=== PATIENT | female | born 1965 | race Caucasian/White ===

== ENCOUNTER 2018-08-04 17:16 | Emergency (ER) | payer OTHER ==
[~2018-08-04] VITALS: Ht 160 cm; Wt 115.7 kg
[~2018-08-04 17:16] MED LIST: ADVAIR 500-501 EACH INH; ALBUTEROL S5 MG/1 ML INH; DIFLUCAN100 MG PO; ENALAPRIL MALEAT5 MG PO; GLIMEPIRIDE4 MG PO; INDOMETHACIN25 MG PO; LEVOXYL150 MCG PO; LIPITOR20 MG PO; METFORMIN HCL500 MG PO; NAPROSYN500 MG PO; PERCOCET 5-3251 EACH PO; PRILOSEC20 MG PO; SINGULAIR10 MG PO; TOPROL XL50 MG PO; TRAMADOL HCL50 MG PO; TRIAMTERENE-HC1 EAC2 PO; VENTOLIN HFA18 GM IH; VISTARIL50 MG PO
--- OUTSIDE RECORDS SUMMARY | 2018-08-04 17:20 | XMS ---
PreManage Notification: [place] MISHRA Security Supervisor Hot Dip Plating Events No recent Security Events currently on file [facility] There are no care providers on record at this time. Saleem has no Care Guidelines for this patient. Kelly VISIT COUNT (12 MO.) 1 [facility] TOTAL 1 NOTE: Visits indicate total known visits. ED/C VISIT TRACKING (12 MO.) 08/04/2018 17:17 [facility] [place] TYPE: Emergency COMPLAINT: - R ANKLE PAIN,INJURY INPATIENT VISIT TRACKING (12 MO.) No inpatient visits to display in this time frame [id number]
[2018-08-04] MEDS ORDERED: GABAPENTIN400 MG PO (17:43)
[2018-08-04] MEDS ORDERED: FERROUS SULFAT325 MG PO (17:43)
[2018-08-04] MEDS ORDERED: DOXAZOSIN MESYLA2 MG PO (17:45)
[2018-08-04] MEDS ORDERED: KETOROLAC TROME10 MG PO (18:36)
== END 2018-08-04 19:30 | disposition home or self-care (01) ==
LOC: ED 17:16
DX: S82.61XA Displaced fracture of lateral malleolus of right fibula, initial encounter for closed fracture (principal); E11.9 Type 2 diabetes mellitus without complications; J45.909 Unspecified asthma, uncomplicated; I10 Essential (primary) hypertension; E03.9 Hypothyroidism, unspecified; Z87.891 Personal history of nicotine dependence; Z88.0 Allergy status to penicillin; Z88.7 Allergy status to serum and vaccine; Z91.013 Allergy to seafood; Z79.899 Other long term (current) drug therapy; Z79.84 Long term (current) use of oral hypoglycemic drugs; X50.9XXA Other and unspecified overexertion or strenuous movements or postures, initial encounter
CPT/HCPCS: 73610; 99283-25

== ENCOUNTER 2019-02-19 18:38 | Emergency (ER) | payer OTHER ==
[~2019-02-19] VITALS: Ht 160 cm; Wt 115.7 kg
[~2019-02-19 18:38] MED LIST changes: +DOXAZOSIN MESYLA2 MG PO; +FERROUS SULFAT325 MG PO; +GABAPENTIN400 MG PO; +KETOROLAC TROME10 MG PO
--- OUTSIDE RECORDS SUMMARY | 2019-02-19 18:40 | XMS ---
PreManage Notification: [place] MISHRA Security Project Administrator Events No recent Security Events currently on file CRITERIA MET - [facility] CELINA Graham PHONE: [phone] Saleem has no Care Guidelines for this patient. Kelly VISIT COUNT (12 MO.) 2 [facility] TOTAL 2 NOTE: Visits indicate total known visits. 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 - Personal history of nicotine dependence - Other and unspecified overexertion or strenuous movements or postures, initial encounter - Allergy to seafood - Unspecified asthma, uncomplicated - Effusion, right ankle - Allergy status to serum and vaccine status - Displaced fracture of lateral malleolus of right fibula, initial encounter for closed fracture - Hypothyroidism, unspecified - Allergy status to penicillin - Other long-term (current) drug therapy INPATIENT VISIT TRACKING (12 MO.) No inpatient visits to display in this time frame [id number]
[2019-02-19] MEDS ORDERED: RANITIDINE HCL300 MG PO (18:56)
[2019-02-19] MEDS ORDERED: PERCOCET 5-3251 EACH PO (20:07)
== END 2019-02-19 20:21 | disposition home or self-care (01) ==
LOC: ED 18:38
DX: S93.401A Sprain of unspecified ligament of right ankle, initial encounter (principal); S90.821A Blister (nonthermal), right foot, initial encounter; I10 Essential (primary) hypertension; E03.9 Hypothyroidism, unspecified; J45.909 Unspecified asthma, uncomplicated; E11.9 Type 2 diabetes mellitus without complications; Z88.0 Allergy status to penicillin; Z91.030 Bee allergy status; Z88.7 Allergy status to serum and vaccine; Z79.84 Long term (current) use of oral hypoglycemic drugs; Z79.899 Other long term (current) drug therapy; X50.1XXA Overexertion from prolonged static or awkward postures, initial encounter
CPT/HCPCS: 73610; 99283

== ENCOUNTER 2019-11-11 11:20 | Inpatient (IN) | payer OTHER ==
[~2019-11-11] VITALS: Ht 160 cm; Wt 125.2 kg
--- OUTSIDE RECORDS SUMMARY | ~2019-11-11 | XMS | Encounter Summary ---
Demographics + + + | Address | [address] | | | [place] [address] | + + + | Home Phone | | + + + | Preferred Language | Unknown | + + + | Marital Status | Legally | + + + | Orthodoxy Affiliation | Unknown | + + + | Race | Unknown | + + + | Ethnic Group | Unknown | + + + Author + + + | Author | [facility] | | | and [place] | + + + | Organization | [facility] | | | and [...] Team Providers + +------+ + | Care Pipe Organ Mechanic Apprentice Name | Role | Phone | + +------+ + | Roberth Gaspar MD | PCP | | + +------+ + Reason for Visit + + + | Reason | Comments | + + + | Medication Refill | | + + + Encounter Details +--------+--------+ + + + | Date | Type | Department | Care Team | Description | +--------+--------+ + + + | 03/03/ | Refill | [facility] [place] | Oc Mooney, | Medication Refill | | 2017 | | PHYSIATRY [address] | MD [address] | | | | | [address] | [place], [place] | | | | | [place], [place] | [address] | | | | | [address] | | | | | | [phone] | | | +--------+--------+ + + + Social History + +-------+ [...] + + documented as of this encounter Plan of Treatment Not on filedocumented as of this encounter Visit Diagnoses Not on filedocumented in this encounter"
--- OUTSIDE RECORDS SUMMARY | ~2019-11-11 | XMS | Encounter Summary ---
Demographics + + + | Address | [address] | | | [place] [address] | + + + | Home Phone | | + + + | Preferred Language | Unknown | + + + | Marital Status | Legally | + + + | Pentecostalism Affiliation | Unknown | + + + | Race | Unknown | + + + | Ethnic Group | Unknown | + + + Author + + + | Author | [facility] | | | and [place] | + + + | Organization | [facility] | | | [...] Team Providers + +------+ + | Care Pot Annealer Name | Role | Phone | + +------+ + | Roberth Gaspar MD | PCP | | + +------+ + Encounter Details +--------+ + + + + | Date | Type | Department | Care Team | Description | +--------+ + + + + | 11/04/ | Orders Only | [facility] | Conversion | | | 2017 | | [facility]Y [place] | Transaction, | | | | | [address] | Provider Unknown | | | | | [address] | [phone] | | | | | [phone] | (Fax) | | | | | [phone] | | | +--------+ + + + [...] | + +--------+ + + + | EXTERNAL LAB: CBC | Routin | 10/16/2017 | | Results for this | | | e | 4:50 PM | | procedure are in the | | | | PDT | | results section. | + +--------+ + + + | LIPID PANEL | Routin | 11/04/2016 | | Results for this | | | e | 12:00 AM | | procedure are in the | | | | PDT | | results section. | + +--------+ + + + | VITAMIN B-12 | Routin | 11/04/2016 | | Results for this | | | e | 12:00 AM | | procedure are in the | | | | PDT | | results section. | + +--------+ + + + | MICROALBUMIN/CREATIN | Routin | 11/04/2016 | | Results for this | | INE RATIO, URINE | e | 12:00 AM | | procedure are in the | | TEST | | PDT | | results section. | + +--------+ + + + | T4, FREE | Routin | 11/04/2016 | | Results for this | | | e | 12:00 AM | | procedure are in the | | | | PDT | | results section. | + +--------+ + + + | HEMOGLOBIN A1C | Routin | 11/04/2016 | | Results for this | | | e | 12:00 AM | | procedure are in the | | | | PDT | | results section. | + +--------+ + + + | FOLATE | Routin | 11/04/2016 | | Results for this | | | e | 12:00 AM | | procedure are in the | | | | PDT | | results section. | + +--------+ + + + | COMPREHENSIVE | Routin | 11/04/2016 | | Results for this | | METABOLIC PANEL | e | 12:00 AM | | procedure are in the | | | | PDT | | results section. | + +--------+ + + + | IRON AND IRON | Routin | 10/30/2016 | | Results for this | | BINDING CAPACITY | e | 12:00 AM | | procedure are in the | | | | PDT | | results section. | + +--------+ + + + | FERRITIN | Routin | 10/30/2016 | | Results for this | | | e | 12:00 AM | | procedure are in the | | | | PDT | | results section. | + +--------+ + + + documented in this encounter Results External Lab: CBC (10/16/2017 4:50 PM PDT) + + + + + + | Component | Value | Ref Range | Performed | Pathologist | | | | | At | Signature | + + + + + + | WBC | 5.43 (A) | 3.8 - 5.1 10 | EXTERNAL | | | | | | LAB | | + + + + + + | Red Blood | 13.2 (A) | 4.5 - 11.0 10 | EXTERNAL | | | Cells | | | LAB | | | Counted | | | | | + + + + + + | Hemoglobin | 12.7 | 12 - 16 g/dL | EXTERNAL | | | | | | LAB | | + + + + + + | Hematocrit, | 40.7 | 35 - 45 % | EXTERNAL | | | POC | | | LAB | | + + + + + + | MCV | 74.9 (A) | 81 - 99 fL | EXTERNAL | | | | | | LAB | | + + + + + + | MCH | 23 (A) | 27 - 33 pg | EXTERNAL | | | | | | LAB | | + + + + + + | MCHC | 31 | 30 - 36 g/dL | EXTERNAL | | | | | | LAB | | + + + + + + | Platelet | 405 | 140 - 440 K/ L | EXTERNAL | | | Count | | | LAB | | | Plasma | | | | | + + + + + + | RDW-CV | 16.5 (A) | 10.5 - 15.0 % | EXTERNAL | | | | | | LAB | | + + + + + + | MPV | | fL | EXTERNAL | | | | | | LAB | | + + + + + + | Differentia | | | EXTERNAL | | | l Type | | | LAB | | + + + + + + | % Segmented | | % | EXTERNAL | | | | | | LAB | | | Neutrophils | | | | | + + + + + + | % | | % | EXTERNAL | | | Lymphocytes | | | LAB | | + + + + + + | % Monocytes | | % | EXTERNAL | | | | | | LAB | | + + + + + + | % | | % | EXTERNAL | | | Eosinophils | | | LAB | | + + + + + + | % Basophils | | % | EXTERNAL | | | | | | LAB | | + + + + + + | Absolute | | / L | EXTERNAL | | | Segmented | | | LAB | | | Neutrophils | | | | | + + + + + + | Absolute | | / L | EXTERNAL | | | Lymphocytes | | | LAB | | + + + + + + | Absolute | | / L | EXTERNAL | | | Monocytes | | | LAB | | + + + + + + | Absolute | | / L | EXTERNAL | | | Eosinophils | | | LAB | | + + + + + + | Absolute | | / L | EXTERNAL | | | Basophils | | | LAB | | + + + + + + + + | Specimen | + + | Blood specimen | | (specimen) | + + + +---------+ + + | Performing | Address | City/State/Zipcode | Phone Number | | Organization | | | | + +---------+ + + | EXTERNAL LAB | | | | + +---------+ + + Microalbumin/Creatinine Ratio, Urine (11/04/2016 12:00 AM PDT) + +-------+ + + + | Component | Value | Ref Range | Performed | Pathologist | | | | | At | Signature | + +-------+ + + + | ALBUMIN/CRE | 12.3 | 0 - 30 | EXTERNAL | | | ATININE | | | LAB | | | RATIO.URINE | | | | | | .ORD.MG/G | | | | | | (NATALIE) | | | | | | | | | | | | | | | | | + +-------+ + + + + + | Specimen | + + | Urine specimen | | (specimen) | + + + +---------+ + + | Performing | Address | City/State/Zipcode | Phone Number | | Organization | | | | + +---------+ + + | EXTERNAL LAB | | | | + +---------+ + + T4, Free (11/04/2016 12:00 AM PDT) + + + + + + | Component | Value | Ref Range | Performed | Pathologist | | | | | At | Signature | + + + + + + | FREE T4 | 1.71 (A) | 0.71 - 1.7 | EXTERNAL | | | (REF) | | | LAB | | + + + + + + + + | Specimen | + + | Blood specimen | | (specimen) | + + + +---------+ + + | Performing | Address | City/State/Zipcode | Phone Number | | Organization | | | | + +---------+ + + | EXTERNAL LAB | | | | + +---------+ + + Hemoglobin A1C (11/04/2016 12:00 AM PDT) + +-------+ + + + | Component | Value | Ref Range | Performed | Pathologist | | | | | At | Signature | + +-------+ + + + | Hemoglobin | 6.0 | % | EXTERNAL | | | A1c | | | LAB | | + +-------+ + + + + + | Specimen | + + | Blood specimen | | (specimen) | + + + +---------+ + + | Performing | Address | City/State/Zipcode | Phone Number | | Organization | | | | + +---------+ + + | EXTERNAL LAB | | | | + +---------+ + + Folate (11/04/2016 12:00 AM PDT) + +-------+ + + + | Component | Value | Ref Range | Performed | Pathologist | | | | | At | Signature | + +-------+ + + + | Folate | 18.09 | | EXTERNAL | | | | | | LAB | | + +-------+ + + + + + | Specimen | + + | Blood specimen | | (specimen) | + + + +---------+ + + | Performing | Address | City/State/Zipcode | Phone Number | | Organization | | | | + +---------+ + + | EXTERNAL LAB | | | | + +---------+ + + Vitamin B-12 (11/04/2016 12:00 AM PDT) + + + + + + | Component | Value | Ref Range | Performed | Pathologist | | | | | At | Signature | + + + + + + | VITAMIN | 209.9 (A) | 211 - 946 | EXTERNAL | | | B-12 | | | LAB | | + + + + + + + + | Specimen | + + | Blood specimen | | (specimen) | + + + +---------+ + + | Performing | Address | City/State/Zipcode | Phone Number | | Organization | | | | + +---------+ + + | EXTERNAL LAB | | | | + +---------+ + + Lipid Panel (11/04/2016 12:00 AM PDT) + +---------+ + + + | Component | Value | Ref Range | Performed | Pathologist | | | | | At | Signature | + +---------+ + + + | Cholesterol | 141 | mg/dL | EXTERNAL | | | | | | LAB | | + +---------+ + + + | Triglycerid | 208 (A) | 30 - 150 mg/dL | EXTERNAL | | | es | | | LAB | | + +---------+ + + + | HDL | 39.9 | mg/dl | EXTERNAL | | | | | | LAB | | + +---------+ + + + | LDL, | 60 | mg/dL | EXTERNAL | | | Calculated | | | LAB | | + +---------+ + + + | LDl/HDL | | | EXTERNAL | | | Ratio | | | LAB | | + +---------+ + + + | Chol/HDL | 3.5 | | EXTERNAL | | | Ratio | | | LAB | | + +---------+ + + + | VLDL | | mg/dL | EXTERNAL | | | | | | LAB | | + +---------+ + + + | Non HDL | | | EXTERNAL | | | Chol. | | | LAB | | | (LDL+VLDL) | | | | | + +---------+ + + + + + | Specimen | + + | Blood specimen | | (specimen) | + + + +---------+ + + | Performing | Address | City/State/Zipcode | Phone Number | | Organization | | | | + +---------+ + + | EXTERNAL LAB | | | | + +---------+ + + Comprehensive Metabolic Panel (11/04/2016 12:00 AM PDT) + +---------+ + + + | Component | Value | Ref Range | Performed | Pathologist | | | | | At | Signature | + +---------+ + + + | Glucose, | 151 (A) | 70 - 100 mg/dL | EXTERNAL | | | Fasting | | | LAB | | + +---------+ + + + | BUN | 16 | 6 - 23 mg/dL | EXTERNAL | | | | | | LAB | | + +---------+ + + + | Creatinine | 0.93 | 0.6 - 1.35 | EXTERNAL | | | | | mg/dL | LAB | | + +---------+ + + + | BUN/Creatin | 17.2 | 6.0 - 28.6 | EXTERNAL | | | ine Ratio | | | LAB | | + +---------+ + + + | Calcium | 8.5 | 8.4 - 10.2 | EXTERNAL | | | | | mg/dL | LAB | | + +---------+ + + + | Protein, | 5.9 (A) | 6.0 - 8.0 g/dL | EXTERNAL | | | Total | | | LAB | | + +---------+ + + + | Albumin | 3.3 (A) | 3.5 - 5.0 | EXTERNAL | | | | | | LAB | | + +---------+ + + + | Globulin | 2.6 | 1.8 - 3.5 | EXTERNAL | | | | | | LAB | | + +---------+ + + + | A/G Ratio | 1.3 | 1.1 - 2.4 | EXTERNAL | | | | | | LAB | | + +---------+ + + + | Bilirubin | 0.3 | 0.0 - 1.2 mg/dL | EXTERNAL | | | Total | | | LAB | | + +---------+ + + + | ALP, | 61 | 31 - 130 | EXTERNAL | | | External | | | LAB | | + +---------+ + + + | ALT | 11 | 7 - 52 U/L | EXTERNAL | | | | | | LAB | | + +---------+ + + + | AST | 10 (A) | 13 - 39 U/L | EXTERNAL | | | | | | LAB | | + +---------+ + + + | Na | 139 | 132 - 143 | EXTERNAL | | | | | mmol/L | LAB | | + +---------+ + + + | K | 4.5 | 3.5 - 5.1 | EXTERNAL | | | | | mmol/L | LAB | | + +---------+ + + + | Cl | 104 | 95 - 112 mmol/L | EXTERNAL | | | | | | LAB | | + +---------+ + + + | CO2 | 22 | 19 - 31 mmol/L | EXTERNAL | | | | | | LAB | | + +---------+ + + + | Anion Gap | 17.5 | 7 - 21 mmol/L | EXTERNAL | | | | | | LAB | | + +---------+ + + + | Estimated | 64 | mg/dL | EXTERNAL | | | GFR | | | LAB | | + +---------+ + + + + + | Specimen | + + | Blood specimen | | (specimen) | + + + +---------+ + + | Performing | Address | City/State/Zipcode | Phone Number | | Organization | | | | + +---------+ + + | EXTERNAL LAB | | | | + +---------+ + + Iron and Iron Binding Capacity (10/30/2016 12:00 AM PDT) + + + + + + | Component | Value | Ref Range | Performed | Pathologist | | | | | At | Signature | + + + + + + | Iron | 18.51 (A) | 37 - 160 | EXTERNAL | | | | | | LAB | | + + + + + + | Iron | 5.5 (A) | 20 - 55 | EXTERNAL | | | Saturation | | | LAB | | + + + + + + | TIBC | 339 | 245 - 400 | EXTERNAL | | | | | | LAB | | + + + + + + + + | Specimen | + + | Blood specimen | | (specimen) | + + + +---------+ + + | Performing | Address | City/State/Zipcode | Phone Number | | Organization | | | | + +---------+ + + | EXTERNAL LAB | | | | + +---------+ + + Ferritin (10/30/2016 12:00 AM PDT) + +-------+ + + + | Component | Value | Ref Range | Performed | Pathologist | | | | | At | Signature | + +-------+ + + + | Ferritin, | 18.08 | 13 - 150 ng/mL | EXTERNAL | | | External | | | LAB | | + +-------+ + + + + + | Specimen | + + | Blood specimen | | (specimen) | + + + +---------+ + + | Performing | Address | City/State/Zipcode | Phone Number | | Organization | | | | + +---------+ + + | EXTERNAL LAB | | | | + +---------+ + + documented in this encounter Visit Diagnoses Not on filedocumented in this encounter"
--- OUTSIDE RECORDS SUMMARY | ~2019-11-11 | XMS | Encounter Summary ---
Demographics + + + | Address | [address] | | | [place] [address] | + + + | Home Phone | | + + + | Preferred Language | Unknown | + + + | Marital Status | Legally | + + + | Restorationist Affiliation | Unknown | + + + | Race | Unknown | + + + | Ethnic Group | Unknown | + + + Author + + + | Author | [facility] | | | and [place] | + + + | Organization | [facility] | | | and [...] Team Providers + +------+ + | Care Systems Support Specialist Name | Role | Phone | + +------+ + | Roberth Gaspar MD | PCP | | + +------+ + Reason for Visit + + + | Reason | Comments | + + + | Medication Refill | | + + + Encounter Details +--------+ + + + + | Date | Type | Department | Care Team | Description | +--------+ + + + + | 05/18/ | Telephone | [facility] [place] | Oc Mooney, | Medication Refill | | 2017 | | PHYSIATRY [address] | MD [address] | | | | | [address] | [place], [place] | | | | | [place], [place] | [address] | | | | | [address] | | | | | | [phone] | | | +--------+ + + + [...]
--- OUTSIDE RECORDS SUMMARY | ~2019-11-11 | XMS | Encounter Summary ---
Demographics + + + | Address | [address] | | | [place] [address] | + + + | Home Phone | | + + + | Preferred Language | Unknown | + + + | Marital Status | Legally | + + + | Scientologist Affiliation | Unknown | + + + | Race | Unknown | + + + | Ethnic Group | Unknown | + + + Author + + + | Author | [facility] | | | and [place] | + + + | Organization | [facility] | | | [...] Providers + +------+ + | Care Medical Supervisor Name | Role | Phone | + +------+ + | Roberth Gaspar MD | PCP | | + +------+ + Encounter Details +--------+ + + + + | Date | Type | Department | Care Team | Description | +--------+ + + + + | 11/04/ | Orders Only | [facility] | Conversion | | | 2017 | | [facility]PH[facility]OLOGY [place] | Transaction, | | | | | [address] | Provider Unknown | | | | | [address] | [phone] | | | | | [address] | (Fax) | | | | | [phone] | | | +--------+ + + + [...]
--- OUTSIDE RECORDS SUMMARY | ~2019-11-11 | XMS | Encounter Summary ---
Demographics + + + | Address | [address] | | | [place] [address] | + + + | Home Phone | | + + + | Preferred Language | Unknown | + + + | Marital Status | Legally | + + + | Mosque Affiliation | Unknown | + + + | Race | Unknown | + + + | Ethnic Group | Unknown | + + + Author + + + | Author | [facility] | | | and [place] | + + + | Organization | [facility] | | [...] Team Providers + +------+ + | Care Comb Capper Name | Role | Phone | + +------+ + | Roberth Gaspar MD | PCP | | + +------+ + Encounter Details +--------+ + + + + | Date | Type | Department | Care Team | Description | +--------+ + + + + | 09/12/ | Documentati | [facility] | [place], | | | 2019 | on | NEPHROLOGY [place] | Jose Carlos Jha | | | | | [address] | [address] | | | | | [address] | | | | | | [place], [place] | | | | | | [address] | | | | | | [phone] | | | +--------+ + + + [...]
--- OUTSIDE RECORDS SUMMARY | ~2019-11-11 | XMS | Encounter Summary ---
Demographics + + + | Address | [address] | | | [place] [address] | + + + | Home Phone | | + + + | Preferred Language | Unknown | + + + | Marital Status | Legally | + + + | Mosque Affiliation | Unknown | + + + | Race | Unknown | + + + | Ethnic Group | Unknown | + + + Author + + + | Author | [facility] | | | and [place] | + + + | Organization | [facility] | | | [...] Team Providers + +------+ + | Care Route Rider Name | Role | Phone | + [...] | hand | [address] | | | | n | numbness | [address] | [place], | | | | | Hand | [place], | [place] [address] | | | | | weakness | [place] [address] | Phone: | | | | | History of | Phone: | [phone] | | | | | diabetes | [phone] | Fax: | | | | | mellitus | Fax: | [phone] | | | | | Procedures | [phone] | | | | | | DOS [...] 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[place], | | | | | degeneration | [address] | [place] [address] | | | | | , lumbar | [place], | Phone: | | | | | region | [place] | [phone] | | | | | Neuropathy | [address] | Fax: | | | | | | Phone: | [phone] | | | | | | [phone] | | | | | | | Fax: | | | | | | | [phone] | | +--------+--------+ + + + + Encounter Details +--------+---------+ + + + | Date | Type | Department | Care Team | Description | +--------+---------+ + + + | 05/04/ | Office | [facility] | Oc Mooney, | Bilateral hand | | 2015 | Visit | PHYSIATRY [address] | MD [address] | numbness (Primary | | | | [address] | [place] | Dx); Hand weakness; | | | | [place] | [address] | History of diabetes | | | | [address] | | mellitus; Brisk deep | | | | [phone] | | tendon reflexes | +--------+---------+ + [...] finger abduction bilaterally. 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
--- OUTSIDE RECORDS SUMMARY | ~2019-11-11 | XMS | Encounter Summary ---
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[place], | | | | | degeneration | [address] | [place] [address] | | | | | , lumbar | [place], | Phone: | | | | | region | [place] | [phone] | | | | | Neuropathy | [address] | Fax: | | | | | | Phone: | [phone] | | | | | | [phone] | | | | | | | Fax: | | | | | | | [phone] | | +--------+--------+ + + + + Encounter Details +--------+---------+ + + + | Date | Type | Department | Care Team | Description | +--------+---------+ + + + | 05/04/ | Office | [facility] | Oc Mooney, | Bilateral hand | | 2015 | Visit | PHYSIATRY [address] | MD [address] | numbness (Primary | | | | [address] | [place] | Dx); Hand weakness; | | | | [place] | [address] | History of diabetes | | | | [address] | | mellitus; Brisk deep | | | | [phone] | | tendon reflexes | +--------+---------+ + [...] finger abduction bilaterally. There is 4/5 hand associate merchandiser bilaterally Reflexes: 3+ brisk and symmetric over [...]
--- OUTSIDE RECORDS SUMMARY | ~2019-11-11 | XMS | Encounter Summary ---
Demographics + + + | Address | [address] | | | [place] [address] | + + + | Home Phone | | + + + | Preferred Language | Unknown | + + + | Marital Status | Legally | + + + | Jew Affiliation | Unknown | + + + | Race | Unknown | + + + | Ethnic Group | Unknown | + + + Author + + + | Author | [facility] | | | and [place] | + + + | Organization | [facility] | | [...] Team Providers + +------+ + | Care Customer Program Manager Name | Role | Phone | + +------+ + | Roberth Gaspar MD | PCP | | + +------+ + Encounter Details +--------+ + + + + | Date | Type | Department | Care Team | Description | +--------+ + + + + | 09/12/ | Orders Only | [facility] | Cesar Hart MD | Essential | | 2020 | | NEPHROLOGY [place] | [address] | hypertension, benign | | | | [address] | [address] [place], [place] | (Primary Dx); CKD | | | | [address] | [address] | (chronic kidney | | | | [place], [place] | | disease), stage III | | | | [address] | | (HCC) | | | | [phone] | | | +--------+ + + + [...]
--- OUTSIDE RECORDS SUMMARY | ~2019-11-11 | XMS | Encounter Summary ---
Demographics + + + | Address | [address] | | | [place] [address] | + + + | Home Phone | | + + + | Preferred Language | Unknown | + + + | Marital Status | Legally | + + + | Episcopalian Affiliation | Unknown | + + + | Race | Unknown | + + + | Ethnic Group | Unknown | + + + Author + + + | Author | [facility] | | | and [place] | + + + | Organization | [facility] | | [...] Team Providers + +------+ + | Care Bad Work Gatherer Name | Role | Phone | + [...] 2015 | | PHYSIATRY [address] | [address] | | | | | [address] | [place] | | | | | [place] | [address] | | | | | [address] | | | | | | [phone] | | | +--------+ + + + [...]
--- OUTSIDE RECORDS SUMMARY | ~2019-11-11 | XMS | Clinical Summary ---
Demographics + + + | Address | [address] | | | [place] [address] | + + + | Home Phone | | + + + | Preferred Language | Unknown | + + + | Marital Status | Legally | + + + | Latter-Day Affiliation | Unknown | + + + | Race | Unknown | + + + | Ethnic Group | Unknown | + + + Author + + + | Author | [facility] | | | and [place] | + + + | Organization | [facility] | | [...] Team Providers + +------+ + | Care Waterworks Chief Engineer Name | Role | Phone | [...] | | + + + +---------+------+------+-------+ | enalapril | Take 5 mg by mouth | | 0 | | | Activ | | (VASOTEC) 5 mg | Daily. | | | | | e | | tablet | | | | | | | + + + +---------+------+------+-------+ | raNITIdine | Take 300 mg by mouth | | 0 | | | Activ | | (ZANTAC) [...] | + + + +---------+------+------+-------+ | albuterol | Inhale 2 puffs into | | 0 | | | Activ | | (VENTOLIN HFA) 90 | the lungs every 6 | | | | | e | | mcg/puff inhaler | hours as needed for | | | | | | | | Wheezing. | | | | | | + + + +---------+------+------+-------+ | metFORMIN | Take 1,000 mg by | | 0 | | | Activ | | (GLUCOPHAGE) 500 mg | mouth 2 times daily | | | | | e | | tablet | (with breakfast & | | | | | | | | dinner). | | | | | | + + + +---------+------+------+-------+ | | Inhale 1 puff into | | 0 | | | Activ | | fluticasone-salmeter | the lungs Twice | | | | | e | | ol (ADVAIR) 500-50 | Daily. | | | | | | | mcg/puff diskus | | | | | | | | inhaler | | | | | | | + + + +---------+------+------+-------+ | | Take 1 tablet by | | 0 | | | Activ | | triamterene-hydrochl | mouth Daily. | | | | | e | | orothiazide | | | | | | | | (MAXZIDE) 75-50 mg | | | | | | | | per tablet | | | | | | | + + + +---------+------+------+-------+ | silver | Apply topically | | 0 | | | Activ | | sulfADIAZINE | Daily. | | | | | e | | (SILVADENE) 1% cream | | | | | | | + + + +---------+------+------+-------+ | levothyroxine | Take 176 mcg by | | 0 | | | Activ | | (SYNTHROID, | mouth every morning | | | | | e | | LEVOTHROID) 88 mcg | (before breakfast). | | | | | | | tablet | | | | | | | + + + +---------+------+------+-------+ | | Take 1 tablet by | | 0 | | | Activ | | oxyCODONE-acetaminop | mouth every 8 hours | | | | | e | | hen (PERCOCET) 5-325 | as needed for Pain. | | | | | | | mg per tablet | | | | | | | + + + +---------+------+------+-------+ | nystatin | as needed. | | 0 | 04/0 | | Activ | | (MYCOSTATIN) cream | | | | 4/20 | | e | | | | | | 17 | | [...] | + + + +---------+------+------+-------+ | | Apply topically 2 | | 0 | | | Activ | | clotrimazole-betamet | (two) times daily. | | | | | e | | hasone (LOTRISONE) | | | | | | | | cream | | | | | | | + + + +---------+------+------+-------+ | ferrous sulfate | Take 65 mg of iron | | 0 | | | Activ | | 324 (65 Fe) MG EC | by mouth daily with | | | | | e | | tablet | breakfast. | | | | [...] | | + + + +---------+------+------+-------+ | ALPRAZolam (XANAX) | take 1 to 2 tablets | | 0 | 01/2 | | Activ | | 0.25 mg tablet | by mouth prior to | | | 9/20 | | e | | | procedure | | | 19 | | | + + + +---------+------+------+-------+ | atorvaSTATin | take 1 tablet by | | 0 | 05/2 | | Activ | | (LIPITOR) 10 mg | mouth once daily | | | 20 | | e | | tablet | | | | 19 | | | + + + +---------+------+------+-------+ | | take 1 tablet by | | 0 | 06/3 | | Activ | | sulfamethoxazole-tri | mouth twice a day | | | 0/20 | | e | | methoprim (BACTRIM | | | | 19 | | | | DS) 800-160 mg per | | | | | | | | tablet [...] + + + +---------+------+------+-------+ | DULoxetine | Take 20 mg by mouth | | 0 | | | Activ | | (CYMBALTA) [address] | Daily. | | | | | e | | capsule | | | | | | | + + + +---------+------+------+-------+ Active Problems + + + | Problem | Noted Date | + + + | Reactive airways [...] + | 09/12/ | Orders Only | Nephrology | Cesar Hart MD | Essential | | 2019 | | | | hypertension, benign | | | | | | (Primary Dx); CKD | | | | | | (chronic kidney | | | | | | disease), stage III | | | | | | (HCC) | +--------+ + + + + | 09/12/ | Documentati | Nephrology | Jarrett, | | | 2019 | on | | Jose Carlos Jha | | | | | | Core Driller | | +--------+ + + + + from Last 3 Months Family History + + +------+ + | [...] recent travel history available. | + + Last Filed Vital Signs + + + + + | Vital Sign | Reading | Time Taken | Comments | + + + + + | Blood Pressure | 132/76 | 02/24/2018 3:02 PM | | | | | PDT | | + + + + + | Pulse | 97 | 02/24/2018 3:02 PM | | | | | PDT | | + + + + + | Temperature | 37 C (98.6 F) | 02/24/2018 3:02 PM | | | | | PDT | | + + + + + | Respiratory Rate | 18 | 01/05/2017 4:26 PM | | | | | PDT | | + + + + + | Oxygen Saturation | - | - | | + + + + + | Inhaled Oxygen | - | - | | | Concentration | | | | + + + + + | Weight | 119.7 kg (264 lb) | 02/24/2018 3:02 PM | | | | | PDT | | + + + + + | Height | 160 cm (5' 3") | 02/24/2018 3:02 PM | | | | | PDT | | + + + + + | Body Mass Index | 46.77 | 02/24/2018 3:02 PM | | | | | PDT | | + + + + + Plan of Treatment + + + + + | Health Maintenance | Due Date | Last Done | Comments | + + + + + | Vaccine: | | | | | Pneumococcal 19-64 | 3 | | | | (1 of 1 - PPSV23) | | | | + + + + + | Vaccine: | | | | | Dtap/Tdap/Td (1 - | 8 | | | | Tdap) | | [...] A1c | | 11/04/2016 | | | Screening | 7 | [...] filefrom Last 3 Months Insurance + +--------+ +--------+ [...] | [employer] | [employer] | [id number] | 06/28/19 | [phone] | | Medica | | MEDICAID HMO [...] | + +--------+ +--------+ + + | Petra Dangelo | Person | Self | [birth year] | | [address] | | | al/Christofer | | 1965 | [phone] | [place] | | | [place] | | | 2 (Home) | [address] | + +--------+ +--------+ + + Advance Directives + + + + + | Type | Date Recorded | Patient | Explanation | | | | Environmental Maintenance Worker | | + + + + + | Power of | | | | | Station Supervisor | | | | + + + + + | Advance | | | | | Directive | | | | + + + + +
--- OUTSIDE RECORDS SUMMARY | ~2019-11-11 | XMS | Clinical Summary ---
Demographics + + + | Address | [address] | | | [place] [address] | + + + | Home Phone [...] + | Author | [facility] | | | and [place] | + + + | Organization | [facility] | | | and [...] Team Providers + +------+ + | Care Wireless Team Member Name | Role | Phone | + [...] Jha | | | | | | Coldfusion | | +--------+ + + + + [...] | [employer] | [employer] | [id number] | 06/28/19 | [phone] | | Medica [...] [place] | | | 2 (Home) | [address] | + +--------+ +--------+ + + Advance Directives + + + + + | Type | Date Recorded | Patient | Explanation | | | | Core Finisher | | + + + + + | Power of | | | | | Lumpia Wrapper Maker | | | | + + + + + | Advance | | | | | Directive | | | | + + + + +
--- OUTSIDE RECORDS SUMMARY | ~2019-11-11 | XMS | Encounter Summary ---
Demographics + + + | Address | [address] | | | [place] [address] | + + + | Home Phone | | + + + | Preferred Language | Unknown | + + + | Marital Status | Legally | + + + | Adventist Affiliation | Unknown | + + + | Race | Unknown | + + + | Ethnic Group | Unknown | + + + Author + + + | Author | [facility] | | | and [place] | + + + | Organization | [facility] | | | [...] Team Providers + +------+ + | Care Grass Farmer Name | Role | Phone | + +------+ + | Roebrth Gaspar MD | PCP | | + +------+ + Encounter Details +--------+ + + + + | Date | Type | Department | Care Team | Description | +--------+ + + + + | 01/22/ | Orders Only | [facility] | Provider, | | | 2019 | | SYSTEM GENERIC OP | MD [address] | | | | | [address] | [place] | | | | | [address] [place], [place] | [place] [address] | | | | | [address] | | | | | | [phone] | | | +--------+ + + + [...]
--- OUTSIDE RECORDS SUMMARY | ~2019-11-11 | XMS | Encounter Summary ---
Demographics + + + | Address | [address] | | | [place] [address] | + + + | Home Phone | | + + + | Preferred Language | Unknown | + + + | Marital Status | Legally | + + + | Yazidism Affiliation | Unknown | + + + | Race | Unknown | + + + | Ethnic Group | Unknown | + + + Author + + + | Author | [facility] | | | and [place] | + + + | Organization | [facility] [...] Team Providers + +------+ + | Care Organ Recovery Coordinator Name | Role | Phone | + +------+ + | No, Unknownpcp | PCP | | + +------+ + Encounter Details +--------+ + + + + | Date | Type | Department | Care Team | Description | +--------+ + + + + | 01/07/ | [facility] | [facility] | Mookie Bustamante, | | | 2012 - | Encounter | MED CTR MED ONC | [address] | | | | | [address] | [place] | | | 01/11/ | | [place] [address] | [address] | | | 2012 | | [phone] | | | +--------+ + + + [...] Mookie Bustamante MD - 01/11/2013 9:47 [place] [address] Patient Name: PHOENIX DANGELO Provider: Mookie Bustamante MD Unit #: [id number] Location: [address] [place] [address] #: [id number] : 1965 ADMISSION DATE: 01/07/2013 DISCHARGE DATE: [...] was admitted to the hospital by Dr. Wes. She saw Dr. Cor lidya, chain pegger, who did beside debridement. He recommended that [...] was to have her go home with [place] home infusions. However, the patient says her father will not allow that. Thus, she will be going to the [facility] e. I did speak with Dr. Noe Gaspar on the phone on 01/10/2013. She needs to fol low up with him but she also should have the chain pegger to see her and I would say within s ix days. Ideally, you could have the chain pegger come to the alf. Check with Dr. Noe Gaspar which chain pegger he wants her to see. She has seen a chain pegger in the [facility]. DISPOSITION: The patient to be discharged to the alf in improved condition. DIET: Will be diabetic, low fat, low cholesterol. She should work with physical therapy and if you have a wound care nurse as well. She can ambulate but I would have her minimize pressure on her right forefoot where she has the [facility] er. CODE STATUS: FULL CODE. MEDICATIONS [...] Hypoglycemia protocol. We have one here but alf might have one but we include d ours. Glucoscans before meals. Again, she needs close followup with Dr. Noe Gaspar as well as contact Dr. Noe Jara [facility]'s office for which chain pegger to see and ideally the chain pegger should start seeing he r at the alf and have your wound care team see her as well in the alf. Time of discharge more than 30 minutes. DICTATED BY: Mookie Bustamante MD Internal Medicine JOB #: [id number] EXT JOB #:[id number] cc: Dr Noe Gaspar in [facility] <<Signature on File>> Mookie Bustamante MD0 01/13/13 [...] Performed At | + + + | [facility] | [place] | | Department [address] [facility] | [facility] | | [ rep [address]] [ rep [facility] | | [facility]] Signed | - IMAGING | | | | | Patient Name: PHOENIX DANGELO Physician: | | | SANDI.01 : 1965 Age: 47 Sex: F Unit #: [id number] | | | Exam Date: 01/10/13 Location: [address] [place] [place] [address] | | | Report #: [id number] Page: | | | %(RAD)RES..mtdd.print.filter("pg") of %(RAD) | | | RES..mtdd.print.filter("tpg") | | | | | | Accession Number: [id number]; [id number]; | | | [id number], [id number] PICC | | | LINE PLACEMENT CLINICAL [...] Transcribed | | | Date/Time: 01/10/2013 17:07 Psychology Professor: TRINY | | | <<Signature on File>> | | | Campbell | | | Eloise Ocasio MD01/11/13 1032 <Electronically signed by Campbell Navas | | | Amarjit KAPLAN> Campbell Ocasio MD 01/11/13829 | | | Psychology Professor: Chantel Qypqxabozkomn54/17/13829 | | | | | + + + + + + + + | Performing | Address | City/State/Zipcode | Phone Number | | Organization | | | | + + + + + | [facility] | [address] | [place] | [phone] | | [facility] | | [address] | | | - IMAGING | | | | + + + + + XR Chest PA or AP (01/11/2013 8:30 AM PDT) + + | Specimen | + + | | + + + + + | Narrative | Performed At | + + + | [facility] | [place] | | Department [address] [facility] | [facility] | | [ rep ct street1+2] [ rep [facility] | | st zip] Signed | - IMAGING | | | | | Patient Name: PHOENIX DANGELO Physician: | | | RAS. : 1965 Age: 47 Sex: F Unit #: [id number] | | | Exam Date: 01/10/13 Location: [address] [place] [address] | | | Report #: [id number] Page: | | | %(RAD)RES..mtdd.print.filter("pg") of %(RAD) | | | RES..mtdd.print.filter("tpg") | | | | | | Accession Number: [id number]; [id number]; | | | [id number], [id number], [id number], [id number] PICC | | | LINE PLACEMENT CLINICAL [...] Transcribed | | | Date/Time: 01/10/2013 17:07 Psychology Professor: | | | <<Signature on File>> | | | Paul Hightower | | | Eloise Ocasio MD01/11/13 1032 <Electronically signed by Campbell Navas | | | Amarjit KAPLAN> Campbell Ocasio MD 01/11/13 8981 | | | Psychology Professor: Chantel Rkcfejmduwicl20/17/13 0830 | | | | | + + + + + + + + | Performing | Address | City/State/Zipcode | Phone Number | | Organization | | | | + + + + + | [facility] | [address] | [place] | [phone] | | [facility] | | [address] | | | - IMAGING | | | | + + + + + XR Chest PA or AP (01/11/2013 8:30 AM PDT) + + | Specimen | + + | | + + + + + | Narrative | Performed At | + + + | [facility] | [place] | | Department [address] [facility] | [facility] | | [ rep ct street1+2] [ rep [facility] | | st zip] Signed | - IMAGING | | | | | Patient Name: PHOENIX DANGELO Physician: | | | SANDI.01 : 1965 Age: 47 Sex: F Unit #: [id number] | | | Exam Date: 01/10/13 Location: [address] [place] [address] | | | Report #: [id number] Page: | | | %(RAD)RES..mtdd.print.filter("pg") of %(RAD) | | | RES..mtdd.print.filter("tpg") | | | | | | Accession Number: [id number]; [id number]; | | | [id number], [id number], [id number], [id number] PICC | | | LINE PLACEMENT CLINICAL [...] Transcribed | | | Date/Time: 01/10/2013 17:07 Psychology Professor: | | | <<Signature on File>> | | | Campbell | | | Eloise Ocasio MD01/11/13 1032 <Electronically signed by Campbell Navas | | | Amarjit KAPLAN> Campbell Ocasio MD 01/11/13829 | | | Psychology Professor: [employer] Aqdknsfoglova08/17/13 0830 | | | | | + + + + + + + + | Performing | Address | City/State/Zipcode | Phone Number | | Organization | | | | + + + + + | [facility] | [address] | [place], [place] | [phone] | | [facility] | | [address] | | | - IMAGING | | | | + + + + + XR Chest PA or AP (01/10/2013 3:18 PM PDT) + + | Specimen | + + | | + + + + + | Narrative | Performed At | + + + | [facility] | [place] | | Department [address] [place] [address] | [facility] | | [ rep ct [address]] [ rep [facility] | | [facility]] Signed | - IMAGING | | | | | Patient Name: RAJESHSOLITARIOROMYPHOENIX Kilpatrick Physician: | | | CORDELIA. : 1965 Age: 47 Sex: F Unit #: [id number] | | | Exam Date: 01/10/13 Location: [address] [place] [address] | | | Report #: [id number] Page: | | | %(RAD)RES..mtdd.print.filter("pg") of %(RAD) | | | RES..mtdd.print.filter("tpg") | | | | | | Accession Number: [id number] | | | [id number], [id number], [id number] PICC LINE PLACEMENT | | | CLINICAL [...] Transcribed Date/Time: 01/10/2013 17:07 | | | Psychology Professor: <<Signature on File>> | | | | | | Campbell Ocasio MD01/10/13 4814 <Electronically signed by Campbell Navas | | | Amarjit KAPLAN> Campbell Ocasio MD 01/10/13 7620 | | | Psychology Professor: [employer] Capgifbsgqriv61/16/13 9383 | | | | | + + + + + + + + | Performing | Address | City/State/Zipcode | Phone Number | | Organization | | | | + + + + + | [facility] | [address] | [place] | [phone] | | [facility] | | [address] | | | - IMAGING | | [...] + | [facility] | [address] | [place] | [phone] | | [facility] | | [address] | | | - LABORATORY | | | | + + + + + | [facility] | [address] | [place] | | | [facility] | | [address] | | | - LABORATORY [...] | >60Comment: For | >60 mL/min/A | [facility] | | | GFR | -Americans, | [...] + | [facility] | [address] | [place], [place] | [phone] | | [facility] | | [address] | | | - LABORATORY | | | | + + + + + | [facility] | [address] | [place], [place] | | | [facility] | | [address] | | | - LABORATORY [...] + | [facility] | [address] | [place], [place] | [phone] | | [facility] | | [address] | | | - LABORATORY | | | | + + + + + | [facility] | [address] | [place], [place] | | | [facility] | | [address] | | | - LABORATORY [...] + | [facility] | [address] | [place], [place] | [phone] | | [facility] | | [address] | | | - LABORATORY | | | | + + + + + | [facility] | [address] | [place], [place] | | | [facility] | | [address], [facility] | | | - LABORATORY | | [...] + | [facility] | [address] | [place], [place] | [phone] | | [facility] | | [address] | | | - LABORATORY | | | | + + + + + | [facility] | [address] | [place], [place] | | | [facility] | | [address] [place] [address] | | | - LABORATORY | | [...] + | [facility] | [address] | [place] | [phone] | | [facility] | | [address] | | | - LABORATORY | | | | + + + + + | [facility] | [address] | [place], [place] | | | [facility] | | [address], [facility] | | | - LABORATORY | | [...] + | [facility] | [address] | [place], [place] | [phone] | | [facility] | | [address] | | | - LABORATORY | | | | + + + + + | [facility] | [address] | [place], [place] | | | [facility] | | Critical access hospital, [facility] | | | - LABORATORY | | [...] + | [facility] | [address] | [place] | [phone] | | [facility] | | [address] | | | - LABORATORY | | | | + + + + + | [facility] | [address] | [place] | | | [facility] | | [address] | | | - LABORATORY [...] [address] | [place] | [phone] | | [facility] | | [address] | | | - LABORATORY | | | | + + + + + | [facility] | [address] | [place] | | | [facility] | | [address], [facility] | | | - LABORATORY | | [...] + | [facility] | [address] | [place], [place] | [phone] | | [facility] | | [address] | | | - LABORATORY | | | | + + + + + | [facility] | [address] | [place], [place] | | | [facility] | | [id number] [place] [address] | | | - LABORATORY | | [...] | | | | | | [place] | | | | | | Rifampin [...] | | | | | | Standards [place] | | | | | | Rifampin [...] + | [facility] | [address] | [place] | [phone] | | [facility] | | [address] | | | - LABORATORY | | | | + + + + + | [facility] | [address] | [place] | | | [facility] | | [id number] [place] [address] | | | - LABORATORY | | | | + + + + + documented in this encounter Visit Diagnoses Not on filedocumented in this encounter
--- OUTSIDE RECORDS SUMMARY | ~2019-11-11 | XMS | Encounter Summary ---
Demographics + + + | Address | [address] | | | [place] [address] | + + + | Home Phone | | + + + | Preferred Language | Unknown | + + + | Marital Status | Legally | + + + | Episcopal Affiliation | Unknown | + + + | Race | Unknown | + + + | Ethnic Group | Unknown | + + + Author + + + | Author | [facility] | | | and [place] | + + + | Organization | [facility] | | [...] Team Providers + +------+ + | Care Scientific Glass Blower Name | Role | Phone | + +------+ + | Roberth Gaspar MD | PCP | | + +------+ + Encounter Details +--------+ + + + + | Date | Type | Department | Care Team | Description | +--------+ + + + + | 01/22/ | Orders Only | [facility] | Provider, | | | 2019 | | SYSTEM GENERIC OP | MD [address] | | | | | [address] | [place] | | | | | [address] [place], [place] | [place] [address] | | | | | [address] | | | | | | [phone] | | | +--------+ + + + [...]
--- OUTSIDE RECORDS SUMMARY | ~2019-11-11 | XMS | Encounter Summary ---
Demographics + + + | Address | [address] | | | [place] [address] | + + + | Home Phone | | + + + | Preferred Language | Unknown | + + + | Marital Status | Legally | + + + | Druze Affiliation | Unknown | + + + | Race | Unknown | + + + | Ethnic Group | Unknown | + + + Author + + + | Author | [facility] | | | and [place] | + + + | Organization | [facility] | | | and [...] Team Providers + +------+ + | Care Gas Meter Repairer Name | Role | Phone | [...] + + | 01/05/ | Office | [facility] [place] | Oc Mooney, | Peripheral | | 2017 | Visit | PHYSIATRY [address] | MD [address] | polyneuropathy | | | | [address] | [place], [place] | (Primary Dx); | | | | [place], [place] | [address] | Neuropathic pain; | | | | [address] | | Vitamin B12 | | | | [phone] | | deficiency; Angular | | | [...] encounter Patient Instructions Patient Instructions Donna Jara, Correctional Medicine Physician - 01/05/2017 4:00 PM PDTBegin the consumption [...] has no apparent deficits with short or rat exterminator memory. The cranial nerves appear grossly intact. Subjective sensory change in both hands, unchanged compared to 10/06/2016. 4/5 hand inspector missile bilaterally. Remainder of strength normal in major [...]
--- OUTSIDE RECORDS SUMMARY | ~2019-11-11 | XMS | Encounter Summary ---
Demographics + + + | Address | [address] | | | [place] [address] | + + + | Home Phone [...] Providers + +------+ + | Care Supervisor Pumping Station Name | Role | Phone | + +------+ + | Roberth Gaspar MD | PCP | | + +------+ + Encounter Details +--------+ + + + + | Date | Type | Department | Care Team | Description | +--------+ + + + + | 10/27/ | Orders Only | [facility] | Cesar Hart MD | | | 2018 | | NEPHROLOGY [place] | [address] [facility] | | | | | [address] | [address] [place], [place] | | | | | [address] [place], [place] | [address] | | | | | [address] | | | | | | [phone] | | | +--------+ + + + [...]
--- OUTSIDE RECORDS SUMMARY | ~2019-11-11 | XMS | Clinical Summary ---
Demographics + + + | Address | [address] | | | [place] [address] | + + + | Home Phone | | + + + | Preferred Language | Unknown | + + + | Marital Status | Single | + + + | Advent Affiliation | Unknown | + + + | Race | Unknown | + + + | Ethnic Group | Unknown | + + + Author + + + | Author | [facility] (Historical as of | | | 02-11-19) | + + + | Organization | [facility] (Historical as of | | | 02-11-19) | + + + | Address | Unknown | + + + | Phone | Unavailable | + + + Support +---------+ +---------+ + | Name | Relationship | Address | Phone | +---------+ +---------+ + | Kobe,Milana | ECON | Unknown | | +---------+ +---------+ + Care Team Providers + +------+ + | Care Drill Bit Sharpener Name | Role | Phone | + [...] CKD (chronic kidney disease), stage III ([facility] | 11/08/2017 | + + + | [...] +------+-------+ + | MEDICAID | [place] | [id number] | | | [address] | | | N | | | | [place] | | | [place] | | | | [address] | | | 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
--- OUTSIDE RECORDS SUMMARY | ~2019-11-11 | XMS | Encounter Summary ---
Demographics + + + | Address | [address] | | | [place] [address] | + + + | Home Phone | | + + + | Preferred Language | Unknown | + + + | Marital Status | Legally | + + + | Sikhism Affiliation | Unknown | + + + | Race | Unknown | + + + | Ethnic Group | Unknown | + + + Author + + + | Author | [facility] | | | and [place] | + + + | Organization | [facility] | | | [...] Team Providers + +------+ + | Care Custom Car Builder Name | Role | Phone | + +------+ + | Roberth Gaspar MD | PCP | | + +------+ + Encounter Details +--------+ + + + + | Date | Type | Department | Care Team | Description | +--------+ + + + + | 10/27/ | Orders Only | [facility] | Cesar Hart MD | | | 2018 | | NEPHROLOGY [place] | [address] [facility] | | | | | [address] | [address] [place], [place] | | | | | [address] [place], [place] | [address] | | | | | [address] | | | | | | [phone] | | | +--------+ + + + [...]
--- OUTSIDE RECORDS SUMMARY | ~2019-11-11 | XMS | Encounter Summary ---
Demographics + + + | Address | [address] | | | [place] [address] | + + + | Home Phone [...] Team Providers + +------+ + | Care Oracle Ebs Architect Name | Role | Phone | + +------+ + | No, Unknownpcp | PCP | | + +------+ + Encounter Details +--------+ + + + + | Date | Type | Department | Care Team | Description | +--------+ + + + + | 01/07/ | [facility] | [facility] | Mookie Bustamante, | | | 2012 - | Encounter | MED CTR MED ONC | [address] | | | | | [address] | [place] | | | 01/11/ | | [place] [address] | [address] | | | 2012 | | [phone] | | | +--------+ + + + [...] Mookie Bustamante MD - 01/11/2013 9:47 [place] [address] Patient Name: PHOENIX DANGELO Provider: Mookie Bustamante MD Unit #: [id number] Location: [address] [place] [address] #: [id number] : 1965 ADMISSION DATE: 01/07/2013 DISCHARGE DATE: [...] Dr. Wes. She saw Dr. Cor lidya, arts and humanities council director, who did beside debridement. He recommended that [...] was to have her go home with [facility]. However, the patient says her father will not allow that. Thus, she will be going to the [facility] e. I did speak with Dr. Noe Gaspar on the phone on 01/10/2013. She needs to fol low up with him but she also should have the arts and humanities council director to see her and I would say within s ix days. Ideally, you could have the arts and humanities council director come to the intermediate. Check with Dr. Noe Gaspar which arts and humanities council director he wants her to see. She has seen a arts and humanities council director in the [facility]. DISPOSITION: The patient to be discharged to the intermediate in improved condition. DIET: Will be diabetic, low fat, low cholesterol. She should work with physical therapy and if you have a wound care nurse as well. She can ambulate but I would have her minimize pressure on her right forefoot where she has the [facility] er. CODE STATUS: FULL CODE. MEDICATIONS 1. [...] as well as contact Dr. Noe Jara [facility]'s office for which arts and humanities council director to see and ideally the arts and humanities council director should start seeing he r at the intermediate and have your wound care team see her as well in the intermediate. Time of discharge more than 30 minutes. DICTATED BY: Mookie Bustamante MD Internal Medicine JOB #: [id number] EXT JOB #:[id number] cc: Dr Noe Gaspar in [facility] <<Signature on File>> Mookie Bustamante MD0 [...] Performed At | + + + | [facility] Diagnostic Imaging | [facility] | | Department [address] [facility] | [facility] | | [ rep [address]] [ rep [facility] | | [facility]] Signed | - IMAGING | | | | | Patient Name: PHOENIX DANGELO Physician: | | | SANDI.01 : 1965 Age: 47 Sex: F Unit #: [id number] | | | Exam Date: 01/10/13 Location: [address] [place] [address] | | | Report #: [id number] Page: | | | %(RAD)RES..mtdd.print.filter("pg") of %(RAD) | | | RES..mtdd.print.filter("tpg") | | | | | | Accession Number: [id number]; [id number]; | | | [id number], [id number], [id number], [id number] PICC | | | LINE PLACEMENT CLINICAL [...] Transcribed | | | Date/Time: 01/10/2013 17:07 Commercial Fisher: TRINY | | | <<Signature on File>> | | | Campbell | | | Eloise Ocasio MD01/11/13 1032 <Electronically signed by Campbell Navas | | | Amarjit KAPLAN> Campbell Ocasio MD 01/11/138[address] | | | Commercial Fisher: Chantel Ahnlrqqicxdqy55/17/13829 | | | | | + + + + + + + + | Performing | Address | City/State/Zipcode | Phone Number | | Organization | | | | + + + + + | [facility] | [address] | [place] | [phone] | | [facility] | | [address] | | | - IMAGING | | | | + + + + + XR Chest PA or AP (01/11/2013 8:30 AM PDT) + + | Specimen | + + | | + + + + + | Narrative | Performed At | + + + | [facility] Diagnostic [facility] | [facility] | | Department [address] [facility] | [facility] | | [ rep ct street1[address]] [ rep [facility] | | st zip] Signed | - IMAGING | | | | | Patient Name: PHOENIX DANGELO Physician: | | | RAS. : 1965 Age: 47 Sex: F Unit #: [id number] | | | Exam Date: 01/10/13 Location: [address] [place] [address] | | | Report #: [id number] Page: | | | %(RAD)RES..mtdd.print.filter("pg") of %(RAD) | | | RES..mtdd.print.filter("tpg") | | | | | | Accession Number: [id number]; [id number]; | | | [id number], [id number], [id number], [id number] PICC | | | LINE PLACEMENT CLINICAL [...] Transcribed | | | Date/Time: 01/10/2013 17:07 Commercial Fisher: | | | <<Signature on File>> | | | Paul Hightower | | | Eloise Ocasio MD01/11/13 1032 <Electronically signed by Campbell Navas | | | Amarjit KAPLAN> Campbell Ocasio MD 01/11/13 3704 | | | Commercial Fisher: Chantel Kblfuzkbktxta11/17/13 0830 | | | | | + + + + + + + + | Performing | Address | City/State/Zipcode | Phone Number | | Organization | | | | + + + + + | [facility] | [address] | [place] | [phone] | | [facility] | | [address] | | | - IMAGING | | | | + + + + + XR Chest PA or AP (01/11/2013 8:30 AM PDT) + + | Specimen | + + | | + + + + + | Narrative | Performed At | + + + | [facility] | [facility] | | Department [address] [facility] | [facility] | | [ rep ct street1+2] [ rep [facility] | | st zip] Signed | - IMAGING | | | | | Patient Name: PHOENIX DANGELO Physician: | | | SANDI.01 : 1965 Age: 47 Sex: F Unit #: [id number] | | | Exam Date: 01/10/13 Location: [address] [place] [address] | | | Report #: [id number] Page: | | | %(RAD)RES..mtdd.print.filter("pg") of %(RAD) | | | RES..mtdd.print.filter("tpg") | | | | | | Accession Number: [id number]; [id number]; | | | [id number], [id number], [id number], [id number] PICC | | | LINE PLACEMENT CLINICAL [...] Transcribed | | | Date/Time: 01/10/2013 17:07 Commercial Fisher: | | | <<Signature on File>> | | | Campbell | | | Eloise Ocasio MD01/11/13 1032 <Electronically signed by Campbell Navas | | | Amarjit KAPLAN> Campbell Ocasio MD 01/11/138[address] | | | Commercial Fisher: apiOmatx Xsciaaidaadea12/17/13 0830 | | | | | + + + + + + + + | Performing | Address | City/State/Zipcode | Phone Number | | Organization | | | | + + + + + | [facility] | [address] | [place], [place] | [phone] | | [facility] | | [address] | | | - IMAGING | | | | + + + + + XR Chest PA or AP (01/10/2013 3:18 PM PDT) + + | Specimen | + + | | + + + + + | Narrative | Performed At | + + + | [facility] | [facility] | | Department [address] [place] [address] | [facility] | | [ rep ct street1+[address]] [ rep [facility] | | [facility]] Signed | - IMAGING | | | | | Patient Name: RAJESHSOLITARIOROMYPHOENIX Kilpatrick Physician: | | | CORDELIA. : 1965 Age: 47 Sex: F Unit #: [id number] | | | Exam Date: 01/10/13 Location: [address] [place] [address] | | | Report #: [id number] Page: | | | %(RAD)RES..mtdd.print.filter("pg") of %(RAD) | | | RES..mtdd.print.filter("tpg") | | | | | | Accession Number: [id number] | | | [id number], [id number], [id number], [id number] PICC LINE PLACEMENT | | | CLINICAL [...] Transcribed Date/Time: 01/10/2013 17:07 | | | Commercial Fisher: <<Signature on File>> | | | | | | Campbell Ocasio MD01/10/13 3331 <Electronically signed by Campbell Navas | | | Amarjit KAPLAN> Campbell Ocasio MD 01/10/13 5651 | | | Commercial Fisher: apiOmatnahomi Msprlswnxewdh32/16/13 3275 | | | | | + + + + + + + + | Performing | Address | City/State/Zipcode | Phone Number | | Organization | | | | + + + + + | [facility] | [address] | [place] | [phone] | | [facility] | | [address] | | | - IMAGING | | [...] + | [facility] | [address] | [place] | [phone] | | [facility] | | [address] | | | - LABORATORY | | | | + + + + + | [facility] | [address] | [place] | | | [facility] | | [address] | | | - LABORATORY [...] | >60Comment: For | >60 mL/min/A | [facility] | | | GFR | -Americans, | [...] + | [facility] | [address] | [place], [place] | [phone] | | [facility] | | [address] | | | - LABORATORY | | | | + + + + + | [facility] | [address] | [place], [place] | | | [facility] | | [address] | | | - LABORATORY [...] + | [facility] | [address] | [place], [place] | [phone] | | [facility] | | [address] | | | - LABORATORY | | | | + + + + + | [facility] | [address] | [place], [place] | | | [facility] | | [email or web address] | | | - LABORATORY | | [...] + | [facility] | [address] | [place], [place] | [phone] | | [facility] | | [address] | | | - LABORATORY | | | | + + + + + | [facility] | [address] | [place], [place] | | | [facility] | | [address], [facility] | | | - LABORATORY | [...] + | [facility] | [address] | [place], [place] | [phone] | | [facility] | | [address] | | | - LABORATORY | | | | + + + + + | [facility] | [address] | [place], [place] | | | [facility] | | [address] [place] [address] | | | - LABORATORY | | [...] + | [facility] | [address] | [place] | [phone] | | [facility] | | [address] | | | - LABORATORY | | | | + + + + + | [facility] | [address] | [place], [place] | | | [facility] | | [address], [facility] | | | - LABORATORY | [...] + | [facility] | [address] | [place], [place] | [phone] | | [facility] | | [address] | | | - LABORATORY | | | | + + + + + | [facility] | [address] | [place], [place] | | | [facility] | | [facility], [facility] | | | - LABORATORY | [...] + | [facility] | [address] | [place] | [phone] | | [facility] | | [address] | | | - LABORATORY | | | | + + + + + | [facility] | [address] | [place] | | | [facility] | | [address] | | | - LABORATORY [...] [address] | [place] | [phone] | | [facility] | | [address] | | | - LABORATORY | | | | + + + + + | [facility] | [address] | [place] | | | [facility] | | [address], [facility] | | | - LABORATORY | [...] + | [facility] | [address] | [place], [place] | [phone] | | [facility] | | [address] | | | - LABORATORY | | | | + + + + + | [facility] | [address] | [place], [place] | | | [facility] | | [id number] [place] [address] | | | - LABORATORY | | [...] | | | | | | [place] | | | | | | Rifampin [...] | | | | | | [place] | | | | | | Rifampin [...] + | [facility] | [address] | [place] | [phone] | | [facility] | | [address] | | | - LABORATORY | | | | + + + + + | [facility] | [address] | [place] | | | [facility] | | [id number] [place] [address] | | | - LABORATORY | | | | + + + + + documented in this encounter Visit Diagnoses Not on filedocumented in this encounter
--- OUTSIDE RECORDS SUMMARY | ~2019-11-11 | XMS | Encounter Summary ---
Demographics + + + | Address | [address] | | | [place] [address] | + + + | Home Phone [...] Team Providers + +------+ + | Care Airworthiness Inspector Name | Role | Phone | + [...] PHYSIATRY [address] | MD [address] | | | | | [address] | [place] | | | | | [place], [place] | [address] | | | | | [address] | | | | | | [phone] | | | +--------+ + + + [...]
--- OUTSIDE RECORDS SUMMARY | ~2019-11-11 | XMS | Encounter Summary ---
Demographics + + + | Address | [address] | | | [place] [address] | + + + | Home Phone [...] Team Providers + +------+ + | Care Protozoologist Name | Role | Phone | + +------+ + | Roberth Gaspar MD | PCP | | + +------+ + Encounter Details +--------+ + + + + | Date | Type | Department | Care Team | Description | +--------+ + + + + | 11/04/ | Orders Only | [facility] | Conversion | | | 2017 | | NEPHROLOGY [place] | Transaction, | | | | | [address] | Provider Unknown | | | | | [address] [place] | [phone] | | | | | [address] | (Fax) | | | | | [phone] | | | +--------+ + + + [...]
--- OUTSIDE RECORDS SUMMARY | ~2019-11-11 | XMS | Encounter Summary ---
Demographics + + + | Address | [address] | | | [place] [address] | + + + | Home Phone [...] + + + | Author | [facility] | | | and [place] | + + + | Organization | [facility] | | | and [...] Team Providers + +------+ + | Care Supply Room Clerk Name | Role | Phone | + +------+ + | Roberth Gaspar MD | PCP | | + +------+ + Encounter Details +--------+ + + + + | Date | Type | Department | Care Team | Description | +--------+ + + + + | 09/12/ | Documentati | [facility] | [place], | | | 2019 | on | NEPHROLOGY [place] | Jose Carlos Jha | | | | | [address] | [address] | | | | | [address] | | | | | | [place], [place] | | | | | | [address] | | | | | | [phone] | | | +--------+ + + + [...]
--- OUTSIDE RECORDS SUMMARY | ~2019-11-11 | XMS | Encounter Summary ---
Demographics + + + | Address | [address] | | | [place] [address] | + + + | Home Phone | | + + + | Preferred Language | Unknown | + + + | Marital Status | Legally | + + + | Lutheran Affiliation | Unknown | + + + [...] Team Providers + +------+ + | Care Pattern And Chain Maker Name | Role | Phone | + +------+ + PCP | Unavailable | + +------+ + Encounter Details +--------+ + + + + | Date | Type | Department | Care Team | Description | +--------+ + + + + | 01/06/ | Emergency | [facility] | Greyson Hernandez, | | | 2012 - | | MEDICAL CENTER | MD [address] | | | | | EMERGENCY CENTER | [place] [address] | | | 01/07/ | | [address] | [phone] | | | 2012 | | [place], [place] | | | | | | [address] | | | | | | [phone] | | | +--------+ + + + [...]
--- OUTSIDE RECORDS SUMMARY | ~2019-11-11 | XMS | Clinical Summary ---
Demographics + + + | Address | [address] | | | [place] [address] | + + + | Home Phone [...] Team Providers + +------+ + | Care Stock Plan Administrator Name | Role | Phone | [...] Jha | | | | | | Arbitrator | | +--------+ + + + + [...] | [employer] | [employer] | [id number] | 06/28/19 | [phone] | | Medica [...] charlie | | | 2 (Home) | [address] | + +--------+ +--------+ + + Advance Directives + + + + + | Type | Date Recorded | Patient | Explanation | | | | Bank President | | + + + + + | Power of | | | | | Machine Setup Operator | | | | + + + + + | Advance | | | | | Directive | | | | + + + + +
--- OUTSIDE RECORDS SUMMARY | ~2019-11-11 | XMS | Encounter Summary ---
Demographics + + + | Address | [address] | | | [place] [address] | + + + | Home Phone [...] Team Providers + +------+ + | Care Pigment And Lacquer Mixer Name | Role | Phone | + [...] | hand | [address] | | | | n | numbness | [address] | [place], | | | | | Hand | [place], | [place] [address] | | | | | weakness | [place] [address] | Phone: | | | | | History of | Phone: | [phone] | | | | | diabetes | [phone] | Fax: | | | | | mellitus | Fax: | [phone] | | | | | Procedures | [phone] | | | | | | DOS [...] | PHYSIATRY [address] | [address] | polyneuropathy | | | | [address] | [place] | (Primary Dx); | | | | [place], [place] | [address] | Bilateral hand | | | | [address] | | numbness; Hand | | | | [phone] | | weakness; History of | | [...] might be different fro m the original. 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 She reports numbness in both feet [...] to mid-forelegs bilaterally. She has 4/5 hand deep fryer assembler strength bilaterally. The remainder of strength is [...]
--- OUTSIDE RECORDS SUMMARY | ~2019-11-11 | XMS | Encounter Summary ---
Demographics + + + | Address | [address] | | | [place] [address] | + + + | Home Phone [...] Team Providers + +------+ + | Care Program Rep Name | Role | Phone | + [...] | hand | [address] | | | | n | numbness | [address] | [place], | | | | | Hand | [place], | [place] [address] | | | | | weakness | [place] [address] | Phone: | | | | | History of | Phone: | [phone] | | | | | diabetes | [phone] | Fax: | | | | | mellitus | Fax: | [phone] | | | | | Procedures | [phone] | | | | | | DOS [...] | PHYSIATRY [address] | [address] | polyneuropathy | | | | [address] | [place] | (Primary Dx); | | | | [place], [place] | [address] | Bilateral hand | | | | [address] | | numbness; Hand | | | | [phone] | | weakness; History of | | [...] might be different fro m the original. 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 She reports numbness in both feet [...] to mid-forelegs bilaterally. She has 4/5 hand furnace process plant operator strength bilaterally. The remainder of strength is [...]
--- OUTSIDE RECORDS SUMMARY | ~2019-11-11 | XMS | Encounter Summary ---
Demographics + + + | Address | [address] | | | [place] [address] | + + + | Home Phone | | + + + | Preferred Language | Unknown | + + + | Marital Status | Legally | + + + | Alevism Affiliation | Unknown | + + + | Race | Unknown | + + + | Ethnic Group | Unknown | + + + Author + + + | Author | [facility] | | | and [place] | + + + | Organization | [facility] | | [...] Team Providers + +------+ + | Care Account Advisor Name | Role | Phone | + [...] + + | 01/05/ | Office | [facility] [place] | Oc Mooney, | Peripheral | | 2017 | Visit | [address]YSIATRY [address] | MD [address] | polyneuropathy | | | | [address] | [place], [place] | (Primary Dx); | | | | [place], [place] | [address] | Neuropathic pain; | | | | [address] | | Vitamin B12 | | | | [phone] | | deficiency; Angular | | | [...] encounter Patient Instructions Patient Instructions Donna Jara, Yacht Master - 01/05/2017 4:00 PM PDTBegin the consumption [...] bianka y much vegetables as she should. Ptera Dangelo indicates that she does not eat [...] has no apparent deficits with short or oil heaterman memory. The cranial nerves appear grossly intact. Subjective sensory change in both hands, unchanged compared to 10/06/2016. 4/5 hand culture manager bilaterally. Remainder of strength normal in major [...]
--- OUTSIDE RECORDS SUMMARY | ~2019-11-11 | XMS | Encounter Summary ---
Demographics + + + | Address | [address] | | | [place] [address] | + + + | Home Phone [...] Team Providers + +------+ + | Care Chief Knowledge Officer Name | Role | Phone | + +------+ + | Roberth Gaspar MD | PCP | | + +------+ + Encounter Details +--------+ + + + + | Date | Type | Department | Care Team | Description | +--------+ + + + + | 09/12/ | Orders Only | [facility] | Cesar Hart MD | Essential | | 2020 | | NEPHROLOGY [place] | [address] | hypertension, benign | | | | [address] | [address] [place], [place] | (Primary Dx); CKD | | | | [address] | [address] | (chronic kidney | | | | [place], [place] | | disease), stage III | | | | [address] | | (HCC) | | | | [phone] | | | +--------+ + + + [...]
--- OUTSIDE RECORDS SUMMARY | ~2019-11-11 | XMS | Encounter Summary ---
Demographics + + + | Address | [address] | | | [place] [address] | + + + | Home Phone | | + + + | Preferred Language | Unknown | + + + | Marital Status | Legally | + + + | Restoration Affiliation | Unknown | + + + [...] Team Providers + +------+ + | Care Licensed Land Surveyor Name | Role | Phone | + [...] PHYSIATRY [address] | MD [address] | | | | | [address] | [place], [place] | | | | | [place], [place] | [address] | | | | | [address] | | | | | | [phone] | | | +--------+ + + + [...]
--- OUTSIDE RECORDS SUMMARY | ~2019-11-11 | XMS | Encounter Summary ---
Demographics + + + | Address | [address] | | | [place] [address] | + + + | Home Phone [...] + + + | Author | [facility] | | | and [place] | + + + | Organization | [facility] | | | [...] Team Providers + +------+ + | Care Payroll Tax Analyst Name | Role | Phone | [...] | hand | [address] | | | | n | numbness | [address] | [place], | | | | | Hand | [place], | [place] [address] | | | | | weakness | [place] [address] | Phone: | | | | | History of | Phone: | [phone] | | | | | diabetes | [phone] | Fax: | | | | | mellitus | Fax: | [phone] | | | | | Procedures | [phone] | | | | | | DOS [...] | PHYSIATRY [address] | [address] | polyneuropathy | | | | [address] | [place] | (Primary Dx); | | | | [place], [place] | [address] | Bilateral hand | | | | [address] | | numbness; Hand | | | | [phone] | | weakness; History of | | [...] might be different fro m the original. 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 She reports numbness in both feet [...] to mid-forelegs bilaterally. She has 4/5 hand special educator strength bilaterally. The remainder of strength is [...]
--- OUTSIDE RECORDS SUMMARY | ~2019-11-11 | XMS | Encounter Summary ---
Demographics + + + | Address | [address] | | | [place] [address] | + + + | Home Phone [...] Team Providers + +------+ + | Care Used Car Lot Porter Name | Role | Phone | + +------+ + | Roberth Gaspar MD | PCP | | + +------+ + Encounter Details +--------+ + + + + | Date | Type | Department | Care Team | Description | +--------+ + + + + | 01/22/ | Orders Only | [facility] | Provider, | | | 2019 | | SYSTEM GENERIC OP | MD [address] | | | | | [address] | [place] | | | | | [address] [place], [place] | [place] [address] | | | | | [address] | | | | | | [phone] | | | +--------+ + + + [...]
--- OUTSIDE RECORDS SUMMARY | ~2019-11-11 | XMS | Clinical Summary ---
Demographics + + + | Address | [address] | | | [place] [address] | + + + | Home Phone | | + + + | Preferred Language | Unknown | + + + | Marital Status | Single | + + + | Druze Affiliation | Unknown | + + + | Race | Unknown | + + + | Ethnic Group | Unknown | + + + Author + + + | Author | [facility] (Historical as of | | | 02-11-19) | + + + | Organization | [facility] (Historical as of | | | 02-11-19) | + + + | Address | Unknown | + + + | Phone | Unavailable | + + + Support +---------+ +---------+ + | Name | Relationship | Address | Phone | +---------+ +---------+ + | Kobe,Milnaa | ECON | Unknown | | +---------+ +---------+ + Care Team Providers + +------+ + | Care Event Services Manager Name | Role | Phone | [...] | CKD (chronic kidney disease), stage III ([facility]) | 11/08/2017 | + + + | [...] +------+-------+ + | MEDICAID | [place] | [id number] | | | [address] | | | N | | | | [place] | | | [place] | | | | [address] | | | GAME AND FISH PROTECTOR | | | | | + +--------+ [...] | Self | [birth year] | Home: | [address] | | | al/Christofer | | 1964 | [phone] | [place] | | | charlie | | | [phone] | [address] | + +--------+ +--------+ + +
--- OUTSIDE RECORDS SUMMARY | ~2019-11-11 | XMS | Encounter Summary ---
Demographics + + + | Address | [address] | | | [place] [address] | + + + | Home Phone [...] + + + | Author | [facility] | | | and [place] | + + + | Organization | [facility] | | [...] Team Providers + +------+ + | Care Kid Club Attendant Name | Role | Phone | [...] + + | 01/05/ | Office | [facility] [place] | Oc Mooney, | Peripheral | | 2017 | Visit | [address]YSIATRY [address] | MD [address] | polyneuropathy | | | | [address] | [place], [place] | (Primary Dx); | | | | [place], [place] | [address] | Neuropathic pain; | | | | [address] | | Vitamin B12 | | | | [phone] | | deficiency; Angular | | | [...] encounter Patient Instructions Patient Instructions Donna Jara, Care Team Coordinator Scheduler - 01/05/2017 4:00 PM PDTBegin the consumption [...] no apparent deficits with short or terminal system operator memory. The cranial nerves appear grossly intact. Subjective sensory change in both hands, unchanged compared to 10/06/2016. 4/5 hand reinforcing rod layer bilaterally. Remainder of strength normal in major [...] she had any questions or medication s ujstine effects. 4. Alcohol consuption was also dicussed [...]
--- OUTSIDE RECORDS SUMMARY | ~2019-11-11 | XMS | Encounter Summary ---
Demographics + + + | Address | [address] | | | [place] [address] | + + + | Home Phone [...] Team Providers + +------+ + | Care Portable Machine Sander Name | Role | Phone | + +------+ + | No, Unknownpcp | PCP | | + +------+ + Encounter Details +--------+ + + + + | Date | Type | Department | Care Team | Description | +--------+ + + + + | 01/07/ | [facility] | [facility] | Mookie Bustamante, | | | 2012 - | Encounter | MED CTR MED ONC | [address] | | | | | [address] | [place] | | | 01/11/ | | [place] [address] | [address] | | | 2012 | | [phone] | | | +--------+ + + + [...] Mookie Bustamante MD - 01/11/2013 9:47 [place] [address] Patient Name: PHOENIX DANGELO Provider: Mookie Bustamante MD Unit #: [id number] Location: [address] [place] [address] #: [id number] : 1965 ADMISSION DATE: 01/07/2013 DISCHARGE DATE: [...] Dr. Wes. She saw Dr. Cor lidya, cnc machine operator, who did beside debridement. He [...] was to have her go home with [facility]. However, the patient says her father will not allow that. Thus, she will be going to the [facility] e. I did speak with Dr. Noe Gaspar on the phone on 01/10/2013. She needs to fol low up with him but she also should have the cnc machine operator to see her and I would say within s ix days. Ideally, you could have the cnc machine operator come to the long term. Check with Dr. Noe Gaspar which cnc machine operator he wants her to see. She has seen a cnc machine operator in the [facility]. DISPOSITION: The patient to be discharged to the long term in improved condition. DIET: Will be diabetic, low fat, low cholesterol. She should work with physical therapy and if you have a wound care nurse as well. She can ambulate but I would have her minimize pressure on her right forefoot where she has the [facility] er. CODE STATUS: FULL CODE. MEDICATIONS [...] Hypoglycemia protocol. We have one here but long term might have one but we include d ours. Glucoscans before meals. Again, she needs close followup with Dr. Noe Gaspar as well as contact Dr. Noe Jara [facility]'s office for which cnc machine operator to see and ideally the cnc machine operator should start seeing he r at the long term and have your wound care team see her as well in the long term. Time of discharge more than 30 minutes. DICTATED BY: Mookie Bustamante MD Internal Medicine JOB #: [id number] EXT JOB #:[id number] cc: Dr Noe Gaspar in [facility] <<Signature on File>> Mookie Bustamante [...] Performed At | + + + | [facility] | [facility] | | Department [address] [facility] | [facility] | | [ rep ct [address]] [ rep [facility] | | [facility]] Signed | - IMAGING | | | | | Patient Name: PHOENIX DANGELO Physician: | | | SANDI.01 : 1965 Age: 47 Sex: F Unit #: [id number] | | | Exam Date: 01/10/13 Location: [address] [place] [address] | | | Report #: [id number] Page: | | | %(RAD)RES..mtdd.print.filter("pg") of %(RAD) | | | RES..mtdd.print.filter("tpg") | | | | | | Accession Number: [id number]; [id number]; | | | [id number], [id number], [id number], [id number] PICC | | | LINE PLACEMENT CLINICAL [...] Transcribed | | | Date/Time: 01/10/2013 17:07 Anesthesiology Crna: TRINY | | | <<Signature on File>> | | | Campbell | | | Eloise Ocasio MD01/11/13 1032 <Electronically signed by Campbell Navas | | | Amarjit KAPLAN> Campbell Ocasio MD 01/11/13829 | | | Anesthesiology Crna: Chantel Ftvjkdajlhpvy26/17/13829 | | | | | + + + + + + + + | Performing | Address | City/State/Zipcode | Phone Number | | Organization | | | | + + + + + | [facility] | [address] | [place] | [phone] | | [facility] | | [address] | | | - IMAGING | | | | + + + + + XR Chest PA or AP (01/11/2013 8:30 AM PDT) + + | Specimen | + + | | + + + + + | Narrative | Performed At | + + + | [facility] | [facility] | | Department [address] [facility] | [facility] | | [ rep ct street1+2] [ rep [facility] | | st zip] Signed | - IMAGING | | | | | Patient Name: PHOENIX DANGELO Physician: | | | RAS. : 1965 Age: 47 Sex: F Unit #: [id number] | | | Exam Date: 01/10/13 Location: [address] [place] [address] | | | Report #: [id number] Page: | | | %(RAD)RES..mtdd.print.filter("pg") of %(RAD) | | | RES..mtdd.print.filter("tpg") | | | | | | Accession Number: [id number]; [id number]; | | | [id number], [id number], [id number], [id number] PICC | | | LINE PLACEMENT CLINICAL [...] Transcribed | | | Date/Time: 01/10/2013 17:07 Anesthesiology Crna: | | | <<Signature on File>> | | | Paul Hightower | | | Eloise Ocasio MD01/11/13 1032 <Electronically signed by Campbell Navas | | | Amarjit KAPLAN> Campbell Ocasio MD 01/11/13 1388 | | | Anesthesiology Crna: Chantel Zkmjsdhjijenp27/17/13 0830 | | | | | + + + + + + + + | Performing | Address | City/State/Zipcode | Phone Number | | Organization | | | | + + + + + | [facility] | [address] | [place] | [phone] | | [facility] | | [address] | | | - IMAGING | | | | + + + + + XR Chest PA or AP (01/11/2013 8:30 AM PDT) + + | Specimen | + + | | + + + + + | Narrative | Performed At | + + + | [facility] | [facility] | | Department [address] [facility] | [facility] | | [ rep ct street1+2] [ rep [facility] | | st zip] Signed | - IMAGING | | | | | Patient Name: PHOENIX DANGELO Physician: | | | SANDI.01 : 1965 Age: 47 Sex: F Unit #: [id number] | | | Exam Date: 01/10/13 Location: [address] [place] [address] | | | Report #: [id number] Page: | | | %(RAD)RES..mtdd.print.filter("pg") of %(RAD) | | | RES..mtdd.print.filter("tpg") | | | | | | Accession Number: [id number]; [id number]; | | | [id number], [id number], [id number], [id number] PICC | | | LINE PLACEMENT CLINICAL [...] Transcribed | | | Date/Time: 01/10/2013 17:07 Anesthesiology Crna: | | | <<Signature on File>> | | | Campbell | | | Eloise Ocasio MD01/11/13 1032 <Electronically signed by Campbell Navas | | | Amarjit KAPLAN> Campbell Ocasio MD 01/11/13829 | | | Anesthesiology Crna: Harperlabzx Zfdcnuqzprsza84/17/13 0830 | | | | | + + + + + + + + | Performing | Address | City/State/Zipcode | Phone Number | | Organization | | | | + + + + + | [facility] | [address] | [place], [place] | [phone] | | [facility] | | [address] | | | - IMAGING | | | | + + + + + XR Chest PA or AP (01/10/2013 3:18 PM PDT) + + | Specimen | + + | | + + + + + | Narrative | Performed At | + + + | [facility] | [facility] | | Department [address] [place] [address] | [facility] | | [ rep ct street1[address]] [ rep [facility] | | [facility]] Signed | - IMAGING | | | | | Patient Name: RAJESHSOLITARIOROMYPHOENIX Kilpatrick Physician: | | | CORDELIA. : 1965 Age: 47 Sex: F Unit #: [id number] | | | Exam Date: 01/10/13 Location: [address] [place] [address] | | | Report #: [id number] Page: | | | %(RAD)RES..mtdd.print.filter("pg") of %(RAD) | | | RES..mtdd.print.filter("tpg") | | | | | | Accession Number: [id number] | | | [id number], [id number], [id number], [id number] PICC LINE PLACEMENT | | | CLINICAL [...] Transcribed Date/Time: 01/10/2013 17:07 | | | Anesthesiology Crna: <<Signature on File>> | | | | | | Campbell Ocasio MD01/10/13 6361 <Electronically signed by Campbell Navas | | | Amarjit KAPLAN> Campbell Ocasio MD 01/10/13 5269 | | | Anesthesiology Crna: Harperlabznahomi Okloxznluqbtq97/16/13 8506 | | | | | + + + + + + + + | Performing | Address | City/State/Zipcode | Phone Number | | Organization | | | | + + + + + | [facility] | [address] | [place] | [phone] | | [facility] | | [address] | | | - IMAGING | | [...] + | [facility] | [address] | [place] | [phone] | | [facility] | | [address] | | | - LABORATORY | | | | + + + + + | [facility] | [address] | [place] | | | [facility] | | [address] | | | - LABORATORY | | [...] | >60Comment: For | >60 mL/min/A | [facility] | | | GFR | -Americans, | [...] + | [facility] | [address] | [place], [place] | [phone] | | [facility] | | [address] | | | - LABORATORY | | | | + + + + + | [facility] | [address] | [place], [place] | | | [facility] | | [address] | | | - LABORATORY | | [...] + | [facility] | [address] | [place], [place] | [phone] | | [facility] | | [address] | | | - LABORATORY | | | | + + + + + | [facility] | [address] | [place], [place] | | | [facility] | | [address] | | | - [...] + | [facility] | [address] | [place], [place] | [phone] | | [facility] | | [address] | | | - LABORATORY | | | | + + + + + | [facility] | [address] | [place], [place] | | | [facility] | | [address], [facility] | | | - LABORATORY | [...] + | [facility] | [address] | [place], [place] | [phone] | | [facility] | | [address] | | | - LABORATORY | | | | + + + + + | [facility] | [address] | [place], [place] | | | [facility] | | [address] [place] [address] | | | - LABORATORY | | [...] + | [facility] | [address] | [place] | [phone] | | [facility] | | [address] | | | - LABORATORY | | | | + + + + + | [facility] | [address] | [place], [place] | | | [facility] | | [address], [facility] | | | - LABORATORY | [...] + | [facility] | [address] | [place], [place] | [phone] | | [facility] | | [address] | | | - LABORATORY | | | | + + + + + | [facility] | [address] | [place], [place] | | | [facility] | | [facility], [facility] | | | - LABORATORY | [...] + | [facility] | [address] | [place] | [phone] | | [facility] | | [address] | | | - LABORATORY | | | | + + + + + | [facility] | [address] | [place] | | | [facility] | | [address] | | | - LABORATORY | | [...] | | | | | | [facility] | | | | [...] [address] | [place] | [phone] | | [facility] | | [address] | | | - LABORATORY | | | | + + + + + | [facility] | [address] | [place] | | | [facility] | | [address], [facility] | | | - LABORATORY | [...] + | [facility] | [address] | [place], [place] | [phone] | | [facility] | | [address] | | | - LABORATORY | | | | + + + + + | [facility] | [address] | [place], [place] | | | [facility] | | [id number] [place] [address] | | | - LABORATORY | | [...] | | | | | | Standards Bourbon | | | | | | Rifampin [...] | | | | | | Standards [place] | | | | | | Rifampin [...] + | [facility] | [address] | [place] | [phone] | | [facility] | | [address] | | | - LABORATORY | | | | + + + + + | [facility] | [address] | [place] | | | [facility] | | [id number] [place] [address] | | | - LABORATORY | | | | + + + + + documented in this encounter Visit Diagnoses Not on filedocumented in this encounter
--- OUTSIDE RECORDS SUMMARY | ~2019-11-11 | XMS | Encounter Summary ---
Demographics + + + | Address | [address] | | | [place] [address] | + + + | Home Phone [...] Team Providers + +------+ + | Care Woodworking Craftsman Name | Role | Phone | + +------+ + | Roberth Gaspar MD | PCP | | + +------+ + Encounter Details +--------+ + + + + | Date | Type | Department | Care Team | Description | +--------+ + + + + | 10/27/ | Orders Only | [facility] | Cesar Hart MD | | | 2018 | | NEPHROLOGY [place] | [address] [facility] | | | | | [address] | [address] [place], [place] | | | | | [address] [place], [place] | [address] | | | | | [address] | | | | | | [phone] | | | +--------+ + + + [...]
--- OUTSIDE RECORDS SUMMARY | ~2019-11-11 | XMS | Encounter Summary ---
Demographics + + + | Address | [address] | | | [place] [address] | + + + | Home Phone | | + + + | Preferred Language | Unknown | + + + | Marital Status | Legally | + + + | Anglican Affiliation | Unknown | + + + [...] Providers + +------+ + | Care Supervisor Prepress Name | Role | Phone | + [...] | PHYSIATRY [address] | [address] | | | | | [address] | [place] | | | | | [place] | [address] | | | | | [address] | | | | | | [phone] | | | +--------+ + + + [...]
--- OUTSIDE RECORDS SUMMARY | ~2019-11-11 | XMS | Encounter Summary ---
Demographics + + + | Address | [address] | | | [place] [address] | + + + | Home Phone | | + + + | Preferred Language | Unknown | + + + | Marital Status | Legally | + + + | Moravian Affiliation | Unknown | + + + | Race | Unknown | + + + | Ethnic Group | Unknown | + + + Author + + + | Author | [facility] | | | and [place] | + + + | Organization | [facility] | | | and [...] Team Providers + +------+ + | Care Manual Training Teacher Name | Role | Phone | [...] PHYSIATRY [address] | MD [address] | | | | | [address] | [place], [place] | | | | | [place], [place] | [address] | | | | | [address] | | | | | | [phone] | | | +--------+ + + + [...]
--- OUTSIDE RECORDS SUMMARY | ~2019-11-11 | XMS | Encounter Summary ---
Demographics + + + | Address | [address] | | | [place] [address] | + + + | Home Phone [...] Team Providers + +------+ + | Care Antichecking Iron Worker Name | Role | Phone | [...] PHYSIATRY [address] | MD [address] | | | | | [address] | [place] | | | | | [place], [place] | [address] | | | | | [address] | | | | | | [phone] | | | +--------+ + + + [...]
--- OUTSIDE RECORDS SUMMARY | ~2019-11-11 | XMS | Encounter Summary ---
Demographics + + + | Address | [address] | | | [place] [address] | + + + | Home Phone | | + + + | Preferred Language | Unknown | + + + | Marital Status | Legally | + + + | Caodaism Affiliation | Unknown | + + + | Race | Unknown | + + + | Ethnic Group | Unknown | + + + Author + + + | Author | [facility] | | | and [place] | + + + | Organization | [facility] | | | [...] Team Providers + +------+ + | Care Territory Representative Name | Role | Phone | + [...] | hand | [address] | | | | n | numbness | [address] | [place], | | | | | Hand | [place], | [place] [address] | | | | | weakness | [place] [address] | Phone: | | | | | History of | Phone: | [phone] | | | | | diabetes | [phone] | Fax: | | | | | mellitus | Fax: | [phone] | | | | | Procedures | [phone] | | | | | | DOS [...] 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[place], | | | | | degeneration | [address] | [place] [address] | | | | | , lumbar | [place], | Phone: | | | | | region | [place] | [phone] | | | | | Neuropathy | [address] | Fax: | | | | | | Phone: | [phone] | | | | | | [phone] | | | | | | | Fax: | | | | | | | [phone] | | +--------+--------+ + + + + Encounter Details +--------+---------+ + + + | Date | Type | Department | Care Team | Description | +--------+---------+ + + + | 05/04/ | Office | [facility] | Oc Mooney, | Bilateral hand | | 2015 | Visit | PHYSIATRY [address] | MD [address] | numbness (Primary | | | | [address] | [place] | Dx); Hand weakness; | | | | [place] | [address] | History of diabetes | | | | [address] | | mellitus; Brisk deep | | | | [phone] | | tendon reflexes | +--------+---------+ + [...] finger abduction bilaterally. There is 4/5 hand help desk supervisor bilaterally Reflexes: 3+ brisk and symmetric [...]
--- OUTSIDE RECORDS SUMMARY | ~2019-11-11 | XMS | Encounter Summary ---
Demographics + + + | Address | [address] | | | [place] [address] | + + + | Home Phone | | + + + | Preferred Language | Unknown | + + + | Marital Status | Legally | + + + | Anabaptism Affiliation | Unknown | + + + | Race | Unknown | + + + | Ethnic Group | Unknown | + + + Author + + + | Author | [facility] | | | and [place] | + + + | Organization | [facility] | | | and [...] Team Providers + +------+ + | Care Tool Marker Name | Role | Phone | + +------+ + PCP | Unavailable | + +------+ + Encounter Details +--------+ + + + + | Date | Type | Department | Care Team | Description | +--------+ + + + + | 01/06/ | Emergency | [facility] | Greyson Hernandez, | | | 2012 - | | MEDICAL CENTER | MD [address] | | | | | EMERGENCY CENTER | [place] [address] | | | 01/07/ | | [address] | [phone] | | | 2012 | | [place], [place] | | | | | | [address] | | | | | | [phone] | | | +--------+ + + + [...]
--- OUTSIDE RECORDS SUMMARY | ~2019-11-11 | XMS | Encounter Summary ---
Demographics + + + | Address | [address] | | | [place] [address] | + + + | Home Phone [...] Team Providers + +------+ + | Care Low Pressure Kettle Operator Name | Role | Phone | + +------+ + PCP | Unavailable | + +------+ + Encounter Details +--------+ + + + + | Date | Type | Department | Care Team | Description | +--------+ + + + + | 01/06/ | Emergency | [facility] | Greyson Hernandez, | | | 2012 - | | MEDICAL CENTER | MD [address] | | | | | EMERGENCY CENTER | [place] [address] | | | 01/07/ | | [address] | [phone] | | | 2012 | | [place], [place] | | | | | | [address] | | | | | | [phone] | | | +--------+ + + + [...]
--- OUTSIDE RECORDS SUMMARY | ~2019-11-11 | XMS | Encounter Summary ---
Demographics + + + | Address | [address] | | | [place] [address] | + + + | Home Phone [...] | Author | [facility] | | | and [place] | + + + | Organization | [facility] | | | and [...] Team Providers + +------+ + | Care Roll Contour Grinder Name | Role | Phone | [...] PHYSIATRY [address] | MD [address] | | | | | [address] | [place], [place] | | | | | [place], [place] | [address] | | | | | [address] | | | | | | [phone] | | | +--------+--------+ + + + [...]
--- OUTSIDE RECORDS SUMMARY | ~2019-11-11 | XMS | Encounter Summary ---
Demographics + + + | Address | [address] | | | [place] [address] | + + + | Home Phone [...] Team Providers + +------+ + | Care Fire Patrol Name | Role | Phone | + [...] PHYSIATRY [address] | MD [address] | | | | | [address] | [place] | | | | | [place], [place] | [address] | | | | | [address] | | | | | | [phone] | | | +--------+ + + + [...]
--- OUTSIDE RECORDS SUMMARY | ~2019-11-11 | XMS | Clinical Summary ---
Demographics + + + | Address | [address] | | | [place] [address] | + + + | Home Phone | | + + + | Preferred Language | Unknown | + + + | Marital Status | Single | + + + | Yazidi Affiliation | Unknown | + + + | Race | Unknown | + + + | Ethnic Group | Unknown | + + + Author + + + | Author | [email or web address] (Historical as of | | | 02-11-19) | + + + | Organization | [email or web address] (Historical as of | | | 02-11-19) | + + + | Address | Unknown | + + + | Phone | Unavailable | + + + Support +---------+ +---------+ + | Name | Relationship | Address | Phone | +---------+ +---------+ + | Kobe,Milana | ECON | Unknown | | +---------+ +---------+ + Care Team Providers + +------+ + | Care Dry Kiln Operator Helper Name | Role | Phone [...] | CKD (chronic kidney disease), stage III ([facility]) | 11/08/2017 | + + + | [...] +------+-------+ + | MEDICAID | [place] | [id number] | | | [address] | | | N | | | | [place] | | | [place] | | | | [address] | | | COMMERCIAL DIRECTOR | | | | | + +--------+ [...] | Self [birth year] | Home: | [address] | | | al/Christofer | | 1964 | [phone] | [place] | | | charlie | | | [phone] | [address] | + +--------+ +--------+ + +
--- OUTSIDE RECORDS SUMMARY | ~2019-11-11 | XMS | Encounter Summary ---
Demographics + + + | Address | [address] | | | [place] [address] | + + + | Home Phone [...] Providers + +------+ + | Care Hand Rigger Name | Role | Phone | + [...] PHYSIATRY [address] | MD [address] | | | | | [address] | [place], [place] | | | | | [place], [place] | [address] | | | | | [address] | | | | | | [phone] | | | +--------+--------+ + + + [...]
--- OUTSIDE RECORDS SUMMARY | ~2019-11-11 | XMS | Encounter Summary ---
Demographics + + + | Address | [address] | | | [place] [address] | + + + | Home Phone | | + + + | Preferred Language | Unknown | + + + | Marital Status | Legally | + + + | Mormon Affiliation | Unknown | + + + [...] Team Providers + +------+ + | Care Day Care Supervisor Name | Role | Phone | [...] | | | [address] | Hospitalist Medical Director | | | | | [address] | | | | | | [place], [place] | | | | | | [address] | | | | | | [phone] | | | +--------+ + + + [...]
--- OUTSIDE RECORDS SUMMARY | ~2019-11-11 | XMS | Encounter Summary ---
Demographics + + + | Address | [address] | | | [place] [address] | + + + | Home Phone [...] Team Providers + +------+ + | Care Laundromat Worker Name | Role | Phone | + +------+ + | Roberth Gaspar MD | PCP | | + +------+ + Encounter Details +--------+ + + + + | Date | Type | Department | Care Team | Description | +--------+ + + + + | 09/12/ | Orders Only | [facility] | Cesar Hart MD | Essential | | 2020 | | NEPHROLOGY [place] | [address] | hypertension, benign | | | | [address] | [address] [place], [place] | (Primary Dx); CKD | | | | [address] | [address] | (chronic kidney | | | | [place], [place] | | disease), stage III | | | | [address] | | (HCC) | | | | [phone] | | | +--------+ + + + [...]
--- OUTSIDE RECORDS SUMMARY | ~2019-11-11 | XMS | Encounter Summary ---
Demographics + + + | Address | [address] | | | [place] [address] | + + + | Home Phone [...] Team Providers + +------+ + | Care Kitchen Runner Name | Role | Phone | + [...] | PHYSIATRY [address] | [address] | | | | | [address] | [place] | | | | | [place] | [address] | | | | | [address] | | | | | | [phone] | | | +--------+ + + + [...]
[~2019-11-11 11:20] MED LIST changes: +RANITIDINE HCL300 MG PO
--- OUTSIDE RECORDS SUMMARY | 2019-11-11 11:24 | XMS ---
PreManage Notification: [place] MISHRA Security Senior Mechanical Technician Events No recent Security Events currently on file CRITERIA MET - Group Notification - [facility] - Has Care Guidelines - PDMP CARE PROVIDERS [facility] 08/05/2018-Scott Graham PHONE: [phone] Saleem has no Care Guidelines for this patient. Care History Medical/Surgical 02/23/2019 [facility] CAUTION PRESCRIBING NARCOTICS - PATIENT IS UNDER PAIN PLAN WITH PCP DR CELINA ROJAS IF PATIENT NEEDS PAIN MED ACUTELY - GIVE 2-3 DAYS WORTH RX, THEN PATIENT IS TO CONTACT PCP FOR FURTHER MEDS.\T\nbsp; DO NOT TELL HER TO TAKE MORE OF WHAT SHE IS CURRENTLY ON.\T\nbsp; THIS WAS DIRECT WISH OF PCP. Kelly VISIT COUNT (12 MO.) 2 [facility] TOTAL 2 NOTE: Visits indicate total known visits. ED/UCC VISIT TRACKING (12 MO.) 11/11/2019 11:21 [facility] [place] TYPE: Emergency COMPLAINT: - BACK PAIN, SOB 02/19/2019 18:39 [facility] [place] TYPE: Emergency COMPLAINT: - FOOT INJ DIAGNOSES: - Sprain of unspecified ligament of right ankle, initial encoun - Hypothyroidism, unspecified - senior living (current) use of oral hypoglycemic drugs - Allergy status to penicillin - Unspecified asthma, uncomplicated - Essential (primary) hypertension - Bee allergy status - Overexertion from prolonged static or awkward postures, initi - Pain in right ankle and joints of right foot - Other mcc (current) drug therapy - Allergy status to serum and vaccine status - Blister (nonthermal), right foot, initial encounter - Type 2 diabetes mellitus without complications INPATIENT VISIT TRACKING (12 MO.) No inpatient visits to display in this time frame [id number]
[2019-11-11] MEDS ORDERED: PREDNISONE10 MG PO (11:38)
[2019-11-11] MEDS ORDERED: OXYCODONE HCL5 MG PO (11:38)
--- NOTE | 2019-11-11 19:30 | NUR ---
PT REPORT RECIEVED FROM ED RN, CARE OF PATIENT ASSUMED AT THIS TIME. PT TRANSPORTED TO CCU VIA STRETCHER ON 3 L OM AND WHEAT CLEANER. PT UNABLE TO MOVE HERSELF FROM STRETCHER TO BED DUE TO SHORTNESS OF BREATH AND SEVERE BACK PAIN.
--- NOTE | 2019-11-11 20:15 | NUR ---
URINALRY CATHETER INSERTED. WELL TOLERATED BY PT.
--- NOTE | 2019-11-11 20:30 | NUR ---
PT ASSESSMENT COMPLETED AT THIS TIME. PT LUNGS SOUND COARSE WITH EXPIRATORY WHEEZES THROUGHOUT. PT RR =18 AND LABORED. OXYGEN SATURATIONS AT 100 PERCENT ON 3 L NC. PLACED ON 2 L NC AT THIS TIME. PT HAS A PITCHEAL RASH ON BILATERAL FEET, LEGS, AND ARMS. PT REPORTS THE RASH APPEARED IN THE LAST WEEK. PT COMPLAINS OF SEVERE UPPER BACK PAIN SHE RATES 8/10 WHICH INCREASED WITH COUGHING FITS. PAIN MEDICATION ADMINISTERED. CALL LIGHT WITHIN REACH, IV FULIDS INFUSING. WILL CONTINUE TO MONITOR BREATHING AND PAIN MANAGEMENT.
--- NOTE | 2019-11-11 21:30 | NUR ---
ASSISTED PT WITH REPOSITIONING IN BED. PT REMAINS DIAPHORETIC. GIVEN A FAN FOR COMFORT. PT HAS BEEN COUGHING UP THICK BROWNISH COLORED SPUTUM. REPORTS SHE IS STILL PAINFUL IN HER CHEST FROM COUGHING.
--- NOTE | 2019-11-11 22:30 | NUR ---
PT RESTING WITH EYES CLOSED. NO DISTRESS NOTED. SPO2 98 % ON 2 L NC. RR=18, NON LABORED BREATHING AT THIS TIME. CALL LIGHT AND BELONGINGS WITHIN REACH. NO FURTHER NEEDS AT THIS TIME.
--- NOTE | 2019-11-11 23:30 | NUR ---
RESPONDED TO PT CALL LIGHT. PT COMPLAINS OF 8/10 PAIN IN BACK AND RUQ ABD PAIN THAT WORSENS WITH COUGH. PRN MEDICATION GIVEN. PT REPOSITIONED ON TO LEFT SIDE FOR COMFORT. PT SATURATIONS REMAIN 96-100 PERCENT ON 2 L NC. RR= 18. CALL LIGHT WITHIN REACH. WILL CONTINUE TO CLOSELY MONITOR.
--- NOTE | 2019-11-12 00:18 | NUR ---
IN ROOM FOR ASSESSMENT. PT CONTINUES TO HAVE PAIN IN BACK AND UNDER LEFT BREAST. SHE STATES NOW THE PAIN IS TRAVEL ACROSS HER UPPER ABD. PRN MEDICATION GIVEN ( SEE EMAR). PT GIVEN WARM PACK TO PLACE UNDER RIGHT BREAST FOR COMFORT. PRN BREATHING TREATMENT GIVEN WELL. PT RR HAS INCREASED INTO THE MID 20'S. PT CRYING OUT IN PAIN INTERMITTENTLY. ASSISTED WITH REPOSITIONING. WILL CONTINUE TO CLOSELY MONITOR.
--- NOTE | 2019-11-12 00:45 | NUR ---
PT CRYING OUT IN PAIN. STATES HER PAIN LEVEL HAS NOT IMPROVED. PT TEARFUL. PRN MEDICATION GIVEN AT THIS TIME.
--- NOTE | 2019-11-12 01:21 | NUR ---
PT CONTINUES TO CRY OUT IN PAIN. NOTIFIED. ORDERS RECIEVED.
--- NOTE | 2019-11-12 03:03 | NUR ---
PT CRYING OUT IN PAIN. PRN PAIN MEDICATION ADMINISTERED AT THIS TIME ( SEE EMAR).
--- NOTE | 2019-11-12 04:00 | NUR ---
PT RESTING WITH EYES CLOSED BREATHING EVEN AND UNLABORED. HR 120 AT REST.
--- NOTE | 2019-11-12 05:36 | NUR ---
IN ROOM FOR ASSESSMENT AND PAIN MEDICATION ADMINISTRATION. PT NOW STATES PAIN IS IN MID RIGHT ABD. PAINFUL WITH PALPATION OR EVEN GENTLE TOUCH. PT HEART RATE INCREASED FROM 120 TO 130 WHILE IN ROOM PROVIDING CARE, PT SATURATIONS DROPPED INTO MID 80S WITH ACTIVITY. PLACED ON OXYMASK AT FOUR LITERS AND GIVEN A BREATHING TX. PT RIGHT SIDE DIMINISHED, WITH EXPIRATORY WHEEZES IN ALL AIR OLIVEIRA ON THE RIGHT.
--- NOTE | 2019-11-12 06:15 | NUR ---
PT RESTING WITH EYES CLOSED. O2 SATUATIONS 94 PERCENT ON 4 L OM. HEART RATE REMAINS 125-130. NO VISIBLE RESPIRATORY DISTRESS. CALL LIGHT WITHIN REACH.
--- NOTE | 2019-11-12 06:46 | NUR ---
MD CALLED AND UPDATED ON PTS DECLINING URINE OUPUT, INCREASED HEART RATE, NEED FOR INCREASED OXYGEN, CRITICAL WHITE BLOOD CELL COUNT, AND ONGOING PAIN CONTROL ISSUES. NO NEW ORDERS.
--- NOTE | 2019-11-12 08:11 | NUR ---
IN ROOM AT THIS TIME TO ASSESS PATIENT AND GIVE MEDS. PATIENT CURRENTLY SLEEPING AND APPEARS COMFORTABLE. SP02 IS 93% ON 4 L OXYMASK. HR IN THE 120s CONSISTENTLY, SINUS TACH. LAST BP 113/62. RR 19. ALVAREZ DRAINING CONCENTRATED URINE.
--- NOTE | 2019-11-12 10:09 | NUR ---
DR. SANABRIA IN ROOM TO SEE PATIENT AT THIS TIME. PATIENT ANSWERING QUESTIONS AND DISCUSSING PLAN OF CARE WITH MD. NEW IV TO BE STARTED WITH U/S IF POSSIBLE.
[2019-11-12] MEDS ORDERED: GABAPENTIN300 MG PO (11:24)
[2019-11-12] MEDS ORDERED: LEVOTHYROXINE88 MCG PO (11:41)
[2019-11-12] MEDS ORDERED: TRAZODONE HCL50 MG PO (11:41)
[2019-11-12] MEDS ORDERED: METFORMIN HCL1000 MG PO (11:42)
[2019-11-12] MEDS ORDERED: WIXELA 500-501 EACH INH (11:45)
[2019-11-12] MEDS ORDERED: DULOXETINE HCL60 MG PO (11:46)
[2019-11-12] MEDS ORDERED: LISINOPRIL5 MG PO (11:47)
--- NOTE | 2019-11-12 11:50 | NUR ---
UNSUCCESSFUL ATTEMPTS AT STARTING ANOTHER IV BY THIS RN. WILL WARM PACK PATIENT'S ARMS AND HAVE THREAD LASTER ATTEMPT. PATIENT FINISHING 500 ML LR BOLUS. PT STATES HER PAIN IS BETTER THAN BEFORE. PT RESTING.
--- NOTE | 2019-11-12 13:11 | NUR ---
PT ATTEMPTING TO EAT LUNCH, HAS COUGHING FITS AND STATES SHE IS UNABLE TO EAT DUE TO THE COUGHING AND FEELING SHORT OF BREATH WITH EATING. rt CALLED TO COME GIVE HER A NEB, PT TELLS RT SHE FEELS BETTER AFTER NEB TREATMENT AND IS ATTEMPTING TO EAT AGAIN.
--- NOTE | 2019-11-12 14:15 | NUR ---
INTO PATIENT'S ROOM TO GIVE HER A BATH AND GIVE MEDS. BED BATH COMPLETE. ALVAREZ CARE COMPLETE. LINEN CHANGED AFTER PATIENT ABLE TO GET UP AND INTO CHAIR. PATIENT VERY SLOW TO MOVE AND VERY PAINFUL, BUT GOING SLOW AND MOVING CAREFULLY, PATIENT ABLE TO GET UP. PT SAT IN CHAIR FROM [id number] BEFORE NEEDING TO GET BACK INTO BED. PT'S HAIR BRUSHED OUT FOR HER. PATIENT ABLE TO BRUSH HER OWN TEETH. OVERALL, PATIENT STATES SHE IS FEELING BETTER, BUT IS STILL VERY PAINFUL AT TIMES. THE PAIN IS MOSTLY IN HER RIGHT SIDE, UNDER HER RIGHT BREAST AND TAKES HER BREATH AWAY BECAUSE OF HOW SHARP IT FEELS. NYSTATIN POWDER PLACED UNDER BREASTS AND IN GROIN FOLDS. PT HAS CALL LIGHT WITHIN REACH AND IS NOW TRYING TO REST.
--- NOTE | 2019-11-12 17:15 | NUR ---
PATIENT GIVEN PAIN MEDICATION FOR 610 PAIN. SEE EMAR. PT RESTING IN BED AND TRYING TO NAP. PT CONTINUES TO HAVE PRODUCTIVE SPUTUM, GRAYISH YELLOWISH IN COLOR. PT REMAINS ON 1 L NC.
--- NOTE | 2019-11-12 18:42 | NUR ---
IN PATIENT'S ROOM. PT C/O FEELING CHEST TIGHTNESS, NOT MUCH PAIN, BUT JUST TIGHTNESS. PRN NEB TX BEING GIVEN NOW. URINE OUTPUT OVER LAST 2 HOURS 100 ML. IVF CONTINUE AT 125 ML/HR. PT REMAINS ON 1 L NC. PT ATE 100% OF HER DINNER. HR REMAINS IN THE 110-120s. CONTINUE TO MONITOR.
--- NOTE | 2019-11-12 19:23 | NUR ---
REPORT RECIEVED FROM CCU RN, CARE OF PATIENT ASSUMED AT THIS TIME.
--- NOTE | 2019-11-12 19:32 | NUR ---
REPORT RECEIVED FROM DAY SHIFT RN. PT IS RESTING IN BED WITH EYES CLOSED, RESP EVEN UNLABORED, RR 20, SPO2 93% ON 1L/NC AND HR 118.
--- NOTE | 2019-11-12 20:50 | NUR ---
PT AWAKENS AND MOANS IN PAIN, STATES HER BACK AND ABDOMEN HURT. BOLIVAR TYLENOL GIVEN WITH PRN OXYCODONE 10MG. ASSESSMENT DONE, PT CONT TO HAVE FREQUENT SPUTUM PRODUCTION WITH PRODUCTIVE COUGH. LUNGS WITH SLIGHT EXP WHEEZE AND COARSE SOUNDING THROUGHOUT. ALVAREZ PATENT DRAINING LIGHT YELLOW URINE, IVF INFUSING AT 75ML/HR. ASSISTED WITH HS CARE, NUPUR CRACKERS GIVEN FOR SNACK PER REQUEST.
--- NOTE | 2019-11-12 22:00 | NUR ---
PT HAS BEEN RESTING WITH EYES CLOSED, LOOKS COMFORTABLE. REMAINS ON 1L/NC WITH SPO2 94%
--- NOTE | 2019-11-13 00:30 | NUR ---
PT CALLS TO ASK FOR HOT PACK FOR BACK. HOT PACK APPLIED, ASSESSMENT DONE. PT OVERALL LOOKS LESS PAINFUL THAN SHE DID LAST NIGHT. MUCH LESS MOANING TONIGHT. CONT TO HAVE PRODUCTIVE SPUTUM WITH PAINFUL COUGHING.
--- NOTE | 2019-11-13 02:20 | NUR ---
PT CALLS OUT FOR HELP, REQUESTS MORE WATER AND PAIN MEDICINE. PRN OXYCODONE GIVEN.
--- NOTE | 2019-11-13 05:15 | NUR ---
LAB IN TO DRAW BLOOD. PT AWAKE AND C/O RIGHT SIDED UPPER ABD PAIN.
--- NOTE | 2019-11-13 06:25 | NUR ---
IN TO GIVE OXYCODONE 10MG PRN. PT UP IN BED, READY TO ORDER BREAKFAST.
--- NOTE | 2019-11-13 07:00 | NUR ---
Report received, orders acknowledged.
--- NOTE | 2019-11-13 08:00 | NUR ---
Patient sitting up in bed watching tv. Audible expiratory wheezes heard, patient reports SOB. Neb tx given, lung sounds improved with less audible wheezing. Vital signs taken, assessment complete. 1+ pitting edema noted in bilateral lower extremities, along with petechiae. HR in the 130's, increases with movement or pain. AM medications given. IV vanco hung at 270 mls/hr, lidocaine patch applied to right upper back. BG of 261, insulin given per SS (see MAR). Patient educated on importance of using the incentive spirometer and acapella, patient returned demonstration. Breakfast delivered, patient denies further needs at this time. Call light within reach. denies further needs at this time.
--- NOTE | 2019-11-13 09:30 | NUR ---
Dr. Richards in room to assess patient and discuss POC
--- NOTE | 2019-11-13 09:45 | NUR ---
HR continues in 130-140 range. 12.5mg of PO metoprolol given. Patient reports pain is improved since PRN medication, rates 12/05. Will continue to monitor HR.
--- NOTE | 2019-11-13 10:47 | NUR ---
Patient sitting up in bed watching tv. HR of 106. IV vanco and IV cefepime finished infusing. Patient denies further needs, call light within reach.
--- NOTE | 2019-11-13 11:53 | NUR ---
Spoke with Rn's, pt having difficulty speaking due to illness. Will follow up and complete assessment tomorrow when Covid lab is completed.
--- NOTE | 2019-11-13 12:18 | NUR ---
Patient sitting up in bed watching tv. BG of 282, insulin given (see MAR). Lunch delivered. Lung sounds coarse with expiratory wheezes heard audibly. Patient denies needs, call light within reach.
--- NOTE | 2019-11-13 12:30 | EKG ---
[facility] [address] [place], [place] [address] Signed Sinus tachycardia Otherwise normal ECG No previous ECGs available Confirmed by ANDREW SANABRIA DO ([id number]) on 11/13/2019 12:30:51 PM Electronically Signed By: ANDREW SANABRIA DO 11/13/19 1230 PATIENT NAME: PHOENIX MISHRA Electrocardiogram DATE OF : 69 PHYSICIAN: ANDREW SANABRIA DO REPORT #: [id number] REPORT IS CONFIDENTIAL AND NOT TO BE RELEASED WITHOUT AUTHORIZATION
--- NOTE | 2019-11-13 13:15 | NUR ---
Patient sitting up in bed watching tv. Reports pain in sore throat from coughing nonproductively. PRN throat lozange given. Patient reports pain of 8/10, prn pain medication given (see MAR). IV cefepime hung at 25 mls/hr. Patient adjusted in bed for comfort, ice chips provided. Vital signs taken. Denies needs at this time, call light within reach.
--- NOTE | 2019-11-13 13:38 | NUR ---
INDIRA RICKS ADVISED THAT PT IS UNDER PRECAUTIONS AND IS RECEIVING AEROSOLIZING TREATMENT AT THE MOMENT. WILL CHECK BACK
--- NOTE | 2019-11-13 14:41 | NUR ---
PATIENT USES CALL LIGHT AND ASKS FOR SOMETHING SHE DROPPED ON THE GROUND. PT ALSO HELPED TO CLEAN HER GLASSES. HR REMAINS IN THE 110-120s. PT REMAINS ON 1 L NC WITH SP02 94%.
[2019-11-13] MEDS ORDERED: METOPROLOL SUCC50 MG PO (14:59)
[2019-11-13] MEDS ORDERED: METOPROLOL SUCC25 MG PO (14:59)
--- NOTE | 2019-11-13 15:20 | NUR ---
Patient sleeping in bed, respirations even and unlabored. Rouses to voice. Medications given, 12.5mg additional dose of metoprolol given (see MAR). Patient up to edge of bed, sitting with feet on floor. Lung sounds auscultated, coarse throughout with expiratory wheezes. Warm cloth provided for face, bed bath given and new gown on patient. Patient up to chair with 1 PA pivot, 3LNC while ambulating. HR up to 130's with exertion, RR increased to upper 20's. HR returned to 120's and RR decreased to 16 after resting in the chair for several minutes. Water refreshed, vital signs taken. Linens changed. Patient denies further needs at this time, call light within reach.
--- NOTE | 2019-11-13 17:45 | NUR ---
Patient back to bed with 1PA pivot. 1LNC in place, SpO2 of 93%, RR of 20. HR in the 115-120 range. Patient adjusted in bed for comfort. Vital signs taken, assessment complete. BG of 291, insulin given (see MAR). Patient SOB, requests PRN breathing tx, which is provided. IV abx finished infusing, patient saline locked. PM medications given. Denies further needs at this time, call light within reach.
--- NOTE | 2019-11-13 20:10 | NUR ---
IN TO DO ASSESSMENT AND GIVE HS MEDS. PT AWAKE NOW IN BED, WATCHING TV AND EATING A NUPUR CRACKER. C/O CRAMPING IN LEFT HAND, PLACED ARM UP ON PILLOW AND WARM RAG PLACED ON LEFT ANKLE FOR PAIN THERE THAT PT REPORTS CHRONIC "FROM SWELLING" ALTHOUGH DOES NOT APPEAR SWOLLEN AT THIS TIME. OVERALL PT APPEARS COMFORTABLE IS ABLE TO WATCH TV AND CARRY ON CONVERSATION WITHOUT COUGHING OR MOANING IN PAIN SHE HAD BEEN LAST NIGHT. LUNGS HAVE SLIGHT EXP WHEEZE AND FEW COARSE SOUNDS SCATTERED.
--- NOTE | 2019-11-13 21:50 | NUR ---
IN TO START ABX. FRESH ICE GIVEN. PT AWAKE IN BED WATCHING TV. RESTING HR 98-103.REMAINS ON 1L/NC WITH SPO2 94%.
--- NOTE | 2019-11-13 22:45 | NUR ---
IN FOR IV PUMP BEEPING- IV SITES IN RIGHT ARM BOTH NO LONGER INTACT. ONE INFILTRATED AND LEAKY AT SITE. OTHER SITE HAS NO BLOOD RETURN AND IS PAINFUL TO FLUSH AND HAS A LARGE HEMATOMA AT THE SITE. SITES D/CD WITH TIPS INTACT AND NEW SITE STARTED IN RIGHT BREAST WITH EXCELLENT BLOOD RETURN. IV ABX RESTARTED. PT LEILA WELL.
--- NOTE | 2019-11-13 23:43 | NUR ---
PT REQUESTS PAIN MED FOR 5/10 PLEURAL TYPE PAIN ON RIGHT SIDE. 15MG OXYCODONE GIVEN. ALSO REQUESTS PRN NEB TX-ALBUTERAL NEB GIVEN. ASSESSMENT DONE. LUNGS SOUND CLEAR BUT DIM WITH OCC EXP WHEEZE.
--- NOTE | 2019-11-14 02:30 | NUR ---
IN TO CHECK ON PT, WAKES EASILY, DENIES NEEDS AT THIS TIME AND QUICKLY BACK TO SLEEP.
--- NOTE | 2019-11-14 04:30 | NUR ---
IN TO DO ASSESSMENT, PT HAS BEEN SLEEPING AND RESTFUL THE LAST COUPLE OF HOURS. DENIES NEEDS AT THIS TIME.
--- NOTE | 2019-11-14 06:27 | NUR ---
IN TO CHECK ON PT, PT REQUESTS NEB TX. ALBUTEROL NEB GIVEN.
--- NOTE | 2019-11-14 07:00 | NUR ---
Report received, orders acknowledged. Patient laying in bed, awake and alert. Denies needs at this time, call light within reach.
--- NOTE | 2019-11-14 08:00 | NUR ---
Patient laying in bed, awake and alert. POC discussed for day, patient up to chair independently with slight assistance for balance. Vital signs taken, assessment complete. Lung sounds improved from yesterday, expiratory wheezes auscultated but diminished in volume in bases. BG of 253, insulin given (see MAR). AM medications given. Patient reports pain of 4/10, scheduled pain medication given. HR in the 110's. Linens changed, water refreshed. Denies further needs at this time, call light within reach.
--- NOTE | 2019-11-14 09:14 | NUR ---
Dr. Richards in room to assess patient and discuss POC
--- NOTE | 2019-11-14 10:15 | NUR ---
Patient sitting up in chair watching tv. Reports feeling lightheaded and diaphoretic. BG of 291. Cold cloth applied to face. After several minutes, patient states feeling better. Patient transferred to bed with 1PA. Blood drawn from IV site for iron deficiency lab, sample sent off. [facility] D/C'd. Loraine care provided, warm clothes applied to body. Patient switched to telemetry. Patient left sitting up in bed watching tv, denies further needs. Call light within reach.
--- NOTE | 2019-11-14 12:15 | NUR ---
C/O INCREASED CHEST TIGHTNESS. REQUESTING NEB TREATMENT. PROVENTIL NEB TXGIVEN. ACCUCHECK 241. TOTAL OF 22 UNITS HUMALOG SQ GIVEN. AFTER NEB TREATMENT, PATIENT STATES CHEST LESS TIGHT. UP TO COMMODE TO VOID. MUCH LESS SHORT OF BREATH WITH THIS TRANSFER. VOIDED 100 ML OF CLEAR YELLOW URINE, TO CHAIR FOR LUNCH. MOVING WELL WITH MINIMAL ASSISTANCE. COVID 19 RESULTS NEGATIVE.
--- NOTE | 2019-11-14 12:54 | NUR ---
Patient sitting up in chair watching tv and eating lunch. Patient reports pain of 7/10, prn pain medication given (see MAR). 1LNC in place, respirations even and unlabored. IV ceftriaxone finished infusing. Patient denies further needs, call light within reach.
--- NOTE | 2019-11-14 14:10 | NUR ---
PT HAS CLEARED PRECAUTIONS, BUT INDIRA RICKS WAS BUSY WITH PT AND REQUESTED I COME BACK. WILL RETURN
--- NOTE | 2019-11-14 14:10 | NUR ---
PATIENT HELPED OFF OF COMMODE AND BACK INTO BED. PT TOLERATED WELL. PT VOIDED 175 ML URINE. PT NOW WANTING TO REST. CONTINUE TO MONITOR.
--- NOTE | 2019-11-14 14:48 | NUR ---
RT IN ROOM TO GIVE NEB TX. PT NOW RESTING IN BED. CALL LIGHT WITHIN REACH.
--- NOTE | 2019-11-14 15:41 | NUR ---
Spoke with Petra by phone as Covid test is pending. Pt states she lives in [place] with her dad since her mother . Brother moved in recently. They all cook and clean for themselves. She does not drive or work out side the home. Does not use DME, but has used a nebulizer in the past for asthma. They live in a 1 story home, with 2 steps. Her PCP is Dr. Talley in [place]. She uses [facility] transport when needed for medical appts. Pt. states she felt better yesterday and today is not feeling well. Pt is wheezing loudly during our phone conversation. She does plan on dc to home when she is cleared medically.
--- NOTE | 2019-11-14 16:00 | NUR ---
Patient sleeping in bed, rouses to voice easily. 300 mg of gabapentin given. Patient reports a sharp pain and cries out while sitting up in bed to take pill. Reports it feels like a back spasm, reports pain of 10/10. States "this pain feels different than before" while crying. 1mg of IV dilaudid given. Patient reports pain is slightly improved from pain medication . HR in the 130's, temp of 100.4. Oxygen titrated up to 2LNC with SpO2 of 91%. Patient is tender to the touch on the right side of the back, guarding with all touch. Crackles auscultated on the lower right lobe. Patient up to [facility] with 1PA, voided 125 mls. Returned to bed with 1PA. Warm pack applied to lower back.
[2019-11-14] MEDS ORDERED: OMEPRAZOLE20 MG PO (16:19)
--- NOTE | 2019-11-14 17:13 | NUR ---
Updated Dr. Richards on patient condition. Orders acknowledged.
--- NOTE | 2019-11-14 19:34 | NUR ---
HANDOFF REPORT RECEIVED FROM INDIRA SANCHEZ. ASSUMED CARE OF pt.
--- NOTE | 2019-11-14 20:13 | NUR ---
pt ASSESSMENT COMPLETE. LUNG SOUNDS COARSE RLL, EXP WHEEZES AUSCULTATED BILATERALLY UPPER LOBES. pt ASSISTED INTO BED FROM SIDE OF BED. STATES "MY BREATHING FEELS TIGHT". RT JANE IN ROOM FOR PRN BREATHING TREATMENT. AFEBRILE. HR 127. SCHEDULED MEDICATIONS ADMINISTERED. IV SL WNL. CALL LIGHT IN REACH. ICE WATER PROVIDED.
--- NOTE | 2019-11-14 22:00 | NUR ---
CALL LIGHT ANSWERED. 1PA TO BSC FOR VOID AND BACK TO BED. pt TOLERATED WELL, GAIT STEADY, MINIMAL ASSIST. pt C/O 10 PAIN IN NECK. PRN MEDICATION ADMINISTERED. PRN COUGH MEDICATION, DRY COUGH PRESENT. WARM PACKS PROVIDED. CALL LIGHT IN REACH. IV ANTIBIOTIC INFUSING WNL ORDERED.
--- NOTE | 2019-11-14 23:38 | NUR ---
CALL LIGHT ANSWERED. 1PA TO BSC FOR VOID AND BACK TO BED. pt C/O TIGHTNESS WITH BREATHING. PRN NEB TREATMENT ADMINISTERED AT THIS TIME. IS USE DEMONSTRATED WITH 1000 ML BEST EFFORT. LUNG SOUNDS COARSE/CRACKLES RLL. pt RESTING IN BED. AFEBRILE. HR 104 ON TELE. CALL LIGHT IN REACH.
--- NOTE | 2019-11-15 01:34 | NUR ---
CHECKED ON pt. RESTING IN BED AWAKE, HR 97 ON TELE. CALL LIGHT IN REACH.
--- NOTE | 2019-11-15 02:14 | NUR ---
CALL LIGHT ANSWERED. 1PA TO BSC AND BACK TO BED. PRN PAIN MEDICATION ADMINISTERED FOR 7/10 RIGHT HIP, NECK PAIN. ICE WATER PROVIDED. PRN NEB TREATMENT ADMINISTERED REQUESTED. CALL LIGHT IN REACH.
--- NOTE | 2019-11-15 05:36 | NUR ---
pt UP TO BSC FOR VOID WITH MELBA OTTO ASSIST AND BACK TO BED. RATES PAIN 6.5/10 IN NECK, RIGHT HIP AREA. PRN MEDICATION ADMINISTERED. IV ANTIBIOTIC INFUSING WNL ORDERED. NEB TREATMENT ADMINISTERED REQUESTED FOR SOB W AMBULATION. pt SITTING AT SIDE OF BED. CALL LIGHT IN REACH.
--- NOTE | 2019-11-15 06:47 | NUR ---
pt AWAKE FOR MOST OF SHIFT. 1PA TO BSC FOR QS VOIDS. SOB W ACTIVITY, REQUESTING PRN NEB TREATMENTS AFTER OUT OF BED. 1L OXYGEN BY NC IN PLACE, SPO2 WNL. PRN PAIN MEDICATION FOR NECK, RIGHT HIP PAIN. HR SINUS TACHYCARDIA [phone]-[phone] THIS SHIFT ON TELE 7. USING CALL LIGHT APPROPRIATELY.
--- NOTE | 2019-11-15 07:30 | NUR ---
REPORT RECIEVED. PATIENT IS ASLEEP IN BED. NO DISTRESS NOTED. IV ABX INFUSING.
--- NOTE | 2019-11-15 08:00 | NUR ---
WOKE PATIENT FOR ASSESSMENT. PATIENT OOB TO COMMODE TO VOID, THEN TO CHAIR FOR BREAKFAST. MOVING SLOW BUT STEADY WITH SLIGHT INCREASED SHORTNESS OF BREATH WITH EXERTION. TO CHAIR FOR BREAKFAST. PATIENT WILL BE TRANSFERED TO MED-SURG SOMETIME AFTER BREAKFAST.
--- NOTE | 2019-11-15 09:30 | NUR ---
TOOK BREAKFAST WELL. REMAINS IN CHAIR. HAS OCC LOOSE PRODUCTIVE COUGH.
--- NOTE | 2019-11-15 10:20 | NUR ---
TO MED-SURG VIA CHAIR. REPORT GIVEN EARLIER.
--- NOTE | 2019-11-15 11:10 | NUR ---
PT PUSHED CALL LIGHT TO NOTIFY THIS RN THAT THE IV INFUSION WAS COMPLETE. PT ALSO STATED THAT SHE NEEDED TO PEE. ASSISSTED PT TO TOILET. WHEN PT GOT BACK TO BED SHE WAS SEVERELY OUT OF BREATH AND TOOK HER MULTIPLE MINUTES TO CATCH HER BREATH. PT STEADY ON HER FEET BUT MOVES SLOWLY.
--- NOTE | 2019-11-15 12:14 | NUR ---
PT GIVEN SUPPOSITORY TO HELP WITH CONSTIPATION. PT THEN PLACED CALL LIGHT ON 4 TIMES AFTER BEING TOLD EACH TIME THAT A NURSE WAS ON THE WAY. PT WAS IN A HURRY TO GET TO TOILET. PT ASSISTED TO TOILET BY HARRISON JACOBSON AND THEN THIS RN ENTERED ROOM.
--- NOTE | 2019-11-15 12:30 | NUR ---
Spoke with Petra by phone. She states she still feels very ill, but is somewhat better today. I do not hear wheezing as I did yesterday. States she looking for something to do. Rn took word searches to her room.
--- NOTE | 2019-11-15 13:15 | NUR ---
STEFAN JACOBSON INTO ROOM TO PERFORM PTS MIDLINE PLACEMENT AT THIS TIME
--- NOTE | 2019-11-15 13:56 | NUR ---
PT WAS CLEARED OF COVID PRECAUTIONS. PT SITTING ON SIDE OF BED, FINISHING LUNCH. PT FELLS SHE IS IMPROVING AND FEELING MUCH BETTER. 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
--- NOTE | 2019-11-15 14:00 | NUR ---
IN PTS ROOM TO CHECK ON PT. PT LAYING IN BED STATES THAT SHE IS DOING OKAY. MIDLINE PLACEMENT BY STEFAN JACOBSON IN ALMOST COMPLETE AT THIS TIME
--- NOTE | 2019-11-15 16:00 | NUR ---
IN PTS ROOM TO PROVIDE PT WITH SPUTUM SAMPLE CUP. EDUCATED PT ON HOW TO PROVIDE SAMPLE
--- NOTE | 2019-11-15 17:25 | NUR ---
IN PTS ROOM GIVING PT HER INSULIN. PT ASKING FOR EXTRA ICE AT THIS TIME AND HELP PLACING HER NC FOR OXYGEN BACK ON HER FACE
--- NOTE | 2019-11-15 17:33 | NUR ---
ASSISTED PATIENT TO BATHROOM. BLOODSUGAR, VITALS AND I&OS DONE AND CHARTED. CALL LIGHT IN REACH. NO OTHER NEEDS. PATIENT ON SIDE OF BED, WAITING FOR DINNER
--- NOTE | 2019-11-15 18:34 | NUR ---
in pts room after pt pushed button for assisstance to get her legs back into bed. pt then stated that she needed assistance to the restroom. discussed with pt to pull the blue card when she is done
--- NOTE | 2019-11-15 19:16 | NUR ---
RECEIVED REPORT, PT REQUESTED PAIN MEDS. DAYSHIFT RN WILL MEDICATE PT BEFORE SHE LEAVES.
--- NOTE | 2019-11-15 20:36 | NUR ---
HELPED PT BACK FROM THE BATHROOM WITH HER FWW TO HER BED. PER RN VANESSA OK I GOT HER A WARM PACK FOR HER ANKLE. PT SAYS ITS HURTING. FRESH ICE GIVEN PER PT REQUEST. BEDSIDE TABLE AND CALL LIGHT IN REACH.
--- NOTE | 2019-11-15 22:15 | NUR ---
PATIENT CALLS FOR ASSISTANCE, STATES SHE NEEDS TO USE THE BATHROOM. PATIENT COMPLAINS OF RIGHT SHOULDER PAIN AND PAIN AT THE INSERTION SITE OF HER IV. RN NOTIFIED. PATIENT AMBULATES TO BATHROOM TO VOID AND BACK TO BED. PATIENT PERFORMS HER OWN PERICARE AND PERSONAL HYGIENE NEEDED. RN AT BEDSIDE.
--- NOTE | 2019-11-15 23:19 | NUR ---
IN ROOM TO ASSESS PT AND ADMINISTER MEDICATIONS. APPLIED NYSTOP UNDER BREASTS. THERE IS A SMALL RED AREA UNDER LEFT BREAST. PT HAS HEAT PACKS TO LOWER BACK AND LEFT ANKLE. ADMINISTERED IV DILAUDID IT WAS TOO EARLY FOR PO PAIN MEDS. PT IS IN BED AND DENIES FURTHER NEEDS AT THIS TIME. CALL LIGHT IS CLOSE.
--- NOTE | 2019-11-16 00:24 | NUR ---
PT IS RESTING WITH EYES CLOSED, RR IS EVEN AND NONLABORED. CALL LIGHT IS CLOSE.
--- NOTE | 2019-11-16 00:37 | NUR ---
HELPED PT TO THE BATHROOM AND BACK TO BED WITH HER FWW. PT REQUESTED A BREATHING TREATMENT. I INFORMED HER RN VANESSA. BEDSIDE TABLE AND CALL LIGHT IN REACH.
--- NOTE | 2019-11-16 03:55 | NUR ---
ASSISTED PT BACK FROM BATHROOM TO BED. ADMINISTERED OXYCODONE FOR PAIN AND ROBITUSSIN. FRESH ICE PROVIDED AND PT IS POSITIONED IN BED. SHE DENIES FURTHER NEEDS AT THIS TIME. CALL LIGHT IS CLOSE.
--- NOTE | 2019-11-16 04:55 | NUR ---
HELPED PT TO THE BATHROOM AND BACK INTO BED WITH HER FWW. VITALS AND I&OS DONE AND CHARTED. GARBAGES EMPTIED. BEDSIDE TABLE AND CALL LIGHT IN REACH.
--- NOTE | 2019-11-16 05:49 | NUR ---
PT IS RESTING WITH EYES CLOSED, RR IS EVEN AND NONLABORED. CALL LIGHT IS CLOSE.
--- NOTE | 2019-11-16 06:42 | NUR ---
IN ROOM TO ADMINISTER THYROID MEDICINE. PT REQUESTED NEB TRT. RT CAME BUT PT WAS IN RESTROOM. WILL CALL AGAIN. PT DENIES FURTHER NEEDS CALL LIGHT IS CLOSE.
--- NOTE | 2019-11-16 07:22 | NUR ---
REPORT RECEIVED FROM INDIRA MENDEZ. PT RESTING ON BACK IN BED. PT CONTINUES TO REQUEST BREATHING TREATMENT. RT CALLED, AWAITING ARRIVAL. PT REPORT 7/10 PAIN IN CHEST AND BACK. PT DENIES NEED FOR ADDITIONAL COUGH MEDICATION. PT REMAINS ON 1L O2 BY MO FOR COMFORT. NO ADDITIONAL REQUESTS OR COMPLAINTS. CALL LIGHT WITHIN REACH. BED RAILS UP.
--- NOTE | 2019-11-16 08:15 | NUR ---
MORNING ASSESSMENT AND MEDICATION DUE. PT REPORTS 7/10 PAIN IN BACK AND SHOLDERS. SEE MAR FOR MEDICATION GIVEN. 1PA, FWW UP TO RESTROOM. PT SOB WITH ACTIVITY AND HAS DIFFICULTY MAINTAINING "STRENGTH TO WALK." WHEEZES NOTED THROUGH LUNGS. RT CALLED FOR BREATHING TREATMENT. PT DEMONSTRATES USE OF I.S. REACHIGN 750ML. 1PA FWW BACK TO BED. PT WEANED TO ROOM AIR WITH O2 SATURATION ABOVE 92%, SOB CONTINUES WITH TACHYPENIA. NEW ALLEVYN APPLIED TO RIGHT LOWER BACK. MEDICATIONS GIVEN. LINENS CHANGED. NO ADDITIONAL REQUESTS OR COMPLAINTS. RT TO BEDSIDE FOR BREATHING TX. CALL LIGHT WITHIN REACH.
--- NOTE | 2019-11-16 10:27 | NUR ---
THIS RN TO ROOM TO CHECK ON PT. PT SITTING ON EDGE OF BED. PT CONTINUES TO REPORT SOB. PT TOLERATING ROOM AIR WITH O2 SATURATIONS ABOVE 92% 1PA FWW UP TO RESTROOM. PT VOIDS WITHOUT ISSUE. JUANA PAD PLACED FOR DRIBBLING. FRESH HEAT PACKS AND ICE PROVIDED. PT BACK TO BED. DECLINES TIME UP TO CHAIR. BED RAILS UP. CALL LIGHT WITHIN REACH.
--- NOTE | 2019-11-16 12:00 | NUR ---
Spoke with pt. States she is feeling somewhat better. Cont. very weak and tired. On RA today.
--- NOTE | 2019-11-16 12:38 | NUR ---
NOON ASSESSMENT AND MEDICATIONS DUE. 1PA ASSIST UP TO RESTROOM. PT PASSING GAS AND VOIDS WITHOUT ISSUE. JUANA CARE DONE. JUANA PAD IN PLACE PER PT PREFERENCE FOR DRIBBLING. LUNG SOUNDS CLEAR AT THIS TIME WITH OCCATIONAL WHEEZES. PT CONTINUES TO BE SOB WITH AMBULATION. O2 94% ON ROOM AIR. BOWEL TONES HYPOACTIVE. PT REPORTS 6/10 PAIN SEE, MAR FOR MEDICATION GIVEN. PT UP TO CHAIR LUNCH ORDER PLACED. SNACK PROVIDED. NO ADDITIONAL REQUESTS OR COMPLAINTS. CALL LIGHT WITHIN REACH.
--- NOTE | 2019-11-16 14:05 | NUR ---
MEDICATIONS DUE. 1PA UP TO RESTROOM. PT VOIDS WITHOUT ISSUE. PT BACK TO CHAIR, FINISHING LUNCH. MEDICAITONS GIVEN (SEE MAR). MID LINE ASSESSED, BRISK BLOOD RETURN NOTED. PT DENIES PAIN WITH FLUSH, FLUSHES EASILY. VANCO INFUSION STARTED (SEE MAR). PT WORKING ON CROSS WORD PUZZLE. NO ADDIITONAL REQUESTS OR COMPLAINTS AT THIS TIME. CALL LIGHT WITHIN REACH.
--- NOTE | 2019-11-16 16:34 | NUR ---
AFTERNOON ASSESSMENT AND MEDICATIONS DUE. PT UP TO SHOWER WITH 1PA, PT NEEDS MODERATE AMOUNT OF ASSISTANCE WITH SHOWER. MIDLINE SALINE LOCKED. HAIR WASHED, SKIN CARE DONE. FRESH GOWN AND SOCKS PROVIDED. PT ASSISTED WITH COMBING HAIR. PT UP TO CHAIR FOR DINNER. ASSESSMENT DONE. NYSTATIN REAPPLIED AFTER SHOWER. HAIR COMBED AND BRADED. PT REPORTS NUMBNESS TO FEET HAS GOTTEN WORSE DURING HOSIPTAL STAY. PT STATES SHE BELIVES THIS IS RELATED TO STOPPING HER "WATER PILL." PT STATES AT HOME WHEN SHE STARTED "WATER PILL" NUMBNESS IMPROVED. LUNG SOUNDS CLEAR TO DEMINISHED. PT 98% ON ROOM AIR AFTER SHOWER. PT SHORT OF BREATH WITH ACTIVITY AND AMBULATION. BLOOD SUGAR TAKEN. PT EATING SNACKS AND DINNER. INSULIN GIVEN. NO ADDITIOANL REQUSTS OR COMPLAINTS AT THIS TIME. CALL LIGHT WITHIN REACH.
--- NOTE | 2019-11-16 18:08 | NUR ---
PT HERE FOR PNEUMONIA. 1PA WITH FRONT WHEEL WALKER UP IN ROOM THIS SHIFT. PT TOELRATING ROOM AIR THIS SHIFT. SCHEDULED NEBULIZER TREATMENTS GIVEN. LUNG SOUNDS CLEAR, EXIRATORY WHEEZES RESOLVING WITH NEUBULIZER TREATMENTS. PT SHORT OF BREATH AND TACHYCARDIC WITH ACTIVITY. PT TOELRATING 60 GRAM CARBOHYDRATE DIET WELL. SCHEUDLED BLOOD SUGAR CHECKS AND INSULIN ADMINISTRATION. IV ABX GIVENT HROUGH MIDLINE WHICH SHOWS BRISK BLOOD RETURN. ALLEVYN CHANGED TO RAW SKIN AREA ON BACK. NYSTATIN APPLIED TO SKIN FOLDS IN AM AND AFTER SHOWER THIS SHIFT. PT VOIDING QUANTITY SUFFICIENT. PT USES CALL LIGHT APPROPRIATLY.
--- NOTE | 2019-11-16 18:23 | NUR ---
THIS RN TO ROOM TO CHECK ON PT. PT UP TO CHAIR FINISHED WITH DINNER. PT DENIES NAUSEA AND REPORTS 5/10 PAIN THAT IS TOLERABLE AT THIS TIME. NO ADDITIONAL REQUESTS OR COMPLAINTS AT THIS TIME. CALL LIGHT WITHIN REACH.
--- NOTE | 2019-11-16 18:53 | NUR ---
while patient was in the shower. she needed a little bit of assistance. I had to wash her back and the bottom half of her legs. also washed her hair. the nurse lucas put niastatin powder on her skin.
--- NOTE | 2019-11-16 21:38 | NUR ---
UP TO BR, VOIDED, BACK TO BED, SOB WITH EXERTION, ON ROOM AIR, WILL BE PLACED ON CPOX AND O2 2L NC AT HS. COOP WITH ASSESSMENT, C/O GENERALIZED PAIN, MEDICATEDC WITH SCHEDULED TYLENOL AND OXYCODONE 10MG PO, CONTINOUS TO HAVE MOIST NON PRODUCTIVE AT TIMES AND SOMETIMES CLEAR PHLEGM. OBESE, GERNERALIZED ANKLES EDEMA, BRUISING BOTH ARMS, R MIDLINE PATENT. RECEIVED NEB TX EARLIER
--- NOTE | 2019-11-16 22:30 | NUR ---
HELPED PT TO THE BATHROOM WITH HER FWW. ALSO HELPED HER GET HER GLASSES UNSTUCK FROM HER HAIR. PT WILL CALL WHEN SHE IS READY TO GO BACK TO BED.
--- NOTE | 2019-11-16 22:35 | NUR ---
ASSISTED PT BACK FROM BATHROOM TO BED, SHE DENIES FURTHER NEEDS AT THIS TIME. CALL LIGHT IS CLOSE.
--- NOTE | 2019-11-16 22:43 | NUR ---
PER PT REQUEST I BROUGHT HER TWO WARM PACKS. PT NEEDS NOTHING MORE AT THIS TIME.
--- NOTE | 2019-11-17 01:02 | NUR ---
HELPED PT TO THE BATHROOM AND BACK WITH HER FWW. PT ASKED FOR PAIN MEDS AND A BREATHING TX. I INFORMED HER RN MALICK. PT WANTED TO SIT ON THE SIDE OF THE BED FOR AWHILE.
--- NOTE | 2019-11-17 01:44 | NUR ---
PT C/O 9-10 GENERALIZED PAIN, NECK, SHOULDERS . MEDICATED WITH OXYCODONE 10MG PO. RECEIVED A NEB TX EARLIER ON RETURN FROM BR, VOIDED, C/O AOB, SPOT O2 CHECKS 93% RA, R20. LUNGS DIM AT BASES OTHERWISE CLEAR, ON 2L NC ON REQUESTS. USING CALL LIGHT, AND TOLERATING LIQUIDS WELL. CEPACOL DANGELO GIVEN PER DRY SORE THROAT
--- NOTE | 2019-11-17 05:18 | NUR ---
up to br, voided, back to bed, on O2 2L NC, sats 98%, R16, slight sob noted, 1pa/fww, back to bed, c/o 8/10 generalized pain, medicated with oxycodone 10mg po
--- NOTE | 2019-11-17 05:42 | NUR ---
UP TO BR FREQUENTLY FOR SMALL AMOUNTS OF URINE. BACK TO BED WITH 1PA AND FWW. SLIGHT SOB WITH EXERTION, O2 2L NC AT HS FOR SLEEP, SATS 93-98%. TOLERATING LIQUIDS WELL, NO N/V., MIDLINE R ARM INTACT, PATENT. NYASTATINS POWDER TO BREAST AND PANNUS FOLD. BARRIER CREAM TO RED JUANA AREA, NO BM. WAS MEDICATED X3 WITH OXYCODONE PER NECK/BACK AND GENERALIZED PAIN. EFFECTIVE. WARM PADS AND ICE PADS TO NECK SEMI EFFECTIVE. ANXIOUS, EASILY REDIRECTED. CONTINOUS ON DROPLET AND CONTACT ISOLATION,
--- NOTE | 2019-11-17 08:30 | NUR ---
TALKED WITH PT ABOUT PPE AND WHY WE ARE WANTING TO LIMIT THE AMOUNT OF TIMES WE ARE ENTERING THE ROOM. EXPLAINED TO HER THAT IN THE COMMUNITY WHE WILL HAVE TO WEAR A MASK TO GO TO THE DIFFERENT SOTES IN TOWN DUE TO IT IS THE NEW NORMAL. EXPLAINED THAT SHE NEEDS TO COVER HER MOUTH WHEN COUGHING TO HELP PROTECT STAFF. PT UNDERSTOOD. SUGGESTED THAT WITH HER ABILITY TO VOID ONLY SMALL AMOUNTS AT A TIME THAT AT NIGHT SHE SHOULD HAVE THE BS COMMODE AT THE BEDSIDE AND USE IT. PT THOUGHT THAT WAS A GOOD IDEA.
--- NOTE | 2019-11-17 10:23 | NUR ---
ASSISITED PATIENT TO BATHROOM, LINENS CHANGED, VITALS AND I&OS DONE AND CHARTED. CALL LIGHT IN REACH NO OTHER NEEDS AT THIS TIME.
--- NOTE | 2019-11-17 10:54 | NUR ---
TALKED WITH LEEANN AGAIN ABOUT THE TYPE OF PERCAUTIONS PT IS ON AND SHE BROUGHT OUT PRINTED MATERIAL WITH THE INFORMATION ON IT.
--- NOTE | 2019-11-17 11:13 | NUR ---
PT BACK IN BED AWAKEN AND TALKED TO ABOUT O2 USE. TURNED OFF O2 AT THIS TIME AND SPO2 96% ON ROOM AIR. EXPLAINED THAT SHE MOST LIKELY WILL HAVE TO PAY OUT OF POCKET FOR O2 IF SHE WANTS IT DUE TO MEDICALLY SHE DOES NOT MEET THE REQUIRTMENTS. DR CROWELL INTO SEE PT AT THIS TIME.
[2019-11-17] MEDS ORDERED: METOPROLOL TART50 MG PO (11:22)
[2019-11-17] MEDS ORDERED: DOXYCYCLINE HY100 MG PO (11:25)
--- NOTE | 2019-11-17 11:43 | NUR ---
DR CROWELL INTO SEE PT AND PT WILL BE DISCHARGE TO HOME THIS AFTERNOON.
--- NOTE | 2019-11-17 12:10 | NUR ---
MID LINE IN RIGHT BASCIL VEIN DC'D AT THIS TIME, TIP INTACK. PRESSURE DRESSING APPLIED.
--- NOTE | 2019-11-17 14:15 | NUR ---
PT DISCHARGED TO HOME ALL QUESTIONS ANSWERED AND ANGIE INSTRUCTIONS GIVEN,. SHE WAS GIVEN A CARE RIDE TO HOME.
== END 2019-11-17 14:00 | disposition home or self-care (01) | DRG 871 ==
LOC: ED 11:20 → MS 18:41 → CCU 18:41 → MS 11-15 10:10
PROVIDERS: ADMIT Student in an Organized Health Care Education/Training Program
PROC: 05HB33Z Insertion of Infusion Device into Right Basilic Vein, Percutaneous Approach (ICD-10-PCS; principal; 2019-11-15)
DX: A41.51 Sepsis due to Escherichia coli [E. coli] (principal); J15.212 Pneumonia due to Methicillin resistant Staphylococcus aureus; N17.9 Acute kidney failure, unspecified; N39.0 Urinary tract infection, site not specified; Z68.42 Body mass index [BMI] 45.0-49.9, adult; A41.89 Other specified sepsis; A41.02 Sepsis due to Methicillin resistant Staphylococcus aureus; R65.20 Severe sepsis without septic shock; R10.9 Unspecified abdominal pain; E11.9 Type 2 diabetes mellitus without complications; G89.4 Chronic pain syndrome; J45.909 Unspecified asthma, uncomplicated; E03.9 Hypothyroidism, unspecified; E78.5 Hyperlipidemia, unspecified; K21.9 Gastro-esophageal reflux disease without esophagitis; E66.9 Obesity, unspecified; Z20.828 Contact with and (suspected) exposure to other viral communicable diseases; R00.0 Tachycardia, unspecified; E83.42 Hypomagnesemia; D64.9 Anemia, unspecified; Z88.0 Allergy status to penicillin; Z88.7 Allergy status to serum and vaccine; Z79.84 Long term (current) use of oral hypoglycemic drugs; Z79.891 Long term (current) use of opiate analgesic; Z79.52 Long term (current) use of systemic steroids; Z79.899 Other long term (current) drug therapy
CPT/HCPCS: 36415; 36569; 51702; 71045; 71260; 74176; 80048; 80053; 80202; 81001; 82728; 83036; 83540; 83605; 83690; 83735; 84100; 84466; 84484; 85025; 85379; 87040; 87070; 87077; 87088; 87181; 87186; 87205; 87899; 93005; 93010; 94640; 94667; 94668; 94760; 99285-25; J0692; J0696; J1170; J1650; J1815; J2270; J2405; J3370; J3475; J7060; J7121; Q9967; U0002

== ENCOUNTER 2019-11-17 20:02 | Observation (INO) | payer OTHER ==
[~2019-11-17] VITALS: Ht 160 cm; Wt 126.1 kg
--- OUTSIDE RECORDS SUMMARY | ~2019-11-17 | XMS | Encounter Summary ---
Demographics + + + | Address | [address] | | | [place] [address] | + + + | Home Phone | | + + + | Preferred Language | Unknown | + + + | Marital Status | Legally | + + + | Congregational Affiliation | Unknown | + + + | Race | Unknown | + + + | Ethnic Group | Unknown | + + + Author + + + | Author | [facility] | | | and [place] | + + + | Organization | [facility] | | | and [place] | + + + | Address | Unknown | + + + | Phone | Unavailable | + + + Support +---------+ +---------+ + | Name | Relationship | Address | Phone | +---------+ +---------+ + | Milana Kobe | ECON | Unknown | | +---------+ +---------+ + Care Team Providers + +------+ + | Care Manager Rn Case Name | Role | Phone | + +------+ + | Roberth Gaspar MD | PCP | | + +------+ + Reason for Visit + + + | Reason | Comments | + + + | Procedure | | + + + Evaluate & Treat (Routine) +--------+ + + + + + | Status | Reason | Specialty | Diagnoses / | Referred By | Referred To | | | | | Procedures | Contact | Contact | +--------+ + + + + + | Closed | Specialty | Physical | Diagnoses | Mooney, | Oc Mooney | | | Services | Medicine and | Bilateral | Oc Santos MD | Idris Santos MD [address] | | | Required | Rehabilitatio | hand | [address] | | | | n | numbness | [address] | [place], | | | | | Hand | [place], | [place] [address] | | | | | weakness | [place] [address] | Phone: | | | | | History of | Phone: | [phone] | | | | | diabetes | [phone] | Fax: | | | | | mellitus | Fax: | [phone] | | | | | Procedures | [phone] | | | | | | DOS 06/03/16 | | | +--------+ + + + + + Encounter Details +--------+ + + + + | Date | Type | Department | Care Team | Description | +--------+ + + + + | 10/06/ | Procedure | [facility] | Oc Mooney, | Peripheral | | 2017 | visit | PHYSIATRY [address] | polyneuropathy | | | | [address] | [place] | (Primary Dx); | | | | [place], [place] | [address] | Bilateral hand | | | | [address] | | numbness; Hand | | | | [phone] | | weakness; History of | | | | | | diabetes mellitus | +--------+ + + + + Social History + +-------+ +--------+ + | Tobacco Use | Types | Packs/Day | Years | Date | | | | | Used | | + +-------+ +--------+ + | Former Smoker | | 0.25 | | 03/27/1990 - | | | | | | 03/27/1998 | + +-------+ +--------+ + + +---+---+---+ | Smokeless Tobacco: | | | | | Never Used | | | | + +---+---+---+ + + +---------+ + | Alcohol Use | Drinks/Week | oz/Week | Comments | + + +---------+ + | No | 0 Standard drinks | 0.0 | | | | or equivalent | | | + + +---------+ + + + + | Sex Assigned at | Date Recorded | | | | + + + | Not on file | | + + + + + + + | Job Start Date | Occupation | Industry | + + + + | Not on file | Not on file | Not on file | + + + + + + + + | Travel History | Travel Start | Travel End | + + + + + + | No recent travel history available. | + + documented as of this encounter Last Filed Vital Signs + + + + + | Vital Sign | Reading | Time Taken | Comments | + + + + + | Blood Pressure | 130/76 | 10/06/2016 3:44 PM | | | | | PDT | | + + + + + | Pulse | 110 | 10/06/2016 3:44 PM | | | | | PDT | | + + + + + | Temperature | - | - | | + + + + + | Respiratory Rate | - | - | | + + + + + | Oxygen Saturation | - | - | | + + + + + | Inhaled Oxygen | - | - | | | Concentration | | | | + + + + + | Weight | 111.6 kg (246 lb) | 10/06/2016 3:44 PM | | | | | PDT | | + + + + + | Height | 160 cm (5' 3") | 10/06/2016 3:44 PM | | | | | PDT | | + + + + + | Body Mass Index | 43.58 | 10/06/2016 3:44 PM | | | | | PDT | | + + + + + documented in this encounter Patient Instructions Patient Instructions Oc Mooney MD - 10/06/2016 5:19 PM PDTLaboratory tests have bee n requested. Please go to the lab to complete your laboratory testing. The results of your laboratory testing will be reviewed at your next appointment. If your labratory results de monstrate any emergent results the clinic will contact you. Return to the clinic to review lab results and review nerve conduction study final report.E lectronically signed by Oc Mooney MD at 10/06/2016 5:20 PM PDT documented in this encounter Progress Notes Oc Mooney MD - 10/06/2016 6:12 PM PDTFormatting of this note might be different fro m the original. [facility] Physical Medicine & Rehabilitation [address] [place] [address], [facility] [address] [place] [address] Test Date: 10/06/2016 Patient Name: Petra Dangelo : 1965 Physician: Oc Mooney MD (Jr.) MR #: [id number] Sex: Female Referring Physician: Roberth Gaspar MD HISTORY: Ms. Dangelo denies any change in her symptoms since she was last seen. She has bilateral h and numbness for the last 3 years. She reports bilateral foot numbness starting 2 years ago . She reports that she was diagnosed with diabetes approximately 9 years ago. She reports history of thyroid disease. She reports that on the left the numbness is strongest in the f ourth and fifth fingers. She reports that the symptoms are worse on the left hand. She rep orts on the right the symptoms are strongest in the second, third, and fourth fingers. She reports that the numbness affects all digits in both hands. 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 She reports numbness in both feet above t he ankles to the mid forelegs. PHYSICAL EXAM: She has intact to light touch and pin prick in all four extremities using monofilament. Ho wever, she has subjective decrease sensation in the first, second, and third fingers bilater ally. She has subjective decreased sensation in both feet up to mid-forelegs bilaterally. She has 4/5 hand cartographic designer strength bilaterally. The remainder of strength is normal with 5/5 fi nger abduction, wrist dorsiflexion, biceps, and triceps in both upper extremities. She has normal reflexes today 2+ over the biceps, triceps, and brachioradialis of both upper extremi ties. Patellar reflexes were 2+ bilaterally. Achilles reflexes could not be elicited bilat erally. Tinel's test was positive over the median nerves at both wrists. Phalen's test was positive at both wrists. Spurling's test was negative bilaterally. Tinel s test was neg ative over the ulnar nerves at bilateral wrists and bilateral elbows. Nerve Conduction Studies Anti Sensory Summary Table Site NR Peak (ms) Norm Peak (ms) O-P Amp (V) Norm O-P Amp Site1 Site2 Delta-0 (ms) Dist (cm) Timbo (m/s) Norm Timbo (m/s) Left Median Anti Sensory (2nd Digit) Wrist NR <3.6 >10 Wrist 2nd Digit 14.0 >39 Right Median Anti Sensory (2nd Digit) Wrist NR <3.6 >10 Wrist 2nd Digit 14.0 >39 Left Radial Anti Sensory (Base 1st Digit) Each trace is multiple stimuli averaged Wrist 2.8 <2.7 10.1 Wrist Base 1st Digit 2.0 10.0 50 Site 2 2.7 7.7 Site 3 2.8 6.1 Right Radial Anti Sensory (Base 1st Digit) Wrist NR <2.7 Wrist Base 1st Digit 10.0 Left Ulnar Anti Sensory (5th Digit) Wrist NR <3.7 >15.0 Wrist 5th Digit 14.0 >38 Right Ulnar Anti Sensory (5th Digit) Wrist NR <3.7 >15.0 Wrist 5th Digit 14.0 >38 Motor Summary Table Site NR Onset (ms) Norm Onset (ms) O-P Amp (mV) Norm O-P Amp Site1 Site2 Delta-0 (ms) Dist (cm) Timbo (m/s) Norm Timbo (m/s) Left Median Motor (Abd Poll Brev) Wrist 4.1 <4.2 4.5 >5 Elbow Wrist 5.7 22.0 39 >50 Elbow 9.8 4.6 Axilla Elbow 2.2 11.0 50 Axilla 12.0 4.2 Right Median Motor (Abd Poll Brev) Wrist 4.1 <4.2 7.2 >5 Elbow Wrist 5.4 22.0 41 >50 Elbow 9.5 6.1 Axilla Elbow 1.4 8.8 63 Axilla 10.9 6.5 Left Ulnar Motor (Abd Dig Minimi) Wrist 3.4 <4.2 4.3 >3 B Elbow Wrist 5.4 18.5 34 >53 B Elbow 8.8 2.9 A Elbow B Elbow 1.7 10.0 59 >53 A Elbow 10.5 3.0 Right Ulnar Motor (Abd Dig Minimi) Wrist 4.4 <4.2 5.1 >3 B Elbow Wrist 4.5 17.0 38 >53 B Elbow 8.9 3.3 A Elbow B Elbow 1.3 10.0 77 >53 A Elbow 10.2 3.2 Comparison Summary Table Site NR Peak (ms) Norm Peak (ms) P-T Amp (V) Site1 Site2 Delta-P (ms) Norm Delta (ms) Left Median/Radial Dig I Comparison (Digit 1 - 10cm) Median 2.8 <2.9 3.5 Median Radial 0.0 <0.4 Radial 2.8 <2.8 2.5 Right Median/Radial Dig I Comparison (Digit 1 - 10cm) Median 2.1 <2.9 3.3 Median Radial 0.6 <0.4 Radial 2.7 <2.8 2.5 Left Median/Ulnar Dig IV Comparison (Digit 4 - 14cm) Median Wr NR <3.3 Median Wr Ulnar Wr <0.4 Ulnar Wr 7.3 <3.3 5.8 Right Median/Ulnar Dig IV Comparison (Digit 4 - 14cm) Each trace is multiple stimuli ave raged Median Wr 2.8 <3.3 1.5 Median Wr Ulnar Wr <0.4 Ulnar Wr NR <3.3 Left Median/Ulnar Palm Comparison (Wrist - 8cm) Median Palm 2.4 <2.5 3.4 Median Palm Ulnar Palm <0.3 Ulnar Palm NR <2.5 Right Median/Ulnar Palm Comparison (Wrist - 8cm) Median Palm 2.4 <2.5 1.6 Median Palm Ulnar Palm <0.3 Ulnar Palm NR <2.5 F Wave Studies NR F-Lat (ms) Lat Norm (ms) L-R F-Lat (ms) L-R Lat Norm Left Median (Mrkrs) (Abd Poll Brev) 34.47 <33 3.24 <2.2 Right Median (Mrkrs) (Abd Poll Brev) 31.23 <33 3.24 <2.2 Left Ulnar (Mrkrs) (Abd Dig Min) 32.73 <36 1.73 <2.5 Right Ulnar (Mrkrs) (Abd Dig Min) 31.00 <36 1.73 <2.5 EMG Side Muscle Nerve Root Ins Act Fibs Psw Amp Dur Poly Recrt Int Pat Comment Left Deltoid Axillary C5-6 Nml Nml Nml Nml Nml Nml Nml Nml Left Biceps Musculocut C5-6 Nml Nml Nml Nml Nml Nml Nml Nml Left Triceps Radial C6-7-8 Nml Nml Nml Nml Nml Nml Nml Nml Left Anconeus Radial C7-8 Nml Nml Nml Nml Nml Nml Nml Nml Left PronatorTeres Median C6-7 Nml Nml Nml Nml Nml Nml Nml Nml Left 1stDorInt Ulnar C8-T1 Nml Nml Nml Nml Nml Nml Nml Nml Left Abd Poll Brev Median C8-T1 Nml Nml Nml Nml Nml Nml Nml Nml Right Deltoid Axillary C5-6 Nml Nml Nml Nml Nml Nml Nml Nml Right Biceps Musculocut C5-6 Nml Nml Nml Nml Nml Nml Nml Nml Right Triceps Radial C6-7-8 Nml Nml Nml Nml Nml Nml Nml Nml Right Anconeus Radial C7-8 Nml Nml Nml Nml Nml Nml Nml Nml Right PronatorTeres Median C6-7 Nml Nml Nml Nml Nml Nml Nml Nml Right 1stDorInt Ulnar C8-T1 Nml Nml Nml Nml Nml Nml Nml Nml Right Abd Poll Brev Median C8-T1 Nml Nml Nml Nml Nml Nml Nml Nml Nerve Conduction Studies Motor Left/Right Comparison Site L Lat (ms) R Lat (ms) L-R Lat (ms) L Amp (mV) R Amp (mV) L-R Amp (%) Site1 Site2 L Ve l (m/s) R Timbo (m/s) L-R Timbo (m/s) Median Motor (Abd Poll Brev) Wrist 4.1 4.1 0.0 4.5 7.2 37.5 Elbow Wrist 39 41 2 Elbow 9.8 9.5 0.3 4.6 6.1 24.6 Axilla Elbow 50 63 13 Axilla 12.0 10.9 1.1 4.2 6.5 35.4 Ulnar Motor (Abd Dig Minimi) Wrist 3.4 4.4 1.0 4.3 5.1 15.7 B Elbow Wrist 34 38 4 B Elbow 8.8 8.9 0.1 2.9 3.3 12.1 A Elbow B Elbow 59 77 18 A Elbow 10.5 10.2 0.3 3.0 3.2 6.3 Anti Sensory Left/Right Comparison Site L Lat (ms) R Lat (ms) L-R Lat (ms) L Amp (V) R Amp (V) L-R Amp (%) Site1 Site2 L Timbo (m/s) R Timbo (m/s) L-R Timbo (m/s) Median Anti Sensory (2nd Digit) Wrist Wrist 2nd Digit Radial Anti Sensory (Base 1st Digit) Each trace is multiple stimuli averaged Wrist 2.8 10.1 Wrist Base 1st Digit 50 Site 2 2.7 7.7 Site 3 2.8 6.1 Ulnar Anti Sensory (5th Digit) Wrist Wrist 5th Digit Comparison Left/Right Comparison Site L Lat (ms) R Lat (ms) L-R Lat (ms) L Amp (V) R Amp (V) L-R Amp (%) Median/Radial Dig I Comparison (Digit 1 - 10cm) Median 2.8 2.1 0.7 3.5 3.3 5.7 Radial 2.8 2.7 0.1 2.5 2.5 0.0 Median/Ulnar Dig IV Comparison (Digit 4 - 14cm) Median Wr 2.8 1.5 Ulnar Wr 7.3 5.8 Median/Ulnar Palm Comparison (Wrist - 8cm) Median Palm 2.4 2.4 0.0 3.4 1.6 52.9 Ulnar Palm NCV FINDINGS: Evaluation of the Left median motor nerve showed reduced amplitude and decrea sed conduction velocity (Elbow-Wrist). The Right median motor nerve showed decreased conduc tion velocity (Elbow-Wrist). The Left ulnar motor nerve showed decreased conduction velocit y (B Elbow-Wrist). The Right ulnar motor nerve showed prolonged distal onset latency and de creased conduction velocity (B Elbow-Wrist). The Left median sensory, the Right median sens ory, the Right radial sensory, the Left ulnar sensory, and the Right ulnar sensory nerves sh owed no response (Wrist). The Left radial sensory nerve showed prolonged distal peak latenc y. The Right median/radial (dig I) comparison nerve showed abnormal peak latency difference (Median-Radial). The Left median/ulnar (dig IV) comparison nerve showed no response (Media n Wr) and prolonged distal peak latency (Ulnar Wr). The Right median/ulnar (dig IV) compari son nerve showed no response (Ulnar Wr). The Left median/ulnar (palm) comparison and the Ri ght median/ulnar (palm) comparison nerves showed no response (Ulnar Palm). All remaining ne rves (as indicated in the following tables) were within normal limits. F Wave studies indicate that the Left median F wave has prolonged latency. All remaining F Wave latencies were within normal limits. EMG FINDINGS: All examined muscles (as indicated in the following table) showed no evidence of electrical instability. IMPRESSION: This is an abnormal study. Nerve conduction study of the both upper extremities was abnormal. Nerve conduction study of both upper extremities demonstrates changes most consistent with probable peripheral poly neuropathy. This study does not meet the absolute diagnostic criteria for peripheral neurop athy since a lower extremity was not studied. Sensory study of the left upper extremity demonstrates focal slowing of the ulnar nerve at the left wrist. This finding may represent possible left ulnar neuropathy at Guyon s jennifer l versus multi-focal mono neuropathy. This finding could not be duplicated or confirmed wit h alternate ulnar nerve testing due to lack of responses. EMG of both upper extremities was unremarkable. There was no evidence of cervical radiculo soniya in either upper extremity. DISCUSSION: Ms. Dangelo demonstrated fair tolerance to nerve conduction study of both upper extremities . She demonstrated excellent tolerance to EMG of both upper extremities. As noted above, this study demonstrates findings consistent with probable peripheral polyne uropathy. Lower extremity studies would be helpful for confirmation. If reduced tibial mot or amplitude is seen in a lower extremity this would help confirm the presence of suspected diabetic peripheral neuropathy. Ms. Wright history combined with the findings seen on this study is most consistent with diabetic peripheral polyneuropathy. She does have possible focal slowing of the left ulnar nerve at the wrist at Gu[place] s canal. She has distal slowing of most nerve testing. Other causes of peripheral neuropathy exist. She will have laboratory testing to evaluate for co mmon and treatable forms of peripheral neuropathy. Testing will include SPEP to evaluate fo r mono-clonal gammopathy. She will return to the clinic to review laboratory testing and to review the final report of this nerve study. We will also discuss consideration of lower e xtremity nerve study at her next appointment. If laboratory results demonstrated emergent f indings she will be contacted and informed by phone. When testing lower extremity we may co nsider repeat testing of left ulnar nerve in attempt to confirm if there is ulnar neuropathy at the left Guyon s canal. Today we reviewed the preliminary results of today s testing. We discussed the need for laboratory testing. Approximately 15 minutes was spent face to face today with Ms. Dangelo, beyond the completion of the nerve conduction study and EMG, over half of which was spent f ormulating and discussing her medical treatment plan. Thank you for allowing me to be involved in the care of your patient. If you have any quest ions or comments, please do not hesitate to call. Oc Mooney MD (Jr.) Physical Medicine and Rehabilitation Cc: Roberth Gaspar MD documented in this en counter Plan of Treatment + +------+--------+ + + | Name | Type | Priori | Associated Diagnoses | Order Schedule | | | | ty | | | + +------+--------+ + + | CBC with | Lab | Routin | Peripheral | Expected: | | Differential | | e | polyneuropathy | 10/06/2016, Expires: | | | | | | 10/06/2017 | + +------+--------+ + + | Comprehensive | Lab | Routin | Peripheral | Expected: | | Metabolic Panel | | e | polyneuropathy | 10/06/2016, Expires: | | | | | | 10/06/2017 | + +------+--------+ + + | Thyroid Stimulating | Lab | Routin | Peripheral | 1 Occurrences | | Immune Globulins | | e | polyneuropathy | starting 10/06/2016 | | | | | | until 10/06/2017 | + +------+--------+ + + | T4, Free | Lab | Routin | Peripheral | Expected: | | | | e | polyneuropathy | 10/06/2016, Expires: | | | | | | 10/06/2017 | + +------+--------+ + + | Vitamin B-12 | Lab | Routin | Peripheral | Expected: | | | | e | polyneuropathy | 10/06/2016, Expires: | | | | | | 10/06/2017 | + +------+--------+ + + | Methylmalonic Acid, | Lab | Routin | Peripheral | 1 Occurrences | | Quant | | e | polyneuropathy | starting 10/06/2016 | | | | | | until 10/06/2017 | + +------+--------+ + + | Folate | Lab | Routin | Peripheral | 1 Occurrences | | | | e | polyneuropathy | starting 10/06/2016 | | | | | | until 10/06/2017 | + +------+--------+ + + | Sedimentation Rate | Lab | Routin | Peripheral | Expected: | | | | e | polyneuropathy | 10/06/2016, Expires: | | | | | | 10/06/2017 | + +------+--------+ + + | Heavy Metals Screen, | Lab | Routin | Peripheral | 1 Occurrences | | Urine, 24Hr | | e | polyneuropathy | starting 10/06/2016 | | | | | | until 10/06/2017 | + +------+--------+ + + | Protein | Lab | Routin | Peripheral | 1 Occurrences | | Electrophoresis, | | e | polyneuropathy | starting 10/06/2016 | | Serum | | | | until 10/06/2017 | + +------+--------+ + + | Hemoglobin A1C | Lab | Routin | Peripheral | 1 Occurrences | | | | e | polyneuropathy | starting 10/06/2016 | | | | | History of diabetes | until 10/06/2017 | | | | | mellitus | | + +------+--------+ + + documented as of this encounter Procedures + +--------+ + + + | Procedure Name | Priori | Date/Time | Associated Diagnosis | Comments | | | ty | | | | + +--------+ + + + | LABS - EXTERNAL SCAN | | 11/04/2016 | | Results for this | | | | 12:00 AM | | procedure are in the | | | | PDT | | results section. | + +--------+ + + + documented in this encounter Results LABS - EXTERNAL SCAN (11/04/2016 12:00 AM PDT) + + + | Narrative | Performed At | + + + | Ordered by an | | | unspecified provider. | | + + + documented in this encounter Visit Diagnoses + + | Diagnosis | + + | Peripheral polyneuropathy - Primary Unspecified hereditary and idiopathic peripheral | | neuropathy | + + | Bilateral hand numbness Disturbance of skin sensation | + + | Hand weakness Muscle weakness (generalized) | + + | History of diabetes mellitus Personal history of other endocrine, metabolic, and | | immunity disorders | + + documented in this encounter
--- OUTSIDE RECORDS SUMMARY | ~2019-11-17 | XMS | Clinical Summary ---
Demographics + + + | Address | [address] | | | [place] [address] | + + + | Home Phone | | + + + | Preferred Language | Unknown | + + + | Marital Status | Single | + + + | Confucianism Affiliation | Unknown | + + + | Race | Unknown | + + + | Ethnic Group | Unknown | + + + Author + + + | Author | [facility] (Historical as of | | | 02-11-19) | + + + | Organization | [facility] (Historical as of | | | 02-11-19) | + + + | Address | Unknown | + + + | Phone | Unavailable | + + + Support +---------+ +---------+ + | Name | Relationship | Address | Phone | +---------+ +---------+ + | Kobe,Milana | ECON | Unknown | | +---------+ +---------+ + Care Team Providers + +------+ + | Care French Comber Name | Role | Phone | + +------+ + | Roberth Gaspar MD | PP | | + +------+ + Allergies + + + + + + | Active Allergy | Reactions | Severity | Noted | Comments | | | | | Date | | + + + + + + | Penicillins | Shortness of Breath | High | 11/06/19 | | | | | | 18 | | + + + + + + | Shellfish-Derived | Shortness of Breath | High | 11/06/19 | | | Products | | | 18 | | + + + + + + Current Medications + + +-------+---------+------+------+-------+ | Prescription | Sig. | Disp. | Refills | Star | End | Statu | | | | | | t | Date | s | | | | | | Date | | | + + +-------+---------+------+------+-------+ | enalapril | Take 5 mg by mouth | | | | | Activ | | (VASOTEC) 5 MG | daily. | | | | | e | | tablet | | | | | | | + + +-------+---------+------+------+-------+ | ranitidine | Take 300 mg by mouth | | | | | Activ | | (ZANTAC) 300 MG | nightly. | | | | | e | | tablet | | | | | | | + + +-------+---------+------+------+-------+ | omeprazole | Take 20 mg by mouth | | | | | Activ | | (PRILOSEC) 20 MG | every morning before | | | | | e | | capsule | breakfast. | | | | | | + + +-------+---------+------+------+-------+ | levothyroxine | Take 88 mcg by mouth | | | | | Activ | | (SYNTHROID) 88 MCG | every morning | | | | | e | | tablet | before breakfast. | | | | | | + + +-------+---------+------+------+-------+ | glimepiride | Take 4 mg by mouth | | | | | Activ | | (AMARYL) 4 MG tablet | every morning before | | | | | e | | | breakfast. | | | | | | + + +-------+---------+------+------+-------+ | doxazosin | Take 1 mg by mouth | | | | | Activ | | (CARDURA) 2 MG | nightly. | | | | | e | | tablet | | | | | | | + + +-------+---------+------+------+-------+ | metoprolol | Take 50 mg by mouth | | | | | Activ | | (TOPROL-XL) 50 MG 24 | daily. | | | | | e | | hr tablet | | | | | | | + + +-------+---------+------+------+-------+ | hydrOXYzine | Take 10 mg by mouth | | | | | Activ | | (ATARAX) 10 MG | 3 (three) times | | | | | e | | tablet | daily as needed for | | | | | | | | Itching. | | | | | | + + +-------+---------+------+------+-------+ | albuterol | Inhale 2 puffs into | | | | | Activ | | (PROVENTIL | the lungs every 4 | | | | | e | | HFA;VENTOLIN HFA) | (four) hours as | | | | | | | 108 (90 Base) | needed for Wheezing. | | | | | | | MCG/ACT inhaler | | | | | | | + + +-------+---------+------+------+-------+ | metFORMIN | Take 1,000 mg by | | | | | Activ | | (GLUCOPHAGE) 500 MG | mouth 2 (two) times | | | | | e | | tablet | daily with meals. | | | | | | + + +-------+---------+------+------+-------+ | naproxen | Take 250 mg by mouth | | | | | Activ | | (NAPROSYN) 250 MG | 2 (two) times daily | | | | | e | | tablet | as needed. | | | | | | + + +-------+---------+------+------+-------+ | traMADol (ULTRAM) | Take 100 mg by mouth | | | | | Activ | | 50 MG tablet | every 6 (six) hours | | | | | e | | | as needed for Pain. | | | | | | + + +-------+---------+------+------+-------+ | | Inhale 1 puff into | | | | | Activ | | fluticasone-salmeter | the lungs 2 (two) | | | | | e | | ol (ADVAIR) 500-50 | times daily. | | | | | | | MCG/DOSE diskus | | | | | | | | inhaler | | | | | | | + + +-------+---------+------+------+-------+ | | Take 1 tablet by | | | | | Activ | | triamterene-hydrochl | mouth daily. | | | | | e | | orothiazide | | | | | | | | (MAXZIDE) 75-50 MG | | | | | | | | per tablet | | | | | | | + + +-------+---------+------+------+-------+ | silver | Apply topically 2 | | | | | Activ | | sulfADIAZINE | (two) times daily. | | | | | e | | (SILVADENE) 1 % | | | | | | | | cream | | | | | | | + + +-------+---------+------+------+-------+ | montelukast | Take 10 mg by mouth | | | | | Activ | | (SINGULAIR) 10 MG | nightly. | | | | | e | | tablet | | | | | | | + + +-------+---------+------+------+-------+ | | Take 1 tablet by | | | | | Activ | | oxyCODONE-acetaminop | mouth every 4 (four) | | | | | e | | hen (PERCOCET) 5-325 | hours as needed for | | | | | | | MG per tablet | Pain. | | | | | | + + +-------+---------+------+------+-------+ | ferrous sulfate, | Take 65 mg of iron | | | | | Activ | | 65 FE, 324 (65 Fe) | by mouth daily with | | | | | e | | MG EC tablet | breakfast. | | | | | | + + +-------+---------+------+------+-------+ | ascorbic acid | Take 500 mg by mouth | | | | | Activ | | (VITAMIN C) 500 MG | daily. | | | | | e | | tablet | | | | | | | + + +-------+---------+------+------+-------+ | | Apply topically 2 | | | | | Activ | | clotrimazole-betamet | (two) times daily. | | | | | e | | hasone (LOTRISONE) | | | | | | | | cream | | | | | | | + + +-------+---------+------+------+-------+ | | Apply topically 2 | | | | | Activ | | nystatin-triamcinolo | (two) times daily. | | | | | e | | ne (MYCOLOG) | | | | | | | | ointment | | | | | | | + + +-------+---------+------+------+-------+ | gabapentin | Take 300 mg by mouth | | | | | Activ | | (NEURONTIN) 300 MG | 3 (three) times | | | | | e | | capsule | daily. | | | | | | + + +-------+---------+------+------+-------+ | mometasone | Apply topically | | | | | Activ | | (ELOCON) 0.1 % cream | daily. | | | | | e | + + +-------+---------+------+------+-------+ | cyanocobalamin | Inject into the | | | | | Activ | | 1000 MCG/ML | muscle. | | | | | e | | injection | | | | | | | + + +-------+---------+------+------+-------+ Active Problems + + + | Problem | Noted Date | + + + | CKD (chronic kidney disease), stage III ([facility]) | 11/08/2017 | + + + | Type 2 diabetes mellitus with diabetic nephropathy, without | 11/08/2017 | | long-term current use of insulin (HCC) | | + + + | Essential [...] 45.0 to 49.9 in adult | | | (HCC) | | + + + | Anemia of chronic disease | 11/08/2017 | + + + Family History + + +------+ + | Medical History | Relation | Name | Comments | + + +------+ + | Cancer | Father | | | + + +------+ + | Diabetes type II | Mother | | | + + +------+ + + +------+ + + | Relation | Name | Status | Comments | + +------+ + + | Father | | Alive | | + +------+ + + | Mother | | | | + +------+ + + Social History + +-------+ +--------+------+ | Tobacco Use | Types | Packs/Day | Years | Date | | | | | Used | | + +-------+ +--------+------+ | Never Smoker | | | | | + +-------+ +--------+------+ + +---+---+---+ | Smokeless Tobacco: | | | | | Never Used | | | | + +---+---+---+ + + +---------+ + | Alcohol Use | Drinks/We | oz/Week | Comments | | | ek | | | + + +---------+ + | No | | | | + + +---------+ + + + + | Sex Assigned at | Date Recorded | | | | + + + | Not on file | | + + + Last Filed Vital Signs + + + + | Vital Sign | Reading | Time Taken | + + + + | Blood Pressure | 132/76 | 02/24/2018 2:54 PM PDT | + + + + | Pulse | 97 | 02/24/2018 2:54 PM PDT | + + + + | Temperature | 37 C (98.6 F) | 02/24/2018 2:54 PM PDT | + + + + | Respiratory Rate | - | - | + + + + | Oxygen Saturation | 98% | 02/24/2018 2:54 PM PDT | + + + + | Inhaled Oxygen | - | - | | Concentration | | | + + + + | Weight | 119.7 kg (264 lb) | 02/24/2018 2:54 PM PDT | + + + + | Height | 160 cm (5' 3") | 02/24/2018 2:54 PM PDT | + + + + | Body Mass Index | 46.77 | 02/24/2018 2:54 PM PDT | + + + + Plan of Treatment + + + + + | Health Maintenance | Due Date | Last Done | Comments | + + + + + | Diabetic Eye Exam | | | | | | 7 | | | + + + + + | Diabetic Foot Exam | | | | | | 7 | | | + + + + + | Vaccine: | | | | | Dtap/Tdap/Td (1 - | 6 | | | | Tdap) | | | | + + + + + | Vaccine: | | | | | Pneumococcal 19-64 | 6 | | | | (PPSV23 only) Medium | | | | | Risk (1 of 1 - | | | | | PPSV23) | | | | + + + + + | Cervical Cancer | | | | | Screening (Pap) | 7 | | | + + + + + | Hemoglobin A1c | | 11/04/2016 | | | | 7 | | | + + + + + | Statin Therapy | | | | | (optimal intensity) | 7 | | | + + + + + | Breast Cancer | | | | | Screening | 7 | | | | (Mammogram) | | | | + + + + + | Colon Cancer | | | | | Screening | 7 | | | | (Colonoscopy) | | | | + + + + + | Vaccine: Zoster (1 | | | | | of 2) | 7 | | | + + + + + | Vaccine: Influenza | | | | | (Season Ended) | 0 | | | + + + + + Results Not on filefrom Last 3 Months Insurance + +--------+ +------+-------+ + | Payer | Benefi | Subscriber | Type | Phone | Address | | | t Plan | ID | | | | | | / | | | | | | | Group | | | | | + +--------+ +------+-------+ + | MEDICAID | [employer] | [id number] | | | [address] | | | [place] | | | | [place] | | | [place] | | | | [phone] | | | [employer] | | | | | + +--------+ +------+-------+ + + +--------+ +--------+ + + | Guarantor Name | [employer]oun | Relation to | Date | Phone | Billing Address | | | t Type | Patient | of | | | | | | | | | | + +--------+ +--------+ + + | PHOENIX DANGELO | Person | Self [birth year] Home: | [facility] [address] | | | al/[place]of[place] | | [phone] | [phone] [place] | | | [place] | | [phone] | [phone] | + +--------+ +--------+ + +
--- OUTSIDE RECORDS SUMMARY | ~2019-11-17 | XMS | Encounter Summary ---
Demographics + + + | Address | [address] | | | [place] [address] | + + + | Home Phone | | + + + | Preferred Language | Unknown | + + + | Marital Status | Legally | + + + | Bahai Affiliation | Unknown | + + + | Race | Unknown | + + + | Ethnic Group | Unknown | + + + Author + + + | Author | [facility] | | | and [place] | + + + | Organization | [facility] | | | [...] Team Providers + +------+ + | Care Sheeter Operator Name | Role | Phone | + +------+ + | Roberth Gaspar MD | PCP | | + +------+ + Encounter Details +--------+ + + + + | Date | Type | Department | Care Team | Description | +--------+ + + + + | 09/12/ | Documentati | [facility] | [place], | | | 2019 | on | [facility]PH[facility] [place] | Jose Carlos Jha | | | | | [address] | Support Director | | | | | [address] | | | | | | [place], [place] | | | | | | [address] | | | | | | [phone] | | | +--------+ + + + [...] + + + + | RBC | 4.30 | 4.20 - 5.40 | | | | | | M/uL | | | + [...]
--- OUTSIDE RECORDS SUMMARY | ~2019-11-17 | XMS | Encounter Summary ---
Demographics + + + | Address | [address] | | | [place] [address] | + + + | Home Phone | | + + + | Preferred Language | Unknown | + + + | Marital Status | Legally | + + + | Faith Affiliation | Unknown | + + + | Race | Unknown | + + + | Ethnic Group | Unknown | + + + Author + + + | Author | [facility] | | | and [place] | + + + | Organization | [facility] | | | [...] Team Providers + +------+ + | Care Track Template Maker Name | Role | Phone | + +------+ + | Roberth Gaspar MD | PCP | | + +------+ + Reason for Referral Evaluate & Treat (Routine) +--------+ + + + + + | Status | Reason | Specialty | Diagnoses / | Referred By | Referred To | | | | | Procedures | Contact | Contact | +--------+ + + + + + | Closed | Specialty | Physical | Diagnoses | Vinicio, | Mooney, Oc | | | Services | Medicine and | Bilateral | Oc E A, MD | [address], [address] | | | Required | Rehabilitatio | hand | [address] | | | | n | numbness | [address] | [place], | | | | | Hand | [place], | [place] [address] | | | | | weakness | [place] [address] | Phone: | | | | | History of | Phone: | [phone] | | | | | diabetes | [phone] | Fax: | | | | | mellitus | Fax: | [phone] | | | | | Procedures | [phone] | | | | | | DOS 06/03/16 | | | +--------+ + + + + + Reason for Visit + + + | Reason | Comments | + + + | Back Pain | low back pain | + + + | Hand Pain | Bilateral hands | + + + | Neuropathy | bilateral hands | + + + Evaluate & Treat (Routine) +--------+--------+ + + + + | Status | Reason | Specialty | Diagnoses / | Referred By | Referred To | | | | | Procedures | Contact | Contact | +--------+--------+ + + + + | Closed | | Physical | Diagnoses | Hubert, | Oc Mooney | | | | Medicine and | Other | Roberth | Idris Santos MD [address] | | | | Rehabilitatio | 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 Santos [address] | | | | n | al disc | [address] | [place], | | | | | degeneration | [address] | [place] [address] | | | | | , lumbar | [place], | Phone: | | | | | region | [place] | [phone] | | | | | Neuropathy | [address] | Fax: | | | | | | Phone: | [phone] | | | | | | [phone] | | | | | | | Fax: | | | | | | | [phone] | | +--------+--------+ + + + + Encounter Details +--------+---------+ + + + | Date | Type | Department | Care Team | Description | +--------+---------+ + + + | 05/04/ | Office | [facility] | Oc Mooney, | Bilateral hand | | 2015 | Visit | PHYSIATRY [address] | MD [address] | numbness (Primary | | | | [address] | [place] | Dx); Hand weakness; | | | | [place] | [address] | History of diabetes | | | | [address] | | mellitus; Brisk deep | | | | [phone] | | tendon reflexes | +--------+---------+ + + + Social History [...] + + + | Blood Pressure | 104/68 | 05/04/2016 3:58 PM | | | | | PST | | + + + + + | Pulse | 101 | 05/04/2016 3:58 PM | | | | | PST | | + + + + + | Temperature | - | - | | + + + + + | Respiratory Rate | 16 | 05/04/2016 3:58 PM | | | | | PST | | + + + + + | Oxygen Saturation | - | - | | + + + + + | Inhaled Oxygen | - | - | | | Concentration | | | | + + + + + | Weight | 111.7 kg (246 lb 3.2 | 05/04/2016 3:58 PM | | | | oz) | PST | | + + + + + | Height | 160 cm (5' 3") | 05/04/2016 3:58 PM | | | | | PST | | + + + + + | Body Mass Index | 43.61 | 05/04/2016 3:58 PM | | | | | PST | | + + + + + documented in this encounter Patient Instructions Patient Instructions Oc Mooney MD - 05/04/2016 4:47 PM PSTPlease attend your schedu led nerve conduction study and EMG appointment. Nerve conduction studies and EMG require a great deal of time to complete. If you will be unable to make your appointment please contact the clinic at least one full business day lorena or to your appointment . Missed appoints without cancellation will only be re scheduled once. Children under the age of 13 are not permitted in the room during the nerve study. If acco mpanied by children under the age of 13, they will need an adult to supervise them, while th ey wait in the lobby. Prior to your appointment wash the skin with soap and water. This is to remove any of the natural oils on the skin which may interfere with the completion of the study. Please do not wear any lotion prior to the study as lotion may also interfere with the comp letion of the study. When attending your study please bring appropriate attire. If you are having a study of th e upper extremities please bring a short sleeve shirt to wear during the study. If you are having a study of the lower extremities please bring shorts to wear during the study. At the time of your study, please remind the physician if you are taking any blood thinning medications such as Coumadin, or heparin. At the time of your study, please remind the physician if you have an implanted electronic device such as a pacemaker. documented in this encounter Progress Notes Oc Mooney MD - 05/04/2016 4:48 PM PSTFormatting of this note might be different fro m the original. Physical Medicine & Rehabilitation Concussion Consult Referring Provider: Roberth Gaspar MD Date of Service: 05/04/2016 Patient ID: Petra Dangelo is a 51 year old female with chief complain of bilateral hand numbness. HPI Petra Dangelo reports that she started having bilateral hand numbness around 3 years ago . She was diagnosed with diabetes around 8 years ago. She reports that she has had intermi ttent foot numbness for the last 1-2 years. She reports that foot numbness has been constan t for the last 6 months. She reports that her doctor told her that she has diabetic neuropa thy. She reports that her hand numbness started before her foot numbness. She reports that her hand numbness has been constant in timing for years. She denies neck pain. She reports that the symptoms are equal in both hands. She denies o ne hand being worse than the other. She reports that the numbness affects all digits of bot h hands. She reports that the numbness is strongest in the fourth and fifth fingers bilater ally. She reports that there is nothing that makes hand numbness better or worse. She repo rts that it is present all day every day. She denies elbow pain. She reports that she has some pain from her hand numbness that travels into her wrist bilaterally. She denies numbne ss waking her from sleep at night. She reports that shaking her hands does not wake them up . She reports that she has weakness in both hands. She describes her weakness as loss of g rip strength. She reports that she frequently drops objects with hands. She reports that w eakness may be related to not being able to feel how hard she is holding something. She reports that numbness involves all aspects of both feet. She denies numbness isolated to the toes. She denies back pain. She denies weakness in either lower extremity. She rep orts that the numbness is worse in her hands compared to her feet. Petra Kilpatrick Lorenathiago denies taking blood thinning medications such as Coumadin or heparin. She denies having implanted electronic device such as a pacemaker. She reports a history o f diabetes. They reports a history of thyroid disease. They denies a history of rheumatoid arthritis. They denies a history of chemical exposure. They denies a history of frequent alcohol consumption. Petra Dangelo reports that she has never had prior nerve conduction study. Past Medical History Past Medical History Diagnosis Date Degeneration of lumbar intervertebral disc Sprain of deltoid ligament of right ankle, sequela Hypothyroidism Type 2 diabetes mellitus (HCC) Asthma Idiopathic neuropathy HTN (hypertension) GERD without esophagitis Past Surgical History Past Surgical History Procedure Laterality Date Gallbladder surgery 1997 [facility] Sinus surgery 1998 [facility] Foot surgery Left 1999 Dr. Anguiano Family History: Family History Problem Relation Age of Onset Cancer Father Diabetes Mother Kidney disease Mother Diabetes Brother Arthritis Sister Hypertension Sister No Known Problems Paternal Grandfather Diabetes Paternal Grandmother No Known Problems Maternal Grandfather Diabetes Maternal Grandmother Diabetes Maternal Aunt Social History: Social History Social History Marital Status: Legally Spouse Name: N/A Number of Children: 0 Years of Education: N/A Occupational History DISABLED Social History Main Topics Smoking status: Former Smoker -- 0.25 packs/day Start date: 03/27/1990 Quit date: 03/27/1998 Smokeless tobacco: Never Used Alcohol Use: No Drug Use: No Sexual Activity: No 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 She reports that she hasn't worked since 2004. Allergies: Allergies Allergen Reactions Penicillins Medications: Outpatient Encounter Prescriptions as of 05/04/2016 Medication Sig Dispense Refill albuterol (VENTOLIN HFA) 90 mcg/puff inhaler Inhale 2 puffs into the lungs every 6 hour s as needed for Wheezing. doxazosin (CARDURA) 2 mg tablet Take 1-2 mg by mouth nightly. enalapril (VASOTEC) 5 mg tablet Take 5 mg by mouth Daily. fluconazole (DIFLUCAN) 100 mg tablet Take 100 mg by mouth every 7 days. fluticasone-salmeterol (ADVAIR) 500-50 mcg/puff diskus inhaler Inhale 1 puff into the l ungs Twice Daily. glimepiride (AMARYL) 4 mg tablet Take 4 mg by mouth every morning (before breakfast). hydrOXYzine hydrochloride (ATARAX) 10 mg tablet Take 10 mg by mouth Daily. levothyroxine (SYNTHROID, LEVOTHROID) 88 mcg tablet Take 176 mcg by mouth every morning (before breakfast). metFORMIN (GLUCOPHAGE) 500 mg tablet Take 500 mg by mouth 2 times daily (with breakfast & dinner). metoprolol succinate (TOPROL-XL) 50 mg 24 hr tablet Take 50 mg by mouth Daily. montelukast (SINGULAIR) 10 mg tablet Take 10 mg by mouth nightly. naproxen (NAPROSYN) 250 mg tablet Take 500 mg by mouth 2 times daily (with breakfast & dinner). nystatin-triamcinolone (MYCOLOG II) cream Apply topically 2 times daily. omeprazole (PRILOSEC) 20 mg capsule Take 20 mg by mouth every morning (before breakfast ). oxyCODONE-acetaminophen (PERCOCET) 5-325 mg per tablet Take 1 tablet by mouth every 8 h ours as needed for Pain. raNITIdine (ZANTAC) 300 MG tablet Take 300 mg by mouth nightly. silver sulfADIAZINE (SILVADENE) 1% cream Apply topically Daily. traMADol (ULTRAM) 50 mg tablet Take 50 mg by mouth every 6 hours as needed for Pain. triamterene-hydrochlorothiazide (MAXZIDE) 75-50 mg per tablet Take 1 tablet by mouth Da charlie. No facility-administered encounter medications on file as of 05/04/2016. Review of Systems: ROS Objective Physical Exam: General Appearance: Alert and Oriented to person, place, time and situation, no distress. HEENT: PERRL, conjunctiva clear, no scleral icterus, EOM's intact Neck: No tenderness to cervical paraspinal muscles, limited ROM, Spurling's test negative b ilaterally Heart: Regular Rate and Rhythm, no murmurs, no gallops Lungs: Clear to auscultation bilaterally, no wheezing, crackles Abdomen: Obese, distended, positive for bowel sounds. Back: Symmetric, seated straight leg raise negative bilaterally Extremities: No clubbing, cyanosis or edema in all four extremities Neurological: Cranial Nerves: Intact Speech: Normal Sensory: Intact to light touch and pin prick in all four extremities. Subjectively sensati on is more reduced over the first, second, and third fingers of both hands compared to the f ourth and fifth fingers (where she reports sensation is better). Motor: Normal 5/5 strength in both upper extremities including biceps, triceps, wrist dorsiflexion , and finger abduction bilaterally. There is 4/5 hand manufacturing test technician bilaterally Reflexes: 3+ brisk and symmetric over the biceps, triceps, and brachioradialis of both upper extremit ies. Coordination: Intact with finger to nose testing in both upper extremities. Intact with he al to srinivasan slide in both lower extremities Tinel's test positive over the median nerve at both wrists. Phalen's test was positive on the bilaterally Spurling's test was equivocal bilaterally. Database: Lab Results Component Value Date WBC 8.0 01/10/2013 HGB 9.8* 01/10/2013 HCT 30.7* 01/10/2013 PLT 267 01/10/2013 NA 140 01/10/2013 K 4.3 01/10/2013 CL 110* 01/10/2013 BUN 12 01/10/2013 CO2 23* 01/10/2013 Assessment 1. Bilateral hand numbness 2. Hand weakness 3. History of diabetes mellitus 4. Brisk deep tendon reflexes Plan The differential diagnosis for Petra Dangelo's symptoms includes but is not limited to: Cervical spinal stenosis, bilateral C8 radiculopathy, lower brachial plexopathy, thoracic o utlet syndrome, ulnar neuropathy, and median neuropathy. She reports that the numbness is greatest over the fourth and fifth fingers. Physical exam demonstrates that the numbness is greatest over the first, second, and third fingers bilate rally. Her history presents as C8 radiculopathy or ulnar neuropathy. Her physical exam pre sentation as carpal tunnel syndrome. She is at increased risk for carpal tunnel syndrome be cause of her history of diabetes. She denies neck pain but she has hyperreflexia. Hyperreflexia can be seen in cervical spin al stenosis. If her nerve study returns as normal, cervical MRI will be requested to evalua te for cervical spinal stenosis. Nerve conduction study EMG cannot diagnose upper motor may michelle (Brain and spinal cord) issues. She will return to the clinic for nerve conduction study of both upper extremities to evalu ate for the differential diagnosis outlined above. The strongest suspicion is for bilateral carpal tunnel syndrome. Today we reviewed that the nerve study will hopefully help us localize the origin of sympto ms. We discussed that if carpal tunnel syndrome is discovered, that the nerve study can hel p determine if the carpal tunnel syndrome is mild, moderate or severe. We discussed that if carpal tunnel is mild the treatments tend to be conservative such as antiinflammatories, prasad nd therapy, wrist splints and sometimes steroid injection. We discussed that moderate and s evere carpal tunnel syndrome generally require surgical release. We discussed that with sev ere carpal tunnel syndrome there may be permanent damage to the nerve that does not resolve despite adequate surgical release. We discussed natural progress of carpal tunnel syndrome. We reviewed that carpal tunnel if left untreated, tends to get progressively worse over ti me. We discussed that if severe carpal tunnel syndrome is left untreated that the amount of permanent nerve damage can get worse leading to worse disability. Today we discussed how to prepare for nerve conduction study and EMG. We discussed not wea ring lotion and bringing a short sleeve shirt to wear. We discussed the process of the test , which involves small shocks to the nerves and that the study may include pin sticks, witho ut shock into the muscles. Thank you for allowing me to be involved in the care of your patient. If you have any ques tions regarding the care of your patient please don't hesitate to call. Approximately 45 minutes was spent face to face with Petra Dangelo, over half of which w as spent formulating and discussing their medical treatment plan. Oc Mooney MD () Cc: Roberth Gaspar MD documented in this en counter Plan of Treatment + + +--------+ + + | Name | Type | Priori | Associated Diagnoses | Order Schedule | | | | ty | | | + + +--------+ + + | Ambulatory referral | Outpatient | Routin | Bilateral hand | Ordered: 05/04/2016 | | to Physical Medicine | Referral | e | numbness Hand | | | Rehab | | | weakness History of | | | | | | diabetes mellitus | | + + +--------+ + + documented as of this encounter [...] unspecified provider. | | + + + LABS - EXTERNAL SCAN (11/04/2016 12:00 AM PDT) + + + | Narrative | Performed At | + + + | Ordered by an | | | unspecified provider. | | + + + documented in this encounter Visit Diagnoses + + | Diagnosis | + + | Bilateral hand numbness - Primary Disturbance of skin sensation | + + | Hand weakness Muscle weakness (generalized) | + + | History of diabetes mellitus Personal history of other endocrine, metabolic, and | | immunity disorders | + + | Brisk deep tendon reflexes Abnormal reflex | + + documented in this encounter
--- OUTSIDE RECORDS SUMMARY | ~2019-11-17 | XMS | Encounter Summary ---
Demographics + + + | Address | [address] | | | [place] [address] | + + + | Home Phone | | + + + | Preferred Language | Unknown | + + + | Marital Status | Legally | + + + | Buddhist Affiliation | Unknown | + + + | Race | Unknown | + + + | Ethnic Group | Unknown | + + + Author + + + | Author | [facility] | | | and [place] | + + + | Organization | [facility] | | | [...] Team Providers + +------+ + | Care Flooring Sales Manager Name | Role | Phone | + +------+ + | Roberth Gaspar MD | PCP | | + +------+ + Encounter Details +--------+ + + + + | Date | Type | Department | Care Team | Description | +--------+ + + + + | 09/12/ | Orders Only | [facility] | Cesar Hart MD | Essential | | 2020 | | NEPHROLOGY [place] | [address] [place] | hypertension, benign | | | | [address] | [address] [place], [place] | (Primary Dx); CKD | | | | [address] | [address] | (chronic kidney | | | | [place], [place] | | disease), stage III | | | | [address] | | (HCC) | | | | [phone] | | | +--------+ + + + [...] as of this encounter Plan of Treatment + +------+--------+ + + | Name | Type | Priori | Associated Diagnoses | Order Schedule | | | | ty | | | + +------+--------+ + + | Basic Metabolic | Lab | Routin | Essential | Expected: | | Panel | | e | hypertension, benign | 10/02/2019, Expires: | | | | | CKD (chronic | 09/12/2020 | | | | | kidney disease), | | | | | | stage III (HCC) | | + +------+--------+ + + | Protein/Creatinine | Lab | Routin | Essential | Expected: | | Ratio, Urine | | e | hypertension, benign | 10/02/2019, Expires: | | | | | CKD (chronic | 09/12/2020 | | | | | kidney disease), | | | | | | stage III (HCC) | | + +------+--------+ + + | Uric Acid | Lab | Routin | Essential | Expected: | | | | e | hypertension, benign | 10/02/2019, Expires: | | | | | CKD (chronic | 09/12/2020 | | | | | kidney disease), | | | | | | stage III (HCC) | | + +------+--------+ + + | Urinalysis With | Lab | Routin | Essential | Expected: | | Microscopic | | e | hypertension, benign | 10/02/2019, Expires: | | | | | CKD (chronic | 09/12/2020 | | | | | kidney disease), | | | | | | stage III (HCC) | | + +------+--------+ + + | CBC with | Lab | Routin | Essential | Expected: | | Differential | | e | hypertension, benign | 10/02/2019, Expires: | | | | | CKD (chronic | 09/12/2020 | | | | | kidney disease), | | | | | | stage III (HCC) | | + +------+--------+ + + documented as of this encounter Visit Diagnoses + + | Diagnosis | + + | Essential hypertension, benign - Primary | + + | CKD (chronic kidney disease), stage III (HCC) Chronic kidney disease, Stage III | | (moderate) | + + documented in this encounter"
--- OUTSIDE RECORDS SUMMARY | ~2019-11-17 | XMS | Encounter Summary ---
Demographics + + + | Address | [address] | | | [place] [address] | + + + | Home Phone | | + + + | Preferred Language | Unknown | + + + | Marital Status | Legally | + + + | Alevism Affiliation | Unknown | + + + | Race | Unknown | + + + | Ethnic Group | Unknown | + + + Author + + + | Author | [facility] | | | and [place] | + + + | Organization | [facility] | | [...] Team Providers + +------+ + | Care Building Carpenter Helper Name | Role | Phone | + +------+ + | Roberth Gaspar MD | PCP | | + +------+ + Encounter Details +--------+ + + + + | Date | Type | Department | Care Team | Description | +--------+ + + + + | 01/22/ | Orders Only | [facility] | Provider, | | | 2019 | | [facility] | MD [address] | | | | | [address] | [place] [address] | | | | | [address] [place], [place] | [place] [address] | | | | | [address] | | | | | | [phone] | | | +--------+ + + + [...]
--- OUTSIDE RECORDS SUMMARY | ~2019-11-17 | XMS | Encounter Summary ---
Demographics + + + | Address | [address] | | | [place] [address] | + + + | Home Phone | | + + + | Preferred Language | Unknown | + + + | Marital Status | Legally | + + + | Spiritism Affiliation | Unknown | + + + | Race | Unknown | + + + | Ethnic Group | Unknown | + + + Author + + + | Author | [facility] | | | and [place] | + + + | Organization | [facility] | | | and [...] Team Providers + +------+ + | Care Mobile Home Technician Name | Role | Phone | + +------+ + | No, Unknownpcp | PCP | | + +------+ + Encounter Details +--------+ + + + + | Date | Type | Department | Care Team | Description | +--------+ + + + + | 01/07/ | [facility] | [facility] | Mookie Bustamante, | | | 2012 - | Encounter | MED CTR MED ONC | [address] | | | | | [address] | [place] | | | 01/11/ | | [place] [address] | [address] | | | 2012 | | [phone] | | | +--------+ + + + [...] Mookie Bustamante MD - 01/11/2013 9:47 [place] [address] Patient Name: PHOENIX DANGELO Provider: Mookie Bustamante MD Unit #: [id number] Location: [address] [place] [address] #: [id number] : 1965 ADMISSION DATE: 01/07/2013 DISCHARGE DATE: [...] was admitted to the hospital by Dr. Wse. She saw Dr. Cor lidya, memorial mason, who did beside debridement. He recommended that [...] was to have her go home with [place] [facility]. However, the patient says her father will not allow that. Thus, she will be going to the [facility]. I did speak with Dr. Noe Gaspar on the phone on 01/10/2013. She needs to fol low up with him but she also should have the memorial mason to see her and I would say within s ix days. Ideally, you could have the memorial mason come to the longterm. Check with Dr. Noe Gaspar which memorial mason he wants her to see. She has seen a memorial mason in the [facility]. DISPOSITION: The patient to be discharged to the longterm in improved condition. DIET: Will be diabetic, low fat, low cholesterol. She should work with physical therapy and if you have a wound care nurse as well. She can ambulate but I would have her minimize pressure on her right forefoot where she has the [facility] er. CODE STATUS: FULL CODE. [...] Hypoglycemia protocol. We have one here but longterm might have one but we include d ours. Glucoscans before meals. Again, she needs close followup with Dr. Noe Gaspar as well as contact Dr. Noe Jara [facility]'s office for which memorial mason to see and ideally the memorial mason should start seeing he r at the longterm and have your wound care team see her as well in the longterm. Time of discharge more than 30 minutes. DICTATED BY: Mookie Bustamante MD Internal Medicine JOB #: [id number] EXT JOB #:[id number] cc: Dr Noe Gaspar in [facility] <<Signature on File>> Mookie Bustamante MD0 01/13/13 0536 <Electronically signed by Mookie Bustamante MD> documented in this encounter Plan of Treatment [...] | + +--------+ + + + | LEONOR TROUGH | Routin | 01/09/2013 | | [...] Performed At | + + + | Located Within [facility] | [place] | | Department [address] [facility] | [facility] | | [ rep ct [address]] [ rep [facility] | | [facility]] Signed | - IMAGING | | | | | Patient Name: PHOENIX DANGELO Physician: | | | SANDI.01 : 1965 Age: 47 Sex: F Unit #: [id number] | | | Exam Date: 01/10/13 Location: [address] [place] [address] | | | Report #: [id number] Page: | | | %(RAD)RES..mtdd.print.filter("pg") of %(RAD) | | | RES..mtdd.print.filter("tpg") | | | | | | Accession Number: [id number]; [id number]; | | | [id number], [id number], [id number], [id number] PICC | | | LINE PLACEMENT CLINICAL [...] Transcribed | | | Date/Time: 01/10/2013 17:07 Ocean Export Coordinator: TRINY | | | <<Signature on File>> | | | Campbell | | | Eloise Ocasio MD01/11/13 1032 <Electronically signed by Campbell Navas | | | Amarjit KAPLAN> Campbell Ocasio MD 01/11/13829 | | | Ocean Export Coordinator: Chantel Ouanbmzlxpkhg05/17/13829 | | | | | + + + + + + + + | Performing | Address | City/State/Zipcode | Phone Number | | Organization | | | | + + + + + | [facility] | [address] | [place] | [phone] | | [facility] | | [address] | | | - IMAGING | | | | + + + + + XR Chest PA or AP (01/11/2013 8:30 AM PDT) + + | Specimen | + + | | + + + + + | Narrative | Performed At | + + + | Located Within [facility] | [place] | | Department [address] [facility] | [facility] | | [ rep ct street1[address]] [ rep [facility] | | st zip] Signed | - IMAGING | | | | | Patient Name: PHOENIX DANGELO Physician: | | | RAS. : 1965 Age: 47 Sex: F Unit #: [id number] | | | Exam Date: 01/10/13 Location: [address] [place] [address] | | | Report #: [id number] Page: | | | %(RAD)RES..mtdd.print.filter("pg") of %(RAD) | | | RES..mtdd.print.filter("tpg") | | | | | | Accession Number: [id number]; [id number]; | | | [id number], [id number], [id number] PICC | | | LINE PLACEMENT CLINICAL [...] Transcribed | | | Date/Time: 01/10/2013 17:07 Ocean Export Coordinator: | | | <<Signature on File>> | | | Paul Hightower | | | Eloise Ocasio MD01/11/13 1032 <Electronically signed by Campbell Navas | | | Amarjit KAPLAN> Campbell Ocasio MD 01/11/13 7008 | | | Ocean Export Coordinator: Chantel Qqknqxewrhmxz66/17/13 0830 | | | | | + + + + + + + + | Performing | Address | City/State/Zipcode | Phone Number | | Organization | | | | + + + + + | [facility] | [address] | [place] | [phone] | | [facility] | | [address] | | | - IMAGING | | | | + + + + + XR Chest PA or AP (01/11/2013 8:30 AM PDT) + + | Specimen | + + | | + + + + + | Narrative | Performed At | + + + | Located Within [facility] | [place] | | Department [address] [facility] | [facility] | | [ rep ct street1+2] [ rep [facility] | | st zip] Signed | - IMAGING | | | | | Patient Name: PHOENIX DANGELO Physician: | | | SANDI.01 : 1965 Age: 47 Sex: F Unit #: [id number] | | | Exam Date: 01/10/13 Location: [address] [place] [address] | | | Report #: [id number] Page: | | | %(RAD)RES..mtdd.print.filter("pg") of %(RAD) | | | RES..mtdd.print.filter("tpg") | | | | | | Accession Number: [id number]; [id number]; | | | [id number], [id number], [id number], [id number] PICC | | | LINE PLACEMENT CLINICAL [...] Transcribed | | | Date/Time: 01/10/2013 17:07 Ocean Export Coordinator: | | | <<Signature on File>> | | | Campbell | | | Eloise Ocasio MD01/11/13 1032 <Electronically signed by Campbell Navas | | | Amarjit KAPLAN> Campbell Ocasio MD 01/11/13829 | | | Ocean Export Coordinator: [facility] Qhonmeubymvln32/17/13 0830 | | | | | + + + + + + + + | Performing | Address | City/State/Zipcode | Phone Number | | Organization | | | | + + + + + | [facility] | [address] | [place], [place] | [phone] | | [facility] | | [address] | | | - IMAGING | | | | + + + + + XR Chest PA or AP (01/10/2013 3:18 PM PDT) + + | Specimen | + + | | + + + + + | Narrative | Performed At | + + + | Located Within [facility] | [place] | | Department [address] [place] [address] | [facility] | | [ rep ct [address]] [ rep [facility] | | [facility]] Signed | - IMAGING | | | | | Patient Name: RAJESHSOLITARIOROMYPHOENIX Kilpatrick Physician: | | | CORDELIA. : 1965 Age: 47 Sex: F Unit #: [id number] | | | Exam Date: 01/10/13 Location: [address] [place] [address] | | | Report #: [id number] Page: | | | %(RAD)RES..mtdd.print.filter("pg") of %(RAD) | | | RES..mtdd.print.filter("tpg") | | | | | | Accession Number: [id number] | | | [id number], [id number], [id number], [id number] PICC LINE PLACEMENT | | | CLINICAL [...] Transcribed Date/Time: 01/10/2013 17:07 | | | Ocean Export Coordinator: <<Signature on File>> | | | | | | Campbell Ocasio MD01/10/13 3970 <Electronically signed by Campbell Navas | | | Amarjit KAPLAN> Campbell Ocasio MD 01/10/13 3853 | | | Ocean Export Coordinator: [facility] Mwdluwtxegkuf00/16/13 3336 | | | | | + + + + + + + + | Performing | Address | City/State/Zipcode | Phone Number | | Organization | | | | + + + + + | [facility] | [address] | [place] | [phone] | | [facility] | | [address] | | | - IMAGING | | [...] + + + + | WBC | 8.0 | 4.0 - 11.0 K/uL | [facility] | | | | | | [facility] | | | | | | MEDICAL | | | | | | CENTER - | | | | | | LABORATORY | | + + + + + + | RBC | 3.50 (L) | 3.70 - 5.20 | [facility] | | | | | M/uL | [facility] | [...] | | Eosinophils | | | [facility] | | [...] | | Neutrophils | | | [facility] | | [...] + | [facility] | [address] | [place] | [phone] | | [facility] | | [address] | | | - LABORATORY | | | | + + + + + | [facility] | [address] | [place] | | | [facility] | | [address] | | | - LABORATORY [...] 12 | 7 - 18 mg/dL | [facility] | | | | | | [facility] | | | | | | MEDICAL | | | | | | CENTER - | | | | | | LABORATORY | | + + + + + + | Creatinine | 0.86 | 0.60 - 1.30 | [facility] | | | | | mg/dL | [facility] | | | | | | MEDICAL | | | | | | CENTER - | | | | | | LABORATORY | | + + + + + + | Estimated | >60Comment: For | >60 mL/min/A | [facility] | | | GFR | -Americans, | [...] + | [facility] | [address] | [place], [place] | [phone] | | [facility] | | [address] | | | - LABORATORY | | | | + + + + + | [facility] | [address] | [place], [place] | | | [facility] | | [address] | | | - LABORATORY [...] + + + + | WBC | 8.7 (A) | 4.0 - 11.0 K/uL | [facility] | | | | | | [facility] | | | | | | MEDICAL | | | | | | CENTER - | | | | | | LABORATORY | | + + + + + + | RBC | 3.65 (L) | 3.70 - 5.20 | [facility] | | | | | M/uL | [facility] | [...] + | [facility] | [address] | [place], [place] | [phone] | | [facility] | | [address] | | | - LABORATORY | | | | + + + + + | [facility] | [address] | [place], [place] | | | [facility] | | [address] | | | - LABORATORY [...] 14 | 7 - 18 mg/dL | [facility] | | | | | | [facility] | | | | | | MEDICAL | | | | | | CENTER - | | | | | | LABORATORY | | + + + + + + | Creatinine | 1.06 | 0.60 - 1.30 | [facility] | | | | | mg/dL | [...] + | [facility] | [address] | [place], [place] | [phone] | | [facility] | | [address] | | | - LABORATORY | | | | + + + + + | [facility] | [address] | [place], [place] | | | [facility] | | [address], [facility] | | | - LABORATORY | | | | + + + + + Vancomycin, Trough (01/09/2013 8:48 AM PDT) + + + [...] + | [facility] | [address] | [place], [place] | [phone] | | [facility] | | [address] | | | - LABORATORY | | | | + + + + + | [facility] | [address] | [place], [place] | | | [facility] | | [address] [place] [address] | | | - LABORATORY | | [...] + + + | WBC | 13.9 (H) | 4.0 - 11.0 K/uL | [facility] | | | | | | [facility] | | | | | | MEDICAL | | | | | | CENTER - | | | | | | LABORATORY | | + + + + + + | RBC | 3.46 (L) | 3.70 - 5.20 | [facility] | | | | | M/uL | [facility] | [...] (H) | 0.0 - 1.0 K/uL | [facility] [...] + | [facility] | [address] | [place] | [phone] | | [facility] | | [address] | | | - LABORATORY | | | | + + + + + | [facility] | [address] | [place], [place] | | | [facility] | | [address], [facility] | | | - LABORATORY | [...] | 13.2 | 12 - 20 | [facility] | | | ine Ratio | | [...] 4.2 | 3.5 - 5.1 mEq/l | [facility] [...] + | [facility] | [address] | [place], [place] | [phone] | | [facility] | | [address] | | | - LABORATORY | | | | + + + + + | [facility] | [address] | [place], [place] | | | [facility] | | [facility], [facility] | | | - LABORATORY | [...] + | [facility] | [address] | [place] | [phone] | | [facility] | | [address] | | | - LABORATORY | | | | + + + + + | [facility] | [address] | [place] | | | [facility] | | [address] | | | - LABORATORY [...] (H) | 70 - 109 mg/dL | [facility] | | | | | | ST[facility] [...] (H) | 7 - 18 mg/dL | [facility] | | | | | | [facility] | | | | | | MEDICAL | | | | | | CENTER - | | | | | | LABORATORY | | + + + + + + | Creatinine | 1.49 (H) | 0.60 - 1.30 | [facility] | | | | | mg/dL | [facility] | | | | | | MEDICAL | | | | | | CENTER - | | | | | | LABORATORY | | + + + + + + | Estimated | 38 (L)Comment: For | >60 mL/min/A | [facility] | | | GFR | -Americans, | [...] | 16.8 | 12 - 20 | [facility] | [...] | 11.8 | 6.0 - 17.0 | [facility] | | | | | [...] [address] | [place] | [phone] | | [facility] | | [address] | | | - LABORATORY | | | | + + + + + | [facility] | [address] | [place] | | | [facility] | | [address], [facility] | | | - LABORATORY | | | | + + + + + CBC no Differential (01/07/2013 1:33 PM PDT) + + + + + + | Component | Value | Ref Range | Performed | Pathologist | | | | | At | Signature | + + + + + + | WBC | 10.1 | 4.0 - 11.0 K/uL | [facility] | | | | | [facility] | | | | | | MEDICAL | | | | | | CENTER - | | | | | | LABORATORY | | + + + + + + | RBC | 3.70 | 3.70 - 5.20 | [facility] | | | | | M/uL | [facility] | [...] + | [facility] | [address] | [place], [place] | [phone] | | [facility] | | [address] | | | - LABORATORY | | | | + + + + + | [facility] | [address] | [place], [place] | | | [facility] | | [id number] [place] [address] | | | - LABORATORY | | [...] | | | | | | Standards [place] | | | | | | Rifampin [...] | | | | | | Standards [place] | | | | | | Rifampin [...] + | [facility] | [address] | [place] | [phone] | | [facility] | | [address] | | | - LABORATORY | | | | + + + + + | [facility] | [address] | [place] | | | [facility] | | [id number] [place] [address] | | | - LABORATORY | | | | + + + + + documented in this encounter Visit Diagnoses Not on filedocumented in this encounter
--- OUTSIDE RECORDS SUMMARY | ~2019-11-17 | XMS | Encounter Summary ---
Demographics + + + | Address | [address] | | | [place] [address] | + + + | Home Phone | | + + + | Preferred Language | Unknown | + + + | Marital Status | Legally | + + + | Yazdanism Affiliation | Unknown | + + + | Race | Unknown | + + + | Ethnic Group | Unknown | + + + Author + + + | Author | [facility] | | | and [place] | + + + | Organization | [facility] | | | and [...] Team Providers + +------+ + | Care Research And Evaluation Analyst Name | Role | Phone | + [...] PHYSIATRY [address] | MD [address] | | | | | [address] | [place], [place] | | | | | [place], [place] | [address] | | | | | [address] | | | | | | [phone] | | | +--------+ + + + [...]
--- OUTSIDE RECORDS SUMMARY | ~2019-11-17 | XMS | Encounter Summary ---
Demographics + + + | Address | [address] | | | [place] [address] | + + + | Home Phone | | + + + | Preferred Language | Unknown | + + + | Marital Status | Legally | + + + | Adventist Affiliation | Unknown | + + + | Race | Unknown | + + + | Ethnic Group | Unknown | + + + Author + + + | Author | [facility] | | | and [place] | + + + | Organization | [facility] | | [...] Team Providers + +------+ + | Care Comber Fixer Name | Role | Phone | + +------+ + | Roberth Gaspar MD | PCP | | + +------+ + Encounter Details +--------+ + + + + | Date | Type | Department | Care Team | Description | +--------+ + + + + | 11/04/ | Orders Only | [facility] | Conversion | | | 2017 | | NEPHROLOGY [place] | Transaction, | | | | | [address] | Provider Unknown | | | | | [address] [place] | [phone] | | | | | [address] | (Fax) | | | | | [phone] | | | +--------+ + + + [...]
--- OUTSIDE RECORDS SUMMARY | ~2019-11-17 | XMS | Encounter Summary ---
Demographics + + + | Address | [address] | | | [place] [address] | + + + | Home Phone | | + + + | Preferred Language | Unknown | + + + | Marital Status | Legally | + + + | Latter Day Affiliation | Unknown | + + + [...] Team Providers + +------+ + | Care Top Cleaner Name | Role | Phone | + +------+ + | Roberth Gaspar MD | PCP | | + +------+ + Encounter Details +--------+ + + + + | Date | Type | Department | Care Team | Description | +--------+ + + + + | 01/22/ | Orders Only | [facility] | Provider, | | | 2019 | | SYSTEM GENERIC OP | [address] | | | | | [address] | [place] | | | | | [address] [place], [place] | [place] [address] | | | | | [address] | | | | | | [phone] | | | +--------+ + + + [...]
--- OUTSIDE RECORDS SUMMARY | ~2019-11-17 | XMS | Encounter Summary ---
Demographics + + + | Address | [address] | | | [place] [address] | + + + | Home Phone | | + + + | Preferred Language | Unknown | + + + | Marital Status | Legally | + + + | Voodoo Affiliation | Unknown | + + + | Race | Unknown | + + + | Ethnic Group | Unknown | + + + Author + + + | Author | [facility] | | | and [place] | + + + | Organization | [facility] | | | [...] Team Providers + +------+ + | Care Boiler Maker Name | Role | Phone | + +------+ + | Roberth Gaspar MD | PCP | | + +------+ + Reason for Visit + + + | Reason | Comments | + + + | Lab Results | | + + + Encounter Details +--------+ + + + + | Date | Type | Department | Care Team | Description | +--------+ + + + + | 11/11/ | Telephone | [facility] [place] | Oc Mooney, | Lab Results | | 2017 | | PHYSIATRY [address] | MD [address] | | | | | [address] | [place] | | | | | [place], [place] | [address] | | | | | [address] | | | | | | [phone] | | | +--------+ + + + [...]
--- OUTSIDE RECORDS SUMMARY | ~2019-11-17 | XMS | Encounter Summary ---
Demographics + + + | Address | [address] | | | [place] [address] | + + + | Home Phone | | + + + | Preferred Language | Unknown | + + + | Marital Status | Legally | + + + | Roman Catholic Affiliation | Unknown | + + + | Race | Unknown | + + + | Ethnic Group | Unknown | + + + Author + + + | Author | [facility] | | | and [place] | + + + | Organization | [facility] | | [...] Team Providers + +------+ + | Care Nozzle And Sleeve Worker Name | Role | Phone | + [...] | hand | [address] | | | | n | numbness | [address] | [place], | | | | | Hand | [place], | [place] [address] | | | | | weakness | [place] [address] | Phone: | | | | | History of | Phone: | [phone] | | | | | diabetes | [phone] | Fax: | | | | | mellitus | Fax: | [phone] | | | | | Procedures | [phone] | | | | | | DOS [...] | PHYSIATRY [address] | [address] | polyneuropathy | | | | [address] | [place] | (Primary Dx); | | | | [place], [place] | [address] | Bilateral hand | | | | [address] | | numbness; Hand | | | | [phone] | | weakness; History of | | [...] might be different fro m the original. [facility] Physical Medicine & Rehabilitation [address] [place] [address], [facility] [address] [place] [address] Test Date: 10/06/2016 Patient Name: Petra Dangelo : 1965 Physician: Oc Mooney MD (Jr.) MR #: [id number] Sex: Female Referring Physician: Roberth Gaspar MD [...] nds which she describes as loss of biofuels technology manager strength. She reports numbness in both feet [...] to mid-forelegs bilaterally. She has 4/5 hand biofuels technology manager strength bilaterally. The remainder of strength is [...]
--- OUTSIDE RECORDS SUMMARY | ~2019-11-17 | XMS | Encounter Summary ---
Demographics + + + | Address | [address] | | | [place] [address] | + + + | Home Phone | | + + + | Preferred Language | Unknown | + + + | Marital Status | Legally | + + + | Muslim Affiliation | Unknown | + + + | Race | Unknown | + + + | Ethnic Group | Unknown | + + + Author + + + | Author | [facility] | | | and [place] | + + + | Organization | [facility] | | | [...] Team Providers + +------+ + | Care Quarter Supervisor Name | Role | Phone | + +------+ + | Roberth Gaspar MD | PCP | | + +------+ + Encounter Details +--------+ + + + + | Date | Type | Department | Care Team | Description | +--------+ + + + + | 10/27/ | Orders Only | [facility] | Cesar Hart MD | | | 2018 | | NEPHROLOGY [place] | [address] [facility] | | | | | [address] | [address] [place], [place] | | | | | [address] [place], [place] | [address] | | | | | [address] | | | | | | [phone] | | | +--------+ + + + [...] | EXTERNAL LAB: CBC | Routin | 10/27/2017 | | Results for this | | | e | 1:24 PM | | procedure are in the | | | | PDT | | results section. | + +--------+ + + + | URINALYSIS WITH | Routin | 10/27/2017 | | Results for this | | MICROSCOPIC IF | e | 1:24 PM | | procedure are in the | | INDICATED | | PDT | | results section. | + +--------+ + + + | PROTEIN/CREATININE | Routin | 10/27/2017 | | Results for this | | RATIO, URINE | e | 1:24 PM | | procedure are in the | | | | PDT | | results section. | + +--------+ + + + | URIC ACID | Routin | 10/27/2017 | | Results for this | | | e | 1:24 PM | | procedure are in the | | | | PDT | | results section. | + +--------+ + + + | BASIC METABOLIC | Routin | 10/27/2017 | | Results for this | | PANEL | e | 1:24 PM | | procedure are in the | | | | PDT | | results section. | + +--------+ + + + documented in this encounter Results Protein/Creatinine Ratio, Urine (10/27/2017 1:24 PM PDT) + +-------+ + + + | Component | Value | Ref Range | Performed | Pathologist | | | | | At | Signature | + +-------+ + + + | Protein/Cre | 102.4 | 0 - 150 | EXTERNAL | | | at Ratio | | | LAB | | + +-------+ + + + + + | Specimen | + + | Urine specimen | | (specimen) | + + + +---------+ + + | Performing | Address | City/State/Zipcode | Phone Number | | Organization | | | | + +---------+ + + | EXTERNAL LAB | | | | + +---------+ + + Urinalysis with Microscopic if Indicated (10/27/2017 1:24 PM PDT) + + + + + + | Component | Value | Ref Range | Performed | Pathologist | | | | | At | Signature | + + + + + + | Color | Yellow | | EXTERNAL | | | | | | LAB | | + + + + + + | Clarity | Cloudy | | EXTERNAL | | | | | | LAB | | + + + + + + | Spec Grav, | 1.019 | 1.005 - 1.030 | EXTERNAL | | | Fluid | | | LAB | | + + + + + + | Leukocyte | Trace | | EXTERNAL | | | Esterase, | | | LAB | | | Urine | | | | | + + + + + + | Nitrite, | Negative | | EXTERNAL | | | Urine | | | LAB | | + + + + + + | Urobilinoge | Normal | | EXTERNAL | | | n, Urine | | | LAB | | + + + + + + | Total | Negative | | EXTERNAL | | | Protein | | | LAB | | + + + + + + | pH, Urine | 5 | 5 - 9 | EXTERNAL | | | | | | LAB | | + + + + + + | Blood, | Negative | | EXTERNAL | | | Urine | | | LAB | | + + + + + + | Ketones | Negative | | EXTERNAL | | | | | | LAB | | + + + + + + | Bilirubin, | Negative | | EXTERNAL | | | Urine | | | LAB | | + + + + + + | Glucose, | Negative | | EXTERNAL | | | Urine | | | LAB | | + + + + + + + + | Specimen | + + | Urine specimen | | (specimen) | + + + + + | Narrative | Performed At | + + + | WBC's: 10 Epithelial Cell: Squamous 2+ Bacteria: 1+ | EXTERNAL LAB | + + + + +---------+ + + | Performing | Address | City/State/Zipcode | Phone Number | | Organization | | | | + +---------+ + + | EXTERNAL LAB | | | | + +---------+ + + External Lab: CBC (10/27/2017 1:24 PM PDT) + + + + + + | Component | Value | Ref Range | Performed | Pathologist | | | | | At | Signature | + + + + + + | WBC | 11.4 (A) | 4.5 - 11.0 10 | EXTERNAL | | | | | | LAB | | + + + + + + | Red Blood | 4.83 | 3.8 - 5.1 10 | EXTERNAL | | | Cells | | | LAB | | | Counted | | | | | + + + + + + | Hemoglobin | 11.0 (A) | 12 - 16 g/dL | EXTERNAL | | | | | | LAB | | + + + + + + | Hematocrit, | 36 | 35 - 45 % | EXTERNAL | | | POC | | | LAB | | + + + + + + | MCV | 74.6 (A) | 81 - 99 fL | [...] + + + + | Platelet | 420 | 140 - 440 K/ L | EXTERNAL | | | Count | | | LAB | | | Plasma | | | | | + + + + + + | RDW-CV | 18.2 (A) | 10.5 - 15.0 % | [...] | | | + +---------+ + + Uric Acid (10/27/2017 1:24 PM PDT) + +---------+ + + + | Component | Value | Ref Range | Performed | Pathologist | | | | | At | Signature | + +---------+ + + + | Uric Acid | 7.7 (A) | 2.3 - 6.6 | EXTERNAL | | | | | [...] + +---------+ + + Basic Metabolic Panel (10/27/2017 1:24 PM PDT) + +---------+ + + + | Component | Value | Ref Range | Performed | Pathologist | | | | | At | Signature | + +---------+ + + + | Glucose, | 224 (A) | 70 - 100 mg/dL | EXTERNAL | | | Fasting | | | LAB | | + +---------+ + + + | BUN | 17 | 6 - 23 mg/dL | EXTERNAL | | | | | | LAB | | + +---------+ + + + | Creatinine | 1.15 | 0.7 - 1.33 | EXTERNAL | | | | | mg/dL | LAB | | + +---------+ + + + | BUN/Creatin | 14.8 | 6.0 - 28.6 | EXTERNAL | | | ine Ratio | | | LAB | | + +---------+ + + + | Calcium | 9.1 | 8.4 - 10.2 | EXTERNAL | | | | | mg/dL | LAB | | + +---------+ + + + | Na | 140 | 132 - 143 | EXTERNAL | | | | | mmol/L | LAB | | + +---------+ + + + | K | 4.8 | 3.6 - 5.1 | EXTERNAL | | | [...] + + + | Anion Gap | 18.8 | 7 - 21 mmol/L | EXTERNAL | | | | | | LAB | | + +---------+ + + + | Estimated | 50 (A) | 60 mg/dL | EXTERNAL | | | GFR [...]
--- OUTSIDE RECORDS SUMMARY | ~2019-11-17 | XMS | Encounter Summary ---
Demographics + + + | Address | [address] | | | [place] [address] | + + + | Home Phone | | + + + | Preferred Language | Unknown | + + + | Marital Status | Legally | + + + | Congregation Affiliation | Unknown | + + + [...] Team Providers + +------+ + | Care Advanced Manufacturing Engineer Name | Role | Phone | [...] | PHYSIATRY [address] | [address] | | | | | [address] | [place] | | | | | [place] | [address] | | | | | [address] | | | | | | [phone] | | | +--------+ + + + [...]
--- OUTSIDE RECORDS SUMMARY | ~2019-11-17 | XMS | Encounter Summary ---
Demographics + + + | Address | [address] | | | [place] [address] | + + + | Home Phone [...] + + + | Author | [facility] | | | and [place] | + + + | Organization | [facility] | | [...] Team Providers + +------+ + | Care Social Secretary Name | Role | Phone | + [...] PHYSIATRY [address] | MD [address] | | | | | [address] | [place], [place] | | | | | [place], [place] | [address] | | | | | [address] | | | | | | [phone] | | | +--------+--------+ + + + [...]
--- OUTSIDE RECORDS SUMMARY | ~2019-11-17 | XMS | Encounter Summary ---
Demographics + + + | Address | [address] | | | [place] [address] | + + + | Home Phone | | + + + | Preferred Language | Unknown | + + + | Marital Status | Legally | + + + | Mormonism Affiliation | Unknown | + + + [...] Team Providers + +------+ + | Care Assembler Hydraulic Backhoe Name | Role | Phone | + +------+ + | Roberth Gaspar MD | PCP | | + +------+ + Reason for Visit + + + | Reason | Comments | + + + | Numbness | bilateral hands | + + + Encounter Details +--------+---------+ + + + | Date | Type | Department | Care Team | Description | +--------+---------+ + + + | 01/05/ | Office | [facility] [place] | Oc Mooney, | Peripheral | | 2017 | Visit | [address]SIATRY [address] | MD [address] | polyneuropathy | | | | [address] | [place], [place] | (Primary Dx); | | | | [place], [place] | [address] | Neuropathic pain; | | | | [address] | | Vitamin B12 | | | | [phone] | | deficiency; Angular | | | | | | cheilitis; History | | | | | | of diabetes mellitus | +--------+---------+ + + + Social History [...] + + + | Blood Pressure | 104/61 | 01/05/2017 4:26 PM | | | | | PDT | | + + + + + | Pulse | 103 | 01/05/2017 4:26 PM | | | [...] Weight | 111.6 kg (246 lb) | 01/05/2017 4:26 PM | | | | | PDT | | + + + + + | Height | 160 cm (5' 3") | 01/05/2017 4:26 PM | | | | | PDT | | + + + + + | Body Mass Index | 43.58 | 01/05/2017 4:26 PM | | | | | PDT | | + + + + + documented in this encounter Patient Instructions Patient Instructions Donna Jara, Bulbs Farmworker - 01/05/2017 4:00 PM PDTBegin the consumption of vitamins. Continue care with Roberth Gaspar MD for vitamin deficiency's and diabetes. Try to associate vegetables into everyday meals. documented in this encounter Progress Notes Oc Mooney MD - 01/05/2017 4:00 PM PDTFormatting of this note might be different fro m the original. CHIEF COMPLAINT: Chief Complaint Patient presents with Numbness bilateral hands HISTORY OF PRESENT ILLNESS: Petra Dangelo is a 51 y.o. female being seen today in follow-up for complaints of bilate ral hand numbness, primarily left hand. Petra Dangelo was last seen on 10/06/16. It w as recommend that Petra Dangelo follow up with Roberth Gaspar MD for anemia jarek atment. Petra Dangelo reports that she has not yet started iron supplements. She indicate s that her Roberth Gaspar MD wanted to run more test before she started the iron. Overall Petra Dangelo reports that their symptoms are worsening. Petra Dangelo indica naeem that she has increased numbness in the fifth- third finger on the left. She rates the pain as moderate. She describes the pain as aching, sharp or stabbing. Petra Dangelo re ports that she is now having feelings of pin pricks in her finger tips. Her symptoms worsen with cold temperatures. Her symptoms improve with pain medication. Petra Dangelo does describe numbness of the bilateral hands. She does report weakness of the bilateral hands . Petra Dangelo indicates that she doesn't eat very much. Petra Dangelo indicates that she will eat soups, sandwiches and sometimes cereals. She indicates that she doesn't eat bianka y much vegetables as she should. Petra Dangelo indicates that she does not eat tomatoes because it upsets her stomach. Petra Dangelo also indicates that's she mostly eats chicke n. Petra Dangelo indicates that she has a stomach ulcer and is currently under treatment. Petra Dangelo denies trying medication gabapentin, nortriptyline, Cymbalta and Lyrica in the past. CURRENT MEDICATIONS: Current Outpatient Prescriptions Medication Sig Dispense Refill albuterol (VENTOLIN HFA) [...] 2 times daily (with breakfast & dinner). nystatin (MYCOSTATIN) cream as needed. 0 nystatin-triamcinolone (MYCOLOG II) cream Apply topically 2 [...] 1 tablet by mouth Da charlie. No current facility-administered medications for this visit. ALLERGIES: Allergies Allergen Reactions Penicillins REVIEW OF SYSTEMS: ROS GENERALLY: No fever, no night sweats, no anemia, no fatigue, no recent profound weight ch anges. EYES: No eye problems, + use of corrective lenses, no eye injury, no double vision, no bli ndness. EARS, NOSE, AND THROAT: No changes in taste or smell, no hearing difficulty, no ringing in the ears, no ear drainage, no dizziness, no voice changes, no difficulty swallowing, no sig nificant snoring, no sleep apnea, no sinus problems, no major dental work. NEUROLOGICALLY:The patient has + numbness/pain of arms, no numbness/pain of legs, + awake w ith numbness/pain, no weakness, no muscle aching, no coordination difficulty, no change in w alk, no head injury, no neck injury, no back injury, no pain in neck, no pain in back, no st roke, no fainting spells, no loss of consciousness, no tremor/shaking, no seizures, no heada ches, no migraine, no memory loss, no speech difficulty, no confusion and no numbness of fac e. PSYCHIATRIC: No depression, no sleep disorders, + anxiety, no bipolar disorder, no psychot ic episodes. CARDIOVASCULAR: No heart attacks, no heart murmur, no heart fluttering, no chest pain, no ankle swelling. LUNG DISEASE: No shortness of breath, no cough, no tuberculosis, no bloody cough, no asth ma, no emphysema/COPD. GASTROINTESTINAL: No bowel disease, no nausea or vomiting, no rectal bleeding, no constipa tion, no stool incontinence, no liver disease, no gallbladder disease, no abdominal pain, no ulcers. KIDNEY DISEASE: No urinary frequency, no painful or difficult urination, no incontinence. ENDOCRINE: + diabetes, + thyroid disease, no osteopenia or osteoporosis, no breast drainag e. SKIN: No breast lumps, no skin changes, no rashes, no itches. HEMATOLOGIC/LYMPHATIC: No enlarged lymph nodes, no easy or unusual bleeding, no personal h istory of cancer. RHEUMATOLOGIC: + joint arthritis, no rheumatoid arthritis. PHYSICAL EXAMINATION: Blood pressure 104/61, pulse 103, resp. rate 18, height 1.6 m (5' 3"), weight 111.6 kg (246 lb). Body mass index is 43.58 kg/m. GENERAL: The patient is well developed and well nourished. HEENT: Normocephalic and atraumatic. Normal sclerae without icterus. Red lesions at the co rners of the month bilaterally. NECK (ANTERIOR): There is no apparent cervical lymphadenopathy or thyromegaly. PULMONARY: The patient is in no acute respiratory distress with unlabored respirations. CARDIOVASCULAR: Regular rate and rhythm ABDOMEN: Distended. Obese SKIN: Limited skin exam shows lesions at corners of mouth, bilaterally. Possible angular ch eilitis around mouth. NEUROLOGIC: The patient is awake, alert, and oriented. She follows simple and complex commands. Her speech is fluent. She comprehends speech well. She has no apparent deficits with short or assistant terminal manager memory. The cranial nerves appear grossly intact. Subjective sensory change in both hands, unchanged compared to 10/06/2016. 4/5 hand qualification engineer bilaterally. Remainder of strength normal in major muscle groups of both upper extremities. MUSCULOSKELETAL : Phalen's test positive bilaterally. Tinel's test positive over the media n nerves at both wrists. DATABASE: No new imaging was available to review. Labs completed on 11/13/16 were unremarkable. Labs demonstrated elevated glucose levels, ane john and B12 deficiency. ASSESSMENT: 1. Peripheral polyneuropathy (HCC) 2. Neuropathic pain 3. Vitamin B12 deficiency 4. Angular cheilitis 5. History of diabetes mellitus PLAN: 1. Petra Dangelo was advised to follow up care with Roberth Gaspar MD for the care of vitamin deficiencies and diabetes. Today we discussed that use of Prilosec may contr ibute to impaired vitamin absorption. Petra Dangelo was advised to contribute vegetables into her everyday diet. She does not routinely eat vegetables. 2. Medication Gabapentin was discussed today that may help relieve neuropathic pain. Petra Dangelo was advised to take medication . She will start at low dose and taper up. We re viewed common sided effects to watch for. We discussed that if she has side effects that sh e should reduce the dose back down to the last dose she was able to tolerate without side ef fects. We discussed that if she has side effects at the lowest dose, she will need to stop the medication. She was advised to call the clinic if she had any questions or medication s justine effects. 4. Alcohol consuption was also dicussed that may be associated with B12 defieicncies. Faustino Dangelo was advised to avoid alcohol consumption. She does not routinely drink alcohol, now or in the past. 5. Petra Dangelo should return to clinic to review medication gabapentin. 6. She has lesions at the corners of her mouth bilaterally. It appears to be most consist ent with angular cheilitis. She was advised to follow up with Roberth Gaspar MD t o treat this finding. Today we reviewed that vitamin B2, iron deficiency, fungal infection and diabetes have been associated with increased risk of developing angular cheilitis. Petra Dangelo has peripheral neuropathy. Her history of diabetes as well as her vitamin B12 deficiency are likely contributing factors. She has already started treatment for B12 deficiency and is already treating her diabetes with Roberth Gaspar MD. Her MCV i s low. This does raise the question of iron deficiency as well. She believes that this was already tested and that she is now also taking iron supplements. She will continue working with Roberth Gaspar MD to treat her vitamin deficiencies. I will see her back wi th a goal of managing and reducing neuropathic pain, using medication such as gabapentin. I spent 30 minutes in visit with Petra Dangelo today with the majority of time spent cou nselling the patient on her diagnosis, options for her care, and coordinating her care. I, Oc Mooney MD personally performed the services described in this documentation, as scribed by in my presence, YON Ibarra and are both accurate and complete. Oc Mooney MD - 01/05/2017. documented in this en counter Plan of Treatment Not on filedocumented as [...] | | neuropathy | + + | Neuropathic pain Neuralgia, neuritis, and radiculitis, unspecified | + + | Vitamin B12 deficiency Other B-complex deficiencies | + + | Angular cheilitis Diseases of lips | + + | History of diabetes mellitus Personal history of other endocrine, metabolic, and | | immunity disorders | + + documented in this encounter
--- OUTSIDE RECORDS SUMMARY | ~2019-11-17 | XMS | Encounter Summary ---
Demographics + + + | Address | [address] | | | [place] [address] | + + + | Home Phone [...] + + + | Author | [facility] | | | and [place] | + + + | Organization | [facility] | | [...] Team Providers + +------+ + | Care Director Translational Name | Role | Phone | + [...] | PHYSIATRY [address] | [address] | | | | | [address] | [place] | | | | | [place] | [address] | | | | | [address] | | | | | | [phone] | | | +--------+ + + + [...]
--- OUTSIDE RECORDS SUMMARY | ~2019-11-17 | XMS | Encounter Summary ---
Demographics + + + | Address | [address] | | | [place] [address] | + + + | Home Phone [...] Providers + +------+ + | Care Manager Athletics Name | Role | Phone | + [...] + + | 01/05/ | Office | [facility] [place] | Oc Mooney, | Peripheral | | 2017 | Visit | [address]SIATRY [address] | MD [address] | polyneuropathy | | | | [address] | [place], [place] | (Primary Dx); | | | | [place], [place] | [address] | Neuropathic pain; | | | | [address] | | Vitamin B12 | | | | [phone] | | deficiency; Angular | | | [...] encounter Patient Instructions Patient Instructions Donna Jara, Switch Adjuster - 01/05/2017 4:00 PM PDTBegin the consumption [...] has no apparent deficits with short or terminal operations manager memory. The cranial nerves appear grossly intact. Subjective sensory change in both hands, unchanged compared to 10/06/2016. 4/5 hand peace officer bilaterally. Remainder of strength normal in major [...]
--- OUTSIDE RECORDS SUMMARY | ~2019-11-17 | XMS | Encounter Summary ---
Demographics + + + | Address | [address] | | | [place] [address] | + + + | Home Phone [...] + + + | Author | [facility] | | | and [place] | + + + | Organization | [facility] | | | [...] Team Providers + +------+ + | Care Jacquard Card Cutter Name | Role | Phone | + +------+ + | Roberth Gaspar MD | PCP | | + +------+ + Encounter Details +--------+ + + + + | Date | Type | Department | Care Team | Description | +--------+ + + + + | 11/04/ | Orders Only | [facility] | Conversion | | | 2017 | | NEPHROLOGY [place] | Transaction, | | | | | [address] | Provider Unknown | | | | | [address] [place] | [phone] | | | | | [phone] | (Fax) | | | | | [phone] | | | +--------+ + + + [...]
--- OUTSIDE RECORDS SUMMARY | ~2019-11-17 | XMS | Encounter Summary ---
Demographics + + + | Address | [address] | | | [place] [address] | + + + | Home Phone [...] | Author | [facility] | | | and [place] | + + + | Organization | [facility] | | | and [...] Team Providers + +------+ + | Care Single Needle Tufting Machine Operator Name | Role | Phone | + +------+ + | Roberth Gaspar MD | PCP | | + +------+ + Encounter Details +--------+ + + + + | Date | Type | Department | Care Team | Description | +--------+ + + + + | 11/04/ | Orders Only | [facility] | Conversion | | | 2017 | | NEPHROLOGY [place] | Transaction, | | | | | [address] | Provider Unknown | | | | | [address] [place] [place] | [phone] | | | | | [phone] | (Fax) | | | | | [phone] | | | +--------+ + + + [...]
--- OUTSIDE RECORDS SUMMARY | ~2019-11-17 | XMS | Encounter Summary ---
Demographics + + + | Address | [address] | | | [place] [address] | + + + | Home Phone | | + + + | Preferred Language | Unknown | + + + | Marital Status | Legally | + + + | Presybeterian Affiliation | Unknown | + + + | Race | Unknown | + + + | Ethnic Group | Unknown | + + + Author + + + | Author | [facility] | | | and [place] | + + + | Organization | [facility] | | | [...] Team Providers + +------+ + | Care Feather Edger Name | Role | Phone | + [...] PHYSIATRY [address] | MD [address] | | | | | [address] | [place], [place] | | | | | [place], [place] | [address] | | | | | [address] | | | | | | [phone] | | | +--------+ + + + [...]
--- OUTSIDE RECORDS SUMMARY | ~2019-11-17 | XMS | Clinical Summary ---
Demographics + + + | Address | [address] | | | [place] [address] | + + + | Home Phone | | + + + | Preferred Language | Unknown | + + + | Marital Status | Single | + + + | Restorationism Affiliation | Unknown | + + + | Race | Unknown | + + + | Ethnic Group | Unknown | + + + Author + + + | Author | [facility] (Historical as of | | | 02-11-19) | + + + | Organization | [facility] (Historical as of | | | 02-11-19) | + + + | Address | Unknown | + + + | Phone | Unavailable | + + + Support +---------+ +---------+ + | Name | Relationship | Address | Phone | +---------+ +---------+ + | Kobe,Milana | ECON | Unknown | | +---------+ +---------+ + Care Team Providers + +------+ + | Care Ship Ceiler Name | Role | Phone | + [...] | CKD (chronic kidney disease), stage III ([facility]) | 11/08/2017 | + + + | [...] +------+-------+ + | MEDICAID | [place] | [id number] | | | [address] | | | [place] | | | | [place] | | | [place] | | | | [phone] | | | THERAPY ADMINISTRATIVE ASSISTANT | | | | | + +--------+ [...] | Self [birth year] | Home: | [address] | | | al/Christofer | | [phone] | [phone] | [place] | | | [place] | | | [phone] | [address] | + +--------+ +--------+ + +
--- OUTSIDE RECORDS SUMMARY | ~2019-11-17 | XMS | Encounter Summary ---
Demographics + + + | Address | [address] | | | [place] [address] | + + + | Home Phone | | + + + | Preferred Language | Unknown | + + + | Marital Status | Legally | + + + | Buddhism Affiliation | Unknown | + + + [...] Team Providers + +------+ + | Care Skin Toggler Name | Role | Phone | + [...] PHYSIATRY [address] | MD [address] | | | | | [address] | [place], [place] | | | | | [place], [place] | [address] | | | | | [address] | | | | | | [phone] | | | +--------+--------+ + + + [...]
--- OUTSIDE RECORDS SUMMARY | ~2019-11-17 | XMS | Encounter Summary ---
Demographics + + + | Address | [address] | | | [place] [address] | + + + | Home Phone | | + + + | Preferred Language | Unknown | + + + | Marital Status | Legally | + + + | Islam Affiliation | Unknown | + + + [...] Team Providers + +------+ + | Care Street Superintendent Name | Role | Phone | + +------+ + | Roberth Gaspar MD | PCP | | + +------+ + Encounter Details +--------+ + + + + | Date | Type | Department | Care Team | Description | +--------+ + + + + | 09/12/ | Orders Only | [facility] | Cesar Hart MD | Essential | | 2020 | | NEPHROLOGY [place] | [address] | hypertension, benign | | | | [address] | [address] [place], [place] | (Primary Dx); CKD | | | | [address] | [address] | (chronic kidney | | | | [place], [place] | | disease), stage III | | | | [address] | | (HCC) | | | | [phone] | | | +--------+ + + + [...]
--- OUTSIDE RECORDS SUMMARY | ~2019-11-17 | XMS | Encounter Summary ---
Demographics + + + | Address | [address] | | | [place] [address] | + + + | Home Phone [...] Team Providers + +------+ + | Care Lathe Machine Operator Name | Role | Phone [...] | hand | [address] | | | | n | numbness | [address] | [place], | | | | | Hand | [place], | [place] [address] | | | | | weakness | [place] [address] | Phone: | | | | | History of | Phone: | [phone] | | | | | diabetes | [phone] | Fax: | | | | | mellitus | Fax: | [phone] | | | | | Procedures | [phone] | | | | | | DOS [...] 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 Santos [address] | | | | n | al disc | [address] | [place], | | | | | degeneration | [address] | [place] [address] | | | | | , lumbar | [place], | Phone: | | | | | region | [place] | [phone] | | | | | Neuropathy | [address] | Fax: | | | | | | Phone: | [phone] | | | | | | [phone] | | | | | | | Fax: | | | | | | | [phone] | | +--------+--------+ + + + + Encounter Details +--------+---------+ + + + | Date | Type | Department | Care Team | Description | +--------+---------+ + + + | 05/04/ | Office | [facility] | Oc Mooney, | Bilateral hand | | 2015 | Visit | PHYSIATRY [address] | MD [address] | numbness (Primary | | | | [address] | [place] | Dx); Hand weakness; | | | | [place] | [address] | History of diabetes | | | | [address] | | mellitus; Brisk deep | | | | [phone] | | tendon reflexes | +--------+---------+ + [...] finger abduction bilaterally. There is 4/5 hand laborer filter plant bilaterally Reflexes: 3+ brisk and symmetric over [...]
--- OUTSIDE RECORDS SUMMARY | ~2019-11-17 | XMS | Encounter Summary ---
Demographics + + + | Address | [address] | | | [place] [address] | + + + | Home Phone | | + + + | Preferred Language | Unknown | + + + | Marital Status | Legally | + + + | Catholic Affiliation | Unknown | + + + | Race | Unknown | + + + | Ethnic Group | Unknown | + + + Author + + + | Author | [facility] | | | and [place] | + + + | Organization | [facility] | | | [...] Team Providers + +------+ + | Care Microphone Boom Operator Name | Role | Phone | + +------+ + PCP | Unavailable | + +------+ + Encounter Details +--------+ + + + + | Date | Type | Department | Care Team | Description | +--------+ + + + + | 01/06/ | Emergency | [facility] | Greyson Hernandez, | | | 2012 - | | MEDICAL CENTER | MD [address] | | | | | EMERGENCY CENTER | [place] [address] | | | 01/07/ | | [address] | [phone] | | | 2012 | | [place], [place] | | | | | | [address] | | | | | | [phone] | | | +--------+ + + + [...]
--- OUTSIDE RECORDS SUMMARY | ~2019-11-17 | XMS | Encounter Summary ---
Demographics + + + | Address | [address] | | | [place] [address] | + + + | Home Phone [...] Team Providers + +------+ + | Care Auditing Specialist Name | Role | Phone | [...] PHYSIATRY [address] | MD [address] | | | | | [address] | [place] | | | | | [place], [place] | [address] | | | | | [address] | | | | | | [phone] | | | +--------+ + + + [...]
--- OUTSIDE RECORDS SUMMARY | ~2019-11-17 | XMS | Clinical Summary ---
Demographics + + + | Address | [address] | | | [place] [address] | + + + | Home Phone [...] Team Providers + +------+ + | Care Welt Wheeler Name | Role | Phone | + [...] | Orders Only | Nephrology | Cesar Hatr MD | Essential | | 2019 | [...] Jha | | | | | | Crowning Inspector | | +--------+ + + + + [...] | [facility] | [facility] | [id number] | 06/28/19 | [phone] | | Medica [...] charlie | | | 2 (Home) | [address] | + +--------+ +--------+ + + Advance Directives + + + + + | Type | Date Recorded | Patient | Explanation | | | | Director Of Fundraising | | + + + + + | Power of | | | | | Boring Mill Set Up Operator Vertical | | | | + + + + + | Advance | | | | | Directive | | | | + + + + +
--- OUTSIDE RECORDS SUMMARY | ~2019-11-17 | XMS | Encounter Summary ---
Demographics + + + | Address | [address] | | | [place] [address] | + + + | Home Phone | | + + + | Preferred Language | Unknown | + + + | Marital Status | Legally | + + + | Jehovah'S Witness Affiliation | Unknown | + + + [...] Team Providers + +------+ + | Care Senior Javascript Developer Name | Role | Phone | [...] PHYSIATRY [address] | MD [address] | | | | | [address] | [place] | | | | | [place], [place] | [address] | | | | | [address] | | | | | | [phone] | | | +--------+ + + + [...]
--- OUTSIDE RECORDS SUMMARY | ~2019-11-17 | XMS | Encounter Summary ---
Demographics + + + | Address | [address] | | | [place] [address] | + + + | Home Phone [...] Team Providers + +------+ + | Care Blanking Machine Operator Name | Role | Phone [...] | PHYSIATRY [address] | [address] | | | | | [address] | [place] | | | | | [place] | [address] | | | | | [address] | | | | | | [phone] | | | +--------+ + + + [...]
--- OUTSIDE RECORDS SUMMARY | ~2019-11-17 | XMS | Encounter Summary ---
Demographics + + + | Address | [address] | | | [place] [address] | + + + | Home Phone | | + + + | Preferred Language | Unknown | + + + | Marital Status | Legally | + + + | Religion Affiliation | Unknown | + + + [...] Team Providers + +------+ + | Care Fluid Power Mechanic Name | Role | Phone | + +------+ + | Roberth Gaspar MD | PCP | | + +------+ + Encounter Details +--------+ + + + + | Date | Type | Department | Care Team | Description | +--------+ + + + + | 09/12/ | Documentati | [facility] | Kolby, | | | 2019 | on | NEPHROLOGY [place] | Jose Carlos Jha | | | | | [address] | [employer]f Developer | | | | | [address] | | | | | | [place], [place] | | | | | | [address] | | | | | | [phone] | | | +--------+ + + + [...]
--- OUTSIDE RECORDS SUMMARY | ~2019-11-17 | XMS | Encounter Summary ---
Demographics + + + | Address | [address] | | | [place] [address] | + + + | Home Phone [...] Team Providers + +------+ + | Care Television Picture Tube Rebuilder Name | Role | Phone | + +------+ + | Roberth Gaspar MD | PCP | | + +------+ + Encounter Details +--------+ + + + + | Date | Type | Department | Care Team | Description | +--------+ + + + + | 10/27/ | Orders Only | [facility] | Cesar Hart MD | | | 2018 | | NEPHROLOGY [place] | [address] [facility] | | | | | [address] | [address] [place], [place] | | | | | [address] [place], [place] | [address] | | | | | [address] | | | | | | [phone] | | | +--------+ + + + [...]
--- OUTSIDE RECORDS SUMMARY | ~2019-11-17 | XMS | Encounter Summary ---
Demographics + + + | Address | [address] | | | [place] [address] | + + + | Home Phone | | + + + | Preferred Language | Unknown | + + + | Marital Status | Legally | + + + | Sikh Affiliation | Unknown | + + + [...] Team Providers + +------+ + | Care Crusher Name | Role | Phone | + +------+ + | No, Unknownpcp | PCP | | + +------+ + Encounter Details +--------+ + + + + | Date | Type | Department | Care Team | Description | +--------+ + + + + | 01/07/ | [facility] | [facility] | Mookie Bustamante, | | | 2012 - | Encounter | MED CTR MED ONC | [address] | | | | | [address] | [place] | | | 01/11/ | | [place] [address] | [address] | | | 2012 | | [phone] | | | +--------+ + + + [...] Mookie Bustamante MD - 01/11/2013 9:47 [place] [address] Patient Name: PHOENIX DANGELO Provider: Mookie Bustamante MD Unit #: [id number] Location: [address] [place] [address] #: [id number] : 1965 ADMISSION DATE: 01/07/2013 DISCHARGE DATE: [...] Dr. Wes. She saw Dr. Cor lidya, solutions architect consultant, who did beside debridement. He recommended that [...] was to have her go home with [facility]. However, the patient says her father will not allow that. Thus, she will be going to the [facility] e. I did speak with Dr. Noe Gaspar on the phone on 01/10/2013. She needs to fol low up with him but she also should have the solutions architect consultant to see her and I would say within s ix days. Ideally, you could have the solutions architect consultant come to the group home. Check with Dr. Noe Gaspar which solutions architect consultant he wants her to see. She has seen a solutions architect consultant in the [facility]. DISPOSITION: The patient to be discharged to the group home in improved condition. DIET: Will be diabetic, low fat, low cholesterol. She should work with physical therapy and if you have a wound care nurse as well. She can ambulate but I would have her minimize pressure on her right forefoot where she has the [place] er. CODE STATUS: FULL CODE. MEDICATIONS 1. [...] Hypoglycemia protocol. We have one here but group home might have one but we include d ours. Glucoscans before meals. Again, she needs close followup with Dr. Noe Gaspar as well as contact Dr. Noe [facility]'s office for which solutions architect consultant to see and ideally the solutions architect consultant should start seeing he r at the group home and have your wound care team see her as well in the group home. Time of discharge more than 30 minutes. DICTATED BY: Mookie Bustamante MD Internal Medicine JOB #: [id number] EXT JOB #:[id number] cc: Dr Noe Gaspar in [facility] <<Signature on File>> Mookie Bustamante MD0 01/13/13 [...] Performed At | + + + | [facility] | [place] | | Department [address] [facility] | [facility] | | [ rep ct [address]] [ rep [facility] | | [facility]] Signed | - IMAGING | | | | | Patient Name: PHOENIX DANGELO Physician: | | | SANDI.01 : 1965 Age: 47 Sex: F Unit #: [id number] | | | Exam Date: 01/10/13 Location: [address] [place] [address] | | | Report #: [id number] Page: | | | %(RAD)RES..mtdd.print.filter("pg") of %(RAD) | | | RES..mtdd.print.filter("tpg") | | | | | | Accession Number: [id number]; [id number]; | | | [id number], [id number], [id number], [id number] PICC | | | LINE PLACEMENT CLINICAL [...] Transcribed | | | Date/Time: 01/10/2013 17:07 Structural Steel Ironworker: TRINY | | | <<Signature on File>> | | | Campbell | | | Eloise Ocasio MD01/11/13 1032 <Electronically signed by Campbell Navas | | | Amarjit KAPLAN> Campbell Ocasio MD 01/11/13829 | | | Structural Steel Ironworker: Chantel Uyqfduqnyzktu15/17/13829 | | | | | + + + + + + + + | Performing | Address | City/State/Zipcode | Phone Number | | Organization | | | | + + + + + | [facility] | [address] | [place] | [phone] | | [facility] | | [address] | | | - IMAGING | | | | + + + + + XR Chest PA or AP (01/11/2013 8:30 AM PDT) + + | Specimen | + + | | + + + + + | Narrative | Performed At | + + + | [facility] | [place] | | Department [address] [facility] | [facility] | | [ rep ct street1+2] [ rep [facility] | | st zip] Signed | - IMAGING | | | | | Patient Name: PHOENIX DANGELO Physician: | | | RAS. : 1965 Age: 47 Sex: F Unit #: [id number] | | | Exam Date: 01/10/13 Location: [address] [place] [address] | | | Report #: [id number] Page: | | | %(RAD)RES..mtdd.print.filter("pg") of %(RAD) | | | RES..mtdd.print.filter("tpg") | | | | | | Accession Number: [id number]; [id number]; | | | [id number], [id number], [id number], [id number] PICC | | | LINE PLACEMENT CLINICAL [...] Transcribed | | | Date/Time: 01/10/2013 17:07 Structural Steel Ironworker: | | | <<Signature on File>> | | | Paul Hightower | | | Eloise Ocasio MD01/11/13 1032 <Electronically signed by Campbell Navas | | | Amarjit KAPLAN> Campbell Ocasio MD 01/11/13 2992 | | | Structural Steel Ironworker: Chantel Imtojzzjztdff83/17/13 0830 | | | | | + + + + + + + + | Performing | Address | City/State/Zipcode | Phone Number | | Organization | | | | + + + + + | [facility] | [address] | [place] | [phone] | | [facility] | | [address] | | | - IMAGING | | | | + + + + + XR Chest PA or AP (01/11/2013 8:30 AM PDT) + + | Specimen | + + | | + + + + + | Narrative | Performed At | + + + | [facility] | [place] | | Department [address] [facility] | [facility] | | [ rep ct street1+2] [ rep [facility] | | st zip] Signed | - IMAGING | | | | | Patient Name: PHOENIX DANGELO Physician: | | | SANDI.01 : 1965 Age: 47 Sex: F Unit #: [id number] | | | Exam Date: 01/10/13 Location: [address] [place] [address] | | | Report #: [id number] Page: | | | %(RAD)RES..mtdd.print.filter("pg") of %(RAD) | | | RES..mtdd.print.filter("tpg") | | | | | | Accession Number: [id number]; [id number]; | | | [id number], [id number], [id number], [id number] PICC | | | LINE PLACEMENT CLINICAL [...] Transcribed | | | Date/Time: 01/10/2013 17:07 Structural Steel Ironworker: | | | <<Signature on File>> | | | Campbell | | | Eloise Ocasio MD01/11/13 1032 <Electronically signed by Campbell Navas | | | Amarjit KAPLAN> Campbell Ocasio MD 01/11/13829 | | | Structural Steel Ironworker: Photometicsx Zwfmlouqamwyp68/17/13 0830 | | | | | + + + + + + + + | Performing | Address | City/State/Zipcode | Phone Number | | Organization | | | | + + + + + | [facility] | [address] | [place], [place] | [phone] | | [facility] | | [address] | | | - IMAGING | | | | + + + + + XR Chest PA or AP (01/10/2013 3:18 PM PDT) + + | Specimen | + + | | + + + + + | Narrative | Performed At | + + + | [facility] | [place] | | Department [address] [place] [address] | [facility] | | [ rep ct street1+2] [ rep [facility] | | [facility]] Signed | - IMAGING | | | | | Patient Name: RAJESHSOLITARIOROMYPHOENIX Kilpatrick Physician: | | | CORDELIA. : 1965 Age: 47 Sex: F Unit #: [id number] | | | Exam Date: 01/10/13 Location: [address] [place] [address] | | | Report #: [id number] Page: | | | %(RAD)RES..mtdd.print.filter("pg") of %(RAD) | | | RES..mtdd.print.filter("tpg") | | | | | | Accession Number: [id number] | | | [id number], [id number], [id number], [id number] PICC LINE PLACEMENT | | | CLINICAL [...] Transcribed Date/Time: 01/10/2013 17:07 | | | Structural Steel Ironworker: <<Signature on File>> | | | | | | Campbell Ocasio MD01/10/13 6241 <Electronically signed by Campbell Navas | | | Amarjit KAPLAN> Campbell Ocasio MD 01/10/13 5104 | | | Structural Steel Ironworker: Photometicsnahomi Rnnxzjaxdzhtr50/16/13 7660 | | | | | + + + + + + + + | Performing | Address | City/State/Zipcode | Phone Number | | Organization | | | | + + + + + | [facility] | [address] | [place] | [phone] | | [facility] | | [address] | | | - IMAGING | | [...] | | | | gm/dL | [facility] | | | | | | MEDICAL [...] + | [facility] | [address] | [place] | [phone] | | [facility] | | [address] | | | - LABORATORY | | | | + + + + + | [facility] | [address] | [place] | | | [facility] | | [id number] | | | - LABORATORY | | [...] | >60Comment: For | >60 mL/min/A | [facility] | | | GFR | -Americans, | [...] + | [facility] | [address] | [place], [place] | [phone] | | [facility] | | [address] | | | - LABORATORY | | | | + + + + + | [facility] | [address] | [place], [place] | | | [facility] | | [id number] | | | - LABORATORY | | [...] | | | | | | [facility] | | | | | | MEDICAL [...] + | [facility] | [address] | [place], [place] | [phone] | | [facility] | | [address] | | | - LABORATORY | | | | + + + + + | [facility] | [address] | [place], [place] | | | [facility] | | [id number] | | | - LABORATORY | [...] + | [facility] | [address] | [place], [place] | [phone] | | [facility] | | [address] | | | - LABORATORY | | | | + + + + + | [facility] | [address] | [place], [place] | | | [facility] | | [address], [facility] | | | - [...] + | [facility] | [address] | [place], [place] | [phone] | | [facility] | | [address] | | | - LABORATORY | | | | + + + + + | [facility] | [address] | [place], [place] | | | [facility] | | [address] [place] [address] | | | - LABORATORY | | [...] + | [facility] | [address] | [place] | [phone] | | [facility] | | [address] | | | - LABORATORY | | | | + + + + + | [facility] | [address] | [place], [place] | | | [facility] | | [address], [facility] | | | - [...] + | [facility] | [address] | [place], [place] | [phone] | | [facility] | | [address] | | | - LABORATORY | | | | + + + + + | [facility] | [address] | [place], [place] | | | [facility] | | [facility], [facility] | | | - [...] + | [facility] | [address] | [place] | [phone] | | [facility] | | [address] | | | - LABORATORY | | | | + + + + + | [facility] | [address] | [place] | | | [facility] | | [address] | | | - LABORATORY | | [...] [address] | [place] | [phone] | | [facility] | | [address] | | | - LABORATORY | | | | + + + + + | [facility] | [address] | [place] | | | [facility] | | [address], [facility] | | | - [...] + | [facility] | [address] | [place], [place] | [phone] | | [facility] | | [address] | | | - LABORATORY | | | | + + + + + | [facility] | [address] | [place], [place] | | | [facility] | | [id number] [place] [address] | | | - LABORATORY | | [...] | | | | | | Standards [employer]wright | | | | | | Rifampin [...] | | | | | | Standards [place] | | | | | | Rifampin [...] + | [facility] | [address] | [place] | [phone] | | [facility] | | [address] | | | - LABORATORY | | | | + + + + + | [facility] | [address] | [place] | | | [facility] | | [id number] [place] [address] | | | - LABORATORY | | | | + + + + + documented in this encounter Visit Diagnoses Not on filedocumented in this encounter
--- OUTSIDE RECORDS SUMMARY | ~2019-11-17 | XMS | Encounter Summary ---
Demographics + + + | Address | [address] | | | [place] [address] | + + + | Home Phone [...] Team Providers + +------+ + | Care Compliance Manager Name | Role | Phone | [...] | hand | [address] | | | | n | numbness | [address] | [place], | | | | | Hand | [place], | [place] [address] | | | | | weakness | [place] [address] | Phone: | | | | | History of | Phone: | [phone] | | | | | diabetes | [phone] | Fax: | | | | | mellitus | Fax: | [phone] | | | | | Procedures | [phone] | | | | | | DOS [...] | PHYSIATRY [address] | [address] | polyneuropathy | | | | [address] | [place] | (Primary Dx); | | | | [place], [place] | [address] | Bilateral hand | | | | [address] | | numbness; Hand | | | | [phone] | | weakness; History of | | [...] might be different fro m the original. [facility] Physical Medicine & Rehabilitation [address] [place] [address], [facility] [address] [place] [address] Test Date: 10/06/2016 Patient Name: Petra Dangelo : 1965 Physician: Oc Mooney MD (Jr.) MR #: [id number] Sex: Female Referring Physician: Roberth Gaspar MD [...] nds which she describes as loss of superintendent board mill strength. She reports numbness in both feet [...] to mid-forelegs bilaterally. She has 4/5 hand superintendent board mill strength bilaterally. The remainder of strength is [...]
--- OUTSIDE RECORDS SUMMARY | ~2019-11-17 | XMS | Encounter Summary ---
Demographics + + + | Address | [address] | | | [place] [address] | + + + | Home Phone | | + + + | Preferred Language | Unknown | + + + | Marital Status | Legally | + + + | Church Affiliation | Unknown | + + + | Race | Unknown | + + + | Ethnic Group | Unknown | + + + Author + + + | Author | [facility] | | | and [place] | + + + | Organization | [facility] | | | [...] Team Providers + +------+ + | Care Hoe Worker Name | Role | Phone | + +------+ + | Roberth Gaspar MD | PCP | | + +------+ + Encounter Details +--------+ + + + + | Date | Type | Department | Care Team | Description | +--------+ + + + + | 09/12/ | Orders Only | [facility] | Cesar Hart MD | Essential | | 2020 | | NEPHROLOGY [place] | [address] | hypertension, benign | | | | [address] | [address] [place], [place] | (Primary Dx); CKD | | | | [address] | [address] | (chronic kidney | | | | [place], [place] | | disease), stage III | | | | [address] | | (HCC) | | | | [phone] | | | +--------+ + + + [...]
--- OUTSIDE RECORDS SUMMARY | ~2019-11-17 | XMS | Encounter Summary ---
Demographics + + + | Address | [address] | | | [place] [address] | + + + | Home Phone [...] Team Providers + +------+ + | Care Him Analyst Name | Role | Phone | + +------+ + | Roberth Gaspar MD | PCP | | + +------+ + Encounter Details +--------+ + + + + | Date | Type | Department | Care Team | Description | +--------+ + + + + | 01/22/ | Orders Only | [facility] | Provider, | | | 2019 | | SYSTEM GENERIC OP | [address] | | | | | [address] | [place] | | | | | [address] [place], [place] | [place] [address] | | | | | [address] | | | | | | [phone] | | | +--------+ + + + [...]
--- OUTSIDE RECORDS SUMMARY | ~2019-11-17 | XMS | Clinical Summary ---
Demographics + + + | Address | [address] | | | [place] [address] | + + + | Home Phone | | + + + | Preferred Language | Unknown | + + + | Marital Status | Legally | + + + | Denominational Affiliation | Unknown | + + + | Race | Unknown | + + + | Ethnic Group | Unknown | + + + Author + + + | Author | [facility] | | | and [place] | + + + | Organization | [facility] | [...] Team Providers + +------+ + | Care Heating Technician Name | Role | Phone | [...] Jha | | | | | | Radar Repairer | | +--------+ + + + + [...] | [employer] | [facility] | [id number] | 06/28/19 | [phone] | | Medica [...] charlie | | | 2 (Home) | [address] | + +--------+ +--------+ + + Advance Directives + + + + + | Type | Date Recorded | Patient | Explanation | | | | Scrum Product Owner | | + + + + + | Power of | | | | | Icu Staff Nurse | | | | + + + + + | Advance | | | | | Directive | | | | + + + + +
--- OUTSIDE RECORDS SUMMARY | ~2019-11-17 | XMS | Encounter Summary ---
Demographics + + + | Address | [address] | | | [place] [address] | + + + | Home Phone [...] + + + | Author | [facility] | | | and [place] | + + + | Organization | [facility] | | | [...] Team Providers + +------+ + | Care Petroleum Products District Supervisor Name | Role | Phone | + +------+ + PCP | Unavailable | + +------+ + Encounter Details +--------+ + + + + | Date | Type | Department | Care Team | Description | +--------+ + + + + | 01/06/ | Emergency | [facility] | Greyson Hernandez, | | | 2012 - | | MEDICAL CENTER | MD [address] | | | | | EMERGENCY CENTER | [place] [address] | | | 01/07/ | | [address] | [phone] | | | 2012 | | [place], [place] | | | | | | [address] | | | | | | [phone] | | | +--------+ + + + [...]
--- OUTSIDE RECORDS SUMMARY | ~2019-11-17 | XMS | Encounter Summary ---
Demographics + + + | Address | [address] | | | [place] [address] | + + + | Home Phone | | + + + | Preferred Language | Unknown | + + + | Marital Status | Legally | + + + | Holiness Affiliation | Unknown | + + + [...] Team Providers + +------+ + | Care Vat House Supervisor Name | Role | Phone | + +------+ + | Roberth Gaspar MD | PCP | | + +------+ + Encounter Details +--------+ + + + + | Date | Type | Department | Care Team | Description | +--------+ + + + + | 10/27/ | Orders Only | [facility] | Cesar Hart MD | | | 2018 | | NEPHROLOGY [place] | [address] [facility] | | | | | [address] | [address] [place], [place] | | | | | [address] [place], [place] | [address] | | | | | [address] | | | | | | [phone] | | | +--------+ + + + [...]
--- OUTSIDE RECORDS SUMMARY | ~2019-11-17 | XMS | Encounter Summary ---
Demographics + + + | Address | [address] | | | [place] [address] | + + + | Home Phone [...] Team Providers + +------+ + | Care Tie Knitter Helper Name | Role | Phone | + +------+ + PCP | Unavailable | + +------+ + Encounter Details +--------+ + + + + | Date | Type | Department | Care Team | Description | +--------+ + + + + | 01/06/ | Emergency | [facility] | Greyson Hernandez, | | | 2012 - | | MEDICAL CENTER | MD [address] | | | | | EMERGENCY CENTER | [place] [address] | | | 01/07/ | | [address] | [phone] | | | 2012 | | [place], [place] | | | | | | [address] | | | | | | [phone] | | | +--------+ + + + [...]
--- OUTSIDE RECORDS SUMMARY | ~2019-11-17 | XMS | Encounter Summary ---
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[place], | | | | | degeneration | [address] | [place] [address] | | | | | , lumbar | [place], | Phone: | | | | | region | [place] | [phone] | | | | | Neuropathy | [address] | Fax: | | | | | | Phone: | [phone] | | | | | | [phone] | | | | | | | Fax: | | | | | | | [phone] | | +--------+--------+ + + + + Encounter Details +--------+---------+ + + + | Date | Type | Department | Care Team | Description | +--------+---------+ + + + | 05/04/ | Office | [facility] | Oc Mooney, | Bilateral hand | | 2015 | Visit | PHYSIATRY [address] | MD [address] | numbness (Primary | | | | [address] | [place] | Dx); Hand weakness; | | | | [place] | [address] | History of diabetes | | | | [address] | | mellitus; Brisk deep | | | | [phone] | | tendon reflexes | +--------+---------+ + [...] & Rehabilitation Concussion Consult Referring Provider: Roberth Gsapar MD Date of Service: 05/04/2016 Patient ID: [...] finger abduction bilaterally. There is 4/5 hand recreation leader bilaterally Reflexes: 3+ brisk and symmetric over [...]
--- OUTSIDE RECORDS SUMMARY | ~2019-11-17 | XMS | Encounter Summary ---
Demographics + + + | Address | [address] | | | [place] [address] | + + + | Home Phone [...] | Phone | +---------+ +---------+ + | Milnaa Kobe | ECON | Unknown | | +---------+ +---------+ + Care Team Providers + +------+ + | Care Student Career Development Specialist Name | Role | Phone | + +------+ + | Roberth Gaspar MD | PCP | | + +------+ + Encounter Details +--------+ + + + + | Date | Type | Department | Care Team | Description | +--------+ + + + + | 09/12/ | Documentati | [facility] | [place], | | | 2019 | on | NEPHROLOGY [place] | Jose Carlos hJa | | | | | [address] | [address] | | | | | [address] | | | | | | [place], [place] | | | | | | [address] | | | | | | [phone] | | | +--------+ + + + [...]
--- OUTSIDE RECORDS SUMMARY | ~2019-11-17 | XMS | Encounter Summary ---
Demographics + + + | Address | [address] | | | [place] [address] | + + + | Home Phone | | + + + | Preferred Language | Unknown | + + + | Marital Status | Legally | + + + | Jain Affiliation | Unknown | + + + [...] Team Providers + +------+ + | Care Crime Data Specialist Name | Role | Phone | [...] + + | 01/05/ | Office | [facility] [place] | Oc Mooney, | Peripheral | | 2017 | Visit | PHYSIATRY [address] | MD [address] | polyneuropathy | | | | [address] | [place], [place] | (Primary Dx); | | | | [place], [place] | [address] | Neuropathic pain; | | | | [address] | | Vitamin B12 | | | | [phone] | | deficiency; Angular | | | [...] encounter Patient Instructions Patient Instructions Donna Jara, Mopper - 01/05/2017 4:00 PM PDTBegin the consumption [...] has no apparent deficits with short or tank terminal gauger memory. The cranial nerves appear grossly intact. Subjective sensory change in both hands, unchanged compared to 10/06/2016. 4/5 hand dyslexia teacher bilaterally. Remainder of strength normal in major [...]
--- OUTSIDE RECORDS SUMMARY | ~2019-11-17 | XMS | Encounter Summary ---
Demographics + + + | Address | [address] | | | [place] [address] | + + + | Home Phone | | + + + | Preferred Language | Unknown | + + + | Marital Status | Legally | + + + | Gnosticism Affiliation | Unknown | + + + [...] Team Providers + +------+ + | Care Welder Fabricator Name | Role | Phone | + [...] PHYSIATRY [address] | MD [address] | | | | | [address] | [place], [place] | | | | | [place], [place] | [address] | | | | | [address] | | | | | | [phone] | | | +--------+--------+ + + + [...]
--- OUTSIDE RECORDS SUMMARY | ~2019-11-17 | XMS | Encounter Summary ---
Demographics + + + | Address | [address] | | | [place] [address] | + + + | Home Phone [...] Team Providers + +------+ + | Care Cost Control Analyst Name | Role | Phone | [...] PHYSIATRY [address] | MD [address] | | | | | [address] | [place], [place] | | | | | [place], [place] | [address] | | | | | [address] | | | | | | [phone] | | | +--------+ + + + [...]
--- OUTSIDE RECORDS SUMMARY | ~2019-11-17 | XMS | Clinical Summary ---
Demographics + + + | Address | [address] | | | [place] [address] | + + + | Home Phone | | + + + | Preferred Language | Unknown | + + + | Marital Status | Legally | + + + | Scientology Affiliation | Unknown | + + + | Race | Unknown | + + + | Ethnic Group | Unknown | + + + Author + + + | Author | [facility] | | | and [place] | + + + | Organization | [facility] | | | [...] Providers + +------+ + | Care Customer Service Correspondence Clerk Name | Role | Phone | [...] Jha | | | | | | Hand Stapler | | +--------+ + + + + [...] | [employer] | [employer] | [id number] | 06/28/19 | [phone] | | Medica [...] charlie | | | 2 (Home) | [address] | + +--------+ +--------+ + + Advance Directives + + + + + | Type | Date Recorded | Patient | Explanation | | | | Chief Deputy | | + + + + + | Power of | | | | | Fire Alarm Installer | | | | + + + + + | Advance | | | | | Directive | | | | + + + + +
--- OUTSIDE RECORDS SUMMARY | ~2019-11-17 | XMS | Encounter Summary ---
Demographics + + + | Address | [address] | | | [place] [address] | + + + | Home Phone [...] Team Providers + +------+ + | Care Internal Controls Specialist Name | Role | Phone | + +------+ + | No, Unknownpcp | PCP | | + +------+ + Encounter Details +--------+ + + + + | Date | Type | Department | Care Team | Description | +--------+ + + + + | 01/07/ | [facility] | [facility] | Mookie Bustamante, | | | 2012 - | Encounter | MED CTR MED [facility] | [address] | | | | | [address] | [place] | | | 01/11/ | | [place] [address] | [address] | | | 2012 | | [phone] | | | +--------+ + + + [...] Mookie Bustamante MD - 01/11/2013 9:47 [place] [address] Patient Name: PHOENIX DANGELO Provider: Mookie Bustamante MD Unit #: [id number] Location: [address] [place] [address] #: [id number] : 1965 ADMISSION DATE: 01/07/2013 DISCHARGE DATE: [...] Dr. Wes. She saw Dr. Cor lidya, investigative writer, who did beside debridement. He recommended that [...] was to have her go home with [facility]. However, the patient says her father will not allow that. Thus, she will be going to the [facility] e. I did speak with Dr. Noe Gaspar on the phone on 01/10/2013. She needs to fol low up with him but she also should have the investigative writer to see her and I would say within s ix days. Ideally, you could have the investigative writer come to the half-way. Check with Dr. Noe Gaspar which investigative writer he wants her to see. She has seen a investigative writer in the [facility] DISPOSITION: The patient to be discharged to the half-way in improved condition. DIET: Will be diabetic, low fat, low cholesterol. She should work with physical therapy and if you have a wound care nurse as well. She can ambulate but I would have her minimize pressure on her right forefoot where she has the [facility]. CODE STATUS: FULL CODE. MEDICATIONS 1. [...] Hypoglycemia protocol. We have one here but half-way might have one but we include d ours. Glucoscans before meals. Again, she needs close followup with Dr. Noe Gaspar as well as contact Dr. Noe Jara [facility]'s office for which investigative writer to see and ideally the investigative writer should start seeing he r at the half-way and have your wound care team see her as well in the half-way. Time of discharge more than 30 minutes. DICTATED BY: Mookie Bustamante MD Internal Medicine JOB #: [id number] EXT JOB #:[id number] cc: Dr Noe Gaspar in [facility] <<Signature on File>> Mookie Bustamante MD0 01/13/13 [...] Performed At | + + + | [facility] | GAY | | Department [address] | [facility] | | [ rep [address]] [ rep [facility] | | [facility]] Signed | - IMAGING | | | | | Patient Name: PHOENIX DANGELO Physician: | | | SANDI.01 : 1965 Age: 47 Sex: F Unit #: [id number] | | | Exam Date: 01/10/13 Location: [address] [place] [address] | | | Report #: [id number] Page: | | | %(RAD)RES..mtdd.print.filter("pg") of %(RAD) | | | RES..mtdd.print.filter("tpg") | | | | | | Accession Number: [id number]; [id number]; | | | [id number], [id number], [id number], [id number] PICC | | | LINE PLACEMENT CLINICAL [...] Transcribed | | | Date/Time: 01/10/2013 17:07 Demand Inspector: TRINY | | | <<Signature on File>> | | | Campbell | | | Eloise Ocasio MD01/11/13 1032 <Electronically signed by Campbell Navas | | | Amarjit KAPLAN> Campbell Ocasio MD 01/11/13829 | | | Demand Inspector: Chantel Ptyzubmcyydsl96/17/13829 | | | | | + + + + + + + + | Performing | Address | City/State/Zipcode | Phone Number | | Organization | | | | + + + + + | [facility] | [address] | [place] | [phone] | | [facility] | | [address] | | | - IMAGING | | | | + + + + + XR Chest PA or AP (01/11/2013 8:30 AM PDT) + + | Specimen | + + | | + + + + + | Narrative | Performed At | + + + | [facility] | GAY | | Department [address] | [facility] | | [ rep ct [address]] [ rep [facility] | | st zip] Signed | - IMAGING | | | | | Patient Name: PHOENIX DANGELO Physician: | | | RAS. : 1965 Age: 47 Sex: F Unit #: [id number] | | | Exam Date: 01/10/13 Location: [address] [place] [address] | | | Report #: [id number] Page: | | | %(RAD)RES..mtdd.print.filter("pg") of %(RAD) | | | RES..mtdd.print.filter("tpg") | | | | | | Accession Number: [id number]; [id number]; | | | [id number], [id number], [id number], [id number] PICC | | | LINE PLACEMENT CLINICAL [...] Transcribed | | | Date/Time: 01/10/2013 17:07 Demand Inspector: | | | <<Signature on File>> | | | Paul Hightower | | | Eloise Ocasio MD01/11/13 1032 <Electronically signed by Campbell Navas | | | Amarjit KAPLAN> Campbell Ocasio MD 01/11/13 7898 | | | Demand Inspector: Chantel Nkxyqkhdymqci62/17/13 0830 | | | | | + + + + + + + + | Performing | Address | City/State/Zipcode | Phone Number | | Organization | | | | + + + + + | [facility] | [address] | [place] | [phone] | | [facility] | | [address] | | | - IMAGING | | | | + + + + + XR Chest PA or AP (01/11/2013 8:30 AM PDT) + + | Specimen | + + | | + + + + + | Narrative | Performed At | + + + | [facility] | GAY | | Department [address] | [facility] | | [ rep ct street1+2] [ rep [facility] | | st zip] Signed | - IMAGING | | | | | Patient Name: PHOENIX DANGELO Physician: | | | SANDI.01 : 1965 Age: 47 Sex: F Unit #: [id number] | | | Exam Date: 01/10/13 Location: [address] [place] [address] | | | Report #: [id number] Page: | | | %(RAD)RES..mtdd.print.filter("pg") of %(RAD) | | | RES..mtdd.print.filter("tpg") | | | | | | Accession Number: [id number]; [id number]; | | | [id number], [id number], [id number], [id number] PICC | | | LINE PLACEMENT CLINICAL [...] Transcribed | | | Date/Time: 01/10/2013 17:07 Demand Inspector: | | | <<Signature on File>> | | | Campbell | | | Eloise Ocasio MD01/11/13 1032 <Electronically signed by Campbell Navas | | | Amarjit KAPLAN> Campbell Ocasio MD 01/11/13829 | | | Demand Inspector: eHarmonyx Mdwpdfbjkazxw18/17/13 0830 | | | | | + + + + + + + + | Performing | Address | City/State/Zipcode | Phone Number | | Organization | | | | + + + + + | [facility] | [address] | [place], [place] | [phone] | | [facility] | | [address] | | | - IMAGING | | | | + + + + + XR Chest PA or AP (01/10/2013 3:18 PM PDT) + + | Specimen | + + | | + + + + + | Narrative | Performed At | + + + | [facility] | GAY | | Department [address] [place] [address] | [facility] | | [ rep ct [address]] [ rep [facility] | | [facility]] Signed | - IMAGING | | | | | Patient Name: RAJESHSOLITARIOROMYPHOENIX Kilpatrick Physician: | | | CORDELIA. : 1965 Age: 47 Sex: F Unit #: [id number] | | | Exam Date: 01/10/13 Location: [address] [place] [address] | | | Report #: [id number] Page: | | | %(RAD)RES..mtdd.print.filter("pg") of %(RAD) | | | RES..mtdd.print.filter("tpg") | | | | | | Accession Number: [id number] | | | [id number], [id number], [id number], [id number] PICC LINE PLACEMENT | | | CLINICAL [...] Transcribed Date/Time: 01/10/2013 17:07 | | | Demand Inspector: <<Signature on File>> | | | | | | Campbell Ocasio MD01/10/13 7776 <Electronically signed by Campbell Navas | | | Amarjit KAPLAN> Campbell Ocasio MD 01/10/13 9633 | | | Demand Inspector: eHarmonynahomi Jyxxsmxmsgdnt49/16/13 5114 | | | | | + + + + + + + + | Performing | Address | City/State/Zipcode | Phone Number | | Organization | | | | + + + + + | [facility] | [address] | [place] | [phone] | | [facility] | | [address] | | | - IMAGING | | [...] + | [facility] | [address] | [place] | [phone] | | [facility] | | [address] | | | - LABORATORY | | | | + + + + + | [facility] | [address] | [place] | | | [facility] | | [address] | | | - LABORATORY [...] | >60Comment: For | >60 mL/min/A | [facility] | | | GFR | -Americans, | [...] + | [facility] | [address] | [place], [place] | [phone] | | [facility] | | [address] | | | - LABORATORY | | | | + + + + + | [facility] | [address] | [place], [place] | | | [facility] | | [address] | | | - LABORATORY [...] + | [facility] | [address] | [place], [place] | [phone] | | [facility] | | [address] | | | - LABORATORY | | | | + + + + + | [facility] | [address] | [place], [place] | | | [facility] | | [address] | | [...] + | [facility] | [address] | [place], [place] | [phone] | | [facility] | | [address] | | | - LABORATORY | | | | + + + + + | [facility] | [address] | [place], [place] | | | [facility] | | [address], [facility] | | | - LABORATORY | | [...] + | [facility] | [address] | [place], [place] | [phone] | | [facility] | | [address] | | | - LABORATORY | | | | + + + + + | [facility] | [address] | [place], [place] | | | [facility] | | [address] [place] [address] | | | - LABORATORY | | [...] + | [facility] | [address] | [place] | [phone] | | [facility] | | [address] | | | - LABORATORY | | | | + + + + + | [facility] | [address] | [place], [place] | | | [facility] | | [address], [facility] | | | - LABORATORY | | [...] + | [facility] | [address] | [place], [place] | [phone] | | [facility] | | [address] | | | - LABORATORY | | | | + + + + + | [facility] | [address] | [place], [place] | | | [facility] | | [facility], [facility] | | | - LABORATORY | | [...] + | [facility] | [address] | [place] | [phone] | | [facility] | | [address] | | | - LABORATORY | | | | + + + + + | [facility] | [address] | [place] | | | [facility] | | [address] | | | - LABORATORY [...] [address] | [place] | [phone] | | [facility] | | [address] | | | - LABORATORY | | | | + + + + + | [facility] | [address] | [place] | | | [facility] | | [address], [facility] | | | - LABORATORY | | [...] + | [facility] | [address] | [place], [place] | [phone] | | [facility] | | [address] | | | - LABORATORY | | | | + + + + + | [facility] | [address] | [place], [place] | | | [facility] | | [id number] [place] [address] | | | - LABORATORY | | [...] | | | | | | Standards Leoti | | | | | | Rifampin [...] | | | | | | Standards Leoti | | | | | | Rifampin [...] + | [facility] | [address] | [place] | [phone] | | [facility] | | [address] | | | - LABORATORY | | | | + + + + + | [facility] | [address] | [place] | | | [facility] | | [address] [place] [address] | | | - LABORATORY | | | | + + + + + documented in this encounter Visit Diagnoses Not on filedocumented in this encounter
[~2019-11-17 20:02] MED LIST changes: +DOXYCYCLINE HY100 MG PO; +DULOXETINE HCL60 MG PO; +GABAPENTIN300 MG PO; +LEVOTHYROXINE88 MCG PO; +LISINOPRIL5 MG PO; +METFORMIN HCL1000 MG PO; +METOPROLOL SUCC25 MG PO; +METOPROLOL SUCC50 MG PO; +METOPROLOL TART50 MG PO; +OMEPRAZOLE20 MG PO; +OXYCODONE HCL5 MG PO; +PREDNISONE10 MG PO; +TRAZODONE HCL50 MG PO; +WIXELA 500-501 EACH INH
--- OUTSIDE RECORDS SUMMARY | 2019-11-17 20:06 | XMS ---
PreManage Notification: [facility] [employer] Events No recent Security Events currently on file CRITERIA MET - Group Notification - [facility] - Has Care Guidelines - PDMP - [facility] - 2 Visits in 30 Days CARE PROVIDERS CRYSTAL, [facility] 08/05/2018-Current CELINA Graham PHONE: [phone] Saleem has no Care Guidelines for this patient. Care History Medical/Surgical 02/23/2019 [facility] CAUTION PRESCRIBING NARCOTICS - PATIENT IS UNDER PAIN PLAN WITH PCP DR CELINA ROJAS IF PATIENT NEEDS PAIN MED ACUTELY - GIVE 2-3 DAYS WORTH RX, THEN PATIENT IS TO CONTACT PCP FOR FURTHER MEDS.\T\nbsp; DO NOT TELL HER TO TAKE MORE OF WHAT SHE IS CURRENTLY ON.\T\nbsp; THIS WAS DIRECT WISH OF PCP. Kelly VISIT COUNT ([address] [facility] TOTAL 3 NOTE: Visits indicate total known visits. ED/UCC VISIT TRACKING (12 MO.) 11/17/2019 20:03 [facility] TYPE: Emergency COMPLAINT: - MULTIPLE COMPLAINTS 11/11/2019 11:21 [facility] TYPE: Emergency COMPLAINT: - BACK PAIN, SOB 02/19/2019 18:39 [facility] TYPE: Emergency COMPLAINT: - FOOT INJ DIAGNOSES: - Sprain of unspecified ligament of right ankle, initial encoun - Hypothyroidism, unspecified - supervisor intermediates (current) use of oral hypoglycemic drugs - Allergy status to penicillin - Unspecified asthma, uncomplicated - Essential (primary) hypertension - Bee allergy status - Overexertion from prolonged static or awkward postures, initi - Pain in right ankle and joints of right foot - Other fdc (current) drug therapy - Allergy status to serum and vaccine status - Blister (nonthermal), right foot, initial encounter - Type 2 diabetes mellitus without complications INPATIENT VISIT TRACKING (12 MO.) 11/11/2019 18:41 [facility] TYPE: Medical Surgical COMPLAINT: - PNEUMONIA [email or web address]
--- NOTE | 2019-11-17 23:55 | NUR ---
PATIENT ARRIVED AT 2335 FROM ER, STOOD WITH 2 PERSON STANDBY ASSIST AND USED THE BEDSIDE COMMODE AND VOIDED, AND THEN 2 PERSON ASSIST TO GET INTO BED AND START HER ASSESSMENT. OSVALDO CHARGE NURSE WORKING WITH HER NOW.
--- NOTE | 2019-11-18 02:03 | NUR ---
PATIENT STATES SHE HAD "SEVERAL ACCIDENTS BUT I SLEPT THROUGH IT AND DIDNT WANT TO CALL". PATIENT STATES SHE CANNOT STAND TO BE CHANGED. THIS TIMBER TRIMMER ASSISTED PATIENT TO CHANGE BRIEF AND CHUX. PATIENT ABLE TO ROLL HERSELF IN BED WITH NO ISSUES. PERICARE AND SKINCARE PERFORMED, RN NOTIFIED. NO FURTHER NEEDS AT THIS TIME.
--- NOTE | 2019-11-18 04:30 | NUR ---
PATIENT RESTING QUIETLY, RESPIRATIONS REGULAR AND EVEN, CALL LIGHT IN REACH EYES CLOSED.
--- NOTE | 2019-11-18 06:46 | EKG ---
[facility] [address] [facility] [place] [address] Signed Sinus tachycardia Low voltage QRS Borderline ECG When compared with ECG of 11-NOV-2019 11:35, Nonspecific T wave abnormality now evident in Anterior leads Confirmed by FINN CROWELL MD ([id number]) on 11/18/2019 6:46:11 AM Electronically Signed By: FINN CROWELL MD 11/18/19 0646 PATIENT NAME: AMAURY MISHRAJUAQUIN ANDERSONE Electrocardiogram DATE OF : [birth year] PHYSICIAN: FINN CROWELL MD REPORT #: [id number] REPORT IS CONFIDENTIAL AND NOT TO BE RELEASED WITHOUT AUTHORIZATION
--- NOTE | 2019-11-18 07:00 | NUR ---
PATIENT HAD ANOTHER LARGE INCONTINENCE WHICH REQUIRED AN ENTIRE BED CHANGE. PATIENT HAS HAD 2 NOW THIS SHIFT. GOT OUT OF BED WITH 2 PERSON SBA AND DID A STANDING SCALE WEIGHT, THEN WALKED TO THE BATHROOM AND VOIDED AGAIN AND BACK TO BED. PATIENT'S SWELLING IS DOWN IN HER LE AND HER PAIN HAS GREATLY DECREASED. REPORT TO DAYSDRE RN.
--- NOTE | 2019-11-18 07:23 | NUR ---
THIS SOLVENT RECOVERER ASSISTED INDIRA SHARMA TO STAND PATIENT FOR WEIGHT AND CHANGE LINENS AND ATTENDS. PATIENT AMBULATED TO BATHROOM WITH ASSISTANCE AND BACK TO BED. PATIENT REPOSITIONED IN BED, RN AT BEDSIDE. CALL LIGHT IN REACH. NO FURTHER NEEDS AT THIS TIME.
--- NOTE | 2019-11-18 07:42 | NUR ---
RECIEVED BEDSIDE REPORT FROM INDIRA SHARMA. PT IS SLEEPING SOUNDLY. PT HAS VOIDED IN THE BED SEVERAL TIMES, VERY LARGE VOIDS. PT NEEDS A LOT OF ENCOURAGEMENT TO GET UP AND MOVE. PT DOES NOT WANT TO MOVE.
--- NOTE | 2019-11-18 08:23 | NUR ---
DR CROWELL AWARE OF BLOOD SUGAR. CONFIRM TO GIVE THE SLIDING SCALE.
--- NOTE | 2019-11-18 08:53 | NUR ---
PT SLEEPING IN BED, REPORTED BEING COLD, ROOM WAS CHILLY AT 68*. PT COUGHED ONCE, REPORTED PEEING AT THAT TIME. PT IS ALERT AND WAKES TO VOICE.
--- NOTE | 2019-11-18 09:38 | NUR ---
PT IS OFF THE FLOOR TO XRAY.
--- NOTE | 2019-11-18 10:00 | NUR ---
PT IS BACK IN ROOM.
--- NOTE | 2019-11-18 10:36 | NUR ---
PT REQUESTED A BREATHING TREATMENT URGENTLY. KB RESPONDED TO GIVE TREATMENT AND PT NEEDED TO USE THE BATHROOM. PT ABLE TO WALK INTO THE BATHROOM. PT NOW GETTING A BREATHING TREATMENT. FAMILY MEMBER CALLED WHILE SHE WAS IN THE BATHROOM. FAMILY MEMBER WANTED HER WOKEN UP, STAFF EXPLAINED THAT SHE WAS GETTING A TREATMENT AND SHE WOULD CALL BACK LATER.
--- NOTE | 2019-11-18 14:42 | NUR ---
PATIENT IN BED RESTING WITH EYES CLOSED. CALL LIGHT IN REACH. NO FURTHER NEEDS AT THIS TIME.
--- NOTE | 2019-11-18 17:47 | NUR ---
PATIENT SITTING ON EDGE OF BED. FRESH WATER GIVEN. CALL LIGHT IN REACH. NO FURTHER NEEDS AT THIS TIME.
--- NOTE | 2019-11-18 19:10 | NUR ---
REPORT RECEIVED FROM DAY SHIFT RN. PT SITTING UP IN BED, ALERT AND ORIENTED. DENIES NEEDS AT THIS TIME. WHITE BOARD UPDATED. CALL LIGHT IN REACH.
--- NOTE | 2019-11-18 20:19 | NUR ---
SOFT CRAB SHEDDER ROUNDING NOTE. PT RESTING IN BED. STATES THAT SHE IS HAVING PAIN IN HER HANDS, SHE SPOKE TO HER PRIMARY RN PADMA, WHO WILL BRING HER PRN. PT INQUIRES ABOUT HER OXYCODONE, STATES THAT SHE TAKES THIS ROUTINELY TID AT HOME FOR PAIN. PT INFORMED THAT I WILL DISCUSS THIS WITH PRIMARY RN. PT STATES UNDERSTANDING. DENIES FURTHER NEEDS AT THIS TIME. CALL LIGHT IN REACH. WHITE BOARD UPDATED.
--- NOTE | 2019-11-18 20:26 | NUR ---
PT C/O BILAT HAND NUMBNESS AND TINGLING. BUE ELEVATED WITH PILLOWS. PT REPORTS NERVE PAIN IN HANDS IS CHRONIC. REQUESTING HOME PAIN MED. NOTIFIED, NEW ORDERS RECEIVED VERIFIED WITH READ BACK METHOD.
--- NOTE | 2019-11-18 21:00 | NUR ---
EVENING ASSESSMENT COMPLETE. SCHEDULED MEDS ADMINISTERED. PRN GIVEN FOR PAIN. PT REQUESTING BREATHING TX, RT NOTIFIED. PT UP TO BR WITH 1PA AND FWW, GAIT STEADY. BACK TO BED, LEILA FAIR. BLE ELEVATED IN BED. PT DENIES FURTHER NEEDS AT THIS TIME. CALL LIGHT IN REACH.
--- NOTE | 2019-11-18 21:15 | NUR ---
Pt was using the restroom, she claimed that a bug crawled out of the floor drain and up the curtain. I found the bug and put it in a wipe. I brought the bug out to inform charge nurse, placed it in a plastic bag, we identified the bug as a bed bug. We infromed track supervisor and pt continues on contact precautions.
--- NOTE | 2019-11-18 23:20 | NUR ---
PT RESTING IN BED WITH EYES CLOSED, NAD.
--- NOTE | 2019-11-19 00:53 | NUR ---
PER RECOMMENDATION OF MACHINE SWEEPER BRUSH MAKER, PT'S BELONGINGS PLACED INTO RED BIHAZARD BAGS. THIS PLANT TAXONOMIST AND PT'S PRIMARY RN FOUND SEVERAL MORE BUGS OF VARYING SIZE, SOME ALIVE AND SOME ARE ALREADY . X1 IN THE BATHROOM, X 2 IN THE CLOSEST. PLANT TAXONOMIST OPENS PLASTIC SACK CONTAINING PT'S CLOTHES, ONE BUG IS VISIBLE CRAWLING IN PT'S WADDED UP CLOTHES. PLANT TAXONOMIST ASKS PT IF SHE RECOGNIZED THE BUG SHE SAW EARLIER, SHE STATES SHE DID NOT. PT DENIES QUESTIONS, CONCERNS, OR NEEDS. CALL LIGHT IN REACH.
--- NOTE | 2019-11-19 03:36 | NUR ---
ASSESSMENT COMPLETE. PRN GIVEN FOR PAIN. PT DENIES FURTHER NEEDS. CALL LIGHT IN REACH.
--- NOTE | 2019-11-19 05:10 | NUR ---
PT RESTING IN BED WITH EYES CLOSED, NAD.
--- NOTE | 2019-11-19 06:09 | NUR ---
pt requests prn pain medicatino for 8.5 pain to l ankle. prna dministered. pt denies further needs. call light in reach.
--- NOTE | 2019-11-19 07:46 | NUR ---
PATIENT REFUSED SHOWER STATING THAT HER LEFT LEG AND ANKLE ARE HURTING HER TOO BAD WILL RE APPROACH
--- NOTE | 2019-11-19 08:55 | NUR ---
PLAN FOR DECONTAMINATION: PT WILL BE SHOWERED AND IMMEDIATELY PLACED INTO A CLEAN ROOM, PERSONAL BELONGINGS WILL BE SEALED IN THIRD BAG.
--- NOTE | 2019-11-19 09:16 | NUR ---
PT'S BELONGINGS ARE CONTAINED IN CLEANED BAGS. PT IS IN THE SHOWER AND IS GETTING THROUGHLY DECONTAMINATED, INCLUDING HAIR AND BODY. ALL PERSONAL BELONGING ARE BAGGED OR REMOVED. PT IS MOVED TO CLEAN ROOM SO ROOM CAN BE DECONTAMINATED. CLEAN AND UNINFECTED CLOTHING GIVEN TO PT AFTER SHOWER AND PT WILL BE MOVED TO A CLEAN ROOM.
--- NOTE | 2019-11-19 09:41 | NUR ---
PT IS MOVED TO NEW ROOM. NO PERSONAL BELONGINGS TAKEN TO ROOM, EXCEPT THOSE THAT CAN BE WIPED DOWN AND DECONTAMINATED. ALL OTHER PERSONAL BELONGINGS TRIPLED BAGGED AND LEFT IN PREVIOUS ROOM. EVS WILL PLACE IN A SECURE LOCATION.
--- NOTE | 2019-11-19 10:23 | NUR ---
ALL PERSONAL BELONGINGS ARE SECURED AND WILL NOW BE STORED IN BOIHAZARD ROOM CLEARLY LABELED WITH PATIENT STICKERS AND DO NOT REMOVE FROM ROOM. RECOMMENDATIONS PER LEEANN-INFECTION CONTROL NURSE.
--- NOTE | 2019-11-19 10:25 | NUR ---
RN COMBED AND BRAIDED PT'S HAIR. PT EXPRESSED APPRECIATION.
--- NOTE | 2019-11-19 12:20 | NUR ---
PT HAS BEEN UP TO CHAIR. IRON INFUSION COMPLETE. IV IS VERY POSITIONAL.
--- NOTE | 2019-11-19 14:11 | NUR ---
PATIENT IN BED, RESTING, PATIENTS VITAL SIGNS AND INTAKE AND OUTPUT ARE DONE PATIENT NEEDED NOTHING ELSE AT THAT TIME
--- NOTE | 2019-11-19 18:03 | NUR ---
PT IS MOVING MUCH EASIER. SHE IS WALKING TO THE BATHROOM WITH FWW. SHE IS NOT NEEDING ANY STAFF ASSISTANCE TO GET UP AT THIS TIME, THOUGH SHE WILL TRY TO HAVE STAFF GET HER UP RATHER THAN GET HERSELF UP. PT BLOOD SUGARS HAVE BEEN UNDER VERY GOOD CONTROL THIS SHIFT. NO SS NEEDED.
--- NOTE | 2019-11-19 19:38 | NUR ---
REPORT RECEIVED FROM DAY SHIFT RN. PT LYING IN BED, ALERT AND ORIENTED. DENIES NEEDS AT THIS TIME. WHITE BOARD UPDATED. CALL LIGHT IN REACH.
--- NOTE | 2019-11-19 20:55 | NUR ---
PATIENT AMBULATED TO BATHROOM AND BACK TO BED WITH SUPERVISION. CALL LIGHT IN REACH. RESPIRATORY THERAPIST IN ROOM. NO FURTHER NEEDS AT THIS TIME.
--- NOTE | 2019-11-19 21:55 | NUR ---
EVENING ASSESSMENT COMPLETE. SCHEDULED MEDS ADMINISTERED. PRN GIVEN FOR BLE PAIN PT REPORTS IS DUE TO "SWELLING". BLE EDEMA NOTED, PT WITH FEET ELEVATED. ICE WATER PROVIDED, PT WITHIN FLUID RESTRICTION. NO FURTHER NEEDS AT THIS TIME. CALL LIGHT WITHIN REACH.
--- NOTE | 2019-11-19 23:15 | NUR ---
PT C/O NAUSEA. UNABLE TO FLUSH RIGHT UPPER ARM IV. DR. CROWELL NOTIFIED. ORDERS RECEIVED FOR PO ANTIEMTIC. PRN AND COOL WASH CLOTH PROVIDED.
--- NOTE | 2019-11-19 23:29 | NUR ---
PT UP TO BR WITH SBA AND FWW. GAIT STEADY. BACK TO BED, LEILA WELL. PT REPORTS NAUSEA HAS IMPROVED. NO FURTHER NEEDS AT THIS TIME. CALL LIGHT IN REACH.
--- NOTE | 2019-11-20 02:09 | NUR ---
20 G IV STARTED IN RIGHT HAND PER PROTOCOL. RIGHT UPPER ARM IV NOT PATENT. DC'D, TIP IN TACT. PT LEILA WELL. PT REQUESTING PRN BREATHING TX. RT NOTIFIED. PRN ADMINISTERED FOR PAIN. PT UP TO BR WITH SBA AND FWW. BACK TO BED, LEILA WELL. PT REPORTS NAUSEA HAS PASSED.
--- NOTE | 2019-11-20 03:07 | NUR ---
PT UP TO BR WITH SBA AND FWW. GAIT STEADY. BACK TO BED, LEILA WELL. CRACKERS PROVIDED PER PT REQUEST.
--- NOTE | 2019-11-20 06:00 | NUR ---
VS AND I&O COMPLETE. DAILY WEIGHT OBTAINED. PT UP TO BR WITH SBA AND FWW, GAIT STEADY. BACK TO BED, LEILA WELL. PRN ADMINISTERED FOR PAIN. PT DENIES FURTHER NEEDS. CALL LIGHT IN REACH.
--- NOTE | 2019-11-20 07:40 | NUR ---
RECIEVED BEDSIDE REPORT FROM INDIRA ROUSE. PT HAD A GOOD NIGHT. REQUESTED A BREATHING TREATMENT.
--- NOTE | 2019-11-20 07:57 | NUR ---
PATIENT HAS BEEN UP AND USED THE RESTROOM, PATIENT REQUESTED A BREATHING TREATMENT RT IS CURRENTLY IN THE ROOM, PATIENT NEEDED NO OTHER ASSISTANCE AT THIS TIME
--- NOTE | 2019-11-20 13:20 | NUR ---
PT IS STARTING HER FIRST UNIT OF BLOOD. EDUCATION COMPLETE ON S/SX OF TRANSFUSION REACTION. PT DENIED ANY S/SX. PT IS AWAKE AND ALERT, SITTING IN THE CHAIR. REQUESTED PAIN MEDS. 650MG TYLENOL GIVEN FOR LEG PAIN.
--- NOTE | 2019-11-20 14:42 | NUR ---
NO S/SX OF TRANSFUSION REACTION. IV IS CONTINUING TO INFUSE.
--- NOTE | 2019-11-20 17:06 | NUR ---
PATIENT HAS BEEN IN BED AND HAS BEEN UP IN THE CHAIR TODAY
--- NOTE | 2019-11-20 19:38 | NUR ---
REPORT RECEIVED FROM DAY SHIFT RN. PT LYING IN BED RESTING WITH EYES CLOSED. RESPIRATIONS EVEN AND UNLABORED. WHITE BOARD UPDATED. CALL LIGHT WITHIN REACH.
--- NOTE | 2019-11-20 21:44 | NUR ---
PT UP TO BR WITH SBA AND FWW. GAIT STEADY. BACK TO BED, LEILA WELL. REQUESTING PRN BREATHING TX, RT NOTIFIED. EVENING ASSESSMENT COMPLETE. SCHEDULED MEDS ADMINISTERED. PRN GIVE FOR RIGHT ANKLE PAIN. HEAT PACK APPLIED TO RIGHT ANKLE WELL. VS AND I&O COMPLETE. NO FURTHER NEEDS. CALL LIGHT IN REACH.
--- NOTE | 2019-11-20 23:00 | NUR ---
PT UP TO BR WITH SBA AND FWW. GAIT STEADY. BACK TO BED, LEILA WELL. PRN PROVIDED FOR "ACID COMING UP". NO FURTHER NEEDS. CALL LIGHT IN REACH.
--- NOTE | 2019-11-21 01:51 | NUR ---
PT RESTING IN BED WITH EYES CLOSED, NAD.
--- NOTE | 2019-11-21 02:50 | NUR ---
PT RETURNING FROM BR. REQUESTING PRN BREATHING TX. RT NOTIFIED. PRN ADMINISTERED FOR C/O PAIN.
--- NOTE | 2019-11-21 05:15 | NUR ---
PT RESTING IN BED WITH EYES CLOSED LYING ON LEFT SIDE. RR EVEN AND UNLABORED. CALL LIGHT IN REACH.
--- NOTE | 2019-11-21 06:23 | NUR ---
PT CALLED, SBA TO BATHROOM TO VOID, BACK TO BED SBA. PRIOR TO THIS, SHE COMPLAINED OF HEADACHE, FEET AND LEG PAIN. MED WITH PRN MED, MAALOX FOR HEARTBURN WELL. PERSONAL ITEMS WITHIN REACH. DID NOT VISUALIZE ANY "BEDBUGS" WHILE IN PT ROOM.
--- NOTE | 2019-11-21 09:35 | NUR ---
PATIENT UP TO CHAIR, RN IN ROOM. CALL LIGHT IN REACH. NO FURTHER NEEDS AT THIS TIME.
--- NOTE | 2019-11-21 11:00 | NUR ---
Spoke with Petra, she states she returned the same day as dc by ambulance as she fell twice. She states she slid off her bed attempting to scoot back. Feels she cannot take care of her self and needs a SNF. She lives with her 80 yo father and her brother. They all care for themselves and share food cost, cleaning, and cooking. Petra was noted to have bed bugs on her return. Bugs were found in her belongings. [facility] was notified to eval and see if they can help her father. Phone number for [facility] given to Petra. She states she would prefer they not visit until her brother can be there. Informed this is why I am giving her [facility] phone number so they can set up appts. Updated I have spoken with Pina with [facility] and they are awaiting auth from Maximilian.
--- NOTE | 2019-11-21 12:27 | NUR ---
TOOK PT TO RESTROOM WHERE SHE GOT NAUSEOUS WHILE ON TOILET. ADMINISTERED ZOFRAN. PT DID WELL WITH CONTRAST IN CT SCAN.
--- NOTE | 2019-11-21 13:48 | NUR ---
PATIENT RESTING IN BED. VITAL SIGNS DONE BY RN. I&O DONE. PATIENT INCONTINENT OF STOOL, PERICARE PERFORMED. LINENS CHANGED. TWO PERSON ASSITING. CALL LIGHT WITHIN REACH. NO OTHER NEEDS AT THIS TIME
--- NOTE | 2019-11-21 13:53 | NUR ---
WENT TO VISIT PT-SHE WAS TAKEN TO IMAGING. WILL FOLLOW
--- NOTE | 2019-11-21 15:50 | NUR ---
PT DISCHARGED WITH EMS TO [facility]. PT ASSISTED TO BATHROOM WITH 1 FWW. SENT WITH HER PHONE, ROCHELLET AND A DONATED PHONE BEREAVEMENT PROGRAM COORDINATOR HER BELONGINGS ARE IN BIOHARZARD BAGS AT MATHEMATICAL ENGINEER FOR FRIEND TO AERIAL PHOTOGRAPHER.
== END 2019-11-21 15:45 | disposition short-term general hospital (02) ==
LOC: ED 20:02 → MS 20:04
PROVIDERS: ADMIT Internal Medicine
DX: J44.0 Chronic obstructive pulmonary disease with (acute) lower respiratory infection (principal); J15.212 Pneumonia due to Methicillin resistant Staphylococcus aureus; N39.0 Urinary tract infection, site not specified; B96.20 Unspecified Escherichia coli [E. coli] as the cause of diseases classified elsewhere; B96.4 Proteus (mirabilis) (morganii) as the cause of diseases classified elsewhere; B96.1 Klebsiella pneumoniae [K. pneumoniae] as the cause of diseases classified elsewhere; E11.649 Type 2 diabetes mellitus with hypoglycemia without coma; D47.3 Essential (hemorrhagic) thrombocythemia; D64.9 Anemia, unspecified; J45.909 Unspecified asthma, uncomplicated; E03.9 Hypothyroidism, unspecified; E78.5 Hyperlipidemia, unspecified; K21.9 Gastro-esophageal reflux disease without esophagitis; F51.04 Psychophysiologic insomnia; G89.4 Chronic pain syndrome; E66.01 Morbid (severe) obesity due to excess calories; Z68.42 Body mass index [BMI] 45.0-49.9, adult; Z88.0 Allergy status to penicillin; Z91.09 Other allergy status, other than to drugs and biological substances; Z91.013 Allergy to seafood; Z88.7 Allergy status to serum and vaccine; W19.XXXA Unspecified fall, initial encounter
CPT/HCPCS: 36415; 36430; 36600; 71045; 71046; 71260; 80048; 80053; 80069; 80202; 81001; 82803; 83880; 85025; 85027; 85651; 86850; 86900; 86901; 86920; 93005; 93010; 94640; 96365; 96372; 96375; 96376; 97110; 97162; 97165; 97530; 99285-25; G0378; J1200; J1650; J1815; J1940; J2405; J3370; J7060; J7121; P9016; Q0138; Q9967

== ENCOUNTER 2019-12-16 18:46 | Emergency (ER) | payer OTHER ==
[~2019-12-16] VITALS: Ht 160 cm; Wt 126.1 kg
--- OUTSIDE RECORDS SUMMARY | 2019-12-16 18:48 | XMS ---
PreManage Notification: PHOENIX MISHRA Security Nurse Navigator Events No recent Security Events currently on file CRITERIA MET - Group Notification - [facility] - Has Care Guidelines - PDMP - [facility] - 2 Visits in 30 Days CARE PROVIDERS CRYSTAL, [facility] 08/05/2018-Current CELINA Graham PHONE: [phone] Saleem has no Care Guidelines for this patient. Care History Medical/Surgical 02/23/2019 [facility] CAUTION PRESCRIBING NARCOTICS - PATIENT IS UNDER PAIN PLAN WITH PCP DR CELINA ROJAS IF PATIENT NEEDS PAIN MED ACUTELY - GIVE 2-3 DAYS WORTH RX, THEN PATIENT IS TO CONTACT PCP FOR FURTHER MEDS.\T\nbsp; DO NOT TELL HER TO TAKE MORE OF WHAT SHE IS CURRENTLY ON.\T\nbsp; THIS WAS DIRECT WISH OF PCP. Kelly VISIT COUNT (12 MO.) [address] [facility] TOTAL 4 NOTE: Visits indicate total known visits. ED/UCC VISIT TRACKING (12 MO.) 12/16/2019 18:47 [facility] [place] TYPE: Emergency COMPLAINT: - SOB 11/17/2019 20:03 [facility] [place] TYPE: Emergency COMPLAINT: - MULTIPLE COMPLAINTS 11/11/2019 11:21 [facility] [place] TYPE: Emergency COMPLAINT: - BACK PAIN, SOB 02/19/2019 18:[address] [facility] [place] TYPE: Emergency COMPLAINT: - FOOT INJ DIAGNOSES: - Sprain of unspecified ligament of right ankle, initial encoun - Hypothyroidism, unspecified - [facility]CI (current) use of oral hypoglycemic drugs - Allergy status to penicillin - Unspecified asthma, uncomplicated - Essential (primary) hypertension - Bee allergy status - Overexertion from prolonged static or awkward postures, initi - Pain in right ankle and joints of right foot - Other longterm (current) drug therapy - Allergy status to serum and vaccine status - Blister (nonthermal), right foot, initial encounter - Type 2 diabetes mellitus without complications INPATIENT VISIT TRACKING (12 MO.) [facility] DIAGNOSES: - Essential (primary) hypertension - Pleural effusion, not elsewhere classified - Chronic obstructive pulmonary disease, unspecified - PNA, empyema - Chronic pain syndrome - Pneumonia due to Methicillin resistant Staphylococcus aureus - Other nonspecific abnormal finding of lung field - Essential (hemorrhagic) thrombocythemia - Anemia in other chronic diseases classified elsewhere - Sepsis, unspecified organism - Chronic kidney disease, stage 3 (moderate) - Pyothorax without fistula - Weakness - Type 2 diabetes mellitus with diabetic nephropathy - Acute kidney failure, unspecified 11/17/2019 20:04 [facility] TYPE: Observation COMPLAINT: - DECONDITIONING EDEMA DIAGNOSES: - Unspecified fall, initial encounter - Chronic pain syndrome - Hyperlipidemia, unspecified - Allergy status to serum and vaccine status - Klebsiella pneumoniae [K. pneumoniae] as the cause of disease - Pneumonia due to Methicillin resistant Staphylococcus aureus - Anemia, unspecified - Essential (hemorrhagic) thrombocythemia - Gastro-esophageal reflux disease without esophagitis - Urinary tract infection, site not specified - Allergy status to penicillin - Localized edema - Body mass index (BMI) 45.0-49.9, adult - Other allergy status, other than to drugs and biological subs - Morbid (severe) obesity due to excess calories - Unspecified asthma, uncomplicated - Proteus (mirabilis) (morganii) as the cause of diseases class - Allergy to seafood - Chronic obstructive pulmonary disease with acute lower respir - Type 2 diabetes mellitus with hypoglycemia without coma - Unspecified Escherichia coli [E. coli] as the cause of diseas - Psychophysiologic insomnia - Hypothyroidism, unspecified 11/11/2019 18:41 [facility] TYPE: Medical Surgical COMPLAINT: - PNEUMONIA DIAGNOSES: - Obesity, unspecified - Chronic pain syndrome - Other longterm (current) drug therapy - Severe sepsis without septic shock - Tachycardia, unspecified - Other specified sepsis - Anemia, unspecified - Body mass index (BMI) 45.0-49.9, adult - Allergy status to penicillin - Urinary tract infection, site not specified - Hypothyroidism, unspecified - Hyperlipidemia, unspecified - Hypomagnesemia - Unspecified asthma, uncomplicated - FCI (current) use of systemic steroids - Sepsis due to Escherichia coli [E. 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
--- NOTE | 2019-12-16 20:45 | EKG ---
[facility] [address] [place], [place] [address] Signed Normal sinus rhythm Normal ECG Confirmed by FINN CROWELL MD ([id number]) on 12/16/2019 8:45:06 PM Electronically Signed By: FINN CROWELL MD 12/16/195 PATIENT NAME: PHOENIX MISHRA Electrocardiogram DATE OF : 69 PHYSICIAN: FINN CROWELL MD REPORT #: [id number] REPORT IS CONFIDENTIAL AND NOT TO BE RELEASED WITHOUT AUTHORIZATION
== END 2019-12-16 23:09 | disposition home or self-care (01) ==
LOC: ED 18:46
DX: J44.1 Chronic obstructive pulmonary disease with (acute) exacerbation (principal); E11.9 Type 2 diabetes mellitus without complications; I10 Essential (primary) hypertension; E03.9 Hypothyroidism, unspecified; Z87.891 Personal history of nicotine dependence; Z88.0 Allergy status to penicillin; Z91.09 Other allergy status, other than to drugs and biological substances; Z91.013 Allergy to seafood; Z88.7 Allergy status to serum and vaccine; Z79.899 Other long term (current) drug therapy; Z79.84 Long term (current) use of oral hypoglycemic drugs
CPT/HCPCS: 71046; 71260; 80053; 83880; 84484; 85025; 85379; 93005; 93010; 94640; 99285-25; J2405; J2930; Q9967

== ENCOUNTER 2020-01-21 07:57 | Emergency (ER) | payer OTHER ==
[~2020-01-21] VITALS: Ht 160 cm; Wt 115.7 kg
--- OUTSIDE RECORDS SUMMARY | ~2020-01-21 | XMS | Clinical Summary ---
Demographics + + + | Address | [address] | | | [place] [address] | + + + | Home Phone | | + + + | Preferred Language | Unknown | + + + | Marital Status | Legally | + + + | Episcopal Affiliation | Unknown | + + + | Race | Unknown | + + + | Ethnic Group | Unknown | + + + Author + + + | Author | [facility] | | | and [place] | + + + | Organization | [facility] | | | and [...] Team Providers + +------+ + | Care Automobile Assembly Supervisor Name | Role | Phone | [...] ) | | 2020 | | | Community Placement Worker | | +--------+ + + + + [...] 2019 | Visit | | | space ([facility]) (Primary | | | | | | [...] | | | | Romario Dawson, | ([facility]); Empyema of | | | | | MD | pleural space ([facility]); | | | | | | Essential | | | | | | hypertension, | | | | | | benign; Pneumonia of | | | | | | right lower lobe | | | | | | due to methicillin | | | | | | resistant | | | | | | Staphylococcus | | | | | | aureus (MRSA) ([facility]); | | | | | | 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, without | | | | | | long-term current | | | | | | use of insulin | | | | | | ([facility]); Pulmonary | | | | | | nodules; | | | | | | Thrombocytosis | | | | | | ([facility]); Loculated | | | | | | pleural effusion; | | | | | | EVA (acute kidney | | | | | | injury) ([facility]); | | | | | | Sepsis, due to | | | | | | unspecified | | | | | | organism, | | | | | | unspecified whether | | | | | | acute organ | | | | | | dysfunction present | | | | | | ([facility]); Chronic | | | | | | obstructive | | | | | | pulmonary disease, | | | | | | unspecified COPD | | | | | | type ([facility]); Weakness | | | | | | [...] | | | POC | performed at [facility] | | LABORATORY | | | | [address];[place], [place] | | | | | | [address] | | | | + + + + + + + + | Specimen | + + | | + + + + + + + | Performing | Address | City/State/Zipcode | Phone Number | | Organization | | | | + + + + + | [facility] | [address] | [place] [address] | [phone] | + + + + + XR [...] LABORATORY | | | | performed at [facility];[address] | | | | | | [address];[place] | | | | | | [address] | | | | | | | | | | + + + + + + + + | Specimen | + + | Blood | + + + + + + + | Performing | Address | City/State/Zipcode | Phone Number | | Organization | | | | + + + + + | [facility] | [address] | [place] [address] | [phone] | + + + + + XR [...] | | | Serum | performed at [facility];[address] | mmol/L | LABORATORY | | | | [address];[place], [place] | | | | | | [address] | | | | + + + + + + + + | Specimen | + + | Blood | + + + + + + + | Performing | Address | City/State/Zipcode | Phone Number | | Organization | | | | + + + + + | [facility] | [address] | [place] [address] | [phone] | + + + + + Basic [...] | | | | | performed at [facility], [address] | | | | | | [facility], | | | | | | [place] [address] | | | | + + + + + + + + | Specimen | + + | Blood | + + + + + + + | Performing | Address | City/State/Zipcode | Phone Number | | Organization | | | | + + + + + | [facility] | [address] | [place] [address] | [phone] | + + + + + DIAGNOSTIC [...] | | | | | performed at [facility];[address] | | | | [address];[place], [place] | | | | | | [address] | | | | + + + + + + + + | Specimen | + + | Blood | + + + + + + + | Performing | Address | City/State/Zipcode | Phone Number | | Organization | | | | + + + + + | [facility] | [address] | [place] [address] | [phone] | + + + + + Culture, [...] [place] | | | | | | [address]Fr[address]: Testing | | | | | | performed at [facility], [address] | | | | | | [address], | | | | | | [place] [address] | | | | + + + + + + + + | Specimen | + + | Body Fluid - Pus | | specimen (specimen) | + + + + + + + | Performing | Address | City/State/Zipcode | Phone Number | | Organization | | | | + + + + + | [facility] | [address] | [place] [address] | [phone] | + + + + + Medical Cytology (11/23/2019 10:55 AM PDT) + + | Specimen | + + | Body Fluid - Pus | | specimen (specimen) | + + + + + | Narrative | Performed At | + + + | ORDERING | [facility] | | PHYSICIAN:Calderon Leggett MD PATIENT [...] | | LABORATORY:Technical preparation was performed by [facility], | | | [address] [place] [address] (Manager Clinical Research: | | | Sebas Tolliver D.O.; CLIA#: [id number]).Professional interpretation | | | was performed by [facility], [facility], [address] | | | [place] [address] (Manager Clinical Research: Leif | | | Hugh Layne; CLIA#: [id number]).6 Diagnostician: Hector Bryant | | | [facility])CytotechnologistDiagnostician: Leif Layne | | | MDPathologistElectronically Signed 11/24/2019 | | | | | |DESCRIPTION: | | |The preparations contain mesothelial cells, rare inflammatory cells, and acellular proteina ceous material. Atypical cytologic findings are not encountered. | | | | | |SPECIMEN ADEQUACY: | | |Satisfactory for Evaluation | | | | | |PERFORMING LABORATORY: | | |Technical preparation was performed by [facility], [address] [place] [address] (Manager Clinical Research: Sebas Tolliver D.O.; CLIA#: [id number]). | | |Professional interpretation was performed by [facility], [facility], [address] [place] [address] (Manager Clinical Research: Leif Layne M.D.; CLIA#: [id number]).6 | | | | | |Diagnostician: Hector Bryant CT ([facility]) | | |Mat Repairer | | |Diagnostician: Leif Layne MD | [...] | | | clinician's orders. A 12 Faroese locking pigtail catheter is placed. | | [...] the | | clinician's orders. A 12 Faroese locking pigtail catheter is placed. | | [...] | INR | 1.2Comment: REFERENCE | | [facility] | | | | RANGE:0.9 - 1.2 [...] | | | | | performed at [facility];[address] | | | | | | [address];[place] | | | | | | [address] | | | | + + + + + + + + | Specimen | + + | Blood | + + + + + + + | Performing | Address | City/State/Zipcode | Phone Number | | Organization | | | | + + + + + | [facility] | [address] | [place] [address] | [phone] | + + + + + Magnesium (11/22/2019 5:18 AM PDT) + + + + + + | Component | Value | Ref Range | Performed | Pathologist | | | | | At | Signature | + + + + + + | Magnesium | 1.3 (L)Comment: Testing | 1.7 - 2.4 mg/dL | [facility] | | | | performed at [facility];[address] | | LABORATORY | | | | [address];[place] | | | | | | [address] | | | | + + + + + + + + | Specimen | + + | Blood | + + + + + + + | Performing | Address | City/State/Zipcode | Phone Number | | Organization | | | | + + + + + | [facility] | [address] | [place] [address] | [phone] | + + + + + from [...] | [employer] | [employer] | [id number] | 06/28/19 | [phone] | | Medica | | MEDICAID HMO | HEALTH | | 13-Pre | 1 | | id | | | MDCD | | sent | | | | | | [place]MO [place] | | | | | | + +--------+ +--------+ +---------+--------+ | [employer] | [employer] | [id number] | | [phone] | | Medica | | MEDICAID HMO [...] [place]lie | | | 2 (Home) | [address] | + +--------+ +--------+ + + | Phoenix Dangelo M | Person | Self | [birth year] | [address] | | | al/Fam | | 1964 | [address] | [place], [place] | | | charlie | | | 2 (Home) | [address] | + +--------+ +--------+ + + Advance Directives + + + + + | Type | Date Recorded | Patient | Explanation | | | | Nuclear Medical Technologist | | + + + + + | Power of | | | | | Polisher Dial | | | | + + + [...]
--- OUTSIDE RECORDS SUMMARY | ~2020-01-21 | XMS | Encounter Summary ---
Demographics + + + | Address | [address] | | | [place] [address] | + + + | Home Phone [...] + + + | Author | [facility] | | | and [place] | + + + | Organization | [facility] | | | [...] Team Providers + +------+ + | Care Clinical Academic Allergist Name | Role | Phone | + +------+ + | Roberth Gaspar MD | PCP | | + +------+ + Reason for Visit + +--------+ + | Reason | Onset | Comments | | | Date | | + +--------+ + | Lab Results | 11/11/ | | | | 2016 | | + +--------+ + Encounter Details +--------+ + + + + | Date | Type | Department | Care Team | Description | +--------+ + + + + | 11/11/ | Telephone | [facility] [place] | Oc Mooney, | Lab Results | | 2017 | | [address]ATRY [address] | MD [address] | | | | | [address] | [place] | | | | | [place] | [address] | | | | | [address] | | | | | | [phone] | | | +--------+ + + + [...] this encounter Miscellaneous Notes Telephone Encounter - Donna Jara, Dramatic Agent - 11/11/2016 2:[address] to inform Petra Dangelo about lab results. Petra Dangelo has low B12 and is anemic. She was advised to follow up with her primary care provider regarding low B12 and anemia. Lee Dangelo verbalized understanding. Labs faxed to primary care providers office. 7. documented in this encounter Plan of Treatment Not on filedocumented as of this encounter Visit Diagnoses Not on filedocumented in this encounter"
--- OUTSIDE RECORDS SUMMARY | ~2020-01-21 | XMS | Encounter Summary ---
Demographics + + + | Address | [address] | | | [place] [address] | + + + | Home Phone | | + + + | Preferred Language | Unknown | + + + | Marital Status | Legally | + + + | Samaritan Affiliation | Unknown | + + + | Race | Unknown | + + + | Ethnic Group | Unknown | + + + Author + + + | Author | [facility] | | | and [place] | + + + | Organization | [facility] | | | [...] Team Providers + +------+ + | Care Rail Technician Name | Role | Phone | [...] + + | 12/07/ | Telephone | [facility] | Leif Kenyon DO | Coordination Of Care | | 2020 | | INFECTIOUS DISEASE | [address] | | | | | [address] | [place] [address] | | | | | [place], [place] | [phone] | | | | | [address] | | | | | | [phone] | | | +--------+ + + + [...] Miscellaneous Notes Telephone Encounter - Kelsey Martínez Mental Retardation Nurse - 12/08/2019 10:40 AM PDTPatient inf ormed. [...]
--- OUTSIDE RECORDS SUMMARY | ~2020-01-21 | XMS | Encounter Summary ---
Demographics + + + | Address | [address] | | | [place] [address] | + + + | Home Phone | | + + + | Preferred Language | Unknown | + + + | Marital Status | Legally | + + + | Restorationism Affiliation | Unknown | + + + | Race | Unknown | + + + | Ethnic Group | Unknown | + + + Author + + + | Author | [facility] | | | and [place] | + + + | Organization | [facility] | | | [...] Team Providers + +------+ + | Care Chemical Applicator Name | Role | Phone | + [...] | hand | [address] | | | | n | numbness | [address] | [place], | | | | | Hand | [place], | [place] [address] | | | | | weakness | [place] [address] | Phone: | | | | | History of | Phone: | [phone] | | | | | diabetes | [phone] | Fax: | | | | | mellitus | Fax: | [phone] | | | | | Procedures | [phone] | | | | | | DOS [...] 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 [address] | [address] | | | | n | al disc | [address] | [place], | | | | | degeneration | [address] | [place] [address] | | | | | , lumbar | [place], | Phone: | | | | | region | [place] | [phone] | | | | | Neuropathy | [address] | Fax: | | | | | | Phone: | [phone] | | | | | | [phone] | | | | | | | Fax: | | | | | | | [phone] | | +--------+--------+ + + + + Encounter Details +--------+---------+ + + + | Date | Type | Department | Care Team | Description | +--------+---------+ + + + | 05/04/ | Office | [facility] | Oc Mooney, | Bilateral hand | | 2015 | Visit | [address]SI[address]RY [address] | MD [address] | numbness (Primary | | | | [address] | [place] | Dx); Hand weakness; | | | | [place] | [address] | History of diabetes | | | | [address] | | mellitus; Brisk deep | | | | [phone] | | tendon reflexes | +--------+---------+ + [...] her hands compared to her feet. Petra Dangelo denies taking blood thinning medications such as [...] Sinus surgery 1998 [facility] Foot surgery Left 2000 Dr. Anguiano Family History: Family History Problem [...] finger abduction bilaterally. 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
--- OUTSIDE RECORDS SUMMARY | ~2020-01-21 | XMS | Encounter Summary ---
Demographics + + + | Address | [address] | | | [place] [address] | + + + | Home Phone [...] Providers + +------+ + | Care Advanced Practice Nurse Psychotherapist Name | Role | Phone | + [...] + + | 11/20/ | Hospital | [facility] | EmyStephany jaramillomoises, | Anemia of chronic | | 2020 - | Encounter | [facility] | [address] | disease; Chronic | | | | [address] | [place] [address] | pain syndrome; CKD | | 11/28/ | | [place], [place] | [phone] | (chronic kidney | | 2020 | | [address] | | disease), stage III | | | | [phone] | Charlene Rao DO | ([facility]); Empyema of | | | | | [address] | pleural space ([facility]); | | | | | [place] [address] | Essential | | | | | [phone] | hypertension, | | | | | | benign; Pneumonia of | | | | | Fredrick Rubin | right lower lobe | | | | | MD Eloise [address] | due to methicillin | | | | | BLVD [place], [place] | resistant | | | | | [address] | Staphylococcus | | | | | | aureus (MRSA) ([facility]); | | | | | Sanaz Vásquez, | Type 2 diabetes | | | | | [address] | mellitus 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 The patient was initially admitted to [facility] on 11/11/2019 due to fever, dyspne [...] of empyema. The patient was transferred to [facility] for further workup. Interventional radio logy was [...] who recommended SNF. Patient was accepted to [facility] swing bed with plan to complete IV ceftaroline until December 08, 2019 . Case was discussed with the accepting physician at [facility]. Discharge Exam and Data: Vital [...] Value Units Date/Time Culture, Body Fluid Sterile [[id number]] Collected: 11/23/19 1055 Order Status: Completed Lab Status: Final result Updated: 11/27/19 0657 Specimen: Body Fluid from Abscess Gram Stain Result NO CELLS OR ORGANISMS SEEN RESULT NO GROWTH 4 DAYS RESULT Testing performed at [facility], [address] [place] [address] Comment: Testing performed at [facility], [facility] [place] [address] Clostridium difficile A and B EIA [[id number]] Order Status: Canceled Lab Status: No result [...] analysis per the clinician's orders. A 12 Cymraes locking pigtail catheter is placed. Signed by: [...] December 08, 2019 Discharge Information: Follow up: [facility] INFECTIOUS DISEASE [address] [facility] [id number] On 12/07/2019 follow up infection/pneumonia Remi Talley MD [address] [address] Schedule an appointment as soon as possible [...] documented in this encounter Discharge Instructions Instructions Charlene Rao DO - 11/22/2019Incidental finding of spiculated nodules: 10 [...] might be di fferent from the original. [facility] Service: Hospitalist Progress Note Pt: Phoenix Dangelo AGE/SEX: 54 y.o. female ROOM: 9101/9101-01 : 1965 PCP: Remi Talley MD ADMIT DATE: 11/21/2019 TODAY'S DATE: 11/28/2019 Hospital Day/Hospital Course: LOS: [address] Rubin "Patient is a 54 year old female with past medical history of HTN, HLD, DM Type 2, COPD and Chronic Pain who was first admitted at [facility] on11/11/19due to dyspnea and fevers.Her labs [...] suggestive of empyema.She was then transferred to [facility] for CT Surgery evaluation. She was seen [...] hours. No results for input(s): PHART, PO2ART, IRB1XWF, P8JISEFW, BEART in the last 168 hours. Recent [...] analysis per the clinician's orders. A 12 Cymraes locking pigtail catheter is placed. Signed by: [...] and managing patient and counseling/coordination. Dictation software, 1spire, used which may contain error for similar sounding words even af ter review. Personal communication requested for any clarification. Portions of this chart may have been copied from previous notes for continuity of care purp ose roctor, Mercedes Navas RPH - 11/28/2019 11:36 AM PDTRenal Dosing [...] this note might be different from the [facility] Service: Infectious Disease Progress Note Hospital Day: [...] planning ongoing with plan for discharge to [facility] swing bed. Scheduled Medications ascorbic acid [...] Psychiatric: Appropriate mood and affect PICC at [facility] DATA Recent Results (from the past [...] analysis per the clinician's orders. A 12 Cymraes locking pigtail catheter is placed. Signed by: [...] e. 4. No pneumothorax. Signed by: Hugh Myers, Marcel Sign Date/Time: 11/27/2019 6:21 AM Physical Examination: [...] Bev Cartwright PA-C Vascular and Interventional Radiology [address] - 11/28/2019 9:37 AM PDT NUTRITION [...] analysis per the clinician's orders. A 12 Cymraes locking pigtail catheter is placed. Signed by: Huhg Leggett Richard Sign Date/Time: 11/23/2019 11:36 AM [...] minimal output, will consider chest tube removal. DALIA KochC Vascular and Interventional Radiology Alana Corona M D - 11/27/2019 10:18 AM PDT [facility] Service: Infectious Disease Progress Note Hospital Day: [...] Psychiatric: Appropriate mood and affect PICC at [facility] DATA Recent Results (from the past [...] Full Code Alana Arshad MD 11/27/2019 Constantin, Sy ed Romario Navas MD - 11/27/2019 8:22 AM PDT Service: Hospitalist Daily Progress Note Phoenix Dangelo 54 y.o. : 1965 SEX: female PCP: Remi Talley MD Hospital Day: LOS: 6 SUBJECTIVE Patient Summary: Patient is a 54 year old female with past medical history of HTN, HLD, DM Type 2, COPD and Chronic Pain who was first admitted at [facility] on 11/11/19 due to dyspnea an [...] empyema . She was then transferred to [facility] for CT Surgery evaluation. She was seen [...] diagnosed with Pneumonia and admit brandyn at [facility] requiring IV antibiotics. She improved but [...] then she will need rehab preferably at [facility] Swing Bed Program for IV antibiotics. [...] in another 1 to 2 days to [facility] Bed in [facility] or when st able and cleared by ID and IR services. Fredrick Rubin MD 11/27/2019 roctor, Nelli Navas RP - 11/26/2019 1:18 PM PDTRenal Dosing Monitoring: [...] accordingly. 11/26/2019 1:14 PM Pharmacist: Mercedes Roberts [facility] Fredrick Killian MD - 11/26/2019 8:29 AM [...] Chronic Pain who was first admitted at [facility] on 11/11/19 due to dyspnea an [...] empyema . She was then transferred to [facility] for CT Surgery evaluation. She was seen [...] diagnosed with Pneumonia and admit brandyn at [facility] requiring IV antibiotics. She improved but [...] PICC line will be placed soon for fdc antibiotics. Anemia of Chronic Disease with Vitamin [...] in another 2 to 3 days to [facility] Bed in [facility] or when st able and improved and cleared by ID and IR services. Fredrick Rubin MD 11/26/2019 aranada, Abi hannah MD - 11/25/2019 2:11 PM PDTFormatting of this note might be different from the [facility] Service: Infectious Disease Progress Note Hospital Day: [...] and vitals reviewed. DATA Recent Labs Lab 11/24/1961911/22/1951711/21/19 193 WBC 11.89* 17.08* -- HGB 8.8* [...] flui d is unchanged. Signed by: Hugh Mancini, Calderon Sign Date/Time: 11/24/2019 7:54 AM PROBLEM LIST [...] plan to Swing bed at [facility] in [place]. ? Wednesday or Wednesday. Sanaz Vásquez MD [...] Labs Lab 11/24/19 0620 11/22/19 0518 11/21/19 1935 WBC 11.89* 17.08* -- HGB 8.8* 9.4* [...] analysis per the clinician's orders. A 12 Cymraes locking pigtail catheter is placed. Signed by: Hugh Leggett Richard Sign Date/Time: 11/23/2019 11:36 AM Physical Examination: [...] might be different from the or iginal. [facility] Service: Infectious Disease Progress Note Hospital Day: [...] SEEN Gram Stain Result Testing performed at [facility], [address] [place] [address] RESULT PENDING POC Glucose Collection Time: 11/23/19 [...] THIS TIME P RESULT Testing performed at [facility], [address] [place] [id number] P Comment: Testing performed at [facility], [address] [place] [address] Resulting Agency [facility] Specimen Collected: 11/23/19 10:55 Last Resulted: [...] might be different from th e original. Service: Hospitalist Daily Progress Note Phoenix Dangelo 54 y.o. : 1965 SEX: female PCP: Remi Talley MD Hospital Day: LOS: 3 SUBJECTIVE Patient Summary: Patient is a 54 year old female with past medical history of HTN, HLD, DM Type 2, COPD and Chronic Pain who was first admitted at [facility] on 11/11/19 due to dyspnea an [...] empyema . She was then transferred to [facility] for CT Surgery evaluation. She was seen [...] SEEN Gram Stain Result Testing performed at [facility], [address] [place] [address] RESULT PENDING POC Glucose Result Value Ref [...] diagnosed with Pneumonia and a dmitted at [facility] requiring IV antibiotics. She improved but [...] another 2 to 3 4 days [facility] or when stable and improved and cleared by ID and IR services. Fredrick Rubin MD 11/24/2019 Shital Carmichael [facility] - 11/23/2019 11:30 PM PDTFormatting of this [...] the following patient-specific PK parameters. Ke = 0.40628 1/hr T1/2 = 21 hours Estimated time [...] therapy as indicated. Thank You, Allyssa Johnson, [facility], 11/23/2019, 11:21 PM Patricia Alcocer RN - 11/23/2019 12:34 PM PDTProvidence Infusion received referral for home EDY. Will invest igate benefits and follow up with CM. Thank you for your referral. Patricia Macedo RN 1300: We are not contracted with this [facility] OR plan, CM notified.Electronically sosa d by Patricia Macedo RN at 11/23/2019 2:37 PM Nancy Hutson, PharmD - 11/23/2019 12:10 PM PDT Vancomycin [...] Chronic Pain who was first admitted at [facility] on 11/11/19 due to dyspnea an [...] empyema . She was then transferred to [facility] for CT Surgery evaluation. Events Overnight: Patient [...] mg 0.5-1 mg Intravenous Q4H PRN Fredrick Romario T Scottie, MD 0.5 mg at 11/23/19 1417 melatonin [...] diagnosed with Pneumonia and a dmitted at [facility] requiring IV antibiotics. She improved but [...] this note might be different from the [facility] Service: Infectious Disease Progress Note Hospital Day: [...] Status: Full Code Alana Arshad MD 11/23/2019 harlene Rao DO - 11/22/2019 7:44 AM PDTFormatting of this note might be different from the haritha robbins [facility] Adult Hospitalist Progress Note Hospital Day: 1 HPI SUMMARY: Mrs. Dangelo is a 54 yo F with PMHx of DM2, chronic pain, COPD who presented to [facility] on 11/11/19 with SOB and fevers. She [...] suggestive of empyema. Patient transferr ed to [facility] for CT Surgery consultation. CT Surgery was [...] socks. Charlene Rao DO 11/22/2019 Michael Valerio [facility] - 11/21/2019 10:55 PM PDT Vancomycin Dosing [...] therapy as indicated. Thank You, MICHAEL SALVADOR RP, 11/21/2019, 10:53 PM Electronically signed by Michael Salvador [facility] at 11/21/2019 10:55 PM PDTAkhil Walden MD - 11/21/2019 6:59 PM PDTFull [...] chest tube placement Assessment and Plan: Phoenix M Pribble is a 54 y.o. female with a loculated R pleural effusion seen on imaging. R equest placed for CT guided chest tube, which will be performed today. Calderon Leggett MD Vascular and Interventional Radiology akelly, Toño workman MD - 11/21/2019 6:36 PM PDTFormatting of this note might be different from the origi nal. [facility] Service: Hospitalist Admission History & Physical Date [...] Patient came as a direct admit from [facility] for right-sided empyema. This patient was admitted to [facility] on November 11, 2019 with chief [...] 22,000. Metabolic parameters were within normal li mits. She was continued on oral doxycycline. She [...] of empyema. So patient was transferred [facility] o[facility] surgery consultation here. Today she received [...] GALLBLADDER SURGERY 1997 [facility] SINUS SURGERY 1998 [facility] Medications Prior to Admission Medication Sig Dispense [...] file Gets together: Not on file Attends yazidi service: Not on file Active member of [...] on file Social History Narrative Lives in [place] with her brother and father, independent with [...] PDTAssociated Order(s): PROVIDER TO PROVIDER C ONSULT [facility] Service: Infectious Diseases Initial Consult Note Date of Admission: 11/21/2019 Reason for Consultation: Advice on antibiotics for right lower lobe MRSA pneumonia, suspect ed empyema Requesting Physician: Dr. Rhonda Blas, Hospitalist History Obtained From: Patient, Chart review and Referring MD CHIEF COMPLAINT: Transferred from [facility] for further care of parapneumonic effusio [...] the past. The patient was admitted at [facility] on 11/11/2019 for shortness of breath [...] 11/16 on p.o. doxycycline [facility]. The patient returned to the emergency room within a few hours of discharge for worsening sy mptoms. Chest x-ray showed right-sided pleural effusion. On readmission, the patient's WBC was 22,000. She was continued on p.o. doxycycline. She was described as having nonproduct fernando cough, episodic dyspnea and having no fevers. WBC ranged from 18-20,000. On 11/20, [facility] t CT scan showed loculated right [...] given 2 g of IV vancomycin at [facility] and then transferred to [facility] for CT surgery evaluation. On presentation at [facility] on 11/20, she was described as having [...] Left 2000 Dr. Anguiano GALLBLADDER SURGERY 1997 [facility] SINUS SURGERY 1998 [facility] Allergies Allergen Reactions Penicillins Shortness Of Breath [...] activity: Never Social History Narrative Lives in [place] with her brother and father, independent with [...] follow with you. Alana Arshad MD 11/22/2019 Francesco Justice PA - 11/22/2019 7:11 AM PDTAssociated Order(s): PROVIDER TO PROVIDER CONSULTFormatting of t his note might be different from the original. [facility] Cardiothoracic Surgery CONSULTATION NOTE Pt. Name/Age/: Phoenix [...] chronic pain syndrome. Patient was admitted to [facility] on November 11, 2019 wit h [...] History: Procedure Laterality Date FOOT SURGERY Left 1999 Dr. Anguiano GALLBLADDER SURGERY 1997 [facility] SINUS SURGERY 1998 [facility] Allergies: Allergies Allergen Reactions Penicillins Shortness Of [...] María Elena Blas MD 650 mg at 11/22/19 0527 albuterol [...] 15 mg/kg (Adjusted) Intravenous Q12H Nita Salvador, [facility] vancomycin per pharmacy Other Pharmacy Consult María [...] file Gets together: Not on file Attends yazidi service: Not on file Active member of [...] on file Social History Narrative Lives in [place] with her brother and father, independent with [...] signed by: PETER Britt 11/22/2019 7:12 AM [facility] Associated attestation - Akhil Walden MD [...] to discharge to [facility] bed. To leave PICC line in for continued antibiotic treatment. Report called to nurse Limon. All questions answered. D/C per taxi at 1400. E lectronically signed by Bev Rico RN at 11/29/2019 2:01 PM PDTPlan of Jef Celestin MSW - 11/29/2019 1:02 PM PDTCare Management SNF/LTACH Final Discharge Plan Readmission Risk: Medium Discharge Plan Planned Disposition: Swing bed Planned Destination: [facility] Swing [facility] [place] of Choice: YES Facility Information: Address: [address] [place] [address] Community Care Provider: Dr. Romero Patient/Family Notified: yes Transportation will be provided by: taxi, other (comment)([employer] - [phone]) Transportation Date/Time: taxi, other (comment)([employer] - [phone]) 1400 Ride Contact: Name: [facility] [employer] [phone] Phone: [employer] [phone] Confirmed 3 Qualifying Midnights: yes SNF Authorization Received: yes Benefits and Co-Pays: none at this time - already obtained [employer] Authorization PASRR Completed: yes Electronically signed: KOREY CASTRO 11/29/2019 1:02 PM lan of Jef Green MSW - 11/29/2019 8:34 AM PDTDISCHARGE PLANNING ACCOUNT DEVELOPMENT SPECIALIST p/c msg with Anthony Davison, Admissions at [facility] ([phone] ph, fax) regarding status of insurance authorization from [facility] Medic aid, with hopes of obtaining it this morning to discharge today. ACCOUNT DEVELOPMENT SPECIALIST p/c msg with Debra Combs, Admissions at [facility] ([phone] ph). ACCOUNT DEVELOPMENT SPECIALIST p/c with Debra Combs, Admissions at [facility] ([phone] ph) states their census went high last night and unable to accept this Pt today. ACCOUNT DEVELOPMENT SPECIALIST met with Pt regarding this update about [place] and Pt states her preference is now (a) [facility] Swing Bed. and (b) [facility] [place]. ACCOUNT DEVELOPMENT SPECIALIST p/c left msg with Rhondi, admissions at [facility] [place] regarding ref ashwini, ACCOUNT DEVELOPMENT SPECIALIST p/c with Taisha Michael, [facility] Swing Bed Program, states will consider Pt , reviewing referral. States they have open beds, and we already have insurance auth from [facility] [employer] [facility] [phone] ph. ACCOUNT DEVELOPMENT SPECIALIST p/c with Rhondi with [facility], states they already have insurance auth f rom [facility] [phone] ph, DCP: Pending placement at [facility] Swing Bed Program. If Pt goes to [facility] Swing Bed, Pt will need transportation from [employer] [phone], they often ask for 24 hrs Avoidable days documented for delay with insurance authorization for [facility]. KOREY CASTRO [phone] cell lan of Care - Jonathon Lu, PT - 11/29/2019 7:32 AM PDT Physical Therapy Treatment Note Recommended discharge disposition: group home facility Post discharge physical therapy recommendation: will [...] Device: none Supine to Sit, Level of [place]: modified independent Safety Issues: decreased use of legs for bridging/pushing Transfers Additional Documentation: sit to/from stand Sit-Stand, Level of [place]: contact guard assist Stand-Sit, Level of [place]: contact guard assist [id number], Assistive Device: 4 wheeled walker (4WW) Impairments: impaired balance Gait Level of [place]: contact guard assist Assistive Device: 4 wheeled walker (4WW) Distance (feet): 50 x 2 Impairments: impaired balance Goals Reflects last filed data and may be from multiple contributors. Gait Goal Most Recent Value LTG Status not met, continued at 11/29/2019 0732 LTG [place] Level modified independent at 11/29/2019 0732 LTG Assistive Device cane (straight, single point) at 11/29/2019 0732 LTG Distance (feet) 150 at 11/29/2019 0732 Stair Goal Most Recent Value LTG Status not met, continued at 11/29/2019 0732 LTG [place] Level stand by assist at 11/29/2019 0732 [...] Physical Therapy Treatment Note Recommended discharge disposition: group home facility Post discharge physical therapy recommendation: home [...] fatigues quickly. Encouraged pt. to ambulate with waitstaff multiple times throughout the day. Precautions Precautions/Limitations: falls Transfers Additional Documentation: sit to/from stand Sit-Stand, Level of [place]: contact guard assist Stand-Sit, Level of [place]: contact guard assist [id number], Assistive Device: 4 wheeled walker (4WW) Impairments: impaired balance Gait Level of [place]: contact guard assist Assistive Device: 4 wheeled walker (4WW) Distance (feet): 40 x 2 Additional Documentation: safety, impairments Impairments: impaired balance Goals Reflects last filed data and may be from multiple contributors. Gait Goal Most Recent Value LTG [place] Level modified independent at 11/22/2019 1045 LTG Assistive Device cane (straight, single point) at 11/22/2019 1045 LTG Distance (feet) 150 at 11/22/2019 1045 Stair Goal Most Recent Value LTG [place] Level stand by assist at 11/22/2019 1045 [...] Rodrigez MD Transferring Medical Center: Receiving Facility: [facility] Provider after Transfer: PCP NURSE ASSESSMENT [...] Follow-Up Appointments House provider in 3-5 days [facility] INFECTIOUS DISEASE [address] [facility] [id number] On 12/07/2019 follow up infection/pneumonia Remi Talley MD [address] [phone] Schedule an appointment as soon as possible for a visit in 1 week hospital follow up Certification I certify that the following level of post-hospital care is medically necessary on a contin uing basis for any of the conditions for which she received care during this hospitalization : Skilled (Shelter Facility with 24-hour skilled RN service) Physician [...] MSW - 11/28/2019 11:29 AM PDTDISCHARGE PLANNING ACCOUNT DEVELOPMENT SPECIALIST p/c with Anthony Saman, Admissions at [facility] ([phone] ph, [phone] fax) states they want to accept this patient back to their hospital, states they a re awaiting for insurance authorization from [facility] Medicaid, states this usuall y takes about 24 hours, states this has been already started. DCP: Pending at [facility] [place] - Awaiting for insurance authoriza tion Avoidable days documented for delay with insurance authorization for [facility] Med icaid. Anticipated discharge on 11/28 KOREY CASTRO [phone] cell lan of Regla - Renetta Giang [...] MSW - 11/27/2019 3:26 PM PDTDISCHARGE PLANNING ACCOUNT DEVELOPMENT SPECIALIST p/c with Debra Combs, jose at [facility], states their physician Leif Richards DO is currently reviewing the incomplete notes from Gasper Erickson. [facility] at [phone] will provide transportation. DCP: Pending at [facility] KOREY CASTRO [phone] cell lan of Renetta Junior RN - [...] getting up into chair as often as jean le, pt reported that pain was too severe to get into chair. Chart check complete. Adriana Mcnulty RN lan of [facility] - Sakshi Quiñonez cia, RN - 11/26/2019 [...] call light appropriately. A M PDTPlan of [facility] - Adriana Mcnulty RN - 11/25/2019 5:39 [...] audid per orders. Chart check complete. Adriana Mcnulty RN lan of Care - Her keyonGume RN - 11/24/2019 8:15 PM PDT Problem: [...] ing Next Steps: CM sent referral to [facility] Community Support Services Current Outpt/Agency/Support Groups: none [...] home. PT evaluation recommend s Home health, [facility] referral sent and following for discharge If needed. Pt currently on I VAB. Per , Pt IVAB to change to Ceftaroline, for a duration of 2-3 weeks. Pt's in surance not covered by [facility] or [facility]. CM sent referral to [facility] for placement, will need to follow up with updated ID notes from today 0. Likely no other CM needs from Case Management at this time. CM will continue to follow fo r discharge planning, pending clinical course. Electronically signed: Tala Shetty RN 11/24/2019 11:55 AM lan of Care - Carl Yina A, TAX SPECIALIST - 11/24/2019 10:05 AM PDT Physical Therapy [...] bed rails Supine to Sit, Level of [place]: modified independent Sit to Supine, Level of [place]: modified independent Transfers Additional Documentation: sit to/from stand Sit-Stand, Level of [place]: stand by assist Stand-Sit, Level of [place]: stand by assist [id number]-Tybfh-Pqe, Assistive Device: 2 wheeled walker (FWW) Impairments: impaired balance Gait Level of [place]: contact guard assist Assistive Device: 2 wheeled walker (FWW) Distance (feet): 2x40 Additional Documentation: safety, impairments Impairments: impaired balance Balance Sitting Balance: Static: good balance Sitting Balance: Dynamic: good balance Standing Balance: Static: good balance Standing Balance: Dynamic: fair balance Goals Reflects last filed data and may be from multiple contributors. Gait Goal Most Recent Value LTG [place] Level modified independent at 11/22/2019 1045 LTG Assistive Device cane (straight, single point) at 11/22/2019 1045 LTG Distance (feet) 150 at 11/22/2019 1045 Stair Goal Most Recent Value LTG [place] Level stand by assist at 11/22/2019 1045 LTG Assistive Device 1 rail at 11/22/2019 1045 LTG Number of Stairs 2 at 11/22/2019 1045 PT Time Calculation Individual Start Time: 1005 Individual Stop Time: 1044 Individual Total Time: 39 PT Total Treatment Time: 39 lan of Regla - Koko Mejia RN - 11/23/2019 3:08 PM PDTFormatting of this note might be different from noe zavala. Problem: Adult Inpatient Plan of Care Goal: [...] 91 % Max: 97 % lan of Fr lela Briggs PT - 11/23/2019 12:13 PM PDTMISSED THERAPY VISIT Physical Therapy attempted to see the following patient today: Phoenix Dangelo Missed Visit (patient declined) Pt underwent procedure this AM and now with chest tube on her R side. Pt declined PT today as her pain was beginning to increase at the time. Pt requested to have PT return the follow ing day. lan of [facility] Demetris, Tala Jacobs RN - 11/23/2019 12:02 [...] Pt currently on IVAB-Va ncomycin and Levofloxacin. [facility] following for potential for home IVABl. [facility] to check insurance coverage for services and to contact this CM. PT recommends home with assist , and Home Health. CM sent referral to [facility] and updated on potential discharge date. [...] loculated pleural effusion Post OP Diagnosis: Same Power Plant Supervisor: Calderon Leggett MD MD Anesthesia Type: Mod [...] call light within reach, cane at bedside, superintendent laundry socks on, n ight light on. lan [...] safe to return home with assist and [facility]. Living Environment Lives With: father, sibling(s) [...] Device: none Supine to Sit, Level of [place]: independent Sit to Supine, Level of [place]: independent Transfers Additional Documentation: sit to/from stand Sit-Stand, Level of [place]: stand by assist Stand-Sit, Level of [place]: stand by assist Ofd-Lbkgh-Nza, Assistive Device: none, cane (straight, single point) Impairments: impaired balance Gait Gait Comments: With no AD, pt with increased lateral sway and near loss of balance with zackary f-recovery. SPC trialed with giat training on proper use. Level of [place]: stand by assist Assistive Device: cane (straight, [...] contributors. Gait Goal Most Recent Value LTG [place] Level modified independent at 11/22/2019 1045 LTG Assistive Device cane (straight, single point) at 11/22/2019 1045 LTG Distance (feet) 150 at 11/22/2019 1045 Stair Goal Most Recent Value LTG [place] Level stand by assist at 11/22/2019 1045 [...] Treatment creams applied. lan of Care - [facility] priscilla, KOREY Pang - 11/22/2019 9:19 AM PDTCare Management Initial [...] Pharmacy/Medication Needs: other (see comments)([facility] - [facility]) Transportation Needs: other (see comments)(Will need assistance [...] Testing | 65 - 99 mg/dL | [facility] | | | POC | performed at [facility];[address] | | LABORATORY | | | | [facility], [place] | | | | | | [address] | | | | + + + + + + + + | Specimen | + + | | + + + + + + + | Performing | Address | City/State/Zipcode | Phone Number | | Organization | | | | + + + + + | [facility] | [address] | [place] [address] | [phone] | + + + + + POC Glucose (11/29/2019 8:01 AM PDT) + + + + + + | Component | Value | Ref Range | Performed | Pathologist | | | | | At | Signature | + + + + + + | Glucose, | 126 (H)Comment: Testing | 65 - 99 mg/dL | [facility] | | | POC | performed at [facility];[address] | | LABORATORY | | | | [address];[place], [place] | | | | | | [address] | | | | + + + + + + + + | Specimen | + + | | + + + + + + + | Performing | Address | City/State/Zipcode | Phone Number | | Organization | | | | + + + + + | [facility] | [address] | [place] [address] | [phone] | + + + + + Comprehensive [...] | | | | | performed at [facility] | | | | | | [address] [facility];[place], [place] | | | | | | [address] | | | | + + + + + + + + | Specimen | + + | Blood | + + + + + + + | Performing | Address | City/State/Zipcode | Phone Number | | Organization | | | | + + + + + | [facility] | [address] | [place] [address] | [phone] | + + + + + POC Glucose (11/28/2019 9:17 PM PDT) + + + + + + | Component | Value | Ref Range | Performed | Pathologist | | | | | At | Signature | + + + + + + | Glucose, | 144 (H)Comment: Testing | 65 - 99 mg/dL | [facility] | | | POC | performed at [facility];[address] | | LABORATORY | | | | [address];[place] | | | | | | [address] | | | | + + + + + + + + | Specimen | + + | | + + + + + + + | Performing | Address | City/State/Zipcode | Phone Number | | Organization | | | | + + + + + | [facility] | [address] | [place] [address] | [phone] | + + + + + POC Glucose (11/28/2019 5:04 PM PDT) + + + + + + | Component | Value | Ref Range | Performed | Pathologist | | | | | At | Signature | + + + + + + | Glucose, | 92Comment: Testing | 65 - 99 mg/dL | [facility] | | | POC | performed at [facility];[address] | | LABORATORY | | | | [address];[place] | | | | | | [address] | | | | + + + + + + + + | Specimen | + + | | + + + + + + + | Performing | Address | City/State/Zipcode | Phone Number | | Organization | | | | + + + + + | [facility] | [address] | [place] [address] | [phone] | + + + + + POC Glucose (11/28/2019 11:55 AM PDT) + + + + + + | Component | Value | Ref Range | Performed | Pathologist | | | | | At | Signature | + + + + + + | Glucose, | 190 (H)Comment: Testing | 65 - 99 mg/dL | [facility] | | | POC | performed at [facility];[address] | | LABORATORY | | | | [address];[place] | | | | | | [address] | | | | + + + + + + + + | Specimen | + + | | + + + + + + + | Performing | Address | City/State/Zipcode | Phone Number | | Organization | | | | + + + + + | [facility] | [address] | [place] [address] | [phone] | + + + + + XR [...] Testing | 65 - 99 mg/dL | [facility] | | | POC | performed at [facility];[address] | | LABORATORY | | | | [address];[place] | | | | | | [address] | | | | + + + + + + + + | Specimen | + + | | + + + + + + + | Performing | Address | City/State/Zipcode | Phone Number | | Organization | | | | + + + + + | [facility] | [address] | [place] [address] | [phone] | + + + + + XR [...] catheter. | | | Signed by: Hugh Traore, Mati Choe Date/Time: 11/28/2019 7:59 | | | AM [...] | | | | | | MDRD IDIA traceable | | | | | | equation.Testing | | | | | | performed at [facility];[address] | | | | | | [facility];[place], [place] | | | | | | [address] | | | | + + + + + + + + | Specimen | + + | Blood | + + + + + + + | Performing | Address | City/State/Zipcode | Phone Number | | Organization | | | | + + + + + | [facility] | [address] | [place] [address] | [phone] | + + + + + CBC [...] LABORATORY | | | | performed at [facility];[address] | | | | | | [address];[place], [place] | | | | | | [address] | | | | | | | | | | + + + + + + + + | Specimen | + + | Blood | + + + + + + + | Performing | Address | City/State/Zipcode | Phone Number | | Organization | | | | + + + + + | [facility] | [address] | [place] [address] | [phone] | + + + + + POC [...] | | | POC | performed at [facility];[address] | | LABORATORY | | | | [address];[place], [place] | | | | | | [address] | | | | + + + + + + + + | Specimen | + + | | + + + + + + + | Performing | Address | City/State/Zipcode | Phone Number | | Organization | | | | + + + + + | [facility] | [address] [facility] | [place] [address] | [phone] | + + + + + POC [...] | | | POC | performed at [facility];[address] | | LABORATORY | | | | [address];[place], [place] | | | | | | [address] | | | | + + + + + + + + | Specimen | + + | | + + + + + + + | Performing | Address | City/State/Zipcode | Phone Number | | Organization | | | | + + + + + | [facility] | [address] | [place] [address] | [phone] | + + + + + POC Glucose (11/27/2019 12:22 PM PDT) + + + + + + | Component | Value | Ref Range | Performed | Pathologist | | | | | At | Signature | + + + + + + | Glucose, | 150 (H)Comment: Testing | 65 - 99 mg/dL | [facility] | | | POC | performed at [facility];[address] | | LABORATORY | | | | [address];[place] | | | | | | [address] | | | | + + + + + + + + | Specimen | + + | | + + + + + + + | Performing | Address | City/State/Zipcode | Phone Number | | Organization | | | | + + + + + | [facility] | [address] | [place] [address] | [phone] | + + + + + Comprehensive [...] 32 (L)Comment: GFR <60: | >60 | [facility] | | | GFR | CHRONIC [...] | | | | | | MDRD IDIA traceable | | | | | | equation.Testing | | | | | | performed at [facility], [address] | | | | | | [facility], | | | | | | [place] [address] | | | | + + + + + + + + | Specimen | + + | Blood | + + + + + + + | Performing | Address | City/State/Zipcode | Phone Number | | Organization | | | | + + + + + | [facility] | [address] | [place] [address] | [phone] | + + + + + POC [...] | | | POC | performed at [facility];[address] | | LABORATORY | | | | [address];[place] | | | | | | [address] | | | | + + + + + + + + | Specimen | + + | | + + + + + + + | Performing | Address | City/State/Zipcode | Phone Number | | Organization | | | | + + + + + | [facility] | [address] | [place] [address] | [phone] | + + + + + XR Chest 1 Xuan (11/27/2019 5:50 AM PDT) + + | [...] LABORATORY | | | | performed at [facility], [address] | | | | | | [address], | | | | | | [place] [address] | | | | | | | | | | + + + + + + + + | Specimen | + + | Blood | + + + + + + + | Performing | Address | City/State/Zipcode | Phone Number | | Organization | | | | + + + + + | [facility] | [address] | [place] [address] | [phone] | + + + + + POC [...] | | | POC | performed at [facility];[address] | | LABORATORY | | | | [address];[place], [place] | | | | | | [address] | | | | + + + + + + + + | Specimen | + + | | + + + + + + + | Performing | Address | City/State/Zipcode | Phone Number | | Organization | | | | + + + + + | [facility] | [address] | [place] [address] | [phone] | + + + + + Lactic Acid (11/26/2019 8:22 PM PDT) + + + + + + | Component | Value | Ref Range | Performed | Pathologist | | | | | At | Signature | + + + + + + | Lactate, | 1.3Comment: Testing | 0.4 - 2.0 | [facility] | | | Serum | performed at [facility];[address] | mmol/L | LABORATORY | | | | [address];[place], [place] | | | | | | [address] | | | | + + + + + + + + | Specimen | + + | Blood | + + + + + + + | Performing | Address | City/State/Zipcode | Phone Number | | Organization | | | | + + + + + | [facility] | [address] | [place] [address] | [phone] | + + + + + POC [...] | | | POC | performed at [facility];[address] | | LABORATORY | | | | [address];[place] | | | | | | [address] | | | | + + + + + + + + | Specimen | + + | | + + + + + + + | Performing | Address | City/State/Zipcode | Phone Number | | Organization | | | | + + + + + | [facility] | [address] | [place] [address] | [phone] | + + + + + POC Glucose (11/26/2019 5:14 PM PDT) + + + + + + | Component | Value | Ref Range | Performed | Pathologist | | | | | At | Signature | + + + + + + | Glucose, | 173 (H)Comment: Testing | 65 - 99 mg/dL | [facility] | | | POC | performed at [facility];[address] | | LABORATORY | | | | [address];[place] | | | | | | [address] | | | | + + + + + + + + | Specimen | + + | | + + + + + + + | Performing | Address | City/State/Zipcode | Phone Number | | Organization | | | | + + + + + | [facility] | [address] | [place] [address] | [phone] | + + + + + POC Glucose (11/26/2019 12:49 PM PDT) + + + + + + | Component | Value | Ref Range | Performed | Pathologist | | | | | At | Signature | + + + + + + | Glucose, | 162 (H)Comment: Testing | 65 - 99 mg/dL | [facility] | | | POC | performed at [facility];[address] | | LABORATORY | | | | [address];[place], [place] | | | | | | [address] | | | | + + + + + + + + | Specimen | + + | | + + + + + + + | Performing | Address | City/State/Zipcode | Phone Number | | Organization | | | | + + + + + | [facility] | [address] | [place] [address] | [phone] | + + + + + CBC [...] | | | | | | at [facility], [address] | | | | | | [facility], | | | | | | [place] [address] | | | | | |Testing performed at [facility], [address] [place] [address] | | | | | | | | | | + + +---- + + + + + | Specimen | + + | Blood | + + + + + + + | Performing | Address | City/State/Zipcode | Phone Number | | Organization | | | | + + + + + | [facility] | [address] | [place] [address] | [phone] | + + + + + POC Glucose (11/26/2019 7:36 AM PDT) + + + + + + | Component | Value | Ref Range | Performed | Pathologist | | | | | At | Signature | + + + + + + | Glucose, | 191 (H)Comment: Testing | 65 - 99 mg/dL | [facility] | | | POC | performed at [facility];[address] | | LABORATORY | | | | [address];[place] | | | | | | [address] | | | | + + + + + + + + | Specimen | + + | | + + + + + + + | Performing | Address | City/State/Zipcode | Phone Number | | Organization | | | | + + + + + | [facility] | [address] | [place] [address] | [phone] | + + + + + Basic [...] | | | | | performed at [facility], [address] | | | | | | [facility], | | | | | | [place] [address] | | | | + + + + + + + + | Specimen | + + | Blood | + + + + + + + | Performing | Address | City/State/Zipcode | Phone Number | | Organization | | | | + + + + + | [facility] | [address] | [place] [address] | [phone] | + + + + + DIAGNOSTIC [...] | | | POC | performed at [facility];[address] | | LABORATORY | | | | [address];[place] | | | | | | [address] | | | | + + + + + + + + | Specimen | + + | | + + + + + + + | Performing | Address | City/State/Zipcode | Phone Number | | Organization | | | | + + + + + | [facility] | [address] | [place] [address] | [phone] | + + + + + POC Glucose (11/25/2019 8:35 PM PDT) + + + + + + | Component | Value | Ref Range | Performed | Pathologist | | | | | At | Signature | + + + + + + | Glucose, | 199 (H)Comment: Testing | 65 - 99 mg/dL | [facility] | | | POC | performed at [facility];[address] | | LABORATORY | | | | [address];[place] | | | | | | [address] | | | | + + + + + + + + | Specimen | + + | | + + + + + + + | Performing | Address | City/State/Zipcode | Phone Number | | Organization | | | | + + + + + | [facility] | [address] [facility] | [place] [address] | [phone] | + + + + + POC Glucose (11/25/2019 5:08 PM PDT) + + + + + + | Component | Value | Ref Range | Performed | Pathologist | | | | | At | Signature | + + + + + + | Glucose, | 177 (H)Comment: Testing | 65 - 99 mg/dL | [facility] | | | POC | performed at [facility];[address] | | LABORATORY | | | | [address];[place] | | | | | | [address] | | | | + + + + + + + + | Specimen | + + | | + + + + + + + | Performing | Address | City/State/Zipcode | Phone Number | | Organization | | | | + + + + + | [facility] | [address] | [place] [address] | [phone] | + + + + + POC Glucose (11/25/2019 12:18 PM PDT) + + + + + + | Component | Value | Ref Range | Performed | Pathologist | | | | | At | Signature | + + + + + + | Glucose, | 190 (H)Comment: Testing | 65 - 99 mg/dL | [facility] | | | POC | performed at [facility];[address] | | LABORATORY | | | | [address];[place], [place] | | | | | | [address] | | | | + + + + + + + + | Specimen | + + | | + + + + + + + | Performing | Address | City/State/Zipcode | Phone Number | | Organization | | | | + + + + + | [facility] | [address] | [place] [address] | [phone] | + + + + + POC [...] | | | POC | performed at [facility];[address] | | LABORATORY | | | | [address];[place] | | | | | | [address] | | | | + + + + + + + + | Specimen | + + | | + + + + + + + | Performing | Address | City/State/Zipcode | Phone Number | | Organization | | | | + + + + + | [facility] | [address] | [place] [address] | [phone] | + + + + + POC Glucose (11/25/2019 7:50 AM PDT) + + + + + + | Component | Value | Ref Range | Performed | Pathologist | | | | | At | Signature | + + + + + + | Glucose, | 128 (H)Comment: Testing | 65 - 99 mg/dL | [facility] | | | POC | performed at [facility];[address] | | LABORATORY | | | | [address];[place] | | | | | | [address] | | | | + + + + + + + + | Specimen | + + | | + + + + + + + | Performing | Address | City/State/Zipcode | Phone Number | | Organization | | | | + + + + + | [facility] | [address] | [place] [address] | [phone] | + + + + + Basic [...] | 8.6 | 8.5 - 10.5 | [facility] | | | | | mg/dL | LABORATORY | | + + + + + + | Estimated | 39 (L)Comment: GFR <60: | >60 | [facility] | | | GFR | CHRONIC [...] | | | | | | MDRD IDIA traceable | | | | | | equation.Testing | | | | | | performed at [facility], [address] | | | | | | [facility], | | | | | | [place] [address] | | | | + + + + + + + + | Specimen | + + | Blood | + + + + + + + | Performing | Address | City/State/Zipcode | Phone Number | | Organization | | | | + + + + + | [facility] | [address] | [place] [address] | [phone] | + + + + + CBC [...] LABORATORY | | | | performed at [facility], [address] | | | | | | [facility], | | | | | | [place] [address] | | | | | |Testing performed at [facility], [address] [facility], [place] [address] | | | | | | | | | | + + +---- + + + + + | Specimen | + + | Blood | + + + + + + + | Performing | Address | City/State/Zipcode | Phone Number | | Organization | | | | + + + + + | [facility] | [address] | [place] [address] | [phone] | + + + + + POC [...] | | | POC | performed at [facility];[address] | | LABORATORY | | | | [address];[place] | | | | | | [address] | | | | + + + + + + + + | Specimen | + + | | + + + + + + + | Performing | Address | City/State/Zipcode | Phone Number | | Organization | | | | + + + + + | [facility] | [address] | [place] [address] | [phone] | + + + + + POC Glucose (11/24/2019 5:09 PM PDT) + + + + + + | Component | Value | Ref Range | Performed | Pathologist | | | | | At | Signature | + + + + + + | Glucose, | 121 (H)Comment: Testing | 65 - 99 mg/dL | [facility] | | | POC | performed at [facility];[address] | | LABORATORY | | | | [address];[place], [place] | | | | | | [address] | | | | + + + + + + + + | Specimen | + + | | + + + + + + + | Performing | Address | City/State/Zipcode | Phone Number | | Organization | | | | + + + + + | [facility] | [address] | [place] [address] | [phone] | + + + + + POC [...] | | | POC | performed at [facility];[address] | | LABORATORY | | | | [address] [facility];[place], [place] | | | | | | [address] | | | | + + + + + + + + | Specimen | + + | | + + + + + + + | Performing | Address | City/State/Zipcode | Phone Number | | Organization | | | | + + + + + | [facility] | [address] | [place] [address] | [phone] | + + + + + POC Glucose (11/24/2019 8:09 AM PDT) + + + + + + | Component | Value | Ref Range | Performed | Pathologist | | | | | At | Signature | + + + + + + | Glucose, | 162 (H)Comment: Testing | 65 - 99 mg/dL | [facility] | | | POC | performed at [facility];[address] | | LABORATORY | | | | [address];[place] | | | | | | [address] | | | | + + + + + + + + | Specimen | + + | | + + + + + + + | Performing | Address | City/State/Zipcode | Phone Number | | Organization | | | | + + + + + | [facility] | [address] | [place] [address] | [phone] | + + + + + XR Chest AP Portable (11/24/2019 7:47 AM PDT) + + | Specimen | + + | | + + + + + | Impressions | Performed At | + + + | Stable positioning of right-sided pigtail catheter. The amount of | [facility] | | right-sided pleural fluid is unchanged. Signed by: Addis, | | | Calderon Reese Date/Time: 11/24/2019 [...] | | | | | performed at [facility], [address] | | | | | [facility], | | | | | | [place] [address] | | | | + + + + + + + + | Specimen | + + | | + + + + + + + | Performing | Address | City/State/Zipcode | Phone Number | | Organization | | | | + + + + + | [facility] | [address] | [place] [address] | [phone] | + + + + + CBC [...] | | | | | | at [facility], [address] | | | | | | [place], | | | | | | [place] [address] | | | | | |Testing performed at [facility], [address] [facility], [place] [address] | | | | | | | | | | + + +---- + + + + + | Specimen | + + | Blood | + + + + + + + | Performing | Address | City/State/Zipcode | Phone Number | | Organization | | | | + + + + + | [facility] | [address] [facility] | [place] [address] | [phone] | + + + + + Vancomycin, [...] | | | | | performed at [facility] | | | | | | [facility];[place], [place] | | | | | | [address] | | | | + + + + + + + + | Specimen | + + | Blood | + + + + + + + | Performing | Address | City/State/Zipcode | Phone Number | | Organization | | | | + + + + + | [facility] | [address] | [place] [address] | [phone] | + + + + + POC Glucose (11/23/2019 8:39 PM PDT) + + + + + + | Component | Value | Ref Range | Performed | Pathologist | | | | | At | Signature | + + + + + + | Glucose, | 195 (H)Comment: Testing | 65 - 99 mg/dL | [facility] | | | POC | performed at [facility];[address] | | LABORATORY | | | | [address];[place] | | | | | | [address] | | | | + + + + + + + + | Specimen | + + | | + + + + + + + | Performing | Address | City/State/Zipcode | Phone Number | | Organization | | | | + + + + + | [facility] | [address] | [place] [address] | [phone] | + + + + + POC [...] | | | POC | performed at [facility];[address] | | LABORATORY | | | | [address];[place], [place] | | | | | | [address] | | | | + + + + + + + + | Specimen | + + | | + + + + + + + | Performing | Address | City/State/Zipcode | Phone Number | | Organization | | | | + + + + + | [facility] | [address] | [place] [address] | [phone] | + + + + + XR [...] | | | POC | performed at [facility];[address] | | LABORATORY | | | | [address];[place] | | | | | | [address] | | | | + + + + + + + + | Specimen | + + | | + + + + + + + | Performing | Address | City/State/Zipcode | Phone Number | | Organization | | | | + + + + + | [facility] | [address] | [place] [address] | [phone] | + + + + + Culture, [...] RESULT | Testing performed at | | [facility] | | | | [facility], [address] [facility] | | LABORATORY | | | | [place] | | | | | | [address]Wzsahca: Testing | | | | | | performed at [facility], [address] | | | | | | [facility] [place], | | | | | | [place] [address] | | | | + + + + + + + + | Specimen | + + | Body Fluid - Pus | | specimen (specimen) | + + + + + + + | Performing | Address | City/State/Zipcode | Phone Number | | Organization | | | | + + + + + | [facility] | [address] | [place] [address] | [phone] | + + + + + Medical [...] | | LABORATORY:Technical preparation was performed by [facility], | | | [address] [place] [address] (Sugar Chipper Machine Operator: | | | Sebas Tolliver D.O.; CLIA#: [id number]).Professional interpretation | | | [facility] | | | [place] [address] (Sugar Chipper Machine Operator: Leif | | | Hugh Layne; CLIA#: [id number]).6 Diagnostician: Hector Bryant | | | CT [...] | | |Technical preparation was performed by [facility], [address] [place] [address] (Sugar Chipper Machine Operator: Sebas Tolliver D.O.; CLIA#: [id number]). | | |Professional interpretation [facility], [address] (Sugar Chipper Machine Operator: Leif Layne M.D.; CLIA#: [id number]).6 | | | | | |Diagnostician: Hector Bryant CT (ASCP) | | |Retail Client Manager | | |Diagnostician: Leif Layne MD [...] | | | clinician's orders. A 12 Cymraes locking pigtail catheter is placed. | | [...] the | | clinician's orders. A 12 Cymraes locking pigtail catheter is placed. | | | | | | | | Signed by: Hugh Leggett, Calderon | | Sign Date/Time: 11/23/2019 11:36 AM [...] | | | | | performed at [facility] | | | | | | [address];[place], [place] | | | | | | [address] | | | | + + + + + + + + | Specimen | + + | Blood | + + + + + + + | Performing | Address | City/State/Zipcode | Phone Number | | Organization | | | | + + + + + | [facility] | [address] | [place] [address] | [phone] | + + + + + POC [...] | | | POC | performed at [facility];[address] | | LABORATORY | | | | [address];[place], [place] | | | | | | [address] | | | | + + + + + + + + | Specimen | + + | | + + + + + + + | Performing | Address | City/State/Zipcode | Phone Number | | Organization | | | | + + + + + | [facility] | [address] | [place] [address] | [phone] | + + + + + POC Glucose (11/22/2019 8:58 PM PDT) + + + + + + | Component | Value | Ref Range | Performed | Pathologist | | | | | At | Signature | + + + + + + | Glucose, | 174 (H)Comment: Testing | 65 - 99 mg/dL | [facility] | | | POC | performed at [facility];[address] | | LABORATORY | | | | [address];[place] | | | | | | [address] | | | | + + + + + + + + | Specimen | + + | | + + + + + + + | Performing | Address | City/State/Zipcode | Phone Number | | Organization | | | | + + + + + | [facility] | [address] | [place] [address] | [phone] | + + + + + POC Glucose (11/22/2019 4:13 PM PDT) + + + + + + | Component | Value | Ref Range | Performed | Pathologist | | | | | At | Signature | + + + + + + | Glucose, | 94Comment: Testing | 65 - 99 mg/dL | [facility] | | | POC | performed at [facility];[address] | | LABORATORY | | | | [address];[place], [place] | | | | | | [address] | | | | + + + + + + + + | Specimen | + + | | + + + + + + + | Performing | Address | City/State/Zipcode | Phone Number | | Organization | | | | + + + + + | [facility] | [address] | [place] [address] | [phone] | + + + + + POC [...] | | | POC | performed at [facility];[address] | | LABORATORY | | | | [address];[place] | | | | | | [address] | | | | + + + + + + + + | Specimen | + + | | + + + + + + + | Performing | Address | City/State/Zipcode | Phone Number | | Organization | | | | + + + + + | [facility] | [address] [facility] [facility] | [place] [address] | [phone] | + + + + + POC Glucose (11/22/2019 9:28 AM PDT) + + + + + + | Component | Value | Ref Range | Performed | Pathologist | | | | | At | Signature | + + + + + + | Glucose, | 92Comment: Testing | 65 - 99 mg/dL | [facility] | | | POC | performed at [facility];[address] | | LABORATORY | | | | [address];[place] | | | | | | [address] | | | | + + + + + + + + | Specimen | + + | | + + + + + + + | Performing | Address | City/State/Zipcode | Phone Number | | Organization | | | | + + + + + | [facility] | [address] | [place] [address] | [phone] | + + + + + Magnesium (11/22/2019 5:18 AM PDT) + + + + + + | Component | Value | Ref Range | Performed | Pathologist | | | | | At | Signature | + + + + + + | Magnesium | 1.3 (L)Comment: Testing | 1.7 - 2.4 mg/dL | [facility] | | | | performed at [facility];[address] | | LABORATORY | | | | [address];[place] | | | | | | [address] | | | | + + + + + + + + | Specimen | + + | Blood | + + + + + + + | Performing | Address | City/State/Zipcode | Phone Number | | Organization | | | | + + + + + | [facility] | [address] | [place] [address] | [phone] | + + + + + Protime [...] | | | | | performed at [facility];[address] | | | | | | [address];[place], [place] | | | | | | [address] | | | | + + + + + + + + | Specimen | + + | Blood | + + + + + + + | Performing | Address | City/State/Zipcode | Phone Number | | Organization | | | | + + + + + | [facility] | [address] | [place] [address] | [phone] | + + + + + CBC [...] LABORATORY | | | | performed at [facility] | | | | | | [address];[place], [place] | | | | | | [address] | | | | | | | | | | + + + + + + + + | Specimen | + + | Blood | + + + + + + + | Performing | Address | City/State/Zipcode | Phone Number | | Organization | | | | + + + + + | [facility] | [address] | [place] [address] | [phone] | + + + + + Comprehensive [...] 52 (L)Comment: GFR <60: | >60 | [facility] | | | GFR | CHRONIC [...] | | | | | | MDRD IDIA traceable | | | | | | equation.Testing | | | | | | performed at [facility] | | | | | | [facility];[place], [place] | | | | | | [address] | | | | + + + + + + + + | Specimen | + + | Blood | + + + + + + + | Performing | Address | City/State/Zipcode | Phone Number | | Organization | | | | + + + + + | [facility] | [address] | [place] [address] | [phone] | + + + + + Basic [...] | | | | | performed at [facility];[address] | | | | | | [facility];[place], [place] | | | | | | [address] | | | | + + + + + + + + | Specimen | + + | Blood | + + + + + + + | Performing | Address | City/State/Zipcode | Phone Number | | Organization | | | | + + + + + | [facility] | [address] [facility] | [place] [address] | [phone] | + + + + + documented [...] | | | | AC, NPO, Daytime 6413-3144 Use | | | | | | | NIGHT DOSE for doses scheduled: | | | | | | | HS, Nighttime 6521-3128 If | | | | | | [...] 10:31 | | | | | Starting [facility] 11/23/19 at 1027 | | AM [...] PM PDT | | | | | [facility] 11/23/19 at 1115, Please | | [...]
--- OUTSIDE RECORDS SUMMARY | ~2020-01-21 | XMS | Encounter Summary ---
Demographics + + + | Address | [address] | | | [place] [address] | + + + | Home Phone | | + + + | Preferred Language | Unknown | + + + | Marital Status | Legally | + + + | Protestant Affiliation | Unknown | + + + | Race | Unknown | + + + | Ethnic Group | Unknown | + + + Author + + + | Author | [facility] | | | and [place] | + + + | Organization | [facility] | [...] Team Providers + +------+ + | Care Line Person Name | Role | Phone | [...] + + | 05/18/ | Telephone | [facility] | Oc Mooney, | Medication Refill | | 2017 | | [address] | MD [address] | | | | | [address] | [place] | | | | | [place], [place] | [address] | | | | | [address] | | | | | | [phone] | | | +--------+ + + + [...] this medication. elephone Encounter - Donna Jara, [employer] Special Agent - 05/18/2017 10:26 AM PSTCalled to speak [...]
--- OUTSIDE RECORDS SUMMARY | ~2020-01-21 | XMS | Encounter Summary ---
Demographics + + + | Address | [address] | | | [place] [address] | + + + | Home Phone [...] Team Providers + +------+ + | Care Skate Shop Attendant Name | Role | Phone | + +------+ + | Roberth Gaspar MD | PCP | | + +------+ + Encounter Details +--------+ + + + + | Date | Type | Department | Care Team | Description | +--------+ + + + + | 11/04/ | Orders Only | [facility] | Conversion | | | 2017 | | NEPHROLOGY [place] | Transaction, | | | | | [address] | Provider Unknown | | | | | [address] [place], [place] | | | | | | [address] | (Fax) | | | | | [phone] | | | +--------+ + + + [...]
--- OUTSIDE RECORDS SUMMARY | ~2020-01-21 | XMS | Encounter Summary ---
Demographics + + + | Address | [address] | | | [place] [address] | + + + | Home Phone [...] + + + | Author | [facility] | | | and [place] | + + + | Organization | [facility] | | | [...] Team Providers + +------+ + | Care Billet Assembler Name | Role | Phone | + [...] | | | | EMERGENCY CENTER | [place] [address] | | | 01/07/ | | [address] | [phone] | | | 2012 | | [place], [place] | | | | | | [address] | | | | | | [phone] | | | +--------+ + + + [...]
--- OUTSIDE RECORDS SUMMARY | ~2020-01-21 | XMS | Encounter Summary ---
Demographics + + + | Address | [address] | | | [place] [address] | + + + | Home Phone [...] Team Providers + +------+ + | Care Rack Maker Name | Role | Phone | + +------+ + | Roberth Gaspar MD | PCP | | + +------+ + Encounter Details +--------+ + + + + | Date | Type | Department | Care Team | Description | +--------+ + + + + | 09/12/ | Documentati | [facility] | [place], | | | 2019 | on | NEPHROLOGY [place] | [facility] | | | | | [address] | [place] | | | | | [address] | | | | | | [place], [place] | | | | | | [address] | | | | | | [phone] | | | +--------+ + + + [...]
--- OUTSIDE RECORDS SUMMARY | ~2020-01-21 | XMS | Encounter Summary ---
Demographics + + + | Address | [address] | | | [place] [address] | + + + | Home Phone | | + + + | Preferred Language | Unknown | + + + | Marital Status | Legally | + + + | Pentecostal Affiliation | Unknown | + + + | Race | Unknown | + + + | Ethnic Group | Unknown | + + + Author + + + | Author | [facility] | | | and [place] | + + + | Organization | [facility] | | [...] Team Providers + +------+ + | Care Lifestyle Consultant Name | Role | Phone | [...] | hand | [address] | | | | n | numbness | [address] | [place], | | | | | Hand | [place], | [place] [address] | | | | | weakness | [place] [address] | Phone: | | | | | History of | Phone: | [phone] | | | | | diabetes | [phone] | Fax: | | | | | mellitus | Fax: | [phone] | | | | | Procedures | [phone] | | | | | | DOS [...] PHYSIATRY [address] | MD [address] | polyneuropathy | | | | [address] | [place] | (Primary Dx); | | | | [facility] [place] | [address] | Bilateral hand | | | | [address] | | numbness; Hand | | | | [phone] | | weakness; History of | | [...] might be different fro m the original. [facility] Physical Medicine & Rehabilitation [address] [place] [address], [address] [place] [address] Test Date: 10/06/2016 Patient Name: Petra Dangelo : 1965 Physician: Moise Ceballos MD (Jr.) MR #: [id number] Sex: Female Referring Physician: Roberth Gaspar MD [...] nds which she describes as loss of pin puller strength. She reports numbness in both feet [...] to mid-forelegs bilaterally. She has 4/5 hand pin puller strength bilaterally. The remainder of strength is [...] may represent possible left ulnar neuropathy at [facility] jennifer l versus multi-focal mono neuropathy. [...]
--- OUTSIDE RECORDS SUMMARY | ~2020-01-21 | XMS | Encounter Summary ---
Demographics + + + | Address | [address] | | | [place] [address] | + + + | Home Phone [...] Team Providers + +------+ + | Care Linen Manager Name | Role | Phone | [...] PHYSIATRY [address] | MD [address] | | | | | [address] | [place], [place] | | | | | [place], [place] | [address] | | | | | [address] | | | | | | [phone] | | | +--------+ + + + [...]
--- OUTSIDE RECORDS SUMMARY | ~2020-01-21 | XMS | Encounter Summary ---
Demographics + + + | Address | [address] | | | [place] [address] | + + + | Home Phone [...] Team Providers + +------+ + | Care Field Underwriter Name | Role | Phone | + +------+ + | Roberth Gaspar MD | PCP | | + +------+ + Encounter Details +--------+ + + + + | Date | Type | Department | Care Team | Description | +--------+ + + + + | 09/12/ | Orders Only | [facility] | Cesar Hart MD | Essential | | 2020 | | NEPHROLOGY [place] | [address] | hypertension, benign | | | | [address] | [address] [place], [place] | (Primary Dx); CKD | | | | [address] | [address] | (chronic kidney | | | | [place], [place] | | disease), stage III | | | | [address] | | (HCC) | | | | [phone] | | | +--------+ + + + [...]
--- OUTSIDE RECORDS SUMMARY | ~2020-01-21 | XMS | Encounter Summary ---
Demographics + + + | Address | [address] | | | [place] [address] | + + + | Home Phone [...] Team Providers + +------+ + | Care Final Inspector And Tester Name | Role | Phone | + [...] + + | 12/06/ | Documentati | [facility] | Leif Kenyon DO | Results (LABS | | 2019 | on | INFECTIOUS DISEASE | [address] | 12/06/2019) | | | | [address] | [place] [address] | | | | | [place], [place] | [phone] | | | | | [address] | | | | | | [phone] | | | +--------+ + + + [...] as of this encounter Progress Nelson Hernandez, Long Term Acute Care Registered Nurse - 12/07/2019 4:29 PM PDTLab: MARK, CMP DOS:12/06/2019 Received from:NATHANAEL العراقي Abstracted into [employer] and sent to scan: YES Abstracted by: [...]
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
--- OUTSIDE RECORDS SUMMARY | ~2020-01-21 | XMS | Encounter Summary ---
Demographics + + + | Address | [address] | | | [place] [address] | + + + | Home Phone [...] Team Providers + +------+ + | Care Power Plant Manager Name | Role | Phone | + +------+ + | Roberth Gaspar MD | PCP | | + +------+ + Encounter Details +--------+ + + + + | Date | Type | Department | Care Team | Description | +--------+ + + + + | 10/27/ | Orders Only | [facility] | Cesar Hart MD | | | 2018 | | NEPHROLOGY [place] | [address] | | | | | [address] | [address] [place], [place] | | | | | [address] [place], [place] | [address] | | | | | [address] | | | | | | [phone] | | | +--------+ + + + [...]
--- OUTSIDE RECORDS SUMMARY | ~2020-01-21 | XMS | Encounter Summary ---
Demographics + + + | Address | [address] | | | [place] [address] | + + + | Home Phone | | + + + | Preferred Language | Unknown | + + + | Marital Status | Legally | + + + | Orthodox Affiliation | Unknown | + + + | Race | Unknown | + + + | Ethnic Group | Unknown | + + + Author + + + | Author | [facility] | | | and [place] | + + + | Organization | [facility] | | | [place] | + [...] Team Providers + +------+ + | Care Home Visitor Name | Role | Phone | + +------+ + | No, Unknownpcp | PCP | | + +------+ + Encounter Details +--------+ + + + + | Date | Type | Department | Care Team | Description | +--------+ + + + + | 01/07/ | Hospital | [facility] | Mookie Bustamante, | | | 2013 - | Encounter | MED CTR MED [facility] | [address] | | | | | [address] | [place] | | | 01/11/ | | [place] [address] | [address] | | | 2012 | | [phone] | | | +--------+ + + + [...] Bustamante MD - 01/11/2013 9:47 [place] [address] Patient Name: PHOENIX DANGELO Provider: Mookie Bustamante MD Unit #: [id number] Location: [address] [place], [place] [address]t #: [id number] : 1965 ADMISSION DATE: 01/07/2013 DISCHARGE DATE: [...] Dr. Harvey. She saw Dr. Castro bose, centrex radio operator, who did beside debridement. He recommended [...] was to have her go home with [facility]. However, the patient says her father will not allow that. Thus, she will be going to the [facility]. I did speak with Dr. Noe Gaspar on the phone on 01/10/2013. She needs to fol low up with him but she also should have the centrex radio operator to see her and I would say within s ix days. Ideally, you could have the centrex radio operator come to the long-term. Check with Dr. Noe Gaspar which centrex radio operator he wants her to see. She has seen a centrex radio operator in the [facility] t. DISPOSITION: The patient to be discharged to the long-term in improved condition. DIET: Will be diabetic, low fat, low cholesterol. She should work with physical therapy and if you have a wound care nurse as well. She can ambulate but I would have her minimize pressure on her right forefoot where she has the [facility] er. CODE STATUS: FULL CODE. MEDICATIONS 1. [...] Hypoglycemia protocol. We have one here but long-term might have one but we include d ours. Glucoscans before meals. Again, she needs close followup with Dr. Noe Gaspar as well as contact Dr. Noe Jara [facility]'s office for which centrex radio operator to see and ideally the centrex radio operator should start seeing he r at the long-term and have your wound care team see her as well in the long-term. Time of discharge more than 30 minutes. DICTATED BY: Mookie Bustamante MD Internal Medicine JOB #: [id number] EXT JOB #:[id number] cc: Dr Noe Gaspar in [facility] <<Signature on File>> Mookie Bustamante MD0 01/13/13 0536 <Electronically signed by Mookie Bustamante MD> documented in this encounter H&P Notes Provider Not, In System - 01/07/2013 4:10 [place] [address] Patient Name: CHINOPHOENIX STANTON Provider: Lam Harvey MD Unit #: [id number] Location: [address] [place] [address] #: [id number] : 1965 DATE: 01/07/2013 CHIEF COMPLAINT: Swollen foot. HISTORY OF PRESENT ILLNESS: Ms. Dangelo is a 47-year-old white female followed by Dr. Rick darnell in [place] who has diabetes mellitus type 2 and [...] she went to the emergency department in [facility] e she was found to have a significant cellulitis, was given vancomycin and was transferred to [place] primarily because of some hyperkalemia and some [...] off. LABORATORY STUDIES: Laboratory studies done in [place] show a blood sugar 152. BUN 34, [...] on culture. Blood cultures were obtained in [place] and I will cu lture the open lesion. I suspect her potassium will normalize with the Kayexalate and the w ithdrawal of triamterene and nonsteroidals. I expect the patient will do well. DICTATED BY: Lam Harvey MD JOB #: [id number] EXT JOB #:[id number] cc: Noe Gaspar MD <<Signature on File>> [...] [facility] | [place] | | Department [address] [place] [address] | [facility] | | [ rep [address]] [ rep [facility] | | [facility]] Signed | - IMAGING | | | | | Patient Name: PHOENIX DANGELO Physician: | | | RASC.01 : 1965 Age: 47 Sex: F Unit #: [id number] | | | Exam Date: 01/10/13 Location: [address] [place] [address] | | | Report #: [id number] Page: | | | %(RAD)RES..mtdd.print.filter("pg") of %(RAD) | | | RES..mtdd.print.filter("tpg") | | | | | | Accession Number: [id number]; [id number]; | | | [id number], [id number], [id number], [id number] PICC | | | LINE PLACEMENT CLINICAL [...] Transcribed | | | Date/Time: 01/10/2013 17:07 Mud Analysis Supervisor: | | | <<Signature on File>> | | | Campbell | | | Eloise Ocasio MD01/11/13 1032 <Electronically signed by Campbell Navas | | | Amarjit KAPLAN> Campbell Ocasio MD 01/11/13 08 | | | Mud Analysis Supervisor: Chantel Bidgahikqvmgw47/17/13829 | | | | | + + + + + + + + | Performing | Address | City/State/Zipcode | Phone Number | | Organization | | | | + + + + + | [facility] | [address] | [place] | [phone] | | [facility] | | [address] | | | - IMAGING | | | | + + + + + XR Chest PA or AP (01/11/2013 8:30 AM PDT) + + | Specimen | + + | | + + + + + | Narrative | Performed At | + + + | [facility] | [place] | | Department [address] [facility] | [facility] | | [ rep ct [address]] [ rep [facility] | | st zip] Signed | - IMAGING | | | | | Patient Name: PHOENIX DANGELO Physician: | | | SANDI.01 : 1965 Age: 47 Sex: F Unit #: [id number] | | | Exam Date: 01/10/13 Location: [address] [place] [address] | | | Report #: [id number] Page: | | | %(RAD)RES..mtdd.print.filter("pg") of %(RAD) | | | RES..mtdd.print.filter("tpg") | | | | | | Accession Number: [id number]; [id number]; | | | [id number], [id number], [id number], [id number] PICC | | | LINE PLACEMENT CLINICAL [...] Transcribed | | | Date/Time: 01/10/2013 17:07 Mud Analysis Supervisor: | | | <<Signature on File>> | | | Campbell | | | Eloise Ocasio MD01/11/13 1032 <Electronically signed by Campbell Navas | | | Amarjit KAPLAN> Campbell Ocasio MD 01/11/13 08 | | | Mud Analysis Supervisor: Track Emanzadvibsyq41/17/13 0830 | | | | | + + + + + + + + | Performing | Address | City/State/Zipcode | Phone Number | | Organization | | | | + + + + + | [facility] | [address] | [place] | [phone] | | [facility] | | [address] | | | - IMAGING | | | | + + + + + XR Chest PA or AP (01/11/2013 8:30 AM PDT) + + | Specimen | + + | | + + + + + | Narrative | Performed At | + + + | [facility] | [place] | | Department [address] [place] [address] | [facility] | | [ rep ct street1[address]] [ rep [facility] | | st zip] Signed | - IMAGING | | | | | Patient Name: PHOENIX DANGELO Physician: | | | RASC.01 : 1965 Age: 47 Sex: F Unit #: [id number] | | | Exam Date: 01/10/13 Location: [address] [place] [address] | | | Report #: [id number] Page: | | | %(RAD)RES..mtdd.print.filter("pg") of %(RAD) | | | RES..mtdd.print.filter("tpg") | | | | | | Accession Number: [id number]; [id number]; | | | [id number], [id number], [id number], [id number] PICC | | | LINE PLACEMENT CLINICAL [...] Transcribed | | | Date/Time: 01/10/2013 17:07 Mud Analysis Supervisor: | | | <<Signature on File>> | | | Campbell | | | Eloise Ocasio MD01/11/13 1032 <Electronically signed by Campbell Navas | | | Amarjit KAPLAN> Campbell Ocasio MD 01/11/13829 | | | Mud Analysis Supervisor: Chantel Whwprutnvjdvq19/17/13829 | | | | | + + + + + + + + | Performing | Address | City/State/Zipcode | Phone Number | | Organization | | | | + + + + + | [facility] | [address] | [place] | [phone] | | [facility] | | [address] | | | - IMAGING | | | | + + + + + XR Chest PA or AP (01/10/2013 3:18 PM PDT) + + | Specimen | + + | | + + + + + | Narrative | Performed At | + + + | [facility] | [place] | | Department [address] [facility] | [facility] | | [ rep ct street1[address]] [ rep [facility] | | st zip] Signed | - IMAGING | | | | | Patient Name: PHOENIX DANGELO Physician: | | | YE. : 1965 Age: 47 Sex: F Unit #: [id number] | | | Exam Date: 01/10/13 Location: [address] [place] [address] | | | Report #: [id number] Page: | | | %(RAD)RES..mtdd.print.filter("pg") of %(RAD) | | | RES..mtdd.print.filter("tpg") | | | | | | Accession Number: [id number] | | | [id number], [id number], [id number], [id number] PICC LINE PLACEMENT | | | CLINICAL [...] Transcribed Date/Time: 01/10/2013 17:07 | | | Mud Analysis Supervisor: <<Signature on File>> | | | | | | Capmbell Ocasio MD01/10/13 7426 <Electronically signed by Campbell Navas | | | Amarjit KAPLAN> Campbell Ocasio MD 01/10/13 5189 | | | Mud Analysis Supervisor: Chantel Njkqgdzlfstyc19/16/13 6989 | | | | | + + + + + + + + | Performing | Address | City/State/Zipcode | Phone Number | | Organization | | | | + + + + + | [facility] | [address] | [place], [place] | [phone] | | [facility] | | [address] | | | - IMAGING | | [...] + | [facility] | [address] | [place], [place] | [phone] | | [facility] | | [address] | | | - LABORATORY | | | | + + + + + | [facility] | [address] | [place], [place] | | | [facility] | | [address], [facility] | | | - [...] | 0.86 | 0.60 - 1.30 | [facility] | | | | | mg/dL | [...] + | [facility] | [address] | [place], [place] | [phone] | | [facility] | | [address] | | | - LABORATORY | | | | + + + + + | [facility] | [address] | [place], [place] | | | [facility] | | [address], [facility] | | | - [...] | | Neutrophils | | | [facility] | | [...] + | [facility] | [address] | [place], [place] | [phone] | | [facility] | | [address] | | | - LABORATORY | | | | + + + + + | [facility] | [address] | [place] | | | [facility] | | [address] [place] [address] | | | - LABORATORY | | [...] 14 | 7 - 18 mg/dL | [facility] | | | | | | [facility] | | | | | | [facility] | | | | | | C[facility] - | | | | | | LABORATORY | | + + + + + + | Creatinine | 1.06 | 0.60 - 1.30 | [facility] | | | | | mg/dL | [facility] | | | | | | [facility]ICAL | | | | | | CENTER - | | | | | | LABORATORY | | + + + + + + | Estimated | 56 (L)Comment: For | >60 mL/min/A | [facility] | | | GFR | -Americans, [...] | ine Ratio | | | [facility] | | | | [...] + | [facility] | [address] | [place] | [phone] | | [facility] | | [address] | | | - LABORATORY | | | | + + + + + | [facility] | [address] | [place], [place] | | | [facility] | | [address] | | | - LABORATORY [...] + | [facility] | [address] | [place], [place] | [phone] | | [facility] | | [address] | | | - LABORATORY | | | | + + + + + | [facility] | [address] | [place] | | | [facility] | | [address] [place] [address] | | | - LABORATORY | | [...] [address] | [place] | [phone] | | [facility] | | [address] | | | - LABORATORY | | | | + + + + + | [facility] | [address] | [place] | | | [facility] | | [address], [facility] | | | - [...] + | [facility] | [address] | [place], [place] | [phone] | | [facility] | | [address] | | | - LABORATORY | | | | + + + + + | [facility] | [address] | [place], [place] | | | [facility] | | [address] [place] [address] | | | - LABORATORY | | [...] + | [facility] | [address] | [place], [place] | [phone] | | [facility] | | [address] | | | - LABORATORY | | | | + + + + + | [facility] | [address] | [place], [place] | | | [facility] | | [address] | | | - LABORATORY [...] [address] | [place] | [phone] | | [facility] | | [address] | | | - LABORATORY | | | | + + + + + | [facility] | [address] | [place] | | | [facility] | | [address] | | | - LABORATORY [...] + | [facility] | [address] | [place], [place] | [phone] | | [facility] | | [address] | | | - LABORATORY | | | | + + + + + | [facility] | [address] | [place], [place] | | | [facility] | | [id number] [place] [address] | | | - LABORATORY | | [...] | | | | | | Standards Anita | | | | | | Rifampin [...] | | | | | | Standards Anita | | | | | | Rifampin [...] + | [facility] | [address] | [place], [place] | [phone] | | [facility] | | [address] | | | - LABORATORY | | | | + + + + + | [facility] | [address] | [place], [place] | | | [facility] | | [address] [place] [address] | | | - LABORATORY | | | | + + + + + documented in this encounter Visit Diagnoses Not on filedocumented in this encounter
--- OUTSIDE RECORDS SUMMARY | ~2020-01-21 | XMS | Encounter Summary ---
Demographics + + + | Address | [address] | | | [place] [address] | + + + | Home Phone | | + + + | Preferred Language | Unknown | + + + | Marital Status | Legally | + + + | Hoahaoism Affiliation | Unknown | + + + | Race | Unknown | + + + | Ethnic Group | Unknown | + + + Author + + + | Author | [facility] | | | and [place] | + + + | Organization | [facility] | | [...] Team Providers + +------+ + | Care Electroslag Welding Machine Operator Name | Role | Phone | + +------+ + | Roberth Gaspar MD | PCP | | + +------+ + Encounter Details +--------+ + + + + | Date | Type | Department | Care Team | Description | +--------+ + + + + | 01/22/ | Orders Only | [facility] | Provider, | | | 2019 | | SYSTEM GENERIC OP | MD [address] | | | | | [address] | [address] | | | | | [address] [place], [place] | [place] [address] | | | | | [address] | | | | | | [phone] | | | +--------+ + + + [...]
--- OUTSIDE RECORDS SUMMARY | ~2020-01-21 | XMS | Encounter Summary ---
Demographics + + + | Address | [address] | | | [place] [address] | + + + | Home Phone [...] Team Providers + +------+ + | Care Elevator Installer Apprentice Name | Role | Phone | [...] + + | 01/05/ | Office | [facility] | Oc Mooney, | Peripheral | | 2017 | Visit | PHYSIATRY [address] | [address] | polyneuropathy | | | | [address] | [place] | (Primary Dx); | | | | [place] | [address] | Neuropathic pain; | | | | [address] | | Vitamin B12 | | | | [phone] | | deficiency; Angular | | | [...] encounter Patient Instructions Patient Instructions Donna Jara, Public Service Director - 01/05/2017 4:00 PM PDTBegin the consumption [...] has no apparent deficits with short or chcf memory. The cranial nerves appear grossly intact. Subjective sensory change in both hands, unchanged compared to 10/06/2016. 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 Remainder of strength normal in major [...]
--- OUTSIDE RECORDS SUMMARY | ~2020-01-21 | XMS | Encounter Summary ---
Demographics + + + | Address | [address] | | | [place] [address] | + + + | Home Phone [...] Team Providers + +------+ + | Care Maker Up Folding Name | Role | Phone | + [...] PHYSIATRY [address] | MD [address] | | | | | [address] | [place] | | | | | [place] | [address] | | | | | [address] | | | | | | [phone] | | | +--------+--------+ + + + [...] encounter Miscellaneous Notes Telephone Encounter - Whitney Gasapr - 03/04/2017 9:02 AM PDTPatient returned call. She is currently taking 1 capsule 3 times daily and does need this refill. elephone Encounter - Donna Jara, Air Antisubmarine Officer - 03/03/2017 5:05 PM PDTCalled to speak to Petra Dangelo regarding medication refill request for medication gabapentin. Is Petra Dangelo currently taking 1 capsule by mouth three times daily? Left a voicemail message to call our office back. Electronically si gned by Donna Jara Air Antisubmarine Officer at 03/03/2017 5:07 PM PDTdocumented in this e ncounter Plan of Treatment Not on filedocumented as of this encounter Visit Diagnoses Not on filedocumented in this encounter"
--- OUTSIDE RECORDS SUMMARY | ~2020-01-21 | XMS | Encounter Summary ---
Demographics + + + | Address | [address] | | | [place] [address] | + + + | Home Phone [...] Team Providers + +------+ + | Care Digital Community Manager Name | Role | Phone | [...] + | 12/04/ | Office | [facility] | Andrew Cross DO | Empyema of pleural | | 2020 | Visit | INFECTIOUS DISEASE | [address] | space ([facility]) (Primary | | | | [address] | [place] [address] | Dx); MRSA infection | | | | [place], [place] | [phone] | | | | | [address] | | (methicillin-resista | | | | [phone] | | nt Staphylococcus | | | [...]
--- OUTSIDE RECORDS SUMMARY | 2020-01-21 08:00 | XMS ---
PreManage Notification: PHOENIX MISHRA Security Automobile Insurance Claim Examiner Events No recent Security Events currently on file CRITERIA MET - Group Notification - [facility] - Has Care Guidelines - PDMP CARE PROVIDERS JOANN RODRIGUEZ Internal Medicine: Geriatric Medicine 12/20/2019-Current PHONE: [phone] CRYSTAL, [facility] 08/05/2018-Current CELINA Graham PHONE: [phone] Saleem has no Care Guidelines for this patient. Care History Medical/Surgical 02/23/2019 [facility] CAUTION PRESCRIBING NARCOTICS - PATIENT IS UNDER PAIN PLAN WITH PCP DR CELINA ROJAS IF PATIENT NEEDS PAIN MED ACUTELY - GIVE 2-3 DAYS WORTH RX, THEN PATIENT IS TO CONTACT PCP FOR FURTHER MEDS.\T\nbsp; DO NOT TELL HER TO TAKE MORE OF WHAT SHE IS CURRENTLY ON.\T\nbsp; THIS WAS REQUESTED BY PCP DR ROJAS. E.D. VISIT COUNT (12 MO.) 5 [facility] TOTAL 5 NOTE: Visits indicate total known visits. 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 - Essential (primary) hypertension - Allergy status to penicillin - Shortness of breath - Other rodent exterminator (current) drug therapy - Chronic obstructive pulmonary disease with (acute) exacerbati 11/17/2019 20:03 [facility] TYPE: Emergency COMPLAINT: - MULTIPLE COMPLAINTS 11/11/2019 11:21 [facility] TYPE: Emergency COMPLAINT: - BACK PAIN, SOB 02/19/2019 18:39 [facility] TYPE: Emergency COMPLAINT: - FOOT INJ DIAGNOSES: - Sprain of unspecified ligament of right ankle, initial encoun - Hypothyroidism, unspecified - middle or intermediate school principal (current) 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 of 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 hypoglycemic drugs - Allergy status to penicillin - Unspecified asthma, uncomplicated - Essential (primary) hypertension - Bee allergy status - Overexertion from prolonged static or awkward postures, initi - Pain in right ankle and joints of right foot - Other rodent exterminator (current) drug therapy - Allergy status to serum and vaccine status - Blister (nonthermal), right foot, initial encounter - Type 2 diabetes mellitus without complications INPATIENT VISIT TRACKING (12 MO.) [facility]2019 [facility] TYPE: Internal Medicine DIAGNOSES: - Essential (primary) [...] Acute kidney failure, unspecified 11/17/2019 20:04 [facility] TYPE: Observation COMPLAINT: - DECONDITIONING EDEMA DIAGNOSES: [...] Psychophysiologic insomnia - Hypothyroidism, unspecified 11/11/2019 18:[address] [facility] [place] TYPE: Medical Surgical COMPLAINT: - PNEUMONIA DIAGNOSES: - Obesity, unspecified - Chronic pain syndrome - Other rodent exterminator (current) drug therapy - Severe sepsis without septic shock - Tachycardia, unspecified - Other specified sepsis - Anemia, unspecified - Body mass index (BMI) 45.0-49.9, adult - Allergy status to penicillin - Urinary tract infection, site not specified - Hypothyroidism, unspecified - Hyperlipidemia, unspecified - Hypomagnesemia - Unspecified asthma, uncomplicated - middle or intermediate school principal (current) use of systemic steroids - Sepsis due to Escherichia coli [E. 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
[2020-01-21] MEDS ORDERED: MORPHINE SULFAT15 MG PO (10:19)
[2020-01-21] MEDS ORDERED: CRUTCH1 EACH (10:20)
== END 2020-01-21 11:43 | disposition home or self-care (01) ==
LOC: ED 07:57
PROC: 0QSH34Z Reposition Left Tibia with Internal Fixation Device, Percutaneous Approach (ICD-10-PCS; principal; 2020-01-21)
PROC: 0QSKXZZ Reposition Left Fibula, External Approach (ICD-10-PCS; 2020-01-21)
DX: S82.842A Displaced bimalleolar fracture of left lower leg, initial encounter for closed fracture (principal); J45.909 Unspecified asthma, uncomplicated; I10 Essential (primary) hypertension; E03.9 Hypothyroidism, unspecified; E11.40 Type 2 diabetes mellitus with diabetic neuropathy, unspecified; Z87.891 Personal history of nicotine dependence; Z88.0 Allergy status to penicillin; Z91.09 Other allergy status, other than to drugs and biological substances; Z88.7 Allergy status to serum and vaccine; Z91.013 Allergy to seafood; Z79.899 Other long term (current) drug therapy; Z79.84 Long term (current) use of oral hypoglycemic drugs; X58.XXXA Exposure to other specified factors, initial encounter
CPT/HCPCS: 27810; 73610; 99283-25; J2250; J3010

== ENCOUNTER 2020-02-01 11:32 | Inpatient (IN) | payer OTHER ==
[~2020-02-01] VITALS: Ht 160 cm; Wt 120.8 kg
--- OUTSIDE RECORDS SUMMARY | ~2020-02-01 | XMS | Clinical Summary ---
Demographics + + + | Address | [address] | | | [place] [address] | + + + | Home Phone | | + + + | Preferred Language | Unknown | + + + | Marital Status | Legally | + + + | Temple Affiliation | Unknown | + + + | Race | Unknown | + + + | Ethnic Group | Unknown | + + + Author + + + | Author | [facility] | | | and [place] | + + + | Organization | [facility] | | | and [place] | + + + | Address | Unknown | + + + | Phone | Unavailable | + + + Support + + +---------+ + | Name | Relationship | Address | Phone | + + +---------+ + | Milana Kobe | ECON | Unknown | | + + +---------+ + | Simone Holland | ECON | Unknown | | + + +---------+ + Care Team Providers + +------+ + | Care Polls Or Surveys Interviewer Name | Role | Phone | + +------+ + | Remi Talley MD | PCP | | + +------+ + Allergies + + + + + + | Active Allergy | Reactions | Severity | Noted | Comments | | | | | Date | | + + + + + + | Iodinated Diagnostic | Other (See Comments) | Low | 07/26/19 | | | Agents | | | 19 | | + + + + + + | Penicillins | Shortness Of Breath | High | 04/29/20 | | | | | | 16 | | + + + + + + | Shellfish-Derived | Shortness Of Breath | High | 11/06/19 | | | Products | | | 18 | | + + + + + + Medications + + + +---------+------+------+-------+ | Medication | Sig | Dispensed | Refills | Star | End | Statu | | | | | | t | Date | s | | | | | | Date | | | + + + +---------+------+------+-------+ | omeprazole | Take 20 mg by mouth | | 0 | | | Activ | | (PRILOSEC) 20 mg | every morning | | | | | e | | capsule | (before breakfast). | | | | | | + + + +---------+------+------+-------+ | glimepiride | Take 4 mg by mouth | | 0 | | | Activ | | (AMARYL) 4 mg tablet | every morning | | | | | e | | | (before breakfast). | | | | | | + + + +---------+------+------+-------+ | gabapentin | Take 1 capsule by | 90 | 1 | 09/0 | | Activ | | (NEURONTIN) 300 mg | mouth 3 times daily. | capsule | | 8/20 | | e | | capsule | | | | 17 | | | + + + +---------+------+------+-------+ | ascorbic acid | Take 500 mg by mouth | | 0 | | | Activ | | (VITAMIN C) 500 MG | daily. | | | | | e | | tablet | | | | | | | + + + +---------+------+------+-------+ | albuterol 90 | Inhale 2 puffs into | | 0 | | | Activ | | mcg/puff inhaler | the lungs every 4 | | | | | e | | | (four) hours as | | | | | | | | needed for Wheezing. | | | | | | + + + +---------+------+------+-------+ | montelukast | Take 10 mg by mouth | | 0 | | | Activ | | (SINGULAIR) 10 mg | nightly. | | | | | e | | tablet | | | | | | | + + + +---------+------+------+-------+ | atorvaSTATin | take 1 tablet by | | 0 | 05/2 | | Activ | | (LIPITOR) 10 mg | mouth once daily | | | 03/17 | | e | | tablet | | | | 19 | | | + + + +---------+------+------+-------+ | traZODone | take 1 tablet by | | 0 | 07/2 | | Activ | | (DESYREL) 50 mg | mouth at bedtime | | | 3/20 | | e | | tablet | | | | 19 | | | + + + +---------+------+------+-------+ | acetaminophen | Take 500 mg by mouth | | 0 | | | Activ | | (TYLENOL) 500 mg | every 6 hours as | | | | | e | | tablet | needed for Pain. | | | | | | + + + +---------+------+------+-------+ | capsaicin | apply topically to | | 0 | 04/0 | | Activ | | (ZOSTRIX) 0.025% | affected area four | | | 9/20 | | e | | cream | times a day | | | 20 | | | + + + +---------+------+------+-------+ | diclofenac | apply 4 grams | | 0 | 03/3 | | Activ | | (VOLTAREN) 1% GEL | topically four times | | | 0/20 | | e | | | a day | | | 20 | | | + + + +---------+------+------+-------+ | lisinopril | take 1 tablet by | | 0 | 04/2 | | Activ | | (PRINIVIL, ZESTRIL) | mouth once daily | | | 9 | | e | | 5 mg tablet | | | | 20 | | | + + + +---------+------+------+-------+ | metoprolol | take 1 tablet by | | 0 | 05/2 | | Activ | | tartrate (LOPRESSOR) | mouth twice a day | | | 2/20 | | e | | 50 mg tablet | | | | 20 | | | + + + +---------+------+------+-------+ | SPIRIVA HANDIHALER | inhale the contents | | 0 | 05/1 | | Activ | | 18 MCG inhalation | of one capsule in | | | 320 | | e | | capsule | the handihaler once | | | 20 | | | | | daily | | | | | | + + + +---------+------+------+-------+ | DULoxetine | take 1 capsule by | | 0 | 04/0 | | Activ | | (CYMBALTA) [address] | mouth once daily | | | 8/20 | | e | | capsule | | | | 20 | | | + + + +---------+------+------+-------+ | | Inhale 1 Blister | | 0 | 04/2 | | Activ | | fluticasone-salmeter | into the lungs 2 | | | 9/20 | | e | | ol (ADVMIRNA MARROQUIN | times daily. | | | 20 | | | | INHUB) 500-50 | | | | | | | | mcg/puff diskus | | | | | | | | inhaler | | | | | | | + + + +---------+------+------+-------+ | levothyroxine | take 1 tablet by | | 0 | 03/0 | | Activ | | (SYNTHROID) 200 mcg | mouth every morning | | | 6/20 | | e | | tablet | before breakfast | | | 20 | | | + + + +---------+------+------+-------+ | aspirin 81 MG EC | Take 1 tablet by | 30 | 0 | 06/0 | | Activ | | tablet | mouth Daily. | tablet | | 3/20 | | e | | | | | | 20 | | | + + + +---------+------+------+-------+ | | Take 1 tablet by | 15 | 0 | 06/0 | | Activ | | oxyCODONE-acetaminop | mouth every 6 hours | tablet | | 2/20 | | e | | hen (PERCOCET) 5-325 | as needed for Pain. | | | 20 | | | | mg per tablet | | | | | | | + + + +---------+------+------+-------+ Active Problems + + + | Problem | Noted Date | + + + | Sepsis | 11/23/2019 | + + + | Weakness generalized | 11/23/2019 | + + + | Pulmonary nodules | 11/22/2019 | + + + | Empyema of pleural space | 11/21/2019 | + + + | Right lower lobe pneumonia | 11/21/2019 | + + + | MRSA infection (methicillin-resistant Staphylococcus aureus) | 11/21/2019 | + + + | Thrombocytosis | 11/21/2019 | + + + | Hypoalbuminemia | 11/21/2019 | + + + | COPD (chronic obstructive pulmonary disease) | 11/21/2019 | + + + | GERD without esophagitis | 11/21/2019 | + + + | Reactive airways dysfunction syndrome | 09/13/2019 | + + + | Cyanocobalamin deficiency | 09/13/2019 | + + + | Degeneration of lumbar or lumbosacral intervertebral disc | 09/13/2019 | + + + | Hypothyroidism | 09/13/2019 | + + + | Osteoarthrosis, hip | 09/13/2019 | + + + | Chronic pain syndrome | 09/13/2019 | + + + | Anemia of chronic disease | 11/08/2017 | + + + | CKD (chronic kidney disease), stage III | 11/08/2017 | + + + | Class 3 severe obesity due to excess calories without serious | 11/08/2017 | | comorbidity with body mass index (BMI) of 45.0 to 49.9 in adult | | + + + | Essential hypertension, benign | 11/08/2017 | + + + | Hypothyroidism due to acquired atrophy of thyroid | 11/08/2017 | + + + | Primary osteoarthritis involving multiple joints | 11/08/2017 | + + + | Type 2 diabetes mellitus with diabetic nephropathy, without | 11/08/2017 | | long-term current use of insulin | | + + + Encounters +--------+ + + + + | Date | Type | Specialty | Care Team | Description | +--------+ + + + + | 12/25/ | Telephone | Infectious Diseases | Carey Martínez, | Lisa (F/U Appt ) | | 2020 | | | [employer]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 | | +--------+ + + + + | 12/07/ | Telephone | Infectious Diseases | Leif Kenyon DO | Coordination Of Care | | 2019 | | | | | +--------+ + + + + | 12/06/ | Documentati | Infectious Diseases | Leif Kenyon DO | Results (LABS | | 2019 | on | | | 12/06/2019) | +--------+ + + + + | 12/04/ | Office | Infectious Diseases | Leif Kenyon DO | Empyema of pleural | | 2019 | Visit | | | space ([facility]) (Primary | | | | | | Dx); MRSA infection | | | | | | | | | | | | (methicillin-resista | | | | | | nt Staphylococcus | | | | | | aureus) | +--------+ + + + + | 11/20/ | Hospital | Internal Medicine | María Elena Blas, | Anemia of chronic | | 2019 - | Encounter | | MD Rao, | disease; Chronic | | | | | DO Scottie Chang, | pain syndrome; CKD | | 11/28/ | | | Fredrick Navas MD | (chronic kidney | | 2020 | | | Sanaz Vásquez, | disease), stage III | | | | | Romario Dawson, | ([facility]); Empyema of | | | | | MD | pleural space ([facility]); | | | | | | Essential | | | | | | hypertension, | | | | | | benign; Pneumonia of | | | | | | right lower lobe | | | | | | due to methicillin | | | | | | resistant | | | | | | Staphylococcus | | | | | | aureus (MRSA) ([facility]); | | | | | | 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, without | | | | | | long-term current | | | | | | use of insulin | | | | | | ([facility]); Pulmonary | | | | | | nodules; | | | | | | Thrombocytosis | | | | | | ([facility]); Loculated | | | | | | pleural effusion; | | | | | | EVA (acute kidney | | | | | | injury) ([facility]); | | | | | | Sepsis, due to | | | | | | unspecified | | | | | | organism, | | | | | | unspecified whether | | | | | | acute organ | | | | | | dysfunction present | | | | | | ([facility]); Chronic | | | | | | obstructive | | | | | | pulmonary disease, | | | | | | unspecified COPD | | | | | | type ([facility]); Weakness | | | | | | generalized | +--------+ + + + + from Last 3 Months Immunizations + + + + | Name | Administration Dates | Next Due | + + + + | PNEUMOCOCCAL | 08/04/2019, 11/30/2011 | | | POLYSACCHARIDE | | | | 23-VALENT (PPSV23) | | | + + + + | TDAP, (ADOL/ADULT) | 08/04/2019 | | + + + + Family History + + +------+ + | Medical History | Relation | Name | Comments | + + +------+ + | Diabetes | Brother | | | + + +------+ + | Cancer | Father | | | + + +------+ + | Cancer | Father | | | + + +------+ + | Diabetes | Maternal | | | | | Aunt | | | + + +------+ + | No known problems | Maternal | | | | | Grandfath | | | | | er | | | + + +------+ + | Diabetes | Maternal | | | | | Grandmoth | | | | | er | | | + + +------+ + | Diabetes | Mother | | | + + +------+ + | Kidney disease | Mother | | | + + +------+ + | Diabetes, NIDDM | Mother | | | + + +------+ + | No known problems | Paternal | | | | | Grandfath | | | | | er | | | + + +------+ + | Diabetes | Paternal | | | | | Grandmoth | | | | | er | | | + + +------+ + | Arthritis | Sister | | | + + +------+ + | Hypertension | Sister | | | + + +------+ + + +------+ + + | Relation | Name | Status | Comments | + +------+ + + | Brother | | Alive | | + +------+ + + | Brother | | | | + +------+ + + | Father | | | | + +------+ + + | Father | | Alive | | + +------+ + + | Father | | | | + +------+ + + | Maternal Aunt | | Alive | | + +------+ + + | Maternal Aunt | | | | + +------+ + + | Maternal Grandfather | | Other | STATUS NOT LISTED | + +------+ + + | Maternal Grandmother | | | | | | | (Age | | | | | 68) | | + +------+ + + | Mother | | | | + +------+ + + | Mother | | | | + +------+ + + | Mother | | | | + +------+ + + | Paternal Grandfather | | Other | STATUS NOT LISTED | + +------+ + + | Paternal Grandmother | | | | | | | (Age | | | | | 76) | | + +------+ + + | Sister | | Alive | | + +------+ + + | Sister | | | | + +------+ + + | Sister | | | | + +------+ + + Social History + +-------+ +--------+ [...] on file | | + + + Last Filed Vital Signs + + + [...] Height | 160 cm (5' 3") | 11/21/2019 5:56 PM | | | | | PDT | | + + + + + | Body Mass Index | 49.39 | 11/21/2019 5:56 PM | | | | | PDT | | + + + + + Plan of Treatment + + + + + | Health Maintenance | Due Date | Last | Comments | | | | Done | | + + + + + | Hepatitis C | | | | | Screening | 7 | | | + + + + + | Medication | | | | | Management | 7 | | | + + + + + | Diabetic Eye Exam | | | | | | 5 | | | + + + + + | Diabetic Foot Exam | | | | | | 5 | | | + + + + + | Cervical Cancer | | | | | Screening (Pap) | 7 | | | + + + + + | Breast Cancer | | | | | Screening | 2 | | | + + + + + | Hemoglobin A1c | | 11/05/19 | | | Screening | 7 | 17 | | + + + + + | Colorectal Cancer | | | | | Screening | 7 | | | | (Colonoscopy) | | | | + + + + + | Vaccine: Zoster (1 | | | | | of 2) | 7 | | | + + + + + | Med Mgmt: HBA1C | | 11/05/19 | | | | 7 | 17 | | + + + + + | Vaccine: Influenza | | | | | (#1) | 0 | | | + + + + + | Med Mgmt: TSH | | 08/04/19 | | | | 1 | 20 | | + + + + + | Med Mgmt: BUN | | 12/06/19 | | | | 1 | 20, | | | | | 11/29/19 | | | | | 20, | | | | | 11/28/19 | | | | | 20, | | | | | Addition | | | | | al | | | | | history | | | | | exists | | + + + + + | Med Mgmt: Cr | | 12/06/19 | | | | 1 | 20, | | | | | 11/29/19 | | | | | 20, | | | | | 11/28/19 | | | | | 20, | | | | | Addition | | | | | al | | | | | history | | | | | exists | | + + + + + | Med Mgmt: K | | 12/06/19 | | | | 1 | 20, | | | | | 11/29/19 | | | | | 20, | | | | | 11/28/19 | | | | | 20, | | | | | Addition | | | | | al | | | | | history | | | | | exists | | + + + + + | Med Mgmt: eGFR | | 12/06/19 | | | | 1 | 20, | | | | | 11/29/19 | | | | | 20, | | | | | 11/28/19 | | | | | 20, | | | | | Addition | | | | | al | | | | | history | | | | | exists | | + + + + + | Vaccine: | | 08/04/19 | | | Dtap/Tdap/Td (2 - | 0 | 20 | | | Td) | | | | + + + + + | Vaccine: | Completed | 08/04/19 | | | Pneumococcal 19-64 | | 20, | | | | | 11/30/19 | | | | | 12 | | + + + + + Procedures + +--------+ + + + | Procedure Name | Priori | Date/Time | Associated Diagnosis | Comments | | | ty | | | | + +--------+ + + + | LABS - EXTERNAL SCAN | | 12/06/2019 | | Results for this | | | | 12:00 AM | | procedure are in the | | | | PDT | | results section. | + +--------+ + + + | CBC NO DIFFERENTIAL | Routin | 12/06/2019 | | Results for this | | | e | | | procedure are in the | | | | | | results section. | + +--------+ + + + | COMPREHENSIVE | Routin | 12/06/2019 | | Results for this | | METABOLIC PANEL | e | | | procedure are in the | | | | | | results section. | + +--------+ + + + | POC GLUCOSE (NON | Routin | 11/29/2019 | | Results for this | | ORD) | e | 11:57 AM | | procedure are in the | | | | PDT | | results section. | + +--------+ + + + | POC GLUCOSE (NON | Routin | 11/29/2019 | | Results for this | | ORD) | e | 8:01 AM | | procedure are in the | | | | PDT | | results section. | + +--------+ + + + | COMPREHENSIVE | Routin | 11/29/2019 | | Results for this | | METABOLIC PANEL | e | 3:11 AM | | procedure are in the | | | | PDT | | results section. | + +--------+ + + + | POC GLUCOSE (NON | Routin | 11/28/2019 | | Results for this | | ORD) | e | 9:17 PM | | procedure are in the | | | | PDT | | results section. | + +--------+ + + + | POC GLUCOSE (NON | Routin | 11/28/2019 | | Results for this | | ORD) | e | 5:04 PM | | procedure are in the | | | | PDT | | results section. | + +--------+ + + + | POC GLUCOSE (NON | Routin | 11/28/2019 | | Results for this | | ORD) | e | 11:55 AM | | procedure are in the | | | | PDT | | results section. | + +--------+ + + + | XR CHEST INSPIRATION | STAT | 11/28/2019 | | Results for this | | AND EXPIRATION | | 10:45 AM | | procedure are in the | | | | PDT | | results section. | + +--------+ + + + | POC GLUCOSE (NON | Routin | 11/28/2019 | | Results for this | | ORD) | e | 8:17 AM | | procedure are in the | | | | PDT | | results section. | + +--------+ + + + | XR CHEST INSPIRATION | Routin | 11/28/2019 | | Results for this | | AND EXPIRATION | e | 7:38 AM | | procedure are in the | | | | PDT | | results section. | + +--------+ + + + | COMPREHENSIVE | Routin | 11/28/2019 | | Results for this | | METABOLIC PANEL | e | 4:04 AM | | procedure are in the | | | | PDT | | results section. | + +--------+ + + + | CBC WITH | Routin | 11/28/2019 | | Results for this | | DIFFERENTIAL | e | 4:04 AM | | procedure are in the | | | | PDT | | results section. | + +--------+ + + + | POC GLUCOSE (NON | Routin | 11/27/2019 | | Results for this | | ORD) | e | 9:10 PM | | procedure are in the | | | | PDT | | results section. | + +--------+ + + + | POC GLUCOSE (NON | Routin | 11/27/2019 | | Results for this | | ORD) | e | 5:39 PM | | procedure are in the | | | | PDT | | results section. | + +--------+ + + + | POC GLUCOSE (NON | Routin | 11/27/2019 | | Results for this | | ORD) | e | 12:22 PM | | procedure are in the | | | | PDT | | results section. | + +--------+ + + + | COMPREHENSIVE | Add-On | 11/27/2019 | | Results for this | | METABOLIC PANEL | | 10:53 AM | | procedure are in the | | | | PDT | | results section. | + +--------+ + + + | POC GLUCOSE (NON | Routin | 11/27/2019 | | Results for this | | ORD) | e | 8:25 AM | | procedure are in the | | | | PDT | | results section. | + +--------+ + + + | XR CHEST 1 VIEW | Routin | 11/27/2019 | | Results for this | | | e | 5:50 AM | | procedure are in the | | | | PDT | | results section. | + +--------+ + + + | CBC WITH | Routin | 11/27/2019 | | Results for this | | DIFFERENTIAL | e | 4:11 AM | | procedure are in the | | | | PDT | | results section. | + +--------+ + + + | POC GLUCOSE (NON | Routin | 11/26/2019 | | Results for this | | ORD) | e | 9:32 PM | | procedure are in the | | | | PDT | | results section. | + +--------+ + + + | LACTIC ACID | STAT | 11/26/2019 | | Results for this | | | | 8:22 PM | | procedure are in the | | | | PDT | | results section. | + +--------+ + + + | POC GLUCOSE (NON | Routin | 11/26/2019 | | Results for this | | ORD) | e | 7:18 PM | | procedure are in the | | | | PDT | | results section. | + +--------+ + + + | POC GLUCOSE (NON | Routin | 11/26/2019 | | Results for this | | ORD) | e | 5:14 PM | | procedure are in the | | | | PDT | | results section. | + +--------+ + + + | POC GLUCOSE (NON | Routin | 11/26/2019 | | Results for this | | ORD) | e | 12:49 PM | | procedure are in the | | | | PDT | | results section. | + +--------+ + + + | CBC WITH | Routin | 11/26/2019 | | Results for this | | DIFFERENTIAL | e | 8:11 AM | | procedure are in the | | | | PDT | | results section. | + +--------+ + + + | POC GLUCOSE (NON | Routin | 11/26/2019 | | Results for this | | ORD) | e | 7:36 AM | | procedure are in the | | | | PDT | | results section. | + +--------+ + + + | BASIC METABOLIC | Routin | 11/26/2019 | | Results for this | | PANEL | e | 7:06 AM | | procedure are in the | | | | PDT | | results section. | + +--------+ + + + | DIAGNOSTIC REPORT - | | 11/26/2019 | | Results for this | | EXTERNAL SCAN | | 12:00 AM | | procedure are in the | | | | PDT | | results section. | + +--------+ + + + | POC GLUCOSE (NON | Routin | 11/25/2019 | | Results for this | | ORD) | e | 9:38 PM | | procedure are in the | | | | PDT | | results section. | + +--------+ + + + | POC GLUCOSE (NON | Routin | 11/25/2019 | | Results for this | | ORD) | e | 8:35 PM | | procedure are in the | | | | PDT | | results section. | + +--------+ + + + | POC GLUCOSE (NON | Routin | 11/25/2019 | | Results for this | | ORD) | e | 5:08 PM | | procedure are in the | | | | PDT | | results section. | + +--------+ + + + | POC GLUCOSE (NON | Routin | 11/25/2019 | | Results for this | | ORD) | e | 12:18 PM | | procedure are in the | | | | PDT | | results section. | + +--------+ + + + | POC GLUCOSE (NON | Routin | 11/25/2019 | | Results for this | | ORD) | e | 8:53 AM | | procedure are in the | | | | PDT | | results section. | + +--------+ + + + | POC GLUCOSE (NON | Routin | 11/25/2019 | | Results for this | | ORD) | e | 7:50 AM | | procedure are in the | | | | PDT | | results section. | + +--------+ + + + | BASIC METABOLIC | Routin | 11/25/2019 | | Results for this | | PANEL | e | 5:13 AM | | procedure are in the | | | | PDT | | results section. | + +--------+ + + + | CBC WITH | Routin | 11/25/2019 | | Results for this | | DIFFERENTIAL | e | 5:13 AM | | procedure are in the | | | | PDT | | results section. | + +--------+ + + + | POC GLUCOSE (NON | Routin | 11/24/2019 | | Results for this | | ORD) | e | 9:30 PM | | procedure are in the | | | | PDT | | results section. | + +--------+ + + + | POC GLUCOSE (NON | Routin | 11/24/2019 | | Results for this | | ORD) | e | 5:09 PM | | procedure are in the | | | | PDT | | results section. | + +--------+ + + + | POC GLUCOSE (NON | Routin | 11/24/2019 | | Results for this | | ORD) | e | 12:26 PM | | procedure are in the | | | | PDT | | results section. | + +--------+ + + + | POC GLUCOSE (NON | Routin | 11/24/2019 | | Results for this | | ORD) | e | 8:09 AM | | procedure are in the | | | | PDT | | results section. | + +--------+ + + + | XR CHEST AP PORTABLE | Routin | 11/24/2019 | | Results for this | | | e | 7:47 AM | | procedure are in the | | | | PDT | | results section. | + +--------+ + + + | BASIC METABOLIC | Routin | 11/24/2019 | | Results for this | | PANEL | e | 6:20 AM | | procedure are in the | | | | PDT | | results section. | + +--------+ + + + | CBC WITH | Routin | 11/24/2019 | | Results for this | | DIFFERENTIAL | e | 6:20 AM | | procedure are in the | | | | PDT | | results section. | + +--------+ + + + | VANCOMYCIN, TROUGH | [place] | 11/23/2019 | | Results for this | | | | 9:40 PM | | procedure are in the | | | | PDT | | results section. | + +--------+ + + + | POC GLUCOSE (NON | Routin | 11/23/2019 | | Results for this | | ORD) | e | 8:39 PM | | procedure are in the | | | | PDT | | results section. | + +--------+ + + + | POC GLUCOSE (NON | Routin | 11/23/2019 | | Results for this | | ORD) | e | 5:01 PM | | procedure are in the | | | | PDT | | results section. | + +--------+ + + + | XR CHEST AP PORTABLE | Routin | 11/23/2019 | | Results for this | | | e | 12:57 PM | | procedure are in the | | | | PDT | | results section. | + +--------+ + + + | POC GLUCOSE (NON | Routin | 11/23/2019 | | Results for this | | ORD) | e | 11:29 AM | | procedure are in the | | | | PDT | | results section. | + +--------+ + + + | MEDICAL CYTOLOGY | Routin | 11/23/2019 | | Results for this | | | e | 10:55 AM | | procedure are in the | | | | PDT | | results section. | + +--------+ + + + | CULTURE, BODY FLUID | Routin | 11/23/2019 | | Results for this | | STERILE | e | 10:55 AM | | procedure are in the | | | | PDT | | results section. | + +--------+ + + + | CT GUIDED CHEST TUBE | Routin | 11/23/2019 | | Results for this | | PLACEMENT | e | 10:54 AM | | procedure are in the | | | | PDT | | results section. | + +--------+ + + + | VANCOMYCIN, TROUGH | [place] | 11/23/2019 | | Results for this | | | | 9:06 AM | | procedure are in the | | | | PDT | | results section. | + +--------+ + + + | POC GLUCOSE (NON | Routin | 11/23/2019 | | Results for this | | ORD) | e | 7:38 AM | | procedure are in the | | | | PDT | | results section. | + +--------+ + + + | POC GLUCOSE (NON | Routin | 11/22/2019 | | Results for this | | ORD) | e | 8:58 PM | | procedure are in the | | | | PDT | | results section. | + +--------+ + + + | POC GLUCOSE (NON | Routin | 11/22/2019 | | Results for this | | ORD) | e | 4:13 PM | | procedure are in the | | | | PDT | | results section. | + +--------+ + + + | POC GLUCOSE (NON | Routin | 11/22/2019 | | Results for this | | ORD) | e | 11:29 AM | | procedure are in the | | | | PDT | | results section. | + +--------+ + + + | POC GLUCOSE (NON | Routin | 11/22/2019 | | Results for this | | ORD) | e | 9:28 AM | | procedure are in the | | | | PDT | | results section. | + +--------+ + + + | MAGNESIUM | Routin | 11/22/2019 | | Results for this | | | e | 5:18 AM | | procedure are in the | | | | PDT | | results section. | + +--------+ + + + | PROTIME INR | Routin | 11/22/2019 | | Results for this | | | e | 5:18 AM | | procedure are in the | | | | PDT | | results section. | + +--------+ + + + | CBC WITH | Routin | 11/22/2019 | | Results for this | | DIFFERENTIAL | e | 5:18 AM | | procedure are in the | | | | PDT | | results section. | + +--------+ + + + | COMPREHENSIVE | Routin | 11/22/2019 | | Results for this | | METABOLIC PANEL | e | 5:18 AM | | procedure are in the | | | | PDT | | results section. | + +--------+ + + + | BASIC METABOLIC | STAT | 11/21/2019 | | Results for this | | PANEL | | 7:35 PM | | procedure are in the | | | | PDT | | results section. | + +--------+ + + + from Last 3 Months Results LABS - EXTERNAL SCAN (12/06/2019 12:00 AM PDT) + + + | Narrative | Performed At | + + + | Ordered by an | | | unspecified provider. | | + + + CBC with Manual Differential (12/06/2019) + + + + + + | Component | Value | Ref Range | Performed | Pathologist | | | | | At | Signature | + + + + + + | WBC | 6.8 | 4.5 - 11.0 K/uL | EXTERNAL | | | | | | LAB | | + + + + + + | RBC COUNT. | 3.4 (A) | 4.2 - 5.4 M/uL | EXTERNAL | | | | | | LAB | | + + + + + + | Hemoglobin | 9.2 (A) | 11.5 - 15.5 | EXTERNAL | | | | | g/dL | LAB | | + + + + + + | Hematocrit | 29.5 (A) | 36.0 - 46.0 % | EXTERNAL | | | | | | LAB | | + + + + + + | MCV | 86.2 | 80 - 100 fl | EXTERNAL | | | | | | LAB | | + + + + + + | MCH | 26.7 | 25.0 - 34.0 pg | EXTERNAL | | | | | | LAB | | + + + + + + | MCHC | 31.0 (A) | 32.0 - 36.0 | EXTERNAL | | | | | g/dL | LAB | | + + + + + + | RDW | 24.8 (A) | 11.5 - 15.5 % | EXTERNAL | | | | | | LAB | | + + + + + + | Platelet | 349 | 150 - 450 K/uL | EXTERNAL | | | Count | | | LAB | | | Plasma | | | | | + + + + + + | % | 64 | 40 - 70 % | EXTERNAL | | | Neutrophils | | | LAB | | | , Body | | | | | | Fluid | | | | | + + + + + + | % | 16.0 (A) | 25 - 45 % | EXTERNAL | | | Lymphocytes | | | LAB | | + + + + + + | Monocyte % | 10.0 (A) | 0 - 8 % | EXTERNAL | | | | | | LAB | | + + + + + + | Eosinophils | 6.0 (A) | 0 - 3 % | EXTERNAL | | | % | | | LAB | | + + + + + + | Basophils % | 4.0 (A) | 0 - 2 % | EXTERNAL | | | | | | LAB | | + + + + + + | Neutrophils | 4.4 | 1.8 - 7.7 K/uL | EXTERNAL | | | , Absolute | | | LAB | | + + + + + + | Absolute | 1.1 | 1.0 - 4.8 K/uL | EXTERNAL | | | Lymphocytes | | | LAB | | + + + + + + | Absolute | 0.7 | 0.0 - 0.8 K/uL | EXTERNAL | | | Monocytes | | | LAB | | + + + + + + | Eosinophils | 0.4 | 0.0 - 0.45 K/uL | EXTERNAL | | | , Absolute | | | LAB | | + + + + + + | Basophils, | 0.3 (A) | 0.0 - 0.20 K/uL | EXTERNAL | | | Absolute | | | LAB | | + + + + + + | Platelet | NORMAL | NORMAL | EXTERNAL | | | Estimate | | | LAB | | + + + + + + + + | Specimen | + + | Blood | + + + +---------+ + + | Performing | Address | City/State/Zipcode | Phone Number | | Organization | | | | + +---------+ + + | EXTERNAL LAB | | | | + +---------+ + + Comprehensive Metabolic Panel (12/06/2019)Only the most recent of 5 results within the time period is included. + + + + + + | Component | Value | Ref Range | Performed | Pathologist | | | | | At | Signature | + + + + + + | Na | 141 | 136 - 145 | EXTERNAL | | | | | mmol/L | LAB | | + + + + + + | K | 4.0 | 3.5 - 4.5 | EXTERNAL | | | | | mmol/L | LAB | | + + + + + + | Cl | 104 | 98 - 107 mmol/L | EXTERNAL | | | | | | LAB | | + + + + + + | Carbon | 29 | 22 - 32 mmol/L | EXTERNAL | | | dioxide | | | LAB | | + + + + + + | Anion Gap | 8 | 5 - 12 mmol/L | EXTERNAL | | | | | | LAB | | + + + + + + | Glucose | 198 (A) | 84 - 110 mg/dL | EXTERNAL | | | | | | LAB | | + + + + + + | BUN | 22 (A) | 10 - 20 mg/dL | EXTERNAL | | | | | | LAB | | + + + + + + | CREATININE | 1.66 (A) | 0.44 - 1.03 | EXTERNAL | | | (PAML) | | mg/dL | LAB | | + + + + + + | GFR | 32 (A) | 60 - 140 mL/min | EXTERNAL | | | ESTIMATE | | | LAB | | | (REF) | | | | | + + + + + + | Calcium | 8.8 | 8.2 - 10.6 | EXTERNAL | | | | | mg/dL | LAB | | + + + + + + | CORRECTED | 9.7 | 8.2 - 10.6 | EXTERNAL | | | CALCIUM | | mg/dL | LAB | | + + + + + + | Protein, | 6.9 | 6.0 - 8.0 gm/dL | EXTERNAL | | | Total | | | LAB | | + + + + + + | Albumin | 2.9 (A) | 3.5 - 5.0 gm/dL | EXTERNAL | | | | | | LAB | | + + + + + + | Globulin | 4.0 (A) | 2.3 - 3.5 gm/dL | EXTERNAL | | | | | | LAB | | + + + + + + | A/G Ratio | 0.7 (A) | 1.10 - 1.80 | EXTERNAL | | | | | RATIO | LAB | | + + + + + + | Bilirubin | 0.2 (A) | 0.3 - 1.2 mg/dL | EXTERNAL | | | Total | | | LAB | | + + + + + + | AST | 13 | 5 - 34 U/L | EXTERNAL | | | | | | LAB | | + + + + + + | ALT | 11 | 0 - 55 U/L | EXTERNAL | | | | | | LAB | | + + + + + + | Alkaline | 57 | 40 - 150 U/L | EXTERNAL | | | Phosphatase | | | LAB | | + + + + + + + + | Specimen | + + | Blood | + + + +---------+ + + | Performing | Address | City/State/Zipcode | Phone Number | | Organization | | | | + +---------+ + + | EXTERNAL LAB | | | | + +---------+ + + POC Glucose (11/29/2019 11:57 AM PDT)Only the most recent of 33 results within the time per iod is included. + + + + + + | Component | Value | Ref Range | Performed | Pathologist | | | | | At | Signature | + + + + + + | Glucose, | 178 (H)Comment: Testing | 65 - 99 mg/dL | [facility] | | | POC | performed at [facility];[address] | | LABORATORY | | | | [address];[place], [place] | | | | | | [address] | | | | + + + + + + + + | Specimen | + + | | + + + + + + + | Performing | Address | City/State/Zipcode | Phone Number | | Organization | | | | + + + + + | [facility] | [address] | [place] [address] | [phone] | + + + + + XR Chest Inspiration and Expiration (11/28/2019 10:45 AM PDT)Only the most recent of 2 resu lts within the time period is included. + + | Specimen | + + | | + + + + + | Impressions | Performed At | + + + | 1. Status post right chest tube removal without pneumothorax. 2. | [facility] | | Small right pleural effusion Signed by: Hugh Zhou, | | | Catalino Sign Date/Time: 11/28/2019 10:54 AM | | + + + + + + | Narrative | Performed At | + + + | XR CHEST INSPIRATION AND EXPIRATION CLINICAL INFORMATION: | [facility] | | Post chest tube removal. COMPARISON: XR CHEST INSPIRATION AND | | | EXPIRATION (11/28/2019); XR CHEST 1 VIEW (11/27/2019); XR CHEST AP | | | PORTABLE (11/24/2019); FINDINGS: There has been interval removal | | | of a right-sided chest tube. A right upper extremity peripherally | | | inserted central catheter terminating at the superior cavoatrial | | | junction is unchanged. A small posterior layering right pleural | | | effusion is present. Heart, lungs and vessels normal. No | | | pneumothorax, pleural effusion or adenopathy. No significant bone | | | abnormality. | | + + + + + | Procedure Note | + + | PorfirioJorge Luis alexander Results In - 11/28/2019 10:57 AM PDT | | XR CHEST INSPIRATION AND EXPIRATION | | | | CLINICAL INFORMATION: | | Post chest tube removal. | | | | COMPARISON: | | XR CHEST INSPIRATION AND EXPIRATION (11/28/2019); XR CHEST 1 VIEW | | (11/27/2019); XR CHEST AP PORTABLE (11/24/2019); | | | | FINDINGS: | | There has been interval removal of a right-sided chest tube. A right | | upper extremity peripherally inserted central catheter terminating at | | the superior cavoatrial junction is unchanged. A small posterior | | layering right pleural effusion is present. Heart, lungs and vessels | | normal. No pneumothorax, pleural effusion or adenopathy. No significant | | bone abnormality. | | | | IMPRESSION: | | 1. Status post right chest tube removal without pneumothorax. | | 2. Small right pleural effusion | | | | | | | | Signed by: Hugh Zhou David | | Sign Date/Time: 11/28/2019 10:54 AM | + + + +---------+ + + | Performing | Address | City/State/Zipcode | Phone Number | | Organization | | | | + +---------+ + + | [facility] | | | | + +---------+ + + CBC with Differential (11/28/2019 4:04 AM PDT)Only the most recent of 6 results within the time period is included. + + + + + + | Component | Value | Ref Range | Performed | Pathologist | | | | | At | Signature | + + + + + + | WBC | 8.54 | 3.80 - 11.00 | [facility] | | | | | K/uL | LABORATORY | | + + + + + + | Red Blood | 3.24 (L) | 3.70 - 5.10 | [facility] | | | Cells | | M/uL | LABORATORY | | + + + + + + | Hemoglobin | 8.4 (L) | 11.3 - 15.5 | [facility] | | | | | g/dL | LABORATORY | | + + + + + + | Hematocrit | 28.5 (L) | 34.0 - 46.0 % | [facility] | | | | | | LABORATORY | | + + + + + + | MCV | 88.0 | 80.0 - 100.0 fl | [facility] | | | | | | LABORATORY | | + + + + + + | MCH | 25.9 (L) | 27.0 - 34.0 pg | [facility] | | | | | | LABORATORY | | + + + + + + | MCHC | 29.5 (L) | 32.0 - 35.5 | [facility] | | | | | g/dL | LABORATORY | | + + + + + + | RDW-SD | 74.8 (H) | 37 - 53 fl | [facility] | | | | | | LABORATORY | | + + + + + + | Platelet | 501 (H) | 150 - 400 K/uL | [facility] | | | Count | | | LABORATORY | | + + + + + + | MPV | 10.0Comment: NO NORMAL | fl | [facility] | | | | RANGE ESTABLISHED | | LABORATORY | | + + + + + + | Diff Type | AUTOMATED | | [facility] | | | | | | LABORATORY | | + + + + + + | % nRBC | 0.0 | 0 /100WBC | [facility] | | | | | | LABORATORY | | + + + + + + | % | 65.60 | % | [facility] | | | Neutrophils | | | LABORATORY | | + + + + + + | % | 18.40 | % | [facility] | | | Lymphocytes | | | LABORATORY | | + + + + + + | Monocyte % | 9.50 | % | [facility] | | | | | | LABORATORY | | + + + + + + | Eosinophils | 3.90 | % | [facility] | | | % | | | LABORATORY | | + + + + + + | Basophils % | 0.60 | % | [facility] | | | | | | LABORATORY | | + + + + + + | IMMATURE | 2.00 | % | [facility] | | | GRANULOCYTE | | | LABORATORY | | + + + + + + | Neutrophils | 5.61 | 1.90 - 7.40 | [facility] | | | , Absolute | | K/uL | LABORATORY | | + + + + + + | Absolute | 1.57 | 1.00 - 3.90 | [facility] | | | Lymphocytes | | K/uL | LABORATORY | | + + + + + + | Absolute | 0.81 (H) | 0.00 - 0.80 | [facility] | | | Monocytes | | K/uL | LABORATORY | | + + + + + + | Eosinophils | 0.33 | 0.00 - 0.50 | [facility] | | | , Absolute | | K/uL | LABORATORY | | + + + + + + | Basophils, | 0.05 | 0.00 - 0.10 | [facility] | | | Absolute | | K/uL | LABORATORY | | + + + + + + | IMMATURE | 0.17 (H) | 0.00 - 0.07 | [facility] | | | GRANS AB | | K/uL | LABORATORY | | + + + + + + | Platelet | INCREASED | | [facility] | | | Estimate | | | LABORATORY | | + + + + + + | RBC | 3+Comment: ANISONORMAL | | [facility] | | | Morphology | PLT MORPHTesting | | LABORATORY | | | | performed at [facility];[address] | | | [address];[place] | | | | | | [address] | | | | | | | | | | + + + + + + + + | Specimen | + + | Blood | + + + + + + + | Performing | Address | City/State/Zipcode | Phone Number | | Organization | | | | + + + + + | [facility] | [address] | [place] [address] | [phone] | + + + + + XR Chest 1 Vw (11/27/2019 5:50 AM PDT) + + | Specimen | + + | | + + + + + | Narrative | Performed At | + + + | CHEST ONE VIEW CLINICAL INFORMATION: Follow up pleural | [facility] | | effusion. COMPARISON: XR CHEST AP PORTABLE (11/24/2019); XR CHEST | | | AP PORTABLE (11/23/2019); CT GUIDED CHEST TUBE PLACEMENT (11/23/2019); | | | FINDINGS/IMPRESSION: 1. Right lateral pigtail chest drain noted. | | | 2. Stable mild pleural density along the inferolateral right | | | hemithorax. Slightly improved inflation of the right lung. | | | Persistent mild streaky parenchymal density right lung base. No | | | pneumothorax. Mild interstitial prominence bilaterally, right greater | | | left. Minimal linear platelike atelectasis left base. Probable | | | minimal left pleural fluid. 3. Cardiomediastinal contours are | | | stable. 4. No pneumothorax. Signed by: Hugh Myers, | | | Marcel Sign Date/Time: 11/27/2019 6:21 AM | | + + + + + | Procedure Note | + + | Porfirio, Rad Results In - 11/27/2019 6:25 AM PDT | | CHEST ONE VIEW | | | | CLINICAL INFORMATION: | | Follow up pleural effusion. | | | | COMPARISON: | | XR CHEST AP PORTABLE (11/24/2019); XR CHEST AP PORTABLE (11/23/2019); CT | | GUIDED CHEST TUBE PLACEMENT (11/23/2019); | | | | FINDINGS/IMPRESSION: | | 1. Right lateral pigtail chest drain noted. | | 2. Stable mild pleural density along the inferolateral right | | hemithorax. Slightly improved inflation of the right lung. Persistent | | mild streaky parenchymal density right lung base. No pneumothorax. | | Mild interstitial prominence bilaterally, right greater left. Minimal | | linear platelike atelectasis left base. Probable minimal left pleural | | fluid. | | 3. Cardiomediastinal contours are stable. | | 4. No pneumothorax. | | | | | | | | | | | | Signed by: Hugh Myers, Marcel | | Sign Date/Time: 11/27/2019 6:21 AM | + + + +---------+ + + | Performing | Address | City/State/Zipcode | Phone Number | | Organization | | | | + +---------+ + + | [facility] | | | | + +---------+ + + Lactic Acid (11/26/2019 8:22 PM PDT) + + + + + + | Component | Value | Ref Range | Performed | Pathologist | | | | | At | Signature | + + + + + + | Lactate, | 1.3Comment: Testing | 0.4 - 2.0 | [facility] | | | Serum | performed at [facility];[address] | mmol/L | LABORATORY | | | | [address];[place], [place] | | | | | | [address] | | | | + + + + + + + + | Specimen | + + | Blood | + + + + + + + | Performing | Address | City/State/Zipcode | Phone Number | | Organization | | | | + + + + + | [facility] | [address] | [place] [address] | [phone] | + + + + + Basic Metabolic Panel (11/26/2019 7:06 AM PDT)Only the most recent of 4 results within the time period is included. + + + + + + | Component | Value | Ref Range | Performed | Pathologist | | | | | At | Signature | + + + + + + | Na | 139 | 135 - 145 | [facility] | | | | | mmol/L | LABORATORY | | + + + + + + | K | 4.5 | 3.5 - 4.9 | [facility] | | | | | mmol/L | LABORATORY | | + + + + + + | Cl | 109 | 99 - 109 mmol/L | [facility] | | | | | | LABORATORY | | + + + + + + | CO2 | 23 | 23 - 32 mmol/L | [facility] | | | | | | LABORATORY | | + + + + + + | Anion Gap | 12 | 5 - 20 mmol/L | [facility] | | | | | | LABORATORY | | + + + + + + | Glucose | 203 (H) | 65 - 99 mg/dL | [facility] | | | | | | LABORATORY | | + + + + + + | BUN | 16 | 8 - 25 mg/dL | [facility] | | | | | | LABORATORY | | + + + + + + | Creatinine | 1.40 (H) | 0.50 - 1.00 | [facility] | | | | | mg/dL | LABORATORY | | + + + + + + | BUN/Creatin | 11 | | [facility] | | | ine Ratio | | | LABORATORY | | + + + + + + | Calcium | 8.9 | 8.5 - 10.5 | [facility] | | | | | mg/dL | LABORATORY | | + + + + + + | Estimated | 39 (L)Comment: GFR <60: | >60 | [facility] | | | GFR | CHRONIC KIDNEY DISEASE, | mL/min/1.73m2 | LABORATORY | | | | IF FOUND OVER A 3 MONTH | | | | | | PERIOD.GFR <15: KIDNEY | | | | | | FAILURE.FOR | | | | | | AMERICANS, MULTIPLY THE | | | | | | CALCULATED GFR BY | | | | | | 1.210.This eGFR is | | | | | | calculated using the | | | | | | MDRD IDMS traceable | | | | | | equation.Testing | | | | | | performed at [facility], [address] | | | | | [facility], | | | | | | [place] [address] | | | | + + + + + + + + | Specimen | + + | Blood | + + + + + + + | Performing | Address | City/State/Zipcode | Phone Number | | Organization | | | | + + + + + | [facility] | [address] | [place] [address] | [phone] | + + + + + DIAGNOSTIC REPORT - EXTERNAL SCAN (11/26/2019 12:00 AM PDT) + + + | Narrative | Performed At | + + + | Ordered by an | | | unspecified provider. | | + + + XR Chest AP Portable (11/24/2019 7:47 AM PDT)Only the most recent of 2 results within the time period is included. + + | Specimen | + + | | + + + + + | Impressions | Performed At | + + + | Stable positioning of right-sided pigtail catheter. The amount of | [facility] | | right-sided pleural fluid is unchanged. Signed by: Addis | | | Calderon Reese Date/Time: 11/24/2019 7:54 AM | | + + + + + + | Narrative | Performed At | + + + | CHEST PORTABLE ONE VIEW CLINICAL INFORMATION: Pleural | [facility] | | effusion. COMPARISON: XR CHEST AP PORTABLE (11/23/2019); CT GUIDED | | | CHEST TUBE PLACEMENT (11/23/2019); CT CHEST WITHOUT CONTRAST | | | (11/21/2019); FINDINGS: Cardiac silhouette is stable in size. No | | | mediastinal widening or shift. There continues to be some blunting | | | of the right lateral costophrenic angle from some pleural fluid. | | | Positioning of the right pigtail catheter is stable. There is no | | | pneumothorax. The pulmonary markings are normal in caliber. | | | Perihilar opacities are greater on the right side than left, | | | unchanged. | | + + + + + | Procedure Note | + + | Porfirio, Rad Results In - 11/24/2019 7:57 AM PDT | | CHEST PORTABLE ONE VIEW | | | | CLINICAL INFORMATION: | | Pleural effusion. | | | | COMPARISON: | | XR CHEST AP PORTABLE (11/23/2019); CT GUIDED CHEST TUBE PLACEMENT | | (11/23/2019); CT CHEST WITHOUT CONTRAST (11/21/2019); | | | | FINDINGS: | | Cardiac silhouette is stable in size. No mediastinal widening or | | shift. There continues to be some blunting of the right lateral | | costophrenic angle from some pleural fluid. Positioning of the right | | pigtail catheter is stable. There is no pneumothorax. The pulmonary | | markings are normal in caliber. Perihilar opacities are greater on the | | right side than left, unchanged. | | | | IMPRESSION: | | Stable positioning of right-sided pigtail catheter. The amount of | | right-sided pleural fluid is unchanged. | | | | | | | | Signed by: Hugh Mancini, Calderon | | Sign Date/Time: 11/24/2019 7:54 AM | + + + +---------+ + + | Performing | Address | City/State/Zipcode | Phone Number | | Organization | | | | + +---------+ + + | [facility] | | | | + +---------+ + + Vancomycin, Trough (11/23/2019 9:40 PM PDT)Only the most recent of 2 results within the period is included. + + + + + + | Component | Value | Ref Range | Performed | Pathologist | | | | | At | Signature | + + + + + + | Vancomycin, | 25.9 ()Comment: 15 to | 10 - 20 ug/mL | [facility] | | | Trough | 20 ug/mL for meningitis, | | LABORATORY | | | | osteomyelitis, | | | | | | endocarditis, sepsis, | | | | | | orhealthcare associated | | | | | | pneumonia, or an ALIA | | | | | | equal to or greater than | | | | | | 1.0 ug/mLCALLED NURSING | | | | | | UNITREAD BACK RESULTS | | | | | | VERIFIEDCINDY RN IN 7RP | | | | | | AT 2307 BY TDTesting | | | | | | performed at [facility];[address];[place], [place] | | | | | | [address] | | | | + + + + + + + + | Specimen | + + | Blood | + + + + + + + | Performing | Address | City/State/Zipcode | Phone Number | | Organization | | | | + + + + + | [facility] | [address] | [place] [address] | [phone] | + + + + + Culture, Body Fluid Sterile (11/23/2019 10:55 AM PDT) + + + + + + | Component | Value | Ref Range | Performed | Pathologist | | | | | At | Signature | + + + + + + | Gram Stain | NO CELLS OR ORGANISMS | | [facility] | | | Result | SEEN | | LABORATORY | | + + + + + + | RESULT | NO GROWTH 4 DAYS | | [facility] | | | | | | LABORATORY | | + + + + + + | RESULT | Testing performed at | | [facility] | | | | [facility]CL, [address] | | LABORATORY | | | | [place] | | | | | | [id number]: Testing | | | | | | performed at [facility], [address] | | [address], | | | | | | [place] [address] | | | | + + + + + + + + | Specimen | + + | Body Fluid - Pus | | specimen (specimen) | + + + + + + + | Performing | Address | City/State/Zipcode | Phone Number | | Organization | | | | + + + + + | [facility] | [address] | [place] [address] | [phone] | + + + + + Medical Cytology (11/23/2019 10:55 AM PDT) + + | Specimen | + + | Body Fluid - Pus | | specimen (specimen) | + + + + + | Narrative | Performed At | + + + | ORDERING | [facility] | | PHYSICIAN:Calderon Leggett MD PATIENT NAME:PHOENIX DANGELO MGENDER: | [facility] | | F : 1965 SPECIMEN(S): A PLEURAL FLUID, RIGHT GROSS | | | DESCRIPTION: 2 ML OF CLOUDY, RED FLUID IN CYTOLOGY FIXATIVE CLINICAL | | | HISTORY: NO CLINICAL DATA PROVIDED LABORATORY PREPARATIONS: 1 | | | MONOLAYER, 1 CELL BLOCK CYTOLOGIC INTERPRETATION:Pleural | | | effusion:Negative for malignant cells. DESCRIPTION:The preparations | | | contain mesothelial cells, rare inflammatory cells, and acellular | | | proteinaceous material. Atypical cytologic findings are not | | | encountered. SPECIMEN ADEQUACY:Satisfactory for Evaluation PERFORMING | | | LABORATORY:Technical preparation was performed by [facility], | | | [address] [address] (Stakes Player: | | | Sebas Tolliver D.O.; CLIA#: [id number]).Professional interpretation | | | was performed by [facility], [facility], [address] | | | [place] [address] (Stakes Player: Leif | | | Hugh Layne; CLIA#: [id number]).6 Diagnostician: Hector Bryant | | | [facility])CytotechnologistDiagnostician: Leif Layne | | | MDPathologistElectronically Signed 11/24/2019 | | | | | |DESCRIPTION: | | |The preparations contain mesothelial cells, rare inflammatory cells, and acellular proteina ceous material. Atypical cytologic findings are not encountered. | | | | | |SPECIMEN ADEQUACY: | | |Satisfactory for Evaluation | | | | | |PERFORMING LABORATORY: | | |Technical preparation was performed by [facility], [address] [place] [address] (Stakes Player: Sebas Tolliver D.O.; CLIA#: [id number]). | | |Professional interpretation was performed by [facility], [facility], [address] [place] [address] (Stakes Player: Leif Layne M.D.; CLIA#: [id number]).6 | | | | | |Diagnostician: Hector Bryant CT ([facility]) | | |Hris Developer | | |Diagnostician: Leif Layne MD | | |Pathologist | | |Electronically Signed 11/24/2019 | | | | | | | | + + + + +---------+ + + | Performing | Address | City/State/Zipcode | Phone Number | | Organization | | | | + +---------+ + + | [facility] | | | | | [facility] | | | | + +---------+ + + CT Guided Chest Tube Placement (11/23/2019 10:54 AM PDT) + + | Specimen | + + | | + + + + + | Impressions | Performed At | + + + | Uncomplicated drainage of right pleural fluid collection. Sample | [facility] | | of pleural fluid is obtained and sent for laboratory analysis per the | | | clinician's orders. A 12 Swedish locking pigtail catheter is placed. | | | Signed by: Hugh Leggett Richard Sign Date/Time: | | | 11/23/2019 11:36 AM | | + + + + + + | Narrative | Performed At | + + + | CT GUIDED RIGHT CHEST TUBE CLINICAL INFORMATION: Empyema. | [facility] | | PROCEDURE: Prior to the procedure, risks and benefits were | | | explained to the patient and informed written and verbal consent | | | obtained. Patient was placed on the CT gantry and initial localizing | | | scans were performed. Using lidocaine for local anesthesia and | | | intravenous sedation, the region is punctured under CT guidance. An | | | 0.35 guide wire is placed into the right pleural space and the tract | | | dilated. A catheter is then placed over the wire. Patient tolerated | | | the procedure well. No immediate complications. Conscious | | | sedation was administered. The nurse administered 1 mg Versed and | | | 50 mcg fentanyl ns during the examination and monitored blood | | | pressure, heart rate, and pulse oximeter. Physician intraservice time | | | of 20 minutes. Estimated Blood Loss: Less than 50 cc's. At | | | least one of the following CT dose optimization techniques were used: | | | Automated exposure control; Adjustment of mA and/or kV according to | | | patient size; Use of iterative reconstruction technique. | | + + + + + | Procedure Note | + + | Porfirio, Rad Results In 11/23/2019 11:40 AM PDT | | CT GUIDED RIGHT CHEST TUBE | | | | CLINICAL INFORMATION: | | [facility]. | | | | PROCEDURE: | | Prior to the procedure, risks and benefits were explained to the | | patient and informed written and verbal consent obtained. Patient was | | placed on the CT gantry and initial localizing scans were performed. | | Using lidocaine for local anesthesia and intravenous sedation, the | | region is punctured under CT guidance. An 0.35 guide wire is placed | | into the right pleural space and the tract dilated. A catheter is then | | placed over the wire. Patient tolerated the procedure well. No | | immediate complications. | | | | Conscious sedation was administered. The nurse administered 1 mg | | Versed and 50 mcg fentanyl ns during the examination and monitored | | blood pressure, heart rate, and pulse oximeter. Physician intraservice | | time of 20 minutes. | | | | Estimated Blood Loss: Less than 50 cc's. | | | | At least one of the following CT dose optimization techniques were | | used: Automated exposure control; Adjustment of mA and/or kV according | | to patient size; Use of iterative reconstruction technique. | | | | IMPRESSION: | | Uncomplicated drainage of right pleural fluid collection. Sample of | | pleural fluid is obtained and sent for laboratory analysis per the | | clinician's orders. A 12 Swedish locking pigtail catheter is placed. | | | | | | | | Signed by: Hugh Leggett Richard | | Sign Date/Time: 11/23/2019 11:36 AM | + + + +---------+ + + | Performing | Address | City/State/Zipcode | Phone Number | | Organization | | | | + +---------+ + + | [facility] IMAGING | | | | + +---------+ + + Protime INR (11/22/2019 5:18 AM PDT) + + + + + + | Component | Value | Ref Range | Performed | Pathologist | | | | | At | Signature | + + + + + + | INR | 1.2Comment: REFERENCE | | [facility] | | | | RANGE:0.9 - 1.2 | | LABORATORY | | | | NON-ANTICOAGULATED2.0 | | | | | | - 3.0 ALL OTHER | | | | | | THERAPEUTIC | | | | | | INDICATIONS2.5 - 3.5 | | | | | | MECHANICAL HEART VALVES, | | | | | | RECURRENT OR SYSTEMIC | | | | | | EMBOLISMTesting | | | | | | performed at [facility];[address] | | | | | | [address];[place] | | | | | | [address] | | | | + + + + + + + + | Specimen | + + | Blood | + + + + + + + | Performing | Address | City/State/Zipcode | Phone Number | | Organization | | | | + + + + + | [facility] | [address] | [place] [address] | [phone] | + + + + + Magnesium (11/22/2019 5:18 AM PDT) + + + + + + | Component | Value | Ref Range | Performed | Pathologist | | | | | At | Signature | + + + + + + | Magnesium | 1.3 (L)Comment: Testing | 1.7 - 2.4 mg/dL | [facility] | | | | performed at [facility];[address] | | LABORATORY | | | | [address];[place] | | | | | | [address] | | | | + + + + + + + + | Specimen | + + | Blood | + + + + + + + | Performing | Address | City/State/Zipcode | Phone Number | | Organization | | | | + + + + + | [facility] | [address] | [place] [address] | [phone] | + + + + + from Last 3 Months Insurance + +--------+ +--------+ +---------+--------+ | Payer | Benefi | Subscriber | Effect | Phone | Address | Type | | | t Plan | ID | fernando | | | | | | / | | Dates | | | | | | Group | | | | | | + +--------+ +--------+ +---------+--------+ | [employer] | MOD[employer] | [id number] | 06/28/19 | [phone] | | Medica | | MEDICAID HMO | HEALTH | | 13-Pre | 1 | | id | | | MDCD | | sent | | | | | | [place] | | | | | | + +--------+ +--------+ +---------+--------+ | [employer] | MODA | [id number] | | [phone] | | Medica | | MEDICAID HMO | HEALTH | | 020-Pr | 1 | | id | | | MDCD | | esent | | | | | | [place] | | | | | | + +--------+ +--------+ +---------+--------+ + +--------+ +--------+ + + | Guarantor Name | Accoun | Relation to | Date | Phone | Billing Address | | | t Type | Patient | of | | | | | | | | | | + +--------+ +--------+ + + | Phoenix Dangelo | Person | Self [birth year] | [address] | | | al/Fam | | 1964 | [phone] | [place], [place] | | | charlie | | | 2 (Home) | [address] | + +--------+ +--------+ + + | Phoenix Dangelo M | Person | Self | [birth year] | [address] | | | al/Fam | | 1964 | [phone] | [place], [place] | | | charlie | | | 2 (Home) | [address] | + +--------+ +--------+ + + Advance Directives + + + + + | Type | Date Recorded | Patient | Explanation | | | | Federal Agent | | + + + + + | Power of | | | | | Retrimmer | | | | + + + + + | Advance | 11/22/2019 3:47 | | | | Directive | PM | | | + + + + + + + + + + | Code Status | Date | Date | Comments | | | Activated | Inactivated | | + + + + + | Full Code | 11/21/2019 | 11/29/2019 | | | | 6:45 PM | 4:30 PM | | + + + + +
--- OUTSIDE RECORDS SUMMARY | ~2020-02-01 | XMS | Encounter Summary ---
Demographics + + + | Address | [address] | | | [place] [address] | + + + | Home Phone | | + + + | Preferred Language | Unknown | + + + | Marital Status | Legally | + + + | Jewish Affiliation | Unknown | + + + | Race | Unknown | + + + | Ethnic Group | Unknown | + + + Author + + + | Author | [facility] | | | and [place] | + + + | Organization | [facility] | | [...] Team Providers + +------+ + | Care Match Up Person Name | Role | Phone | + +------+ + PCP | Unavailable | + +------+ + Encounter Details +--------+ + + + + | Date | Type | Department | Care Team | Description | +--------+ + + + + | 01/06/ | Emergency | [facility] | Greyson Hernandez, | | | 2012 - | | [facility] CENTER | MD [address] | | | | | EMERGENCY CENTER | [place] [address] | | | 01/07/ | | [address] | [phone] | | | 2012 | | [place], [place] | | | | | | [address] | | | | | | [phone] | | | +--------+ + + + [...]
--- OUTSIDE RECORDS SUMMARY | ~2020-02-01 | XMS | Encounter Summary ---
Demographics + + + | Address | [address] | | | [place] [address] | + + + | Home Phone | | + + + | Preferred Language | Unknown | + + + | Marital Status | Legally | + + + | Sabianism Affiliation | Unknown | + + + | Race | Unknown | + + + | Ethnic Group | Unknown | + + + Author + + + | Author | [facility] | | | and [place] | + + + | Organization | [facility] | | | and [...] Team Providers + +------+ + | Care Bracelet Maker Novelty Name | Role | Phone | + [...] + + | 12/04/ | Office | [facility] | Andrew Cross DO | Empyema of pleural | | 2020 | Visit | INFECTIOUS DISEASE | [address] | space ([facility]) (Primary | | | | [address] | [place] [address] | Dx); MRSA infection | | | | [place], [place] | [phone] | | | | | [address] | | (methicillin-resista | | | | [phone] | | nt Staphylococcus | | | [...]
--- OUTSIDE RECORDS SUMMARY | ~2020-02-01 | XMS | Encounter Summary ---
Demographics + + + | Address | [address] | | | [place] [address] | + + + | Home Phone | | + + + | Preferred Language | Unknown | + + + | Marital Status | Legally | + + + | Mu-Ism Affiliation | Unknown | + + + | Race | Unknown | + + + | Ethnic Group | Unknown | + + + Author + + + | Author | [facility] | | | and [place] | + + + | Organization | [facility] | | | [...] Team Providers + +------+ + | Care Medical Record Consultant Name | Role | Phone | + +------+ + | Roberth Gaspar MD | PCP | | + +------+ + Encounter Details +--------+ + + + + | Date | Type | Department | Care Team | Description | +--------+ + + + + | 09/12/ | Documentati | [facility] | [place], | | | 2019 | on | NEPHROLOGY [place] | [facility] | | | | | [address] | Numerologist | | | | | [address] | | | | | | [place], [place] | | | | | | [address] | | | | | | [phone] | | | +--------+ + + + [...] | CBC NO DIFFERENTIAL | Routin | 08/04/2019 | | Results for this | | | e | | | procedure are in the | | | | | | results section. | + +--------+ + + + | IRON AND IRON | Routin | 08/04/2019 | | Results for this | | BINDING CAPACITY | e | | | procedure are in the | | | | | | results section. | + +--------+ + + + | T4, FREE | Routin | 08/04/2019 | | Results for this | | | e | | | procedure are in the | | | | | | results section. | + +--------+ + + + | COMPREHENSIVE | Routin | 08/04/2019 | | Results for this | | METABOLIC PANEL | e | | | procedure are in the | | | | | | results section. | + +--------+ + + + documented in this encounter Results T4, Free (08/04/2019) + + + + + + | Component | Value | Ref Range | Performed | Pathologist | | | | | At | Signature | + + + + + + | TSH, | 5.17 (A) | 0.35 - 4.94 | | | | External | | | | | + + + + + + + + | Specimen | + + | Blood | + + Comprehensive Metabolic Panel (08/04/2019) + + + + + + | Component | Value | Ref Range | Performed | Pathologist | | | | | At | Signature | + + + + + + | Na | 137 | 136 - 145 | | | | | | mmol/L | | | + + + + + + | K | 4.0 | 3.5 - 4.5 | | | | | | mmol/L | | | + + + + + + | Cl | 99 | 98 - 107 mmol/L | | | + + + + + + | CO2 | 24 | 22 - 32 mmol/L | | | + + + + + + | Anion Gap | 14 (A) | 5 - 12 mmol/L | | | + + + + + + | Glucose | 167 (A) | 84 - 110 mg/dL | | | + + + + + + | BUN | 16 | 10 - 20 mg/dL | | | + + + + + + | Creatinine | 1.39 (A) | 0.44 - 1.03 | | | | | | mg/dL | | | + + + + + + | Estimated | 40.0 (A) | 60.0 - 140.0 | | | | GFR | | mL/min/1.73m2 | | | + + + + + + | Calcium | 10.0 | 8.2 - 10.6 | | | + + + + + + | Protein, | 8.1 (A) | 6.0 - 8.0 | | | | Total | | | | | + + + + + + | Albumin | 4.2 | 3.5 - 5.0 g/dL | | | + + + + + + | Globulin | 3.9 (A) | 2.3 - 3.5 | | | + + + + + + | Albumin/Rebecca | 1.1 | 1.10 - 1.80 | | | | bulin Ratio | | | | | + + + + + + | BILIRUBIN, | 0.4 | 0.3 - 1.2 | | | | TOTAL | | | | | + + + + + + | AST | 11 | 5 - 34 U/L | | | + + + + + + | ALT | 12 | 0 - 55 U/L | | | + + + + + + | ALP, | 102 | 40 - 150 | | | | External | | | | | + + + + + + + + | Specimen | + + | Blood | + + Iron and Iron Binding Capacity (08/04/2019) + + + + + + | Component | Value | Ref Range | Performed | Pathologist | | | | | At | Signature | + + + + + + | Ferritin, | 1.00 (A) | 4.63 - 204 | | | | External | | | | | + + + + + + | Iron | 89 | 25 - 156 ug/dL | | | + + + + + + | Iron | 19 | 15 - 50 % | | | | Saturation | | | | | + + + + + + | TIBC | 459 (A) | 228 - 428 ug/dL | | | + + + + + + + + | Specimen | + + | Blood | + + CBC with Manual Differential (08/04/2019) + + + + + + | Component | Value | Ref Range | Performed | Pathologist | | | | | At | Signature | + + + + + + | WBC | 13.9 (A) | 4.5 - 11.0 | | | + + + + + + | Red Blood | 4.30 | 4.20 - 5.40 | | | | Cells | | M/uL | | | + + + + + + | Hemoglobin | 7.7 (A) | 11.5 - 15.5 | | | + + + + + + | Hematocrit, | 27.1 (A) | 36.0 - 46.0 % | | | | POC | | | | | + + + + + + | MCV | 63.1 (A) | 80.0 - 100.0 fL | | | + + + + + + | MCH | 17.9 (A) | 25.0 - 34.0 pg | | | + + + + + + | MCHC | 28.3 (A) | 32.0 - 36.0 | | | | | | g/dL | | | + + + + + + | RDW | 18.5 (A) | 11.5 - 15.5 | | | + + + + + + | Platelet | 509 (A) | 150 - 450 | | | | Count | | | | | | Plasma | | | | | + + + + + + + + | Specimen | + + | Blood | + + documented in this encounter Visit Diagnoses + + | Diagnosis | + + | Reactive airways dysfunction syndrome (HCC) Unspecified asthma | + + | Cyanocobalamin deficiency Other B-complex deficiencies | + + | Degeneration of lumbar or lumbosacral intervertebral disc | + + | Hypothyroidism, unspecified type | + + | Osteoarthrosis, hip Localized osteoarthrosis not specified whether primary or | | secondary, pelvic region and thigh | + + | Chronic pain syndrome | + + documented in this encounter"
--- OUTSIDE RECORDS SUMMARY | ~2020-02-01 | XMS | Encounter Summary ---
Demographics + + + | Address | [address] | | | [place] [address] | + + + | Home Phone | | + + + | Preferred Language | Unknown | + + + | Marital Status | Legally | + + + | Zoroastrian Affiliation | Unknown | + + + | Race | Unknown | + + + | Ethnic Group | Unknown | + + + Author + + + | Author | [facility] | | | and [place] | + + + | Organization | [facility] | | | [...] Team Providers + +------+ + | Care Planer Operator Name | Role | Phone | + +------+ + | Roberth Gaspar MD | PCP | | + +------+ + Encounter Details +--------+ + + + + | Date | Type | Department | Care Team | Description | +--------+ + + + + | 11/04/ | Orders Only | [facility] | Conversion | | | 2017 | | NEPHROLOGY [place] | Transaction, | | | | | [address] | Provider Unknown | | | | | [address] [place], [place] | | | | | | [address] | (Fax) | | | | | [phone] | | | +--------+ + + + [...] documented in this encounter Results External Lab: MARK (10/16/2017 4:50 PM PDT) + + + [...] + + + + + + | Non- | 13.2 (A) | 4.5 - 11.0 10 | EXTERNAL | | | Red Blood | | | LAB | | | Cells | | | | | | Counted | | | [...]
--- OUTSIDE RECORDS SUMMARY | ~2020-02-01 | XMS | Encounter Summary ---
Demographics + + + | Address | [address] | | | [place] [address] | + + + | Home Phone | | + + + | Preferred Language | Unknown | + + + | Marital Status | Legally | + + + | Moravian Affiliation | Unknown | + + + | Race | Unknown | + + + | Ethnic Group | Unknown | + + + Author + + + | Author | [facility] | | | and [place] | + + + | Organization | [facility] | | | [...] Team Providers + +------+ + | Care Band Bias Machine Operator Name | Role | Phone | + +------+ + | Remi Talley MD | PCP | | + +------+ + Reason for Visit +---------+ + | Reason | Comments | +---------+ + | Results | LABS 12/06/2019 | +---------+ + Encounter Details +--------+ + + + + | Date | Type | Department | Care Team | Description | +--------+ + + + + | 12/06/ | Documentati | [facility] | Leif Kenyon DO | Results (LABS | | 2019 | on | INFECTIOUS DISEASE | [address] | 12/06/2019) | | | | [address] | [place] [address] | | | | | [place], [place] | [phone] | | | | | [address] | | | | | | [phone] | | | +--------+ + + + [...] + + documented as of this encounter Functional Status + + + [...] + documented as of this encounter Progress Nelson Hernandez, Transit Bus Driver - 12/07/2019 4:29 PM PDTLab: MARK, CMP DOS:12/06/2019 Received from:NATHANAEL العراقي Abstracted into [employer] and sent to scan: YES Abstracted by: NELSON MARQUES CMA P DTdocumented in this encounter Plan of Treatment Not [...] + + documented in this encounter Results CBC with Manual Differential (12/06/2019) + + [...] + +---------+ + + Comprehensive Metabolic Panel (12/06/2019) + + + + + + [...]
--- OUTSIDE RECORDS SUMMARY | ~2020-02-01 | XMS | Encounter Summary ---
Demographics + + + | Address | [address] | | | [place] [address] | + + + | Home Phone | | + + + | Preferred Language | Unknown | + + + | Marital Status | Legally | + + + | Adventist Affiliation | Unknown | + + + | Race | Unknown | + + + | Ethnic Group | Unknown | + + + Author + + + | Author | [facility] | | | and [place] | + + + | Organization | [facility] | | [...] Team Providers + +------+ + | Care Baker Bread Name | Role | Phone | + +------+ + | Roberth Gaspar MD | PCP | | + +------+ + Encounter Details +--------+ + + + + | Date | Type | Department | Care Team | Description | +--------+ + + + + | 01/22/ | Orders Only | [facility] | Provider, | | | 2019 | | SYSTEM GENERIC OP | MD [address] | | | | | CONVERSION [address] | [address] | | | | | [address] [place], [place] | [place] [address] | | | | | [address] | | | | | | [phone] | | | +--------+ + + + [...]
--- OUTSIDE RECORDS SUMMARY | ~2020-02-01 | XMS | Encounter Summary ---
Demographics + + + | Address | [address] | | | [place] [address] | + + + | Home Phone | | + + + | Preferred Language | Unknown | + + + | Marital Status | Legally | + + + | Latter-Day Affiliation | Unknown | + + + | Race | Unknown | + + + | Ethnic Group | Unknown | + + + Author + + + | Author | [facility] | | | and [place] | + + + | Organization | [facility] | | | and [...] Team Providers + +------+ + | Care Camera Prototyping Engineer Name | Role | Phone | + [...] | Physical | Diagnoses | Vinicio, | Moise Ceballos | | | Services | Medicine and | Bilateral | Moise Santos MD | Idris Santos MD [address] | | | Required | Rehabilitatio | hand | [address] | | | | n | numbness | [address] | [place], | | | | | Hand | [place], | [place] [address] | | | | | weakness | [place] [address] | Phone: | | | | | History of | Phone: | [phone] | | | | | diabetes | [phone] | Fax: | | | | | mellitus | Fax: | [phone] | | | | | Procedures | [phone] | | | | | | DOS 06/03/16 | | | +--------+ + + + + + Encounter Details +--------+ + + + + | Date | Type | Department | Care Team | Description | +--------+ + + + + | 10/06/ | Procedure | [facility] | Moise Ceballos, | Peripheral | | 2016 | visit | PHYSIATRY [address] | MD [address] | polyneuropathy | | | | [address] | [place] | (Primary Dx); | | | | [facility] [place] | [address] | Bilateral hand | | | | [address] | | numbness; Hand | | | | [phone] | | weakness; History of | | [...] in this encounter Patient Instructions Patient Instructions Moise Ceballos MD - 10/06/2016 5:19 PM PDTLaboratory tests [...] conduction study final report.E lectronically signed by Moise Ceballos MD at 10/06/2016 5:20 PM PDT documented in this encounter Progress Notes Moise Ceballos MD - 10/06/2016 6:12 PM PDTFormatting of this note might be different fro m the original. 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 She reports numbness in both feet [...] to mid-forelegs bilaterally. She has 4/5 hand marketing forecaster strength bilaterally. The remainder of strength is [...] may represent possible left ulnar neuropathy at [facility] jennifer l versus multi-focal mono neuropathy. This [...] comments, please do not hesitate to call. Moise Ceballos MD () Physical Medicine and Rehabilitation Cc: Roberth Gaspar MD documented in this en counter Miscellaneous Notes Addendum Note - Moise Ceballos MD - 10/06/2016 6:13 PM PDT Addended by: MOISE CEBALLOS on : 10/06/2016 18:13 Modules accepted: Level of Service documented in this encounter Plan of Treatment + +------+--------+ [...]
--- OUTSIDE RECORDS SUMMARY | ~2020-02-01 | XMS | Encounter Summary ---
Demographics + + + | Address | [address] | | | [place] [address] | + + + | Home Phone | | + + + | Preferred Language | Unknown | + + + | Marital Status | Legally | + + + | Uatsdin Affiliation | Unknown | + + + | Race | Unknown | + + + | Ethnic Group | Unknown | + + + Author + + + | Author | [facility] | | | and [place] | + + + | Organization | [facility] | | | [...] Team Providers + +------+ + | Care Genetic Counsellor Name | Role | Phone | + +------+ + | Roberth Gaspar MD | PCP | | + +------+ + Encounter Details +--------+ + + + + | Date | Type | Department | Care Team | Description | +--------+ + + + + | 09/12/ | Documentati | [facility] | [place], | | | 2019 | on | NEPHROLOGY [place] | [facility] | | | | | [address] | [place] | | | | | [address] | | | | | | [place], [place] | | | | | | [address] | | | | | | [phone] | | | +--------+ + + + [...]
--- OUTSIDE RECORDS SUMMARY | ~2020-02-01 | XMS | Encounter Summary ---
Demographics + + + | Address | [address] | | | [place] [address] | + + + | Home Phone | | + + + | Preferred Language | Unknown | + + + | Marital Status | Legally | + + + | Quaker Affiliation | Unknown | + + + | Race | Unknown | + + + | Ethnic Group | Unknown | + + + Author + + + | Author | [facility] | | | and [place] | + + + | Organization | [facility] | | | [...] Team Providers + +------+ + | Care Supervisor Smoke Control Name | Role | Phone | + +------+ + | Remi Talley MD | PCP | | + +------+ + Reason for Visit + +--------+ + | Reason | Onset | Comments | | | Date | | + +--------+ + | Coordination Of Care | 12/07/ | | | | 2020 | | + +--------+ + Encounter Details +--------+ + + + + | Date | Type | Department | Care Team | Description | +--------+ + + + + | 12/07/ | Telephone | [facility] | Leif Kenyon DO | Coordination Of Care | | 2020 | | INFECTIOUS DISEASE | [address] | | | | | [address] | [place] [address] | | | | | [place], [place] | [phone] | | | | | [address] | | | | | | [phone] | | | +--------+ + + + [...] this encounter Miscellaneous Notes Telephone Encounter - Kelsey Martínez Sash Sticker - 12/08/2019 10:40 AM PDTPatient inf ormed. Kelsey Martínez. CMAElectronically signed by Jose Carlos Merrill at 0 10:41 AM PDTTelephone Encounter - Kelsey Martínez Medical Assistant - 12/08/2019 10:40 AM P DT----- Message from Leif Kenyon DO sent at 12/08/2019 10:22 AM PDT ----- Please let the patient know that her white blood cell count was normal. Antibiotics can be completed as planned. documented in this encounter Plan of Treatment Not on filedocumented as of this encounter Visit Diagnoses Not on filedocumented in this encounter"
--- OUTSIDE RECORDS SUMMARY | ~2020-02-01 | XMS | Encounter Summary ---
Demographics + + + | Address | [address] | | | [place] [address] | + + + | Home Phone [...] Team Providers + +------+ + | Care Set Up Mechanic Heading Machines Name | Role | Phone | + [...] + + | 12/06/ | Documentati | [facility] | Leif Kenyon DO | Results (LABS | | 2019 | on | INFECTIOUS DISEASE | [address] | 12/06/2019) | | | | [address] | [place] [address] | | | | | [place], [place] | [phone] | | | | | [address] | | | | | | [phone] | | | +--------+ + + + [...] as of this encounter Progress Nelson Hernandez, Service Restorer Emergency - 12/07/2019 4:29 PM PDTLab: MARK, CMP DOS:12/06/2019 Received from:NATHANAEL العراقي Abstracted into [employer] and sent to scan: YES Abstracted by: [...]
--- OUTSIDE RECORDS SUMMARY | ~2020-02-01 | XMS | Encounter Summary ---
Demographics + + + | Address | [address] | | | [place] [address] | + + + | Home Phone [...] Team Providers + +------+ + | Care Wedding Consultant Name | Role | Phone | [...] | hand | [address] | | | | n | numbness | [address] | [place], | | | | | Hand | [place], | [place] [address] | | | | | weakness | [place] [address] | Phone: | | | | | History of | Phone: | [phone] | | | | | diabetes | [phone] | Fax: | | | | | mellitus | Fax: | [phone] | | | | | Procedures | [phone] | | | | | | DOS [...] PHYSIATRY [address] | MD [address] | polyneuropathy | | | | [address] | [place] | (Primary Dx); | | | | [facility] [place] | [address] | Bilateral hand | | | | [address] | | numbness; Hand | | | | [phone] | | weakness; History of | | [...] might be different fro m the original. 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 She reports numbness in both feet [...] to mid-forelegs bilaterally. She has 4/5 hand outside parts sales strength bilaterally. The remainder of strength is [...] may represent possible left ulnar neuropathy at [facility] jennifer l versus multi-focal mono neuropathy. This [...] () Physical Medicine and Rehabilitation Cc: Roberth Gapsar MD documented in this en counter Miscellaneous [...]
--- OUTSIDE RECORDS SUMMARY | ~2020-02-01 | XMS | Encounter Summary ---
Demographics + + + | Address | [address] | | | [place] [address] | + + + | Home Phone [...] | + + +---------+ + | Simone Dye | ECON | Unknown | | + + +---------+ + Care Team Providers + +------+ + | Care Production Planner Scheduler Name | Role | Phone | + +------+ + | No, Unknownpcp | PCP | | + +------+ + Encounter Details +--------+ + + + + | Date | Type | Department | Care Team | Description | +--------+ + + + + | 01/07/ | Hospital | [facility] | Mookie Bustamante, | | | 2013 - | Encounter | MED CTR MED ONC | [address] | | | | | [address] | [place] | | | 01/11/ | | [place] [address] | [address] | | | 2012 | | [phone] | | | +--------+ + + + [...] Bustamante MD - 01/11/2013 9:47 [place] [address] Patient Name: PHOENIX DANGELO Provider: Mookie Bustamante MD Unit #: [id number] Location: [address] [place], [place] [address] #: [id number] : 1965 ADMISSION DATE: 01/07/2013 DISCHARGE DATE: [...] Dr. Harvey. She saw Dr. Castro bose, deployment technician, who did beside debridement. He recommended that [...] was to have her go home with [facility]. However, the patient says her father will not allow that. Thus, she will be going to the [facility]. I did speak with Dr. Noe Gaspar on the phone on 01/10/2013. She needs to fol low up with him but she also should have the deployment technician to see her and I would say within s ix days. Ideally, you could have the deployment technician come to the intermediate. Check with Dr. Noe Gaspar which deployment technician he wants her to see. She has seen a deployment technician in the [facility] t. DISPOSITION: The patient to be discharged to the intermediate in improved condition. DIET: Will be diabetic, low fat, low cholesterol. She should work with physical therapy and if you have a wound care nurse as well. She can ambulate but I would have her minimize pressure on her right forefoot where she has the [facility] er. CODE STATUS: FULL CODE. MEDICATIONS [...] Hypoglycemia protocol. We have one here but intermediate might have one but we include d ours. Glucoscans before meals. Again, she needs close followup with Dr. Noe Gaspar as well as contact Dr. Noe Jara [facility]'s office for which deployment technician to see and ideally the deployment technician should start seeing he r at the intermediate and have your wound care team see her as well in the intermediate. Time of discharge more than 30 minutes. DICTATED BY: Mookie Bustamante MD Internal Medicine JOB #: [id number] EXT JOB #:[id number] cc: Dr Noe Gaspar in [facility] <<Signature on File>> Mookie Bustamante MD0 01/13/13 0536 <Electronically signed by Mookie Bustamante MD> documented in this encounter H&P Notes Provider Not, In System - 01/07/2013 4:10 [place] [address] Patient Name: CHINOPHOENIX STANTON Provider: Lam Harvey MD Unit #: [id number] Location: [address] [place] [address] #: [id number] : 1965 DATE: 01/07/2013 CHIEF COMPLAINT: Swollen foot. HISTORY OF PRESENT ILLNESS: Ms. Dangelo is a 47-year-old white female followed by Dr. Rick darnell in [place] who has diabetes mellitus type 2 and [...] she went to the emergency department in [facility] e she was found to have a significant cellulitis, was given vancomycin and was transferred to [place] primarily because of some hyperkalemia and some [...] off. LABORATORY STUDIES: Laboratory studies done in [place] show a blood sugar 152. BUN 34, [...] on culture. Blood cultures were obtained in [place] and I will cu lture the open lesion. I suspect her potassium will normalize with the Kayexalate and the w ithdrawal of triamterene and nonsteroidals. I expect the patient will do well. DICTATED BY: Lam Harvey MD JOB #: [id number] EXT JOB #:[id number] cc: Noe Gaspar MD <<Signature on File>> [...] | + +--------+ + + + | LEONOR, TROUGH | Routin | 01/09/2013 | | [...] Performed At | + + + | [facility] | [place] | | Department [address] [place] [address] | [facility] | | [ rep ct street[address]] [ rep [facility] | | st [facility]] Signed | - IMAGING | | | | | Patient Name: PHOENIX DANGELO Physician: | | | RASC.01 : 1965 Age: 47 Sex: F Unit #: [id number] | | | Exam Date: 01/10/13 Location: [address] [place] [address] | | | Report #: [id number] Page: | | | %(RAD)RES..mtdd.print.filter("pg") of %(RAD) | | | RES..mtdd.print.filter("tpg") | | | | | | Accession Number: [id number]; [id number]; | | | [id number], [id number], [id number], [id number] PICC | | | LINE PLACEMENT CLINICAL [...] Transcribed | | | Date/Time: 01/10/2013 17:07 Bending Machine Operator: | | | <<Signature on File>> | | | Campbell | | | Eloise Ocasio MD01/11/13 1032 <Electronically signed by Campbell Navas | | | Amarjit KAPLAN> Campbell Ocasio MD 01/11/13 08 | | | Bending Machine Operator: Chantel Mrzqnwqnnkikz20/17/13829 | | | | | + + + + + + + + | Performing | Address | City/State/Zipcode | Phone Number | | Organization | | | | + + + + + | [facility] | [address] | [place] | [phone] | | [facility] | | [address] | | | - IMAGING | | | | + + + + + XR Chest PA or AP (01/11/2013 8:30 AM PDT) + + | Specimen | + + | | + + + + + | Narrative | Performed At | + + + | [facility] | [place] | | Department [address] [facility] | [facility] | | [ rep ct street1+2] [ rep [facility] | | st zip] Signed | - IMAGING | | | | | Patient Name: PHOENIX DANGELO Physician: | | | SANDI.01 : 1965 Age: 47 Sex: F Unit #: [id number] | | | Exam Date: 01/10/13 Location: [address] [place] [address] | | | Report #: [id number] Page: | | | %(RAD)RES..mtdd.print.filter("pg") of %(RAD) | | | RES..mtdd.print.filter("tpg") | | | | | | Accession Number: [id number]; [id number]; | | | [id number], [id number], [id number], [id number] PICC | | | LINE PLACEMENT CLINICAL [...] Transcribed | | | Date/Time: 01/10/2013 17:07 Bending Machine Operator: | | | <<Signature on File>> | | | Campbell | | | Eloise Ocasio MD01/11/13 1032 <Electronically signed by Campbell Navas | | | Amarjit KAPLAN> Campbell Ocasio MD 01/11/13 08 | | | Bending Machine Operator: [email or web address] Yclfyxsvcqabq29/17/13 0830 | | | | | + + + + + + + + | Performing | Address | City/State/Zipcode | Phone Number | | Organization | | | | + + + + + | [facility] | [address] | [place] | [phone] | | [facility] | | [address] | | | - IMAGING | | | | + + + + + XR Chest PA or AP (01/11/2013 8:30 AM PDT) + + | Specimen | + + | | + + + + + | Narrative | Performed At | + + + | [facility] | [place] | | Department [address] [place] [address] | [facility] | | [ rep ct street1+2] [ rep [facility] | | st zip] Signed | - IMAGING | | | | | Patient Name: PHOENIX DANGELO Physician: | | | RASC.01 : 1965 Age: 47 Sex: F Unit #: [id number] | | | Exam Date: 01/10/13 Location: [address] [place] [address] | | | Report #: [id number] Page: | | | %(RAD)RES..mtdd.print.filter("pg") of %(RAD) | | | RES..mtdd.print.filter("tpg") | | | | | | Accession Number: [id number]; [id number]; | | | [id number], [id number], [id number], [id number] PICC | | | LINE PLACEMENT CLINICAL [...] Transcribed | | | Date/Time: 01/10/2013 17:07 Bending Machine Operator: | | | <<Signature on File>> | | | Campbell | | | Eloise Ocasio MD01/11/13 1032 <Electronically signed by Campbell Navas | | | Amarjit KAPLAN> Campbell Ocasio MD 01/11/13829 | | | Bending Machine Operator: Chantel Olbzknxfuhwtw03/17/13829 | | | | | + + + + + + + + | Performing | Address | City/State/Zipcode | Phone Number | | Organization | | | | + + + + + | [facility] | [address] | [place] | [phone] | | [facility] | | [address] | | | - IMAGING | | | | + + + + + XR Chest PA or AP (01/10/2013 3:18 PM PDT) + + | Specimen | + + | | + + + + + | Narrative | Performed At | + + + | [facility] | [place] | | Department [address] [facility] | [facility] | | [ rep ct street1+[address]] [ rep [facility] | | st zip] Signed | - IMAGING | | | | | Patient Name: PHOENIX DANGELO Physician: | | | YE. : 1965 Age: 47 Sex: F Unit #: [id number] | | | Exam Date: 01/10/13 Location: [address] [place] [address] | | | Report #: [id number] Page: | | | %(RAD)RES..mtdd.print.filter("pg") of %(RAD) | | | RES..mtdd.print.filter("tpg") | | | | | | Accession Number: [id number] | | | [id number], [id number], [id number], [id number] PICC LINE PLACEMENT | | | CLINICAL [...] Transcribed Date/Time: 01/10/2013 17:07 | | | Bending Machine Operator: <<Signature on File>> | | | | | | Campbell Ocasio MD01/10/13 4226 <Electronically signed by Campbell Navas | | | Amarjit KAPLAN> Campbell Ocasio MD 01/10/13 1502 | | | Bending Machine Operator: Chantel Eucnlqthpennp72/16/13 5619 | | | | | + + + + + + + + | Performing | Address | City/State/Zipcode | Phone Number | | Organization | | | | + + + + + | [facility] | [address] | [place], [place] | [phone] | | [facility] | | [address] | | | - IMAGING | | [...] + | [facility] | [address] | [place], [place] | [phone] | | [facility] | | [address] | | | - LABORATORY | | | | + + + + + | [facility] | [address] | [place], [place] | | | [facility] | | [address], [facility] | | | [...] | | | | mg/dL | [facility] | | | | [...] | 0.86 | 0.60 - 1.30 | [facility] | | | | | mg/dL | [facility] | | | | | | [facility]ICAL | | | | | | CENTER - | | | | | | LABORATORY | | + + + + + + | Estimated | >60Comment: For | >60 mL/min/A | [facility] | [...] + | [facility] | [address] | [place], [place] | [phone] | | [facility] | | [address] | | | - LABORATORY | | | | + + + + + | [facility] | [address] | [place], [place] | | | [facility] | | [address], [facility] | | | [...] + | [facility] | [address] | [place], [place] | [phone] | | [facility] | | [address] | | | - LABORATORY | | | | + + + + + | [facility] | [address] | [place] | | | [facility] | | [address] [place] [address] | | | - LABORATORY | | [...] 14 | 7 - 18 mg/dL | [facility] | | | | | | [facility] | | | | | | [facility]ICAL | | | | | | CENTER - | | | | | | LABORATORY | | + + + + + + | Creatinine | 1.06 | 0.60 - 1.30 | [facility] | | | | | mg/dL | [facility] | | | | | | MEDICAL | | | | | | CENTER - | | | | | | LABORATORY | | + + + + + + | Estimated | 56 (L)Comment: For | >60 mL/min/A | [facility] | | | GFR | -Americans, | [...] + | [facility] | [address] | [place] | [phone] | | [facility] | | [address] | | | - LABORATORY | | | | + + + + + | [facility] | [address] | [place], [place] | | | [facility] | | [id number] | | | - LABORATORY [...] | | | | | @[phone] by WRKEITHPA | | | | | | Clinical [...] + | [facility] | [address] | [place], [place] | [phone] | | [facility] | | [address] | | | - LABORATORY | | | | + + + + + | [facility] | [address] | [place] | | | [facility] | | [address] [place] [address] | | | - LABORATORY | | [...] | | | Monocytes | | | [facility] | | | [...] ST. | [address] | [place] | [phone] | | [facility] | | [address] | | | - LABORATORY | | | | + + + + + | [facility] | [address] | [place] | | | [facility] | | [address], [facility] | | | [...] 52 (L)Comment: For | >60 mL/min/A | [facility] [...] | 13.2 | 12 - 20 | [facility] | | | ine Ratio | | [...] + | [facility] | [address] | [place], [place] | [phone] | | [facility] | | [address] | | | - LABORATORY | | | | + + + + + | [facility] | [address] | [place], [place] | | | [facility] | | [address] [place] [address] | | | - LABORATORY | | [...] + | [facility] | [address] | [place], [place] | [phone] | | [facility] | | [address] | | | - LABORATORY | | | | + + + + + | [facility] | [address] | [place], [place] | | | [facility] | | [address] | | | - LABORATORY [...] 1.49 (H) | 0.60 - 1.30 | [facility] | | | | | mg/dL | [facility] | | | | | | MEDICAL | | | | | | CENTER - | | | | | | LABORATORY | | + + + + + + | Estimated | 38 (L)Comment: For | >60 mL/min/A | [facility] [...] | 16.8 | 12 - 20 | [facility] | | | ine Ratio | | [...] | 11.8 | 6.0 - 17.0 | [facility] | | | | | [...] [address] | [place] | [phone] | | [facility] | | [address] | | | - LABORATORY | | | | + + + + + | [facility] | [address] | [place] | | | [facility] | | [id number] | | | - LABORATORY [...] + | [facility] | [address] | [place], [place] | [phone] | | [facility] | | [address] | | | - LABORATORY | | | | + + + + + | [facility] | [address] | [place], [place] | | | [facility] | | [id number] [place] [address] | | | - LABORATORY | | [...] | | | | | | Standards [place] | | | | | | Rifampin [...] | | | | | | Standards [place] | | | | | | Rifampin [...] + | [facility] | [address] | [place], [place] | [phone] | | [facility] | | [address] | | | - LABORATORY | | | | + + + + + | [facility] | [address] | [place], [place] | | | [facility] | | [address] [place] [address] | | | - LABORATORY | | | | + + + + + documented in this encounter Visit Diagnoses Not on filedocumented in this encounter
--- OUTSIDE RECORDS SUMMARY | ~2020-02-01 | XMS | Encounter Summary ---
Demographics + + + | Address | [address] | | | [place] [address] | + + + | Home Phone | | + + + | Preferred Language | Unknown | + + + | Marital Status | Legally | + + + | Judaism Affiliation | Unknown | + + + [...] Team Providers + +------+ + | Care Hide Spreader Name | Role | Phone | + +------+ + | Roberth Gaspar MD | PCP | | + +------+ + Encounter Details +--------+ + + + + | Date | Type | Department | Care Team | Description | +--------+ + + + + | 10/27/ | Orders Only | [facility] | Cesar Hart MD | | | 2018 | | NEPHROLOGY [place] | [address] [place] | | | | | [address] [place] | [address] [place], [place] | | | | | [address] [place], [place] | [address] | | | | | [address] | | | | | | [phone] | | | +--------+ + + + [...] + + + + + + | Clarity, | Cloudy | | EXTERNAL | | | Urine [...] + + + + | Non- | 4.83 | 3.8 - 5.1 10 | EXTERNAL | | | Red [...]
--- OUTSIDE RECORDS SUMMARY | ~2020-02-01 | XMS | Encounter Summary ---
Demographics + + + | Address | [address] | | | [place] [address] | + + + | Home Phone [...] + + + | Author | [facility] | | | and [place] | + + + | Organization | [facility] [...] Team Providers + +------+ + | Care Hedge Fund Trader Name | Role | Phone | + +------+ + | Roberth Gaspar MD | PCP | | + +------+ + Encounter Details +--------+ + + + + | Date | Type | Department | Care Team | Description | +--------+ + + + + | 11/04/ | Orders Only | [facility] | Conversion | | | 2017 | | NEPHROLOGY [place] | Transaction, | | | | | [address] [place] | Provider Unknown | | | | | [address] [place], [place] | | | | | | [address] | (Fax) | | | | | [phone] | | | +--------+ + + + [...]
--- OUTSIDE RECORDS SUMMARY | ~2020-02-01 | XMS | Encounter Summary ---
Demographics + + + | Address | [address] | | | [place] [address] | + + + | Home Phone | | + + + | Preferred Language | Unknown | + + + | Marital Status | Legally | + + + | Mu-Ism Affiliation | Unknown | + + + | Race | Unknown | + + + | Ethnic Group | Unknown | + + + Author + + + | Author | [facility] | | | and [place] | + + + | Organization | [facility] | | [...] Team Providers + +------+ + | Care Unit Aid Name | Role | Phone | + [...] | | | | EMERGENCY CENTER | [place] [address] | | | 01/07/ | | [address] | [phone] | | | 2012 | | [place], [place] | | | | | | [address] | | | | | | [phone] | | | +--------+ + + + [...]
--- OUTSIDE RECORDS SUMMARY | ~2020-02-01 | XMS | Encounter Summary ---
Demographics + + + | Address | [address] | | | [place] [address] | + + + | Home Phone | | + + + | Preferred Language | Unknown | + + + | Marital Status | Legally | + + + | Jainism Affiliation | Unknown | + + + [...] Team Providers + +------+ + | Care Stair Builder Name | Role | Phone | + [...] + + | 12/06/ | Documentati | [facility] | Leif Kenyon DO | Results (LABS | | 2019 | on | INFECTIOUS DISEASE | [address] | 12/06/2019) | | | | [address] | [place] [address] | | | | | [place], [place] | [phone] | | | | | [address] | | | | | | [phone] | | | +--------+ + + + [...] as of this encounter Progress Nelson Hernandez, Electrician Chief - 12/07/2019 4:29 PM PDTLab: MARK, CMP DOS:12/06/2019 Received from:NATHANAEL العراقي Abstracted into [employer] and sent to scan: YES Abstracted by: [...]
--- OUTSIDE RECORDS SUMMARY | ~2020-02-01 | XMS | Encounter Summary ---
Demographics + + + | Address | [address] | | | [place] [address] | + + + | Home Phone [...] Team Providers + +------+ + | Care Residential Manager Name | Role | Phone | [...] + + | 11/20/ | Hospital | [facility] | EmyStephany jaramillomoises, | Anemia of chronic | | 2020 - | Encounter | [facility] | [address] | disease; Chronic | | | | [address] | [place] [address] | pain syndrome; CKD | | 11/28/ | | [place], [place] | [phone] | (chronic kidney | | 2020 | | [address] | | disease), stage III | | | | [phone] | Charlene Rao DO | ([facility]); Empyema of | | | | | [address] | pleural space ([facility]); | | | | | [place] [address] | Essential | | | | | [phone] | hypertension, | | | | | | benign; Pneumonia of | | | | | Fredrick Rubin | right lower lobe | | | | | MD Eloise [address] | due to methicillin | | | | | [address]VD [place], [place] | resistant | | | | | [address] | Staphylococcus | | | | | | aureus (MRSA) ([facility]); | | | | | Sanaz Vásquez, | Type 2 diabetes | | | | | [address] | mellitus 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, without | | | | | | long-term current | | | | | Romario Rodrigez MD | use of insulin | | | | | [address] | ([facility]); Pulmonary | | | | | [place] [address] | nodules; | | | | | [phone] | Thrombocytosis | | | | | | ([facility]); Loculated | | | | | | pleural effusion; | | | | | | EVA (acute kidney | | | | | | injury) ([facility]); | | | | | | Sepsis, due to | | | | | | unspecified | | | | | | organism, | | | | | | unspecified whether | | | | | | acute organ | | | | | | dysfunction present | | | | | | ([facility]); Chronic | | | | | | obstructive | | | | | | pulmonary disease, | | | | | | unspecified COPD | | | | | | type ([facility]); Weakness | | | | | [...] effusion. The patient was initially admitted to [facility] on 11/11/2019 due to fever, dyspne [...] who recommended SNF. Patient was accepted to [facility] swing bed with plan to complete IV ceftaroline until December 08, 2019 . Case was discussed with the accepting physician at [facility]. Discharge Exam and Data: Vital Signs: BP [...] Value Units Date/Time Culture, Body Fluid Sterile [[id number]] Collected: 11/23/19 1055 Order Status: Completed Lab Status: Final result Updated: 11/27/19 0657 Specimen: Body Fluid from Abscess Gram Stain Result NO CELLS OR ORGANISMS SEEN RESULT NO GROWTH 4 DAYS RESULT Testing performed at [facility], [address] [place] [address] Comment: Testing performed at [facility], [place] [address] Clostridium difficile A and B EIA [[id number]] Order Status: Canceled Lab Status: No result [...] analysis per the clinician's orders. A 12 Somali locking pigtail catheter is placed. Signed by: [...] December 08, 2019 Discharge Information: Follow up: [facility] [address] [facility] [address] On 12/07/2019 follow up infection/pneumonia Remi Talley MD [address] [address] Schedule an appointment as soon as possible [...] might be di fferent from the original. [facility] Service: Hospitalist Progress Note Pt: Phoenix Dangelo AGE/SEX: 54 y.o. female ROOM: 9101/9101-01 : 1965 PCP: Remi Talley MD ADMIT DATE: 11/21/2019 TODAY'S DATE: 11/28/2019 Hospital Day/Hospital Course: LOS: [address] Rubin "Patient is a 54 year old female with past medical history of HTN, HLD, DM Type 2, COPD and Chronic Pain who was first admitted at [facility] on11/11/19due to dyspnea and fevers.Her labs showed [...] suggestive of empyema.She was then transferred to [facility] for CT Surgery evaluation. She was seen [...] hours. No results for input(s): PHART, PO2ART, IVR0AQI, D0QWGVIH, BEART in the last 168 hours. Recent [...] analysis per the clinician's orders. A 12 Somali locking pigtail catheter is placed. Signed by: [...] and managing patient and counseling/coordination. Dictation software, [employer], used which may contain error for similar [...] this note might be different from the [facility] Service: Infectious Disease Progress Note Hospital [...] Psychiatric: Appropriate mood and affect PICC at [facility] DATA Recent Results (from the [...] analysis per the clinician's orders. A 12 Somali locking pigtail catheter is placed. Signed by: [...] analysis per the clinician's orders. A 12 Somali locking pigtail catheter is placed. Signed by: [...] M D - 11/27/2019 10:18 AM PDT [facility] Service: Infectious Disease Progress Note Hospital Day: [...] Psychiatric: Appropriate mood and affect PICC at [facility] DATA Recent Results (from the [...] Chronic Pain who was first admitted at [facility] on 11/11/19 due to dyspnea an d [...] empyema . She was then transferred to [facility] for CT Surgery evaluation. She was seen [...] diagnosed with Pneumonia and admit brandyn at [facility] requiring IV antibiotics. She improved but then [...] then she will need rehab preferably at [facility] Swing Bed Program for IV antibiotics. Pain [...] in another 1 to 2 days to [facility] in [facility] or when st able and cleared by [...] accordingly. 11/26/2019 1:14 PM Pharmacist: Mercedes Roberts [facility] Fredrick Killian MD - 11/26/2019 8:29 AM [...] Chronic Pain who was first admitted at [facility] on 11/11/19 due to dyspnea an d [...] empyema . She was then transferred to [facility] for CT Surgery evaluation. She was seen [...] in another 2 to 3 days to [facility] in [facility] or when st able and improved and cleared by ID and IR services. Fredrick Rubin MD 11/26/2019 aranada, Abi hannah MD - 11/25/2019 2:11 PM PDTFormatting of this note might be different from the [facility] Service: Infectious Disease Progress Note Hospital [...] Lovenox. Eventual plan to Swing bed at [facility] in [place]. ? Wednesday or Wednesday. Sanaz Vásquez MD [...] analysis per the clinician's orders. A 12 Somali locking pigtail catheter is placed. Signed by: [...] might be different from the or iginal. [facility] Service: Infectious Disease Progress Note Hospital Day: [...] SEEN Gram Stain Result Testing performed at [facility], [address] [place] [address] RESULT PENDING POC Glucose Collection Time: 11/23/19 [...] THIS TIME P RESULT Testing performed at [facility], [address] [place] [address] P Comment: Testing performed at [facility], [address] [place] [address] Resulting Agency [facility] Specimen Collected: 11/23/19 10:55 Last Resulted: 11/24/19 [...] Chronic Pain who was first admitted at [facility] on 11/11/19 due to dyspnea an d [...] empyema . She was then transferred to [facility] for CT Surgery evaluation. She was seen [...] SEEN Gram Stain Result Testing performed at [facility], [address] [place] [address] RESULT PENDING POC Glucose Result Value Ref [...] diagnosed with Pneumonia and a dmitted at [facility] requiring IV antibiotics. She improved but then [...] another 2 to 3 4 days [facility] or when stable and improved and cleared by ID and IR services. Fredrick Rubin MD 11/24/2019 Shital Carmichael [facility] - 11/23/2019 11:30 PM PDTFormatting of this [...] the following patient-specific PK parameters. Ke = 0.62213 1/hr T1/2 = 21 hours Estimated time [...] therapy as indicated. Thank You, Allyssa Johnson, [facility], 11/23/2019, 11:21 PM Patricia Alcocer RN - 11/23/2019 12:34 PM [facility] received [facility] for home [facility]. Will invest igate benefits and follow up with CM. Thank you for your referral. Patricia Macedo RN [phone]: We are not contracted with this [facility] OR plan, CM notified.Electronically sosa d by [...] Chronic Pain who was first admitted at [facility] on 11/11/19 due to dyspnea an d [...] empyema . She was then transferred to [facility] for CT Surgery evaluation. Events Overnight: Patient [...] diagnosed with Pneumonia and a dmitted at [facility] requiring IV antibiotics. She improved but then [...] this note might be different from the [facility] Service: Infectious Disease Progress Note Hospital [...] might be different from the haritha robbins [facility] Adult Hospitalist Progress Note Hospital Day: 1 HPI SUMMARY: Mrs. Dangelo is a 54 yo F with PMHx of DM2, chronic pain, COPD who presented to [facility] on 11/11/19 with SOB and [...] suggestive of empyema. Patient transferr ed to [facility] for CT Surgery consultation. CT Surgery was [...] socks. Charlene Rao DO 11/22/2019 Michael Valerio [facility] - 11/21/2019 10:55 PM PDT Vancomycin Dosing [...] You, MICHAEL SALVADOR RP, 11/21/2019, 10:53 PM khil Walden MD - [...] might be different from the origi nal. [facility] Service: Hospitalist Admission History & Physical Date [...] Patient came as a direct admit from [facility] for right-sided empyema. This patient was admitted to [facility] on November 11, 2019 with chief complaint [...] of empyema. So patient was transferred for [facility] othoracic surgery consultation here. Today [...] GALLBLADDER SURGERY 1997 [facility] SINUS SURGERY 1998 [facility] Medications Prior to Admission Medication Sig Dispense [...] file Gets together: Not on file Attends rastafarian service: Not on file Active member of [...] on file Social History Narrative Lives in [place] with her brother and father, independent with [...] PDTAssociated Order(s): PROVIDER TO PROVIDER C ONSULT [facility] Service: Infectious Diseases Initial Consult Note Date of Admission: 11/21/2019 Reason for Consultation: Advice on antibiotics for right lower lobe MRSA pneumonia, suspect ed empyema Requesting Physician: Dr. Rhonda Blas, Hospitalist History Obtained From: Patient, Chart review and Referring MD CHIEF COMPLAINT: Transferred from [facility] for further care of parapneumonic effusio [...] the past. The patient was admitted at [facility] on 11/11/2019 for shortness of breath o [...] fevers. WBC ranged from 18-20,000. On 11/20, [facility] t CT scan showed loculated right [...] given 2 g of IV vancomycin at [facility] and then transferred to [facility] for CT surgery evaluation. On presentation at [facility] on 11/20, she was described as having [...] Left 2000 Dr. Anguiano GALLBLADDER SURGERY 1997 [facility] SINUS SURGERY 1998 [facility] Allergies Allergen Reactions Penicillins Shortness Of Breath [...] activity: Never Social History Narrative Lives in [place] with her brother and father, independent with [...] note might be different from the original. [facility] Cardiothoracic Surgery CONSULTATION NOTE Pt. Name/Age/: Phoenix [...] chronic pain syndrome. Patient was admitted to [facility] on November 11, 2019 wit h chief [...] Left 1999 Dr. Anguiano GALLBLADDER SURGERY 1997 [facility] SINUS SURGERY 1998 [facility] Allergies: Allergies Allergen Reactions Penicillins Shortness Of [...] nystatin (MYCOSTATIN) cream Topical BID María Elena Blsa MD ondansetron (ZOFRAN) injection 4 mg 4 [...] 15 mg/kg (Adjusted) Intravenous Q12H Nita Salvador, [facility] vancomycin per pharmacy Other Pharmacy Consult María [...] file Gets together: Not on file Attends rastafarian service: Not on file Active member of [...] on file Social History Narrative Lives in [place] with her brother and father, independent with [...] signed by: PETER Britt 11/22/2019 7:12 AM [facility] Associated attestation - Akhil Walden MD [...] Integrity Outcome: Met Pt to discharge to [facility] bed. To leave PICC line in for continued antibiotic treatment. Report called to nurse Limon. All questions answered. D/C per taxi at 1400. E lectronically signed by Bev Rico RN at 11/29/2019 2:01 PM PDTPlan of Jef Celestin MSW - 11/29/2019 1:02 PM PDTCare Management SNF/LTACH Final Discharge Plan Readmission Risk: Medium Discharge Plan Planned Disposition: Swing bed Planned Destination: [facility]ing [facility] Tibbie of Choice: YES Facility Information: Address: [address] [place] [address] Community Care Provider: Dr. Romero Patient/Family Notified: yes Transportation will be provided by: taxi, other (comment)([employer] - ) Transportation Date/Time: taxi, other (comment)([employer] - [phone]) 1400 Ride Contact: Name: [facility] [employer] [phone] Phone: [employer] [phone] Confirmed 3 Qualifying Midnights: yes SNF Authorization Received: yes Benefits and Co-Pays: none at this time - already obtained [employer] Authorization PASRR Completed: yes Electronically signed: KOREY CASTRO 11/29/2019 1:02 PM lan of Jef Green MSW - 11/29/2019 8:34 AM PDTDISCHARGE PLANNING ACQUISITION MARKETING COORDINATOR p/c msg with Anthony Davison, Admissions at [facility] ([phone] ph, fax) regarding status of insurance authorization from [facility] aid, with hopes of obtaining it this morning to discharge today. ACQUISITION MARKETING COORDINATOR p/c msg with Debra Combs, Admissions at [facility] ([phone] ph). ACQUISITION MARKETING COORDINATOR p/c with Debra Combs, Admissions at [facility] ([phone] ph) states their census went high last night and unable to accept this Pt today. ACQUISITION MARKETING COORDINATOR met with Pt regarding this update about [place] and Pt states her preference is now (a) [facility] Swing Bed. and (b) [facility] [place]. ACQUISITION MARKETING COORDINATOR p/c left msg with Rhondi, admissions at [facility] [place] regarding ref ashwini, ACQUISITION MARKETING COORDINATOR p/c with Taisha Michael, [facility] Swing Bed Program, states will consider Pt , reviewing referral. States they have open beds, and we already have insurance auth from [facility] [employer] [facility] [phone] ph. ACQUISITION MARKETING COORDINATOR p/c with Rhondi with [facility], states they already have insurance auth f rom [facility] [phone] ph, DCP: Pending placement at [facility] Swing Bed Program. If Pt goes to [facility] Swing Bed, Pt will need transportation from [employer] [phone], they often ask for 24 hrs Avoidable days documented for delay with insurance authorization for [facility]. KOREY CASTRO [phone] cell lan of Care - Jonathon Lu, PT - 11/29/2019 7:32 AM PDT Physical Therapy Treatment Note Recommended discharge disposition: half-way facility Post discharge physical therapy recommendation: will [...] Device: none Supine to Sit, Level of Attala: modified independent Safety Issues: decreased use of legs for bridging/pushing Transfers Additional Documentation: sit to/from stand Sit-Stand, Level of Attala: contact guard assist Stand-Sit, Level of Attala: contact guard assist [id number], Assistive Device: 4 wheeled walker (4WW) Impairments: impaired balance Gait Level of Attala: contact guard assist Assistive Device: 4 wheeled walker (4WW) Distance (feet): 50 x 2 Impairments: impaired balance Goals Reflects last filed data and may be from multiple contributors. Gait Goal Most Recent Value LTG Status not met, continued at 11/29/2019 0732 LTG Attala Level modified independent at 11/29/2019 0732 LTG Assistive Device cane (straight, single point) at 11/29/2019 0732 LTG Distance (feet) 150 at 11/29/2019 0732 Stair Goal Most Recent Value LTG Status not met, continued at 11/29/2019 0732 LTG Attala Level stand by assist at 11/29/2019 0732 [...] Physical Therapy Treatment Note Recommended discharge disposition: half-way facility Post discharge physical therapy recommendation: home [...] fatigues quickly. Encouraged pt. to ambulate with direct support staff multiple times throughout the day. Precautions Precautions/Limitations: falls Transfers Additional Documentation: sit to/from stand Sit-Stand, Level of Attala: contact guard assist Stand-Sit, Level of Attala: contact guard assist [id number], Assistive Device: 4 wheeled walker (4WW) Impairments: impaired balance Gait Level of Attala: contact guard assist Assistive Device: 4 wheeled walker (4WW) Distance (feet): 40 x 2 Additional Documentation: safety, impairments Impairments: impaired balance Goals Reflects last filed data and may be from multiple contributors. Gait Goal Most Recent Value LTG Att[place] Level modified independent at 11/22/2019 1045 LTG Assistive Device cane (straight, single point) at 11/22/2019 1045 LTG Distance (feet) 150 at 11/22/2019 1045 Stair Goal Most Recent Value LTG Att[place] Level stand by assist at 11/22/2019 1045 [...] Rodrigez MD Transferring Medical Center: Receiving Facility: [facility] Provider after Transfer: PCP NURSE ASSESSMENT Recent [...] Follow-Up Appointments House provider in 3-5 days [facility] [address] [facility] [address] On 12/07/2019 follow up infection/pneumonia Remi Talley MD [address] [phone] Schedule an appointment as soon as possible for a visit in 1 week hospital follow up Certification I certify that the following level of post-hospital care is medically necessary on a contin uing basis for any of the conditions for which she received care during this hospitalization : Skilled ([facility] Facility with 24-hour skilled RN service) Physician [...] MSW - 11/28/2019 11:29 AM PDTDISCHARGE PLANNING ACQUISITION MARKETING COORDINATOR p/c with Anthony Saman, Admissions at [facility] ([phone] ph, fax) states they want to accept this patient back to their hospital, states they a re awaiting for insurance authorization from [facility], states this usuall y takes about 24 hours, states this has been already started. DCP: Pending at [facility] [place] - Awaiting for insurance authoriza tion Avoidable days documented for delay with insurance authorization for [facility] icaid. Anticipated discharge on 11/28 KOREY CASTRO [phone] cell lan of Regla - Renetta Giang [...] MSW - 11/27/2019 3:26 PM PDTDISCHARGE PLANNING ACQUISITION MARKETING COORDINATOR p/c with Debra Combs, jose at [facility], states their physician Leif Richards DO is currently reviewing the incomplete notes from Gasper Erickson. [facility] at [phone] will provide transportation. DCP: Pending at [facility] KOREY CASTRO [phone] cell lan of Renetta Junior RN - [...] check complete. Adriana Mcnulty RN lan of [facility] - Sakshi Quiñonez cia, RN - 11/26/2019 [...] call light appropriately. A M PDTPlan of [facility] - Adriana Mcnulty RN - 11/25/2019 5:39 [...] ing Next Steps: CM sent referral to [facility] Community Support Services Current Outpt/Agency/Support Groups: [...] home. PT evaluation recommend s Home health, [facility] referral sent and following for discharge If needed. Pt currently on I VAB. Per , Pt IVAB to change to Ceftaroline, for a duration of 2-3 weeks. Pt's in surance not covered by [facility] or [facility]. CM sent referral to [facility] for placement, will need to follow up with updated ID notes from today 0. Likely no other CM needs from Case Management at this time. CM will continue to follow fo r discharge planning, pending clinical course. Electronically signed: Tala Shetty RN 11/24/2019 11:55 AM lan of Care - Carl Yina A, UNEMPLOYMENT EXAMINER - 11/24/2019 10:05 AM PDT Physical Therapy [...] bed rails Supine to Sit, Level of Attala: modified independent Sit to Supine, Level of Attala: modified independent Transfers Additional Documentation: sit to/from stand Sit-Stand, Level of Attala: stand by assist Stand-Sit, Level of Attala: stand by assist [id number], Assistive Device: 2 wheeled walker (FWW) Impairments: impaired balance Gait Level of Attala: contact guard assist Assistive Device: 2 wheeled walker (FWW) Distance (feet): 2x40 Additional Documentation: safety, impairments Impairments: impaired balance Balance Sitting Balance: Static: good balance Sitting Balance: Dynamic: good balance Standing Balance: Static: good balance Standing Balance: Dynamic: fair balance Goals Reflects last filed data and may be from multiple contributors. Gait Goal Most Recent Value LTG Att[place] Level modified independent at 11/22/2019 1045 LTG Assistive Device cane (straight, single point) at 11/22/2019 1045 LTG Distance (feet) 150 at 11/22/2019 1045 Stair Goal Most Recent Value LTG Attala Level stand by assist at 11/22/2019 1045 [...] return the follow ing day. lan of [facility] Demetris, Tala Jacobs RN - 11/23/2019 12:02 [...] Pt currently on IVAB-Va ncomycin and Levofloxacin. [place] following for potential for home IVABl. [place] to check insurance coverage for services and to contact this CM. PT recommends home with assist , and Home Health. CM sent referral to [facility] and updated on potential discharge date. Likely [...] loculated pleural effusion Post OP Diagnosis: Same Aircraft Loadmaster Superintendent: Calderon Leggett MD MD Anesthesia Type: Mod [...] call light within reach, cane at bedside, certified nurse socks on, n ight light on. lan [...] safe to return home with assist and [facility] PT. Living Environment Lives With: father, [...] Device: none Supine to Sit, Level of Attala: independent Sit to Supine, Level of Attala: independent Transfers Additional Documentation: sit to/from stand Sit-Stand, Level of Attala: stand by assist Stand-Sit, Level of Attala: stand by assist [id number], Assistive Device: none, cane (straight, single point) Impairments: impaired balance Gait Gait Comments: With no AD, pt with increased lateral sway and near loss of balance with zackary f-recovery. SPC trialed with giat training on proper use. Level of Attala: stand by assist Assistive Device: cane (straight, [...] contributors. Gait Goal Most Recent Value LTG Attala Level modified independent at 11/22/2019 1045 LTG Assistive Device cane (straight, single point) at 11/22/2019 1045 LTG Distance (feet) 150 at 11/22/2019 1045 Stair Goal Most Recent Value LTG Attala Level stand by assist at 11/22/2019 1045 [...] Treatment creams applied. lan of Care - [facility] priscilla, KOREY Pang - 11/22/2019 9:19 AM [...] Testing | 65 - 99 mg/dL | [facility] | | | POC | performed at [facility];888 | | LABORATORY | | | | [facility];[place], [place] | | | | | | [address] | | | | + + + + + + + + | Specimen | + + | | + + + + + + + | Performing | Address | City/State/Zipcode | Phone Number | | Organization | | | | + + + + + | [facility] | [address] | [place] [address] | [phone] | + + + + + POC Glucose (11/29/2019 8:01 AM PDT) + + + + + + | Component | Value | Ref Range | Performed | Pathologist | | | | | At | Signature | + + + + + + | Glucose, | 126 (H)Comment: Testing | 65 - 99 mg/dL | [facility] | | | POC | performed at [facility];[address] | | LABORATORY | | | | [address];[place], [place] | | | | | | [address] | | | | + + + + + + + + | Specimen | + + | | + + + + + + + | Performing | Address | City/State/Zipcode | Phone Number | | Organization | | | | + + + + + | [facility] | [address] | [place] [address] | [phone] | + + + + + Comprehensive [...] | | | | | performed at [facility] | | | | | | [address] [facility];[place], [place] | | | | | | [address] | | | | + + + + + + + + | Specimen | + + | Blood | + + + + + + + | Performing | Address | City/State/Zipcode | Phone Number | | Organization | | | | + + + + + | [facility] | [address] | [place] [address] | [phone] | + + + + + POC [...] | | | POC | performed at [facility];[address] | | LABORATORY | | | | [address];[place] | | | | | | [address] | | | | + + + + + + + + | Specimen | + + | | + + + + + + + | Performing | Address | City/State/Zipcode | Phone Number | | Organization | | | | + + + + + | [facility] | [address] | [place] [address] | [phone] | + + + + + POC Glucose (11/28/2019 5:04 PM PDT) + + + + + + | Component | Value | Ref Range | Performed | Pathologist | | | | | At | Signature | + + + + + + | Glucose, | 92Comment: Testing | 65 - 99 mg/dL | [facility] | | | POC | performed at [facility];[address] | | LABORATORY | | | | [address];[place] | | | | | | [address] | | | | + + + + + + + + | Specimen | + + | | + + + + + + + | Performing | Address | City/State/Zipcode | Phone Number | | Organization | | | | + + + + + | [facility] | [address] | [place] [address] | [phone] | + + + + + POC Glucose (11/28/2019 11:55 AM PDT) + + + + + + | Component | Value | Ref Range | Performed | Pathologist | | | | | At | Signature | + + + + + + | Glucose, | 190 (H)Comment: Testing | 65 - 99 mg/dL | [facility] | | | POC | performed at [facility];[address] | | LABORATORY | | | | [address];[place] | | | | | | [address] | | | | + + + + + + + + | Specimen | + + | | + + + + + + + | Performing | Address | City/State/Zipcode | Phone Number | | Organization | | | | + + + + + | [facility] | [address] | [place] [address] | [phone] | + + + + + XR [...] Testing | 65 - 99 mg/dL | [facility] | | | POC | performed at [facility];[address] | | LABORATORY | | | | [address];[place] | | | | | | [address] | | | | + + + + + + + + | Specimen | + + | | + + + + + + + | Performing | Address | City/State/Zipcode | Phone Number | | Organization | | | | + + + + + | [facility] | [address] | [place] [address] | [phone] | + + + + + XR [...] | | | | | | MDRD IDMA traceable | | | | | | equation.Testing | | | | | | performed at [facility];[address] | | | | | | [facility];[place], [place] | | | | | | [address] | | | | + + + + + + + + | Specimen | + + | Blood | + + + + + + + | Performing | Address | City/State/Zipcode | Phone Number | | Organization | | | | + + + + + | [facility] | [address] | [place] [address] | [phone] | + + + + + CBC [...] LABORATORY | | | | performed at [facility];[address] | | | | | | [address];[place], [place] | | | | | | [address] | | | | | | | | | | + + + + + + + + | Specimen | + + | Blood | + + + + + + + | Performing | Address | City/State/Zipcode | Phone Number | | Organization | | | | + + + + + | [facility] | [address] | [place] [address] | [phone] | + + + + + POC [...] | | | POC | performed at [facility];[address] | | LABORATORY | | | | [address];[place], [place] | | | | | | [address] | | | | + + + + + + + + | Specimen | + + | | + + + + + + + | Performing | Address | City/State/Zipcode | Phone Number | | Organization | | | | + + + + + | [facility] | [address] [facility] | [place] [address] | [phone] | + + + + + POC [...] | | | POC | performed at [facility];[address] | | LABORATORY | | | | [address];[place], [place] | | | | | | [address] | | | | + + + + + + + + | Specimen | + + | | + + + + + + + | Performing | Address | City/State/Zipcode | Phone Number | | Organization | | | | + + + + + | [facility] | [address] | [place] [address] | [phone] | + + + + + POC Glucose (11/27/2019 12:22 PM PDT) + + + + + + | Component | Value | Ref Range | Performed | Pathologist | | | | | At | Signature | + + + + + + | Glucose, | 150 (H)Comment: Testing | 65 - 99 mg/dL | [facility] | | | POC | performed at [facility];[address] | | LABORATORY | | | | [address];[place] | | | | | | [address] | | | | + + + + + + + + | Specimen | + + | | + + + + + + + | Performing | Address | City/State/Zipcode | Phone Number | | Organization | | | | + + + + + | [facility] | [address] | [place] [address] | [phone] | + + + + + Comprehensive [...] 32 (L)Comment: GFR <60: | >60 | [facility] | | | GFR | CHRONIC [...] | | | | | | MDRD IDMA traceable | | | | | | equation.Testing | | | | | | performed at [facility], [address] | | | | | | [facility], | | | | | | [place] [address] | | | | + + + + + + + + | Specimen | + + | Blood | + + + + + + + | Performing | Address | City/State/Zipcode | Phone Number | | Organization | | | | + + + + + | [facility] | [address] | [place] [address] | [phone] | + + + + + POC [...] | | | POC | performed at [facility];[address] | | LABORATORY | | | | [address];[place] | | | | | | [address] | | | | + + + + + + + + | Specimen | + + | | + + + + + + + | Performing | Address | City/State/Zipcode | Phone Number | | Organization | | | | + + + + + | [facility] | [address] | [place] [address] | [phone] | + + + + + XR [...] Signed by: Hugh Myers, | | | Marecl Sign Date/Time: 11/27/2019 6:21 AM | | [...] LABORATORY | | | | performed at [facility], [address] | | | | | | [address], | | | | | | [place] [address] | | | | | | | | | | + + + + + + + + | Specimen | + + | Blood | + + + + + + + | Performing | Address | City/State/Zipcode | Phone Number | | Organization | | | | + + + + + | [facility] | [address] | [place] [address] | [phone] | + + + + + POC [...] | | | POC | performed at [facility];[address] | | LABORATORY | | | | [address];[place], [place] | | | | | | [address] | | | | + + + + + + + + | Specimen | + + | | + + + + + + + | Performing | Address | City/State/Zipcode | Phone Number | | Organization | | | | + + + + + | [facility] | [address] | [place] [address] | [phone] | + + + + + Lactic Acid (11/26/2019 8:22 PM PDT) + + + + + + | Component | Value | Ref Range | Performed | Pathologist | | | | | At | Signature | + + + + + + | Lactate, | 1.3Comment: Testing | 0.4 - 2.0 | [facility] | | | Serum | performed at [facility];888 | mmol/L | LABORATORY | | | | [address];[place], [place] | | | | | | [address] | | | | + + + + + + + + | Specimen | + + | Blood | + + + + + + + | Performing | Address | City/State/Zipcode | Phone Number | | Organization | | | | + + + + + | [facility] | [address] | [place] [address] | [phone] | + + + + + POC [...] | | | POC | performed at [facility];[address] | | LABORATORY | | | | [address];[place] | | | | | | [address] | | | | + + + + + + + + | Specimen | + + | | + + + + + + + | Performing | Address | City/State/Zipcode | Phone Number | | Organization | | | | + + + + + | [facility] | [address] | [place] [address] | [phone] | + + + + + POC Glucose (11/26/2019 5:14 PM PDT) + + + + + + | Component | Value | Ref Range | Performed | Pathologist | | | | | At | Signature | + + + + + + | Glucose, | 173 (H)Comment: Testing | 65 - 99 mg/dL | [facility] | | | POC | performed at [facility];[address] | | LABORATORY | | | | [address];[place] | | | | | | [address] | | | | + + + + + + + + | Specimen | + + | | + + + + + + + | Performing | Address | City/State/Zipcode | Phone Number | | Organization | | | | + + + + + | [facility] | [address] | [place] [address] | [phone] | + + + + + POC Glucose (11/26/2019 12:49 PM PDT) + + + + + + | Component | Value | Ref Range | Performed | Pathologist | | | | | At | Signature | + + + + + + | Glucose, | 162 (H)Comment: Testing | 65 - 99 mg/dL | [facility] | | | POC | performed at [facility];[address] | | LABORATORY | | | | [address];[place], [place] | | | | | | [address] | | | | + + + + + + + + | Specimen | + + | | + + + + + + + | Performing | Address | City/State/Zipcode | Phone Number | | Organization | | | | + + + + + | [facility] | [address] | [place] [address] | [phone] | + + + + + CBC [...] | | | | | | at [facility], [address] | | | | | | [facility], | | | | | | [place] [address] | | | | | |Testing performed at [facility], [address] [place] [address] | | | | | | | | | | + + +---- + + + + + | Specimen | + + | Blood | + + + + + + + | Performing | Address | City/State/Zipcode | Phone Number | | Organization | | | | + + + + + | [facility] | [address] | [place] [address] | [phone] | + + + + + POC [...] | | | POC | performed at [facility];[address] | | LABORATORY | | | | [address];[place] | | | | | | [address] | | | | + + + + + + + + | Specimen | + + | | + + + + + + + | Performing | Address | City/State/Zipcode | Phone Number | | Organization | | | | + + + + + | [facility] | [address] | [place] [address] | [phone] | + + + + + Basic [...] | | | | | performed at [facility], [address] | | | | | | [facility], | | | | | | [place] [address] | | | | + + + + + + + + | Specimen | + + | Blood | + + + + + + + | Performing | Address | City/State/Zipcode | Phone Number | | Organization | | | | + + + + + | [facility] | [address] | [place] [address] | [phone] | + + + + + DIAGNOSTIC [...] | | | POC | performed at [facility];[address] | | LABORATORY | | | | [address];[place] | | | | | | [address] | | | | + + + + + + + + | Specimen | + + | | + + + + + + + | Performing | Address | City/State/Zipcode | Phone Number | | Organization | | | | + + + + + | [facility] | [address] | [place] [address] | [phone] | + + + + + POC Glucose (11/25/2019 8:35 PM PDT) + + + + + + | Component | Value | Ref Range | Performed | Pathologist | | | | | At | Signature | + + + + + + | Glucose, | 199 (H)Comment: Testing | 65 - 99 mg/dL | [facility] | | | POC | performed at [facility];[address] | | LABORATORY | | | | [address];[place] | | | | | | [address] | | | | + + + + + + + + | Specimen | + + | | + + + + + + + | Performing | Address | City/State/Zipcode | Phone Number | | Organization | | | | + + + + + | [facility] | [address] [facility] [facility] | [place] [address] | [phone] | + + + + + POC Glucose (11/25/2019 5:08 PM PDT) + + + + + + | Component | Value | Ref Range | Performed | Pathologist | | | | | At | Signature | + + + + + + | Glucose, | 177 (H)Comment: Testing | 65 - 99 mg/dL | [facility] | | | POC | performed at [facility];[address] | | LABORATORY | | | | [address];[place] | | | | | | [address] | | | | + + + + + + + + | Specimen | + + | | + + + + + + + | Performing | Address | City/State/Zipcode | Phone Number | | Organization | | | | + + + + + | [facility] | [address] | [place] [address] | [phone] | + + + + + POC Glucose (11/25/2019 12:18 PM PDT) + + + + + + | Component | Value | Ref Range | Performed | Pathologist | | | | | At | Signature | + + + + + + | Glucose, | 190 (H)Comment: Testing | 65 - 99 mg/dL | [facility] | | | POC | performed at [facility];[address] | | LABORATORY | | | | [address];[place], [place] | | | | | | [address] | | | | + + + + + + + + | Specimen | + + | | + + + + + + + | Performing | Address | City/State/Zipcode | Phone Number | | Organization | | | | + + + + + | [facility] | [address] | [place] [address] | [phone] | + + + + + POC [...] | | | POC | performed at [facility];[address] | | LABORATORY | | | | [address];[place] | | | | | | [address] | | | | + + + + + + + + | Specimen | + + | | + + + + + + + | Performing | Address | City/State/Zipcode | Phone Number | | Organization | | | | + + + + + | [facility] | [address] | [place] [address] | [phone] | + + + + + POC [...] | | | POC | performed at [facility];[address] | | LABORATORY | | | | [address];[place] | | | | | | [address] | | | | + + + + + + + + | Specimen | + + | | + + + + + + + | Performing | Address | City/State/Zipcode | Phone Number | | Organization | | | | + + + + + | [facility] | [address] | [place] [address] | [phone] | + + + + + Basic [...] | 8.6 | 8.5 - 10.5 | [facility] | | | | | mg/dL | LABORATORY | | + + + + + + | Estimated | 39 (L)Comment: GFR <60: | >60 | [facility] | | | GFR | CHRONIC [...] | | | | | | MDRD IDMA traceable | | | | | | equation.Testing | | | | | | performed at [facility], [address] | | | | | | [facility], | | | | | | [place] [address] | | | | + + + + + + + + | Specimen | + + | Blood | + + + + + + + | Performing | Address | City/State/Zipcode | Phone Number | | Organization | | | | + + + + + | [facility] | [address] | [place] [address] | [phone] | + + + + + CBC [...] LABORATORY | | | | performed at [facility], [address] | | | | | | [facility], | | | | | | [place] [address] | | | | | |Testing performed at [facility], [address] [facility], [place] [address] | | | | | | | | | | + + +---- + + + + + | Specimen | + + | Blood | + + + + + + + | Performing | Address | City/State/Zipcode | Phone Number | | Organization | | | | + + + + + | [facility] | [address] | [place] [address] | [phone] | + + + + + POC [...] | | | POC | performed at [facility];[address] | | LABORATORY | | | | [address];[place] | | | | | | [address] | | | | + + + + + + + + | Specimen | + + | | + + + + + + + | Performing | Address | City/State/Zipcode | Phone Number | | Organization | | | | + + + + + | [facility] | [address] | [place] [address] | [phone] | + + + + + POC Glucose (11/24/2019 5:09 PM PDT) + + + + + + | Component | Value | Ref Range | Performed | Pathologist | | | | | At | Signature | + + + + + + | Glucose, | 121 (H)Comment: Testing | 65 - 99 mg/dL | [facility] | | | POC | performed at [facility];[address] | | LABORATORY | | | | [address];[place], [place] | | | | | | [address] | | | | + + + + + + + + | Specimen | + + | | + + + + + + + | Performing | Address | City/State/Zipcode | Phone Number | | Organization | | | | + + + + + | [facility] | [address] | [place] [address] | [phone] | + + + + + POC [...] | | | POC | performed at [facility];[address] | | LABORATORY | | | | [address] [facility];[place], [place] | | | | | | [address] | | | | + + + + + + + + | Specimen | + + | | + + + + + + + | Performing | Address | City/State/Zipcode | Phone Number | | Organization | | | | + + + + + | [facility] | [address] | [place] [address] | [phone] | + + + + + POC Glucose (11/24/2019 8:09 AM PDT) + + + + + + | Component | Value | Ref Range | Performed | Pathologist | | | | | At | Signature | + + + + + + | Glucose, | 162 (H)Comment: Testing | 65 - 99 mg/dL | [facility] | | | POC | performed at [facility];[address] | | LABORATORY | | | | [address];[place] | | | | | | [address] | | | | + + + + + + + + | Specimen | + + | | + + + + + + + | Performing | Address | City/State/Zipcode | Phone Number | | Organization | | | | + + + + + | [facility] | [address] | [place] [address] | [phone] | + + + + + XR [...] | | | | | performed at [facility], [address] | | | | | | [facility], | | | | | | [place] [address] | | | | + + + + + + + + | Specimen | + + | | + + + + + + + | Performing | Address | City/State/Zipcode | Phone Number | | Organization | | | | + + + + + | [facility] | [address] | [place] [address] | [phone] | + + + + + CBC [...] | | | | | | at [facility], [address] | | | | | | [address], | | | | | | [place] [address] | | | | | |Testing performed at [facility], [address] [facility], [place] [address] | | | | | | | | | | + + +---- + + + + + | Specimen | + + | Blood | + + + + + + + | Performing | Address | City/State/Zipcode | Phone Number | | Organization | | | | + + + + + | [facility] | [address] [facility] | [place] [address] | [phone] | + + + + + Vancomycin, [...] | | | | | performed at [facility] | | | | | | [facility];[place], [place] | | | | | | [address] | | | | + + + + + + + + | Specimen | + + | Blood | + + + + + + + | Performing | Address | City/State/Zipcode | Phone Number | | Organization | | | | + + + + + | [facility] | [address] | [place] [address] | [phone] | + + + + + POC Glucose (11/23/2019 8:39 PM PDT) + + + + + + | Component | Value | Ref Range | Performed | Pathologist | | | | | At | Signature | + + + + + + | Glucose, | 195 (H)Comment: Testing | 65 - 99 mg/dL | [facility] | | | POC | performed at [facility];[address] | | LABORATORY | | | | [address];[place] | | | | | | [address] | | | | + + + + + + + + | Specimen | + + | | + + + + + + + | Performing | Address | City/State/Zipcode | Phone Number | | Organization | | | | + + + + + | [facility] | [address] | [place] [address] | [phone] | + + + + + POC [...] | | | POC | performed at [facility];[address] | | LABORATORY | | | | [address];[place], [place] | | | | | | [address] | | | | + + + + + + + + | Specimen | + + | | + + + + + + + | Performing | Address | City/State/Zipcode | Phone Number | | Organization | | | | + + + + + | [facility] | [address] | [place] [address] | [phone] | + + + + + XR [...] | | | POC | performed at [facility];[address] | | LABORATORY | | | | [address];[place] | | | | | | [address] | | | | + + + + + + + + | Specimen | + + | | + + + + + + + | Performing | Address | City/State/Zipcode | Phone Number | | Organization | | | | + + + + + | [facility] | [address] | [place] [address] | [phone] | + + + + + Culture, [...] RESULT | Testing performed at | | [facility] | | | | [facility], [address] [facility] | | LABORATORY | | | | [place] | | | | | | [address]Abtsbef: Testing | | | | | | performed at [facility], [address] | | | | | | [facility] [address], | | | | | | [place] [address] | | | | + + + + + + + + | Specimen | + + | Body Fluid - Pus | | specimen (specimen) | + + + + + + + | Performing | Address | City/State/Zipcode | Phone Number | | Organization | | | | + + + + + | [facility] | [address] | [place] [address] | [phone] | + + + + + Medical [...] | | LABORATORY:Technical preparation was performed by [employer], | | | [address] [place] [address] (Container Repairer: | | | Sebas Tolliver D.O.; CLIA#: [id number]).Professional interpretation | | | [facility] | | | [place] [address] (Container Repairer: Leif | | | Hugh Layne; CLIA#: [id number]).6 Diagnostician: Hector Bryant | | | CT [...] | | |Technical preparation was performed by [facility], [address] [place] [address] (Container Repairer: Sebas Tolliver D.O.; CLIA#: [id number]). | | |Professional interpretation [facility] by [facility], [address] (Container Repairer: Leif Layne M.D.; CLIA#: [id number]).6 | | | | | |Diagnostician: Hector Bryant CT (ASCP) | | |Framing Consultant | | |Diagnostician: Leif Layne MD | [...] | | | clinician's orders. A 12 Somali locking pigtail catheter is placed. | | [...] the | | clinician's orders. A 12 Somali locking pigtail catheter is placed. | | [...] | | | | | performed at [facility] | | | | | | [address];[place], [place] | | | | | | [address] | | | | + + + + + + + + | Specimen | + + | Blood | + + + + + + + | Performing | Address | City/State/Zipcode | Phone Number | | Organization | | | | + + + + + | [facility] | [address] | [place] [address] | [phone] | + + + + + POC [...] | | | POC | performed at [facility];[address] | | LABORATORY | | | | [address];[place], [place] | | | | | | [address] | | | | + + + + + + + + | Specimen | + + | | + + + + + + + | Performing | Address | City/State/Zipcode | Phone Number | | Organization | | | | + + + + + | [facility] | [address] | [place] [address] | [phone] | + + + + + POC Glucose (11/22/2019 8:58 PM PDT) + + + + + + | Component | Value | Ref Range | Performed | Pathologist | | | | | At | Signature | + + + + + + | Glucose, | 174 (H)Comment: Testing | 65 - 99 mg/dL | [facility] | | | POC | performed at [facility];[address] | | LABORATORY | | | | [address];[place] | | | | | | [address] | | | | + + + + + + + + | Specimen | + + | | + + + + + + + | Performing | Address | City/State/Zipcode | Phone Number | | Organization | | | | + + + + + | [facility] | [address] | [place] [address] | [phone] | + + + + + POC Glucose (11/22/2019 4:13 PM PDT) + + + + + + | Component | Value | Ref Range | Performed | Pathologist | | | | | At | Signature | + + + + + + | Glucose, | 94Comment: Testing | 65 - 99 mg/dL | [facility] | | | POC | performed at [facility];[address] | | LABORATORY | | | | [address];[place], [place] | | | | | | [address] | | | | + + + + + + + + | Specimen | + + | | + + + + + + + | Performing | Address | City/State/Zipcode | Phone Number | | Organization | | | | + + + + + | [facility] | [address] | [place] [address] | [phone] | + + + + + POC [...] | | | POC | performed at [facility];[address] | | LABORATORY | | | | [address];[place] | | | | | | [address] | | | | + + + + + + + + | Specimen | + + | | + + + + + + + | Performing | Address | City/State/Zipcode | Phone Number | | Organization | | | | + + + + + | [facility] | [address] [facility] | [place] [address] | [phone] | + + + + + POC Glucose (11/22/2019 9:28 AM PDT) + + + + + + | Component | Value | Ref Range | Performed | Pathologist | | | | | At | Signature | + + + + + + | Glucose, | 92Comment: Testing | 65 - 99 mg/dL | DON | | | POC | performed at [facility];[address] | | LABORATORY | | | | [address];[place] | | | | | | [address] | | | | + + + + + + + + | Specimen | + + | | + + + + + + + | Performing | Address | City/State/Zipcode | Phone Number | | Organization | | | | + + + + + | [facility] | [address] | [place] [address] | [phone] | + + + + + Magnesium (11/22/2019 5:18 AM PDT) + + + + + + | Component | Value | Ref Range | Performed | Pathologist | | | | | At | Signature | + + + + + + | Magnesium | 1.3 (L)Comment: Testing | 1.7 - 2.4 mg/dL | DON | | | | performed at [facility];[address] | | LABORATORY | | | | [address];[place] | | | | | | [address] | | | | + + + + + + + + | Specimen | + + | Blood | + + + + + + + | Performing | Address | City/State/Zipcode | Phone Number | | Organization | | | | + + + + + | [facility] | [address] | [place] [address] | [phone] | + + + + + Protime [...] | | | | | performed at [facility];[address] | | | | | | [address];[place], [place] | | | | | | [address] | | | | + + + + + + + + | Specimen | + + | Blood | + + + + + + + | Performing | Address | City/State/Zipcode | Phone Number | | Organization | | | | + + + + + | [facility] | [address] | [place] [address] | [phone] | + + + + + CBC [...] LABORATORY | | | | performed at [facility] | | | | | | [address];[place], [place] | | | | | | [address] | | | | | | | | | | + + + + + + + + | Specimen | + + | Blood | + + + + + + + | Performing | Address | City/State/Zipcode | Phone Number | | Organization | | | | + + + + + | [facility] | [address] | [place] [address] | [phone] | + + + + + Comprehensive [...] 52 (L)Comment: GFR <60: | >60 | [facility] | | | GFR | CHRONIC [...] | | | | | | MDRD IDMA traceable | | | | | | equation.Testing | | | | | | performed at [facility] | | | | | | [facility];[place], [place] | | | | | | [address] | | | | + + + + + + + + | Specimen | + + | Blood | + + + + + + + | Performing | Address | City/State/Zipcode | Phone Number | | Organization | | | | + + + + + | [facility] | [address] | [place] [address] | [phone] | + + + + + Basic [...] | | | | | performed at [facility];[address] | | | | | | [facility];[place], [place] | | | | | | [address] | | | | + + + + + + + + | Specimen | + + | Blood | + + + + + + + | Performing | Address | City/State/Zipcode | Phone Number | | Organization | | | | + + + + + | [facility] | [address] [facility] | [place] [address] | [phone] | + + + + + documented [...] | | | | AC, NPO, Daytime 1073-4526 Use | | | | | | | NIGHT DOSE for doses scheduled: | | | | | | | HS, Nighttime 2176-8565 If | | | | | | [...] 10:31 | | | | | Starting [facility] 11/23/19 at 1027 | | AM [...] PM PDT | | | | | [facility] 11/23/19 at 1115, Please | | [...]
--- OUTSIDE RECORDS SUMMARY | ~2020-02-01 | XMS | Encounter Summary ---
Demographics + + + | Address | [address] | | | [place] [address] | + + + | Home Phone [...] Team Providers + +------+ + | Care Tile Mechanic Name | Role | Phone | + [...] | hand | [address] | | | | n | numbness | [address] | [place], | | | | | Hand | [place], | [place] [address] | | | | | weakness | [place] [address] | Phone: | | | | | History of | Phone: | [phone] | | | | | diabetes | [phone] | Fax: | | | | | mellitus | Fax: | [phone] | | | | | Procedures | [phone] | | | | | | DOS [...] PHYSIATRY [address] | MD [address] | polyneuropathy | | | | [address] | [place] | (Primary Dx); | | | | [facility] [place] | [address] | Bilateral hand | | | | [address] | | numbness; Hand | | | | [phone] | | weakness; History of | | [...] might be different fro m the original. [facility] Physical Medicine & Rehabilitation [address] [place] [address], [address] [place] [address] Test Date: 10/06/2016 Patient Name: Petra Dangelo : 1965 Physician: Moise Ceballos MD (Jr.) MR #: [id number] Sex: Female Referring Physician: Roberth Gaspar MD [...] nds which she describes as loss of mold unloader strength. She reports numbness in both feet [...] to mid-forelegs bilaterally. She has 4/5 hand mold unloader strength bilaterally. The remainder of strength is [...] may represent possible left ulnar neuropathy at [facility] jennifer l versus multi-focal mono neuropathy. This [...]
--- OUTSIDE RECORDS SUMMARY | ~2020-02-01 | XMS | Encounter Summary ---
Demographics + + + | Address | [address] | | | [place] [address] | + + + | Home Phone [...] Team Providers + +------+ + | Care Commissioner Of Internal Revenue Name | Role | Phone | + [...] + + | 01/05/ | Office | [facility] | Oc Mooney, | Peripheral | | 2017 | Visit | [address]SIATRY [address] | [address] | polyneuropathy | | | | [address] | [place] | (Primary Dx); | | | | [place] | [address] | Neuropathic pain; | | | | [address] | | Vitamin B12 | | | | [phone] | | deficiency; Angular | | | [...] encounter Patient Instructions Patient Instructions Donna Jara, Veneer Jointer Offbearer - 01/05/2017 4:00 PM PDTBegin the consumption [...] has no apparent deficits with short or senior care memory. The cranial nerves appear grossly intact. Subjective sensory change in both hands, unchanged compared to 10/06/2016. 4/5 hand beauty sales advisor bilaterally. Remainder of strength normal in major [...] She was advised to follow up with Rboerth Gaspar MD t o treat this finding. [...]
--- OUTSIDE RECORDS SUMMARY | ~2020-02-01 | XMS | Encounter Summary ---
Demographics + + + | Address | [address] | | | [place] [address] | + + + | Home Phone [...] Author + + + | Author | [facility] | | | and [place] | + + + | Organization | [facility] | | | [...] Team Providers + +------+ + | Care Gunstock Spray Unit Feeder Name | Role | Phone | + [...] + + | 11/11/ | [facility] [place] | Oc Mooney, | Lab Results | | 2017 | | [address]SIATRY [address] | MD [address] | | | | | [address] | [place] | | | | | [place] | [address] | | | | | [address] | | | | | | [phone] | | | +--------+ + + + [...] Miscellaneous Notes Telephone Encounter - Donna Jara, Pet Care Attendant - 11/11/2016 2:[address] [...]
--- OUTSIDE RECORDS SUMMARY | ~2020-02-01 | XMS | Encounter Summary ---
Demographics + + + | Address | [address] | | | [place] [address] | + + + | Home Phone [...] Team Providers + +------+ + | Care Mandarin Teacher Name | Role | Phone | + [...] | | | | EM[facility] | [place] [address] | | | 01/07/ | | [address] | [phone] | | | 2012 | | [place], [place] | | | | | | [address] | | | | | | [phone] | | | +--------+ + + + [...]
--- OUTSIDE RECORDS SUMMARY | ~2020-02-01 | XMS | Encounter Summary ---
Demographics + + + | Address | [address] | | | [place] [address] | + + + | Home Phone | | + + + | Preferred Language | Unknown | + + + | Marital Status | Legally | + + + | Cheondoism Affiliation | Unknown | + + + | Race | Unknown | + + + | Ethnic Group | Unknown | + + + Author + + + | Author | [facility] | | | and [place] | + + + | Organization | [facility] | | | [...] Team Providers + +------+ + | Care Emergency Dispatch Operator Name | Role | Phone | [...] + + | 12/04/ | Office | [facility] | Andrew Cross DO | Empyema of pleural | | 2020 | Visit | INFECTIOUS DISEASE | [address] | space ([facility]) (Primary | | | | [address] | [place] [address] | Dx); MRSA infection | | | | [place], [place] | [phone] | | | | | [address] | | (methicillin-resista | | | | [phone] | | nt Staphylococcus | | | [...]
--- OUTSIDE RECORDS SUMMARY | ~2020-02-01 | XMS | Encounter Summary ---
Demographics + + + | Address | [address] | | | [place] [address] | + + + | Home Phone | | + + + | Preferred Language | Unknown | + + + | Marital Status | Legally | + + + | Yarsanism Affiliation | Unknown | + + + | Race | Unknown | + + + | Ethnic Group | Unknown | + + + Author + + + | Author | [facility] | | | and [place] | + + + | Organization | [facility] | | | [...] Team Providers + +------+ + | Care Malt Specifications Control Assistant Name | Role | Phone | [...] + + | 12/04/ | Office | [facility] | Andrew Cross DO | Empyema of pleural | | 2020 | Visit | INFECTIOUS DISEASE | [address] | space ([facility]) (Primary | | | | [address] | [place] [address] | Dx); MRSA infection | | | | [place], [place] | [phone] | | | | | [address] | | (methicillin-resista | | | | [phone] | | nt Staphylococcus | | | [...]
--- OUTSIDE RECORDS SUMMARY | ~2020-02-01 | XMS | Encounter Summary ---
Demographics + + + | Address | [address] | | | [place] [address] | + + + | Home Phone | | + + + | Preferred Language | Unknown | + + + | Marital Status | Legally | + + + | Anabaptist Affiliation | Unknown | + + + | Race | Unknown | + + + | Ethnic Group | Unknown | + + + Author + + + | Author | [facility] | | | and [place] | + + + | Organization | [facility] | | | [...] Team Providers + +------+ + | Care Microeconomics Professor Name | Role | Phone | [...] + | 11/20/ | Hospital | [facility] | EmyStephany jaramillomoises, | Anemia of chronic | | 2020 - | Encounter | [facility] | [address] | disease; Chronic | | | | [address] | [place] [address] | pain syndrome; CKD | | 11/28/ | | [place], [place] | [phone] | (chronic kidney | | 2020 | | [address] | | disease), stage III | | | | [phone] | Charlene Rao DO | ([facility]); Empyema of | | | | | [address] | pleural space ([facility]); | | | | | [place] [address] | Essential | | | | | [phone] | hypertension, | | | | | | benign; Pneumonia of | | | | | Fredrick Rubin | right lower lobe | | | | | MD Eloise [address] | due to methicillin | | | | | BLVD [place], [place] | resistant | | | | | [address] | Staphylococcus | | | | | | aureus (MRSA) ([facility]); | | | | | Sanaz Vásquez, | Type 2 diabetes | | | | | [address] | mellitus 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, without | | | | | | long-term current | | | | | Romario Rodrigez MD | use of insulin | | | | | [address] | ([facility]); Pulmonary | | | | | [place] [address] | nodules; | | | | | [phone] | Thrombocytosis | | | | | | ([facility]); Loculated | | | | | | pleural effusion; | | | | | | EVA (acute kidney | | | | | | injury) ([facility]); | | | | | | Sepsis, due to | | | | | | unspecified | | | | | | organism, | | | | | | unspecified whether | | | | | | acute organ | | | | | | dysfunction present | | | | | | ([facility]); Chronic | | | | | | obstructive | | | | | | pulmonary disease, | | | | | | unspecified COPD | | | | | | type ([facility]); Weakness | | | | | | [...] effusion. The patient was [facility]2019 due to fever, dyspne [...] of empyema. The patient was transferred to [facility] for further workup. Interventional radio [...] Value Units Date/Time Culture, Body Fluid Sterile [[id number]] Collected: 11/23/19 1055 Order Status: Completed Lab Status: Final result Updated: 11/27/19 0657 Specimen: Body Fluid from Abscess Gram Stain Result NO CELLS OR ORGANISMS SEEN RESULT NO GROWTH 4 DAYS RESULT Testing performed at [facility], [address] [place] [address] Comment: Testing performed at [facility], [facility] [place] [address] Clostridium difficile A and B EIA [[id number]] Order Status: Canceled Lab Status: No result [...] analysis per the clinician's orders. A 12 Wallisian locking pigtail catheter is placed. Signed by: [...] December 08, 2019 Discharge Information: Follow up: [facility] INFECTIOUS DISEASE [address] [facility] [id number] On 12/07/2019 follow up infection/pneumonia Remi Talley MD [address] [address] Schedule an appointment as soon as possible [...] might be di fferent from the original. [facility] Service: Hospitalist Progress Note Pt: Phoenix Dangelo AGE/SEX: 54 y.o. female ROOM: 9101/9101-01 : 1965 PCP: Remi Talley MD ADMIT DATE: 11/21/2019 TODAY'S DATE: 11/28/2019 Hospital Day/Hospital Course: LOS: [address] Rubin "Patient is a 54 year old female with past medical history of HTN, HLD, DM Type 2, COPD and Chronic Pain who was first admitted at [facility] on11/11/19due to dyspnea and fevers.Her labs [...] suggestive of empyema.She was then transferred to [facility] for CT Surgery evaluation. She [...] hours. No results for input(s): PHART, PO2ART, OQS8GMU, [id number], BEART in the last 168 hours. Recent [...] analysis per the clinician's orders. A 12 Wallisian locking pigtail catheter is placed. Signed by: [...] and managing patient and counseling/coordination. Dictation software, [employer], used which may contain error for similar [...] this note might be different from the [facility] Service: Infectious Disease Progress Note [...] Psychiatric: Appropriate mood and affect PICC at [facility] DATA Recent Results (from the past 24 [...] 4. Unchanged pigtail catheter. Signed by: Hugh Traoer Shawn Sign Date/Derrick e: 11/28/2019 7:59 AM [...] analysis per the clinician's orders. A 12 Wallisian locking pigtail catheter is placed. Signed by: [...] analysis per the clinician's orders. A 12 Wallisian locking pigtail catheter is placed. Signed by: Hugh Lgegett Richard Sign Date/Time: 11/23/2019 11:36 AM Xr [...] M D - 11/27/2019 10:18 AM PDT [facility] Service: Infectious Disease Progress Note Hospital [...] Psychiatric: Appropriate mood and affect PICC at [facility] DATA Recent Results (from the past 24 [...] Chronic Pain who was first admitted at [facility] on 11/11/19 due to dyspnea an [...] empyema . She was then transferred to [facility] for CT Surgery evaluation. She [...] diagnosed with Pneumonia and admit brandyn at [facility] requiring IV antibiotics. She improved but then [...] then she will need rehab preferably at [facility] for IV antibiotics. [...] in another 1 to 2 days to [facility] in [facility] or when st able and cleared [...] 11/26/2019 1:14 PM Pharmacist: Mercedes Roberts [facility] Fredrick Killian MD - 11/26/2019 8:29 AM [...] Chronic Pain who was first admitted at [facility] on 11/11/19 due to dyspnea an [...] empyema . She was then transferred to [facility] for CT Surgery evaluation. She [...] PICC line will be placed soon for assisted antibiotics. Anemia of Chronic Disease with Vitamin [...] in another 2 to 3 days to [facility] in [facility] or when st able and improved and cleared by ID and IR services. Fredrick Rubin MD 11/26/2019 aranada, Abi hannah MD - 11/25/2019 2:11 PM PDTFormatting of this note might be different from the [facility] Service: Infectious Disease Progress Note [...] Lovenox. Eventual plan to Swing bed at [facility] in [place]. ? Wednesday or Wednesday. Sanaz Vásquez MD [...] analysis per the clinician's orders. A 12 Wallisian locking pigtail catheter is placed. Signed by: [...] might be different from the or iginal. [facility] Service: Infectious Disease Progress Note Hospital [...] SEEN Gram Stain Result Testing performed at [facility], [address] [place] [address] RESULT PENDING POC Glucose Collection Time: 11/23/19 [...] THIS TIME P RESULT Testing performed at [facility], [address] [place] [address] P Comment: Testing performed at [facility], [address] [place] [address] Resulting Agency [facility] Specimen Collected: 11/23/19 10:55 Last Resulted: [...] Chronic Pain who was first admitted at [facility] on 11/11/19 due to dyspnea an [...] empyema . She was then transferred to [facility] for CT Surgery evaluation. She [...] SEEN Gram Stain Result Testing performed at [facility], [address] [place] [address] RESULT PENDING POC Glucose Result Value Ref [...] diagnosed with Pneumonia and a dmitted at [facility] requiring IV antibiotics. She improved but then [...] another 2 to 3 [facility] or when stable and improved and cleared by ID and IR services. Fredrick Rubin MD 11/24/2019 Shital Carmichael [facility] - 11/23/2019 11:30 PM PDTFormatting of this [...] the following patient-specific PK parameters. Ke = 0.89437 1/hr T1/2 = 21 hours Estimated time [...] as indicated. Thank You, Allyssa Johnson, [facility], 11/23/2019, 11:21 PM Patricia Alcocer RN - 11/23/2019 12:34 PM [facility] received [facility] for home [facility]. Will invest igate benefits and follow up with CM. Thank you for your referral. Patricia Macedo RN [phone]: We are not contracted with this [facility] OR plan, CM notified.Electronically sosa d [...] Chronic Pain who was first admitted at [facility] on 11/11/19 due to dyspnea an [...] empyema . She was then transferred to [facility] for CT Surgery evaluation. Events [...] (D10W) infusion Intravenous Continuous PRN María Elena Bals MD docusate sodium (COLACE) capsule 100 mg [...] diagnosed with Pneumonia and a dmitted at [facility] requiring IV antibiotics. She improved but then [...] this note might be different from the [facility] Service: Infectious Disease Progress Note [...] might be different from the haritha robbins [facility] Adult Hospitalist Progress Note Hospital Day: 1 HPI SUMMARY: Mrs. Dangelo is a 54 yo F with PMHx of DM2, chronic pain, COPD who presented to [facility] on 11/11/19 with SOB and fevers. She [...] suggestive of empyema. Patient transferr ed to [facility] for CT Surgery consultation. CT [...] socks. Charlene Rao DO 11/22/2019 Michael Valerio [facility] - 11/21/2019 10:55 PM PDT Vancomycin Dosing [...] might be different from the origi nal. [facility] Service: Hospitalist Admission History & [...] Patient came as a direct admit from [facility] for right-sided empyema. This patient was admitted to [facility] on November 11, 2019 with chief [...] of empyema. So patient was transferred for [facility] othoracic surgery consultation here. Today she [...] GALLBLADDER SURGERY 1997 [facility] SINUS SURGERY 1998 [facility] Medications Prior to Admission Medication Sig [...] file Gets together: Not on file Attends latter-day service: Not on file Active member of [...] on file Social History Narrative Lives in [place] with her brother and father, independent with [...] PDTAssociated Order(s): PROVIDER TO PROVIDER C ONSULT [facility] Service: Infectious Diseases Initial Consult Note Date of Admission: 11/21/2019 Reason for Consultation: Advice on antibiotics for right lower lobe MRSA pneumonia, suspect ed empyema Requesting Physician: Dr. Rhonda Blas, Hospitalist History Obtained From: Patient, Chart review and Referring MD CHIEF COMPLAINT: Transferred from [facility] for further care of parapneumonic effusio n, [...] the past. The patient was admitted at [facility] on 11/11/2019 for shortness of breath [...] 11/16 on p.o. doxycycline [facility]. The patient returned to the emergency room within a few hours of discharge for worsening sy mptoms. Chest x-ray showed right-sided pleural effusion. On readmission, the patient's WBC was 22,000. She was continued on p.o. doxycycline. She was described as having nonproduct fernando cough, episodic dyspnea and having no fevers. WBC ranged from 18-20,000. On 11/20, [facility] t CT scan showed loculated right [...] given 2 g of IV vancomycin at [facility] and then transferred to [facility] for CT surgery evaluation. On presentation at [facility] on 11/20, she was described [...] Left 2000 Dr. Anguiano GALLBLADDER SURGERY 1997 [facility] SINUS SURGERY 1998 [facility] Allergies Allergen Reactions Penicillins Shortness Of [...] activity: Never Social History Narrative Lives in [place] with her brother and father, independent with [...] note might be different from the original. [facility] Cardiothoracic Surgery CONSULTATION NOTE Pt. [...] chronic pain syndrome. Patient was admitted to [facility] on November 11, 2019 wit h [...] Left 1999 Dr. Anguiano GALLBLADDER SURGERY 1997 [facility] SINUS SURGERY 1998 [facility] Allergies: Allergies Allergen Reactions Penicillins Shortness [...] 2 g Topical 4x Daily María Elena Blsa MD 2 g at 10/27 12/15 215 [...] mg/kg (Adjusted) Intravenous Q12H Nita Salvador, [facility] vancomycin per pharmacy Other Pharmacy Consult María [...] file Gets together: Not on file Attends latter-day service: Not on file Active member of [...] on file Social History Narrative Lives in [place] with her brother and father, independent with [...] signed by: PETER Britt 11/22/2019 7:12 AM [facility] Associated attestation - Akhil Walden MD - [...] Integrity Outcome: Met Pt to discharge to [facility] bed. To leave PICC line in for continued antibiotic treatment. Report called to nurse Limon. All questions answered. D/C per taxi at 1400. E lectronically signed by Bev Rico RN at 11/29/2019 2:01 PM PDTPlan of Jef Celestin MSW - 11/29/2019 1:02 PM PDTCare Management SNF/LTACH Final Discharge Plan Readmission Risk: Medium Discharge Plan Planned Disposition: Swing bed Planned Destination: [facility] Swing [facility] [place] of Choice: YES Facility Information: Address: [address] [place] [address] Community Care Provider: Dr. Romero Patient/Family Notified: yes Transportation will be provided by: taxi, other (comment)([employer] - ) Transportation Date/Time: taxi, other (comment)([employer] - [phone]) 1400 Ride Contact: Name: [facility] MARYVALE [employer] [phone] Phone: [employer] [phone] Confirmed 3 Qualifying Midnights: yes SNF Authorization Received: yes Benefits and Co-Pays: none at this time - already obtained [employer] Authorization PASRR Completed: yes Electronically signed: KOREY CASTRO 11/29/2019 1:02 PM lan of Jef Green MSW - 11/29/2019 8:34 AM PDTDISCHARGE PLANNING METER READER INSPECTOR p/c msg with Anthony Davison, Admissions at [facility] ([phone] ph, fax) regarding status of insurance authorization from [facility] Medic aid, with hopes of obtaining it this morning to discharge today. METER READER INSPECTOR p/c msg with Debra Combs, Admissions at [facility] ([phone] ph). METER READER INSPECTOR p/c with Debra Combs, Admissions at [facility] ([phone] ph) states their census went high last night and unable to accept this Pt today. METER READER INSPECTOR met with Pt regarding this update about [place] and Pt states her preference is now (a) [facility] Swing Bed. and (b) [facility] [place]. METER READER INSPECTOR p/c left msg with Rhondi, admissions at [facility] [place] regarding ref ashwini, METER READER INSPECTOR p/c with Taisha Michael, [facility] Swing Bed [facility], states will consider Pt , reviewing referral. States they have open beds, and we already have insurance auth from [facility] [employer] [facility] [phone] ph. METER READER INSPECTOR p/c with Rhondi with [facility], states they already have insurance auth f rom [facility] [phone] ph, DCP: Pending placement at [facility] Swing Bed Program. If Pt goes to [facility] Swing Bed, Pt will need transportation from [employer] [phone], they often ask for 24 hrs Avoidable days documented for delay with insurance authorization for [facility]. KOREY CASTRO [phone] cell lan of Care - Jonathon Lu, PT - 11/29/2019 7:32 AM PDT Physical Therapy Treatment Note Recommended discharge disposition: prison facility Post discharge physical therapy recommendation: will [...] Device: none Supine to Sit, Level of [place]: modified independent Safety Issues: decreased use of legs for bridging/pushing Transfers Additional Documentation: sit to/from stand Sit-Stand, Level of [place]: contact guard assist Stand-Sit, Level of [place]: contact guard assist [id number]-Mhn, Assistive Device: 4 wheeled walker (4WW) Impairments: impaired balance Gait Level of [place]: contact guard assist Assistive Device: 4 wheeled walker (4WW) Distance (feet): 50 x 2 Impairments: impaired balance Goals Reflects last filed data and may be from multiple contributors. Gait Goal Most Recent Value LTG Status not met, continued at 11/29/2019 0732 LTG [place] Level modified independent at 11/29/2019 0732 LTG Assistive Device cane (straight, single point) at 11/29/2019 0732 LTG Distance (feet) 150 at 11/29/2019 0732 Stair Goal Most Recent Value LTG Status not met, continued at 11/29/2019 0732 LTG [place] Level stand by assist at 11/29/2019 0732 [...] Physical Therapy Treatment Note Recommended discharge disposition: prison facility Post discharge physical therapy recommendation: home [...] fatigues quickly. Encouraged pt. to ambulate with staff developer multiple times throughout the day. Precautions Precautions/Limitations: falls Transfers Additional Documentation: sit to/from stand Sit-Stand, Level of [place]: contact guard assist Stand-Sit, Level of [place]: contact guard assist [id number]-[id number]-Nup, Assistive Device: 4 wheeled walker (4WW) Impairments: impaired balance Gait Level of [place]: contact guard assist Assistive Device: 4 wheeled walker (4WW) Distance (feet): 40 x 2 Additional Documentation: safety, impairments Impairments: impaired balance Goals Reflects last filed data and may be from multiple contributors. Gait Goal Most Recent Value LTG [place] Level modified independent at 11/22/2019 1045 LTG Assistive Device cane (straight, single point) at 11/22/2019 1045 LTG Distance (feet) 150 at 11/22/2019 1045 Stair Goal Most Recent Value LTG [place] Level stand by assist at 11/22/2019 1045 [...] Rodrigez MD Transferring Medical Center: Receiving Facility: [facility] Provider after Transfer: PCP NURSE ASSESSMENT Recent [...] Follow-Up Appointments House provider in 3-5 days [facility] INFECTIOUS DISEASE [address] [facility] [phone] On 12/07/2019 follow up infection/pneumonia Remi Talley MD [address] [phone] Schedule an appointment as soon as possible [...] MSW - 11/28/2019 11:29 AM PDTDISCHARGE PLANNING METER READER INSPECTOR p/c with Anthony Saman, Admissions at [facility] ([phone] ph, fax) states they want to accept this patient back to their hospital, states they a re awaiting for insurance authorization from [facility] Medicaid, states this usuall y takes about 24 hours, states this has been already started. DCP: Pending at [facility] [place] - Awaiting for insurance authoriza tion Avoidable days documented for delay with insurance authorization for [facility] Med icaid. Anticipated discharge on 11/28 KOREY CASTRO [phone] cell lan of [place] - Renetta Giang [...] MSW - 11/27/2019 3:26 PM PDTDISCHARGE PLANNING METER READER INSPECTOR p/c with Debra Combs, jose at [facility], states their physician Leif Richards DO is currently reviewing the incomplete notes from Gasper Erickson. [facility] at [phone] will provide transportation. DCP: Pending at [facility] KOREY CASTRO [phone] cell lan of Renetta Junior RN - [...] check complete. Adriana Mcnulty RN lan of [facility] - Sakshi Quiñonez cia, RN - 11/26/2019 [...] call light appropriately. A M PDTPlan of [facility] - Adriana Mcnulty RN - 11/25/2019 5:39 [...] ing Next Steps: CM sent referral to [facility] Community Support Services Current Outpt/Agency/Support Groups: [...] home. PT evaluation recommend s Home health, [facility] referral sent and following for discharge If needed. Pt currently on I VAB. Per , Pt IVAB to change to Ceftaroline, for a duration of 2-3 weeks. Pt's in surance not covered by [facility] or [facility]. CM sent referral to [facility] for placement, will need to follow up with updated ID notes from today 0. Likely no other CM needs from Case Management at this time. CM will continue to follow fo r discharge planning, pending clinical course. Electronically signed: Tala Shetty RN 11/24/2019 11:55 AM lan of Care - Carl Yina A, BATTERY PARTS ASSEMBLER - 11/24/2019 10:05 AM PDT Physical Therapy [...] bed rails Supine to Sit, Level of [place]: modified independent Sit to Supine, Level of [place]: modified independent Transfers Additional Documentation: sit to/from stand Sit-Stand, Level of [place]: stand by assist Stand-Sit, Level of [place]: stand by assist [id number], Assistive Device: 2 wheeled walker (FWW) Impairments: impaired balance Gait Level of [place]: contact guard assist Assistive Device: 2 wheeled walker (FWW) Distance (feet): 2x40 Additional Documentation: safety, impairments Impairments: impaired balance Balance Sitting Balance: Static: good balance Sitting Balance: Dynamic: good balance Standing Balance: Static: good balance Standing Balance: Dynamic: fair balance Goals Reflects last filed data and may be from multiple contributors. Gait Goal Most Recent Value LTG [place] Level modified independent at 11/22/2019 1045 LTG Assistive Device cane (straight, single point) at 11/22/2019 1045 LTG Distance (feet) 150 at 11/22/2019 1045 Stair Goal Most Recent Value LTG [place] Level stand by assist at 11/22/2019 1045 [...] return the follow ing day. lan of [facility] Demetris, Tala Jacobs RN - 11/23/2019 [...] Pt currently on IVAB-Va ncomycin and Levofloxacin. [facility] following for potential for home IVABl. [facility] to check insurance coverage for services and to contact this CM. PT recommends home with assist , and Home Health. CM sent referral to [facility] and updated on potential discharge date. [...] loculated pleural effusion Post OP Diagnosis: Same Maintenance Shop Manager: Calderon Leggett MD MD Anesthesia Type: Mod [...] light within reach, cane at bedside, superintendent mechanical socks on, n ight light on. lan [...] safe to return home with assist and [facility] PT. Living Environment Lives With: [...] Device: none Supine to Sit, Level of [place]: independent Sit to Supine, Level of [place]: independent Transfers Additional Documentation: sit to/from stand Sit-Stand, Level of [place]: stand by assist Stand-Sit, Level of [place]: stand by assist [id number], Assistive Device: none, cane (straight, single point) Impairments: impaired balance Gait Gait Comments: With no AD, pt with increased lateral sway and near loss of balance with zackary f-recovery. SPC trialed with giat training on proper use. Level of [place]: stand by assist Assistive Device: cane (straight, [...] contributors. Gait Goal Most Recent Value LTG [place] Level modified independent at 11/22/2019 1045 LTG Assistive Device cane (straight, single point) at 11/22/2019 1045 LTG Distance (feet) 150 at 11/22/2019 1045 Stair Goal Most Recent Value LTG [place] Level stand by assist at 11/22/2019 1045 [...] Treatment creams applied. lan of Care - [facility] priscilla, KOREY Pang - 11/22/2019 9:19 [...] Testing | 65 - 99 mg/dL | [facility] [facility] | | POC | performed at [facility];[address] | | LABORATORY | | | | [address];[place], [place] | | | | | | [address] | | | | + + + + + + + + | Specimen | + + | | + + + + + + + | Performing | Address | City/State/Zipcode | Phone Number | | Organization | | | | + + + + + | [facility] | [address] | [place] [address] | [phone] | + + + + + POC Glucose (11/29/2019 8:01 AM PDT) + + + + + + | Component | Value | Ref Range | Performed | Pathologist | | | | | At | Signature | + + + + + + | Glucose, | 126 (H)Comment: Testing | 65 - 99 mg/dL | [facility] | | | POC | performed at [facility];[address] | | LABORATORY | | | | [address];[place], [place] | | | | | | [address] | | | | + + + + + + + + | Specimen | + + | | + + + + + + + | Performing | Address | City/State/Zipcode | Phone Number | | Organization | | | | + + + + + | [facility] | [address] | [place] [address] | [phone] | + + + + + Comprehensive [...] | | | | | performed at [facility] | | | | | | [address] [facility];[place], [place] | | | | | | [address] | | | | + + + + + + + + | Specimen | + + | Blood | + + + + + + + | Performing | Address | City/State/Zipcode | Phone Number | | Organization | | | | + + + + + | [facility] | [address] | [place] [address] | [phone] | + + + + + POC [...] | | | POC | performed at [facility];[address] | | LABORATORY | | | | [address];[place] | | | | | | [address] | | | | + + + + + + + + | Specimen | + + | | + + + + + + + | Performing | Address | City/State/Zipcode | Phone Number | | Organization | | | | + + + + + | [facility] | [address] | [place] [address] | [phone] | + + + + + POC Glucose (11/28/2019 5:04 PM PDT) + + + + + + | Component | Value | Ref Range | Performed | Pathologist | | | | | At | Signature | + + + + + + | Glucose, | 92Comment: Testing | 65 - 99 mg/dL | [facility] | | | POC | performed at [facility];[address] | | LABORATORY | | | | [address];[place] | | | | | | [address] | | | | + + + + + + + + | Specimen | + + | | + + + + + + + | Performing | Address | City/State/Zipcode | Phone Number | | Organization | | | | + + + + + | [facility] | [address] | [place] [address] | [phone] | + + + + + POC Glucose (11/28/2019 11:55 AM PDT) + + + + + + | Component | Value | Ref Range | Performed | Pathologist | | | | | At | Signature | + + + + + + | Glucose, | 190 (H)Comment: Testing | 65 - 99 mg/dL | [facility] | | | POC | performed at [facility];[address] | | LABORATORY | | | | [address];[place] | | | | | | [address] | | | | + + + + + + + + | Specimen | + + | | + + + + + + + | Performing | Address | City/State/Zipcode | Phone Number | | Organization | | | | + + + + + | [facility] | [address] | [place] [address] | [phone] | + + + + + XR [...] Testing | 65 - 99 mg/dL | [facility] | | | POC | performed at [facility];[address] | | LABORATORY | | | | [address];[place] | | | | | | [address] | | | | + + + + + + + + | Specimen | + + | | + + + + + + + | Performing | Address | City/State/Zipcode | Phone Number | | Organization | | | | + + + + + | [facility] | [address] | [place] [address] | [phone] | + + + + + XR [...] | | | | | | MDRD IDIL traceable | | | | | | equation.Testing | | | | | | performed at [facility];[address] | | | | | | [facility];[place], [place] | | | | | | [address] | | | | + + + + + + + + | Specimen | + + | Blood | + + + + + + + | Performing | Address | City/State/Zipcode | Phone Number | | Organization | | | | + + + + + | [facility] | [address] | [place] [address] | [phone] | + + + + + CBC [...] LABORATORY | | | | performed at [facility];[address] | | | | | | [address];[place], [place] | | | | | | [address] | | | | | | | | | | + + + + + + + + | Specimen | + + | Blood | + + + + + + + | Performing | Address | City/State/Zipcode | Phone Number | | Organization | | | | + + + + + | [facility] | [address] | [place] [address] | [phone] | + + + + + POC [...] | | | POC | performed at [facility];[address] | | LABORATORY | | | | [address];[place], [place] | | | | | | [address] | | | | + + + + + + + + | Specimen | + + | | + + + + + + + | Performing | Address | City/State/Zipcode | Phone Number | | Organization | | | | + + + + + | [facility] | [address] | [place] [address] | [phone] | + + + + + POC [...] | | | POC | performed at [facility];[address] | | LABORATORY | | | | [address];[place], [place] | | | | | | [address] | | | | + + + + + + + + | Specimen | + + | | + + + + + + + | Performing | Address | City/State/Zipcode | Phone Number | | Organization | | | | + + + + + | [facility] | [address] | [place] [address] | [phone] | + + + + + POC Glucose (11/27/2019 12:22 PM PDT) + + + + + + | Component | Value | Ref Range | Performed | Pathologist | | | | | At | Signature | + + + + + + | Glucose, | 150 (H)Comment: Testing | 65 - 99 mg/dL | [facility] | | | POC | performed at [facility];[address] | | LABORATORY | | | | [address];[place] | | | | | | [address] | | | | + + + + + + + + | Specimen | + + | | + + + + + + + | Performing | Address | City/State/Zipcode | Phone Number | | Organization | | | | + + + + + | [facility] | [address] | [place] [address] | [phone] | + + + + + Comprehensive [...] 32 (L)Comment: GFR <60: | >60 | [facility] | | | GFR | CHRONIC [...] | | | | | | MDRD IDIL traceable | | | | | | equation.Testing | | | | | | performed at [facility], [address] | | | | | | [facility], | | | | | | [place] [address] | | | | + + + + + + + + | Specimen | + + | Blood | + + + + + + + | Performing | Address | City/State/Zipcode | Phone Number | | Organization | | | | + + + + + | [facility] | [address] | [place] [address] | [phone] | + + + + + POC [...] | | | POC | performed at [facility];[address] | | LABORATORY | | | | [address];[place] | | | | | | [address] | | | | + + + + + + + + | Specimen | + + | | + + + + + + + | Performing | Address | City/State/Zipcode | Phone Number | | Organization | | | | + + + + + | [facility] | [address] | [place] [address] | [phone] | + + + + + XR [...] LABORATORY | | | | performed at [facility], [address] | | | | | | [address], | | | | | | [place] [address] | | | | | | | | | | + + + + + + + + | Specimen | + + | Blood | + + + + + + + | Performing | Address | City/State/Zipcode | Phone Number | | Organization | | | | + + + + + | [facility] | [address] | [place] [address] | [phone] | + + + + + POC [...] | | | POC | performed at [facility];[address] | | LABORATORY | | | | [address];[place], [place] | | | | | | [address] | | | | + + + + + + + + | Specimen | + + | | + + + + + + + | Performing | Address | City/State/Zipcode | Phone Number | | Organization | | | | + + + + + | [facility] | [address] | [place] [address] | [phone] | + + + + + Lactic Acid (11/26/2019 8:22 PM PDT) + + + + + + | Component | Value | Ref Range | Performed | Pathologist | | | | | At | Signature | + + + + + + | Lactate, | 1.3Comment: Testing | 0.4 - 2.0 | [facility] | | | Serum | performed at [facility];888 | mmol/L | LABORATORY | | | | [address];[place], [place] | | | | | | [address] | | | | + + + + + + + + | Specimen | + + | Blood | + + + + + + + | Performing | Address | City/State/Zipcode | Phone Number | | Organization | | | | + + + + + | [facility] | [address] | [place] [address] | [phone] | + + + + + POC [...] | | | POC | performed at [facility];[address] | | LABORATORY | | | | [address];[place] | | | | | | [address] | | | | + + + + + + + + | Specimen | + + | | + + + + + + + | Performing | Address | City/State/Zipcode | Phone Number | | Organization | | | | + + + + + | [facility] | [address] | [place] [address] | [phone] | + + + + + POC Glucose (11/26/2019 5:14 PM PDT) + + + + + + | Component | Value | Ref Range | Performed | Pathologist | | | | | At | Signature | + + + + + + | Glucose, | 173 (H)Comment: Testing | 65 - 99 mg/dL | [facility] | | | POC | performed at [facility];[address] | | LABORATORY | | | | [address];[place] | | | | | | [address] | | | | + + + + + + + + | Specimen | + + | | + + + + + + + | Performing | Address | City/State/Zipcode | Phone Number | | Organization | | | | + + + + + | [facility] | [address] | [place] [address] | [phone] | + + + + + POC Glucose (11/26/2019 12:49 PM PDT) + + + + + + | Component | Value | Ref Range | Performed | Pathologist | | | | | At | Signature | + + + + + + | Glucose, | 162 (H)Comment: Testing | 65 - 99 mg/dL | [facility] | | | POC | performed at [facility];[address] | | LABORATORY | | | | [address];[place], [place] | | | | | | [address] | | | | + + + + + + + + | Specimen | + + | | + + + + + + + | Performing | Address | City/State/Zipcode | Phone Number | | Organization | | | | + + + + + | [facility] | [address] | [place] [address] | [phone] | + + + + + CBC [...] | | | | | | at [facility], [address] | | | | | | [facility], | | | | | | [place] [address] | | | | | |Testing performed at [facility], [address] [place] [address] | | | | | | | | | | + + +---- + + + + + | Specimen | + + | Blood | + + + + + + + | Performing | Address | City/State/Zipcode | Phone Number | | Organization | | | | + + + + + | [facility] | [address] | [place] [address] | [phone] | + + + + + POC [...] | | | POC | performed at [facility];[address] | | LABORATORY | | | | [address];[place] | | | | | | [address] | | | | + + + + + + + + | Specimen | + + | | + + + + + + + | Performing | Address | City/State/Zipcode | Phone Number | | Organization | | | | + + + + + | [facility] | [address] | [place] [address] | [phone] | + + + + + Basic [...] | | | | | performed at [facility], [address] | | | | | | [facility], | | | | | | [place] [address] | | | | + + + + + + + + | Specimen | + + | Blood | + + + + + + + | Performing | Address | City/State/Zipcode | Phone Number | | Organization | | | | + + + + + | [facility] | [address] | [place] [address] | [phone] | + + + + + DIAGNOSTIC [...] | | | POC | performed at [facility];[address] | | LABORATORY | | | | [address];[place] | | | | | | [address] | | | | + + + + + + + + | Specimen | + + | | + + + + + + + | Performing | Address | City/State/Zipcode | Phone Number | | Organization | | | | + + + + + | [facility] | [address] | [place] [address] | [phone] | + + + + + POC Glucose (11/25/2019 8:35 PM PDT) + + + + + + | Component | Value | Ref Range | Performed | Pathologist | | | | | At | Signature | + + + + + + | Glucose, | 199 (H)Comment: Testing | 65 - 99 mg/dL | [facility] | | | POC | performed at [facility];[address] | | LABORATORY | | | | [address];[place] | | | | | | [address] | | | | + + + + + + + + | Specimen | + + | | + + + + + + + | Performing | Address | City/State/Zipcode | Phone Number | | Organization | | | | + + + + + | [facility] | [address] | [place] [address] | [phone] | + + + + + POC Glucose (11/25/2019 5:08 PM PDT) + + + + + + | Component | Value | Ref Range | Performed | Pathologist | | | | | At | Signature | + + + + + + | Glucose, | 177 (H)Comment: Testing | 65 - 99 mg/dL | [facility] | | | POC | performed at [facility];[address] | | LABORATORY | | | | [address];[place] | | | | | | [address] | | | | + + + + + + + + | Specimen | + + | | + + + + + + + | Performing | Address | City/State/Zipcode | Phone Number | | Organization | | | | + + + + + | [facility] | [address] | [place] [address] | [phone] | + + + + + POC Glucose (11/25/2019 12:18 PM PDT) + + + + + + | Component | Value | Ref Range | Performed | Pathologist | | | | | At | Signature | + + + + + + | Glucose, | 190 (H)Comment: Testing | 65 - 99 mg/dL | [facility] | | | POC | performed at [facility];[address] | | LABORATORY | | | | [address];[place], [place] | | | | | | [address] | | | | + + + + + + + + | Specimen | + + | | + + + + + + + | Performing | Address | City/State/Zipcode | Phone Number | | Organization | | | | + + + + + | [facility] | [address] | [place] [address] | [phone] | + + + + + POC [...] | | | POC | performed at [facility];[address] | | LABORATORY | | | | [address];[place] | | | | | | [address] | | | | + + + + + + + + | Specimen | + + | | + + + + + + + | Performing | Address | City/State/Zipcode | Phone Number | | Organization | | | | + + + + + | [facility] | [address] | [place] [address] | [phone] | + + + + + POC [...] | | | POC | performed at [facility];[address] | | LABORATORY | | | | [address];[place] | | | | | | [address] | | | | + + + + + + + + | Specimen | + + | | + + + + + + + | Performing | Address | City/State/Zipcode | Phone Number | | Organization | | | | + + + + + | [facility] | [address] | [place] [address] | [phone] | + + + + + Basic [...] | 8.6 | 8.5 - 10.5 | [facility] | | | | | mg/dL | LABORATORY | | + + + + + + | Estimated | 39 (L)Comment: GFR <60: | >60 | [facility] | | | GFR | CHRONIC [...] | | | | | | MDRD IDIL traceable | | | | | | equation.Testing | | | | | | performed at [facility], [address] | | | | | | [facility], | | | | | | [place] [address] | | | | + + + + + + + + | Specimen | + + | Blood | + + + + + + + | Performing | Address | City/State/Zipcode | Phone Number | | Organization | | | | + + + + + | [facility] | [address] | [place] [address] | [phone] | + + + + + CBC [...] LABORATORY | | | | performed at [facility], [address] | | | | | | [facility], | | | | | | [place] [address] | | | | | |Testing performed at [facility], [address] [facility], [place] [address] | | | | | | | | | | + + +---- + + + + + | Specimen | + + | Blood | + + + + + + + | Performing | Address | City/State/Zipcode | Phone Number | | Organization | | | | + + + + + | [facility] | [address] | [place] [address] | [phone] | + + + + + POC [...] | | | POC | performed at [facility];[address] | | LABORATORY | | | | [address];[place] | | | | | | [address] | | | | + + + + + + + + | Specimen | + + | | + + + + + + + | Performing | Address | City/State/Zipcode | Phone Number | | Organization | | | | + + + + + | [facility] | [address] | [place] [address] | [phone] | + + + + + POC Glucose (11/24/2019 5:09 PM PDT) + + + + + + | Component | Value | Ref Range | Performed | Pathologist | | | | | At | Signature | + + + + + + | Glucose, | 121 (H)Comment: Testing | 65 - 99 mg/dL | [facility] | | | POC | performed at [facility];[address] | | LABORATORY | | | | [address];[place], [place] | | | | | | [address] | | | | + + + + + + + + | Specimen | + + | | + + + + + + + | Performing | Address | City/State/Zipcode | Phone Number | | Organization | | | | + + + + + | [facility] | [address] | [place] [address] | [phone] | + + + + + POC [...] | | | POC | performed at [facility];[address] | | LABORATORY | | | | [address] [facility];[place], [place] | | | | | | [address] | | | | + + + + + + + + | Specimen | + + | | + + + + + + + | Performing | Address | City/State/Zipcode | Phone Number | | Organization | | | | + + + + + | [facility] | [address] | [place] [address] | [phone] | + + + + + POC Glucose (11/24/2019 8:09 AM PDT) + + + + + + | Component | Value | Ref Range | Performed | Pathologist | | | | | At | Signature | + + + + + + | Glucose, | 162 (H)Comment: Testing | 65 - 99 mg/dL | [facility] | | | POC | performed at [facility];[address] | | LABORATORY | | | | [address];[place] | | | | | | [address] | | | | + + + + + + + + | Specimen | + + | | + + + + + + + | Performing | Address | City/State/Zipcode | Phone Number | | Organization | | | | + + + + + | [facility] | [address] | [place] [address] | [phone] | + + + + + XR [...] | | | | | performed at [facility], [address] | | | | | | [facility], | | | | | | [place] [address] | | | | + + + + + + + + | Specimen | + + | | + + + + + + + | Performing | Address | City/State/Zipcode | Phone Number | | Organization | | | | + + + + + | [facility] | [address] | [place] [address] | [phone] | + + + + + CBC [...] | | | | | | at [facility], [address] | | | | | | [address], | | | | | | [place] [address] | | | | | |Testing performed at [facility], [address] [facility], [place] [address] | | | | | | | | | | + + +---- + + + + + | Specimen | + + | Blood | + + + + + + + | Performing | Address | City/State/Zipcode | Phone Number | | Organization | | | | + + + + + | [facility] | [address] [facility] | [place] [address] | [phone] | + + + + + Vancomycin, [...] | | | | | performed at [facility] | | | | | | [facility];[place], [place] | | | | | | [address] | | | | + + + + + + + + | Specimen | + + | Blood | + + + + + + + | Performing | Address | City/State/Zipcode | Phone Number | | Organization | | | | + + + + + | [facility] | [address] | [place] [address] | [phone] | + + + + + POC Glucose (11/23/2019 8:39 PM PDT) + + + + + + | Component | Value | Ref Range | Performed | Pathologist | | | | | At | Signature | + + + + + + | Glucose, | 195 (H)Comment: Testing | 65 - 99 mg/dL | [facility] | | | POC | performed at [facility];[address] | | LABORATORY | | | | [address];[place] | | | | | | [address] | | | | + + + + + + + + | Specimen | + + | | + + + + + + + | Performing | Address | City/State/Zipcode | Phone Number | | Organization | | | | + + + + + | [facility] | [address] | [place] [address] | [phone] | + + + + + POC [...] | | | POC | performed at [facility];[address] | | LABORATORY | | | | [address];[place], [place] | | | | | | [address] | | | | + + + + + + + + | Specimen | + + | | + + + + + + + | Performing | Address | City/State/Zipcode | Phone Number | | Organization | | | | + + + + + | [facility] | [address] | [place] [address] | [phone] | + + + + + XR [...] | | | POC | performed at [facility];[address] | | LABORATORY | | | | [address];[place] | | | | | | [address] | | | | + + + + + + + + | Specimen | + + | | + + + + + + + | Performing | Address | City/State/Zipcode | Phone Number | | Organization | | | | + + + + + | [facility] | [address] | [place] [address] | [phone] | + + + + + Culture, [...] RESULT | Testing performed at | | [facility] | | | | [facility], [address] [facility] | | LABORATORY | | | | [place] | | | | | | [id number]: Testing | | | | | | performed at [facility], [address] | | | | | | [facility] [address], | | | | | | [place] [address] | | | | + + + + + + + + | Specimen | + + | Body Fluid - Pus | | specimen (specimen) | + + + + + + + | Performing | Address | City/State/Zipcode | Phone Number | | Organization | | | | + + + + + | [facility] | [address] | [place] [address] | [phone] | + + + + + Medical [...] | | LABORATORY:Technical preparation was performed by [facility], | | | [address] [place] [address] (Livestock Trucker: | | | Sebas Tolliver D.O.; CLIA#: [id number]).Professional interpretation | | | [facility] | | | [place] [address] (Livestock Trucker: Leif | | | Hugh Layne; CLIA#: [id number]).6 Diagnostician: Hector Bryant | | | CT [...] | | |Technical preparation was performed by [facility], [address] [place] [address] (Livestock Trucker: Sebas Tolliver D.O.; CLIA#: [id number]). | | |[facility], [address] (Livestock Trucker: Leif Layne M.D.; CLIA#: [id number]).6 | | | | | |Diagnostician: Hector Bryant CT (ASCP) | | |Cut Off Saw T[employer] | | |Diagnostician: Leif Layne MD | [...] | | | clinician's orders. A 12 Wallisian locking pigtail catheter is placed. | | [...] the | | clinician's orders. A 12 Wallisian locking pigtail catheter is placed. | | [...] | | | | | performed at [facility] | | | | | | [address];[place], [place] | | | | | | [address] | | | | + + + + + + + + | Specimen | + + | Blood | + + + + + + + | Performing | Address | City/State/Zipcode | Phone Number | | Organization | | | | + + + + + | [facility] | [address] | [place] [address] | [phone] | + + + + + POC [...] | | | POC | performed at [facility];[address] | | LABORATORY | | | | [address];[place], [place] | | | | | | [address] | | | | + + + + + + + + | Specimen | + + | | + + + + + + + | Performing | Address | City/State/Zipcode | Phone Number | | Organization | | | | + + + + + | [facility] | [address] | [place] [address] | [phone] | + + + + + POC Glucose (11/22/2019 8:58 PM PDT) + + + + + + | Component | Value | Ref Range | Performed | Pathologist | | | | | At | Signature | + + + + + + | Glucose, | 174 (H)Comment: Testing | 65 - 99 mg/dL | [facility] | | | POC | performed at [facility];[address] | | LABORATORY | | | | [address];[place] | | | | | | [address] | | | | + + + + + + + + | Specimen | + + | | + + + + + + + | Performing | Address | City/State/Zipcode | Phone Number | | Organization | | | | + + + + + | [facility] | [address] | [place] [address] | [phone] | + + + + + POC Glucose (11/22/2019 4:13 PM PDT) + + + + + + | Component | Value | Ref Range | Performed | Pathologist | | | | | At | Signature | + + + + + + | Glucose, | 94Comment: Testing | 65 - 99 mg/dL | [facility] | | | POC | performed at [facility];[address] | | LABORATORY | | | | [address];[place], [place] | | | | | | [address] | | | | + + + + + + + + | Specimen | + + | | + + + + + + + | Performing | Address | City/State/Zipcode | Phone Number | | Organization | | | | + + + + + | [facility] | [address] | [place] [place] [address] | [phone] | + + + + + POC [...] | | | POC | performed at [facility];888 | | LABORATORY | | | | [address];[place] | | | | | | [address] | | | | + + + + + + + + | Specimen | + + | | + + + + + + + | Performing | Address | City/State/Zipcode | Phone Number | | Organization | | | | + + + + + | [facility] | [address] | [place] [address] | [phone] | + + + + + POC Glucose (11/22/2019 9:28 AM PDT) + + + + + + | Component | Value | Ref Range | Performed | Pathologist | | | | | At | Signature | + + + + + + | Glucose, | 92Comment: Testing | 65 - 99 mg/dL | DON | | | POC | performed at [facility];[address] | | LABORATORY | | | | [address];[place] | | | | | | [address] | | | | + + + + + + + + | Specimen | + + | | + + + + + + + | Performing | Address | City/State/Zipcode | Phone Number | | Organization | | | | + + + + + | [facility] | [address] | [place] [address] | [phone] | + + + + + Magnesium (11/22/2019 5:18 AM PDT) + + + + + + | Component | Value | Ref Range | Performed | Pathologist | | | | | At | Signature | + + + + + + | Magnesium | 1.3 (L)Comment: Testing | 1.7 - 2.4 mg/dL | DON | | | | performed at [facility];888 | | LABORATORY | | | | [address];[place] | | | | | | [address] | | | | + + + + + + + + | Specimen | + + | Blood | + + + + + + + | Performing | Address | City/State/Zipcode | Phone Number | | Organization | | | | + + + + + | [facility] | [address] | [place] [address] | [phone] | + + + + + Protime [...] | | | | | performed at [facility];88 | | | | | | Caroline [address];[place], [place] | | | | | | [address] | | | | + + + + + + + + | Specimen | + + | Blood | + + + + + + + | Performing | Address | City/State/Zipcode | Phone Number | | Organization | | | | + + + + + | [facility] | [address] | [place] [address] | [phone] | + + + + + CBC [...] LABORATORY | | | | performed at [facility] | | | | | | Caroline [address];[place], [place] | | | | | | [address] | | | | | | | | | | + + + + + + + + | Specimen | + + | Blood | + + + + + + + | Performing | Address | City/State/Zipcode | Phone Number | | Organization | | | | + + + + + | [facility] | [address] | [place] [address] | [phone] | + + + + + Comprehensive [...] 52 (L)Comment: GFR <60: | >60 | [facility] | | | GFR | CHRONIC [...] | | | | | | MDRD IDIL traceable | | | | | | equation.Testing | | | | | | performed at [facility] | | | | | | [facility];[place], [place] | | | | | | [address] | | | | + + + + + + + + | Specimen | + + | Blood | + + + + + + + | Performing | Address | City/State/Zipcode | Phone Number | | Organization | | | | + + + + + | [facility] | [address] | [place] [address] | [phone] | + + + + + Basic [...] | | | | | performed at [facility];888 | | | | | | [facility];[place], [place] | | | | | | [address] | | | | + + + + + + + + | Specimen | + + | Blood | + + + + + + + | Performing | Address | City/State/Zipcode | Phone Number | | Organization | | | | + + + + + | [facility] | [address] [facility] | [place] [address] | [phone] | + + + + + documented [...] | | | | AC, NPO, Daytime 7928-8795 Use | | | | | | | NIGHT DOSE for doses scheduled: | | | | | | | HS, Nighttime 0785-6816 If | | | | | | [...] | | | | Starting [facility] 11/23/19 at 1027 | | AM [...] | | | | | [facility] 11/23/19 at 1115, Please | | [...]
--- OUTSIDE RECORDS SUMMARY | ~2020-02-01 | XMS | Encounter Summary ---
Demographics + + + | Address | [address] | | | [place] [address] | + + + | Home Phone [...] Team Providers + +------+ + | Care Dental Tech Name | Role | Phone | + +------+ + | Roberth Gaspar MD | PCP | | + +------+ + Encounter Details +--------+ + + + + | Date | Type | Department | Care Team | Description | +--------+ + + + + | 09/12/ | Orders Only | [facility] | Cesar Hart MD | Essential | | 2020 | | NEPHROLOGY [place] | [address] | hypertension, benign | | | | [address] | [address] [place], [place] | (Primary Dx); CKD | | | | [address] | [address] | (chronic kidney | | | | [place], [place] | | disease), stage III | | | | [address] | | (HCC) | | | | [phone] | | | +--------+ + + + [...]
--- OUTSIDE RECORDS SUMMARY | ~2020-02-01 | XMS | Encounter Summary ---
Demographics + + + | Address | [address] | | | [place] [address] | + + + | Home Phone | | + + + | Preferred Language | Unknown | + + + | Marital Status | Legally | + + + | Mandaen Affiliation | Unknown | + + + | Race | Unknown | + + + | Ethnic Group | Unknown | + + + Author + + + | Author | [facility] | | | and [place] | + + + | Organization | [facility] | | | [...] Providers + +------+ + | Care Manager Provider Relations Name | Role | Phone | + +------+ + | Roberth Gaspar MD | PCP | | + +------+ + Reason for Visit + +--------+ + | Reason | Onset | Comments | | | Date | | + +--------+ + | Medication Refill | 03/03/ | | | | 2016 | | + +--------+ + Encounter Details +--------+--------+ + + + | Date | Type | Department | Care Team | Description | +--------+--------+ + + + | 03/03/ | Refill | [facility] | Oc Mooney, | Medication Refill | | 2016 | | [address]SIATRY [address] | MD [address] | | | | | [address] | [place] | | | | | [place] | [address] | | | | | [address] | | | | | | [phone] | | | +--------+--------+ + + + [...] this refill. elephone Encounter - Donna Jara, Land Management Supervisor - 03/03/2017 5:05 PM PDTCalled to speak to Petra Dangelo regarding medication refill request for medication gabapentin. Is Petra Dangelo currently taking 1 capsule by mouth three times daily? Left a voicemail message to call our office back. Electronically si gned by Donna Jara Land Management Supervisor at 03/03/2017 5:07 PM PDTdocumented in this e ncounter Plan of Treatment Not on filedocumented as of this encounter Visit Diagnoses Not on filedocumented in this encounter"
--- OUTSIDE RECORDS SUMMARY | ~2020-02-01 | XMS | Encounter Summary ---
Demographics + + + | Address | [address] | | | [place] [address] | + + + | Home Phone | | + + + | Preferred Language | Unknown | + + + | Marital Status | Legally | + + + | Gnosticist Affiliation | Unknown | + + + [...] Team Providers + +------+ + | Care Hand Kiss Setter Name | Role | Phone | + +------+ + | No, Unknownpcp | PCP | | + +------+ + Encounter Details +--------+ + + + + | Date | Type | Department | Care Team | Description | +--------+ + + + + | 01/07/ | Hospital | [facility] | Mookie Bustamante, | | | 2013 - | Encounter | [facility] | [address] | | | | | [address] | [place] | | | 01/11/ | | [place] [address] | [address] | | | 2012 | | [phone] | | | +--------+ + + + [...] Bustamante MD - 01/11/2013 9:47 [place] [address] Patient Name: PHOENIX DANGELO Provider: Mookie Bustamante MD Unit #: [id number] Location: [address] [place], [place] [address]t #: [id number] : 1965 ADMISSION DATE: 01/07/2013 DISCHARGE DATE: [...] Dr. Harvey. She saw Dr. Castro bose, memorial designer, who did beside debridement. He recommended that [...] was to have her go home with [facility]. However, the patient says her father will not allow that. Thus, she will be going to the [facility]. I did speak with Dr. Noe Gaspar on the phone on 01/10/2013. She needs to fol low up with him but she also should have the memorial designer to see her and I would say within s ix days. Ideally, you could have the memorial designer come to the jail. Check with Dr. Noe Gaspar which memorial designer he wants her to see. She has seen a memorial designer in the [facility] t. DISPOSITION: The patient to be discharged to the jail in improved condition. DIET: Will be diabetic, low fat, low cholesterol. She should work with physical therapy and if you have a wound care nurse as well. She can ambulate but I would have her minimize pressure on her right forefoot where she has the [facility] er. CODE STATUS: FULL CODE. MEDICATIONS 1. [...] Hypoglycemia protocol. We have one here but jail might have one but we include d ours. Glucoscans before meals. Again, she needs close followup with Dr. Noe Gaspar as well as contact Dr. Noe Jara [facility]'s office for which memorial designer to see and ideally the memorial designer should start seeing he r at the jail and have your wound care team see her as well in the jail. Time of discharge more than 30 minutes. DICTATED BY: Mookie Bustamante MD Internal Medicine JOB #: [id number] EXT JOB #:[id number] cc: Dr Noe Gaspar in [facility] <<Signature on File>> Mookie Bustamante MD0 01/13/13 0536 <Electronically signed by Mookie Bustamante MD> documented in this encounter H&P Notes Provider Not, In System - 01/07/2013 4:10 [place] [address] Patient Name: CHINOPHOENIX STANTON Provider: Lam Harvey MD Unit #: [id number] Location: [address] [place] [address] #: [id number] : 1965 DATE: 01/07/2013 CHIEF COMPLAINT: Swollen foot. HISTORY OF PRESENT ILLNESS: Ms. Dangelo is a 47-year-old white female followed by Dr. Rick darnell in [place] who has diabetes mellitus type 2 and [...] she went to the emergency department in [facility] e she was found to have a significant cellulitis, was given vancomycin and was transferred to [place] primarily because of some hyperkalemia and some [...] off. LABORATORY STUDIES: Laboratory studies done in [place] show a blood sugar 152. BUN 34, [...] on culture. Blood cultures were obtained in [place] and I will cu lture the open lesion. I suspect her potassium will normalize with the Kayexalate and the w ithdrawal of triamterene and nonsteroidals. I expect the patient will do well. DICTATED BY: Lam Harvey MD JOB #: [id number] EXT JOB #:[id number] cc: Noe Gaspar MD <<Signature on File>> [...] Performed At | + + + | [facility] | TUALATIN | | Department [address] [place] [address] | [facility] | | [ rep ct street1[address]] [ rep [facility] | | [facility]] Signed | - IMAGING | | | | | Patient Name: PHOENIX DANGELO Physician: | | | RASC.01 : 1965 Age: 47 Sex: F Unit #: [id number] | | | Exam Date: 01/10/13 Location: [address] [place] [address] | | | Report #: [id number] Page: | | | %(RAD)RES..mtdd.print.filter("pg") of %(RAD) | | | RES..mtdd.print.filter("tpg") | | | | | | Accession Number: [id number]; [id number]; | | | [id number], [id number], [id number], [id number] PICC | | | LINE PLACEMENT CLINICAL [...] Transcribed | | | Date/Time: 01/10/2013 17:07 Child And Family Services Worker: | | | <<Signature on File>> | | | Campbell | | | Eloise Ocasio MD01/11/13 1032 <Electronically signed by Campbell Navas | | | Amarjit KAPLAN> Campbell Ocasio MD 01/11/13 08 | | | Child And Family Services Worker: Chantel Lwwqgxpfyxxqh68/17/13829 | | | | | + + + + + + + + | Performing | Address | City/State/Zipcode | Phone Number | | Organization | | | | + + + + + | [facility] | [address] | [place] | [phone] | | [facility] | | [address] | | | - IMAGING | | | | + + + + + XR Chest PA or AP (01/11/2013 8:30 AM PDT) + + | Specimen | + + | | + + + + + | Narrative | Performed At | + + + | [facility] | TUALATIN | | Department [address] [facility] | [facility] | | [ rep ct [address]] [ rep [facility] | | st zip] Signed | - IMAGING | | | | | Patient Name: PHOENIX DANGELO Physician: | | | SANDI.01 : 1965 Age: 47 Sex: F Unit #: [id number] | | | Exam Date: 01/10/13 Location: [address] [place] [address] | | | Report #: [id number] Page: | | | %(RAD)RES..mtdd.print.filter("pg") of %(RAD) | | | RES..mtdd.print.filter("tpg") | | | | | | Accession Number: [id number]; [id number]; | | | [id number], [id number], [id number], [id number] PICC | | | LINE PLACEMENT CLINICAL [...] Transcribed | | | Date/Time: 01/10/2013 17:07 Child And Family Services Worker: | | | <<Signature on File>> | | | Campbell | | | Eloise Ocasio MD01/11/13 1032 <Electronically signed by Campbell Navas | | | Amarjit KAPLAN> Campbell Ocasio MD 01/11/13 08 | | | Child And Family Services Worker: [employer] Jxwvcuhrrokcm10/17/13 0830 | | | | | + + + + + + + + | Performing | Address | City/State/Zipcode | Phone Number | | Organization | | | | + + + + + | [facility] | [address] | [place] | [phone] | | [facility] | | [address] | | | - IMAGING | | | | + + + + + XR Chest PA or AP (01/11/2013 8:30 AM PDT) + + | Specimen | + + | | + + + + + | Narrative | Performed At | + + + | [facility] | TUALATIN | | Department [address] [place] [address] | [facility] | | [ rep ct street1+2] [ rep [facility] | | st zip] Signed | - IMAGING | | | | | Patient Name: PHOENIX DANGELO Physician: | | | RASC.01 : 1965 Age: 47 Sex: F Unit #: [id number] | | | Exam Date: 01/10/13 Location: [address] [place] [address] | | | Report #: [id number] Page: | | | %(RAD)RES..mtdd.print.filter("pg") of %(RAD) | | | RES..mtdd.print.filter("tpg") | | | | | | Accession Number: [id number]; [id number]; | | | [id number], [id number], [id number], [id number] PICC | | | LINE PLACEMENT CLINICAL [...] Transcribed | | | Date/Time: 01/10/2013 17:07 Child And Family Services Worker: | | | <<Signature on File>> | | | Campbell | | | Eloise Ocasio MD01/11/13 1032 <Electronically signed by Campbell Navas | | | Amarjit KAPLAN> Campbell Ocasio MD 01/11/[address] | | | Child And Family Services Worker: Chantel Rqskohbrhhekm08/17/13829 | | | | | + + + + + + + + | Performing | Address | City/State/Zipcode | Phone Number | | Organization | | | | + + + + + | [facility] | [address] | [place] | [phone] | | [facility] | | [address] | | | - IMAGING | | | | + + + + + XR Chest PA or AP (01/10/2013 3:18 PM PDT) + + | Specimen | + + | | + + + + + | Narrative | Performed At | + + + | [facility] | TUALATIN | | Department [address] [facility] | [facility] | | [ rep ct street1+2] [ rep [facility] | | st zip] Signed | - IMAGING | | | | | Patient Name: PHOENIX DANGELO Physician: | | | YE. : 1965 Age: 47 Sex: F Unit #: [id number] | | | Exam Date: 01/10/13 Location: [address] [place] [address] | | | Report #: [id number] Page: | | | %(RAD)RES..mtdd.print.filter("pg") of %(RAD) | | | RES..mtdd.print.filter("tpg") | | | | | | Accession Number: [id number] | | | [id number], [id number], [id number], [id number] PICC LINE PLACEMENT | | | CLINICAL [...] Transcribed Date/Time: 01/10/2013 17:07 | | | Child And Family Services Worker: <<Signature on File>> | | | | | | Campbell Ocasio MD01/10/13 2976 <Electronically signed by Campbell Navas | | | Amarjit KAPLAN> Campbell Ocasio MD 01/10/13 0509 | | | Child And Family Services Worker: Chantel Qngdaxcejnlzv96/16/13 4840 | | | | | + + + + + + + + | Performing | Address | City/State/Zipcode | Phone Number | | Organization | | | | + + + + + | [facility] | [address] | [place], [place] | [phone] | | [facility] | | [address] | | | - IMAGING | | [...] | Cells | | M/uL | [facility] | | | | | | MEDICAL [...] + | [facility] | [address] | [place], [place] | [phone] | | [facility] | | [address] | | | - LABORATORY | | | | + + + + + | [facility] | [address] | [place], [place] | | | [facility] | | [address], [facility] | | | - LABORATORY | [...] | 0.86 | 0.60 - 1.30 | [facility] | | | | | mg/dL | [...] + | [facility] | [address] | [place], [place] | [phone] | | [facility] | | [address] | | | - LABORATORY | | | | + + + + + | [facility] | [address] | [place], [place] | | | [facility] | | [address], [facility] | | | - LABORATORY | [...] + | [facility] | [address] | [place], [place] | [phone] | | [facility] | | [address] | | | - LABORATORY | | | | + + + + + | [facility] | [address] | [place] | | | [facility] | | [address] [place] [address] | | | - LABORATORY | | [...] 14 | 7 - 18 mg/dL | [facility] | | | | | | [facility] | | | | | | MEDICAL | | | | | | CENTER - | | | | | | LABORATORY | | + + + + + + | Creatinine | 1.06 | 0.60 - 1.30 | [facility] | | | | | mg/dL | [facility] | | | | | | MEDICAL | | | | | | CENTER - | | | | | | LABORATORY | | + + + + + + | Estimated | 56 (L)Comment: For | >60 mL/min/A | [facility] | | | GFR | -Americans, | [...] + | [facility] | [address] | [place] | [phone] | | [facility] | | [address] | | | - LABORATORY | | | | + + + + + | [facility] | [address] | [place], [place] | | | [facility] | | [id number] | | | - LABORATORY | | [...] + | [facility] | [address] | [place], [place] | [phone] | | [facility] | | [address] | | | - LABORATORY | | | | + + + + + | [facility] | [address] | [place] | | | [facility] | | [address] [place] [address] | | | - LABORATORY | | [...] [address] | [place] | [phone] | | [facility] | | [address] | | | - LABORATORY | | | | + + + + + | [facility] | [address] | [place] | | | [facility] | | [address], [facility] | | | - LABORATORY | [...] + | [facility] | [address] | [place], [place] | [phone] | | [facility] | | [address] | | | - LABORATORY | | | | + + + + + | [facility] | [address] | [place], [place] | | | [facility] | | [address] [place] [address] | | | - LABORATORY | | [...] + | [facility] | [address] | [place], [place] | [phone] | | [facility] | | [address] | | | - LABORATORY | | | | + + + + + | [facility] | [address] | [place], [place] | | | [facility] | | [id number] | | | - LABORATORY | | [...] [address] | [place] | [phone] | | [facility] | | [address] | | | - LABORATORY | | | | + + + + + | [facility] | [address] | [place] | | | [facility] | | [id number] | | | - LABORATORY | | [...] + | [facility] | [address] | [place], [place] | [phone] | | [facility] | | [address] | | | - LABORATORY | | | | + + + + + | [facility] | [address] | [place], [place] | | | [facility] | | [id number] [place] [address] | | | - LABORATORY | | [...] | | | | | | Standards [place] | | | | | | Rifampin [...] | | | | | | [employer] [place] | | | | | | Rifampin [...] + | [facility] | [address] | [place], [place] | [phone] | | [facility] | | [address] | | | - LABORATORY | | | | + + + + + | [facility] | [address] | [place], [place] | | | [facility] | | [address] [place] [address] | | | - LABORATORY | | | | + + + + + documented in this encounter Visit Diagnoses Not on filedocumented in this encounter
--- OUTSIDE RECORDS SUMMARY | ~2020-02-01 | XMS | Encounter Summary ---
Demographics + + + | Address | [address] | | | [place] [address] | + + + | Home Phone [...] Team Providers + +------+ + | Care Sap Pp Consultant Name | Role | Phone | [...] + + | 01/05/ | Office | [facility] | Oc Mooney, | Peripheral | | 2017 | Visit | [address]SI[address]RY [address] | [address] | polyneuropathy | | | | [address] | [place] | (Primary Dx); | | | | [place] | [address] | Neuropathic pain; | | | | [address] | | Vitamin B12 | | | | [phone] | | deficiency; Angular | | | [...] encounter Patient Instructions Patient Instructions Donna Jara, Knitting Machine Operator - 01/05/2017 4:00 PM PDTBegin the consumption [...] hands, unchanged compared to 10/06/2016. 4/5 hand operations superintendent bilaterally. Remainder of strength normal in major [...]
--- OUTSIDE RECORDS SUMMARY | ~2020-02-01 | XMS | Encounter Summary ---
Demographics + + + | Address | [address] | | | [place] [address] | + + + | Home Phone | | + + + | Preferred Language | Unknown | + + + | Marital Status | Legally | + + + | Yazidi Affiliation | Unknown | + + + | Race | Unknown | + + + | Ethnic Group | Unknown | + + + Author + + + | Author | [facility] | | | and [place] | + + + | Organization | [facility] | | | [...] Team Providers + +------+ + | Care Hazardous Substances Scientist Name | Role | Phone | [...] + + | 05/18/ | Telephone | [facility] | Oc Mooney, | Medication Refill | | 2017 | | [address] | MD [address] | | | | | [address] | [place] | | | | | [place] | [address] | | | | | [address] | | | | | | [phone] | | | +--------+ + + + [...] this medication. elephone Encounter - Donna Jara, Medical Office Scheduler - 05/18/2017 10:26 AM PSTCalled to speak [...]
--- OUTSIDE RECORDS SUMMARY | ~2020-02-01 | XMS | Encounter Summary ---
Demographics + + + | Address | [address] | | | [place] [address] | + + + | Home Phone | | + + + | Preferred Language | Unknown | + + + | Marital Status | Legally | + + + | Yarsani Affiliation | Unknown | + + + [...] Team Providers + +------+ + | Care Winding Lathe Operator Name | Role | Phone | [...] + | 12/25/ | Telephone | [facility] | Carey Martínez, | Other (F/U Appt ) | | 2020 | | INFECTIOUS DISEASE | Gas Desulfurizer | | | | | [address] [facility] | | | | | | [place], [place] | | | | | | [address] | | | | | | [phone] | | | +--------+ + + + [...] - 01/04/2020 9:39 AM PDT01/04/2020: Shalini from [facility] stated she will look into the [...] at office. Callback number was provided in message,[phone] option 5. I will wait for callback. Vijay ne Encounter - Carey Martínez Gas Desulfurizer - 12/26/2019 10:04 AM PDT12/26/2019: I attempted to get a hold of patient. I left message requesting for patient to return my ca ll at office. Callback number was provided in message,[phone] option 5. I will wait for callback. Isabelle ahumada in this encounter Plan of Treatment Not on filedocumented as of this encounter Visit Diagnoses Not on filedocumented in this encounter"
--- OUTSIDE RECORDS SUMMARY | ~2020-02-01 | XMS | Encounter Summary ---
Demographics + + + | Address | [address] | | | [place] [address] | + + + | Home Phone [...] Team Providers + +------+ + | Care Coagulation Operator Name | Role | Phone | [...] + + | 12/25/ | Telephone | [facility] | Carey Martínez, | Other (F/U Appt ) | | 2020 | | INFECTIOUS DISEASE | Day Care Home Mother | | | | | [address] | | | | | | [place], [place] | | | | | | [address] | | | | | | [phone] | | | +--------+ + + + [...] - 01/04/2020 9:39 AM PDT01/04/2020: Shalini from [facility] stated she will look into the [...] at office. Callback number was provided in message,[phone] option 5. I will wait for callback. Vijay ne Encounter - Carey Martínez Day Care Home Mother - 12/26/2019 10:04 AM PDT12/26/2019: I attempted to get a hold of patient. I left message requesting for patient to return my ca ll at office. Callback number was provided in message,[phone] option 5. I will wait for callback. Isabelle ahumada in this encounter Plan of Treatment Not on filedocumented as of this encounter Visit Diagnoses Not on filedocumented in this encounter"
--- OUTSIDE RECORDS SUMMARY | ~2020-02-01 | XMS | Encounter Summary ---
Demographics + + + | Address | [address] | | | [place] [address] | + + + | Home Phone [...] Team Providers + +------+ + | Care Corporate Logistics Manager Name | Role | Phone | [...] + + | 11/11/ | Telephone | [facility] [place] | Oc Mooney, | Lab Results | | 2017 | | [address]SIATRY [address] | MD [address] | | | | | [address] | [place] | | | | | [place] | [address] | | | | | [address] | | | | | | [phone] | | | +--------+ + + + [...] Miscellaneous Notes Telephone Encounter - Donna Jara, Roller Print Tender - 11/11/2016 2:01 [address] [...]
--- OUTSIDE RECORDS SUMMARY | ~2020-02-01 | XMS | Clinical Summary ---
Demographics + + + | Address | [address] | | | [place] [address] | + + + | Home Phone | | + + + | Preferred Language | Unknown | + + + | Marital Status | Legally | + + + | Hinduism Affiliation | Unknown | + + + [...] Team Providers + +------+ + | Care Genetics Physician Name | Role | Phone | [...] ) | | 2020 | | | Brewer Helper | | +--------+ + + + + [...] 2019 | Visit | | | space ([facility]) (Primary | | | | [...] | | | | Romario Dawson, | ([facility]); Empyema of | | | | | MD | pleural space ([facility]); | | | | | [...] | | | | | aureus (MRSA) ([facility]); | | | | | | 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, without | | | | | | long-term current | | | | | | use of insulin | | | | | | ([facility]); Pulmonary | | | | | | nodules; | | | | | | Thrombocytosis | | | | | | ([facility]); Loculated | | | | | | pleural effusion; | | | | | | EVA (acute kidney | | | | | | injury) ([facility]); | | | | | | Sepsis, due to | | | | | | unspecified | | | | | | organism, | | | | | | unspecified whether | | | | | | acute organ | | | | | | dysfunction present | | | | | | ([facility]); Chronic | | | | | | obstructive | | | | | | pulmonary disease, | | | | | | unspecified COPD | | | | | | type ([facility]); Weakness | | | | [...] | | POC | performed at [facility];[address] | | LABORATORY | | | | [address];[place], [place] | | | | | | [address] | | | | + + + + + + + + | Specimen | + + | | + + + + + + + | Performing | Address | City/State/Zipcode | Phone Number | | Organization | | | | + + + + + | [facility] | [address] | [place] [address] | [phone] | + + + + + XR [...] | | | | performed at [facility];[address] | | | | | | [address];[place] | | | | | | [address] | | | | | | | | | | + + + + + + + + | Specimen | + + | Blood | + + + + + + + | Performing | Address | City/State/Zipcode | Phone Number | | Organization | | | | + + + + + | [facility] | [address] | [place] [address] | [phone] | + + + + + XR [...] | | Serum | performed at [facility];[address] | mmol/L | LABORATORY | | | | [address];[place], [place] | | | | | | [address] | | | | + + + + + + + + | Specimen | + + | Blood | + + + + + + + | Performing | Address | City/State/Zipcode | Phone Number | | Organization | | | | + + + + + | [facility] | [address] | [place] [address] | [phone] | + + + + + Basic [...] | | | | | performed at [facility], [address] | | | | | | [facility], | | | | | | [place] [address] | | | | + + + + + + + + | Specimen | + + | Blood | + + + + + + + | Performing | Address | City/State/Zipcode | Phone Number | | Organization | | | | + + + + + | [facility] | [address] | [place] [address] | [phone] | + + + + + DIAGNOSTIC [...] | | | | performed at [facility];[address] | | | | | [address];[place], [place] | | | | | | [address] | | | | + + + + + + + + | Specimen | + + | Blood | + + + + + + + | Performing | Address | City/State/Zipcode | Phone Number | | Organization | | | | + + + + + | [facility] | [address] | [place] [address] | [phone] | + + + + + Culture, [...] [place] | | | | | | [address]: Testing | | | | | | performed at [facility], [address] | | | | | | [address], | | | | | | [place] [address] | | | | + + + + + + + + | Specimen | + + | Body Fluid - Pus | | specimen (specimen) | + + + + + + + | Performing | Address | City/State/Zipcode | Phone Number | | Organization | | | | + + + + + | [facility] | [address] | [place] [address] | [phone] | + + + + + Medical Cytology (11/23/2019 10:55 AM PDT) + + | Specimen | + + | Body Fluid - Pus | | specimen (specimen) | + + + + + | Narrative | Performed At | + + + | ORDERING | [facility] | | PHYSICIAN:Calderon Leggett MD PATIENT [...] | | LABORATORY:Technical preparation was performed by [facility], | | | [address] [place] [address] (Bone Process Operator: | | | Sebas Tolliver D.O.; CLIA#: [id number]).Professional interpretation | | | was performed by [facility], [facility], [address] | | | [place] [address] (Bone Process Operator: Leif | | | Hugh Layne; CLIA#: [id number]).6 Diagnostician: Hector Bryant | | | CT [facility])CytotechnologistDiagnostician: Leif Layne | | | MDPathologistElectronically Signed 11/24/2019 | | | | | |DESCRIPTION: | | |The preparations contain mesothelial cells, rare inflammatory cells, and acellular proteina ceous material. Atypical cytologic findings are not encountered. | | | | | |SPECIMEN ADEQUACY: | | |Satisfactory for Evaluation | | | | | |PERFORMING LABORATORY: | | |Technical preparation was performed by [facility], [address] [place] [address] (Bone Process Operator: Sebas Tolliver D.O.; CLIA#: [id number]). | | |Professional interpretation was performed by [facility], [facility], [address] [place] [address] (Bone Process Operator: Leif Layne M.D.; CLIA#: [id number]).6 | | | | | |Diagnostician: Hector Bryant CT ([facility]) | | |Bill Of Lading Clerk | | |Diagnostician: Leif Layne MD | [...] | | | clinician's orders. A 12 Urdu locking pigtail catheter is placed. | | [...] the | | clinician's orders. A 12 Urdu locking pigtail catheter is placed. | | [...] | INR | 1.2Comment: REFERENCE | | [facility] | | | | RANGE:0.9 - 1.2 [...] | | | | performed at [facility];[address] | | | | | | [address];[place] | | | | | | [address] | | | | + + + + + + + + | Specimen | + + | Blood | + + + + + + + | Performing | Address | City/State/Zipcode | Phone Number | | Organization | | | | + + + + + | [facility] | [address] | [place] [address] | [phone] | + + + + + Magnesium (11/22/2019 5:18 AM PDT) + + + + + + | Component | Value | Ref Range | Performed | Pathologist | | | | | At | Signature | + + + + + + | Magnesium | 1.3 (L)Comment: Testing | 1.7 - 2.4 mg/dL | [facility] | | | | performed at [facility];[address] | | LABORATORY | | | | [address];[place] | | | | | | [address] | | | | + + + + + + + + | Specimen | + + | Blood | + + + + + + + | Performing | Address | City/State/Zipcode | Phone Number | | Organization | | | | + + + + + | [facility] | [address] | [place] [address] | [phone] | + + + + + from [...] | [employer] | [employer] | [id number] | 06/28/19 | [phone] | | Medica | | MEDICAID HMO | HEALTH | | 13-Pre | 1 | | id | | | MDCD | | sent | | | | | | [place] | | | | | | + +--------+ +--------+ +---------+--------+ | [employer] | [employer] | [id number] | | [phone] | | Medica | | MEDICAID HMO [...] [place] | | | 2 (Home) | [address] | + +--------+ +--------+ + + | Phoenix Dangelo M | Person | Self | [birth year] | [address] | | | al/Fam | | 1964 | [address] | [place], [place] | | | charlie | | | 2 (Home) | [address] | + +--------+ +--------+ + + Advance Directives + + + + + | Type | Date Recorded | Patient | Explanation | | | | Director Corporate | | + + + + + | Power of | | | | | Finish Saw Operator | | | | + + [...]
--- OUTSIDE RECORDS SUMMARY | ~2020-02-01 | XMS | Encounter Summary ---
Demographics + + + | Address | [address] | | | [place] [address] | + + + | Home Phone | | + + + | Preferred Language | Unknown | + + + | Marital Status | Legally | + + + | Islam Affiliation | Unknown | + + + | Race | Unknown | + + + | Ethnic Group | Unknown | + + + Author + + + | Author | [facility] | | | and [place] | + + + | Organization | [facility] | | | [...] Team Providers + +------+ + | Care Snowboard Instructor Name | Role | Phone | [...] | hand | [address] | | | | n | numbness | [address] | [place], | | | | | Hand | [place], | [place] [address] | | | | | weakness | [place] [address] | Phone: | | | | | History of | Phone: | [phone] | | | | | diabetes | [phone] | Fax: | | | | | mellitus | Fax: | [phone] | | | | | Procedures | [phone] | | | | | | DOS [...] | Physical | Diagnoses | Hubert, | cO Mooney | | | | Medicine and | Other | Roberth | Idris Santos MD [address] | | | | Rehabilitatio | 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 Santos [address] | [address] | | | | 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 | [address] | [place], | | | | | degeneration | [address] | [place] [address] | | | | | , lumbar | [place], | Phone: | | | | | region | [place] | [phone] | | | | | Neuropathy | [address] | Fax: | | | | | | Phone: | [phone] | | | | | | [phone] | | | | | | | Fax: | | | | | | | [phone] | | +--------+--------+ + + + + Encounter Details +--------+---------+ + + + | Date | Type | Department | Care Team | Description | +--------+---------+ + + + | 05/04/ | Office | [facility] | Oc Mooney, | Bilateral hand | | 2015 | Visit | [address]SIATRY [address] | MD [address] | numbness (Primary | | | | [address] | [place] | Dx); Hand weakness; | | | | [place] | [address] | History of diabetes | | | | [address] | | mellitus; Brisk deep | | | | [phone] | | tendon reflexes | +--------+---------+ + [...] finger abduction bilaterally. There is 4/5 hand nailer hand bilaterally Reflexes: 3+ brisk and symmetric over [...]
--- OUTSIDE RECORDS SUMMARY | ~2020-02-01 | XMS | Encounter Summary ---
Demographics + + + | Address | [address] | | | [place] [address] | + + + | Home Phone [...] Providers + +------+ + | Care Machine Helper Name | Role | Phone | + +------+ + | Roberth Gaspar MD | PCP | | + +------+ + Encounter Details +--------+ + + + + | Date | Type | Department | Care Team | Description | +--------+ + + + + | 11/04/ | Orders Only | [facility] | Conversion | | | 2017 | | NEPHROLOGY [place] | Transaction, | | | | | [address] | Provider Unknown | | | | | [address] [place], [place] | | | | | | [address] | (Fax) | | | | | [phone] | | | +--------+ + + + [...]
--- OUTSIDE RECORDS SUMMARY | ~2020-02-01 | XMS | Encounter Summary ---
Demographics + + + | Address | [address] | | | [place] [address] | + + + | Home Phone [...] Team Providers + +------+ + | Care Gridcap Machine Operator Name | Role | Phone [...] | hand | [address] | | | | n | numbness | [address] | [place], | | | | | Hand | [place], | [place] [address] | | | | | weakness | [place] [address] | Phone: | | | | | History of | Phone: | [phone] | | | | | diabetes | [phone] | Fax: | | | | | mellitus | Fax: | [phone] | | | | | Procedures | [phone] | | | | | | DOS [...] 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 Santos [address] | [address] | | | | n | al disc | [address] | [place], | | | | | degeneration | [address] | [place] [address] | | | | | , lumbar | [place], | Phone: | | | | | region | [place] | [phone] | | | | | Neuropathy | [address] | Fax: | | | | | | Phone: | [phone] | | | | | | [phone] | | | | | | | Fax: | | | | | | | [phone] | | +--------+--------+ + + + + Encounter Details +--------+---------+ + + + | Date | Type | Department | Care Team | Description | +--------+---------+ + + + | 05/04/ | Office | [facility] | Oc Mooney, | Bilateral hand | | 2015 | Visit | [address]YSIATRY [address] | MD [address] | numbness (Primary | | | | [address] | [place] | Dx); Hand weakness; | | | | [place] | [address] | History of diabetes | | | | [address] | | mellitus; Brisk deep | | | | [phone] | | tendon reflexes | +--------+---------+ + [...] chief complain of bilateral hand numbness. HPI ePtra Dangelo reports that she started having bilateral [...] finger abduction bilaterally. There is 4/5 hand automation analyst bilaterally Reflexes: 3+ brisk and symmetric over [...]
--- OUTSIDE RECORDS SUMMARY | ~2020-02-01 | XMS | Encounter Summary ---
Demographics + + + | Address | [address] | | | [place] [address] | + + + | Home Phone [...] + + + | Author | [facility] | | | and [place] | + + + | Organization | [facility] | | | and [place] | + + + | Address | Unknown | + + + | Phone | Unavailable | + + + Support + + +---------+ + | Name | Relationship | Address | Phone | + + +---------+ + | Milana Kobe | ECON | Unknown | | + + +---------+ + | Siomne Dye | ECON | Unknown | | + + +---------+ + Care Team Providers + +------+ + | Care Beverage Distiller Name | Role | Phone | + +------+ + | No, Unknownpcp | PCP | | + +------+ + Encounter Details +--------+ + + + + | Date | Type | Department | Care Team | Description | +--------+ + + + + | 01/07/ | Hospital | [facility] | Mookie Bustamante, | | | 2013 - | Encounter | [facility] | [address] | | | | | [address] | [place] | | | 01/11/ | | [place] [address] | [address] | | | 2012 | | [phone] | | | +--------+ + + + [...] Bustamante MD - 01/11/2013 9:47 [place] [address] Patient Name: PHOENIX DANGELO Provider: Mookie Bustamante MD Unit #: [id number] Location: [address] [place], [place] [address]t #: [id number] : 1965 ADMISSION DATE: 01/07/2013 DISCHARGE DATE: [...] Dr. Harvey. She saw Dr. Castro bose, hospital insurance representative, who did beside debridement. He recommended that [...] was to have her go home with [facility]. However, the patient says her father will not allow that. Thus, she will be going to the [facility]. I did speak with Dr. Noe Gaspar on the phone on 01/10/2013. She needs to fol low up with him but she also should have the hospital insurance representative to see her and I would say within s ix days. Ideally, you could have the hospital insurance representative come to the halfway. Check with Dr. Noe Gaspar which hospital insurance representative he wants her to see. She has seen a hospital insurance representative in the [facility] t. DISPOSITION: The patient to be discharged to the halfway in improved condition. DIET: Will be diabetic, low fat, low cholesterol. She should work with physical therapy and if you have a wound care nurse as well. She can ambulate but I would have her minimize pressure on her right forefoot where she has the [facility] er. CODE STATUS: FULL CODE. MEDICATIONS 1. [...] Hypoglycemia protocol. We have one here but halfway might have one but we include d ours. Glucoscans before meals. Again, she needs close followup with Dr. Noe Gaspar as well as contact Dr. Noe [facility]'s office for which hospital insurance representative to see and ideally the hospital insurance representative should start seeing he r at the halfway and have your wound care team see her as well in the halfway. Time of discharge more than 30 minutes. DICTATED BY: Mookie Bustamante MD Internal Medicine JOB #: [id number] EXT JOB #:[id number] cc: Dr Noe Gaspar in [facility] <<Signature on File>> Mookie Bustamante MD0 01/13/13 0536 <Electronically signed by Mookie Bustamante MD> documented in this encounter H&P Notes Provider Not, In System - 01/07/2013 4:10 [place] [address] Patient Name: CHINOPHOENIX STANTON Provider: Lam Harvey MD Unit #: [id number] Location: [address] [place] [address] #: [id number] : 1965 DATE: 01/07/2013 CHIEF COMPLAINT: Swollen foot. HISTORY OF PRESENT ILLNESS: Ms. Dangelo is a 47-year-old white female followed by Dr. Rick darnell in [place] who has diabetes mellitus type 2 and [...] she went to the emergency department in [facility] e she was found to have a significant cellulitis, was given vancomycin and was transferred to [place] primarily because of some hyperkalemia and some [...] off. LABORATORY STUDIES: Laboratory studies done in [place] show a blood sugar 152. BUN 34, [...] on culture. Blood cultures were obtained in [place] and I will cu lture the open lesion. I suspect her potassium will normalize with the Kayexalate and the w ithdrawal of triamterene and nonsteroidals. I expect the patient will do well. DICTATED BY: Lam Harvey MD JOB #: [id number] EXT JOB #:[id number] cc: Noe Gaspar MD <<Signature on File>> [...] Performed At | + + + | [facility] | [place] | | Department [address] [place] [address] | [facility] | | [ rep ct [address]] [ rep [facility] | | [facility]] Signed | - IMAGING | | | | | Patient Name: PHOENIX DANGELO Physician: | | | RASC.01 : 1965 Age: 47 Sex: F Unit #: [id number] | | | Exam Date: 01/10/13 Location: [address] [place] [address] | | | Report #: [id number] Page: | | | %(RAD)RES..mtdd.print.filter("pg") of %(RAD) | | | RES..mtdd.print.filter("tpg") | | | | | | Accession Number: [id number]; [id number]; | | | [id number], [id number], [id number], [id number] PICC | | | LINE PLACEMENT CLINICAL [...] Transcribed | | | Date/Time: 01/10/2013 17:07 Audiology Doctor: | | | <<Signature on File>> | | | Campbell | | | Eloise Ocasio MD01/11/13 1032 <Electronically signed by Campbell Navas | | | Amarjit KAPLAN> Campbell Ocasio MD 01/11/13 08 | | | Audiology Doctor: Chantel Vmkxbbadlckzd61/17/13829 | | | | | + + + + + + + + | Performing | Address | City/State/Zipcode | Phone Number | | Organization | | | | + + + + + | [facility] | [address] | [place] | [phone] | | [facility] | | [address] | | | - IMAGING | | | | + + + + + XR Chest PA or AP (01/11/2013 8:30 AM PDT) + + | Specimen | + + | | + + + + + | Narrative | Performed At | + + + | [facility] | [place] | | Department [address] [facility] | [facility] | | [ rep ct street1+[address]] [ rep [facility] | | st zip] Signed | - IMAGING | | | | | Patient Name: PHOENIX DANGELO Physician: | | | SANDI.01 : 1965 Age: 47 Sex: F Unit #: [id number] | | | Exam Date: 01/10/13 Location: [address] [place] [address] | | | Report #: [id number] Page: | | | %(RAD)RES..mtdd.print.filter("pg") of %(RAD) | | | RES..mtdd.print.filter("tpg") | | | | | | Accession Number: [id number]; [id number]; | | | [id number], [id number], [id number], [id number] PICC | | | LINE PLACEMENT CLINICAL [...] Transcribed | | | Date/Time: 01/10/2013 17:07 Audiology Doctor: | | | <<Signature on File>> | | | Campbell | | | Eloise Ocasio MD01/11/13 1032 <Electronically signed by Campbell Navas | | | Amarjit KAPLAN> Campbell Ocasio MD 01/11/13 08 | | | Audiology Doctor: TalentBin Getakscaeyvuz57/17/13 0830 | | | | | + + + + + + + + | Performing | Address | City/State/Zipcode | Phone Number | | Organization | | | | + + + + + | [facility] | [address] | [place] | [phone] | | [facility] | | [address] | | | - IMAGING | | | | + + + + + XR Chest PA or AP (01/11/2013 8:30 AM PDT) + + | Specimen | + + | | + + + + + | Narrative | Performed At | + + + | [facility] | [place] | | Department [address] [place] [address] | [facility] | | [ rep ct street1+2] [ rep [facility] | | st zip] Signed | - IMAGING | | | | | Patient Name: PHOENIX DANGELO Physician: | | | RASC.01 : 1965 Age: 47 Sex: F Unit #: [id number] | | | Exam Date: 01/10/13 Location: [address] [place] [address] | | | Report #: [id number] Page: | | | %(RAD)RES..mtdd.print.filter("pg") of %(RAD) | | | RES..mtdd.print.filter("tpg") | | | | | | Accession Number: [id number]; [id number]; | | | [id number], [id number], [id number], [id number] PICC | | | LINE PLACEMENT CLINICAL [...] Transcribed | | | Date/Time: 01/10/2013 17:07 Audiology Doctor: | | | <<Signature on File>> | | | Campbell | | | Eloise Ocasio MD01/11/13 1032 <Electronically signed by Campbell Navas | | | Amarjit KAPLAN> Campbell Ocasio MD 01/11/13829 | | | Audiology Doctor: Chantel Bnmtehlzbxdaw49/17/13829 | | | | | + + + + + + + + | Performing | Address | City/State/Zipcode | Phone Number | | Organization | | | | + + + + + | [facility] | [address] | [place] | [phone] | | [facility] | | [address] | | | - IMAGING | | | | + + + + + XR Chest PA or AP (01/10/2013 3:18 PM PDT) + + | Specimen | + + | | + + + + + | Narrative | Performed At | + + + | [facility] | [place] | | Department [address] [facility] | [facility] | | [ rep ct street1+2] [ rep [facility] | | st zip] Signed | - IMAGING | | | | | Patient Name: PHOENIX DANGELO Physician: | | | YE. : 1965 Age: 47 Sex: F Unit #: [id number] | | | Exam Date: 01/10/13 Location: [address] [place] [address] | | | Report #: [id number] Page: | | | %(RAD)RES..mtdd.print.filter("pg") of %(RAD) | | | RES..mtdd.print.filter("tpg") | | | | | | Accession Number: [id number] | | | [id number], [id number], [id number], [id number] PICC LINE PLACEMENT | | | CLINICAL [...] Transcribed Date/Time: 01/10/2013 17:07 | | | Audiology Doctor: <<Signature on File>> | | | | | | Campbell Ocasio MD01/10/13 5616 <Electronically signed by Campbell Navas | | | Amarjit KAPLAN> Campbell Ocasio MD 01/10/13 1106 | | | Audiology Doctor: Chantel Dfbxerfkginhb37/16/13 6404 | | | | | + + + + + + + + | Performing | Address | City/State/Zipcode | Phone Number | | Organization | | | | + + + + + | [facility] | [address] | [place], [place] | [phone] | | [facility] | | [address] | | | - IMAGING | | [...] + | [facility] | [address] | [place], [place] | [phone] | | [facility] | | [address] | | | - LABORATORY | | | | + + + + + | [facility] | [address] | [place], [place] | | | [facility] | | [address], [facility] | | | - [...] | 0.86 | 0.60 - 1.30 | [facility] | | | | | mg/dL | [...] + | [facility] | [address] | [place], [place] | [phone] | | [facility] | | [address] | | | - LABORATORY | | | | + + + + + | [facility] | [address] | [place], [place] | | | [facility] | | [address], [facility] | | | - [...] + | [facility] | [address] | [place], [place] | [phone] | | [facility] | | [address] | | | - LABORATORY | | | | + + + + + | [facility] | [address] | [place] | | | [facility] | | [address] [place] [address] | | | - LABORATORY | | [...] 14 | 7 - 18 mg/dL | [facility] | | | | | | [facility] | | | | | | MEDICAL | | | | | | CENTER - | | | | | | LABORATORY | | + + + + + + | Creatinine | 1.06 | 0.60 - 1.30 | [facility] | | | | | mg/dL | [facility] | | | | | | MEDICAL | | | | | | CENTER - | | | | | | LABORATORY | | + + + + + + | Estimated | 56 (L)Comment: For | >60 mL/min/A | [facility] | | | GFR | -Americans, [...] + | [facility] | [address] | [place] | [phone] | | [facility] | | [address] | | | - LABORATORY | | | | + + + + + | [facility] | [address] | [place], [place] | | | [facility] | | [address] | | | - LABORATORY | | [...] + | [facility] | [address] | [place], [place] | [phone] | | [facility] | | [address] | | | - LABORATORY | | | | + + + + + | [facility] | [address] | [place] | | | [facility] | | [address] [place] [address] | | | - LABORATORY | | [...] [address] | [place] | [phone] | | [facility] | | [address] | | | - LABORATORY | | | | + + + + + | [facility] | [address] | [place] | | | [facility] | | [address], [facility] | | | - [...] + | [facility] | [address] | [place], [place] | [phone] | | [facility] | | [address] | | | - LABORATORY | | | | + + + + + | [facility] | [address] | [place], [place] | | | [facility] | | [address] [place] [address] | | | - LABORATORY | | [...] + | [facility] | [address] | [place], [place] | [phone] | | [facility] | | [address] | | | - LABORATORY | | | | + + + + + | [facility] | [address] | [place], [place] | | | [facility] | | [address] | | | - LABORATORY | | [...] [address] | [place] | [phone] | | [facility] | | [address] | | | - LABORATORY | | | | + + + + + | [facility] | [address] | [place] | | | [facility] | | [address] | | | - LABORATORY | | [...] + | [facility] | [address] | [place], [place] | [phone] | | [facility] | | [address] | | | - LABORATORY | | | | + + + + + | [facility] | [address] | [place], [place] | | | [facility] | | [id number] [place] [address] | | | - LABORATORY | | [...] | | | | | | [facility] [place] | | | | | | Rifampin [...] | | | | | | [facility] [place] | | | | | | Rifampin [...] + | [facility] | [address] | [place], [place] | [phone] | | [facility] | | [address] | | | - LABORATORY | | | | + + + + + | [facility] | [address] | [place], [place] | | | [facility] | | [address] [place] [address] | | | - LABORATORY | | | | + + + + + documented in this encounter Visit Diagnoses Not on filedocumented in this encounter
--- OUTSIDE RECORDS SUMMARY | ~2020-02-01 | XMS | Encounter Summary ---
Demographics + + + | Address | [address] | | | [place] [address] | + + + | Home Phone [...] Team Providers + +------+ + | Care Automotive Service Director Name | Role | Phone | + [...] PHYSIATRY [address] | MD [address] | | | | | [address] | [place], [place] | | | | | [place], [place] | [address] | | | | | [address] | | | | | | [phone] | | | +--------+ + + + [...]
--- OUTSIDE RECORDS SUMMARY | ~2020-02-01 | XMS | Encounter Summary ---
Demographics + + + | Address | [address] | | | [place] [address] | + + + | Home Phone [...] Team Providers + +------+ + | Care Banking Specialist Name | Role | Phone | + +------+ + | Roberth Gaspar MD | PCP | | + +------+ + Encounter Details +--------+ + + + + | Date | Type | Department | Care Team | Description | +--------+ + + + + | 01/22/ | Orders Only | [facility] | Provider, | | | 2019 | | SYSTEM GENERIC OP | [address] | | | | | [address] | [address] | | | | | [address] [place], [place] | [place] [address] | | | | | [address] | | | | | | [phone] | | | +--------+ + + + [...]
--- OUTSIDE RECORDS SUMMARY | ~2020-02-01 | XMS | Encounter Summary ---
Demographics + + + | Address | [address] | | | [place] [address] | + + + | Home Phone | | + + + | Preferred Language | Unknown | + + + | Marital Status | Legally | + + + | Mormonism Affiliation | Unknown | + + + | Race | Unknown | + + + | Ethnic Group | Unknown | + + + Author + + + | Author | [facility] | | | and [place] | + + + | Organization | [facility] | | | [...] Team Providers + +------+ + | Care Cremator Name | Role | Phone | + [...] 11/20/ | Hospital | [facility] | EmyStephany jaramillomoises, | Anemia of chronic | | 2020 - | Encounter | [facility] | [address] | disease; Chronic | | | | [address] | [place] [address] | pain syndrome; CKD | | 11/28/ | | [place], [place] | [phone] | (chronic kidney | | 2020 | | [address] | | disease), stage III | | | | [phone] | Charlene Rao DO | ([facility]); Empyema of | | | | | [address] | pleural space ([facility]); | | | | | [place] [address] | Essential | | | | | [phone] | hypertension, | | | | | | benign; Pneumonia of | | | | | Fredrick Rubin | right lower lobe | | | | | MD Eloise [address] | due to methicillin | | | | | BLVD [place], [place] | resistant | | | | | [address] | Staphylococcus | | | | | | aureus (MRSA) ([facility]); | | | | | Sanaz Vásquez, | Type 2 diabetes | | | | | [address] | mellitus 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, without | | | | | | long-term current | | | | | Romario Rodrigez MD | use of insulin | | | | | [address] | ([facility]); Pulmonary | | | | | [place] [address] | nodules; | | | | | [phone] | Thrombocytosis | | | | | | ([facility]); Loculated | | | | | | pleural effusion; | | | | | | EVA (acute kidney | | | | | | injury) ([facility]); | | | | | | Sepsis, due to | | | | | | unspecified | | | | | | organism, | | | | | | unspecified whether | | | | | | acute organ | | | | | | dysfunction present | | | | | | ([facility]); Chronic | | | | | | obstructive | | | | | | pulmonary disease, | | | | | | unspecified COPD | | | | | | type ([facility]); Weakness | | | | [...] of empyema. The patient was transferred to [facility] for further workup. Interventional radio logy was [...] who recommended SNF. Patient was accepted to [facility] swing bed with plan to complete IV ceftaroline until December 08, 2019 . Case was discussed with the accepting physician at [facility]. Discharge Exam and Data: Vital Signs: BP [...] Value Units Date/Time Culture, Body Fluid Sterile [[id number]] Collected: 11/23/19 1055 Order Status: Completed Lab Status: Final result Updated: 11/27/19 0657 Specimen: Body Fluid from Abscess Gram Stain Result NO CELLS OR ORGANISMS SEEN RESULT NO GROWTH 4 DAYS RESULT Testing performed at [facility], [address] [place] [address] Comment: Testing performed at [facility], [facility] [place] [address] Clostridium difficile A and B EIA [[id number]] Order Status: Canceled Lab Status: No result [...] analysis per the clinician's orders. A 12 Lebanese locking pigtail catheter is placed. Signed by: [...] December 08, 2019 Discharge Information: Follow up: [facility] INF[facility] [address] [facility] [address] On 12/07/2019 follow up infection/pneumonia Remi aTlley MD [address] [address] Schedule an appointment as soon as possible [...] might be di fferent from the original. [facility]: Hospitalist Progress Note Pt: [place] Dangelo [...] [facility] on11/11/19due to dyspnea and fevers.Her labs showed [...] suggestive of empyema.She was then transferred to [facility] for CT Surgery evaluation. She was [...] hours. No results for input(s): PHART, PO2ART, IBV5RXX, [id number], BEART in the last 168 hours. Recent [...] analysis per the clinician's orders. A 12 Lebanese locking pigtail catheter is placed. Signed by: [...] and managing patient and counseling/coordination. Dictation software, Ameibo, used which may contain error for similar [...] this note might be different from the [facility]: Infectious Disease Progress Note Hospital Day: [...] Psychiatric: Appropriate mood and affect PICC at [facility] DATA Recent Results (from the past [...] Small right pleural effusion Signed by: Hugh Zohu David Sign Date/Time: 11/28/2019 10:54 AM Chest [...] are stable. 4. No pneumothorax. Signed by: [facility] Mark Sign Date/Time: 11/27/2019 6:21 AM [...] analysis per the clinician's orders. A 12 Lebanese locking pigtail catheter is placed. Signed by: [...] collection. Sample of pleural fluid is obtai iarida and sent for laboratory analysis per the clinician's orders. A 12 Lebanese locking pigtail catheter is placed. Signed by: [...] M D - 11/27/2019 10:18 AM PDT [facility] Service: Infectious Disease Progress Note Hospital Day: [...] Psychiatric: Appropriate mood and affect PICC at [facility] DATA Recent Results (from the past [...] [facility] on 11/11/19 due to dyspnea an d [...] empyema . She was then transferred to [facility] for CT Surgery evaluation. She was [...] diagnosed with Pneumonia and admit brandyn at [facility] requiring IV antibiotics. She [...] then she will need rehab preferably at [facility] Sw[facility] Bed Program for IV [...] in another 1 to 2 days to [facility] in [facility] or when st able and cleared by [...] 1:14 PM Pharmacist: Mercedes Roberts [facility] Fredrick Killian MD - 11/26/2019 [...] [facility] on 11/11/19 due to dyspnea an d [...] empyema . She was then transferred to [facility] for CT Surgery evaluation. She was [...] PICC line will be placed soon for care home antibiotics. Anemia of Chronic Disease with Vitamin [...] in another 2 to 3 days to [facility] in [facility] or when st able and improved and cleared by ID and IR services. Fredrick Rubin MD 11/26/2019 aranada, Abi hannah MD - 11/25/2019 2:11 PM PDTFormatting of this note might be different from the [facility]: Infectious Disease Progress Note Hospital Day: [...] Lovenox. Eventual plan to Swing bed at [facility] in [place]. ? Wednesday or Wednesday. Sanaz Vásquez MD [...] analysis per the clinician's orders. A 12 Lebanese locking pigtail catheter is placed. Signed by: [...] might be different from the or iginal. [facility] Service: Infectious Disease Progress Note Hospital Day: [...] SEEN Gram Stain Result Testing performed at [facility], [address] [place] [address] RESULT PENDING POC Glucose Collection Time: 11/23/19 [...] THIS TIME P RESULT Testing performed at [facility], [address] [place] [id number] P Comment: Testing performed at [facility], [address] [place] [address] Resulting Agency [facility] Specimen [...] [facility] on 11/11/19 due to dyspnea an d [...] empyema . She was then transferred to [facility] for CT Surgery evaluation. She was [...] SEEN Gram Stain Result Testing performed at [facility], [address] [place] [address] RESULT PENDING POC Glucose Result Value Ref [...] diagnosed with Pneumonia and a dmitted at [facility] requiring IV antibiotics. She [...] another 2 to 3 4 [facility] or when stable and improved and cleared by ID and IR services. Fredrick Rubin MD 11/24/2019 Shital Carmichael [facility] - 11/23/2019 11:30 PM PDTFormatting [...] the following patient-specific PK parameters. Ke = 0.29527 1/hr T1/2 = 21 hours Estimated time [...] indicated. Thank You, Allyssa Johnson, [facility], 11/23/2019, 11:21 PM Patricia Alcocer RN - 11/23/2019 12:34 PM [facility] for [facility]. Will invest igate benefits and follow up with CM. Thank you for your referral. Patricia Macedo RN [phone] 1300: We are not contracted with this [facility] OR plan, CM notified.Electronically sosa d [...] [facility] on 11/11/19 due to dyspnea an d [...] empyema . She was then transferred to [facility] for CT Surgery evaluation. Events Overnight: [...] diagnosed with Pneumonia and a dmitted at [facility] requiring IV antibiotics. She [...] this note might be different from the [facility]: Infectious Disease Progress Note Hospital Day: [...] might be different from the haritha robbins [facility] Hospitalist Progress Note Hospital Day: 1 HPI SUMMARY: Mrs. Dangelo is a 54 yo F with PMHx of DM2, chronic pain, COPD who presented to [facility] on 11/11/19 with SOB and [...] suggestive of empyema. Patient transferr ed to [facility] for CT Surgery consultation. CT Surgery [...] socks. Charlene Rao DO 11/22/2019 Michael Valerio [facility] - 11/21/2019 10:55 PM PDT [...] might be different from the origi nal. [facility]: Hospitalist Admission History & Physical Date [...] [facility] for right-sided empyema. This patient was admitted to [facility] on November 11, 2019 with chief complaint [...] of empyema. So patient was transferred for [facility] othoracic surgery consultation here. Today [...] GALLBLADDER SURGERY 1997 [facility] SINUS SURGERY 1998 [facility] Medications Prior to Admission Medication Sig Dispense [...] file Gets together: Not on file Attends rastafari service: Not on file Active member of [...] on file Social History Narrative Lives in [place] with her brother and father, independent with [...] PDTAssociated Order(s): PROVIDER TO PROVIDER C ONSULT [facility]: Infectious Diseases Initial Consult Note Date of Admission: 11/21/2019 Reason for Consultation: Advice on antibiotics for right lower lobe MRSA pneumonia, suspect ed empyema Requesting Physician: Dr. Rhonda Blas, Hospitalist History Obtained From: Patient, Chart review and Referring MD CHIEF COMPLAINT: Transferred from [facility] for further care of parapneumonic effusio [...] [facility] on 11/11/2019 for shortness of breath o [...] 11/16 on p.o. doxycycline [facility]. The patient returned to the emergency room within a few hours of discharge for worsening sy mptoms. Chest x-ray showed right-sided pleural effusion. On readmission, the patient's WBC was 22,000. She was continued on p.o. doxycycline. She was described as having nonproduct fernando cough, episodic dyspnea and having no fevers. WBC ranged from 18-20,000. On 11/20, [facility] t CT scan showed loculated right [...] given 2 g of IV vancomycin at [facility] and then transferred to [facility] for CT surgery evaluation. On presentation at [facility] on 11/20, she was described as [...] Left 2000 Dr. Anguiano GALLBLADDER SURGERY 1997 [facility] SINUS SURGERY 1998 [facility] Allergies Allergen Reactions Penicillins Shortness Of Breath [...] activity: Never Social History Narrative Lives in [place] with her brother and father, independent with [...] note might be different from the original. [facility] Cardiothoracic Surgery CONSULTATION NOTE Pt. Name/Age/: [...] [facility] on November 11, 2019 wit h chief [...] Left 1999 Dr. Anguiano GALLBLADDER SURGERY 1997 [facility] SINUS SURGERY 1998 [facility] Allergies: Allergies Allergen Reactions Penicillins Shortness Of [...] (Adjusted) Intravenous Q12H Nita Salvador, [facility] vancomycin per pharmacy Other Pharmacy [...] file Gets together: Not on file Attends rastafari service: Not on file Active member of [...] on file Social History Narrative Lives in [place] with her brother and father, independent with [...] signed by: PETER Britt 11/22/2019 7:[address] [facility] Associated attestation - Akhil Walden [...] Integrity Outcome: Met Pt to discharge to [facility] bed. To leave PICC line in for continued antibiotic treatment. Report called to nurse Limon. All questions answered. D/C per taxi at 1400. E lectronically signed by Bev Rico RN at 11/29/2019 2:01 PM PDTPlan of Jef Celestin MSW - 11/29/2019 1:02 PM PDTCare Management SNF/LTACH Final Discharge Plan Readmission Risk: Medium Discharge Plan Planned Disposition: Swing bed Planned Destination: [facility] Swing [facility] of Choice: YES Facility Information: Address: [address] [place] [address] Community Care Provider: Dr. Romero Patient/Family Notified: yes Transportation will be provided by: taxi, other (comment)([employer] - ) Transportation Date/Time: taxi, other (comment)([employer] - [phone]) 1400 Ride Contact: Name: [facility] [employer] [phone] Phone: [employer] [phone] Confirmed 3 Qualifying Midnights: yes SNF Authorization Received: yes Benefits and Co-Pays: none at this time - already obtained [employer] Authorization PASRR Completed: yes Electronically signed: KOREY CASTRO 11/29/2019 1:02 PM lan of Jef Green MSW - 11/29/2019 8:34 AM PDTDISCHARGE PLANNING SUPERVISOR WALL MIRROR DEPARTMENT p/c msg with Anthony Davison, Admissions at [facility] ([phone] ph, fax) regarding status of insurance authorization from [facility] Medic aid, with hopes of obtaining it this morning to discharge today. SUPERVISOR WALL MIRROR DEPARTMENT p/c msg with Debra Combs, Admissions at [facility] Bed ph). SUPERVISOR WALL MIRROR DEPARTMENT p/c with Debra Combs, Admissions at [facility] Bed ([phone] ph) states their census went high last night and unable to accept this Pt today. SUPERVISOR WALL MIRROR DEPARTMENT met with Pt regarding this update about [place] and Pt states her preference is now (a) [facility] Swing Bed. and (b) [facility] [place]. SUPERVISOR WALL MIRROR DEPARTMENT p/c left msg with Rhondi, admissions at [facility] [place] regarding ref ashwini, SUPERVISOR WALL MIRROR DEPARTMENT p/c with Taisha Michael, [facility] Swing Bed Program, states will consider Pt , reviewing referral. States they have open beds, and we already have insurance auth from [facility] [phone] ph. SUPERVISOR WALL MIRROR DEPARTMENT p/c with Rhondi with [facility], states they already have insurance auth f rom [facility] [phone] ph, DCP: Pending placement at [facility] Swing Bed Program. If Pt goes to [facility] Swing Bed, Pt will need transportation from [employer] [phone], they often ask for 24 hrs Avoidable days documented for delay with insurance authorization for [facility]. KOREY CASTRO [phone] cell lan of Care - Jonathon Lu, PT - 11/29/2019 7:32 AM PDT Physical Therapy Treatment Note Recommended discharge disposition: [facility] facility Post discharge physical therapy recommendation: will [...] Device: none Supine to Sit, Level of [place]: modified independent Safety Issues: decreased use of legs for bridging/pushing Transfers Additional Documentation: sit to/from stand Sit-Stand, Level of [place]: contact guard assist Stand-Sit, Level of [place]: contact guard assist [id number], Assistive Device: 4 wheeled walker (4WW) Impairments: impaired balance Gait Level of [place]: contact guard assist Assistive Device: 4 wheeled walker (4WW) Distance (feet): 50 x 2 Impairments: impaired balance Goals Reflects last filed data and may be from multiple contributors. Gait Goal Most Recent Value LTG Status not met, continued at 11/29/2019 0732 LTG [place] Level modified independent at 11/29/2019 0732 LTG Assistive Device cane (straight, single point) at 11/29/2019 0732 LTG Distance (feet) 150 at 11/29/2019 0732 Stair Goal Most Recent Value LTG Status not met, continued at 11/29/2019 0732 LTG [place] Level stand by assist at 11/29/2019 0732 [...] Physical Therapy Treatment Note Recommended discharge disposition: [facility] facility Post discharge physical therapy recommendation: home [...] quickly. Encouraged pt. to ambulate with staff development manager multiple times throughout the day. Precautions Precautions/Limitations: falls Transfers Additional Documentation: sit to/from stand Sit-Stand, Level of [place]: contact guard assist Stand-Sit, Level of [place]: contact guard assist [id number], Assistive Device: 4 wheeled walker (4WW) Impairments: impaired balance Gait Level of [place]: contact guard assist Assistive Device: 4 wheeled walker (4WW) Distance (feet): 40 x 2 Additional Documentation: safety, impairments Impairments: impaired balance Goals Reflects last filed data and may be from multiple contributors. Gait Goal Most Recent Value LTG [place] Level modified independent at 11/22/2019 1045 LTG Assistive Device cane (straight, single point) at 11/22/2019 1045 LTG Distance (feet) 150 at 11/22/2019 1045 Stair Goal Most Recent Value LTG [place] Level stand by assist at 11/22/2019 1045 [...] Rodrigez MD Transferring Medical Center: Receiving Facility: [facility] Provider after Transfer: PCP NURSE ASSESSMENT Recent [...] Follow-Up Appointments House provider in 3-5 days [facility] INFECT[facility] DIS[facility] [address] [facility] [address] On 12/07/2019 follow up infection/pneumonia Remi Talley MD [address] [id number] Schedule an appointment as soon as possible for a visit in 1 week hospital follow up Certification I certify that the following level of post-hospital care is medically necessary on a contin uing basis for any of the conditions for which she received care during this hospitalization : Skilled ([facility] Facility with 24-hour skilled RN service) Physician [...] MSW - 11/28/2019 11:29 AM PDTDISCHARGE PLANNING SUPERVISOR WALL MIRROR DEPARTMENT p/c with Anthony Saman, Admissions at [facility] ([phone] ph, fax) states they want to accept this patient back to their hospital, states they a re awaiting for insurance authorization from [facility] Medicaid, states this usuall y takes about 24 hours, states this has been already started. DCP: Pending at [facility] [place] - Awaiting for insurance authoriza tion Avoidable days documented for delay with insurance authorization for [facility] Med icaid. Anticipated discharge on 11/28 KOREY CASTRO [phone] cell lan of Regla - Renetta Giang [...] MSW - 11/27/2019 3:26 PM PDTDISCHARGE PLANNING SUPERVISOR WALL MIRROR DEPARTMENT p/c with Debra Combs, jose at [facility], states their physician Leif Richards DO is currently reviewing the incomplete notes from [facility] Erickson. [facility] at [phone] will provide transportation. DCP: Pending at [facility] KOREY CASTRO [phone] cell lan of Renetta Junior RN - [...] check complete. Adriana Mcnulty RN lan of [facility] - Sakshi Quiñonez cia, RN - 11/26/2019 [...] call light appropriately. A M PDTPlan of [facility] - Adriana Mcnulty RN - 11/25/2019 5:39 [...] ing Next Steps: CM sent referral to [facility] Community Support Services Current Outpt/Agency/Support [...] home. PT evaluation recommend s Home health, [facility] referral sent and following for discharge If needed. Pt currently on I VAB. Per , Pt IVAB to change to Ceftaroline, for a duration of 2-3 weeks. Pt's in surance not covered by [facility] or [facility]. CM sent referral to [facility] for placement, will need to follow up with updated ID notes from today 0. Likely no other CM needs from Case Management at this time. CM will continue to follow fo r discharge planning, pending clinical course. Electronically signed: Tala Shetty RN 11/24/2019 11:55 AM lan of Care - Carl Yina A, SCHOOL BUS AIDE - 11/24/2019 10:05 AM PDT Physical Therapy [...] bed rails Supine to Sit, Level of [place]: modified independent Sit to Supine, Level of [place]: modified independent Transfers Additional Documentation: sit to/from stand Sit-Stand, Level of [place]: stand by assist Stand-Sit, Level of [place]: stand by assist [id number], Assistive Device: 2 wheeled walker (FWW) Impairments: impaired balance Gait Level of [place]: contact guard assist Assistive Device: 2 wheeled walker (FWW) Distance (feet): 2x40 Additional Documentation: safety, impairments Impairments: impaired balance Balance Sitting Balance: Static: good balance Sitting Balance: Dynamic: good balance Standing Balance: Static: good balance Standing Balance: Dynamic: fair balance Goals Reflects last filed data and may be from multiple contributors. Gait Goal Most Recent Value LTG [place] Level modified independent at 11/22/2019 1045 LTG Assistive Device cane (straight, single point) at 11/22/2019 1045 LTG Distance (feet) 150 at 11/22/2019 1045 Stair Goal Most Recent Value LTG [place] Level stand by assist at 11/22/2019 1045 [...] return the follow ing day. lan of [facility] Demetris, Tala Jacobs RN - 11/23/2019 [...] Pt currently on IVAB-Va ncomycin and Levofloxacin. [place] following for potential for home IVABl. [place] to check insurance coverage for services and to contact this CM. PT recommends home with assist , and Home Health. CM sent referral to [facility] and updated on potential discharge date. [...] loculated pleural effusion Post OP Diagnosis: Same Resaw Operator: Calderon Leggett MD MD Anesthesia Type: Mod [...] call light within reach, cane at bedside, turbinated bone grinder socks on, n ight light on. lan [...] safe to return home with assist and [facility] PT. Living Environment Lives With: father, [...] Device: none Supine to Sit, Level of [place]: independent Sit to Supine, Level of [place]: independent Transfers Additional Documentation: sit to/from stand Sit-Stand, Level of [place]: stand by assist Stand-Sit, Level of [place]: stand by assist [id number]-[id number]-Eas, Assistive Device: none, cane (straight, single point) Impairments: impaired balance Gait Gait Comments: With no AD, pt with increased lateral sway and near loss of balance with zackary f-recovery. SPC trialed with giat training on proper use. Level of [place]: stand by assist Assistive Device: cane (straight, [...] contributors. Gait Goal Most Recent Value LTG [place] Level modified independent at 11/22/2019 1045 LTG Assistive Device cane (straight, single point) at 11/22/2019 1045 LTG Distance (feet) 150 at 11/22/2019 1045 Stair Goal Most Recent Value LTG [place] Level stand by assist at 11/22/2019 1045 [...] Treatment creams applied. lan of Care - [facility] priscilla, KOREY Pang - 11/22/2019 9:19 AM [...] Testing | 65 - 99 mg/dL | [facility] HOSPITAL | | | POC | performed at [facility];[address] | | LABORATORY | | | | [facility];[place], [place] | | | | | | [address] | | | | + + + + + + + + | Specimen | + + | | + + + + + + + | Performing | Address | City/State/Zipcode | Phone Number | | Organization | | | | + + + + + | [facility] | [address] | [place] [address] | [phone] | + + + + + POC Glucose (11/29/2019 8:01 AM PDT) + + + + + + | Component | Value | Ref Range | Performed | Pathologist | | | | | At | Signature | + + + + + + | Glucose, | 126 (H)Comment: Testing | 65 - 99 mg/dL | [facility] | | | POC | performed at [facility];[address] | | LABORATORY | | | | [address];[place], [place] | | | | | | [address] | | | | + + + + + + + + | Specimen | + + | | + + + + + + + | Performing | Address | City/State/Zipcode | Phone Number | | Organization | | | | + + + + + | [facility] | [address] | [place] [address] | [phone] | + + + + + Comprehensive [...] | | | | | performed at [facility] | | | | | | [facility];[place], [place] | | | | | | [address] | | | | + + + + + + + + | Specimen | + + | Blood | + + + + + + + | Performing | Address | City/State/Zipcode | Phone Number | | Organization | | | | + + + + + | [facility] | [address] | [place] [address] | [phone] | + + + + + POC [...] | | | POC | performed at [facility];888 | | LABORATORY | | | | [address];[place] | | | | | | [address] | | | | + + + + + + + + | Specimen | + + | | + + + + + + + | Performing | Address | City/State/Zipcode | Phone Number | | Organization | | | | + + + + + | [facility] | [address] | [place] [address] | [phone] | + + + + + POC Glucose (11/28/2019 5:04 PM PDT) + + + + + + | Component | Value | Ref Range | Performed | Pathologist | | | | | At | Signature | + + + + + + | Glucose, | 92Comment: Testing | 65 - 99 mg/dL | [facility] | | | POC | performed at [facility];888 | | LABORATORY | | | | [address];[place] | | | | | | [address] | | | | + + + + + + + + | Specimen | + + | | + + + + + + + | Performing | Address | City/State/Zipcode | Phone Number | | Organization | | | | + + + + + | [facility] | [address] | [place] [address] | [phone] | + + + + + POC Glucose (11/28/2019 11:55 AM PDT) + + + + + + | Component | Value | Ref Range | Performed | Pathologist | | | | | At | Signature | + + + + + + | Glucose, | 190 (H)Comment: Testing | 65 - 99 mg/dL | [facility] | | | POC | performed at [facility];[address] | | LABORATORY | | | | [address];[place] | | | | | | [address] | | | | + + + + + + + + | Specimen | + + | | + + + + + + + | Performing | Address | City/State/Zipcode | Phone Number | | Organization | | | | + + + + + | [facility] | [address] | [place] [address] | [phone] | + + + + + XR [...] Testing | 65 - 99 mg/dL | [facility] | | | POC | performed at [facility];[address] | | LABORATORY | | | | [address];[place] | | | | | | [address] | | | | + + + + + + + + | Specimen | + + | | + + + + + + + | Performing | Address | City/State/Zipcode | Phone Number | | Organization | | | | + + + + + | [facility] | [address] | [place] [address] | [phone] | + + + + + XR [...] | | | | | | MDRD IDMD traceable | | | | | | equation.Testing | | | | | | performed at [facility];[address] | | | | | | [facility];[place], [place] | | | | | | [address] | | | | + + + + + + + + | Specimen | + + | Blood | + + + + + + + | Performing | Address | City/State/Zipcode | Phone Number | | Organization | | | | + + + + + | [facility] | [address] | [place] [address] | [phone] | + + + + + CBC [...] LABORATORY | | | | performed at [facility];[address] | | | | | | [address];[place], [place] | | | | | | [address] | | | | | | | | | | + + + + + + + + | Specimen | + + | Blood | + + + + + + + | Performing | Address | City/State/Zipcode | Phone Number | | Organization | | | | + + + + + | [facility] | [address] | [place] [address] | [phone] | + + + + + POC [...] | | | POC | performed at [facility];[address] | | LABORATORY | | | | [address];[place], [place] | | | | | | [address] | | | | + + + + + + + + | Specimen | + + | | + + + + + + + | Performing | Address | City/State/Zipcode | Phone Number | | Organization | | | | + + + + + | [facility] | [address] [facility] | [place] [address] | [phone] | + + + + + POC [...] | | | POC | performed at [facility];[address] | | LABORATORY | | | | [address];[place], [place] | | | | | | [address] | | | | + + + + + + + + | Specimen | + + | | + + + + + + + | Performing | Address | City/State/Zipcode | Phone Number | | Organization | | | | + + + + + | [facility] | [address] | [place] [address] | [phone] | + + + + + POC Glucose (11/27/2019 12:22 PM PDT) + + + + + + | Component | Value | Ref Range | Performed | Pathologist | | | | | At | Signature | + + + + + + | Glucose, | 150 (H)Comment: Testing | 65 - 99 mg/dL | [facility] | | | POC | performed at [facility];[address] | | LABORATORY | | | | [address];[place] | | | | | | [address] | | | | + + + + + + + + | Specimen | + + | | + + + + + + + | Performing | Address | City/State/Zipcode | Phone Number | | Organization | | | | + + + + + | [facility] | [address] | [place] [address] | [phone] | + + + + + Comprehensive [...] 32 (L)Comment: GFR <60: | >60 | [facility] | | | GFR | CHRONIC [...] | | | | | | MDRD IDMD traceable | | | | | | equation.Testing | | | | | | performed at [facility], [address] | | | | | | [facility], | | | | | | [place] [address] | | | | + + + + + + + + | Specimen | + + | Blood | + + + + + + + | Performing | Address | City/State/Zipcode | Phone Number | | Organization | | | | + + + + + | [facility] | [address] | [place] [address] | [phone] | + + + + + POC [...] | | | POC | performed at [facility];[address] | | LABORATORY | | | | [address];[place] | | | | | | [address] | | | | + + + + + + + + | Specimen | + + | | + + + + + + + | Performing | Address | City/State/Zipcode | Phone Number | | Organization | | | | + + + + + | [facility] | [address] | [place] [address] | [phone] | + + + + + XR [...] LABORATORY | | | | performed at [facility], [address] | | | | | | [address], | | | | | | [place] [address] | | | | | | | | | | + + + + + + + + | Specimen | + + | Blood | + + + + + + + | Performing | Address | City/State/Zipcode | Phone Number | | Organization | | | | + + + + + | [facility] | [address] | [place] [address] | [phone] | + + + + + POC [...] | | | POC | performed at [facility];[address] | | LABORATORY | | | | [address];[place], [place] | | | | | | [address] | | | | + + + + + + + + | Specimen | + + | | + + + + + + + | Performing | Address | City/State/Zipcode | Phone Number | | Organization | | | | + + + + + | [facility] | [address] | [place] [address] | [phone] | + + + + + Lactic Acid (11/26/2019 8:22 PM PDT) + + + + + + | Component | Value | Ref Range | Performed | Pathologist | | | | | At | Signature | + + + + + + | Lactate, | 1.3Comment: Testing | 0.4 - 2.0 | [facility] | | | Serum | performed at [facility];888 | mmol/L | LABORATORY | | | | [address];[place], [place] | | | | | | [address] | | | | + + + + + + + + | Specimen | + + | Blood | + + + + + + + | Performing | Address | City/State/Zipcode | Phone Number | | Organization | | | | + + + + + | [facility] | [address] | [place] [address] | [phone] | + + + + + POC [...] | | | POC | performed at [facility];[address] | | LABORATORY | | | | [address];[place] | | | | | | [address] | | | | + + + + + + + + | Specimen | + + | | + + + + + + + | Performing | Address | City/State/Zipcode | Phone Number | | Organization | | | | + + + + + | [facility] | [address] | [place] [address] | [phone] | + + + + + POC Glucose (11/26/2019 5:14 PM PDT) + + + + + + | Component | Value | Ref Range | Performed | Pathologist | | | | | At | Signature | + + + + + + | Glucose, | 173 (H)Comment: Testing | 65 - 99 mg/dL | [facility] | | | POC | performed at [facility];[address] | | LABORATORY | | | | [address];[place] | | | | | | [address] | | | | + + + + + + + + | Specimen | + + | | + + + + + + + | Performing | Address | City/State/Zipcode | Phone Number | | Organization | | | | + + + + + | [facility] | [address] | [place] [address] | [phone] | + + + + + POC Glucose (11/26/2019 12:49 PM PDT) + + + + + + | Component | Value | Ref Range | Performed | Pathologist | | | | | At | Signature | + + + + + + | Glucose, | 162 (H)Comment: Testing | 65 - 99 mg/dL | [facility] | | | POC | performed at [facility];[address] | | LABORATORY | | | | [address];[place], [place] | | | | | | [address] | | | | + + + + + + + + | Specimen | + + | | + + + + + + + | Performing | Address | City/State/Zipcode | Phone Number | | Organization | | | | + + + + + | [facility] | [address] | [place] [address] | [phone] | + + + + + CBC [...] | | | | | | at [facility], [address] | | | | | | [facility], | | | | | | [place] [address] | | | | | |Testing performed at [facility], [address] [place] [address] | | | | | | | | | | + + +---- + + + + + | Specimen | + + | Blood | + + + + + + + | Performing | Address | City/State/Zipcode | Phone Number | | Organization | | | | + + + + + | [facility] | [address] | [place] [address] | [phone] | + + + + + POC [...] | | | POC | performed at [facility];[address] | | LABORATORY | | | | [address];[place] | | | | | | [address] | | | | + + + + + + + + | Specimen | + + | | + + + + + + + | Performing | Address | City/State/Zipcode | Phone Number | | Organization | | | | + + + + + | [facility] | [address] | [place] [address] | [phone] | + + + + + Basic [...] | | | | | performed at [facility], [address] | | | | | | [facility], | | | | | | [place] [address] | | | | + + + + + + + + | Specimen | + + | Blood | + + + + + + + | Performing | Address | City/State/Zipcode | Phone Number | | Organization | | | | + + + + + | [facility] | [address] | [place] [address] | [phone] | + + + + + DIAGNOSTIC [...] | | | POC | performed at [facility];[address] | | LABORATORY | | | | [address];[place] | | | | | | [address] | | | | + + + + + + + + | Specimen | + + | | + + + + + + + | Performing | Address | City/State/Zipcode | Phone Number | | Organization | | | | + + + + + | [facility] | [address] | [place] [address] | [phone] | + + + + + POC Glucose (11/25/2019 8:35 PM PDT) + + + + + + | Component | Value | Ref Range | Performed | Pathologist | | | | | At | Signature | + + + + + + | Glucose, | 199 (H)Comment: Testing | 65 - 99 mg/dL | [facility] | | | POC | performed at [facility];[address] | | LABORATORY | | | | [address];[place] | | | | | | [address] | | | | + + + + + + + + | Specimen | + + | | + + + + + + + | Performing | Address | City/State/Zipcode | Phone Number | | Organization | | | | + + + + + | [facility] | [address] | [place] [address] | [phone] | + + + + + POC Glucose (11/25/2019 5:08 PM PDT) + + + + + + | Component | Value | Ref Range | Performed | Pathologist | | | | | At | Signature | + + + + + + | Glucose, | 177 (H)Comment: Testing | 65 - 99 mg/dL | [facility] | | | POC | performed at [facility];[address] | | LABORATORY | | | | [address];[place] | | | | | | [address] | | | | + + + + + + + + | Specimen | + + | | + + + + + + + | Performing | Address | City/State/Zipcode | Phone Number | | Organization | | | | + + + + + | [facility] | [address] | [place] [address] | [phone] | + + + + + POC Glucose (11/25/2019 12:18 PM PDT) + + + + + + | Component | Value | Ref Range | Performed | Pathologist | | | | | At | Signature | + + + + + + | Glucose, | 190 (H)Comment: Testing | 65 - 99 mg/dL | [facility] | | | POC | performed at [facility];[address] | | LABORATORY | | | | [address];[place], [place] | | | | | | [address] | | | | + + + + + + + + | Specimen | + + | | + + + + + + + | Performing | Address | City/State/Zipcode | Phone Number | | Organization | | | | + + + + + | [facility] | [address] | [place] [address] | [phone] | + + + + + POC [...] | | | POC | performed at [facility];[address] | | LABORATORY | | | | [address];[place] | | | | | | [address] | | | | + + + + + + + + | Specimen | + + | | + + + + + + + | Performing | Address | City/State/Zipcode | Phone Number | | Organization | | | | + + + + + | [facility] | [address] | [place] [address] | [phone] | + + + + + POC [...] | | | POC | performed at [facility];[address] | | LABORATORY | | | | [address];[place] | | | | | | [address] | | | | + + + + + + + + | Specimen | + + | | + + + + + + + | Performing | Address | City/State/Zipcode | Phone Number | | Organization | | | | + + + + + | [facility] | [address] | [place] [address] | [phone] | + + + + + Basic [...] | 8.6 | 8.5 - 10.5 | [facility] | | | | | mg/dL | LABORATORY | | + + + + + + | Estimated | 39 (L)Comment: GFR <60: | >60 | [facility] | | | GFR | CHRONIC [...] | | | | | | MDRD IDMD traceable | | | | | | equation.Testing | | | | | | performed at [facility], [address] | | | | | | [facility], | | | | | | [place] [address] | | | | + + + + + + + + | Specimen | + + | Blood | + + + + + + + | Performing | Address | City/State/Zipcode | Phone Number | | Organization | | | | + + + + + | [facility] | [address] | [place] [address] | [phone] | + + + + + CBC [...] LABORATORY | | | | performed at [facility], [address] | | | | | | [facility], | | | | | | [place] [address] | | | | | |Testing performed at [facility], [address] [facility], [place] [address] | | | | | | | | | | + + +---- + + + + + | Specimen | + + | Blood | + + + + + + + | Performing | Address | City/State/Zipcode | Phone Number | | Organization | | | | + + + + + | [facility] | [address] | [place] [address] | [phone] | + + + + + POC [...] | | | POC | performed at [facility];[address] | | LABORATORY | | | | [address];[place] | | | | | | [address] | | | | + + + + + + + + | Specimen | + + | | + + + + + + + | Performing | Address | City/State/Zipcode | Phone Number | | Organization | | | | + + + + + | [facility] | [address] | [place] [address] | [phone] | + + + + + POC Glucose (11/24/2019 5:09 PM PDT) + + + + + + | Component | Value | Ref Range | Performed | Pathologist | | | | | At | Signature | + + + + + + | Glucose, | 121 (H)Comment: Testing | 65 - 99 mg/dL | [facility] | | | POC | performed at [facility];[address] | | LABORATORY | | | | [address];[place], [place] | | | | | | [address] | | | | + + + + + + + + | Specimen | + + | | + + + + + + + | Performing | Address | City/State/Zipcode | Phone Number | | Organization | | | | + + + + + | [facility] | [address] | [place] [address] | [phone] | + + + + + POC [...] | | | POC | performed at [facility];[address] | | LABORATORY | | | | [address] [facility];[place], [place] | | | | | | [address] | | | | + + + + + + + + | Specimen | + + | | + + + + + + + | Performing | Address | City/State/Zipcode | Phone Number | | Organization | | | | + + + + + | [facility] | [address] | [place] [address] | [phone] | + + + + + POC Glucose (11/24/2019 8:09 AM PDT) + + + + + + | Component | Value | Ref Range | Performed | Pathologist | | | | | At | Signature | + + + + + + | Glucose, | 162 (H)Comment: Testing | 65 - 99 mg/dL | [facility] | | | POC | performed at [facility];[address] | | LABORATORY | | | | [address];[place] | | | | | | [address] | | | | + + + + + + + + | Specimen | + + | | + + + + + + + | Performing | Address | City/State/Zipcode | Phone Number | | Organization | | | | + + + + + | [facility] | [address] | [place] [address] | [phone] | + + + + + XR [...] | | | | | performed at [facility], [address] | | | | | | [facility], | | | | | | [place] [address] | | | | + + + + + + + + | Specimen | + + | | + + + + + + + | Performing | Address | City/State/Zipcode | Phone Number | | Organization | | | | + + + + + | [facility] | [address] | [place] [address] | [phone] | + + + + + CBC [...] | | | | | | at [facility], [address] | | | | | | [address], | | | | | | [place] [address] | | | | | |Testing performed at [facility], [address] [facility], [place] [address] | | | | | | | | | | + + +---- + + + + + | Specimen | + + | Blood | + + + + + + + | Performing | Address | City/State/Zipcode | Phone Number | | Organization | | | | + + + + + | [facility] | [address] | [place] [address] | [phone] | + + + + + Vancomycin, [...] | | | | | performed at [facility] | | | | | | [facility];[place], [place] | | | | | | [address] | | | | + + + + + + + + | Specimen | + + | Blood | + + + + + + + | Performing | Address | City/State/Zipcode | Phone Number | | Organization | | | | + + + + + | [facility] | [address] | [place] [address] | [phone] | + + + + + POC Glucose (11/23/2019 8:39 PM PDT) + + + + + + | Component | Value | Ref Range | Performed | Pathologist | | | | | At | Signature | + + + + + + | Glucose, | 195 (H)Comment: Testing | 65 - 99 mg/dL | [facility] | | | POC | performed at [facility];[address] | | LABORATORY | | | | [address];[place] | | | | | | [address] | | | | + + + + + + + + | Specimen | + + | | + + + + + + + | Performing | Address | City/State/Zipcode | Phone Number | | Organization | | | | + + + + + | [facility] | [address] | [place] [address] | [phone] | + + + + + POC [...] | | | POC | performed at [facility];[address] | | LABORATORY | | | | [address];[place], [place] | | | | | | [address] | | | | + + + + + + + + | Specimen | + + | | + + + + + + + | Performing | Address | City/State/Zipcode | Phone Number | | Organization | | | | + + + + + | [facility] | [address] | [place] [address] | [phone] | + + + + + XR Chest AP Portable (11/23/2019 12:57 PM PDT) + + | Specimen | + + | | + + + + + | Impressions | Performed At | + + + | 1. Mild interstitial edema with small right-sided pleural effusion. | [facility] | | 2. Mild bibasilar subsegmental atelectasis. Signed | | | by: Elsa Mnoterroso, Rangel Sign Date/Time: 11/23/2019 1:19 PM | [...] | | | POC | performed at [facility];[address] | | LABORATORY | | | | [address];[place] | | | | | | [address] | | | | + + + + + + + + | Specimen | + + | | + + + + + + + | Performing | Address | City/State/Zipcode | Phone Number | | Organization | | | | + + + + + | [facility] | [address] | [place] [address] | [phone] | + + + + + Culture, [...] RESULT | Testing performed at | | [facility] | | | | [facility], [address] [facility] | | LABORATORY | | | | [place] | | | | | | [address]: Testing | | | | | | performed at [facility], [address] | | | | | | [facility] [address], | | | | | | [place] [address] | | | | + + + + + + + + | Specimen | + + | Body Fluid - Pus | | specimen (specimen) | + + + + + + + | Performing | Address | City/State/Zipcode | Phone Number | | Organization | | | | + + + + + | [facility] | [address] | [place] [address] | [phone] | + + + + + Medical [...] | | LABORATORY:Technical preparation was performed by [facility], | | | [address] [place] [address] (Cert Occupational Therapy Asst: | | | Sebas Tolliver D.O.; CLIA#: [id number]).Professional interpretation | | | was performed by [facility] | | | [place] [address] (Cert Occupational Therapy Asst: Leif | | | Hugh Layne; CLIA#: [id number]).6 Diagnostician: Hector Bryant | | | CT [...] | | |Technical preparation was performed by [facility], [address] [place] [address] (Cert Occupational Therapy Asst: Sebas Tolliver D.O.; CLIA#: [id number]). | | |[facility], [address] (Cert Occupational Therapy Asst: Leif Layne M.D.; CLIA#: [id number]).6 | | | | | |Diagnostician: Hector Bryant CT (ASCP) | | |Level Vial Inspector And Tester | | |Diagnostician: Leif Layne MD | [...] | | | clinician's orders. A 12 Lebanese locking pigtail catheter is placed. | | [...] the | | clinician's orders. A 12 Lebanese locking pigtail catheter is placed. | | [...] | | | | | performed at [facility] | | | | | | [address];[place], [place] | | | | | | [address] | | | | + + + + + + + + | Specimen | + + | Blood | + + + + + + + | Performing | Address | City/State/Zipcode | Phone Number | | Organization | | | | + + + + + | [facility] | [address] | [place] [address] | [phone] | + + + + + POC [...] | | | POC | performed at [facility];[address] | | LABORATORY | | | | [address];[place], [place] | | | | | | [address] | | | | + + + + + + + + | Specimen | + + | | + + + + + + + | Performing | Address | City/State/Zipcode | Phone Number | | Organization | | | | + + + + + | [facility] | [address] | [place] [address] | [phone] | + + + + + POC Glucose (11/22/2019 8:58 PM PDT) + + + + + + | Component | Value | Ref Range | Performed | Pathologist | | | | | At | Signature | + + + + + + | Glucose, | 174 (H)Comment: Testing | 65 - 99 mg/dL | [facility] | | | POC | performed at [facility];[address] | LAB[address] | | | [address];[place] | | | | | | [address] | | | | + + + + + + + + | Specimen | + + | | + + + + + + + | Performing | Address | City/State/Zipcode | Phone Number | | Organization | | | | + + + + + | [facility] | [address] | [place] [address] | [phone] | + + + + + POC Glucose (11/22/2019 4:13 PM PDT) + + + + + + | Component | Value | Ref Range | Performed | Pathologist | | | | | At | Signature | + + + + + + | Glucose, | 94Comment: Testing | 65 - 99 mg/dL | [facility] | | | POC | performed at [facility];[address] | | LABORATORY | | | | [address];[place], [place] | | | | | | [address] | | | | + + + + + + + + | Specimen | + + | | + + + + + + + | Performing | Address | City/State/Zipcode | Phone Number | | Organization | | | | + + + + + | [facility] | [address] | [place] [address] | [phone] | + + + + + POC [...] | | | POC | performed at [facility];[address] | | LABORATORY | | | | [address];[place] | | | | | | [address] | | | | + + + + + + + + | Specimen | + + | | + + + + + + + | Performing | Address | City/State/Zipcode | Phone Number | | Organization | | | | + + + + + | [facility] | [address] | [place] [address] | [phone] | + + + + + POC Glucose (11/22/2019 9:28 AM PDT) + + + + + + | Component | Value | Ref Range | Performed | Pathologist | | | | | At | Signature | + + + + + + | Glucose, | 92Comment: Testing | 65 - 99 mg/dL | [facility] | | | POC | performed at [facility];[address] | | LABORATORY | | | | [address];[place] | | | | | | [address] | | | | + + + + + + + + | Specimen | + + | | + + + + + + + | Performing | Address | City/State/Zipcode | Phone Number | | Organization | | | | + + + + + | [facility] | [address] | [place] [address] | [phone] | + + + + + Magnesium (11/22/2019 5:18 AM PDT) + + + + + + | Component | Value | Ref Range | Performed | Pathologist | | | | | At | Signature | + + + + + + | Magnesium | 1.3 (L)Comment: Testing | 1.7 - 2.4 mg/dL | [facility] | | | | performed at [facility];[address] | | LABORATORY | | | | [address];[place] | | | | | | [address] | | | | + + + + + + + + | Specimen | + + | Blood | + + + + + + + | Performing | Address | City/State/Zipcode | Phone Number | | Organization | | | | + + + + + | [facility] | [address] | [place] [address] | [phone] | + + + + + Protime [...] | | | | | performed at [facility];[address] | | | | | | Caroline Gomez;[place], [place] | | | | | | [address] | | | | + + + + + + + + | Specimen | + + | Blood | + + + + + + + | Performing | Address | City/State/Zipcode | Phone Number | | Organization | | | | + + + + + | [facility] | [address] | [place] [address] | [phone] | + + + + + CBC [...] LABORATORY | | | | performed at [facility] | | | | | | Caroline Gomez;[place], [place] | | | | | | [address] | | | | | | | | | | + + + + + + + + | Specimen | + + | Blood | + + + + + + + | Performing | Address | City/State/Zipcode | Phone Number | | Organization | | | | + + + + + | [facility] | [address] | [place] [address] | [phone] | + + + + + Comprehensive [...] 52 (L)Comment: GFR <60: | >60 | [facility] | | | GFR | CHRONIC [...] | | | | | | MDRD IDMD traceable | | | | | | equation.Testing | | | | | | performed at [facility] | | | | | | [facility];[place], [place] | | | | | | [address] | | | | + + + + + + + + | Specimen | + + | Blood | + + + + + + + | Performing | Address | City/State/Zipcode | Phone Number | | Organization | | | | + + + + + | [facility] | [address] | [place] [address] | [phone] | + + + + + Basic [...] | | | | | performed at [facility];[address] | | | | | | [facility];[place], [place] | | | | | | [address] | | | | + + + + + + + + | Specimen | + + | Blood | + + + + + + + | Performing | Address | City/State/Zipcode | Phone Number | | Organization | | | | + + + + + | [facility] | [address] [facility] | [place] [address] | [phone] | + + + + + documented [...] | | | | AC, NPO, Daytime 8943-4771 Use | | | | | | | NIGHT DOSE for doses scheduled: | | | | | | | HS, Nighttime 7593-8194 If | | | | | | [...] 10:31 | | | | | Starting [facility] 11/23/19 at 1027 | | AM [...] PM PDT | | | | | [facility] 11/23/19 at 1115, Please | | [...]
--- OUTSIDE RECORDS SUMMARY | ~2020-02-01 | XMS | Encounter Summary ---
Demographics + + + | Address | [address] | | | [place] [address] | + + + | Home Phone [...] Team Providers + +------+ + | Care Mixed Livestock Farmer Name | Role | Phone | [...] + + | 05/18/ | Telephone | [facility] | Oc Mooney, | Medication Refill | | 2017 | | [address] | MD [address] | | | | | [address] | [place] | | | | | [place], [place] | [address] | | | | | [address] | | | | | | [phone] | | | +--------+ + + + [...] this medication. elephone Encounter - Donna Jara, Commutator Presser - 05/18/2017 10:26 AM PSTCalled to speak [...]
--- OUTSIDE RECORDS SUMMARY | ~2020-02-01 | XMS | Encounter Summary ---
Demographics + + + | Address | [address] | | | [place] [address] | + + + | Home Phone [...] Team Providers + +------+ + | Care Special Education Para Professional Name | Role | Phone | + +------+ + | Roberth Gaspar MD | PCP | | + +------+ + Encounter Details +--------+ + + + + | Date | Type | Department | Care Team | Description | +--------+ + + + + | 09/12/ | Orders Only | [facility] | Cesar Hart MD | Essential | | 2020 | | NEPHROLOGY [place] | [address] | hypertension, benign | | | | [address] | [address] [place], [place] | (Primary Dx); CKD | | | | [address] | [address] | (chronic kidney | | | | [place], [place] | | disease), stage III | | | | [address] | | (HCC) | | | | [phone] | | | +--------+ + + + [...]
--- OUTSIDE RECORDS SUMMARY | ~2020-02-01 | XMS | Encounter Summary ---
Demographics + + + | Address | [address] | | | [place] [address] | + + + | Home Phone [...] Providers + +------+ + | Care Banking Services Officer Name | Role | Phone | + +------+ + | Roberth Gaspar MD | PCP | | + +------+ + Encounter Details +--------+ + + + + | Date | Type | Department | Care Team | Description | +--------+ + + + + | 09/12/ | Documentati | [facility] | Kolby, | | | 2019 | on | NEPHROLOGY [place] | [facility] | | | | | [address] | Jack Tamp Operator | | | | | [address] | | | | | | [place], [place] | | | | | | [address] | | | | | | [phone] | | | +--------+ + + + [...]
--- OUTSIDE RECORDS SUMMARY | ~2020-02-01 | XMS | Encounter Summary ---
Demographics + + + | Address | [address] | | | [place] [address] | + + + | Home Phone | | + + + | Preferred Language | Unknown | + + + | Marital Status | Legally | + + + | Amish Affiliation | Unknown | + + + [...] Team Providers + +------+ + | Care Grounds Maintenance Worker Name | Role | Phone | [...] PHYSIATRY [address] | MD [address] | | | | | [address] | [place], [place] | | | | | [place], [place] | [address] | | | | | [address] | | | | | | [phone] | | | +--------+ + + + [...]
--- OUTSIDE RECORDS SUMMARY | ~2020-02-01 | XMS | Encounter Summary ---
Demographics + + + | Address | [address] | | | [place] [address] | + + + | Home Phone [...] Team Providers + +------+ + | Care Entry Rep Name | Role | Phone | [...] + | 01/05/ | Office | [facility] | Oc Mooney, | Peripheral | | 2017 | Visit | [address] | [address] | polyneuropathy | | | | [address] | [place] | (Primary Dx); | | | | [place] | [address] | Neuropathic pain; | | | | [address] | | Vitamin B12 | | | | [phone] | | deficiency; Angular | | | [...] encounter Patient Instructions Patient Instructions Donna Jara, Identification And Records Commander - 01/05/2017 4:00 PM PDTBegin the consumption [...] their symptoms are worsening. Petra Dangelo indica naeme that she has increased numbness in the [...] has no apparent deficits with short or residential memory. The cranial nerves appear grossly intact. Subjective sensory change in both hands, unchanged compared to 10/06/2016. 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 Remainder of strength normal in major [...]
--- OUTSIDE RECORDS SUMMARY | ~2020-02-01 | XMS | Encounter Summary ---
Demographics + + + | Address | [address] | | | [place] [address] | + + + | Home Phone [...] Team Providers + +------+ + | Care Insole Cementer Name | Role | Phone | + +------+ + | Roberth Gaspar MD | PCP | | + +------+ + Encounter Details +--------+ + + + + | Date | Type | Department | Care Team | Description | +--------+ + + + + | 01/22/ | Orders Only | [facility] | Provider, | | | 2019 | | SYSTEM GENERIC OP | MD [address] | | | | | [address] | [address] | | | | | [address] [place], [place] | [place] [address] | | | | | [address] | | | | | | [phone] | | | +--------+ + + + [...]
--- OUTSIDE RECORDS SUMMARY | ~2020-02-01 | XMS | Encounter Summary ---
Demographics + + + | Address | [address] | | | [place] [address] | + + + | Home Phone [...] Team Providers + +------+ + | Care Grader Green Meat Name | Role | Phone | + [...] + + | 12/07/ | Telephone | [facility] | Leif Kenyon DO | Coordination Of Care | | 2020 | | INFECTIOUS DISEASE | [address] | | | | | [address] | [place] [address] | | | | | [place], [place] | [phone] | | | | | [address] | | | | | | [phone] | | | +--------+ + + + [...] Miscellaneous Notes Telephone Encounter - Kelsey Martínez Voice Engineer - 12/08/2019 10:40 AM PDTPatient inf [...]
--- OUTSIDE RECORDS SUMMARY | ~2020-02-01 | XMS | Encounter Summary ---
Demographics + + + | Address | [address] | | | [place] [address] | + + + | Home Phone | | + + + | Preferred Language | Unknown | + + + | Marital Status | Legally | + + + | Voodoo Affiliation | Unknown | + + + | Race | Unknown | + + + | Ethnic Group | Unknown | + + + Author + + + | Author | [facility] | | | and [place] | + + + | Organization | [facility] | | | [...] Providers + +------+ + | Care Patient Access Specialist Name | Role | Phone | + +------+ + | Roberth Gaspar MD | PCP | | + +------+ + Encounter Details +--------+ + + + + | Date | Type | Department | Care Team | Description | +--------+ + + + + | 09/12/ | Orders Only | [facility] | Cesar Hart MD | Essential | | 2020 | | NEPHROLOGY [place] | [address] | hypertension, benign | | | | [address] | [address] [place], [place] | (Primary Dx); CKD | | | | [address] | [address] | (chronic kidney | | | | [place], [place] | | disease), stage III | | | | [address] | | (HCC) | | | | [phone] | | | +--------+ + + + [...]
--- OUTSIDE RECORDS SUMMARY | ~2020-02-01 | XMS | Encounter Summary ---
Demographics + + + | Address | [address] | | | [place] [address] | + + + | Home Phone [...] Team Providers + +------+ + | Care Income Tax Return Preparer Name | Role | Phone | + [...] + + | 05/18/ | Telephone | [facility] | Oc Mooney, | Medication Refill | | 2017 | | [address] | MD [address] | | | | | [address] | [place] | | | | | [place], [place] | [address] | | | | | [address] | | | | | | [phone] | | | +--------+ + + + [...] this medication. elephone Encounter - Donna Jara, Metal Rolling Mill Operator - 05/18/2017 10:26 AM PSTCalled to speak [...]
--- OUTSIDE RECORDS SUMMARY | ~2020-02-01 | XMS | Encounter Summary ---
Demographics + + + | Address | [address] | | | [place] [address] | + + + | Home Phone [...] Team Providers + +------+ + | Care Environmental Studies Department Chair Name | Role | Phone | + [...] + + | 11/11/ | Telephone | [facility] | Oc Mooney, | Lab Results | | 2017 | | [address]YSI[address] | MD [address] | | | | | [address] | [place] | | | | | [place] | [address] | | | | | [address] | | | | | | [phone] | | | +--------+ + + + [...] Miscellaneous Notes Telephone Encounter - Donna Jara, Radiation Oncology Manager - 11/11/2016 2:01 [address] to [...]
--- OUTSIDE RECORDS SUMMARY | ~2020-02-01 | XMS | Encounter Summary ---
Demographics + + + | Address | [address] | | | [place] [address] | + + + | Home Phone [...] Team Providers + +------+ + | Care Corn Husk Baler Name | Role | Phone | + [...] PHYSIATRY [address] | MD [address] | | | | | [address] | [place] | | | | | [place] | [id number] | | | | | [address] | | | | | | [phone] | | | +--------+--------+ + + + [...] this refill. elephone Encounter - Donna Jara, Video Poker Floorman - 03/03/2017 5:05 PM PDTCalled to speak to Petra Dangelo regarding medication refill request for medication gabapentin. Is Petra Dangelo currently taking 1 capsule by mouth three times daily? Left a voicemail message to call our office back. Electronically si gned by Donna Jara Video Poker Floorman at 03/03/2017 5:07 PM PDTdocumented in this e ncounter Plan of Treatment Not on filedocumented as of this encounter Visit Diagnoses Not on filedocumented in this encounter"
--- OUTSIDE RECORDS SUMMARY | ~2020-02-01 | XMS | Encounter Summary ---
Demographics + + + | Address | [address] | | | [place] [address] | + + + | Home Phone [...] Team Providers + +------+ + | Care High School Assistant Football Coach Name | Role | Phone | + [...] PHYSIATRY [address] | MD [address] | | | | | [address] | [place], [place] | | | | | [place], [place] | [address] | | | | | [address] | | | | | | [phone] | | | +--------+ + + + [...]
--- OUTSIDE RECORDS SUMMARY | ~2020-02-01 | XMS | Encounter Summary ---
Demographics + + + | Address | [address] | | | [place] [address] | + + + | Home Phone [...] | + + +---------+ + | Milana Kboe | ECON | Unknown | | + + +---------+ + | Simone Holland | ECON | Unknown | | + + +---------+ + Care Team Providers + +------+ + | Care Head Wood Grinder Name | Role | Phone | + [...] | hand | [address] | | | | n | numbness | [address] | [place], | | | | | Hand | [place], | [place] [address] | | | | | weakness | [place] [address] | Phone: | | | | | History of | Phone: | [phone] | | | | | diabetes | [phone] | Fax: | | | | | mellitus | Fax: | [phone] | | | | | Procedures | [phone] | | | | | | DOS [...] 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[address] | [place], | | | | | degeneration | [address] | [place] [address] | | | | | , lumbar | [place], | Phone: | | | | | region | [place] | [phone] | | | | | Neuropathy | [address] | Fax: | | | | | | Phone: | [phone] | | | | | | [phone] | | | | | | | Fax: | | | | | | | [phone] | | +--------+--------+ + + + + Encounter Details +--------+---------+ + + + | Date | Type | Department | Care Team | Description | +--------+---------+ + + + | 05/04/ | Office | [facility] | Oc Mooney, | Bilateral hand | | 2015 | Visit | [address] | MD [address] | numbness (Primary | | | | [address] | [place] | Dx); Hand weakness; | | | | [place] | [address] | History of diabetes | | | | [address] | | mellitus; Brisk deep | | | | [phone] | | tendon reflexes | +--------+---------+ + [...] denies a history of frequent alcohol consumption. ePtra Dangelo reports that she has never had [...] finger abduction bilaterally. There is 4/5 hand scalemaker bilaterally Reflexes: 3+ brisk and symmetric over [...]
--- OUTSIDE RECORDS SUMMARY | ~2020-02-01 | XMS | Encounter Summary ---
Demographics + + + | Address | [address] | | | [place] [address] | + + + | Home Phone [...] Team Providers + +------+ + | Care I O Psychologist Name | Role | Phone | + [...] PHYSIATRY [address] | MD [address] | | | | | [address] | [place] | | | | | [place] | [address] | | | | | [address] | | | | | | [phone] | | | +--------+--------+ + + + [...] this refill. elephone Encounter - Donna Jara, Underwriting Analyst - 03/03/2017 5:05 PM PDTCalled to speak to Petra Dangelo regarding medication refill request for medication gabapentin. Is Petra Dangelo currently taking 1 capsule by mouth three times daily? Left a voicemail message to call our office back. Electronically si gned by Donna Jara Underwriting Analyst at 03/03/2017 5:07 PM PDTdocumented in this e ncounter Plan of Treatment Not on filedocumented as of this encounter Visit Diagnoses Not on filedocumented in this encounter"
--- OUTSIDE RECORDS SUMMARY | ~2020-02-01 | XMS | Encounter Summary ---
Demographics + + + | Address | [address] | | | [place] [address] | + + + | Home Phone | | + + + | Preferred Language | Unknown | + + + | Marital Status | Legally | + + + | Gnosticism Affiliation | Unknown | + + + | Race | Unknown | + + + | Ethnic Group | Unknown | + + + Author + + + | Author | [facility] | | | and [place] | + + + | Organization | [facility] | | [...] Team Providers + +------+ + | Care Associate Programmer Analyst Name | Role | Phone | [...] + + | 12/25/ | Telephone | [facility] | Carey Martínez, | Other (F/U Appt ) | | 2020 | | INFECTIOUS DISEASE | Central Sterile Supply Technician | | | | | [address] [facility] | | | | | | [place], [place] | | | | | | [address] | | | | | | [phone] | | | +--------+ + + + [...] - 01/04/2020 9:39 AM PDT01/04/2020: Shalini from [facility] stated she will look into [...] at office. Callback number was provided in message,[phone] option 5. I will wait for callback. Vijay ne Encounter - Carey Martínez Central Sterile Supply Technician - 12/26/2019 10:04 AM PDT12/26/2019: I attempted to get a hold of patient. I left message requesting for patient to return my ca ll at office. Callback number was provided in message,[phone] option 5. I will wait for callback. Isabelle ahumada in this encounter Plan of Treatment Not on filedocumented as of this encounter Visit Diagnoses Not on filedocumented in this encounter"
--- OUTSIDE RECORDS SUMMARY | ~2020-02-01 | XMS | Encounter Summary ---
Demographics + + + | Address | [address] | | | [place] [address] | + + + | Home Phone [...] Team Providers + +------+ + | Care Chimney Mechanic Name | Role | Phone | + +------+ + | Roberth Gaspar MD | PCP | | + +------+ + Encounter Details +--------+ + + + + | Date | Type | Department | Care Team | Description | +--------+ + + + + | 10/27/ | Orders Only | [facility] | Cesar Hart MD | | | 2018 | | NEPHROLOGY [place] | [address] | | | | | [address] | [address] [place], [place] | | | | | [address] [place], [place] | [address] | | | | | [address] | | | | | | [phone] | | | +--------+ + + + [...]
--- OUTSIDE RECORDS SUMMARY | ~2020-02-01 | XMS | Encounter Summary ---
Demographics + + + | Address | [address] | | | [place] [address] | + + + | Home Phone | | + + + | Preferred Language | Unknown | + + + | Marital Status | Legally | + + + | Episcopalian Affiliation | Unknown | + + + | Race | Unknown | + + + | Ethnic Group | Unknown | + + + Author + + + | Author | [facility] | | | and [place] | + + + | Organization | [facility] | | [...] Team Providers + +------+ + | Care Gettering Operator Name | Role | Phone | [...] + + | 12/07/ | Telephone | [facility] | Leif Kenyon DO | Coordination Of Care | | 2020 | | INFECTIOUS DISEASE | [address] | | | | | [address] | [place] [address] | | | | | [place], [place] | [phone] | | | | | [address] | | | | | | [phone] | | | +--------+ + + + [...] Miscellaneous Notes Telephone Encounter - Kelsey Martínez Decision Analyst - 12/08/2019 10:40 AM PDTPatient inf ormed. [...]
--- OUTSIDE RECORDS SUMMARY | ~2020-02-01 | XMS | Encounter Summary ---
Demographics + + + | Address | [address] | | | [place] [address] | + + + | Home Phone [...] Author | [facility] | | | and [...] Team Providers + +------+ + | Care District Sales Manager Name | Role | Phone | + +------+ + | Roberth Gaspar MD | PCP | | + +------+ + Encounter Details +--------+ + + + + | Date | Type | Department | Care Team | Description | +--------+ + + + + | 10/27/ | Orders Only | [facility] | Cesar Hart MD | | | 2018 | | NEPHROLOGY [place] | [address] | | | | | [address] | [address] [place], [place] | | | | | [address] [place], [place] | [address] | | | | | [address] | | | | | | [phone] | | | +--------+ + + + [...]
--- OUTSIDE RECORDS SUMMARY | ~2020-02-01 | XMS | Clinical Summary ---
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, without | | | | | | long-term current | | | | | | use of insulin | | | | | | ([facility]); Pulmonary | | | | | | nodules; | | | | | | Thrombocytosis | | | | | | ([facility]); Loculated | | | | | | pleural effusion; | | | | | | EVA (acute kidney | | | | | | injury) ([facility]); | | | | | | Sepsis, due to | | | | | | unspecified | | | | | | organism, | | | | | | unspecified whether | | | | | | acute organ | | | | | | dysfunction present | | | | | | ([facility]); Chronic | | | | | | obstructive | | | | | | pulmonary disease, | | | | | | unspecified COPD | | | | | | type ([facility]); Weakness | | | [...] + + + | VANCOMYCIN, TROUGH | ASLVATORE | 11/23/2019 | | Results for this [...] | | | POC | performed at [facility];[address] | | LABORATORY | | | | [address];[place], [place] | | | | | | [address] | | | | + + + + + + + + | Specimen | + + | | + + + + + + + | Performing | Address | City/State/Zipcode | Phone Number | | Organization | | | | + + + + + | [facility] | [address] | [place] [address] | [phone] | + + + + + XR [...] LABORATORY | | | | performed at [facility];[address] | | | | | [address];[place] | | | | | | [address] | | | | | | | [...] | [address] | [place] [address] | [phone] | + + + + + XR [...] | | | Serum | performed at [facility];[address] | mmol/L | LABORATORY | | | | [address];[place], [place] | | | | | | [address] | | | | + + + + + + + + | Specimen | + + | Blood | + + + + + + + | Performing | Address | City/State/Zipcode | Phone Number | | Organization | | | | + + + + + | [facility] | [address] | [place] [address] | [phone] | + + + + + Basic [...] | | | | | performed at [facility], [address] | | | | | | [facility], | | | | | | [place] [address] | | | | + + + + + + + + | Specimen | + + | Blood | + + + + + + + | Performing | Address | City/State/Zipcode | Phone Number | | Organization | | | | + + + + + | [facility] | [address] | [place] [address] | [phone] | + + + + + DIAGNOSTIC [...] | | | | | performed at [facility];[address] | | | [address];[place], [place] | | | | | | [address] | | | | + + + + + + + + | Specimen | + + | Blood | + + + + + + + | Performing | Address | City/State/Zipcode | Phone Number | | Organization | | | | + + + + + | [facility] | [address] | [place] [address] | [phone] | + + + + + Culture, [...] [place] | | | | | | [id number]: Testing | | | | | | performed at [facility], [address] | | | | | | [address], | | | | | | [place] [address] | | | | + + + + + + + + | Specimen | + + | Body Fluid - Pus | | specimen (specimen) | + + + + + + + | Performing | Address | City/State/Zipcode | Phone Number | | Organization | | | | + + + + + | [facility] | [address] | [place] [address] | [phone] | + + + + + Medical [...] | | LABORATORY:Technical preparation was performed by [facility], | | | [address] [place] [address] (Waterproofing Machine Operator: | | | Sebas Tolliver D.O.; CLIA#: [id number]).Professional interpretation | | | was performed by [facility], [facility], [address] | | | [place] [address] (Waterproofing Machine Operator: Leif | | | Hugh Layne; CLIA#: [id number]).6 Diagnostician: Hector Bryant | | | CT ([facility])CytotechnologistDiagnostician: Leif Layne | | | MDPathologistElectronically Signed 11/24/2019 | | | | | |DESCRIPTION: | | |The preparations contain mesothelial cells, rare inflammatory cells, and acellular proteina ceous material. Atypical cytologic findings are not encountered. | | | | | |SPECIMEN ADEQUACY: | | |Satisfactory for Evaluation | | | | | |PERFORMING LABORATORY: | | |Technical preparation was performed by [facility], [address] [place] [address] (Waterproofing Machine Operator: Sebas Tolliver D.O.; CLIA#: [id number]). | | |Professional interpretation was performed by [facility], [facility], [address] [place] [address] (Waterproofing Machine Operator: Leif Layne M.D.; CLIA#: [id number]).6 | | | | | |Diagnostician: Hector Bryant CT ([facility]) | | |Sponsorship Manager | | |Diagnostician: Leif Layne MD [...] | | | clinician's orders. A 12 Thai locking pigtail catheter is placed. | | [...] the | | clinician's orders. A 12 Thai locking pigtail catheter is placed. | | [...] | INR | 1.2Comment: REFERENCE | | [facility] | | | | RANGE:0.9 - 1.2 [...] | | | | | performed at [facility];[address] | | | | | | [address];[place] | | | | | | [address] | | | | + + + + + + + + | Specimen | + + | Blood | + + + + + + + | Performing | Address | City/State/Zipcode | Phone Number | | Organization | | | | + + + + + | [facility] | [address] | [place] [address] | [phone] | + + + + + Magnesium (11/22/2019 5:18 AM PDT) + + + + + + | Component | Value | Ref Range | Performed | Pathologist | | | | | At | Signature | + + + + + + | Magnesium | 1.3 (L)Comment: Testing | 1.7 - 2.4 mg/dL | [facility] | | | | performed at [facility];[address] | | LABORATORY | | | | [address];[place] | | | | | | [address] | | | | + + + + + + + + | Specimen | + + | Blood | + + + + + + + | Performing | Address | City/State/Zipcode | Phone Number | | Organization | | | | + + + + + | [facility] | [address] | [place] [address] | [phone] | + + + + + from [...] | [employer] | [employer] | [id number] | 06/28/19 | [phone] | | Medica | | MEDICAID HMO | HEALTH | | 13-Pre | 1 | | id | | | MDCD | | sent | | | | | | HMO [place] | | | | | | + +--------+ +--------+ +---------+--------+ | [employer] | [employer] | [id number] | | [phone] | | Medica | | MEDICAID HMO [...] charlie | | | 2 (Home) | [address] | + +--------+ +--------+ + + | Phoenix Dangelo M | Person | Self | [birth year] | [address] | | | al/Fam | | 1964 | [address] | [place], [place] | | | charlie | | | 2 (Home) | [address] | + +--------+ +--------+ + + Advance Directives + + + + + | Type | Date Recorded | Patient | Explanation | | | | Deckhand Clam Dredge | | + + + + + | Power of | | | | | Outboard Motorboat Operator | | | | + + [...]
[~2020-02-01 11:32] MED LIST changes: +CRUTCH1 EACH; +MORPHINE SULFAT15 MG PO; -WIXELA 500-501 EACH INH
--- OUTSIDE RECORDS SUMMARY | 2020-02-01 11:36 | XMS ---
PreManage Notification: PHOENIX MISHRA Security Client Application Support Engineer Events No recent Security Events currently on file CRITERIA MET - Group Notification - [facility] - Has Care Guidelines - PDMP - [facility] - 2 Visits in 30 Days CARE PROVIDERS JOANN RODRIGUEZ Internal Medicine: Geriatric Medicine 12/20/2019-Current PHONE: [phone] [facility] 08/05/2018-Current CELINA Graham PHONE: [phone] Saleem has no Care Guidelines for this patient. Care History Medical/Surgical 02/23/2019 [facility] CAUTION PRESCRIBING NARCOTICS - PATIENT IS UNDER PAIN PLAN WITH PCP DR CELINA ROJAS IF PATIENT NEEDS PAIN MED ACUTELY - GIVE 2-3 DAYS WORTH RX, THEN PATIENT IS TO CONTACT PCP FOR FURTHER MEDS.\T\nbsp; DO NOT TELL HER TO TAKE MORE OF WHAT SHE IS CURRENTLY ON.\T\nbsp; THIS WAS REQUESTED BY PCP DR ROJAS. E.D. VISIT COUNT (12 MO.) 6 [facility] TOTAL 6 NOTE: Visits indicate total known visits. ED/UCC VISIT TRACKING (12 MO.) 02/01/2020 11:32 [facility] [place] TYPE: Emergency COMPLAINT: - FOOT INJURY 01/21/2020 07:58 [facility] [place] TYPE: Emergency COMPLAINT: - ANKLE PAIN DIAGNOSES: - long-term (current) use of oral hypoglycemic drugs - Allergy status to penicillin - Type 2 diabetes mellitus with diabetic neuropathy, unspecifie - Displaced bimalleolar fracture of left lower leg, initial enc - Allergy to seafood - Personal history of nicotine dependence - Pain in right ankle and joints of right foot - Other allergy status, other than to drugs and biological subs - Unspecified asthma, uncomplicated - Exposure to other specified factors, initial encounter - Essential (primary) hypertension - Other fpc (current) drug therapy - Allergy status to serum and vaccine status - Hypothyroidism, unspecified 12/16/2019 18:47 [facility] [place] TYPE: Emergency COMPLAINT: - SOB DIAGNOSES: - Hypothyroidism, unspecified - Other allergy status, other than to drugs and biological subs - Allergy to seafood - Type 2 diabetes mellitus without complications - Allergy status to serum and vaccine status - Personal history of nicotine dependence - grass farmer (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) 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 of 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 hypoglycemic drugs - Essential (primary) hypertension - Allergy status to penicillin - Shortness of breath - Other fpc (current) drug therapy - Chronic obstructive pulmonary disease with (acute) exacerbati 11/17/2019 20:03 [facility] TYPE: Emergency COMPLAINT: - MULTIPLE COMPLAINTS 11/11/2019 11:21 [facility] TYPE: Emergency COMPLAINT: - BACK PAIN, SOB 02/19/2019 18:39 [facility] TYPE: Emergency COMPLAINT: - FOOT INJ DIAGNOSES: - Sprain of unspecified ligament of right ankle, initial encoun - Hypothyroidism, unspecified - grass farmer (current) use of oral hypoglycemic drugs - Allergy status to penicillin - Unspecified asthma, uncomplicated - Essential (primary) hypertension - Bee allergy status - Overexertion from prolonged static or awkward postures, initi - Pain in right ankle and joints of right foot - Other copping machine operator (current) drug therapy - Allergy status to serum and vaccine status - Blister (nonthermal), right foot, initial encounter - Type 2 diabetes mellitus without complications INPATIENT VISIT TRACKING (12 MO.) [facility] DIAGNOSES: - Essential (primary) [...] unspecified - Chronic pain syndrome - Other fpc (current) drug therapy - Severe sepsis without septic shock - Tachycardia, unspecified - Other specified sepsis - Anemia, unspecified - Body mass index (BMI) 45.0-49.9, adult - Allergy status to penicillin - Urinary tract infection, site not specified - Hypothyroidism, unspecified - Hyperlipidemia, unspecified - Hypomagnesemia - Unspecified asthma, uncomplicated - long-term (current) use of systemic steroids - Sepsis due to Escherichia coli [E. coli] - Sepsis due to Methicillin resistant Staphylococcus aureus - Unspecified abdominal pain - Type 2 diabetes mellitus without complications - Contact with and (suspected) exposure to other viral communic - Pneumonia, unspecified organism - Acute kidney failure, unspecified - Allergy status to serum and vaccine status - grass farmer (current) use of opiate analgesic - Pneumonia due to Methicillin resistant Staphylococcus aureus - grass farmer (current) use of oral hypoglycemic drugs - Gastro-esophageal reflux disease without esophagitis [email or web address]
[2020-02-01] MEDS ORDERED: LEVOXYL200 MCG PO (11:51)
[2020-02-01] MEDS ORDERED: WIXELA 100-501 EACH INH (11:53)
--- NOTE | 2020-02-01 20:07 | NUR ---
pt ARRIVED TO FLOOR 1930 RESTING IN BED. REPORTED 9/10 PAIN, PRN PAIN MEDICATION GIVEN WITH SCHEDULED MED (SEE MAR). ALVAREZ PLACED 125 OF CONCENTRATED URINE OUT. LEFT LEG ASSESSED. BROWN SKIN WITH SOME BREAKDOWN AROUND THE ANKLE. pt ABLE TO LIFT BY SELF. CMS INTACT. BOOT PLACED. ELEVATED ON PILLOW. INDIRA MENDEZ IN ROOM FINISHING ADMIT. CALL LIGHT WITHIN REACH.
--- NOTE | 2020-02-01 20:20 | NUR ---
ASSISTED PRIMARY RN PANCHO WHILE SHE PLACED ALVAREZ CATH AND PUT BOOT ON PT. ADMISSION HX IS NOW COMPLETE, PT HAS CALL LIGHT CLOSE AND IS WATCHING TV. PT REQUESTED FOOD AND DENIES FURTHER NEEDS.
--- NOTE | 2020-02-01 21:19 | NUR ---
ROUNDED ON pt. pt REPORTED 8/10 PAIN, REQUESTED PRN PAIN MEDS, GIVEN (SEE MAR). PROVIDED FRESH WATER. NO FURTHER REQUESTS AT THIS TIME. CALL LIGHT WITHIN REACH.
--- NOTE | 2020-02-01 22:12 | NUR ---
ROUNDED ON pt. PROVIDED WITH MORE WATER. NO FURTHER REQUESTS AT THIS TIME. REPORTED HER PAIN IS "OKAY" CALL LIGHT WITHIN REACH.
--- NOTE | 2020-02-01 22:50 | NUR ---
CALL LIGHT ON. pt REQUESTED PRN PAIN MEDS FO 03/07 PAIN, SEE MAR. NO FURTHER REQUESTS AT THIS TIME. CALL LIGHT WITHIN REACH.
--- NOTE | 2020-02-01 23:50 | NUR ---
pt REPORTED PAIN IS "OKAY" RIGHT NOW WILL CALL IF SHE WOULD LIKE PAIN MEDICATION.
--- NOTE | 2020-02-02 00:42 | NUR ---
CALL LIGHT ON. pt REQUESTED PRN PAIN MEDS FOR 10/10 PAIN. REPORTED THAT SHE HAD JUST "BUMPED" HER LEG. BOOSTED IN BED 2PA. PILLOW UNDER LEFT LEG FOR COMFORT. NPO AT THIS TIME. PAIN MED GIVEN (SEE MAR). NO FURTHER REQUESTS AT THIS TIME. CALL LIGHT WITHIN REACH.
--- NOTE | 2020-02-02 02:12 | NUR ---
pt REPORTED 8/10 PAIN, PRN PAIN MEDICATION GIVEN (SEE MAR). ASSESSMENT DONE. NO CHANGES. VITALS AND I&O RECORDED. CALL LIGHT WITHIN REACH.
--- NOTE | 2020-02-02 03:08 | NUR ---
ROUNDED ON pt. PAIN "OKAY" AT THIS TIME. CALL LIGHT WITHIN REACH.
--- NOTE | 2020-02-02 04:14 | NUR ---
CALL LIGHT ON. pt REQUESTED PRN PAIN MEDS FOR 8/10 PAIN, GIVEN (SEE MAR). CALL LIGHT WITHIN REACH.
--- NOTE | 2020-02-02 05:58 | NUR ---
CALLED FOR UPDATE. NO NEW ORDERS AT THIS TIME.
--- NOTE | 2020-02-02 06:00 | NUR ---
ROUNDED ON pt. RESTING WITH EYES CLOSED, RESPIRATIONS REGULAR AND UNLABORED. CALL LIGHT WITHIN REACH.
--- NOTE | 2020-02-02 06:24 | NUR ---
ED BRIDGE ORDERS . DR DOLAN CALLED. NEW ORDERS ENTERED.
--- NOTE | 2020-02-02 06:55 | NUR ---
pt REPORTED 8/10 PAIN, PRN GIVEN (SEE MAR). SURGICAL WIPE DOWN DONE, NEW LINENS. LR ON STRAIGHT TUBING. pt UPDATED WITH PLAN OF CARE. NO FURTHER REQUESTS AT THIS TIME. CALL LIGHT WITHIN REACH.
--- NOTE | 2020-02-02 08:08 | NUR ---
PT IS RESTING WITH L LEG ELEVATED, GOOD CMS TO TOES, BOOT ON. JEWLEY REMOVED, PREPROCEDURE CHECK LIST COMPLETE, EKG DONE, WAITING FOR OR TEAM. PT DENIES FURTHER NEEDS. NPO SINCE MIDNIGHT.
--- NOTE | 2020-02-02 08:28 | NUR ---
PATIENT AWAKE IN BED, DENIES ANY NEEDS. CALL LIGHT IN REACH
[2020-02-02] MEDS ORDERED: BASAGLAR K100 UNIT/1 SUB-Q (09:05)
[2020-02-02] MEDS ORDERED: LO-DOSE ASPIRIN81 MG PO (09:06)
[2020-02-02] MEDS ORDERED: METOPROLOL TART25 MG PO (09:07)
[2020-02-02] MEDS ORDERED: ATORVASTATIN CA10 MG PO (09:15)
[2020-02-02] MEDS ORDERED: WIXELA 500-501 EACH INH (09:20)
--- NOTE | 2020-02-02 11:56 | NUR ---
Attempted to speak with pt, she remains in surgery. Notified by staff, Dr. Neves plans for 3 night IP stay and admit to SNF next week. Left message with [facility] and [facility] requesting bed space availability.
--- NOTE | 2020-02-02 13:09 | NUR ---
02/02/20 1309 TrentonYina M 1218- PT TO PACU IN SUPINE POSITION. DROWSY OPENS EYES TO VOICE. STATES SHE IS SHORT OF BREATH AND IS ANXIOUS TO SIT UP. SPO2 88-90%. DRIVEWAY SEALER AT BEDSIDE. 1220- IV FLUIDS RUNNING. BP STABLE. HOB ELEVATED. PT REPORTS FEELING LESS SHORT OF BREATH. SPO2 >90% ON 10 L O2 VIA NC. DRIVEWAY SEALER TO GIVE NEB TX AND IV LASIX. BREATHING EASY AND UNLABORED. SPO2 >95% ON 10 L O2. LUNG SOUNDS COURSE. 1225- NEB TREATMENT COMPLETE. SP02 100%. PT NO LONGER REPORTS SHORTNESS OF BREATH. O2 TITRATED DOWN TO ROOM AIR. WILL CONTINUE TO MONITOR. 1230- PT DENIES PAIN OR DIZZINESS. BREATHING EASY AND UNLABORED. SPO2 88-92%. O2 VIA NC APPLIED. 1240- VSS. PT BREATHING EASILY AND UNLABORED. SPO2 >95% ON 2 L O2 VIA NC. DENIES PAIN NAUSEA OR DIZZINESS. 1247- PT REPORTING NAUSEA. PRN MEDS UTILIZED. BREATHING EASY AND UNLABORED. SPO2 >95% ON 2 L O2 VIA NC. 1300- BP 95/56 MAP 67. PT EDUCATED ON THE EFFECTS OF SPINAL ANESTHESIA AND ENCOURAGED TO LOWER HOB TO 30 DEGREES. PT APPREHENSIVE AT LOWERING HOB WITH FEAR OF SOB. PT ENCOURAGED TO REST, CLOSE EYES AND TAKE DEEP BREATHS. 1308- PT RESTING COMFORTABLY WITH EYES CLOSED. SPO2 >95% ON 2 L O2 VIA NC. VSS. 2024-
--- NOTE | 2020-02-02 13:43 | NUR ---
PT RETURNED TO ROOM AT THIS TIME, AWAKE , ORIENTED, DENIES ANY PAIN, TOES WARM WITH GOOD SENSATION, EXTERNAL FIXATION DEVICE IN PLACE WITH GAUZE WRAP, SMALL AMOUNT OF RED DRAINAGE ON DRSG.PLACED ON CONT. PULSE OXIMETER, O2 AT 2L/NC AT THIS TIME. PT FEELS SLEEPY, DENIES NAUSEA AT THIS TIME. ALVAREZ CATH IS PATENT AND SECURE. CALL LIGHT IN EASY REACH.
--- NOTE | 2020-02-02 14:00 | NUR ---
Spoke with Petra. She is awake, c/o cold and starting to have pain in LE. Rn notified. Phone ringing continuously. She states its her brother and she doesn't want to visit at this time. Phone unplugged. Discussed SNF and she is aware she will need to be placed. She agrees to [facility] and updated I sent her chart after speaking with Dr. Neves. Discussed as she has [employer] they will only cover the first 20 days. She states she doesn't own a home and lives with her dad. She is unemployed. Discussed [employer] and informed I will call for assistance through the worker of the day. Also discussed with Petra, visitors are not allowed from her home due to the Bed bug issues. No personal belongings should be delivered. She states she is aware of this. They have been working on getting rid of the bed bugs for sometime. She states it is not a fast process.
--- NOTE | 2020-02-02 14:04 | NUR ---
After speaking with Dr. Neves, will fax chart to [facility] for pt to have rehab. Pt is a OHP and does not qualify for [facility] which is in [facility].
--- NOTE | 2020-02-02 14:33 | NUR ---
Received call from Pina at [facility] and she states as pt has OHP, she will qualify for 20 days of payment. She will them be responsible for full amount of SNF coverage. Called and spoke with Shivani POWELL, worker of the day. She feels pt may be eligible for LTC through [employer]. She will need to speak with Petra. In and spoke with Petra and updated to my calls. She states she is aware she made need 8 weeks in a SNF as Dr. Neves spoke with her about this. She agrees to speak with Shivani. Was able to contact Shivani at 3:15p and phone was given to Petra to complete assessment.
--- NOTE | 2020-02-02 15:00 | NUR ---
SPOKE WITH SERENA- NURSING CABLE MAINTAINER ABOUT ORDERS NEEDED FROM ANESTHESIA FOR ONGOING PAIN CONTROL. PT STATES SHE IS BEGINNING TO HAVE SOME PAIN IN L LEG. SERENA CALLED MYRIAM PEREZ AND HE WILL HAVE BARRERA COME IN AND REBLOCK LEG.
--- NOTE | 2020-02-02 15:01 | NUR ---
CALL PLACED TO DR DOLAN FOR DIET, UPDATE GIVEN.
--- NOTE | 2020-02-02 15:12 | EKG ---
[facility] [address] [facility] [place], [place] [address] Signed Normal sinus rhythm Normal ECG When compared with ECG of 16-DEC-2019 18:53, No significant change was found Confirmed by FINN CROWELL MD ([id number]) on 02/02/2020 3:11:56 PM Electronically Signed By: FINN CROWELL MD 02/02/20 1512 PATIENT NAME: PHOENIX MISHRA Electrocardiogram DATE OF : 69 PHYSICIAN: FINN CROWELL MD REPORT #: [id number] REPORT IS CONFIDENTIAL AND NOT TO BE RELEASED WITHOUT AUTHORIZATION
--- NOTE | 2020-02-02 15:37 | NUR ---
Recieved call from Shivani at [facility]. She completed form by phone with Petra. She will fax to me and pt needs to review and sign. I will fax back to Shivani when completed. Christina [facility]astel[facility] will interview patient on Wednesday or Wednesday of next week here at the hospital. They state she needs to be seen at the hospital as they are unable to complete assessment in the [facility] due to covid. Informed I will update Dr. Neves.
--- NOTE | 2020-02-02 16:01 | NUR ---
Pt reviewed form from [employer] and signed. Faxed to [phone] [facility].
--- NOTE | 2020-02-02 17:00 | NUR ---
[facility]PE[facility] TO R LEG. PT CONT. TO C/O SHARP PAIN IN LEG AND SPASMS. BARRERA RETURNED TO FLOOR AFTER 15 MIN TO CHECK ON PT AND SUGGESTS I CALL DR DOLAN FOR CONTINUED DISCOMFORT. CALL PLACED TO DR DOLAN AND I RECIEVED ORDERS TO START OXYCODONE, TRAZADONE, TORADOL X1 NOW, AND GABAPENTIN NOW. ORDERS ENTERED AND VERIFIED BY HARRISON JACOBSON.
--- NOTE | 2020-02-02 17:33 | NUR ---
JACQUES CALLED FOR ASSISTANCE EATING DINNER. VITALS AND I&OS CHARTED. CALL LIGHT IN REACH
--- NOTE | 2020-02-02 17:51 | NUR ---
PT IS EATING DINNER, MEDICATIONS TAKEN ORDERED, LAUGHING AND JOKING WITH STAFF AT THIS TIME, CONT. TO RATE PAIN 9/10. CMS INTACT TO FOOT AND TOES, NO CHANGE IN RED SHADOWING AROUN PINN SITES. GOOD POSITION AND ALIGNMENT OF LEG. BLOOD SUGAR IS 200. TAKING PO FLUIDS WELL, INCENTIVE SPIROMETER ENCOURAGED, REMOVED MULTIPLE WARM BLANKETS FROM PT, FOOT CRADLE ON BED TO SUPPORT BLANKETS OFF LEG. CALL LIGHT IN EASY REACH.
--- NOTE | 2020-02-02 18:49 | NUR ---
3 PERSON ASSIST TO REPOSITION IN BED, POSITIONED LEG AGAIN TO KEEP ALL PRESSURE OFF PIN SITES, PT KEEPS PULLING HERSELF TOWARDS R SIDE AND TIPS LEG OVER. ASKED PT TO CALL FOR ASSISTANCE TO REPOSITION. CONT. TO RATE PAIN 9/10, ASKING FOR TESSA. GAVE DIET SPRITE INSTEAD. WATCHING TV PROGRAM.NO LONGER CRYING OR APPEARS AGITATED. CALL LIGHT IN EASY REACH.
[2020-02-02] MEDS ORDERED: LISINOPRIL5 MG PO (18:59)
[2020-02-02] MEDS ORDERED: DICLOFENAC SOD100 G1 TOP (19:00)
[2020-02-02] MEDS ORDERED: CALCIUM500 MG PO (19:01)
[2020-02-02] MEDS ORDERED: TYLENOL EXTRA500 MG PO (19:01)
[2020-02-02] MEDS ORDERED: MULTI VITAMIN1 EACH PO (19:01)
[2020-02-02] MEDS ORDERED: VITAMIN D325 MC2 PO (19:02)
--- NOTE | 2020-02-02 19:02 | NUR ---
MED REC COMPLETE
--- NOTE | 2020-02-02 19:33 | NUR ---
PT RESTING IN BED, LEFT LEG WRAPPED AND ELEVATED ON A SINGLE PILLOW. KIM WNL. CPOX 93% ON 1L NC. ICE PACK ON LLE. NO NEEDS AT THIS TIME. CALL LIGHT IN REACH.
--- NOTE | 2020-02-02 20:11 | PATH ---
[facility] [address] [facility] [place], [place] [address] Signed ORDERING PHYSICIAN: Cisco Mooney MD PATIENT NAME: PHOENIX MISHRA GENDER: Elias : 1965 SPECIMEN(S): No Source Given MOLECULAR PATHOLOGY RESULTS: SARS-CoV-2 Not Detected ADDITIONAL NOTES.: The Eleele Fusion SARS-CoV-2 Assay is a multiplex real-time PCR (RT-PCR) in vitro diagnostic test intended for the qualitative detection of RNA from SARS-CoV-2 from individuals who meet COVID-19 clinical and/or epidemiological criteria. In general, SARS-CoV-2 RNA can be detected during the acute phase of infection. Positive results indicate the presence of SARS-CoV-2 RNA. Clinical correlation with patient history and other diagnostic information is necessary to determine patient infection status. Positive results do not rule out bacterial infection or co-infection with other viruses. Negative results do not preclude SARS-CoV-2 infection and should not be used as the sole basis for patient management decisions. Negative results must be combined with other clinical observations, patient history, and epidemiological information. The Eleele Fusion SARS-CoV-2 Assay is not yet approved or cleared by the [place] FDA. When there are no FDA-approved or cleared tests available, and other criteria are met, FDA can make tests available under an emergency access mechanism called an Emergency Use Authorization (EUA). The EUA for this test is supported by the Lug Loader of Health and Human Service's (HHS's) declaration that circumstances exist to justify the emergency use of in vitro diagnostics for the detection and/or diagnosis of the virus that causes COVID-19. This EUA will remain in effect for the duration of the COVID-19 declaration justifying emergency of IVDs, unless it is terminated or revoked by FDA, after which the test may no longer be used. The Eleele Fusion SARS-CoV-2 Assay is for use only under EUA in US laboratories certified under the Clinical Laboratory Improvement Amendments of 1988 (CLIA) to perform high complexity tests. [facility] is certified under CLIA to perform high complexity PATIENT NAME: PHOENIX MISHRA PATHOLOGY DATE OF : [birth year] REPORT #: [id number] PHYSICIAN: RAF GARCIA PCP: JOANN RODRIGUEZ MD REPORT IS CONFIDENTIAL AND NOT TO BE RELEASED WITHOUT AUTHORIZATION [address] [address] Signed clinical laboratory testing. PERFORMING LABORATORY.: Molecular testing was performed by [facility] [address] [place], [place] [address], [place] [address] (Project Architect: Sebas Tolliver D.O.; CLIA#: [id number]) Diagnostician: System Interface Pathologist Electronically Signed 02/02/2020 Copies: ~ PATIENT NAME: PHOENIX MISHRA PATHOLOGY DATE OF : 69 REPORT #: [id number] PHYSICIAN: RAF GARCIA PCP: JOANN RODRIGUEZ MD REPORT IS CONFIDENTIAL AND NOT TO BE RELEASED WITHOUT AUTHORIZATION
--- NOTE | 2020-02-02 21:21 | NUR ---
ASSESSMENT COMPLETED, VS AND I&O COMPLETED. ALVAREZ WNL. LLE TOES APPROPRIATE COLOR, SLIGHT MOVEMENT, CAN FEEL PRESSURE. SCANT BLOOD NOTED ON DRESSING AT MID ANTERIOR LEG AND LEFT OUTER ANKLE. LEG ON PILLOW WITH ICE. PT DENIES PAIN AT THIS TIME. SCHEDULED MEDS PROVIDED. LUNGS CLEAR IN ALL LOBES, DIMINISHED IN LOWER LOBES. BOWEL TONES ACTIVE. CMS INTACT IN 3 OTHER EXTREMITIES. CPOX 95% ON 1L NC, O2 REMOVED, WILL MONITOR. NO OTHER NEEDS AT THIS TIME. CALL LIGHT IN REACH.
--- NOTE | 2020-02-03 00:02 | NUR ---
IV PUMP ALARMING, RESOLVED. SPO2 96% RA. NO OTHER NEEDS AT THIS TIME. CALL LIGHT IN REACH.
--- NOTE | 2020-02-03 02:20 | NUR ---
vitals and i&os done and charted. bedside table and call light in reach. fresh ice water given. pt needs nothing more at this time.
--- NOTE | 2020-02-03 02:28 | NUR ---
ASSESSMENT, VS AND I&O COMPLETED. PT STATES SHE HAS MUSCLE SPASMS IN HER BACK AND RIGHT LEG, PT REPOSITIONED. PT COMPLAINS THAT SHE CAN'T SLEEP, PRN SLEEP MED PROVIDED. SPO2 91% ON RA, 1L NC PROVIDED. NO CHANGES TO BANDAGING, TOES IN LLE APPROPRIATE COLOR, UNABLE TO ASSESS PULSE DUE TO BANDAGING. CMS INTACT IN ALL OTHER EXTREMITIES. I.S. ENCOURAGED. LUNGS CLEAR BUT DIMINISHED IN LOWER LOBES. IV WNL. ICE WATER PROVIDED BY ANA MARIA REILLY. NO OTHER NEEDS, CALL LIGHT IN REACH.
--- NOTE | 2020-02-03 03:55 | NUR ---
PT RESTING IN BED, EYES CLOSED. SPO2 93% ON 1L NC. RR EVEN, UNLABORED. CALL LIGHT IN REACH.
--- NOTE | 2020-02-03 04:46 | NUR ---
PT CALLS STATING HER PAIN IS 9/10 IN LLE, PRN PAIN MED AND ICE PACK PROVIDED. ICE WATER PROVIDED. PT IS CRYING, THERAPUTIC COMMUNICATION AND EDUCATION PROVIDED. CPOX 96% ON 1L NC. NO OTHER NEEDS AT THIS TIME. CALL LIGHT IN REACH.
--- NOTE | 2020-02-03 06:25 | NUR ---
PT SLEPT OFF AND ON LAST NIGHT. PAIN MANAGED WELL WITH THE SPINAL BLOCK. PAIN BECAME 9/10 IN THE POLICY SERVICE COORDINATOR, PRN PAIN MED PROVIDED, APPEARS TO BE COVERING THE PAIN AT THIS TIME. PT ON 1L O2 NC SHE TENDS TO DROP INTO THE LOW 90s WHILE SLEEPING. LLE TOES CAN FEEL PRESSURE, HAVE MOVEMENT AND ARE APPROPRIATE COLOR. UNABLE TO ASSESS PULSE IN LLE DUE TO BANDAGING. SMALL AMOUNT OF RED BLOOD ON ANTERIOR LEFT LEG AND OUTER LEFT ANKLE. PT TOLERATED MEDS WELL. SHE EXPRESSES FEAR OF MOVING THE LLE DUE TO PAIN IT MAY CAUSE, THUS SHE DID NOT REPOSITION MUCH THROUGH THE NIGHT. PT TOLERATED FOOD AND ORAL INTAKE WELL. PT TOLERATED ALVAREZ WELL. IV WNL, TOLERATED WELL.
--- NOTE | 2020-02-03 06:37 | NUR ---
VITALS AND I&OS DONE AND CHARTED. BEDSIDE TABLE AND CALL LIGHT IN REACH. GARBAGES EMPTIED. PT NEEDS NOTHING MORE AT THIS TIME.
--- NOTE | 2020-02-03 08:21 | NUR ---
SAT UP IN BED FOR BREAKFAST, ATE 100% OF BREAKFAST, BLOOD SUGAR 87 THIS AM, IN MUCH BETTER SPIRITS THIS AM, REPORTS PAIN IS 8/10 BUT COMFORTABLE, GOOD SENSATION IN TOES, ABLE TO MOVE TOES, PINK AND WARM, NO CHANGE IN SHADOWING AROUND PIN SITES. KEEPING LEG ON PILLOW WITH GOOD ALIGNMENT. ENCOURAGED PT TO CONT. TO USE INCENTIVE SPIROMETER WITH ALL COMMERCIALS WHILE WATCHING TV PROGRAM. O2 DECREASED TO .5L/NC. LUNGS ARE CLEAR BUT DIM IN BASES. DENIES ANY NEEDS AT THIS TIME. CALL LIGHT IN EASY REACH.
--- NOTE | 2020-02-03 08:56 | OR ---
[facility] [address], [place] [address] Signed DATE OF OPERATION: 02/02/2020 SURGEON: Catalina Neves MD PREOPERATIVE DIAGNOSIS: Pilon fracture distal tibia with lateral malleolus fracture dislocation of the ankle. POSTOPERATIVE DIAGNOSIS: Pilon fracture distal tibia with lateral malleolus fracture dislocation of the ankle. PROCEDURES PERFORMED: 1. Open reduction and internal fixation, Pilon fracture. 2. Open reduction and internal fixation, left lateral malleolus. 3. Application of external fixator. ANESTHESIA: Spinal with sciatic block. CENTRIFUGE SEPARATOR OPERATOR: Lisset AVITIA. BLOOD LOSS: Minimal. TOURNIQUET TIME: 96 minutes. BRIEF HISTORY: Phoenix is a 54-year-old female, who suffered a nondisplaced ankle fracture treated by the reconstructive dentist. She apparently sustained a 2nd fall about 2 weeks ago where she ended up with a compressed pilon fracture with a dislocation. Attempted reduction was done by the ER doctor and he discharged her home with followup with Podiatry. She, however, showed up in my office 2 weeks later. It did take us multiple attempts to get her into the office. When she came into the office, ankle was dislocated again anterior laterally. The lateral malleolus was 45 degrees angulated and the distal tibia was fractured in multiple planes. Initially, we attempted to send her to a Foot and Ankle specialist at [facility], however, he refused to accept the patient, so we elected to keep her here as [facility] and [facility] were both full. She did have significant soft tissue injury. The blisters were healing. However, medially she had blisters and pressure over the medial malleolus since she had been dislocated for quite some time. The skin Electronically Signed By: CATALINA NEVES MD 02/03/20 0856 PATIENT NAME: PHOENIX MISHRA OPERATIVE REPORT DATE OF : 69 REPORT #: [id number] PHYSICIAN: CATALINA NEVES MD PCP: JOANN RODRIGUEZ MD REPORT IS CONFIDENTIAL AND NOT TO BE RELEASED WITHOUT AUTHORIZATION [facility] [address], [place] [address] Signed was quite compromised over the medial malleolus. The election to go with the external fixator and possible internal fixation was discussed with her at length and she understands, wishes to proceed. DESCRIPTION OF PROCEDURE: Once consent was obtained, she was taken to the operating room. After adequate anesthesia, the boot was removed and she was placed in a proximal leg tourniquet. The leg was then prepped and draped in a standard sterile fashion. The leg was exsanguinated after prepping and draping and the tourniquet was inflated to 275 mmHg. The lateral malleolus was approached first. Holding the ankle in a semi-reduced position, the lateral approach was made through skin and subcutaneous tissue, carried down to the lateral malleolus. The periosteum and early callus were taken off the bone. The bone was then reduced and held. We placed the plate laterally and held with a proximal screw. Then, using the push-pull device, we were able to reduce the distal fragment to the plate and secured with 3 locking 3.5 screws. The remaining proximal screws were placed and checked with the image intensifier. All screws were found to be in good length and the plate appropriately placed. We then attempted to reduced the ankle, which was still subluxed about 4 mm anteriorly. I was unable to reduce it and hold it with any significant stability. We then placed the external fixator using a Synthes articulated large ex fix through two 5-0 Schanz pins in the proximal tibia and 2 in the foot, one in the calcaneus, one in the talar neck. This was located using the image intensifier and centered in both bones. We then applied the external fixator, tightened it and applied traction, which allowed us to reduce the ankle. We then made an anterior lateral approach to the tibia. Skin incision was made in line with the 4th metatarsal, carried through the skin and subcutaneous tissue. The superficial peroneal nerve was located, retracted, and protected. The extensor retinaculum was then incised longitudinally and the extensor tendons were carefully retracted and protected. Periosteum and early callus were then incised and elevated off the anterior tibia. We did leave the soft tissue intact to the distal fragments of the comminuted tibial fracture. Once we had adequate exposure, the small Synthes anterior lateral plate was positioned on the distal tibia and the position was adjusted using the image intensifier until it was well-seated. This was then held with one screw in the longitudinal portion of the plate. The plate placement and alignment were again checked using the image intensifier. We were able then to place 3 screws from anterior to posterior, compressing the anterior fragments, which were multiply comminuted and thus containing the talus in its normal position. Three more screws were then placed in the longitudinal limb of the plate. Final radiographs showed 2 screws to being too long. These were replaced and all other screws were adequately positioned and of appropriate length. Both wounds were copiously irrigated with antibiotic solution, closed with 2-0 Monocryl deep and 2-0 nylon for the skin. The medial malleolus fracture was not fixed, although it was anatomically reduced secondary to the significant skin compromise medially. We will come back and fix this later if it should need to be. We did leave Electronically Signed By: CATALINA NEVES MD 02/03/20 0856 PATIENT NAME: PHOENIX MISHRA OPERATIVE REPORT DATE OF : 69 REPORT #: [id number] PHYSICIAN: CATALINA NEVES MD PCP: JOANN RODRIGUEZ MD REPORT IS CONFIDENTIAL AND NOT TO BE RELEASED WITHOUT AUTHORIZATION [facility] [address], [place] [address] Signed the external fixator on to keep the ankle reduced and reduce the pressure on both medial malleolus and the anterior comminuted fracture line. The wounds were dressed with Xeroform, sterile gauze, and sterile Kerlix. She was placed in a cast shoe to keep her at a neutral position, taken to recovery room in satisfactory condition. All sponge, needle, and instrument counts were correct. Catalina Neves MD BA/MODL /[id number] Copies: ~ Electronically Signed By: CATALINA NEVES MD 02/03/20 0856 PATIENT NAME: PHOENIX MISHRA OPERATIVE REPORT DATE OF : 69 REPORT #: [id number] PHYSICIAN: CATALINA NEVES MD PCP: JOANN RODRIGUEZ MD REPORT IS CONFIDENTIAL AND NOT TO BE RELEASED WITHOUT AUTHORIZATION
--- NOTE | 2020-02-03 09:30 | NUR ---
DR DOLAN IN TO SEE PT.
--- NOTE | 2020-02-03 11:00 | NUR ---
PATIENT WORKING WITH PT TREASURE AND THIS SCHOOL BUS DRIVER/MECHANIC. STAND AT SIDE OF BED ON RT FOOT ONLY. WAS ABLE TO SIT AND STAND SEVERAL TIMES, TOLERATED WELL. LINENS CHANGED. ICE TO F FOOT. FRESH ICE WATER. CALL LIGHT IN REACH
--- NOTE | 2020-02-03 11:00 | NUR ---
PT WAS MOTIVATED AND COOPERATIVE, WORKED WELL WITH PT, ABLE TO FOLLOW INSTRUCTION AND EXERCISES, SIT TO STAND USING WALKER, NWB TO L LEG. GOOD PAIN CONTROL.
--- NOTE | 2020-02-03 13:37 | NUR ---
PT REQUESTED PAIN MEDICATION, L LEG REPOSITINED WITH FRESH ICE PACK, OXYCODONE GIVEN, ATE 100% OF LUNCH, WATCHING TV PROGRAM AND DRINKING DIET SPRITE.
--- NOTE | 2020-02-03 13:58 | NUR ---
VITALS AND I&OS CHARTED. ALVAREZ EMPTIED. CALL LIGHT IN REACH, NO OTHER NEEDS AT THIS TIME
--- NOTE | 2020-02-03 17:53 | NUR ---
PT HAD A LONG NAP, WOKE HUNGRY ORDERED SALMON DINNER, MEDICATED FOR 5/10 PAIN IN LLLEG, REPOSITIONED FOR COMFORT. DENIES FURTHER NEEDS.
--- NOTE | 2020-02-03 19:25 | NUR ---
SHIFT REPORT RECEIVED FROM RENE JACOBSON. PT RESTING IN BED WATCHING TV. PAIN 4/, DENIES NEED FOR FURTHER PAIN INTERVENTION. NO OTHER NEEDS. CALL LIGHT IN REACH.
--- NOTE | 2020-02-03 22:37 | NUR ---
I&OS DONE AND CHARTED. FRESH ICE WATER GIVEN. BEDSIDE TABLE AND CALL LIGHT IN REACH. PT NEEDS NOTHING ELSE AT THIS TIME.
--- NOTE | 2020-02-03 22:37 | NUR ---
ASSESSMENT, VS AND I&O COMPLETED. SCHEDULED MEDS PROVIDED. LLE PAIN 6/10, PRN PAIN MED PROVIDED. LUNGS CLEAR, BOWEL TONES ACTIVE. IV CDI, WNL, FLUSHED WELL. LLE SENSATION AND MOTOR INTACT, UNABLE TO ASSESS PULSE DUE TO BANDAGING, TOES ARE APPROPRIATE COLOR. CMS INTACT IN THE OTHER 3 EXTREMITIES. SCD, HEEL ON. NC @ 1L, CPOX 96%. SORBET PROVIDED. NO OTHER NEEDS. CALL LIGHT IN REACH.
--- NOTE | 2020-02-03 22:53 | NUR ---
MAGDI HOSE PUT ON RIGHT LEG AND WARM BLANKET GIVEN.BEDSIDE TABLE AND CALL LIGHT IN REACH.
--- NOTE | 2020-02-04 01:17 | NUR ---
SCHEDULED MEDICATION PROVIDED. NO OTHER NEEDS AT THIS TIME. CALL LIGHT IN REACH.
--- NOTE | 2020-02-04 02:30 | NUR ---
PT STATES LLE PAIN IS 6/10, PRN PAIN MED PROVIDED. NO OTHER NEEDS AT THIS TIME. CALL LIGHT IN REACH.
--- NOTE | 2020-02-04 04:09 | NUR ---
PT RESTING IN BED, EYES CLOSED. RR EVEN, UNLABORED. NC @ 1L. ALVAREZ WNL. CALL LIGHT IN REACH.
--- NOTE | 2020-02-04 05:08 | NUR ---
PT AWAKE IN ROOM. ASSESSMENT COMPLETED. LLE COLOR APPROPRIATE, SENSATION AND BANDAGING INTACT, DRY. UNABLE TO ASSESS PULSE DUE TO BANDAGES. CMS INTACT IN OTHER 3 EXTREMITIES. PAIN 4/10, DENIES NEED FOR ADDITIONAL PAIN MANAGEMENT AT THIS TIME. ALVAREZ WNL. IV WNL. BOWEL TONES ACTIVE. LUNGS CLEAR. CLEAR DIET SODA AND ICE PROVIDED. NO OTHER NEEDS AT THIS TIME. CALL LIGHT IN REACH.
--- NOTE | 2020-02-04 06:07 | NUR ---
VITALS AND I&OS DONE AND CHARTED. BEDSIDE TABLE AND CALL LIGHT IN REACH. GARBAGES EMPTIED.
--- NOTE | 2020-02-04 06:24 | NUR ---
SCHEDULED MEDS PROVIDED. LLE PAIN 12/05, PRN PAIN MED PROVIDED. NO OTHER NEEDS AT THIS TIME. CALL LIGHT IN REACH.
--- NOTE | 2020-02-04 07:45 | NUR ---
PATIENT IN BED WATCHING TV. WHITE BOARD UPDATED. CALL LIGHT WITHIN REACH. NO OTHER NEEDS AT THIS TIME
--- NOTE | 2020-02-04 07:46 | NUR ---
RECEIVED REPORT FROM JAKE JACOBSON. PT APPEARS TO BE RESTING AT THIS TIME WITH RESPIRATIONS NOTED
--- NOTE | 2020-02-04 10:12 | NUR ---
PATIENT RESTING IN BED. VITAL SIGNS ANDO I&O DONE. ICE WATER GIVEN. CALL LIGHT WITHIN REACH. NO OTHER NEEDS AT THIS TIME
--- NOTE | 2020-02-04 14:00 | NUR ---
PATIENT RESTING IN BED. VITAL SIGNS AND I&O DONE. CALL LIGHT WITHIN REACH. NO OTHER NEEDS AT THIS TIME
--- NOTE | 2020-02-04 14:05 | NUR ---
PATIENT RESTING IN BED. PATIENT DID NOT VOID DURING THIS PERIOD. RN NOTIFIED. CALL LIGHT WITHIN REACH. NO OTHER NEEDS AT THIS TIME
--- NOTE | 2020-02-04 16:00 | NUR ---
PER PT REQUEST THIS RN CALLED TO NOTIFY HIM THAT PT WANTED SOMETHING FOR HER ACID REFLEX. THIS RN RECEIVED A VERBAL ORDER FOR PROTONIX 40MG DAILY. THIS RN TO GIVE ONE NOW TO HELP ALLEVIATED PTS SYMPTOMS
--- NOTE | 2020-02-04 18:14 | NUR ---
PATIENT SITTTING UP IN CHAIR. VITAL SIGNS AND I&O DONE. CALL LIGHT WITHIN REACH. NO OTHER NEEDS AT THIS TIME
--- NOTE | 2020-02-04 19:44 | NUR ---
SHIFT REPORT RECEIVED FROM NURSE MEDINA. PT IN BED, ALERT AND ORIENTED. TALKTAVIE THROUGH REPORT. NO REQUESTS AT THIS TIME. CALL LIGHT WITHIN REACH.
--- NOTE | 2020-02-04 21:50 | NUR ---
ASSESSMENT COMPLETE. PT WAS UP TO BSC WITH FWW AND SBA. PT WAS ABLE TO COMPLETE TRANSFER WITH JUST SBA. PT HAD BOWEL MOVEMENT THAT WAS SOFT AND DARK IN COLOR. PT STATES THAT SHE ALSO HAS HAD DARK STOOLS AT HOME. PT RATES PAIN 4/10 AND STATES THAT PAIN IS IN SURGICAL AREA AND DISTAL TOWARDS ANKLE. PT PROVIDED WITH SCHEDULED NEURONTIN AND TYLENOL. DRESSING AROUND INTERNAL FIXATOR IS INTACT WITH MINIMAL SANGUINOUS DRAINAGE THAT HAS NOT CHANGED SINCE SHIFT CHANGE. PT RETURNED TO BED, LEG ELEVATED AND ICE PACK APPLIED TO LATERAL LOWER LEFT LEG. OPERATIVE LEG IS ALSO SECURED TO BED FRAME WITH LOOSE COBAN TO KEEP LEG FROM DRASTIC SHIFTING DURING SLEEP. SCD APPLIED TO RIGHT LEG. ICE WATER REFILLED, SUGAR FREE JELLO PROVIDED. NO FURTHER REQUESTS AT THIS TIME. CALL LIGHT WITHIN REACH.
--- NOTE | 2020-02-05 01:29 | NUR ---
CALL LIGHT ANSWERED. PT UP TO BSC. PT MADE TRANSFER ESSENTIALLY BY HERSELF WITH THIS NURSE GIVING HER MINIMAL ASSISTANCE. PT REQUESTS PRN PAIN MEDS FOR PAIN 8/10 IN OPERATIVE SITE. 10MG OXYCODONE ADMINISTERED. FRESH ICE PACK APPLIED TO LEFT LEG, FRESH DRINKING WATER PROVIDED. NO FURTHER REQUESTS AT THIS TIME. CALL LIGHT WITHIN REACH.
--- NOTE | 2020-02-05 01:30 | NUR ---
FRESH ICE WATER AND ICE PACK GIVEN. BEDSIDE TABLE AND CALL LIGHT WITHIN REACH. PT NEEDS NOTHING MORE AT THIS TIME.
--- NOTE | 2020-02-05 03:44 | NUR ---
ASSESSMENT COMPLETE. PT WAS UP TO C TO VOID. CLEAR YELLOW URINE OUTPUT WITH ADEQUATE QUANTITY. PT REPORTS AN "ACHE" IN HER OPERATIVE SITE. PT RATES THIS PAIN 6/10 BUT STATES THAT THIS IS TOLERABLE. NEXT PRN OXYCODONE ISNT DUE YET. PT AGREES TO WAIT UNTIL NEXT DOSE. SECOND ICE PACK APPLIED TO LOWER LEFT LEG. SCD ON RIGHT LEG. CALL LIGHT WITHIN REACH
--- NOTE | 2020-02-05 06:49 | NUR ---
CALL LIGHT ANSWERED. 1PA TO PIVOT WITH FWW TO BSC FOR VOID AND BACK TO BED. SCD ON. CALL LIGHT AND PERSONAL SUPPLIES IN REACH.
--- NOTE | 2020-02-05 07:39 | NUR ---
RECEIVED REPORT FROM DINORAH JACOBSON. PT A BIT GROGY THIS AM. PT STATES THE ONLY THING SHE NEEDS AT THIS TIME IS SOME ICE FOR HER WATER, THIS RN PROVIDED THIS FOR PT AT THIS TIME
--- NOTE | 2020-02-05 08:26 | NUR ---
CALL LIGHT ANSWERED. PATIENT RESTING IN BED. PATIENT USES THE BASE COMMODE. ONE PERSON ASSISTING WITH WALKER. PATIENT BACKS TO BED. ICE PACKS PROVIDED. SETS UP TABLE FOR BREAKFAST. CALL LIGHT WITHIN REACH. NO OTHER NEEDS AT THIS TIME
--- NOTE | 2020-02-05 09:15 | NUR ---
PATIENT RESTING IN BED. VITAL SIGNS AND I&O DONE. ICE WATER GIVEN. CALL LIGHT WITHIN REACH. NO OTHER NEEDS AT THIS TIME
--- NOTE | 2020-02-05 10:09 | NUR ---
THIS RN CALLED TO ALERT HIM OF PTS BP OF 98/68 TAKEN WITH A MANUAL BP. PT IS NOT SYMPTOMATIC, ALERT AND ORIENTED. PT SITTING UP IN BED DRINKING WATER WITH THE LIGHTS ON AT THIS TIME. PER AND PARAMETERS THIS RN IS NOT TO GIVE 50MG OF METOPTOLOL AND TO HOLD OFF ON THIS DOSAGE OF 10MG OXY UNITL PTS BP COMES UP A BIT
--- NOTE | 2020-02-05 11:04 | NUR ---
TERRENCE FROM PHYSCIAL THERAPY DISCUSSED WITH THIS RN THAT PTS BP TAKEN BY MANUAL WAS 91/60. PT REPORTED TO TERRENCE THAT HER PAIN 02/04. THIS RN DISCUSSED WITH IF PT COULD HAVE HER PAIN MEDS. OKAY WITH GIVING PAIN MEDS AT THIS TIME.
--- NOTE | 2020-02-05 14:00 | NUR ---
Spoke with pt when she was walking in the wood. She plans on discharge to [facility] when able. She is unsure if [facility] visited her today. Called and left a message for [facility] but have not recieved a return call. Awaiting to hear if Christina Gastelum compeleted assessment for medicaid on this pt.\ Called and spoke with Pina at [facility], they will take pt when [facility] completed their assessment and state pt is eligible for SNF payment.
--- NOTE | 2020-02-05 14:04 | NUR ---
PT SITTTNG IN BED, FINISHING LUNCH WITH TV ON. PT FRIENDLY, SHARED HER STORY OF HER INJURY. THANKED ME FOR VISITING-GAVE BLESSING. WILL FOLLOW
--- NOTE | 2020-02-05 15:23 | NUR ---
PATIENT USES THE BASE COMMODE. PATIENT BACKS TO BED. ONE PERSON ASSISTING WITH WALKER. BEDBATH AND LINENS CHANGED BY MELBA WILLIAMSON. CALL LIGHT WITHIN REACH. NO OTHER NEEDS AT THIS TIME
--- NOTE | 2020-02-05 17:59 | NUR ---
PATIENT SITTING UP IN BED. VITAL SIGNS AND I&O DONE. RAMON FOOD CAKE ORDERED FOR NIGHT SNACK. CALL LIGHT WITHIN REACH. PATIENT COMPLAINS BECAUSE SHE DOES NOT FEEL WELL. RN NOTIFIED. CALL LIGHT WITHIN REACH. NO OTHER NEEDS AT THIS TIME
--- NOTE | 2020-02-05 18:15 | NUR ---
PT REQUESTED MORE PAIN MEDS DUE TO HER PAIN HAVING INCREASED THIS AFTERNOON. THIS RN PROVIDED PT WITH 5MG MORE OF OXY SO THAT AT 1930 SHE WILL BE ABLE TO TAKE HER 10MG OF OXY. PT AGREEABLE TO THIS PLAN.
--- NOTE | 2020-02-05 19:26 | NUR ---
RECEIVED REPORT FROM INDIRA HANEY. pt RESTING IN BED. NO IV PER MEDINA OKAY TO LEAVE OUT. pt REPORTED THAT HER PAIN IS "OKAY" AT THIS WILL BRING PAIN MEDS WITH NIGHTLY MEDS. pt WILL CALL IF SHE NEEDS PAIN MEDS BEFORE. NO FURTHER REQUESTS AT THIS TIME. CALL LIGHT WITHIN REACH.
--- NOTE | 2020-02-05 21:45 | NUR ---
ASSESSMENT DONE. pt REPORTED 9/10 PAIN, PRN PAIN MEDICATION GIVEN. NYSTATIN TO AREA UNDER BREASTS. DRESSING INTACT, OLD SHADOWING NOTED. SHOE ON. ELEVATED. ICE. SCD TO RIGHT LEG. MEDICATIONS GIVEN (SEE MAR). FRESH WATER PROVIDED. CALL LIGHT WITHIN REACH.
--- NOTE | 2020-02-05 23:15 | NUR ---
PATIENT IS UP TO USE THE BEDSIDE COMMODE. PATIENT IS BACK IN BED. 2 ICE PACK MADE. SCD IS BACK ON.
--- NOTE | 2020-02-06 00:05 | NUR ---
ROUNDED ON pt. RESTING WITH EYES CLOSED, RESPIRATIONS REGULAR AND UNLABORED. CALL LIGHT WITHIN REACH.
--- NOTE | 2020-02-06 01:50 | NUR ---
CALL LIGHT ON. pt UP TO BSC AND BACK TO BED. REPORTED 7/10 PAIN, PRN PAIN MEDICATION GIVEN (SEE MAR). ASSESSMENT DONE. NO CHANGES IN LEFT LEG. CALL LIGHT WITHIN REACH. FRESH WATER PROVIDED.
--- NOTE | 2020-02-06 04:05 | NUR ---
PATIENT IS UP TO VOID. PATIENT IS BACK TO BED. SCD ON. MADE NEW ICE PACK X2.
--- NOTE | 2020-02-06 05:37 | NUR ---
MORNING MEDICATIONS GIVEN (SEE MAR). pt REPORTED SHE SLEPT "WELL WHEN I WAS SLEEPING." VITALS AND I&O RECORDED. FRESH WATER PROVIDED. NO FURTHER REQUESTS AT THIS TIME. CALL LIGHT WITHIN REACH.
--- NOTE | 2020-02-06 06:42 | NUR ---
pt RESTED ON AND OFF DURING SHIFT. PAIN CONTROLLED WITH PRN X2 AND SCHEDULED MEDS. LEFT LEG DRESSING INTACT NO NEW SHADOWING, SHOE IN PLACE. SCD AND AES ON RIGHT LEG. UP TO BSC 1PA. NO IV. USES CALL LIGHT APPROPRIATELY.
--- NOTE | 2020-02-06 07:58 | NUR ---
RECEIVED REPORT FROM PANCHO JACOBSON. PT STATES THAT SHE IS HAVING PAIN 02/04. THIS RN INTO ROOM TO PROVIDE PT WITH 10MG OF OXY AT THIS TIME.
--- NOTE | 2020-02-06 08:08 | NUR ---
PATIENT SITTING UP IN BED. WHITE BOARD UPDATED. SETS UP TABLE FOR BREAKFAST. CALL LIGHT WITHIN REACH. NO OTHER NEEDS AT THIS TIME
--- NOTE | 2020-02-06 09:51 | NUR ---
PATIENT SITTING UP IN BED. VITAL SIGNS AND I&O DONE. ICE WATER GIVEN. PATIENT COMPLAINS ABOUT PAIN. RN NOTIFIED. CALL LIGHT WITHIN REACH. NO OTHER NEEDS AT THIS TIME
--- NOTE | 2020-02-06 10:00 | NUR ---
IN PTS ROOM AFTER GIUSEPPE REILLY NOTIFED THIS RN THAT PT WAS STILL IN PAIN. THIS RN PROVIDED PT WITH 5MG OF OXY TO BRIDGE HER TO HER TO THE NEXT DOSE. PT IS HAVING "SHOCK" PAIN THAT SHOOTS DOWN HER LEFT TOMLIN. THIS RN ALSO HAD ICE PACKS APPLIED TO HER TOMLIN. THIS RN WILL REASSES PAIN AFTER MEDS HAVE HAD TIME TO TAKE AFFECT.
--- NOTE | 2020-02-06 11:45 | NUR ---
Spoke with pt. She is doing well today. Called and spoke with Christina from [facility]. She will evaluate pt tomorrow at 2 pm. Updated notes, meds, and PT assessments faxed to [facility] per request.
--- NOTE | 2020-02-06 13:30 | NUR ---
this rn walking by pts room to check on pt. pt appears to be resting comfortably at this time with respirations noted.
--- NOTE | 2020-02-06 13:47 | NUR ---
PT WAS RESTING, REQUESTED I RETURN LATER. WILL FOLLOW NEEDED
--- NOTE | 2020-02-06 18:08 | NUR ---
in pts room to do dressing change. pt tolerated well but did have increased pain when removing the dressing. this rn applied hydrogen pyroxide to each pin insertion site. wound is now open to air per verbal order from . this rn did provide pt with 10mg of oxy and 4mg of zofran at this time per pt request.
--- NOTE | 2020-02-06 18:41 | NUR ---
pt had an okay day. pt this am had "shock" pain that resided in her left srinivasan. pt was able to sleep at certain points today. pt was on room air today and tolerated working with physical therapy for a bit of time. this rn also removed pts dressing and cleaned the pin insertion sites.
--- NOTE | 2020-02-06 19:25 | NUR ---
IN ROOM FOR REPORT, PT IS RESTING WITH EYES CLOSED RR IS EVEN AND NONLABORED. CALL LIGHT IS CLOSE.
--- NOTE | 2020-02-06 20:24 | NUR ---
IN ROOM TO ADMINISTER 5 MG OXYCODONE SINCE HER LAST DOSE WAS NOT THE FULL 15 MG. SHE RATES PAIN 8/10 IN LEG AT THIS TIME. SHE DENIES FURTHER NEEDS CALL LIGHT IS CLOSE.
--- NOTE | 2020-02-06 22:23 | NUR ---
IN ROOM TO ASSESS PT AND ADMINISTER MEDICATIONS. SHE RATES PAIN AT 8/10. ADMINISTERED 2 OXYCODONE. SHE HAS NOT BEEN ABLE TO GET BY WITH JUST THE 2 OXYCODONE WITHOUT REQUIRING THE 3RD ONE AN HOUR OR 2 LATER. WE TALKED ABOUT WAITING 4 HOURS FROM THIS DOSE AND TRYING 3 OXYCODONE AT ONCE (15MG TOTAL) BECAUSE HER PAIN IS STAYING AROUND AN 8/10 CONSISTENTLY. NO DRESSING OVER STICHES OR PIN SITES WHICH WERE CLEANED TODAY PER ORDERS. PT HAS AES AND SCD ON RT LEG. SURGICAL SHOE AND BAND/COBAN ARE IN PLACE TO KEEP L FOOT ALIGNED. PT DENIES FURTHER NEEDS AT THIS TIME. CALL LIGHT IS CLOSE.
--- NOTE | 2020-02-06 23:57 | NUR ---
PT CALLED ASKING FOR CRAN JUICE, GAVE HER 50 LUZ ELENA CRAN. SHE DENIES FURTHER NEEDS. CALL LIGHT IS CLOSE.
--- NOTE | 2020-02-07 01:05 | NUR ---
ANSWERED CALL LIGHT. SBA TO BEDSIDE COMMODE. PATIENT IS BACK IN BED. SCD ON. ICE REFILLED.
--- NOTE | 2020-02-07 02:40 | NUR ---
PATIENT WAS UP TO THE BEDSIDE COMMODE. PATIENT IS BACK IN BED. SCD ON. ICE PACK X2 ON LEFT LOWER LEG. PRIMARY NURSE WAS WITH PATIENT.
--- NOTE | 2020-02-07 02:46 | NUR ---
PT WAS IN A LOT OF PAIN AFTER GETTING UP TO USE BSC. ADMINISTERED 15MG PO OXYDOCONE FOR 9/10 PAIN. PT ASKED FOR HER POPCYCLE FROM THR FREEZER AND DENIES FURTHER NEEDS AT THIS TIME. PINS AND STITCHES LOOK FINE NO DRAINAGE NOTED. CALL LIGHT IS CLOSE.
--- NOTE | 2020-02-07 04:47 | NUR ---
PT IS RESTING WITH EYES CLOSED, RR IS EVEN AND NONLABORED. CALL LIGHT IS CLOSE.
--- NOTE | 2020-02-07 08:13 | NUR ---
received report from hannah melgar. pt appears to be resting at this time with respirations noted
--- NOTE | 2020-02-07 08:33 | NUR ---
COVID-19 SWAB BY PCR COLLECTED BY RT PT TOLERATED WELL. PLACED IN [employer] [facility] AT 0820.
--- NOTE | 2020-02-07 10:44 | NUR ---
Received call from Christina at [facility]. She request to see pt now and encouraged to do so. Notified Petra, [facility] will be here in the next 1/2 hour.
--- NOTE | 2020-02-07 10:45 | NUR ---
PATIENT CALLED FOR ASSISTANCE TO BSC. FWW. LINENS CHANGED. OT IN ALSO. CALL LIGHT IN REACH
--- NOTE | 2020-02-07 11:46 | NUR ---
Spoke with Christina who is completing [place] medicaid form. She states pt will qualify. Let her know I will notify the SNF and hopefully pt can admit tomorrow. Snf orders printed for Dr. Neves.
--- NOTE | 2020-02-07 14:15 | NUR ---
in pts room to give afternoon meds. pt states that pain is 5/10 and that she is feeling less of the "shock" pain this afternoon.
--- NOTE | 2020-02-07 14:29 | NUR ---
this rn in pts room to also do pts wound cleaning. this rn applied the hydrogen pyroxide to the pin insertion sites with a q-tip. there was some fizzing at each site and old crusty drainage that was removed gently with the q-tip. pt tolerated well pt in a good mood at this time and seems to be having a much better day today
--- NOTE | 2020-02-07 15:20 | NUR ---
VITALS AND IS&OS CHARTED , PATIENT RESTING, EYES CLOSED
--- NOTE | 2020-02-07 16:20 | NUR ---
Received call from Pina at [facility]. She received auth for admission. Will fax orders and RX tomorrow when completed by Dr. Flores. Pt will transport wc van. Requested staff find clothing to wear, as her clothing was infested with bedbugs. Staff will provide an extra large gown. Also requested when transport called, to ask them to picking tech a wc from [facility] to transport pt. Will follow up tomorrow.
--- NOTE | 2020-02-07 17:00 | NUR ---
IN PTS ROOM TO GIVE MEDS. PT HAS NO COMPLAINTS AT THIS TIME. PT DOES STATE SHE NEEDS TO USE THE COMMODE. PT ABLE TO TRANSFER SET UP SBA.
--- NOTE | 2020-02-07 19:20 | NUR ---
IN ROOM FOR REPORT, PT IS RESTING WITH EYES CLOSED. RR IS EVEN AND NONLABORED AND CALL LIGHT IS CLOSE.
--- NOTE | 2020-02-07 20:23 | PATH ---
[facility] [address] [facility] [place], [place] [address] Signed ORDERING PHYSICIAN: Tin Neves MD PATIENT NAME: PHOENIX MISHRA GENDER: Elias : 1965 SPECIMEN(S): No Source Given MOLECULAR PATHOLOGY RESULTS: SARS-CoV-2 Not Detected ADDITIONAL NOTES.: The [place] Fusion SARS-CoV-2 Assay is a multiplex real-time PCR (RT-PCR) in vitro diagnostic test intended for the qualitative detection of RNA from SARS-CoV-2 from individuals who meet COVID-19 clinical and/or epidemiological criteria. In general, SARS-CoV-2 RNA can be detected during the acute phase of infection. Positive results indicate the presence of SARS-CoV-2 RNA. Clinical correlation with patient history and other diagnostic information is necessary to determine patient infection status. Positive results do not rule out bacterial infection or co-infection with other viruses. Negative results do not preclude SARS-CoV-2 infection and should not be used as the sole basis for patient management decisions. Negative results must be combined with other clinical observations, patient history, and epidemiological information. The [place] Fusion SARS-CoV-2 Assay is not yet approved or cleared by the [place] FDA. When there are no FDA-approved or cleared tests available, and other criteria are met, FDA can make tests available under an emergency access mechanism called an Emergency Use Authorization (EUA). The EUA for this test is supported by the [place] of Health and Human Service's (HHS's) declaration that circumstances exist to justify the emergency use of in vitro diagnostics for the detection and/or diagnosis of the virus that causes COVID-19. This EUA will remain in effect for the duration of the COVID-19 declaration justifying emergency of IVDs, unless it is terminated or revoked by FDA, after which the test may no longer be used. The [place] Fusion SARS-CoV-2 Assay is for use only under EUA in US laboratories certified under the Clinical Laboratory Improvement Amendments of 1988 (CLIA) to perform high complexity tests. [facility] is certified under CLIA to perform high complexity PATIENT NAME: PHOENIX MISHRA PATHOLOGY DATE OF : 69 REPORT #: [id number] PHYSICIAN: RAF GARCIA PCP: JOANN RODRIGUEZ MD REPORT IS CONFIDENTIAL AND NOT TO BE RELEASED WITHOUT AUTHORIZATION [address] [address] Signed clinical laboratory testing. PERFORMING LABORATORY.: Molecular testing was performed by [facility] [address] [place] [id number] (Spray Ii Painter: Sebas Tolliver D.O.; CLIA#: [id number]) Diagnostician: System Interface Pathologist Electronically Signed 02/07/2020 Copies: ~ PATIENT NAME: PHOENIX MISHRA PATHOLOGY DATE OF : [birth year] REPORT #: [id number] PHYSICIAN: RAF GARCIA PCP: JOANN RODRIGUEZ MD REPORT IS CONFIDENTIAL AND NOT TO BE RELEASED WITHOUT AUTHORIZATION
--- NOTE | 2020-02-07 22:15 | NUR ---
VITALS AND I&OS DONE AND CHARTED. FRESH ICE WATER GIVEN. HELPED PT TO THE BSC AND BACK TO BED WITH HER FWW. BEDSIDE TABLE AND CALL LIGHT IN REACH. BLOOD SUGAR DONE AND CHARTED WELL. PT NEEDS NOTHING MORE AT THIS TIME.
--- NOTE | 2020-02-07 22:30 | NUR ---
ADMINSITERED MEDICATIONS AND ASSESSED PT. ADMINISTERED 2 NORCO FOR 5/10 PAIN. STITCHES AND PINS IN L ANKLE ARE IN PLACE AND THERE IS SCANT DRAINAGE NOTED FROM PIN ON MEDIAL SIDE OF FOOT. SHE HAD LIQUID BM TODAY AND WE HELD THE MILK OF MAG. SCD AND AES ON R LEG. ICE IS ONE LEFT FOOT/LOWER LEG. RT PLACED PT ON 2 LNC D/T O2 SAT DROPPING. PT IS 100% ON RA. TURNED O2 DOWN TO 1LNC AND WILL CHECK ON IT AGAIN WHEN SHE IS SLEEPING. PT DENIES FURTHER NEEDS. CALL LIGHT IS CLOSE.
--- NOTE | 2020-02-07 23:35 | NUR ---
PT IS RESTING WITH EYES CLOSED, RR IS EVEN AND NONLABORED. O2 SAT IS 93% ON 1LNC. CALL LIGHT IS CLOSE.
--- NOTE | 2020-02-08 01:05 | NUR ---
HELPED PT TO THE BSC AND BACK TO BED WITH HER FWW. FRESH ICE WATER GIVEN. BEDSIDE TABLE AND CALL LIGHT IN REACH. SHE NEEDS NOTHING MORE AT THIS TIME.
--- NOTE | 2020-02-08 01:41 | NUR ---
PT CALLED ASKING FOR SOMETHING FOR HEARTBURN/INDIGESTION. UPON ENTERING THE ROOM SHE STATES SHE FEELS NAUSEAOUS WELL. ADMINISTERED ZOFRAN. PT DENIES FURTHER NEEDS AT THIS TIME. CALL LIGHT IS CLOSE.
--- NOTE | 2020-02-08 02:05 | NUR ---
PT'S O2 WENT BACK DOWN TO 88% ON RA, PLACED PT BACK ON 1 LNC WHILE SLEEPING.
--- NOTE | 2020-02-08 04:22 | NUR ---
HELPED PT TO THE BSC AND BACK TO BED WITH HER FWW. GARBAGES EMPTIED. BEDSIDE TABLE AND CALL LIGHT IN REACH.
--- NOTE | 2020-02-08 05:08 | NUR ---
ADMINISTERED 15MG OXYCODONE FOR 8/10 PAIN ALONG WITH THYROID MED AND TYLENOL. FRESH ICEPACKS ON LEG/FOOT AND FRESH ICEWATER AT BEDSIDE. PT DENIES FURTHER NEEDS AT THIS TIME. CALL LIGHT IS CLOSE.
--- NOTE | 2020-02-08 06:40 | NUR ---
VITALS AND I &OS DONE AND CHARTED. HELPED PT BACK TO THE BED FROM THE BSC. SC'D PLUGGED BACK IN. ICE PACKS PUT BACK ON. BEDSIDE TABLE AND CALL LIGHT IN REACH. GARBAGES EMPTIED. PT NEEDS NOTHING MORE AT THIS TIME.
--- NOTE | 2020-02-08 07:38 | NUR ---
Report recieved from Angel Redd RN. Patient lying in bed. Denies needs at this time. Call light in reach, bed rails up X2
[2020-02-08] MEDS ORDERED: CELECOXIB200 MG PO (07:54)
[2020-02-08] MEDS ORDERED: OXYCODONE HCL5 MG PO (07:55)
--- NOTE | 2020-02-08 09:48 | NUR ---
Sitting in recliner. States she would like to return to bed. States her ankle is painful. Assist back to bed, feet elevated on pillows. Ice packs applied to left ankle. SCD to Right leg. Denies other needs at this time. PRN analgesic provided as well. Denies other needs at this time. Call light in reach.
--- NOTE | 2020-02-08 10:03 | NUR ---
Orders, RX, Progress notes, PT/OT notes, med sheet, covid Test, and PASSR faxed to [facility]. Requested they place wc out for transport to [facility].
--- NOTE | 2020-02-08 11:26 | NUR ---
Pin sites cleansed with hydrogen peroxide per orders. Patient tolerated with some complaints of discomfort. Assist into wheelchair for transport to [facility].
--- NOTE | 2020-02-08 11:38 | NUR ---
Report called to Aazr Rueda RN.
== END 2020-02-08 11:47 | DRG 494 ==
LOC: ED 11:32 → MS 11:33 → ED 15:41 → MS 17:31
PROVIDERS: ADMIT Specialist
PROC: 0QSH04Z Reposition Left Tibia with Internal Fixation Device, Open Approach (ICD-10-PCS; principal; 2020-02-02 10:15)
PROC: 0QSK04Z Reposition Left Fibula with Internal Fixation Device, Open Approach (ICD-10-PCS; 2020-02-02 10:15)
DX: S82.872A Displaced pilon fracture of left tibia, initial encounter for closed fracture (principal); W19.XXXA Unspecified fall, initial encounter; E11.9 Type 2 diabetes mellitus without complications; Z79.4 Long term (current) use of insulin; J44.9 Chronic obstructive pulmonary disease, unspecified; I10 Essential (primary) hypertension; E78.5 Hyperlipidemia, unspecified; E03.9 Hypothyroidism, unspecified; K21.9 Gastro-esophageal reflux disease without esophagitis; G89.4 Chronic pain syndrome; Z79.82 Long term (current) use of aspirin; E66.01 Morbid (severe) obesity due to excess calories
CPT/HCPCS: 01480; 64445; 64447; 73610; 73700; 76942; 80053; 85025; 93005; 93010; 94640; 94664; 94760; 96374; 96375; 97110; 97116; 97162; 97165; 97535; 99284-25; C1713; C9803; J0690; J1100; J1170; J1815; J1885; J1940; J2250; J2270; J2405; J2704; J2765; J2795; J3010; J7121

== ENCOUNTER 2020-02-13 09:39 | Inpatient (IN) | payer OTHER ==
[~2020-02-13] VITALS: Ht 160 cm; Wt 132.9 kg
--- OUTSIDE RECORDS SUMMARY | ~2020-02-13 | XMS | Encounter Summary ---
Demographics + + + | Address | [address] | | | [place] [address] | + + + | Home Phone | | + + + | Preferred Language | Unknown | + + + | Marital Status | Legally | + + + | Scientologist Affiliation | Unknown | + + + | Race | White | + + + | Ethnic Group | Not or | + + + Author + + + | Author | [facility] | | | and [place] | + + + | Organization | [facility] | | | and [place] | + + + | Address | Unknown | + + + | Phone | Unavailable | + + + Support + + +---------+ + | Name | Relationship | Address | Phone | + + +---------+ + | Mliana Bullock | ECON | Unknown | | + + +---------+ + | Simone Holland | ECON | Unknown | | + + +---------+ + Care Team Providers + +------+ + | Care Under Presser Name | Role | Phone | + +------+ + | No, Unknownpcp | PCP | | + +------+ + Encounter Details +--------+ + + + + | Date | Type | Department | Care Team | Description | +--------+ + + + + | 01/07/ | Hospital | [place] | Mookie Bustamante, | | | 2013 - | Encounter | [facility] | [address] | | | | | [address] | [place] | | | 01/11/ | | [place] [id number] | [id number] | | | 2012 | | [phone] | | | +--------+ + + + + Social History + +-------+ +--------+------+ | Tobacco Use | Types | Packs/Day | Years | Date | | | | | Used | | + +-------+ +--------+------+ | Never Assessed | | | | | + +-------+ +--------+------+ + + + | Sex Assigned at | Date Recorded | | | | + + + | Not on file | | + + + documented as of this encounter Discharge Summaries Mookie Bustamante MD - 01/11/2013 9:47 [place] [address] Patient Name: PHOENIX DANGELO Provider: Mookie Bustamante MD Unit #: [id number] Location: [address] [place], [place] [address]t #: [id number] : 1965 ADMISSION DATE: 01/07/2013 DISCHARGE DATE: 01/11/2013 REASON FOR ADMISSION: Diabetic foot infection with cellulitis. FINAL DIAGNOSES DIABETIC FOOT INFECTION WITH CELLULITIS. CONSULTATIONS: Jef Gardner DPM, who did bedside debridement when he saw her. PROCEDURE 1. PICC line placement. 2. Bedside debridement. PAST MEDICAL HISTORY: Includes diabetes mellitus type 2, asthma, hypertension, hypothyroid ism, chronic low back pain, chronic right hip pain. HOSPITAL COURSE: The patient was admitted to the hospital by Dr. Harvey. She saw Dr. Castro bose, food scientist, who did beside debridement. He recommended that she be on antibiotics for a minimum of two weeks and then if she is doing well switch her to an oral antibiotic. We do have a decent wound culture, which beta strep Group G but also grew Staphylococcus chiquita us that is sensitive to clindamycin , erythromycin, gentamicin, minocycline, oxacillin, rif ampin, tetracycline as well as Septra. The patient had been on vancomycin but when I asked her about her penicillin allergy, it tu rns out that about 30 years ago she was taking her father's penicillin by mistake and think ing it would benefit her asthma and she was actually slowing getting more short of breath, and she ended up taking the penicillin for about two weeks. She did not have airway obstru ction. Thus, we were able to switch her to Rocephin to simplify her regimen and it is safe r than vancomycin regarding chronic toxicity. The original plan was to have her go home with [place] home infusions. However, the patient says her father will not allow that. Thus, she will be going to the [facility]. I did speak with Dr. Noe Gaspar on the phone on 01/10/2013. She needs to fol low up with him but she also should have the food scientist to see her and I would say within s ix days. Ideally, you could have the food scientist come to the [facility]. Check with Dr. Noe Gaspar which food scientist he wants her to see. She has seen a food scientist in the [facility] t. DISPOSITION: The patient to be discharged to the [facility] in improved condition. DIET: Will be diabetic, low fat, low cholesterol. She should work with physical therapy and if you have a wound care nurse as well. She can ambulate but I would have her minimize pressure on her right forefoot where she has the [facility] er. CODE STATUS: FULL CODE. MEDICATIONS 1. Ventolin inhaler 2 puffs q.i.d. p.r.n. 2. Lipitor 20 mg daily. 3. Rocephin 2 g IV daily through January 21. 4. Vasotec 5 mg daily. 5. Advair 500/50 one puff twice a day. 6. Amaryl 2 mg daily. 7. Hydroxyzine 50 mg 1-2 at bedtime p.r.n. insomnia. I believe she has taken higher doses in the past. 8. DuoNeb one ampule q.4 hours p.r.n. When she was home, she was actually using the Atrov ent added to the albuterol solution rather than the combination product. 9. Levothyroxine 150 mcg daily. 10. Metformin 500 mg 3 times a day with meals. 11. Metoprolol XL 50 mg once daily. 12. Singulair 10 mg daily. 13. Naproxen 500 mg twice a day p.r.n. female cramps. 14. Nystatin powder or similar 4 times a day p.r.n. to the rash below her intertriginous ar ea. Ideally you should clean it, let it dry and then apply the powder and she says she act ually uses paper towels between her breasts and her skin but cotton cloth would probably be more appropriate. 15. Prilosec 20 mg daily. 16. Percocet 5/325 one tablet 3 times a day p.r.n. pain. 17. MiraLax 17 g p.o. daily p.r.n. constipation. 18. Dyazide 75/50 one daily. 19. Lac-Hydrin 12% lotion to the scaly areas on her feet daily. 20. Insulin sliding scale we discontinued, as I resumed her oral medications. 21. Neosporin she has been using to an irritated spot from her glasses on her nose but idea lly she needs a new nose pad on her glasses and she says ultimately new glasses. 22. Rocephin 2 g IV daily through January 21. After she finishes her Rocephin, the physician to evaluate her to see if she should continue on Rocephin or switch over to an oral antibio tic such as Keflex, complete another one week or there about's course. 23. Tylenol 650 mg q.6 hours p.r.n. 24. Hypoglycemia protocol. We have one here but [facility] might have one but we include d ours. Glucoscans before meals. Again, she needs close followup with Dr. Noe Gaspar as well as contact Dr. Noe [facility]'s office for which food scientist to see and ideally the food scientist should start seeing he r at the [facility] and have your wound care team see her as well in the [facility]. Time of discharge more than 30 minutes. DICTATED BY: Mookie Bustamante MD Internal Medicine JOB #: [id number] EXT JOB #:[id number] cc: Dr Noe Gaspar in [facility] <<Signature on File>> Mookie Bustamante MD0 01/13/13 0536 <Electronically signed by Mookie Bustamante MD> documented in this encounter H&P Notes Provider Not, In System - 01/07/2013 4:10 [place] [address] Patient Name: DANICAPHOENIX Provider: Lam Harvey MD Unit #: [id number] Location: [facility] : 1965 DATE: 01/07/2013 CHIEF COMPLAINT: Swollen foot. HISTORY OF PRESENT ILLNESS: Ms. Dangelo is a 47-year-old white female followed by Dr. Rick darnell in [place] who has diabetes mellitus type 2 and asthma. She said that her feet are very dry and she does try to keep them moisturized. She did not notice any problem with the m and had guests over to her home yesterday and when they left in the evening she looked do wn and noted that her foot was swollen; this was about 6:30 p.m. She says that it did not r eally hurt, but she is known to have peripheral neuropathy. She had no fevers or chills, bu t because of the degree of swelling, she went to the emergency department in [facility] she was found to have a significant cellulitis, was given vancomycin and was transferred to [place] primarily because of some hyperkalemia and some renal insufficiency. Before being transferred, she was given vancomycin 1.7 grams IV at about 8 p.m. and was also given 30 grams of Kayexalate orally. She has never had cellulitis before. She said she noticed a sore on the ball of her foot on the left side also when she noticed that it was swollen. PAST MEDICAL HISTORY ALLERGIES: SHE IS ALLERGIC TO: 1. PENICILLIN. 2. SHELLFISH. 3. FLU VACCINE. MEDICATIONS 1. Advair 500/50 b.i.d. 2. Albuterol unit dose per updraft nebulizer q.i.d. and also metered dose inhaler 2 puffs p.r.n. 3. Singulair 10 mg p.o. daily. 4. Levoxyl 150 mcg p.o. daily. 5. Toprol-XL 50 mg p.o. daily. 6. Triamterene/hydrochlorothiazide 75-50 day. 7. Percocet 5/325 b.i.d. 8. Vistaril 100-200 mg p.o. at bedtime p.r.n. 9. Prilosec 20 mg p.o. daily. 10. Glimepiride 4 mg p.o. daily. 11. Metformin 500 mg q.i.d. 12. Vasotec 5 mg p.o. daily. 13. Diflucan 100 mg p.o. weekly. She took her last dose on Wednesday, today is Wednesday. 14. Lipitor 20 mg p.o. daily. 15. She also has both Naprosyn and Indomethacin; the Naprosyn is 500 b.i.d., Indomethacin 25 t.i.d. She says she does not take both of them on the same day, but she takes one or the other most days. OPERATIONS: Sinus and a cholecystectomy. MAJOR ILLNESSES 1. Diabetes mellitus type 2. 2. Asthma. 3. Hypertension. 4. Hypothyroidism. 5. Chronic low back pain and chronic right hip pain. 6. 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 FAMILY HISTORY: She says her mother at age 56 of multiple medical problems. She had e nd-stage renal disease and was on dialysis related to diabetes. Father is alive at 75. He d id have prostate cancer. SOCIAL HISTORY: She is a nonsmoker, nondrinker. She is . No children. She does no t work outside of the home. REVIEW OF SYSTEMS Positive for her chronic back pain for neuropathy, dry skin, insomnia, and she says that s he has had diabetes diagnosed for really only 1 year, but she has been told for the last 3 years that she was "borderline." PHYSICAL EXAMINATION VITAL SIGNS: She is 5 feet 4 inches tall, 255 pounds, temperature is 98.6, pulse 105, resp iratory rate 18, blood pressure 128/83, O2 saturation on room air is 98%. GENERAL: She is a very pleasant 47-year-old obese white female who does not seem to be in significant distress at rest. HEENT: Pupils are equal, round, react to light. Ears, nose and throat are unremarkable. On the left side of her nose she has an excoriation from broken eye glasses with some surroun ding erythema, some of the erythema goes down into the right cheek as well. LUNGS: Clear to auscultation and percussion. HEART: Regular borderline tachy rhythm without murmurs, gallops, or rubs. She has intertri ginous candidiasis with weeping lesions under the right breast, primarily, but some under t he left as well. ABDOMEN: Obese, soft, nontender. The bowel sounds are normoactive. No organomegaly. EXTREMITIES: Show no edema. Her left foot has a cellulitis, swelling and heat, erythema in the distal half of the foot. The skin is very dry. There are cracks with bleeding in the h eel. Also there is a roughly 1.5 cm to 2 cm open lesion that had been bleeding over the bal l of the foot on the left. NEUROLOGIC: The patient is awake, alert, oriented x3. Her cranial nerves, strength and sen sation seem to be functionally intact. She is said to have peripheral neuropathy with decre ased sensation in the left foot, but I removed the Band-Aid and it did cause considerable d iscomfort for her as I was pulling the Band-Aid off. LABORATORY STUDIES: Laboratory studies done in [place] show a blood sugar 152. BUN 34, c reatinine 1.85, sodium 134, potassium 5.8, chloride 102, bicarbonate 23. White count 16.5, hemoglobin 12.3, hematocrit 39.0, platelets 375,000. IMPRESSION 1. Cellulitis of the left foot. Entry is related to dry skin and an open lesion. 2. Diabetes mellitus type 2. 3. Hyperkalemia, which I believe to be related to a combination of triamterene, Vasotec, a nd probably early type 4 renal tubular acidosis related to her diabetes mellitus. 4. Asthma. 5. Hypertension. 6. Hypothyroidism. 7. Chronic low back pain. 8. Obesity. 9. Candidiasis. 10. Early cellulitis of the right side of the nose and face. 11. Dry skin dermatitis. 12. Renal insufficiency which I suspect is related to medications, most notably the indome thacin. PLAN: I am going to hold her nonsteroidal anti-inflammatory drugs as well as the triamtere ne. I will hold the metformin and glimepiride for now and use sliding scale instead. I thin k vancomycin is a good choice, even though she does have some renal insufficiency and hopef ully will get something on culture. Blood cultures were obtained in [place] and I will cu lture the open lesion. I suspect her potassium will normalize with the Kayexalate and the w ithdrawal of triamterene and nonsteroidals. I expect the patient will do well. DICTATED BY: Lam Harvey MD JOB #: [id number] EXT JOB #:[id number] cc: Noe Gaspar MD <<Signature on File>> Finesse De Leon D001/07/13 1854 < documented in this encounter Plan of Treatment Not on filedocumented as of this encounter Procedures + +--------+ + + + | Procedure Name | Priori | Date/Time | Associated Diagnosis | Comments | | | ty | | | | + +--------+ + + + | XR CHEST PA OR AP | Routin | 01/11/2013 | | Results for this | | | e | 8:30 AM | | procedure are in the | | | | PDT | | results section. | + +--------+ + + + | XR CHEST PA OR AP | Routin | 01/11/2013 | | Results for this | | | e | 8:30 AM | | procedure are in the | | | | PDT | | results section. | + +--------+ + + + | XR CHEST PA OR AP | Routin | 01/11/2013 | | Results for this | | | e | 8:30 AM | | procedure are in the | | | | PDT | | results section. | + +--------+ + + + | XR CHEST PA OR AP | Routin | 01/10/2013 | | Results for this | | | e | 3:18 PM | | procedure are in the | | | | PDT | | results section. | + +--------+ + + + | CBC WITH | Routin | 01/10/2013 | | Results for this | | DIFFERENTIAL | e | 6:58 AM | | procedure are in the | | | | PDT | | results section. | + +--------+ + + + | BASIC METABOLIC | Routin | 01/10/2013 | | Results for this | | PANEL | e | 6:58 AM | | procedure are in the | | | | PDT | | results section. | + +--------+ + + + | CBC WITH | Routin | 01/09/2013 | | Results for this | | DIFFERENTIAL | e | 8:48 AM | | procedure are in the | | | | PDT | | results section. | + +--------+ + + + | VANCOMYCIN, TROUGH | Routin | 01/09/2013 | | Results for this | | | e | 8:48 AM | | procedure are in the | | | | PDT | | results section. | + +--------+ + + + | BASIC METABOLIC | Routin | 01/09/2013 | | Results for this | | PANEL | e | 8:48 AM | | procedure are in the | | | | PDT | | results section. | + +--------+ + + + | CBC WITH | Routin | 01/08/2013 | | Results for this | | DIFFERENTIAL | e | 7:18 AM | | procedure are in the | | | | PDT | | results section. | + +--------+ + + + | C-REACTIVE PROTEIN | Routin | 01/08/2013 | | Results for this | | | e | 7:18 AM | | procedure are in the | | | | PDT | | results section. | + +--------+ + + + | BASIC METABOLIC | Routin | 01/08/2013 | | Results for this | | PANEL | e | 7:18 AM | | procedure are in the | | | | PDT | | results section. | + +--------+ + + + | CBC NO DIFFERENTIAL | Routin | 01/07/2013 | | Results for this | | | e | 1:33 PM | | procedure are in the | | | | PDT | | results section. | + +--------+ + + + | BASIC METABOLIC | Routin | 01/07/2013 | | Results for this | | PANEL | e | 1:33 PM | | procedure are in the | | | | PDT | | results section. | + +--------+ + + + | CULTURE, WOUND, | Routin | 01/07/2013 | | Results for this | | SMEAR | e | 5:10 AM | | procedure are in the | | | | PDT | | results section. | + +--------+ + + + documented in this encounter Results XR Chest PA or AP (01/11/2013 8:30 AM PDT) + + | Specimen | + + | | + + + + + | Narrative | Performed At | + + + | [facility] | [place] | | Department [address] [place] [address] | [facility] | | [ rep [address]] [ rep [facility] | | [facility]] Signed | - IMAGING | | | | | Patient Name: PHOENIX DANGELO Physician: | | | RASC. : 1965 Age: 47 Sex: F Unit #: [id number] | | | Exam Date: 01/10/13 Location: [address] [place] [address] | | | Report #: [id number] Page: | | | %(RAD)RES..mtdd.print.filter("pg") of %(RAD) | | | RES..mtdd.print.filter("tpg") | | | | | | Accession Number: [id number]; [id number]; | | | [id number], [id number], [id number] PICC | | | LINE PLACEMENT CLINICAL HISTORY: COMPARISON: | | | None. FINDINGS: A series of radiographs are acquired | | | during PICC line placement. These show a right approach PICC line. | | | This initially is in the azygos vein. Subsequent images are acquired. | | | They are unable to accurately demonstrate the tip of the PICC line. | | | The patient was subsequently brought to the fluoroscopy | | | suite. Fluoroscopy was utilized to identify the tip of the PICC | | | line. This is deep within the right atrium. The PICC line was | | | retracted by the PICC line nurse, Sakshi. It was then secured. It is | | | just near the cavoatrial junction and ready for use. The | | | lungs on the radiographs are without focal consolidation or large | | | pleural effusion. The cardiac silhouette is mildly prominent, but | | | this is technique related. IMPRESSION: 1. RIGHT | | | APPROACH PICC LINE PLACEMENT NEAR THE CAVOATRIAL JUNCTION READY FOR | | | USE. Dictated Date/Time: 01/10/2013 15:18 Transcribed | | | Date/Time: 01/10/2013 17:07 Imaging Administrator: | | | <<Signature on File>> | | | Campbell | | | Eloise Ocasio MD01/11/13 1032 <Electronically signed by Campbell Navas | | | Amarjit KAPLAN> Campbell Ocasio MD 01/11/13 08 | | | Imaging Administrator: Chantel [id number] | | | | | + + + + + + + + | Performing | Address | City/State/Zipcode | Phone Number | | Organization | | | | + + + + + | [facility] | [address] | [place] | [phone] | | [facility] | | [address] | | | - IMAGING | | | | + + + + + XR Chest PA or AP (01/11/2013 8:30 AM PDT) + + | Specimen | + + | | + + + + + | Narrative | Performed At | + + + | [facility] | [place] | | Department [address] [place] [address] | [facility] | | [ rep [address]] [ rep [facility] | | [facility]] Signed | - IMAGING | | | | | Patient Name: PHOENIX DANGELO Physician: | | | SANDI.01 : 1965 Age: 47 Sex: F Unit #: [id number] | | | Exam Date: 01/10/13 Location: [address] [place] [address] | | | Report #: [id number] Page: | | | %(RAD)RES..mtdd.print.filter("pg") of %(RAD) | | | RES..mtdd.print.filter("tpg") | | | | | | Accession Number: [id number]; [id number]; | | | [id number], [id number], [id number] PICC | | | LINE PLACEMENT CLINICAL HISTORY: COMPARISON: | | | None. FINDINGS: A series of radiographs are acquired | | | during PICC line placement. These show a right approach PICC line. | | | This initially is in the azygos vein. Subsequent images are acquired. | | | They are unable to accurately demonstrate the tip of the PICC line. | | | The patient was subsequently brought to the fluoroscopy | | | suite. Fluoroscopy was utilized to identify the tip of the PICC | | | line. This is deep within the right atrium. The PICC line was | | | retracted by the PICC line nurse, Sakshi. It was then secured. It is | | | just near the cavoatrial junction and ready for use. The | | | lungs on the radiographs are without focal consolidation or large | | | pleural effusion. The cardiac silhouette is mildly prominent, but | | | this is technique related. IMPRESSION: 1. RIGHT | | | APPROACH PICC LINE PLACEMENT NEAR THE CAVOATRIAL JUNCTION READY FOR | | | USE. Dictated Date/Time: 01/10/2013 15:18 Transcribed | | | Date/Time: 01/10/2013 17:07 Imaging Administrator: | | | <<Signature on File>> | | | Campbell | | | Eloise Ocasio MD01/11/13 1032 <Electronically signed by Campbell Navas | | | Amarjit KAPLAN> Campbell Ocasio MD 01/11/13 08 | | | Imaging Administrator: Enjoyornahomi [id number]/17/1330 | | | | | + + + + + + + + | Performing | Address | City/State/Zipcode | Phone Number | | Organization | | | | + + + + + | [facility] | [address] | [place] | [phone] | | [facility] | | [address] | | | - IMAGING | | | | + + + + + XR Chest PA or AP (01/11/2013 8:30 AM PDT) + + | Specimen | + + | | + + + + + | Narrative | Performed At | + + + | [facility] | [place] | | Department [address] [facility] | [facility] | | [ rep ct [address]] [ rep [facility] | | st zip] Signed | - IMAGING | | | | | Patient Name: PHOENIX DANGELO Physician: | | | RASC.01 : 1965 Age: 47 Sex: F Unit #: [id number] | | | Exam Date: 01/10/13 Location: [address] [place] [address] | | | Report #: [id number] Page: | | | %(RAD)RES..mtdd.print.filter("pg") of %(RAD) | | | RES..mtdd.print.filter("tpg") | | | | | | Accession Number: [id number]; [id number]; | | | [id number], [id number] PICC | | | LINE PLACEMENT CLINICAL HISTORY: COMPARISON: | | | None. FINDINGS: A series of radiographs are acquired | | | during PICC line placement. These show a right approach PICC line. | | | This initially is in the azygos vein. Subsequent images are acquired. | | | They are unable to accurately demonstrate the tip of the PICC line. | | | The patient was subsequently brought to the fluoroscopy | | | suite. Fluoroscopy was utilized to identify the tip of the PICC | | | line. This is deep within the right atrium. The PICC line was | | | retracted by the PICC line nurse, Sakshi. It was then secured. It is | | | just near the cavoatrial junction and ready for use. The | | | lungs on the radiographs are without focal consolidation or large | | | pleural effusion. The cardiac silhouette is mildly prominent, but | | | this is technique related. IMPRESSION: 1. RIGHT | | | APPROACH PICC LINE PLACEMENT NEAR THE CAVOATRIAL JUNCTION READY FOR | | | USE. Dictated Date/Time: 01/10/2013 15:18 Transcribed | | | Date/Time: 01/10/2013 17:07 Imaging Administrator: | | | <<Signature on File>> | | | Campbell | | | Eloise Ocasio MD01/11/13 1032 <Electronically signed by Campbell Navas | | | Amarjit KAPLAN> Campbell Ocasio MD 01/11/13 0830 | | | Imaging Administrator: Enjoyornahomi Sjcplqkjapjao21/17/13 0830 | | | | | + + + + + + + + | Performing | Address | City/State/Zipcode | Phone Number | | Organization | | | | + + + + + | [facility] | [address] | [place] | [phone] | | [facility] | | [address] | | | - IMAGING | | | | + + + + + XR Chest PA or AP (01/10/2013 3:18 PM PDT) + + | Specimen | + + | | + + + + + | Narrative | Performed At | + + + | [facility] | [place] | | Department [address] [facility] | [facility] | | [ rep ct [address]] [ rep [facility] | | st zip] Signed | - IMAGING | | | | | Patient Name: PHOENIX DANGELO Physician: | | | YE.01 : 1965 Age: 47 Sex: F Unit #: [id number] | | | Exam Date: 01/10/13 Location: [address] [place] [address] | | | Report #: [id number] Page: | | | %(RAD)RES..mtdd.print.filter("pg") of %(RAD) | | | RES..mtdd.print.filter("tpg") | | | | | | Accession Number: [id number] | | | [id number], [id number] PICC LINE PLACEMENT | | | CLINICAL HISTORY: COMPARISON: None. FINDINGS: | | | A series of radiographs are acquired during PICC line placement. | | | These show a right approach PICC line. This initially is in the | | | azygos vein. Subsequent images are acquired. They are unable to | | | accurately demonstrate the tip of the PICC line. The | | | patient was subsequently brought to the fluoroscopy suite. Fluoroscopy | | | was utilized to identify the tip of the PICC line. This is deep | | | within the right atrium. The PICC line was retracted by the PICC | | | line nurse, Sakshi. It was then secured. It is just near the cavoatrial | | | junction and ready for use. The lungs on the radiographs | | | are without focal consolidation or large pleural effusion. The cardiac | | | silhouette is mildly prominent, but this is technique related. | | | IMPRESSION: 1. RIGHT APPROACH PICC LINE PLACEMENT NEAR THE | | | CAVOATRIAL JUNCTION READY FOR USE. Dictated Date/Time: | | | 01/10/2013 15:18 Transcribed Date/Time: 01/10/2013 17:07 | | | Imaging Administrator: <<Signature on File>> | | | | | | Campbell Ocasio MD01/10/13 0924 <Electronically signed by Campbell Navas | | | Amarjit KAPLAN> Campbell Ocasio MD 01/10/13 1957 | | | Imaging Administrator: Chantel Cutpfpmedwkin50/16/13 [id number] | | | | | + + + + + + + + | Performing | Address | City/State/Zipcode | Phone Number | | Organization | | | | + + + + + | [facility] | [address] | [place], [place] | [phone] | | [facility] | | [address] | | | - IMAGING | | | | + + + + + CBC with Differential (01/10/2013 6:58 AM PDT) + + + + + + | Component | Value | Ref Range | Performed | Pathologist | | | | | At | Signature | + + + + + + | MANUAL | NO | | [facility] | | | [facility] | | | [facility] | | | L ? | | | MEDICAL | | | | | | CENTER - | | | | | | LABORATORY | | + + + + + + | White Blood | 8.0 | 4.0 - 11.0 K/uL | [facility] | | | Cells | | | [facility] | | | | | | MEDICAL | | | | | | CENTER - | | | | | | LABORATORY | | + + + + + + | Red Blood | 3.50 (L) | 3.70 - 5.20 | [facility] | | | Cells | | M/uL | [facility] | | | | | | MEDICAL | | | | | | CENTER - | | | | | | LABORATORY | | + + + + + + | Hemoglobin | 9.8 (L) | 11.5 - 16.0 | [facility] | | | | | gm/dL | [facility] | | | | | | MEDICAL | | | | | | CENTER - | | | | | | LABORATORY | | + + + + + + | Hematocrit | 30.7 (L) | 34.0 - 47.0 % | [facility] | | | | | | [facility] | | | | | | MEDICAL | | | | | | CENTER - | | | | | | LABORATORY | | + + + + + + | MCV | 87.5 | 83.0 - 101.0 fL | [facility] | | | | | | [facility] | | | | | | MEDICAL | | | | | | CENTER - | | | | | | LABORATORY | | + + + + + + | MCH | 28.0 | 28.0 - 35.0 pg | [facility] | | | | | | [facility] | | | | | | MEDICAL | | | | | | CENTER - | | | | | | LABORATORY | | + + + + + + | MCHC | 32.0 | 32.0 - 36.0 | [facility] | | | | | g/dL | [facility] | | | | | | MEDICAL | | | | | | CENTER - | | | | | | LABORATORY | | + + + + + + | RDW-CV | 13.4 | <15.0 % | [facility] | | | | | | [facility] | | | | | | MEDICAL | | | | | | CENTER - | | | | | | LABORATORY | | + + + + + + | Platelet | 267 | 140 - 440 K/uL | [facility] | | | Count | | | [facility] | | | | | | MEDICAL | | | | | | CENTER - | | | | | | LABORATORY | | + + + + + + | % | 50.8 | 45 - 75 % | [facility] | | | Neutrophils | | | [facility] | | | | | | MEDICAL | | | | | | CENTER - | | | | | | LABORATORY | | + + + + + + | % | 34.2 | 20 - 45 % | [facility] | | | Lymphocytes | | | [facility] | | | | | | MEDICAL | | | | | | CENTER - | | | | | | LABORATORY | | + + + + + + | % Monocytes | 8.9 | 4 - 12 % | [facility] | | | | | | [facility] | | | | | | MEDICAL | | | | | | CENTER - | | | | | | LABORATORY | | + + + + + + | % | 4.0 | 0 - 5 % | [facility] | | | Eosinophils | | | [facility] | | | | | | MEDICAL | | | | | | CENTER - | | | | | | LABORATORY | | + + + + + + | % Basophils | 2.1 (H) | 0 - 1 % | [facility] | | | | | | [facility] | | | | | | MEDICAL | | | | | | CENTER - | | | | | | LABORATORY | | + + + + + + | Absolute | 4.1 | 1.5 - 6.6 K/uL | [facility] | | | Neutrophils | | | [facility] | | | | | | MEDICAL | | | | | | CENTER - | | | | | | LABORATORY | | + + + + + + | Absolute | 2.7 | 0.6 - 3.2 K/uL | [facility] | | | Lymphocytes | | | [facility] | | | | | | MEDICAL | | | | | | CENTER - | | | | | | LABORATORY | | + + + + + + | Absolute | 0.7 | 0.0 - 1.0 K/uL | [facility] | | | Monocytes | | | [facility] | | | | | | MEDICAL | | | | | | CENTER - | | | | | | LABORATORY | | + + + + + + | Absolute | 0.3 | 0.0 - 0.4 K/uL | [facility] | | | Eosinophils | | | [facility] | | | | | | MEDICAL | | | | | | CENTER - | | | | | | LABORATORY | | + + + + + + | Absolute | 0.2 (H) | 0.0 - 0.1 K/uL | [facility] | | | Basophils | | | [facility] | | | | | | MEDICAL | | | | | | CENTER - | | | | | | LABORATORY | | + + + + + + + + | Specimen | + + | | + + + + + + + | Performing | Address | City/State/Zipcode | Phone Number | | Organization | | | | + + + + + | [facility] | [address] | [place], [place] | [phone] | | [facility] | | [address] | | | - LABORATORY | | | | + + + + + | [facility] | [address] | [place], [place] | | | [facility] | | [id number] [place] [address] | | | - LABORATORY | | | | + + + + + Basic Metabolic Panel (01/10/2013 6:58 AM PDT) + + + + + + | Component | Value | Ref Range | Performed | Pathologist | | | | | At | Signature | + + + + + + | Glucose | 118 (H) | 70 - 109 mg/dL | [facility] | | | | | | [facility] | | | | | | MEDICAL | | | | | | CENTER - | | | | | | LABORATORY | | + + + + + + | Calcium | 8.4 | 8.3 - 10.5 | [facility] | | | | | mg/dL | [facility] | | | | | | MEDICAL | | | | | | CENTER - | | | | | | LABORATORY | | + + + + + + | BUN | 12 | 7 - 18 mg/dL | [facility] | | | | | [facility] | [facility] | [facility] | | | | | | CENTER - | | | | | | LABORATORY | | + + + + + + | Creatinine | 0.86 | 0.60 - 1.30 | [facility] | | | | | mg/dL | [facility] | | | | | | MEDICAL | | | | | | CENTER - | | | | | | LABORATORY | | + + + + + + | Estimated | >60Comment: For | >60 mL/min/A | [facility] | | | GFR | -Americans, | | [facility] | | | | please multiply the | | MEDICAL | | | | result by 1.210 | | CENTER - | | | | This is an estimated | | LABORATORY | | | | GFR and is based on a | | | | | | standard adult | | | | | | body mass (A=1.73m2) and | | | | | | serum creatinine | | | | + + + + + + | BUN/Creatin | 14.0 | 12 - 20 | [facility] | | | ine Ratio | | | [facility] | | | | | | MEDICAL | | | | | | CENTER - | | | | | | LABORATORY | | + + + + + + | Na | 140 | 136 - 149 mEq/L | [facility] | | | | | | [facility] | | | | | | MEDICAL | | | | | | CENTER - | | | | | | LABORATORY | | + + + + + + | K | 4.3 | 3.5 - 5.1 mEq/l | [facility] | | | | | | [facility] | | | | | | MEDICAL | | | | | | CENTER - | | | | | | LABORATORY | | + + + + + + | Cl | 110 (H) | 98 - 109 mEq/l | [facility] | | | | | | [facility] | | | | | | MEDICAL | | | | | | CENTER - | | | | | | LABORATORY | | + + + + + + | CO2 | 23 (L) | 24 - 31 mEq/L | [facility] | | | | | | [facility] | | | | | | MEDICAL | | | | | | CENTER - | | | | | | LABORATORY | | + + + + + + | Anion Gap | 11.3 | 6.0 - 17.0 | [facility] | | | | | | [facility] | | | | | | MEDICAL | | | | | | CENTER - | | | | | | LABORATORY | | + + + + + + + + | Specimen | + + | | + + + + + + + | Performing | Address | City/State/Zipcode | Phone Number | | Organization | | | | + + + + + | [facility] | [address] | [place], [place] | [phone] | | [facility] | | [address] | | | - LABORATORY | | | | + + + + + | [facility] | [address] | [place], [place] | | | [facility] | | [id number] | | | - LABORATORY | | | | + + + + + CBC with Differential (01/09/2013 8:48 AM PDT) + + + + + + | Component | Value | Ref Range | Performed | Pathologist | | | | | At | Signature | + + + + + + | MANUAL | NO | | [facility] | | | DIFFERENTIA | | | [facility] | | | L ? | | | MEDICAL | | | | | | CENTER - | | | | | | LABORATORY | | + + + + + + | White Blood | 8.7 (A) | 4.0 - 11.0 K/uL | [facility] | | | Cells | | | [facility] | | | | | | MEDICAL | | | | | | CENTER - | | | | | | LABORATORY | | + + + + + + | Red Blood | 3.65 (L) | 3.70 - 5.20 | [facility] | | | Cells | | M/uL | [facility] | | | | | | MEDICAL | | | | | | CENTER - | | | | | | LABORATORY | | + + + + + + | Hemoglobin | 10.2 (L) | 11.5 - 16.0 | [facility] | | | | | gm/dL | [facility] | | | | | | MEDICAL | | | | | | CENTER - | | | | | | LABORATORY | | + + + + + + | Hematocrit | 31.8 (L) | 34.0 - 47.0 % | [facility] | | | | | | [facility] | | | | | | MEDICAL | | | | | | CENTER - | | | | | | LABORATORY | | + + + + + + | MCV | 87.0 | 83.0 - 101.0 fL | [facility] | | | | | | [facility] | | | | | | MEDICAL | | | | | | CENTER - | | | | | | LABORATORY | | + + + + + + | MCH | 27.8 (L) | 28.0 - 35.0 pg | [facility] | | | | | | [facility] | | | | | | MEDICAL | | | | | | CENTER - | | | | | | LABORATORY | | + + + + + + | MCHC | 32.0 | 32.0 - 36.0 | [facility] | | | | | g/dL | [facility] | | | | | | MEDICAL | | | | | | CENTER - | | | | | | LABORATORY | | + + + + + + | RDW-CV | 13.3 | <15.0 % | [facility] | | | | | | [facility] | | | | | | MEDICAL | | | | | | CENTER - | | | | | | LABORATORY | | + + + + + + | Platelet | 254 | 140 - 440 K/uL | [facility] | | | Count | | | [facility] | | | | | | MEDICAL | | | | | | CENTER - | | | | | | LABORATORY | | + + + + + + | % | 58.1 | 45 - 75 % | [facility] | | | Neutrophils | | | [facility] | | | | | | MEDICAL | | | | | | CENTER - | | | | | | LABORATORY | | + + + + + + | % | 26.7 | 20 - 45 % | [facility] | | | Lymphocytes | | | [facility] | | | | | | MEDICAL | | | | | | CENTER - | | | | | | LABORATORY | | + + + + + + | % Monocytes | 9.9 | 4 - 12 % | [facility] | | | | | | [facility] | | | | | | MEDICAL | | | | | | CENTER - | | | | | | LABORATORY | | + + + + + + | % | 4.3 | 0 - 5 % | [facility] | | | Eosinophils | | | [facility] | | | | | | MEDICAL | | | | | | CENTER - | | | | | | LABORATORY | | + + + + + + | % Basophils | 1.0 | 0 - 1 % | [facility] | | | | | | [facility] | | | | | | MEDICAL | | | | | | CENTER - | | | | | | LABORATORY | | + + + + + + | Absolute | 5.1 | 1.5 - 6.6 K/uL | [facility] | | | Neutrophils | | | [facility] | | | | | | MEDICAL | | | | | | CENTER - | | | | | | LABORATORY | | + + + + + + | Absolute | 2.3 | 0.6 - 3.2 K/uL | [facility] | | | Lymphocytes | | | [facility] | | | | | | MEDICAL | | | | | | CENTER - | | | | | | LABORATORY | | + + + + + + | Absolute | 0.9 | 0.0 - 1.0 K/uL | [facility] | | | Monocytes | | | [facility] | | | | | | MEDICAL | | | | | | CENTER - | | | | | | LABORATORY | | + + + + + + | Absolute | 0.4 | 0.0 - 0.4 K/uL | [facility] | | | Eosinophils | | | [facility] | | | | | | MEDICAL | | | | | | CENTER - | | | | | | LABORATORY | | + + + + + + | Absolute | 0.1 | 0.0 - 0.1 K/uL | [facility] | | | Basophils | | | [facility] | | | | | | MEDICAL | | | | | | CENTER - | | | | | | LABORATORY | | + + + + + + + + | Specimen | + + | | + + + + + + + | Performing | Address | City/State/Zipcode | Phone Number | | Organization | | | | + + + + + | [facility] | [address] | [place], [place] | [phone] | | [facility] | | [address] | | | - LABORATORY | | | | + + + + + | [facility] | [address] | [place], [place] | | | [facility] | | [address] [place] [address] | | | - LABORATORY | | | | + + + + + Basic Metabolic Panel (01/09/2013 8:48 AM PDT) + + + + + + | Component | Value | Ref Range | Performed | Pathologist | | | | | At | Signature | + + + + + + | Glucose | 125 (H) | 70 - 109 mg/dL | [facility] | | | | | | [facility] | | | | | | MEDICAL | | | | | | CENTER - | | | | | | LABORATORY | | + + + + + + | Calcium | 8.4 | 8.3 - 10.5 | [facility] | | | | | mg/dL | [facility] | | | | | | MEDICAL | | | | | | CENTER - | | | | | | LABORATORY | | + + + + + + | BUN | 14 | 7 - 18 mg/dL | [facility] | | | | | | [facility] | | | | | | MEDICAL | | | | | | CENTER - | | | | | | LABORATORY | | + + + + + + | Creatinine | 1.06 | 0.60 - 1.30 | [facility] | | | | | mg/dL | [facility] | | | | | | MEDICAL | | | | | | CENTER - | | | | | | LABORATORY | | + + + + + + | Estimated | 56 (L)Comment: For | >60 mL/min/A | [facility] | | | GFR | -Americans, | | [facility] | | | | please multiply the | | MEDICAL | | | | result by 1.210 | | CENTER - | | | | This is an estimated | | LABORATORY | | | | GFR and is based on a | | | | | | standard adult | | | | | | body mass (A=1.73m2) and | | | | | | serum creatinine | | | | + + + + + + | BUN/Creatin | 13.2 | 12 - 20 | [facility] | | | ine Ratio | | | [facility] | | | | | | MEDICAL | | | | | | CENTER - | | | | | | LABORATORY | | + + + + + + | Na | 139 | 136 - 149 mEq/L | [facility] | | | | | | [facility] | | | | | | MEDICAL | | | | | | CENTER - | | | | | | LABORATORY | | + + + + + + | K | 4.1 | 3.5 - 5.1 mEq/l | [facility] | | | | | | [facility] | | | | | | MEDICAL | | | | | | CENTER - | | | | | | LABORATORY | | + + + + + + | Cl | 110 (H) | 98 - 109 mEq/l | [facility] | | | | | | [facility] | | | | | | MEDICAL | | | | | | CENTER - | | | | | | LABORATORY | | + + + + + + | CO2 | 20 (L) | 24 - 31 mEq/L | [facility] | | | | | | [facility] | | | | | | MEDICAL | | | | | | CENTER - | | | | | | LABORATORY | | + + + + + + | Anion Gap | 13.1 | 6.0 - 17.0 | [facility] | | | | | | [facility] | | | | | | MEDICAL | | | | | | CENTER - | | | | | | LABORATORY | | + + + + + + + + | Specimen | + + | | + + + + + + + | Performing | Address | City/State/Zipcode | Phone Number | | Organization | | | | + + + + + | [facility] | [address] | [place], [place] | [phone] | | [facility] | | [address] | | | - LABORATORY | | | | + + + + + | [facility] | [address] | [place], [place] | | | [facility] | | [address], [facility] | | | - LABORATORY | | | | + + + + + Abdiaziz Terrell (01/09/2013 8:48 AM PDT) + + + + + + | Component | Value | Ref Range | Performed | Pathologist | | | | | At | Signature | + + + + + + | Vancomycin | 31.8 ()Comment: | ug/mL | [facility] | | | Trough | | | [facility] | | | | ALERT VALUE | | MEDICAL | | | | DO NOT DISCARD WRITTEN | | CENTER - | | | | DOCUMENTATION. PLACE IN | | LABORATORY | | | | NURSING NOTES Nursing | | | | | | documentation will NOT | | | | | | be included on Summary | | | | | | Report @TELEPHONE | | | | | | NOTIFICATION? Y 01/09/13 | | | | | | @0944 by WRIGPA | | | | | | Clinical Provider | | | | | | notification at Nurses | | | | | | discretion Report | | | | | | by Nursing Staff to | | | | | | Clinical Provider who | | | | | | will act/intervene on | | | | | | this value: Nurse | | | | | | Calling Result: | | | | | | | | | | | | Date/Time: | | | | | | Provider or licensee | | | | | | called: | | | | | | | | | | | | Time Provider | | | | | | called/paged: | | | | | | Time spoke to | | | | | | Provider: | | | | | | OPTIMAL TROUGH | | | | | | VALUE: 10-20 ug/dL | | | | | | ALERT VALUE: | | | | | | greater than 20 ug/dL | | | | | | | | | | + + + + + + + + | Specimen | + + | | + + + + + + + | Performing | Address | City/State/Zipcode | Phone Number | | Organization | | | | + + + + + | [facility] | [address] | [place] | [phone] | | [facility] | | [address] | | | - LABORATORY | | | | + + + + + | [facility] | [address] | [place], [place] | | | [facility] | | [id number] [place] [address] | | | - LABORATORY | | | | + + + + + CBC with Differential (01/08/2013 7:18 AM PDT) + + + + + + | Component | Value | Ref Range | Performed | Pathologist | | | | | At | Signature | + + + + + + | MANUAL | NO | | [facility] | | | DIFFERENTIA | | | [facility] | | | L ? | | | MEDICAL | | | | | | CENTER - | | | | | | LABORATORY | | + + + + + + | White Blood | 13.9 (H) | 4.0 - 11.0 K/uL | [facility] | | | Cells | | | [facility] | | | | | | MEDICAL | | | | | | CENTER - | | | | | | LABORATORY | | + + + + + + | Red Blood | 3.46 (L) | 3.70 - 5.20 | [facility] | | | Cells | | M/uL | [facility] | | | | | | MEDICAL | | | | | | CENTER - | | | | | | LABORATORY | | + + + + + + | Hemoglobin | 9.7 (L) | 11.5 - 16.0 | [facility] | | | | | gm/dL | [facility] | | | | | | MEDICAL | | | | | | CENTER - | | | | | | LABORATORY | | + + + + + + | Hematocrit | 29.7 (L) | 34.0 - 47.0 % | [facility] | | | | | | [facility] | | | | | | MEDICAL | | | | | | CENTER - | | | | | | LABORATORY | | + + + + + + | MCV | 85.9 | 83.0 - 101.0 fL | [facility] | | | | | | [facility] | | | | | | MEDICAL | | | | | | CENTER - | | | | | | LABORATORY | | + + + + + + | MCH | 28.0 | 28.0 - 35.0 pg | [facility] | | | | | | [facility] | | | | | | MEDICAL | | | | | | CENTER - | | | | | | LABORATORY | | + + + + + + | MCHC | 32.6 | 32.0 - 36.0 | [facility] | | | | | g/dL | [facility] | | | | | | MEDICAL | | | | | | CENTER - | | | | | | LABORATORY | | + + + + + + | RDW-CV | 12.9 | <15.0 % | [facility] | | | | | | [facility] | | | | | | MEDICAL | | | | | | CENTER - | | | | | | LABORATORY | | + + + + + + | Platelet | 235 | 140 - 440 K/uL | [facility] | | | Count | | | [facility] | | | | | | MEDICAL | | | | | | CENTER - | | | | | | LABORATORY | | + + + + + + | % | 41.9 (L) | 45 - 82 % | [facility] | | | Neutrophils | | | [facility] | | | | | | MEDICAL | | | | | | CENTER - | | | | | | LABORATORY | | + + + + + + | % | 46.8 (H) | 20 - 45 % | [facility] | | | Lymphocytes | | | [facility] | | | | | | MEDICAL | | | | | | CENTER - | | | | | | LABORATORY | | + + + + + + | % Monocytes | 11.3 | 4 - 12 % | [facility] | | | | | | [facility] | | | | | | MEDICAL | | | | | | CENTER - | | | | | | LABORATORY | | + + + + + + | Absolute | 5.8 | 1.8 - 8.5 K/uL | [facility] | | | Neutrophils | | | [facility] | | | | | | MEDICAL | | | | | | CENTER - | | | | | | LABORATORY | | + + + + + + | Absolute | 6.5 (H) | 0.6 - 3.2 K/uL | [facility] | | | Lymphocytes | | | [facility] | | | | | | MEDICAL | | | | | | CENTER - | | | | | | LABORATORY | | + + + + + + | Absolute | 1.6 (H) | 0.0 - 1.0 K/uL | [facility] | | | Monocytes | | | [facility] | | | | | | MEDICAL | | | | | | CENTER - | | | | | | LABORATORY | | + + + + + + + + | Specimen | + + | | + + + + + + + | Performing | Address | City/State/Zipcode | Phone Number | | Organization | | | | + + + + + | [facility] | [address] | [place] | [phone] | | [facility] | | [address] | | | - LABORATORY | | | | + + + + + | [facility] | [address] | [place] | | | [facility] | | [address], [facility] | | | - LABORATORY | | | | + + + + + Basic Metabolic Panel (01/08/2013 7:18 AM PDT) + + + + + + | Component | Value | Ref Range | Performed | Pathologist | | | | | At | Signature | + + + + + + | Glucose | 118 (H) | 70 - 109 mg/dL | [facility] | | | | | | [facility] | | | | | | MEDICAL | | | | | | CENTER - | | | | | | LABORATORY | | + + + + + + | Calcium | 8.5 | 8.3 - 10.5 | [facility] | | | | | mg/dL | [facility] | | | | | | MEDICAL | | | | | | CENTER - | | | | | | LABORATORY | | + + + + + + | BUN | 15 | 7 - 18 mg/dL | [facility] | | | | | | [facility] | | | | | | MEDICAL | | | | | | CENTER - | | | | | | LABORATORY | | + + + + + + | Creatinine | 1.14 | 0.60 - 1.30 | [facility] | | | | | mg/dL | [facility] | | | | | | MEDICAL | | | | | | CENTER - | | | | | | LABORATORY | | + + + + + + | Estimated | 52 (L)Comment: For | >60 mL/min/A | [facility] | | | GFR | -Americans, | | [facility] | | | | please multiply the | | MEDICAL | | | | result by 1.210 | | CENTER - | | | | This is an estimated | | LABORATORY | | | | GFR and is based on a | | | | | | standard adult | | | | | | body mass (A=1.73m2) and | | | | | | serum creatinine | | | | + + + + + + | BUN/Creatin | 13.2 | 12 - 20 | [facility] | | | ine Ratio | | | [facility] | | | | | | MEDICAL | | | | | | CENTER - | | | | | | LABORATORY | | + + + + + + | Na | 138 | 136 - 149 mEq/L | [facility] | | | | | | [facility] | | | | | | MEDICAL | | | | | | CENTER - | | | | | | LABORATORY | | + + + + + + | K | 4.2 | 3.5 - 5.1 mEq/l | [facility] | | | | | | [facility] | | | | | | MEDICAL | | | | | | CENTER - | | | | | | LABORATORY | | + + + + + + | Cl | 109 | 98 - 109 mEq/l | [facility] | | | | | | [facility] | | | | | | MEDICAL | | | | | | CENTER - | | | | | | LABORATORY | | + + + + + + | CO2 | 20 (L) | 24 - 31 mEq/L | [facility] | | | | | | [facility] | | | | | | MEDICAL | | | | | | CENTER - | | | | | | LABORATORY | | + + + + + + | Anion Gap | 13.2 | 6.0 - 17.0 | [facility] | [facility] | | | | | | MEDICAL | | | | | | CENTER - | | | | | | LABORATORY | | + + + + + + + + | Specimen | + + | | + + + + + + + | Performing | Address | City/State/Zipcode | Phone Number | | Organization | | | | + + + + + | [facility] | [address] | [place], [place] | [phone] | | [facility] | | [id number] | | | - LABORATORY | | | | + + + + + | [facility] | [address] | [place] | | | [facility] | | [address] [place] [address] | | | - LABORATORY | | | | + + + + + C-Reactive Protein (01/08/2013 7:18 AM PDT) + + + + + + | Component | Value | Ref Range | Performed | Pathologist | | | | | At | Signature | + + + + + + | CRP | 58.5 (H)Comment: Levels | <8.0 mg/L | [facility] | | | | >8.0 mg/L indicate | | [facility] | | | | possible infection, | | MEDICAL | | | | trauma, cardiac | | CENTER - | | | | infarct or neoplastic | | LABORATORY | | | | proliferation. | | | | + + + + + + + + | Specimen | + + | | + + + + + + + | Performing | Address | City/State/Zipcode | Phone Number | | Organization | | | | + + + + + | [facility] | [address] | [place], [place] | [phone] | | [facility] | | [id number] | | | - LABORATORY | | | | + + + + + | [facility] | [address] | [place], [place] | | | [facility] | | [id number] | | | - LABORATORY | | | | + + + + + Basic Metabolic Panel (01/07/2013 1:33 PM PDT) + + + + + + | Component | Value | Ref Range | Performed | Pathologist | | | | | At | Signature | + + + + + + | Glucose | 140 (H) | 70 - 109 mg/dL | [facility] | | | | | | [facility] | | | | | | MEDICAL | | | | | | CENTER - | | | | | | LABORATORY | | + + + + + + | Calcium | 8.1 (L) | 8.3 - 10.5 | [facility] | | | | | mg/dL | [facility] | | | | | | MEDICAL | | | | | | CENTER - | | | | | | LABORATORY | | + + + + + + | BUN | 25 (H) | 7 - 18 mg/dL | [facility] | | | | | [facility] | | | | | | MEDICAL | | | | | | CENTER - | | | | | | LABORATORY | | + + + + + + | Creatinine | 1.49 (H) | 0.60 - 1.30 | [facility] | | | | | mg/dL | [facility] | | | | | | MEDICAL | | | | | | CENTER - | | | | | | LABORATORY | | + + + + + + | Estimated | 38 (L)Comment: For | >60 mL/min/A | [facility] | | | GFR | -Americans, | | [facility] | | | | please multiply the | | MEDICAL | | | | result by 1.210 | | CENTER - | | | | This is an estimated | | LABORATORY | | | | GFR and is based on a | | | | | | standard adult | | | | | | body mass (A=1.73m2) and | | | | | | serum creatinine | | | | + + + + + + | BUN/Creatin | 16.8 | 12 - 20 | [facility] | | | ine Ratio | | | [facility] | | | | | | MEDICAL | | | | | | CENTER - | | | | | | LABORATORY | | + + + + + + | Na | 132 (L) | 136 - 149 mEq/L | [facility] | | | | | [facility] | | | | | | MEDICAL | | | | | | CENTER - | | | | | | LABORATORY | | + + + + + + | K | 4.8 | 3.5 - 5.1 mEq/l | [facility] | | | | | | [facility] | | | | | | MEDICAL | | | | | | CENTER - | | | | | | LABORATORY | | + + + + + + | Cl | 105 | 98 - 109 mEq/l | [facility] | | | | | | [facility] | | | | | | MEDICAL | | | | | | CENTER - | | | | | | LABORATORY | | + + + + + + | CO2 | 20 (L) | 24 - 31 mEq/L | [facility] | | | | | | [facility] | | | | | | MEDICAL | | | | | | CENTER - | | | | | | LABORATORY | | + + + + + + | Anion Gap | 11.8 | 6.0 - 17.0 | [facility] | | | | | | [facility] | | | | | | MEDICAL | | | | | | CENTER - | | | | | | LABORATORY | | + + + + + + + + | Specimen | + + | | + + + + + + + | Performing | Address | City/State/Zipcode | Phone Number | | Organization | | | | + + + + + | [facility] | [address] | [place] | [phone] | | [facility] | | [address] | | | - LABORATORY | | | | + + + + + | [facility] | [address] | [place], [place] | | | [facility] | | [address] | | | - LABORATORY | | | | + + + + + CBC no Differential (01/07/2013 1:33 PM PDT) + + + + + + | Component | Value | Ref Range | Performed | Pathologist | | | | | At | Signature | + + + + + + | White Blood | 10.1 | 4.0 - 11.0 K/uL | [facility] | | | Cells | | | [facility] | | | | | | MEDICAL | | | | | | CENTER - | | | | | | LABORATORY | | + + + + + + | Red Blood | 3.70 | 3.70 - 5.20 | [facility] | | | Cells | | M/uL | [facility] | | | | | | MEDICAL | | | | | | CENTER - | | | | | | LABORATORY | | + + + + + + | Hemoglobin | 10.3 (L) | 11.5 - 16.0 | [facility] | | | | | gm/dL | [facility] | | | | | | MEDICAL | | | | | | CENTER - | | | | | | LABORATORY | | + + + + + + | Hematocrit | 32.6 (L) | 34.0 - 47.0 % | [facility] | | | | | | [facility] | | | | | | MEDICAL | | | | | | CENTER - | | | | | | LABORATORY | | + + + + + + | MCV | 88.0 | 83.0 - 101.0 fL | [facility] | | | | | | [facility] | | | | | | MEDICAL | | | | | | CENTER - | | | | | | LABORATORY | | + + + + + + | MCH | 27.7 (L) | 28.0 - 35.0 pg | [facility] | | | | | | [facility] | | | | | | MEDICAL | | | | | | CENTER - | | | | | | LABORATORY | | + + + + + + | MCHC | 31.5 (L) | 32.0 - 36.0 | [facility] | | | | | g/dL | [facility] | | | | | | MEDICAL | | | | | | CENTER - | | | | | | LABORATORY | | + + + + + + | RDW-CV | 13.3 | <15.0 % | [facility] | | | | | | [facility] | | | | | | MEDICAL | | | | | | CENTER - | | | | | | LABORATORY | | + + + + + + | Platelet | 244 | 140 - 440 K/uL | [facility] | | | Count | | | [facility] | | | | | | MEDICAL | | | | | | CENTER - | | | | | | LABORATORY | | + + + + + + + + | Specimen | + + | | + + + + + + + | Performing | Address | City/State/Zipcode | Phone Number | | Organization | | | | + + + + + | [facility] | [address] | [place], [place] | [phone] | | [facility] | | [address] | | | - LABORATORY | | | | + + + + + | [facility] | [address] | [place], [place] | | | [facility] | | [id number] [place] [address] | | | - LABORATORY | | | | + + + + + Culture, Wound, Smear (01/07/2013 5:10 AM PDT) + + + + + + | Component | Value | Ref Range | Performed | Pathologist | | | | | At | Signature | + + + + + + | Culture | RARE WBC/HPFRARE | | [facility] | | | Result | EPITHELIAL | | [facility] | | | | CELLS/HPFMODERATE GRAM | | MEDICAL | | | | POS COCCIComment: | | CENTER - | | | | Penicillin-resistant, | | LABORATORY | | | | oxacillin-susceptible | | | | | | strains are resistant | | | | | | to penicillinase-labile | | | | | | penicillins but | | | | | | susceptible to other | | | | | | penicillinase-stable | | | | | | penicillins, | | | | | | beta-lactam/ | | | | | | beta-lactamase inhibitor | | | | | | combinations, | | | | | | relevant cephems, and | | | | | | carbapenems. | | | | | | Oxacillin-resistant | | | | | | staphylococci are | | | | | | resistant to all | | | | | | currently available | | | | | | Beta-lactam | | | | | | antibiotics. per | | | | | | Clinical and Laboratory | | | | | | Standards [place]ph[place] | | | | | | Rifampin should not be | | | | | | used alone for | | | | | | chemotherapy. | | | | | | Penicillin-resistant, | | | | | | oxacillin-susceptible | | | | | | strains are resistant | | | | | | to penicillinase-labile | | | | | | penicillins but | | | | | | susceptible to other | | | | | | penicillinase-stable | | | | | | penicillins, | | | | | | beta-lactam/ | | | | | | beta-lactamase inhibitor | | | | | | combinations, | | | | | | relevant cephems, and | | | | | | carbapenems. | | | | | | Oxacillin-resistant | | | | | | staphylococci are | | | | | | resistant to all | | | | | | currently available | | | | | | Beta-lactam | | | | | | antibiotics. per | | | | | | Clinical and Laboratory | | | | | | Standards [place] | | | | | | Rifampin should not be | | | | | | used alone for | | | | | | chemotherapy. | | | | + + + + + + + + | Specimen | + + | | + + + + + + + | Performing | Address | City/State/Zipcode | Phone Number | | Organization | | | | + + + + + | [facility] | [address] | [place] | [phone] | | [facility] | | [address] | | | - LABORATORY | | | | + + + + + | [facility] | [address] | [place] | | | [facility] | | [address] [place] [address] | | | - LABORATORY | | | | + + + + + documented in this encounter Visit Diagnoses Not on filedocumented in this encounter
--- OUTSIDE RECORDS SUMMARY | ~2020-02-13 | XMS | Encounter Summary ---
Demographics + + + | Address | [address] | | | [place] [address] | + + + | Home Phone | | + + + | Preferred Language | Unknown | + + + | Marital Status | Legally | + + + | Zoroastrianism Affiliation | Unknown | + + + | Race | White | + + + | Ethnic Group | Not or | + + + Author + + + | Author | [facility] | | | and [place] | + + + | Organization | [facility] | | | [...] Team Providers + +------+ + | Care Doctor Of Nurse Anesthesia Practice Name | Role | Phone | + +------+ + | Roberth Gaspar MD | PCP | | + +------+ + Encounter Details +--------+ + + + + | Date | Type | Department | Care Team | Description | +--------+ + + + + | 09/12/ | Documentati | [facility] | Jarrett, | | | 2019 | on | NEPHROLOGY [place] | [facility] | | | | | [address] | Guitar Player | | | | | [address] | | | | | | [place], [place] | | | | | | [address] | | | | | | [phone] | | | +--------+ + + + [...]
--- OUTSIDE RECORDS SUMMARY | ~2020-02-13 | XMS | Encounter Summary ---
Demographics + + + | Address | [address] | | | [place] [address] | + + + | Home Phone | | + + + | Preferred Language | Unknown | + + + | Marital Status | Legally | + + + | Pentecostal Affiliation | Unknown | + + + | Race | White | + + + | Ethnic Group | Not or | + + + Author + + + | Author | [facility] | | | and [place] | + + + | Organization | [facility] | | [...] Team Providers + +------+ + | Care Still Operator Helper Name | Role | Phone | + +------+ + PCP | Unavailable | + +------+ + Encounter Details +--------+ + + + + | Date | Type | Department | Care Team | Description | +--------+ + + + + | 01/06/ | Emergency | [facility] | Greyson Hernandez, | | | 2012 - | | MEDICAL CENTER | MD [address] | | | | | EMERGENCY CENTER | [place] [address] | | | 01/07/ | | [address] | [phone] | | | 2012 | | [place], [place] | | | | | | [address] | | | | | | [phone] | | | +--------+ + + + [...]
--- OUTSIDE RECORDS SUMMARY | ~2020-02-13 | XMS | Encounter Summary ---
Demographics + + + | Address | [address] | | | [place] [address] | + + + | Home Phone | | + + + | Preferred Language | Unknown | + + + | Marital Status | Legally | + + + | Tenriism Affiliation | Unknown | + + + | Race | White | + + + | Ethnic Group | Not or | + + + Author + + + | Author | [facility] | | | and [place] | + + + | Organization | [facility] | | [...] Team Providers + +------+ + | Care Kettle Girl Name | Role | Phone | + +------+ + | Roberth Gaspar MD | PCP | | + +------+ + Reason for Visit + +--------+ + | Reason | Onset | Comments | | | Date | | + +--------+ + | Medication Refill | 05/18/ | | | | 2016 | | + +--------+ + Encounter Details +--------+ + + + + | Date | Type | Department | Care Team | Description | +--------+ + + + + | 05/18/ | Telephone | [facility] | Oc Mooney, | Medication Refill | | 2017 | | PH[address]SIATRY [address] | MD [address] | | | | | [address] | [place] | | | | | [place] | [address] | | | | | [address] | | | | | | [phone] | | | +--------+ + + + [...] + + documented as of this encounter Miscellaneous Notes Telephone Encounter - Whitney Gaspar - 05/18/2017 3:06 PM PSTPatient states that at this t darien she will contact her PCP about taking over management of this medication. elephone Encounter - Donna Jara, Plant Guide - 05/18/2017 10:26 AM PSTCalled to speak to Petra Dangelo in regards t o refill request. If Petra Dangelo still currently taking medication gabapentin 300 mg a capsules by mouth three times daily ? If Petra Dangelo needs refill she will have to make follow up appointment. If she is not interested in having follow up she may request refill from pcp. Left a voicemail message to call our office back. do cumented in this encounter Plan of Treatment Not on filedocumented as of this encounter Visit Diagnoses Not on filedocumented in this encounter"
--- OUTSIDE RECORDS SUMMARY | ~2020-02-13 | XMS | Encounter Summary ---
Demographics + + + | Address | [address] | | | [place] [address] | + + + | Home Phone | | + + + | Preferred Language | Unknown | + + + | Marital Status | Legally | + + + | Baptist Affiliation | Unknown | + + + | Race | White | + + + | Ethnic Group | Not or | + + + Author + + + | Author | [facility] | | | and [place] | + + + | Organization | [facility] | | [...] Team Providers + +------+ + | Care Transfer Clerk Name | Role | Phone | + [...] + + | 12/06/ | Documentati | [facility] | Leif Kenyon DO | Results (LABS | | 2020 | on | INFECTIOUS DISEASE | [address] | 12/06/2019) | | | | [address] | [place] [address] | | | | | [place], [place] | [phone] | | | | | [address] | | | | | | [phone] | | | +--------+ + + + [...] documented as of this encounter Progress Notes Nelson Rivera, Director Airport Operations - 12/07/2019 4:29 PM PDTLab: MARK, CMP DOS:12/06/2019 Received from:NATHANAEL العراقي Abstracted into [email or web address] and sent to scan: YES Abstracted by: [...]
--- OUTSIDE RECORDS SUMMARY | ~2020-02-13 | XMS | Encounter Summary ---
Demographics + + + | Address | [address] | | | [place] [address] | + + + | Home Phone [...] Author + + + | Author | [facility] | | | and [place] | + + + | Organization | [facility] | | | [...] Team Providers + +------+ + | Care Machine Feeder Raw Stock Name | Role | Phone | + [...] + + | 11/11/ | Telephone | [facility] | Oc Mooney, | Lab Results | | 2017 | | [address]SIATRY [address] | MD [address] | | | | | [address] | [place] | | | | | [place] | [address] | | | | | [address] | | | | | | [phone] | | | +--------+ + + + [...] Miscellaneous Notes Telephone Encounter - Donna Jara, Assistant Professor Of Marine Biology - 11/11/2016 2:[address] [...]
--- OUTSIDE RECORDS SUMMARY | ~2020-02-13 | XMS | Encounter Summary ---
Demographics + + + | Address | [address] | | | [place] [address] | + + + | Home Phone | | + + + | Preferred Language | Unknown | + + + | Marital Status | Legally | + + + | Christian Affiliation | Unknown | + + + | Race | White | + + + | Ethnic Group | Not or | + + + Author + + + | Author | [facility] | | | and [place] | + + + | Organization | [facility] | | [...] Team Providers + +------+ + | Care Hadoop Java Developer Name | Role | Phone | + +------+ + | No, Unknownpcp | PCP | | + +------+ + Encounter Details +--------+ + + + + | Date | Type | Department | Care Team | Description | +--------+ + + + + | 01/07/ | Hospital | [facility] | Mookie Bustamante, | | | 2013 - | Encounter | MED CTR MED ONC | [address] | | | | | [address] [place] | [place] | | | 01/11/ | | [place] [address] | [address] | | | 2012 | | [phone] | | | +--------+ + + + [...] Bustamante MD - 01/11/2013 9:47 [place] [address] Patient Name: PHOENIX DANGELO Provider: Mookie Bustamante MD Unit #: [id number] Location: [address] [place], [place] [address]t #: [id number] : 1965 ADMISSION DATE: 01/07/2013 DISCHARGE DATE: [...] Dr. Harvey. She saw Dr. Castro bose, rubber and pounder, who did beside debridement. He recommended that [...] was to have her go home with [facility]. However, the patient says her father will not allow that. Thus, she will be going to the [facility]. I did speak with Dr. Noe Gaspar on the phone on 01/10/2013. She needs to fol low up with him but she also should have the rubber and pounder to see her and I would say within s ix days. Ideally, you could have the rubber and pounder come to the correction. Check with Dr. Noe Gaspar which rubber and pounder he wants her to see. She has seen a rubber and pounder in the [facility] t. DISPOSITION: The patient to be discharged to the correction in improved condition. DIET: Will be diabetic, low fat, low cholesterol. She should work with physical therapy and if you have a wound care nurse as well. She can ambulate but I would have her minimize pressure on her right forefoot where she has the the [facility] er. CODE STATUS: FULL CODE. MEDICATIONS 1. [...] Hypoglycemia protocol. We have one here but correction might have one but we include d ours. Glucoscans before meals. Again, she needs close followup with Dr. Noe Gaspar as well as contact Dr. Noe Jara [facility] office for which rubber and pounder to see and ideally the rubber and pounder should start seeing he r at the correction and have your wound care team see her as well in the correction. Time of discharge more than 30 minutes. DICTATED BY: Mookie Bustamante MD Internal Medicine JOB #: [id number] EXT JOB #:[id number] cc: Dr Noe Gaspar in [facility] <<Signature on File>> Mookie Bustamante MD0 01/13/13 0536 <Electronically signed by Mookie Bustamante MD> documented in this encounter H&P Notes Provider Not, In System - 01/07/2013 4:10 [place] [address] Patient Name: DANICAPHOENIX Provider: Lam Harvey MD Unit #: [id number] Location: [facility] : 1965 DATE: 01/07/2013 CHIEF COMPLAINT: Swollen foot. HISTORY OF PRESENT ILLNESS: Ms. Dangelo is a 47-year-old white female followed by Dr. Rick darnell in [place] who has diabetes mellitus type 2 and [...] she went to the emergency department in [facility] she was found to have a significant cellulitis, was given vancomycin and was transferred to [place] primarily because of some hyperkalemia and some [...] off. LABORATORY STUDIES: Laboratory studies done in [place] show a blood sugar 152. BUN 34, [...] on culture. Blood cultures were obtained in [place] and I will cu lture the open lesion. I suspect her potassium will normalize with the Kayexalate and the w ithdrawal of triamterene and nonsteroidals. I expect the patient will do well. DICTATED BY: Lam Harvey MD JOB #: [id number] EXT JOB #:[id number] cc: Noe Gaspar MD <<Signature on File>> [...] Performed At | + + + | [facility] | [facility] | | Department [address] [place] [address] | [facility] | | [ rep [address]] [ rep [facility] | | [facility]] Signed | - IMAGING | | | | | Patient Name: PHOENIX DANGELO Physician: | | | RASC. : 1965 Age: 47 Sex: F Unit #: [id number] | | | Exam Date: 01/10/13 Location: [address] [place] [address] | | | Report #: [id number] Page: | | | %(RAD)RES..mtdd.print.filter("pg") of %(RAD) | | | RES..mtdd.print.filter("tpg") | | | | | | Accession Number: [id number]; [id number]; | | | [id number], [id number], [id number] PICC | | | LINE PLACEMENT CLINICAL [...] Transcribed | | | Date/Time: 01/10/2013 17:07 Foundry Hand: | | | <<Signature on File>> | | | Campbell | | | Eloise Ocasio MD01/11/13 1032 <Electronically signed by Campbell Navas | | | Amarjit KAPLAN> Campbell Ocasio MD 01/11/13 08 | | | Foundry Hand: Chantel Vsuazmlroqymq83/17/13829 | | | | | + + + + + + + + | Performing | Address | City/State/Zipcode | Phone Number | | Organization | | | | + + + + + | [facility] | [address] | [place] | [phone] | | [facility] | | [address] | | | - IMAGING | | | | + + + + + XR Chest PA or AP (01/11/2013 8:30 AM PDT) + + | Specimen | + + | | + + + + + | Narrative | Performed At | + + + | [facility] | [facility] | | Department [address] [place] [address] | [facility] | | [ rep [address]] [ rep [facility] | | [facility]] Signed | - IMAGING | | | | | Patient Name: PHOENIX DANGELO Physician: | | | SANDI.01 : 1965 Age: 47 Sex: F Unit #: [id number] | | | Exam Date: 01/10/13 Location: [address] [place] [address] | | | Report #: [id number] Page: | | | %(RAD)RES..mtdd.print.filter("pg") of %(RAD) | | | RES..mtdd.print.filter("tpg") | | | | | | Accession Number: [id number]; [id number]; | | | [id number], [id number], [id number], [id number] PICC | | | LINE PLACEMENT CLINICAL [...] Transcribed | | | Date/Time: 01/10/2013 17:07 Foundry Hand: | | | <<Signature on File>> | | | Campbell | | | Eloise Ocasio MD01/11/13 1032 <Electronically signed by Campbell Navas | | | Amarjit KAPLAN> Campbell Ocasio MD 01/11/13 08 | | | [facility]: [facility] Ecqrgxywhwfem18/17/1330 | | | | | + + + + + + + + | Performing | Address | City/State/Zipcode | Phone Number | | Organization | | | | + + + + + | [facility] | [address] | [place] | [phone] | | [facility] | | [address] | | | - IMAGING | | | | + + + + + XR Chest PA or AP (01/11/2013 8:30 AM PDT) + + | Specimen | + + | | + + + + + | Narrative | Performed At | + + + | [facility] | [facility] | | Department [address] [facility] | [facility] | | [ rep ct [address]] [ rep [facility] | | st zip] Signed | - IMAGING | | | | | Patient Name: PHOENIX DANGELO Physician: | | | RASC.01 : 1965 Age: 47 Sex: F Unit #: [id number] | | | Exam Date: 01/10/13 Location: [address] [place] [address] | | | Report #: [id number] Page: | | | %(RAD)RES..mtdd.print.filter("pg") of %(RAD) | | | RES..mtdd.print.filter("tpg") | | | | | | Accession Number: [id number]; [id number]; | | | [id number], [id number], [id number], [id number] PICC | | | LINE PLACEMENT CLINICAL [...] Transcribed | | | Date/Time: 01/10/2013 17:07 Foundry Hand: | | | <<Signature on File>> | | | Campbell | | | Eloise Ocasio MD01/11/13 1032 <Electronically signed by Campbell Navas | | | Amarjit KAPLAN> Campbell Ocasio MD 01/11/13 0830 | | | [facility]: [facility] Mkfveyxuqphut25/17/13 0830 | | | | | + + + + + + + + | Performing | Address | City/State/Zipcode | Phone Number | | Organization | | | | + + + + + | [facility] | [address] | [place] | [phone] | | [facility] | | [address] | | | - IMAGING | | | | + + + + + XR Chest PA or AP (01/10/2013 3:18 PM PDT) + + | Specimen | + + | | + + + + + | Narrative | Performed At | + + + | [facility] | [facility] | | Department [address] [facility] | [facility] | | [ rep ct [address]] [ rep [facility] | | st zip] Signed | - IMAGING | | | | | Patient Name: PHOENIX DANGELO Physician: | | | YE.01 : 1965 Age: 47 Sex: F Unit #: [id number] | | | Exam Date: 01/10/13 Location: [address] [place] [address] | | | Report #: [id number] Page: | | | %(RAD)RES..mtdd.print.filter("pg") of %(RAD) | | | RES..mtdd.print.filter("tpg") | | | | | | Accession Number: [id number] | | | [id number], [id number], [id number], [id number] PICC LINE PLACEMENT | | | CLINICAL [...] Transcribed Date/Time: 01/10/2013 17:07 | | | Foundry Hand: <<Signature on File>> | | | | | | Campbell Ocasio MD01/10/13 4845 <Electronically signed by Campbell Navas | | | Amarjit KAPLAN> Campbell Ocasio MD 01/10/13 7591 | | | Foundry Hand: Chantel Pvvwjvxklbudx69/16/13 0486 | | | | | + + + + + + + + | Performing | Address | City/State/Zipcode | Phone Number | | Organization | | | | + + + + + | [facility] | [address] | [place], [place] | [phone] | | [facility] | | [address] | | | - IMAGING | | [...] + | [facility] | [address] | [place], [place] | [phone] | | [facility] | | [address] | | | - LABORATORY | | | | + + + + + | [facility] | [address] | [place], [place] | | | [facility] | | [id number] [place] [address] | | | - LABORATORY | | [...] | 0.86 | 0.60 - 1.30 | [facility] | | | | | mg/dL | [facility] | | | | | | MEDICAL | | | | | | CENTER - | | | | | | LABORATORY | | + + + + + + | Estimated | >60Comment: For | >60 mL/min/A | [facility] | | | GFR | -Americans, | [...] + | [facility] | [address] | [place], [place] | [phone] | | [facility] | | [address] | | | - LABORATORY | | | | + + + + + | [facility] | [address] | [place], [place] | | | [facility] | | [id number] | | | - LABORATORY | [...] + | [facility] | [address] | [place], [place] | [phone] | | [facility] | | [address] | | | - LABORATORY | | | | + + + + + | [facility] | [address] | [place], [place] | | | [facility] | | [address] [place] [address] | | | - LABORATORY | | [...] + | [facility] | [address] | [place], [place] | [phone] | | [facility] | | [address] | | | - LABORATORY | | | | + + + + + | [facility] | [address] | [place], [place] | | | [facility] | | [address], [facility] | | | - LABORATORY | [...] + | [facility] | [address] | [place] | [phone] | | [facility] | | [address] | | | - LABORATORY | | | | + + + + + | [facility] | [address] | [place], [place] | | | [facility] | | [id number] [place] [address] | | | - LABORATORY | | [...] | | | | | | [facility] | | | | | | MEDICAL [...] [address] | [place] | [phone] | | [facility] | | [address] | | | - LABORATORY | | | | + + + + + | [facility] | [address] | [place] | | | [facility] | | [address], [facility] | | | - LABORATORY | [...] + | [facility] | [address] | [place], [place] | [phone] | | [facility] | | [address] | | | - LABORATORY | | | | + + + + + | [facility] | [address] | [place] | | | [facility] | | [address] [place] [address] | | | - LABORATORY | | [...] + | [facility] | [address] | [place], [place] | [phone] | | [facility] | | [address] | | | - LABORATORY | | | | + + + + + | [facility] | [address] | [place], [place] | | | [facility] | | [address] | | | - LABORATORY | [...] [address] | [place] | [phone] | | [facility] | | [address] | | | - LABORATORY | | | | + + + + + | [facility] | [address] | [place], [place] | | | [facility] | | [address] | | | - LABORATORY | [...] + | [facility] | [address] | [place], [place] | [phone] | | [facility] | | [address] | | | - LABORATORY | | | | + + + + + | [facility] | [address] | [place], [place] | | | [facility] | | [id number] [place] [address] | | | - LABORATORY | | [...] | | | | | | Standards Sulligent | | | | | | Rifampin [...] | | | | | | Standards Sulligent | | | | | | Rifampin [...] + | [facility] | [address] | [place] | [phone] | | [facility] | | [address] | | | - LABORATORY | | | | + + + + + | [facility] | [address] | [place] | | | [facility] | | [address] [place] [address] | | | - LABORATORY | | | | + + + + + documented in this encounter Visit Diagnoses Not on filedocumented in this encounter
--- OUTSIDE RECORDS SUMMARY | ~2020-02-13 | XMS | Encounter Summary ---
Demographics + + + | Address | [address] | | | [place] [address] | + + + | Home Phone | | + + + | Preferred Language | Unknown | + + + | Marital Status | Legally | + + + | Shinto Affiliation | Unknown | + + + [...] Team Providers + +------+ + | Care Resident Buyer Name | Role | Phone | + [...] + + | 11/20/ | Hospital | [facility] | María Elena Blas, | Anemia of chronic | | 2020 - | Encounter | [facility] | [address] | disease; Chronic | | | | [address] | [place] [address] | pain syndrome; CKD | | 11/28/ | | [place], [place] | [phone] | (chronic kidney | | 2019 | | [address] | | disease), stage III | | | | [phone] | Charlene Rao DO | ([facility]); Empyema of | | | | | [address] | pleural space ([facility]); | | | | | [place] [address] | Essential | | | | | [phone] | hypertension, | | | | | | benign; Pneumonia of | | | | | Fredrick Rubin | right lower lobe | | | | | MD Eliose [address] | due to methicillin | | | | | BL[address] [place], [place] | resistant | | | | | [address] | Staphylococcus | | | | | | aureus (MRSA) ([facility]); | | | | | Sanaz Vásquez, | Type 2 diabetes | | | | | [address] | mellitus 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, without | | | | | | long-term current | | | | | Romario Rodrigez MD | use of insulin | | | | | [address] | ([facility]); Pulmonary | | | | | [place] [address] | nodules; | | | | | [phone] | Thrombocytosis | | | | | | ([facility]); Loculated | | | | | | pleural effusion; | | | | | | EVA (acute kidney | | | | | | injury) ([facility]); | | | | | | Sepsis, due to | | | | | | unspecified | | | | | | organism, | | | | | | unspecified whether | | | | | | acute organ | | | | | | dysfunction present | | | | | | ([facility]); Chronic | | | | | | obstructive | | | | | | pulmonary disease, | | | | | | unspecified COPD | | | | | | type ([facility]); Weakness | | | | | | [...] effusion. The patient was initially admitted to [facility] on 11/11/2019 due to fever, dyspne a, [...] of empyema. The patient was transferred to [facility] for further workup. Interventional radio logy [...] who recommended SNF. Patient was accepted to [facility] swing bed with plan to complete IV ceftaroline until December 08, 2019 . Case was discussed with the accepting physician at [facility]. Discharge Exam and Data: Vital Signs: BP [...] Value Units Date/Time Culture, Body Fluid Sterile [[id number]] Collected: 11/23/19 1055 Order Status: Completed Lab Status: Final result Updated: 11/27/19 0657 Specimen: Body Fluid from Abscess Gram Stain Result NO CELLS OR ORGANISMS SEEN RESULT NO GROWTH 4 DAYS RESULT Testing performed at [facility], [address] [place] [address] Comment: Testing performed at [facility], [address] [place] [address] Clostridium difficile A and B EIA [[id number]] Order Status: Canceled Lab Status: No result [...] analysis per the clinician's orders. A 12 Solomon Islander locking pigtail catheter is placed. Signed by: [...] December 08, 2019 Discharge Information: Follow up: [facility] INFECTIOUS DISEASE [address] [facility] [address] On 12/07/2019 follow up infection/pneumonia Remi Talley MD [address] [address] Schedule an appointment as soon as possible [...] might be di fferent from the original. [facility] Service: Hospitalist Progress Note Pt: Phoenix Dangelo AGE/SEX: 54 y.o. female ROOM: 9101/9101-01 : 1965 PCP: Remi Talley MD ADMIT DATE: 11/21/2019 TODAY'S DATE: 11/28/2019 Hospital Day/Hospital Course: LOS: [address] Rubin "Patient is a 54 year old female with past medical history of HTN, HLD, DM Type 2, COPD and Chronic Pain who was first admitted at [facility] on11/11/19due to dyspnea and fevers.Her labs showed [...] suggestive of empyema.She was then transferred to [facility] for CT Surgery evaluation. She was seen [...] hours. No results for input(s): PHART, PO2ART, [id number], [id number], BEART in the last 168 hours. Recent [...] analysis per the clinician's orders. A 12 Solomon Islander locking pigtail catheter is placed. Signed by: [...] and managing patient and counseling/coordination. Dictation software, [employer], used which may contain error for similar [...] this note might be different from the [facility] Service: Infectious Disease Progress Note Hospital Day: [...] planning ongoing with plan for discharge to [facility] swing bed. Scheduled Medications ascorbic acid 500 [...] Psychiatric: Appropriate mood and affect PICC at [facility] DATA Recent Results (from the past 24 [...] analysis per the clinician's orders. A 12 Solomon Islander locking pigtail catheter is placed. Signed by: [...] analysis per the clinician's orders. A 12 Solomon Islander locking pigtail catheter is placed. Signed by: [...] M D - 11/27/2019 10:18 AM PDT [facility] Service: Infectious Disease Progress Note Hospital [...] Psychiatric: Appropriate mood and affect PICC at [facility] DATA Recent Results (from the past 24 [...] Chronic Pain who was first admitted at [facility] on 11/11/19 due to dyspnea an d [...] empyema . She was then transferred to [facility] for CT Surgery evaluation. She was seen [...] diagnosed with Pneumonia and admit brandyn at [facility] requiring IV antibiotics. She improved but then [...] then she will need rehab preferably at [facility] Swing Bed Program for IV antibiotics. [...] in another 1 to 2 days to [facility] in [facility] or when st able and cleared by [...] Chronic Pain who was first admitted at [facility] on 11/11/19 due to dyspnea an d [...] empyema . She was then transferred to [facility] for CT Surgery evaluation. She was seen [...] diagnosed with Pneumonia and admit brandyn at [facility] requiring IV antibiotics. She improved but then [...] PICC line will be placed soon for backup administrative coordinator antibiotics. Anemia of Chronic Disease with Vitamin [...] in another 2 to [address] [facility] in [place] [facility] or when st able and improved and cleared by ID and IR services. Fredrick Rubin MD 11/26/2019 avithra, Abi hannah MD - 11/25/2019 2:11 PM PDTFormatting of this note might be different from the [facility] Service: Infectious Disease Progress Note Hospital Day: [...] Lovenox. Eventual plan to Swing bed at [facility] in [place]. ? Wednesday or Wednesday. Sanaz Vásquez MD [...] analysis per the clinician's orders. A 12 Solomon Islander locking pigtail catheter is placed. Signed by: [...] might be different from the or iginal. [facility] Service: Infectious Disease Progress Note Hospital [...] SEEN Gram Stain Result Testing performed at [facility], [address] [place] [address] RESULT PENDING POC Glucose Collection Time: 11/23/19 [...] THIS TIME P RESULT Testing performed at [facility], [address] [place] [address] P Comment: Testing performed at [facility], [address] [place] [address] Resulting Agency [facility] Specimen Collected: 11/23/19 10:55 Last Resulted: 11/24/19 [...] Status: Full Code Alana Arshad MD 11/24/2019 Anita Killian MD - 11/24/2019 7:33 AM PDTFormatting [...] Chronic Pain who was first admitted at [facility] on 11/11/19 due to dyspnea an d [...] empyema . She was then transferred to [facility] for CT Surgery evaluation. She was seen [...] Medications Current Facilty-Administered PRN Medications Ordered in [facility] Medication Dose Route Frequency Provider Last Rate [...] mg 100 mg Oral BID PRN María Eelna Blas MD HYDROmorphone (DILAUDID) injection 0.5-1 mg [...] SEEN Gram Stain Result Testing performed at [facility], [address] [place] [address] RESULT PENDING POC Glucose Result Value Ref [...] nephropathy, without long-term current use of insu roys Cyanocobalamin deficiency Hypothyroidism Thrombocytosis COPD (chronic obstructive [...] diagnosed with Pneumonia and a dmitted at [facility] requiring IV antibiotics. She improved but then [...] another 2 to [address] [facility] in [place] or when stable [...] the following patient-specific PK parameters. Ke = 0.31275 1/hr T1/2 = 21 hours Estimated time [...] you for your referral. Patricia Macedo RN 1300: We are not contracted with this [facility] OR plan, CM notified.Electronically sosa d by [...] Chronic Pain who was first admitted at [facility] on 11/11/19 due to dyspnea an d [...] empyema . She was then transferred to [facility] for CT Surgery evaluation. Events Overnight: Patient [...] diagnosed with Pneumonia and a dmitted at [facility] requiring IV antibiotics. She improved but then [...] this note might be different from the [facility] Service: Infectious Disease Progress Note Hospital Day: [...] might be different from the haritha robbins [facility] Adult Hospitalist Progress Note Hospital Day: 1 HPI SUMMARY: Mrs. Dangelo is a 54 yo F with PMHx of DM2, chronic pain, COPD who presented to [facility] on 11/11/19 with SOB and fevers. [...] suggestive of empyema. Patient transferr ed to [facility] for CT Surgery consultation. CT Surgery was [...] might be different from the origi nal. [facility] Service: Hospitalist Admission History & Physical Date [...] Patient came as a direct admit from [facility] for right-sided empyema. This patient was admitted to [facility] on November 11, 2019 with chief complaint [...] 22,000. Metabolic parameters were within normal [facility]. She was continued on oral doxycycline. She [...] of empyema. So patient was transferred for [facility] othoracic surgery consultation here. Today she [...] GALLBLADDER SURGERY 1997 [facility] SINUS SURGERY 1998 [facility] Medications Prior to Admission Medication Sig Dispense [...] file Gets together: Not on file Attends taoism service: Not on file Active member of [...] on file Social History Narrative Lives in [place] with her brother and father, independent with [...] PDTAssociated Order(s): PROVIDER TO PROVIDER C ONSULT [facility] Service: Infectious Diseases Initial Consult Note Date of Admission: 11/21/2019 Reason for Consultation: Advice on antibiotics for right lower lobe MRSA pneumonia, suspect ed empyema Requesting Physician: Dr. Rhonda Blas, Hospitalist History Obtained From: Patient, Chart review and Referring MD CHIEF COMPLAINT: Transferred from [facility] for further care of parapneumonic effusio n, [...] the past. The patient was admitted at [facility] on 11/11/2019 for shortness of breath o [...] 11/16 on p.o. doxycycline [facility]. The patient returned to the emergency room within a few hours of discharge for worsening sy mptoms. Chest x-ray showed right-sided pleural effusion. On readmission, the patient's WBC was 22,000. She was continued on p.o. doxycycline. She was described as having nonproduct fernando cough, episodic dyspnea and having no fevers. WBC ranged from 18-20,000. On 11/[facility] t [facility] scan showed loculated right [...] given 2 g of IV vancomycin at [facility] and then transferred to [facility] for CT surgery evaluation. On presentation at [facility] on 11/20, she was described as having [...] Left 2000 Dr. Anguiano GALLBLADDER SURGERY 1997 [facility] SINUS SURGERY 1998 [facility] Allergies Allergen Reactions Penicillins Shortness Of Breath [...] activity: Never Social History Narrative Lives in [place] with her brother and father, independent with [...] note might be different from the original. [facility] Cardiothoracic Surgery CONSULTATION NOTE Pt. Name/Age/: Phoenix [...] chronic pain syndrome. Patient was admitted to [facility] on November 11, 2019 wit h chief [...] Left 2000 Dr. Anguiano GALLBLADDER SURGERY 1997 [facility] SINUS SURGERY 1998 [facility] Allergies: Allergies Allergen Reactions Penicillins Shortness Of [...] file Gets together: Not on file Attends taoism service: Not on file Active member of [...] on file Social History Narrative Lives in [place] with her brother and father, independent with [...] signed by: PETER Britt 11/22/2019 7:12 AM [facility] Associated attestation - Akhil Walden MD - [...] Integrity Outcome: Met Pt to discharge to [facility] bed. To leave PICC line in for continued antibiotic treatment. Report called to nurse Limon. All questions answered. D/C per taxi at 1400. E lectronically signed by Bev Rico RN at 11/29/2019 2:01 PM PDTPlan of Jef Celestin MSW - 11/29/2019 1:02 PM PDTCare Management SNF/LTACH Final Discharge Plan Readmission Risk: Medium Discharge Plan Planned Disposition: Swing bed Planned Destination: [facility] Swing [facility] of Choice: YES Facility Information: Address: [address] [place] [address] Community Care Provider: Dr. Romero Patient/Family Notified: yes Transportation will be provided by: taxi, other (comment)([employer] - [phone]) Transportation Date/Time: taxi, other (comment)([employer] - [phone]) 1400 Ride Contact: Name: [employer] [phone] Phone: [facility] [phone] Confirmed 3 Qualifying Midnights: yes SNF Authorization Received: yes Benefits and Co-Pays: none at this time - already obtained Primitive Makeup Authorization PASRR Completed: yes Electronically signed: KOREY CASTRO 11/29/2019 1:02 PM lan of Jef Green MSW - 11/29/2019 8:34 AM PDTDISCHARGE PLANNING HOSPITALITY ASSOCIATE p/c msg with Anthony Davison, Admissions at [facility] Bed ([phone] ph, fax) regarding status of insurance authorization from [facility], with hopes of obtaining it this morning to discharge today. HOSPITALITY ASSOCIATE p/c msg with Debra Combs, Admissions at [facility] Bed ph). HOSPITALITY ASSOCIATE p/c with Debra Combs, Admissions at Swing Bed ([phone] ph) states their census went high last night and unable to accept this Pt today. HOSPITALITY ASSOCIATE met with Pt regarding this update about [place] and Pt states her preference is now (a) [facility] Swing Bed. and (b) [facility] [place]. HOSPITALITY ASSOCIATE p/c left msg with Rhondi, admissions at [facility] [place] regarding ref erral, HOSPITALITY ASSOCIATE p/c with Taisha Michael, [facility] Swing Bed Program, states will consider Pt , reviewing referral. States they have open beds, and we already have insurance auth from [facility] [employer] [facility] [phone] ph. HOSPITALITY ASSOCIATE p/c with Rhondi with [facility], states they already have insurance auth f rom [facility] [phone] ph, DCP: Pending placement at [facility] Swing Bed Program. If Pt goes to [facility] Swing Bed, Pt will need transportation from [employer] [phone], they often ask for 24 hrs Avoidable days documented for delay with insurance authorization for [facility]. KOREY CASTRO [phone] cell lan of Care - Jonathon Lu, PT - 11/29/2019 7:32 AM PDT Physical Therapy Treatment Note Recommended discharge [facility] Post discharge physical therapy recommendation: will [...] Device: none Supine to Sit, Level of Converse: modified independent Safety Issues: decreased use of legs for bridging/pushing Transfers Additional Documentation: sit to/from stand Sit-Stand, Level of Converse: contact guard assist Stand-Sit, Level of Converse: contact guard assist [id number], Assistive Device: 4 wheeled walker (4WW) Impairments: impaired balance Gait Level of Converse: contact guard assist Assistive Device: 4 wheeled walker (4WW) Distance (feet): 50 x 2 Impairments: impaired balance Goals Reflects last filed data and may be from multiple contributors. Gait Goal Most Recent Value LTG Status not met, continued at 11/29/2019 0732 LTG Converse Level modified independent at 11/29/2019 0732 LTG Assistive Device cane (straight, single point) at 11/29/2019 0732 LTG Distance (feet) 150 at 11/29/2019 0732 Stair Goal Most Recent Value LTG Status not met, continued at 11/29/2019 0732 LTG [place] Level stand by assist at 11/29/2019 0732 [...] Physical Therapy Treatment Note Recommended discharge disposition: [place] [facility] Post discharge physical therapy recommendation: home [...] fatigues quickly. Encouraged pt. to ambulate with nursing staffing coordinator multiple times throughout the day. Precautions Precautions/Limitations: falls Transfers Additional Documentation: sit to/from stand Sit-Stand, Level of Converse: contact guard assist Stand-Sit, Level of Converse: contact guard assist [id number], Assistive Device: 4 wheeled walker (4WW) Impairments: impaired balance Gait Level of Converse: contact guard assist Assistive Device: 4 wheeled walker (4WW) Distance (feet): 40 x 2 Additional Documentation: safety, impairments Impairments: impaired balance Goals Reflects last filed data and may be from multiple contributors. Gait Goal Most Recent Value LTG [place] Level modified independent at 11/22/2019 1045 LTG Assistive Device cane (straight, single point) at 11/22/2019 1045 LTG Distance (feet) 150 at 11/22/2019 1045 Stair Goal Most Recent Value LTG Con[place] Level stand by assist at 11/22/2019 1045 [...] Rodrigez MD Transferring Medical Center: Receiving Facility: [facility] Provider after Transfer: PCP NURSE ASSESSMENT Recent [...] Follow-Up Appointments House provider in 3-5 days [facility] INFECTIOUS DISEASE [address] [facility] [address] On 12/07/2019 follow up infection/pneumonia Remi Talley MD [address] [phone] Schedule an appointment as soon as possible for a visit in 1 week hospital follow up Certification I certify that the following level of post-hospital care is medically necessary on a contin uing basis for any of the conditions for which she received care during this hospitalization : Skilled ([facility] with 24-hour skilled RN service) Physician [...] MSW - 11/28/2019 11:29 AM PDTDISCHARGE PLANNING HOSPITALITY ASSOCIATE p/c with Anthony Saman, Admissions at [facility] ([phone] ph, fax) states they want to accept this patient back to their hospital, states they a re awaiting for insurance authorization from [facility] Medicaid, states this usuall y takes about 24 hours, states this has been already started. DCP: Pending at [facility] [place] - Awaiting for insurance authoriza tion Avoidable days documented for delay with insurance authorization for [facility] Med icaid. Anticipated discharge on 11/28 KOREY CASTRO [phone] cell lan of Regla - Renetta Giang [...] MSW - 11/27/2019 3:26 PM PDTDISCHARGE PLANNING HOSPITALITY ASSOCIATE p/c with Debra Combs, admissions at [facility], states their physician Leif Richards DO is currently reviewing the incomplete notes from Gas[facility] Erickson. [facility] at [phone] will provide transportation. DCP: Pending at [facility] KOREY CASTRO [phone] cell lan of Renetta Junior RN - [...] check complete. Adriana Mcnulty RN lan of [facility] - Sakshi Quiñonez cia, RN - 11/26/2019 [...] call light appropriately. A M PDTPlan of [facility] - Adriana Mcnulty RN - 11/25/2019 5:39 [...] ing Next Steps: CM sent referral to [facility] Community Support Services Current Outpt/Agency/Support Groups: none [...] home. PT evaluation recommend s Home health, [facility] referral sent and following for discharge If needed. Pt currently on I VAB. Per , Pt IVAB to change to Ceftaroline, for a duration of 2-3 weeks. Pt's in surance not covered by [facility] or [facility]. CM sent referral to [facility] for placement, will need to follow up with updated ID notes from today 0. Likely no other CM needs from Case Management at this time. CM will continue to follow fo r discharge planning, pending clinical course. Electronically signed: Tala Shetty RN 11/24/2019 11:55 AM lan of [facility] - Carl Yina A, EMT PARAMEDIC - 11/24/2019 10:05 AM PDT Physical Therapy [...] bed rails Supine to Sit, Level of Converse: modified independent Sit to Supine, Level of Converse: modified independent Transfers Additional Documentation: sit to/from stand Sit-Stand, Level of Converse: stand by assist Stand-Sit, Level of Converse: stand by assist [id number], Assistive Device: 2 wheeled walker (FWW) Impairments: impaired balance Gait Level of Converse: contact guard assist Assistive Device: 2 wheeled walker (FWW) Distance (feet): 2x40 Additional Documentation: safety, impairments Impairments: impaired balance Balance Sitting Balance: Static: good balance Sitting Balance: Dynamic: good balance Standing Balance: Static: good balance Standing Balance: Dynamic: fair balance Goals Reflects last filed data and may be from multiple contributors. Gait Goal Most Recent Value LTG [place] Level modified independent at 11/22/2019 1045 LTG Assistive Device cane (straight, single point) at 11/22/2019 1045 LTG Distance (feet) 150 at 11/22/2019 1045 Stair Goal Most Recent Value LTG [place] Level stand by assist at 11/22/2019 1045 [...] to see the following patient today: Phoenix Dagnelo Missed Visit (patient declined) Pt underwent procedure this AM and now with chest tube on her R side. Pt declined PT today as her pain was beginning to increase at the time. Pt requested to have PT return the follow ing day. lan of [facility] Demetris, Tala Jacobs RN - 11/23/2019 12:02 [...] Pt currently on IVAB-[place] ncomycin and Levofloxacin. [facility] following for potential for home IVABl. [facility] to check insurance coverage for services and to contact this CM. PT recommends home with assist , and Home Health. CM sent referral to [facility] and updated on potential discharge date. Likely [...] loculated pleural effusion Post OP Diagnosis: Same Dance Coach: Calderon Leggett MD MD Anesthesia Type: Mod [...] call light within reach, cane at bedside, in store marketing representative socks on, n ight light on. lan [...] safe to return home with assist and [facility] PT. Living Environment Lives With: father, sibling(s) [...] Device: none Supine to Sit, Level of Converse: independent Sit to Supine, Level of Converse: independent Transfers Additional Documentation: sit to/from stand Sit-Stand, Level of Converse: stand by assist Stand-Sit, Level of Converse: stand by assist Nuf-Ziuto-Ifn, Assistive Device: none, cane (straight, single point) Impairments: impaired balance Gait Gait Comments: With no AD, pt with increased lateral sway and near loss of balance with zackary f-recovery. SPC trialed with giat training on proper use. Level of Converse: stand by assist Assistive Device: cane (straight, [...] contributors. Gait Goal Most Recent Value LTG Converse Level modified independent at 11/22/2019 1045 LTG Assistive Device cane (straight, single point) at 11/22/2019 1045 LTG Distance (feet) 150 at 11/22/2019 1045 Stair Goal Most Recent Value LTG Converse Level stand by assist at 11/22/2019 1045 [...] Pharmacy/Medication Needs: other (see comments)([facility]) Transportation Needs: other (see comments)(Will need assistance [...] Testing | 65 - 99 mg/dL | [facility] | | | POC | performed at [facility];[address] | | LABORATORY | | | | [facility];[place], [place] | | | | | | [address] | | | | + + + + + + + + | Specimen | + + | | + + + + + + + | Performing | Address | City/State/Zipcode | Phone Number | | Organization | | | | + + + + + | [facility] | [address] | [place] [address] | [phone] | + + + + + POC Glucose (11/29/2019 8:01 AM PDT) + + + + + + | Component | Value | Ref Range | Performed | Pathologist | | | | | At | Signature | + + + + + + | Glucose, | 126 (H)Comment: Testing | 65 - 99 mg/dL | [facility] | | | POC | performed at [place];[address] | | LABORATORY | | | | [address];[place] | | | | | | [address] | | | | + + + + + + + + | Specimen | + + | | + + + + + + + | Performing | Address | City/State/Zipcode | Phone Number | | Organization | | | | + + + + + | [facility] | [address] | [place] [address] | [phone] | + + + + + Comprehensive [...] | | | | | performed at [facility] | | | | | | [facility];[place], [place] | | | | | | [address] | | | | + + + + + + + + | Specimen | + + | Blood | + + + + + + + | Performing | Address | City/State/Zipcode | Phone Number | | Organization | | | | + + + + + | [facility] | [address] | [place] [address] | [phone] | + + + + + POC Glucose (11/28/2019 9:17 PM PDT) + + + + + + | Component | Value | Ref Range | Performed | Pathologist | | | | | At | Signature | + + + + + + | Glucose, | 144 (H)Comment: Testing | 65 - 99 mg/dL | [facility] | | | POC | performed at [place];[address] | | LABORATORY | | | | [address];[place], [place] | | | | | | [address] | | | | + + + + + + + + | Specimen | + + | | + + + + + + + | Performing | Address | City/State/Zipcode | Phone Number | | Organization | | | | + + + + + | [facility] | [address] | [place] [address] | [phone] | + + + + + POC Glucose (11/28/2019 5:04 PM PDT) + + + + + + | Component | Value | Ref Range | Performed | Pathologist | | | | | At | Signature | + + + + + + | Glucose, | 92Comment: Testing | 65 - 99 mg/dL | [facility] | | | POC | performed at [place];[address] | | LABORATORY | | | | [address];[place] | | | | | | [address] | | | | + + + + + + + + | Specimen | + + | | + + + + + + + | Performing | Address | City/State/Zipcode | Phone Number | | Organization | | | | + + + + + | [facility] | [address] | [place] [address] | [phone] | + + + + + POC Glucose (11/28/2019 11:55 AM PDT) + + + + + + | Component | Value | Ref Range | Performed | Pathologist | | | | | At | Signature | + + + + + + | Glucose, | 190 (H)Comment: Testing | 65 - 99 mg/dL | [facility] | | | POC | performed at [place];[address] | | LABORATORY | | | | [address];[place] | | | | | | [address] | | | | + + + + + + + + | Specimen | + + | | + + + + + + + | Performing | Address | City/State/Zipcode | Phone Number | | Organization | | | | + + + + + | [facility] | [address] | [place] [address] | [phone] | + + + + + XR [...] Testing | 65 - 99 mg/dL | [facility] | | | POC | performed at [place];[address] | | LABORATORY | | | | [address];[place] | | | | | | [address] | | | | + + + + + + + + | Specimen | + + | | + + + + + + + | Performing | Address | City/State/Zipcode | Phone Number | | Organization | | | | + + + + + | [facility] | [address] | [place] [address] | [phone] | + + + + + XR [...] | | | | | | MDRD [facility] traceable | | | | | | equation.Testing | | | | | | performed at [place];[address] | | | | | | [facility];[place], [place] | | | | | | [address] | | | | + + + + + + + + | Specimen | + + | Blood | + + + + + + + | Performing | Address | City/State/Zipcode | Phone Number | | Organization | | | | + + + + + | [facility] | [address] | [place] [address] | [phone] | + + + + + CBC [...] LABORATORY | | | | performed at [facility];[address] | | | | | | [address];[place], [place] | | | | | | [address] | | | | | | | | | | + + + + + + + + | Specimen | + + | Blood | + + + + + + + | Performing | Address | City/State/Zipcode | Phone Number | | Organization | | | | + + + + + | [facility] | [address] | [place] [address] | [phone] | + + + + + POC [...] | | | POC | performed at [facility];[address] | | LABORATORY | | | | [address];[place] | | | | | | [address] | | | | + + + + + + + + | Specimen | + + | | + + + + + + + | Performing | Address | City/State/Zipcode | Phone Number | | Organization | | | | + + + + + | [facility] | [address] [facility] | [place] [address] | [phone] | + + + + + POC [...] | | | POC | performed at [facility];[address] | | LABORATORY | | | | [address];[place] | | | | | | [address] | | | | + + + + + + + + | Specimen | + + | | + + + + + + + | Performing | Address | City/State/Zipcode | Phone Number | | Organization | | | | + + + + + | [facility] | [address] | [place] [address] | [phone] | + + + + + POC Glucose (11/27/2019 12:22 PM PDT) + + + + + + | Component | Value | Ref Range | Performed | Pathologist | | | | | At | Signature | + + + + + + | Glucose, | 150 (H)Comment: Testing | 65 - 99 mg/dL | [facility] | | | POC | performed at [facility];[address] | | LABORATORY | | | | [address];[place] | | | | | | [address] | | | | + + + + + + + + | Specimen | + + | | + + + + + + + | Performing | Address | City/State/Zipcode | Phone Number | | Organization | | | | + + + + + | [facility] | [address] | [place] [address] | [phone] | + + + + + Comprehensive [...] 32 (L)Comment: GFR <60: | >60 | [facility] | | | GFR | CHRONIC [...] | | | | | | MDRD IDKS traceable | | | | | | equation.Testing | | | | | | performed at [facility], [address] | | | | | | [facility], | | | | | | [place] [address] | | | | + + + + + + + + | Specimen | + + | Blood | + + + + + + + | Performing | Address | City/State/Zipcode | Phone Number | | Organization | | | | + + + + + | [facility] | [address] | [place] [address] | [phone] | + + + + + POC [...] | | | POC | performed at [facility];[address] | | LABORATORY | | | | [address];[place] | | | | | | [address] | | | | + + + + + + + + | Specimen | + + | | + + + + + + + | Performing | Address | City/State/Zipcode | Phone Number | | Organization | | | | + + + + + | [facility] | [address] | [place] [address] | [phone] | + + + + + XR [...] LABORATORY | | | | performed at [facility], [address] | | | | | | [address], | | | | | | [place] [address] | | | | | | | | | | + + + + + + + + | Specimen | + + | Blood | + + + + + + + | Performing | Address | City/State/Zipcode | Phone Number | | Organization | | | | + + + + + | [facility] | [address] | [place] [address] | [phone] | + + + + + POC [...] | | | POC | performed at [facility];[address] | | LABORATORY | | | | [address];[place], [place] | | | | | | [address] | | | | + + + + + + + + | Specimen | + + | | + + + + + + + | Performing | Address | City/State/Zipcode | Phone Number | | Organization | | | | + + + + + | [facility] | [address] | [place] [address] | [phone] | + + + + + Lactic Acid (11/26/2019 8:22 PM PDT) + + + + + + | Component | Value | Ref Range | Performed | Pathologist | | | | | At | Signature | + + + + + + | Lactate, | 1.3Comment: Testing | 0.4 - 2.0 | [facility] | | | Serum | performed at [facility];[address] | mmol/L | LABORATORY | | | | [address];[place], [place] | | | | | | [address] | | | | + + + + + + + + | Specimen | + + | Blood | + + + + + + + | Performing | Address | City/State/Zipcode | Phone Number | | Organization | | | | + + + + + | [facility] | [address] [facility] | [place] [address] | [phone] | + + + + + POC [...] | | | POC | performed at [facility];[address] | | LABORATORY | | | | [address];[place] | | | | | | [address] | | | | + + + + + + + + | Specimen | + + | | + + + + + + + | Performing | Address | City/State/Zipcode | Phone Number | | Organization | | | | + + + + + | [facility] | [address] | [place] [address] | [phone] | + + + + + POC Glucose (11/26/2019 5:14 PM PDT) + + + + + + | Component | Value | Ref Range | Performed | Pathologist | | | | | At | Signature | + + + + + + | Glucose, | 173 (H)Comment: Testing | 65 - 99 mg/dL | [facility] | | | POC | performed at [facility];[address] | | LABORATORY | | | | [address];[place] | | | | | | [address] | | | | + + + + + + + + | Specimen | + + | | + + + + + + + | Performing | Address | City/State/Zipcode | Phone Number | | Organization | | | | + + + + + | [facility] | [address] | [place] [address] | [phone] | + + + + + POC Glucose (11/26/2019 12:49 PM PDT) + + + + + + | Component | Value | Ref Range | Performed | Pathologist | | | | | At | Signature | + + + + + + | Glucose, | 162 (H)Comment: Testing | 65 - 99 mg/dL | [facility] | | | POC | performed at [facility];[address] | | LABORATORY | | | | [address];[place], [place] | | | | | | [address] | | | | + + + + + + + + | Specimen | + + | | + + + + + + + | Performing | Address | City/State/Zipcode | Phone Number | | Organization | | | | + + + + + | [facility] | [address] | [place] [address] | [phone] | + + + + + CBC [...] | | | | | | at [facility], [address] | | | | | | [facility], | | | | | | [place] [address] | | | | | |Testing performed at [facility], [address] [place] [address] | | | | | | | | | | + + +---- + + + + + | Specimen | + + | Blood | + + + + + + + | Performing | Address | City/State/Zipcode | Phone Number | | Organization | | | | + + + + + | [facility] | [address] | [place] [address] | [phone] | + + + + + POC Glucose (11/26/2019 7:36 AM PDT) + + + + + + | Component | Value | Ref Range | Performed | Pathologist | | | | | At | Signature | + + + + + + | Glucose, | 191 (H)Comment: Testing | 65 - 99 mg/dL | [facility] | | | POC | performed at [facility];[address] | | LABORATORY | | | | [address];[place], [place] | | | | | | [address] | | | | + + + + + + + + | Specimen | + + | | + + + + + + + | Performing | Address | City/State/Zipcode | Phone Number | | Organization | | | | + + + + + | [facility] | [address] | [place] [address] | [phone] | + + + + + Basic [...] | | | | | performed at [facility], [address] | | | | | | [facility], | | | | | | [place] [address] | | | | + + + + + + + + | Specimen | + + | Blood | + + + + + + + | Performing | Address | City/State/Zipcode | Phone Number | | Organization | | | | + + + + + | [facility] | [address] | [place] [address] | [phone] | + + + + + DIAGNOSTIC [...] | | | POC | performed at [facility];[address] | | LABORATORY | | | | [address];[place], [place] | | | | | | [address] | | | | + + + + + + + + | Specimen | + + | | + + + + + + + | Performing | Address | City/State/Zipcode | Phone Number | | Organization | | | | + + + + + | [facility] | [address] [facility] [facility] | [place] [address] | [phone] | + + + + + POC Glucose (11/25/2019 8:35 PM PDT) + + + + + + | Component | Value | Ref Range | Performed | Pathologist | | | | | At | Signature | + + + + + + | Glucose, | 199 (H)Comment: Testing | 65 - 99 mg/dL | [facility] | | | POC | performed at [facility];[address] | | LABORATORY | | | | [address];[place] | | | | | | [address] | | | | + + + + + + + + | Specimen | + + | | + + + + + + + | Performing | Address | City/State/Zipcode | Phone Number | | Organization | | | | + + + + + | [facility] | [address] | [place] [address] | [phone] | + + + + + POC Glucose (11/25/2019 5:08 PM PDT) + + + + + + | Component | Value | Ref Range | Performed | Pathologist | | | | | At | Signature | + + + + + + | Glucose, | 177 (H)Comment: Testing | 65 - 99 mg/dL | [facility] | | | POC | performed at [facility];[address] | | LABORATORY | | | | [address];[place], [place] | | | | | | [address] | | | | + + + + + + + + | Specimen | + + | | + + + + + + + | Performing | Address | City/State/Zipcode | Phone Number | | Organization | | | | + + + + + | [facility] | [address] | [place] [address] | [phone] | + + + + + POC Glucose (11/25/2019 12:18 PM PDT) + + + + + + | Component | Value | Ref Range | Performed | Pathologist | | | | | At | Signature | + + + + + + | Glucose, | 190 (H)Comment: Testing | 65 - 99 mg/dL | [facility] | | | POC | performed at [facility];[address] | | LABORATORY | | | | [address];[place], [place] | | | | | | [address] | | | | + + + + + + + + | Specimen | + + | | + + + + + + + | Performing | Address | City/State/Zipcode | Phone Number | | Organization | | | | + + + + + | [facility] | [address] | [place] [address] | [phone] | + + + + + POC [...] | | | POC | performed at [facility];[address] | | LABORATORY | | | | [address];[place] | | | | | | [address] | | | | + + + + + + + + | Specimen | + + | | + + + + + + + | Performing | Address | City/State/Zipcode | Phone Number | | Organization | | | | + + + + + | [facility] | [address] | [place] [address] | [phone] | + + + + + POC Glucose (11/25/2019 7:50 AM PDT) + + + + + + | Component | Value | Ref Range | Performed | Pathologist | | | | | At | Signature | + + + + + + | Glucose, | 128 (H)Comment: Testing | 65 - 99 mg/dL | [facility] | | | POC | performed at [facility];[address] | | LABORATORY | | | | [address];[place] | | | | | | [address] | | | | + + + + + + + + | Specimen | + + | | + + + + + + + | Performing | Address | City/State/Zipcode | Phone Number | | Organization | | | | + + + + + | [facility] | [address] | [place] [address] | [phone] | + + + + + Basic [...] | 8.6 | 8.5 - 10.5 | [facility] | | | | | mg/dL | LABORATORY | | + + + + + + | Estimated | 39 (L)Comment: GFR <60: | >60 | [facility] | | | GFR | CHRONIC [...] | | | | | performed at [facility], [address] | | | | | | [facility], | | | | | | [place] [address] | | | | + + + + + + + + | Specimen | + + | Blood | + + + + + + + | Performing | Address | City/State/Zipcode | Phone Number | | Organization | | | | + + + + + | [facility] | [address] | [place] [address] | [phone] | + + + + + CBC [...] LABORATORY | | | | performed at [facility], [address] | | | | | | [facility], | | | | | | [place] [address] | | | | | |Testing performed at [facility], [address] [facility], [place] [address] | | | | | | | | | | + + +---- + + + + + | Specimen | + + | Blood | + + + + + + + | Performing | Address | City/State/Zipcode | Phone Number | | Organization | | | | + + + + + | [facility] | [address] | [place] [address] | [phone] | + + + + + POC Glucose (11/24/2019 9:30 PM PDT) + + + + + + | Component | Value | Ref Range | Performed | Pathologist | | | | | At | Signature | + + + + + + | Glucose, | 155 (H)Comment: Testing | 65 - 99 mg/dL | [facility] | | | POC | performed at [facility];[address] | | LABORATORY | | | | [address];[place] | | | | | | [address] | | | | + + + + + + + + | Specimen | + + | | + + + + + + + | Performing | Address | City/State/Zipcode | Phone Number | | Organization | | | | + + + + + | [facility] | [address] | [place] [address] | [phone] | + + + + + POC Glucose (11/24/2019 5:09 PM PDT) + + + + + + | Component | Value | Ref Range | Performed | Pathologist | | | | | At | Signature | + + + + + + | Glucose, | 121 (H)Comment: Testing | 65 - 99 mg/dL | [facility] | | | POC | performed at [facility];[address] | | LABORATORY | | | | [address];[place], [place] | | | | | | [address] | | | | + + + + + + + + | Specimen | + + | | + + + + + + + | Performing | Address | City/State/Zipcode | Phone Number | | Organization | | | | + + + + + | [facility] | [address] | [place] [address] | [phone] | + + + + + POC [...] | | | POC | performed at [facility];[address] | | LABORATORY | | | | [address];[place], [place] | | | | | | [address] | | | | + + + + + + + + | Specimen | + + | | + + + + + + + | Performing | Address | City/State/Zipcode | Phone Number | | Organization | | | | + + + + + | [facility] | [address] | [place] [address] | [phone] | + + + + + POC Glucose (11/24/2019 8:09 AM PDT) + + + + + + | Component | Value | Ref Range | Performed | Pathologist | | | | | At | Signature | + + + + + + | Glucose, | 162 (H)Comment: Testing | 65 - 99 mg/dL | [facility] | | | POC | performed at [facility];[address] | | LABORATORY | | | | [address];[place] | | | | | | [address] | | | | + + + + + + + + | Specimen | + + | | + + + + + + + | Performing | Address | City/State/Zipcode | Phone Number | | Organization | | | | + + + + + | [facility] | [address] | [place] [address] | [phone] | + + + + + XR [...] | | | | | performed at [facility], [address] | | | | | | [facility], | | | | | | [place] [address] | | | | + + + + + + + + | Specimen | + + | | + + + + + + + | Performing | Address | City/State/Zipcode | Phone Number | | Organization | | | | + + + + + | [facility] | [address] | [place] [address] | [phone] | + + + + + CBC [...] | | | | | | at [facility], [address] | | | | | | [address], | | | | | | [place] [address] | | | | | |Testing performed at [facility], [address] [facility], [place] [address] | | | | | | | | | | + + +---- + + + + + | Specimen | + + | Blood | + + + + + + + | Performing | Address | City/State/Zipcode | Phone Number | | Organization | | | | + + + + + | [facility] | [address] [facility] | [place] [address] | [phone] | + + + + + Vancomycin, [...] | | | | | performed at [facility] | | | | | | [facility];[place], [place] | | | | | | [address] | | | | + + + + + + + + | Specimen | + + | Blood | + + + + + + + | Performing | Address | City/State/Zipcode | Phone Number | | Organization | | | | + + + + + | [facility] | [address] | [place] [address] | [phone] | + + + + + POC [...] | | | POC | performed at [facility];[address] | | LABORATORY | | | | [address];[place] | | | | | | [address] | | | | + + + + + + + + | Specimen | + + | | + + + + + + + | Performing | Address | City/State/Zipcode | Phone Number | | Organization | | | | + + + + + | [facility] | [address] | [place] [address] | [phone] | + + + + + POC [...] | | | POC | performed at [facility];[address] | | LABORATORY | | | | [address];[place], [place] | | | | | | [address] | | | | + + + + + + + + | Specimen | + + | | + + + + + + + | Performing | Address | City/State/Zipcode | Phone Number | | Organization | | | | + + + + + | [facility] | [address] | [place] [address] | [phone] | + + + + + XR [...] | | | POC | performed at [facility];[address] | | LABORATORY | | | | [address];[place] | | | | | | [address] | | | | + + + + + + + + | Specimen | + + | | + + + + + + + | Performing | Address | City/State/Zipcode | Phone Number | | Organization | | | | + + + + + | [facility] | [address] | [place] [address] | [phone] | + + + + + Culture, [...] RESULT | Testing performed at | | [facility] | | | | [facility], [address] [facility] | | LABORATORY | | | | [place] | | | | | | [id number]: Testing | | | | | | performed at [facility], [address] | | | | | | [facility] [address], | | | | | | [place] [address] | | | | + + + + + + + + | Specimen | + + | Body Fluid - Pus | | specimen (specimen) | + + + + + + + | Performing | Address | City/State/Zipcode | Phone Number | | Organization | | | | + + + + + | [facility] | [address] | [place] [address] | [phone] | + + + + + Medical [...] | | LABORATORY:Technical preparation was performed by [facility], | | | [address] [place] [address] (Respite Care Provider: | | | Sebas Tolliver D.O.; CLIA#: [id number]).Professional interpretation | | | was performed by [facility] [address] | | | [place] [address] (Respite Care Provider: Leif | | | Hugh Layne; CLIA#: [id number]).6 Diagnostician: Hector Bryant | | | CT [...] | | |Technical preparation was performed by [facility], [address] [place] [place] [address] (Respite Care Provider: Sebas Tolliver D.O.; CLIA#: [id number]). | | |[facility] [address] [place] [address] (Respite Care Provider: Leif Layne M.D.; CLIA#: [id number]).6 | | | | | |Diagnostician: Hector Bryant CT (ASCP) | | |[employer] | | |Diagnostician: Leif Layne MD | [...] | | | clinician's orders. A 12 [place] Islander locking pigtail catheter is placed. | | [...] the | | clinician's orders. A 12 [place] locking pigtail catheter is placed. | | [...] | | | | | performed at [facility] | | | | | | [facility];[place] | | | | | | [address] | | | | + + + + + + + + | Specimen | + + | Blood | + + + + + + + | Performing | Address | City/State/Zipcode | Phone Number | | Organization | | | | + + + + + | [facility] | [address] | [place] [address] | [phone] | + + + + + POC [...] | | | POC | performed at [facility];[address] | | LABORATORY | | | | [address];[place], [place] | | | | | | [address] | | | | + + + + + + + + | Specimen | + + | | + + + + + + + | Performing | Address | City/State/Zipcode | Phone Number | | Organization | | | | + + + + + | [facility] | [address] | [place] [address] | [phone] | + + + + + POC [...] | | | POC | performed at [facility];[address] | | LABORATORY | | | | [address];[place], [place] | | | | | | [address] | | | | + + + + + + + + | Specimen | + + | | + + + + + + + | Performing | Address | City/State/Zipcode | Phone Number | | Organization | | | | + + + + + | [facility] | [address] | [place] [address] | [phone] | + + + + + POC Glucose (11/22/2019 4:13 PM PDT) + + + + + + | Component | Value | Ref Range | Performed | Pathologist | | | | | At | Signature | + + + + + + | Glucose, | 94Comment: Testing | 65 - 99 mg/dL | [facility] | | | POC | performed at [facility];[address] | | LABORATORY | | | | [address];[place], [place] | | | | | | [address] | | | | + + + + + + + + | Specimen | + + | | + + + + + + + | Performing | Address | City/State/Zipcode | Phone Number | | Organization | | | | + + + + + | [facility] | [address] | [place] [address] | [phone] | + + + + + POC [...] | | | POC | performed at [place];[address] | | LABORATORY | | | | [address];[place] | | | | | | [address] | | | | + + + + + + + + | Specimen | + + | | + + + + + + + | Performing | Address | City/State/Zipcode | Phone Number | | Organization | | | | + + + + + | [facility] | [address] | [place] [address] | [phone] | + + + + + POC Glucose (11/22/2019 9:28 AM PDT) + + + + + + | Component | Value | Ref Range | Performed | Pathologist | | | | | At | Signature | + + + + + + | Glucose, | 92Comment: Testing | 65 - 99 mg/dL | [facility] | | | POC | performed at [place];[address] | | LABORATORY | | | | [address];[place] | | | | | | [address] | | | | + + + + + + + + | Specimen | + + | | + + + + + + + | Performing | Address | City/State/Zipcode | Phone Number | | Organization | | | | + + + + + | [facility] | [address] | [place] [address] | [phone] | + + + + + Magnesium (11/22/2019 5:18 AM PDT) + + + + + + | Component | Value | Ref Range | Performed | Pathologist | | | | | At | Signature | + + + + + + | Magnesium | 1.3 (L)Comment: Testing | 1.7 - 2.4 mg/dL | [facility] | | | | performed at [place];[address] | | LABORATORY | | | | [address];[place] | | | | | | [address] | | | | + + + + + + + + | Specimen | + + | Blood | + + + + + + + | Performing | Address | City/State/Zipcode | Phone Number | | Organization | | | | + + + + + | [facility] | [address] | [place] [address] | [phone] | + + + + + Protime [...] | | | | | performed at [place];[facility] | | | | | | [facility];[place], [place] | | | | | | [address] | | | | + + + + + + + + | Specimen | + + | Blood | + + + + + + + | Performing | Address | City/State/Zipcode | Phone Number | | Organization | | | | + + + + + | [facility] | [address] | [place] [address] | [phone] | + + + + + CBC [...] LABORATORY | | | | performed at [place];[facility] | | | | | | Caroline [address];[place], [place] | | | | | | [address] | | | | | | | | | | + + + + + + + + | Specimen | + + | Blood | + + + + + + + | Performing | Address | City/State/Zipcode | Phone Number | | Organization | | | | + + + + + | [facility] | [address] | [place] [address] | [phone] | + + + + + Comprehensive [...] 52 (L)Comment: GFR <60: | >60 | [facility] | | | GFR | CHRONIC [...] | | | | | | MDRD IDKS traceable | | | | | | equation.Testing | | | | | | performed at [place];[facility] | | | | | | [facility];[place], [place] | | | | | | [address] | | | | + + + + + + + + | Specimen | + + | Blood | + + + + + + + | Performing | Address | City/State/Zipcode | Phone Number | | Organization | | | | + + + + + | [facility] | [address] | [place] [address] | [phone] | + + + + + Basic [...] | | | | | performed at [place];[address] | | | | | | [facility];[place], [place] | | | | | | [address] | | | | + + + + + + + + | Specimen | + + | Blood | + + + + + + + | Performing | Address | City/State/Zipcode | Phone Number | | Organization | | | | + + + + + | [facility] | [address] | [place] [address] | [phone] | + + + + + documented in this encounter Visit Diagnoses + + | Diagnosis | + + | Anemia of chronic disease Anemia of other chronic disease | + + | Chronic pain syndrome | + + | CKD (chronic kidney disease), stage III (HCC) Chronic kidney disease, Stage III | | (moderate) | + + | Empyema of [...] Unspecified pleural effusion | + + | EVA (acute kidney injury) (HCC) Acute kidney failure, [...] | | dose (after last reorder) on Fri | | | | | [...] | | Oral, DAILY, First dose on Wed | | 20 8:01 | | | [...] | | | | AC, NPO, Daytime 6925-3227 Use | | | | | | | NIGHT DOSE for doses scheduled: | | | | | | | HS, Nighttime 8477-8795 If | | | | | | [...] | | | | | | | Wed11/24/19 at 0730, Give before | | | [...] 10:31 | | | | | Starting [facility] 11/23/19 at 1027 | | AM [...] PM PDT | | | | | [facility] 11/23/19 at 1115, Please | | [...] | | | | 1000, vanco trough 5/28 @ 0900. | | | | | [...]
--- OUTSIDE RECORDS SUMMARY | ~2020-02-13 | XMS | Encounter Summary ---
Demographics + + + | Address | [address] | | | [place] [address] | + + + | Home Phone [...] Author + + + | Author | [facility] | | | and [place] | + + + | Organization | [facility] | | [...] Team Providers + +------+ + | Care Transcriptionist Name | Role | Phone | + [...] + + | 11/11/ | Telephone | [facility] | Oc Mooney, | Lab Results | | 2017 | | [address] | MD [address] | | | | | [address] | [place] | | | | | [place] | [address] | | | | | [address] | | | | | | [phone] | | | +--------+ + + + [...] Miscellaneous Notes Telephone Encounter - Donna Jara, Group Leader - 11/11/2016 2:01 PM PDTCalle d to [...]
--- OUTSIDE RECORDS SUMMARY | ~2020-02-13 | XMS | Encounter Summary ---
Demographics + + + | Address | [address] | | | [place] [address] | + + + | Home Phone | | + + + | Preferred Language | Unknown | + + + | Marital Status | Legally | + + + | Scientology Affiliation | Unknown | + + + [...] Team Providers + +------+ + | Care Process Maintenance Technician Name | Role | Phone | + +------+ + | Roberth Gaspar MD | PCP | | + +------+ + Reason for Visit + +--------+ + | Reason | Onset | Comments | | | Date | | + +--------+ + | Medication Refill | 03/03/ | | | | 2017 | | + +--------+ + Encounter Details +--------+--------+ + + + | Date | Type | Department | Care Team | Description | +--------+--------+ + + + | 03/03/ | Refill | [facility] | Oc Mooney, | Medication Refill | | 2017 | | [address] | MD [address] | | | | | [address] | [place] | | | | | [place] | [address] | | | | | [address] | | | | | | [phone] | | | +--------+--------+ + + + [...] Notes Telephone Encounter - Whitney Gaspar - 03/04/2017 9:02 AM PDTPatient returned call. She is currently taking 1 capsule 3 times daily and does need this refill. elephone Encounter - Donna Jara, Dry Goods Inspector - 03/03/2017 5:05 PM PDTCalled to speak to Petra Dangelo regarding medication refill request for medication gabapentin. Is Petra Dangelo currently taking 1 capsule by mouth three times daily? Left a voicemail message to call our office back. Electronically si gned by Donna Jara Dry Goods Inspector at 03/03/2017 5:07 PM PDTdocumented in this e ncounter Plan of Treatment Not on filedocumented as of this encounter Visit Diagnoses Not on filedocumented in this encounter"
--- OUTSIDE RECORDS SUMMARY | ~2020-02-13 | XMS | Encounter Summary ---
Demographics + + + | Address | [address] | | | [place] [address] | + + + | Home Phone | | + + + | Preferred Language | Unknown | + + + | Marital Status | Legally | + + + | Caodaism Affiliation | Unknown | + + + [...] Team Providers + +------+ + | Care Revenue Cycle Administrator Name | Role | Phone | + +------+ + | Roberth Gaspar MD | PCP | | + +------+ + Encounter Details +--------+ + + + + | Date | Type | Department | Care Team | Description | +--------+ + + + + | 09/12/ | Documentati | [facility] | Jarrett, | | | 2019 | on | NEPHROLOGY [place] | [facility] | | | | | [address] | Networking Technician | | | | | [address] | | | | | | [place], [place] | | | | | | [address] | | | | | | [phone] | | | +--------+ + + + [...]
--- OUTSIDE RECORDS SUMMARY | ~2020-02-13 | XMS | Encounter Summary ---
Demographics + + + | Address | [address] | | | [place] [address] | + + + | Home Phone [...] Author + + + | Author | [facility] | | | and [place] | + + + | Organization | [facility] | | | [...] Team Providers + +------+ + | Care Car Wiper Name | Role | Phone | + +------+ + | Remi Talley MD | PCP | | + +------+ + Reason for Visit +--------+--------+ + | Reason | Onset | Comments | | | Date | | +--------+--------+ + | Other | 12/25/ | F/U Appt | | | 2020 | | +--------+--------+ + Encounter Details +--------+ + + + + | Date | Type | Department | Care Team | Description | +--------+ + + + + | 12/25/ | Telephone | [facility] | Carey Martínez, | Other (F/U Appt ) | | 2020 | | INFECTIOUS DISEASE | [place] | | | | | [address] | | | | | | [place] | | | | | | [address] | | | | | | [phone] | | | +--------+ + + + [...] this encounter Miscellaneous Notes Telephone Encounter - Carey Martínez Medical Assistant - 01/04/2020 10:57 AM PDT01/04/2020 : Simone called office back and stated he spoke to patient and she told him that she already had picc line pulled. I asked if he can have her call office that way I can call where she g ot it pulled so I can document date . He stated he will call her and give me a call. Vijay whitehead Encounter - Carey Martínez Medical Assistant - 01/04/2020 10:53 AM PDT01/04/2020: I called patients brother Simone to see if I could speak to patient. Simone stated he will get a hold of patient and let me me know once he has information. -Shalini called office and stated that on their records it shows picc was d/cd on October 09. I let her know that is odd as patient was seen by dr ardon in November and order was placed afte r. Shalini stated that is the information she has. Vijay whitehead Encounter - Carey Martínez Medical Assistant - 01/04/2020 9:39 AM PDT01/04/2020: Shalini from [facility] stated she will look into the picc pull to see when it was done an d she will call me back. Callback # was provided. Vijay whitehead Encounter - Carey Martínez Medical Assistant - 01/04/2020 9:39 AM PDT01/04/2020: I attempted to get a hold of patient. I left message requesting for patient to return my ca ll at office. Callback number was provided in message,[phone] option 5. I will wait for callback. elepho ne Encounter - Carey Martínez [employer] - 12/26/2019 10:04 AM PDT12/26/2019: I attempted to get a hold of patient. I left message requesting for patient to return my ca ll at office. Callback number was provided in message,[phone] option 5. I will wait for callback. Isabelle ahumada in this encounter Plan of Treatment Not on filedocumented as of this encounter Visit Diagnoses Not on filedocumented in this encounter"
--- OUTSIDE RECORDS SUMMARY | ~2020-02-13 | XMS | Encounter Summary ---
Demographics + + + | Address | [address] | | | [place] [address] | + + + | Home Phone | | + + + | Preferred Language | Unknown | + + + | Marital Status | Legally | + + + | Anabaptist Affiliation | Unknown | + + + | Race | White | + + + | Ethnic Group | Not or | + + + Author + + + | Author | [facility] | | | and [place] | + + + | Organization | [facility] | | [...] Team Providers + +------+ + | Care Biological Science Technician Fish Name | Role | Phone | + +------+ + | Roberth Gaspar MD | PCP | | + +------+ + Encounter Details +--------+ + + + + | Date | Type | Department | Care Team | Description | +--------+ + + + + | 09/12/ | Orders Only | [facility] | JamCesar braden MD | Essential | | 2020 | | NEPHROLOGY [place] | [address] | hypertension, benign | | | | [address] | [address] [facility] [place] | (Primary Dx); CKD | | | | [address] | [address] | (chronic kidney | | | | [place], [place] | | disease), stage III | | | | [address] | | (HCC) | | | | [phone] | | | +--------+ + + + [...]
--- OUTSIDE RECORDS SUMMARY | ~2020-02-13 | XMS | Encounter Summary ---
Demographics + + + | Address | [address] | | | [place] [address] | + + + | Home Phone [...] + + + | Author | [facility] | | | and [place] | + + + | Organization | [facility] | | | [...] Team Providers + +------+ + | Care Media Center Assistant Name | Role | Phone | + [...] | | | | EMERGENCY CENTER | [place] [address] | | | 01/07/ | | [address] | [phone] | | | 2012 | | [place], [place] | | | | | | [address] | | | | | | [phone] | | | +--------+ + + + [...]
--- OUTSIDE RECORDS SUMMARY | ~2020-02-13 | XMS | Encounter Summary ---
Demographics + + + | Address | [address] | | | [place] [address] | + + + | Home Phone [...] + + + | Author | [facility] | | | and [place] | + + + | Organization | [facility] | | [...] Team Providers + +------+ + | Care Terminologist Name | Role | Phone | + [...] | hand | [address] | | | | n | numbness | [address] | [place], | | | | | Hand | [place], | [place] [address] | | | | | weakness | [place] [address] | Phone: | | | | | History of | Phone: | [phone] | | | | | diabetes | [phone] | Fax: | | | | | mellitus | Fax: | [phone] | | | | | Procedures | [phone] | | | | | | DOS [...] 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[place], | | | | | degeneration | [address] | [place] [address] | | | | | , lumbar | [place], | Phone: | | | | | region | [place] | [phone] | | | | | Neuropathy | [address] | Fax: | | | | | | Phone: | [phone] | | | | | | [phone] | | | | | | | Fax: | | | | | | | [phone] | | +--------+--------+ + + + + Encounter Details +--------+---------+ + + + | Date | Type | Department | Care Team | Description | +--------+---------+ + + + | 05/04/ | Office | [facility] | Oc Mooney, | Bilateral hand | | 2015 | Visit | [address]RY [address] | MD [address] | numbness (Primary | | | | [address] | [place] | Dx); Hand weakness; | | | | [place] | [address] | History of diabetes | | | | [address] | | mellitus; Brisk deep | | | | [phone] | | tendon reflexes | +--------+---------+ + [...] 1998 [facility] Foot surgery Left 1999 Dr. Angiuano Family History: Family History Problem Relation Age [...] finger abduction bilaterally. 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
--- OUTSIDE RECORDS SUMMARY | ~2020-02-13 | XMS | Encounter Summary ---
Demographics + + + | Address | [address] | | | [place] [address] | + + + | Home Phone [...] Team Providers + +------+ + | Care Rope Walker Name | Role | Phone | + [...] + + | 01/05/ | Office | [facility] | Oc Mooney, | Peripheral | | 2017 | Visit | [address] | [address] | polyneuropathy | | | | [address] | [place] | (Primary Dx); | | | | [place] | [address] | Neuropathic pain; | | | | [address] | | Vitamin B12 | | | | [phone] | | deficiency; Angular | | | [...] encounter Patient Instructions Patient Instructions Donna Jara, [employer] Millwright - 01/05/2017 4:00 PM PDTBegin the consumption [...] has no apparent deficits with short or snf memory. The cranial nerves appear grossly intact. Subjective sensory change in both hands, unchanged compared to 10/06/2016. 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 Remainder of strength normal in major [...]
--- OUTSIDE RECORDS SUMMARY | ~2020-02-13 | XMS | Encounter Summary ---
Demographics + + + | Address | [address] | | | [place] [address] | + + + | Home Phone | | + + + | Preferred Language | Unknown | + + + | Marital Status | Legally | + + + | Anabaptism Affiliation | Unknown | + + + | Race | White | + + + | Ethnic Group | Not or | + + + Author + + + | Author | [facility] | | | and [place] | + + + | Organization | [facility] | | [...] Team Providers + +------+ + | Care Physical Medicine Teacher Name | Role | Phone | + +------+ + | Roberth Gaspar MD | PCP | | + +------+ + Encounter Details +--------+ + + + + | Date | Type | Department | Care Team | Description | +--------+ + + + + | 01/22/ | Orders Only | [facility] | Provider, | | | 2018 | | SYSTEM GENERIC OP | [address] | | | | | CONVERSION [address] | [place]. | | | | | [address] [place], [place] | [place] [address] | | | | | [address] | | | | | | [phone] | | | +--------+ + + + [...]
--- OUTSIDE RECORDS SUMMARY | ~2020-02-13 | XMS | Encounter Summary ---
Demographics + + + | Address | [address] | | | [place] [address] | + + + | Home Phone | | + + + | Preferred Language | Unknown | + + + | Marital Status | Legally | + + + | Synagogue Affiliation | Unknown | + + + | Race | White | + + + | Ethnic Group | Not or | + + + Author + + + | Author | [facility] | | | and [place] | + + + | Organization | [facility] | | | [...] Team Providers + +------+ + | Care Hemodialysis Technician Name | Role | Phone | [...] + + | 12/06/ | Documentati | [facility] | Leif Kenyon DO | Results (LABS | | 2020 | on | INFECTIOUS DISEASE | [address] | 12/06/2019) | | | | [address] | [place] [address] | | | | | [place], [place] | [phone] | | | | | [address] | | | | | | [phone] | | | +--------+ + + + [...] of this encounter Progress Notes Nelson Rivera, Sheriff Detective - 12/07/2019 4:29 PM PDTLab: MARK, CMP DOS:12/06/2019 Received from:NATHANAEL العراقي Abstracted into [employer] and sent to scan: YES Abstracted by: [...]
--- OUTSIDE RECORDS SUMMARY | ~2020-02-13 | XMS | Encounter Summary ---
Demographics + + + | Address | [address] | | | [place] [address] | + + + | Home Phone | | + + + | Preferred Language | Unknown | + + + | Marital Status | Legally | + + + | Baptism Affiliation | Unknown | + + + [...] Providers + +------+ + | Care Medical Records Analyst Name | Role | Phone | [...] + + | 12/25/ | Telephone | [facility] | Carey Martníez, | Other (F/U Appt ) | | 2020 | | INFECTIOUS DISEASE | [address] [address] [employer] | | | | | [address] | | | | | | [place] | | | | | | [address] | | | | | | [phone] | | | +--------+ + + + [...] - 01/04/2020 9:39 AM PDT01/04/2020: Shalini from [facility] stated she will look into the [...] at office. Callback number was provided in message,[phone] option 5. I will wait for callback. elepho ne Encounter - Carey Martínez Brick Off Bearer - 12/26/2019 10:04 AM PDT12/26/2019: I attempted to get a hold of patient. I left message requesting for patient to return my ca ll at office. Callback number was provided in message,[phone] option 5. I will wait for callback. Isabelle ahumada in this encounter Plan of Treatment Not on filedocumented as of this encounter Visit Diagnoses Not on filedocumented in this encounter"
--- OUTSIDE RECORDS SUMMARY | ~2020-02-13 | XMS | Encounter Summary ---
Demographics + + + | Address | [address] | | | [place] [address] | + + + | Home Phone [...] Author + + + | Author | [facility] | | | and [place] | + + + | Organization | [facility] | | | [...] Team Providers + +------+ + | Care Cylinder Worker Name | Role | Phone | [...] PHYSIATRY [address] | MD [address] | | | | | [address] | [place], [place] | | | | | [place], [place] | [address] | | | | | [address] | | | | | | [phone] | | | +--------+ + + + [...]
--- OUTSIDE RECORDS SUMMARY | ~2020-02-13 | XMS | Encounter Summary ---
Demographics + + + | Address | [address] | | | [place] [address] | + + + | Home Phone [...] + + + | Author | [facility] | | | and [place] | + + + | Organization | [facility] | | [...] Team Providers + +------+ + | Care Neurosurgery Physician Name | Role | Phone | + +------+ + | Roberth Gaspar MD | PCP | | + +------+ + Encounter Details +--------+ + + + + | Date | Type | Department | Care Team | Description | +--------+ + + + + | 11/04/ | Orders Only | [facility] | Conversion | | | 2017 | | NEPHROLOGY [place] | Transaction, | | | | | [address] | Provider Unknown | | | | | [address] [place], [place] | | | | | | [address] | (Fax) | | | | | [phone] | | | +--------+ + + + [...]
--- OUTSIDE RECORDS SUMMARY | ~2020-02-13 | XMS | Encounter Summary ---
Demographics + + + | Address | [address] | | | [place] [address] | + + + | Home Phone [...] Author | [facility] | | | and [place] | + [...] Providers + +------+ + | Care Research Test Engine Evaluator Name | Role | Phone | + [...] | hand | [address] | | | | n | numbness | [address] | [place], | | | | | Hand | [place], | [place] [address] | | | | | weakness | [place] [address] | Phone: | | | | | History of | Phone: | [phone] | | | | | diabetes | [phone] | Fax: | | | | | mellitus | Fax: | [phone] | | | | | Procedures | [phone] | | | | | | DOS [...] 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[place], | | | | | degeneration | [address] | [place] [address] | | | | | , lumbar | [place], | Phone: | | | | | region | [place] | [phone] | | | | | Neuropathy | [address] | Fax: | | | | | | Phone: | [phone] | | | | | | [phone] | | | | | | | Fax: | | | | | | | [phone] | | +--------+--------+ + + + + Encounter Details +--------+---------+ + + + | Date | Type | Department | Care Team | Description | +--------+---------+ + + + | 05/04/ | Office | [facility] | Oc Mooney, | Bilateral hand | | 2015 | Visit | [address]YSIATRY [address] | MD [address] | numbness (Primary | | | | [address] | [place] | Dx); Hand weakness; | | | | [place] | [address] | History of diabetes | | | | [address] | | mellitus; Brisk deep | | | | [phone] | | tendon reflexes | +--------+---------+ + [...] finger abduction bilaterally. 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
--- OUTSIDE RECORDS SUMMARY | ~2020-02-13 | XMS | Encounter Summary ---
Demographics + + + | Address | [address] | | | [place] [address] | + + + | Home Phone [...] Team Providers + +------+ + | Care Textile Machinery Instructor Name | Role | Phone | + [...] + + | 12/04/ | Office | [facility] | Andrew Cross DO | Empyema of pleural | | 2020 | Visit | INFECTIOUS DISEASE | [address] | space ([facility]) (Primary | | | | [address] | [place] [address] | Dx); MRSA infection | | | | [place], [place] | [phone] | | | | | [address] | | (methicillin-resista | | | | [phone] | | nt Staphylococcus | | | [...]
--- OUTSIDE RECORDS SUMMARY | ~2020-02-13 | XMS | Encounter Summary ---
Demographics + + + | Address | [address] | | | [place] [address] | + + + | Home Phone [...] Team Providers + +------+ + | Care Mechanical Assembly Technician Name | Role | Phone | [...] + + | 11/20/ | Hospital | [facility] | María Elena Blas, | Anemia of chronic | | 2020 - | Encounter | [facility] | [address] | disease; Chronic | | | | [address] | [place] [address] | pain syndrome; CKD | | 11/28/ | | [place], [place] | [phone] | (chronic kidney | | 2019 | | [address] | | disease), stage III | | | | [phone] | Charlene Rao DO | ([facility]); Empyema of | | | | | [address] | pleural space ([facility]); | | | | | [place] [address] | Essential | | | | | [phone] | hypertension, | | | | | | benign; Pneumonia of | | | | | Fredrick Rubin | right lower lobe | | | | | MD Eloise [address] | due to methicillin | | | | | BLVD [place], [place] | resistant | | | | | [address] | Staphylococcus | | | | | | aureus (MRSA) ([facility]); | | | | | Sanaz Vásquez, | Type 2 diabetes | | | | | [address] | mellitus 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, without | | | | | | long-term current | | | | | Romario Rodrigez MD | use of insulin | | | | | [address] | ([facility]); Pulmonary | | | | | [place] [address] | nodules; | | | | | [phone] | Thrombocytosis | | | | | | ([facility]); Loculated | | | | | | pleural effusion; | | | | | | EVA (acute kidney | | | | | | injury) ([facility]); | | | | | | Sepsis, due to | | | | | | unspecified | | | | | | organism, | | | | | | unspecified whether | | | | | | acute organ | | | | | | dysfunction present | | | | | | ([facility]); Chronic | | | | | | obstructive | | | | | | pulmonary disease, | | | | | | unspecified COPD | | | | | | type ([facility]); Weakness | | | | | [...] effusion. The patient was initially admitted to [facility] on 11/11/2019 due to fever, dyspne a, [...] of empyema. The patient was transferred to [facility] for further workup. Interventional radio logy was consulted and patient underwent chest tube placement. Infectious disease was consul brnadyn and managed antibiotics. Initially she was on levaquin and vancomycin and then transitio iraida to IV cefatoroline. Cultures from the thoracentesis remained negative. Chest tube was re moved on 11/28/19. The patient continued to do well. She was evaluated by PT who recommended SNF. Patient was accepted to [facility] swing bed with plan to complete IV ceftaroline until December 08, 2019 . Case was discussed with the accepting physician at [facility]. Discharge Exam and Data: Vital Signs: [...] Value Units Date/Time Culture, Body Fluid Sterile [[id number]] Collected: 11/23/19 1055 Order Status: Completed Lab Status: Final result Updated: 11/27/19 0657 Specimen: Body Fluid from Abscess Gram Stain Result NO CELLS OR ORGANISMS SEEN RESULT NO GROWTH 4 DAYS RESULT Testing performed at [facility], [address] [place] [address] Comment: Testing performed at [facility], [address] [place] [address] Clostridium difficile A and B EIA [[id number]] Order Status: Canceled Lab Status: No result [...] analysis per the clinician's orders. A 12 Cambodian locking pigtail catheter is placed. Signed by: [...] December 08, 2019 Discharge Information: Follow up: [facility] INFECTIOUS DISEASE [address] [facility] [id number] On 12/07/2019 follow up infection/pneumonia Remi Talley MD [address] [address] Schedule an appointment as soon as possible [...] might be di fferent from the original. [facility] Service: Hospitalist Progress Note Pt: Phoenix Dangelo AGE/SEX: 54 y.o. female ROOM: 9101/9101-01 : 1965 PCP: Remi Talley MD ADMIT DATE: 11/21/2019 TODAY'S DATE: 11/28/2019 Hospital Day/Hospital Course: LOS: [address] Rubin "Patient is a 54 year old female with past medical history of HTN, HLD, DM Type 2, COPD and Chronic Pain who was first admitted at [facility] on11/11/19due to dyspnea and fevers.Her labs showed [...] suggestive of empyema.She was then transferred to [facility] for CT Surgery evaluation. She was [...] hours. No results for input(s): PHART, PO2ART, [id number], W2YECVKL, BEART in the last 168 hours. Recent [...] analysis per the clinician's orders. A 12 Cambodian locking pigtail catheter is placed. Signed by: [...] and managing patient and counseling/coordination. Dictation software, [employer], used which may contain error for similar sounding words even af ter review. Personal communication requested for any clarification. Portions of this chart may have been copied from previous notes for continuity of care purp ose EProctorMercdees RPH - 11/28/2019 11:36 AM PDTRenal Dosing [...] this note might be different from the [facility] Service: Infectious Disease Progress Note [...] planning ongoing with plan for discharge to [facility] swing bed. Scheduled Medications ascorbic acid 500 [...] Psychiatric: Appropriate mood and affect PICC at [facility] DATA Recent Results (from the past [...] analysis per the clinician's orders. A 12 Cambodian locking pigtail catheter is placed. Signed by: [...] analysis per the clinician's orders. A 12 Cambodian locking pigtail catheter is placed. Signed by: [...] M D - 11/27/2019 10:18 AM PDT [facility] Service: Infectious Disease Progress Note Hospital Day: [...] Psychiatric: Appropriate mood and affect PICC at [facility] DATA Recent Results (from the past [...] Chronic Pain who was first admitted at [facility] on 11/11/19 due to dyspnea an d [...] empyema . She was then transferred to [facility] for CT Surgery evaluation. She was [...] diagnosed with Pneumonia and admit brandyn at [facility] requiring IV antibiotics. She improved [...] she will need rehab preferably at [facility] Swing Bed Program for IV antibiotics. [...] in another 1 to 2 days to [facility] in [facility] or when st able and cleared by ID and IR services. Fredrick Rubin MD 11/27/2019 roctor, Nelli Navas [facility] - 11/26/2019 1:18 PM PDTRenal Dosing Monitoring: [...] accordingly. 11/26/2019 1:14 PM Pharmacist: Mercedes Roberts [facility] Fredrick Killian MD - 11/26/2019 8:29 [...] Chronic Pain who was first admitted at [facility] on 11/11/19 due to dyspnea an d [...] empyema . She was then transferred to [facility] for CT Surgery evaluation. She was [...] diagnosed with Pneumonia and admit brandyn at [facility] requiring IV antibiotics. She improved [...] PICC line will be placed soon for terminal clerk antibiotics. Anemia of Chronic Disease with Vitamin [...] in another 2 to 3 days to [facility] in [facility] or when st able and improved and cleared by ID and IR services. Fredrick Ruibn MD 11/26/2019 avithra, Abi hannah MD - 11/25/2019 2:11 PM PDTFormatting of this note might be different from the [facility] Service: Infectious Disease Progress Note [...] Lovenox. Eventual plan to Swing bed at [facility] in [place]. ? Wednesday or Wednesday. Sanaz Vásquez MD [...] analysis per the clinician's orders. A 12 Cambodian locking pigtail catheter is placed. Signed by: [...] might be different from the or iginal. [facility] Service: Infectious Disease Progress Note Hospital Day: [...] SEEN Gram Stain Result Testing performed at [facility], [address] [place] [address] RESULT PENDING POC Glucose Collection Time: 11/23/19 [...] THIS TIME P RESULT Testing performed at [facility], [address] [place] [address] P Comment: Testing performed at [facility], [address] [place] [address] Resulting Agency [facility] Specimen Collected: 11/23/19 10:55 Last Resulted: 11/24/19 13:52 CYTOLOGIC INTERPRETATION: Pleural effusion: Negative for malignant cells. Radiology data: Chest x-ray Stable positioning of right-sided pigtail catheter. The amount of right-sided pleural fluid is unchanged. Signed by: Hugh Macnini Richard Sign Date/Time: 11/24/2019 7:54 AM Chest [...] Chronic Pain who was first admitted at [facility] on 11/11/19 due to dyspnea an d [...] empyema . She was then transferred to [facility] for CT Surgery evaluation. She was [...] Medications Current Facilty-Administered PRN Medications Ordered in [facility] Medication Dose Route Frequency Provider Last [...] SEEN Gram Stain Result Testing performed at [facility], [address] [place] [address] RESULT PENDING POC Glucose Result Value Ref [...] diagnosed with Pneumonia and a dmitted at [facility] requiring IV antibiotics. She improved [...] another 2 to 3 4 days to [facility] in [place] or when stable and improved and cleared by ID and IR services. Fredrick Rubin MD 11/24/2019 Shital Carmichael [facility] - 11/23/2019 11:30 PM PDTFormatting of [...] the following patient-specific PK parameters. Ke = 0.10480 1/hr T1/2 = 21 hours Estimated time [...] therapy as indicated. Thank You, Allyssa Johnson, [facility], 11/23/2019, 11:21 PM Patricia Alcocer RN - 11/23/2019 12:34 PM PDTProv[facility] received referral for home EDY. Will invest igate benefits and follow up with CM. Thank you for your referral. Patricia Macedo RN 1300: We are not contracted with this [facility] OR plan, CM notified.Electronically sosa d [...] Chronic Pain who was first admitted at [facility] on 11/11/19 due to dyspnea an d [...] empyema . She was then transferred to [facility] for CT Surgery evaluation. Events Overnight: [...] diagnosed with Pneumonia and a dmitted at [facility] requiring IV antibiotics. She improved [...] this note might be different from the [facility] Service: Infectious Disease Progress Note [...] might be different from the haritha robbins [facility] Adult Hospitalist Progress Note Hospital Day: 1 HPI SUMMARY: Mrs. Dangelo is a 54 yo F with PMHx of DM2, chronic pain, COPD who presented to [facility] on 11/11/19 with SOB and fevers. [...] suggestive of empyema. Patient transferr ed to [facility] for CT Surgery consultation. CT Surgery [...] might be different from the origi nal. [facility] Service: Hospitalist Admission History & Physical [...] Patient came as a direct admit from [facility] for right-sided empyema. This patient was admitted to [facility] on November 11, 2019 with chief complaint [...] 22,000. Metabolic parameters were within normal [facility]. She was continued on oral doxycycline. [...] of empyema. So patient was transferred for [facility] othoracic surgery consultation here. Today she [...] SURGERY 1997 [facility] SINUS SURGERY 1998 [facility] Medications Prior to Admission Medication [...] file Gets together: Not on file Attends anglican service: Not on file Active member of [...] on file Social History Narrative Lives in [place] with her brother and father, independent with [...] PDTAssociated Order(s): PROVIDER TO PROVIDER C ONSULT [facility] Service: Infectious Diseases Initial Consult Note Date of Admission: 11/21/2019 Reason for Consultation: Advice on antibiotics for right lower lobe MRSA pneumonia, suspect ed empyema Requesting Physician: Dr. Rhonda Blas, Hospitalist History Obtained From: Patient, Chart review and Referring MD CHIEF COMPLAINT: Transferred from [facility] for further care of parapneumonic effusio n, [...] the past. The patient was admitted at [facility] on 11/11/2019 for shortness of breath o [...] 11/16 on p.o. doxycycline [facility]. The patient returned to the emergency room within a few hours of discharge for worsening sy mptoms. Chest x-ray showed right-sided pleural effusion. On readmission, the patient's WBC was 22,000. She was continued on p.o. doxycycline. She was described as having nonproduct fernando cough, episodic dyspnea and having no fevers. WBC ranged from 18-20,000. On 11/20, [facility] t CT scan showed loculated right [...] given 2 g of IV vancomycin at [facility] and then transferred to [facility] for CT surgery evaluation. On presentation at [facility] on 11/20, she was described as [...] 2000 Dr. Anguiano GALLBLADDER SURGERY 1997 [facility] SINUS SURGERY 1998 [facility] Allergies Allergen Reactions Penicillins Shortness [...] activity: Never Social History Narrative Lives in [place] with her brother and father, independent with [...] note might be different from the original. [facility] Cardiothoracic Surgery CONSULTATION NOTE Pt. Name/Age/: [...] chronic pain syndrome. Patient was admitted to [facility] on November 11, 2019 wit h chief [...] [address] Dr. Anguiano GALLBLADDER SURGERY 1997 [facility] SINUS SURGERY 1998 [facility] Allergies: Allergies Allergen Reactions Penicillins [...] 15 mg/kg (Adjusted) Intravenous Q12H Nita Salvador, [facility] vancomycin per pharmacy Other Pharmacy Consult [...] file Gets together: Not on file Attends anglican service: Not on file Active member of [...] on file Social History Narrative Lives in [place] with her brother and father, independent with [...] signed by: PETER Britt 11/22/2019 7:12 AM [facility] Associated attestation - Akhil Walden MD [...] Integrity Outcome: Met Pt to discharge to [facility] bed. To leave PICC line in for continued antibiotic treatment. Report called to nurse Limon. All questions answered. D/C per taxi at 1400. E lectronically signed by Bev Rico RN at 11/29/2019 2:01 PM PDTPlan of Jef Celestin MSW - 11/29/2019 1:02 PM PDTCare Management SNF/LTACH Final Discharge Plan Readmission Risk: Medium Discharge Plan Planned Disposition: Swing bed Planned Destination: [facility] Swing [facility] Ada of Choice: YES Facility Information: Address: [address] [place] [address] Community Care Provider: Dr. Romero Patient/Family Notified: yes Transportation will be provided by: taxi, other (comment)([employer] - [phone]) Transportation Date/Time: taxi, other (comment)([employer] - [phone]) 1400 Ride Contact: Name: [employer] [phone] Phone: [employer] [phone] Confirmed 3 Qualifying Midnights: yes SNF Authorization Received: yes Benefits and Co-Pays: none at this time - already obtained [employer] Authorization PASRR Completed: yes Electronically signed: KOREY CASTRO 11/29/2019 1:02 PM lan of Jef Green MSW - 11/29/2019 8:34 AM PDTDISCHARGE PLANNING FRONT EDGER p/c msg with Anthony Davison, Admissions at [facility] ([phone] ph, fax) regarding status of insurance authorization from [employer], with hopes of obtaining it this morning to discharge today. FRONT EDGER p/c msg with Debra Combs, Admissions at [facility] ([phone] ph). FRONT EDGER p/c with Debra Combs, Admissions at [facility] Swing Bed ([phone] ph) states their census went high last night and unable to accept this Pt today. FRONT EDGER met with Pt regarding this update about [place] and Pt states her preference is now (a) [facility] Swing Bed. and (b) [facility] [place]. FRONT EDGER p/c left msg with Rhondi, admissions at [facility] [place] regarding ref erral, FRONT EDGER p/c with Taisha Michael, [facility] Swing Bed Program, states will consider Pt , reviewing referral. States they have open beds, and we already have insurance auth from [facility] [employer] [facility] [phone] ph. FRONT EDGER p/c with Rhondi with [facility], states they already have insurance auth f rom [facility] [phone] ph, DCP: Pending placement at [facility] Swing Bed Program. If Pt goes to [facility] Swing Bed, Pt will need transportation from [employer] [phone], they often ask for 24 hrs Avoidable days documented for delay with insurance authorization for [facility]. KOREY CASTRO [phone] cell lan of Care - Jonathon Lu, PT - 11/29/2019 7:32 AM PDT Physical Therapy Treatment Note Recommended discharge disposition: care home facility Post discharge physical therapy recommendation: [...] Device: none Supine to Sit, Level of Mathews: modified independent Safety Issues: decreased use of legs for bridging/pushing Transfers Additional Documentation: sit to/from stand Sit-Stand, Level of Mathews: contact guard assist Stand-Sit, Level of Mathews: contact guard assist [id number], Assistive Device: 4 wheeled walker (4WW) Impairments: impaired balance Gait Level of Mathews: contact guard assist Assistive Device: 4 wheeled walker (4WW) Distance (feet): 50 x 2 Impairments: impaired balance Goals Reflects last filed data and may be from multiple contributors. Gait Goal Most Recent Value LTG Status not met, continued at 11/29/2019 0732 LTG Mathews Level modified independent at 11/29/2019 0732 LTG Assistive Device cane (straight, single point) at 11/29/2019 0732 LTG Distance (feet) 150 at 11/29/2019 0732 Stair Goal Most Recent Value LTG Status not met, continued at 11/29/2019 0732 LTG Mathews Level stand by assist at 11/29/2019 0732 [...] Physical Therapy Treatment Note Recommended discharge disposition: care home facility Post discharge physical therapy recommendation: [...] fatigues quickly. Encouraged pt. to ambulate with rn staff multiple times throughout the day. Precautions Precautions/Limitations: falls Transfers Additional Documentation: sit to/from stand Sit-Stand, Level of Mathews: contact guard assist Stand-Sit, Level of Mathews: contact guard assist [id number], Assistive Device: 4 wheeled walker (4WW) Impairments: impaired balance Gait Level of Mathews: contact guard assist Assistive Device: 4 wheeled walker (4WW) Distance (feet): 40 x 2 Additional Documentation: safety, impairments Impairments: impaired balance Goals Reflects last filed data and may be from multiple contributors. Gait Goal Most Recent Value LTG Mathews Level modified independent at 11/22/2019 1045 LTG Assistive Device cane (straight, single point) at 11/22/2019 1045 LTG Distance (feet) 150 at 11/22/2019 1045 Stair Goal Most Recent Value LTG Mathews Level stand by assist at 11/22/2019 1045 [...] Rodrigez MD Transferring Medical Center: Receiving Facility: [facility] Provider after Transfer: PCP NURSE [...] Follow-Up Appointments House provider in 3-[address] [facility] INFECTIOUS DISEASE [address] [facility] [id number] On 12/07/2019 follow up infection/pneumonia Remi Talley MD [address] [id number] Schedule an appointment as soon as possible for a visit in 1 week hospital follow up Certification I certify that the following level of post-hospital care is medically necessary on a contin uing basis for any of the conditions for which she received care during this hospitalization : Skilled (Assisted Facility with 24-hour skilled RN service) Physician [...] MSW - 11/28/2019 11:29 AM PDTDISCHARGE PLANNING FRONT EDGER p/c with Anthony Saman, Admissions at [facility] ([phone] ph, fax) states they want to accept this patient back to their hospital, states they a re awaiting for insurance authorization from [facility] Medicaid, states this usuall y takes about 24 hours, states this has been already started. DCP: Pending at [facility] [place] - Awaiting for insurance authoriza tion Avoidable days documented for delay with insurance authorization for [facility] Med icaid. Anticipated discharge on 11/28 KOREY CASTRO [phone] cell lan of Regla - Renetta Giang [...] MSW - 11/27/2019 3:26 PM PDTDISCHARGE PLANNING FRONT EDGER p/c with Debra Combs, admissions at [facility], states their physician Leif Richards DO is currently reviewing the incomplete notes from Gasper Erickson. [facility] at [phone] will provide transportation. DCP: Pending at [facility] KOREY CASTRO [phone] cell lan of Renetta Junior RN - [...] check complete. Adriana Mcnulty RN lan of [facility] - Sakshi Quiñonez cia, RN - 11/26/2019 [...] call light appropriately. A M PDTPlan of [facility] - Adriana Mcnulty RN - 11/25/2019 5:39 [...] ing Next Steps: CM sent referral to [facility] Support Services Current Outpt/Agency/Support Groups: none [...] home. PT evaluation recommend s Home health, [facility] referral sent and following for discharge If needed. Pt currently on I VAB. Per , Pt IVAB to change to Ceftaroline, for a duration of 2-3 weeks. Pt's in surance not covered by [facility] or [facility]. CM sent referral to [facility] for placement, will need to follow up with updated ID notes from today 0. Likely no other CM needs from Case Management at this time. CM will continue to follow fo r discharge planning, pending clinical course. Electronically signed: Tala Shetty RN 11/24/2019 11:55 AM lan of [facility] - Carl Yina A, OCCUPATIONAL HEALTH AND SAFETY ADVISER - 11/24/2019 10:05 AM PDT Physical Therapy [...] bed rails Supine to Sit, Level of Mathews: modified independent Sit to Supine, Level of Mathews: modified independent Transfers Additional Documentation: sit to/from stand Sit-Stand, Level of Mathews: stand by assist Stand-Sit, Level of Mathews: stand by assist [id number], Assistive Device: 2 wheeled walker (FWW) Impairments: impaired balance Gait Level of Mathews: contact guard assist Assistive Device: 2 wheeled walker (FWW) Distance (feet): 2x40 Additional Documentation: safety, impairments Impairments: impaired balance Balance Sitting Balance: Static: good balance Sitting Balance: Dynamic: good balance Standing Balance: Static: good balance Standing Balance: Dynamic: fair balance Goals Reflects last filed data and may be from multiple contributors. Gait Goal Most Recent Value LTG Mathews Level modified independent at 11/22/2019 1045 LTG Assistive Device cane (straight, single point) at 11/22/2019 1045 LTG Distance (feet) 150 at 11/22/2019 1045 Stair Goal Most Recent Value LTG Mathews Level stand by assist at 11/22/2019 1045 [...] return the follow ing day. lan of [facility] Demetris, Tala Jacobs RN - 11/23/2019 [...] Pt currently on IVAB-Va ncomycin and Levofloxacin. [facility] following for potential for home IVABl. [facility] to check insurance coverage for services and to contact this CM. PT recommends home with assist , and Home Health. CM sent referral to [facility] and updated on potential discharge date. [...] loculated pleural effusion Post OP Diagnosis: Same Sql Database Developer: Calderon Leggett MD MD Anesthesia Type: Mod [...] call light within reach, cane at bedside, turbine room attendant socks on, n ight light on. lan [...] safe to return home with assist and select specialty hospital PT. Living Environment Lives With: father, [...] Device: none Supine to Sit, Level of Mathews: independent Sit to Supine, Level of Mathews: independent Transfers Additional Documentation: sit to/from stand Sit-Stand, Level of Mathews: stand by assist Stand-Sit, Level of Mathews: stand by assist [id number], Assistive Device: none, cane (straight, single point) Impairments: impaired balance Gait Gait Comments: With no AD, pt with increased lateral sway and near loss of balance with zackary f-recovery. SPC trialed with giat training on proper use. Level of Mathews: stand by assist Assistive Device: cane (straight, [...] contributors. Gait Goal Most Recent Value LTG Mathews Level modified independent at 11/22/2019 1045 LTG Assistive Device cane (straight, single point) at 11/22/2019 1045 LTG Distance (feet) 150 at 11/22/2019 1045 Stair Goal Most Recent Value LTG Mathews Level stand by assist at 11/22/2019 1045 [...] Pharmacy/Medication Needs: other (see comments)([facility]) Transportation Needs: other (see comments)(Will need assistance [...] Testing | 65 - 99 mg/dL | [facility] | | | POC | performed at [facility];8 | | LABORATORY | | | | [facility];[place], [place] | | | | | | [address] | | | | + + + + + + + + | Specimen | + + | | + + + + + + + | Performing | Address | City/State/Zipcode | Phone Number | | Organization | | | | + + + + + | [facility] | [address] | [place] [address] | [phone] | + + + + + POC Glucose (11/29/2019 8:01 AM PDT) + + + + + + | Component | Value | Ref Range | Performed | Pathologist | | | | | At | Signature | + + + + + + | Glucose, | 126 (H)Comment: Testing | 65 - 99 mg/dL | [facility] | | | POC | performed at [facility];[address] | | LABORATORY | | | | [address];[place] | | | | | | [address] | | | | + + + + + + + + | Specimen | + + | | + + + + + + + | Performing | Address | City/State/Zipcode | Phone Number | | Organization | | | | + + + + + | [facility] | [address] | [place] [address] | [phone] | + + + + + Comprehensive [...] | | | | | performed at [facility] | | | | | | [facility];[place], [place] | | | | | | [address] | | | | + + + + + + + + | Specimen | + + | Blood | + + + + + + + | Performing | Address | City/State/Zipcode | Phone Number | | Organization | | | | + + + + + | [facility] | [address] | [place] [address] | [phone] | + + + + + POC Glucose (11/28/2019 9:17 PM PDT) + + + + + + | Component | Value | Ref Range | Performed | Pathologist | | | | | At | Signature | + + + + + + | Glucose, | 144 (H)Comment: Testing | 65 - 99 mg/dL | [facility] | | | POC | performed at [facility];[address] | | LABORATORY | | | | [address];[place], [place] | | | | | | [address] | | | | + + + + + + + + | Specimen | + + | | + + + + + + + | Performing | Address | City/State/Zipcode | Phone Number | | Organization | | | | + + + + + | [facility] | [address] | [place] [address] | [phone] | + + + + + POC Glucose (11/28/2019 5:04 PM PDT) + + + + + + | Component | Value | Ref Range | Performed | Pathologist | | | | | At | Signature | + + + + + + | Glucose, | 92Comment: Testing | 65 - 99 mg/dL | [facility] | | | POC | performed at [facility];[address] | | LABORATORY | | | | [address];[place] | | | | | | [address] | | | | + + + + + + + + | Specimen | + + | | + + + + + + + | Performing | Address | City/State/Zipcode | Phone Number | | Organization | | | | + + + + + | [facility] | [address] | [place] [address] | [phone] | + + + + + POC Glucose (11/28/2019 11:55 AM PDT) + + + + + + | Component | Value | Ref Range | Performed | Pathologist | | | | | At | Signature | + + + + + + | Glucose, | 190 (H)Comment: Testing | 65 - 99 mg/dL | [facility] | | | POC | performed at [facility];[address] | | LABORATORY | | | | [address];[place] | | | | | | [address] | | | | + + + + + + + + | Specimen | + + | | + + + + + + + | Performing | Address | City/State/Zipcode | Phone Number | | Organization | | | | + + + + + | [facility] | [address] | [place] [address] | [phone] | + + + + + XR [...] Testing | 65 - 99 mg/dL | [facility] | | | POC | performed at [facility];[address] | | LABORATORY | | | | [address];[place] | | | | | | [address] | | | | + + + + + + + + | Specimen | + + | | + + + + + + + | Performing | Address | City/State/Zipcode | Phone Number | | Organization | | | | + + + + + | [facility] | [address] | [place] [address] | [phone] | + + + + + XR [...] | | | | | | [facility] traceable | | | | | | equation.Testing | | | | | | performed at [facility];[address] | | | | | | [facility];[place], [place] | | | | | | [address] | | | | + + + + + + + + | Specimen | + + | Blood | + + + + + + + | Performing | Address | City/State/Zipcode | Phone Number | | Organization | | | | + + + + + | [facility] | [address] | [place] [address] | [phone] | + + + + + CBC [...] LABORATORY | | | | performed at [facility];[address] | | | | | | [address];[place], [place] | | | | | | [address] | | | | | | | | | | + + + + + + + + | Specimen | + + | Blood | + + + + + + + | Performing | Address | City/State/Zipcode | Phone Number | | Organization | | | | + + + + + | [facility] | [address] | [place] [address] | [phone] | + + + + + POC [...] | | | POC | performed at [facility];[address] | | LABORATORY | | | | [address];[place] | | | | | | [address] | | | | + + + + + + + + | Specimen | + + | | + + + + + + + | Performing | Address | City/State/Zipcode | Phone Number | | Organization | | | | + + + + + | [facility] | [address] [facility] | [place] [address] | [phone] | + + + + + POC [...] | | | POC | performed at [facility];[address] | | LABORATORY | | | | [address];[place] | | | | | | [address] | | | | + + + + + + + + | Specimen | + + | | + + + + + + + | Performing | Address | City/State/Zipcode | Phone Number | | Organization | | | | + + + + + | [facility] | [address] | [place] [address] | [phone] | + + + + + POC Glucose (11/27/2019 12:22 PM PDT) + + + + + + | Component | Value | Ref Range | Performed | Pathologist | | | | | At | Signature | + + + + + + | Glucose, | 150 (H)Comment: Testing | 65 - 99 mg/dL | [facility] | | | POC | performed at [facility];[address] | | LABORATORY | | | | [address];[place] | | | | | | [address] | | | | + + + + + + + + | Specimen | + + | | + + + + + + + | Performing | Address | City/State/Zipcode | Phone Number | | Organization | | | | + + + + + | [facility] | [address] | [place] [address] | [phone] | + + + + + Comprehensive [...] 32 (L)Comment: GFR <60: | >60 | [facility] | | | GFR | CHRONIC [...] | | | | | | MDRD [facility] traceable | | | | | | equation.Testing | | | | | | performed at [facility], [address] | | | | | | [facility], | | | | | | [place] [address] | | | | + + + + + + + + | Specimen | + + | Blood | + + + + + + + | Performing | Address | City/State/Zipcode | Phone Number | | Organization | | | | + + + + + | [facility] | [address] | [place] [address] | [phone] | + + + + + POC [...] | | | POC | performed at [facility];[address] | | LABORATORY | | | | [address];[place] | | | | | | [address] | | | | + + + + + + + + | Specimen | + + | | + + + + + + + | Performing | Address | City/State/Zipcode | Phone Number | | Organization | | | | + + + + + | [facility] | [address] | [place] [address] | [phone] | + + + + + XR [...] LABORATORY | | | | performed at [facility], [address] | | | | | | [address], | | | | | | [place] [address] | | | | | | | | | | + + + + + + + + | Specimen | + + | Blood | + + + + + + + | Performing | Address | City/State/Zipcode | Phone Number | | Organization | | | | + + + + + | [facility] | [address] | [place] [address] | [phone] | + + + + + POC [...] | | | POC | performed at [facility];[address] | | LABORATORY | | | | [address];[place], [place] | | | | | | [address] | | | | + + + + + + + + | Specimen | + + | | + + + + + + + | Performing | Address | City/State/Zipcode | Phone Number | | Organization | | | | + + + + + | [facility] | [address] | [place] [address] | [phone] | + + + + + Lactic Acid (11/26/2019 8:22 PM PDT) + + + + + + | Component | Value | Ref Range | Performed | Pathologist | | | | | At | Signature | + + + + + + | Lactate, | 1.3Comment: Testing | 0.4 - 2.0 | [facility] | | | Serum | performed at [facility];888 | mmol/L | LABORATORY | | | | [address];[place], [place] | | | | | | [address] | | | | + + + + + + + + | Specimen | + + | Blood | + + + + + + + | Performing | Address | City/State/Zipcode | Phone Number | | Organization | | | | + + + + + | [facility] | [address] [facility] | [place] [address] | [phone] | + + + + + POC [...] | | | POC | performed at [facility];[address] | | LABORATORY | | | | [address];[place] | | | | | | [address] | | | | + + + + + + + + | Specimen | + + | | + + + + + + + | Performing | Address | City/State/Zipcode | Phone Number | | Organization | | | | + + + + + | [facility] | [address] | [place] [address] | [phone] | + + + + + POC Glucose (11/26/2019 5:14 PM PDT) + + + + + + | Component | Value | Ref Range | Performed | Pathologist | | | | | At | Signature | + + + + + + | Glucose, | 173 (H)Comment: Testing | 65 - 99 mg/dL | [facility] | | | POC | performed at [facility];[address] | | LABORATORY | | | | [address];[place] | | | | | | [address] | | | | + + + + + + + + | Specimen | + + | | + + + + + + + | Performing | Address | City/State/Zipcode | Phone Number | | Organization | | | | + + + + + | [facility] | [address] | [place] [address] | [phone] | + + + + + POC Glucose (11/26/2019 12:49 PM PDT) + + + + + + | Component | Value | Ref Range | Performed | Pathologist | | | | | At | Signature | + + + + + + | Glucose, | 162 (H)Comment: Testing | 65 - 99 mg/dL | [facility] | | | POC | performed at [facility];[address] | | LABORATORY | | | | [address];[place], [place] | | | | | | [address] | | | | + + + + + + + + | Specimen | + + | | + + + + + + + | Performing | Address | City/State/Zipcode | Phone Number | | Organization | | | | + + + + + | [facility] | [address] | [place] [address] | [phone] | + + + + + CBC [...] | | | | | | at [facility], [address] | | | | | | [facility], | | | | | | [place] [address] | | | | | |Testing performed at [facility], [address] [place] [address] | | | | | | | | | | + + +---- + + + + + | Specimen | + + | Blood | + + + + + + + | Performing | Address | City/State/Zipcode | Phone Number | | Organization | | | | + + + + + | [facility] | [address] | [place] [address] | [phone] | + + + + + POC Glucose (11/26/2019 7:36 AM PDT) + + + + + + | Component | Value | Ref Range | Performed | Pathologist | | | | | At | Signature | + + + + + + | Glucose, | 191 (H)Comment: Testing | 65 - 99 mg/dL | [facility] | | | POC | performed at [facility];[address] | | LABORATORY | | | | [address];[place], [place] | | | | | | [address] | | | | + + + + + + + + | Specimen | + + | | + + + + + + + | Performing | Address | City/State/Zipcode | Phone Number | | Organization | | | | + + + + + | [facility] | [address] | [place] [address] | [phone] | + + + + + Basic [...] | | | | | performed at [facility], [address] | | | | | | [facility], | | | | | | [place] [address] | | | | + + + + + + + + | Specimen | + + | Blood | + + + + + + + | Performing | Address | City/State/Zipcode | Phone Number | | Organization | | | | + + + + + | [facility] | [address] | [place] [address] | [phone] | + + + + + DIAGNOSTIC [...] | | | POC | performed at [facility];[address] | | LABORATORY | | | | [address];[place], [place] | | | | | | [address] | | | | + + + + + + + + | Specimen | + + | | + + + + + + + | Performing | Address | City/State/Zipcode | Phone Number | | Organization | | | | + + + + + | [facility] | [address] [facility] | [place] [address] | [phone] | + + + + + POC Glucose (11/25/2019 8:35 PM PDT) + + + + + + | Component | Value | Ref Range | Performed | Pathologist | | | | | At | Signature | + + + + + + | Glucose, | 199 (H)Comment: Testing | 65 - 99 mg/dL | [facility] | | | POC | performed at [facility];[address] | | LABORATORY | | | | [address];[place] | | | | | | [address] | | | | + + + + + + + + | Specimen | + + | | + + + + + + + | Performing | Address | City/State/Zipcode | Phone Number | | Organization | | | | + + + + + | [facility] | [address] | [place] [address] | [phone] | + + + + + POC Glucose (11/25/2019 5:08 PM PDT) + + + + + + | Component | Value | Ref Range | Performed | Pathologist | | | | | At | Signature | + + + + + + | Glucose, | 177 (H)Comment: Testing | 65 - 99 mg/dL | [facility] | | | POC | performed at [facility];[address] | | LABORATORY | | | | [address];[place], [place] | | | | | | [address] | | | | + + + + + + + + | Specimen | + + | | + + + + + + + | Performing | Address | City/State/Zipcode | Phone Number | | Organization | | | | + + + + + | [facility] | [address] | [place] [address] | [phone] | + + + + + POC Glucose (11/25/2019 12:18 PM PDT) + + + + + + | Component | Value | Ref Range | Performed | Pathologist | | | | | At | Signature | + + + + + + | Glucose, | 190 (H)Comment: Testing | 65 - 99 mg/dL | [facility] | | | POC | performed at [facility];[address] | | LABORATORY | | | | [address];[place], [place] | | | | | | [address] | | | | + + + + + + + + | Specimen | + + | | + + + + + + + | Performing | Address | City/State/Zipcode | Phone Number | | Organization | | | | + + + + + | [facility] | [address] | [place] [address] | [phone] | + + + + + POC [...] | | | POC | performed at [facility];[address] | | LABORATORY | | | | [address];[place] | | | | | | [address] | | | | + + + + + + + + | Specimen | + + | | + + + + + + + | Performing | Address | City/State/Zipcode | Phone Number | | Organization | | | | + + + + + | [facility] | [address] [facility] [facility] | [place] [address] | [phone] | + + + + + POC Glucose (11/25/2019 7:50 AM PDT) + + + + + + | Component | Value | Ref Range | Performed | Pathologist | | | | | At | Signature | + + + + + + | Glucose, | 128 (H)Comment: Testing | 65 - 99 mg/dL | [facility] | | | POC | performed at [facility];[address] | | LABORATORY | | | | [address];[place] | | | | | | [address] | | | | + + + + + + + + | Specimen | + + | | + + + + + + + | Performing | Address | City/State/Zipcode | Phone Number | | Organization | | | | + + + + + | [facility] | [address] | [place] [address] | [phone] | + + + + + Basic [...] | 8.6 | 8.5 - 10.5 | [facility] | | | | | mg/dL | LABORATORY | | + + + + + + | Estimated | 39 (L)Comment: GFR <60: | >60 | [facility] | | | GFR | CHRONIC [...] | | | | | performed at [facility], [address] | | | | | | [facility], | | | | | | [place] [address] | | | | + + + + + + + + | Specimen | + + | Blood | + + + + + + + | Performing | Address | City/State/Zipcode | Phone Number | | Organization | | | | + + + + + | [facility] | [address] | [place] [address] | [phone] | + + + + + CBC [...] LABORATORY | | | | performed at [facility], [address] | | | | | | [facility], | | | | | | [place] [address] | | | | | |Testing performed at [facility], [address] [facility], [place] [address] | | | | | | | | | | + + +---- + + + + + | Specimen | + + | Blood | + + + + + + + | Performing | Address | City/State/Zipcode | Phone Number | | Organization | | | | + + + + + | [facility] | [address] | [place] [address] | [phone] | + + + + + POC Glucose (11/24/2019 9:30 PM PDT) + + + + + + | Component | Value | Ref Range | Performed | Pathologist | | | | | At | Signature | + + + + + + | Glucose, | 155 (H)Comment: Testing | 65 - 99 mg/dL | [facility] | | | POC | performed at [facility];[address] | | LABORATORY | | | | [address];[place] | | | | | | [address] | | | | + + + + + + + + | Specimen | + + | | + + + + + + + | Performing | Address | City/State/Zipcode | Phone Number | | Organization | | | | + + + + + | [facility] | [address] | [place] [address] | [phone] | + + + + + POC Glucose (11/24/2019 5:09 PM PDT) + + + + + + | Component | Value | Ref Range | Performed | Pathologist | | | | | At | Signature | + + + + + + | Glucose, | 121 (H)Comment: Testing | 65 - 99 mg/dL | [facility] | | | POC | performed at [facility];[address] | | LABORATORY | | | | [address];[place], [place] | | | | | | [address] | | | | + + + + + + + + | Specimen | + + | | + + + + + + + | Performing | Address | City/State/Zipcode | Phone Number | | Organization | | | | + + + + + | [facility] | [address] | [place] [address] | [phone] | + + + + + POC [...] | | | POC | performed at [facility];[address] | | LABORATORY | | | | [address];[place], [place] | | | | | | [address] | | | | + + + + + + + + | Specimen | + + | | + + + + + + + | Performing | Address | City/State/Zipcode | Phone Number | | Organization | | | | + + + + + | [facility] | [address] | [place] [address] | [phone] | + + + + + POC Glucose (11/24/2019 8:09 AM PDT) + + + + + + | Component | Value | Ref Range | Performed | Pathologist | | | | | At | Signature | + + + + + + | Glucose, | 162 (H)Comment: Testing | 65 - 99 mg/dL | [facility] | | | POC | performed at [facility];[address] | | LABORATORY | | | | [address];[place] | | | | | | [address] | | | | + + + + + + + + | Specimen | + + | | + + + + + + + | Performing | Address | City/State/Zipcode | Phone Number | | Organization | | | | + + + + + | [facility] | [address] | [place] [address] | [phone] | + + + + + XR [...] | | | | | performed at [facility], [address] | | | | | | [facility], | | | | | | [place] [address] | | | | + + + + + + + + | Specimen | + + | | + + + + + + + | Performing | Address | City/State/Zipcode | Phone Number | | Organization | | | | + + + + + | [facility] | [address] | [place] [address] | [phone] | + + + + + CBC [...] | | | | | | at [facility], [address] | | | | | | [address], | | | | | | [place] [address] | | | | | |Testing performed at [facility], [address] [facility], [place] [address] | | | | | | | | | | + + +---- + + + + + | Specimen | + + | Blood | + + + + + + + | Performing | Address | City/State/Zipcode | Phone Number | | Organization | | | | + + + + + | [facility] | [address] [facility] | [place] [address] | [phone] | + + + + + Vancomycin, [...] | | | | | performed at [facility] | | | | | | [facility];[place], [place] | | | | | | [address] | | | | + + + + + + + + | Specimen | + + | Blood | + + + + + + + | Performing | Address | City/State/Zipcode | Phone Number | | Organization | | | | + + + + + | [facility] | [address] | [place] [address] | [phone] | + + + + + POC [...] | | | POC | performed at [facility];[address] | | LABORATORY | | | | [address];[place] | | | | | | [address] | | | | + + + + + + + + | Specimen | + + | | + + + + + + + | Performing | Address | City/State/Zipcode | Phone Number | | Organization | | | | + + + + + | [facility] | [address] | [place] [address] | [phone] | + + + + + POC [...] | | | POC | performed at [facility];[address] | | LABORATORY | | | | [address];[place], [place] | | | | | | [address] | | | | + + + + + + + + | Specimen | + + | | + + + + + + + | Performing | Address | City/State/Zipcode | Phone Number | | Organization | | | | + + + + + | [facility] | [address] | [place] [address] | [phone] | + + + + + XR [...] | | | POC | performed at [facility];[address] | | LABORATORY | | | | [address];[place] | | | | | | [address] | | | | + + + + + + + + | Specimen | + + | | + + + + + + + | Performing | Address | City/State/Zipcode | Phone Number | | Organization | | | | + + + + + | [facility] | [address] | [place] [address] | [phone] | + + + + + Culture, [...] RESULT | Testing performed at | | [facility] | | | | [facility], [address] [facility] | | LABORATORY | | | | [place] | | | | | | [id number]: Testing | | | | | | performed at [facility], [address] | | | | | | [facility] [address], | | | | | | [place] [address] | | | | + + + + + + + + | Specimen | + + | Body Fluid - Pus | | specimen (specimen) | + + + + + + + | Performing | Address | City/State/Zipcode | Phone Number | | Organization | | | | + + + + + | [facility] | [address] | [place] [address] | [phone] | + + + + + Medical [...] | | LABORATORY:Technical preparation was performed by [facility], | | | [address] [place] [address] (Business Office Manager: | | | Sebas Tolliver D.O.; CLIA#: [id number]).Professional interpretation | | | was performed by [facility] [address] | | | [place] [address] (Business Office Manager: Leif | | | Hugh Layne; CLIA#: [id number]).6 Diagnostician: Hector Bryant | | | CT [...] | | |Technical preparation was performed by [facility], [address] [facility] [place] [address] (Business Office Manager: Sebas Tolliver D.O.; CLIA#: [id number]). | | |[facility] [address] [place] [address] (Business Office Manager: Leif Layne M.D.; CLIA#: [id number]).6 | | | | | |Diagnostician: Hector Bryant CT (ASCP) | | |Vocal Artist | | |Diagnostician: Leif Layne MD | [...] | | | clinician's orders. A 12 [place] locking pigtail catheter is placed. | | [...] the | | clinician's orders. A 12 [place] locking pigtail catheter is placed. | | [...] | | | | | performed at [facility] | | | | | | [place] [facility] | | | | | | [address] | | | | + + + + + + + + | Specimen | + + | Blood | + + + + + + + | Performing | Address | City/State/Zipcode | Phone Number | | Organization | | | | + + + + + | [facility] | [address] | [place] [address] | [phone] | + + + + + POC [...] | | | POC | performed at [facility];[address] | | LABORATORY | | | | [address];[place], [place] | | | | | | [address] | | | | + + + + + + + + | Specimen | + + | | + + + + + + + | Performing | Address | City/State/Zipcode | Phone Number | | Organization | | | | + + + + + | [facility] | [address] | [place] [address] | [phone] | + + + + + POC [...] | | | POC | performed at [facility];[address] | | LABORATORY | | | | [address];[place], [place] | | | | | | [address] | | | | + + + + + + + + | Specimen | + + | | + + + + + + + | Performing | Address | City/State/Zipcode | Phone Number | | Organization | | | | + + + + + | [facility] | [address] | [place] [address] | [phone] | + + + + + POC Glucose (11/22/2019 4:13 PM PDT) + + + + + + | Component | Value | Ref Range | Performed | Pathologist | | | | | At | Signature | + + + + + + | Glucose, | 94Comment: Testing | 65 - 99 mg/dL | [facility] | | | POC | performed at [facility];[address] | | LABORATORY | | | | [address];[place], [place] | | | | | | [address] | | | | + + + + + + + + | Specimen | + + | | + + + + + + + | Performing | Address | City/State/Zipcode | Phone Number | | Organization | | | | + + + + + | [facility] | [address] | [place] [address] | [phone] | + + + + + POC [...] | | | POC | performed at [facility];[address] | | LABORATORY | | | | [address];[place] | | | | | | [address] | | | | + + + + + + + + | Specimen | + + | | + + + + + + + | Performing | Address | City/State/Zipcode | Phone Number | | Organization | | | | + + + + + | [facility] | [address] | [place] [address] | [phone] | + + + + + POC Glucose (11/22/2019 9:28 AM PDT) + + + + + + | Component | Value | Ref Range | Performed | Pathologist | | | | | At | Signature | + + + + + + | Glucose, | 92Comment: Testing | 65 - 99 mg/dL | [facility] | | | POC | performed at [facility];[address] | | LABORATORY | | | | [address];[place] | | | | | | [address] | | | | + + + + + + + + | Specimen | + + | | + + + + + + + | Performing | Address | City/State/Zipcode | Phone Number | | Organization | | | | + + + + + | [facility] | [address] | [place] [address] | [phone] | + + + + + Magnesium (11/22/2019 5:18 AM PDT) + + + + + + | Component | Value | Ref Range | Performed | Pathologist | | | | | At | Signature | + + + + + + | Magnesium | 1.3 (L)Comment: Testing | 1.7 - 2.4 mg/dL | [facility] | | | | performed at [facility];[address] | | LABORATORY | | | | [address];[place] | | | | | | [address] | | | | + + + + + + + + | Specimen | + + | Blood | + + + + + + + | Performing | Address | City/State/Zipcode | Phone Number | | Organization | | | | + + + + + | [facility] | [address] | [place] [address] | [phone] | + + + + + Protime [...] | | | | | performed at [facility] | | | | | | [facility];[place], [place] | | | | | | [address] | | | | + + + + + + + + | Specimen | + + | Blood | + + + + + + + | Performing | Address | City/State/Zipcode | Phone Number | | Organization | | | | + + + + + | [facility] | [address] | [place] [address] | [phone] | + + + + + CBC [...] LABORATORY | | | | performed at [facility] | | | | | | [address];[place], [place] | | | | | | [address] | | | | | | | | | | + + + + + + + + | Specimen | + + | Blood | + + + + + + + | Performing | Address | City/State/Zipcode | Phone Number | | Organization | | | | + + + + + | [facility] | [address] | [place] [address] | [phone] | + + + + + Comprehensive [...] 52 (L)Comment: GFR <60: | >60 | [facility] | | | GFR | CHRONIC [...] | | | | | | MDRD IDNM traceable | | | | | | equation.Testing | | | | | | performed at [facility] | | | | | | [facility];[place], [place] | | | | | | [address] | | | | + + + + + + + + | Specimen | + + | Blood | + + + + + + + | Performing | Address | City/State/Zipcode | Phone Number | | Organization | | | | + + + + + | [facility] | [address] | [place] [address] | [phone] | + + + + + Basic [...] | | | | | performed at [facility];[address] | | | | | | [facility];[place], [place] | | | | | | [address] | | | | + + + + + + + + | Specimen | + + | Blood | + + + + + + + | Performing | Address | City/State/Zipcode | Phone Number | | Organization | | | | + + + + + | [facility] | [address] | [place] [address] | [phone] | + + + + + documented [...] | | | | AC, NPO, Daytime 5954-3010 Use | | | | | | | NIGHT DOSE for doses scheduled: | | | | | | | HS, Nighttime 1178-9926 If | | | | | | [...] 10:31 | | | | | Starting [facility] 11/23/19 at 1027 | | AM [...] PM PDT | | | | | [facility] 11/23/19 at 1115, Please | | [...]
--- OUTSIDE RECORDS SUMMARY | ~2020-02-13 | XMS | Clinical Summary ---
Demographics + + + | Address | [address] | | | [place] [address] | + + + | Home Phone | | + + + | Preferred Language | Unknown | + + + | Marital Status | Legally | + + + | Mandaeism Affiliation | Unknown | + + + [...] Team Providers + +------+ + | Care Orthopedic Surgeon Name | Role | Phone | + [...] ) | | 2020 | | | Sterilizer Machine Operator | | +--------+ + + [...] pleural | | 2020 | Visit | | | space ([facility]) (Primary | | | | | | [...] disease; Chronic | | | | | Charlene, DO Scottie, | pain syndrome; CKD | | 11/28/ | | | Fredrick Navas MD | (chronic kidney | | 2020 | | | Sanaz Vásquez, | disease), stage III | | | | | Romario Dawson, | ([facility]); Empyema of | | | | | MD | pleural space ([facility]); | | | | | | Essential | | | | | | hypertension, | | | | | | benign; Pneumonia of | | | | | | right lower lobe | | | | | | due to methicillin | | | | | | resistant | | | | | | Staphylococcus | | | | | | aureus (MRSA) ([facility]); | | | | | | 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, without | | | | | | long-term current | | | | | | use of insulin | | | | | | ([facility]); Pulmonary | | | | | | nodules; | | | | | | Thrombocytosis | | | | | | ([facility]); Loculated | | | | | | pleural effusion; | | | | | | EVA (acute kidney | | | | | | injury) ([facility]); | | | | | | Sepsis, due to | | | | | | unspecified | | | | | | organism, | | | | | | unspecified whether | | | | | | acute organ | | | | | | dysfunction present | | | | | | ([facility]); Chronic | | | | | | obstructive | | | | | | pulmonary disease, | | | | | | unspecified COPD | | | | | | type ([facility]); Weakness | | | | | | [...] | | | POC | performed at [facility];[address] | | LABORATORY | | | | [address];[place], [place] | | | | | | [address] | | | | + + + + + + + + | Specimen | + + | | + + + + + + + | Performing | Address | City/State/Zipcode | Phone Number | | Organization | | | | + + + + + | [facility] | [address] [facility] | [place] [address] | [phone] | + + + + + XR [...] LABORATORY | | | | performed at [facility];[address] | | | | | | [address];[place] | | | | | | [address] | | | | | | | | | | + + + + + + + + | Specimen | + + | Blood | + + + + + + + | Performing | Address | City/State/Zipcode | Phone Number | | Organization | | | | + + + + + | [facility] | [address] | [place] [address] | [phone] | + + + + + XR [...] | | | Serum | performed at [facility];888 | mmol/L | LABORATORY | | | | [address];[place], [place] | | | | | | [address] | | | | + + + + + + + + | Specimen | + + | Blood | + + + + + + + | Performing | Address | City/State/Zipcode | Phone Number | | Organization | | | | + + + + + | [facility] | [address] [facility] [address] | [place] [address] | [phone] | + + + + + Basic [...] | | | | | performed at [facility], [address] | | | | | | [facility], | | | | | | [place] [address] | | | | + + + + + + + + | Specimen | + + | Blood | + + + + + + + | Performing | Address | City/State/Zipcode | Phone Number | | Organization | | | | + + + + + | [facility] | [address] | [place] [address] | [phone] | + + + + + DIAGNOSTIC [...] by: Addis, | | | Calderon Reese Sign Date/Time: 11/24/2019 7:54 AM | | + [...] | | | | | performed at [facility];[address] | | | | | | [address];[place], [place] | | | | | | [address] | | | | + + + + + + + + | Specimen | + + | Blood | + + + + + + + | Performing | Address | City/State/Zipcode | Phone Number | | Organization | | | | + + + + + | [facility] | [address] | [place] [address] | [phone] | + + + + + Culture, [...] | | LABORATORY | | | | Blvd, [place] | | | | | | [id number]: Testing | | | | | | performed at [facility], [address] | | | | | | [address], | | | | | | [place] [address] | | | | + + + + + + + + | Specimen | + + | Body Fluid - Pus | | specimen (specimen) | + + + + + + + | Performing | Address | City/State/Zipcode | Phone Number | | Organization | | | | + + + + + | [facility] | [address] | [place] [address] | [phone] | + + + + + Medical Cytology (11/23/2019 10:55 AM PDT) + + | Specimen | + + | Body Fluid - Pus | | specimen (specimen) | + + + + + | Narrative | Performed At | + + + | ORDERING | [facility] | | PHYSICIAN:Calderon Leggett MD PATIENT [...] | | LABORATORY:Technical preparation was performed by [facility], | | | [address] [place] [address] (Watch Repairer: | | | Sebas Tolliver D.O.; CLIA#: [id number]).Professional interpretation | | | was performed by [facility], [facility], [facility] | | | [place] [address] (Watch Repairer: Leif | | | Hugh Layne; CLIA#: [id number]).6 Diagnostician: Hector Bryant | | | CT [...] | | |Technical preparation was performed by [facility], [address] [place] [address] (Watch Repairer: Sebas Tolliver D.O.; CLIA#: [id number]). | | |Professional interpretation was performed by [facility], [facility], [address] [place] [address] (Watch Repairer: Leif Layne M.D.; CLIA#: [id number]).6 | | | | | |Diagnostician: Hector Bryant CT ([facility]) | | |Top Cutter | | |Diagnostician: Leif Layne MD | [...] | | | clinician's orders. A 12 Syrian locking pigtail catheter is placed. | | [...] the | | clinician's orders. A 12 Syrian locking pigtail catheter is placed. | | [...] | INR | 1.2Comment: REFERENCE | | [facility] | | | | RANGE:0.9 - [...] | | | | | performed at [facility];[address] | | | | | | [address];[place] | | | | | | [address] | | | | + + + + + + + + | Specimen | + + | Blood | + + + + + + + | Performing | Address | City/State/Zipcode | Phone Number | | Organization | | | | + + + + + | [facility] | [address] | [place] [address] | [phone] | + + + + + Magnesium (11/22/2019 5:18 AM PDT) + + + + + + | Component | Value | Ref Range | Performed | Pathologist | | | | | At | Signature | + + + + + + | Magnesium | 1.3 (L)Comment: Testing | 1.7 - 2.4 mg/dL | [place] | | | | performed at [facility];[address] | | LABORATORY | | | | [address];[place] | | | | | | [address] | | | | + + + + + + + + | Specimen | + + | Blood | + + + + + + + | Performing | Address | City/State/Zipcode | Phone Number | | Organization | | | | + + + + + | [facility] | [address] | [place] [address] | [phone] | + + + + + from [...] | [employer] | [employer] | [id number] | 06/28/19 | [phone] | | Medica | | MEDICAID HMO | HEALTH | | 13-Pre | 1 | | id | | | MDCD | | sent | | | | | | [place] | | | | | | + +--------+ +--------+ +---------+--------+ | [employer] | MODA | [id number] | | [phone] | | Medica | | MEDICAID HMO [...] Self | [birth year] | [address] | | | al/Fam | | 1964 | [phone] | [place], [place] | | | charlie | | | 2 (Home) | [address] | + +--------+ +--------+ + + | Phoenix Dangelo | Person | Self | [birth year] | [address] | | | al/Fam | | 1964 | [address] | [place], [place] | | | charlie | | | 2 (Home) | [address] | + +--------+ +--------+ + + Advance Directives + + + + + | Type | Date Recorded | Patient | Explanation | | | | Rn Examiner | | + + + + + | Power of | | | | | Printed Circuit Boards Plasma Etcher | | | | + + + [...]
--- OUTSIDE RECORDS SUMMARY | ~2020-02-13 | XMS | Encounter Summary ---
Demographics + + + | Address | [address] | | | [place] [address] | + + + | Home Phone [...] Author + + + | Author | [facility] | | | and [place] | + + + | Organization | [facility] | | | [...] Team Providers + +------+ + | Care Ecommerce Marketing Specialist Name | Role | Phone | [...] + + | 12/07/ | Telephone | [facility] | Leif Kenyon DO | Coordination Of Care | | 2020 | | INFECTIOUS DISEASE | [address] | | | | | [address] | [place] [address] | | | | | [place], [place] | [phone] | | | | | [address] | | | | | | [phone] | | | +--------+ + + + [...] Miscellaneous Notes Telephone Encounter - Kelsey Martínez Exhauster Engineer - 12/08/2019 10:40 AM PDTPatient inf ormed. [...]
--- OUTSIDE RECORDS SUMMARY | ~2020-02-13 | XMS | Encounter Summary ---
Demographics + + + | Address | [address] | | | [place] [address] | + + + | Home Phone [...] Team Providers + +------+ + | Care Cigarette Machine Operator Name | Role | Phone | + +------+ + | Roberth Gaspar MD | PCP | | + +------+ + Encounter Details +--------+ + + + + | Date | Type | Department | Care Team | Description | +--------+ + + + + | 11/04/ | Orders Only | [facility] | Conversion | | | 2017 | | NEPHROLOGY [place] | Transaction, | | | | | [address] | Provider Unknown | | | | | [address] [place], [place] | | | | | | [address] | (Fax) | | | | | [phone] | | | +--------+ + + + [...]
--- OUTSIDE RECORDS SUMMARY | ~2020-02-13 | XMS | Encounter Summary ---
Demographics + + + | Address | [address] | | | [place] [address] | + + + | Home Phone | | + + + | Preferred Language | Unknown | + + + | Marital Status | Legally | + + + | Confucianism Affiliation | Unknown | + + + | Race | White | + + + | Ethnic Group | Not or | + + + Author + + + | Author | [facility] | | | and [place] | + + + | Organization | [facility] | | | [...] Team Providers + +------+ + | Care Assault Boat Coxswain Name | Role | Phone | + +------+ + | Roberth Gaspar MD | PCP | | + +------+ + Encounter Details +--------+ + + + + | Date | Type | Department | Care Team | Description | +--------+ + + + + | 10/27/ | Orders Only | [facility] | Cesar Hart MD | | | 2017 | | NEPHROLOGY [place] | [address] | | | | | [address] | [address] [place], [place] | | | | | [address] [place], [place] | [address] | | | | | [address] | | | | | | [phone] | | | +--------+ + + + [...]
--- OUTSIDE RECORDS SUMMARY | ~2020-02-13 | XMS | Encounter Summary ---
Demographics + + + | Address | [address] | | | [place] [address] | + + + | Home Phone [...] Author + + + | Author | [facility] | | | and [place] | + + + | Organization | [facility] | | [...] Team Providers + +------+ + | Care Retail Aide Name | Role | Phone | + [...] | hand | [address] | | | | n | numbness | [address] | [place], | | | | | Hand | [place], | [place] [address] | | | | | weakness | [place] [address] | Phone: | | | | | History of | Phone: | [phone] | | | | | diabetes | [phone] | Fax: | | | | | mellitus | Fax: | [phone] | | | | | Procedures | [phone] | | | | | | DOS [...] PHYSIATRY [address] | MD [address] | polyneuropathy | | | | [address] | [place] | (Primary Dx); | | | | [place] | [address] | Bilateral hand | | | | [address] | | numbness; Hand | | | | [phone] | | weakness; History of | | [...] might be different fro m the original. [facility] Physical Medicine & Rehabilitation [address] [place] [address], [facility] [address] [place] [address] Test Date: 10/06/2016 Patient Name: Petra Dangelo : 1965 Physician: Moise Ceballos MD (Jr.) MR #: [id number] Sex: Female Referring Physician: Roberth Gaspar MD [...] nds which she describes as loss of investment underwriter strength. She reports numbness in both feet [...] to mid-forelegs bilaterally. She has 4/5 hand investment underwriter strength bilaterally. The remainder of strength is [...] may represent possible left ulnar neuropathy at [facility] s jennifer l versus multi-focal mono neuropathy. [...]
--- OUTSIDE RECORDS SUMMARY | ~2020-02-13 | XMS | Encounter Summary ---
Demographics + + + | Address | [address] | | | [place] [address] | + + + | Home Phone | | + + + | Preferred Language | Unknown | + + + | Marital Status | Legally | + + + | Taoist Affiliation | Unknown | + + + | Race | White | + + + | Ethnic Group | Not or | + + + Author + + + | Author | [facility] | | | and [place] | + + + | Organization | [facility] | | [...] Team Providers + +------+ + | Care Molder Inflated Ball Name | Role | Phone | + [...] | hand | [address] | | | | n | numbness | [address] | [place], | | | | | Hand | [place], | [place] [address] | | | | | weakness | [place] [address] | Phone: | | | | | History of | Phone: | [phone] | | | | | diabetes | [phone] | Fax: | | | | | mellitus | Fax: | [phone] | | | | | Procedures | [phone] | | | | | | DOS [...] PHYSIATRY [address] | MD [address] | polyneuropathy | | | | [address] | [place] | (Primary Dx); | | | | [place] | [address] | Bilateral hand | | | | [address] | | numbness; Hand | | | | [phone] | | weakness; History of | | [...] this encounter Patient Instructions Patient Instructions Moise Cebalols MD - 10/06/2016 5:19 PM PDTLaboratory tests [...] might be different fro m the original. [facility] Physical Medicine & Rehabilitation [address] [place] [address], [facility] [address] [place] [address] Test Date: 10/06/2016 Patient Name: Petra Dangelo : 1965 Physician: Moise Ceballos MD (Jr.) MR #: [id number] Sex: Female Referring Physician: Roberth Gaspar MD [...] nds which she describes as loss of anesthetist strength. She reports numbness in both feet [...] to mid-forelegs bilaterally. She has 4/5 hand anesthetist strength bilaterally. The remainder of strength is [...] may represent possible left ulnar neuropathy at [facility] s jennifer l versus multi-focal mono neuropathy. [...]
--- OUTSIDE RECORDS SUMMARY | ~2020-02-13 | XMS | Encounter Summary ---
Demographics + + + | Address | [address] | | | [place] [address] | + + + | Home Phone [...] Team Providers + +------+ + | Care Icing Maker Name | Role | Phone | [...] + + | 12/04/ | Office | [facility] | Andrew Cross DO | Empyema of pleural | | 2020 | Visit | INFECTIOUS DISEASE | [address] | space ([facility]) (Primary | | | | [address] | [place] [address] | Dx); MRSA infection | | | | [place], [place] | [phone] | | | | | [address] | | (methicillin-resista | | | | [phone] | | nt Staphylococcus | | | [...]
--- OUTSIDE RECORDS SUMMARY | ~2020-02-13 | XMS | Encounter Summary ---
Demographics + + + | Address | [address] | | | [place] [address] | + + + | Home Phone [...] Providers + +------+ + | Care Machine Binder Stripper Name | Role | Phone | + +------+ + | Roberth Gaspar MD | PCP | | + +------+ + Encounter Details +--------+ + + + + | Date | Type | Department | Care Team | Description | +--------+ + + + + | 01/22/ | Orders Only | [facility] | Provider, | | | 2018 | | SYSTEM GENERIC OP | [address] | | | | | CONVERSION [address] | [place] | | | | | [address] [place], [place] | [place] [address] | | | | | [address] | | | | | | [phone] | | | +--------+ + + + [...]
--- OUTSIDE RECORDS SUMMARY | ~2020-02-13 | XMS | Clinical Summary ---
Demographics + + + | Address | [address] | | | [place] [address] | + + + | Home Phone [...] Team Providers + +------+ + | Care Provider Relations Consultant Name | Role | Phone | [...] ) | | 2020 | | | Manager Hair | | +--------+ + + + + [...] 2020 | Visit | | | space ([facility]) (Primary | | | | | [...] | | | | Romario Dawson, | ([facility]); Empyema of | | | | | MD | pleural space ([facility]); | | | | | | [...] | | | | | aureus (MRSA) (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); Pulmonary | | | | | | nodules; | | | | | | Thrombocytosis | | | | | | ([facility]); Loculated | | | | | | pleural effusion; | | | | | | EVA (acute kidney | | | | | | injury) ([facility]); | | | | | | Sepsis, due to | | | | | | unspecified | | | | | | organism, | | | | | | unspecified whether | | | | | | acute organ | | | | | | dysfunction present | | | | | | ([facility]); Chronic | | | | | | obstructive | | | | | | pulmonary disease, | | | | | | unspecified COPD | | | | | | type ([facility]); Weakness | | | | | [...] | | POC | performed at [facility];[address] | | LABORATORY | | | | [address];[place], [place] | | | | | | [address] | | | | + + + + + + + + | Specimen | + + | | + + + + + + + | Performing | Address | City/State/Zipcode | Phone Number | | Organization | | | | + + + + + | [facility] | [address] | [place] [address] | [phone] | + + + + + XR [...] | | | | performed at [facility];[address] | | | | | | [address];[place] | | | | | | [address] | | | | | | | | | | + + + + + + + + | Specimen | + + | Blood | + + + + + + + | Performing | Address | City/State/Zipcode | Phone Number | | Organization | | | | + + + + + | [facility] | [address] | [place] [address] | [phone] | + + + + + XR [...] | | Serum | performed at [facility];[address] | mmol/L | LABORATORY | | | | [address];[place], [place] | | | | | | [address] | | | | + + + + + + + + | Specimen | + + | Blood | + + + + + + + | Performing | Address | City/State/Zipcode | Phone Number | | Organization | | | | + + + + + | [facility] | [address] | [place] [address] | [phone] | + + + + + Basic [...] | | | | | | [facility], | | | | | | [place] [address] | | | | + + + + + + + + | Specimen | + + | Blood | + + + + + + + | Performing | Address | City/State/Zipcode | Phone Number | | Organization | | | | + + + + + | [facility] | [address] | [place] [address] | [phone] | + + + + + DIAGNOSTIC [...] | | | | performed at [facility];[address] | | | | | | [address];[place], [place] | | | | | | [address] | | | | + + + + + + + + | Specimen | + + | Blood | + + + + + + + | Performing | Address | City/State/Zipcode | Phone Number | | Organization | | | | + + + + + | [facility] | [address] | [place] [address] | [phone] | + + + + + Culture, [...] | LABORATORY | | | | [address], [place] | | | | | | [id number]: Testing | | | | | | performed at [facility], [address] | | | | | | [address], | | | | | | [place] [address] | | | | + + + + + + + + | Specimen | + + | Body Fluid - Pus | | specimen (specimen) | + + + + + + + | Performing | Address | City/State/Zipcode | Phone Number | | Organization | | | | + + + + + | [facility] | [address] | [place] [address] | [phone] | + + + + + Medical Cytology (11/23/2019 10:55 AM PDT) + + | Specimen | + + | Body Fluid - Pus | | specimen (specimen) | + + + + + | Narrative | Performed At | + + + | ORDERING | [facility] | | PHYSICIAN:Calderon Leggett MD PATIENT [...] | | LABORATORY:Technical preparation was performed by [facility], | | | [address] [place] [address] (Hydro Excavation Operator: | | | Sebas Tolliver D.O.; CLIA#: [id number]).Professional interpretation | | | was performed by [facility], [facility], [facility] | | | [place] [address] (Hydro Excavation Operator: Leif | | | Hugh Layne; CLIA#: [id number]).6 Diagnostician: Hector Bryant | | | CT [...] | | |Technical preparation was performed by [facility], [address] [place] [address] (Hydro Excavation Operator: Sebas Tolliver D.O.; CLIA#: [id number]). | | |Professional interpretation was performed by [facility], [facility], [address] [place] [address] (Hydro Excavation Operator: Leif Layne M.D.; CLIA#: [id number]).6 | | | | | |Diagnostician: Hector Bryant CT ([facility]) | | |Information Systems Analyst | | |Diagnostician: Leif Layne MD | [...] | | | clinician's orders. A 12 [place]ese locking pigtail catheter is placed. | | [...] the | | clinician's orders. A 12 [place] locking pigtail catheter is placed. | | [...] | INR | 1.2Comment: REFERENCE | | [facility] | | | | RANGE:0.9 - [...] | | | | performed at [facility];[address] | | | | | | [address];[place] | | | | | | [address] | | | | + + + + + + + + | Specimen | + + | Blood | + + + + + + + | Performing | Address | City/State/Zipcode | Phone Number | | Organization | | | | + + + + + | [facility] | [address] | [place] [address] | [phone] | + + + + + Magnesium (11/22/2019 5:18 AM PDT) + + + + + + | Component | Value | Ref Range | Performed | Pathologist | | | | | At | Signature | + + + + + + | Magnesium | 1.3 (L)Comment: Testing | 1.7 - 2.4 mg/dL | KR | | | | performed at [facility];[address] | | LABORATORY | | | | [address];[place] | | | | | | [address] | | | | + + + + + + + + | Specimen | + + | Blood | + + + + + + + | Performing | Address | City/State/Zipcode | Phone Number | | Organization | | | | + + + + + | [facility] | [address] | [place] [address] | [phone] | + + + + + from [...] | [employer] | [employer] | [id number] | 06/28/19 | [phone] | | Medica | | MEDICAID HMO | HEALTH | | 13-Pre | 1 | | id | | | MDCD | | sent | | | | | | [place]MO [place] | | | | | | + +--------+ +--------+ +---------+--------+ | [employer] | [employer] | [id number] | | [phone] | | Medica | | MEDICAID HMO [...] charlie | | | 2 (Home) | [address] | + +--------+ +--------+ + + | Phoenix Dangelo | Person | Self | [birth year] | [address] | | | al/Fam | | 1964 | [address] | [place], [place] | | | charlie | | | 2 (Home) | [address] | + +--------+ +--------+ + + Advance Directives + + + + + | Type | Date Recorded | Patient | Explanation | | | | Microbiology Lab Manager | | + + + + + | Power of | | | | | Attendant Campground | | | | + + + [...]
--- OUTSIDE RECORDS SUMMARY | ~2020-02-13 | XMS | Encounter Summary ---
Demographics + + + | Address | [address] | | | [place] [address] | + + + | Home Phone [...] + + + | Author | [facility] | | | and [place] | + + + | Organization | [facility] | | | [...] Providers + +------+ + | Care Chemical Dependency Professional Name | Role | Phone | [...] + + | 12/07/ | Telephone | [facility] | Leif Kenyon DO | Coordination Of Care | | 2020 | | INFECTIOUS DISEASE | [address] | | | | | [address] | [place] [address] | | | | | [place], [place] | [phone] | | | | | [address] | | | | | | [phone] | | | +--------+ + + + [...] Miscellaneous Notes Telephone Encounter - Kelsey Martínez Golf Caddy - 12/08/2019 10:40 AM PDTPatient inf ormed. [...]
--- OUTSIDE RECORDS SUMMARY | ~2020-02-13 | XMS | Encounter Summary ---
Demographics + + + | Address | [address] | | | [place] [address] | + + + | Home Phone [...] Team Providers + +------+ + | Care Harvest Contractor Name | Role | Phone | + [...] + + | 01/05/ | Office | [facility] | Oc Mooney, | Peripheral | | 2017 | Visit | PHYSIATRY [address] | [address] | polyneuropathy | | | | [address] | [place] | (Primary Dx); | | | | [place] | [address] | Neuropathic pain; | | | | [address] | | Vitamin B12 | | | | [phone] | | deficiency; Angular | | | [...] encounter Patient Instructions Patient Instructions Donna Jara, Coffee Farmer - 01/05/2017 4:00 PM PDTBegin the consumption [...] has no apparent deficits with short or fdc memory. The cranial nerves appear grossly intact. Subjective sensory change in both hands, unchanged compared to 10/06/2016. 4/5 hand acute care surgeon bilaterally. Remainder of strength normal in major [...]
--- OUTSIDE RECORDS SUMMARY | ~2020-02-13 | XMS | Encounter Summary ---
Demographics + + + | Address | [address] | | | [place] [address] | + + + | Home Phone [...] Phone | + + +---------+ + | Mialna Bullock | ECON | Unknown | | + + +---------+ + | Simone [place] | ECON | Unknown | | + + +---------+ + Care Team Providers + +------+ + | Care Cutter Operator Helper Name | Role | Phone [...] + + | 05/18/ | Telephone | [facility] | Oc Mooney, | Medication Refill | | 2017 | | [address]YSIATRY [address] | MD [address] | | | | | [address] | [place] | | | | | [place] | [address] | | | | | [address] | | | | | | [phone] | | | +--------+ + + + [...] this medication. elephone Encounter - Donna Jara, Impregnator Electrolytic Capacitors - 05/18/2017 10:26 AM PSTCalled to speak [...]
--- OUTSIDE RECORDS SUMMARY | ~2020-02-13 | XMS | Encounter Summary ---
Demographics + + + | Address | [address] | | | [place] [address] | + + + | Home Phone [...] Team Providers + +------+ + | Care Turkey Farmer Name | Role | Phone | [...] PHYSIATRY [address] | MD [address] | | | | | [address] | [place] | | | | | [place] | [address] | | | | | [address] | | | | | | [phone] | | | +--------+--------+ + + + [...] this refill. elephone Encounter - Donna Jara, Founder Ceo & President - 03/03/2017 5:05 PM PDTCalled to speak to Petra Dangelo regarding medication refill request for medication gabapentin. Is Petra Dangelo currently taking 1 capsule by mouth three times daily? Left a voicemail message to call our office back. Electronically si gned by Donna Jara Founder Ceo & President at 03/03/2017 5:07 PM PDTdocumented in this e ncounter Plan of Treatment Not on filedocumented as of this encounter Visit Diagnoses Not on filedocumented in this encounter"
--- OUTSIDE RECORDS SUMMARY | ~2020-02-13 | XMS | Encounter Summary ---
Demographics + + + | Address | [address] | | | [place] [address] | + + + | Home Phone [...] Team Providers + +------+ + | Care Outreach Coordinator Name | Role | Phone | [...] PHYSIATRY [address] | MD [address] | | | | | [address] | [place], [place] | | | | | [place], [place] | [address] | | | | | [address] | | | | | | [phone] | | | +--------+ + + + [...]
--- OUTSIDE RECORDS SUMMARY | ~2020-02-13 | XMS | Encounter Summary ---
Demographics + + + | Address | [address] | | | [place] [address] | + + + | Home Phone [...] Providers + +------+ + | Care Systems Accountant Name | Role | Phone | + +------+ + | Roberth Gaspar MD | PCP | | + +------+ + Encounter Details +--------+ + + + + | Date | Type | Department | Care Team | Description | +--------+ + + + + | 10/27/ | Orders Only | [facility] | Cesar Hart MD | | | 2017 | | NEPHROLOGY [place] | [address] | | | | | [address] | [address] [place], [place] | | | | | [address] [place], [place] | [address] | | | | | [address] | | | | | | [phone] | | | +--------+ + + + [...]
--- OUTSIDE RECORDS SUMMARY | ~2020-02-13 | XMS | Encounter Summary ---
Demographics + + + | Address | [address] | | | [place] [address] | + + + | Home Phone | | + + + | Preferred Language | Unknown | + + + | Marital Status | Legally | + + + | Oriental Orthodox Affiliation | Unknown | + + [...] Team Providers + +------+ + | Care Shipping And Receiving Associate Name | Role | Phone | + +------+ + | Roberth Gaspar MD | PCP | | + +------+ + Encounter Details +--------+ + + + + | Date | Type | Department | Care Team | Description | +--------+ + + + + | 09/12/ | Orders Only | [facility] | JamCesar braden MD | Essential | | 2020 | | NEPHROLOGY [place] | [address] | hypertension, benign | | | | [address] | [address] [facility] [place] | (Primary Dx); CKD | | | | [address] | [address] | (chronic kidney | | | | [place], [place] | | disease), stage III | | | | [address] | | (HCC) | | | | [phone] | | | +--------+ + + + [...]
[~2020-02-13 09:39] MED LIST changes: +ATORVASTATIN CA10 MG PO; +BASAGLAR K100 UNIT/1 SUB-Q; +CALCIUM500 MG PO; +CELECOXIB200 MG PO; +DICLOFENAC SOD100 G1 TOP; +LEVOXYL200 MCG PO; +LO-DOSE ASPIRIN81 MG PO; +METOPROLOL TART25 MG PO; +MULTI VITAMIN1 EACH PO; +TYLENOL EXTRA500 MG PO; +VITAMIN D325 MC2 PO; +WIXELA 100-501 EACH INH; +WIXELA 500-501 EACH INH
--- OUTSIDE RECORDS SUMMARY | 2020-02-13 09:42 | XMS ---
PreManage Notification: PHOENIX MISHRA Security Brim Flexer Events No recent Security Events currently on file CRITERIA MET - Group Notification - 6 ED Visits in 6 Months - [facility] - Has Care Guidelines - PDMP - [facility] - 2 Visits in 30 Days CARE PROVIDERS Name Unknown Long Term Facility Current PHONE: [phone] JOANN RODRIGUEZ Internal Medicine: Geriatric Medicine 12/20/2019-Current PHONE: [phone] [facility] 08/05/2018-Current CELINA Graham PHONE: [phone] Saleem has no Care Guidelines for this patient. Care History Medical/Surgical 02/23/2019 [facility] [place] [facility] CAUTION PRESCRIBING NARCOTICS - PATIENT IS UNDER PAIN PLAN WITH PCP DR CELINA ROJAS IF PATIENT NEEDS PAIN MED ACUTELY - GIVE 2-3 DAYS WORTH RX, THEN PATIENT IS TO CONTACT PCP FOR FURTHER MEDS.\T\nbsp; DO NOT TELL HER TO TAKE MORE OF WHAT SHE IS CURRENTLY ON.\T\nbsp; THIS WAS REQUESTED BY PCP DR ROJAS. [facility]12 MO.) [facility] NOTE: Visits indicate total known visits. 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 - Essential (primary) hypertension - Allergy status to penicillin - Shortness of breath - Other snf (current) drug therapy - Chronic obstructive pulmonary [...] and joints of right foot - Other terminal worker (current) drug therapy - Allergy status to serum and vaccine status - Blister (nonthermal), right foot, initial encounter - Type 2 diabetes mellitus without complications INPATIENT VISIT TRACKING (12 MO.) 02/01/2020 17:31 [facility] TYPE: Medical Surgical COMPLAINT: - BIMALCOLAR FRACTURE W/ DISCLOCATION DIAGNOSES: - Chronic obstructive pulmonary disease, unspecified - Morbid (severe) obesity due to excess calories - senior living (current) use of aspirin - Displaced pilon fracture of left tibia, initial encounter for - Type 2 diabetes mellitus without complications - Hypothyroidism, unspecified - Chronic pain syndrome - Morbid (severe) obesity due to excess calories - Chronic pain syndrome - 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 - Hypothyroidism, unspecified - Gastro-esophageal reflux disease without esophagitis - Hyperlipidemia, unspecified - Unspecified fall, initial encounter - marine 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 - 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 - Gastro-esophageal reflux disease without esophagitis - Chronic obstructive pulmonary disease, unspecified - Essential (primary) hypertension - Essential (primary) hypertension - Unspecified fall, initial encounter - Hyperlipidemia, unspecified - Type 2 diabetes mellitus without complications [facility] DIAGNOSES: - Essential [...] insomnia - Hypothyroidism, unspecified 11/11/2019 18:41 [facility] TYPE: Medical Surgical COMPLAINT: - PNEUMONIA DIAGNOSES: - Obesity, unspecified - Chronic pain syndrome - Other snf (current) drug therapy - Severe sepsis without septic shock - Tachycardia, unspecified - Other specified sepsis - Anemia, unspecified - Body mass index (BMI) 45.0-49.9, adult - Allergy status to penicillin - Urinary tract infection, site not specified - Hypothyroidism, unspecified - Hyperlipidemia, unspecified - Hypomagnesemia - Unspecified asthma, uncomplicated - marine oil terminal superintendent (current) use of systemic steroids - Sepsis due to Escherichia coli [E. 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
[2020-02-13] MEDS ORDERED: BAYER CHEWABLE81 MG PO (10:01)
[2020-02-13] MEDS ORDERED: MILK OF MA400 MG/5 M PO (10:02)
[2020-02-13] MEDS ORDERED: BUDESONIDE0.5 MG/2 M INH (10:04)
[2020-02-13] MEDS ORDERED: MORPHINE SULFAT15 M1 PO (10:06)
[2020-02-13] MEDS ORDERED: GABAPENTIN600 MG PO (10:06)
--- NOTE | 2020-02-13 13:34 | EKG ---
[facility] [address] [facility] [place] [address] Signed Sinus tachycardia Low voltage QRS Borderline ECG When compared with ECG of 02-FEB-2020 07:44, Vent. rate has increased BY 39 BPM Confirmed by ANDREW SANABRIA DO ([id number]) on 02/13/2020 1:34:08 PM Electronically Signed By: ANDREW SANABRIA DO 02/13/20 1334 PATIENT NAME: CHINOROMYPHOENIX Electrocardiogram DATE OF : 69 PHYSICIAN: ANDREW SANABRIA DO REPORT #: [id number] REPORT IS CONFIDENTIAL AND NOT TO BE RELEASED WITHOUT AUTHORIZATION
--- NOTE | 2020-02-13 14:15 | NUR ---
REPORT RECEIVED FROM INDIRA JOSEPH.
[2020-02-13] MEDS ORDERED: DULCOLAX10 MG PR (14:54)
[2020-02-13] MEDS ORDERED: FLEET ENEMA133 ML PR (14:56)
[2020-02-13] MEDS ORDERED: IPRAT-ALBUT 0.5-3 ML INH (14:59)
[2020-02-13] MEDS ORDERED: DAILY MULTIPLE1 EACH PO (15:01)
[2020-02-13] MEDS ORDERED: NYSTATIN1 EAC2 TOP (15:10)
--- NOTE | 2020-02-13 17:15 | NUR ---
PT ADMITTED TO CCU AT APPROX 1445. EXTERNAL FIXATION DEVICE IN LLE. PT C/O 7/10 PAIN IN LLE. 10/10 PAIN WITH TOUCH OR MOVEMENT. 1 MG DILAUDID GIVEN AT 1511. XEROFORM GAUZE COVERING PIN SITES. REMOVED AND SITES LEFT OPEN TO AIR PER DROsmin'S ORDERS. LLE PROPPED WITH ROLLED TOWEL. IJ RT SIDE, 1 L LR AND 1 L NS BOLUSED THROUGH SITE. ADDITIONAL IV SITE NEEDED FOR ABX INFUSION, 22 G STARTED IN LEFT CHEST BY MILLICENT JACOBSON. SITE PATENT. LR INFUSING AT 125 ML/HR. PT BEGAN C/O OF STINGING/BURNING IN IJ SITE, SITE ASSESSED, BLOOD RETURNED NOTED AND FLUSHES WITH EASE, SALINE LOCKED UNTIL FURTHER NOTICE. LUNG SOUNDS CLEAR. SLIGHTLY TACHYCARDIC. FEVER WAS 102.4 UPON ADMISSION, RECHECKED AFTER 1000 MG TYLENOL, MOST RECENT TEMP 99.0. BG OF 243. 5 UNITS OF HUMALOG GIVEN. PT WAS C/O NAUSEA BUT DENIES AT THIS TIME. ATE APPROX 50 % DINNER. STILL C/O PAIN. OXYCODONE 5 MG GIVEN AT 1700. RESTING IN BED. WILL CONTINUE TO MONITOR. REPORT GIVEN TO ARABIC LINGUIST RN'S.
--- NOTE | 2020-02-13 18:46 | NUR ---
PIN SITE CARE COMPLETED, SITES CLEANSED WITH HALF STRENGTH HYDROGEN PEROXIDE PER ORDER, PURULENT DRAINAGE NOTED TO MEDIAL ANKLE PINS AND ANTERIOR ANKLE INCISION. PIN SITES LEFT OPN TO AIR PER DR. DOLAN ORDER. PT TOLERATED CARE POORLY, LEG IS VERY SENSITIVE TO TOUCH.
--- NOTE | 2020-02-13 19:10 | NUR ---
DOCUMENTATION OF INDIRA DE OLIVEIRA REVIEWED, THIS RN AGREES WITH DOCUMENTATION.
--- NOTE | 2020-02-13 20:00 | NUR ---
SHIFT REPORT RECEIVED FROM INDIRA HORNER. ASSESSMENT COMPLETED AT THIS TIME. PT IS DROWSY, BUT WAKES EASILY WHEN SPOKEN TO, ORIENTED X4. REPORTS 7/10 PAIN TO LLE, SCHEDULED TYLENOL AND GABAPENTIN GIVEN, LLE REMAINS ELEVATED ON PILLOWS WITH ICE PACKS IN PLACE. LUNGS CLEAR, RA. HR REGULAR. BOWEL TONES ACTIVE, DENIES NAUSEA AND ABDOMINAL PAIN. ALVAREZ PATENT, DRAINING YELLOW URINE. LEFT LOWER LEG HAS EXTERNAL FIXATOR IN PLACE, PIN SITES CLEANSED BY DAY SHIFT PER ORDERS, SUTURES ALSO IN PLACE. 2+EDEMA TO LLE, PULSE HEARD BY DOPPLER. IV SITES INTACT AND PATENT, FLUIDS INFUSING WNL. CB, 3 UNITS SLIDING SCALE ADMINSITERED. VITAL SIGNS STABLE. NO REQUESTS AT THIS TIME, CALL LIGHT WITHIN REACH.
--- NOTE | 2020-02-13 22:02 | NUR ---
PT RESTING COMFORTABLY, NO APPARENT DISTRESS. RESPIRATIONS EVEN AND UNLABORED, RR:17. ALVAREZ EMPTIED, UO QS. R.T. IN TO GIVE BREATHING TREATMENT AT THIS TIME.
--- NOTE | 2020-02-14 00:15 | NUR ---
ASSESSMENT COMPLETED, PT SLEEPING, WOKE EASILY WHEN SPOKEN TO. PT SLEEPING BETWEEN CARE, NO COMPLAINTS OF PAIN AT THIS TIME. REMAINDER OF ASSESSMENT REMAINS UNCHANGED. CALL LIGHT WITHIN REACH, WILL CONTINUE TO MONITOR.
--- NOTE | 2020-02-14 01:32 | NUR ---
DR. CROWELL IN UNIT, DISCUSSED IV FLUID RATE WITH PT, VITAL SIGNS AND URINE OUTPUT REVIEWED, FLUID RATE CHANGED TO 85ML/HR.
--- NOTE | 2020-02-14 02:11 | NUR ---
PT SLEEPING SOUNDLY, LIGHTLY SNORING. NO APPARENT DISTRESS. RESPIRATIONS EVEN AND UNLABORED. RR:17. ALVAREZ EMPTIED. WILL ALLOW FOR REST AND CONTINUE TO MONITOR.
--- NOTE | 2020-02-14 04:25 | NUR ---
ASSESSMENT COMPLETED. PT IS MORE ALERT AND DENIES PAIN AT THIS TIME. PT REPORTS MILD HEARTBURN, N.I.O. ENTERED FOR MAALOX, ADMINISTERED AT THIS TIME. NO OTHER CHANGES FROM PREVIOUS ASSESSMENT. PT DENIES FURTHER REQUESTS AT THIS TIME, CALL LIGHT WITHIN REACH.
--- NOTE | 2020-02-14 05:36 | PATH ---
[facility] [address] [place], [place] [address] Signed ORDERING PHYSICIAN: Greyson Myers MD PATIENT NAME: PHOENIX MISHRA GENDER: Elias : 1965 SPECIMEN(S): MOLECULAR PATHOLOGY RESULTS: SARS-CoV-2 Not Detected ADDITIONAL NOTES.: The [place] Fusion SARS-CoV-2 Assay is a multiplex real-time PCR (RT-PCR) in vitro diagnostic test intended for the qualitative detection of RNA from SARS-CoV-2 from individuals who meet COVID-19 clinical and/or epidemiological criteria. In general, SARS-CoV-2 RNA can be detected during the acute phase of infection. Positive results indicate the presence of SARS-CoV-2 RNA. Clinical correlation with patient history and other diagnostic information is necessary to determine patient infection status. Positive results do not rule out bacterial infection or co-infection with other viruses. Negative results do not preclude SARS-CoV-2 infection and should not be used as the sole basis for patient management decisions. Negative results must be combined with other clinical observations, patient history, and epidemiological information. The [place] Fusion SARS-CoV-2 Assay is not yet approved or cleared by the [place] FDA. When there are no FDA-approved or cleared tests available, and other criteria are met, FDA can make tests available under an emergency access mechanism called an Emergency Use Authorization (EUA). The EUA for this test is supported by the Rn Documentation Specialist of Health and Human Service's (HHS's) declaration that circumstances exist to justify the emergency use of in vitro diagnostics for the detection and/or diagnosis of the virus that causes COVID-19. This EUA will remain in effect for the duration of the COVID-19 declaration justifying emergency of IVDs, unless it is terminated or revoked by FDA, after which the test may no longer be used. The [place] Fusion SARS-CoV-2 Assay is for use only under EUA in US laboratories certified under the Clinical Laboratory Improvement Amendments of 1988 (CLIA) to perform high complexity tests. [facility] is certified under CLIA to perform high complexity PATIENT NAME: PHOENIX MISHRA PATHOLOGY DATE OF : [birth year] REPORT #: [id number] PHYSICIAN: RAF GARCIA PCP: JOANN RODRIGUEZ MD REPORT IS CONFIDENTIAL AND NOT TO BE RELEASED WITHOUT AUTHORIZATION [address] [address] Signed clinical laboratory testing. PERFORMING LABORATORY.: Molecular testing was performed by [facility] [address] [place], [place] [address] [address] (Bus Starter: Sebas Tolliver D.O.; CLIA#: [id number]) Diagnostician: System Interface Pathologist Electronically Signed 02/14/2020 Copies: ~ PATIENT NAME: PHOENIX MISRHA PATHOLOGY DATE OF : [birth year] REPORT #: [id number] PHYSICIAN: RAF GARCIA PCP: JOANN RODRIGUEZ MD REPORT IS CONFIDENTIAL AND NOT TO BE RELEASED WITHOUT AUTHORIZATION
--- NOTE | 2020-02-14 06:19 | NUR ---
DR. CROWELL NOTIFIED OF PT'S CRITCAL LAB VALUE, HGB: 6.9. NO ORDERS RECEIVED AT THIS TIME.
--- NOTE | 2020-02-14 06:30 | NUR ---
PT REPORTS 7/10 PAIN TO LEFT LOWER LEG, 5MG PO OXYCODONE GIVEN AT THIS TIME.
--- NOTE | 2020-02-14 07:34 | NUR ---
THIS RN IN PTS ROOM TO CLEAN UP PTS INCONTIENCE OF STOOL. PT TOLERATED OKAY GETTING TURNED WHEN A STAFF MEMEBER SUPPORTED HER LEFT FOOT. PT BACK CENTER OF BED AND IS CLEANED UP ENSURING THAT ALL ANA WAS REMOVED FROM SKIN AND AROUND ALVAREZ.
--- NOTE | 2020-02-14 07:55 | NUR ---
IN ROOM TO CHECK ON PT. NOTIFIED THIS RN THAT WE ARE GOING TO TRANSFUSE HER TODAY WITH BLOOD. CROSS AND TYPE LAB DRAWN AT THIS TIME.
--- NOTE | 2020-02-14 08:15 | NUR ---
THIS RN PROVIDED PT WITH 0.5MG OF DILUADID AFTER MOVING PT AROUND IN BED TO GET HER CLEANED UP FROM INCONTINENCE OF STOOL.
--- NOTE | 2020-02-14 08:20 | NUR ---
IN PTS ROOM TO CHECK ON PT. DR. DOLAN STATED TO KEEP FOOT ELEVATED WITH PILLOWS AND TO PUT AN ALLEVEN ON PTS LEFT HEEL, STATED TO NOT USE HEAL PROTECTORS AT THIS TIME. THIS RN TO DO WOUND CARE THIS AM PER ORDERS ON PTS LEFT FOOT AROUND PINS
--- NOTE | 2020-02-14 10:00 | NUR ---
THIS RN IN PTS ROOM TO PROVIDED PT WITH 10MG OF OXY AND 0.5MG OF DILAUDID FOR BREAK THROUGH PAIN MEDS TO GET PT MORE COMFORTABLE AFTER WORKING WITH PHYSICAL THERAPY.
--- NOTE | 2020-02-14 10:05 | NUR ---
STEFAN JACOBSON IN TO PTS TO PLACE A PICC LINE
--- NOTE | 2020-02-14 11:04 | NUR ---
PICC INSERTION NOTE ORDERS RECIEVED TO EVALUATE PHOENIX FOR POSSIBLE PICC INCERTION. AFTER REVIEWING THE CHART AND INTERVIEWING THE PT, NO ABSOLUTE CONTRAINDICCATIONS FOUND. IT IS NOTABLE THAT WE HAD A VERY HARD TIME GAINING IV ACCESS YESTERDAY IN THE ER SO ALL DUE CUTION WAS USED TODAY. THE RIGHT ARM WAS EVALUATED AND THE RIGHT BASILIC VEIN WAS IDENTIFIED AT 2CM DEPTH AND LARGE ENOUGH TO ACCEPT A 5 CM PICC. A 4 CM LINE WAS CHOSEN FOR HER THERAPY TODAY. THE ARM WAS STERILLY PREPPED AND DRAPED AND THERE WERE NO ISSUES WITH IV ACCESS, GUIDEWIRE INSERTION, INTRODUCER ADVANCEMENT OR PICC INSERTION. HER ARM WAS MANIPULATED DURING INSERTION IN ORDER TO GET THE PICC TO DROP TO A CENTRAL LOCATION. THE LINE DRAWS BLOOD AND FLUSHES EASILY. A SINGLE CXR WAS TAKEN AND DR DIAS CLEARED THE LINE FOR USE. FULL CDC RECOMMENDATIONS REGARDING INFECTION PREVENTION WERE FOLLOWED FOR THE DURATION OF THE PROCEDURE AND DRESSING APPLICATION. PRIOR TO THE START OF THE PROCEDURE, INFORMED CONSENT WAS SIGNED AND THE RISK OF INFECTION WELL BLEEDING AND BRUISING WAS EMPHASIZED FOR THE PT. PHOENIX HAS LIVED WITH A PICC LINE BEFORE BUT ALL EDUCATIONAL MATERIALS REGARDING CARE OF PICC LINES WAS LEFT WITH THE CCU FOR THE PT TO READ. SHE UNDERSTANDS TO SEEK MEDICAL ATTENTION FOR ANY QUESTIONS REGARDING HER PICC LINE.
--- NOTE | 2020-02-14 11:43 | NUR ---
IN PTS ROOM TO START FIRST UNIT OF BLOOD
--- NOTE | 2020-02-14 13:45 | NUR ---
FIRST UNIT OF BLOOD FINISHED AT THIS TIME. PT STATES THAT SHE HAS NO SYMPTOMS OF AN ADVERSE REACTION TO THE TRANSFUSION
--- NOTE | 2020-02-14 14:15 | NUR ---
NOTIFIED OF POSITIVE BLOOD CULTURE ON PT.
--- NOTE | 2020-02-14 14:31 | NUR ---
PT PUT ORDAINED MINISTER TO NOTIFY THIS RN THAT SHE NEEDED TO USE THE RESTROOM. THIS RN IN ROOM TO PUT PT ON BEDPAN DUE TO PTS UNCONTROLLED PAIN FROM THIS AM WHEN SHE WORKED WITH PHYSICAL THERAPY. PT ABLE TO TURN TO THE SIDE WELL. PT ALL CLEANED UP AND SITTING IN BED COMFORTABLY AT THIS TIME.
--- NOTE | 2020-02-14 15:58 | NUR ---
SECOND BLOOD TRANSFUSION STARTED AT THIS TIME. INFUSING INTO PICC LINE
--- NOTE | 2020-02-14 16:13 | NUR ---
PT STATES NO SYMPTOMS AT THIS TIME STEMMING FROM THE TRANSFUSION. TRANSFUSION RATE TURNED UP TO 200ML/HR, INFUSING INTO PICC LINE.
--- NOTE | 2020-02-14 17:00 | NUR ---
PT PUT RUNNER MAN LIGHT TO NOTIFY THIS RN THAT SHE WAS HAVING INCREASED PAIN AFTER WORKING WITH LENNIE FROM OCCUPATIONAL THERAPY. THIS RN AND FRANCISCA RN IN PTS ROOM TO GIVE PT 10MG OF OXY AND 0.5MG OF DILUADID PT AGREEABLE TO THIS PLAN
--- NOTE | 2020-02-14 18:45 | NUR ---
DANIEL JACOBSON AND HOMA ESPINOSA IN ROOM TO STOP TRANSFUSION. PT TOLERATING WELL.
--- NOTE | 2020-02-14 20:20 | NUR ---
SHIFT REPORT RECEIVED FROM INDIRA HANEY. ASSESSMENT COMPLETED AT THIS TIME. PT IS ALERT/ORIENTED. REPORTS DIZZINESS WHILE SITTING UP IN BED. BP STABLE AND CB, MD AWARE. PT REPORTS 7/10 PAIN TO LLE, 10MG OXYCODONE GIVEN ALONG WITH SCHEDULED TYLENOL AND GABAPENTIN. NEW ICE PACK IN PLACE. HR REGULAR, DENIES CHEST PAIN. LUNGS CLEAR, RA, DENIES SOB. BOWEL TONES ACTIVE, DENIES ABDOMINAL PAIN AND NAUSEA. SKIN HAS SCATTERED BRUISES, LLE HAS 2+EDEMA, LEG IS RED, PULSE HEARD BY DOPPLER. SUTURES ARE IN PLACE, APPEAR TIGHT; EXTERNAL FIXATOR DEVICE HAS PIN SITES X4, PURULENT DRAINAGE PRESENT. LLE ELEVATED ON 2 PILLOWS. IV SITES INTACT AND SALINE LOCKED. PICC DRESSING C/D/I, BLOOD RETURN PRESENT, FLUSHES WITHOUT RESISTANCE, FLUIDS INFUSING WNL. ALVAREZ PATENT OF DILUTE YELLOW URINE, CATH CARE PROVIDED. PT DENIES REQUETS AT THIS TIME, CALL LIGHT WITHIN REACH.
--- NOTE | 2020-02-14 21:00 | NUR ---
WOUND CARE COMPLETED PER ORDERS, PAIN INCREASED TO 10/10, PRN DILAUDID GIVEN.
--- NOTE | 2020-02-14 22:30 | NUR ---
PT SLEEPING SOUNDLY AT THIS TIME, NO APPARENT DISTRESS. RESPIRATIONS EVEN AND UNLABORED. RR:15, HR:97, SPO2:95% ON RA. WILL ALLOW FOR REST AND CONTINUE TO MONITOR.
--- NOTE | 2020-02-15 00:42 | NUR ---
ASSESSMENT COMPLETED. PT REPORTS THAT PAIN IS TOLERABLE AT THIS TIME AND DECLINES NEED FOR PAIN MEDICATION, NEW ICE PACK PLACED TO LLE. PT REPORTS SOME TROUBLE STAYING ASLEEP, PRN TRAZODONE GIVEN PER REQUEST. NO OTHER CHANGES FROM PREVIOUS ASSESSMENT. FRESH ICE WATER PROVIDED. ALVAREZ EMPTIED. CALL LIGHT WITHIN REACH.
--- NOTE | 2020-02-15 02:28 | NUR ---
PT APPEARS TO BE SLEEPING SOUNDLY AT THIS TIME. NO APPARENT DISTRESS. RESPIRATIONS EVEN AND UNLABORED. RR:11, HR:97, SPO2:94% ON RA. WILL ALLOW FOR REST AND CONTINUE TO MONITOR.
--- NOTE | 2020-02-15 04:14 | NUR ---
PT CONTINUES TO SLEEP SOUNDLY, NO APPARENT DISTRESS. RESPIRATIONS EVEN AND UNLABORED, RR:11, SPO2:95% ON RA. SINUS RHYTHM, HR:91. LLE REMAINS ELEVATE ON 2 PILLOWS, ICE PACK IN PLACE. ALVAREZ PATENT, DRAINING DILUTE URINE. IVF INFUSING WNL. WILL ALLOW FOR REST AND CONTINUE TO MONITOR.
--- NOTE | 2020-02-15 06:06 | NUR ---
IN TO DRAW MORNING LABS OFF PT'S PICC; CONTINUES TO HAVE GOOD BLOOD RETURN AND FLUSH WITHOUT RESISTANCE, CLAVE CHANGED AFTER BLOOD DRAW. PT REQUESTS PAIN MEDICATION FOR 8/10 PAIN TO LLE, 10MG PO OXYCODONE GIVEN AT THIS TIME AND NEW ICE PACK PLACED ON LLE. FRESH ICE WATER PROVIDED. NO FURTHER REQUESTS AT THIS TIME, CALL LIGHT WITHIN REACH.
--- NOTE | 2020-02-15 07:30 | NUR ---
CM assessment completed with Petra. She plans on return to [facility] on discharge. She states concern as she received a letter from insurance showing she will need to start a copay after 21 days. Reminded she was evaluated by Erendira Gastelum from [facility] and [facility] is in place. Informed I will verify with [facility] when I call to give update.
--- NOTE | 2020-02-15 07:51 | NUR ---
media planner in the room talking with pt.
--- NOTE | 2020-02-15 08:05 | NUR ---
pt is awake and alert x4, denies nausea, sob, and chest pain. pt reports pain in left foot/ankle is "getting to be about an 8/10". 1000 mg scheduled po tylenol given 1 hour early, will continue to monitor, pt is aware there are additional options for pain management if no relief from tylenol. left ankle is elevated on pillows, with special attention to keeping pressure off heal. moderate amount of serous drainage noted on andres pad, clean andres placed. ice pack to top of left ankle, pt reports pain relief from ice. pt ordered breakfast.
--- NOTE | 2020-02-15 09:07 | NUR ---
PT REPORTS NO CHANGE IN PAIN OF 8/10 IN LEFT LOWER LIMB, 15 MG PO OXYCODONE GIVEN. PT ABLE TO EAT 100% OF BREAKFAST, DENIES NAUSEA.
--- NOTE | 2020-02-15 10:30 | NUR ---
PT SLIGHTLY TEARFUL WHEN ENTERING THE ROOM. PT REPORTS THAT SHE "BUMPED MY BIG TOE ON MY LEFT FOOT WHEN I GOT UP WITH PHYSICAL THERAPY". PT REPORTS PAIN IS 9/10, 0.5MG IV DILAUDID GIVEN.
--- NOTE | 2020-02-15 10:44 | NUR ---
PIN SITES CLEANED WITH 1:1 STERILE WATER/PEROXIDE MIXTURE. PT LEILA WELL. FOAM DRESSING ON PT LEFT HEAL CHANGED, WOUND SITE IS NOT RED. LEFT LEG ELEVATED WITH THREE PILLOWS TO KEEP PRESSURE FROM HEAL, ICE PACK ON ANTERIOR SIDE OF LEFT LOW LIMB.
--- NOTE | 2020-02-15 11:16 | NUR ---
IN ROOM TO ROUND ON PT. PT REPORTS PAIN IS TOLLERABLE AT 5/10 IN LEFT LOW LEG.
--- NOTE | 2020-02-15 12:30 | NUR ---
IV SITE IN LEFT UPPER CHEST DC'D DUE TO NOT FLUSHING. SITE IS WNL, TIP OF CATH IS INTACT.
--- NOTE | 2020-02-15 12:37 | NUR ---
LUNCH DELIVERED TO PT BEDSIDE. PT SITTING UP IN BED WATCHING TV AT THIS TIME. VITALS ARE WNL AT THIS TIME. PT DENIES NEED FOR PAIN MEDICATION AT THIS TIME. ICE PACK TO LEFT LOW LEG REPLACED. PT IS ALERT AND ORIENTED X4, COOPERATIVE AND POLITE.
--- NOTE | 2020-02-15 13:05 | NUR ---
called to reports some noted bubbling out of one pin site with pt movement. reports that can be normal, no noted gas on imaging, no new orders at this time.
--- NOTE | 2020-02-15 13:49 | NUR ---
PT SITTING UP IN BED EATING LUNCH WITH TV ON. PT SEEMS ALITTLE DOWN, MENTIONED THAT SHE DOES FEEL BETTER NOW THAN UPIN ADMISSION. PT WANTS TO WALK AGAIN, REQUESTED PRAYER. WILL FOLLOW NEEDED
--- NOTE | 2020-02-15 13:59 | NUR ---
Spoke with Jonathon, Email Producer, from [facility]. Intake person is on vacation. He states Petra can return when dcd. Updated to her concerns about payment and he states he will speak with the billing office to confirm payment.
--- NOTE | 2020-02-15 19:37 | NUR ---
SHIFT REPORT RECEIVED FROM CHANA JACOBSON. PT STATES SHE HAS 8/10 PAIN IN LLE, PRN PAIN MED PROVIDED. EJ AND PICC LINE WNL, IV FLUIDS INFUSING PER ORDER. ALVAREZ WNL. NO OTHER NEEDS AT THIS TIME. CALL LIGHT IN REACH.
--- NOTE | 2020-02-15 19:39 | NUR ---
PT HAD AN UNEVENTFUL SHIFT. PT ABLE TO LEILA WORKING WITH PHYSICAL THERAPY WELL. ALL LINENS CHANGED ON BED. PT HAD A FULL BEDBATH, HAIR SHAMPOOED, ALVAREZ CATH CARES DONE. WOUND CARES DONE PER MD ORDER THIS AM. PT REQUIRES FREQUENT PAIN MEDICATION FOR PAIN MANAGEMENT IN LEFT LOW LEG. COMBINATION OF PO AND IV PAIN MEDICATIONS REQUIRED. PT HAS BEEN ALERT AND ORIENTED X4 ALL DAY. ICE PACK TO LEFT LOW LEG MOST OF THE DAY, PT REPORTS PAIN IMPROVEMENT. PICC LINE REMAINS INTACT, BRISK BLOOD RETURN OBTAINED, LABS DRAWN EASILY, FLUIDS AND FLUSHES INFUSE EASILY. PT ABLE TO EAT 100% OF ALL THREE MEALS TODAY, DENIES NAUSEA.
--- NOTE | 2020-02-15 20:49 | NUR ---
ASSESSMENT COMPLETED. PAIN 8/10 IN LLE, PRN PAIN MED PROVIDED. SCHEDULED MEDS PROVIDED. CBG 170, 1 UNIT HUMALOG PROVIDED. CMS INTACT IN ALL EXTREMITIES. 2+ LLE EDEMA, 1+ RLE EDEMA. LUNGS CLEAR, BOWEL TONES ACTIVE. PINS AND WOUNDS CARE PROVIDED PER ORDER. BLISTER INTACT ON OUTER LEFT ANKLE. PRESSURE SORE TO LEFT HEEL COVERED WITH ALLEVYN. PICC LINE FLUSHED VIGORIOUSLY WITH 20ML NS, GOOD BLOOD RETURN, IV FLUIDS INFUSING PER ORDER. EJ FLUSHED VIGOROUSLY WITH 20ML NS, NO BLOOD RETURN. PICC LINE FLUSHED WITH HEPARIN. PIN WOUNDS APPEAR TO HAVE THICK YELLOW DISCHARGE. ANKLE PINS SHOW REDNESS AND SWELLING. LLE ELEVATED WITH ICE PACK, OPEN TO AIR. STITCHES WNL. NO OTHER NEEDS AT THIS TIME. CALL LIGHT IN REACH.
--- NOTE | 2020-02-15 21:05 | NUR ---
TOOK PT VITALS, I&Os DONE, FRESH ICE WATER GIVEN, PT REQUESTED TWO GRAM CRACKERS NOTHING FURTHER REQUSTED, CALL LIGHT IN REACH
--- NOTE | 2020-02-15 21:09 | NUR ---
VITALS AND I&OS DONE AND CHARTED. FRESH ICE WATER GIVEN. BEDSIDE TABLE AND CALL LIGHT IN REACH. PT NEEDS MORE AT THIS TIME.
--- NOTE | 2020-02-15 21:50 | NUR ---
PT REQUESTED HEAT IN ROOM TO TURNED UP, NOTHING FUTHER REQUESTED
--- NOTE | 2020-02-15 22:43 | NUR ---
SCHEDULED MED PROVIDED. PT PAIN IN LLE 02/04, REPOSITIONED AND ICE PACK PROVIDED. NO OTHER NEEDS AT THIS TIME. CALL LIGHT IN REACH.
--- NOTE | 2020-02-15 23:50 | NUR ---
PT RESTING IN BED, EYES CLOSED. RR EVEN, UNLABORED. IV FLUIDS INFUSING PER ORDER. CALL LIGHT IN REACH.
--- NOTE | 2020-02-16 01:51 | NUR ---
PT STATES SHE HAS 9/10 LLE PAIN, PRN PAIN MED PROVIDED. NO OTHER NEEDS AT THIS TIME. CALL LIGHT IN REACH.
--- NOTE | 2020-02-16 02:37 | NUR ---
PT CALLS STATING SHE STILL HAS 9/10 LLE PAIN ASKING "DO I HAVE ANYTHING ELSE FOR PAIN?" PRN PAIN MED PROVIDED. IV FLUIDS INFUSING PER ORDER. ASSESSMENT COMPLETED. PICC LINE WNL, EJ WNL. LUNGS CLEAR, BOWEL TONES ACTIVE. CMS INTACT X 4 EXTREMITIES. 2+ EDEMA IN LLE, 1+ EDEMA IN RLE. REDNESS NOTED TO LLE. NO CURRENT DRAINAGE AT PIN SITES. NO OTHER NEEDS AT THIS TIME. CALL LIGHT IN REACH.
--- NOTE | 2020-02-16 04:36 | NUR ---
SCHEDULED MED PROVIDED. IV WNL. PT RESTING WITH EYES CLOSED. RR EVEN, UNLABORED. CALL LIGHT IN REACH.
--- NOTE | 2020-02-16 05:45 | NUR ---
took pt vitals, emptied dumont, i&os done, got fresh ice water and new ice pack, no further requests, call light in reach, left pt to rest
--- NOTE | 2020-02-16 06:05 | NUR ---
BLOOD DRAW COMPLETED FROM PICC LINE. LINE FLUSHED VIGORIOUSLY AND CLAVE REPLACED. 3ML WASTED FOR DRAW.
--- NOTE | 2020-02-16 06:37 | NUR ---
PT SLEPT OFF AND ON LAST NIGHT. PAIN MANAGED WITH PRN MEDS. PICC LINE FLUSHED VIGORIOUSLY WITH GOOD BLOOD RETURN. EJ FLUSHED WELL, NO BLOOD RETURN. 2+ EDEMA IN LLE WITH REDNESS AND SCANT PURULENT DRAINAGE FROM PIN SITES. WOUND CARE PROVIDED PER ORDER. LUNGS CLEAR, BOWEL TONES ACTIVE. CMS INTACT X4 EXTREMITIES. PT TOLERATED ORIF, IV FLUIDS AND POSITIONING WELL. LLE ELEVATED ON PILLOWS. HEEL ULCER COVERED, BLISTER TO OUTER LEFT ANKLE INTACT. 1+ EDEMA IN RLE. SCATTERED BRUISING NOTED. ALVAREZ WNL
--- NOTE | 2020-02-16 10:15 | NUR ---
PT MEDICATED WITH 0.5MG DILAUDID IVP AT THIS TIME SO THAT DRILLER OPERATOR CAN CLEAN THE PINS ORDERED. PT HAS BEEN UP WORKING WITH PT THIS AM AND DID WELL.
--- NOTE | 2020-02-16 11:10 | NUR ---
CLEANED LEFT EXTERNAL DIVICE ORDERED. WAS ABLE TO GET THE PINS CLEANED AND DOWN INTO THE TISSUE. FOOT IS VERY TENDER WITH CLEANING EVEN WITH PRE MEDICATING HER.
--- NOTE | 2020-02-16 12:03 | NUR ---
PT SITTING UP IN BED, LUNCH JUST DELIVERED. PT SAID PAIN IS 8-10, RN HAD JUST CLEANED WOUND AND PT EXPECTED PAIN LEVEL WOULD RISE. PT TRYING TO HAVE A GOOD ATTITUDE. WILLING TO TAKE LITTLE VICTORIES AND NOT LOOK TOO FAR DOWN THE ROAD SO TO SPEAK. GAVE BLESSING, PT THANKFUL. WILL FOLLOW
--- NOTE | 2020-02-16 12:06 | NUR ---
MEDICATED WITH 15MH OXY PO AT THIS TIME FOR PAIN IN LEFT LEG. PT VENUS BRINK
--- NOTE | 2020-02-16 13:00 | NUR ---
Spoke with Petra. She is walking with PT. Plans on return to [facility]. Asks if I can request she change rooms on return as she is uncomfortable in rm and wood she is on. Informed I was going to call Kelsey and speak with her and I request they change her room. Reminded I can only make a request. She states understanding.
--- NOTE | 2020-02-16 13:20 | NUR ---
Spoke with Raffi from [facility] for return of pt. Updated to conversation with Dr. Neves and Tyrone. Plan for pt to return Wednesday on PO antibiotics. She denies need I send the chart today. Requests I send chart with orders and rx on Wednesday. Asked if pt could possibly change rooms on return and Raffi agrees to check. She states the only issue would be if they don't have any single rooms on wood 2. Petra will need to start 14 isolation on return. Raffi asks I remind the pt she will move in 14 days if they cannot move her room on return.
--- NOTE | 2020-02-16 14:50 | NUR ---
PT C/O NAUSEA ZOFRAN 4MG AT THIS TIME.
--- NOTE | 2020-02-16 15:18 | NUR ---
PT TALKING ON HER PHONE AND DENIES NAUSEA AT THIS TIME.
--- NOTE | 2020-02-16 16:21 | NUR ---
OFFERED PT SHOWER. PT REFUSED AND SAID SHE WILL TAKE ONE TOMORROW.
--- NOTE | 2020-02-16 16:29 | NUR ---
MEDICATED FOR PAIN 02/04 AT THIS TIME FOR LEFT ANKEL. PT IS AWAKE AND BRUSHING HER TEETH.
--- NOTE | 2020-02-16 18:36 | NUR ---
PT ATE DINNER, LEFT FOOT REMAINS UP ON PILLOWS AND KEEPING PRESSURE OF THE HEEL ALSO. SHE HAS HAD GOOD PAIN CONTROL WITH PO MEDICATIONS.
--- NOTE | 2020-02-16 19:05 | NUR ---
SHIFT REPORT RECEIVED FROM HARRISON JACOBSON. PT RESTING IN BED. PAIN 12/05. LLE ELEVATED. IV FLUIDS INFUSING PER ORDER. NO NEEDS AT THIS TIME. CALL LIGHT IN REACH.
--- NOTE | 2020-02-16 20:25 | NUR ---
VITALS, I&OS AND BLOOD SUGAR DONE AND CHARTED. BEDSIDE TABLE AND CALL LIGHT IN REACH. PT NEEDS NOTHING MORE AT THIS TIME.
--- NOTE | 2020-02-16 20:59 | NUR ---
PT ASSESSMENT COMPLETED. WOUND CARE PROVIDED, NEW ALLEVYN APPLIED TO HEEL. LUNGS CLEAR, BOWEL TONES ACTIVE. 2+ EDEMA LLE, 1+ EDEMA RLE. NUMBNESS AND TINGLING AT BASELINE IN FINGERS AND TOES. PULSES AND MOTOR INTACT. GCS 15, A&O X4. ALVAREZ WNL. PICC LINE FLUSHED VIGORIOUSLY WITH 20ML NS WITH GOOD BLOOD RETURN. SCHEDULED MEDS PROVIDED. PRN PAIN MEDS PROVIDED FOR 7/10 LLE PAIN AND PRE-WOUND CARE. SCATTERED BRUISING NOTED. ICE WATER AND ICE PACK PROVIDED. NO OTHER NEEDS AT THIS TIME. CALL LIGHT IN REACH.
--- NOTE | 2020-02-16 22:35 | NUR ---
IN ROOM TO ADMINISTER FLAGYL FOR PRIMARY RN JAKE. PT WOKE MOMENTARILY AND IS NOW RESTING WITH EYES CLOSED, RR IS EVEN AND NONLABORED. CALL LIGHT IS CLOSE.
--- NOTE | 2020-02-17 01:27 | NUR ---
PT STATES SHE HAS 8/10 PAIN IN LLE, PRN PAIN MED PROVIDED. NO OTHER NEEDS AT THIS TIME. CALL LIGHT IN REACH. IV FLUIDS INFUSING PER ORDER. LLE ELEVATED.
--- NOTE | 2020-02-17 05:03 | NUR ---
PT RESTING IN BED, WAKES TO VOICE. SCHEDULED MED PROVIDED. ASSESSMENT COMPLETED. 2+ EDEMA IN LLE, 1+ EDEMA RLE. LUNGS CLEAR, BOWEL TONES ACTIVE. NUMBNESS AND TINGLING IN FEET AND FINGERS, CHRONIC. SCATTERED BRUISING NOTED. LLE REDNESS, EDEMA AND SCANT PURULENT DISCHARGE AT PIN SITES NOTED. LLE ELEVATED. PICC LINE WNL. IV FLUIDS INFUSING PER ORDER. NO OTHER NEEDS AT THIS TIME. CALL LIGHT IN REACH.
--- NOTE | 2020-02-17 06:27 | NUR ---
scheduled meds provided. pt pain in lle 01/04, prn pain med provided. no other needs at this time. call light in reach.
--- NOTE | 2020-02-17 09:00 | NUR ---
PT ALERT SITTING UP IN BED, ATE 100% OF BREAKFAST, SCHEDULED MEDS TAKEN, KEEPING LLE ELEVATED. REDNESS AND SWELLING HAS IMPROVED, PHYSICAL THERAPY IN TO SEE PT AT THIS TIME. PAIN MUCH IMPROVED SINCE TAKING OXYCODONE EARLIER.
--- NOTE | 2020-02-17 10:56 | NUR ---
VITALS AND I&OS CHARTED. CALL LIGHTINREACH, NO OTHER NEEDS AT THIS TIME
--- NOTE | 2020-02-17 11:00 | NUR ---
PINN CARE TO LLE, TOLERATED WELL, REDNESS AND BLISTERING IS MUCH IMPROVED, PREMEDICATED WITH DILAUDID PRIOR TO PINN CARE. KEEPING LEG ELEVATED, REMAINS AFEBRILE. IN GOOD SPIRITS, LAUGHING AND JOKING WITH STAFF. CALL LIGHT IN EASY REACH.
--- NOTE | 2020-02-17 14:17 | NUR ---
VITALS AND I&OS CHARTED. PATIENT REPORTS LOWER LEFT LEG IS BURNING, WILL NOTIFY RN. CALL LIGHT IN REACH
--- NOTE | 2020-02-17 16:03 | NUR ---
PT CRYING IN ROOM RATING PAIN 8-9/10. REPOSITIONED ON PILLOWS WITH LITTLE RELIEF, DILAUDID 0.5MG IV GIVEN DUE TO SEVERITY OF PAIN, PT THINKS SHE LEFT ICE BAG ON TO LONG.
--- NOTE | 2020-02-17 16:05 | NUR ---
DILAUDID WITH GOOD PAIN RELIEF AND OXYCODONE GIVEN AFTER TO MAINTAIN PAIN CONTROL. PT WATCHING TV PROGRAM. KEEPING LEG ELEVATED. SCHEDULED ABX INFUSING, BLOOD TO LAB FOR VANCO TROUGH.
--- NOTE | 2020-02-17 17:42 | NUR ---
PT IS SITTING UP EATING DINNER, CONT. TO REPORT GOOD PAIN RELIEF, KEEPING LLE ELEVATED, GOOD APPETITE. DENIES ANY NEEDS.
--- NOTE | 2020-02-17 18:34 | NUR ---
VITALS AND I&OS CHARTED. CALL LIGHT IN REACH, FRESH ICE WATER GIVEN, GARBAGE EMPTIED. NO OTHER NEEDS
--- NOTE | 2020-02-17 19:15 | NUR ---
SHIFT REPORT RECEIVED FROM RENE JACOBSON. PT RESTING IN BED, EYES CLOSED. IV FLUIDS INFUSING PER ORDER. RR EVEN, UNLABORED. CALL LIGHT IN REACH.
--- NOTE | 2020-02-17 21:04 | NUR ---
FRESH ICE WATER GIVEN. I&OS DONE AND CHARTED. BEDSIDE TABLE AND CALL LIGHT IN REACH.
--- NOTE | 2020-02-17 21:21 | NUR ---
ASSESSMENT COMPLETED. PT PAIN 8/10 IN LLE, PRN PAIN MEDS PROVIDED. WOUND CARE PROVIDED. LLE 2+ EDEMA, REDNESS AND SCANT PURULENT DRAINAGE AT PIN SITES. RLE 1+ EDEMA. LUNGS CLEAR. BOWEL TONES ACTIVE. NUMBNESS AND TINGLING IN FEET AND HANDS, CHRONIC. MOTOR AND PULSE INTACT IN ALL EXTREMITIES. ABD SOFT, NONTENDER. A&O X4, GCS 15. LLE ELEVATED. PICC LINE FLUSHED VIGORIOUSLY WITH 20 ML NS, GOOD BLOOD RETURN. SCATTERED BRUISING NOTED. ICE WATER PROVIDED. NO OTHER NEEDS AT THIS TIME. CALL LIGHT IN REACH.
--- NOTE | 2020-02-18 00:05 | NUR ---
PT RESTING IN BED, EYES CLOSED. RR EVEN, UNLABORED. IV FLUIDS INFUSING PER ORDER. KIM WNL. CALL LIGHT IN REACH.
--- NOTE | 2020-02-18 02:05 | NUR ---
PT RESTING IN BED, EYES CLOSED. RR EVEN, UNLABORED. LLE ELEVATED. IV FLUIDS INFUSING PER ORDER. CALL LIGHT IN REACH.
--- NOTE | 2020-02-18 04:05 | NUR ---
PT RESTING IN BED, EYES CLOSED. RR EVEN, UNLABORED. IV FLUIDS INFUSING PER ORDER. CALL LIGHT IN REACH.
--- NOTE | 2020-02-18 06:34 | NUR ---
SCHEDULED MEDS PROVIDED. PAIN IN LLE 01/04, PRN PAIN MED PROVIDED. BLOOD DRAW COMPLETED FROM PICC LINE. PICC LINE FLUSHED VIGORIOUSLY WITH 20 ML NS, GOOD BLOOD RETURN, CLAVE CHANGED. ASSESSMENT COMPLETED. LLE 2+ EDEMA, REDNESS, SCANT PURULENT DRAINAGE AT PIN SITES. 1+ EDEMA IN RLE. ABD SOFT, NONTENDER, BOWEL TONES ACTIVE. LUNGS CLEAR. NUMBNESS AND TINGLING IN FINGERS AND FEET, CHRONIC. PULSES INTACT. NO OTHER NEEDS AT THIS TIME. CALL LIGHT IN REACH.
--- NOTE | 2020-02-18 06:51 | NUR ---
PT SLEPT WELL THIS SHIFT. PAIN MANAGED WITH PRN PAIN MEDS. PT TOLERATED LEG ELEVATION WELL. WOUND CARE PROVIDED, SCANT PURULENT DRAINAGE AT PIN SITES. PT TOLERATED COLD THERAPY TO LLE WELL. PICC CDI, WNL, FLUSHED WELL WITH GOOD BLOOD RETURN. 2+ LLE EDEMA UNCHANGED, 1+ RLE EDEMA UNCHANGED, ALVAREZ WNL, TOLERATED WELL. LUNGS CLEAR, BOWEL TONES ACTIVE. PT TOLERATED MEDICATIONS AND BLOOD DRAW WELL. PT REPORTS NUMBNESS AND TINGLING IN FINGERS AND FEET BUT STATES THAT IS CHRONIC. PULSES AND MOTOR INTACT X 4 EXTREMITIES. A&O X 4, GCS 15.
--- NOTE | 2020-02-18 07:42 | NUR ---
PATIENT RESTING IN BED. WHITE BOARD UPDATED. PATIENT COMPLAINS ABOUT PAIN. RN NOTIFIED. CALL LIGHT WITHIN REACH. NO OTHER NEEDS AT THIS TIME
--- NOTE | 2020-02-18 07:48 | NUR ---
PT ASLEEP AT BEDSIDE REPORT, AWAKENS SHORTLY AFTER C/O 9/10 PAIN IN HER LEFT LEG. DILAUDID ADMINISTERED, WILL FOLLOW UP WITH P/O MEDS AT 0900. FRESH H20 AT BEDSIDE, CALL LIGHT IN REACH. DENIES OTHER NEEDS OF.
--- NOTE | 2020-02-18 08:00 | NUR ---
IN ROOM FOR BLOODSUGAR CHECK, PATIENT VERY TEARFUL THIS MORN. RN KRIS IN ROOM ALSO.
--- NOTE | 2020-02-18 10:17 | NUR ---
VITALS AND I&OS CHARTED. TALKED TO PATIENT ABOUT SHOWERING TODAY(HARRISON RN SPOKE TO DR DOLAN FOR OK) WILL APPROACH PATIENT WITH SHOWER IDEA LATER. LET ELEVATED. CALL LIGHT IN REACH
--- NOTE | 2020-02-18 10:43 | NUR ---
DR DOLAN IN TO SEE PT. WOUND CARE COMPLETED WELL TOLERATED BY PT.
--- NOTE | 2020-02-18 12:01 | NUR ---
IN ROOM FOR BLOODSUGAR CHECK, PATIENT UP IN CHAIR, VISIBLY IN PAIN. PATIENT REPORTS SHE WAS TRANSFERING FROM BED TO CHAIR(WITH P/T) PART OF WOUND ON LEFT FOOT OPENED "TORE." INDIRA PONCE AWARE, IN WITH PAIN MEDS
--- NOTE | 2020-02-18 12:35 | NUR ---
PT WORKS WITH P/T THEN UP TO THE CHAIR. JUST BEFORE NOON MEAL PT IS CRYING STATES "IT JUST HURTS SO BAD" OXY 15 MG ADMINISTERED. ENCOURAGED PT TO CALL TO REPORT PAIN SO IT CAN BE MANAGED BEFORE IT GETS OUT OF CONTROL. REVIEWED PAIN MED SCHEDULE WITH THIS PT AND SHE VERBALIZES UNDERSTANDING. AT THE SAME TIME PT C/O NAUSEA, ZOFRAN ADMINISTERED WITH PAIN MEDS. PT IS ENTHUSIASTICALLY EATING NOON MEAL JUST MINUTES LATER
--- NOTE | 2020-02-18 14:38 | NUR ---
PATIENT UP IN CHAIR. VITALS AND I&OS CHARTED. ALVAREZ EMPTIED
--- NOTE | 2020-02-18 15:15 | NUR ---
PT CONTINUES UP IN THE CHAIR RATES PAIN 12/05 5 BEING THE GOAL. CALL LIGHT IN REACH, FRESH H20 AT CHAIR SIDE
--- NOTE | 2020-02-18 17:50 | NUR ---
PATIENT SITTING UP IN CHAIR. VITAL SIGNS AND I&O DONE. CALL LIGHT WITHIN REACH. NO OTHER NEEDS AT THIS TIME
--- NOTE | 2020-02-18 18:13 | NUR ---
PT UP IN CHAIR WITH EVENING MEAL, TALKING ON THE PHONE. IV HL'D
--- NOTE | 2020-02-18 19:00 | NUR ---
RECEIVED REPORT FROM INDIRA PONCE. pt RESTING IN BED. DISCUSSED PAIN MANAGEMENT. NO FURTHER REQUESTS AT THIS TIME. CALL LIGHT WITHIN REACH. ICE PROVIDED. WHITEBOARD UPDATED.
--- NOTE | 2020-02-18 20:19 | NUR ---
VITALS I&OS AND BLOOD SUAGR DONE AND CHARTED. GARBAGES EMPTIED. BEDSIDE TABLE AND CALL LIGHT IN REACH.
--- NOTE | 2020-02-18 20:31 | NUR ---
CALL LIGHT ON. pt REQUESTED PAIN MEDICATION. DISCUSSED PAIN MANAGEMENT AND GAVE SCHEDULED MEDICATIONS (SEE MAR). ASSESSMENT DONE. WOUND CARE DONE ON PIN SITES X4. PROVIDED WITH A WARM BLANKET AND ICE WATER. NO FURTHER REQUESTS AT THIS TIME. CALL LIGHT WITHIN REACH.
--- NOTE | 2020-02-18 21:39 | NUR ---
IV PUMP ALARMING, ANTIBIOTIC INFUSION COMPLETE. PICC LINE HEPARIN LOCKED WNL. pt RATES PAIN 8/10 IN LEFT LEG. PRIMARY RN NOTIFIED. PRN SLEEP MEDICATION ADMINISTERED REQUESTED. CALL LIGHT IN REACH.
--- NOTE | 2020-02-18 22:12 | NUR ---
PRN PAIN MED GIVE FOR 8 PAIN. NO FURTHER REQUESTS AT THIS TIME. DISCUSSED PAIN MANAGEMENT. CALL LIGHT WITHIN REACH.
--- NOTE | 2020-02-19 00:20 | NUR ---
ROUNDED ON pt. RESTING IN BED WITH EYES CLOSED, RESPIRATIONS REGULAR AND UNLABORED. CALL LIGHT WITHIN REACH.
--- NOTE | 2020-02-19 02:19 | NUR ---
ROUNDED ON pt. RESTING WITH EYES CLOSED, RESPIRATIONS REGULAR AND UNLABORED. CALL LIGHT WITHIN REACH.
--- NOTE | 2020-02-19 03:13 | NUR ---
ROUNDED ON pt. RESTING WITH EYES CLOSED, RESPIRATIONS REGULAR. WOKE TO VOICE. REPORTED 6/10 PAIN. PRN PAIN MEDICATION GIVEN. ALVAREZ EMPTIED. ASSESSMENT DONE. NO CHANGES NOTED. NO FURTHER REQUESTS AT THIS TIME. FRESH WATER PROVIDED. CALL LIGHT WITHIN REACH.
--- NOTE | 2020-02-19 06:42 | NUR ---
PER REQUEST OF PRIMARY RN PANCHO, AM THYROID MED AND PRN PAIN MEDICATION GIVEN FOR 7/10 PAIN IN LLE (SEE EMAR). NO FURTHER NEEDS, CALL LIGHT IN REACH.
--- NOTE | 2020-02-19 06:44 | NUR ---
VITALS AND I&OS DONE AND CHARTED. FRESH ICE WATER GIVEN. GARBAGES EMPTIED. BEDSIDE TABLE AND CALL LIGHT IN REACH. PT NEEDS NOTHING MORE AT THIS TIME.
--- NOTE | 2020-02-19 06:46 | NUR ---
pt RESTED MOST OF SHIFT. PAIN MANAGED WITH PRN (X3, MAX DOSE) AND SCHEDULED MEDICATIONS. ALVAREZ PRESENT. NON-WEIGHT BEARING ON LEFT LEG. WOUND CARE Q SHIFT, SCANT PURULENT DRAINAGE NOTED. ALLEVYN TO LEFT HEEL INTACT. ACCU CHECKS ACHS, SS INSULIN. TOLERATING 60GM CARB DIET. PICC HEP LOCKED, IV ABX. USES CALL LIGHT APPROPRIATELY.
--- NOTE | 2020-02-19 07:05 | NUR ---
PT RESTING IN BED SLEEPING, ALERT TO STAFF IN ROOM. VERBALIZE INTEREST IN GETTING UP TO CHAIR THIS AM. PT HAS NO QUESTIONS OR CONCERNS PLAN TO DISCHARGE TO SNF TODAY. PIN CARE LAST DONE LAST NIGHT. NOTED DRIED CRUSTED DRAINAGE ON LOWER PIN SET. BEDSIDE REPORT FROM PATRIZIA JACOBSON.
--- NOTE | 2020-02-19 08:33 | NUR ---
PT RESTING IN BED ALERT AND ORIENTED FINISHING BREAKFAST. PT MEDICATIONS WERE ADMINISTERED AND PT TOLERATED THEM WELL. PT LAYING IN BED AT THIS TIME WATCHING TV. WILL CONTINUE TO MONITOR PT. PLAN FOR PIN CARE AND PAIN MANAGEMENT WAS DISCUSSED.
--- NOTE | 2020-02-19 09:28 | NUR ---
PATIENT SITTING UP IN BED. VITAL SIGNS AND I&O DONE. SETS UP BATHROOM FOR SHOWER. CALL LIGHT WITHIN REACH. NO OTHER NEEDS AT THIS TIME
--- NOTE | 2020-02-19 09:30 | NUR ---
Called and attempted to speak with Kelsey from [facility]. Message left requesting when pt may return today.
--- NOTE | 2020-02-19 10:12 | NUR ---
Patient's vancomycin trough level drawn at 0830 this am was supratherapeutic at 21.5. Vanco will be held until 1400 today, then restarted at 1750mg q 24 hrs, which is predicted to result in a trough level of 15.4. Pharmacy will continue to follow. Serum creatinine showed slight upward trend to 1.01. This will be monitored as well
--- NOTE | 2020-02-19 10:30 | NUR ---
Was able to reach Jonathon admin. He states pt may return. Informed I will fax orders when Dr. Andre completes.
--- NOTE | 2020-02-19 11:04 | NUR ---
PT SOUND ASLEEP, DID NOT DISTURB. WILL CHECK BACK
--- NOTE | 2020-02-19 11:17 | NUR ---
PATIENT SITTING UP ON THE SHOWER CHAIR. IV AND LEG WRAPPED. PATIENT TAKES A SHOWER. ONE PERSON ASSISTING. PATIENT USING A CLEAN GOWN. PATIENT CANNOT STAND UP. THIS DRAFTER AUTOMOTIVE DESIGN ASKS FOR HELP, PHYSICAL THERAPIST ASSISTING. PATIENT TRANSFERRED TO WHEELCHAIR AND THEN TO BED. PATIENT COMPLAINS ABOUT PAIN. RN NOTIFIED. ICE WATER GIVEN. CALL LIGHT WITHIN REACH. NO OTHER NEEDS AT THIS TIME
--- NOTE | 2020-02-19 11:19 | NUR ---
PT RESTING IN BED TEARFUL AFTER WORKING WITH PHYSICAL THERAPY AND SHOWERING, REPROTS PAIN 03/07. 20MG PO OXYCODONE GIVEN AT THIS TIME
[2020-02-19] MEDS ORDERED: VANCOMYCIN1.75 GM/50 IV (11:57)
[2020-02-19] MEDS ORDERED: HEPARIN 5010 UNIT/1 IV (11:58)
[2020-02-19] MEDS ORDERED: OXYCODONE HCL5 MG PO (11:59)
--- NOTE | 2020-02-19 12:31 | NUR ---
PT GIVEN 0.5MG IV DILAUDID ONE TIME SHE IS NOW LAUGHING AND SMILING, PIN CARE AND SKIN CARE PROVIDED AT THIS TIME. PT TOLERATED WELL.
--- NOTE | 2020-02-19 12:51 | NUR ---
Orders faxed to Kelsey at [facility]. Receivd return call asking for RX, notified it is at the back of the fax. They will have surgical clinical reviewer and notify when pt can return.
--- NOTE | 2020-02-19 13:10 | NUR ---
Called and spoke with Kelsey. Pt ok to return. Pt will go by chery Ibarra RN working on dc.
--- NOTE | 2020-02-19 14:25 | NUR ---
PT LAYING ON BED AWAKE AND ALERT WATCHING TV. PICC LINE DRESSING WAS CHANGED WELL FLOW CAPS. STERILE PROCEDURE WAS FOLLOWED ACCORDING TO PROTOCOL. CAP/CLAVE WAS ALSO CHANGED. PT TOLEREATED DRESSING CHANGE WELL. PT LEFT IN BED AND CALL LIGHT IS WITHIN REACH. WILL CONTINUE TO MONITOR.
--- NOTE | 2020-02-19 14:30 | NUR ---
VANCO DOSE TO BE SENT WITH PT TO [facility] PER , HE SAID, "SEND VANCO WITH PT TO BE INFUSED AT [facility] IF NEEDED, DO NOT HOLD THE PT FOR THE INFUSION." [facility] CALLED FOR TRANSFER, PERSONAL SAID 20 MINUTES.
--- NOTE | 2020-02-19 16:00 | NUR ---
PT DISCHARGED TO [facility] VIA [facility]. REPORT CALLED AT THIS TIME. PT GIVEN PAIN MEDICATIONS AT 1500.
== END 2020-02-19 16:00 | DRG 872 ==
LOC: ED 09:39 → CCU 14:06 → MS 02-15 19:36
PROVIDERS: ADMIT Student in an Organized Health Care Education/Training Program
PROC: 02HV33Z Insertion of Infusion Device into Superior Vena Cava, Percutaneous Approach (ICD-10-PCS; principal; 2020-02-14 10:00)
DX: A41.02 Sepsis due to Methicillin resistant Staphylococcus aureus (principal); L03.116 Cellulitis of left lower limb; N39.0 Urinary tract infection, site not specified; Z68.43 Body mass index [BMI] 50.0-59.9, adult; Z20.828 Contact with and (suspected) exposure to other viral communicable diseases; E11.40 Type 2 diabetes mellitus with diabetic neuropathy, unspecified; J45.909 Unspecified asthma, uncomplicated; I10 Essential (primary) hypertension; E03.9 Hypothyroidism, unspecified; M54.9 Dorsalgia, unspecified; K21.9 Gastro-esophageal reflux disease without esophagitis; I25.10 Atherosclerotic heart disease of native coronary artery without angina pectoris; G47.00 Insomnia, unspecified; G89.4 Chronic pain syndrome; R19.7 Diarrhea, unspecified; B96.20 Unspecified Escherichia coli [E. coli] as the cause of diseases classified elsewhere; E66.01 Morbid (severe) obesity due to excess calories; S82.872D Displaced pilon fracture of left tibia, subsequent encounter for closed fracture with routine healing; Z88.0 Allergy status to penicillin; Z87.891 Personal history of nicotine dependence; Z88.8 Allergy status to other drugs, medicaments and biological substances; Z88.7 Allergy status to serum and vaccine; Z79.1 Long term (current) use of non-steroidal anti-inflammatories (NSAID); Z79.82 Long term (current) use of aspirin; Z79.4 Long term (current) use of insulin; Z79.891 Long term (current) use of opiate analgesic; Z79.51 Long term (current) use of inhaled steroids; Z79.899 Other long term (current) drug therapy
CPT/HCPCS: 36430; 36569; 36573; 51702; 71045; 73610; 80048; 80053; 80202; 81001; 83605; 83735; 85025; 85651; 86850; 86900; 86901; 86920; 87040; 87045; 87046; 87077; 87088; 87186; 87493; 93005; 93010; 94640; 96374; 96375; 96376; 97110; 97116; 97163; 97165; 97530; 99285-25; C1751; C9803; J0696; J1170; J1650; J1815; J1940; J2405; J3370; J3475; J7030; J7060; J7121; P9016; U0003

== ENCOUNTER 2020-03-31 21:22 | Emergency (ER) | payer OTHER ==
[~2020-03-31] VITALS: Ht 160 cm; Wt 117.9 kg
--- OUTSIDE RECORDS SUMMARY | ~2020-03-31 | XMS | Encounter Summary ---
Demographics + + + | Address | [address] | | | [place] [address] | + + + | Home Phone | | + + + | Preferred Language | Unknown | + + + | Marital Status | Legally | + + + | Adventism Affiliation | Unknown | + + + | Race | White | + + + | Ethnic Group | Not or | + + + Author + + + | Author | [facility] | | | and [place] | + + + | Organization | [facility] | | | and [place] | + + + | Address | Unknown | + + + | Phone | Unavailable | + + + Support + + +---------+ + | Name | Relationship | Address | Phone | + + +---------+ + | Milana Bullock | ECON | Unknown | | + + +---------+ + | Simone Holland | ECON | Unknown | | + + +---------+ + Care Team Providers + +------+ + | Care Convention Manager Name | Role | Phone | + +------+ + | Remi Talley MD | PCP | | + +------+ + Reason for Visit + + + | Reason | Comments | + + + | Hospital Follow-up | R pleural effusion | + + + Encounter Details +--------+---------+ + + + | Date | Type | Department | Care Team | Description | +--------+---------+ + + + | 12/04/ | Office | [facility] | Andrew Cross DO | Empyema of pleural | | 2020 | Visit | INFECTIOUS DISEASE | [address] | space ([facility]) (Primary | | | | [address] | [place] [address] | Dx); MRSA infection | | | | [place], [place] | [phone] | | | | | [address] | | (methicillin-resista | | | | [phone] | | nt Staphylococcus | | | | | | aureus) | +--------+---------+ + + + Social History + +-------+ +--------+ + | Tobacco Use | Types | Packs/Day | Years | Date | | | | | Used | | + +-------+ +--------+ + | Never Smoker | | 0.25 | | 03/27/1990 [...] on file | | + + + documented as of this encounter Last Filed Vital Signs + + + + + | Vital Sign | Reading | Time Taken | Comments | + + + + + | Blood Pressure | 131/82 | 12/05/2019 3:58 PM | | | | | PDT | | + + + + + | Pulse | 84 | 12/05/2019 3:58 PM | | | | | PDT | | + + + + + | Temperature | 37.2 C (99 F) | 12/05/2019 3:58 PM | | | | | PDT | | + + + + + | Respiratory Rate | 16 | 12/05/2019 3:58 PM | | | | | PDT | | + + + + + | Oxygen Saturation | 95% | 12/05/2019 3:58 PM | | | | | PDT | | + + + + + | Inhaled Oxygen | - | - | | | Concentration | | | | + + + + + | Weight | 126.5 kg (278 lb | 12/05/2019 3:58 PM | | | | 12.8 oz) | PDT | | + + + + + | Height | - | - | | + + + + + | Body Mass Index | 49.39 | 11/21/2019 5:56 PM | | | | | PDT | | + + + + + documented in this encounter Functional Status + + + + | Functional Status | Response | Date of Assessment | + + + + | Are you deaf or do you have serious | No | 11/29/2019 | | difficulty hearing? | | | + + + + | Are you blind or do you have serious | No | 11/29/2019 | | difficulty seeing, even when wearing | | | | glasses? | | | + + + + | Do you have serious difficulty walking or | No | 11/29/2019 | | climbing stairs? (5 years old or older) | | | + + + + | Do you have difficulty dressing or bathing? | No | 11/29/2019 | | (5 years old or older) | | | + + + + | Because of a physical, mental, or emotional | No | 11/29/2019 | | condition, do you have difficulty doing | | | | errands alone such as visiting a doctor's | | | | office or shopping? [15 years old or | | | | older)] | | | + + + + + + + + | Cognitive Status | Response | Date of Assessment | + + + + | Because of a physical, mental, or emotional | No | 11/29/2019 | | condition, do you have serious difficulty | | | | concentrating, remembering, or making | | | | decisions? (5 years old or older) | | | + + + + documented as of this encounter Patient Instructions Patient Instructions Andrew Cross DO - 12/05/2019 4:20 PM PDTWe will call with results of tomorrow's labs. documented in this encounter Progress Notes Andrew Cross DO - 12/05/2019 4:20 PM PDT Subjective Patient ID: Petra Dangelo is a 54 y.o. female. Chief complaint: Follow-up MRSA pneumonia with loculated right pleural effusion This is a pleasant 54-year-old female who recently presented with pneumonia, most likely se condary to MRSA, and had a loculated pleural effusion which was ultimately drained with a pi gtail catheter on November 22. This was also treated with instillation of TPA with good results. The patient had acute renal failure, and was also at high risk for serotonin drug reaction with linezolid, so she was ultimately placed on ceftaroline with plan to treat for a total of 14 days following drainage, through December 06. The patient presents for follow-up today and reports that she still feels a tightness on th e right side of her chest when she tries to take a deep breath, but does not have any pain t here. She denies any cough. No fevers or chills. Ceftaroline has been well-tolerated so f ar, no nausea, vomiting or diarrhea. She had labs collected yesterday which showed estimate d GFR of 35, so her ceftaroline dose was decreased to 400 mg twice daily. The following elements of the patient's history were reviewed and updated as appropriate. T hey are available elsewhere in the patient record. allergies, current medications, past med ical history, past social history and problem list Review of Systems Constitutional: Negative for chills, diaphoresis and fever. Respiratory: Negative for cough, shortness of breath and wheezing. Gastrointestinal: Negative for diarrhea, nausea and vomiting. Musculoskeletal: Negative for myalgias. Skin: Negative for rash. Neurological: Negative for weakness. Objective BP 131/82 | Pulse 84 | Temp 37.2 C (99 F) (Tympanic) | Resp 16 | Wt 126.5 kg (278 l b 12.8 oz) | LMP (LMP Unknown) | SpO2 95% | BMI 49.39 kg/m Physical Exam Vitals signs reviewed. Constitutional: Appearance: She is well-developed. Cardiovascular: Rate and Rhythm: Normal rate and regular rhythm. Pulmonary: Effort: Pulmonary effort is normal. Breath sounds: Normal breath sounds. Abdominal: General: Bowel sounds are normal. Palpations: Abdomen is soft. Tenderness: There is no abdominal tenderness. Skin: General: Skin is warm and dry. Findings: No rash. Comments: PICC line insertion site unremarkable, no tenderness or distal edema Neurological: Mental Status: She is alert and oriented to person, place, and time. Psychiatric: Thought Content: Thought content normal. Assessment /Plan 1. Empyema of pleural space / MRSA infection (methicillin-resistant Staphylococcus aureus) 14 days following drainage should be adequate. The patient still has some symptoms that ar e likely attributable to the residual scarring, but no systemic symptoms and exam is reassur ing. Dose has been adjusted based on renal function. Treatment is expected to complete on , December 06. I have requested a repeat CBC to be collected tomorrow, December 05. As michele g as this is reassuring, we will be able to complete her antibiotics as planned, and will se nd orders for PICC line to be removed following her final dose. - CBC with Differential; Future A total of 15 minutes was spent face to face with the patient, of which greater than 10 min utes was spent in education and councilling regarding the above issues. Addendum: White blood cell count within normal limits. Order will be sent for PICC line re moval, antibiotics completed. documented in this encoun ter Miscellaneous Notes Addendum Note - Andrew Cross DO - 12/05/2019 4:20 PM PDT Addended by: ANDREW CROSS on: 12/07 10:23 AM Modules accepted: Orders documented in this enco unter Plan of Treatment + +------+--------+ + + | Name | Type | Priori | Associated Diagnoses | Order Schedule | | | | ty | | | + +------+--------+ + + | CBC with | Lab | Routin | Empyema of pleural | Expected: | | Differential | | e | space (HCC) MRSA | 12/06/2019, Expires: | | | | | infection | 12/04/2020 | | | | | (methicillin-resista | | | | | | nt Staphylococcus | | | | | | aureus) | | + +------+--------+ + + documented as of this encounter Visit Diagnoses + + | Diagnosis | + + | Empyema of pleural space (HCC) - Primary | + + | MRSA infection (methicillin-resistant Staphylococcus aureus) Methicillin resistant | | Staphylococcus aureus in conditions classified elsewhere and of unspecified site | + + documented in this encounter"
--- OUTSIDE RECORDS SUMMARY | ~2020-03-31 | XMS | Encounter Summary ---
Demographics + + + | Address | [address] | | | [place] [address] | + + + | Home Phone | | + + + | Preferred Language | Unknown | + + + | Marital Status | Legally | + + + | Presybeterian Affiliation | Unknown | + + + | Race | White | + + + | Ethnic Group | Not or | + + + Author + + + | Author | Located Within [facility] | | | and [place] | + + + | Organization | Located Within [facility] | | [...] Team Providers + +------+ + | Care Patient Care Provider Name | Role | Phone | + +------+ + | Remi Talley MD | PCP | | + +------+ + Reason for Visit Auth/Cert +--------+--------+ + + + + | Status | Reason | Specialty | Diagnoses / | Referred By | Referred To | | | | | Procedures | Contact | Contact | +--------+--------+ + + + + | | | | Diagnoses | | | | | | | PNA, | | | | | | | empyema | | | +--------+--------+ + + + + Encounter Details +--------+ + + + + | Date | Type | Department | Care Team | Description | +--------+ + + + + | 11/20/ | Hospital | [facility] | María Elena Blas, | Anemia of chronic | | 2020 - | Encounter | [facility] | [address] | disease; Chronic | | | | [address] | [place] [address] | pain syndrome; CKD | | 11/28/ | | [place], [place] | [phone] | (chronic kidney | | 2019 | | [id number] | | disease), stage III | | | | [phone] | Charlene Rao DO | ([facility]); Empyema of | | | | | [address] | pleural space ([facility]); | | | | | [place] [address] | Essential | | | | | [phone] | hypertension, | | | | | | benign; Pneumonia of | | | | | Fredrick Rubin | right lower lobe | | | | | MD Eloise [address] | due to methicillin | | | | | [address] [place], [place] | resistant | | | | | [address] | Staphylococcus | | | | | | aureus (MRSA) ([facility]); | | | | | Sanaz Vásquez, | Type 2 diabetes | | | | | [address] | mellitus with | | | | | [place] [address] | diabetic | | | | | [phone] | nephropathy, without | | | | | | long-term current | | | | | Romario Rodrigez MD | use of insulin | | | | | [address] | ([facility]); Pulmonary | | | | | [place] [address] | nodules; | | | | | [phone] | Thrombocytosis | | | | | | ([facility]); Loculated | | | | | | pleural effusion; | | | | | | EVA (acute kidney | | | | | | injury) ([facility]); | | | | | | Sepsis, due to | | | | | | unspecified | | | | | | organism, | | | | | | unspecified whether | | | | | | acute organ | | | | | | dysfunction present | | | | | | ([facility]); Chronic | | | | | | obstructive | | | | | | pulmonary disease, | | | | | | unspecified COPD | | | | | | type ([facility]); Weakness | | | | | | generalized | +--------+ + + + + Social [...] + + + | Blood Pressure | 105/55 | 11/29/2019 11:50 AM | | | | | PDT | | + + + + + | Pulse | 80 | 11/29/2019 11:50 AM | | | | | PDT | | + + + + + | Temperature | 36.8 C (98.3 F) | 11/29/2019 11:50 AM | | | | | PDT | | + + + + + | Respiratory Rate | 16 | 11/29/2019 11:50 AM | | | | | PDT | | + + + + + | Oxygen Saturation | 94% | 11/29/2019 11:50 AM | | | | | PDT | | + + + + + | Inhaled Oxygen | - | - | | | Concentration | | | | + + + + + | Weight | 162.3 kg (357 lb | 11/21/2019 5:56 PM | | | | 12.9 oz) | PDT | | + + + + + | Height | 160 cm (5' 3") | 11/21/2019 5:56 PM | | | | | PDT | | + + + + + | Body Mass Index | 63.38 | 11/21/2019 5:56 PM | | | [...] documented as of this encounter Discharge Summaries Romario Rodrigez MD - 11/29/2019 1:15 PM PDTFormatting of this note might be different fro m the original. Patient: Phoenix Dangelo : 1965 Date of Admission: 11/21/2019 Date of Discharge: 11/29/2019 Treatment Team: Alana Arshad MD Discharging Provider: Romario Rodrigez MD Discharge Diagnoses: Principal Problem: Sepsis Active Problems: Anemia of chronic disease Essential hypertension, benign Type 2 diabetes mellitus with diabetic nephropathy, without long-term current use of insu rosy Cyanocobalamin deficiency Hypothyroidism Empyema of pleural space Right lower lobe pneumonia Thrombocytosis COPD (chronic obstructive pulmonary disease) Weakness generalized Procedures Performed: Chief Complaint: Fever, cough, shortness of breath Hospital Course: Phoenix Dangelo is a 54 y.o. female HTN, HLD, DM Type 2, COPD and Chronic Pain who was adm itted on 11/21/2019 as a transfer due to pleural effusion. The patient was initially admitted to [facility] on 11/11/2019 due to fever, dyspne a, leukocytosis and treated for community acquired right lower lobe pneumonia with ceftriaxo ne and azithromyin. With worsening leukocytosis vancomycin was added and patient improved. S putum was positive for MRSA. She was discharged on 11/17/19 on oral doxycycline, however retu rned to the ER a few hours later. Chest xray demonstrated right side pleural effusion. CT ch est was done on 11/21/19 which demonstrated right side large pleural effusion with possibilit y of empyema. The patient was transferred to [facility] for further workup. Interventional radio logy was consulted and patient underwent chest tube placement. Infectious disease was consul brandyn and managed antibiotics. Initially she was on levaquin and vancomycin and then transitio iraida to IV cefatoroline. Cultures from the thoracentesis remained negative. Chest tube was re moved on 11/28/19. The patient continued to do well. She was evaluated by PT who recommended SNF. Patient was accepted to [facility] swing bed with plan to complete IV ceftaroline until December 08, 2019 . Case was discussed with the accepting physician at [facility]. Discharge Exam and Data: Vital Signs: BP 105/55 | Pulse 80 | Temp 36.8 C (98.3 F) (Oral) | Resp 16 | Ht 1.6 m (5' 3") | Wt (!) 162.3 kg (357 lb 12.9 oz) | LMP (LMP Unknown) | SpO2 94% | No | BM I 63.38 kg/m I&O Last 3 Shifts: 11/26 1901 - 11/28 0700 In: 1789 [P.O.:750; I.V.:948] Out: 2420 [Urine:2400] Physical Examination: Constitutional: Alert and oriented to person, place, and time. Appears well-developed and w ell-nourished. HEENT: Neck supple, no JVD, non icteric sclera. Cardiovascular: Normal rate, regular rhythm. No murmur heard. Pulmonary/Chest: Effort normal and breath sounds normal. No stridor. No respiratory distres s. no wheezes. no rales. exhibits no tenderness. Abdominal: Soft. Bowel sounds are normal. exhibits no distension and no mass. There is no t enderness. There is no rebound and no guarding. Extremeties/Musculoskeletal: Normal range of motion.exhibits no tenderness. exhibits no ed steffi. Neurological: Alert and oriented to person, place, and time. No cranial nerve deficit. E xhibits normal muscle tone. Skin: Skin is warm and dry. No rash noted. No erythema. No pallor. Psychiatric: Has a normal mood and affect given situation. Recent Labs Recent Labs Lab 11/28/19 0404 11/27/19 0411 11/26/19 0811 WBC 8.54 12.64* 13.09* HGB 8.4* 9.0* 9.4* HCT 28.5* 29.4* 31.3* PLT 501* 477* 379 Recent Labs Lab 11/29/19 0311 11/28/19 0404 11/27/19 1053 NA 142 143 138 K 4.5 4.4 4.9 CL 109 110* 109 CO2 27 25 24 BUN 23 23 22 CALCIUM 8.9 8.7 8.6 No results for input(s): INR in the last 168 hours. Microbiology Results (Last 14 Days by Collected Date with Culture/Sensitivity) Procedure Component Value Units Date/Time Culture, Body Fluid Sterile [[id number]] Collected: 11/23/19 1055 Order Status: Completed Lab Status: Final result Updated: 11/27/19 0657 Specimen: Body Fluid from Abscess Gram Stain Result NO CELLS OR ORGANISMS SEEN RESULT NO GROWTH 4 DAYS RESULT Testing performed at [facility], [address] [place] [address] Comment: Testing performed at [facility], [address] [place] [id number] Clostridium difficile A and B EIA [[id number]] Order Status: Canceled Lab Status: No result Specimen: Stool Recent Radiology Results Recent Results (from the past 360 hour(s)) CT Guided Chest Tube Placement Narrative CT GUIDED RIGHT CHEST TUBE CLINICAL INFORMATION: Empyema. PROCEDURE: Prior to the procedure, risks and benefits were explained to the patient and informed written and verbal consent obtained. Patient was placed on the CT gantry and initial localizing scans were performed. Using lidocaine for local anesthesia and intravenous sedation, the region is punctured under CT guidance. An 0.35 guide wire is placed into the right pleural space and the tract dilated. A catheter is then placed over the wire. Patient tolerated the procedure well. No immediate complications. Conscious sedation was administered. The nurse administered 1 mg Versed and 50 mcg fentanyl ns during the examination and monitored blood pressure, heart rate, and pulse oximeter. Physician intraservice time of 20 minutes. Estimated Blood Loss: Less than 50 cc's. At least one of the following CT dose optimization techniques were used: Automated exposure control; Adjustment of mA and/or kV according to patient size; Use of iterative reconstruction technique. Impression Uncomplicated drainage of right pleural fluid collection. Sample of pleural fluid is obtained and sent for laboratory analysis per the clinician's orders. A 12 Jamaican locking pigtail catheter is placed. Signed by: Hugh Leggett Richard Sign Date/Time: 11/23/2019 11:36 AM XR Chest AP Portable Narrative CHEST PORTABLE ONE VIEW CLINICAL INFORMATION: Confirm chest tube placement COMPARISON: CT GUIDED CHEST TUBE PLACEMENT (11/23/2019); CT CHEST WITHOUT CONTRAST (11/21/2019); CT CHEST LOW DOSE WITHOUT CONTRAST (11/11/2019); FINDINGS: The heart is enlarged but stable in size. Right-sided pigtail pleural drainage catheter that appears in appropriate position. Pulmonary vascular congestion with interstitial edema. No pneumothorax. Hazy right basilar opacity to likely resent small pleural effusion. Linear bibasilar opacities to likely resent subsegmental atelectasis. Impression 1. Mild interstitial edema with small right-sided pleural effusion. 2. Mild bibasilar subsegmental atelectasis. Signed by: Elsa Monterroso Chet Sign Date/Time: 11/23/2019 1:19 PM XR Chest AP Portable Narrative CHEST PORTABLE ONE VIEW CLINICAL INFORMATION: Pleural effusion. COMPARISON: XR CHEST AP PORTABLE (11/23/2019); CT GUIDED CHEST TUBE PLACEMENT (11/23/2019); CT CHEST WITHOUT CONTRAST (11/21/2019); FINDINGS: Cardiac silhouette is stable in size. No mediastinal widening or shift. There continues to be some blunting of the right lateral costophrenic angle from some pleural fluid. Positioning of the right pigtail catheter is stable. There is no pneumothorax. The pulmonary markings are normal in caliber. Perihilar opacities are greater on the right side than left, unchanged. Impression Stable positioning of right-sided pigtail catheter. The amount of right-sided pleural fluid is unchanged. Signed by: Hugh Mancini Richard Sign Date/Time: 11/24/2019 7:54 AM XR Chest 1 Vw Narrative CHEST ONE VIEW CLINICAL INFORMATION: Follow up pleural effusion. COMPARISON: XR CHEST AP PORTABLE (11/24/2019); XR CHEST AP PORTABLE (11/23/2019); CT GUIDED CHEST TUBE PLACEMENT (11/23/2019); FINDINGS/IMPRESSION: 1. Right lateral pigtail chest drain noted. 2. Stable mild pleural density along the inferolateral right hemithorax. Slightly improved inflation of the right lung. Persistent mild streaky parenchymal density right lung base. No pneumothorax. Mild interstitial prominence bilaterally, right greater left. Minimal linear platelike atelectasis left base. Probable minimal left pleural fluid. 3. Cardiomediastinal contours are stable. 4. No pneumothorax. Signed by: Hugh Myers, Marcel Sign Date/Time: 11/27/2019 6:21 AM XR Chest Inspiration and Expiration Narrative XR CHEST INSPIRATION AND EXPIRATION CLINICAL INFORMATION: Follow up effusion. Chest tube clamped 2 hrs prior COMPARISON: XR CHEST 1 VIEW (11/27/2019); XR CHEST AP PORTABLE (11/24/2019); XR CHEST AP PORTABLE (11/23/2019); CT CHEST WITHOUT CONTRAST (11/21/2019); CT GUIDED CHEST TUBE PLACEMENT (11/23/2019); CT ABDOMEN PELVIS WITH CONTRAST (11/11/2019); FINDINGS: No pneumothorax. Pigtail catheter again noted in the right lateral lung base, with pleural thickening in the lateral right costophrenic sulcus. Minimal strandy change in the right lung base probably due to atelectasis. There is persistent slight prominence of the right perihilar region. This may be due to residual infiltrate. No defined masses seen on CT of 11/21/2019. the heart size is normal. Impression 1. No evidence of pneumothorax post clamping of the right chest pigtail catheter. 2. Persistent pleural thickening lateral right lung base, probably with right basilar atelectasis. 3. Residual density in the right infrahilar region, which may reflect residual infiltrate or dense atelectasis. 4. Unchanged pigtail catheter. Signed by: Hugh Traore Shawn Sign Date/Time: 11/28/2019 7:59 AM XR Chest Inspiration and Expiration Narrative XR CHEST INSPIRATION AND EXPIRATION CLINICAL INFORMATION: Post chest tube removal. COMPARISON: XR CHEST INSPIRATION AND EXPIRATION (11/28/2019); XR CHEST 1 VIEW (11/27/2019); XR CHEST AP PORTABLE (11/24/2019); FINDINGS: There has been interval removal of a right-sided chest tube. A right upper extremity peripherally inserted central catheter terminating at the superior cavoatrial junction is unchanged. A small posterior layering right pleural effusion is present. Heart, lungs and vessels normal. No pneumothorax, pleural effusion or adenopathy. No significant bone abnormality. Impression 1. Status post right chest tube removal without pneumothorax. 2. Small right pleural effusion Signed by: Hugh Zhou, Catalino Sign Date/Time: 11/28/2019 10:54 AM Outstanding Issues: To complete IV ceftaroline on December 08, 2019 Discharge Information: Follow up: [facility] [address] [facility] [id number] On 12/07/2019 follow up infection/pneumonia Remi Talley MD [address] [address] Schedule an appointment as soon as possible for a visit in 1 week hospital follow up Discharge Medications New Medications Details aspirin 81 MG EC tablet Take 1 tablet by mouth Daily. ceftaroline (TEFLARO) 600 mg in sodium chloride 0.9% 50 mL Inject 600 mg into the vein every 12 hours for 10 days. Indications: Community Acquired Pn eumonia, MRSA pneumonia, empyema oxyCODONE-acetaminophen 5-325 mg per tablet Take 1 tablet by mouth every 6 hours as needed for Pain. aka: PERCOCET Changed Medications Details DULoxetine [address] capsule take 1 capsule by mouth once daily What changed: Another medication with the same name was removed. Continue taking this medi cation, and follow the directions you see here. aka: CYMBALTA Unchanged Medications Details acetaminophen 500 mg tablet Take 500 mg by mouth every 6 hours as needed for Pain. aka: TYLENOL albuterol 90 mcg/puff inhaler Inhale 2 puffs into the lungs every 4 (four) hours as needed for Wheezing. ascorbic acid 500 mg tablet Take 500 mg by mouth daily. aka: VITAMIN C atorvaSTATin 10 mg tablet take 1 tablet by mouth once daily aka: LIPITOR capsaicin 0.025% cream apply topically to affected area four times a day aka: ZOSTRIX diclofenac 1% Gel apply 4 grams topically four times a day aka: VOLTAREN fluticasone-salmeterol 500-50 mcg/puff diskus inhaler Inhale 1 Blister into the lungs 2 times daily. aka: ADVAIR, WIXELA INHUB gabapentin 300 mg capsule Take 1 capsule by mouth 3 times daily. aka: NEURONTIN glimepiride 4 mg tablet Take 4 mg by mouth every morning (before breakfast). aka: AMARYL levothyroxine 200 mcg tablet take 1 tablet by mouth every morning before breakfast aka: SYNTHROID lisinopril 5 mg tablet take 1 tablet by mouth once daily aka: PRINIVIL, ZESTRIL metoprolol tartrate 50 mg tablet take 1 tablet by mouth twice a day aka: LOPRESSOR montelukast 10 mg tablet Take 10 mg by mouth nightly. aka: SINGULAIR omeprazole 20 mg capsule Take 20 mg by mouth every morning (before breakfast). aka: priLOSEC SPIRIVA HANDIHALER 18 mcg inhalation capsule Generic drug: tiotropium inhale the contents of one capsule in the handihaler once daily traZODone 50 mg tablet take 1 tablet by mouth at bedtime aka: DESYREL Discontinued Medications clotrimazole-betamethasone cream aka: LOTRISONE doxycycline 100 mg capsule aka: MONODOX metFORMIN 1000 MG tablet aka: GLUCOPHAGE oxyCODONE 5 mg tablet aka: ROXICODONE Disposition: SN[facility] Condition: Stable Code Status: Full Code Discharge took 67 minutes, to include final examination, discussion of admission, and prepa ration of prescriptions, instructions for on-going care, follow-up and documentation of disc harge summary. Romario Rodrigez MD 4:11 PM documented in this encounter Discharge Instructions Instructions JalenCharleneDO - 11/22/2019Incidental finding of spiculated nodules: 10 cm in the upper right anterior lung, 5 mm in the right anterior lung apex. Requires repeat CT scan in 6 months. documented in this encounter Medications at Time of Discharge + + + +---------+ + + | Medication | Sig | Dispensed | Refills | Start | End Date | | | | | | Date | | + + + +---------+ + + | acetaminophen | Take 500 mg by mouth | | 0 | | | | (TYLENOL) 500 mg | every 6 hours as | | | | | | tablet | needed for Pain. | | | | | + + + +---------+ + + | albuterol 90 | Inhale 2 puffs into | | 0 | | | | mcg/puff inhaler | the lungs every 4 | | | | | | | (four) hours as | | | | | | | needed for Wheezing. | | | | | + + + +---------+ + + | ascorbic acid | Take 500 mg by mouth | | 0 | | | | (VITAMIN C) 500 MG | daily. | | | | | | tablet | | | | | | + + + +---------+ + + | aspirin 81 MG EC | Take 1 tablet by | 30 | 0 | 11/29/19 | | | tablet | mouth Daily. | tablet | | 20 | | + + + +---------+ + + | atorvaSTATin | take 1 tablet by | | 0 | 11/24/19 | | | (LIPITOR) 10 mg | mouth once daily | | | 19 | | | tablet | | | | | | + + + +---------+ + + | capsaicin | apply topically to | | 0 | 10/05/19 | | | (ZOSTRIX) 0.025% | affected area four | | | 20 | | | cream | times a day | | | | | + + + +---------+ + + | diclofenac | apply 4 grams | | 0 | 09/25/19 | | | (VOLTAREN) 1% GEL | topically four times | | | 20 | | | | a day | | | | | + + + +---------+ + + | DULoxetine | take 1 capsule by | | 0 | 10/04/19 | | | (CYMBALTA) [address] | mouth once daily | | | 20 | | | capsule | | | | | | + + + +---------+ + + | | Inhale 1 Blister | | 0 | 10/25/19 | | | fluticasone-salmeter | into the lungs 2 | | | 20 | | | ol (MIRNA DICKINSON | times daily. | | | | | | INHUB) 500-50 | | | | | | | mcg/puff diskus | | | | | | | inhaler | | | | | | + + + +---------+ + + | gabapentin | Take 1 capsule by | 90 | 1 | 03/05/20 | | | (NEURONTIN) 300 mg | mouth 3 times daily. | capsule | | 17 | | | capsule | | | | | | + + + +---------+ + + | glimepiride | Take 4 mg by mouth | | 0 | | | | (AMARYL) 4 mg tablet | every morning | | | | | | | (before breakfast). | | | | | + + + +---------+ + + | levothyroxine | take 1 tablet by | | 0 | 09/01/19 | | | (SYNTHROID) 200 mcg | mouth every morning | | | 20 | | | tablet | before breakfast | | | | | + + + +---------+ + + | lisinopril | take 1 tablet by | | 0 | 10/25/19 | | | (PRINIVIL, ZESTRIL) | mouth once daily | | | 20 | | | 5 mg tablet | | | | | | + + + +---------+ + + | metoprolol | take 1 tablet by | | 0 | 11/17/19 | | | tartrate (LOPRESSOR) | mouth twice a day | | | 20 | | | 50 mg tablet | | | | | | + + + +---------+ + + | montelukast | Take 10 mg by mouth | | 0 | | | | (SINGULAIR) 10 mg | nightly. | | | | | | tablet | | | | | | + + + +---------+ + + | omeprazole | Take 20 mg by mouth | | 0 | | | | (PRILOSEC) 20 mg | every morning | | | | | | capsule | (before breakfast). | | | | | + + + +---------+ + + | | Take 1 tablet by | 15 | 0 | 11/28/19 | | | oxyCODONE-acetaminop | mouth every 6 hours | tablet | | 20 | | | hen (PERCOCET) 5-325 | as needed for Pain. | | | | | | mg per tablet | | | | | | + + + +---------+ + + | SPIRIVA HANDIHALER | inhale the contents | | 0 | 11/08/19 | | | 18 MCG inhalation | of one capsule in | | | 20 | | | capsule | the handihaler once | | | | | | | daily | | | | | + + + +---------+ + + | traZODone | take 1 tablet by | | 0 | 01/18/20 | | | (DESYREL) 50 mg | mouth at bedtime | | | 19 | | | tablet | | | | | | + + + +---------+ + + | ceftaroline | Inject 600 mg into | 1 each | 0 | 11/28/19 | | | (TEFLARO) 600 mg in | the vein every 12 | | | 20 | 0 | | sodium chloride 0.9% | hours for 10 days. | | | | | | 50 mLIndications: | Indications: | | | | | | Community Acquired | Community Acquired | | | | | | Pneumonia, MRSA | Pneumonia, MRSA | | | | | | pneumonia, empyema | pneumonia, empyema | | | | | + + + +---------+ + + documented as of this encounter Progress Notes Renetta Giang RN - 11/29/2019 6:54 AM PDTSBP 90's to 110's. Remains on RA. Oxycodone x 2 given PRN pain. Pt up with standby assist and use of walker to restroom. Otherwise raymond rly rounding uneventful End of shift chart check complete Romario Sewell MD - 11/28/2019 11:59 AM PDTFormatting of this note might be di fferent from the original. [facility] Service: Hospitalist Progress Note Pt: Phoenix Dangelo AGE/SEX: 54 y.o. female ROOM: 9101/9101-01 : 1965 PCP: Remi Talley MD ADMIT DATE: 11/21/2019 TODAY'S DATE: 11/28/2019 Hospital Day/Hospital Course: LOS: [address] Rubin "Patient is a 54 year old female with past medical history of HTN, HLD, DM Type 2, COPD and Chronic Pain who was first admitted at [facility] on11/11/19due to dyspnea and fevers.Her labs showed leukocytosis of [address] showed RLL pneumonia without effusio n.COVID testing was negative, she was treated with IV Rocephin and Zithromax for sepsis pr ecipitated by community-acquired pneumonia. She made progress but had persistent leukocytosi s and IV Vancomycin was added. Sputum cultures came positive for MRSA and she showed good si ngs of progress and improvement on antibiotics. She was eventually discharged on11/17/19o n oral Doxycycline, however she returned several hours later the same day with chest pain. CXR there showed right-sided pleural effusion and labs again showed leukocytosis of 22.S he was kept on Doxycycline but due to recurrent shortness of breath and dry cough CT Chest w as done on 11/21/2019 which showed right sided large pleural effusion extending along the me dial side of the lung measuring 3 cm in thickness and few air bubbles features suggestive of empyema.She was then transferred to [facility] for CT Surgery evaluation. She was seen Dr. Vince lei who did not think patient was a good surgical candidate due to multiple comorbidities and morbid obesity. Her recommended IR consultation and a CT-guided right sided pigtail ches t tube was placed without any complications. ID services was on board, she was initially kep t on IV Levaquin and Vancomycin combination by Dr. Arshad. Her subsequent labs showed wors ening creatinine possibly due to vancomycin use and she was transition to IV Ceftaroline 600 mg BID and cultures remain negative for any growth. She had limited output from the chest tube pigtail catheter and TPA/Dornase treatment was started which she completed." SUBJECTIVE: Patient seen and examined. She is sitting up in bed. Her chest tube was removed today and s he is feeling better. No chest pain or shortness of breath at this time. No Abdominal pain, N/V or fever. No dizziness or lightheadedness. Scheduled Medications: ascorbic acid 500 mg Oral Daily aspirin 81 mg Oral Daily atorvaSTATin 10 mg Oral Nightly budesonide-formoterol 2 puff Inhalation RT BID capsaicin Topical 4x Daily cefTARoline 600 mg Intravenous Q12H diclofenac 2 g Topical 4x Daily DULoxetine 60 mg Oral Daily gabapentin 300 mg Oral TID glimepiride 2 mg Oral Daily with breakfast heparin 5,000 Units Subcutaneous 3 times per day insulin lispro 0-6 Units Subcutaneous 4x Daily WC and HS levothyroxine 175 mcg Oral QAM AC lisinopril 5 mg Oral Daily metoprolol tartrate 50 mg Oral BID montelukast 10 mg Oral Nightly nystatin Topical BID pantoprazole 40 mg Oral QAM AC tiotropium 2 puff Inhalation RT Daily traZODone 100 mg Oral Nightly Continuous Infusions dextrose 10% sodium chloride 0.9% 100 mL/hr at 11/24/19 2204 PRN Medications acetaminophen, albuterol, albuterol, Hypoglycemia Management AND POCT Glucose AND d extrose AND dextrose 10%, docusate sodium, HYDROmorphone, melatonin, ondansetron, oxyCOD ONE-acetaminophen, polyethylene glycol, senna Allergy: Allergies Allergen Reactions Penicillins Shortness Of Breath Shellfish-Derived Products Shortness Of Breath Iodinated Diagnostic Agents Other (See Comments) OBJECTIVE: Vitals: Patient Vitals for the past 24 hrs: BP Temp Temp src Pulse Resp SpO2 11/28/19 0818 101/58 36.7 C (98.1 F) Oral 78 18 92 % 11/28/19 0327 103/56 36.5 C (97.7 F) Oral 80 18 92 % 11/27/19 2304 101/55 36.8 C (98.2 F) Oral 85 18 95 % 11/27/19 2115 96/54 85 11/27/19 1943 97/51 36.9 C (98.4 F) Oral 84 18 97 % 11/27/19 1525 106/51 36.8 C (98.2 F) Oral 81 18 95 % 11/27/19 1220 99/55 37.2 C (99 F) Oral 18 94 % I&O Detailed Table: Intake/Output Summary (Last 24 hours) at 11/28/2019 1159 Last data filed at 11/28/2019 0600 Gross per 24 hour Intake 1700 ml Output 1680 ml Net 20 ml No data found. Physical Examination: Constitutional: Awake, interactive. Resting in bed. HEENT: Neck supple, no JVD, non icteric sclera. Cardiovascular: Normal rate, regular rhythm. Exam reveals no appreciated gallop or friction rub. No murmur heard. Pulmonary/Chest: Effort normal and breath sounds normal. no wheezes. no rales. exhibits n o chest wall tenderness. Abdominal: Soft. Bowel sounds are normal. exhibits no distension and no mass. There is no t enderness. There is no rebound and no guarding. Extremeties/Musculoskeletal: Normal range of motion for patient. exhibits no tenderness. e xhibits no edema. Neurological: Alert and oriented to person, place, and time. No cranial nerve deficit appr eciated. Exhibits normal muscle tone. Skin: Skin is warm and dry. No rash noted. No erythema. No pallor. Psychiatric: Has a normal mood and affect given situation. Judgment normal. LABS: Recent Labs Lab 11/28/19 0404 11/27/19 0411 11/26/19 0811 WBC 8.54 12.64* 13.09* HGB 8.4* 9.0* 9.4* HCT 28.5* 29.4* 31.3* PLT 501* 477* 379 MONOPCT 9.50 11.10 9.30 Recent Labs Lab 11/28/19 0404 11/27/19 1053 11/26/19 0706 11/22/19 0518 NA 143 138 139 < > 139 K 4.4 4.9 4.5 < > 4.1 CL 110* 109 109 < > 103 CO2 25 24 23 < > 30 BUN 23 22 16 < > 16 CALCIUM 8.7 8.6 8.9 < > 9.0 ALKPHOS 67 69 -- -- 104 ALT 7* 12 -- -- 26 AST <8* 10 -- -- 25 < > = values in this interval not displayed. Phosphorus: No results found for: PHOS No results for input(s): LABALBU in the last 168 hours. Recent Labs Lab 11/22/19 0518 MG 1.3* No results for input(s): AMYLASE in the last 168 hours. No results for input(s): PHART, PO2ART, XQB0IJN, U4UVNTLL, BEART in the last 168 hours. Recent Labs Lab 11/22/19 0518 INR 1.2 No results for input(s): TSH in the last 168 hours. Invalid input(s): T3FREE, FREET4 No results for input(s): TROPONINT in the last 168 hours. Invalid input(s): CKTOTAL, TROPONINI, CKMBINDEX Microbiology Results (72 hrs) No results found for the last 72 hours. RADIOLOGY: Recent Results (from the past 360 hour(s)) CT Guided Chest Tube Placement Narrative CT GUIDED RIGHT CHEST TUBE CLINICAL INFORMATION: Empyema. PROCEDURE: Prior to the procedure, risks and benefits were explained to the patient and informed written and verbal consent obtained. Patient was placed on the CT gantry and initial localizing scans were performed. Using lidocaine for local anesthesia and intravenous sedation, the region is punctured under CT guidance. An 0.35 guide wire is placed into the right pleural space and the tract dilated. A catheter is then placed over the wire. Patient tolerated the procedure well. No immediate complications. Conscious sedation was administered. The nurse administered 1 mg Versed and 50 mcg fentanyl ns during the examination and monitored blood pressure, heart rate, and pulse oximeter. Physician intraservice time of 20 minutes. Estimated Blood Loss: Less than 50 cc's. At least one of the following CT dose optimization techniques were used: Automated exposure control; Adjustment of mA and/or kV according to patient size; Use of iterative reconstruction technique. Impression Uncomplicated drainage of right pleural fluid collection. Sample of pleural fluid is obtained and sent for laboratory analysis per the clinician's orders. A 12 Jamaican locking pigtail catheter is placed. Signed by: Hugh Leggett Richard Sign Date/Time: 11/23/2019 11:36 AM XR Chest AP Portable Narrative CHEST PORTABLE ONE VIEW CLINICAL INFORMATION: Confirm chest tube placement COMPARISON: CT GUIDED CHEST TUBE PLACEMENT (11/23/2019); CT CHEST WITHOUT CONTRAST (11/21/2019); CT CHEST LOW DOSE WITHOUT CONTRAST (11/11/2019); FINDINGS: The heart is enlarged but stable in size. Right-sided pigtail pleural drainage catheter that appears in appropriate position. Pulmonary vascular congestion with interstitial edema. No pneumothorax. Hazy right basilar opacity to likely resent small pleural effusion. Linear bibasilar opacities to likely resent subsegmental atelectasis. Impression 1. Mild interstitial edema with small right-sided pleural effusion. 2. Mild bibasilar subsegmental atelectasis. Signed by: Elsa Monterroso Chet Sign Date/Time: 11/23/2019 1:19 PM XR Chest AP Portable Narrative CHEST PORTABLE ONE VIEW CLINICAL INFORMATION: Pleural effusion. COMPARISON: XR CHEST AP PORTABLE (11/23/2019); CT GUIDED CHEST TUBE PLACEMENT (11/23/2019); CT CHEST WITHOUT CONTRAST (11/21/2019); FINDINGS: Cardiac silhouette is stable in size. No mediastinal widening or shift. There continues to be some blunting of the right lateral costophrenic angle from some pleural fluid. Positioning of the right pigtail catheter is stable. There is no pneumothorax. The pulmonary markings are normal in caliber. Perihilar opacities are greater on the right side than left, unchanged. Impression Stable positioning of right-sided pigtail catheter. The amount of right-sided pleural fluid is unchanged. Signed by: Hugh Mancini, Calderon Sign Date/Time: 11/24/2019 7:54 AM XR Chest 1 Vw Narrative CHEST ONE VIEW CLINICAL INFORMATION: Follow up pleural effusion. COMPARISON: XR CHEST AP PORTABLE (11/24/2019); XR CHEST AP PORTABLE (11/23/2019); CT GUIDED CHEST TUBE PLACEMENT (11/23/2019); FINDINGS/IMPRESSION: 1. Right lateral pigtail chest drain noted. 2. Stable mild pleural density along the inferolateral right hemithorax. Slightly improved inflation of the right lung. Persistent mild streaky parenchymal density right lung base. No pneumothorax. Mild interstitial prominence bilaterally, right greater left. Minimal linear platelike atelectasis left base. Probable minimal left pleural fluid. 3. Cardiomediastinal contours are stable. 4. No pneumothorax. Signed by: Hugh Myers, Marcel Sign Date/Time: 11/27/2019 6:21 AM XR Chest Inspiration and Expiration Narrative XR CHEST INSPIRATION AND EXPIRATION CLINICAL INFORMATION: Follow up effusion. Chest tube clamped 2 hrs prior COMPARISON: XR CHEST 1 VIEW (11/27/2019); XR CHEST AP PORTABLE (11/24/2019); XR CHEST AP PORTABLE (11/23/2019); CT CHEST WITHOUT CONTRAST (11/21/2019); CT GUIDED CHEST TUBE PLACEMENT (11/23/2019); CT ABDOMEN PELVIS WITH CONTRAST (11/11/2019); FINDINGS: No pneumothorax. Pigtail catheter again noted in the right lateral lung base, with pleural thickening in the lateral right costophrenic sulcus. Minimal strandy change in the right lung base probably due to atelectasis. There is persistent slight prominence of the right perihilar region. This may be due to residual infiltrate. No defined masses seen on CT of 11/21/2019. the heart size is normal. Impression 1. No evidence of pneumothorax post clamping of the right chest pigtail catheter. 2. Persistent pleural thickening lateral right lung base, probably with right basilar atelectasis. 3. Residual density in the right infrahilar region, which may reflect residual infiltrate or dense atelectasis. 4. Unchanged pigtail catheter. Signed by: Hugh Traore Shawn Sign Date/Time: 11/28/2019 7:59 AM XR Chest Inspiration and Expiration Narrative XR CHEST INSPIRATION AND EXPIRATION CLINICAL INFORMATION: Post chest tube removal. COMPARISON: XR CHEST INSPIRATION AND EXPIRATION (11/28/2019); XR CHEST 1 VIEW (11/27/2019); XR CHEST AP PORTABLE (11/24/2019); FINDINGS: There has been interval removal of a right-sided chest tube. A right upper extremity peripherally inserted central catheter terminating at the superior cavoatrial junction is unchanged. A small posterior layering right pleural effusion is present. Heart, lungs and vessels normal. No pneumothorax, pleural effusion or adenopathy. No significant bone abnormality. Impression 1. Status post right chest tube removal without pneumothorax. 2. Small right pleural effusion Signed by: Hugh Zhou, Catalino Sign Date/Time: 11/28/2019 10:54 AM PROBLEM LIST Principal Problem: Sepsis Active Problems: Anemia of chronic disease Essential hypertension, benign Type 2 diabetes mellitus with diabetic nephropathy, without long-term current use of insu rosy Cyanocobalamin deficiency Hypothyroidism Empyema of pleural space Right lower lobe pneumonia Thrombocytosis COPD (chronic obstructive pulmonary disease) Weakness generalized ASSESSMENT & PLAN Sepsis - secondary to empyema/pneumonia - now improved Right lower lobe pneumonia with Empyema right lung - CT surgery was initially consulted and recommended IR guided chest tube placement. - IR managing chest tube, now improved and chest tube removed today - per ID, PICC line placed. Patient to complete IV ceftaroline until December 08 2019 Thrombocytosis - continue aspirin and monitor Hypothyroidism - continue levothyroxine COPD - stable. Not in acute exacerbation HTN - continue lisinopril and metoprolol Anemia of chronic disease - hgb is stable. Continue b12, folic acid and iron supplements GI/DVT prophylaxis Romario Rodrigez MD 11/28/2019 11:59 AM Greater than 35 minutes spent today overall in coordination of care, seeing and managing peter kapoor, review of data, coordination with staff, coordination with involved consultants, and including any scheduled multidisciplinary rounding focused on the patient with 50 percent or more spent seeing and managing patient and counseling/coordination. Dictation software, Hipui, used which may contain error for similar sounding words even af ter review. Personal communication requested for any clarification. Portions of this chart may have been copied from previous notes for continuity of care purp ose EProctorMercedes RPH - 11/28/2019 11:36 AM PDTRenal Dosing Monitoring: Serum creatinine: 1.54 mg/dL (H) 11/28/19 0404 Estimated creatinine clearance: 65 mL/min (A) (using adjusted body weight) - note BMI of 63 kg/m2 Ceftaroline does not need to be adjusted unless CrCl<50 mL/min Patient w/ EVA baseline Scr 1.0 mg/dL. UOP 0.4mL/kg/hr Plan per protocol: Will recommend holding MARTÍN-I in the setting of EVA. Pended order. No medications need adjustment at this time. Pharmacy will continue to monitor changes in medication orders and renal function and will adjust accordingly. 11/28/2019 11:31 AM Pharmacist: Mercedes Roberts RPH Abi Corona MD - 11/28/2019 11:00 AM PDTFormatting of this note might be different from the State [facility] Service: Infectious Disease Progress Note Hospital Day: LOS: 7 days Post-Op Day: * No surgery found * SUBJECTIVE Patient Summary: Re: MRSA pneumonia, loculated pleural effusion History of UTI vs bacteriuria History PCN allergy For details of patient's history, please refer to ID consult note on 11/21 On 11/22, s/p R chest tube placement under IR On 11/23, TPA. EVA - IV vanco/levofloxacin transitioned to ceftaroline Events Overnight: Patient is afebrile and hemodynamically stable. Maintaining oxygen saturation over 90% in room air. States that cough has resolved. Chest pain has improved. Chest tube had been removed by IR this morning. Discharge planning ongoing with plan for discharge to [facility] swing bed. Scheduled Medications ascorbic acid 500 mg Oral Daily aspirin 81 mg Oral Daily atorvaSTATin 10 mg Oral Nightly budesonide-formoterol 2 puff Inhalation RT BID capsaicin Topical 4x Daily cefTARoline 600 mg Intravenous Q12H diclofenac 2 g Topical 4x Daily DULoxetine 60 mg Oral Daily gabapentin 300 mg Oral TID glimepiride 2 mg Oral Daily with breakfast heparin 5,000 Units Subcutaneous 3 times per day insulin lispro 0-6 Units Subcutaneous 4x Daily WC and HS levothyroxine 175 mcg Oral QAM AC lisinopril 5 mg Oral Daily metoprolol tartrate 50 mg Oral BID montelukast 10 mg Oral Nightly nystatin Topical BID pantoprazole 40 mg Oral QAM AC tiotropium 2 puff Inhalation RT Daily traZODone 100 mg Oral Nightly Continuous Infusions dextrose 10% sodium chloride 0.9% 100 mL/hr at 11/24/19 2204 PRN Medications acetaminophen, albuterol, albuterol, Hypoglycemia Management AND POCT Glucose AND d extrose AND dextrose 10%, docusate sodium, HYDROmorphone, melatonin, ondansetron, oxyCOD ONE-acetaminophen, polyethylene glycol, senna OBJECTIVE Vital Signs: Vitals: 11/28/19 1934 BP: 99/51 Pulse: 85 Resp: 18 Temp: 36.7 C (98 F) Physical Exam Vital signs have been reviewed General: Pleasant female, not in acute physical distress. Speaks in complete sentences. HEENT: Normocephalic. Anicteric sclera. Conjunctival pallor is noted. EOM intact. No na juhi mucosal lesions. No sinus tenderness. No tragal tenderness. Moist oral mucosa with no oral thrush or ulcers. Supple neck with no cervical lymphadenopathy Lungs: No chest wall erythema, swelling; some tenderness around prior chest tube site. Decr eased breath sounds at the right lower lung field. No rales, wheezes or rhonchi Cardiovascular: Normal rate. Regular rhythm. No murmur or rubs Abdomen: No distention. Soft. No tenderness, rebound or guarding Skin: No rash. Ecchymotic lesions at upper extremities -improving Musculoskeletal: No inflamed-looking joints Neurologic: Oriented x3. Motor strength intact upper and lower extremities Psychiatric: Appropriate mood and affect PICC at [facility] DATA Recent Results (from the past 24 hour(s)) POC Glucose Collection Time: 11/27/19 9:10 PM Result Value Ref Range Glucose, POC 177 (H) 65 - 99 mg/dL CBC with Differential Collection Time: 11/28/19 4:04 AM Result Value Ref Range WBC 8.54 3.80 - 11.00 K/uL RBC 3.24 (L) 3.70 - 5.10 M/uL Hemoglobin 8.4 (L) 11.3 - 15.5 g/dL Hematocrit 28.5 (L) 34.0 - 46.0 % MCV 88.0 80.0 - 100.0 fl MCH 25.9 (L) 27.0 - 34.0 pg MCHC 29.5 (L) 32.0 - 35.5 g/dL RDW-SD 74.8 (H) 37 - 53 fl Platelet Count 501 (H) 150 - 400 K/uL MPV 10.0 fl Diff Type AUTOMATED % nRBC 0.0 0 /100WBC % Neutrophils 65.60 % % Lymphocytes 18.40 % Monocyte % 9.50 % Eosinophils % 3.90 % Basophils % 0.60 % IMMATURE GRANULOCYTE 2.00 % Neutrophils, Absolute 5.61 1.90 - 7.40 K/uL Absolute Lymphocytes 1.57 1.00 - 3.90 K/uL Absolute Monocytes 0.81 (H) 0.00 - 0.80 K/uL Eosinophils, Absolute 0.33 0.00 - 0.50 K/uL Basophils, Absolute 0.05 0.00 - 0.10 K/uL IMMATURE GRANS AB 0.17 (H) 0.00 - 0.07 K/uL Platelet Estimate INCREASED RBC Morphology 3+ Comprehensive Metabolic Panel Collection Time: 11/28/19 4:04 AM Result Value Ref Range Na 143 135 - 145 mmol/L K 4.4 3.5 - 4.9 mmol/L Cl 110 (H) 99 - 109 mmol/L CO2 25 23 - 32 mmol/L Anion Gap 12 5 - 20 mmol/L Glucose 149 (H) 65 - 99 mg/dL BUN 23 8 - 25 mg/dL Creatinine 1.54 (H) 0.50 - 1.00 mg/dL BUN/Creatinine Ratio 15 Calcium 8.7 8.5 - 10.5 mg/dL Protein, Total 5.7 (L) 6.3 - 8.2 g/dL Albumin 2.6 (L) 3.6 - 5.0 g/dL Globulin 3.1 1.3 - 4.9 g/dL A/G Ratio 0.8 (L) 1.0 - 2.4 BILIRUBIN, TOTAL <0.2 0.1 - 1.5 mg/dL ALK PHOS 67 35 - 115 U/L AST <8 (L) 10 - 45 U/L ALT 7 (L) 10 - 65 U/L Estimated GFR 35 (L) >60 mL/min/1.73m2 POC Glucose Collection Time: 11/28/19 8:17 AM Result Value Ref Range Glucose, POC 113 (H) 65 - 99 mg/dL POC Glucose Collection Time: 11/28/19 11:55 AM Result Value Ref Range Glucose, POC 190 (H) 65 - 99 mg/dL POC Glucose Collection Time: 11/28/19 5:04 PM Result Value Ref Range Glucose, POC 92 65 - 99 mg/dL Microbiology data: 11/22 pleural fluid Gram stain with no cells or organisms; culture with no growth Pleural fluid cytology with no malignant cells Radiology data: CXR IMPRESSION: 1. Status post right chest tube removal without pneumothorax. 2. Small right pleural effusion Signed by: Hugh Zhou David Sign Date/Time: 11/28/2019 10:54 AM Chest x-ray FINDINGS/IMPRESSION: 1. Right lateral pigtail chest drain noted. 2. Stable mild pleural density along the inferolateral right hemithorax. Slightly improved inflation of the right lung. Persistent mild streaky parenchymal density right lung base. No pneumothorax. Mild interstitial prominence bilaterally, right greater left. Minimal linear platelike atelectasis left base. Probable minimal left pleural fluid. 3. Cardiomediastinal contours are stable. 4. No pneumothorax. Signed by: Hugh Myers Mark Sign Date/Time: 11/27/2019 6:21 AM PROBLEM LIST Principal Problem: Sepsis Active Problems: Anemia of chronic disease Essential hypertension, benign Type 2 diabetes mellitus with diabetic nephropathy, without long-term current use of insu rosy Cyanocobalamin deficiency Hypothyroidism Empyema of pleural space Right lower lobe pneumonia Thrombocytosis COPD (chronic obstructive pulmonary disease) Weakness generalized ASSESSMENT & PLAN Loculated right pleural effusion/empyema in a patient with known MRSA pneumonia -Patient has not been septic -Prior sputum culture grew MRSA with blood culture showing no growth -COVID-19 testing on 11/10 had been negative -Patient is currently hemodynamically stable; oxygen saturation stable in room air. Leuko cytosis resolved. -EVA: Patient's creatinine improving, creatinine now 1.54 with GFR 65. She had suprathera peutic vancomycin levels -Antibiotic therapy: Patient had been on IV vancomycin and levofloxacin from 11/20- Linezolid considered but not prescribed because of risk for serotonin release syndrome/d rug interaction. Rx: Ceftaroline. See OPAT plan -CT surgery consulted. Chest tube placed on 11/22 by Interventional Radiology. Improved d rainage with TPA; chest tube d/c'd today -Chest CT scan also showed spiculated nodules; follow-up chest CT scan has been recommende d in 6 months History of bacteriuria, ? UTI -Patient currently has no symptoms of urinary tract infection Thrombocytosis -Most likely reactive; monitor Type 2 diabetes mellitus -Specifics of management per hospitalist service Nausea -Improved; anti-emetics prn Anemia -Attributed to chronic disease, vitamin B12 deficiency -Specifics of therapy per hospitalist service Case Management consulted IV acess: RUE PICC Antibiotic on discharge: Ceftaroline 600 mg IV every 12 Antibiotic duration: 2 weeks from drainage of pleural fluid Antibiotic stop date: 12/08/2019 Laboratory monitoring: CBC, CMP weekly while on IV antibiotics; chest x-ray around 12/05 Orders are in Epic/paper chart Patient/significant caregivers have been advised regarding potential antibiotic side effect s including antibiotic associated diarrhea, yeast infections, skin rash, line-related compli cations. Patient has been advised to contact the ID clinic if any symptoms of antibiotic si de effects ensue or if any concerns/questions regarding infection arise. ID clinic follow up: 12/06 Case discussed with Case Management Code Status: Full Code Alana Arshad MD 11/28/2019 Anastasiia Baptiste PA - 11/28/2019 10:29 AM PDTFormatting of this note might be different from the origi nal. Interventional Radiology Progress Note Patient Name: Phoenix Dangelo Date of : 1965 Interval History/Subjective: Phoenix Dangelo is a 54 y.o. female with loculated right pleural effusion s/p tpa/dornase fibrinolytic protocol. Output recorded over the past 24 hours was 60 ml. CXR this AM is stab le. O2 sats > 92% on RA today. Labs: 3 Day Labs: Recent Labs Lab 11/28/19 0404 11/27/19 1053 11/27/19 0411 11/26/19 0811 11/26/19 0706 11/22/19 0518 WBC 8.54 -- 12.64* 13.09* -- < > 17.08* HGB 8.4* -- 9.0* 9.4* -- < > 9.4* HCT 28.5* -- 29.4* 31.3* -- < > 30.6* PLT 501* -- 477* 379 -- < > 570* NA 143 138 -- -- 139 < > 139 K 4.4 4.9 -- -- 4.5 < > 4.1 CL 110* 109 -- -- 109 < > 103 CO2 25 24 -- -- 23 < > 30 BUN 23 22 -- -- 16 < > 16 CALCIUM 8.7 8.6 -- -- 8.9 < > 9.0 MG -- -- -- -- -- -- 1.3* ALKPHOS 67 69 -- -- -- -- 104 ALBUMIN 2.6* 1.5* -- -- -- -- 3.0* INR -- -- -- -- -- -- 1.2 < > = values in this interval not displayed. Pertinent Imaging/Procedures: Xr Chest Inspiration And Expiration Result Date: 11/28/2019 XR CHEST INSPIRATION AND EXPIRATION CLINICAL INFORMATION: Follow up effusion. Chest tube cl amped 2 hrs prior COMPARISON: XR CHEST 1 VIEW (11/27/2019); XR CHEST AP PORTABLE (11/24/2019); XR CHEST AP PORTABLE (11/23/2019); CT CHEST WITHOUT CONTRAST (11/21/2019); CT GUIDED CHEST TUB E PLACEMENT (11/23/2019); CT ABDOMEN PELVIS WITH CONTRAST (11/11/2019); FINDINGS: No pneumotho rax. Pigtail catheter again noted in the right lateral lung base, with pleural thickening i n the lateral right costophrenic sulcus. Minimal strandy change in the right lung base prob ably due to atelectasis. There is persistent slight prominence of the right perihilar regio n. This may be due to residual infiltrate. No defined masses seen on CT of 11/21/2019. the heart size is normal. 1. No evidence of pneumothorax post clamping of the right chest pigtail catheter. 2. Persis tent pleural thickening lateral right lung base, probably with right basilar atelectasis. 3. Residual density in the right infrahilar region, which may reflect residual infiltrate or d ense atelectasis. 4. Unchanged pigtail catheter. Signed by: Hugh Traore Shawn Sign Date/Derrick e: 11/28/2019 7:59 AM Xr Chest Ap Portable Result Date: 11/24/2019 CHEST PORTABLE ONE VIEW CLINICAL INFORMATION: Pleural effusion. COMPARISON: XR CHEST AP POR TABLE (11/23/2019); CT GUIDED CHEST TUBE PLACEMENT (11/23/2019); CT CHEST WITHOUT CONTRAST (); FINDINGS: Cardiac silhouette is stable in size. No mediastinal widening or shift. There continues to be some blunting of the right lateral costophrenic angle from some pleu ral fluid. Positioning of the right pigtail catheter is stable. There is no pneumothorax. The pulmonary markings are normal in caliber. Perihilar opacities are greater on the right side than left, unchanged. Stable positioning of right-sided pigtail catheter. The amount of right-sided pleural flui d is unchanged. Signed by: Hugh Mancini Richard Sign Date/Time: 11/24/2019 7:54 AM Xr Chest Ap Portable Result Date: 11/23/2019 CHEST PORTABLE ONE VIEW CLINICAL INFORMATION: Confirm chest tube placement COMPARISON: CT G UIDED CHEST TUBE PLACEMENT (11/23/2019); CT CHEST WITHOUT CONTRAST (11/21/2019); CT CHEST LOW DOSE WITHOUT CONTRAST (11/11/2019); FINDINGS: The heart is enlarged but stable in size. Righ t-sided pigtail pleural drainage catheter that appears in appropriate position. Pulmonary v ascular congestion with interstitial edema. No pneumothorax. Hazy right basilar opacity to likely resent small pleural effusion. Linear bibasilar opacities to likely resent subsegme ntal atelectasis. 1. Mild interstitial edema with small right-sided pleural effusion. 2. Mild bibasilar subse gmental atelectasis. Signed by: Elsa Monterroso Chet Sign Date/Time: 11/23/2019 1:[address] Guided Chest Tube Placement Result Date: 11/23/2019 CT GUIDED RIGHT CHEST TUBE CLINICAL INFORMATION: Empyema. PROCEDURE: Prior to the procedure , risks and benefits were explained to the patient and informed written and verbal consent o btained. Patient was placed on the CT gantry and initial localizing scans were performed. Us ing lidocaine for local anesthesia and intravenous sedation, the region is punctured under C T guidance. An 0.35 guide wire is placed into the right pleural space and the tract dilated. A catheter is then placed over the wire. Patient tolerated the procedure well. No immediate complications. Conscious sedation was administered. The nurse administered 1 mg Versed and 50 mcg fentanyl ns during the examination and monitored blood pressure, heart rate, and pul se oximeter. Physician intraservice time of 20 minutes. Estimated Blood Loss: Less than 50 c c's. At least one of the following CT dose optimization techniques were used: Automated expo sure control; Adjustment of mA and/or kV according to patient size; Use of iterative reconst ruction technique. Uncomplicated drainage of right pleural fluid collection. Sample of pleural fluid is obtai iraida and sent for laboratory analysis per the clinician's orders. A 12 Jamaican locking pigtail catheter is placed. Signed by: Hugh Leggett Richard Sign Date/Time: 11/23/2019 11:36 AM Xr Chest 1 Vw Result Date: 11/27/2019 CHEST ONE VIEW CLINICAL INFORMATION: Follow up pleural effusion. COMPARISON: XR CHEST AP PO RTABLE (11/24/2019); XR CHEST AP PORTABLE (11/23/2019); CT GUIDED CHEST TUBE PLACEMENT ( 020); FINDINGS/IMPRESSION: 1. Right lateral pigtail chest drain noted. 2. Stable mild pleura l density along the inferolateral right hemithorax. Slightly improved inflation of the righ t lung. Persistent mild streaky parenchymal density right lung base. No pneumothorax. Mild interstitial prominence bilaterally, right greater left. Minimal linear platelike atelecta sis left base. Probable minimal left pleural fluid. 3. Cardiomediastinal contours are stabl e. 4. No pneumothorax. Signed by: Hugh Myers Mark Sign Date/Time: 11/27/2019 6:21 AM Physical Examination: Vitals: 11/28/19 0818 BP: 101/58 Pulse: 78 Resp: 18 Temp: 36.7 C (98.1 F) Physical Exam Constitutional: She is oriented to person, place, and time. No distress. HENT: Head: Normocephalic and atraumatic. Neck: Neck supple. Pulmonary/Chest: Effort normal. No respiratory distress. Musculoskeletal: General: Tenderness (near drain site) present. Neurological: She is alert and oriented to person, place, and time. Skin: Skin is warm and dry. She is not diaphoretic. Psychiatric: Mood and affect normal. Assessment and Plan: Loculated pleural effusion s/p fibrinolysis. Improvement of effusion, with > 1 liter remove d. Chest tube was removed at bedside. Post procedure CXR without pneumothorax. IR will sign off at this time. Please call if there are any further questions. Bev Cartwright PA-C Vascular and Interventional Radiology EBerryNeo RD - 11/28/2019 9:37 AM PDT NUTRITION NOTE Summary Reason For Assessment: per organizational policy(Triggers for LoS. ) Pt admitted for Sepsis, Empyema R pleural effusion, has hx of DM2. Fluid/Beverage Intake Oral Fluids Amount: Ad le Food Intake Type of Food/Meals: Current active diet order is: Diet Diet consistent carb; 60 gm CARB/Meal; Effective Now Amount of Food: Per charting pt eating 100% of meals. Spoke with RN this morning who report s pt has a good appetite, is eating 100% x 3 meals a day. Nourishments: not indicated at this time. Nutritionally Relevant Medications vit C, humalog. Anthropometrics No new wt to assess since admit wt. Recommend weekly wts to help assess the trend. Admit Weight: (!) 162.3 kg (357 lb 12.9 oz) BMI 63.38 - class III obesity. Biochemical Data, Medical Test, and Procedures Recent Labs 11/28/19 0404 NA 143 K 4.4 GLU 149* BUN 23 CREA 1.54* Recommendations Continue diet as ordered. Monitor intake. Nutritional Risk Required Follow Up: 7 days(L 12/04) Neo Thornton RD, CD 11/28/2019 9:37 AM Renetta Erickson RN - 11/28/2019 6:25 AM PDTChest tube clamped at 0500 this AM. Chest xray ordered for 0700 AM . SBP 90's to 100's. Percocet x [address] output [address] Ot herwise hourly rounding uneventful End of shift chart check complete Bev Baptiste PA - 11/27/2019 2:17 PM PDTFormatting of this note might be di fferent from the original. Interventional Radiology Progress Note Patient Name: Phoenix Dangelo Date of : 1965 Interval History/Subjective: Phoenix Dangelo is a 54 y.o. female with loculated right pleural effusion s/p tpa/dornase fibrinolytic protocol. Output recorded over the past 24 hours was 580 ml. CXR this am shows improvement of the effusion. O2 sats > 94% on RA today. There does not appear to be much out put thus far today. Labs: 3 Day Labs: Recent Labs Lab 11/27/19 1053 11/27/19 0411 11/26/19 0811 11/26/19 0706 11/25/19 0513 11/22/19 0518 WBC -- 12.64* 13.09* -- 10.88 < > 17.08* HGB -- 9.0* 9.4* -- 9.1* < > 9.4* HCT -- 29.4* 31.3* -- 30.7* < > 30.6* PLT -- 477* 379 -- 554* < > 570* NA 138 -- -- 139 142 < > 139 K 4.9 -- -- 4.5 4.8 < > 4.1 CL 109 -- -- 109 110* < > 103 CO2 24 -- -- 23 26 < > 30 BUN 22 -- -- 16 15 < > 16 CALCIUM 8.6 -- -- 8.9 8.6 < > 9.0 MG -- -- -- -- -- -- 1.3* ALKPHOS 69 -- -- -- -- -- 104 ALBUMIN 1.5* -- -- -- -- -- 3.0* INR -- -- -- -- -- -- 1.2 < > = values in this interval not displayed. Pertinent Imaging/Procedures: Xr Chest Ap Portable Result Date: 11/24/2019 CHEST PORTABLE ONE VIEW CLINICAL INFORMATION: Pleural effusion. COMPARISON: XR CHEST AP POR TABLE (11/23/2019); CT GUIDED CHEST TUBE PLACEMENT (11/23/2019); CT CHEST WITHOUT CONTRAST (); FINDINGS: Cardiac silhouette is stable in size. No mediastinal widening or shift. There continues to be some blunting of the right lateral costophrenic angle from some pleu ral fluid. Positioning of the right pigtail catheter is stable. There is no pneumothorax. The pulmonary markings are normal in caliber. Perihilar opacities are greater on the right side than left, unchanged. Stable positioning of right-sided pigtail catheter. The amount of right-sided pleural flui d is unchanged. Signed by: Hugh Mancini Richard Sign Date/Time: 11/24/2019 7:54 AM Xr Chest Ap Portable Result Date: 11/23/2019 CHEST PORTABLE ONE VIEW CLINICAL INFORMATION: Confirm chest tube placement COMPARISON: CT G UIDED CHEST TUBE PLACEMENT (11/23/2019); CT CHEST WITHOUT CONTRAST (11/21/2019); CT CHEST LOW DOSE WITHOUT CONTRAST (11/11/2019); FINDINGS: The heart is enlarged but stable in size. Righ t-sided pigtail pleural drainage catheter that appears in appropriate position. Pulmonary v ascular congestion with interstitial edema. No pneumothorax. Hazy right basilar opacity to likely resent small pleural effusion. Linear bibasilar opacities to likely resent subsegme ntal atelectasis. 1. Mild interstitial edema with small right-sided pleural effusion. 2. Mild bibasilar subse gmental atelectasis. Signed by: Elsa Monterroso Chet Sign Date/Time: 11/23/2019 1:[address] Guided Chest Tube Placement Result Date: 11/23/2019 CT GUIDED RIGHT CHEST TUBE CLINICAL INFORMATION: Empyema. PROCEDURE: Prior to the procedure , risks and benefits were explained to the patient and informed written and verbal consent o btained. Patient was placed on the CT gantry and initial localizing scans were performed. Us ing lidocaine for local anesthesia and intravenous sedation, the region is punctured under C T guidance. An 0.35 guide wire is placed into the right pleural space and the tract dilated. A catheter is then placed over the wire. Patient tolerated the procedure well. No immediate complications. Conscious sedation was administered. The nurse administered 1 mg Versed and 50 mcg fentanyl ns during the examination and monitored blood pressure, heart rate, and pul se oximeter. Physician intraservice time of 20 minutes. Estimated Blood Loss: Less than 50 c c's. At least one of the following CT dose optimization techniques were used: Automated expo sure control; Adjustment of mA and/or kV according to patient size; Use of iterative reconst ruction technique. Uncomplicated drainage of right pleural fluid collection. Sample of pleural fluid is obtai iraida and sent for laboratory analysis per the clinician's orders. A 12 Jamaican locking pigtail catheter is placed. Signed by: Hugh Leggett Richard Sign Date/Time: 11/23/2019 11:36 AM Xr Chest 1 Vw Result Date: 11/27/2019 CHEST ONE VIEW CLINICAL INFORMATION: Follow up pleural effusion. COMPARISON: XR CHEST AP PO RTABLE (11/24/2019); XR CHEST AP PORTABLE (11/23/2019); CT GUIDED CHEST TUBE PLACEMENT ( 020); FINDINGS/IMPRESSION: 1. Right lateral pigtail chest drain noted. 2. Stable mild pleura l density along the inferolateral right hemithorax. Slightly improved inflation of the righ t lung. Persistent mild streaky parenchymal density right lung base. No pneumothorax. Mild interstitial prominence bilaterally, right greater left. Minimal linear platelike atelecta sis left base. Probable minimal left pleural fluid. 3. Cardiomediastinal contours are stabl e. 4. No pneumothorax. Signed by: Hugh Myers Mark Sign Date/Time: 11/27/2019 6:21 AM Physical Examination: Vitals: 11/27/19 1220 BP: 99/55 Pulse: Resp: 18 Temp: 37.2 C (99 F) Physical Exam Constitutional: She is oriented to person, place, and time. No distress. HENT: Head: Normocephalic and atraumatic. Pulmonary/Chest: Effort normal. No respiratory distress. Neurological: She is alert and oriented to person, place, and time. Skin: Skin is warm and dry. She is not diaphoretic. Right chest tube C/D/I with surrounding area TTP. No erythema or induration visualized surr ounding chest tube Psychiatric: Mood and affect normal. Assessment and Plan: Right loculated pleural effusion s/p chest tube placement. Continue to monitor output. Repe at CXR in the AM. If minimal output, but residual effusion seen, will restart tpa/dornase. I f improvement of effusion with minimal output, will consider chest tube removal. PETER Koch-C Vascular and Interventional Radiology Alana Corona M D - 11/27/2019 10:18 AM PDT [facility] Service: Infectious Disease Progress Note Hospital Day: LOS: 6 days Post-Op Day: * No surgery found * SUBJECTIVE Patient Summary: Re: MRSA pneumonia, loculated pleural effusion History of UTI vs bacteriuria History PCN allergy For details of patient's history, please refer to ID consult note on 11/21 On 11/22, s/p R chest tube placement under IR On 11/23, TPA. EVA - IV vanco/levofloxacin transitioned to ceftaroline Events Overnight: Afebrile, had blood pressure readings yesterday of 80-90s; hemodynamically stable today. H ad been on 2 L of oxygen - in room air when I saw her Chest tube in place - IR following after tPA Scheduled Medications ascorbic acid 500 mg Oral Daily aspirin 81 mg Oral Daily atorvaSTATin 10 mg Oral Nightly budesonide-formoterol 2 puff Inhalation RT BID capsaicin Topical 4x Daily cefTARoline 600 mg Intravenous Q12H diclofenac 2 g Topical 4x Daily dornase bridger (PULMOZYME) syringe (intrapleural use) 5 mg Intrapleural Q12H DULoxetine 60 mg Oral Daily gabapentin 300 mg Oral TID glimepiride 2 mg Oral Daily with breakfast heparin 5,000 Units Subcutaneous 3 times per day insulin lispro 0-6 Units Subcutaneous 4x Daily WC and HS levothyroxine 175 mcg Oral QAM AC lisinopril 5 mg Oral Daily metoprolol tartrate 50 mg Oral BID montelukast 10 mg Oral Nightly nystatin Topical BID pantoprazole 40 mg Oral QAM AC tiotropium 2 puff Inhalation RT Daily traZODone 100 mg Oral Nightly Continuous Infusions dextrose 10% sodium chloride 0.9% 100 mL/hr at 11/24/19 2204 PRN Medications acetaminophen, albuterol, albuterol, Hypoglycemia Management AND POCT Glucose AND d extrose AND dextrose 10%, docusate sodium, HYDROmorphone, melatonin, ondansetron, oxyCOD ONE-acetaminophen, polyethylene glycol, senna OBJECTIVE Vital Signs: Vitals: 11/27/19 0913 BP: 108/63 Pulse: 96 Resp: Temp: Physical Exam Vital signs have been reviewed General: Pleasant female, not in acute physical distress. Speaks in complete sentences. HEENT: Normocephalic. Anicteric sclera. Conjunctival pallor is noted. EOM intact. No na juhi mucosal lesions. No sinus tenderness. No tragal tenderness. Moist oral mucosa with no oral thrush or ulcers. Supple neck with no cervical lymphadenopathy Lungs: Right chest tube in place. Decreased breath sounds at the right lower lung field. N o wheezes or rhonchi Cardiovascular: Normal rate. Regular rhythm. No murmur or rubs Abdomen: No distention. Soft. No tenderness, rebound or guarding Skin: No rash. Ecchymotic lesions at upper extremities -improving Musculoskeletal: No inflamed-looking joints Neurologic: Oriented x3. Motor strength intact upper and lower extremities Psychiatric: Appropriate mood and affect PICC at [facility] DATA Recent Results (from the past 24 hour(s)) POC Glucose Collection Time: 11/26/19 12:49 PM Result Value Ref Range Glucose, POC 162 (H) 65 - 99 mg/dL POC Glucose Collection Time: 11/26/19 5:14 PM Result Value Ref Range Glucose, POC 173 (H) 65 - 99 mg/dL POC Glucose Collection Time: 11/26/19 7:18 PM Result Value Ref Range Glucose, POC 196 (H) 65 - 99 mg/dL Lactic Acid Collection Time: 11/26/19 8:22 PM Result Value Ref Range Lactate, Serum 1.3 0.4 - 2.0 mmol/L POC Glucose Collection Time: 11/26/19 9:32 PM Result Value Ref Range Glucose, POC 191 (H) 65 - 99 mg/dL CBC with Differential Collection Time: 11/27/19 4:11 AM Result Value Ref Range WBC 12.64 (H) 3.80 - 11.00 K/uL RBC 3.40 (L) 3.70 - 5.10 M/uL Hemoglobin 9.0 (L) 11.3 - 15.5 g/dL Hematocrit 29.4 (L) 34.0 - 46.0 % MCV 86.5 80.0 - 100.0 fl MCH 26.5 (L) 27.0 - 34.0 pg MCHC 30.6 (L) 32.0 - 35.5 g/dL RDW-SD 73.0 (H) 37 - 53 fl Platelet Count 477 (H) 150 - 400 K/uL MPV 10.9 fl Diff Type AUTOMATED % nRBC 0.0 0 /100WBC % Neutrophils 74.30 % IMMATURE GRANULOCYTE 1.90 % % Lymphocytes 11.90 % Monocyte % 11.10 % Eosinophils % 2.20 % Basophils % 0.50 % Neutrophils, Absolute 9.15 (H) 1.90 - 7.40 K/uL IMMATURE GRANS AB 0.24 (H) 0.00 - 0.07 K/uL Absolute Lymphocytes 1.51 1.00 - 3.90 K/uL Absolute Monocytes 1.40 (H) 0.00 - 0.80 K/uL Eosinophils, Absolute 0.28 0.00 - 0.50 K/uL Basophils, Absolute 0.06 0.00 - 0.10 K/uL RBC Morphology 2+ POC Glucose Collection Time: 11/27/19 8:25 AM Result Value Ref Range Glucose, POC 202 (H) 65 - 99 mg/dL Microbiology data: 11/22 pleural fluid Gram stain with mucinous organism; culture with no growth Pleural fluid cytology with no malignant cells Radiology data: Chest x-ray FINDINGS/IMPRESSION: 1. Right lateral pigtail chest drain noted. 2. Stable mild pleural density along the inferolateral right hemithorax. Slightly improved inflation of the right lung. Persistent mild streaky parenchymal density right lung base. No pneumothorax. Mild interstitial prominence bilaterally, right greater left. Minimal linear platelike atelectasis left base. Probable minimal left pleural fluid. 3. Cardiomediastinal contours are stable. 4. No pneumothorax. Signed by: Hugh Myers, Marcel Sign Date/Time: 11/27/2019 6:21 AM PROBLEM LIST Principal Problem: Sepsis Active Problems: Anemia of chronic disease Essential hypertension, benign Type 2 diabetes mellitus with diabetic nephropathy, without long-term current use of insu rosy Cyanocobalamin deficiency Hypothyroidism Empyema of pleural space Right lower lobe pneumonia Thrombocytosis COPD (chronic obstructive pulmonary disease) Weakness generalized ASSESSMENT & PLAN Loculated right pleural effusion/empyema in a patient with known MRSA pneumonia -Patient has not been septic -Prior sputum culture grew MRSA with blood culture showing no growth -COVID-19 testing on 11/10 had been negative -Patient is currently hemodynamically stable; oxygen saturation stable in room air. WBC a t 12.6k (peak of 17k on admission) -EVA: Patient's creatinine at 1.7; GFR 59. She had supratherapeutic vancomycin levels -Antibiotic therapy: Patient had been on IV vancomycin and levofloxacin from 11/20- Linezolid considered but not prescribed because of risk for serotonin release syndrome/d rug interaction. Rx: Ceftaroline. PICC placed; current plan of ceftaroline until December 07, with ultimate duration of antibiotics depending on clinical and radiologic progress. She agrees with this plan. -CT surgery consulted. Chest tube placed on 11/22 by Interventional Radiology. Improved d rainage with TPA; CXR shows mild improvement of R lung inflation. Await IR recommendation. -Chest CT scan also showed spiculated nodules; follow-up chest CT scan has been recommende d in 6 months History of bacteriuria, ? UTI -Patient currently has no symptoms of urinary tract infection Thrombocytosis -Most likely reactive; monitor Type 2 diabetes mellitus -Specifics of management per hospitalist service Nausea -Improved; anti-emetics prn Anemia -Attributed to chronic disease, vitamin B12 deficiency -Specifics of therapy per hospitalist service Code Status: Full Code Alana Arshad MD 11/27/2019 Constantin, nathanael Navas MD - 11/27/2019 8:22 AM PDT Service: Hospitalist Daily Progress Note Phoenix Dangelo 54 y.o. : 1965 SEX: female PCP: Remi Talley MD Hospital Day: LOS: 6 SUBJECTIVE Patient Summary: Patient is a 54 year old female with past medical history of HTN, HLD, DM Type 2, COPD and Chronic Pain who was first admitted at [facility] on 11/11/19 due to dyspnea an d fevers. Her labs showed leukocytosis of [address] showed RLL pneumonia without effusion. C OVID testing was negative, she was treated with IV Rocephin and Zithromax for sepsis precipi tated by community-acquired pneumonia. She made progress but had persistent leukocytosis and IV Vancomycin was added. Sputum cultures came positive for MRSA and she showed good sings o f progress and improvement on antibiotics. She was eventually discharged on 11/17/19 on oral Doxycycline, however she returned several hours later the same day with chest pain. CXR th showed right-sided pleural effusion and labs again showed leukocytosis of 22.She was k ept on Doxycycline but due to recurrent shortness of breath and dry cough CT Chest was done on 11/21/2019 which showed right sided large pleural effusion extending along the medial pauline e of the lung measuring 3 cm in thickness and few air bubbles features suggestive of empyema . She was then transferred to [facility] for CT Surgery evaluation. She was seen Dr. Walden who did not think patient was a good surgical candidate due to multiple comorbidities and morbi d obesity. Her recommended IR consultation and a CT-guided right sided pigtail chest tube wa s placed without any complications. ID services was on board, she was initially kept on IV L evaquin and Vancomycin combination by Dr. Arshad. Her subsequent labs showed worsening cre atinine possibly due to vancomycin use and she was transition to IV Ceftaroline 600 mg BID a nd cultures remain negative for any growth. She had limited output from the chest tube pigt ail catheter and TPA/Dornase treatment was started which she completed. Events Overnight: Patient seen and examined. Overnight events noted. Patient was seen awake and alert. She re ported feeling fair this AM, was more tired and fatigued per staff report. Patient slept brad r, denied chest pains, fever, chills, headaches, nausea, vomiting or worsening shortness of breath. Also denied abdominal pain, diarrhea or constipation. Appetite is fair and remained afebrile. Scheduled Medications acetaminophen, 650 mg, Oral, Q6H PRN albuterol, 2 puff, Inhalation, Q4H PRN albuterol, 2 puff, Inhalation, RT Q4H PRN alteplase (ACTIVASE) syringe (NOT for IV use), 10 mg, Intrapleural, Q12H ascorbic acid, 500 mg, Oral, Daily aspirin, 81 mg, Oral, Daily atorvaSTATin, 10 mg, Oral, Nightly budesonide-formoterol, 2 puff, Inhalation, RT BID capsaicin, , Topical, 4x Daily cefTARoline, 600 mg, Intravenous, Q12H dextrose, 12.5-25 g, Intravenous, PRN And dextrose 10%, , Intravenous, Continuous PRN diclofenac, 2 g, Topical, 4x Daily docusate sodium, 100 mg, Oral, BID PRN dornase bridger (PULMOZYME) syringe (intrapleural use), 5 mg, Intrapleural, Q12H DULoxetine, 60 mg, Oral, Daily gabapentin, 300 mg, Oral, TID glimepiride, 2 mg, Oral, Daily with breakfast heparin, 5,000 Units, Subcutaneous, 3 times per day HYDROmorphone, 0.5-1 mg, Intravenous, Q3H PRN insulin lispro, 0-6 Units, Subcutaneous, 4x Daily WC and HS levothyroxine, 175 mcg, Oral, QAM AC lisinopril, 5 mg, Oral, Daily melatonin, 3 mg, Oral, Nightly PRN metoprolol tartrate, 50 mg, Oral, BID montelukast, 10 mg, Oral, Nightly nystatin, , Topical, BID ondansetron, 4 mg, Intravenous, Q6H PRN oxyCODONE, 5-15 mg, Oral, Q4H PRN pantoprazole, 40 mg, Oral, QAM AC polyethylene glycol, 17 g, Oral, Daily PRN senna, 8.6 mg, Oral, BID PRN sodium chloride 0.9%, , Intravenous, Continuous tiotropium, 2 puff, Inhalation, RT Daily traZODone, 100 mg, Oral, Nightly Continuous Infusions . PRN Medications Current Facilty-Administered PRN Medications Ordered in Epic Medication Dose Route Frequency Provider Last Rate Last Dose acetaminophen (TYLENOL) tablet 650 mg 650 mg Oral Q6H PRN María Elena Blas MD 650 mg at 11/26/19 2134 albuterol 90 mcg/puff inhaler 2 puff 2 puff Inhalation Q4H PRN Charlene Rao DO albuterol 90 mcg/puff inhaler 2 puff 2 puff Inhalation RT Q4H PRN María Elena Blas MD dextrose 50% injection 12.5-25 g 12.5-25 g Intravenous PRN María Elena Blas MD And dextrose 10% (D10W) infusion Intravenous Continuous PRN María Elena Blas MD docusate sodium (COLACE) capsule 100 mg 100 mg Oral BID PRN María Elena Blas MD HYDROmorphone (DILAUDID) injection 0.5-1 mg 0.5-1 mg Intravenous Q3H PRN Tish Rodney DO 1 mg at 11/26/19 1419 melatonin tablet 3 mg 3 mg Oral Nightly PRN María Elena Blas MD 3 mg at 11/23/19 1957 ondansetron (ZOFRAN) injection 4 mg 4 mg Intravenous Q6H PRN María Elena Blas MD 4 mg at 11/26/19 2208 oxyCODONE (ROXICODONE) tablet 5-15 mg 5-15 mg Oral Q4H PRN Fredrick Rubin MD 15 mg at 11/26/19 1713 polyethylene glycol (MIRALAX) powder 17 g 17 g Oral Daily PRN María Elena Blas MD senna (SENOKOT) tablet 8.6 mg 8.6 mg Oral BID PRN María Elena Blas MD Allergy: Allergies Allergen Reactions Penicillins Shortness Of Breath Shellfish-Derived Products Shortness Of Breath Iodinated Diagnostic Agents Other (See Comments) OBJECTIVE Vital Signs: Vitals: 11/27/19 0816 BP: 95/54 Pulse: 83 Resp: 20 Temp: 36.8 C (98.2 F) Intake/Output Summary (Last 24 hours) at 11/27/2019 0822 Last data filed at 11/27/2019 0600 Gross per 24 hour Intake 142 ml Output 1581 ml Net -1439 ml Examination: Constitutional: Patient is alert and oriented x 3. Appears weak but not in acute distress. HEENT: Head: Normocephalic and Atraumatic. Nose: Nose normal. Mouth/Throat: Oropharynx is clear and moist. Eyes: No conjunctiva injection. EOM Intact. PERRLA. No scleral icterus. Neck: Neck supple. No JVD present. No tracheal deviation present. No thyromegaly Cardiovascular: Regular rate and rhythm, + Murmur, no friction rub. Pulmonary/Chest: + Rales and crackles at right mid and lower zones, mostly clear on the le ft and no wheezes or rhonchi's. Abdominal: Soft, BS present, no distension, no ascites. No rebound tenderness and no guardi ng. Musculoskeletal: Moves all limbs, No difficulty in walking and no joint tenderness. + Mild Bipedal edema. Neurological: No Focal neurologic deficits, No CN deficits. Skin: Skin is warm and dry. No ecchymoses, or abrasions. Psychiatric: No Confusion, No agitation, Reactive affect and Judgement is stable. LABS: Recent Results (from the past 24 hour(s)) POC Glucose Result Value Ref Range Glucose, POC 162 (H) 65 - 99 mg/dL POC Glucose Result Value Ref Range Glucose, POC 173 (H) 65 - 99 mg/dL POC Glucose Result Value Ref Range Glucose, POC 196 (H) 65 - 99 mg/dL Lactic Acid Result Value Ref Range Lactate, Serum 1.3 0.4 - 2.0 mmol/L POC Glucose Result Value Ref Range Glucose, POC 191 (H) 65 - 99 mg/dL CBC with Differential Result Value Ref Range WBC 12.64 (H) 3.80 - 11.00 K/uL RBC 3.40 (L) 3.70 - 5.10 M/uL Hemoglobin 9.0 (L) 11.3 - 15.5 g/dL Hematocrit 29.4 (L) 34.0 - 46.0 % MCV 86.5 80.0 - 100.0 fl MCH 26.5 (L) 27.0 - 34.0 pg MCHC 30.6 (L) 32.0 - 35.5 g/dL RDW-SD 73.0 (H) 37 - 53 fl Platelet Count 477 (H) 150 - 400 K/uL MPV 10.9 fl Diff Type AUTOMATED % nRBC 0.0 0 /100WBC % Neutrophils 74.30 % IMMATURE GRANULOCYTE 1.90 % % Lymphocytes 11.90 % Monocyte % 11.10 % Eosinophils % 2.20 % Basophils % 0.50 % Neutrophils, Absolute 9.15 (H) 1.90 - 7.40 K/uL IMMATURE GRANS AB 0.24 (H) 0.00 - 0.07 K/uL Absolute Lymphocytes 1.51 1.00 - 3.90 K/uL Absolute Monocytes 1.40 (H) 0.00 - 0.80 K/uL Eosinophils, Absolute 0.28 0.00 - 0.50 K/uL Basophils, Absolute 0.06 0.00 - 0.10 K/uL RBC Morphology 2+ PROBLEM LIST Principal Problem: Sepsis Active Problems: Empyema of pleural space Right lower lobe pneumonia Anemia of chronic disease Essential hypertension, benign Type 2 diabetes mellitus with diabetic nephropathy, without long-term current use of insu rosy Cyanocobalamin deficiency Hypothyroidism Thrombocytosis COPD (chronic obstructive pulmonary disease) Weakness generalized ASSESSMENT & PLAN Sepsis: This was precipitated by pneumonia and right lung empyema, S/P Chest tube placement by IR services and cultures have remained negative for any growth so far. ID services on navjot ni and Dr. Arshad is managing IV Ceftaroline 600 mg BID. Will follow CBC and cultures. Empyema Right Lung with RLL Pneumonia: She was recently diagnosed with Pneumonia and admit brandyn at [facility] requiring IV antibiotics. She improved but then deve loped worsening shortness of breath and subsequent CXR revealed effusion with possible empye ma. CT surgery services consulted and they did not think patient was a good surgical forest te due to multiple comorbidities and morbid obesity. IR team then placed a CT-guided right s ided pigtail chest tube without complications. She had minimal out put and required tPA and Dornase instillation for mucus which she completed. Repeat CXR shows slight improvement in i nflation of the right lung but there is persistent mild streaky parenchymal density right paolo ng base without pneumothorax. IR team is managing chest tube and Dr. Arshad recommended IV Ceftaroline BID till December 08, 2019 for now. A PICC line is placed and once cleared from IR services then she will need rehab preferably at [facility] for IV antibiotics. Pain medications adjusted today to reduce likelihood of hypoxia. Anemia of Chronic Disease with Vitamin B 12 Deficiency: H&H was stable at 9.4 without sing s of active bleeding, will continue Vitamin B 12, Folic Acid and oral Iron supplements and m onitor CBC. Diabetes Mellitus Type 2 with Neuropathy: Blood sugars are stable with mild variations, araceli l continue Glimepiride 2 mg daily & monitor blood sugars AC/HS. If blood sugars are elevated then consider increasing dose to 4 mg daily. Thrombocytosis: Likely reactive and precipitated by infection, will monitor CBC, continue l ow dose ASA 81 mg daily and monitor. Hypothyroidism: Chronic but stable, continue Levothyroxine 175 mcg daily and no changes rec ommended at this time. Chronic Obstructive Pulmonary Disease: Stable and without any signs of acute exacerbation. Will continue Symbicort and Spiriva inhalers as scheduled and no changes recommended at this time. Hypertension: BP is stable at present, continue Lisinopril and Metoprolol as scheduled and monitor hemodynamics. No changes recommended at this time Generalized Weakness / Debility: Multifactorial, secondary to pneumonia, empyema and decon ditioning. PT services involved to improve strengths and mobility. DVT prophylaxis with SCD's and Lovenox. Discharge plans in another 1 to 2 days to [facility] in [facility] or when st able and cleared by ID and IR services. Fredrick Rubin MD 11/27/2019 roctor, Nelli Navas [facility] - 11/26/2019 1:18 PM PDTRenal Dosing Monitoring: Serum creatinine: 1.4 mg/dL (H) 11/26/19 0706 Estimated creatinine clearance: 72 mL/min (A) (using adjusted body weight) - note BMI of 63 kg/m2 Ceftaroline does not need to be adjusted unless CrCl<50 mL/min Patient w/ EVA baseline Scr 1.0 mg/dL. UOP further decreased to 0.2 mL/kg/hr *If renal function does not improve consider holding MARTÍN-I in the setting of EVA Plan per protocol: No medications need adjustment at this time. Pharmacy will continue to monitor changes in medication orders and renal function and will adjust accordingly. 11/26/2019 1:14 PM Pharmacist: Mercedes Roberts [facility] Fredrick Killian MD - 11/26/2019 8:29 AM PDTFormatting of this note might be different from the orig inal. Service: Hospitalist Daily Progress Note Phoenix Dangelo 54 y.o. : 1965 SEX: female PCP: Remi Talley MD Hospital Day: LOS: 5 SUBJECTIVE Patient Summary: Patient is a 54 year old female with past medical history of HTN, HLD, DM Type 2, COPD and Chronic Pain who was first admitted at [facility] on 11/11/19 due to dyspnea an d fevers. Her labs showed leukocytosis of [address] showed RLL pneumonia without effusion. C OVID testing was negative, she was treated with IV Rocephin and Zithromax for sepsis precipi tated by community-acquired pneumonia. She made progress but had persistent leukocytosis and IV Vancomycin was added. Sputum cultures came positive for MRSA and she showed good sings o f progress and improvement on antibiotics. She was eventually discharged on 11/17/19 on oral Doxycycline, however she returned several hours later the same day with chest pain. CXR th ere showed right-sided pleural effusion and labs again showed leukocytosis of 22.She was k ept on Doxycycline but due to recurrent shortness of breath and dry cough CT Chest was done on 11/21/2019 which showed right sided large pleural effusion extending along the medial pauline e of the lung measuring 3 cm in thickness and few air bubbles features suggestive of empyema . She was then transferred to [facility] for CT Surgery evaluation. She was seen Dr. Walden who did not think patient was a good surgical candidate due to multiple comorbidities and morbi d obesity. Her recommended IR consultation and a CT-guided right sided chest tube placement which was placed without any complications. She was initially kept on IV Levaquin and Vancom ycin by Dr. Arshad but subsequent labs showed worsening creatinine possibly due to vancomy scott use. She was then transition to IV Ceftaroline 600 mg BID and cultures remain negative for any growth. She had limited output from the chest tube pigtail catheter and TPA/dornase treatment was started. Events Overnight: Patient seen and examined. Overnight events noted. Patient was seen awake and alert. She re ported right-sided chest pain symptoms which worsens with movement. As per staff, she has b een asking for IV pain medications are frequently, patient denied any worsening OF breath bu t still has mild cough without phlegm. Denied episodes of fever, chills, headaches, nausea, vomiting, abdominal pain, diarrhea or constipation and appetite is fair. She feels tired a nd fatigued with difficulty in walking. Remained afebrile. Scheduled Medications acetaminophen, 650 mg, Oral, Q6H PRN albuterol, 2 puff, Inhalation, Q4H PRN albuterol, 2 puff, Inhalation, RT Q4H PRN alteplase (ACTIVASE) syringe (NOT for IV use), 10 mg, Intrapleural, Q12H ascorbic acid, 500 mg, Oral, Daily aspirin, 81 mg, Oral, Daily atorvaSTATin, 10 mg, Oral, Nightly budesonide-formoterol, 2 puff, Inhalation, RT BID capsaicin, , Topical, 4x Daily cefTARoline, 600 mg, Intravenous, Q12H dextrose, 12.5-25 g, Intravenous, PRN And dextrose 10%, , Intravenous, Continuous PRN diclofenac, 2 g, Topical, 4x Daily docusate sodium, 100 mg, Oral, BID PRN dornase bridger (PULMOZYME) syringe (intrapleural use), 5 mg, Intrapleural, Q12H DULoxetine, 60 mg, Oral, Daily gabapentin, 300 mg, Oral, TID glimepiride, 2 mg, Oral, Daily with breakfast heparin, 5,000 Units, Subcutaneous, 3 times per day HYDROmorphone, 0.5-1 mg, Intravenous, Q3H PRN insulin lispro, 0-6 Units, Subcutaneous, 4x Daily WC and HS levothyroxine, 175 mcg, Oral, QAM AC lisinopril, 5 mg, Oral, Daily melatonin, 3 mg, Oral, Nightly PRN metoprolol tartrate, 50 mg, Oral, BID montelukast, 10 mg, Oral, Nightly nystatin, , Topical, BID ondansetron, 4 mg, Intravenous, Q6H PRN oxyCODONE, 5-10 mg, Oral, Q4H PRN pantoprazole, 40 mg, Oral, QAM AC polyethylene glycol, 17 g, Oral, Daily PRN senna, 8.6 mg, Oral, BID PRN sodium chloride 0.9%, , Intravenous, Continuous tiotropium, 2 puff, Inhalation, RT Daily traZODone, 100 mg, Oral, Nightly Continuous Infusions . PRN Medications Current Facilty-Administered PRN Medications Ordered in Epic Medication Dose Route Frequency Provider Last Rate Last Dose acetaminophen (TYLENOL) tablet 650 mg 650 mg Oral Q6H PRN María Elena Blas MD 650 mg at 11/22/192038 albuterol 90 mcg/puff inhaler 2 puff 2 puff Inhalation Q4H PRN Charlene Rao DO albuterol 90 mcg/puff inhaler 2 puff 2 puff Inhalation RT Q4H PRN María Elena Blas MD dextrose 50% injection 12.5-25 g 12.5-25 g Intravenous PRN María Elena Blas MD And dextrose 10% (D10W) infusion Intravenous Continuous PRN María Elena Blas MD docusate sodium (COLACE) capsule 100 mg 100 mg Oral BID PRN María Elena Blas MD HYDROmorphone (DILAUDID) injection 0.5-1 mg 0.5-1 mg Intravenous Q3H PRN Tish Rodney DO 1 mg at 11/26/19 0446 melatonin tablet 3 mg 3 mg Oral Nightly PRN María Elena Blas MD 3 mg at 11/23/19 1957 ondansetron (ZOFRAN) injection 4 mg 4 mg Intravenous Q6H PRN María Elena Blas MD 4 mg at 11/23/19 0822 oxyCODONE (ROXICODONE) tablet 5-10 mg 5-10 mg Oral Q4H PRN Fredrick Rubin MD 10 mg at 11/26/19 0350 polyethylene glycol (MIRALAX) powder 17 g 17 g Oral Daily PRN María Elena Blas MD senna (SENOKOT) tablet 8.6 mg 8.6 mg Oral BID PRN María Elena Blas MD Allergy: Allergies Allergen Reactions Penicillins Shortness Of Breath Shellfish-Derived Products Shortness Of Breath Iodinated Diagnostic Agents Other (See Comments) OBJECTIVE Vital Signs: Vitals: 11/26/19 0730 BP: 103/52 Pulse: 79 Resp: 24 Temp: 36.9 C (98.5 F) Intake/Output Summary (Last 24 hours) at 11/26/2019 0829 Last data filed at 11/26/2019 0600 Gross per 24 hour Intake 1790 ml Output 1340 ml Net 450 ml Examination: Constitutional: Patient is alert and oriented x 3. Appears weak but not in acute distress. HEENT: Head: Normocephalic and Atraumatic. Nose: Nose normal. Mouth/Throat: Oropharynx is clear and moist. Eyes: No conjunctiva injection. EOM Intact. PERRLA. No scleral icterus. Neck: Neck supple. No JVD present. No tracheal deviation present. No thyromegaly Cardiovascular: Regular rate and rhythm, + Murmur, no friction rub. Pulmonary/Chest: + Rales and crackles at right mid and lower zones, mostly clear on the le ft and no wheezes or rhonchi's. Abdominal: Soft, BS present, no distension, no ascites. No rebound tenderness and no guardi ng. Musculoskeletal: Moves all limbs, No difficulty in walking and no joint tenderness. + Mild Bipedal edema. Neurological: No Focal neurologic deficits, No CN deficits. Skin: Skin is warm and dry. No ecchymoses, or abrasions. Psychiatric: No Confusion, No agitation, Reactive affect and Judgement is stable. LABS: Recent Results (from the past 24 hour(s)) POC Glucose Result Value Ref Range Glucose, POC 180 (H) 65 - 99 mg/dL POC Glucose Result Value Ref Range Glucose, POC 190 (H) 65 - 99 mg/dL POC Glucose Result Value Ref Range Glucose, POC 177 (H) 65 - 99 mg/dL POC Glucose Result Value Ref Range Glucose, POC 199 (H) 65 - 99 mg/dL POC Glucose Result Value Ref Range Glucose, POC 202 (H) 65 - 99 mg/dL Basic Metabolic Panel Result Value Ref Range Na 139 135 - 145 mmol/L K 4.5 3.5 - 4.9 mmol/L Cl 109 99 - 109 mmol/L CO2 23 23 - 32 mmol/L Anion Gap 12 5 - 20 mmol/L Glucose 203 (H) 65 - 99 mg/dL BUN 16 8 - 25 mg/dL Creatinine 1.40 (H) 0.50 - 1.00 mg/dL BUN/Creatinine Ratio 11 Calcium 8.9 8.5 - 10.5 mg/dL Estimated GFR 39 (L) >60 mL/min/1.73m2 CBC with Differential Result Value Ref Range WBC 13.09 (H) 3.80 - 11.00 K/uL RBC 3.61 (L) 3.70 - 5.10 M/uL Hemoglobin 9.4 (L) 11.3 - 15.5 g/dL Hematocrit 31.3 (L) 34.0 - 46.0 % MCV 86.7 80.0 - 100.0 fl MCH 26.0 (L) 27.0 - 34.0 pg MCHC 30.0 (L) 32.0 - 35.5 g/dL RDW-SD 75.6 (H) 37 - 53 fl Platelet Count 379 150 - 400 K/uL MPV 10.9 fl Diff Type AUTOMATED % nRBC 0.0 0 /100WBC % Neutrophils 75.20 % IMMATURE GRANULOCYTE 2.40 % % Lymphocytes 10.70 % Monocyte % 9.30 % Eosinophils % 1.90 % Basophils % 0.50 % Neutrophils, Absolute 9.84 (H) 1.90 - 7.40 K/uL IMMATURE GRANS AB 0.31 (H) 0.00 - 0.07 K/uL Absolute Lymphocytes 1.40 1.00 - 3.90 K/uL Absolute Monocytes 1.22 (H) 0.00 - 0.80 K/uL Eosinophils, Absolute 0.25 0.00 - 0.50 K/uL Basophils, Absolute 0.07 0.00 - 0.10 K/uL RBC Morphology 3+ PROBLEM LIST Principal Problem: Sepsis Active Problems: Empyema of pleural space Right lower lobe pneumonia Anemia of chronic disease Essential hypertension, benign Type 2 diabetes mellitus with diabetic nephropathy, without long-term current use of insu rosy Cyanocobalamin deficiency Hypothyroidism Thrombocytosis COPD (chronic obstructive pulmonary disease) Weakness generalized ASSESSMENT & PLAN Sepsis: This was precipitated by pneumonia and right lung empyema, S/P Chest tube placement by IR services and cultures have remained negative for any growth so far. Dr. Arshad is f dorothy and changed antibiotics to IV Ceftaroline 600 mg BID due to renal insufficiency wit h use of Vancomycin and follow CBC and culture results. Empyema Right Lung with RLL Pneumonia: She was recently diagnosed with Pneumonia and admit brandyn at [facility] requiring IV antibiotics. She improved but then deve loped worsening shortness of breath and subsequent CXR revealed effusion with possible empye ma. CT surgery services consulted and they did not think patient was a good surgical forest te due to multiple comorbidities and morbid obesity. IR team then placed a CT-guided right s ided chest tube without complications but due to minimal out put she required tPA and Dornas e for mucus. Repeat CXR showed stable positioning of right-sided pigtail catheter but amount of right-sided pleural fluid was unchanged. 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 Anemia of Chronic Disease with Vitamin B 12 Deficiency: H&H was stable at 9.4 without sing s of active bleeding, will continue Vitamin B 12, Folic Acid and oral Iron supplements and m onitor CBC. Diabetes Mellitus Type 2 with Neuropathy: Blood sugars are stable with mild variations, araceli l continue Glimepiride 2 mg daily & monitor blood sugars AC/HS. If blood sugars are elevated then consider increasing dose to 4 mg daily. Thrombocytosis: Likely reactive and precipitated by infection, will monitor CBC, continue l ow dose ASA 81 mg daily and monitor. Hypothyroidism: Chronic but stable, continue Levothyroxine 175 mcg daily and no changes rec ommended at this time. Chronic Obstructive Pulmonary Disease: Stable and without any signs of acute exacerbation. Will continue Symbicort and Spiriva inhalers as scheduled and no changes recommended at thi s time. Hypertension: BP is stable at present, continue Lisinopril and Metoprolol as scheduled and monitor hemodynamics. No changes recommended at this time Generalized Weakness / Debility: Multifactorial, secondary to pneumonia, empyema and decon ditioning. PT services involved to improve strengths and mobility. DVT prophylaxis with SCD's and Lovenox. Discharge plans in another 2 to 3 days to [facility] in [facility] or when st able and improved and cleared by ID and IR services. Fredrick Rubin MD 11/26/2019 avithra, Abi hannah MD - 11/25/2019 2:11 PM PDTFormatting of this note might be different from the State mental [facility] facility Service: Infectious Disease Progress Note Hospital Day: LOS: 4 days Post-Op Day: * No surgery found * SUBJECTIVE Patient Summary: Re: MRSA pneumonia, loculated pleural effusion History of UTI vs bacteriuria History PCN allergy For details of patient's history, please refer to ID consult note on 11/21 On 11/22, s/p R chest tube placement under IR On 11/23, TPA. EVA - IV vanco/levofloxacin transitioned to ceftaroline Events Overnight: Patient is afebrile. There is now drainage from the chest tube. Sh rodney complains of pain described as tightness at the area of the chest tube; she gets relief fr om current pain medications. Cough is better. She denies dyspnea. There is no sputum production. She denies upper res piratory symptoms. No pruritus, new skin rash No abdominal pain, nausea, vomiting, diarrhea, sensation of vaginal candidiasis Scheduled Medications alteplase (ACTIVASE) syringe (NOT for IV use) 10 mg Intrapleural Q12H ascorbic acid 500 mg Oral Daily aspirin 81 mg Oral Daily atorvaSTATin 10 mg Oral Nightly budesonide-formoterol 2 puff Inhalation RT BID capsaicin Topical 4x Daily cefTARoline 600 mg Intravenous Q12H diclofenac 2 g Topical 4x Daily dornase bridger (PULMOZYME) syringe (intrapleural use) 5 mg Intrapleural Q12H DULoxetine 60 mg Oral Daily gabapentin 300 mg Oral TID glimepiride 2 mg Oral Daily with breakfast heparin 5,000 Units Subcutaneous 3 times per day insulin lispro 0-6 Units Subcutaneous 4x Daily WC and HS levothyroxine 175 mcg Oral QAM AC lisinopril 5 mg Oral Daily metoprolol tartrate 50 mg Oral BID montelukast 10 mg Oral Nightly nystatin Topical BID pantoprazole 40 mg Oral QAM AC tiotropium 2 puff Inhalation RT Daily traZODone 100 mg Oral Nightly Continuous Infusions dextrose 10% sodium chloride 0.9% 100 mL/hr at 11/24/19 2204 PRN Medications acetaminophen, albuterol, albuterol, Hypoglycemia Management AND POCT Glucose AND d extrose AND dextrose 10%, docusate sodium, HYDROmorphone, melatonin, ondansetron, oxyCOD ONE, polyethylene glycol, senna OBJECTIVE Vital Signs: Vitals: 11/25/19 1131 BP: 100/51 Pulse: 76 Resp: 18 Temp: 36.9 C (98.5 F) Physical Exam Vital signs have been reviewed General: Pleasant female, not in acute physical distress. Speaks in complete sentences. HEENT: Normocephalic. Anicteric sclera. Conjunctival pallor is noted. EOM intact. No na juhi mucosal lesions. No sinus tenderness. No tragal tenderness. Moist oral mucosa with no oral thrush or ulcers. Supple neck with no cervical lymphadenopathy Lungs: Right chest tube in place. Decreased breath sounds at the right lower lung field. N o wheezes or rhonchi Cardiovascular: Normal rate. Regular rhythm. No murmur or rubs Abdomen: No distention. Soft. No tenderness, rebound or guarding Skin: No rash. Peripheral IV site with no signs of inflammation Ecchymotic lesions at upper extremities -improving Musculoskeletal: No inflamed-looking joints Neurologic: Oriented x3. Motor strength intact upper and lower extremities Psychiatric: Appropriate mood and affect DATA Recent Results (from the past 24 hour(s)) POC Glucose Collection Time: 11/24/19 5:09 PM Result Value Ref Range Glucose, POC 121 (H) 65 - 99 mg/dL POC Glucose Collection Time: 11/24/19 9:30 PM Result Value Ref Range Glucose, POC 155 (H) 65 - 99 mg/dL CBC with Differential Collection Time: 11/25/19 5:13 AM Result Value Ref Range WBC 10.88 3.80 - 11.00 K/uL RBC 3.51 (L) 3.70 - 5.10 M/uL Hemoglobin 9.1 (L) 11.3 - 15.5 g/dL Hematocrit 30.7 (L) 34.0 - 46.0 % MCV 87.5 80.0 - 100.0 fl MCH 25.9 (L) 27.0 - 34.0 pg MCHC 29.6 (L) 32.0 - 35.5 g/dL RDW-SD 77.6 (H) 37 - 53 fl Platelet Count 554 (H) 150 - 400 K/uL MPV 10.7 fl Diff Type AUTOMATED % nRBC 0.0 0 /100WBC % Neutrophils 70.70 % IMMATURE GRANULOCYTE 3.80 % % Lymphocytes 18.40 % Monocyte % 7.80 % Eosinophils % 2.50 % Basophils % 0.60 % Neutrophils, Absolute 7.29 1.90 - 7.40 K/uL IMMATURE GRANS AB 0.41 (H) 0.00 - 0.07 K/uL Absolute Lymphocytes 2.00 1.00 - 3.90 K/uL Absolute Monocytes 0.85 (H) 0.00 - 0.80 K/uL Eosinophils, Absolute 0.27 0.00 - 0.50 K/uL Basophils, Absolute 0.06 0.00 - 0.10 K/uL Platelet Estimate INCREASED RBC Morphology 1+ Basic Metabolic Panel Collection Time: 11/25/19 5:13 AM Result Value Ref Range Na 142 135 - 145 mmol/L K 4.8 3.5 - 4.9 mmol/L Cl 110 (H) 99 - 109 mmol/L CO2 26 23 - 32 mmol/L Anion Gap 11 5 - 20 mmol/L Glucose 140 (H) 65 - 99 mg/dL BUN 15 8 - 25 mg/dL Creatinine 1.40 (H) 0.50 - 1.00 mg/dL BUN/Creatinine Ratio 11 Calcium 8.6 8.5 - 10.5 mg/dL Estimated GFR 39 (L) >60 mL/min/1.73m2 POC Glucose Collection Time: 11/25/19 7:50 AM Result Value Ref Range Glucose, POC 128 (H) 65 - 99 mg/dL POC Glucose Collection Time: 11/25/19 8:53 AM Result Value Ref Range Glucose, POC 180 (H) 65 - 99 mg/dL POC Glucose Collection Time: 11/25/19 12:18 PM Result Value Ref Range Glucose, POC 190 (H) 65 - 99 mg/dL Microbiology data: 11/22 right pleural fluid Gram stain with no cells or organisms; culture with no growth toda y CYTOLOGIC INTERPRETATION: Pleural effusion: Negative for malignant cells. Radiology data: Chest x-ray Stable positioning of right-sided pigtail catheter. The amount of right-sided pleural fluid is unchanged. Signed by: Hugh Mancini Richard Sign Date/Time: 11/24/2019 7:54 AM Chest x-ray Impression: 1. Mild interstitial edema with small right-sided pleural effusion. 2. Mild bibasilar subsegmental atelectasis. Signed by: Elsa Monterroso Chet Sign Date/Time: 11/23/2019 1:19 PM PROBLEM LIST Principal Problem: Sepsis Active Problems: Anemia of chronic disease Essential hypertension, benign Type 2 diabetes mellitus with diabetic nephropathy, without long-term current use of insu rosy Cyanocobalamin deficiency Hypothyroidism Empyema of pleural space Right lower lobe pneumonia Thrombocytosis COPD (chronic obstructive pulmonary disease) Weakness generalized ASSESSMENT & PLAN Loculated right pleural effusion/empyema in a patient with known MRSA pneumonia -Patient has not been septic -Prior sputum culture grew MRSA with blood culture showing no growth -COVID-19 testing on 11/10 had been negative -Patient is currently hemodynamically stable; oxygen saturation stable in room air. Leuko cytosis has now resolved (peak of 17k on admission) -EVA: Patient's creatinine improving with current GFR 72. She had supratherapeutic vancom ycin levels -Antibiotic therapy: Patient had been on IV vancomycin and levofloxacin from 11/20- Linezolid considered but not prescribed because of risk for serotonin release syndrome/d rug interaction. Rx: Ceftaroline. Discussed with patient about PICC placement and IV antibiotics on dis charge (until December 07, with ultimate duration of antibiotics depending on clinical and radio logic progress). She agrees with this plan. -CT surgery consulted. Chest tube placed on, 11/22 by Interventional Radiology. Improved drainage with TPA; CXR on Wednesday -Chest CT scan also showed spiculated nodules; follow-up chest CT scan has been recommende d in 6 months History of bacteriuria, ? UTI -Patient currently has no symptoms of urinary tract infection Thrombocytosis -Most likely reactive; monitor Type 2 diabetes mellitus -Specifics of management per hospitalist service Nausea -Improved; anti-emetics prn Anemia -Attributed to chronic disease, vitamin B12 deficiency -Specifics of therapy per hospitalist service Code Status: Full Code Alana Arshad MD 11/25/2019 Sanaz Gresham MD - 11/25/2019 6:41 AM PDTFormatting of this note might be different from the o riginal. Patient: Phoenix Dangelo Hospital Day: 4 EVENTS OVERNIGHT: NONE SUBJECTIVE: Feels fine this morning. Having some pain around the chest tube site. No n/v. Breathing ok, still some discomfort over her R side. OBJECTIVE Vital Signs: Temp: [36.5 C (97.7 F)-36.9 C (98.5 F)] 36.9 C (98.5 F) Pulse: [73-83] 73 Resp: [17-20] 18 BP: (99-145)/(57-78) 121/78 Physical Exam Constitutional: Sleeping, but awoken easily to voice. No distress. HENT: Nose: Nose normal. Eyes: No scleral icterus. Cardiovascular: Normal rate. Pulmonary/Chest: Effort normal. No stridor. Abdominal: Soft. Musculoskeletal: Normal range of motion. Neurological: She is alert. Skin: Skin is warm. Psychiatric: She has a normal mood and affect. Nursing note and vitals reviewed. DATA Recent Labs Lab 11/24/[id number] WBC 11.89* 17.08* -- HGB 8.8* 9.4* -- HCT 29.0* 30.6* -- PLT 556* 570* -- NA 142 139 138 K 4.5 4.1 4.0 CL 108 103 101 CO2 27 30 30 ANIONGAP 12 10 11 BUN 16 16 17 CREA 1.50* 1.10* 1.07* GLU 151* 55* 98 CALCIUM 8.7 9.0 8.8 TP -- 5.6* -- ALBUMIN -- 3.0* -- MG -- 1.3* -- BILI -- 0.3 -- AST -- 25 -- ALT -- 26 -- ALKPHOS -- 104 -- INR -- 1.2 -- Xr Chest Ap Portable Result Date: 11/24/2019 Stable positioning of right-sided pigtail catheter. The amount of right-sided pleural flui d is unchanged. Signed by: Hugh Mancini Richard Sign Date/Time: 11/24/2019 7:54 AM PROBLEM LIST Principal Problem: Sepsis Active Problems: Anemia of chronic disease Essential hypertension, benign Type 2 diabetes mellitus with diabetic nephropathy, without long-term current use of insu rosy Cyanocobalamin deficiency Hypothyroidism Empyema of pleural space Right lower lobe pneumonia Thrombocytosis COPD (chronic obstructive pulmonary disease) Weakness generalized IMPRESSION/PLAN: 1. Sepsis due to R pneumonia with empyema. Underwent CT placement by IR services. Cultu res negative to date. Currently on IV ceftaroline. Due to minimal output of CT, IR initiat ed tPA protocol last night. 2. Anemia of chronic disease with Vit B12 deficiency- on B12 and folic acid and iron suppl ements. 3. DM2 with neuropathy- blood glucose with fairly good control. 121 to 162 yesterday. Co ntinue on current meds. 4. Thrombocytosis- on baby ASA. 5. Hypothyroidism- chronic. On Levothyroxine. 6. COPD- stable with exacerbation. Continue usual home inhalers. 7. HTN- stable vitals. DVT ppx with SCDs and Lovenox. Eventual plan to Swing bed at [facility] in [place]. ? Wednesday or Wednesday. Sanaz Vásquez MD 11/25/2019 Bev Baptiste PA - 11/24/2019 3:00 PM PDTFormatting of this note might be different from the orig inal. Interventional Radiology Progress Note Patient Name: Phoenix Dangelo Date of : 1965 Interval History/Subjective: Phoenix Dangelo is a 54 y.o. female with a right sided loculated pleural effusion s/p ches t tube placement yesterday. Patient reports feeling okay today, she was able to walk around her room with PT. WBC down to 11.89. Very minimal output from chest tube thus far. Sats > 90 % on RA. Labs: 3 Day Labs: Recent Labs Lab 11/24/19 0620 11/22/19 0518 11/21/19 193 WBC 11.89* 17.08* -- HGB 8.8* 9.4* -- HCT 29.0* 30.6* -- PLT 556* 570* -- NA 142 139 138 K 4.5 4.1 4.0 CL 108 103 101 CO2 27 30 30 BUN 16 16 17 CALCIUM 8.7 9.0 8.8 MG -- 1.3* -- ALKPHOS -- 104 -- ALBUMIN -- 3.0* -- INR -- 1.2 -- Pertinent Imaging/Procedures: Xr Chest Ap Portable Result Date: 11/24/2019 CHEST PORTABLE ONE VIEW CLINICAL INFORMATION: Pleural effusion. COMPARISON: XR CHEST AP POR TABLE (11/23/2019); CT GUIDED CHEST TUBE PLACEMENT (11/23/2019); CT CHEST WITHOUT CONTRAST (); FINDINGS: Cardiac silhouette is stable in size. No mediastinal widening or shift. There continues to be some blunting of the right lateral costophrenic angle from some pleu ral fluid. Positioning of the right pigtail catheter is stable. There is no pneumothorax. The pulmonary markings are normal in caliber. Perihilar opacities are greater on the right side than left, unchanged. Stable positioning of right-sided pigtail catheter. The amount of right-sided pleural flui d is unchanged. Signed by: Hugh Mancini Richard Sign Date/Time: 11/24/2019 7:54 AM Xr Chest Ap Portable Result Date: 11/23/2019 CHEST PORTABLE ONE VIEW CLINICAL INFORMATION: Confirm chest tube placement COMPARISON: CT G UIDED CHEST TUBE PLACEMENT (11/23/2019); CT CHEST WITHOUT CONTRAST (11/21/2019); CT CHEST LOW DOSE WITHOUT CONTRAST (11/11/2019); FINDINGS: The heart is enlarged but stable in size. Righ t-sided pigtail pleural drainage catheter that appears in appropriate position. Pulmonary v ascular congestion with interstitial edema. No pneumothorax. Hazy right basilar opacity to likely resent small pleural effusion. Linear bibasilar opacities to likely resent subsegme ntal atelectasis. 1. Mild interstitial edema with small right-sided pleural effusion. 2. Mild bibasilar subse gmental atelectasis. Signed by: Elsa Monterroso Chet Sign Date/Time: 11/23/2019 1:[address] Guided Chest Tube Placement Result Date: 11/23/2019 CT GUIDED RIGHT CHEST TUBE CLINICAL INFORMATION: Empyema. PROCEDURE: Prior to the procedure , risks and benefits were explained to the patient and informed written and verbal consent o btained. Patient was placed on the CT gantry and initial localizing scans were performed. Us ing lidocaine for local anesthesia and intravenous sedation, the region is punctured under C T guidance. An 0.35 guide wire is placed into the right pleural space and the tract dilated. A catheter is then placed over the wire. Patient tolerated the procedure well. No immediate complications. Conscious sedation was administered. The nurse administered 1 mg Versed and 50 mcg fentanyl ns during the examination and monitored blood pressure, heart rate, and pul se oximeter. Physician intraservice time of 20 minutes. Estimated Blood Loss: Less than 50 c c's. At least one of the following CT dose optimization techniques were used: Automated expo sure control; Adjustment of mA and/or kV according to patient size; Use of iterative reconst ruction technique. Uncomplicated drainage of right pleural fluid collection. Sample of pleural fluid is obtai iraida and sent for laboratory analysis per the clinician's orders. A 12 Jamaican locking pigtail catheter is placed. Signed by: Hugh Leggett, Calderon Sign Date/Time: 11/23/2019 11:36 AM Physical Examination: Vitals: 11/24/19 1227 BP: 145/63 Pulse: 76 Resp: 19 Temp: 36.8 C (98.2 F) Physical Exam Constitutional: She is oriented to person, place, and time. No distress. HENT: Head: Normocephalic and atraumatic. Neck: Neck supple. Cardiovascular: Normal rate. Pulmonary/Chest: Effort normal. No respiratory distress. Chest tube C/D/I with minimal yellow output in atrium. Musculoskeletal: General: Tenderness (around chest tube) present. Neurological: She is alert and oriented to person, place, and time. Skin: Skin is warm and dry. She is not diaphoretic. Psychiatric: Mood and affect normal. Assessment and Plan: Loculated right pleural effusion s/p chest tube placement with minimal output. Orders place d to start tpa/dornase protocol. Patient will be transferred to the 9th floor for this, pend ing bed availability. Tpa/dornase protocol over the weekend, and repeat CXR Wednesday morning. IR will continue to follow. Bev Cartwright PA-C Vascular and Interventional Radiology Alana Corona MD - 11/24/2019 10:15 AM PDTFormatting of this note might be different from the or iginal. [facility] Service: Infectious Disease Progress Note Hospital Day: LOS: 3 days Post-Op Day: * No surgery found * SUBJECTIVE Patient Summary: Re: MRSA pneumonia, loculated pleural effusion History of UTI vs bacteriuria History PCN allergy For details of patient's history, please refer to ID consult note on 11/21 On 11/22, s/p R chest tube placement under IR Events Overnight: Patient has right-sided chest pain, related to the chest tube site, alleviated by current p ain medications. There is minimal output from the right chest tube. She states that her cough is improving; she has no phlegm production. She denies shortness of breath at rest. She has no upper respiratory symptoms. She has been afebrile with no chills or sweats. Nausea has improved. She has no vomiting, abdominal pain, diarrhea or constipation. She has no pruritus or new skin rash. Vancomycin trough is supratherapeutic. Creatinine went up to 1.5 from 1.1 yesterday Scheduled Medications ascorbic acid 500 mg Oral Daily aspirin 81 mg Oral Daily atorvaSTATin 10 mg Oral Nightly budesonide-formoterol 2 puff Inhalation RT BID capsaicin Topical 4x Daily cefTARoline 600 mg Intravenous Q12H diclofenac 2 g Topical 4x Daily DULoxetine 60 mg Oral Daily gabapentin 300 mg Oral TID glimepiride 2 mg Oral Daily with breakfast heparin 5,000 Units Subcutaneous 3 times per day insulin lispro 0-6 Units Subcutaneous 4x Daily WC and HS levothyroxine 175 mcg Oral QAM AC lisinopril 5 mg Oral Daily metoprolol tartrate 50 mg Oral BID montelukast 10 mg Oral Nightly nystatin Topical BID pantoprazole 40 mg Oral QAM AC tiotropium 2 puff Inhalation RT Daily traZODone 100 mg Oral Nightly Continuous Infusions dextrose 10% sodium chloride 0.9% 100 mL/hr at 11/24/19 0018 PRN Medications acetaminophen, albuterol, albuterol, Hypoglycemia Management AND POCT Glucose AND d extrose AND dextrose 10%, docusate sodium, HYDROmorphone, melatonin, ondansetron, oxyCOD ONE, polyethylene glycol, senna OBJECTIVE Vital Signs: Vitals: 11/24/19 0806 BP: 99/57 Pulse: 78 Resp: 17 Temp: 36.5 C (97.7 F) Physical Exam Vital signs have been reviewed General: Pleasant female, not in acute physical distress. He is in complete sentences. HEENT: Normocephalic. Anicteric sclera. Conjunctival pallor is noted. EOM intact. No na juhi mucosal lesions. No sinus tenderness. No tragal tenderness. Moist oral mucosa with no oral thrush or ulcers. Supple neck with no cervical lymphadenopathy No chest wall tenderness to palpation Lungs: Right chest tube in place. Decreased breath sounds at the right lower lung field. N o wheezes or rhonchi Cardiovascular: Normal rate. Regular rhythm. No murmur or rubs Abdomen: No distention. Soft. No tenderness, rebound or guarding Skin: No rash. Peripheral IV site with no signs of inflammation Ecchymotic lesions at upper extremities -improving Musculoskeletal: No inflamed-looking joints Neurologic: Oriented x3. Motor strength intact upper and lower extremities Psychiatric: Appropriate mood and affect DATA Recent Results (from the past 24 hour(s)) Culture, Body Fluid Sterile Collection Time: 11/23/19 10:55 AM Result Value Ref Range Gram Stain Result NO CELLS OR ORGANISMS SEEN Gram Stain Result Testing performed at [facility], [address] [place] [address] RESULT PENDING POC Glucose Collection Time: 11/23/19 11:29 AM Result Value Ref Range Glucose, POC 172 (H) 65 - 99 mg/dL POC Glucose Collection Time: 11/23/19 5:01 PM Result Value Ref Range Glucose, POC 195 (H) 65 - 99 mg/dL POC Glucose Collection Time: 11/23/19 8:39 PM Result Value Ref Range Glucose, POC 195 (H) 65 - 99 mg/dL Vancomycin, Trough Collection Time: 11/23/19 9:40 PM Result Value Ref Range Vancomycin, Trough 25.9 (HH) 10 - 20 ug/mL CBC with Differential Collection Time: 11/24/19 6:20 AM Result Value Ref Range WBC 11.89 (H) 3.80 - 11.00 K/uL RBC 3.36 (L) 3.70 - 5.10 M/uL Hemoglobin 8.8 (L) 11.3 - 15.5 g/dL Hematocrit 29.0 (L) 34.0 - 46.0 % MCV 86.3 80.0 - 100.0 fl MCH 26.2 (L) 27.0 - 34.0 pg MCHC 30.3 (L) 32.0 - 35.5 g/dL RDW-SD 76.8 (H) 37 - 53 fl Platelet Count 556 (H) 150 - 400 K/uL MPV 10.3 fl Diff Type MANUAL % Segmented Neutrophils 69 % % Metamyelocytes 2 % % Myelocytes 1 % % Lymphocytes 19 % % Monocytes 6 % Eosinophils % 3 % Neutrophils, Absolute 8.20 (H) 1.90 - 7.40 K/uL Absolute Metamyelocytes 0.24 (H) 0.00 K/uL Absolute Myelocytes 0.12 (H) 0.00 K/uL Absolute Lymphocytes 2.26 1.00 - 3.90 K/uL Absolute Monocytes 0.71 0.00 - 0.80 K/uL Eosinophils, Absolute 0.36 0.00 - 0.50 K/uL RBC Morphology 2+ Basic Metabolic Panel Collection Time: 11/24/19 6:20 AM Result Value Ref Range Na 142 135 - 145 mmol/L K 4.5 3.5 - 4.9 mmol/L Cl 108 99 - 109 mmol/L CO2 27 23 - 32 mmol/L Anion Gap 12 5 - 20 mmol/L Glucose 151 (H) 65 - 99 mg/dL BUN 16 8 - 25 mg/dL Creatinine 1.50 (H) 0.50 - 1.00 mg/dL BUN/Creatinine Ratio 11 Calcium 8.7 8.5 - 10.5 mg/dL Estimated GFR 36 (L) >60 mL/min/1.73m2 POC Glucose Collection Time: 11/24/19 8:09 AM Result Value Ref Range Glucose, POC 162 (H) 65 - 99 mg/dL Microbiology data: Right pleural fluid Gram Stain Result NO CELLS OR ORGANISMS SEEN P RESULT NO GROWTH AT THIS TIME P RESULT Testing performed at [facility], [address] [place] [id number] P Comment: Testing performed at [facility], [address] [place] [id number] Resulting Agency [facility] Specimen Collected: 11/23/19 10:55 Last Resulted: 11/24/19 13:52 CYTOLOGIC INTERPRETATION: Pleural effusion: Negative for malignant cells. Radiology data: Chest x-ray Stable positioning of right-sided pigtail catheter. The amount of right-sided pleural fluid is unchanged. Signed by: Hugh Mancini Richard Sign Date/Time: 11/24/2019 7:54 AM Chest x-ray Impression: 1. Mild interstitial edema with small right-sided pleural effusion. 2. Mild bibasilar subsegmental atelectasis. Signed by: Elsa Monterroso Chet Sign Date/Time: 11/23/2019 1:19 PM PROBLEM LIST Principal Problem: Sepsis Active Problems: Anemia of chronic disease Essential hypertension, benign Type 2 diabetes mellitus with diabetic nephropathy, without long-term current use of insu rosy Cyanocobalamin deficiency Hypothyroidism Empyema of pleural space Right lower lobe pneumonia Thrombocytosis COPD (chronic obstructive pulmonary disease) Weakness generalized ASSESSMENT & PLAN Loculated right pleural effusion/empyema in a patient with known MRSA pneumonia -Patient is currently not septic -Prior sputum culture grew MRSA with blood culture showing no growth -COVID-19 testing on 11/10 had been negative -Patient is currently hemodynamically stable; oxygen saturation stable in room air. Leuko cytosis is improving -EVA: Patient's creatinine had increased with calculated GFR today at 67. She had suprath erapeutic vancomycin levels yesterday. Will discontinue IV vancomycin and levofloxacin toda y. Linezolid considered but not prescribed because of risk for serotonin release syndrome/dr ramachandran interaction. Rx: Ceftaroline. Discussed with patient about PICC placement and IV antibiotics on disc harge -CT surgery has been consulted. Chest tube placed on, 11/22 by Interventional Radiology. There is minimal output from the right chest tube; IR recommends proceeding with TPA -Chest CT scan also showed spiculated nodules; follow-up chest CT scan has been recommende d in 6 months History of bacteriuria, ? UTI -Patient currently has no symptoms of urinary tract infection Thrombocytosis -Most likely reactive; monitor Type 2 diabetes mellitus -Specifics of management per hospitalist service Nausea -Improved; anti-emetics prn Anemia -Attributed to chronic disease, vitamin B12 deficiency -Specifics of therapy per hospitalist service Case had been discussed with Dr. Rubin and nursing staff Code Status: Full Code Alana Arshad MD 11/24/2019 Aniat Killian MD - 11/24/2019 7:33 AM PDTFormatting of this note might be different from e original. Service: Hospitalist Daily Progress Note Phoenix Kilpatrick Antolin 54 y.o. : 1965 SEX: female PCP: Remi Talley MD Hospital Day: LOS: 3 SUBJECTIVE Patient Summary: Patient is a 54 year old female with past medical history of HTN, HLD, DM Type 2, COPD and Chronic Pain who was first admitted at [facility] on 11/11/19 due to dyspnea an d fevers. Her labs showed leukocytosis of [address] showed RLL pneumonia without effusion. C OVID testing was negative, she was treated with IV Rocephin and Zithromax for sepsis precipi tated by community-acquired pneumonia. She made progress but had persistent leukocytosis and IV Vancomycin was added. Sputum cultures came positive for MRSA and she showed good sings o f progress and improvement on antibiotics. She was eventually discharged on 11/17/19 on oral Doxycycline, however she returned several hours later the same day with chest pain. CXR th showed right-sided pleural effusion and labs again showed leukocytosis of 22.She was k ept on Doxycycline but due to recurrent shortness of breath and dry cough CT Chest was done on 11/21/2019 which showed right sided large pleural effusion extending along the medial pauline e of the lung measuring 3 cm in thickness and few air bubbles features suggestive of empyema . She was then transferred to [facility] for CT Surgery evaluation. She was seen Dr. Walden who did not think patient was a good surgical candidate due to multiple comorbidities and morbi d obesity. Her recommended IR consultation and a CT-guided right sided chest tube placement which was eventually placed without any complications. She was kept on IV Levaquin and Vanco mycin by Dr. Arshad from ID services. Events Overnight: Patient seen and examined. Overnight events noted. Patient was seen awake and alert. She re ported pain at the right chest tube site area off and on which improves with pain medication s. No out put noted from the drain site, patient denied any fever, chills, headaches, nausea , vomiting, shortness of breath but has mild cough without phlegm. Feeling less energetic an d fatigued, remained confined to bed most of the time. No abdominal pain, diarrhea or consti pation at this time and appetite is fair. Remained afebrile. Scheduled Medications acetaminophen, 650 mg, Oral, Q6H PRN albuterol, 2 puff, Inhalation, Q4H PRN albuterol, 2 puff, Inhalation, RT Q4H PRN ascorbic acid, 500 mg, Oral, Daily aspirin, 81 mg, Oral, Daily atorvaSTATin, 10 mg, Oral, Nightly budesonide-formoterol, 2 puff, Inhalation, RT BID capsaicin, , Topical, 4x Daily dextrose, 12.5-25 g, Intravenous, PRN And dextrose 10%, , Intravenous, Continuous PRN diclofenac, 2 g, Topical, 4x Daily docusate sodium, 100 mg, Oral, BID PRN DULoxetine, 60 mg, Oral, Daily gabapentin, 300 mg, Oral, TID glimepiride, 2 mg, Oral, Daily with breakfast heparin, 5,000 Units, Subcutaneous, 3 times per day HYDROmorphone, 0.5-1 mg, Intravenous, Q4H PRN insulin lispro, 0-6 Units, Subcutaneous, 4x Daily WC and HS levoFLOXacin, 750 mg, Intravenous, Daily levothyroxine, 175 mcg, Oral, QAM AC lisinopril, 5 mg, Oral, Daily melatonin, 3 mg, Oral, Nightly PRN metoprolol tartrate, 50 mg, Oral, BID montelukast, 10 mg, Oral, Nightly nystatin, , Topical, BID ondansetron, 4 mg, Intravenous, Q6H PRN oxyCODONE, 5-10 mg, Oral, Q4H PRN pantoprazole, 40 mg, Oral, QAM AC polyethylene glycol, 17 g, Oral, Daily PRN senna, 8.6 mg, Oral, BID PRN sodium chloride 0.9%, , Intravenous, Continuous tiotropium, 2 puff, Inhalation, RT Daily traZODone, 100 mg, Oral, Nightly vancomycin per pharmacy, , Other, Pharmacy Consult Continuous Infusions . PRN Medications Current Facilty-Administered PRN Medications Ordered in [facility] Medication Dose Route Frequency Provider Last Rate Last Dose acetaminophen (TYLENOL) tablet 650 mg 650 mg Oral Q6H PRN María Elena Blas MD 650 mg at 11/22/192038 albuterol 90 mcg/puff inhaler 2 puff 2 puff Inhalation Q4H PRN Charlene Rao DO albuterol 90 mcg/puff inhaler 2 puff 2 puff Inhalation RT Q4H PRN María Elena Blas MD dextrose 50% injection 12.5-25 g 12.5-25 g Intravenous PRN María Elena Blas MD And dextrose 10% (D10W) infusion Intravenous Continuous PRN María Elena Blas MD docusate sodium (COLACE) capsule 100 mg 100 mg Oral BID PRN María Elena Blas MD HYDROmorphone (DILAUDID) injection 0.5-1 mg 0.5-1 mg Intravenous Q4H PRN Fredrick Rubin MD 1 mg at 11/24/19 0428 melatonin tablet 3 mg 3 mg Oral Nightly PRN María Elena Blas MD 3 mg at 11/23/19 195 ondansetron (ZOFRAN) injection 4 mg 4 mg Intravenous Q6H PRN María Elena Blas MD 4 mg at 11/23/19 0822 oxyCODONE (ROXICODONE) tablet 5-10 mg 5-10 mg Oral Q4H PRN Fredrick Rubin MD 10 mg at 11/24/19 0217 polyethylene glycol (MIRALAX) powder 17 g 17 g Oral Daily PRN María Elena Blas MD senna (SENOKOT) tablet 8.6 mg 8.6 mg Oral BID PRN María Elena Blas MD Allergy: Allergies Allergen Reactions Penicillins Shortness Of Breath Shellfish-Derived Products Shortness Of Breath Iodinated Diagnostic Agents Other (See Comments) OBJECTIVE Vital Signs: Vitals: 11/24/19 0414 BP: 123/64 Pulse: 80 Resp: 16 Temp: 36.8 C (98.2 F) Intake/Output Summary (Last 24 hours) at 11/24/2019 0733 Last data filed at 11/24/2019 0644 Gross per 24 hour Intake 2810 ml Output 650 ml Net 2160 ml Examination: Constitutional: Patient is alert and oriented x 3. Appears weak but not in acute distress. HEENT: Head: Normocephalic and Atraumatic. Nose: Nose normal. Mouth/Throat: Oropharynx is clear and moist. Eyes: No conjunctiva injection. EOM Intact. PERRLA. No scleral icterus. Neck: Neck supple. No JVD present. No tracheal deviation present. No thyromegaly Cardiovascular: Regular rate and rhythm, + Murmur, no friction rub. Pulmonary/Chest: + Rales and crackles at right mid and lower zones, mostly clear on the le ft and no wheezes or rhonchi's. Abdominal: Soft, BS present, no distension, no ascites. No rebound tenderness and no guardi ng. Musculoskeletal: Moves all limbs, No difficulty in walking and no joint tenderness. + Mild Bipedal edema. Neurological: No Focal neurologic deficits, No CN deficits. Skin: Skin is warm and dry. No ecchymoses, or abrasions. Psychiatric: No Confusion, No agitation, Reactive affect and Judgement is stable. LABS: Recent Results (from the past 24 hour(s)) POC Glucose Result Value Ref Range Glucose, POC 127 (H) 65 - 99 mg/dL Vancomycin, Trough Result Value Ref Range Vancomycin, Trough 39.4 (HH) 10 - 20 ug/mL Culture, Body Fluid Sterile Result Value Ref Range Gram Stain Result NO CELLS OR ORGANISMS SEEN Gram Stain Result Testing performed at [facility], [address] [place] [address] RESULT PENDING POC Glucose Result Value Ref Range Glucose, POC 172 (H) 65 - 99 mg/dL POC Glucose Result Value Ref Range Glucose, POC 195 (H) 65 - 99 mg/dL POC Glucose Result Value Ref Range Glucose, POC 195 (H) 65 - 99 mg/dL Vancomycin, Trough Result Value Ref Range Vancomycin, Trough 25.9 (HH) 10 - 20 ug/mL Basic Metabolic Panel Result Value Ref Range Na 142 135 - 145 mmol/L K 4.5 3.5 - 4.9 mmol/L Cl 108 99 - 109 mmol/L CO2 27 23 - 32 mmol/L Anion Gap 12 5 - 20 mmol/L Glucose 151 (H) 65 - 99 mg/dL BUN 16 8 - 25 mg/dL Creatinine 1.50 (H) 0.50 - 1.00 mg/dL BUN/Creatinine Ratio 11 Calcium 8.7 8.5 - 10.5 mg/dL Estimated GFR 36 (L) >60 mL/min/1.73m2 PROBLEM LIST Principal Problem: Sepsis Active Problems: Empyema of pleural space Right lower lobe pneumonia Anemia of chronic disease Essential hypertension, benign Type 2 diabetes mellitus with diabetic nephropathy, without long-term current use of insu rosy Cyanocobalamin deficiency Hypothyroidism Thrombocytosis COPD (chronic obstructive pulmonary disease) Weakness generalized ASSESSMENT & PLAN Sepsis: Likely precipitated by pneumonia and right lung empyema, S/P Chest tube placement b y IR services and cultures have been negative so far. ID services following and Dr. Arshad plans to change antibiotics to IV Ceftaroline 600 mg BID due to renal insufficiency and fol low CBC and culture results. Empyema Right Lung with RLL Pneumonia: Patient was recently diagnosed with Pneumonia and a dmitted at [facility] requiring IV antibiotics. She improved but then developed worsening shortness of breath and subsequent CXR revealed effusion with possible e mpyema. Initially CT surgery services consulted and they did not think patient was a good flowers rgical candidate due to multiple comorbidities and morbid obesity. IR team then placed a CT- guided right sided chest tube without complications but due to minimal out put they plan to proceed with tPA today. ID services also following and Dr. Arshad changed antibiotics to I V Ceftaroline BID as mentioned above. A PICC line will be placed in another 24 to 48 hours a nd monitor progress. Anemia of Chronic Disease with Vitamin B 12 Deficiency: H&H was stable at 9.4 without sing s of active bleeding, will continue Vitamin B 12, Folic Acid and oral Iron supplements and m onitor CBC. Diabetes Mellitus Type 2 with Neuropathy: Blood sugars are stable at present, she had few e pisodes of hypoglycemia in the past days which is now stable and improved. Will continue Gli mepiride 2 mg daily & monitor blood sugars AC/HS. Thrombocytosis: Likely reactive and precipitated by infection, will monitor CBC, started lo w dose ASA 81 mg daily and monitor. Hypothyroidism: Chronic but stable, continue Levothyroxine 175 mcg daily and no changes rec ommended at this time. Chronic Obstructive Pulmonary Disease: Stable and without any signs of acute exacerbation. Will continue Symbicort and Spiriva inhaler at home dosages and no changes recommended at t his time. Hypertension: BP is stable at present, continue Lisinopril and Metoprolol as scheduled and monitor hemodynamics. Generalized Weakness / Debility: Multifactorial, secondary to pneumonia, empyema and decon ditioning. Will involve PT/OT services and follow their recommendations. DVT prophylaxis with SCD's and Lovenox. Discharge plans in another 2 to 3 4 days to [facility] in [place] or when stable and improved and cleared by ID and IR services. Fredrick Rubin MD 11/24/2019 Shital Carmichael [facility] - 11/23/2019 11:30 PM PDTFormatting of this note might be different from the origin al. Vancomycin Dosing Per Pharmacy Subjective/Objective Phoenix Dangelo is a 54 y.o. female started on vancomycin 11/20 for HAP with history of MRS A infection. Assessment/Plan Vancomycin Trough resulted: 11/22 @ 2140: 25.9 mcg/mL. above goal 15-20 mcg/mL Based on this level and the level drawn earlier, I was able to use two-point kinetics to ob tain the following patient-specific PK parameters. Ke = 0.66205 1/hr T1/2 = 21 hours Estimated time that vanco will drop to 17 mcg/mL = 11/23 @1000 Supra-therapeutic levels could be due to drug accumulation with obesity, however, note that no serum creatinine was drawn this morning, so I am unable to rule out EVA as a cause for s upra-therapeutic level. Will continue to hold vancomycin and re-check a level tomorrow morning @1000. A BMP with se rum creatinine has already been placed for tomorrow morning. Plan for level: 11/23 at 1000. Pharmacy will continue to follow and make adjustments to vancomycin therapy as indicated. Thank You, Allyssa Johnson, [facility], 11/23/2019, 11:21 PM Patricia Alcocer RN - 11/23/2019 12:34 PM PDTProv[facility] received [facility]. Will invest igate benefits and follow up with CM. Thank you for your referral. Patricia Macedo RN [phone]: We are not contracted with this [facility] OR plan, CM notified.Electronically sosa d by Patricia Macedo RN at 11/23/2019 2:37 PM Nancy Hutson PharmD - 11/23/2019 12:10 PM PDT Vancomycin Dosing Per Pharmacy Subjective/Objective Phoenix Dangelo is a 54 y.o. female started on vancomycin 11/20 for HAP with history of MRS A infection. Current Vital Signs: BP 118/61 | Pulse 83 | Temp 36.8 C (98.2 F) (Oral) | Resp 11 | Ht 1.6 m (5' 3") | Wt (!) 162.3 kg (357 lb 12.9 oz) | LMP (LMP Unknown) | SpO2 93% | B reastfeeding No | BMI 63.38 kg/m Recent Labs Lab 11/23/19 0906 11/22/19 0518 11/21/19 1935 WBC -- 17.08* -- VANCOTROUGH 39.4* -- -- CREA -- 1.10* 1.07* Estimated Creatinine Clearance: 91 mL/min (A) (based on SCr of 1.1 mg/dL (H)). Vancomycin Dosing History Date Dosing Regimen Admin Times Trough SCr Comments Day 1 11/20 2500 mg IV X 1 2215 1.07 Day 2 11/21 1500 mg IV Q12H 0932 2246 1.10 Day 3 11/22 39.4 @ 0906 Day 4 Day 5 *SCr = mg/dL [vanco] = mcg/mL Assessment/Plan Vancomycin Trough resulted: 11/22 @ 0906: 39.4 mcg/mL. above goal 15-20 mcg/mL. Trough was o btained appropriately prior to the administration of the 4th dose. Accumulation might have c ontributed to this elevated trough. Also, although CrCl is calculated to be 91 mL/min, but e GFR is 52 mL/min/1.73m2, CrCl is overestimated due to patient's weight. Will hold the morning dose given the supra-therapeutic trough level. Anticipating that q24h regimen would achieve appropriate trough levels. Plan for level: Random level on 11/23/2019 at 2200 to assess clearance of vancomycin. Pharmacy will continue to follow and make adjustments to vancomycin therapy as indicated. Thank You, Nancy Fleming PharmD, BCPS, 11/23/2019, 11:30 AM Fredrick Killian MD - 11/23/2019 10:35 AM PDTFormatting o f this note might be different from the original. Service: Hospitalist Daily Progress Note Phoenix Dangelo 54 y.o. : 1965 SEX: female PCP: Remi Talley MD Hospital Day: LOS: 2 SUBJECTIVE Patient Summary: Patient is a 54 year old female with past medical history of HTN, HLD, DM Type 2, COPD and Chronic Pain who was first admitted at [facility] on 11/11/19 due to dyspnea an d fevers. Her labs showed leukocytosis of [address] showed RLL pneumonia without effusion. C OVID testing was negative, she was treated with IV Rocephin and Zithromax for sepsis precipi tated by community-acquired pneumonia. She made progress but had persistent leukocytosis and IV Vancomycin was added. Sputum cultures came positive for MRSA and she showed good sings o f progress and improvement on antibiotics. She was eventually discharged on 11/17/19 on oral Doxycycline, however she returned several hours later the same day with chest pain. CXR th showed right-sided pleural effusion and labs again showed leukocytosis of 22.She was k ept on Doxycycline but due to recurrent shortness of breath and dry cough CT Chest was done on 11/21/2019 which showed right sided large pleural effusion extending along the medial pauline e of the lung measuring 3 cm in thickness and few air bubbles features suggestive of empyema . She was then transferred to [facility] for CT Surgery evaluation. Events Overnight: Patient seen and examined. Overnight events noted. Patient was seen awake and alert. She re ported feeling fair but had pain at the right chest area at the chest tube insertion site. D enied any fever, chills, no headaches, nausea, vomiting, shortness of breath but has mild co ugh without phlegm. Feeling less energetic and fatigued. No abdominal pain, diarrhea or cons tipation and appetite is fair. Remained afebrile. Scheduled Medications acetaminophen, 650 mg, Oral, Q6H PRN albuterol, 2 puff, Inhalation, Q4H PRN albuterol, 2 puff, Inhalation, RT Q4H PRN ascorbic acid, 500 mg, Oral, Daily atorvaSTATin, 10 mg, Oral, Nightly budesonide-formoterol, 2 puff, Inhalation, RT BID capsaicin, , Topical, 4x Daily dextrose, 12.5-25 g, Intravenous, PRN And dextrose 10%, , Intravenous, Continuous PRN diclofenac, 2 g, Topical, 4x Daily docusate sodium, 100 mg, Oral, BID PRN DULoxetine, 60 mg, Oral, Daily gabapentin, 300 mg, Oral, TID heparin, 5,000 Units, Subcutaneous, 3 times per day HYDROmorphone, 0.5-1 mg, Intravenous, Q4H PRN insulin lispro, 0-6 Units, Subcutaneous, 4x Daily WC and HS levoFLOXacin, 750 mg, Intravenous, Daily levothyroxine, 176 mcg, Oral, QAM AC lidocaine, 20 mL, Infiltration, Once lisinopril, 5 mg, Oral, Daily melatonin, 3 mg, Oral, Nightly PRN metoprolol tartrate, 50 mg, Oral, BID montelukast, 10 mg, Oral, Nightly nystatin, , Topical, BID ondansetron, 4 mg, Intravenous, Q6H PRN oxyCODONE, 5-10 mg, Oral, Q4H PRN pantoprazole, 40 mg, Oral, QAM AC polyethylene glycol, 17 g, Oral, Daily PRN senna, 8.6 mg, Oral, BID PRN sodium chloride 0.9%, , Intravenous, Continuous tiotropium, 2 puff, Inhalation, RT Daily traZODone, 100 mg, Oral, Nightly vancomycin per pharmacy, , Other, Pharmacy Consult Continuous Infusions . PRN Medications Current Facilty-Administered PRN Medications Ordered in Epic Medication Dose Route Frequency Provider Last Rate Last Dose acetaminophen (TYLENOL) tablet 650 mg 650 mg Oral Q6H PRN María Elena Blas MD 650 mg at 11/22/192038 albuterol 90 mcg/puff inhaler 2 puff 2 puff Inhalation Q4H PRN Charlene Rao DO albuterol 90 mcg/puff inhaler 2 puff 2 puff Inhalation RT Q4H PRN María Elena Blas MD dextrose 50% injection 12.5-25 g 12.5-25 g Intravenous PRN María Elena Blas MD And dextrose 10% (D10W) infusion Intravenous Continuous PRN María Elena Blas MD docusate sodium (COLACE) capsule 100 mg 100 mg Oral BID PRN María Elena Blas MD HYDROmorphone (DILAUDID) injection 0.5-1 mg 0.5-1 mg Intravenous Q4H PRN Fredrick Rubin MD 0.5 mg at 11/23/19 1417 melatonin tablet 3 mg 3 mg Oral Nightly PRN María Elena Blas MD 3 mg at 11/22/192038 ondansetron (ZOFRAN) injection 4 mg 4 mg Intravenous Q6H PRN María Elena Blas MD 4 mg at 11/23/19 0822 oxyCODONE (ROXICODONE) tablet 5-10 mg 5-10 mg Oral Q4H PRN Fredrick Rubin MD polyethylene glycol (MIRALAX) powder 17 g 17 g Oral Daily PRN María Elena Blas MD senna (SENOKOT) tablet 8.6 mg 8.6 mg Oral BID PRN María Elena Bals MD Allergy: Allergies Allergen Reactions Penicillins Shortness Of Breath Shellfish-Derived Products Shortness Of Breath Iodinated Diagnostic Agents Other (See Comments) OBJECTIVE Vital Signs: Vitals: 11/23/19 1101 BP: 118/61 Pulse: 83 Resp: 11 Temp: 36.8 C (98.2 F) Intake/Output Summary (Last 24 hours) at 11/23/2019 1632 Last data filed at 11/22/2019 2049 Gross per 24 hour Intake 706 ml Output Net 706 ml Examination: Constitutional: Patient is alert and oriented x 3. Appears weak but not in acute distress. HEENT: Head: Normocephalic and Atraumatic. Nose: Nose normal. Mouth/Throat: Oropharynx is clear and moist. Eyes: No conjunctiva injection. EOM Intact. PERRLA. No scleral icterus. Neck: Neck supple. No JVD present. No tracheal deviation present. No thyromegaly Cardiovascular: Regular rate and rhythm, + Murmur, no friction rub. Pulmonary/Chest: + Rales and crackles at right mid and lower zones and no wheezes or rhonc hi's. Abdominal: Soft, BS present, no distension, no ascites. No rebound tenderness and no guardi ng. Musculoskeletal: Moves all limbs, No difficulty in walking and no joint tenderness. + Mild Bipedal edema. Neurological: No Focal neurologic deficits, No CN deficits. Skin: Skin is warm and dry. No ecchymoses, or abrasions. Psychiatric: No Confusion, No agitation, Reactive affect and Judgement is stable. LABS: Recent Results (from the past 24 hour(s)) POC Glucose Result Value Ref Range Glucose, POC 174 (H) 65 - 99 mg/dL POC Glucose Result Value Ref Range Glucose, POC 127 (H) 65 - 99 mg/dL Vancomycin, Trough Result Value Ref Range Vancomycin, Trough 39.4 (HH) 10 - 20 ug/mL POC Glucose Result Value Ref Range Glucose, POC 172 (H) 65 - 99 mg/dL PROBLEM LIST Principal Problem: Sepsis Active Problems: Empyema of pleural space Right lower lobe pneumonia Anemia of chronic disease Essential hypertension, benign Type 2 diabetes mellitus with diabetic nephropathy, without long-term current use of insu rosy Cyanocobalamin deficiency Hypothyroidism Thrombocytosis COPD (chronic obstructive pulmonary disease) Weakness generalized ASSESSMENT & PLAN Sepsis: Likely precipitated by pneumonia and right lung empyema, will continue IV Levaquin and vancomycin as scheduled per ID services and follow CBC and culture results. Empyema Right Lung with RLL Pneumonia: Patient was recently diagnosed with Pneumonia and a dmitted at [facility] requiring IV antibiotics. She improved but then developed worsening shortness of breath and subsequent CXR revealed effusion with possible e mpyema. CT surgery services consulted and they did not think patient was a good surgical ca ndidate candidate due to multiple comorbidities and morbid obesity. They instead recommende d IR consultation and a CT-guided right sided chest tube was placed. Will continue IV Levaqu in and Vancomycin as per Dr. Arshad and monitor progress. Anemia of Chronic Disease with Vitamin B 12 Deficiency: H&H is stable at 9.4 range without sings of active bleeding, will continue Vitamin B 12, Folic Acid and oral Iron supplements and monitor CBC. Diabetes Mellitus Type 2 with Neuropathy: Blood sugars are stable at present, she had few e pisodes of hypoglycemia but without symptoms. Will resume oral Glimepiride 2 mg every AM an d continue to monitor blood sugars AC/HS. Will check A1C in AM. Thrombocytosis: Likely reactive and precipitated by infection, will continue to monitor CBC and start low dose ASA 81 mg daily and monitor. Hypothyroidism: Chronic but stable, will continue Levothyroxine 175 mcg daily and no change s recommended at this time. Chronic Obstructive Pulmonary Disease: Stable and without any signs of acute exacerbation. Will continue Symbicort and Spiriva inhaler at home dosages and no changes recommended at t his time. Hypertension: BP to be stable at present, continue lisinopril and metoprolol as scheduled a nd monitor hemodynamics. Generalized Weakness / Debility: Multifactorial, secondary to pneumonia, empyema and decon ditioning. Will involve PT/OT services when medically stable and improved. DVT prophylaxis with SCD's and Lovenox. Discharge plans in another 3 to 4 days when stable and improved and cleared by ID and IR se rvices. Fredrick Rubin MD 11/23/2019 aranada, Abi hannah MD - 11/23/2019 9:26 AM PDTFormatting of this note might be different from the [facility] Service: Infectious Disease Progress Note Hospital Day: LOS: 2 days Post-Op Day: * No surgery found * SUBJECTIVE Patient Summary: Re: MRSA pneumonia, loculated pleural effusion History of UTI vs bacteriuria History PCN allergy For details of patient's history, please refer to ID consult note on 11/21 Events Overnight: Status post right chest tube placement under IR earlier Patient is afebrile, hemodynamically stable with oxygen saturation of 93 to 95% in room air Scheduled Medications ascorbic acid 500 mg Oral Daily atorvaSTATin 10 mg Oral Nightly budesonide-formoterol 2 puff Inhalation RT BID capsaicin Topical 4x Daily diclofenac 2 g Topical 4x Daily DULoxetine 60 mg Oral Daily gabapentin 300 mg Oral TID heparin 5,000 Units Subcutaneous 3 times per day insulin lispro 0-6 Units Subcutaneous 4x Daily WC and HS levoFLOXacin 750 mg Intravenous Daily levothyroxine 176 mcg Oral QAM AC lisinopril 5 mg Oral Daily metoprolol tartrate 50 mg Oral BID montelukast 10 mg Oral Nightly nystatin Topical BID pantoprazole 40 mg Oral QAM AC tiotropium 2 puff Inhalation RT Daily traZODone 100 mg Oral Nightly vancomycin 15 mg/kg (Adjusted) Intravenous Q12H vancomycin per pharmacy Other Pharmacy Consult Continuous Infusions dextrose 10% PRN Medications acetaminophen, albuterol, albuterol, Hypoglycemia Management AND POCT Glucose AND d extrose AND dextrose 10%, docusate sodium, melatonin, ondansetron, oxyCODONE, polyethyle ne glycol, senna OBJECTIVE Vital Signs: Vitals: 11/23/19 0736 BP: 113/56 Pulse: 82 Resp: 20 Temp: 37 C (98.6 F) Physical Exam Vital signs have been reviewed General: Pleasant female, not in acute physical distress. HEENT: Normocephalic. Anicteric sclera. Conjunctival pallor is noted. EOM intact. No na juhi mucosal lesions. No sinus tenderness. No tragal tenderness. Moist oral mucosa with no oral thrush or ulcers. Supple neck with no cervical lymphadenopathy No chest wall tenderness to palpation Lungs: Right chest tube in place. Decreased breath sounds at the right mid and lower lung f ield compared to the left side. No wheezes or rhonchi Cardiovascular: Normal rate. Regular rhythm. No murmur or rubs Abdomen: No distention. Soft. No tenderness, rebound or guarding Skin: No rash. Peripheral IV site with no signs of inflammation Ecchymotic lesions in varying stages noted at both upper extremities Musculoskeletal: No inflamed-looking joints Grade 1 bipedal edema Neurologic: Oriented x3. Motor strength intact upper and lower extremities Psychiatric: Appropriate mood and affect DATA Recent Results (from the past 24 hour(s)) POC Glucose Collection Time: 11/22/19 9:28 AM Result Value Ref Range Glucose, POC 92 65 - 99 mg/dL POC Glucose Collection Time: 11/22/19 11:29 AM Result Value Ref Range Glucose, POC 108 (H) 65 - 99 mg/dL POC Glucose Collection Time: 11/22/19 4:13 PM Result Value Ref Range Glucose, POC 94 65 - 99 mg/dL POC Glucose Collection Time: 11/22/19 8:58 PM Result Value Ref Range Glucose, POC 174 (H) 65 - 99 mg/dL POC Glucose Collection Time: 11/23/19 7:38 AM Result Value Ref Range Glucose, POC 127 (H) 65 - 99 mg/dL Right pleural fluid culture pending Chest x-ray Impression: 1. Mild interstitial edema with small right-sided pleural effusion. 2. Mild bibasilar subsegmental atelectasis. Signed by: Elsa Monterroso Chet Sign Date/Time: 11/23/2019 1:19 PM PROBLEM LIST Principal Problem: Empyema of pleural space Active Problems: Anemia of chronic disease Essential hypertension, benign Type 2 diabetes mellitus with diabetic nephropathy, without long-term current use of insu rosy Cyanocobalamin deficiency Hypothyroidism Chronic pain syndrome Right lower lobe pneumonia MRSA infection (methicillin-resistant Staphylococcus aureus) Thrombocytosis Hypoalbuminemia COPD (chronic obstructive pulmonary disease) GERD without esophagitis Pulmonary nodules ASSESSMENT & PLAN Loculated right pleural effusion/empyema in a patient with known MRSA pneumonia -Patient is currently not septic -Prior sputum culture grew MRSA with blood culture showing no growth -COVID-19 testing on 11/10 had been negative -Patient is currently hemodynamically stable; oxygen saturation stable in room air -She is on IV vancomycin with target trough of 15-20 per Pharmacy dosing and levofloxacin; linezolid considered but not prescribed because of risk for serotonin release syndrome/drug interaction. Discussed with patient that there is a possibility that she may need IV antib iotics on discharge -CT surgery has been consulted. Chest tube placed today, 11/22 by Interventional Radiology -Chest CT scan also showed spiculated nodules; follow-up chest CT scan has been recommende d in 6 months History of bacteriuria, ? UTI -Patient currently has no symptoms of urinary tract infection Thrombocytosis -Most likely reactive; monitor Type 2 diabetes mellitus -Specifics of management per hospitalist service Nausea -anti-emetics prn Code Status: Full Code Alana Arshad MD 11/23/2019 Charlene Parker DO - 11/22/2019 7:44 AM PDTFormatting of this note might be different from the haritha robbins [facility] Adult Hospitalist Progress Note Hospital Day: 1 HPI SUMMARY: Mrs. Dangelo is a 54 yo F with PMHx of DM2, chronic pain, COPD who presented to [facility] on 11/11/19 with SOB and fevers. She was admitted with diagnosis of severe seps is with WBC [address] evidence of RLL pna without effusion. COVID testing was negative. She was started on IV Rocephin and Zithromax for community-acquired pneumonia. She had persisten t leukocytosis therefore vancomycin IV was added. Sputum cultures positive for MRSA. Patien t improved on vancomycin and she was discharged on 11/17/19 on oral doxycycline. She re-prese nted several hours later with chest pain. Chest x-ray at that time showed right-sided pleur al effusion and WBC 22. She was continued on oral doxycycline. She had recurrent episodes o f shortness of breath every couple of hours associated with dry cough. She remained afebril e. White blood cell count ranged between 18,000-20,000. On 11/[address] scan of the [address] which demonstrated loculated right large pleural effusion extending along the medial side of the lung spanning 20 cm from apex to the base measuring 3 cm in thickness also had enhan cing rind associated with few air bubbles features suggestive of empyema. Patient transferr ed to [facility] for CT Surgery consultation. CT Surgery was consulted and recommended IR guided drain placement. SUBJECTIVE Events Overnight: Stable overnight, BS low. Asymptomatic. Seen by CTS this AM. Recommended IR consult. Update d patient. All questions answered. Afebrile. Denies F/C/N/V/SOB/CP. Has occasional dry cough , has not had sputum production. Main complaint is right upper lung pleuritic pain and neck soreness. OBJECTIVE Vital Signs: Blood pressure 116/59, pulse 74, temperature 36.5 C (97.7 F), temperature source Oral, resp. rate 20, height 1.6 m (5' 3"), weight (!) 162.3 kg (357 lb 12.9 oz), SpO2 94 %, not cu rrently . General: Alert, no distress, lying in bed Eyes: PERRL, no scleral icterus, no dischage ENT: External ears normal, Nose normal, oropharynx moist no exudates Neck: Supple, no thyromegaly Cardiovascular: Regular rate and rhythm, no murmurs, no rub Respiratory: No respiratory distress, Decreased breath sounds on the right mid and lower paolo ng, left lung is clear Abdomen: Soft, non-tender, non-distended, active bowel sounds Back: No tenderness or deformity Skin: Warm and dry, no rashes Extremities: 2+ pitting edema of her legs and feet noted Neuro: No gross motor/sensory deficit. CN grossly intact. Alert and oriented to person, pl martín, time. DATA Recent Labs Lab 11/22/19517 INR 1.2 Recent Labs Lab 11/22/1951711/21/19 193 WBC 17.08* -- HGB 9.4* -- HCT 30.6* -- PLT 570* -- NA 139 138 K 4.1 4.0 CL 103 101 CO2 30 30 BUN 16 17 EGFR 52* 54* CALCIUM 9.0 8.8 ANIONGAP 10 11 MG 1.3* -- AST 25 -- ALT 26 -- No results for input(s): TROPONINT, CKMB in the last 168 hours. Invalid input(s): CKTOTAL, TROPONINI, CKMBINDEX, PCOTNI No results for input(s): CLARITYU, LEUKOCYTESUR, UROBILINOGEN, PHUR, BLOODU, KETONES, BILIR UBINUR, GLUCOSEU, RBCU, BACTERIA, COMU in the last 168 hours. Invalid input(s): UCOL, SPECGRAV, NITRITE, UPRO PROBLEM LIST Principal Problem: Empyema of pleural space Active Problems: Anemia of chronic disease Essential hypertension, benign Type 2 diabetes mellitus with diabetic nephropathy, without long-term current use of insu rosy Cyanocobalamin deficiency Hypothyroidism Chronic pain syndrome Right lower lobe pneumonia MRSA infection (methicillin-resistant Staphylococcus aureus) Thrombocytosis Hypoalbuminemia COPD (chronic obstructive pulmonary disease) GERD without esophagitis Pulmonary nodules IMPRESSION/PLAN: Mrs. Dangelo is a 54 yo female presenting with right lower lobe pneumonia complicated with empyema. Sputum cultures grew MRSA. - Dr. Walden cardiothoracic surgeon consulted and recommended IR consultation for tube samuel cement - Discussed with Dr. Bradshaw - Continue IV vancomycin and IV Levaquin per IDs recs - She was tested negative for COVID on 11/11/2019. - History Polymicrobial urinary tract infection completed treatment with IV Rocephin. B12 deficiency anemia: Complicated with acute infection. No overt symptoms of bleeding. S he is s/p 2 units of PRBC transfusion 11/19 at the outside facility. Thrombocytosis multifactorial reactive secondary to infection and anemia. - DVT prophylaxis with subcu heparin ordered. Diabetes mellitus type 2 complicated with diabetic nephropathy - SSI ordered, BS running low this AM - hypoglycemic protocol Gastroesophageal reflux disease - Protonix Former smoker COPD - stable without acute exacerbation - continue home inhalers Hypothyroidism - levothyroxine Chronic pain syndrome - resume home meds. Chronic insomnia - continue trazodone and melatonin. Incidental finding of spiculated nodules: Requires repeat CT scan in 6 months. 10 cm in th e upper right anterior lung, 5 mm in the right anterior lung apex. Discussed with patient. Essential hypertension: Resume home meds.Stable DVT prophylaxis with subcu heparin ordered. Compression socks. Charlene Rao DO 11/22/2019 Michael Valerio RPH - 11/21/2019 10:55 PM PDT Vancomycin Dosing Per Pharmacy Subjective/Objective Phoenix Dangelo is a 54 y.o. female started on vancomycin 11/20 for HAP. History of MRSA in fection. Additional antimicrobials: levofloxacin IV Quadriplegic/Paraplegic: no Diabetes: yes Baseline Serum Creatinine: 0.86 Current Vital Signs: BP 147/70 | Pulse 84 | Temp 36.3 C (97.4 F) (Oral) | Resp 20 | Ht 1.6 m (5' 3") | Wt (!) 162.3 kg (357 lb 12.9 oz) | LMP (LMP Unknown) | SpO2 98% | B reastfeeding No | BMI 63.38 kg/m Recent Labs Lab 11/21/19 1935 CREA 1.07* Estimated Creatinine Clearance: 94 mL/min (A) (based on SCr of 1.07 mg/dL (H)). Microbiology Results (72 hrs) No results found for the last 72 hours. Vancomycin Dosing History Date Dosing Regimen Admin Times Trough SCr Comments Day 1 11/20 2500 mg IV once 2215 1.07 Day 2 Day 3 (check cx on day 3) (Discontinue if cultures negative) Day 4 Day 5 *SCr = mg/dL [vanco] = mcg/mL Assessment/Plan Vancomycin Load: 2500 mg (25 mg/kg) IV x 1. Was sufficient Maintenance Dose: 1500 mg IV q12h (15 mg/kg/dose) Rationale: Based on Kadlec dosing nomogram, current renal function, and desired trough. Target trough: 15-20 mcg/ml Concurrent potentially nephrotoxic medications: levofloxacin Culture monitoring: Will monitor culture(s) for growth, identification, and sensitivities. Plan for level: 11/22 at 0900. Pharmacy will continue to follow and make adjustments to vancomycin therapy as indicated. Thank You, MICHAEL SALVADOR RPH, 11/21/2019, 10:53 PM khil Walden MD - 11/21/2019 6:59 PM PDTFull consult to follow after review of CT scanElectronically sig iraida by Akhil Walden MD at 11/21/2019 7:03 PM PDTdocumented in this encounter H&P Notes Calderon Leggett MD - 11/23/2019 10:06 AM PDTFormatting of this note might be di fferent from the original. Vascular & Interventional Radiology Note Patient Name: Phoenix Dangelo Date of : 1965 Requesting Provider: Weston Andre MD Consulting Provider: Calderon Leggett MD Reason for Referral: Chest tube request for right loculated pleural effusion History of Present Illness: Phoenix Dangelo is a 54 y.o. female. I was asked to see Phoenix for chest tube placement Review of Systems: ROS All other systems negative. 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 Moderate Sedation Presedation Assessment completed. The patient was reassessed immediately prior to sedation with no significant clinical mercado es in the exam, including heart and lungs, since the completion of H&P ASA Classification: 2 Mallampati Classification: 2 Consent: Risks, alternatives, and benefits of the procedure were discussed with the patient. Questio ns were answered. Signed and verbal consent were given as witnessed by staff. Pre-Procedure Diagnosis: Right pleural effusion Procedure to be performed: CT guided chest tube placement Assessment and Plan: Phoenix Dangelo is a 54 y.o. female with a loculated R pleural effusion seen on imaging. R equest placed for CT guided chest tube, which will be performed today. Calderon Leggett MD Vascular and Interventional Radiology aila, Toño workman MD - 11/21/2019 6:36 PM PDTFormatting of this note might be different from the origi nal. [facility] Service: Hospitalist Admission History & Physical Date of Admission: 11/21/2019 Primary Care Physician: Roberth Gaspar MD Reason for Admission: Right lower lobe MRSA pneumonia with empyema. History Obtained From: History obtained from chart review and the patient. CHIEF COMPLAINT: No chief complaint on file. Pneumonia HISTORY OF PRESENT ILLNESS The patient is a 54 y.o. female with significant past medical history of diabetes mellitus type 2 not on insulin former smoker COPD not on home oxygen or chronic steroids morbid obesi ty BMI of 63 no prior diagnosis of obstructive sleep apnea hypothyroidism essential hyperten dana chronic pain syndrome on Cymbalta oxycodone and gabapentin. GERD without acute esophag itis. Patient came as a direct admit from [facility] for right-sided empyema. This patient was admitted to [facility] on November 11, 2019 with chief complaint of shortness of breath which had been going on for 2 weeks prior to the hospitalization asso ciated with high-grade fevers. She was admitted with diagnosis of severe sepsis characteriz ed by leukocytosis of 35,000 and elevated lactic acid of 2.[address] evidence of right lower lobe pneumonia without effusion. She was ruled out for SARS-CoV-2 virus infection. She was started on IV Rocephin and Zithromax for community-acquired pneumonia. She had persistent leukocytosis therefore vancomycin IV was added. Sputum cultures positive for MRSA she appar ently had intermittent abdominal pain and therefore CT scan of abdomen and pelvis was comple brandyn which per report was unremarkable. On IV vancomycin patient's white count came down to 23,000 and improved symptomatically. She was discharged on November 17, 2019 on oral doxycycline based on her sputum culture and susceptibilities. She returned back to the emergency room within few hours of worsening symptoms. Chest x-ray at that time showed right-sided pleural effusion white count on readmission was 22,000. Metabolic parameters were within normal [facility]. She was continued on oral doxycycline. She had recurrent episodes of shortness of br eath every couple of hours associated with dry cough. She remained afebrile. White blood c ell count ranged between 18,000-20,000. Today she had CT scan of the chest which demonstrat ed loculated right large pleural effusion extending along the medial side of the lung spanni ng 20 cm from apex to the base measuring 3 cm in thickness also had enhancing rind associate d with few air bubbles features suggestive of empyema. So patient was transferred for [facility] othoracic surgery consultation here. Today she received 2 g of vancomycin at their facility . She also had anemia which was felt to be secondary to infection. She did not have any symp toms or signs of GI bleeding. Yesterday she was transfused 2 units of PRBC. Hemoglobin imp roved from 7-10. For diabetes she was continued on oral medications glimepiride and metformin. This morning she had hypoglycemia event therefore oral meds were discontinued. She had polymicrobial ur inary tract infection versus colonization secondary to E. coli Proteus Mirabella's. She is s/p 7 days of IV Rocephin therapy. At this time her only symptom is pain in her hands and feet and diffuse myalgias. She has mild dry cough associated with mild chest tightness. On and off wheezing. Mild pleuritic c hest pain. No fevers or chills. Denies hemoptysis. For the past couple of days she has prasad d 2 soft stools no abdominal pain bloating nausea vomiting denies GI bleeding. No prior his tory of coronary artery disease DVT PE or congestive heart failure. Laboratory work-up at the outside hospital today as follows: Sodium 140 potassium 5.0 chlor justine 100 bicarbonate 28 BUN 19 creatinine 1.0 GFR of 53. This morning glucose was 59 hold bl ood glucose at 5:12 PM 177 calcium 8.5 phosphorus 3.4 albumin 2.7 WBC was 20 H&H was 10 and 32 MCV 80 platelet count was 718. CT scan of the chest with IV contrast 11/21/2019 findings consistent with right pneumonia a nd right empyema. Slightly spiculated right lung nodules for which follow-up CT is recommen ded in 6 months Sputum cultures 11/15/2019 reported MRSA staph susceptible to clindamycin daptomycin doxycy keenan vancomycin. Urine cultures from 11/11/2019 reported E. coli Proteus Mirabella's susceptible to Rocephin completed treatment. Blood cultures from 2019 no growth. Allergies Allergen Reactions Penicillins Shortness Of Breath Shellfish-Derived Products Shortness Of Breath Iodinated Diagnostic Agents Other (See Comments) Review of Systems Constitutional: Positive for appetite change. Negative for activity change, chills, diaphor esis, fatigue, fever and unexpected weight change. HENT: Negative for postnasal drip, rhinorrhea, sinus pressure, sore throat and trouble swal lowing. Eyes: Negative for visual disturbance. Respiratory: Positive for cough, chest tightness and shortness of breath. Negative for apne a and wheezing. Cardiovascular: Positive for chest pain and leg swelling. Negative for palpitations. Gastrointestinal: Positive for diarrhea. Negative for abdominal distention, abdominal pain, blood in stool, constipation, nausea and vomiting. Endocrine: Negative for polydipsia, polyphagia and polyuria. Genitourinary: Negative for difficulty urinating, dysuria, flank pain, hematuria and urgenc y. Musculoskeletal: Positive for myalgias. Negative for gait problem, neck pain and neck stiff ness. Skin: Negative for rash and wound. Allergic/Immunologic: Negative for immunocompromised state. Neurological: Negative for dizziness, seizures, syncope, facial asymmetry, speech difficult y, weakness, numbness and headaches. Hematological: Negative for adenopathy. Does not bruise/bleed easily. Psychiatric/Behavioral: Negative for agitation, confusion, hallucinations, sleep disturbanc e and suicidal ideas. The patient is not nervous/anxious. Active comorbid conditions include: - hypertension; essential - COPD - endocrine problem - diabetes; type 2 - hypothyroidism - GERD - obesity; morbid BMI 40+ - anemia; chronic Past Medical History: Diagnosis Date Anemia Asthma Asthma Chronic pain syndrome 09/13/2019 Cyanocobalamin deficiency 09/13/2019 Degeneration of lumbar intervertebral disc Degeneration of lumbar or lumbosacral intervertebral disc 09/13/2019 GERD without esophagitis GERD without esophagitis HTN (hypertension) Hyperlipidemia Hypertension Hypothyroidism Hypothyroidism Hypothyroidism 09/13/2019 Idiopathic neuropathy Idiopathic neuropathy Reactive airways dysfunction syndrome (HCC) 09/13/2019 Sprain of deltoid ligament of right ankle, sequela Type 2 diabetes mellitus (HCC) Type 2 diabetes mellitus (HCC) Vitamin B 12 deficiency Past Surgical History: Procedure Laterality Date FOOT SURGERY Left [address] Dr. Anguiano GALLBLADDER SURGERY 1997 [facility] SINUS SURGERY 1998 [facility] Medications Prior to Admission Medication Sig Dispense Refill acetaminophen (TYLENOL) 500 mg tablet Take 500 mg by mouth every 6 hours as needed for Pain. albuterol 90 mcg/puff inhaler Inhale 2 puffs into the lungs every 4 (four) hours as nee ded for Wheezing. ascorbic acid (VITAMIN C) 500 MG tablet Take 500 mg by mouth daily. atorvaSTATin (LIPITOR) 10 mg tablet take 1 tablet by mouth once daily 0 capsaicin (ZOSTRIX) 0.025% cream apply topically to affected area four times a day clotrimazole-betamethasone (LOTRISONE) cream Apply topically 2 (two) times daily. diclofenac (VOLTAREN) 1% GEL apply 4 grams topically four times a day doxycycline (MONODOX) 100 mg capsule take 1 capsule by mouth twice a day DULoxetine (CYMBALTA) [address] capsule Take 20 mg by mouth Daily. DULoxetine (CYMBALTA) [address] capsule take 1 capsule by mouth once daily fluticasone-salmeterol (ADVAIR, WIXELA INHUB) 500-50 mcg/puff diskus inhaler Inhale 1 B alona into the lungs 2 times daily. gabapentin (NEURONTIN) 300 mg capsule Take 1 capsule by mouth 3 times daily. 90 capsule 1 glimepiride (AMARYL) 4 mg tablet Take 4 mg by mouth every morning (before breakfast). levothyroxine (SYNTHROID) 200 mcg tablet take 1 tablet by mouth every morning before br eakfast lisinopril (PRINIVIL, ZESTRIL) 5 mg tablet take 1 tablet by mouth once daily metFORMIN (GLUCOPHAGE) 1000 MG tablet take 1 tablet by mouth twice a day with meals metoprolol tartrate (LOPRESSOR) 50 mg tablet take 1 tablet by mouth twice a day montelukast (SINGULAIR) 10 mg tablet Take 10 mg by mouth nightly. omeprazole (PRILOSEC) 20 mg capsule Take 20 mg by mouth every morning (before breakfast ). oxyCODONE (ROXICODONE) 5 mg tablet take 1 tablet by mouth three times a day if needed f or pain SPIRIVA HANDIHALER 18 MCG inhalation capsule inhale the contents of one capsule in the handihaler once daily traZODone (DESYREL) 50 mg tablet take 1 tablet by mouth at bedtime 0 Social History Socioeconomic History Marital status: Legally Spouse name: Not on file Number of children: 0 Years of education: Not on file Highest education level: Not on file Occupational History Comment: DISABLED Social Needs Financial resource strain: Not on file Food insecurity: Worry: Not on file Inability: Not on file Transportation needs: Medical: Not on file Non-medical: Not on file Tobacco Use Smoking status: Never Smoker Smokeless tobacco: Never Used Substance and Sexual Activity Alcohol use: No Alcohol/week: 0.0 standard drinks Drug use: No Comment: Drug use: No Sexual activity: Never Lifestyle Physical activity: Days per week: Not on file Minutes per session: Not on file Stress: Not on file Relationships Social connections: Talks on phone: Not on file Gets together: Not on file Attends evangelical service: Not on file Active member of club or organization: Not on file Attends meetings of clubs or organizations: Not on file Relationship status: Not on file Intimate partner violence: Fear of current or ex partner: Not on file Emotionally abused: Not on file Physically abused: Not on file Forced sexual activity: Not on file Other Topics Concern Not on file Social History Narrative Lives in [place] with her brother and father, independent with activities of daily livin g, high fall risk. Has no children quit smoking more than 20 years ago denies alcohol drugs . family history includes Arthritis in her sister; Cancer in her father and father; Diabetes in her brother, maternal aunt, maternal grandmother, mother, and paternal grandmother; Diabe naeem, NIDDM in her mother; Hypertension in her sister; Kidney disease in her mother; No known problems in her maternal grandfather and paternal grandfather. PHYSICAL EXAM VITAL SIGNS BP 121/60 | Pulse 87 | Temp 36.9 C (98.4 F) (Oral) | Resp 18 | Ht 1.6 m (5' 3") | Wt (!) 162.3 kg (357 lb 12.9 oz) | LMP (LMP Unknown) | SpO2 97% | No | BM I 63.38 kg/m Physical Exam Vitals signs and nursing note reviewed. Constitutional: General: She is not in acute distress. Appearance: She is well-developed. She is obese. She is not ill-appearing, toxic-appeari ng or diaphoretic. Comments: Pallor present HENT: Head: Normocephalic and atraumatic. Nose: Nose normal. No congestion or rhinorrhea. Mouth/Throat: Mouth: Mucous membranes are moist. Pharynx: Oropharynx is clear. No oropharyngeal exudate or posterior oropharyngeal erythe ma. Eyes: General: No scleral icterus. Extraocular Movements: Extraocular movements intact. Conjunctiva/sclera: Conjunctivae normal. Pupils: Pupils are equal, round, and reactive to light. Neck: Musculoskeletal: Normal range of motion and neck supple. No neck rigidity or muscular te nderness. Thyroid: No thyromegaly. Vascular: No JVD. Cardiovascular: Rate and Rhythm: Normal rate and regular rhythm. Pulses: Normal pulses. Heart sounds: Normal heart sounds. No murmur. No friction rub. No gallop. Pulmonary: Effort: Pulmonary effort is normal. No respiratory distress. Breath sounds: No wheezing or rales. Comments: Decreased breath sounds on the right mid and lower lung Chest: Chest wall: No tenderness. Abdominal: General: Bowel sounds are normal. There is no distension. Palpations: Abdomen is soft. Tenderness: There is no abdominal tenderness. There is no right CVA tenderness, left CVA tenderness or guarding. Musculoskeletal: General: No tenderness or deformity. Right lower leg: Edema present. Left lower leg: Edema present. Comments: 2+ pitting edema of her legs and feet noted Lymphadenopathy: Cervical: No cervical adenopathy. Skin: General: Skin is warm and dry. Findings: No rash. Neurological: General: No focal deficit present. Mental Status: She is alert and oriented to person, place, and time. Cranial Nerves: No cranial nerve deficit. Sensory: No sensory deficit. Motor: No weakness or abnormal muscle tone. Coordination: Coordination normal. Deep Tendon Reflexes: Reflexes normal. Comments: Gait not tested Psychiatric: Mood and Affect: Mood normal. Behavior: Behavior normal. Thought Content: Thought content normal. Judgment: Judgment normal. DATA No results found for this or any previous visit (from the past 24 hour(s)). Microbiology Results (Last 7) Date with Culture/Sensitivity) No results found for the last 168 hours. IMAGING No results found for this or any previous visit (from the past 360 hour(s)). ASSESSMENT & PLAN Principal Problem: Empyema of pleural space Active Problems: Anemia of chronic disease Essential hypertension, benign Type 2 diabetes mellitus with diabetic nephropathy, without long-term current use of insu rosy Cyanocobalamin deficiency Hypothyroidism Chronic pain syndrome Right lower lobe pneumonia MRSA infection (methicillin-resistant Staphylococcus aureus) Thrombocytosis Hypoalbuminemia COPD (chronic obstructive pulmonary disease) GERD without esophagitis 54 years old female presenting with right lower lobe pneumonia complicated with empyema. S putum cultures grew MRSA. Has leukocytosis. Remains afebrile. Not hypoxic. Has mild pleu ritic chest pain. Admit to acute care. Dr. Walden cardiothoracic surgeon and Dr. Balbina stephenson infectious disease consulted. Ordered IV vancomycin and Levaquin per IDs recommendations. She was tested negative for COVID on 11/11/2019. Was admitted on 0 516 with severe sepsis resolved. Polymicrobial urinary tract infection completed treatment with IV Rocephin. B12 deficiency anemia: Complicated with acute infection. No overt symptoms of bleeding. S he is s/p 2 units of PRBC transfusion yesterday at the outside facility. Thrombocytosis multifactorial reactive secondary to infection and anemia. DVT prophylaxis with subcu heparin ordered. Diabetes mellitus type 2 complicated with diabetic nephropathy hypoalbuminemia bilateral lo wer extremity pitting edema.. Had a hypoglycemic event in a.m. Ordered Accu-Cheks and low- dose insulin sliding scale. Gastroesophageal reflux disease stable without acute esophagitis continue Protonix Former smoker COPD stable without acute exacerbation does not need steroids. Hypothyroidism resume levothyroxine Diabetic neuropathy and chronic pain syndrome resume home meds. Chronic insomnia continue trazodone and melatonin. Incidental finding of spiculated nodules:. Requires repeat CT scan in 6 months. 10 cm in t he upper right anterior lung, 5 mm in the right anterior lung apex. Essential hypertension: Resume home meds.Stable DVT prophylaxis with subcu heparin ordered. Full Code María Elena Blas MD 11/21/2019 6:36 PM docu mented in this encounter Consult Notes Alana Arshad MD - 11/22/2019 9:06 AM PDTAssociated Order(s): PROVIDER TO PROVIDER C ONSULT [facility] Service: Infectious Diseases Initial Consult Note Date of Admission: 11/21/2019 Reason for Consultation: Advice on antibiotics for right lower lobe MRSA pneumonia, suspect ed empyema Requesting Physician: Dr. Rhonda Blas, Hospitalist History Obtained From: Patient, Chart review and Referring MD CHIEF COMPLAINT: Transferred from [facility] for further care of parapneumonic effusio n, suspected empyema HISTORY OF PRESENT ILLNESS The patient is a 54 y.o. female with significant past medical history of type 2 diabetes me llitus, not on insulin, history of smoking in the past, COPD not on home oxygen treatment or chronic steroids, morbid obesity with BMI of 63, hypothyroidism, essential hypertension, ch ronic pain syndrome on Cymbalta, oxycodone and gabapentin and GERD with no acute esophagitis . Penicillin caused shortness of breath in the past. The patient was admitted at [facility] on 11/11/2019 for shortness of breath o f 2 weeks duration and high-grade fevers. On admission, the patient was found to have sever e sepsis with WBC of 35,000, lactic acid of 2.3. She had chest CT scan showing right lower lobe pneumonia with no effusion. COVID-19 testing was reported to be negative. She was samuel quincy on IV ceftriaxone and azithromycin for community-acquired pneumonia. With persistent le ukocytosis, IV vancomycin was added. Sputum culture grew MRSA. During the patient's hospit al admission, she complained of abdominal pain. CT of the abdomen and pelvis was reported t o be unremarkable. On IV vancomycin, WBC trended down to 23,000. She had some symptomatic improvement. The patient was discharged home on 11/16 on p.o. doxycycline [facility] The patient returned to the emergency room within a few hours of discharge for worsening sy mptoms. Chest x-ray showed right-sided pleural effusion. On readmission, the patient's WBC was 22,000. She was continued on p.o. doxycycline. She was described as having nonproduct fernando cough, episodic dyspnea and having no fevers. WBC ranged from 18-20,000. On 11/20, [facility] t CT scan showed loculated right large pleural effusion extending along the medial side of t he lung spanning 20 cm from the apex to the base measuring 3 cm in thickness with enhancing rind, few air bubbles suggestive of empyema. During the hospital admission, patient was als o found to have anemia attributed to infection; she had no overt signs of bleeding. She was transfused 2 units of packed RBCs. Her admission note also indicated that patient had poly microbial urine growth (11/10 urine culture growth of E. coli, Proteus), UTI versus just colo nization; this was reportedly addressed with 7 days of IV ceftriaxone. She was given 2 g of IV vancomycin at [facility] and then transferred to [facility] for CT surgery evaluation. On presentation at [facility] on 11/20, she was described as having mild, nonproductive cough wi th mild chest tightness, intermittent wheezing, mild pleuritic chest pain mild, no fever or hemoptysis. Patient reported having a couple of loose stools but no abdominal pain, nausea or vomiting. Case had been discussed with Dr. Blas at time of admission and the patient was placed on I V vancomycin, target trough of 15-20 with pharmacy dosing per institutional protocol and lev ofloxacin. Linezolid was considered but due to the patient's home medication of duloxetine a nd trazodone and possible serotonin release syndrome with drug interaction, she was not plac ed on the stroke. CT surgery has evaluated the patient's chest CT scan, results outlined below and has recomm ended interventional radiology consultation for pigtail catheter placement and TPA/dornase t reatment. Patient is currently afebrile, hemodynamically stable with oxygen saturation of 96% in room air. She has some discomfort at the right chest, particularly with deep breath and coughin g. She describes her cough is nonproductive. She has no upper respiratory symptoms. She c urrently has nausea but denies vomiting, abdominal pain, diarrhea or constipation. REVIEW OF SYSTEMS Complete review of the constitutional, ENT, cardiovascular, respiratory, gastrointestinal, genitourinary, integumentary, musculoskeletal, psychiatric, neurologic, heme/lymphatic syste ms is entirely negative except as described above in the history of the present illness. Past Medical History: Diagnosis Date Anemia Asthma Asthma Chronic pain syndrome 09/13/2019 Cyanocobalamin deficiency 09/13/2019 Degeneration of lumbar intervertebral disc Degeneration of lumbar or lumbosacral intervertebral disc 09/13/2019 GERD without esophagitis GERD without esophagitis HTN (hypertension) Hyperlipidemia Hypertension Hypothyroidism Hypothyroidism Hypothyroidism 09/13/2019 Idiopathic neuropathy Idiopathic neuropathy Reactive airways dysfunction syndrome (HCC) 09/13/2019 Sprain of deltoid ligament of right ankle, sequela Type 2 diabetes mellitus (HCC) Type 2 diabetes mellitus (HCC) Vitamin B 12 deficiency Past Surgical History: Procedure Laterality Date FOOT SURGERY Left [address] Dr. Anguiano GALLBLADDER SURGERY 1997 [facility] SINUS SURGERY 1998 [facility] Allergies Allergen Reactions Penicillins Shortness Of Breath Shellfish-Derived Products Shortness Of Breath Iodinated Diagnostic Agents Other (See Comments) Medications Prior to Admission Medication Sig Dispense Refill acetaminophen (TYLENOL) 500 mg tablet Take 500 mg by mouth every 6 hours as needed for Pain. albuterol 90 mcg/puff inhaler Inhale 2 puffs into the lungs every 4 (four) hours as nee ded for Wheezing. ascorbic acid (VITAMIN C) 500 MG tablet Take 500 mg by mouth daily. atorvaSTATin (LIPITOR) 10 mg tablet take 1 tablet by mouth once daily 0 capsaicin (ZOSTRIX) 0.025% cream apply topically to affected area four times a day clotrimazole-betamethasone (LOTRISONE) cream Apply topically 2 (two) times daily. diclofenac (VOLTAREN) 1% GEL apply 4 grams topically four times a day doxycycline (MONODOX) 100 mg capsule take 1 capsule by mouth twice a day DULoxetine (CYMBALTA) [address] capsule Take 20 mg by mouth Daily. DULoxetine (CYMBALTA) [address] capsule take 1 capsule by mouth once daily fluticasone-salmeterol (ADVAIR, WIXELA INHUB) 500-50 mcg/puff diskus inhaler Inhale 1 B alona into the lungs 2 times daily. gabapentin (NEURONTIN) 300 mg capsule Take 1 capsule by mouth 3 times daily. 90 capsule 1 glimepiride (AMARYL) 4 mg tablet Take 4 mg by mouth every morning (before breakfast). levothyroxine (SYNTHROID) 200 mcg tablet take 1 tablet by mouth every morning before br eakfast lisinopril (PRINIVIL, ZESTRIL) 5 mg tablet take 1 tablet by mouth once daily metFORMIN (GLUCOPHAGE) 1000 MG tablet take 1 tablet by mouth twice a day with meals metoprolol tartrate (LOPRESSOR) 50 mg tablet take 1 tablet by mouth twice a day montelukast (SINGULAIR) 10 mg tablet Take 10 mg by mouth nightly. omeprazole (PRILOSEC) 20 mg capsule Take 20 mg by mouth every morning (before breakfast ). oxyCODONE (ROXICODONE) 5 mg tablet take 1 tablet by mouth three times a day if needed f or pain SPIRIVA HANDIHALER 18 MCG inhalation capsule inhale the contents of one capsule in the handihaler once daily traZODone (DESYREL) 50 mg tablet take 1 tablet by mouth at bedtime 0 Scheduled Medications ascorbic acid 500 mg Oral Daily atorvaSTATin 10 mg Oral Nightly budesonide-formoterol 2 puff Inhalation RT BID capsaicin Topical 4x Daily diclofenac 2 g Topical 4x Daily DULoxetine 60 mg Oral Daily gabapentin 300 mg Oral TID heparin 5,000 Units Subcutaneous 3 times per day insulin lispro 0-6 Units Subcutaneous 4x Daily WC and HS levoFLOXacin 750 mg Intravenous Daily levothyroxine 176 mcg Oral QAM AC lisinopril 5 mg Oral Daily metoprolol tartrate 50 mg Oral BID montelukast 10 mg Oral Nightly nystatin Topical BID pantoprazole 40 mg Oral QAM AC tiotropium 2 puff Inhalation RT Daily traZODone 100 mg Oral Nightly vancomycin 15 mg/kg (Adjusted) Intravenous Q12H vancomycin per pharmacy Other Pharmacy Consult Continuous Infusions dextrose 10% PRN Medications acetaminophen, albuterol, albuterol, Hypoglycemia Management AND POCT Glucose AND d extrose AND dextrose 10%, docusate sodium, melatonin, ondansetron, oxyCODONE, polyethyle ne glycol, senna Family History Problem Relation Age of Onset Cancer Father Diabetes Mother Kidney disease Mother No known problems Paternal Grandfather Diabetes Paternal Grandmother No known problems Maternal Grandfather Diabetes Maternal Grandmother Diabetes Brother Arthritis Sister Hypertension Sister Diabetes Maternal Aunt Diabetes, NIDDM Mother Cancer Father Social History Socioeconomic History Marital status: Legally Spouse name: Not on file Number of children: 0 Years of education: Not on file Highest education level: Not on file Occupational History Comment: DISABLED Tobacco Use Smoking status: Never Smoker Smokeless tobacco: Never Used Substance and Sexual Activity Alcohol use: No Alcohol/week: 0.0 standard drinks Drug use: No Comment: Drug use: No Sexual activity: Never Social History Narrative Lives in [place] with her brother and father, independent with activities of daily livin g, high fall risk. Has no children quit smoking more than 20 years ago denies alcohol drugs . PHYSICAL EXAM Vital Signs: BP 157/81 | Pulse 85 | Temp 36.6 C (97.9 F) (Oral) | Resp 20 | Ht 1.6 m (5' 3") | Wt (!) 162.3 kg (357 lb 12.9 oz) | LMP (LMP Unknown) | SpO2 96% | No | BM I 63.38 kg/m Temp: [36.3 C (97.4 F)-36.9 C (98.4 F)] 36.6 C (97.9 F) Pulse: [74-87] 85 Resp: [18-20] 20 BP: (116-157)/(59-81) 157/81 Vital signs have been reviewed General: Pleasant female, not in acute physical distress. Sitting at the side of her bed HEENT: Normocephalic. Anicteric sclera. Conjunctival pallor is noted. EOM intact. No na juhi mucosal lesions. No sinus tenderness. No tragal tenderness. Moist oral mucosa with no oral thrush or ulcers. Supple neck with no cervical lymphadenopathy No chest wall tenderness to palpation Lungs: Dull percussion noted at the right lung field. Few rales at the right lung base. De creased breath sounds at the right mid and lower lung field compared to the left side. No w heezes rhonchi Cardiovascular: Normal rate. Regular rhythm. No murmur or rubs Abdomen: No distention. Soft. No tenderness, rebound or guarding Skin: No rash. Peripheral IV site with no signs of inflammation Ecchymotic lesions in varying stages noted at both upper extremities Musculoskeletal: No inflamed-looking joints Grade 1 bipedal edema Neurologic: Oriented x3. Motor strength intact upper and lower extremities Psychiatric: Appropriate mood and affect DATA CBC: Lab Results Component Value Date WBC 17.08 (H) 11/22/2019 RBC 3.60 (L) 11/22/2019 RBC 4.83 10/27/2017 HGB 9.4 (L) 11/22/2019 HCT 30.6 (L) 11/22/2019 MCV 85.0 11/22/2019 MCH 26.1 (L) 11/22/2019 MCHC 30.7 (L) 11/22/2019 RDW 18.5 (A) 08/04/2019 PLT 570 (H) 11/22/2019 MPV 10.5 11/22/2019 DIFFTYPE MANUAL 11/22/2019 CMP: Lab Results Component Value Date NA 139 11/22/2019 K 4.1 11/22/2019 CL 103 11/22/2019 CO2 30 11/22/2019 ANIONGAP 10 11/22/2019 GLUF 224 (A) 10/27/2017 BUN 16 11/22/2019 GLOB 3.9 (A) 08/04/2019 AGRATIO 1.2 11/22/2019 BILITOT 0.3 11/04/2016 AST 25 11/22/2019 ALT 26 11/22/2019 EGFR 52 (L) 11/22/201911/20 Creatinine 1; current creatinine 1.10 Microbiology: None in this admission Imaging: Chest CT scan with IV contrast on 11/20 CT scan of the chest with IV contrast 11/21/2019 findings consistent with right pneumonia a nd right empyema. Slightly spiculated right lung nodules for which follow-up CT is recommen ded in 6 months Medical record review: I have reviewed the patient's admission history and physical as well as progress notes from the current hospital stay. Emergency department notes have also been reviewed. Much of this information is summarized above in history of present illness. PROBLEM LIST Principal Problem: Empyema of pleural space Active Problems: Anemia of chronic disease Essential hypertension, benign Type 2 diabetes mellitus with diabetic nephropathy, without long-term current use of insu rosy Cyanocobalamin deficiency Hypothyroidism Chronic pain syndrome Right lower lobe pneumonia MRSA infection (methicillin-resistant Staphylococcus aureus) Thrombocytosis Hypoalbuminemia COPD (chronic obstructive pulmonary disease) GERD without esophagitis Pulmonary nodules Resolved Problems: * No resolved hospital problems. * ASSESSMENT & PLAN Principal Problem: Empyema of pleural space Active Problems: Anemia of chronic disease Essential hypertension, benign Type 2 diabetes mellitus with diabetic nephropathy, without long-term current use of insu rosy Cyanocobalamin deficiency Hypothyroidism Chronic pain syndrome Right lower lobe pneumonia MRSA infection (methicillin-resistant Staphylococcus aureus) Thrombocytosis Hypoalbuminemia COPD (chronic obstructive pulmonary disease) GERD without esophagitis Pulmonary nodules Resolved Problems: * No resolved hospital problems. * Loculated right pleural effusion/empyema in a patient with known MRSA pneumonia -Patient is currently not septic -Prior sputum culture grew MRSA with blood culture showing no growth -COVID-19 testing on 11/10 had been negative -Patient is currently hemodynamically stable; oxygen saturation stable in room air -She is on IV vancomycin with target trough of 15-20 and levofloxacin; linezolid considere d but not prescribed because of risk for serotonin release syndrome/drug interaction. Discu ssed with patient that there is a possibility that she may need IV antibiotics on discharge -CT surgery has been consulted with recommendation for chest tube placement under Interven tional Radiology -Chest CT scan also showed spiculated nodules; follow-up chest CT scan has been recommende d in 6 months History of bacteriuria, ? UTI -Patient currently has no symptoms of urinary tract infection Thrombocytosis -Most likely reactive; monitor Type 2 diabetes mellitus -Specifics of management per hospitalist service Nausea -anti-emetics prn Case discussed with hospitalist at time of admission and with nursing staff at time of clin ical encounter Code Status: Full Code Primary Care Physician: Roberth Gaspar MD Thank you for allowing me to participate in the care of this patient. I will continue to follow with you. Alana Arshad MD 11/22/2019 rancesco Stanley PA - 11/22/2019 7:11 AM PDTAssociated Order(s): PROVIDER TO PROVIDER CONSULTFormatting of t his note might be different from the original. [facility] Cardiothoracic Surgery CONSULTATION NOTE Pt. Name/Age/: Phoenix Dangelo 54 y.o. 1965 Date of Admission: 11/21/2019 Date of Consultation: 11/22/2019 Requesting/Referring Physician: Dr Blas Reason for Consultation: Opinion and advice regarding R-sided Empyema Assessment and Recommendations: Patient seen with Dr. Walden. She is on room air currently and not complaining of shortne ss of breath this morning, complaining of right-sided pain. She is not a good surgical cand idate at this time due to her morbid obesity. She is also afebrile and with WBCs trending d own. Recommend: -IR place pigtail catheter into fluid collection -TPA/Dornase therapy We will continue to follow. 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, without long-term current use of in sulin Reactive airways dysfunction syndrome Cyanocobalamin deficiency Degeneration of lumbar or lumbosacral intervertebral disc Hypothyroidism Osteoarthrosis, hip Chronic pain syndrome Empyema of pleural space Right lower lobe pneumonia MRSA infection (methicillin-resistant Staphylococcus aureus) Thrombocytosis Hypoalbuminemia COPD (chronic obstructive pulmonary disease) GERD without esophagitis Pulmonary nodules History of Present Illness: Information is gathered from patient and past medical records Pt is a morbidly obese 54yo F with significant past medical history of diabetes type 2 not on insulin, former smokers COPD not on home oxygen, hypothyroidism, essential hypertension, chronic pain syndrome. Patient was admitted to [facility] on November 11, 2019 wit h chief complaint of sore shortness of breath which is been going on for 2 weeks prior to ho spitalization. She had also had high-grade fevers. She was found to have right lower lobe MRSA pneumonia with empyema, and was transferred to our hospital for higher level of care. Please see hospitalist note for further details. CT scan shows findings consistent with rig ht lower lobe pneumonia and empyema. Past Medical History: Past Medical History: Diagnosis Date Anemia Asthma Asthma Chronic pain syndrome 09/13/2019 Cyanocobalamin deficiency 09/13/2019 Degeneration of lumbar intervertebral disc Degeneration of lumbar or lumbosacral intervertebral disc 09/13/2019 GERD without esophagitis GERD without esophagitis HTN (hypertension) Hyperlipidemia Hypertension Hypothyroidism Hypothyroidism Hypothyroidism 09/13/2019 Idiopathic neuropathy Idiopathic neuropathy Reactive airways dysfunction syndrome (HCC) 09/13/2019 Sprain of deltoid ligament of right ankle, sequela Type 2 diabetes mellitus (HCC) Type 2 diabetes mellitus (HCC) Vitamin B 12 deficiency Past Surgical History: Procedure Laterality Date FOOT SURGERY Left 2000 Dr. Anguiano GALLBLADDER SURGERY 1997 [facility] SINUS SURGERY 1998 [facility] Allergies: Allergies Allergen Reactions Penicillins Shortness Of Breath Shellfish-Derived Products Shortness Of Breath Iodinated Diagnostic Agents Other (See Comments) Home Medications: Medications Prior to Admission Medication Sig Dispense Refill acetaminophen (TYLENOL) 500 mg tablet Take 500 mg by mouth every 6 hours as needed for Pain. albuterol 90 mcg/puff inhaler Inhale 2 puffs into the lungs every 4 (four) hours as nee ded for Wheezing. ascorbic acid (VITAMIN C) 500 MG tablet Take 500 mg by mouth daily. atorvaSTATin (LIPITOR) 10 mg tablet take 1 tablet by mouth once daily 0 capsaicin (ZOSTRIX) 0.025% cream apply topically to affected area four times a day clotrimazole-betamethasone (LOTRISONE) cream Apply topically 2 (two) times daily. diclofenac (VOLTAREN) 1% GEL apply 4 grams topically four times a day doxycycline (MONODOX) 100 mg capsule take 1 capsule by mouth twice a day DULoxetine (CYMBALTA) [address] capsule Take 20 mg by mouth Daily. DULoxetine (CYMBALTA) [address] capsule take 1 capsule by mouth once daily fluticasone-salmeterol (ADVAIR, WIXELA INHUB) 500-50 mcg/puff diskus inhaler Inhale 1 B alona into the lungs 2 times daily. gabapentin (NEURONTIN) 300 mg capsule Take 1 capsule by mouth 3 times daily. 90 capsule 1 glimepiride (AMARYL) 4 mg tablet Take 4 mg by mouth every morning (before breakfast). levothyroxine (SYNTHROID) 200 mcg tablet take 1 tablet by mouth every morning before br eakfast lisinopril (PRINIVIL, ZESTRIL) 5 mg tablet take 1 tablet by mouth once daily metFORMIN (GLUCOPHAGE) 1000 MG tablet take 1 tablet by mouth twice a day with meals metoprolol tartrate (LOPRESSOR) 50 mg tablet take 1 tablet by mouth twice a day montelukast (SINGULAIR) 10 mg tablet Take 10 mg by mouth nightly. omeprazole (PRILOSEC) 20 mg capsule Take 20 mg by mouth every morning (before breakfast ). oxyCODONE (ROXICODONE) 5 mg tablet take 1 tablet by mouth three times a day if needed f or pain SPIRIVA HANDIHALER 18 MCG inhalation capsule inhale the contents of one capsule in the handihaler once daily traZODone (DESYREL) 50 mg tablet take 1 tablet by mouth at bedtime 0 Current Medications: Current Facility-Administered Medications Medication Dose Route Frequency Provider Last Rate Last Dose acetaminophen (TYLENOL) tablet 650 mg 650 mg Oral Q6H PRN Kalavati Paila, MD 650 mg at 11/22/19 0527 albuterol 90 mcg/puff inhaler 2 puff 2 puff Inhalation RT Q4H PRN María Elena Blas MD ascorbic acid (VITAMIN C) tablet 500 mg 500 mg Oral Daily María Elena Blas MD atorvaSTATin (LIPITOR) tablet 10 mg 10 mg Oral Nightly María Elena Blas MD 10 mg at 0 11/21/19 214 budesonide-formoterol (SYMBICORT) 160-4.5 mcg/puff inhaler 2 puff 2 puff Inhalation RT BID María Elena Blas MD 2 puff at 11/21/19 214 capsaicin (ZOSTRIX) 0.025% cream Topical 4x Daily María Elena Blas MD dextrose 50% injection 12.5-25 g 12.5-25 g Intravenous PRN María Elena Blas MD And dextrose 10% (D10W) infusion Intravenous Continuous PRN María Elena Blas MD diclofenac (VOLTAREN) 1% gel 2 g 2 g Topical 4x Daily María Elena Blas MD 2 g at 10/27 12/15 215 docusate sodium (COLACE) capsule 100 mg 100 mg Oral BID PRN María Elena Blas MD DULoxetine (CYMBALTA) DR capsule 60 mg 60 mg Oral Daily María Elena Blas MD gabapentin (NEURONTIN) capsule 300 mg 300 mg Oral TID María Elena Blas MD 300 mg at 0 11/21/19 214 heparin 5,000 units/mL injection 5,000 Units 5,000 Units Subcutaneous 3 times per day María Elena Blas MD Stopped at 11/22/19 0616 insulin lispro (humaLOG) injection (vial) 0-6 Units 0-6 Units Subcutaneous 4x Daily WC and HS María Elena Blas MD levoFLOXacin in dextrose (LEVAQUIN) IVPB 750 mg 750 mg Intravenous Daily María Elena santos MD 100 mL/hr at 11/21/192202 750 mg at 11/21/19 220 levothyroxine (SYNTHROID) tablet 176 mcg 176 mcg Oral QAM AC María Elena Blas MD Stop ped at 11/22/19 0730 lisinopril (PRINIVIL, ZESTRIL) tablet 5 mg 5 mg Oral Daily María Elena Blas MD melatonin tablet 3 mg 3 mg Oral Nightly PRN María Elena Blas MD metoprolol tartrate (LOPRESSOR) tablet 50 mg 50 mg Oral BID María Elena Blas MD 50 mg at 11/21/192147 montelukast (SINGULAIR) tablet 10 mg 10 mg Oral Nightly María Elena Blas MD 10 mg at 11/21/192147 nystatin (MYCOSTATIN) cream Topical BID María Elena Blas MD ondansetron (ZOFRAN) injection 4 mg 4 mg Intravenous Q6H PRN María Elena Blas MD 4 mg at 11/21/191940 oxyCODONE (ROXICODONE) tablet 5 mg 5 mg Oral Q6H PRN María Elena Blas MD 5 mg at 10/27 pantoprazole (PROTONIX) DR tablet 40 mg 40 mg Oral QAM AC María Elena Blas MD Stopped at 11/22/19 07 polyethylene glycol (MIRALAX) powder 17 g 17 g Oral Daily PRN María Elena Blas MD senna (SENOKOT) tablet 8.6 mg 8.6 mg Oral BID PRN María Elena Blas MD tiotropium (SPIRIVA RESPIMAT) 2.5 mcg/puff inhaler 2 puff 2 puff Inhalation RT Daily K alexander Blas MD traZODone (DESYREL) tablet 100 mg 100 mg Oral Nightly María Elena Blas MD 100 mg at 0 11/21/192147 vancomycin in NS (VANCOCIN) IVPB 1,500 mg 15 mg/kg (Adjusted) Intravenous Q12H Nita Salvador, [facility] vancomycin per pharmacy Other Pharmacy Consult María Elena Blas MD Family History: Family History Problem Relation Age of Onset Cancer Father Diabetes Mother Kidney disease Mother No known problems Paternal Grandfather Diabetes Paternal Grandmother No known problems Maternal Grandfather Diabetes Maternal Grandmother Diabetes Brother Arthritis Sister Hypertension Sister Diabetes Maternal Aunt Diabetes, NIDDM Mother Cancer Father Social History: Social History Socioeconomic History Marital status: Legally Spouse name: Not on file Number of children: 0 Years of education: Not on file Highest education level: Not on file Occupational History Comment: DISABLED Social Needs Financial resource strain: Not on file Food insecurity: Worry: Not on file Inability: Not on file Transportation needs: Medical: Not on file Non-medical: Not on file Tobacco Use Smoking status: Never Smoker Smokeless tobacco: Never Used Substance and Sexual Activity Alcohol use: No Alcohol/week: 0.0 standard drinks Drug use: No Comment: Drug use: No Sexual activity: Never Lifestyle Physical activity: Days per week: Not on file Minutes per session: Not on file Stress: Not on file Relationships Social connections: Talks on phone: Not on file Gets together: Not on file Attends evangelical service: Not on file Active member of club or organization: Not on file Attends meetings of clubs or organizations: Not on file Relationship status: Not on file Intimate partner violence: Fear of current or ex partner: Not on file Emotionally abused: Not on file Physically abused: Not on file Forced sexual activity: Not on file Other Topics Concern Not on file Social History Narrative Lives in [place] with her brother and father, independent with activities of daily livin g, high fall risk. Has no children quit smoking more than 20 years ago denies alcohol drugs . Review of Systems: Constitutional: Positive for appetite change. Negative for activity change, chills, diaphor esis, fatigue, fever and unexpected weight change. HENT: Negative for postnasal drip, rhinorrhea, sinus pressure, sore throat and trouble swal lowing. Eyes: Negative for visual disturbance. Respiratory: Positive for cough, chest tightness and shortness of breath. Negative for apne a and wheezing. Cardiovascular: Positive for chest pain and leg swelling. Negative for palpitations. Gastrointestinal: Positive for diarrhea. Negative for abdominal distention, abdominal pain, blood in stool, constipation, nausea and vomiting. Endocrine: Negative for polydipsia, polyphagia and polyuria. Genitourinary: Negative for difficulty urinating, dysuria, flank pain, hematuria and urgenc y. Musculoskeletal: Positive for myalgias. Negative for gait problem, neck pain and neck stiff ness. Skin: Negative for rash and wound. Allergic/Immunologic: Negative for immunocompromised state. Neurological: Negative for dizziness, seizures, syncope, facial asymmetry, speech difficult y, weakness, numbness and headaches. Hematological: Negative for adenopathy. Does not bruise/bleed easily. Psychiatric/Behavioral: Negative for agitation, confusion, hallucinations, sleep disturbanc e and suicidal ideas. The patient is not nervous/anxious. Exam: Most Recent Vital Signs: Temp: 36.5 C (97.7 F) BP: 116/59 Pulse: 74 Resp: 20 SpO2: 94 % on Min/Max Temp past 24 hours:Temp Av.6 C (97.8 F) Min: 36.3 C (97.4 F) Max: 3 6.9 C (98.4 F) Weight most recent: Weight: (!) 162.3 kg (357 lb 12.9 oz) BMI: Body mass index is 63 .38 kg/m. Physical Examination: General: WF, NAD HEENT: Normocephalic and atraumatic. Cardiovascular: RRR, no murmur Respiratory: Normal effort, Decreased breath sounds R mid/lower lung Abdomen: NBS Neurological: No focal motor or sensory deficits Psychiatric: Mood and affect normal Diagnostic Studies: Available Labs and Images were reviewed personally. Significant resul ts and findings are addressed below or in the Assessment and Plan. Electronically signed by: PETER Britt 11/22/2019 7:12 AM [facility] Associated attestation - Akhil Walden MD - 11/22/2019 7:53 AM PDTPatient was seen, exami iraida, labs, x-rays, treatment plan reviewed. CT scan shows loculated pocket of fluid Recommend IR consult for Pigtail catheter.documented in this encounter Miscellaneous Notes Plan of Care - Bev Rico RN - 11/29/2019 1:09 PM PDT Problem: Adult Inpatient Plan of Care Goal: Plan of Care Review Outcome: Met Goal: Patient-Specific Goal Outcome: Met Goal: Absence of Hospital-Acquired Illness or Injury Outcome: Met Goal: Optimal Comfort and Wellbeing Outcome: Met Goal: Readiness for Transition of Care Outcome: Met Goal: Rounds/Family Conference Outcome: Met Problem: Fall Injury Risk Goal: Absence of Fall and Fall-Related Injury Outcome: Met Problem: Infection Goal: Infection Symptom Resolution Outcome: Met Problem: Skin Injury Risk Increased Goal: Skin Health and Integrity Outcome: Met Pt to discharge to [facility] bed. To leave PICC line in for continued antibiotic treatment. Report called to nurse Limon. All questions answered. D/C per taxi at 1400. E lectronically signed by Bev Rico RN at 11/29/2019 2:01 PM PDTPlan of Jef Celestin MSW - 11/29/2019 1:02 PM PDTCare Management SNF/LTACH Final Discharge Plan Readmission Risk: Medium Discharge Plan Planned Disposition: Swing bed Planned Destination: [facility] Swing [facility] [place] of Choice: YES Facility Information: Address: [address] [place] [address] Community Care Provider: Dr. Romero Patient/Family Notified: yes Transportation will be provided by: taxi, other (comment)([employer] - [phone]) Transportation Date/Time: taxi, other (comment)([employer] - [phone]) 1400 Ride Contact: Name: [employer] [phone] Phone: [employer] [phone] Confirmed 3 Qualifying Midnights: yes SNF Authorization Received: yes Benefits and Co-Pays: none at this time - already obtained [employer] Authorization PASRR Completed: yes Electronically signed: KOREY CASTRO 11/29/2019 1:02 PM lan of Jef Green MSW - 11/29/2019 8:34 AM PDTDISCHARGE PLANNING FURNACE PROCESS SUPERVISOR p/c msg with Anthony Davison, Admissions at [facility] Bed ([phone] ph, fax) regarding status of insurance authorization from [employer] [place] [employer], with hopes of obtaining it this morning to discharge today. FURNACE PROCESS SUPERVISOR p/c msg with Debra Combs, Admissions at [facility] Bed ([phone] ph). FURNACE PROCESS SUPERVISOR p/c with Debra Combs, Admissions at [facility] Swing Bed ([phone] ph) states their census went high last night and unable to accept this Pt today. FURNACE PROCESS SUPERVISOR met with Pt regarding this update about [place] and Pt states her preference is now (a) [facility] Swing Bed. and (b) [facility] [place]. FURNACE PROCESS SUPERVISOR p/c left msg with Rhondi, admissions at [facility] [place] regarding ref erral, FURNACE PROCESS SUPERVISOR p/c with Taisha Michael, [facility] Swing Bed Program, states will consider Pt , reviewing referral. States they have open beds, and we already have insurance auth from [facility] [phone] ph. FURNACE PROCESS SUPERVISOR p/c with Rhondi with [facility], states they already have insurance auth f rom [facility] [phone] ph, DCP: Pending placement at [facility] Swing Bed Program. If Pt goes to [facility] Swing Bed, Pt will need transportation from [email or web address] [phone], they often ask for 24 hrs Avoidable days documented for delay with insurance authorization for [facility]. KOREY CASTRO [phone] cell lan of Care - Jonathon Lu, PT - 11/29/2019 7:32 AM PDT Physical Therapy Treatment Note Recommended discharge disposition: intermediate facility Post discharge physical therapy recommendation: will benefit from structured setting Equipment Recommendations: (TBD by SNF) Barriers to community-based discharge Physical Impairment and Fall risk Recommended Frequency: 3 times/wk for 7 days with reassessment due by 12/06/19 Summary: pt. supine in bed when therapist arrived and agreeable to PT. pt. reports that h er feet have been hurting more so she didn't ambulate anymore after therapy worked with her yesterday. Educated pt. on the importance of mobility even short bits of ambulation being b sergo then nothing. pt. reports SOB with ambulation today but was in the 90's which checked . RN alerted of pt's report. pt. should benefit from continued skilled PT after d/c. Precautions Precautions/Limitations: falls Bed Mobility Bed Mobility Comments: Extra time needed for bed mobility Additional Documentation: supine to/from sit Assistive Device: none Supine to Sit, Level of Lyford: modified independent Safety Issues: decreased use of legs for bridging/pushing Transfers Additional Documentation: sit to/from stand Sit-Stand, Level of Lyford: contact guard assist Stand-Sit, Level of Lyford: contact guard assist [id number], Assistive Device: 4 wheeled walker (4WW) Impairments: impaired balance Gait Level of Lyford: contact guard assist Assistive Device: 4 wheeled walker (4WW) Distance (feet): 50 x 2 Impairments: impaired balance Goals Reflects last filed data and may be from multiple contributors. Gait Goal Most Recent Value LTG Status not met, continued at 11/29/2019 0732 LTG Lyford Level modified independent at 11/29/2019 0732 LTG Assistive Device cane (straight, single point) at 11/29/2019 0732 LTG Distance (feet) 150 at 11/29/2019 0732 Stair Goal Most Recent Value LTG Status not met, continued at 11/29/2019 0732 LTG [place] Level stand by assist at 11/29/2019 0732 LTG Assistive Device 1 rail at 11/29/2019 0732 LTG Number of Stairs 2 at 11/29/2019 0732 PT Time Calculation Individual Start Time: 0732 Individual Stop Time: 0802 Individual Total Time: 30 PT Total Treatment Time: 30 lan of Care - Renetta Badillo RN - 11/28/2019 10:35 PM PDT Problem: Adult Inpatient Plan of Care Goal: Plan of Care Review Outcome: Ongoing, progressing Goal: Absence of Hospital-Acquired Illness or Injury Outcome: Ongoing, progressing Goal: Optimal Comfort and Wellbeing Outcome: Ongoing, progressing Problem: Fall Injury Risk Goal: Absence of Fall and Fall-Related Injury Outcome: Ongoing, progressing Problem: Skin Injury Risk Increased Goal: Skin Health and Integrity Outcome: Ongoing, progressing lan of Care - Adriana Keenan RN - 11/28/2019 5:19 PM PDT Problem: Fall Injury Risk Goal: Absence of Fall and Fall-Related Injury Outcome: Ongoing, progressing Pt remains fall free this shift. VS stable. BP's remain 100-110's. Pt worked with PT and walked in hallways with 4WW. CT rem madina, pt reports pain is now tolerable. She received PRN's for her chronic pain. D/c orders in however awaiting insurance auth for swing bed. Chart check complete. Adriana Mcnulty, RN lan of Care - Jonathon Haji PT - 11/28/2019 12:40 PM PDT Physical Therapy Treatment Note Recommended discharge disposition: intermediate facility Post discharge physical therapy recommendation: home health Equipment Recommendations: (TBD by SNF) Barriers to community-based discharge Physical Impairment, Level of assistance for ADLs/mobility, and Fall risk Recommended Frequency: 3 times/wk for 7 days with reassessment due by 11/29/19 Summary: pt. sitting in recliner when therapist arrived and agreeable to PT. Chest tube p ulled this morning and pt reports feeling much better. 4WW obtained as pt. reports she has felt unsteady recently and thinks its due to swelling in her feet and not being up very much lately. pt. ambulates well but fatigues quickly. Encouraged pt. to ambulate with staffing operations manager multiple times throughout the day. Precautions Precautions/Limitations: falls Transfers Additional Documentation: sit to/from stand Sit-Stand, Level of Lyford: contact guard assist Stand-Sit, Level of Lyford: contact guard assist [id number]-Bof, Assistive Device: 4 wheeled walker (4WW) Impairments: impaired balance Gait Level of Lyford: contact guard assist Assistive Device: 4 wheeled walker (4WW) Distance (feet): 40 x 2 Additional Documentation: safety, impairments Impairments: impaired balance Goals Reflects last filed data and may be from multiple contributors. Gait Goal Most Recent Value LTG Lyford Level modified independent at 11/22/2019 1045 LTG Assistive Device cane (straight, single point) at 11/22/2019 1045 LTG Distance (feet) 150 at 11/22/2019 1045 Stair Goal Most Recent Value LTG Lyford Level stand by assist at 11/22/2019 1045 LTG Assistive Device 1 rail at 11/22/2019 1045 LTG Number of Stairs 2 at 11/22/2019 1045 PT Time Calculation Individual Start Time: 1240 Individual Stop Time: 1305 Individual Total Time: 25 PT Total Treatment Time: 25 NF Transfer - Romario Longoria MD - 11/28/2019 11:56 AM PDTFormatting of this note might be different from th e original. SKILLED/INTERMEDIATE NURSING FACILITY TRANSFER ORDERS Patient: Phoenix Dangelo : 1965 Date of Admission: 11/21/2019 Date of Discharge: 11/29/2019 Primary Care Provider: Remi Talley MD Admitting Provider: María Elena Blas MD Discharging Provider: Romario Rodrigez MD Transferring Medical Center: Receiving Facility: [facility] Provider after Transfer: PCP NURSE ASSESSMENT Recent Height & Weight Height: 160 cm (5' 3") Weight: (!) 162.3 kg (357 lb 12.9 oz) Body mass index is 63.38 kg/m. Allergies Allergies Allergen Reactions Penicillins Shortness Of Breath Shellfish-Derived Products Shortness Of Breath Iodinated Diagnostic Agents Other (See Comments) Active Infections No active infections Active Isolation Precautions None PHYSICIAN REPORT Discharge Diagnoses Principal Problem: Sepsis Active Problems: Anemia of chronic disease Essential hypertension, benign Type 2 diabetes mellitus with diabetic nephropathy, without long-term current use of insu rosy Cyanocobalamin deficiency Hypothyroidism Empyema of pleural space Right lower lobe pneumonia Thrombocytosis COPD (chronic obstructive pulmonary disease) Weakness generalized Consultants infectious disease Operations/Major Procedures thoracentesis with chest tube placement Advance Care Planning Code status: Attempt CPR PHYSICIAN TRANSFER ORDERS Activity Weight bearing as tolerated Therapies PT evaluation and management Diet Diet and Supplements Diet Diet consistent carb; 60 gm CARB/Meal; Effective Now Number of Occurrences: Until Specified Order Questions: Type Diet consistent carb Carbohydrate restrictions 60 gm CARB/Meal Aspiration Precautions Avoid rushed or forced feeding Respiratory Care Oxygen Therapy Not applicable Noninvasive Positive Pressure Ventilation Not applicable Other Respiratory Orders Not applicable Bladder Care Urinary Catheter Management Not applicable Urinary Retention Assessment and Management Not applicable Lines, Ostomies, and Drains (to be managed by nursing protocol) IV Access Not applicable Dialysis Access Not applicable Ostomies Not applicable Drains Not applicable Wound Care General Not applicable Wound Vac Management Not applicable Labs/Imaging Finger Stick Glucose Checks Not applicable PT/INR Monitoring Not applicable Other Studies Not applicable Recommended Facility Nursing Protocols and Procedures Skin care Medication Orders New Medications Details Order Next Dose Due aspirin 81 MG EC tablet Take 1 tablet by mouth Daily. By: Romario Rodrigez MD Quant: 30 tablet ceftaroline (TEFLARO) 600 mg in sodium chloride 0.9% 50 mL Inject 600 mg into the vein every 12 hours for 10 days. Indications: Community Acquired Pn eumonia, MRSA pneumonia, empyema By: Alana Arshad MD Quant: 1 each oxyCODONE-acetaminophen 5-325 mg per tablet Take 1 tablet by mouth every 6 hours as needed for Pain. aka: PERCOCET By: Romario Rodrigez MD Quant: 15 tablet Changed Medications Details Order Next Dose Due DULoxetine [address] capsule take 1 capsule by mouth once daily What changed: Another medication with the same name was removed. Continue taking this medi cation, and follow the directions you see here. aka: CYMBALTA Unchanged Medications Details Order Next Dose Due acetaminophen 500 mg tablet Take 500 mg by mouth every 6 hours as needed for Pain. aka: TYLENOL albuterol 90 mcg/puff inhaler Inhale 2 puffs into the lungs every 4 (four) hours as needed for Wheezing. ascorbic acid 500 mg tablet Take 500 mg by mouth daily. aka: VITAMIN C atorvaSTATin 10 mg tablet take 1 tablet by mouth once daily aka: LIPITOR capsaicin 0.025% cream apply topically to affected area four times a day aka: ZOSTRIX diclofenac 1% Gel apply 4 grams topically four times a day aka: VOLTAREN fluticasone-salmeterol 500-50 mcg/puff diskus inhaler Inhale 1 Blister into the lungs 2 times daily. aka: ADVAIR, WIXELA INHUB gabapentin 300 mg capsule Take 1 capsule by mouth 3 times daily. aka: NEURONTIN By: Oc Mooney MD Quant: 90 capsule glimepiride 4 mg tablet Take 4 mg by mouth every morning (before breakfast). aka: AMARYL levothyroxine 200 mcg tablet take 1 tablet by mouth every morning before breakfast aka: SYNTHROID lisinopril 5 mg tablet take 1 tablet by mouth once daily aka: PRINIVIL, ZESTRIL metoprolol tartrate 50 mg tablet take 1 tablet by mouth twice a day aka: LOPRESSOR montelukast 10 mg tablet Take 10 mg by mouth nightly. aka: SINGULAIR omeprazole 20 mg capsule Take 20 mg by mouth every morning (before breakfast). aka: priLOSEC SPIRIVA HANDIHALER 18 mcg inhalation capsule Generic drug: tiotropium inhale the contents of one capsule in the handihaler once daily traZODone 50 mg tablet take 1 tablet by mouth at bedtime aka: DESYREL Discontinued Medications clotrimazole-betamethasone cream aka: LOTRISONE doxycycline 100 mg capsule aka: MONODOX metFORMIN 1000 MG tablet aka: GLUCOPHAGE oxyCODONE 5 mg tablet aka: ROXICODONE TB screening: Upon admission, the 1st and 2nd step TST will be done as per protocol if the resident has no history of TB or a past positive TST. A pharmacist may substitute an equivalent prescription based on the facility or insurance f ormulary as needed unless otherwise specified by the ordering physician. Please write "MOI" (Dispense as written) if a medication should not be substituted. Please make sure to associate a diagnosis for medications that are being continued upon tra nsfer, enter a stop date for antibiotic orders, and include a sig with dose, route, and sche dule for each medication. Discharge Instructions Incidental finding of spiculated nodules: 10 cm in the upper right anterior lung, 5 mm in the right anterior lung apex. Requires repeat CT scan in 6 months. Follow-Up Appointments House provider in 3-5 days [facility] INFECTIOUS DIS[facility] [address] [facility] [phone] On 12/07/2019 follow up infection/pneumonia Remi Talley MD [address] [phone] Schedule an appointment as soon as possible for a visit in 1 week hospital follow up Certification I certify that the following level of post-hospital care is medically necessary on a contin uing basis for any of the conditions for which she received care during this hospitalization : Skilled ([facility] with 24-hour skilled RN service) Physician to physician done with Dr. Romero on 11/29/19 Electronically signed by: Romario Rodrigez MD 11/29/2019 1:12 PM NURSING FACILITY USE ONLY Admitting orders verbally reviewed with Admitting Physician: Orders were reviewed and melina fied where appropriate and approved: RN signature: Date: Time: Physician's signature: Date: Time: lan of Regla - Jef Ross MSW - 11/28/2019 11:29 AM PDTDISCHARGE PLANNING FURNACE PROCESS SUPERVISOR p/c with Anthony Saman, Admissions at [facility] ([phone] ph, fax) states they want to accept this patient back to their hospital, states they a re awaiting for insurance authorization from [facility] Medicaid, states this usuall y takes about 24 hours, states this has been already started. DCP: Pending at [facility] [place] - Awaiting for insurance authoriza tion Avoidable days documented for delay with insurance authorization for [facility] Med icaid. Anticipated discharge on 11/28 KOREY CASTRO [phone] cell lan of Regla - Renetta Giang RN - 11/28/2019 1:02 AM PDT Problem: Adult Inpatient Plan of Care Goal: Plan of Care Review Outcome: Ongoing, progressing Goal: Absence of Hospital-Acquired Illness or Injury Outcome: Ongoing, progressing Goal: Optimal Comfort and Wellbeing Outcome: Ongoing, progressing Problem: Fall Injury Risk Goal: Absence of Fall and Fall-Related Injury Outcome: Ongoing, progressing Problem: Skin Injury Risk Increased Goal: Skin Health and Integrity Outcome: Ongoing, progressing lan of Adriana Coleman RN - 11/27/2019 6:04 PM PDT Problem: Infection Goal: Infection Symptom Resolution Outcome: Ongoing, progressing Pt afebrile this shift. BP remains 88-110's. VS stable. CT had 60 mL out. Pt moving a lot better and pain at a tolerable level. Pain med ications switched to Percocet d/t pt being lethargic with low BP's, pupils also dilated at b eginning of shift and were sluggish. Pupils slowly went back to baseline and were quicker to respond. Hospitalist requested that IV pain meds be avoided. Chart check complete. Adriana Mcnulty RN lan of Jef Sommer MSW - 11/27/2019 3:26 PM PDTDISCHARGE PLANNING FURNACE PROCESS SUPERVISOR p/c with Debra Combs, admissions at [facility], states their physician Leif Richards DO is currently reviewing the incomplete notes from Gas[facility] Erickson. [facility] at [phone] will provide transportation. DCP: Pending at [facility] KOREY CASTRO [phone] cell lan of Renetta Junior RN - 11/27/2019 4:45 AM PDT Problem: Adult Inpatient Plan of Care Goal: Plan of Care Review Outcome: Ongoing, progressing Goal: Absence of Hospital-Acquired Illness or Injury Outcome: Ongoing, progressing Goal: Optimal Comfort and Wellbeing Outcome: Ongoing, progressing Problem: Fall Injury Risk Goal: Absence of Fall and Fall-Related Injury Outcome: Ongoing, progressing Problem: Skin Injury Risk Increased Goal: Skin Health and Integrity Outcome: Ongoing, progressing lan of Adriana Coleman RN - 11/26/2019 6:26 PM PDT Problem: Fall Injury Risk Goal: Absence of Fall and Fall-Related Injury Outcome: Ongoing, progressing Pt remains fall free this shift. VS stable. CT to suction, 300 mL out including TPA/dornase. Dressing to CT changed this shashi ft. Pain is still uncontrolled per pt, administered PRN oxycodone, dilaudid, tylenol and perry eduled gabapentin. Educated pt on moving around and getting up into chair as often as possadrian le, pt reported that pain was too severe to get into chair. Chart check complete. Adriana Mcnulty RN lan of [facility] - Sakshi Quiñonez cia, RN - 11/26/2019 1:09 AM PDT Problem: Adult Inpatient Plan of Care Goal: Plan of Care Review Outcome: Ongoing, progressing Problem: Adult Inpatient Plan of Care Goal: Optimal Comfort and Wellbeing Outcome: Ongoing, progressing Problem: Adult Inpatient Plan of Care Goal: Absence of Hospital-Acquired Illness or Injury Outcome: Ongoing, progressing Problem: Fall Injury Risk Goal: Absence of Fall and Fall-Related Injury Outcome: Ongoing, progressing Problem: Infection Goal: Infection Symptom Resolution Outcome: Ongoing, progressing Problem: Skin Injury Risk Increased Goal: Skin Health and Integrity Outcome: Ongoing, progressing Problem: Skin Injury Risk Increased Goal: Skin Health and Integrity Outcome: Ongoing, progressing Pt reports pain to right torso r/t chest tube. Pt states pain meds effec in tx pain. No sig ns of resp distress noted. Pt repositions self. Encouraged deep breathing and coughing and t o perform active ROM. No new signs of infection noted. Afebrile. No ASE noted to ABX. Pt usi ng call light appropriately. A M PDTPlan of [facility] - Adriana Mcnulty RN - 11/25/2019 5:39 PM PDT Problem: Infection Goal: Infection Symptom Resolution Outcome: Ongoing, progressing Pt does not have any infection symptoms. Afebrile, no chills, VS stable. VS stable. CT to suction, 260 mL out with 80 mL in from dornase and alteplase instillation. Pt continues to have significant pain at insertion site, administered PRN oxycodone and dil audid per orders. Chart check complete. Adriana S. Penaflor, RN lan of Care - Her cyndianthonyGume RN - 11/24/2019 8:15 PM PDT Problem: Adult Inpatient Plan of Care Goal: Plan of Care Review Outcome: Ongoing, progressing Daily plan reviewed with pt and all questions answered Goal: Readiness for Transition of Care Outcome: Ongoing, progressing Problem: Infection Goal: Infection Symptom Resolution Outcome: Ongoing, progressing lan of Regla - Koko Mejia RN - 11/24/2019 2:59 PM PDTFormatting of this note might be different from t he original. Managing pain more effectively with adjustments to patients MAR yesterday. She is calling c onsistently approximately 2 to 3 hours for pain issues, rated a 8 or 9/10 and on the right f lank area. IR is ready to administer TPA, medication is in the patients cassette, but waitin g for pt to be transferred to [facility]. Patient's vitals are stable, she is afebrile, on room air , remains A/O x 4, has had a bed bath today, Purewick is in place, healthy appetite. No othe r acute changes to report this shift. Problem: Adult Inpatient Plan of Care Goal: Plan of Care Review Outcome: Ongoing, progressing Problem: Adult Inpatient Plan of Care Goal: Patient-Specific Goal Outcome: Ongoing, progressing Vital Sign Current: Last 12 Hours: Temperature Temp: 36.8 C (98.2 F) Temp Min: 36.5 C (97.7 F) Max: 36.8 C (98.2 F) Blood Pressure BP: 145/63 BP Min: 99/57 Max: 145/63 Pulse Pulse: 76 Pulse Min: 76 Max: 83 Respirations Resp: 19 Resp Min: 16 Max: 19 O2 Sat SpO2: 91 % on room air SpO2 Min: 91 % Max: 94 % lan of Regla - Reynaldo -Tala Ribeiro RN - 11/24/2019 11:55 AM PDTCare Management Follow-Up Readmission Risk: Medium Current Discharge Plan Anticipated Discharge Disposition: home Expected DC Date: 11/28/2019 Barriers to Discharge: Pt placement. Pt not medically ready for discharge. Steps Taken Toward Discharge: CM attended MD rounding for Pt follow up and discharge plann ing Next Steps: CM sent referral to [facility] Community Support Services Current Outpt/Agency/Support Groups: none Other Resources: freedom of choice Discharge Transportation Transportation Needs: other (see comments)(Will need assistance getting home) Notes: CM rounded with MD for Pt follow up and discharge planning. CM discussed Pt with Dr. Rubin and Lead RN. Per MD, Pt is not medically ready for discharge at this time, Will likel y require several days of hospitalization prior to discharging home. PT evaluation recommend s Home health, [facility] referral sent and following for discharge If needed. Pt currently on I VAB. Per , Pt IVAB to change to Ceftaroline, for a duration of 2-3 weeks. Pt's in surance not covered by [facility] or [facility]. CM sent referral to [facility] for placement, will need to follow up with updated ID notes from today 0. Likely no other CM needs from Case Management at this time. CM will continue to follow fo r discharge planning, pending clinical course. Electronically signed: Tala Shetty RN 11/24/2019 11:55 AM lan of [facility] - Carl Yina A, CIRCULATING PROCESS INSPECTOR - 11/24/2019 10:05 AM PDT Physical Therapy Treatment Note Recommended discharge disposition: home with assist Post discharge physical therapy recommendation: home health Equipment Recommendations: cane (straight, single point) Barriers to community-based discharge Physical Impairment, Level of assistance for ADLs/mobility, Pain, and Fall risk Recommended Frequency: 3 times/wk for 7 days with reassessment due by 11/29/19 Summary: VS @ rest BP: 127/62, HR 76, SPO2 89%. Pt reports 7/10 pain but is well managed t manoj. Pt was CGA for bed mob in/out of bed due to line management for chest tube/ IV but was showing improved participation due to decreased pain. Pt was SBA/CGA for all transfers/ amb ulation of 80 ft within room due to isolation precautions and had some increased pain but fe lt relief with ambulation. Pt was returned back to bed at the end of session with all needs met and RN notified of pts progress and wanting pain meds. Precautions Precautions/Limitations: falls Cognitive Assessment Additional Documentation: orientation Orientation: oriented x 4 Bed Mobility Additional Documentation: supine to/from sit Assistive Device: bed rails Supine to Sit, Level of Lyford: modified independent Sit to Supine, Level of Lyford: modified independent Transfers Additional Documentation: sit to/from stand Sit-Stand, Level of Lyford: stand by assist Stand-Sit, Level of Lyford: stand by assist [id number], Assistive Device: 2 wheeled walker (FWW) Impairments: impaired balance Gait Level of Lyford: contact guard assist Assistive Device: 2 wheeled walker (FWW) Distance (feet): 2x40 Additional Documentation: safety, impairments Impairments: impaired balance Balance Sitting Balance: Static: good balance Sitting Balance: Dynamic: good balance Standing Balance: Static: good balance Standing Balance: Dynamic: fair balance Goals Reflects last filed data and may be from multiple contributors. Gait Goal Most Recent Value LTG Lyford Level modified independent at 11/22/2019 1045 LTG Assistive Device cane (straight, single point) at 11/22/2019 1045 LTG Distance (feet) 150 at 11/22/2019 1045 Stair Goal Most Recent Value LTG [place] Level stand by assist at 11/22/2019 1045 LTG Assistive Device 1 rail at 11/22/2019 1045 LTG Number of Stairs 2 at 11/22/2019 1045 PT Time Calculation Individual Start Time: 1005 Individual Stop Time: 1044 Individual Total Time: 39 PT Total Treatment Time: 39 lan of Regla - Koko Mejia RN - 11/23/2019 3:08 PM PDTFormatting of this note might be different from noe stevens original. Problem: Adult Inpatient Plan of Care Goal: Optimal Comfort and Wellbeing Outcome: Ongoing, progressing Problem: Skin Injury Risk Increased Goal: Skin Health and Integrity Outcome: Ongoing, progressing Patient did get a R. Pleural Drain placed today. Atrium is at bedside, pressure set at -20, on continuous High pressure at wall, there was some initial "bubbling" occurring in the atr ium, had Lead, and 9RP Lead look at it. Contacted Dr. Leggett and a CXR was ordered, not michele g after the leak appears to have stopped, the amount of "bubbling" occurring in the atrium is approximately 1 every 5 minutes, but it is a much smaller volume than previously. Patient has no SS, or Sx of crepitus, none on palpation, patient does have significant pain, which has been addressed by Dr. Rubin and pt is showing relief. Her vitals are stable, she is A/O x 4, on room air and afebrile. Vital Sign Current: Last 12 Hours: Temperature Temp: 36.8 C (98.2 F) Temp Min: 36.4 C (97.6 F) Max: 37 C (98.6 F ) Blood Pressure BP: 118/61 BP Min: 99/54 Max: 127/65 Pulse Pulse: 83 Pulse Min: 75 Max: 84 Respirations Resp: 11 Resp Min: 9 Max: 20 O2 Sat SpO2: 93 % on room air SpO2 Min: 91 % Max: 97 % lan of Regla Flowers, Fr lela Kilpatrick PT - 11/23/2019 12:13 PM PDTMISSED THERAPY VISIT Physical Therapy attempted to see the following patient today: Phoenix Dangelo Missed Visit (patient declined) Pt underwent procedure this AM and now with chest tube on her R side. Pt declined PT today as her pain was beginning to increase at the time. Pt requested to have PT return the follow ing day. lan of [facility] Demetris, Tala Jacobs RN - 11/23/2019 12:02 PM PDTCare Management Follow-Up Readmission Risk: Medium Current Discharge Plan Anticipated Discharge Disposition: home Expected DC Date: 11/28/2019 Barriers to Discharge: Pt not medically ready for discharge Steps Taken Toward Discharge: CM attended MD rounding for Pt follow up and discharge plann ing Next Steps: CM will continue to follow for discharge planning Community Support Services Current Outpt/Agency/Support Groups: none Other Resources: freedom of choice Discharge Transportation Transportation Needs: other (see comments)(Will need assistance getting home) Notes: CM rounded with MD for Pt follow up and discharge planning. CM discussed Pt with Dr. Rubin and Lead RN. Per MD, Pt is not medically ready for discharge at this time, Will likel y require several days of hospitalization prior to discharging home. Pt currently on IVAB-Va ncomycin and Levofloxacin. Mckean following for potential for home IVABl. Mckean to check insurance coverage for services and to contact this CM. PT recommends home with assist , and Home Health. CM sent referral to [facility] and updated on potential discharge date. Likely no other CM needs from Case Management at this time. CM will continue to follow for discharg e planning, pending clinical course. Electronically signed: Tala Shetty RN 11/23/2019 12:02 PM p Note - Calderon Leggett MD - 11/23/2019 10:41 AM PDTInterventional Radiolog y Post Procedure Note Patient Name: Phoenix Dangelo Date of : 1965 Procedure(s): Right chest tube Pre OP Diagnosis: loculated pleural effusion Post OP Diagnosis: Same Firesetter: Calderon Leggett MD MD Anesthesia Type: Mod sedation Findings: chest tube in place Specimens: culture EBL: Minimal Complications: None PLAN: to suction. F/u chest xray tomorrow. May need TPA if not improving. A full report will follow in the imaging section. Calderon Leggett MD MD Interventional Radiologist and Vascular Medicine Specialist lan of Nisha Fajardo RN - 11/23/2019 2:07 AM PDT Problem: Adult Inpatient Plan of Care Goal: Plan of Care Review Outcome: Ongoing, progressing Plan of care reviewed, all questions answered Problem: Adult Inpatient Plan of Care Goal: Absence of Hospital-Acquired Illness or Injury Outcome: Ongoing, progressing Problem: Adult Inpatient Plan of Care Goal: Optimal Comfort and Wellbeing Outcome: Ongoing, progressing Pt using tylenol and Roxicodone for pain, good relief reported Problem: Adult Inpatient Plan of Care Goal: Rounds/Family Conference Outcome: Ongoing, progressing Problem: Fall Injury Risk Goal: Absence of Fall and Fall-Related Injury Outcome: Ongoing, progressing Pt using call light as needed, call light within reach, cane at bedside, mutual fund manager socks on, n ight light on. lan of Care - Mildred Corral RN - 11/22/2019 6:[address] surgery not a good candidate. IR on board at this time. Medicated for pain per AUG with relief. Magnesium replaced with 2 G IV, recheck in AM. Patient to be placed NPO at midnight for pigtail drain placement tomorr ow by IR. Will pass on all cares and concerns to oncoming RN. Mildred Corral RN lan of Care - Sabiha Flowers PT - 11/22/2019 10:41 AM PDTFormatting of this note might be different from t reji original. Physical Therapy Initial Evaluation Note Recommended discharge disposition: home with assist Post discharge physical therapy recommendation: home health Equipment Recommendations: cane (straight, single point) Barriers to community-based discharge Fall risk Planned Interventions: balance training, gait training, stair training, strengthening Recommended Frequency: 3 times/wk for 7 days with reassessment due by 11/29/19 Summary: Pt admitted for empyema of the R lung with BLE edema. Pt presents with impaired b alance and BLE edema that is affecting her overall mobility. SPC trialed and pt demonstrated improved gait with decreased lateral sway and improved step length. Pt scored a 19/28 on th e Tinetti AGUSTIN, indicating high fall risk. Pt appears safe to return home with assist and [facility] PT. Living Environment Lives With: father, sibling(s) Living Arrangements: house Number of Stairs to Enter Home: 2 Number of Stairs Within Home: 0 Living Environment Comment: Bathroom: tub, shower chair, no HHSH, no grab bars. Toilet: sta ndard. Functional Level Prior Transferring: independent Ambulation: independent Toileting: independent Bathing: independent Dressing: independent Eating: independent Equipment Currently Used at Home: none Prior Functional Level Comment: Pt is indep with mobility and ADLs, does not drive. Friends assist with transportation. Reports recent fall off the bed due to BLE numbness prior to re turning to the hospital. Precautions Precautions/Limitations: falls Cognitive Assessment Additional Documentation: orientation Orientation: oriented x 4 Impairments Found (describe specific impairments): functional endurance/activity tolerance, gait, locomotion, and balance, neuromotor Bed Mobility Additional Documentation: supine to/from sit Assistive Device: none Supine to Sit, Level of Lyford: independent Sit to Supine, Level of Lyford: independent Transfers Additional Documentation: sit to/from stand Sit-Stand, Level of Lyford: stand by assist Stand-Sit, Level of Lyford: stand by assist [id number], Assistive Device: none, cane (straight, single point) Impairments: impaired balance Gait Gait Comments: With no AD, pt with increased lateral sway and near loss of balance with zackary f-recovery. SPC trialed with giat training on proper use. Level of Lyford: stand by assist Assistive Device: cane (straight, single point) Distance (feet): 75 Additional Documentation: safety, impairments Impairments: impaired balance Sensory Assessment Sensation Comments: decreased light touch to BLE Range of Motion ROM Testing Results: no range of motion deficits identified Strength Strength Comments: BUE grossly 4/5. BLE grossly 4/5 Balance Sitting Balance: Static: good balance Sitting Balance: Dynamic: good balance Standing Balance: Static: fair balance Standing Balance: Dynamic: fair balance Additional Documentation: Tinetti (group) Goals Reflects last filed data and may be from multiple contributors. Gait Goal Most Recent Value LTG Lyford Level modified independent at 11/22/2019 1045 LTG Assistive Device cane (straight, single point) at 11/22/2019 1045 LTG Distance (feet) 150 at 11/22/2019 1045 Stair Goal Most Recent Value LTG Lyford Level stand by assist at 11/22/2019 1045 LTG Assistive Device 1 rail at 11/22/2019 1045 LTG Number of Stairs 2 at 11/22/2019 1045 lan of Care - Mildred Espinosa RN - 11/22/2019 10:36 AM PDT Problem: Adult Inpatient Plan of Care Goal: Plan of Care Review Outcome: Ongoing, progressing Patient updated on plan of care. No questions or concerns at this time regarding treatment . Problem: Fall Injury Risk Goal: Absence of Fall and Fall-Related Injury Outcome: Ongoing, progressing Patients bed is in its lowest and locked position. Call light is within reach and patient appropriately uses it. Problem: Infection Goal: Infection Symptom Resolution Outcome: Ongoing, progressing Patient currently on IV ABX. Problem: Skin Injury Risk Increased Goal: Skin Health and Integrity Outcome: Ongoing, progressing Patient being provided wound care. Treatment creams applied. lan of Care - Harika Mcintosh MSW - 11/22/2019 9:19 AM PDTCare Management Initial Assessment Readmission Risk: Medium Status Prior to Admission or Illness Arrival From: admitted as an inpatient, home or self-care Lives With: father, sibling(s) Living Arrangements: house Caregiver For: no one Functional Status: independent Home Accessibility: no concerns, stairs to enter home Transportation Available: family or friend will provide, public transportation Able to return to prior living: yes Care Management Concerns Readmission Within Last 30 Days: no previous admission in last 30 days PCP: Remi Talley MD Contact Information Family Contact Information: Name: Simone Holland (Brother) Name: Milana Bullock (Sister) DC Needs Assessment Current Outpt/Agency/Support Groups: none Anticipated Changes Related to Illness: none Concerns to be Addressed: no discharge needs identified, transportation concerns(Will need transportation home) Services Anticipated at Discharge: none Equipment Used at Home: none Equipment Needed after Discharge: none Pharmacy/Medication Needs: other (see comments)([facility] [place]) Transportation Needs: other (see comments)(Will need assistance getting home) Initial Plan Anticipated Discharge Disposition: home Expected DC Date: yes Steps Taken Toward Discharge: Initial assessment completed Next Steps: CM to follow for discharge planning Notes: Pt resides at home with father and brother. Pt is independent - no caregiver, DME, home hea lth, oxygen, outpatient services, or blood thinners. Pt does not have a POA but would likely have her brother be her POA. Pt will discharge home with her family and requested assistanc e with transportation. Electronically signed: KOREY NOEL 11/22/2019 9:19 AM lan of Jordy Abel RN - 11/21/2019 11:10 PM PDT Problem: Adult Inpatient Plan of Care Goal: Plan of Care Review Outcome: Ongoing, progressing Goal: Patient-Specific Goal Outcome: Ongoing, progressing Goal: Absence of Hospital-Acquired Illness or Injury Outcome: Ongoing, progressing Goal: Optimal Comfort and Wellbeing Outcome: Ongoing, progressing Goal: Readiness for Transition of Care Outcome: Ongoing, progressing Goal: Rounds/Family Conference Outcome: Ongoing, progressing Problem: Fall Injury Risk Goal: Absence of Fall and Fall-Related Injury Outcome: Ongoing, progressing Problem: Infection Goal: Infection Symptom Resolution Outcome: Ongoing, progressing Problem: Skin Injury Risk Increased Goal: Skin Health and Integrity Outcome: Ongoing, progressing Call light in reach, Pt calls when she needs assistance. lan of Lluvia Lin RN - 11/21/2019 6:58 P M PDTPt admitted at 1730. MD to floor at 1815. Pt c/o pain and nausea. Awaiting orders. VSS. End of shift chart check complete lan of Lluvia Lin RN - 11/21/2019 6:35 PM PDT Problem: Adult Inpatient Plan of Care Goal: Optimal Comfort and Wellbeing Outcome: Ongoing, progressing Pt states bed is comfortable, rates pain at 9/10, will administer PRN. VSSElectronically s igned by Lluvia Ames RN at 11/21/2019 6:36 PM PDTdocumented in this encounter Plan of Treatment + +---------+--------+ + + | Name | Type | Priori | Associated Diagnoses | Order Schedule | | | | ty | | | + +---------+--------+ + + | CBC with Manual | Lab | Routin | Loculated pleural | Expected: | | Differential | | e | effusion | 12/04/2019, Expires: | | | | | | 11/27/2020 | + +---------+--------+ + + | Comprehensive | Lab | Routin | Loculated pleural | Expected: | | Metabolic Panel | | e | effusion | 12/04/2019, Expires: | | | | | | 11/27/2020 | + +---------+--------+ + + | XR Chest 2 Vws | Imaging | Routin | Loculated pleural | Expected: | | | | e | effusion | 12/04/2019, Expires: | | | | | | 11/27/2020 | + +---------+--------+ + + documented as of this encounter [...] | + +--------+ + + + | ARACELI GALVEZ | SALV[place] | 11/23/2019 | | Results [...] + + documented in this encounter Results POC Glucose (11/29/2019 11:57 AM PDT) + + + + + + | Component | Value | Ref Range | Performed | Pathologist | | | | | At | Signature | + + + + + + | Glucose, | 178 (H)Comment: Testing | 65 - 99 mg/dL | [facility] | | | POC | performed at [facility] | | LABORATORY | | | | [facility];[place], [place] | | | | | | [address] | | | | + + + + + + + + | Specimen | + + | | + + + + + + + | Performing | Address | City/State/Zipcode | Phone Number | | Organization | | | | + + + + + | [facility] | [address] | [place] [address] | [phone] | + + + + + POC Glucose (11/29/2019 8:01 AM PDT) + + + + + + | Component | Value | Ref Range | Performed | Pathologist | | | | | At | Signature | + + + + + + | Glucose, | 126 (H)Comment: Testing | 65 - 99 mg/dL | [facility] | | | POC | performed at [facility];[address] | | LABORATORY | | | | [address];[place] | | | | | | [address] | | | | + + + + + + + + | Specimen | + + | | + + + + + + + | Performing | Address | City/State/Zipcode | Phone Number | | Organization | | | | + + + + + | [facility] | [address] | [place] [address] | [phone] | + + + + + Comprehensive Metabolic Panel (11/29/2019 3:11 AM PDT) + + + + + + | Component | Value | Ref Range | Performed | Pathologist | | | | | At | Signature | + + + + + + | Na | 142 | 135 - 145 | [facility] | [...] + + + + | CO2 | 27 | 23 - 32 mmol/L | [facility] | | | | | | LABORATORY | | + + + + + + | Anion Gap | 11 | 5 - 20 mmol/L | [facility] | | | | | | LABORATORY | | + + + + + + | Glucose | 125 (H) | 65 - 99 mg/dL | [facility] | | | | | | LABORATORY | | + + + + + + | BUN | 23 | 8 - 25 mg/dL | [facility] | | | | | | LABORATORY | | + + + + + + | Creatinine | 1.38 (H) | 0.50 - 1.00 | [facility] | | | | | mg/dL | LABORATORY | | + + + + + + | BUN/Creatin | 17 | | [facility] | | | ine Ratio | | | LABORATORY | | + + + + + + | Calcium | 8.9 | 8.5 - 10.5 | [facility] | | | | | mg/dL | LABORATORY | | + + + + + + | Protein, | 5.8 (L) | 6.3 - 8.2 g/dL | [facility] | | | Total | | | LABORATORY | | + + + + + + | Albumin | 2.7 (L) | 3.6 - 5.0 g/dL | [facility] | | | | | | LABORATORY | | + + + + + + | Globulin | 3.1 | 1.3 - 4.9 g/dL | [facility] | | | | | | LABORATORY | | + + + + + + | A/G Ratio | 0.9 (L) | 1.0 - 2.4 | [facility] | | | | | | LABORATORY | | + + + + + + | BILIRUBIN, | <0.2 | 0.1 - 1.5 mg/dL | [facility] | | | TOTAL | | | LABORATORY | | + + + + + + | ALK PHOS | 62 | 35 - 115 U/L | [facility] | | | | | | LABORATORY | | + + + + + + | AST | 9 (L) | 10 - 45 U/L | [facility] | | | | | | LABORATORY | | + + + + + + | ALT | 7 (L) | 10 - 65 U/L | [facility] | | | | | | LABORATORY | | + + + + + + | Estimated | 40 (L)Comment: GFR <60: | >60 | [facility] [...] | | | | | performed at [facility] | | | | | | [facility];[place], [place] | | | | | | [address] | | | | + + + + + + + + | Specimen | + + | Blood | + + + + + + + | Performing | Address | City/State/Zipcode | Phone Number | | Organization | | | | + + + + + | [facility] | [address] | [place] [address] | [phone] | + + + + + POC Glucose (11/28/2019 9:17 PM PDT) + + + + + + | Component | Value | Ref Range | Performed | Pathologist | | | | | At | Signature | + + + + + + | Glucose, | 144 (H)Comment: Testing | 65 - 99 mg/dL | [facility] | | | POC | performed at [facility];[address] | | LABORATORY | | | | [address];[place], [place] | | | | | | [address] | | | | + + + + + + + + | Specimen | + + | | + + + + + + + | Performing | Address | City/State/Zipcode | Phone Number | | Organization | | | | + + + + + | [facility] | [address] | [place] [address] | [phone] | + + + + + POC Glucose (11/28/2019 5:04 PM PDT) + + + + + + | Component | Value | Ref Range | Performed | Pathologist | | | | | At | Signature | + + + + + + | Glucose, | 92Comment: Testing | 65 - 99 mg/dL | [facility] | | | POC | performed at [facility];[address] | | LABORATORY | | | | [address];[place] | | | | | | [address] | | | | + + + + + + + + | Specimen | + + | | + + + + + + + | Performing | Address | City/State/Zipcode | Phone Number | | Organization | | | | + + + + + | [facility] | [address] | [place] [address] | [phone] | + + + + + POC Glucose (11/28/2019 11:55 AM PDT) + + + + + + | Component | Value | Ref Range | Performed | Pathologist | | | | | At | Signature | + + + + + + | Glucose, | 190 (H)Comment: Testing | 65 - 99 mg/dL | [facility] | | | POC | performed at [facility];[address] | | LABORATORY | | | | [address];[place] | | | | | | [address] | | | | + + + + + + + + | Specimen | + + | | + + + + + + + | Performing | Address | City/State/Zipcode | Phone Number | | Organization | | | | + + + + + | [facility] | [address] | [place] [address] | [phone] | + + + + + XR Chest Inspiration and Expiration (11/28/2019 10:45 AM PDT) + + | Specimen | [...] + | Porfirio, Rad Results In - 11/28/2019 10:57 AM PDT [...] | + +---------+ + + POC Glucose (11/28/2019 8:17 AM PDT) + + + + + + | Component | Value | Ref Range | Performed | Pathologist | | | | | At | Signature | + + + + + + | Glucose, | 113 (H)Comment: Testing | 65 - 99 mg/dL | [facility] | | | POC | performed at [facility];[address] | | LABORATORY | | | | [address];[place] | | | | | | [address] | | | | + + + + + + + + | Specimen | + + | | + + + + + + + | Performing | Address | City/State/Zipcode | Phone Number | | Organization | | | | + + + + + | [facility] | [address] | [place] [address] | [phone] | + + + + + XR Chest Inspiration and Expiration (11/28/2019 7:38 AM PDT) + + | Specimen | + + | | + + + + + | Impressions | Performed At | + + + | 1. No evidence of pneumothorax post clamping of the right chest | [facility] | | pigtail catheter. 2. Persistent pleural thickening lateral right | | | lung base, probably with right basilar atelectasis. 3. Residual | | | density in the right infrahilar region, which may reflect residual | | | infiltrate or dense atelectasis. 4. Unchanged pigtail catheter. | | | Signed by: Hugh Traore Shawn Sign Date/Time: 11/28/2019 7:59 | | | AM | | + + + + + + | Narrative | Performed At | + + + | XR CHEST INSPIRATION AND EXPIRATION CLINICAL INFORMATION: | [facility] | | Follow up effusion. Chest tube clamped 2 hrs prior COMPARISON: XR | | | CHEST 1 VIEW (11/27/2019); XR CHEST AP PORTABLE (11/24/2019); XR CHEST | | | AP PORTABLE (11/23/2019); CT CHEST WITHOUT CONTRAST (11/21/2019); CT | | | GUIDED CHEST TUBE PLACEMENT (11/23/2019); CT ABDOMEN PELVIS WITH | | | CONTRAST (11/11/2019); FINDINGS: No pneumothorax. Pigtail | | | catheter again noted in the right lateral lung base, with pleural | | | thickening in the lateral right costophrenic sulcus. Minimal | | | strandy change in the right lung base probably due to atelectasis. | | | There is persistent slight prominence of the right perihilar | | | region. This may be due to residual infiltrate. No defined masses | | | seen on CT of 11/21/2019. the heart size is normal. | | + + + + + | Procedure Note | + + | Porfirio, Rad Results In - 11/28/2019 8:03 AM PDT | | XR CHEST INSPIRATION AND EXPIRATION | | | | CLINICAL INFORMATION: | | Follow up effusion. Chest tube clamped 2 hrs prior | | | | COMPARISON: | | XR CHEST 1 VIEW (11/27/2019); XR CHEST AP PORTABLE (11/24/2019); XR CHEST | | AP PORTABLE (11/23/2019); CT CHEST WITHOUT CONTRAST (11/21/2019); CT | | GUIDED CHEST TUBE PLACEMENT (11/23/2019); CT ABDOMEN PELVIS WITH | | CONTRAST (11/11/2019); | | | | FINDINGS: | | No pneumothorax. Pigtail catheter again noted in the right lateral | | lung base, with pleural thickening in the lateral right costophrenic | | sulcus. Minimal strandy change in the right lung base probably due to | | atelectasis. There is persistent slight prominence of the right | | perihilar region. This may be due to residual infiltrate. No defined | | masses seen on CT of 11/21/2019. the heart size is normal. | | | | IMPRESSION: | | 1. No evidence of pneumothorax post clamping of the right chest pigtail | | catheter. | | 2. Persistent pleural thickening lateral right lung base, probably with | | right basilar atelectasis. | | 3. Residual density in the right infrahilar region, which may reflect | | residual infiltrate or dense atelectasis. | | 4. Unchanged pigtail catheter. | | | | | | | | | | Signed by: Hugh Traore Shawn | | Sign Date/Time: 11/28/2019 7:59 AM | + + + +---------+ + + | Performing | Address | City/State/Zipcode | Phone Number | | Organization | | | | + +---------+ + + | [facility] | | | | + +---------+ + + Comprehensive Metabolic Panel (11/28/2019 4:04 AM PDT) + + + + + + | Component | Value | Ref Range | Performed | Pathologist | | | | | At | Signature | + + + + + + | Na | 143 | 135 - 145 | [facility] | | | | | mmol/L | LABORATORY | | + + + + + + | K | 4.4 | 3.5 - 4.9 | [facility] | | | | | mmol/L | LABORATORY | | + + + + + + | Cl | 110 (H) | 99 - 109 mmol/L | [facility] | | | | | | LABORATORY | | + + + + + + | CO2 | 25 | 23 - 32 mmol/L | [facility] | | | | | | LABORATORY | | + + + + + + | Anion Gap | 12 | 5 - 20 mmol/L | [facility] | | | | | | LABORATORY | | + + + + + + | Glucose | 149 (H) | 65 - 99 mg/dL | [facility] | | | | | | LABORATORY | | + + + + + + | BUN | 23 | 8 - 25 mg/dL | [facility] | | | | | | LABORATORY | | + + + + + + | Creatinine | 1.54 (H) | 0.50 - 1.00 | [facility] | | | | | mg/dL | LABORATORY | | + + + + + + | BUN/Creatin | 15 | | [facility] | | | ine Ratio | | | LABORATORY | | + + + + + + | Calcium | 8.7 | 8.5 - 10.5 | [facility] | | | | | mg/dL | LABORATORY | | + + + + + + | Protein, | 5.7 (L) | 6.3 - 8.2 g/dL | [facility] | | | Total | | | LABORATORY | | + + + + + + | Albumin | 2.6 (L) | 3.6 - 5.0 g/dL | [facility] | | | | | | LABORATORY | | + + + + + + | Globulin | 3.1 | 1.3 - 4.9 g/dL | [facility] | | | | | | LABORATORY | | + + + + + + | A/G Ratio | 0.8 (L) | 1.0 - 2.4 | [facility] | | | | | | LABORATORY | | + + + + + + | BILIRUBIN, | <0.2 | 0.1 - 1.5 mg/dL | [facility] | | | TOTAL | | | LABORATORY | | + + + + + + | ALK PHOS | 67 | 35 - 115 U/L | [facility] | | | | | | LABORATORY | | + + + + + + | AST | <8 (L) | 10 - 45 U/L | [facility] | | | | | | LABORATORY | | + + + + + + | ALT | 7 (L) | 10 - 65 U/L | [facility] | | | | | | LABORATORY | | + + + + + + | Estimated | 35 (L)Comment: GFR <60: | >60 | [facility] [...] | | | | | | MDRD [facility] traceable | | | | | | equation.Testing | | | | | | performed at [facility];[address] | | | | | | [facility];[place], [place] | | | | | | [address] | | | | + + + + + + + + | Specimen | + + | Blood | + + + + + + + | Performing | Address | City/State/Zipcode | Phone Number | | Organization | | | | + + + + + | [facility] | [address] | [place] [address] | [phone] | + + + + + CBC with Differential (11/28/2019 4:04 AM PDT) + + + + + [...] | RBC | 3+Comment: ANISONORMAL | | [facility] | | | Morphology | PLT MORPHTesting | | LABORATORY | | | | performed at [facility];[address] | | | | | | [address];[place], [place] | | | | | | [address] | | | | | | | | | | + + + + + + + + | Specimen | + + | Blood | + + + + + + + | Performing | Address | City/State/Zipcode | Phone Number | | Organization | | | | + + + + + | [facility] | [address] | [place] [address] | [phone] | + + + + + POC Glucose (11/27/2019 9:10 PM PDT) + + + + + + | Component | Value | Ref Range | Performed | Pathologist | | | | | At | Signature | + + + + + + | Glucose, | 177 (H)Comment: Testing | 65 - 99 mg/dL | [facility] | | | POC | performed at [facility];[address] | | LABORATORY | | | | [address];[place] | | | | | | [address] | | | | + + + + + + + + | Specimen | + + | | + + + + + + + | Performing | Address | City/State/Zipcode | Phone Number | | Organization | | | | + + + + + | [facility] | [address] [facility] | [place] [address] | [phone] | + + + + + POC Glucose (11/27/2019 5:39 PM PDT) + + + + + + | Component | Value | Ref Range | Performed | Pathologist | | | | | At | Signature | + + + + + + | Glucose, | 105 (H)Comment: Testing | 65 - 99 mg/dL | [facility] | | | POC | performed at [facility];[address] | | LABORATORY | | | | [address];[place] | | | | | | [address] | | | | + + + + + + + + | Specimen | + + | | + + + + + + + | Performing | Address | City/State/Zipcode | Phone Number | | Organization | | | | + + + + + | [facility] | [address] | [place] [address] | [phone] | + + + + + POC Glucose (11/27/2019 12:22 PM PDT) + + + + + + | Component | Value | Ref Range | Performed | Pathologist | | | | | At | Signature | + + + + + + | Glucose, | 150 (H)Comment: Testing | 65 - 99 mg/dL | [facility] | | | POC | performed at [facility];[address] | | LABORATORY | | | | [address];[place] | | | | | | [address] | | | | + + + + + + + + | Specimen | + + | | + + + + + + + | Performing | Address | City/State/Zipcode | Phone Number | | Organization | | | | + + + + + | [facility] | [address] | [place] [address] | [phone] | + + + + + Comprehensive Metabolic Panel (11/27/2019 10:53 AM PDT) + + + + + + | Component | Value | Ref Range | Performed | Pathologist | | | | | At | Signature | + + + + + + | Na | 138 | 135 - 145 | [facility] | | | | | mmol/L | LABORATORY | | + + + + + + | K | 4.9 | 3.5 - 4.9 | [facility] | | | | | mmol/L | LABORATORY | | + + + + + + | Cl | 109 | 99 - 109 mmol/L | [facility] | | | | | | LABORATORY | | + + + + + + | CO2 | 24 | 23 - 32 mmol/L | [facility] | | | | | | LABORATORY | | + + + + + + | Anion Gap | 10 | 5 - 20 mmol/L | [facility] | | | | | | LABORATORY | | + + + + + + | Glucose | 155 (H) | 65 - 99 mg/dL | [facility] | | | | | | LABORATORY | | + + + + + + | BUN | 22 | 8 - 25 mg/dL | [facility] | | | | | | LABORATORY | | + + + + + + | Creatinine | 1.70 (H) | 0.50 - 1.00 | [facility] | | | | | mg/dL | LABORATORY | | + + + + + + | BUN/Creatin | 13 | | [facility] | | | ine Ratio | | | LABORATORY | | + + + + + + | Calcium | 8.6 | 8.5 - 10.5 | [facility] | | | | | mg/dL | LABORATORY | | + + + + + + | Protein, | 6.5 | 6.3 - 8.2 g/dL | [facility] | | | Total | | | LABORATORY | | + + + + + + | Albumin | 1.5 (L) | 3.6 - 5.0 g/dL | [facility] | | | | | | LABORATORY | | + + + + + + | Globulin | 5.0 (H) | 1.3 - 4.9 g/dL | [facility] | | | | | | LABORATORY | | + + + + + + | A/G Ratio | 0.3 (L) | 1.0 - 2.4 | [facility] | | | | | | LABORATORY | | + + + + + + | BILIRUBIN, | 0.3 | 0.1 - 1.5 mg/dL | [facility] | | | TOTAL | | | LABORATORY | | + + + + + + | ALK PHOS | 69 | 35 - 115 U/L | [facility] | | | | | | LABORATORY | | + + + + + + | AST | 10 | 10 - 45 U/L | [facility] | | | | | | LABORATORY | | + + + + + + | ALT | 12 | 10 - 65 U/L | [facility] | | | | | | LABORATORY | | + + + + + + | Estimated | 32 (L)Comment: GFR <60: | >60 | [facility] | | | GFR | CHRONIC KIDNEY [...] | | | | | | MDRD IDHI traceable | | | | | | equation.Testing | | | | | | performed at [facility], [address] | | | | | | [facility], | | | | | | [place] [address] | | | | + + + + + + + + | Specimen | + + | Blood | + + + + + + + | Performing | Address | City/State/Zipcode | Phone Number | | Organization | | | | + + + + + | [facility] | [address] | [place] [address] | [phone] | + + + + + POC Glucose (11/27/2019 8:25 AM PDT) + + + + + + | Component | Value | Ref Range | Performed | Pathologist | | | | | At | Signature | + + + + + + | Glucose, | 202 (H)Comment: Testing | 65 - 99 mg/dL | [facility] | | | POC | performed at [facility] | | LABORATORY | | | | [address];[place] | | | | | | [address] | | | | + + + + + + + + | Specimen | + + | | + + + + + + + | Performing | Address | City/State/Zipcode | Phone Number | | Organization | | | | + + + + + | [facility] | [address] | [place] [address] | [phone] | + + + + + XR [...] + +---------+ + + CBC with Differential (11/27/2019 4:11 AM PDT) + + + + + + | Component | Value | Ref Range | Performed | Pathologist | | | | | At | Signature | + + + + + + | WBC | 12.64 (H) | 3.80 - 11.00 | [facility] | | | | | K/uL | LABORATORY | | + + + + + + | Red Blood | 3.40 (L) | 3.70 - 5.10 | [facility] | | | Cells | | M/uL | LABORATORY | | + + + + + + | Hemoglobin | 9.0 (L) | 11.3 - 15.5 | [facility] | | | | | g/dL | LABORATORY | | + + + + + + | Hematocrit | 29.4 (L) | 34.0 - 46.0 % | [facility] | | | | | | LABORATORY | | + + + + + + | MCV | 86.5 | 80.0 - 100.0 fl | [facility] | | | | | | LABORATORY | | + + + + + + | MCH | 26.5 (L) | 27.0 - 34.0 pg | [facility] | | | | | | LABORATORY | | + + + + + + | MCHC | 30.6 (L) | 32.0 - 35.5 | [facility] | | | | | g/dL | LABORATORY | | + + + + + + | RDW-SD | 73.0 (H) | 37 - 53 fl | [facility] | | | | | | LABORATORY | | + + + + + + | Platelet | 477 (H) | 150 - 400 K/uL | [facility] | | | Count | | | LABORATORY | | + + + + + + | MPV | 10.9Comment: NO NORMAL | fl | [facility] | [...] + + + + | % | 74.30 | % | [facility] | | | Neutrophils | | | LABORATORY | | + + + + + + | IMMATURE | 1.90 | % | [facility] | | | GRANULOCYTE | | | LABORATORY | | + + + + + + | % | 11.90 | % | [facility] | | | Lymphocytes | | | LABORATORY | | + + + + + + | Monocyte % | 11.10 | % | [facility] | | | | | | LABORATORY | | + + + + + + | Eosinophils | 2.20 | % | [facility] | | | % | | | LABORATORY | | + + + + + + | Basophils % | 0.50 | % | [facility] | | | | | | LABORATORY | | + + + + + + | Neutrophils | 9.15 (H) | 1.90 - 7.40 | [facility] | | | , Absolute | | K/uL | LABORATORY | | + + + + + + | IMMATURE | 0.24 (H)Comment: NOTE | 0.00 - 0.07 | [facility] | | | GRANS AB | NEW REFERENCE RANGE | K/uL | LABORATORY | | + + + + + + | Absolute | 1.51 | 1.00 - 3.90 | [facility] | | | Lymphocytes | | K/uL | LABORATORY | | + + + + + + | Absolute | 1.40 (H) | 0.00 - 0.80 | [facility] | | | Monocytes | | K/uL | LABORATORY | | + + + + + + | Eosinophils | 0.28 | 0.00 - 0.50 | [facility] | | | , Absolute | | K/uL | LABORATORY | | + + + + + + | Basophils, | 0.06 | 0.00 - 0.10 | [facility] | | | Absolute | | K/uL | LABORATORY | | + + + + + + | RBC | 2+Comment: ANISONORMAL | | [facility] | | | Morphology | PLT MORPHTesting | | LABORATORY | | | | performed at [facility], [address] | | [address] | | [address], | | | | | | [place] [address] | | | | | | | | | | + + + + + + + + | Specimen | + + | Blood | + + + + + + + | Performing | Address | City/State/Zipcode | Phone Number | | Organization | | | | + + + + + | [facility] | [address] | [place] [address] | [phone] | + + + + + POC Glucose (11/26/2019 9:32 PM PDT) + + + + + + | Component | Value | Ref Range | Performed | Pathologist | | | | | At | Signature | + + + + + + | Glucose, | 191 (H)Comment: Testing | 65 - 99 mg/dL | [facility] | | | POC | performed at [facility] | | LABORATORY | | | | [address];[place], [place] | | | | | | [address] | | | | + + + + + + + + | Specimen | + + | | + + + + + + + | Performing | Address | City/State/Zipcode | Phone Number | | Organization | | | | + + + + + | [facility] | [address] | [place] [address] | [phone] | + + + + + Lactic Acid (11/26/2019 8:22 PM PDT) + + + + + + | Component | Value | Ref Range | Performed | Pathologist | | | | | At | Signature | + + + + + + | Lactate, | 1.3Comment: Testing | 0.4 - 2.0 | [facility] | | | Serum | performed at [facility];[address] | mmol/L | LABORATORY | | | | [address];[place], [place] | | | | | | [address] | | | | + + + + + + + + | Specimen | + + | Blood | + + + + + + + | Performing | Address | City/State/Zipcode | Phone Number | | Organization | | | | + + + + + | [facility] | [address] | [place] [address] | [phone] | + + + + + POC Glucose (11/26/2019 7:18 PM PDT) + + + + + + | Component | Value | Ref Range | Performed | Pathologist | | | | | At | Signature | + + + + + + | Glucose, | 196 (H)Comment: Testing | 65 - 99 mg/dL | [facility] | | | POC | performed at [facility] | | LABORATORY | | | | [address];[place] | | | | | | [address] | | | | + + + + + + + + | Specimen | + + | | + + + + + + + | Performing | Address | City/State/Zipcode | Phone Number | | Organization | | | | + + + + + | [facility] | [address] | [place] [address] | [phone] | + + + + + POC Glucose (11/26/2019 5:14 PM PDT) + + + + + + | Component | Value | Ref Range | Performed | Pathologist | | | | | At | Signature | + + + + + + | Glucose, | 173 (H)Comment: Testing | 65 - 99 mg/dL | [facility] | | | POC | performed at [facility] | | LABORATORY | | | | [address];[place] | | | | | | [address] | | | | + + + + + + + + | Specimen | + + | | + + + + + + + | Performing | Address | City/State/Zipcode | Phone Number | | Organization | | | | + + + + + | [facility] | [address] | [place] [address] | [phone] | + + + + + POC Glucose (11/26/2019 12:49 PM PDT) + + + + + + | Component | Value | Ref Range | Performed | Pathologist | | | | | At | Signature | + + + + + + | Glucose, | 162 (H)Comment: Testing | 65 - 99 mg/dL | [facility] | | | POC | performed at [facility] | | LABORATORY | | | | [address];[place], [place] | | | | | | [address] | | | | + + + + + + + + | Specimen | + + | | + + + + + + + | Performing | Address | City/State/Zipcode | Phone Number | | Organization | | | | + + + + + | [facility] | [address] | [place] [address] | [phone] | + + + + + CBC with Differential (11/26/2019 8:11 AM PDT) + + +---- + + + | Component | Value | Ref Range | Performed | Pathologist | | | | | At | Signature | + + +---- + + + | WBC | 13.09 (H) | 3.8 0 - 11.00 | [facility] | | | | | K/u L | LABORATORY | | + + +---- + + + | Red Blood | 3.61 (L) | 3.7 0 - 5.10 | [facility] | | | Cells | | M/u L | LABORATORY | | + + +---- + + + | Hemoglobin | 9.4 (L) | 11. 3 - 15.5 | [facility] | | | | | g/d L | LABORATORY | | + + +---- + + + | Hematocrit | 31.3 (L) | 34. 0 - 46.0 % | [facility] | | | | | | LABORATORY | | + + +---- + + + | MCV | 86.7 | 80. 0 - 100.0 fl | [facility] | | | | | | LABORATORY | | + + +---- + + + | MCH | 26.0 (L) | 27. 0 - 34.0 pg | [facility] | | | | | | LABORATORY | | + + +---- + + + | MCHC | 30.0 (L) | 32. 0 - 35.5 | [facility] | | | | | g/d L | LABORATORY | | + + +---- + + + | RDW-SD | 75.6 (H) | 37 - 53 fl | [facility] | | | | | | LABORATORY | | + + +---- + + + | Platelet | 379 | 150 - 400 K/uL | [facility] | | | Count | | | LABORATORY | | + + +---- + + + | MPV | 10.9Comment: NO NORMAL | fl | [facility] | | | | RANGE ESTABLISHED | | LABORATORY | | + + +---- + + + | Diff Type | AUTOMATED | | [facility] | | | | | | LABORATORY | | + + +---- + + + | % nRBC | 0.0 | 0 / 100WBC | [facility] | | | | | | LABORATORY | | + + +---- + + + | % | 75.20 | % | [facility] | | | Neutrophils | | | LABORATORY | | + + +---- + + + | IMMATURE | 2.40 | % | [facility] | | | GRANULOCYTE | | | LABORATORY | | + + +---- + + + | % | 10.70 | % | [facility] | | | Lymphocytes | | | LABORATORY | | + + +---- + + + | Monocyte % | 9.30 | % | [facility] | | | | | | LABORATORY | | + + +---- + + + | Eosinophils | 1.90 | % | [facility] | | | % | | | LABORATORY | | + + +---- + + + | Basophils % | 0.50 | % | [facility] | | | | | | LABORATORY | | + + +---- + + + | Neutrophils | 9.84 (H)Comment: | 1.9 0 - 7.40 | [facility] | | | , Absolute | CORRECTED ON 11/25 AT | K/u L | LABORATORY | | | | 0811: PREVIOUSLY | | | | | | REPORTED 9.85 | | | | + + +---- + + + | IMMATURE | 0.31 (H)Comment: NOTE | 0.0 0 - 0.07 | [facility] | | | GRANS AB | NEW REFERENCE RANGE | K/u L | LABORATORY | | + + +---- + + + | Absolute | 1.40 | 1.0 0 - 3.90 | [facility] | | | Lymphocytes | | K/u L | LABORATORY | | + + +---- + + + | Absolute | 1.22 (H) | 0.0 0 - 0.80 | [facility] | | | Monocytes | | K/u L | LABORATORY | | + + +---- + + + | Eosinophils | 0.25 | 0.0 0 - 0.50 | [facility] | | | , Absolute | | K/u L | LABORATORY | | + + +---- + + + | Basophils, | 0.07Comment: CORRECTED | 0.0 0 - 0.10 | [facility] | | | Absolute | ON 11/25 AT 0811: | K/u L | LABORATORY | | | | PREVIOUSLY REPORTED | | | | | | 0.06 | | | | + + +---- + + + | RBC | 3+Comment: | | [facility] | | | Morphology | ANISO1+MICRONORMAL PLT | | LABORATORY | | | | MORPHTesting performed | | | | | | at [facility], [address] | | | | | | [facility], | | | | | | [place] [address] | | | | | |Testing performed at [facility], [address] [place] [address] | | | | | | | | | | + + +---- + + + + + | Specimen | + + | Blood | + + + + + + + | Performing | Address | City/State/Zipcode | Phone Number | | Organization | | | | + + + + + | [facility] | [address] | [place] [address] | [phone] | + + + + + POC Glucose (11/26/2019 7:36 AM PDT) + + + + + + | Component | Value | Ref Range | Performed | Pathologist | | | | | At | Signature | + + + + + + | Glucose, | 191 (H)Comment: Testing | 65 - 99 mg/dL | [facility] | | | POC | performed at [facility] | | LABORATORY | | | | [address];[place], [place] | | | | | | [address] | | | | + + + + + + + + | Specimen | + + | | + + + + + + + | Performing | Address | City/State/Zipcode | Phone Number | | Organization | | | | + + + + + | [facility] | [address] | [place] [address] | [phone] | + + + + + Basic Metabolic Panel (11/26/2019 7:06 AM PDT) + + + + + [...] | | | | | performed at [facility], [address] | | | | | | [facility], | | | | | | [place] [address] | | | | + + + + + + + + | Specimen | + + | Blood | + + + + + + + | Performing | Address | City/State/Zipcode | Phone Number | | Organization | | | | + + + + + | [facility] | [address] | [place] [address] | [phone] | + + + + + DIAGNOSTIC REPORT - EXTERNAL SCAN (11/26/2019 12:00 AM PDT) + + + | Narrative | Performed At | + + + | Ordered by an | | | unspecified provider. | | + + + POC Glucose (11/25/2019 9:38 PM PDT) + + + + + + | Component | Value | Ref Range | Performed | Pathologist | | | | | At | Signature | + + + + + + | Glucose, | 202 (H)Comment: Testing | 65 - 99 mg/dL | [facility] | | | POC | performed at [facility] | | LABORATORY | | | | [address];[place], [place] | | | | | | [address] | | | | + + + + + + + + | Specimen | + + | | + + + + + + + | Performing | Address | City/State/Zipcode | Phone Number | | Organization | | | | + + + + + | [facility] | [address] [facility] | [place] [address] | [phone] | + + + + + POC Glucose (11/25/2019 8:35 PM PDT) + + + + + + | Component | Value | Ref Range | Performed | Pathologist | | | | | At | Signature | + + + + + + | Glucose, | 199 (H)Comment: Testing | 65 - 99 mg/dL | [facility] | | | POC | performed at [facility] | | LABORATORY | | | | [address];[place] | | | | | | [address] | | | | + + + + + + + + | Specimen | + + | | + + + + + + + | Performing | Address | City/State/Zipcode | Phone Number | | Organization | | | | + + + + + | [facility] | [address] | [place] [address] | [phone] | + + + + + POC Glucose (11/25/2019 5:08 PM PDT) + + + + + + | Component | Value | Ref Range | Performed | Pathologist | | | | | At | Signature | + + + + + + | Glucose, | 177 (H)Comment: Testing | 65 - 99 mg/dL | [facility] | | | POC | performed at [facility] | | LABORATORY | | | | [address];[place], [place] | | | | | | [address] | | | | + + + + + + + + | Specimen | + + | | + + + + + + + | Performing | Address | City/State/Zipcode | Phone Number | | Organization | | | | + + + + + | [facility] | [address] | [place] [address] | [phone] | + + + + + POC Glucose (11/25/2019 12:18 PM PDT) + + + + + + | Component | Value | Ref Range | Performed | Pathologist | | | | | At | Signature | + + + + + + | Glucose, | 190 (H)Comment: Testing | 65 - 99 mg/dL | [facility] | | | POC | performed at [facility] | | LABORATORY | | | | [address];[place], [place] | | | | | | [address] | | | | + + + + + + + + | Specimen | + + | | + + + + + + + | Performing | Address | City/State/Zipcode | Phone Number | | Organization | | | | + + + + + | [facility] | [address] | [place] [address] | [phone] | + + + + + POC Glucose (11/25/2019 8:53 AM PDT) + + + + + + | Component | Value | Ref Range | Performed | Pathologist | | | | | At | Signature | + + + + + + | Glucose, | 180 (H)Comment: Testing | 65 - 99 mg/dL | [facility] | | | POC | performed at [facility] | | LABORATORY | | | | [address];[place] | | | | | | [address] | | | | + + + + + + + + | Specimen | + + | | + + + + + + + | Performing | Address | City/State/Zipcode | Phone Number | | Organization | | | | + + + + + | [facility] | [address] | [place] [address] | [phone] | + + + + + POC Glucose (11/25/2019 7:50 AM PDT) + + + + + + | Component | Value | Ref Range | Performed | Pathologist | | | | | At | Signature | + + + + + + | Glucose, | 128 (H)Comment: Testing | 65 - 99 mg/dL | [facility] | | | POC | performed at [facility] | | LABORATORY | | | | [address];[place] | | | | | | [address] | | | | + + + + + + + + | Specimen | + + | | + + + + + + + | Performing | Address | City/State/Zipcode | Phone Number | | Organization | | | | + + + + + | [facility] | [address] | [place] [address] | [phone] | + + + + + Basic Metabolic Panel (11/25/2019 5:13 AM PDT) + + + + + + | Component | Value | Ref Range | Performed | Pathologist | | | | | At | Signature | + + + + + + | Na | 142 | 135 - 145 | [facility] | | | | | mmol/L | LABORATORY | | + + + + + + | K | 4.8 | 3.5 - 4.9 | [facility] | | | | | mmol/L | LABORATORY | | + + + + + + | Cl | 110 (H) | 99 - 109 mmol/L | [facility] | | | | | | LABORATORY | | + + + + + + | CO2 | 26 | 23 - 32 mmol/L | [facility] | | | | | | LABORATORY | | + + + + + + | Anion Gap | 11 | 5 - 20 mmol/L | [facility] | | | | | | LABORATORY | | + + + + + + | Glucose | 140 (H) | 65 - 99 mg/dL | [facility] | | | | | | LABORATORY | | + + + + + + | BUN | 15 | 8 - 25 mg/dL | [facility] [...] + + + + | Calcium | 8.6 | 8.5 - 10.5 | [facility] | | | | | mg/dL | LABORATORY | | + + + + + + | Estimated | 39 (L)Comment: GFR <60: | >60 | [facility] | | | GFR | CHRONIC KIDNEY [...] | | | | | performed at [facility], [address] | | | | | | [facility], | | | | | | [place] [address] | | | | + + + + + + + + | Specimen | + + | Blood | + + + + + + + | Performing | Address | City/State/Zipcode | Phone Number | | Organization | | | | + + + + + | [facility] | [address] | [place] [address] | [phone] | + + + + + CBC with Differential (11/25/2019 5:13 AM PDT) + + +---- + + + | Component | Value | Ref Range | Performed | Pathologist | | | | | At | Signature | + + +---- + + + | WBC | 10.88 | 3.8 0 - 11.00 | [facility] | | | | | K/u L | LABORATORY | | + + +---- + + + | Red Blood | 3.51 (L) | 3.7 0 - 5.10 | [facility] | | | Cells | | M/u L | LABORATORY | | + + +---- + + + | Hemoglobin | 9.1 (L) | 11. 3 - 15.5 | [facility] | | | | | g/d L | LABORATORY | | + + +---- + + + | Hematocrit | 30.7 (L) | 34. 0 - 46.0 % | [facility] | | | | | | LABORATORY | | + + +---- + + + | MCV | 87.5 | 80. 0 - 100.0 fl | [facility] | | | | | | LABORATORY | | + + +---- + + + | MCH | 25.9 (L) | 27. 0 - 34.0 pg | [facility] | | | | | | LABORATORY | | + + +---- + + + | MCHC | 29.6 (L) | 32. 0 - 35.5 | [facility] | | | | | g/d L | LABORATORY | | + + +---- + + + | RDW-SD | 77.6 (H) | 37 - 53 fl | [facility] | | | | | | LABORATORY | | + + +---- + + + | Platelet | 554 (H) | 150 - 400 K/uL | [facility] | | | Count | | | LABORATORY | | + + +---- + + + | MPV | 10.7Comment: NO NORMAL | fl | [facility] | | | | RANGE ESTABLISHED | | LABORATORY | | + + +---- + + + | Diff Type | AUTOMATED | | [facility] | | | | | | LABORATORY | | + + +---- + + + | % nRBC | 0.0 | 0 / 100WBC | [facility] | | | | | | LABORATORY | | + + +---- + + + | % | 70.70 | % | [facility] | | | Neutrophils | | | LABORATORY | | + + +---- + + + | IMMATURE | 3.80 | % | [facility] | | | GRANULOCYTE | | | LABORATORY | | + + +---- + + + | % | 18.40 | % | [facility] | | | Lymphocytes | | | LABORATORY | | + + +---- + + + | Monocyte % | 7.80 | % | [facility] | | | | | | LABORATORY | | + + +---- + + + | Eosinophils | 2.50 | % | [facility] | | | % | | | LABORATORY | | + + +---- + + + | Basophils % | 0.60 | % | [facility] | | | | | | LABORATORY | | + + +---- + + + | Neutrophils | 7.29 | 1.9 0 - 7.40 | [facility] | | | , Absolute | | K/u L | LABORATORY | | + + +---- + + + | IMMATURE | 0.41 (H)Comment: NOTE | 0.0 0 - 0.07 | [facility] | | | GRANS AB | NEW REFERENCE RANGE | K/u L | LABORATORY | | + + +---- + + + | Absolute | 2.00 | 1.0 0 - 3.90 | [facility] | | | Lymphocytes | | K/u L | LABORATORY | | + + +---- + + + | Absolute | 0.85 (H) | 0.0 0 - 0.80 | [facility] | | | Monocytes | | K/u L | LABORATORY | | + + +---- + + + | Eosinophils | 0.27 | 0.0 0 - 0.50 | [facility] | | | , Absolute | | K/u L | LABORATORY | | + + +---- + + + | Basophils, | 0.06 | 0.0 0 - 0.10 | [facility] | | | Absolute | | K/u L | LABORATORY | | + + +---- + + + | Platelet | INCREASED | | [facility] | | | Estimate | | | LABORATORY | | + + +---- + + + | RBC | 1+Comment: | | [facility] | | | Morphology | MICRO3+ANISOTesting | | LABORATORY | | | | performed at [facility], [address] | | | | | [facility], | | | | | | [place] [address] | | | | | |Testing performed at [facility], [address] [facility], [place] [address] | | | | | | | | | | + + +---- + + + + + | Specimen | + + | Blood | + + + + + + + | Performing | Address | City/State/Zipcode | Phone Number | | Organization | | | | + + + + + | [facility] | [address] | [place] [address] | [phone] | + + + + + POC Glucose (11/24/2019 9:30 PM PDT) + + + + + + | Component | Value | Ref Range | Performed | Pathologist | | | | | At | Signature | + + + + + + | Glucose, | 155 (H)Comment: Testing | 65 - 99 mg/dL | [facility] | | | POC | performed at [facility] | | LABORATORY | | | | [address];[place] | | | | | | [address] | | | | + + + + + + + + | Specimen | + + | | + + + + + + + | Performing | Address | City/State/Zipcode | Phone Number | | Organization | | | | + + + + + | [facility] | [address] | [place] [address] | [phone] | + + + + + POC Glucose (11/24/2019 5:09 PM PDT) + + + + + + | Component | Value | Ref Range | Performed | Pathologist | | | | | At | Signature | + + + + + + | Glucose, | 121 (H)Comment: Testing | 65 - 99 mg/dL | [facility] | | | POC | performed at [facility] | | LABORATORY | | | | [address];[place], [place] | | | | | | [address] | | | | + + + + + + + + | Specimen | + + | | + + + + + + + | Performing | Address | City/State/Zipcode | Phone Number | | Organization | | | | + + + + + | [facility] | [address] | [place] [address] | [phone] | + + + + + POC Glucose (11/24/2019 12:26 PM PDT) + + + + + + | Component | Value | Ref Range | Performed | Pathologist | | | | | At | Signature | + + + + + + | Glucose, | 145 (H)Comment: Testing | 65 - 99 mg/dL | [facility] | | | POC | performed at [facility];[address] | | LABORATORY | | | | [address];[place], [place] | | | | | | [address] | | | | + + + + + + + + | Specimen | + + | | + + + + + + + | Performing | Address | City/State/Zipcode | Phone Number | | Organization | | | | + + + + + | [facility] | [address] | [place] [address] | [phone] | + + + + + POC Glucose (11/24/2019 8:09 AM PDT) + + + + + + | Component | Value | Ref Range | Performed | Pathologist | | | | | At | Signature | + + + + + + | Glucose, | 162 (H)Comment: Testing | 65 - 99 mg/dL | [facility] | | | POC | performed at [facility] | | LABORATORY | | | | [address];[place] | | | | | | [address] | | | | + + + + + + + + | Specimen | + + | | + + + + + + + | Performing | Address | City/State/Zipcode | Phone Number | | Organization | | | | + + + + + | [facility] | [address] | [place] [address] | [phone] | + + + + + XR Chest AP Portable (11/24/2019 7:47 AM PDT) + + | Specimen | [...] + + | Porfirio, Rad Results In 11/24/2019 7:57 AM PDT | | CHEST [...] | | | | Signed by: Hugh Mancini Richard | | Sign Date/Time: 11/24/2019 7:54 AM | + + + +---------+ + + | Performing | Address | City/State/Zipcode | Phone Number | | Organization | | | | + +---------+ + + | [facility] | | | | + +---------+ + + Basic Metabolic Panel (11/24/2019 6:20 AM PDT) + + + + + + | Component | Value | Ref Range | Performed | Pathologist | | | | | At | Signature | + + + + + + | Na | 142 | 135 - 145 | [facility] | | | | | mmol/L | LABORATORY | | + + + + + + | K | 4.5 | 3.5 - 4.9 | [facility] | | | | | mmol/L | LABORATORY | | + + + + + + | Cl | 108 | 99 - 109 mmol/L | [facility] | | | | | | LABORATORY | | + + + + + + | CO2 | 27 | 23 - 32 mmol/L | [facility] | | | | | | LABORATORY | | + + + + + + | Anion Gap | 12 | 5 - 20 mmol/L | [facility] | | | | | | LABORATORY | | + + + + + + | Glucose | 151 (H) | 65 - 99 mg/dL | [facility] | | | | | | LABORATORY | | + + + + + + | BUN | 16 | 8 - 25 mg/dL | [facility] | | | | | | LABORATORY | | + + + + + + | Creatinine | 1.50 (H) | 0.50 - 1.00 | [facility] | | | | | mg/dL | LABORATORY | | + + + + + + | BUN/Creatin | 11 | | [facility] | | | ine Ratio | | | LABORATORY | | + + + + + + | Calcium | 8.7 | 8.5 - 10.5 | [facility] | | | | | mg/dL | LABORATORY | | + + + + + + | Estimated | 36 (L)Comment: GFR <60: | >60 | [facility] [...] | | | | | performed at [facility], [address] | | | | | | [facility], | | | | | | [place] [address] | | | | + + + + + + + + | Specimen | + + | | + + + + + + + | Performing | Address | City/State/Zipcode | Phone Number | | Organization | | | | + + + + + | [facility] | [address] | [place] [address] | [phone] | + + + + + CBC with Differential (11/24/2019 6:20 AM PDT) + + +---- + + + | Component | Value | Ref Range | Performed | Pathologist | | | | | At | Signature | + + +---- + + + | WBC | 11.89 (H) | 3.8 0 - 11.00 | [facility] | | | | | K/u L | LABORATORY | | + + +---- + + + | Red Blood | 3.36 (L) | 3.7 0 - 5.10 | [facility] | | | Cells | | M/u L | LABORATORY | | + + +---- + + + | Hemoglobin | 8.8 (L) | 11. 3 - 15.5 | [facility] | | | | | g/d L | LABORATORY | | + + +---- + + + | Hematocrit | 29.0 (L) | 34. 0 - 46.0 % | [facility] | | | | | | LABORATORY | | + + +---- + + + | MCV | 86.3 | 80. 0 - 100.0 fl | [facility] | | | | | | LABORATORY | | + + +---- + + + | MCH | 26.2 (L) | 27. 0 - 34.0 pg | [facility] | | | | | | LABORATORY | | + + +---- + + + | MCHC | 30.3 (L) | 32. 0 - 35.5 | [facility] | | | | | g/d L | LABORATORY | | + + +---- + + + | RDW-SD | 76.8 (H) | 37 - 53 fl | [facility] | | | | | | LABORATORY | | + + +---- + + + | Platelet | 556 (H) | 150 - 400 K/uL | [facility] | | | Count | | | LABORATORY | | + + +---- + + + | MPV | 10.3Comment: NO NORMAL | fl | [facility] | | | | RANGE ESTABLISHED | | LABORATORY | | + + +---- + + + | Diff Type | MANUAL | | [facility] | | | | | | LABORATORY | | + + +---- + + + | % Segmented | 69 | % | [facility] | | | | | | LABORATORY | | | Neutrophils | | | | | + + +---- + + + | % | 2 | % | [facility] | | | Metamyelocy | | | LABORATORY | | | naeem | | | | | + + +---- + + + | % | 1 | % | [facility] | | | Myelocytes | | | LABORATORY | | + + +---- + + + | % | 19 | % | [facility] | | | Lymphocytes | | | LABORATORY | | + + +---- + + + | % Monocytes | 6 | % | [facility] | | | | | | LABORATORY | | + + +---- + + + | Eosinophils | 3 | % | [facility] | | | % | | | LABORATORY | | + + +---- + + + | Neutrophils | 8.20 (H) | 1.9 0 - 7.40 | [facility] | | | , Absolute | | K/u L | LABORATORY | | + + +---- + + + | Absolute | 0.24 (H) | 0.0 0 K/uL | [facility] | | | Metamyelocy | | | LABORATORY | | | naeem | | | | | + + +---- + + + | Absolute | 0.12 (H) | 0.0 0 K/uL | [facility] | | | Myelocytes | | | LABORATORY | | + + +---- + + + | Absolute | 2.26 | 1.0 0 - 3.90 | [facility] | | | Lymphocytes | | K/u L | LABORATORY | | + + +---- + + + | Absolute | 0.71 | 0.0 0 - 0.80 | [facility] | | | Monocytes | | K/u L | LABORATORY | | + + +---- + + + | Eosinophils | 0.36 | 0.0 0 - 0.50 | [facility] | | | , Absolute | | K/u L | LABORATORY | | + + +---- + + + | RBC | 2+Comment: | | [facility] | | | Morphology | ANISO1+HYPONORMAL PLT | | LABORATORY | | | | MORPHTesting performed | | | | | | at [facility], [address] | | | | | | [address], | | | | | | [place] [address] | | | | | |Testing performed at [facility], [address] [facility], [place] [address] | | | | | | | | | | + + +---- + + + + + | Specimen | + + | Blood | + + + + + + + | Performing | Address | City/State/Zipcode | Phone Number | | Organization | | | | + + + + + | [facility] | [address] [facility] | [place] [address] | [phone] | + + + + + Vancomycin, Trough (11/23/2019 9:40 PM PDT) + + + + + [...] | | | | | performed at [facility] | | | | | | [facility];[place], [place] | | | | | | [address] | | | | + + + + + + + + | Specimen | + + | Blood | + + + + + + + | Performing | Address | City/State/Zipcode | Phone Number | | Organization | | | | + + + + + | [facility] | [address] | [place] [address] | [phone] | + + + + + POC Glucose (11/23/2019 8:39 PM PDT) + + + + + + | Component | Value | Ref Range | Performed | Pathologist | | | | | At | Signature | + + + + + + | Glucose, | 195 (H)Comment: Testing | 65 - 99 mg/dL | [facility] | | | POC | performed at [facility];[address] | | LABORATORY | | | | [address];[place] | | | | | | [address] | | | | + + + + + + + + | Specimen | + + | | + + + + + + + | Performing | Address | City/State/Zipcode | Phone Number | | Organization | | | | + + + + + | [facility] | [address] | [place] [address] | [phone] | + + + + + POC Glucose (11/23/2019 5:01 PM PDT) + + + + + + | Component | Value | Ref Range | Performed | Pathologist | | | | | At | Signature | + + + + + + | Glucose, | 195 (H)Comment: Testing | 65 - 99 mg/dL | [facility] | | | POC | performed at [facility];[address] | | LABORATORY | | | | [address];[place], [place] | | | | | | [address] | | | | + + + + + + + + | Specimen | + + | | + + + + + + + | Performing | Address | City/State/Zipcode | Phone Number | | Organization | | | | + + + + + | [facility] | [address] | [place] [address] | [phone] | + + + + + XR Chest AP Portable (11/23/2019 12:57 PM PDT) + + | Specimen | + + | | + + + + + | Impressions | Performed At | + + + | 1. Mild interstitial edema with small right-sided pleural effusion. | [facility] | | 2. Mild bibasilar subsegmental atelectasis. Signed | | | by: Elsa Monterroso, Rangel Sign Date/Time: 11/23/2019 1:19 PM | | + + + + + + | Narrative | Performed At | + + + | CHEST PORTABLE ONE VIEW CLINICAL INFORMATION: Confirm chest | [facility] | | tube placement COMPARISON: CT GUIDED CHEST TUBE PLACEMENT | | | (11/23/2019); CT CHEST WITHOUT CONTRAST (11/21/2019); CT CHEST LOW DOSE | | | WITHOUT CONTRAST (11/11/2019); FINDINGS: The heart is enlarged | | | but stable in size. Right-sided pigtail pleural drainage catheter | | | that appears in appropriate position. Pulmonary vascular congestion | | | with interstitial edema. No pneumothorax. Hazy right basilar | | | opacity to likely resent small pleural effusion. Linear bibasilar | | | opacities to likely resent subsegmental atelectasis. | | + + + + + | Procedure Note | + + | Porfirio, Rad Results In - 11/23/2019 1:23 PM PDT | | CHEST PORTABLE ONE VIEW | | | | CLINICAL INFORMATION: | | Confirm chest tube placement | | | | COMPARISON: | | CT GUIDED CHEST TUBE PLACEMENT (11/23/2019); CT CHEST WITHOUT CONTRAST | | (11/21/2019); CT CHEST LOW DOSE WITHOUT CONTRAST (11/11/2019); | | | | FINDINGS: | | The heart is enlarged but stable in size. Right-sided pigtail pleural | | drainage catheter that appears in appropriate position. Pulmonary | | vascular congestion with interstitial edema. No pneumothorax. Hazy | | right basilar opacity to likely resent small pleural effusion. Linear | | bibasilar opacities to likely resent subsegmental atelectasis. | | | | IMPRESSION: | | 1. Mild interstitial edema with small right-sided pleural effusion. | | | | 2. Mild bibasilar subsegmental atelectasis. | | | | | | | | | | Signed by: Elsa Monterroso Chet | | Sign Date/Time: 11/23/2019 1:19 PM | + + + +---------+ + + | Performing | Address | City/State/Zipcode | Phone Number | | Organization | | | | + +---------+ + + | [facility] | | | | + +---------+ + + POC Glucose (11/23/2019 11:29 AM PDT) + + + + + + | Component | Value | Ref Range | Performed | Pathologist | | | | | At | Signature | + + + + + + | Glucose, | 172 (H)Comment: Testing | 65 - 99 mg/dL | [facility] | | | POC | performed at [facility];[address] | | LABORATORY | | | | [address];[place] | | | | | | [address] | | | | + + + + + + + + | Specimen | + + | | + + + + + + + | Performing | Address | City/State/Zipcode | Phone Number | | Organization | | | | + + + + + | [facility] | [address] | [place] [address] | [phone] | + + + + + Culture, [...] RESULT | Testing performed at | | [facility] | | | | [facility], [address] [facility] | | LABORATORY | | | | [place] | | | | | | [id number]: Testing | | | | | | performed at [facility], [address] | | | | | | [facility] [place], | | | | | | [place] [address] | | | | + + + + + + + + | Specimen | + + | Body Fluid - Pus | | specimen (specimen) | + + + + + + + | Performing | Address | City/State/Zipcode | Phone Number | | Organization | | | | + + + + + | [facility] | [address] | [place] [address] | [phone] | + + + + + Medical Cytology (11/23/2019 10:55 AM PDT) + + | Specimen | + + | Body Fluid - Pus | | specimen (specimen) | + + + + + | Narrative | Performed At | + + + | ORDERING | [facility] | | PHYSICIAN:Oleksandr KAPLAN, Calderon Griffin PATIENT NAME:PHOENIX DANGELO MGENDER: | INCYTE | [...] | | LABORATORY:Technical preparation was performed by [facility], | | | [address] [place] [address] (Washtub Worker: | | | Sebas Tolliver D.O.; CLIA#: [id number]).Professional interpretation | | | was performed by [facility] [address] | | | [place] [address] (Washtub Worker: Leif | | | Hugh Layne; CLIA#: [id number]).6 Diagnostician: Hector Bryant | | | CT (ASCP)CytotechnologistDiagnostician: Leif Layne | | | MDPathologistElectronically Signed 11/24/2019 | | | | | |DESCRIPTION: | | |The preparations contain mesothelial cells, rare inflammatory cells, and acellular proteina ceous material. Atypical cytologic findings are not encountered. | | | | | |SPECIMEN ADEQUACY: | | |Satisfactory for Evaluation | | | | | |PERFORMING LABORATORY: | | |Technical preparation was performed by [facility], [address] [place] [address] (Washtub Worker: Sebas Tolliver D.O.; CLIA#: [id number]). | | |Professional interpretation [facility], [address] [place] [address] (Washtub Worker: Leif aLyne M.D.; CLIA#: [id number]).6 | | | | | |Diagnostician: Hector Bryant CT (ASCP) | | |Hospice Case Manager | | |Diagnostician: Leif Layne MD | [...] | | | clinician's orders. A 12 Jamaican locking pigtail catheter is placed. | | | Signed by: Hugh Leggett, Calderon Choe Date/Time: | | | 11/23/2019 11:36 AM [...] + | Porfirio, Rad Results In - 11/23/2019 11:40 AM PDT | | CT [...] the | | clinician's orders. A 12 Jamaican locking pigtail catheter is placed. | | [...] + +---------+ + + Vancomycin, Trough (11/23/2019 9:06 AM PDT) + + + + + + | Component | Value | Ref Range | Performed | Pathologist | | | | | At | Signature | + + + + + + | Vancomycin, | 39.4 ()Comment: 15 to | 10 - 20 [...] | | | | | | 1.0 ug/mLRESULT READ | | | | | | BACK BY: ZENAIDA Santos 7RP RN | | | | | | @0944 BY READ BACK | | | | | | RESULTS VERIFIEDTesting | | | | | | performed at [facility] | | | | | | [facility];[place] | | | | | | [address] | | | | + + + + + + + + | Specimen | + + | Blood | + + + + + + + | Performing | Address | City/State/Zipcode | Phone Number | | Organization | | | | + + + + + | [facility] | [address] | [place] [address] | [phone] | + + + + + POC Glucose (11/23/2019 7:38 AM PDT) + + + + + + | Component | Value | Ref Range | Performed | Pathologist | | | | | At | Signature | + + + + + + | Glucose, | 127 (H)Comment: Testing | 65 - 99 mg/dL | [facility] | | | POC | performed at [facility];[address] | | LABORATORY | | | | [address];[place], [place] | | | | | | [address] | | | | + + + + + + + + | Specimen | + + | | + + + + + + + | Performing | Address | City/State/Zipcode | Phone Number | | Organization | | | | + + + + + | [facility] | [address] | [place] [address] | [phone] | + + + + + POC Glucose (11/22/2019 8:58 PM PDT) + + + + + + | Component | Value | Ref Range | Performed | Pathologist | | | | | At | Signature | + + + + + + | Glucose, | 174 (H)Comment: Testing | 65 - 99 mg/dL | [facility] | | | POC | performed at [facility];[address] | | LABORATORY | | | | [address];[place], [place] | | | | | | [address] | | | | + + + + + + + + | Specimen | + + | | + + + + + + + | Performing | Address | City/State/Zipcode | Phone Number | | Organization | | | | + + + + + | [facility] | [address] | [place] [address] | [phone] | + + + + + POC Glucose (11/22/2019 4:13 PM PDT) + + + + + + | Component | Value | Ref Range | Performed | Pathologist | | | | | At | Signature | + + + + + + | Glucose, | 94Comment: Testing | 65 - 99 mg/dL | [facility] | | | POC | performed at [facility];[address] | | LABORATORY | | | | [address];[place], [place] | | | | | | [address] | | | | + + + + + + + + | Specimen | + + | | + + + + + + + | Performing | Address | City/State/Zipcode | Phone Number | | Organization | | | | + + + + + | [facility] | [address] | [place] [address] | [phone] | + + + + + POC Glucose (11/22/2019 11:29 AM PDT) + + + + + + | Component | Value | Ref Range | Performed | Pathologist | | | | | At | Signature | + + + + + + | Glucose, | 108 (H)Comment: Testing | 65 - 99 mg/dL | [facility] | | | POC | performed at [facility];[address] | | LABORATORY | | | | [address];[place] | | | | | | [address] | | | | + + + + + + + + | Specimen | + + | | + + + + + + + | Performing | Address | City/State/Zipcode | Phone Number | | Organization | | | | + + + + + | [facility] | [address] | [place] [address] | [phone] | + + + + + POC Glucose (11/22/2019 9:28 AM PDT) + + + + + + | Component | Value | Ref Range | Performed | Pathologist | | | | | At | Signature | + + + + + + | Glucose, | 92Comment: Testing | 65 - 99 mg/dL | [facility] | | | POC | performed at [facility];[address] | | LABORATORY | | | | [address];[place] | | | | | | [address] | | | | + + + + + + + + | Specimen | + + | | + + + + + + + | Performing | Address | City/State/Zipcode | Phone Number | | Organization | | | | + + + + + | [facility] | [address] | [place] [address] | [phone] | + + + + + Magnesium (11/22/2019 5:18 AM PDT) + + + + + + | Component | Value | Ref Range | Performed | Pathologist | | | | | At | Signature | + + + + + + | Magnesium | 1.3 (L)Comment: Testing | 1.7 - 2.4 mg/dL | [facility] | | | | performed at [facility];[address] | | LABORATORY | | | | [address];[place] | | | | | | [address] | | | | + + + + + + + + | Specimen | + + | Blood | + + + + + + + | Performing | Address | City/State/Zipcode | Phone Number | | Organization | | | | + + + + + | [facility] | [address] | [place] [address] | [phone] | + + + + + Protime INR (11/22/2019 5:18 AM PDT) + + + + + + | Component | Value | Ref Range | Performed | Pathologist | | | | | At | Signature | + + + + + + | INR | 1.2Comment: REFERENCE | | [facility] | | | | RANGE:0.9 - 1.2 [...] | | | | | performed at [facility] | | | | | | [facility];[place], [place] | | | | | | [address] | | | | + + + + + + + + | Specimen | + + | Blood | + + + + + + + | Performing | Address | City/State/Zipcode | Phone Number | | Organization | | | | + + + + + | [facility] | [address] | [place] [address] | [phone] | + + + + + CBC with Differential (11/22/2019 5:18 AM PDT) + + + + + + | Component | Value | Ref Range | Performed | Pathologist | | | | | At | Signature | + + + + + + | WBC | 17.08 (H) | 3.80 - 11.00 | [facility] | | | | | K/uL | LABORATORY | | + + + + + + | Red Blood | 3.60 (L) | 3.70 - 5.10 | [facility] | | | Cells | | M/uL | LABORATORY | | + + + + + + | Hemoglobin | 9.4 (L) | 11.3 - 15.5 | [facility] | | | | | g/dL | LABORATORY | | + + + + + + | Hematocrit | 30.6 (L) | 34.0 - 46.0 % | [facility] | | | | | | LABORATORY | | + + + + + + | MCV | 85.0 | 80.0 - 100.0 fl | [facility] | | | | | | LABORATORY | | + + + + + + | MCH | 26.1 (L) | 27.0 - 34.0 pg | [facility] | | | | | | LABORATORY | | + + + + + + | MCHC | 30.7 (L) | 32.0 - 35.5 | [facility] | | | | | g/dL | LABORATORY | | + + + + + + | RDW-SD | 72.9 (H) | 37 - 53 fl | [facility] | | | | | | LABORATORY | | + + + + + + | Platelet | 570 (H) | 150 - 400 K/uL | [facility] | | | Count | | | LABORATORY | | + + + + + + | MPV | 10.5Comment: NO NORMAL | fl | [facility] | | | | RANGE ESTABLISHED | | LABORATORY | | + + + + + + | Diff Type | MANUAL | | [facility] | | | | | | LABORATORY | | + + + + + + | % Segmented | 77 | % | [facility] | | | | | | LABORATORY | | | Neutrophils | | | | | + + + + + + | % Bands | 3 | % | [facility] | | | | | | LABORATORY | | + + + + + + | % | 5 | % | [facility] | | | Metamyelocy | | | LABORATORY | | | naeem | | | | | + + + + + + | % | 1 | % | [facility] | | | Myelocytes | | | LABORATORY | | + + + + + + | % | 12 | % | [facility] | | | Lymphocytes | | | LABORATORY | | + + + + + + | Eosinophils | 2 | % | [facility] | | | % | | | LABORATORY | | + + + + + + | Neutrophils | 13.16 (H) | 1.90 - 7.40 | [facility] | | | , Absolute | | K/uL | LABORATORY | | + + + + + + | Absolute | 0.51 (H) | 0.00 - 0.20 | [facility] | | | Band | | K/uL | LABORATORY | | | Neutrophils | | | | | + + + + + + | Absolute | 0.85 (H) | 0.00 K/uL | [facility] | | | Metamyelocy | | | LABORATORY | | | naeem | | | | | + + + + + + | Absolute | 0.17 (H) | 0.00 K/uL | [facility] | | | Myelocytes | | | LABORATORY | | + + + + + + | Absolute | 2.05 | 1.00 - 3.90 | [facility] | | | Lymphocytes | | K/uL | LABORATORY | | + + + + + + | Eosinophils | 0.34 | 0.00 - 0.50 | [facility] | | | , Absolute | | K/uL | LABORATORY | | + + + + + + | Platelet | INCREASED | | [facility] | | | Estimate | | | LABORATORY | | + + + + + + | RBC | NORMAL PLT MORPHComment: | | [facility] | | | Morphology | 3+ANISOTesting | | LABORATORY | | | | performed at [facility] | | | | | | [address];[place], [place] | | | | | | [address] | | | | | | | | | | + + + + + + + + | Specimen | + + | Blood | + + + + + + + | Performing | Address | City/State/Zipcode | Phone Number | | Organization | | | | + + + + + | [facility] | [address] | [place] [address] | [phone] | + + + + + Comprehensive Metabolic Panel (11/22/2019 5:18 AM PDT) + + + [...] | K | 4.1 | 3.5 - 4.9 | [facility] | | | | | mmol/L | LABORATORY | | + + + + + + | Cl | 103 | 99 - 109 mmol/L | [facility] | | | | | | LABORATORY | | + + + + + + | CO2 | 30 | 23 - 32 mmol/L | [facility] | | | | | | LABORATORY | | + + + + + + | Anion Gap | 10 | 5 - 20 mmol/L | [facility] | | | | | | LABORATORY | | + + + + + + | Glucose | 55 (L) | 65 - 99 mg/dL | [facility] | | | | | | LABORATORY | | + + + + + + | BUN | 16 | 8 - 25 mg/dL | [facility] | | | | | | LABORATORY | | + + + + + + | Creatinine | 1.10 (H) | 0.50 - 1.00 | [facility] | | | | | mg/dL | LABORATORY | | + + + + + + | BUN/Creatin | 15 | | [facility] | | | ine Ratio | | | LABORATORY | | + + + + + + | Calcium | 9.0 | 8.5 - 10.5 | [facility] | | | | | mg/dL | LABORATORY | | + + + + + + | Protein, | 5.6 (L) | 6.3 - 8.2 g/dL | [facility] | | | Total | | | LABORATORY | | + + + + + + | Albumin | 3.0 (L) | 3.6 - 5.0 g/dL | [facility] | | | | | | LABORATORY | | + + + + + + | Globulin | 2.6 | 1.3 - 4.9 g/dL | [facility] | | | | | | LABORATORY | | + + + + + + | A/G Ratio | 1.2 | 1.0 - 2.4 | [facility] | | | | | | LABORATORY | | + + + + + + | BILIRUBIN, | 0.3 | 0.1 - 1.5 mg/dL | [facility] | | | TOTAL | | | LABORATORY | | + + + + + + | ALK PHOS | 104 | 35 - 115 U/L | [facility] | | | | | | LABORATORY | | + + + + + + | AST | 25 | 10 - 45 U/L | [facility] | | | | | | LABORATORY | | + + + + + + | ALT | 26 | 10 - 65 U/L | [facility] | | | | | | LABORATORY | | + + + + + + | Estimated | 52 (L)Comment: GFR <60: | >60 | [facility] | | | GFR | CHRONIC KIDNEY [...] | | | | | | MDRD IDHI traceable | | | | | | equation.Testing | | | | | | performed at [facility] | | | | | | [facility];[place], [place] | | | | | | [address] | | | | + + + + + + + + | Specimen | + + | Blood | + + + + + + + | Performing | Address | City/State/Zipcode | Phone Number | | Organization | | | | + + + + + | [facility] | [address] | [place] [address] | [phone] | + + + + + Basic Metabolic Panel (11/21/2019 7:35 PM PDT) + + + + + + | Component | Value | Ref Range | Performed | Pathologist | | | | | At | Signature | + + + + + + | Na | 138 | 135 - 145 | [facility] | | | | | mmol/L | LABORATORY | | + + + + + + | K | 4.0 | 3.5 - 4.9 | [facility] | | | | | mmol/L | LABORATORY | | + + + + + + | Cl | 101 | 99 - 109 mmol/L | [facility] | | | | | | LABORATORY | | + + + + + + | CO2 | 30 | 23 - 32 mmol/L | [facility] | | | | | | LABORATORY | | + + + + + + | Anion Gap | 11 | 5 - 20 mmol/L | [facility] | | | | | | LABORATORY | | + + + + + + | Glucose | 98 | 65 - 99 mg/dL | [facility] | | | | | | LABORATORY | | + + + + + + | BUN | 17 | 8 - 25 mg/dL | [facility] | | | | | | LABORATORY | | + + + + + + | Creatinine | 1.07 (H) | 0.50 - 1.00 | [facility] | | | | | mg/dL | LABORATORY | | + + + + + + | BUN/Creatin | 16 | | [facility] | | | ine Ratio | | | LABORATORY | | + + + + + + | Calcium | 8.8 | 8.5 - 10.5 | [facility] | | | | | mg/dL | LABORATORY | | + + + + + + | Estimated | 54 (L)Comment: GFR <60: | >60 | [facility] [...] | | | | | performed at [facility] [id number] | | | | | | [facility];[place], [place] | | | | | | [id number] | | | | + + + + + + + + | Specimen | + + | Blood | + + + + + + + | Performing | Address | City/State/Zipcode | Phone Number | | Organization | | | | + + + + + | [facility] | [address] | [place] [address] | [phone] | + + + + + documented in this encounter Visit Diagnoses + + | Diagnosis | + + | Anemia of chronic disease Anemia of other chronic disease | + + | Chronic pain syndrome | + + | CKD (chronic kidney disease), stage III Chronic kidney disease, Stage III (moderate) | + + | Empyema of pleural space (HCC) | + + | Essential hypertension, benign | + + | Pneumonia of right lower lobe due to methicillin resistant Staphylococcus aureus | | (MRSA) (HCC) | + + | Type 2 diabetes mellitus with diabetic nephropathy, without long-term current use of | | insulin (HCC) | + + | Pulmonary nodules Other nonspecific abnormal finding of lung field | + + | Thrombocytosis (HCC) Essential thrombocythemia | + + | Loculated pleural effusion Unspecified pleural effusion | + + | EAV (acute kidney injury) (HCC) Acute kidney failure, unspecified | + + | Sepsis, due to unspecified organism, unspecified whether acute organ dysfunction | | present (HCC) | + + | Chronic obstructive pulmonary disease, unspecified COPD type (HCC) | + + | Weakness generalized Other malaise and fatigue | + + | Right lower lobe pneumonia Pneumonia, organism unspecified | + + | Hypothyroidism Unspecified hypothyroidism | + + | Cyanocobalamin deficiency Other B-complex deficiencies | + + documented in this encounter Administered Medications + +--------+ +--------+------+------+ | Medication Order | MAR | Action | Dose | Rate | Site | | | Action | Date | | | | + +--------+ +--------+------+------+ | acetaminophen (TYLENOL) tablet | Given | 11/28/19 | 650 mg | | | | 650 mg 650 mg, Oral, EVERY 6 | | 20 8:40 | | | | | HOURS PRN, Fever, or fever >= | | AM PDT | | | | | 38.6 C (101.5 F), Starting Tue | | | | | | | 11/21/19 at 1841 | | | | | | + +--------+ +--------+------+------+ +-------+ +--------+---+---+ | Given | 11/26/19 | 650 mg | | | | | 20 9:34 | | | | | | PM PDT | | | | +-------+ +--------+---+---+ | Given | 11/26/19 | 650 mg | | | | | 20 11:00 | | | | | | AM PDT | | | | +-------+ +--------+---+---+ +---+---+ | | | +---+---+ + +-------+ +---------+---+---+ | albuterol 90 mcg/puff inhaler 2 | Given | 11/29/19 | 2 puffs | | | | puff 2 puff, Inhalation, EVERY | | 20 10:44 | | | | | 4 HOURS PRN, Shortness of Breath, | | AM PDT | | | | | Starting 11/22/19 at 0901, | | | | | | | Shake well. Use with spacer., | | | | | | + +-------+ +---------+---+---+ +---+---+ | | | +---+---+ + +-------+ +-------+---+---+ | alteplase (CATHFLO ACTIVASE) 10 | Given | 11/26/19 | 10 mg | | | | mg in sodium chloride 0.9% 30 mL | | 20 9:14 | | | | | syringe 10 mg, Intrapleural, | | PM PDT | | | | | EVERY 12 HOURS INTERVAL, First | | | | | | | dose (after last reorder) on Wed | | | | | | | 11/24/19 at 1200, For 6 doses, For | | | | | | | intrapleural use only. Instill | | | | | | | into the chest tube over 30 | | | | | | | seconds. Clamp tube for 1 hour | | | | | | | following instillation. Notify | | | | | | | Pharmacy two hours in advance for | | | | | | | alteplase (Activase) | | | | | | | instillation doses. If pt is | | | | | | | anticoagulated, dosing is once | | | | | | | per day. For NON-anticoagulated | | | | | | | patients repeat every 12 hours | | | | | | | for total of 6 doses every 72 | | | | | | | hours. For Anti-coagulated | | | | | | | patients repeat daily for 3 | | | | | | | doses., | | | | | | + +-------+ +-------+---+---+ +-------+ +-------+---+---+ | Given | 11/26/19 | 10 mg | | | | | 20 8:57 | | | | | | AM PDT | | | | +-------+ +-------+---+---+ | Given | 11/25/19 | 10 mg | | | | | 20 9:16 | | | | | | PM PDT | | | | +-------+ +-------+---+---+ +---+---+ | | | +---+---+ + +-------+ +--------+---+---+ | ascorbic acid (VITAMIN C) | Given | 11/29/19 | 500 mg | | | | tablet 500 mg 500 mg, Oral, | | 20 8:01 | | | | | DAILY, First dose on Wed11/22/19 | | AM PDT | | | | | at 0900 | | | | | | + +-------+ +--------+---+---+ +-------+ +--------+---+---+ | Given | 11/28/19 | 500 mg | | | | | 20 8:19 | | | | | | AM PDT | | | | +-------+ +--------+---+---+ | Given | 11/27/19 | 500 mg | | | | | 20 9:14 | | | | | | AM PDT | | | | +-------+ +--------+---+---+ +---+---+ | | | +---+---+ + +-------+ +-------+---+---+ | aspirin EC tablet 81 mg 81 mg, | Given | 11/29/19 | 81 mg | | | | Oral, DAILY, First dose on Fri | | 20 8:01 | | | | | 11/24/19 at 0900 | | AM PDT | | | | + +-------+ +-------+---+---+ +-------+ +-------+---+---+ | Given | 11/28/19 | 81 mg | | | | | 20 8:18 | | | | | | AM PDT | | | | +-------+ +-------+---+---+ | Given | 11/27/19 | 81 mg | | | | | 20 9:14 | | | | | | AM PDT | | | | +-------+ +-------+---+---+ +---+---+ | | | +---+---+ + +-------+ +-------+---+---+ | atorvaSTATin (LIPITOR) tablet | Given | 11/28/19 | 10 mg | | | | 10 mg 10 mg, Oral, NIGHTLY, | | 20 8:33 | | | | | First dose on Wed11/21/19 at 2100 | | PM PDT | | | | + +-------+ +-------+---+---+ +-------+ +-------+---+---+ | Given | 11/27/19 | 10 mg | | | | | 20 9:15 | | | | | | PM PDT | | | | +-------+ +-------+---+---+ | Given | 11/26/19 | 10 mg | | | | | 20 9:24 | | | | | | PM PDT | | | | +-------+ +-------+---+---+ +---+---+ | | | +---+---+ + +-------+ +---------+---+---+ | budesonide-formoterol | Given | 11/29/19 | 2 puffs | | | | (SYMBICORT) 160-4.5 mcg/puff | | 20 8:02 | | | | | inhaler 2 puff 2 puff, | | AM PDT | | | | | Inhalation, RT BID, First dose on | | | | | | | 11/21/19 at 2100 | | | | | | + +-------+ +---------+---+---+ +-------+ +---------+---+---+ | Given | 11/28/19 | 2 puffs | | | | | 20 8:34 | | | | | | PM PDT | | | | +-------+ +---------+---+---+ | Given | 11/28/19 | 2 puffs | | | | | 20 8:24 | | | | | | AM PDT | | | | +-------+ +---------+---+---+ +---+---+ | | | +---+---+ + +-------+ +---+---+---+ | capsaicin (ZOSTRIX) 0.025% | Given | 11/29/19 | | | | | cream Topical, 4 TIMES DAILY, | | 20 12:01 | | | | | First dose on Wed11/21/19 at | | PM PDT | | | | | 2100, Apply to: Other (Comment), | | | | | | | Other location: affected part | | | | | | + +-------+ +---+---+---+ +-------+ +---+---+---+ | Given | 11/29/19 | | | | | | 20 8:03 | | | | | | AM PDT | | | | +-------+ +---+---+---+ | Given | 11/28/19 | | | | | | 20 8:34 | | | | | | PM PDT | | | | +-------+ +---+---+---+ +---+---+ | | | +---+---+ + +---------+ +--------+ +---+ | ceftaroline (TEFLARO) 600 mg in | New Bag | 11/29/19 | 600 mg | 50 mL/hr | | | sodium chloride 0.9% 50 mL IVPB | | 20 9:25 | | | | | 600 mg, Intravenous, Administer | | AM PDT | | | | | over 60 Minutes, EVERY 12 HOURS | | | | | | | INTERVAL, First dose on Fri | | | | | | | 11/24/19 at 1000, Activate system | | | | | | | and mix before use., Indications: | | | | | | | Community Acquired Pneumonia, | | | | | | | MRSA pneumonia, empyema | | | | | | + +---------+ +--------+ +---+ +---------+ +--------+ +---+ | New Bag | 11/28/19 | 600 mg | 50 mL/hr | | | | 20 9:43 | | | | | | PM PDT | | | | +---------+ +--------+ +---+ | New Bag | 11/28/19 | 600 mg | 50 mL/hr | | | | 20 11:07 | | | | | | AM PDT | | | | +---------+ +--------+ +---+ + +---+ | | | + +---+ | dextrose 10% (D10W) infusion | | | at 50 mL/hr, Intravenous, | | | CONTINUOUS PRN, hypoglycemia, | | | Starting 11/21/19 at 1839, | | | Start infusion if unable to | | | maintain blood glucose greater | | | than 70 mg/dL after two rounds of | | | hypoglycemia treatment. Recheck | | | blood glucose 30 minutes after | | | starting D10W then at least | | | hourly and PRN until it is | | | discontinued. Call provider to | | | discuss parameters for D10W | | | discontinuation., | | + +---+ | | | + +---+ | dextrose 50% injection 12.5-25 | | | g 12.5-25 g, Intravenous, PRN, | | | Low Blood Sugar, Starting Tue | | | 11/21/19 at 1839, For blood | | | glucose 50-69 mg/dl - give 12.5 g | | | For blood glucose less than 50 | | | mg/dl - give 25 g, | | + +---+ | | | + +---+ + +-------+ +-----+---+---+ | diclofenac (VOLTAREN) 1% gel 2 | Given | 11/29/19 | 2 g | | | | g 2 g, Topical, 4 TIMES DAILY, | | 20 1:34 | | | | | First dose on Wed11/21/19 at | | PM PDT | | | | | 2100, Do not cover area with | | | | | | | occlusive dressings or wash area | | | | | | | for 1 hour after application. Use | | | | | | | the dosing card to correctly | | | | | | | measure each dose. (2 g = 2.25 | | | | | | | inches, 4 g = 4.5 inches) After | | | | | | | using the dosing card, hold end | | | | | | | with fingertips, rinse and dry. | | | | | | | Store dosing card until next | | | | | | | use., Apply to: Other (Comment), | | | | | | | Other location: To the affected | | | | | | | part | | | | | | + +-------+ +-----+---+---+ +-------+ +-----+---+---+ | Given | 11/28/19 | 2 g | | | | | 20 5:06 | | | | | | PM PDT | | | | +-------+ +-----+---+---+ | Given | 11/24/19 | 2 g | | | | | 20 7:50 | | | | | | AM PDT | | | | +-------+ +-----+---+---+ +---+---+ | | | +---+---+ + +-------+ +-------+---+---+ | diphenhydrAMINE (BENADRYL) | Given | 11/24/19 | 25 mg | | | | injection 25 mg 25 mg, | | 20 9:55 | | | | | Intravenous, ONCE, 11/24/19 at | | AM PDT | | | | | 0930, For 1 dose, Prior to first | | | | | | | dose of ceftaroline, | | | | | | + +-------+ +-------+---+---+ +---+---+ | | | +---+---+ + +-------+ +------+---+---+ | dornase bridger (PULMOZYME) 5 mg | Given | 11/26/19 | 5 mg | | | | in sterile water 30 mL | | 20 11:13 | | | | | intrapleural syringe 5 mg, | | PM PDT | | | | | Intrapleural, EVERY 12 HOURS | | | | | | | INTERVAL, First dose on Wed | | | | | | | 11/24/19 at 1200, For 6 doses, For | | | | | | | intrapleural use only. Follow | | | | | | | same instructions as alteplase, | | | | | | | but instill after alteplase is | | | | | | | drained., | | | | | | + +-------+ +------+---+---+ +-------+ +------+---+---+ | Given | 11/26/19 | 5 mg | | | | | 20 12:36 | | | | | | PM PDT | | | | +-------+ +------+---+---+ | Given | 11/25/19 | 5 mg | | | | | 20 11:21 | | | | | | PM PDT | | | | +-------+ +------+---+---+ +---+---+ | | | +---+---+ + +-------+ +-------+---+---+ | DULoxetine (CYMBALTA) DR | Given | 11/29/19 | 60 mg | | | | capsule 60 mg 60 mg, Oral, | | 20 8:01 | | | | | DAILY, First dose on Wed11/22/19 | | AM PDT | | | | | at 0900, Do not open capsule., | | | | | | + +-------+ +-------+---+---+ +-------+ +-------+---+---+ | Given | 11/28/19 | 60 mg | | | | | 20 8:18 | | | | | | AM PDT | | | | +-------+ +-------+---+---+ | Given | 11/27/19 | 60 mg | | | | | 20 9:14 | | | | | | AM PDT | | | | +-------+ +-------+---+---+ +---+---+ | | | +---+---+ + +-------+ +--------+---+---+ | fentaNYL (PF) injection | Given | 11/23/19 | 50 mcg | | | | Intravenous, PRN, Starting Mag | | 20 10:31 | | | | | 11/23/19 at 1027 | | AM PDT | | | | + +-------+ +--------+---+---+ +-------+ +--------+---+---+ | Given | 11/23/19 | 50 mcg | | | | | 20 10:27 | | | | | | AM PDT | | | | +-------+ +--------+---+---+ +---+---+ | | | +---+---+ + +-------+ +-------+---+---+ | furosemide (LASIX) injection 20 | Given | 11/21/19 | 20 mg | | | | mg 20 mg, Intravenous, ONCE, | | 20 7:41 | | | | | Wed11/21/19 at 1915, For 1 dose | | PM PDT | | | | + +-------+ +-------+---+---+ +---+---+ | | | +---+---+ + +-------+ +--------+---+---+ | gabapentin (NEURONTIN) capsule | Given | 11/29/19 | 300 mg | | | | 300 mg 300 mg, Oral, 3 TIMES | | 20 1:34 | | | | | DAILY, First dose on Wed11/21/19 | | PM PDT | | | | | at 2100 | | | | | | + +-------+ +--------+---+---+ +-------+ +--------+---+---+ | Given | 11/29/19 | 300 mg | | | | | 20 8:01 | | | | | | AM PDT | | | | +-------+ +--------+---+---+ | Given | 11/28/19 | 300 mg | | | | | 20 8:34 | | | | | | PM PDT | | | | +-------+ +--------+---+---+ +---+---+ | | | +---+---+ + +-------+ +------+---+---+ | glimepiride (AMARYL) tablet 2 | Given | 11/29/19 | 2 mg | | | | mg 2 mg, Oral, DAILY WITH | | 20 7:58 | | | | | BREAKFAST, First dose on Wed | | AM PDT | | | | | 11/24/19 at 0800 | | | | | | + +-------+ +------+---+---+ +-------+ +------+---+---+ | Given | 11/28/19 | 2 mg | | | | | 20 9:51 | | | | | | AM PDT | | | | +-------+ +------+---+---+ | Given | 11/27/19 | 2 mg | | | | | 20 9:14 | | | | | | AM PDT | | | | +-------+ +------+---+---+ +---+---+ | | | +---+---+ + +-------+ +--------+---+ + | heparin 5,000 units/mL | Given | 11/29/19 | 5,000 | | Abdomen- | | injection 5,000 Units 5,000 | | 20 1:36 | Units | | LLQ | | Units, Subcutaneous, EVERY 8 | | PM PDT | | | | | HOURS (3 times per day), First | | | | | | | dose on Wed11/21/19 at 2200 | | | | | | + +-------+ +--------+---+ + +-------+ +--------+---+ + | Given | 11/29/19 | 5,000 | | Abdomen- | | | 20 6:16 | Units | | RLQ | | | AM PDT | | | | +-------+ +--------+---+ + | Given | 11/28/19 | 5,000 | | Abdomen- | | | 20 8:35 | Units | | LLQ | | | PM PDT | | | | +-------+ +--------+---+ + +---+---+ | | | +---+---+ + +-------+ +------+---+---+ | HYDROmorphone (DILAUDID) | Given | 11/25/19 | 1 mg | | | | injection 0.5-1 mg 0.5-1 mg, | | 20 3:14 | | | | | Intravenous, EVERY 4 HOURS PRN, | | AM PDT | | | | | Pain, Starting Mag 11/23/19 at | | | | | | | 1348 | | | | | | + +-------+ +------+---+---+ +-------+ +------+---+---+ | Given | 11/24/19 | 1 mg | | | | | 20 10:35 | | | | | | PM PDT | | | | +-------+ +------+---+---+ | Given | 11/24/19 | 1 mg | | | | | 20 3:11 | | | | | | PM PDT | | | | +-------+ +------+---+---+ +---+---+ | | | +---+---+ + +-------+ +------+---+---+ | HYDROmorphone (DILAUDID) | Given | 11/28/19 | 1 mg | | | | injection 0.5-1 mg 0.5-1 mg, | | 20 8:40 | | | | | Intravenous, EVERY 3 HOURS PRN, | | AM PDT | | | | | Pain, for breakthrough pain, | | | | | | | Starting 11/25/19 at 0330 | | | | | | + +-------+ +------+---+---+ +-------+ +------+---+---+ | Given | 11/26/19 | 1 mg | | | | | 20 2:19 | | | | | | PM PDT | | | | +-------+ +------+---+---+ | Given | 11/26/19 | 1 mg | | | | | 20 9:17 | | | | | | AM PDT | | | | +-------+ +------+---+---+ +---+---+ | | | +---+---+ + +-------+ +---------+---+ + | insulin lispro (humaLOG) | Given | 11/29/19 | 1 Units | | Arm-Righ | | injection (vial) 0-6 Units 0-6 | | 20 12:01 | | | t Upper | | Units, Subcutaneous, 4 TIMES | | PM PDT | | | | | DAILY WITH MEALS & NIGHTLY, First | | | | | | | dose on Wed11/21/19 at 2100, | | | | | | | CORRECTION SCALE: Blood Glucose | | | | | | | (BG) < 150: None BG | | | | | | | 150-200: DAY: 1 units. NIGHT: 0 | | | | | | | units BG 201-250: DAY: 2 | | | | | | | units. NIGHT: 1 units BG | | | | | | | 251-300: DAY: 3 units. NIGHT: 2 | | | | | | | units BG 301-350: DAY: 4 units. | | | | | | | NIGHT: 3 units BG 351-400: | | | | | | | DAY: 5 units. NIGHT: 4 units | | | | | | | BG > 400 : DAY: 6 units. | | | | | | | NIGHT: 5 units | | | | | | | AND CALL PROVIDER Use DAY | | | | | | | DOSE for doses scheduled: | | | | | | | AC, NPO, Daytime [id number] Use | | | | | | | NIGHT DOSE for doses scheduled: | | | | | | | HS, Nighttime [id number] If | | | | | | | the BG is not checked before the | | | | | | | patient starts eating, do not | | | | | | | give correction insulin. Only for | | | | | | | use with U-100 insulin syringe., | | | | | | | | | | | | | + +-------+ +---------+---+ + +-------+ +---------+---+ + | Given | 11/28/19 | 1 Units | | Abdomen- | | | 20 11:59 | | | LLQ | | | AM PDT | | | | +-------+ +---------+---+ + | Given | 11/27/19 | 1 Units | | Abdomen- | | | 20 12:42 | | | LLQ | | | PM PDT | | | | +-------+ +---------+---+ + +---+---+ | | | +---+---+ + +-------+ +-------+---+---+ | ketorolac (TORADOL) injection | Given | 11/22/19 | 15 mg | | | | 15 mg 15 mg, Intravenous, ONCE, | | 20 1:18 | | | | | 11/22/19 at 1315, For 1 dose | | PM PDT | | | | + +-------+ +-------+---+---+ +---+---+ | | | +---+---+ + +---------+ +--------+-------+---+ | levoFLOXacin in dextrose | New Bag | 11/23/19 | 750 mg | 100 | | | (LEVAQUIN) IVPB 750 mg 750 mg, | | 20 7:58 | | mL/hr | | | Intravenous, Administer over 90 | | PM PDT | | | | | Minutes, DAILY, First dose on Wed | | | | | | | 11/21/19 at 2030, Indications: | | | | | | | Community Acquired Pneumonia | | | | | | + +---------+ +--------+-------+---+ +---------+ +--------+-------+---+ | New Bag | 11/22/19 | 750 mg | 100 | | | | 20 8:58 | | mL/hr | | | | PM PDT | | | | +---------+ +--------+-------+---+ | New Bag | 11/21/19 | 750 mg | 100 | | | | 20 10:03 | | mL/hr | | | | PM PDT | | | | +---------+ +--------+-------+---+ +---+---+ | | | +---+---+ + +-------+ +---------+---+---+ | levothyroxine (SYNTHROID) | Given | 11/29/19 | 175 mcg | | | | tablet 175 mcg 175 mcg, Oral, | | 20 6:17 | | | | | DAILY BEFORE BREAKFAST, First | | AM PDT | | | | | dose (after last modification) on | | | | | | | 11/24/19 at 0730, Give before | | | | | | | breakfast., | | | | | | + +-------+ +---------+---+---+ +-------+ +---------+---+---+ | Given | 11/28/19 | 175 mcg | | | | | 20 5:54 | | | | | | AM PDT | | | | +-------+ +---------+---+---+ | Given | 11/27/19 | 175 mcg | | | | | 20 6:12 | | | | | | AM PDT | | | | +-------+ +---------+---+---+ +---+---+ | | | +---+---+ + +-------+ +------+---+---+ | lisinopril (PRINIVIL, ZESTRIL) | Given | 11/29/19 | 5 mg | | | | tablet 5 mg 5 mg, Oral, DAILY, | | 20 8:01 | | | | | First dose on Wed11/22/19 at 0900 | | AM PDT | | | | + +-------+ +------+---+---+ +-------+ +------+---+---+ | Given | 11/28/19 | 5 mg | | | | | 20 8:19 | | | | | | AM PDT | | | | +-------+ +------+---+---+ | Given | 11/27/19 | 5 mg | | | | | 20 9:14 | | | | | | AM PDT | | | | +-------+ +------+---+---+ +---+---+ | | | +---+---+ + +---------+ +-----+ +---+ | magnesium sulfate 2 g/50 mL | New Bag | 11/22/19 | 2 g | 25 mL/hr | | | IVPB 2 g 2 g, Intravenous, | | 20 12:56 | | | | | Administer over 120 Minutes, | | PM PDT | | | | | ONCE, Wed11/22/19 at 1230, For 1 | | | | | | | dose, Maximum recommended | | | | | | | infusion rate = 1 gram/hour., | | | | | | + +---------+ +-----+ +---+ +---+---+ | | | +---+---+ + +-------+ +------+---+---+ | melatonin tablet 3 mg 3 mg, | Given | 11/23/19 | 3 mg | | | | Oral, NIGHTLY PRN, Insomnia, | | 20 7:57 | | | | | Starting 11/21/19 at 1841 | | PM PDT | | | | + +-------+ +------+---+---+ +-------+ +------+---+---+ | Given | 11/22/19 | 3 mg | | | | | 20 8:39 | | | | | | PM PDT | | | | +-------+ +------+---+---+ +---+---+ | | | +---+---+ + +-------+ +-------+---+---+ | metoprolol tartrate (LOPRESSOR) | Given | 11/29/19 | 50 mg | | | | tablet 50 mg 50 mg, Oral, 2 | | 20 8:01 | | | | | TIMES DAILY, First dose on Wed | | AM PDT | | | | | 11/21/19 at 2100 | | | | | | + +-------+ +-------+---+---+ +-------+ +-------+---+---+ | Given | 11/28/19 | 50 mg | | | | | 20 8:33 | | | | | | PM PDT | | | | +-------+ +-------+---+---+ | Given | 11/28/19 | 50 mg | | | | | 20 8:18 | | | | | | AM PDT | | | | +-------+ +-------+---+---+ +---+---+ | | | +---+---+ + +-------+ +------+---+---+ | midazolam (VERSED) 1 mg/mL | Given | 11/23/19 | 1 mg | | | | injection Intravenous, PRN, | | 20 10:31 | | | | | Starting [facility] 11/23/19 at 1027 | | AM PDT | | | | + +-------+ +------+---+---+ +-------+ +------+---+---+ | Given | 11/23/19 | 1 mg | | | | | 20 10:27 | | | | | | AM PDT | | | | +-------+ +------+---+---+ +---+---+ | | | +---+---+ + +-------+ +-------+---+---+ | montelukast (SINGULAIR) tablet | Given | 11/28/19 | 10 mg | | | | 10 mg 10 mg, Oral, NIGHTLY, | | 20 8:34 | | | | | First dose on Wed11/21/19 at 2100 | | PM PDT | | | | + +-------+ +-------+---+---+ +-------+ +-------+---+---+ | Given | 11/27/19 | 10 mg | | | | | 20 9:15 | | | | | | PM PDT | | | | +-------+ +-------+---+---+ | Given | 11/26/19 | 10 mg | | | | | 20 9:24 | | | | | | PM PDT | | | | +-------+ +-------+---+---+ +---+---+ | | | +---+---+ + +-------+ +---+---+---+ | nystatin (MYCOSTATIN) cream | Given | 11/22/19 | | | | | Topical, 2 TIMES DAILY, First | | 20 9:04 | | | | | dose on Wed11/21/19 at 2100, | | AM PDT | | | | | Apply to: Other (Comment), Other | | | | | | | location: affected areas | | | | | | + +-------+ +---+---+---+ +---+---+ | | | +---+---+ + +-------+ +------+---+---+ | ondansetron (ZOFRAN) injection | Given | 11/27/19 | 4 mg | | | | 4 mg 4 mg, Intravenous, EVERY 6 | | 20 12:05 | | | | | HOURS PRN, Nausea, Vomiting, | | PM PDT | | | | | Starting Wed11/21/19 at 1842, | | | | | | | First line agent, | | | | | | + +-------+ +------+---+---+ +-------+ +------+---+---+ | Given | 11/26/19 | 4 mg | | | | | 20 10:08 | | | | | | PM PDT | | | | +-------+ +------+---+---+ | Given | 11/23/19 | 4 mg | | | | | 20 8:22 | | | | | | AM PDT | | | | +-------+ +------+---+---+ +---+---+ | | | +---+---+ + +-------+ +------+---+---+ | oxyCODONE (ROXICODONE) tablet 5 | Given | 11/23/19 | 5 mg | | | | mg 5 mg, Oral, EVERY 6 HOURS | | 20 11:29 | | | | | PRN, Moderate Pain, Severe Pain, | | AM PDT | | | | | Starting 11/21/19 at 1839 | | | | | | + +-------+ +------+---+---+ +-------+ +------+---+---+ | Given | 11/23/19 | 5 mg | | | | | 20 1:22 | | | | | | AM PDT | | | | +-------+ +------+---+---+ | Given | 11/22/19 | 5 mg | | | | | 20 4:48 | | | | | | PM PDT | | | | +-------+ +------+---+---+ +---+---+ | | | +---+---+ + +-------+ +-------+---+---+ | oxyCODONE (ROXICODONE) tablet | Given | 11/26/19 | 10 mg | | | | 5-10 mg 5-10 mg, Oral, EVERY 4 | | 20 8:49 | | | | | HOURS PRN, Moderate Pain, Severe | | AM PDT | | | | | Pain, Starting Mag 11/23/19 at | | | | | | | 1400 | | | | | | + +-------+ +-------+---+---+ +-------+ +-------+---+---+ | Given | 11/26/19 | 10 mg | | | | | 20 3:50 | | | | | | AM PDT | | | | +-------+ +-------+---+---+ | Given | 11/25/19 | 10 mg | | | | | 20 8:10 | | | | | | PM PDT | | | | +-------+ +-------+---+---+ +---+---+ | | | +---+---+ + +-------+ +-------+---+---+ | oxyCODONE (ROXICODONE) tablet | Given | 11/26/19 | 15 mg | | | | 5-15 mg 5-15 mg, Oral, EVERY 4 | | 20 5:13 | | | | | HOURS PRN, Pain, Starting Sun | | PM PDT | | | | | 11/26/19 at 0911 | | | | | | + +-------+ +-------+---+---+ +-------+ +-------+---+---+ | Given | 11/26/19 | 15 mg | | | | | 20 12:38 | | | | | | PM PDT | | | | +-------+ +-------+---+---+ +---+---+ | | | +---+---+ + +-------+ + +---+---+ | oxyCODONE-acetaminophen | Given | 11/29/19 | 1 tablet | | | | (PERCOCET) 5-325 mg per tablet 1 | | 20 1:34 | | | | | tablet 1 tablet, Oral, EVERY 6 | | PM PDT | | | | | HOURS PRN, Pain, Starting Mon | | | | | | | 11/27/19 at 0909 | | | | | | + +-------+ + +---+---+ +-------+ + +---+---+ | Given | 11/29/19 | 1 tablet | | | | | 20 6:34 | | | | | | AM PDT | | | | +-------+ + +---+---+ | Given | 11/28/19 | 1 tablet | | | | | 20 11:08 | | | | | | PM PDT | | | | +-------+ + +---+---+ +---+---+ | | | +---+---+ + +-------+ +-------+---+---+ | pantoprazole (PROTONIX) DR | Given | 11/29/19 | 40 mg | | | | tablet 40 mg 40 mg, Oral, DAILY | | 20 6:17 | | | | | BEFORE BREAKFAST, First dose on | | AM PDT | | | | | 11/22/19 at 0730, Indication: | | | | | | | GERD | | | | | | + +-------+ +-------+---+---+ +-------+ +-------+---+---+ | Given | 11/28/19 | 40 mg | | | | | 20 5:53 | | | | | | AM PDT | | | | +-------+ +-------+---+---+ | Given | 11/27/19 | 40 mg | | | | | 20 6:12 | | | | | | AM PDT | | | | +-------+ +-------+---+---+ +---+---+ | | | +---+---+ + +-------+ +--------+---+---+ | senna (SENOKOT) tablet 8.6 mg | Given | 11/27/19 | 8.6 mg | | | | 8.6 mg, Oral, 2 TIMES DAILY PRN, | | 20 7:02 | | | | | Constipation, Starting Tue | | PM PDT | | | | | 11/21/19 at 1841, If docusate | | | | | | | ineffective or not ordered., | | | | | | + +-------+ +--------+---+---+ +---+---+ | | | +---+---+ + +---------+ +---------+-------+---+ | sodium chloride 0.9% (NS) bolus | New Bag | 11/26/19 | 500 mLs | 250 | | | 500 mL 500 mL, Intravenous, | | 20 8:19 | | mL/hr | | | Administer over 2 Hours, ONCE, | | PM PDT | | | | | 11/26/19 at 2030, For 1 dose | | | | | | + +---------+ +---------+-------+---+ +---+---+ | | | +---+---+ + +---------+ +---------+-------+---+ | sodium chloride 0.9% (NS) bolus | New Bag | 11/26/19 | 500 mLs | 250 | | | 500 mL 500 mL, Intravenous, | | 20 11:13 | | mL/hr | | | Administer over 2 Hours, ONCE, | | PM PDT | | | | | 11/26/19 at 2330, For 1 dose | | | | | | + +---------+ +---------+-------+---+ +---+---+ | | | +---+---+ + +---------+ +---+-------+---+ | sodium chloride 0.9% (NS) | New Bag | 11/24/19 | | 100 | | | infusion at 100 mL/hr, | | 20 10:04 | | mL/hr | | | Intravenous, CONTINUOUS, Starting | | PM PDT | | | | | [facility] 11/23/19 at 1115, Please | | | | | | | discontinue IV fluids after one | | | | | | | more litre of IV fluids. Thank | | | | | | | you, | | | | | | + +---------+ +---+-------+---+ +---------+ +---+-------+---+ | New Bag | 11/24/19 | | 100 | | | | 20 12:18 | | mL/hr | | | | AM PDT | | | | +---------+ +---+-------+---+ | New Bag | 11/23/19 | | 100 | | | | 20 1:31 | | mL/hr | | | | PM PDT | | | | +---------+ +---+-------+---+ +---+---+ | | | +---+---+ + +-------+ +---------+---+---+ | tiotropium (SPIRIVA RESPIMAT) | Given | 11/29/19 | 2 puffs | | | | 2.5 mcg/puff inhaler 2 puff 2 | | 20 8:02 | | | | | puff, Inhalation, RT DAILY, First | | AM PDT | | | | | dose on Wed11/22/19 at 0900 | | | | | | + +-------+ +---------+---+---+ +-------+ +---------+---+---+ | Given | 11/28/19 | 2 puffs | | | | | 20 8:24 | | | | | | AM PDT | | | | +-------+ +---------+---+---+ | Given | 11/27/19 | 2 puffs | | | | | 20 9:30 | | | | | | AM PDT | | | | +-------+ +---------+---+---+ +---+---+ | | | +---+---+ + +-------+ +--------+---+---+ | traZODone (DESYREL) tablet 100 | Given | 11/28/19 | 100 mg | | | | mg 100 mg, Oral, NIGHTLY, First | | 20 8:33 | | | | | dose (after last modification) on | | PM PDT | | | | | 11/21/19 at 2100 | | | | | | + +-------+ +--------+---+---+ +-------+ +--------+---+---+ | Given | 11/27/19 | 100 mg | | | | | 20 9:15 | | | | | | PM PDT | | | | +-------+ +--------+---+---+ | Given | 11/26/19 | 100 mg | | | | | 20 10:08 | | | | | | PM PDT | | | | +-------+ +--------+---+---+ +---+---+ | | | +---+---+ + +---------+ + +-------+---+ | vancomycin 2,500 mg in sodium | New Bag | 11/21/19 | 2,500 mg | 210 | | | chloride 0.9% 500 mL IVPB 2,500 | | 20 10:15 | | mL/hr | | | mg (rounded from 2,410 mg = 25 | | PM PDT | | | | | mg/kg | | | | | | | 96.4 kg Adjusted weight), | | | | | | | Intravenous, Administer over 150 | | | | | | | Minutes, ONCE, Wed11/21/19 at | | | | | | | 2100, For 1 dose, Keep in | | | | | | | refrigerator., Indications: | | | | | | | Community Acquired Pneumonia | | | | | | + +---------+ + +-------+---+ +---+---+ | | | +---+---+ + +---------+ + +--------+---+ | vancomycin in NS (VANCOCIN) | New Bag | 11/22/19 | 1,500 mg | 166.7 | | | IVPB 1,500 mg 1,500 mg (rounded | | 20 10:46 | | mL/hr | | | from 1,446 mg = 15 mg/kg | | PM PDT | | | | | 96.4 kg Adjusted weight), | | | | | | | Intravenous, Administer over 90 | | | | | | | Minutes, EVERY 12 HOURS INTERVAL, | | | | | | | First dose on Wed11/22/19 at | | | | | | | 1000, vanco trough 11/22 @ 0900. | | | | | | | Please hold 1000 dose on 11/22 | | | | | | | until level results and can be | | | | | | | evaluated. Keep in refrigerator., | | | | | | | Indications: | | | | | | | Healthcare-Associated Pneumonia | | | | | | + +---------+ + +--------+---+ +---------+ + +--------+---+ | New Bag | 11/22/19 | 1,500 mg | 166.7 | | | | 20 9:32 | | mL/hr | | | | AM PDT | | | | +---------+ + +--------+---+ +---+---+ | | | +---+---+ documented in this encounter Additional Health Concerns + + + + + | Infection | Onset Date | Last Indicated | Resolved Time | + + + + + | Rule out C. | 11/21/2019 | 11/21/2019 | 11/27/2019 4:33 PM | | Difficile | | | PDT | + + + + + documented as of this encounter
--- OUTSIDE RECORDS SUMMARY | ~2020-03-31 | XMS | Encounter Summary ---
Demographics + + + | Address | [address] | | | [place] [address] | + + + | Home Phone [...] Author + + + | Author | [facility] | | | and [place] | + + + | Organization | [facility] | | | and [...] Team Providers + +------+ + | Care Doll Eye Setter Name | Role | Phone | + +------+ + | Roberth Gaspar MD | PCP | | + +------+ + Encounter Details +--------+ + + + + | Date | Type | Department | Care Team | Description | +--------+ + + + + | 04/29/ | Abstract | [facility] [place] | Oc Mooney, | | | 2015 | | PHYSIATRY [address] | MD [address] | | | | | [address] | [place], [place] | | | | | [place], [place] | [address] | | | | | [address] | | | | | | [phone] | | | +--------+ + + + [...]
--- OUTSIDE RECORDS SUMMARY | ~2020-03-31 | XMS | Encounter Summary ---
Demographics + + + | Address | [address] | | | [place] [address] | + + + | Home Phone [...] + + + | Author | [facility] | | | and [place] | + + + | Organization | [facility] | | [...] Team Providers + +------+ + | Care Blind Slat Stapling Machine Operator Name | Role | Phone | + +------+ + | Robreth Gaspar MD | PCP | | + [...] | hand | [address] | | | | n | numbness | [address] | [place], | | | | | Hand | [place], | [place] [address] | | | | | weakness | [place] [address] | Phone: | | | | | History of | Phone: | [phone] | | | | | diabetes | [phone] | Fax: | | | | | mellitus | Fax: | [phone] | | | | | Procedures | [phone] | | | | | | DOS [...] 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 [address] | [address] | | | | 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 | [address] | [place], | | | | | degeneration | [address] | [place] [address] | | | | | , lumbar | [place], | Phone: | | | | | region | [place] | [phone] | | | | | Neuropathy | [address] | Fax: | | | | | | Phone: | [phone] | | | | | | [phone] | | | | | | | Fax: | | | | | | | [phone] | | +--------+--------+ + + + + Encounter Details +--------+---------+ + + + | Date | Type | Department | Care Team | Description | +--------+---------+ + + + | 05/04/ | Office | [facility] | Oc Mooney, | Bilateral hand | | 2015 | Visit | PHYSIATRY [address] | MD [address] | numbness (Primary | | | | [address] | [place] | Dx); Hand weakness; | | | | [place] | [address] | History of diabetes | | | | [address] | | mellitus; Brisk deep | | | | [phone] | | tendon reflexes | +--------+---------+ + [...] complain of bilateral hand numbness. HPI Petra Dangeol reports that she started having bilateral hand [...] finger abduction bilaterally. There is 4/5 hand shadowgraph scale operator bilaterally Reflexes: 3+ brisk and symmetric over [...] was spent face to face with Petra Finesse Dangelo, over half of which w as spent formulating and discussing their medical treatment plan. Oc Mooney MD (.) Cc: Roberth Gaspar MD documented in this [...]
--- OUTSIDE RECORDS SUMMARY | ~2020-03-31 | XMS | Encounter Summary ---
Demographics + + + | Address | [address] | | | [place] [address] | + + + | Home Phone | | + + + | Preferred Language | Unknown | + + + | Marital Status | Legally | + + + | Nondenominational Affiliation | Unknown | + + + | Race | White | + + + | Ethnic Group | Not or | + + + Author + + + | Author | [facility] | | | and [place] | + + + | Organization | [facility] | | | [...] Team Providers + +------+ + | Care Computer Systems Hardware Analyst Name | Role | Phone | [...] + + | 12/06/ | Documentati | [facility] | Leif Kenyon DO | Results (LABS | | 2020 | on | INFECTIOUS DISEASE | [address] | 12/06/2019) | | | | [address] | [place] [address] | | | | | [place], [place] | [phone] | | | | | [address] | | | | | | [phone] | | | +--------+ + + + [...] of this encounter Progress Notes Nelson Rivera, Seamless Tube Mill Operator - 12/07/2019 4:29 PM PDTLab: MARK, CMP DOS:12/06/2019 Received from:NATHANAEL العراقي Abstracted into Testive and sent to scan: YES Abstracted by: [...]
--- OUTSIDE RECORDS SUMMARY | ~2020-03-31 | XMS | Clinical Summary ---
Demographics + + + | Address | [address] | | | [place] [address] | + + + | Home Phone [...] + + + | Author | [facility] | | | and [place] | + + + | Organization | [facility] | | [...] Team Providers + +------+ + | Care Assistant Merchandise Manager Name | Role | Phone | [...] | 03/17 | | e | | 5 mg [...] of one capsule in | | | 3 | | e | | capsule | [...] 9/20 | | e | | ol (MIRNA DICKINSON | times daily. | | | 20 [...] | +--------+ + + + + | 03/13/ | Documentati | Infectious Diseases | Leif Kenyon DO | Other (03/05/20 Good | | 2020 | on | | | Yao NEUMANN) | +--------+ + + + + from [...] | [employer] | MOD[employer] | [id number] | 06/28/19 | [phone] | | Medica | | MEDICAID HMO | HEALTH | | 13-Pre | 1 | | id | | | MDCD | | [place] | | | | | | [place] | | | | | | + +--------+ +--------+ +---------+--------+ | [employer] | [employer] | [id number] | | [phone] | | [employer]ica | | [...] | | [address] | | | al/Fam | | 1965 | [phone] | [place], [place] | | | charlie | | | 2 (Home) | [address] | + +--------+ +--------+ + + | Petra Dangelo | Person | Self | [birth year] | | [address] | | | al/Fam | | 1965 | [phone] | [place], [place] | | | charlie | | | 2 ([place]) | [address] | + +--------+ +--------+ + + Advance Directives + + + + + | Type | Date Recorded | Patient | Explanation | | | | Conference Manager | | + + + + + | Power of | | | | | Flat Spring Assembler | | | | + + + [...]
--- OUTSIDE RECORDS SUMMARY | ~2020-03-31 | XMS | Encounter Summary ---
Demographics + + + | Address | [address] | | | [place] [address] | + + + | Home Phone [...] Author + + + | Author | [facility] | | | and [place] | + + + | Organization | [facility] | | [...] Team Providers + +------+ + | Care Analytical Scientist Name | Role | Phone | + +------+ + | Roberth Gaspar MD | PCP | | + +------+ + Encounter Details +--------+ + + + + | Date | Type | Department | Care Team | Description | +--------+ + + + + | 11/04/ | Orders Only | [facility] | Conversion | | | 2017 | | NEPHROLOGY [place] | Transaction, | | | | | [address] | Provider Unknown | | | | | [address] [place], [place] | | | | | | [address] | (Fax) | | | | | [phone] | | | +--------+ + + + [...]
--- OUTSIDE RECORDS SUMMARY | ~2020-03-31 | XMS | Encounter Summary ---
Demographics + + + | Address | [address] | | | [place] [address] | + + + | Home Phone [...] Team Providers + +------+ + | Care Geophysics Professor Name | Role | Phone | + +------+ + | No, Unknownpcp | PCP | | + +------+ + Encounter Details +--------+ + + + + | Date | Type | Department | Care Team | Description | +--------+ + + + + | 01/07/ | Hospital | [facility] | Mookie Busatmante, | | | 2013 - | Encounter | MED CTR MED ON[facility] | [address] | | | | | [address] | [place] | | | 01/11/ | | [place] [address] | [address] | | | 2012 | | [phone] | | | +--------+ + + + [...] Bustamante MD - 01/11/2013 9:47 [place] [address] Patient Name: PHOENIX DANGELO Provider: Mookie Bustamante MD Unit #: [id number] Location: [address] [place], [place] [address]t #: [id number] : 1965 ADMISSION DATE: 01/07/2013 DISCHARGE DATE: [...] Dr. Harvey. She saw Dr. Castro bose, bottle machine operator, who did beside debridement. He recommended that [...] was to have her go home with [place] [facility]. However, the patient says her father will not allow that. Thus, she will be going to the [facility]. I did speak with Dr. Noe Gaspar on the phone on 01/10/2013. She needs to fol low up with him but she also should have the bottle machine operator to see her and I would say within s ix days. Ideally, you could have the bottle machine operator come to the [facility]. Check with Dr. Noe Gaspar which bottle machine operator he wants her to see. She has seen a bottle machine operator in the [facility] t. DISPOSITION: The patient to be discharged to the fdc in improved condition. DIET: Will be diabetic, low fat, low cholesterol. She should work with physical therapy and if you have a wound care nurse as well. She can ambulate but I would have her minimize pressure on her right forefoot where she has the [facility] er. CODE STATUS: FULL CODE. [...] Hypoglycemia protocol. We have one here but fdc might have one but we include d ours. Glucoscans before meals. Again, she needs close followup with Dr. Noe Gaspar as well as contact Dr. Noe Jara [facility]'s office for which bottle machine operator to see and ideally the bottle machine operator should start seeing he r at the fdc and have your wound care team see her as well in the fdc. Time of discharge more than 30 minutes. DICTATED BY: Mookie Bustamante MD Internal Medicine JOB #: [id number] EXT JOB #:[id number] cc: Dr Noe Gaspar in [facility] <<Signature on File>> Mookie Bustamante MD0 01/13/13 0536 <Electronically signed by Mookie Bustamante MD> documented in this encounter H&P Notes Provider Not, In System - 01/07/2013 4:10 [place] [address] Patient Name: DANICAPHOENIX Provider: Lam Harvey MD Unit #: [id number] Location: [facility] : 1965 DATE: 01/07/2013 CHIEF COMPLAINT: Swollen foot. HISTORY OF PRESENT ILLNESS: Ms. Dangelo is a 47-year-old white female followed by Dr. Rick darnell in [place] who has diabetes mellitus type 2 and [...] she went to the emergency department in [facility] she was found to have a significant cellulitis, was given vancomycin and was transferred to [place] primarily because of some hyperkalemia and some [...] off. LABORATORY STUDIES: Laboratory studies done in [place] show a blood sugar 152. BUN 34, [...] on culture. Blood cultures were obtained in [place] and I will cu lture the open lesion. I suspect her potassium will normalize with the Kayexalate and the w ithdrawal of triamterene and nonsteroidals. I expect the patient will do well. DICTATED BY: Lam Harvey MD JOB #: [id number] EXT JOB #:[id number] cc: Noe Gaspar MD <<Signature on File>> [...] Performed At | + + + | [facility] | CRESTLINE | | Department [address] [place] [address] | [facility] | | [ rep ct street1+2] [ rep [facility] | | [facility] [[email or web address]]] Signed | - IMAGING | | | | | Patient Name: PHOENIX DANGELO Physician: | | | RASC. : 1965 Age: 47 Sex: F Unit #: [id number] | | | Exam Date: 01/10/13 Location: [address] [place] [address] | | | Report #: [id number] Page: | | | %(RAD)RES..mtdd.print.filter("pg") of %(RAD) | | | RES..mtdd.print.filter("tpg") | | | | | | Accession Number: [id number]; [id number]; | | | [id number], [id number] PICC | | | LINE PLACEMENT CLINICAL [...] Transcribed | | | Date/Time: 01/10/2013 17:07 Auditor/Quality: | | | <<Signature on File>> | | | Campbell | | | Eloise Ocasio MD01/11/13 1032 <Electronically signed by Campbell Navas | | | Amarjit KAPLAN> Campbell Ocasio MD 01/11/13 08 | | | Auditor/Quality: Chantel Pnxctrhzudemz43/17/13829 | | | | | + + + + + + + + | Performing | Address | City/State/Zipcode | Phone Number | | Organization | | | | + + + + + | [facility] | [address] | [place] | [phone] | | [facility] | | [address] | | | - IMAGING | | | | + + + + + XR Chest PA or AP (01/11/2013 8:30 AM PDT) + + | Specimen | + + | | + + + + + | Narrative | Performed At | + + + | [facility] | CRESTLINE | | Department [address] [place] [address] | [facility] | | [ rep ct street1+2] [ rep [facility] | | [facility] [[email or web address]]] Signed | - IMAGING | | | | | Patient Name: PHOENIX DANGELO Physician: | | | SANDI.01 : 1965 Age: 47 Sex: F Unit #: [id number] | | | Exam Date: 01/10/13 Location: [address] [place] [address] | | | Report #: [id number] Page: | | | %(RAD)RES..mtdd.print.filter("pg") of %(RAD) | | | RES..mtdd.print.filter("tpg") | | | | | | Accession Number: [id number]; [id number]; | | | [id number], [id number], [id number], [id number] PICC | | | LINE PLACEMENT CLINICAL [...] Transcribed | | | Date/Time: 01/10/2013 17:07 Auditor/Quality: | | | <<Signature on File>> | | | Campbell | | | Eloise Ocasio MD01/11/13 1032 <Electronically signed by Campbell Navas | | | Amarjit KAPLAN> Campbell Ocasio MD 01/11/13 08 | | | Auditor/Quality: Umbrella Herenahomi Jnnqutycnvslk57/17/1330 | | | | | + + + + + + + + | Performing | Address | City/State/Zipcode | Phone Number | | Organization | | | | + + + + + | [facility] | [address] | [place] | [phone] | | [facility] | | [address] | | | - IMAGING | | | | + + + + + XR Chest PA or AP (01/11/2013 8:30 AM PDT) + + | Specimen | + + | | + + + + + | Narrative | Performed At | + + + | [facility] | CRESTLINE | | Department [address] | [facility] | | [ rep ct street1+2] [ rep [facility] | | st zip] Signed | - IMAGING | | | | | Patient Name: PHOENIX DANGELO Physician: | | | RASC.01 : 1965 Age: 47 Sex: F Unit #: [id number] | | | Exam Date: 01/10/13 Location: [address] [place] [address] | | | Report #: [id number] Page: | | | %(RAD)RES..mtdd.print.filter("pg") of %(RAD) | | | RES..mtdd.print.filter("tpg") | | | | | | Accession Number: [id number]; [id number]; | | | [id number], [id number], [id number], [id number] PICC | | | LINE PLACEMENT CLINICAL [...] Transcribed | | | Date/Time: 01/10/2013 17:07 Auditor/Quality: | | | <<Signature on File>> | | | Campbell | | | Eloise Ocasio MD01/11/13 1032 <Electronically signed by Campbell Navas | | | Amarjit KAPLAN> Campbell Ocasio MD 01/11/13 0830 | | | Auditor/Quality: Umbrella Herenahomi Esqmztflfpdiw64/17/13 0830 | | | | | + + + + + + + + | Performing | Address | City/State/Zipcode | Phone Number | | Organization | | | | + + + + + | [facility] | [address] | [place] | [phone] | | [facility] | | [address] | | | - IMAGING | | | | + + + + + XR Chest PA or AP (01/10/2013 3:18 PM PDT) + + | Specimen | + + | | + + + + + | Narrative | Performed At | + + + | [facility] | CRESTLINE | | Department [address] [facility] [facility] | [facility] | | [ rep ct street1+2] [ rep [facility] | | st zip] Signed | - IMAGING | | | | | Patient Name: PHOENIX DANGELO Physician: | | | YE.01 : 1965 Age: 47 Sex: F Unit #: [id number] | | | Exam Date: 01/10/13 Location: [address] [place] [address] | | | Report #: [id number] Page: | | | %(RAD)RES..mtdd.print.filter("pg") of %(RAD) | | | RES..mtdd.print.filter("tpg") | | | | | | Accession Number: [id number] | | | [id number], [id number], [id number] PICC LINE PLACEMENT | | | CLINICAL [...] Transcribed Date/Time: 01/10/2013 17:07 | | | Auditor/Quality: <<Signature on File>> | | | | | | Campbell cOasio MD01/10/13 8522 <Electronically signed by Campbell Navas | | | Amarjit KAPLAN> Campbell Ocasio MD 01/10/13 9884 | | | Auditor/Quality: Chantel Izrfeqygkqqmt55/16/13 0853 | | | | | + + + + + + + + | Performing | Address | City/State/Zipcode | Phone Number | | Organization | | | | + + + + + | [facility] | [address] | [place], [place] | [phone] | | [facility] | | [address] | | | - IMAGING | | [...] | | Basophils | | | [facility] | | | | | | MEDICAL [...] + | [facility] | [address] | [place], [place] | [phone] | | [facility] | | [address] | | | - LABORATORY | | | | + + + + + | [facility] | [address] | [place], [place] | | | [facility] | | [id number] [place] [address] | | | - LABORATORY | | [...] | 0.86 | 0.60 - 1.30 | [facility] | | | | | mg/dL | [facility] | | | | | | [facility] | | | | | | [facility] - | | | | | | LABORATORY | | + + + + + + | Estimated | >60Comment: For | >60 mL/min/A | [facility] | | | GFR | -Americans, [...] + | [facility] | [address] | [place], [place] | [phone] | | [facility] | | [address] | | | - LABORATORY | | | | + + + + + | [facility] | [address] | [place], [place] | | | [facility] | | [address] | | | - [...] + | [facility] | [address] | [place], [place] | [phone] | | [facility] | | [address] | | | - LABORATORY | | | | + + + + + | [facility] | [address] | [place], [place] | | | [facility] | | [address] [place] [address] | | | - LABORATORY | | [...] + | [facility] | [address] | [place], [place] | [phone] | | [facility] | | [address] | | | - LABORATORY | | | | + + + + + | [facility] | [address] | [place], [place] | | | [facility] | | [address], [facility] | | | - LABORATORY | [...] + | [facility] | [address] | [place] | [phone] | | [facility] | | [address] | | | - LABORATORY | | | | + + + + + | [facility] | [address] | [place], [place] | | | [facility] | | [id number] [place] [address] | | | - LABORATORY | | [...] [address] | [place] | [phone] | | [facility] | | [address] | | | - LABORATORY | | | | + + + + + | [facility] | [address] | [place] | | | [facility] | | [address], [facility] | | | - LABORATORY | [...] + | [facility] | [address] | [place], [place] | [phone] | | [facility] | | [address] | | | - LABORATORY | | | | + + + + + | [facility] | [address] | [place] | | | [facility] | | [address] [place] [address] | | | - LABORATORY | | [...] + | [facility] | [address] | [place], [place] | [phone] | | [facility] | | [address] | | | - LABORATORY | | | | + + + + + | [facility] | [address] | [place], [place] | | | [facility] | | [address] | | | - [...] [address] | [place] | [phone] | | [facility] | | [address] | | | - LABORATORY | | | | + + + + + | [facility] | [address] | [place], [place] | | | [facility] | | [address] | | | - [...] + | [facility] | [address] | [place], [place] | [phone] | | [facility] | | [address] | | | - LABORATORY | | | | + + + + + | [facility] | [address] | [place], [place] | | | [facility] | | [id number] [place] [address] | | | - LABORATORY | | [...] | | | | | | Standards [employer] | | | | | | Rifampin [...] | | | | | | Standards [place] | | | | | | Rifampin [...] + | [facility] | [address] | [place] | [phone] | | [facility] | | [address] | | | - LABORATORY | | | | + + + + + | [facility] | [address] | [place] | | | [facility] | | [address] [place] [address] | | | - LABORATORY | | | | + + + + + documented in this encounter Visit Diagnoses Not on filedocumented in this encounter
--- OUTSIDE RECORDS SUMMARY | ~2020-03-31 | XMS | Encounter Summary ---
Demographics + + + | Address | [address] | | | [place] [address] | + + + | Home Phone | | + + + | Preferred Language | Unknown | + + + | Marital Status | Legally | + + + | Yarsanism Affiliation | Unknown | + + + | Race | White | + + + | Ethnic Group | Not or | + + + Author + + + | Author | [facility] | | | and [place] | + + + | Organization | [facility] | | [...] Team Providers + +------+ + | Care De Icer Element Winder Name | Role | Phone | + +------+ + | Roberth Gaspar MD | PCP | | + +------+ + Encounter Details +--------+ + + + + | Date | Type | Department | Care Team | Description | +--------+ + + + + | 01/22/ | Orders Only | [facility] | Provider, | | | 2018 | | SYSTEM GENERIC OP | [address] | | | | | CONVERSION [address] | [place] | | | | | [address] [place], [place] | [place] [address] | | | | | [address] | | | | | | [phone] | | | +--------+ + + + [...]
--- OUTSIDE RECORDS SUMMARY | ~2020-03-31 | XMS | Encounter Summary ---
Demographics + + + | Address | [address] | | | [place] [address] | + + + | Home Phone | | + + + | Preferred Language | Unknown | + + + | Marital Status | Legally | + + + | Taoism Affiliation | Unknown | + + + [...] Providers + +------+ + | Care Boiler Plant Worker Name | Role | Phone | [...] + + | 05/18/ | Telephone | [facility] | Oc Mooney, | Medication Refill | | 2017 | | [address]SIATRY [address] | MD [address] | | | | | [address] | [place] | | | | | [place] | [address] | | | | | [address] | | | | | | [phone] | | | +--------+ + + + [...] this medication. elephone Encounter - Donna Jara, [place] - 05/18/2017 10:26 AM PSTCalled to speak [...]
--- OUTSIDE RECORDS SUMMARY | ~2020-03-31 | XMS | Encounter Summary ---
Demographics + + + | Address | [address] | | | [place] [address] | + + + | Home Phone [...] Team Providers + +------+ + | Care Shampoo Person Name | Role | Phone | + +------+ + | Remi Talley MD | PCP | | + +------+ + Reason for Visit +--------+ + | Reason | Comments | +--------+ + | Other | 03/05/20 Reinier NEUMANN | +--------+ + Encounter Details +--------+ + + + + | Date | Type | Department | Care Team | Description | +--------+ + + + + | 03/13/ | Documentati | [facility] | Leif Kenyon DO | Other (03/05/20 Good | | 2020 | on | INFECTIOUS DISEASE | [address] | Yao NEUMANN) | | | | [address] | [place] [address] | | | | | [place], [place] | [phone] | | | | | [address] | | | | | | [phone] | | | +--------+ + + + [...] documented as of this encounter Progress Notes Carol Damon, Assistant Foreman - 03/13/2020 4:17 PM PDT03/05/20 Good Saamyoa BMP Not ordered by [facility]. Sent to scan. documented in this encounter Plan of Treatment Not on filedocumented as of this encounter Visit Diagnoses Not on filedocumented in this encounter"
--- OUTSIDE RECORDS SUMMARY | ~2020-03-31 | XMS | Encounter Summary ---
Demographics + + + | Address | [address] | | | [place] [address] | + + + | Home Phone [...] Team Providers + +------+ + | Care Service Unit Operator Oil Well Name | Role | Phone | + +------+ + | Roberth Gaspar MD | PCP | | + +------+ + Encounter Details +--------+ + + + + | Date | Type | Department | Care Team | Description | +--------+ + + + + | 09/12/ | Documentati | [facility] | Jarrett, | | | 2019 | on | NEPHROLOGY [place] | [facility] | | | | | [address] | Tag Press Operator | | | | | [address] | | | | | | [place], [place] | | | | | | [address] | | | | | | [phone] | | | +--------+ + + + [...]
--- OUTSIDE RECORDS SUMMARY | ~2020-03-31 | XMS | Encounter Summary ---
Demographics + + + | Address | [address] | | | [place] [address] | + + + | Home Phone [...] Team Providers + +------+ + | Care Yield Improvement Engineer Name | Role | Phone | [...] + + | 11/11/ | Telephone | [facility] | Oc Mooney, | Lab Results | | 2017 | | PH[address]SIATRY [address] | MD [address] | | | | | [address] | [place] | | | | | [place] | [address] | | | | | [address] | | | | | | [phone] | | | +--------+ + + + [...] Miscellaneous Notes Telephone Encounter - Donna Jara, Barrel Maker - 11/11/2016 2:01 PM PDTCalle d to inform Petra Dangelo about lab results. Perta Dangelo has low B12 and is anemic. [...]
--- OUTSIDE RECORDS SUMMARY | ~2020-03-31 | XMS | Encounter Summary ---
Demographics + + + | Address | [address] | | | [place] [address] | + + + | Home Phone [...] Team Providers + +------+ + | Care Block And Case Maker Name | Role | Phone | [...] | hand | [address] | | | | n | numbness | [address] | [place], | | | | | Hand | [place], | [place] [address] | | | | | weakness | [place] [address] | Phone: | | | | | History of | Phone: | [phone] | | | | | diabetes | [phone] | Fax: | | | | | mellitus | Fax: | [phone] | | | | | Procedures | [phone] | | | | | | DOS 06/03/16 | | | +--------+ + + + + + Encounter Details +--------+ + + + + | Date | Type | Department | Care Team | Description | +--------+ + + + + | 10/06/ | Procedure | [facility] [place] | Moise Ceballos, | Peripheral | | 2017 | visit | PHYSIATRY [address] | MD [address] | polyneuropathy | | | | [address] | [place] | (Primary Dx); | | | | [place] | [address] | Bilateral hand | | | | [address] | | numbness; Hand | | | | [phone] | | weakness; History of | | [...] might be different fro m the original. 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 She reports numbness in both feet [...] to mid-forelegs bilaterally. She has 4/5 hand event sales representative strength bilaterally. The remainder of strength is [...] may represent possible left ulnar neuropathy at [facility] versus multi-focal mono neuropathy. [...] not hesitate to call. Moise Ceballos MD (.) Physical Medicine and Rehabilitation Cc: Roberth Gaspar [...]
--- OUTSIDE RECORDS SUMMARY | ~2020-03-31 | XMS | Encounter Summary ---
Demographics + + + | Address | [address] | | | [place] [address] | + + + | Home Phone [...] Team Providers + +------+ + | Care Excavator Operator Name | Role | Phone | [...] + + | 12/25/ | Telephone | [facility] | Carey Martínez, | Other (F/U Appt ) | | 2020 | | INFECTIOUS DISEASE | Osha Inspector | | | | | [address] | | | | | | [place] | | | | | | [address] | | | | | | [phone] | | | +--------+ + + + [...] - 01/04/2020 9:39 AM PDT01/04/2020: Shalini from [facility] stated she will look into the [...] at office. Callback number was provided in message,[phone] option 5. I will wait for callback. elepho ne Encounter - Carey Martínez Osha Inspector - 12/26/2019 10:04 AM PDT12/26/2019: I attempted to get a hold of patient. I left message requesting for patient to return my ca ll at office. Callback number was provided in message,[phone] option 5. I will wait for callback. Isabelle ahumada in this encounter Plan of Treatment Not on filedocumented as of this encounter Visit Diagnoses Not on filedocumented in this encounter"
--- OUTSIDE RECORDS SUMMARY | ~2020-03-31 | XMS | Encounter Summary ---
Demographics + + + | Address | [address] | | | [place] [address] | + + + | Home Phone [...] Author + + + | Author | [facility] | | | and [place] | + + + | Organization | [facility] | | | [...] Team Providers + +------+ + | Care Sole Molder Name | Role | Phone | + [...] + + | 12/07/ | Telephone | [facility] | Leif Kenyon DO | Coordination Of Care | | 2020 | | INFECTIOUS DISEASE | [address] | | | | | [address] | [place] [address] | | | | | [place], [place] | [phone] | | | | | [address] | | | | | | [phone] | | | +--------+ + + + [...] Miscellaneous Notes Telephone Encounter - Kelsey Martínez Soft Hat Binder - 12/08/2019 10:40 AM PDTPatient inf ormed. [...]
--- OUTSIDE RECORDS SUMMARY | ~2020-03-31 | XMS | Encounter Summary ---
Demographics + + + | Address | [address] | | | [place] [address] | + + + | Home Phone | | + + + | Preferred Language | Unknown | + + + | Marital Status | Legally | + + + | Rastafarian Affiliation | Unknown | + + + [...] Team Providers + +------+ + | Care Referral Coordinator Name | Role | Phone | [...] | | | | EMERGENCY CENTER | [place] [address] | | | 01/07/ | | [address] | [phone] | | | 2012 | | [place], [place] | | | | | | [address] | | | | | | [phone] | | | +--------+ + + + [...]
--- OUTSIDE RECORDS SUMMARY | ~2020-03-31 | XMS | Encounter Summary ---
Demographics + + + | Address | [address] | | | [place] [address] | + + + | Home Phone [...] + + + | Author | [facility] | | | and [place] | + + + | Organization | [facility] | | [...] Team Providers + +------+ + | Care Vegetable Loader Name | Role | Phone | + [...] PHYSIATRY [address] | MD [address] | | | | | [address] | [place] | | | | | [place] | [address] | | | | | [address] | | | | | | [phone] | | | +--------+--------+ + + + [...] this refill. elephone Encounter - Donna Jara, Semaphore Operator - 03/03/2017 5:05 PM PDTCalled to speak to Petra Dangelo regarding medication refill request for medication gabapentin. Is Petra Dangelo currently taking 1 capsule by mouth three times daily? Left a voicemail message to call our office back. Electronically si gned by Donna Jara Semaphore Operator at 03/03/2017 5:07 PM PDTdocumented in this e ncounter Plan of Treatment Not on filedocumented as of this encounter Visit Diagnoses Not on filedocumented in this encounter"
--- OUTSIDE RECORDS SUMMARY | ~2020-03-31 | XMS | Encounter Summary ---
Demographics + + + | Address | [address] | | | [place] [address] | + + + | Home Phone [...] + + + | Author | [facility] | | | and [place] | + + + | Organization | [facility] | | | [...] Team Providers + +------+ + | Care Services Mgr Name | Role | Phone | + [...] + + | 01/05/ | Office | [facility] | Oc Mooney, | Peripheral | | 2017 | Visit | PHYSIATRY [address] | [address] | polyneuropathy | | | | [address] | [place] | (Primary Dx); | | | | [place] | [address] | Neuropathic pain; | | | | [address] | | Vitamin B12 | | | | [phone] | | deficiency; Angular | | | [...] encounter Patient Instructions Patient Instructions Donna Jara, Deputy Controller - 01/05/2017 4:00 PM PDTBegin the consumption [...] has no apparent deficits with short or assisted memory. The cranial nerves appear grossly intact. Subjective sensory change in both hands, unchanged compared to 10/06/2016. 4/5 hand tobacco dipper bilaterally. Remainder of strength normal in major [...]
--- OUTSIDE RECORDS SUMMARY | ~2020-03-31 | XMS | Encounter Summary ---
Demographics + + + | Address | [address] | | | [place] [address] | + + + | Home Phone [...] Author + + + | Author | [facility] | | | and [place] | + + + | Organization | [facility] | | | [...] Team Providers + +------+ + | Care Scholastic Aptitude Test Grader Name | Role | Phone | + +------+ + | Roberth Gaspar MD | PCP | | + +------+ + Encounter Details +--------+ + + + + | Date | Type | Department | Care Team | Description | +--------+ + + + + | 10/27/ | Orders Only | [facility] | Cesar Hart MD | | | 2017 | | NEPHROLOGY [place] | [address] | | | | | [address] | [address] [place], [place] | | | | | [address] [place], [place] | [address] | | | | | [address] | | | | | | [phone] | | | +--------+ + + + [...]
--- OUTSIDE RECORDS SUMMARY | ~2020-03-31 | XMS | Encounter Summary ---
Demographics + + + | Address | [address] | | | [place] [address] | + + + | Home Phone [...] Team Providers + +------+ + | Care Erp Business Analyst Name | Role | Phone | + +------+ + | Roberth Gaspar MD | PCP | | + +------+ + Encounter Details +--------+ + + + + | Date | Type | Department | Care Team | Description | +--------+ + + + + | 09/12/ | Orders Only | [facility] | JamCesar braden MD | Essential | | 2020 | | NEPHROLOGY [place] | [address] | hypertension, benign | | | | [address] | [address] [facility], [place] | (Primary Dx); CKD | | | | [address] | [address] | (chronic kidney | | | | [place], [place] | | disease), stage III | | | | [address] | | (HCC) | | | | [phone] | | | +--------+ + + + [...] disease, Stage III (moderate) | + + documented in this encounter"
[~2020-03-31 21:22] MED LIST changes: +BAYER CHEWABLE81 MG PO; +BUDESONIDE0.5 MG/2 M INH; +DAILY MULTIPLE1 EACH PO; +DULCOLAX10 MG PR; +FLEET ENEMA133 ML PR; +GABAPENTIN600 MG PO; +HEPARIN 5010 UNIT/1 IV; +IPRAT-ALBUT 0.5-3 ML INH; +MILK OF MA400 MG/5 M PO; +MORPHINE SULFAT15 M1 PO; +NYSTATIN1 EAC2 TOP; +VANCOMYCIN1.75 GM/50 IV
--- OUTSIDE RECORDS SUMMARY | 2020-03-31 21:26 | XMS ---
PreManage Notification: [place] MISHRA Security Steward/Stewardess Room Events No recent Security Events currently on file CRITERIA MET - Group Notification - 6 ED Visits in 6 Months - [facility] - Has Care Guidelines - History of Sepsis Dx - PDMP CARE PROVIDERS Name Unknown [facility] Facility Current PHONE: [phone] JOANN RODRIGUEZ Internal Medicine: Geriatric Medicine 12/20/2019-Current PHONE: [phone] [facility] Medicine 08/05/2018-Current CELINA Graham PHONE: [phone] Saleem has no Care Guidelines for this patient. Care History Medical/Surgical 02/23/2019 [facility] CAUTION PRESCRIBING NARCOTICS - PATIENT IS UNDER PAIN PLAN WITH PCP DR CELINA ROJAS IF PATIENT NEEDS PAIN MED ACUTELY - GIVE 2-3 DAYS WORTH RX, THEN PATIENT IS TO CONTACT PCP FOR FURTHER MEDS.\T\nbsp; DO NOT TELL HER TO TAKE MORE OF WHAT SHE IS CURRENTLY ON.\T\nbsp; THIS WAS REQUESTED BY PCP DR ROJAS. Kelly VISIT COUNT (12 MO.) 7 [facility] TOTAL 7 NOTE: Visits indicate total known visits. ED/UCC VISIT TRACKING (12 MO.) 03/31/2020 21:23 [facility] TYPE: Emergency COMPLAINT: - LEG PAIN/NON INJ 02/13/2020 09:39 [facility] TYPE: Emergency COMPLAINT: - LEG PAIN/ NO INJURY 02/01/2020 11:32 [facility] TYPE: Emergency COMPLAINT: - BIMALCOLAR FRACTURE W/ DISCLOCATION 01/21/2020 07:58 [facility] TYPE: Emergency COMPLAINT: - ANKLE PAIN DIAGNOSES: - snf (current) use of oral hypoglycemic drugs - [...] encounter - Essential (primary) hypertension - Other tank terminal gauger (current) drug therapy - Allergy status to [...] - Personal history of nicotine dependence - snf (current) use of oral hypoglycemic drugs - Essential (primary) hypertension - Allergy status to penicillin - Shortness of breath - Other tank terminal gauger (current) drug therapy - Chronic obstructive pulmonary disease with (acute) exacerbati 11/17/2019 20:03 [facility] TYPE: Emergency COMPLAINT: - MULTIPLE COMPLAINTS 11/11/2019 11:21 [facility] TYPE: Emergency COMPLAINT: - BACK PAIN, SOB INPATIENT VISIT TRACKING (12 MO.) 02/13/2020 14:06 [facility] TYPE: Medical Surgical COMPLAINT: - SEPSIS DIAGNOSES: - snf (current) use of aspirin - Sepsis due to Methicillin resistant Staphylococcus aureus - Diarrhea, unspecified - Essential (primary) hypertension - Unspecified asthma, uncomplicated - snf (current) use of aspirin - Atherosclerotic heart disease of [place] coronary artery witho - Sepsis, unspecified organism - Sepsis due to Methicillin resistant Staphylococcus aureus - vermin exterminator (current) use of inhaled steroids - Gastro-esophageal reflux disease without esophagitis - vermin exterminator (current) use of opiate analgesic - Hypothyroidism, unspecified - Displaced pilon fracture of left tibia, subsequent encounter - Urinary tract infection, site not specified - Unspecified Escherichia coli [E. coli] as the cause of diseas - Personal history of nicotine dependence - snf (current) use of inhaled steroids - Morbid (severe) obesity due to excess calories - Allergy status to serum and vaccine status - Atherosclerotic heart disease of [place] coronary artery witho - vermin exterminator (current) use of non-steroidal anti-inflammatories - Essential (primary) hypertension - Allergy status to serum and vaccine status - Other custodial (current) drug therapy - Unspecified asthma, uncomplicated - Contact with and (suspected) exposure to other viral communic - Hypothyroidism, unspecified - Body mass index (BMI) 50-59.9 , adult - Dorsalgia, unspecified - Allergy status to penicillin - snf (current) use of insulin - Type 2 diabetes mellitus with diabetic neuropathy, unspecifie - Diarrhea, unspecified - Contact with and (suspected) exposure to other viral communic - Personal history of nicotine dependence - Urinary tract infection, site not specified - Body mass index (BMI) 50-59.9 , adult - Allergy status to penicillin - snf (current) use of opiate analgesic - Chronic pain syndrome - Other tank terminal gauger (current) drug therapy - Chronic pain syndrome - Cellulitis of left lower limb - Gastro-esophageal reflux disease without esophagitis - Allergy status to other drugs, medicaments and biological sub - Insomnia, unspecified - Displaced pilon fracture of left tibia, subsequent encounter - Unspecified Escherichia coli [E. coli] as the cause of diseas - Allergy status to other drugs, medicaments and biological sub - vermin exterminator (current) use of insulin - Dorsalgia, unspecified - snf (current) use of non-steroidal anti-inflammatories - Insomnia, unspecified - Cellulitis of left lower limb - Type 2 diabetes mellitus with diabetic neuropathy, unspecifie - Morbid (severe) obesity due to excess calories 02/01/2020 17:31 [facility] TYPE: Medical Surgical COMPLAINT: - BIMALCOLAR FRACTURE W/ DISCLOCATION DIAGNOSES: - Chronic obstructive pulmonary disease, unspecified - Morbid (severe) obesity due to excess calories - snf (current) use of aspirin - Displaced pilon fracture of left tibia, initial encounter for - Type 2 diabetes mellitus without complications - Hypothyroidism, unspecified - Chronic pain syndrome - Morbid (severe) obesity due to excess calories - Chronic pain syndrome - snf (current) use of insulin - Hypothyroidism, unspecified - Gastro-esophageal reflux disease without esophagitis - Hyperlipidemia, unspecified - Contact with and (suspected) exposure to other viral communic - Unspecified fall, initial encounter - snf (current) use of aspirin - vermin exterminator (current) use of insulin - Gastro-esophageal reflux disease without esophagitis - Chronic obstructive pulmonary disease, unspecified - Essential (primary) hypertension - Essential (primary) hypertension - Unspecified fall, initial encounter - Hyperlipidemia, unspecified - Type 2 diabetes mellitus without complications [facility] DIAGNOSES: - Essential [...] unspecified - Chronic pain syndrome - Other custodial (current) drug therapy - Severe sepsis without septic shock - Tachycardia, unspecified - Other specified sepsis - Anemia, unspecified - Body mass index (BMI) 45.0-49.9, adult - Allergy status to penicillin - Urinary tract infection, site not specified - Hypothyroidism, unspecified - Hyperlipidemia, unspecified - Hypomagnesemia - Unspecified asthma, uncomplicated - snf (current) use of systemic steroids - Sepsis due to Escherichia coli [E. coli] - Sepsis due to Methicillin resistant Staphylococcus aureus - Unspecified abdominal pain - Type 2 diabetes mellitus without complications - Contact with and (suspected) exposure to other viral communic - Pneumonia, unspecified organism - Acute kidney failure, unspecified - Allergy status to serum and vaccine status - vermin exterminator (current) use of opiate analgesic - Pneumonia due to Methicillin resistant Staphylococcus aureus - snf (current) use of oral hypoglycemic drugs - Gastro-esophageal reflux disease without esophagitis [email or web address]
[2020-03-31] MEDS ORDERED: BASAGLAR K100 UNIT/1 SUB-Q (22:18)
[2020-03-31] MEDS ORDERED: GLUCAGON EMERGEN1 MG INJ (22:20)
[2020-03-31] MEDS ORDERED: FUROSEMIDE20 MG PO (22:23)
[2020-03-31] MEDS ORDERED: MONTELUKAST SOD10 MG PO (22:29)
[2020-03-31] MEDS ORDERED: K-TAB ER20 MEQ PO (22:29)
[2020-03-31] MEDS ORDERED: GABAPENTIN600 MG PO (22:31)
[2020-03-31] MEDS ORDERED: ZOFRAN4 MG PO (22:31)
[2020-03-31] MEDS ORDERED: VANCOMYCIN750 MG/151 IV (22:33)
[2020-03-31] MEDS ORDERED: OXYCODONE HCL20 M1 PO (22:34)
[2020-03-31] MEDS ORDERED: NARCAN4 MG NAS (22:37)
[2020-03-31] MEDS ORDERED: OXYCODONE HCL10 MG PO (22:38)
== END 2020-04-01 00:20 | disposition home or self-care (01) ==
LOC: ED 21:22
DX: L03.116 Cellulitis of left lower limb (principal); S82.892D Other fracture of left lower leg, subsequent encounter for closed fracture with routine healing; X58.XXXD Exposure to other specified factors, subsequent encounter; J45.909 Unspecified asthma, uncomplicated; I10 Essential (primary) hypertension; E03.9 Hypothyroidism, unspecified; E11.40 Type 2 diabetes mellitus with diabetic neuropathy, unspecified; Z87.891 Personal history of nicotine dependence; Z88.8 Allergy status to other drugs, medicaments and biological substances; Z88.0 Allergy status to penicillin; Z91.013 Allergy to seafood; Z88.7 Allergy status to serum and vaccine; Z79.4 Long term (current) use of insulin; Z79.899 Other long term (current) drug therapy; Z79.82 Long term (current) use of aspirin; Z79.891 Long term (current) use of opiate analgesic
CPT/HCPCS: 73610; 80053; 83605; 85025; 85610; 85730; 96374; 96375; 99284-25; J1170; J2405

== ENCOUNTER 2020-09-04 10:14 | Inpatient (IN) | payer OTHER ==
[~2020-09-04] VITALS: Ht 160 cm; Wt 114.0 kg
[~2020-09-04 10:14] MED LIST changes: +FUROSEMIDE20 MG PO; +GLUCAGON EMERGEN1 MG INJ; +K-TAB ER20 MEQ PO; +MONTELUKAST SOD10 MG PO; +NARCAN4 MG NAS; +OXYCODONE HCL10 MG PO; +OXYCODONE HCL20 M1 PO; +VANCOMYCIN750 MG/151 IV; +ZOFRAN4 MG PO
--- OUTSIDE RECORDS SUMMARY | 2020-09-04 10:16 | XMS ---
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 Care History Medical/Surgical 02/23/2019 [facility] CAUTION PRESCRIBING NARCOTICS - PATIENT IS UNDER PAIN PLAN WITH PCP DR CELINA ROJAS IF PATIENT NEEDS PAIN MED ACUTELY - GIVE 2-3 DAYS WORTH RX, THEN PATIENT IS TO CONTACT PCP FOR FURTHER MEDS.\T\nbsp; DO NOT TELL HER TO TAKE MORE OF WHAT SHE IS CURRENTLY ON.\T\nbsp; THIS WAS REQUESTED BY PCP DR ROJAS. Kelly VISIT COUNT (12 MO.) 8 [facility] TOTAL 8 NOTE: Visits indicate total known visits. ED/UCC VISIT TRACKING (12 MO.) 09/04/2020 10:14 [facility] [place] TYPE: Emergency COMPLAINT: - WEAKNESS 03/31/2020 21:23 [facility] [place] TYPE: Emergency COMPLAINT: - LEG PAIN/NON INJ DIAGNOSES: - Hypothyroidism, unspecified - Allergy status to penicillin - Allergy status to serum and vaccine - Personal history of nicotine dependence - Type 2 diabetes mellitus with diabetic neuropathy, unspecified - Other fracture of left lower leg, subsequent encounter for closed fracture with routine healing - FDC (current) use of insulin - Allergy status to other drugs, medicaments and biological substances - FDC (current) use of aspirin - Unspecified asthma, uncomplicated - Exposure to other specified factors, subsequent encounter - Cellulitis of left lower limb - Allergy to seafood - Other terminal supervisor (current) drug therapy - Effusion, left ankle - Essential (primary) hypertension - FDC (current) use of opiate analgesic 02/13/2020 09:39 [facility] [place] TYPE: Emergency COMPLAINT: - LEG PAIN/ NO INJURY 02/01/2020 11:32 [facility] [place] TYPE: Emergency COMPLAINT: - BIMALCOLAR FRACTURE W/ DISCLOCATION 01/21/2020 07:58 [facility] [place] TYPE: Emergency COMPLAINT: - ANKLE PAIN DIAGNOSES: - FDC (current) use of oral hypoglycemic drugs - Allergy status to penicillin - Type 2 diabetes mellitus with diabetic neuropathy, unspecified - Displaced bimalleolar fracture of left lower leg, initial encounter for closed fracture - Allergy to seafood - Personal history of nicotine dependence - Pain in right ankle and joints of right foot - Other allergy status, other than to drugs and biological substances - Unspecified asthma, uncomplicated - Exposure to other specified factors, initial encounter - Essential (primary) hypertension - Other intermediate (current) drug therapy - Allergy status to serum and vaccine - Hypothyroidism, unspecified 12/16/2019 18:47 [facility] [place] TYPE: Emergency COMPLAINT: - SOB DIAGNOSES: - Hypothyroidism, unspecified - Other allergy status, other than to drugs and biological substances - Allergy to seafood - Type 2 diabetes mellitus without complications - Allergy status to serum and vaccine - Personal history of nicotine dependence - intermodal truck driver (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 [place] TYPE: Orthopedic DIAGNOSES: - Other chronic osteomyelitis, left ankle and foot - Displaced trimalleolar fracture of left lower leg, subsequent encounter for closed fracture with delayed healing 02/13/2020 14:06 [facility] [place] TYPE: Medical Surgical COMPLAINT: - SEPSIS DIAGNOSES: - intermodal truck driver (current) use of aspirin - Sepsis due to Methicillin resistant Staphylococcus aureus - Diarrhea, unspecified - Essential (primary) hypertension - Unspecified asthma, uncomplicated - intermodal truck driver (current) use of aspirin - Atherosclerotic heart disease of [place] coronary artery without angina pectoris - Sepsis, unspecified organism - Sepsis due to Methicillin resistant Staphylococcus aureus - intermodal truck driver (current) use of inhaled steroids - Gastro-esophageal reflux disease without esophagitis - FDC (current) use of opiate analgesic - Hypothyroidism, unspecified - Displaced pilon fracture of left tibia, subsequent encounter for closed fracture with routine healing - Urinary tract infection, site not specified - Unspecified Escherichia coli [E. coli] as the cause of diseases classified elsewhere - Personal history of nicotine dependence - FDC (current) use of inhaled steroids - Morbid (severe) obesity due to excess calories - Allergy status to serum and vaccine - Atherosclerotic heart disease of [place] coronary artery without angina pectoris - FDC (current) use of non-steroidal anti-inflammatories (NSAID) - Essential (primary) hypertension - Allergy status to serum and vaccine - Other terminal supervisor (current) drug therapy - Unspecified asthma, uncomplicated - Contact with and (suspected) exposure to other viral communicable diseases - Hypothyroidism, unspecified - Body mass index [BMI] 50.0-59.9, adult - Dorsalgia, unspecified - Allergy status to penicillin - FDC (current) use of insulin - Type 2 diabetes mellitus with diabetic neuropathy, unspecified - Diarrhea, unspecified - Contact with and (suspected) exposure to other viral communicable diseases - Personal history of nicotine dependence - Urinary tract infection, site not specified - Body mass index [BMI] 50.0-59.9, adult - Allergy status to penicillin - FDC (current) use of opiate analgesic - Chronic pain syndrome - Other intermediate (current) drug therapy - Chronic pain syndrome - Cellulitis of left lower limb - Gastro-esophageal reflux disease without esophagitis - Allergy status to other drugs, medicaments and biological substances - Insomnia, unspecified - Displaced pilon fracture of left tibia, subsequent encounter for closed fracture with routine healing - Unspecified Escherichia coli [E. coli] as the cause of diseases classified elsewhere - Allergy status to other drugs, medicaments and biological substances - FDC (current) use of insulin - Dorsalgia, unspecified - FDC (current) use of non-steroidal anti-inflammatories (NSAID) - Insomnia, unspecified - Cellulitis of left lower limb - Type 2 diabetes mellitus with diabetic neuropathy, unspecified - Morbid (severe) obesity due to excess calories 02/01/2020 17:31 [facility] [place] TYPE: Medical Surgical COMPLAINT: - BIMALCOLAR FRACTURE W/ DISCLOCATION DIAGNOSES: - Chronic obstructive pulmonary disease, unspecified - Morbid (severe) obesity due to excess calories - intermodal truck driver (current) use of aspirin - Displaced pilon fracture of left tibia, initial encounter for closed fracture - Type 2 diabetes mellitus without complications - Hypothyroidism, unspecified - Chronic pain syndrome - Morbid (severe) obesity due to excess calories - Chronic pain syndrome - intermodal truck driver (current) use of insulin - Hypothyroidism, unspecified - Gastro-esophageal reflux disease without esophagitis - Hyperlipidemia, unspecified - Contact with and (suspected) exposure to other viral communicable diseases - Unspecified fall, initial encounter - FDC (current) use of aspirin - intermodal truck driver (current) use of insulin - Gastro-esophageal reflux disease without esophagitis - Chronic obstructive pulmonary disease, unspecified - Essential (primary) hypertension - Essential (primary) hypertension - Unspecified fall, initial encounter - Hyperlipidemia, unspecified - Type 2 diabetes mellitus without complications [facility]2019 [facility] DIAGNOSES: - Essential (primary) [...] - Allergy status to serum and vaccine - Klebsiella pneumoniae [K. pneumoniae] as the cause of diseases classified elsewhere - Pneumonia due to Methicillin resistant Staphylococcus aureus - Anemia, unspecified - Essential (hemorrhagic) thrombocythemia - Gastro-esophageal reflux disease without esophagitis - Urinary tract infection, site not specified - Allergy status to penicillin - Localized edema - Body mass index [BMI] 45.0-49.9, adult - Other allergy status, other than to drugs and biological substances - Morbid (severe) obesity due to excess calories - Unspecified asthma, uncomplicated - Proteus (mirabilis) (morganii) as the cause of diseases classified elsewhere - Allergy to seafood - Chronic obstructive pulmonary disease with (acute) lower respiratory infection - Type 2 diabetes mellitus with hypoglycemia without coma - Unspecified Escherichia coli [E. coli] as the cause of diseases classified elsewhere - Psychophysiologic insomnia - Hypothyroidism, unspecified 11/11/2019 18:41 [facility] [place] TYPE: Medical Surgical COMPLAINT: - PNEUMONIA DIAGNOSES: - Obesity, unspecified - Chronic pain syndrome - Other intermediate (current) drug therapy - Severe sepsis without septic shock - Tachycardia, unspecified - Other specified sepsis - Anemia, unspecified - Body mass index [BMI] 45.0-49.9, adult - Allergy status to penicillin - Urinary tract infection, site not specified - Hypothyroidism, unspecified - Hyperlipidemia, unspecified - Hypomagnesemia - Unspecified asthma, uncomplicated - intermodal truck driver (current) use of systemic steroids - Sepsis due to Escherichia coli [E. coli] - Sepsis due to Methicillin resistant Staphylococcus aureus - Unspecified abdominal pain - Type 2 diabetes mellitus without complications - Contact with and (suspected) exposure to other viral communicable diseases - Pneumonia, unspecified organism - Acute kidney failure, unspecified - Allergy status to serum and vaccine - FDC (current) use of opiate analgesic - Pneumonia due to Methicillin resistant Staphylococcus aureus - FDC (current) use of oral hypoglycemic drugs - Gastro-esophageal reflux disease without esophagitis [email or web address]
[2020-09-05] MEDS ORDERED: OXYCODONE HCL5 MG PO (09:46)
[2020-09-05] MEDS ORDERED: INSULIN LI100 UNIT/1 SUB-Q (09:47)
[2020-09-05] MEDS ORDERED: METFORMIN HCL1000 MG PO (09:48)
[2020-09-05] MEDS ORDERED: POTASSIUM GLUCO99 MG PO (09:49)
[2020-09-05] MEDS ORDERED: ONDANSETRON ODT4 MG PO (10:04)
[2020-09-05] MEDS ORDERED: ATORVASTATIN CA20 MG PO (10:06)
[2020-09-06] MEDS ORDERED: CEPHALEXIN500 MG PO (10:00)
[2020-09-06] MEDS ORDERED: METRONIDAZOLE500 MG PO (10:01)
[2020-09-06] MEDS ORDERED: ATORVASTATIN CA20 MG PO (10:55)
[2020-09-06] MEDS ORDERED: PRENATABS RX T1 EACH PO (10:55)
[2020-09-06] MEDS ORDERED: FUROSEMIDE20 MG PO (10:55)
[2020-09-06] MEDS ORDERED: GABAPENTIN600 MG PO (10:55)
== END 2020-09-06 12:12 | disposition home or self-care (01) | DRG 392 ==
LOC: ED 10:14 → MS 14:49
PROVIDERS: ADMIT Internal Medicine; ATTEND Internal Medicine
DX: K57.32 Diverticulitis of large intestine without perforation or abscess without bleeding (principal); Z20.822 Contact with and (suspected) exposure to COVID-19; E83.42 Hypomagnesemia; J45.40 Moderate persistent asthma, uncomplicated; E11.40 Type 2 diabetes mellitus with diabetic neuropathy, unspecified; I10 Essential (primary) hypertension; E03.9 Hypothyroidism, unspecified; K21.9 Gastro-esophageal reflux disease without esophagitis; G89.4 Chronic pain syndrome; M54.9 Dorsalgia, unspecified; E78.5 Hyperlipidemia, unspecified; Z89.512 Acquired absence of left leg below knee; Z87.891 Personal history of nicotine dependence; Z88.0 Allergy status to penicillin; Z88.8 Allergy status to other drugs, medicaments and biological substances; Z88.7 Allergy status to serum and vaccine; Z79.899 Other long term (current) drug therapy; Z79.82 Long term (current) use of aspirin; Z79.4 Long term (current) use of insulin; Z79.891 Long term (current) use of opiate analgesic; Z79.51 Long term (current) use of inhaled steroids
CPT/HCPCS: 36415; 74177; 80053; 81001; 83036; 83605; 83690; 83735; 85025; 87077; 87088; 87186; C9803; J0696; J0744; J0780; J1170; J1650; J1815; J1885; J2405; J2550; J3475; J7030; J7121; Q9967; U0003

== ENCOUNTER 2021-05-20 16:46 | Emergency (ER) | payer OTHER ==
[~2021-05-20] VITALS: Ht 160 cm; Wt 113.8 kg
[~2021-05-20 16:46] MED LIST changes: +ATORVASTATIN CA20 MG PO; +CEPHALEXIN500 MG PO; +INSULIN LI100 UNIT/1 SUB-Q; +METRONIDAZOLE500 MG PO; +ONDANSETRON ODT4 MG PO; +POTASSIUM GLUCO99 MG PO; +PRENATABS RX T1 EACH PO
--- OUTSIDE RECORDS SUMMARY | 2021-05-20 16:54 | XMS ---
PreManage Notification: [place] MISHRA Security Escalator Constructor Events No recent Security Events currently on file CRITERIA MET - Group Notification CARE PROVIDERS Fareed Kelsey Diamond Sizer/Guide Winder 09/05/2020-Current PHONE: [phone] CORI BROWN Full Stack Java Developerzakia Griffin PHONE: [phone] SHALOM GIRARD Internal Medicine Current PHONE: [phone] FABIOLA MAX Nurse Practitioner Current PHONE: [phone] JOANN RODRIGUEZ Internal Medicine 12/20/2019-Current PHONE: [phone] NABILA MONZON Nurse Practitioner: Family Current PHONE: Unknown [facility]Current CELINA Graham PHONE: [phone] Harinder Levine Diamond Sizer/Guide Winder 03/28/2021-Current PHONE: [phone] TERRI Nurse Flor BRICENO PHONE: [phone] Kristina Bui Physician Assistant Scott Ellis PA-C PHONE: [phone] [facility] Current PHONE: [phone] Saleem has no Care Guidelines for this patient. Care History Medical/Surgical 02/23/2019 [facility] CAUTION PRESCRIBING NARCOTICS - PATIENT IS UNDER PAIN PLAN WITH PCP DR CELINA ROJAS IF PATIENT NEEDS PAIN MED ACUTELY - GIVE 2-3 DAYS WORTH RX, THEN PATIENT IS TO CONTACT PCP FOR FURTHER MEDS.\T\nbsp; DO NOT TELL HER TO TAKE MORE OF WHAT SHE IS CURRENTLY ON.\T\nbsp; THIS WAS REQUESTED BY PCP DR ROJAS. Kelly VISIT COUNT (12 MO.) 2 [facility] TOTAL 2 NOTE: Visits indicate total known visits. ED/UCC VISIT TRACKING (12 MO.) 05/20/2021 16:46 [facility] [place] TYPE: Emergency COMPLAINT: - RT SHOULDER INJURY 09/04/2020 10:14 [facility] [place] TYPE: Emergency COMPLAINT: - WEAKNESS INPATIENT VISIT TRACKING (12 MO.) 09/04/2020 14:49 [facility] [place] TYPE: Medical Surgical COMPLAINT: - DIVERTICULITIS DIAGNOSES: - intermission coordinator (current) use of aspirin - Allergy status to other drugs, medicaments and biological substances - Hypomagnesemia - intermediate (current) use of insulin - Hypothyroidism, unspecified - Dorsalgia, unspecified - Hyperlipidemia, unspecified - Personal history of nicotine dependence - Chronic pain syndrome - Allergy status to serum and vaccine - Acquired absence of left leg below knee - Type 2 diabetes mellitus with diabetic neuropathy, unspecified - Diverticulitis of large intestine without perforation or abscess without bleeding - intermission coordinator (current) use of opiate analgesic - Allergy status to penicillin - Moderate persistent asthma, uncomplicated - Essential (primary) hypertension - Gastro-esophageal reflux disease without esophagitis - Other long-term (current) drug therapy - intermediate (current) use of inhaled steroids 06/24/2020 12:51 [facility] [place] TYPE: Orthopedic DIAGNOSES: - Other chronic osteomyelitis, left ankle and foot - Displaced trimalleolar fracture of left lower leg, subsequent encounter for closed fracture with delayed healing [id number]
[2021-05-20] MEDS ORDERED: GLIMEPIRIDE2 MG PO (17:07)
[2021-05-20] MEDS ORDERED: LISINOPRIL20 MG PO (17:08)
[2021-05-20] MEDS ORDERED: OXYCODONE HCL5 MG PO (17:42)
== END 2021-05-20 18:09 | disposition home or self-care (01) ==
LOC: ED 16:46
DX: S42.251A Displaced fracture of greater tuberosity of right humerus, initial encounter for closed fracture (principal); W18.30XA Fall on same level, unspecified, initial encounter; E11.9 Type 2 diabetes mellitus without complications; J45.909 Unspecified asthma, uncomplicated; I10 Essential (primary) hypertension; E03.9 Hypothyroidism, unspecified; E11.40 Type 2 diabetes mellitus with diabetic neuropathy, unspecified; Z87.891 Personal history of nicotine dependence; Z88.0 Allergy status to penicillin; Z88.7 Allergy status to serum and vaccine; Z91.013 Allergy to seafood; Z79.899 Other long term (current) drug therapy; Z79.82 Long term (current) use of aspirin; Z79.84 Long term (current) use of oral hypoglycemic drugs
CPT/HCPCS: 73030; 99283-25

== ENCOUNTER 2021-07-04 10:22 | Inpatient (IN) | payer OTHER ==
[~2021-07-04] VITALS: Ht 160 cm; Wt 116.0 kg
[~2021-07-04 10:22] MED LIST changes: +GLIMEPIRIDE2 MG PO; +LISINOPRIL20 MG PO
[2021-07-04] MEDS ORDERED: VOLTAREN ARTHRI20 GM TOP (12:00)
[2021-07-04] MEDS ORDERED: GLIMEPIRIDE4 MG PO (12:35)
[2021-07-04] MEDS ORDERED: LEVOFLOXACIN750 MG PO (12:35)
[2021-07-04] MEDS ORDERED: LISINOPRIL10 MG PO (12:36)
[2021-07-04] MEDS ORDERED: ONDANSETRON ODT4 MG PO (12:37)
[2021-07-04] MEDS ORDERED: PROBICHEW 21 B1 EACH PO (12:38)
[2021-07-04] MEDS ORDERED: LIPITOR10 MG PO (12:39)
[2021-07-04] MEDS ORDERED: VITAMIN C500 M1 PO (12:39)
[2021-07-04] MEDS ORDERED: FERROUS FUMARA324 MG PO (12:40)
[2021-07-04] MEDS ORDERED: TRAZODONE HCL50 MG PO (12:41)
[2021-07-04] MEDS ORDERED: METOPROLOL TART25 MG PO (12:41)
[2021-07-04] MEDS ORDERED: CAPSAICIN60 GM TOP (13:22)
[2021-07-04] MEDS ORDERED: METFORMIN HCL500 MG PO (13:25)
[2021-07-04] MEDS ORDERED: GABAPENTIN300 MG PO (13:27)
[2021-07-04] MEDS ORDERED: ATORVASTATIN CA20 MG PO (13:28)
[2021-07-04] MEDS ORDERED: FLUTICASONE-SA1 EAC5 PO (13:30)
[2021-07-04] MEDS ORDERED: BASAGLAR K100 UNIT/1 SUB-Q (13:36)
--- NOTE | 2021-07-05 08:03 | OR ---
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 PROCEDURE PERFORMED: Guillotine amputation, left. HEEL COMPRESSOR: None. ANESTHESIA: Spinal. BLOOD LOSS: None. TOURNIQUET TIME: 30 minutes. INTERPRETATION: Stump was sent to Pathology. BRIEF HISTORY: Phoenix is a 56-year-old female, who underwent an amputation after an infected fracture. This was done at the outside facility. She presented to our Clinic after fall after Thanksgiving. She had developed worsening skin necrosis over the end of the stump with worsening redness. She was not quite septic, but was close. She did have a white count of 15,000. She had some fevers and chills last night. Risks and benefits of revision of this stump were discussed with her. It was also noted that she had a draining sinus about 5 cm proximal to the distal end of the stump. This was in the anterior portion. DESCRIPTION OF PROCEDURE: Once consent was obtained, she was taken to the operating room. After adequate anesthesia, she was placed on operating table. Downside pressure points well padded. Electronically Signed By: CATALINA NEVES MD 07/05/21 0803 PATIENT NAME: PHOENIX MISHRA OPERATIVE REPORT DATE OF : 69 REPORT #: [id number] PHYSICIAN: CATALINA NEVES MD PCP: JOANN RODRIGUEZ MD REPORT IS CONFIDENTIAL AND NOT TO BE RELEASED WITHOUT AUTHORIZATION [facility] [address] [place], [place] [address] Signed After adequate anesthesia, a well-padded proximal thigh tourniquet was placed in the leg. The leg was then prepped and draped in the standard sterile fashion and exsanguinated by gravity. Tourniquet was inflated to 250 mmHg. The guillotine amputation was performed just above the draining sinus in the anterior portion of the leg, this was marked out and incised circumferentially through the skin. Sharp dissection was then taken through the compartments and the tibia and fibula were both cut about 2 cm proximal to the incision. The vessels were isolated and clamped as was the popliteal nerve. Once this was accomplished, the remaining soft tissue was dissected and the stump was quickly passed off the table. The wound was then copiously irrigated with normal saline under pulse lavage. The vessels were all tied with silk ties as was the nerve. Once this was accomplished, we felt that we had a good clean wound bed. Prior to the irrigation, we did take deep tissue cultures. The wound was then dressed with sterile Kerlix that was soaked, followed by overlying Kerlix and ABDs. It was then wrapped with two Kerlix rolls and a 6-inch Coban. She was awakened and taken to the recovery room in satisfactory condition. All sponge, needle, and instrument counts were correct. Catalina Neves MD BA/MODL /[id number] Copies: ~ Electronically Signed By: CATALINA NEVES MD 07/05/21 0803 PATIENT NAME: PHOENIX MISHRA OPERATIVE REPORT DATE OF : 69 REPORT #: [id number] PHYSICIAN: CATALINA NEVES MD PCP: JOANN RODRIGUEZ MD REPORT IS CONFIDENTIAL AND NOT TO BE RELEASED WITHOUT AUTHORIZATION
--- NOTE | 2021-07-06 16:29 | EKG ---
[facility] [address] [facility] [place], [place] [address] Signed Normal sinus rhythm Normal ECG When compared with ECG of 13-FEB-2020 10:06, No significant change was found Confirmed by ANDREW SANABRIA DO ([id number]) on 07/06/2021 4:29:17 PM Electronically Signed By: ANDREW SANABRIA DO 07/06/21 1629 PATIENT NAME: PHOENIX MISHRA Electrocardiogram DATE OF : 69 PHYSICIAN: ANDREW SANABRIA DO REPORT #: [id number] REPORT IS CONFIDENTIAL AND NOT TO BE RELEASED WITHOUT AUTHORIZATION
[2021-07-06] MEDS ORDERED: OXYCODONE HCL5 MG PO (17:17)
--- NOTE | 2021-07-08 15:00 | PATH ---
[facility] [address] [place], [place] [address] Signed SPECIMEN(S): A LEFT LOWER LEG PORTION SPECIMEN SOURCE: A. LEFT LOWER LEG PORTION CLINICAL HISTORY: Open wound; left BKA. ID left leg s/p BKA. FINAL PATHOLOGIC DIAGNOSIS: Left lower leg portion, below the knee amputation: - Distal skin ulceration with underlying soft tissue acute inflammation and reactive fibrosis. - Bone underlying ulcer with changes consistent with chronic osteomyelitis. - Viable skin and soft tissue surgical resection margins. - Viable tibia and fibula bone margins, negative for acute osteomyelitis. NAL:cml:C2NR MICROSCOPIC EXAMINATION: Histologic sections of all submitted blocks are examined by light microscopy. These findings, together with the gross examination, support the pathologic diagnosis. GROSS DESCRIPTION: The specimen, labeled "SP, A," and designated on the requisition "left lower leg portion," is received in formalin and consists of a nqytq-jtz-jncu leg stump (16.0 x 13.3 x 6.7 cm) with smooth fibular and tibial bone margin, inked plunkett skin with well-healed linear scar at the distal aspect 7.5 cm in length, and circular ulcerated lesion (4.4 x 4.4 cm) on the distal aspect is located 7.8 cm from the skin and soft tissue margin. There is a cystic area beneath the ulcerated lesion measuring 4.3 cm in greatest dimension and containing straw-colored fluid and fragments of yellow-plunkett soft tissue. No other lesions are grossly identified. Satellite Dish Technician sections are submitted as follows: Cassette Summary: (A1) Area of ulceration with wall of cystic area and soft tissue within cystic area (A2) Skin and soft tissue margin closest to ulceration, shaved, en face (A3) Bone underlying ulceration and cystic areas (decalcified in Decal Stat) (A4) Tibial and fibular margins, shaved (margin face up, decalcified in PATIENT NAME: PHOENIX MISHRA PATHOLOGY DATE OF : 69 REPORT #: [id number] PHYSICIAN: RAF PATHOLOGY PCP: JOANN RODRIGUEZ MD REPORT IS CONFIDENTIAL AND NOT TO BE RELEASED WITHOUT AUTHORIZATION [facility] [address] [place], [place] [address] Signed Decal Stat) AC (under the direct supervision of a pathologist) The Gross Description was prepared using a voice recognition system. The report was reviewed for accuracy; however, sound-alike word errors, addition and/or deletions may occur. If there is any question about this report, please contact Client Services. PERFORMING LABORATORY: The technical component was performed by [employer] [address] (Second Miller: Ester Ordonez MD; CLIA# [id number]). Professional [facility], [address] [address] (CLIA# [id number]). Diagnostician: Vandana Stone MD Pathologist Electronically Signed 07/08/2021 Copies: ~ PATIENT NAME: PHOENIX MISHRA PATHOLOGY DATE OF : 69 REPORT #: [id number] PHYSICIAN: RAF GARCIA PCP: JOANN RODRIGUEZ MD REPORT IS CONFIDENTIAL AND NOT TO BE RELEASED WITHOUT AUTHORIZATION
--- NOTE | 2021-07-11 06:58 | OR ---
[facility] [address] [place], [place] [address] Signed DATE OF OPERATION: 07/07/2021 SURGEON: Catalina Neves MD PREOPERATIVE DIAGNOSIS: Infected BKA stump left, status post guillotine. POSTOPERATIVE DIAGNOSIS: Infected BKA stump left, status post guillotine. PROCEDURE PERFORMED: Irrigation and debridement of skin and subcutaneous tissue, and bone, delayed primary closure, left BKA. CAR REPAIRER APPRENTICE: None. ANESTHESIA: Spinal. BLOOD LOSS: Less than 100 mL. BRIEF HISTORY: Phoenix is a 56-year-old female who had undergone prior BKA for infected nonunion. She had done well for several years. However, she fell Thanksgiving. When she was in our clinic, she mentioned that her stump was not looking very good last week and indeed she had extensive necrosis that got infected. She underwent a guillotine amputation on Wednesday evening and was kept in the hospital on IV antibiotics. She was afebrile. Her white count returned to normal and she was felt to be stable for delayed primary closure. Risks, benefits, and alternatives were discussed with her and she elected to proceed. DESCRIPTION OF PROCEDURE: Once consent was obtained, she was taken to the operating room. After adequate anesthesia, she was placed on operating room table. All downside pressure points were well padded. No tourniquet was placed. The prior dressing was removed and the leg was prepped and draped in a standard sterile fashion. The soft tissue was then debrided sharply to remove all necrotic tissue and the skin margin anteriorly. We then removed about 1 inch of bone and chamfer the anterior cortex. The wound was again copiously Electronically Signed By: CATALINA NEVES MD 07/11/21 0658 PATIENT NAME: PHOENIX MISHRA OPERATIVE REPORT DATE OF : 69 REPORT #: [id number] PHYSICIAN: CATALINA NEVES MD PCP: JOANN RODRIGUEZ MD REPORT IS CONFIDENTIAL AND NOT TO BE RELEASED WITHOUT AUTHORIZATION [facility] [address] [place], [place] [address] Signed irrigated with pulse lavage. The posterior flap was then folded forward and sutured using #1 Vicryl. Subcutaneous tissue was closed with 2-0 Monocryl and the skin in interrupted fashion using 2-0 nylon. Wound was dressed with an Aquacel dressing, ABDs and Kerlix with coverage over with Coban. She tolerated the procedure well. All sponge, needle, and instrument counts were correct. Catalina Neves MD BA/MODL /[id number] Copies: ~ Electronically Signed By: CATALINA NEVES MD 07/11/21 0658 PATIENT NAME: PHOENIX MISHRA OPERATIVE REPORT DATE OF : 69 REPORT #: [id number] PHYSICIAN: CATALINA NEVES MD PCP: JOANN RODRIGUEZ MD REPORT IS CONFIDENTIAL AND NOT TO BE RELEASED WITHOUT AUTHORIZATION
[2021-07-16] MEDS ORDERED: OXYCODONE HCL5 MG PO (08:43)
--- NOTE | 2021-07-17 07:45 | DS ---
[facility] [address] [place], [place] [address] Signed ADMISSION DATE: 07/04/2021 DISCHARGE DATE: 07/16/2021 ADMISSION DIAGNOSIS: Abscess and skin ulceration, left stump. DISCHARGE DIAGNOSIS: Abscess and skin ulceration, left stump. PROCEDURE PERFORMED DURING THIS HOSPITALIZATION: 1. Guillotine amputation, left lower extremity. 2. Revision BKA left lower extremity. BRIEF HISTORY: Phoenix is a 56-year-old female with breakdown of over the end of the tibia. There was a large ulceration with marked redness, induration, and drainage. She had elevated white count and was seen in my office. We admitted her directly to the operating room for the guillotine amputation. Risks, benefits, and alternatives were discussed with her and she understood. She was taken to the operating room, underwent the above-named procedure. She tolerated this well. The guillotine was left open for two days and then she was returned to the operating room for revision closure. Her stump was then dry at that point. Cultures were negative. The BKA was closed and dressed. She remained afebrile throughout her hospitalization. She was in the hospital for an extended time secondary to attempts to get her located in a usp facility. However, due to the current pandemic, there was no senior living bed available. She was eventually felt to be stable for discharge to home with home physical therapy and home nursing visits. She will be discharged on her current medications of oxycodone and Levaquin. She will follow up with me in 5 to 10 days. Catalina Neves MD BA/LOVE /[id number] Electronically Signed By: CATALINA NEVES MD 07/17/21 0745 PATIENT NAME: PHOENIX MISHRA DISCHARGE SUMMARY DATE OF : 69 REPORT #: [id number] PHYSICIAN: CATALINA NEVES MD PCP: JOANN RODRIGUEZ MD REPORT IS CONFIDENTIAL AND NOT TO BE RELEASED WITHOUT AUTHORIZATION [address] [address] Signed Copies: ~ Electronically Signed By: CATALINA NEVES MD 07/17/21 0745 PATIENT NAME: PHOENIX MISHAR DISCHARGE SUMMARY DATE OF : 69 REPORT #: [id number] PHYSICIAN: CATALINA NEVES MD PCP: JOANN RODRIGUEZ MD REPORT IS CONFIDENTIAL AND NOT TO BE RELEASED WITHOUT AUTHORIZATION
== END 2021-07-16 12:30 | disposition home or self-care (01) | DRG 475 ==
LOC: MS 11:11
PROVIDERS: ADMIT Specialist; ATTEND Specialist
PROC: 0Y6J0Z1 Detachment at Left Lower Leg, High, Open Approach (ICD-10-PCS; principal; 2021-07-04 12:00)
PROC: 0JQP0ZZ Repair Left Lower Leg Subcutaneous Tissue and Fascia, Open Approach (ICD-10-PCS; 2021-07-07)
PROC: 0QBH0ZZ Excision of Left Tibia, Open Approach (ICD-10-PCS; 2021-07-07 13:30)
DX: T87.44 Infection of amputation stump, left lower extremity (principal); L02.416 Cutaneous abscess of left lower limb; N17.9 Acute kidney failure, unspecified; L97.829 Non-pressure chronic ulcer of other part of left lower leg with unspecified severity; Z20.822 Contact with and (suspected) exposure to COVID-19; I10 Essential (primary) hypertension; K21.9 Gastro-esophageal reflux disease without esophagitis; E11.9 Type 2 diabetes mellitus without complications; S42.251D Displaced fracture of greater tuberosity of right humerus, subsequent encounter for fracture with routine healing; R11.2 Nausea with vomiting, unspecified; E78.5 Hyperlipidemia, unspecified; J45.909 Unspecified asthma, uncomplicated; E03.9 Hypothyroidism, unspecified; F39 Unspecified mood [affective] disorder; M54.9 Dorsalgia, unspecified; G89.29 Other chronic pain; Z88.0 Allergy status to penicillin; Z88.7 Allergy status to serum and vaccine; Z91.013 Allergy to seafood; Z91.048 Other nonmedicinal substance allergy status; Z79.82 Long term (current) use of aspirin; Z79.899 Other long term (current) drug therapy; Z79.4 Long term (current) use of insulin; Y83.8 Other surgical procedures as the cause of abnormal reaction of the patient, or of later complication, without mention of misadventure at the time of the procedure
CPT/HCPCS: 00300; 01480; 80048; 80053; 85025; 87070; 87075; 87205; 88307; 88311; 93005; 93010; 94640; 94760; 94762; 97110; 97161; 97530; A9270; C9803; J1100; J1790; J1815; J1885; J2001; J2250; J2405; J2704; J3010; J3370; J7060; J7121; U0003

== ENCOUNTER 2021-07-31 13:03 | Emergency (ER) | payer OTHER ==
[~2021-07-31] VITALS: Ht 160 cm; Wt 114.3 kg
[~2021-07-31 13:03] MED LIST changes: +CAPSAICIN60 GM TOP; +FERROUS FUMARA324 MG PO; +FLUTICASONE-SA1 EAC5 PO; +LEVOFLOXACIN750 MG PO; +LIPITOR10 MG PO; +LISINOPRIL10 MG PO; +PROBICHEW 21 B1 EACH PO; +VITAMIN C500 M1 PO; +VOLTAREN ARTHRI20 GM TOP
--- OUTSIDE RECORDS SUMMARY | 2021-07-31 13:06 | XMS ---
PreManage Notification: PHOENIX MISHRA Security Nurse Care Manager Events No recent Security Events currently on file CRITERIA MET - Group Notification - PDMP CARE PROVIDERS CORI BROWN Jail Officer Current ROBBY Griffin PHONE: [phone] SHALOM GIRARD Internal Medicine Current PHONE: Unknown FABIOLA MAX Nurse Practitioner Current PHONE: [phone] JOANN RODRIGUEZ Internal Medicine 12/20/2019-Current PHONE: [phone] NABILA MONZON Nurse Practitioner: Family Current PHONE: Unknown [facility]Scott Graham PHONE: [phone] Harinder Levine Commercial Accountant/Heavy Equipment Supervisor 03/28/2021-Current PHONE: [phone] TERRI Nurse Practitioner Scott BRICENO PHONE: [phone] Kristina Bui Physician Technical Designer Current Rhonda OSMAN PHONE: Unknown PETTY [facility] Current PHONE: [phone] Saleem has no Care Guidelines for this patient. Care History Medical/Surgical 02/23/2019 [facility] CAUTION PRESCRIBING NARCOTICS - PATIENT IS UNDER PAIN PLAN WITH PCP DR CELINA ROJAS IF PATIENT NEEDS PAIN MED ACUTELY - GIVE 2-3 DAYS WORTH RX, THEN PATIENT IS TO CONTACT PCP FOR FURTHER MEDS.\T\nbsp; DO NOT TELL HER TO TAKE MORE OF WHAT SHE IS CURRENTLY ON.\T\nbsp; THIS WAS REQUESTED BY PCP DR ROJAS. Kelly VISIT COUNT (12 MO.) 3 [facility]. TOTAL 3 NOTE: Visits indicate total known visits. ED/UCC VISIT TRACKING (12 MO.) 07/31/2021 13:04 [facility] TYPE: Emergency COMPLAINT: - L LEG POSS INFECTION 05/20/2021 16:46 [facility] TYPE: Emergency COMPLAINT: - RT SHOULDER INJURY DIAGNOSES: - Allergy status to penicillin - Hypothyroidism, unspecified - Other longterm (current) drug therapy - retirement (current) use of oral hypoglycemic drugs - Unspecified asthma, uncomplicated - Fall on same level, unspecified, initial encounter - Allergy status to serum and vaccine - Pain in right shoulder - Essential (primary) hypertension - Allergy to seafood - Displaced fracture of greater tuberosity of right humerus, initial encounter for closed fracture - Type 2 diabetes mellitus without complications - Type 2 diabetes mellitus with diabetic neuropathy, unspecified - retirement (current) use of aspirin - Personal history of nicotine dependence 09/04/2020 10:14 [facility] TYPE: Emergency COMPLAINT: - WEAKNESS INPATIENT VISIT TRACKING (12 MO.) 07/04/2021 11:11 [facility] TYPE: Medical Surgical COMPLAINT: - I D LEFT LEG S/P BKA DIAGNOSES: - Nausea with vomiting, unspecified - Type 2 diabetes mellitus without complications - Non-pressure chronic ulcer of other part of left lower leg with unspecified severity - Acute kidney failure, unspecified - Essential (primary) hypertension - Allergy status to serum and vaccine - extermination inspector (current) use of aspirin - Hypothyroidism, unspecified - Other longterm (current) drug therapy - Hypothyroidism, unspecified - Gastro-esophageal reflux disease without esophagitis - Gastro-esophageal reflux disease without esophagitis - retirement (current) use of insulin - Other chronic pain - Cutaneous abscess of left lower limb - Essential (primary) hypertension - retirement (current) use of aspirin - Unspecified mood [affective] disorder - Acute kidney failure, unspecified - Cutaneous abscess of left lower limb - retirement (current) use of insulin - Allergy status to serum and vaccine - Other nonmedicinal substance allergy status - Unspecified mood [affective] disorder - Unspecified asthma, uncomplicated - Allergy status to penicillin - Allergy to seafood - Hyperlipidemia, unspecified - Other surgical procedures as the cause of abnormal reaction of the patient, or of later complication, without mention of misadventure at the time of the procedure - Hyperlipidemia, unspecified - Other surgical procedures as the cause of abnormal reaction of the patient, or of later complication, without mention of misadventure at the time of the procedure - Displaced fracture of greater tuberosity of right humerus, subsequent encounter for fracture with routine healing - Allergy status to penicillin - Infection of amputation stump, left lower extremity - Allergy to seafood - Dorsalgia, unspecified - Other nonmedicinal substance allergy status - Other chronic pain - Other equipment operator intermodal yard (current) drug therapy - Unspecified asthma, uncomplicated - Dorsalgia, unspecified - Type 2 diabetes mellitus without complications 09/04/2020 14:[address] [facility] OR TYPE: Medical Surgical COMPLAINT: - DIVERTICULITIS DIAGNOSES: - extermination inspector (current) use of aspirin - Allergy status to other drugs, medicaments and biological substances - Hypomagnesemia - retirement (current) use of insulin - Hypothyroidism, unspecified - Dorsalgia, unspecified - Hyperlipidemia, unspecified - Personal history of nicotine dependence - Chronic pain syndrome - Allergy status to serum and vaccine - Acquired absence of left leg below knee - Type 2 diabetes mellitus with diabetic neuropathy, unspecified - Diverticulitis of large intestine without perforation or abscess without bleeding - extermination inspector (current) use of opiate analgesic - Allergy status to penicillin - Moderate persistent asthma, uncomplicated - Essential (primary) hypertension - Gastro-esophageal reflux disease without esophagitis - Other equipment operator intermodal yard (current) drug therapy - extermination inspector (current) use of inhaled steroids [email or web address]
[2021-07-31] MEDS ORDERED: CEPHALEXIN500 M1 PO (16:04)
== END 2021-07-31 17:33 | disposition home or self-care (01) ==
LOC: ED 13:03
DX: Z47.81 Encounter for orthopedic aftercare following surgical amputation (principal); Z89.512 Acquired absence of left leg below knee; E11.9 Type 2 diabetes mellitus without complications; J45.909 Unspecified asthma, uncomplicated; I10 Essential (primary) hypertension; E03.9 Hypothyroidism, unspecified; E11.21 Type 2 diabetes mellitus with diabetic nephropathy; Z87.891 Personal history of nicotine dependence; Z88.0 Allergy status to penicillin; Z91.013 Allergy to seafood; Z88.7 Allergy status to serum and vaccine; Z88.8 Allergy status to other drugs, medicaments and biological substances; Z79.82 Long term (current) use of aspirin; Z79.899 Other long term (current) drug therapy; Z79.84 Long term (current) use of oral hypoglycemic drugs; Z79.4 Long term (current) use of insulin
CPT/HCPCS: 36415; 73590; 80048; 83605; 85025; 87070; 87205; 96365; 99283-25; J0696

== ENCOUNTER 2022-10-06 01:37 | Inpatient (IN) | payer OTHER ==
[~2022-10-06] VITALS: Ht 160 cm; Wt 127.1 kg
[~2022-10-06 01:37] MED LIST changes: +CEPHALEXIN500 M1 PO; +FLUTICASONE-SA1 EAC5 INH; -FLUTICASONE-SA1 EAC5 PO
--- OUTSIDE RECORDS SUMMARY | 2022-10-06 01:39 | XMS ---
PreManage Notification: PHOENIX MISHRA Security Gang Boss Events No recent Security Events currently on file CRITERIA MET - Group Notification - PDMP CARE PROVIDERS -, [place]- Dentist: Wind Farm Designer [facility] PHONE: [phone] CORI BROWN Can Sealer Scott Griffin PHONE: [phone] SHALOM GIRARD Internal Medicine Current PHONE: [phone] FABIOLA MAX Nurse Practitioner Current PHONE: [phone] JOANN RODRIGUEZ Internal Medicine 12/20/2019-Current PHONE: [phone] NABILA MONZON Nurse Practitioner: Family Current PHONE: Unknown CRYSTAL Family Medicine 08/05/2018-Current CELINA Graham PHONE: [phone] TERRI Nurse Practitioner Scott BRICENO PHONE: [phone] Kristina Bui Physician Director Of Sustainable Design Current Rhonda OSMAN PHONE: Unknown PETTY [facility] Current PHONE: [phone] Slaeem has no Care Guidelines for this patient. Care History Medical/Surgical 02/23/2019 [facility] CAUTION PRESCRIBING NARCOTICS - PATIENT IS UNDER PAIN PLAN WITH PCP DR CELINA ROJAS IF PATIENT NEEDS PAIN MED ACUTELY - GIVE 2-3 DAYS WORTH RX, THEN PATIENT IS TO CONTACT PCP FOR FURTHER MEDS.\T\nbsp; DO NOT TELL HER TO TAKE MORE OF WHAT SHE IS CURRENTLY ON.\T\nbsp; THIS WAS REQUESTED BY PCP DR ROJAS. Kelly VISIT COUNT (12 MO.) [address] [place] [address]. TOTAL 1 NOTE: Visits indicate total known visits. ED/UCC VISIT TRACKING (12 MO.) 10/06/2022 01:37 [facility] TYPE: Emergency COMPLAINT: - WEAKENSS INPATIENT VISIT TRACKING (12 MO.) No inpatient visits to display in this time frame [email or web address]
[2022-10-06] MEDS ORDERED: PRENATAL VITAM1 EAC5 PO (01:56)
[2022-10-06] MEDS ORDERED: HYDROXYZINE HCL25 MG PO (01:56)
[2022-10-06] MEDS ORDERED: ARIPIPRAZOLE10 MG PO (01:57)
[2022-10-06] MEDS ORDERED: BUSPIRONE HCL10 MG PO (08:58)
[2022-10-06] MEDS ORDERED: GABAPENTIN300 MG PO (09:00)
[2022-10-06] MEDS ORDERED: INSULIN GL100 UNIT/2 SUB-Q (09:03)
[2022-10-06] MEDS ORDERED: LISINOPRIL20 MG PO (09:03)
[2022-10-06] MEDS ORDERED: LORATADINE10 MG PO (09:05)
[2022-10-06] MEDS ORDERED: LO-DOSE ASPIRIN81 MG PO (09:08)
[2022-10-06] MEDS ORDERED: PREGABALIN150 MG PO (12:37)
[2022-10-08] MEDS ORDERED: CEFPODOXIME PR200 MG PO (10:10)
[2022-10-08] MEDS ORDERED: AZITHROMYCIN250 MG PO (10:11)
== END 2022-10-08 10:51 | disposition home or self-care (01) | DRG 202 ==
LOC: ED 01:37 → MS 01:38
PROVIDERS: ADMIT Internal Medicine; ATTEND Internal Medicine
DX: J45.901 Unspecified asthma with (acute) exacerbation (principal); N39.0 Urinary tract infection, site not specified; Z20.822 Contact with and (suspected) exposure to COVID-19; G89.4 Chronic pain syndrome; E03.9 Hypothyroidism, unspecified; M54.9 Dorsalgia, unspecified; E11.40 Type 2 diabetes mellitus with diabetic neuropathy, unspecified; Z89.512 Acquired absence of left leg below knee; Z87.891 Personal history of nicotine dependence; Z90.49 Acquired absence of other specified parts of digestive tract; Z98.890 Other specified postprocedural states; Z88.0 Allergy status to penicillin; Z88.1 Allergy status to other antibiotic agents; Z88.7 Allergy status to serum and vaccine; Z91.013 Allergy to seafood; Z79.4 Long term (current) use of insulin; Z79.82 Long term (current) use of aspirin; Z79.899 Other long term (current) drug therapy
CPT/HCPCS: 36415; 71045; 80048; 80053; 81001; 83605; 85025; 87088; 87502; 94640; 94760; 97161; A9270; C9803; J0696; J1815; J7030; Q0177; U0003

== ENCOUNTER 2023-05-21 10:56 | Inpatient (IN) | payer OTHER ==
[~2023-05-21] VITALS: Ht 160 cm; Wt 125.5 kg
[~2023-05-21 10:56] MED LIST changes: +ARIPIPRAZOLE10 MG PO; +AZITHROMYCIN250 MG PO; +BUSPIRONE HCL10 MG PO; +CEFPODOXIME PR200 MG PO; +HYDROXYZINE HCL25 MG PO; +INSULIN GL100 UNIT/2 SUB-Q; +LORATADINE10 MG PO; +PREDNISONE20 MG PO; +PREGABALIN150 MG PO; +PRENATAL VITAM1 EAC5 PO
--- OUTSIDE RECORDS SUMMARY | 2023-05-21 10:58 | XMS ---
PreManage Notification: PHOENIX MISHRA Security Occupational Therapy Professor Events No recent Security Events currently on file CRITERIA MET - Group Notification CARE PROVIDERS MiguelEster Cardiothoracic Physiotherapist/Hand Collator 02/26/2023-Current PHONE: [phone] JOANN RODRIGUEZ Internal Medicine 12/20/2019-Current PHONE: [phone] [facility] CELINA Graham PHONE: [phone] -[place]- Dentist: Machine Repairer [facility] PHONE: [phone] CORI BROWN Second Chef Current ROBBY Griffin PHONE: [phone] SHALOM GIRARD Internal Medicine Current PHONE: [phone] FABIOLA MAX Nurse Practitioner Current PHONE: [phone] NABILA MONZON Nurse Practitioner: Family Current PHONE: Unknown TERRI Nurse Practitioner Current WILLY BRICENO PHONE: [phone] Kristina Bui Physician Current Rhonda OSMAN [facility]: [facility] PHONE: [phone] Saleem has no Care Guidelines for this [...] DR ROJAS. E.D. VISIT COUNT (12 MO.) [address] [place] [address] TOTAL 3 NOTE: Visits indicate total known visits. ED/UCC VISIT TRACKING (12 MO.) 05/21/2023 10:57 [facility] TYPE: Emergency COMPLAINT: - WEAKNESS 10/17/2022 12:51 [facility] TYPE: Emergency COMPLAINT: - CONGESTION, SOB 10/06/2022 01:37 [facility] TYPE: Emergency COMPLAINT: - WEAKENSS INPATIENT VISIT TRACKING (12 MO.) 10/17/2022 12:52 [facility] TYPE: Observation COMPLAINT: - HYPERKALEMIA DIAGNOSES: - Allergy status to other antibiotic agents - Allergy status to penicillin - Allergy status to serum and vaccine - Allergy to seafood - Chronic pain syndrome - Contact with and (suspected) exposure to COVID-19 - Essential (primary) hypertension - Hyperkalemia - Hypothyroidism, unspecified - Type 2 diabetes mellitus with diabetic neuropathy, unspecified - Unspecified asthma, uncomplicated 10/06/2022 12:10 [facility] TYPE: Medical Surgical COMPLAINT: - UTI,ACUTE BRONCHITIS,TYPE II DM DIAGNOSES: - Acquired absence of left leg below knee - Acquired absence of left leg below knee - Acquired absence of other specified parts of digestive tract - Acquired absence of other specified parts of digestive tract - Allergy status to other antibiotic agents - Allergy status to other antibiotic agents - Allergy status to penicillin - Allergy status to penicillin - Allergy status to serum and vaccine - Allergy status to serum and vaccine - Allergy to seafood - Allergy to seafood - Chronic pain syndrome - Chronic pain syndrome - Contact with and (suspected) exposure to COVID-19 - Contact with and (suspected) exposure to COVID-19 - Dorsalgia, unspecified - Dorsalgia, unspecified - Hypothyroidism, unspecified - Hypothyroidism, unspecified - USP (current) use of aspirin - USP (current) use of aspirin - expeditionary force combat skills (current) use of insulin - USP (current) use of insulin - Other senior living (current) drug therapy - Other welder gun (current) drug therapy - Other specified postprocedural states - Other specified postprocedural states - Personal history of nicotine dependence - Personal history of nicotine dependence - Type 2 diabetes mellitus with diabetic neuropathy, unspecified - Type 2 diabetes mellitus with diabetic neuropathy, unspecified - Unspecified asthma with (acute) exacerbation - Unspecified asthma with (acute) exacerbation - Unspecified asthma, uncomplicated - Urinary tract infection, site not specified - Urinary tract infection, site not specified [email or web address]
[2023-05-21 12:21] LABS: BASOPHILS 0.4 % (0-2); EOSINOPHILS 3.9 % (0-6); HEMATOCRIT 41.3 % (35.0-50.0); HEMOGLOBIN 13.2 g/dL (12.0-18.0); LYMPHOCYTES 12.8 % (24-44); MCH 26.7 (27-36); MCHC 31.9 g/dl (30-36); MCV 83.9 fl (81-99); MONOCYTES 6.3 % (0-12); NEUTROPHILS 76.6 % (39-80); PLATELET COUNT 238 K/uL (140-440); RBC 4.92 M/ul (4.3-5.7); RDW 14.8 (10.5-15.0)
[2023-05-21 12:25] LABS: ALBUMIN 2.9 g/dL (3.4-5.0); ALBUMIN/GLOBULIN RATIO 0.69 (1.1-2.4); ANION GAP 13.2 (7-21); BILIRUBIN, TOTAL 0.5 ng/dL (0.2-1.0); BUN/CREATININE RATIO 22.41 (6.0-28.6); CREATININE, SERUM 1.74 mg/dL (0.55-1.02); POTASSIUM 5.2 mmol/L (3.5-5.1); PROTEIN, TOTAL 7.1 g/dL (6.4-8.2)
[2023-05-21 14:04] LABS: BILIRUBIN, URINE POSITIVE (negative); BLOOD/HGB, URINE NEGATIVE (Negative); KETONE, URINE SMALL (Negative); LEUK ESTERASE, URINE MODERATE (negative); NITRITE, URINE NEGATIVE (negative)
[2023-05-21 14:11] LABS: BACTERIA, URINE 4+ /hpf (negative); CASTS, URINE NONE SEEN \\lpf; CRYSTALS, URINE NONE SEEN (0-1+); EPITHELIAL CELLS, URINE SQUAMOUS 1+ /lpf (0-1+); RED BLOOD CELLS, URINE 0-1 /hpf (0-5); WHITE BLOOD CELLS, URINE 41-50 /HPF (0-5)
[2023-05-21 14:12] LABS: COLLECTION TYPE, URINE CLEAN CATCH; REFLEX CULTURE, URINE Yes (No)
[2023-05-21 14:27] LABS: INFLUENZA B NAA NEGATIVE (NEGATIVE); RESPIRATORY SYNCYTIAL VIR NAA NEGATIVE (NEGATIVE)
[2023-05-21] MEDS ORDERED: PROPRANOLOL HCL80 MG PO (15:19)
[2023-05-21] MEDS ORDERED: PREGABALIN200 MG PO (17:15)
[2023-05-21] MEDS ORDERED: GLIMEPIRIDE2 MG PO (17:16)
[2023-05-21 17:17] VITALS: BP 113/66
[2023-05-21] MEDS ORDERED: LISINOPRIL40 MG PO (17:17)
[2023-05-21] MEDS ORDERED: ROPINIROLE HCL2 MG PO (17:18)
[2023-05-21 20:10] VITALS: BP 151/116
[2023-05-22 01:53] VITALS: BP 162/91
[2023-05-22 05:25] LABS: BASOPHILS 0.9 % (0-2); HEMATOCRIT 35.3 % (35.0-50.0); HEMOGLOBIN 11.3 g/dL (12.0-18.0); LYMPHOCYTES 28.9 % (24-44); MCHC 32.1 g/dl (30-36); MONOCYTES 9.9 % (0-12); NEUTROPHILS 55.3 % (39-80); PLATELET COUNT 190 K/uL (140-440); RBC 4.21 M/ul (4.3-5.7); RDW 14.6 (10.5-15.0)
[2023-05-22 05:30] LABS: ANION GAP 15.4 (7-21); BUN/CREATININE RATIO 23.66 (6.0-28.6); CALCIUM 8.1 mg/dL (8.5-10.1); CREATININE, SERUM 1.69 mg/dL (0.55-1.02); POTASSIUM 4.4 mmol/L (3.5-5.1)
[2023-05-22 05:34] VITALS: BP 100/71
--- NOTE | 2023-05-22 06:32 | EKG ---
[facility] [address] [facility] [place], [place] [address] Signed Sinus tachycardia Otherwise normal ECG When compared with ECG of 17-OCT-2022 13:24, No significant change was found Confirmed by CORI SANCHES MD ([id number]) on 05/22/2023 6:31:54 AM Electronically Signed By: CORI SANCHES 05/22/23 0632 PATIENT NAME: PHOENIX MISHRA Electrocardiogram DATE OF : 69 PHYSICIAN: CORI SANCHES REPORT #: [id number] REPORT IS CONFIDENTIAL AND NOT TO BE RELEASED WITHOUT AUTHORIZATION
[2023-05-22 09:51] VITALS: BP 124/74
[2023-05-22] MEDS ORDERED: CEPHALEXIN500 MG PO (11:56)
[2023-05-22 16:54] VITALS: BP 112/56
[2023-05-22 20:12] VITALS: BP 101/63
[2023-05-23 06:13] VITALS: BP 97/64
[2023-05-23 06:54] LABS: BASOPHILS 0.6 % (0-2); EOSINOPHILS 5.9 % (0-6); HEMATOCRIT 36.4 % (35.0-50.0); HEMOGLOBIN 11.6 g/dL (12.0-18.0); LYMPHOCYTES 32.3 % (24-44); MCH 26.8 (27-36); MCHC 31.8 g/dl (30-36); MCV 84.2 fl (81-99); MONOCYTES 8.3 % (0-12); NEUTROPHILS 52.9 % (39-80); PLATELET COUNT 206 K/uL (140-440); RBC 4.32 M/ul (4.3-5.7); RDW 15.1 (10.5-15.0)
[2023-05-23 07:04] LABS: ANION GAP 12.4 (7-21); BUN/CREATININE RATIO 20.86 (6.0-28.6); CALCIUM 8.7 mg/dL (8.5-10.1); CREATININE, SERUM 1.15 mg/dL (0.55-1.02); POTASSIUM 4.4 mmol/L (3.5-5.1)
[2023-05-23 09:44] VITALS: BP 141/74
[2023-05-23 14:09] VITALS: BP 113/72
[2023-05-23 17:59] VITALS: BP 139/51
[2023-05-23 20:28] VITALS: BP 128/103
[2023-05-24 05:37] VITALS: BP 126/97
[2023-05-24 14:13] VITALS: BP 113/68
[2023-05-24 18:07] VITALS: BP 121/62
[2023-05-24 21:49] VITALS: BP 103/47
[2023-05-24 22:20] VITALS: BP 125/51
[2023-05-25 06:39] VITALS: BP 99/64
[2023-05-25] MEDS ORDERED: CEPHALEXIN500 MG PO (09:06)
[2023-05-25 09:38] VITALS: BP 134/99
== END 2023-05-25 12:57 | disposition home or self-care (01) | DRG 683 ==
LOC: ED 10:56 → MS 10:58
PROVIDERS: Emergency Medicine; ADMIT Family Medicine; ATTEND Family Medicine
DX: N17.9 Acute kidney failure, unspecified (principal); N39.0 Urinary tract infection, site not specified; E87.5 Hyperkalemia; G25.0 Essential tremor; E03.9 Hypothyroidism, unspecified; G47.00 Insomnia, unspecified; E86.0 Dehydration; F12.90 Cannabis use, unspecified, uncomplicated; J45.909 Unspecified asthma, uncomplicated; I10 Essential (primary) hypertension; M54.9 Dorsalgia, unspecified; G89.29 Other chronic pain; E11.40 Type 2 diabetes mellitus with diabetic neuropathy, unspecified; M25.551 Pain in right hip; Z87.891 Personal history of nicotine dependence; Z90.49 Acquired absence of other specified parts of digestive tract; Z89.512 Acquired absence of left leg below knee; Z98.890 Other specified postprocedural states; Z88.0 Allergy status to penicillin; Z91.013 Allergy to seafood; Z91.041 Radiographic dye allergy status; Z88.1 Allergy status to other antibiotic agents; Z88.7 Allergy status to serum and vaccine; Z79.51 Long term (current) use of inhaled steroids; Z79.899 Other long term (current) drug therapy; Z79.890 Hormone replacement therapy; Z79.84 Long term (current) use of oral hypoglycemic drugs; Z79.02 Long term (current) use of antithrombotics/antiplatelets; Z79.4 Long term (current) use of insulin; Z79.82 Long term (current) use of aspirin; Z11.52 Encounter for screening for COVID-19
CPT/HCPCS: 36415; 70551; 71045; 80048; 80053; 81001; 83036; 83605; 85025; 87088; 87502; 93005; 93010; 96372; 96374; 96375; 96376; 97110; 97162; 97166; 97530; 97535; 99285-25; A9270; C9803; G0378; J0696; J1650; J2405; J7030; U0002

== ENCOUNTER 2023-05-30 19:28 | Emergency (ER) | payer OTHER ==
[~2023-05-30] VITALS: Ht 160 cm; Wt 125.2 kg
[~2023-05-30 19:28] MED LIST changes: +LISINOPRIL40 MG PO; +PREGABALIN200 MG PO; +PROPRANOLOL HCL80 MG PO; +ROPINIROLE HCL2 MG PO
--- OUTSIDE RECORDS SUMMARY | 2023-05-30 19:30 | XMS ---
PreManage Notification: PHOENIX MISHRA Security Slasher Events No recent Security Events currently on file CRITERIA MET - Group Notification - [facility] - 2 Visits in 30 Days CARE PROVIDERS Ester Rivera [employer] Founder/Seo Specialist 02/26/2023-Current PHONE: [phone] JOANN RODRIGUEZ Internal Medicine 12/20/2019-Current PHONE: [phone] [facility]Scott Graham PHONE: [phone] -Karen- Dentist: Investor Relations Director [facility] Dental [facility] PHONE: [phone] CORI BROWN Pump House Operator Current BUSTAMANTE DPM F PHONE: [phone] SHALOM GIRARD Internal Medicine Current PHONE: [phone] FABIOLA MAX Nurse Practitioner Current PHONE: [phone] NABILA MONZON Nurse Practitioner: Family Current PHONE: Unknown TERRI Nurse Practitioner Current WILLY BRICENO PHONE: [phone] Kristina Bui Physician Current Rhonda OSMAN PHONE: Unknown PETTY [facility] Current PHONE: [phone] Saleem has no Care Guidelines for this patient. Care History Medical/Surgical 02/23/2019 [facility] CAUTION PRESCRIBING NARCOTICS - PATIENT IS UNDER PAIN PLAN WITH PCP DR CELINA ROJAS IF PATIENT NEEDS PAIN MED ACUTELY - GIVE 2-3 DAYS WORTH RX, THEN PATIENT IS TO CONTACT PCP FOR FURTHER MEDS.\T\nbsp; DO NOT TELL HER TO TAKE MORE OF WHAT SHE IS CURRENTLY ON.\T\nbsp; THIS WAS REQUESTED BY PCP DR ROJAS. Gael. VISIT COUNT (12 MO.) 4 [facility] TOTAL 4 NOTE: Visits indicate total known visits. ED/UCC VISIT TRACKING (12 MO.) 05/30/2023 19:29 [facility] TYPE: Emergency COMPLAINT: - DIFFACULT OF BREATHING 05/21/2023 10:[address] [facility] TYPE: Emergency COMPLAINT: - WEAKNESS 10/17/2022 12:51 [facility] TYPE: Emergency COMPLAINT: - CONGESTION, SOB 10/06/2022 01:37 [facility] TYPE: Emergency COMPLAINT: - WEAKENSS INPATIENT VISIT TRACKING (12 MO.) 05/23/2023 11:54 [facility] TYPE: Medical Surgical COMPLAINT: - UTI,EVA DIAGNOSES: - Acquired absence of left leg below knee - Acquired absence of other specified parts of digestive tract - Acute kidney failure, unspecified - Allergy status to other antibiotic agents - Allergy status to penicillin - Allergy status to serum and vaccine - Allergy to seafood - Cannabis use, unspecified, uncomplicated - Dehydration - Dorsalgia, unspecified - Encounter for screening for COVID-19 - Essential (primary) hypertension - Essential tremor - Hormone replacement therapy - Hyperkalemia - Hypothyroidism, unspecified - Insomnia, unspecified - terminologist (current) use of antithrombotics/antiplatelets - FCI (current) use of aspirin - terminologist (current) use of inhaled steroids - [facility]CI (current) use of insulin - [facility]CI (current) use of oral hypoglycemic drugs - Other chronic pain - Other director long term care (current) drug therapy - Other specified postprocedural states - Pain in right hip - Personal history of nicotine dependence - Radiographic dye allergy status - Type 2 diabetes mellitus with diabetic neuropathy, unspecified - Unspecified asthma, uncomplicated - Urinary tract infection, site not specified 10/17/2022 12:52 [facility] TYPE: Observation [...] - Hypothyroidism, unspecified - Hypothyroidism, unspecified - FCI (current) use of aspirin - FCI (current) use of aspirin - terminologist (current) use of insulin - FCI (current) use of insulin - Other assisted (current) drug therapy - Other assisted (current) drug therapy - Other specified postprocedural [...] - Urinary tract infection, site not specified [email or web address]
[2023-05-30 19:59] LABS: EOSINOPHILS 4.9 % (0-6); HEMATOCRIT 39.6 % (35.0-50.0); HEMOGLOBIN 12.6 g/dL (12.0-18.0); MCH 26.7 (27-36); MCHC 31.9 g/dl (30-36); MCV 83.6 fl (81-99); MONOCYTES 5.9 % (0-12); NEUTROPHILS 65.2 % (39-80); PLATELET COUNT 307 K/uL (140-440); RBC 4.73 M/ul (4.3-5.7); RDW 15.7 (10.5-15.0)
[2023-05-30 20:23] LABS: ALBUMIN 2.8 g/dL (3.4-5.0); ALBUMIN/GLOBULIN RATIO 0.65 (1.1-2.4); ALKALINE PHOSPHATASE 98 U/L (46-116); ALT (SGPT) 22 U/L (14-59); AST (SGOT) 18 U/L (15-37); BILIRUBIN, TOTAL 0.3 ng/dL (0.2-1.0); BUN/CREATININE RATIO 21.23 (6.0-28.6); CALCIUM 8.6 mg/dL (8.5-10.1); CARBON DIOXIDE 23 mmol/L (21-32); CHLORIDE 108 mmol/L (98-107); CREATININE, SERUM 1.46 mg/dL (0.55-1.02); GLOMERULAR FILTRATION RATE,EST 42 mL/min (>60); PROTEIN, TOTAL 7.1 g/dL (6.4-8.2); UREA NITROGEN 31 mg/dL (7-18)
[2023-05-30 20:43] LABS: INFLUENZA B NAA NEGATIVE (NEGATIVE); RESPIRATORY SYNCYTIAL VIR NAA NEGATIVE (NEGATIVE)
--- NOTE | 2023-05-30 22:58 | EKG ---
[facility] [address] [place] [address] Signed Normal sinus rhythm Normal ECG When compared with ECG of 21-MAY-2023 11:30, No significant change was found Confirmed by Caridad Gates MD () on 05/30/2023 10:58:02 PM Electronically Signed By: CARIDAD GATES MD 05/30/23 2258 PATIENT NAME: PHOENIX MISHRA Electrocardiogram DATE OF : 69 PHYSICIAN: CARIDAD GATES MD REPORT #: [id number] REPORT IS CONFIDENTIAL AND NOT TO BE RELEASED WITHOUT AUTHORIZATION
[2023-05-30] MEDS ORDERED: TRAMADOL HCL50 MG PO (23:39)
[2023-05-30] MEDS ORDERED: METHYLPREDNISOLO4 M1 PO (23:52)
[2023-05-31 00:08] VITALS: BP 162/78
== END 2023-05-31 00:28 | disposition home or self-care (01) ==
LOC: ED 19:28
PROVIDERS: Family Medicine
DX: J45.901 Unspecified asthma with (acute) exacerbation (principal); R25.2 Cramp and spasm; I10 Essential (primary) hypertension; E11.40 Type 2 diabetes mellitus with diabetic neuropathy, unspecified; E03.9 Hypothyroidism, unspecified; Z20.822 Contact with and (suspected) exposure to COVID-19; Z87.891 Personal history of nicotine dependence; Z88.0 Allergy status to penicillin; Z88.1 Allergy status to other antibiotic agents; Z88.7 Allergy status to serum and vaccine; Z88.8 Allergy status to other drugs, medicaments and biological substances; Z91.013 Allergy to seafood; Z79.84 Long term (current) use of oral hypoglycemic drugs; Z79.4 Long term (current) use of insulin; Z79.82 Long term (current) use of aspirin
CPT/HCPCS: 36415; 71045; 71260; 80053; 83880; 84484; 85025; 85379; 87502; 93005; 93010; 93971; 94640; A9270; C9803; J2270; J2930; Q9967; U0002

== ENCOUNTER 2024-11-02 13:27 | Emergency (ER) | payer OTHER ==
[~2024-11-02] VITALS: Ht 160 cm; Wt 110.0 kg
[~2024-11-02 13:27] MED LIST changes: +BACTRIM DS TAB1 EACH PO; +BUPROPION HCL75 MG PO; +CEFDINIR300 MG PO; +GLIPIZIDE ER10 MG PO; +HYDROCODON-ACE1 EA10 PO; +LEVOTHYROXINE150 MCG PO; +METFORMIN HCL500 M1 PO; +METHYLPREDNISOLO4 M1 PO; +PREGABALIN100 MG PO; +VENTOLIN HFA18 GM INH
[2024-11-02] MEDS ORDERED: OXYCODONE HCL5 MG (13:44)
[2024-11-02] MEDS ORDERED: HYDROXYZINE HCL50 MG (13:44)
[2024-11-02] MEDS ORDERED: ALBUTEROL2.5 MG/3 M (13:44)
[2024-11-02] MEDS ORDERED: PREGABALIN75 MG (13:44)
[2024-11-02] MEDS ORDERED: DAPAGLIFLOZIN10 MG (13:44)
[2024-11-02] MEDS ORDERED: LEVOTHYROXINE175 MCG (13:44)
[2024-11-02] MEDS ORDERED: LISINOPRIL20 MG (13:47)
[2024-11-02] MEDS ORDERED: BUPROPION HCL75 MG (13:48)
[2024-11-02] MEDS ORDERED: ROPINIROLE HCL2 M1 (13:48)
[2024-11-02] MEDS ORDERED: PROPRANOLOL HCL80 MG (13:49)
[2024-11-02] MEDS ORDERED: OXYCODONE HCL 5 MG TAB PO ONE (14:30)
[2024-11-02 14:45] VITALS: BP 130/82
== END 2024-11-02 15:00 | disposition home or self-care (01) ==
LOC: ED 13:27
DX: M25.561 Pain in right knee (principal); E11.40 Type 2 diabetes mellitus with diabetic neuropathy, unspecified; E03.9 Hypothyroidism, unspecified; J45.909 Unspecified asthma, uncomplicated; I10 Essential (primary) hypertension; Z79.899 Other long term (current) drug therapy; Z88.0 Allergy status to penicillin; Z91.013 Allergy to seafood; Z91.041 Radiographic dye allergy status; Z88.1 Allergy status to other antibiotic agents; Z88.7 Allergy status to serum and vaccine; Z87.891 Personal history of nicotine dependence
CPT/HCPCS: 73560; 73610; 99283; A9270

== ENCOUNTER 2025-02-14 17:31 | Inpatient (IN) | payer OTHER ==
[~2025-02-14] VITALS: Ht 160 cm; Wt 120.7 kg
[~2025-02-14 17:31] MED LIST changes: +ALBUTEROL2.5 MG/3 M NEB; +BUPROPION HCL100 MG PO; +DAPAGLIFLOZIN10 MG PO; +HYDROXYZINE HCL50 MG PO; +LEVOTHYROXINE175 MCG PO; +LISINOPRIL20 MG; +OXYCODONE HCL5 M3 PO; +PREGABALIN75 MG PO; +PROPRANOLOL HCL80 MG; +ROPINIROLE HCL1 MG PO
[2025-02-14] MEDS ORDERED: ASPIRIN 81 MG CHEW PO ONE (17:45)
[2025-02-14 17:49] LABS: BASOPHILS 0.4 % (0.1-1.2); EOSINOPHILS 1.4 % (0.7-5.8); LYMPHOCYTES 9.9 % (19.3-51.7); MCH 25.2 PG (25.6-32.2); MCHC 29.6 g/dL (32.2-35.5); MCV 85.2 fL (79.4-94.8); MONOCYTES 6.0 % (4.7-12.5); NEUTROPHILS 81.7 % (34.0-71.1); RBC 4.05 M/uL (3.93-5.22)
[2025-02-14 18:09] LABS: ALT (SGPT) 13 U/L (14-59); AST (SGOT) 9 U/L (15-37); GLOMERULAR FILTRATION RATE,EST 16 mL/min (>60); PROTEIN, TOTAL 8.3 g/dL (6.4-8.2); UREA NITROGEN 46 mg/dL (7-18)
[2025-02-14 18:45] LABS: BLOOD/HGB, URINE MODERATE (Negative); KETONE, URINE NEGATIVE (Negative); LEUK ESTERASE, URINE LARGE (negative); NITRITE, URINE NEGATIVE (negative)
[2025-02-14 18:53] LABS: EPITHELIAL CELLS, URINE 0 /lpf (0-1+)
[2025-02-14 18:54] LABS: BACTERIA, URINE 2+ /hpf (negative); CASTS, URINE NONE SEEN \\lpf; CRYSTALS, URINE NONE SEEN (0-1+); REFLEX CULTURE, URINE Yes (No)
[2025-02-14] MEDS ORDERED: AZITHROMYCIN 500 MG in DEXTROSE 5% 250 ML IV ONE (19:00)
[2025-02-14] MEDS ORDERED: MAGNESIUM SULFATE 2 GM/50 ML BAG IV ONE (19:00)
[2025-02-14] MEDS ORDERED: SODIUM CHLORIDE 0.9% 1,000 ML IV PRN (19:15)
[2025-02-14] MEDS ORDERED: DEXTROSE 5% 1,000 ML IV PRN (19:45)
[2025-02-14] MEDS ORDERED: ACETAMINOPHEN 325 MG TAB PO PRN (19:45)
[2025-02-14] MEDS ORDERED: GLUCAGON,HUMAN RECOMBINANT 1 MG/ML VIAL SUB-Q PRN (19:45)
[2025-02-14] MEDS ORDERED: IBLOOD GLUCOSE TEST STRIP 1 EA TEST XX PRN (19:45)
[2025-02-14] MEDS ORDERED: DEXTROSE 50% 50 ML SYR IV PRN ×2 (19:45)
[2025-02-14] MEDS ORDERED: SODIUM CHLORIDE 0.9% 1,000 ML IV SCH ×2 (19:45)
--- NOTE | 2025-02-14 19:49 | NUR ---
dr gatica at rn station and discussing pt admission to ms floor. verbal order read back to not give ordered rocephin and zithromax d/t pt being resistant and instead administer the newly ordered meropenem and levaquin-see emar. primary rn made aware and updated.
--- NOTE | 2025-02-14 20:30 | NUR ---
PATIENT ARRIVED TO THE FLOOR VIA MARINE PHOTOGRAPHER. PATIENT TRANSFERRED FROM STRETCHER TO BED BY STAFF. PATIENT INCONTINENT OF URINE AND SMALL BM. PATIENT BREIF AND NISSA CHANGED. WOUND NOTED ON LEFT BUTTOCK, PICTURE PLACED IN CHART. PHOTO CONSENT SIGNED BY PATIENT. WOUND WASHED WITH WOUND CLEANSER AND ALLYVEN IN PLACE WITH TODAYS DATE. BARRIER CREAM APPLIED TO SACRAL AREA. FULL BODY BED BATH COMPLETED. NEW GOWN PLACED. NEW PUREWICK PLACED AFTER JUANA CARE PROVIDED. PATIENT EDUCATED TO ROOM AND CALL LIGHT. NO FURTHER NEEDS AT THIS TIME. CALL LIGHT IN REACH.
--- NOTE | 2025-02-14 20:55 | NUR ---
spoke to dr gatica via phone asking if md wanted bolus to be complete before drawing lactic. bolus not yet started, primary rn preparing bolus. pt just now settled in bed from ed, see previous note. per md, okay to draw lactic now and start bolus. primary rn updated and aware. lab to come to pt room for lactic lab.
[2025-02-14] MEDS ORDERED: ADULT ASPIRIN R81 MG PO (21:00)
[2025-02-14] MEDS ORDERED: levoFLOXacin 750 MG PIGGYBACK IV SCH (21:00)
[2025-02-14] MEDS ORDERED: IBLOOD GLUCOSE TEST STRIP 1 EA TEST VI SCH (21:00)
[2025-02-14] MEDS ORDERED: INSULIN LISPRO 100 UNIT/ML ML SUB-Q SCH (21:00)
[2025-02-14] MEDS ORDERED: LIPITOR20 MG PO (21:01)
[2025-02-14 21:09] VITALS: BP 120/72
[2025-02-14] MEDS ORDERED: ROPINIROLE HCL 1 MG TAB PO SCH (21:16)
--- NOTE | 2025-02-14 21:25 | NUR ---
BS OBTAINED AND RECORDED. PATIENT BS READING OF 69. GRAPE JUICE AND PUDDING PROVIDED. PATIENT DENIES LOW BLOOD SUGAR SYMPTOMS CURRENTLY. PATIENT STATES SHE IS AWARE OF HOW SHE FEELS WHEN HER BLOOD SUGAR IS LOW AND IS NOT FEELING THAT WAY. PATIENT STATES 9/10 CHRONIC LOW BACK PAIN. PRN PAIN MEDICATION ADMINISTERED. SCHEDULED BOLUS INFUSING. SCHEDULED IV ABX INFUSING PER ORDER. IV FLUSHES WNL WITHOUT PAIN. PATIENT DENIES FURTHER NEEDS AT THIS TIME. CALL LIGHT IN REACH.
[2025-02-14] MEDS ORDERED: MEROPENEM 1,000 MG in SODIUM CHLORIDE 0.9% 100 ML IV SCH (22:00)
[2025-02-14] MEDS ORDERED: HEParin SOD (PORCINE) 5,000 UNIT/ML SDV SUB-Q SCH (22:00)
--- NOTE | 2025-02-14 22:12 | NUR ---
BLOOD SUGAR READING OBTAINED AND RECORDED. BS READING 89. PUDDING PROVIDED PER PATIENT REQUEST. NEW BAG IV FLUID INFUSING PER ORDER. IV FLUSHES WNL AT THIS TIME. SCHEDULED MEDICATIONS ADMINSITERED. PATIENT DENIES FURTHER NEEDS AND STATES SHE FEELS BETTER AFTER EATING. PATIENT HAS NO FURTHER NEEDS. CALL LIGHT IN REACH.
--- NOTE | 2025-02-14 23:06 | NUR ---
PATIENT RESTING IN BED. BS OBTAINED AND RECORDED. BS READING 137. NEW BAG IV ABX INFUSING PER ORDER. WOUND NOTED ON RIGHT LOWER LEG. PREVIOUS ALLYVEN REMOVED. PHOTO OF R LOWER LEG WOUND OBTAINED AND RECORDED. R LOWER LEG WOUND CLEANED WITH WOUND CLEANSER AND COVERED WITH NEW ALLYVEN. PICTURE OF R LEG WOUND PLACED IN CHART. PATIENT DENIES FURTHER NEEDS AT THIS TIME. CALL LIGHT IN REACH.
[2025-02-15] VITALS (11 sets, daily range): BP systolic 114–134; BP diastolic 54–73
[2025-02-15 00:26] LABS: INFLUENZA B NAA NEGATIVE (NEGATIVE); RESPIRATORY SYNCYTIAL VIR NAA NEGATIVE (NEGATIVE)
--- NOTE | 2025-02-15 00:27 | NUR ---
PATIENT RESTING IN BED WITH EYES CLOSED. RESPIRATIONS EVEN AND UNLABORED. CALL LIGHT IN REACH.
--- NOTE | 2025-02-15 01:37 | NUR ---
PATIENT RESTING IN BED WITH EYES CLOSED. RESPIRATIONS EVEN AND UNLABORED. VS AND I&Os OBTAINED AND RECORDED. NO FURTHER NEEDS NOTED AT THIS TIME. CALL LIGHT IN REACH.
--- NOTE | 2025-02-15 02:17 | NUR ---
PATIENT RESTING IN BED WITH EYES CLOSED. RESPIRATIONS EVEN AND UNLABORED. PATIENT REPOSITIONED IN BED WITH PILLOW PLACED UNDER LEFT HIP. NO FURTHER NEEDS. CALL LIGHT IN REACH.
--- NOTE | 2025-02-15 04:39 | NUR ---
PATIENT RESTING IN BED. AWAKENS EASILY. VS AND I&Os OBTAINED AND RECORDED. NEW PUREWICK PLACED AFTER PERICARE PROVIDED. PATIENT REPOSITIONED IN BED. PATIENT HAS NO FURTHER NEEDS AT THIS TIME. FRESH WATER PROVIDED. BED ALARM ON FOR SAFETY. CALL LIGHT IN REACH.
[2025-02-15 05:55] LABS: BASOPHILS 0.6 % (0.1-1.2); EOSINOPHILS 3.5 % (0.7-5.8); LYMPHOCYTES 18.3 % (19.3-51.7); MCH 25.4 PG (25.6-32.2); MCHC 30.1 g/dL (32.2-35.5); MCV 84.1 fL (79.4-94.8); MONOCYTES 10.3 % (4.7-12.5); NEUTROPHILS 66.8 % (34.0-71.1); RBC 3.47 M/uL (3.93-5.22)
--- NOTE | 2025-02-15 06:05 | NUR ---
PATIENT RESTING IN BED. SCHEDULED MEDICATION ADMINISTERED. PATIENT DENIES FURTHER NEEDS AT THIS TIME. CALL LIGHT IN REACH.
[2025-02-15 06:11] LABS: ALT (SGPT) 12.0 U/L (14-59); AST (SGOT) 10.0 U/L (15-37); GLOMERULAR FILTRATION RATE,EST 18.0 mL/min (>60); PHOSPHORUS, INORGANIC 3.4 mg/dL (2.5-4.9); PROTEIN, TOTAL 6.5 g/dL (6.4-8.2); UREA NITROGEN 43.0 mg/dL (7-18)
--- NOTE | 2025-02-15 06:30 | NUR ---
LOW BLOOD SUGAR READING WITH MORNING LABS. THIS RN TO ROOM. BS OBTAINED AND RECORDED. BS READING OF 59. GRAPE JUICE, PUDDING, AND COFFEE WITH SUGAR PROVIDED. PATIENT STATES THAT SHE FEELS OK AT THIS TIME. THIS RN REMAINS IN ROOM.
--- NOTE | 2025-02-15 06:48 | NUR ---
BS OBTAINED AND RECORDED. BS READING OF 82. MS GATES UPDATED ON PATIENT BS VIA TELEPHONE. VERBAL ORDER FROM MD TO START D5W @ 100 MLS/HR AND NOT TO DC NS ORDER. VERIFIED USING REPEATBACK METHOD.
[2025-02-15] MEDS ORDERED: ALBUTEROL SULFATE 0.083% 3 ML VIAL INH PRN (07:15)
[2025-02-15] MEDS ORDERED: ALBUTEROL SULFATE 0.083% 3 ML VIAL ONE (07:24)
--- NOTE | 2025-02-15 07:25 | NUR ---
REPORT RECEIVED FROM INDIRA ZULUAGA. PATIENT IN BED WITH HOB RAISED, EYES OPEN, CHEST RISE EVEN AND UNLABORED. CALL LIGHT AND PERSONAL BELONGINGS IN REACH OF PATIENT. PATIENT DENIES CONCERNS AT THIS TIME. RT IN ROOM WITH PATIENT.
--- NOTE | 2025-02-15 07:33 | NUR ---
UR CLINICAL REVIEW: [facility] FOR PNEUMONIA, UTI PSI CLASS IV, IV FLUIDS, CREAT 3.30 WITH BASELINE 1.50 [facility] INPT 02/14/25 @ 1946 ORDER MATCHES REG AUTH PENDING, WILL SEND CLINICALS VIA [facility] FOR REVIEW PLAN TO RETURN TO [facility] 02/20/25
--- NOTE | 2025-02-15 07:52 | NUR ---
PATIENT IN BED AT THIS TIME. WOOD BOAT BUILDER SUPERVISOR OFFERED CHAIR TO PATIENT, PATIENT DECLINED. BLOOD SUGAR CHARTED. CALL LIGHT WITHIN REACH, INDIRA LÓPEZ AND INDIRA POTTER IN ROOM AT THIS TIME. NO FURTHER NEEDS.
--- NOTE | 2025-02-15 08:20 | NUR ---
PATIENT IN BED WITH HOB RAISED, EYES OPEN, CHEST RISE EVEN AND UNLABORED. ASSESMENT COMPLETED. PRN PAIN MEDICATION ADMINISTERED AT PATIENT'S REQUEST. PATIENT DENIES FURTHER CONCERNS AT THIS TIME. PATIENT REPOSITIONED IN BED. CALL LIGHT AND PERSONAL BELONGINGS IN REACH OF PATIENT.
--- NOTE | 2025-02-15 09:30 | NUR ---
PATIENT IN BED WITH HOB RAISED, EYES OPEN. CHEST RISE EVEN AND UNLABORED. CALL LIGHT AND PERSONAL BELONGINGS IN REACH OF PATIENT. PATIENT DENIES CONCERNS AT THIS TIME.
--- NOTE | 2025-02-15 09:45 | NUR ---
PATIENT IN BED AT THIS TIME. MELBA AGUILAR CHARTED VITALS AND I&O'S. CALL LIGHT WITHIN REACH, NO FURTHER NEEDS.
--- NOTE | 2025-02-15 10:30 | NUR ---
PATIENT IN BED WITH HOB RAISED, EYES OPEN, CHEST RISE EVEN AND UNLBAORED. CALL LIGHT AND PERSONAL BELONGINGS IN REACH OF PATIENT. PATIENT REPOSITIONED IN BED, SCHEDULED IV INFUSION STARTED. PATIENT REPORTS 7 ABDOMINAL PAIN, MD NOTIFIED. AWAITING ORDERS FOR IMAGING AND PAIN MEDICATION. PATIENT DENIES FURTHER CONCERNS AT THIS TIME.
[2025-02-15] MEDS ORDERED: ABILIFY10 MG PO (10:43)
[2025-02-15] MEDS ORDERED: ASPERCREME1 EACH TOP (10:47)
[2025-02-15] MEDS ORDERED: OMEPRAZOLE20 MG PO (10:49)
[2025-02-15] MEDS ORDERED: SENNA8.6 MG PO (10:50)
[2025-02-15] MEDS ORDERED: TRAZODONE HCL150 MG PO (10:51)
[2025-02-15] MEDS ORDERED: VITAMIN C500 M1 PO (10:51)
[2025-02-15] MEDS ORDERED: VITAMIN D325 MCG PO (10:57)
[2025-02-15] MEDS ORDERED: FLUTICASONE-SA1 EAC5 INH (10:58)
[2025-02-15] MEDS ORDERED: CRANBERRY450 M2 PO (10:59)
[2025-02-15] MEDS ORDERED: DULOXETINE HCL60 MG PO (11:02)
[2025-02-15] MEDS ORDERED: IRON325 M1 PO (11:03)
[2025-02-15] MEDS ORDERED: AZO D-MANNOSE500 MG PO (11:03)
--- NOTE | 2025-02-15 11:03 | NUR ---
UPDATES SENT TO [facility].
[2025-02-15] MEDS ORDERED: GLIPIZIDE ER10 MG PO (11:04)
[2025-02-15] MEDS ORDERED: METOPROLOL TART50 MG PO (11:06)
[2025-02-15] MEDS ORDERED: TYLENOL EXTRA500 MG PO (11:07)
[2025-02-15] MEDS ORDERED: MIRALAX17 GM PO ×2 (11:07→11:32)
[2025-02-15] MEDS ORDERED: THERA TEARS1 EAC1 OU (11:10)
[2025-02-15] MEDS ORDERED: COUGH DROPS2.7 MG MM (11:15)
[2025-02-15] MEDS ORDERED: TRAMADOL HCL 50 MG TAB PO PRN (11:15)
[2025-02-15] MEDS ORDERED: CYCLOBENZAPRINE5 MG PO (11:17)
[2025-02-15] MEDS ORDERED: DULCOLAX10 MG PR (11:18)
--- NOTE | 2025-02-15 11:18 | NUR ---
PATIENT IN BED WITH HOB RAISED, EYES OPEN, CHEST RISE EVEN AND UNLABORED. FORENSIC STRUCTURAL ENGINEER IN ROOM. PATIENT REPORTS ONGOING 7/10 ABDOMINAL PAIN. PATIENT REPORTS SHE IS UNABLE TO PIVOT FOR TRANSFERING UNLESS SHE HAS HER PROSTHETIC. PATIENT DOES NOT HAVE HER PROSTHETIC WITH HER CURRENTLY. FORENSIC STRUCTURAL ENGINEER NOTIFIED OF CARE PLAN CHANGE. PATIENT DENIES FURTHER CONCERNS AT THIS TIME. CALL LIGHT AND PERSONAL BELONGINGS IN REACH OF PATIENT.
[2025-02-15] MEDS ORDERED: FLEET ENEMA133 ML PR (11:19)
[2025-02-15] MEDS ORDERED: MILK OF MA400 MG/5 M PO (11:21)
[2025-02-15] MEDS ORDERED: MUSCLE RUB TOP (11:22)
[2025-02-15] MEDS ORDERED: NARCAN4 MG NAS (11:23)
[2025-02-15] MEDS ORDERED: NITROSTAT0.4 MG SL (11:24)
[2025-02-15] MEDS ORDERED: ONDANSETRON HCL4 MG PO (11:25)
[2025-02-15] MEDS ORDERED: VENTOLIN HFA18 GM INH (11:27)
--- NOTE | 2025-02-15 11:27 | NUR ---
MED REC COMPLETE
--- NOTE | 2025-02-15 11:45 | NUR ---
PATIENT IN BED WITH HOB RAISED, EYES OPEN, CHEST RISE EVEN AND UNLBAORED. PATIENT REPORTS 7/10 PAIN. PRN PAIN MEDICATION ADMINISTERED AT PATIENT'S REQUEST. PATIENT DENIES FURTHER CONCERNS AT THIS TIME. CALL LIGHT AND PERSONAL BELONGINGS IN REACH OF PATIENT.
--- NOTE | 2025-02-15 11:56 | NUR ---
PATIENT IN BED AT THIS TIME. MELBA SANCHEZ AND MELBA AGUILAR CHANGED PATIENTS JAMAR @1156. JUANA CARE WAS PROVIDED BY CNAS. CALL LIGHT WITHIN REACH, NO FURTHER NEEDS.
[2025-02-15] MEDS ORDERED: PHARMACY RENAL DOSE ADJUSTMENT 1 DOSE MISC PO SCH (12:00)
--- NOTE | 2025-02-15 12:20 | NUR ---
PATIENT IN BED WITH HOB RAISED, EYES OPEN, CHEST RISE EVEN AND UNLBAORED. SLIDING SCALE INSULIN ADMINISTERED, PATIENT TOLERATED WELL. PATIENT DENEIS CONCERNS AT THIS TIME. IV FLUID INFUSING WITHOUT DIFFICULTY. PATIENT CALL LIGHT AND PERSONAL BELONGINGS IN REACH. PATIENT DENIES CONCERNS AT THIS TIME.
--- NOTE | 2025-02-15 12:40 | NUR ---
PATIENT IN BED, EYES OPEN, CHEST RISE EVEN AND UNLABORED. PATIENT HAS FINISHED LUNCH. PATIENT DENIES CONCERNS AT THIS TIME. CALL LIGHT AND PERSONAL BELONGINGS IN REACH OF PATIENT. IV FLUID INFUSING WITHOUT DIFFICULTY.
--- NOTE | 2025-02-15 13:50 | NUR ---
PATIENT IN BED AT THIS TIME. INFORMATION SECURITY ANALYST CHARTED VITALS AND I&O'S. PATIENT WANTS BEDBATH AT 1430. CALL LIGHT WITHIN REACH, NO FURTHER NEEDS.
[2025-02-15] MEDS ORDERED: OXYCODONE HCL 5 MG TAB PO PRN (14:00)
[2025-02-15] MEDS ORDERED: ALBUTEROL/IPRATROPIUM 3 ML NEB INH PRN (14:30)
--- NOTE | 2025-02-15 14:39 | NUR ---
PT REQUESTING SOMETHING FOR PAIN 02/04 TO BACK, WOULD LIKE PAIN TO BE MANAGED AT 3/10, WHICH SHE STATES IS ACHIEVABLE AT HOME. MEDS GIVEN - SEE MAR. PT DENIES ANY OTHER NEEDS AT THIS TIME, IV FLUIDS INFUSING. FRIEND CALLED ON THE PHONE WHILE THIS RN IN THE ROOM, LEFT WHILE PT TALKING TO FRIEND. ALL PT CARE NEEDS MET, CALL LIGHT WITHIN REACH.
--- NOTE | 2025-02-15 14:55 | NUR ---
PATIENT IN BED WITH HOB RAISED, EYES OPEN, CHEST RISE EVEN AND UNALBORED. CALL LIGHT AND PERSONAL BELONGINGS IN REACH OF PATIENT.
[2025-02-15] MEDS ORDERED: ROPINIROLE HCL 1 MG TAB PO SCH (15:00)
--- NOTE | 2025-02-15 15:06 | NUR ---
PATIENT IN BED WITH HOB RAISED, EYES OPEN, CHEST RISE EVEN AND UNLABORED. FAMILY AT BEDSIDE WITH DOUGHNUTS. CALL LIGHT AND PERSONAL BELONGINGS IN REACH. NO APPARENT NEEDS NOTED AT THIS TIME.
--- NOTE | 2025-02-15 16:09 | NUR ---
PATIENT IN BED WITH HOB RAISED, EYES OPEN, CHEST RISE EVEN AND UNLABORED. FAMILY AT BEDSIDE. PATIENT AND FAMILY DENY CONCERNS AT THIS TIME. CALL LIGHT AND PERSONAL BELONGINGS IN REACH OF PATIENT.
--- NOTE | 2025-02-15 16:34 | NUR ---
NUTRITION CONSULT FOR STAGE 2 PRESSURE INJURIES, ONE TO L BUTTOCK AND TO R LOWER LEG. PATIENT IS ON A 60 GM CONS CARB DIET WITH A GOOD APPETTITE, EATING 80% OF BREAKFAST AND 90% OF LUNCH. CHART NOTES INDICATE PATIENT'S VISITORS BROUGHT IN DONUTS THIS AFTERNOON. PATIENT'S A1C WAS 7.3% ON 02/15/25. SHE DOES NOT TAKE INSULIN AT [facility] WHERE SHE IS FROM. SHE PREFERS [facility] MILK WHICH WE HAVE. BMI IS 47.1 (OBESE CLASS III). ESTIMATED CALORIE NEEDS: [id number] (30-35 LUZ ELENA/KG IBW OF 140 LBS OR 63.6 KG) ESTIMATED PROTEIN NEEDS: 76-127 GM (1.2-2.0 GM/KG IBW) NUTRITION GOAL: PATIENT TO CONSUME 80-100% OF MEALS. MONITOR PO INTAKE AND NEED FOR ONS TO PROVIDE ADDITIONAL CALORIES AND PROTEIN. PATIENT IS AT MODERATE NUTRITION RISK AT THIS TIME. RD WILL FOLLOW UP WITHIN 7 DAYS.
[2025-02-15] MEDS ORDERED: PREGABALIN 75 MG CAP PO SCH (17:00)
--- NOTE | 2025-02-15 17:17 | NUR ---
PATIENT IN BED AT THIS TIME. THIS GOLD LEAF LAYER, INDIRA LÓPEZ AND INDIRA POTTER DID COMPLETE BEDBATH, LINEN CHANGE, AND JUANA CARE IN PATIENTS ROOM. NEW GOWN, NEW CHUX, NEW BRIEF, AND SHAMPOO CAP WERE GIVEN. CALL LIGHT WITHIN REACH, NO FURTHER NEEDS AT THIS TIME.
--- NOTE | 2025-02-15 17:21 | NUR ---
PATIENT IN BED WITH HOB RAISED, EYES OPEN, CHEAT RISE EVEN AND UNLABORED. PATIENT WITH 1 XL BM. JUANA CARE, BED BATH, BED CHANGE, AND REPOSITIONING COMPLETED. WAFFLE MAT PLACED. HAIR CLEANED WITH SHOWER CAP, ASSISTED PATIENT TO BRUSH HAIR. ALEVEN REPLACED ON BUTTOCKS.
--- NOTE | 2025-02-15 17:33 | NUR ---
PATIENT OFF FLOOR WITH RADIOLOGY AT THIS TIME.
--- NOTE | 2025-02-15 17:58 | NUR ---
PATIENT BACK IN ROOM. PATIENT IN BED, HOB RAISED, EYES OPEN, CHEST RISE EVEN AND UNLABORED. IV FLUID INFUSING WITHOUT DIFFICULTY. PATIENT SITTING UP WITH DINNER. PATIENT CALL LIGHT AND PERSONAL BELONGINGS IN REACH. SCHEDULED MEDICATIONS ADMINISTERED.
--- NOTE | 2025-02-15 18:52 | NUR ---
PATIENT IN BED AT THIS TIME. PAPER PROCESSING MACHINE HELPER CHARTED VITALS AND I&O'S. CALL LIGHT WITHIN REACH, NO FURTHER NEEDS AT THIS TIME.
--- NOTE | 2025-02-15 19:28 | NUR ---
REPORT RECEIVED FROM DAY SHIFT RN. PATIENT RESTING IN BED ON BACK WITH EYES CLOSED. RESPIRATIONS EVEN AND UNLABORED. CALL LIGHT IN REACH.
--- NOTE | 2025-02-15 19:40 | NUR ---
PATIENT RESTING IN BED. PATIENT REPOSITIONED IN BED WITH PILLOWS PLACED UNDER BILAT HIPS. BREIF C/D/I WITH PUREWICK IN PLACE. BED BATH COMPLETED. DESENEX POWDER PLACED UNDER BILAT BREASTS AND PANNUS. PATIENT DENIES FURTHER NEEDS AT THIS TIME. CALL LIGHT IN REACH.
[2025-02-15] MEDS ORDERED: ALBUTEROL/IPRATROPIUM 3 ML NEB INH SCH (20:00)
[2025-02-15] MEDS ORDERED: BUDESONIDE 0.5 MG/2 ML VIAL INH SCH (20:00)
--- NOTE | 2025-02-15 20:30 | NUR ---
PATIENT RESTING IN BED. VS AND I&Os OBTAINED AND RECORDED. SCHEDULED AND PRN MEDICATIONS ADMINISTERED. PATIENT DENIES FURTHER NEEDS AT THIS TIME. CALL LIGHT IN REACH.
[2025-02-15] MEDS ORDERED: MICONAZOLE NITRATE 1 EA BTL TOP SCH (21:00)
[2025-02-15] MEDS ORDERED: TRAZODONE HCL 100 MG TAB PO SCH (21:00)
[2025-02-15] MEDS ORDERED: DULOXETINE HCL 60 MG CAP PO SCH (21:00)
--- NOTE | 2025-02-15 21:49 | NUR ---
2110 - BS READING OF 86. PATIENT EATING A DONUT AT THIS TIME. 2134 - BS READING OF 105. 2139 - MD GATES ON THE FLOOR. THIS RN UPDATED MD ON PATIENT BS. MD GATES GAVE VERBAL ORDER TO START PATIENT ON D5W @ 100 MLS/HR. ORDER VERIFIED USING REPEAT BACK METHOD.
--- NOTE | 2025-02-15 21:56 | NUR ---
THE PT'S PUREWICK WAS NOT PICKING UP URINE. THIS NEMATOLOGIST CHANGED THE PT'S BED AND PERFORMED JUANA CARE AND DIAPER CARE ON THE PT. PT REPORTED NO PAIN WITH THIS CHANGING. I ALSO CHANGED THE PT'S LINENS DUE TO FOOD ON THE TOP BLANKET AND SHEET. GOT PT FRESH ICE WATER AND RESTOCKED HER CLOSET FOR PADS AND DIAPERS. CALL LIGHT WITHIN REACH AND PT GOT NEW PUREWICK WELL. CHANGED CLOCK FOR PUREWICK REPLACEMENT.
--- NOTE | 2025-02-15 22:10 | NUR ---
PATIENT RESTING IN BED. SCHEDULED MEDICATION ADMINISTERED. PATIENT REPOSITIONED IN BED. PATIENT DENIES FURTHER NEEDS AT THIS TIME. CALL LIGHT IN REACH.
--- NOTE | 2025-02-15 23:53 | NUR ---
PATIENT RESTING IN BED. NEW BAG IV FLUID INFUSING PER ORDER. PATIENT REPOSITIONED IN BED WITH PILLOW REMOVED FROM UNDER LEFT SIDE. PATIENT DENIES FURTHER NEEDS. CALL LIGHT IN REACH.
[2025-02-16] VITALS (10 sets, daily range): BP systolic 112–131; BP diastolic 61–80
--- NOTE | 2025-02-16 01:59 | NUR ---
PATIENT IS LAYING IN BED. BLOOD SUGAR WAS 230. CALL LIGHT IS WITHIN REACH AND NO FURTHER NEEDS AT THIS TIME.
--- NOTE | 2025-02-16 02:20 | NUR ---
PATIENT RESTING IN BED. PATIENT REPORTS 6/10 LOW BACK AND HEADACHE PAIN. PRN PAIN MEDICATION ADMINISTERED PER PATIENT REQUEST. PATIENT HAS NO FURTHER NEEDS AT THIS TIME. PATIENT REPOSITIONED IN BED. CALL LIGHT IN REACH.
--- NOTE | 2025-02-16 04:32 | NUR ---
ROUNDING ON PATIENT. PATIENT 0200 PRN BS CHECK ELEVATED. NEW BAG NS @ 125 MLS/HR INFUSING. D5W @ 100 MLS/HR STOPPED AT THIS TIME. PATIENT RESTING IN BED WITH EYES CLOSED. RESPIRATIONS EVEN AND UNLABORED. CALL LIGHT IN REACH.
[2025-02-16 05:48] LABS: BASOPHILS 0.7 % (0.1-1.2); EOSINOPHILS 3.6 % (0.7-5.8); LYMPHOCYTES 17.8 % (19.3-51.7); MCH 25.0 PG (25.6-32.2); MCHC 29.8 g/dL (32.2-35.5); MCV 83.8 fL (79.4-94.8); MONOCYTES 10.1 % (4.7-12.5); NEUTROPHILS 67.0 % (34.0-71.1); RBC 3.28 M/uL (3.93-5.22)
[2025-02-16] MEDS ORDERED: LEVOTHYROXINE SODIUM 175 MCG TAB PO SCH (06:00)
--- NOTE | 2025-02-16 06:07 | NUR ---
PATIENT REPOSITIONED IN BED WITH PILLOES PLACED UNDER RIGHT SIDE. SCHEDULED MEDICATIONS ADMINISTERED. PATIENT DENIES FURTHER NEEDS. CALL LIGHT IN REACH.
[2025-02-16 06:09] LABS: AST (SGOT) 4.0 U/L (15-37); GLOMERULAR FILTRATION RATE,EST 19.0 mL/min (>60); PROTEIN, TOTAL 6.3 g/dL (6.4-8.2); UREA NITROGEN 36.0 mg/dL (7-18)
[2025-02-16 06:10] LABS: ALT (SGPT) 5.0 U/L (14-59)
--- NOTE | 2025-02-16 07:04 | NUR ---
PT RESTING IN BED WITH EYES CLOSED AND RESPIRATIONS EVEN AND UNLABORED. CALL LIGHT WITHIN REACH. REPORT RECIEVED FORM ZAN JACOBSON.
--- NOTE | 2025-02-16 08:27 | NUR ---
PT ASSESSMENT COMPLETE. PT ASSISTED IN REPOSITIONING IN BED TO EAT BREAKFAST. PT C/O SLIGHT SOB, BUT STATES "IT'S WAY BETTER TODAY" O2 SAT 96% ON RA. PT HAS EXP WHZ TO LOWER LOBES BILATERALLY. CALL LIGHT WITHIN REACH, AND NO OTHER NEEDS AT THIS TIME.
--- NOTE | 2025-02-16 09:42 | NUR ---
INTO SEE PATIENT. LET HER KNOW THAT UPDATES HAVE BEEN SENT TO [facility]. NO FUTHER CM NEEDS AT THIS TIME.
--- NOTE | 2025-02-16 09:52 | NUR ---
PATIENT IN BED AT THIS TIME. SKOOG MACHINE OPERATOR CHARTED VITALS AND I&O'S. CALL LIGHT WITHIN REACH, NO FURTHER NEEDS AT THIS TIME.
--- NOTE | 2025-02-16 10:11 | NUR ---
PT RESTING IN BED, PT STATES SHE IS TIRED THIS MORNING. PT STATES SHE IS HAVING LOWER BACK PAIN, MED GIVEN REQUESTED. NO OTHER REQUESTS AT THIS TIME. CALL LIGHT WITHIN REACH.
--- NOTE | 2025-02-16 10:28 | NUR ---
DISCHARGE REVIEW: CONTINED NEED FOR IV FLUIDS, MONITORING LABS, IV ANTIBIOTICS, RT TREATMENTS PLANS TO RETURN TO [facility] WHEN MEDICALLY READY. ADD: 02/17/25-02/18/25
--- NOTE | 2025-02-16 11:24 | NUR ---
VISITED DURING SPIRITUAL CARE ROUNDS. PT APPEARED TO BE SLEEPING. DID NOT DISTURB. PROVIDED PRAYER.
--- NOTE | 2025-02-16 11:39 | NUR ---
PATIENT IN BED AT THIS TIME. MELBA AGUILAR CHARTED BLOODSUGAR. CALL LIGHT WITHIN REACH, NO FURTHER NEEDS.
--- NOTE | 2025-02-16 12:20 | NUR ---
PT REPOSITIONED TO SIT UP IN BED TO EAT LUNCH. PT STATES PAIN HAS DECREASED TO 3/10 AND IS TOLERABLE AT THIS TIME. NO OTHER NEEDS NOTIFIED AT THIS TIME. CALL LIGHT WITHIN REACH.
--- NOTE | 2025-02-16 14:30 | NUR ---
PT RESTING IN BED WATCHING TV. PT REPOSITIONED AT THIS TIME. CALL LIGHT WITHIN REACH.
[2025-02-16] MEDS ORDERED: CALCIUM CARBONATE 500 MG CHEW PO PRN (16:30)
--- NOTE | 2025-02-16 17:13 | NUR ---
LE 1625: THIS RN IS IN THE ROOM FOR A WOUND CONSULT OF THE RIGHT AND LEFT BUTTOCK AND THE RIGHT LATERAL/POSTERIOR ANKLE. THE RIGHT LATERAL/POSTERIOR ANKLE HAD DRY FLAKY SKIN THAT EASILY CAME OFF WITH CLEANING, REVEALING EPITHELIALIZED SKIN. THE LEFT AND RIGHT BUTTOCK WOUNDS WERE THOUGHT TO BE STAGE II PRESSURE INJURIES BASED ON VERBAL COMMUNICATION FROM CARRIER LOADER. UPON ASSESSMENT AND PT INTERVIEW DONE BY THIS RN, THE WOUNDS ARE ACTUALLY A COMBINATION OF EXCORIATION AND SHEARING. THE PT IS INCONTINENT AT ALL TIMES AND PRIMARILY WHEELCHAIR BOUND. SHE REPORTS THAT SHE HAS TO SCOOT HERSELF TO THE EDGE OF HER WHEELCHAIR TO STAND UP OR TRANSFER. THE COMBINATION OF BEING INCONTINENT AND SCOOTING WILL CAUSE SHEARING/EXCORIATION. ALSO, THE IMMEDIATELY PERIWOUND SKIN WAS BLANCHABLE AROUND THE WOUNDS FURTHER EXCLUDING THEM PRESSURE INJURIES. THE LEFT BUTTOCK WOUND IS CLEANSED WITH WOUND CLEANSER AND DRY GAUZE. THE WOUND IS MEASURED AND PHOTOGRAPHED - SEE COMPLEX WOUND ASSESSMENT FOR DETAILS. CAVILON ADVANCED IS APPLIED TO THE BUTTOCK/PERIWOUND SKIN. MEDIHONEY IS APPLIED TO THE WOUND BED, THEN COVERED WITH AN ADHESIVE FOAM. THE RIGHT BUTTOCK WOUND IS CLEANSED WITH WOUND CLEANSER AND DRY GAUZE. THE WOUND IS MEASURED AND PHOTOGRAPHED - SEE COMPLEX WOUND ASSESSMENT FOR DETAILS. CAVILON ADVANCED IS APPLIED TO THE BUTTOCK/PERIWOUND SKIN. MEDIHONEY IS APPLIED TO THE WOUND BED, THEN COVERED WITH AN ADHESIVE FOAM. PT IS EDUCATION IS DONE DURING THE ASSESSMENT AND DRESSING APPLICATION. LE 1650: WOUND CONSULT IS COMPLETE.
--- NOTE | 2025-02-16 17:29 | NUR ---
PT SITTING UP IN BED EATING DINNER AND WATCHING TV. CALL LIGHT WITHIN REACH, NO REQUESTS AT THIS TIME.
--- NOTE | 2025-02-16 18:44 | NUR ---
PT RESTING IN BED WITH EYES CLOSED AND RESPIRATIONS EVEN AND UNLABORED. CALL LIGHT WITHIN REACH.
--- NOTE | 2025-02-16 19:23 | NUR ---
REPORT RECEIVED FROM DAY SHIFT RN. PATIENT RESTING IN BED. DENIES NEEDS AT THIS TIME. CALL LIGHT IN REACH.
--- NOTE | 2025-02-16 20:21 | NUR ---
TRAIN GATE ATTENDANT OBTAINED VITALS AND I&O. PT STATES NO NEEDS AT THIS TIME. CALL LIGHT WITHIN REACH.
--- NOTE | 2025-02-16 20:52 | NUR ---
PATIENT RESTING IN BED. BS OBTAINED AND RECORDED. ASSESSMENT COMPLETE. SCHEDULED MEDICATION ADMINISTERED. LEFT AC IV INFILTRATED. LEFT AC IV DCd WNL WITH TIP INTACT. ORANGE JUICE PROVIDED. PATIENT DENIES FURTHER NEEDS AT THIS TIME. RT REMAINS IN ROOM.
[2025-02-16] MEDS ORDERED: PANTOPRAZOLE SODIUM 40 MG TABEC PO SCH (21:00)
--- NOTE | 2025-02-16 21:35 | NUR ---
THIS FLUOROSCOPE OPERATOR AND INDIRA ZULUAGA REPOSITIONED PT WITH PILLOWS UNDER BOTH HIPS. PT BOOSTED IN BED. RN APPLIED POWDER UNDER BREASTS AND PANNUS. PT STATES NO FURTHER NEEDS AT THIS TIME. CALL LIGHT WITHIN REACH.
--- NOTE | 2025-02-16 22:22 | NUR ---
PATIENT RESTING IN BED. SCHEDULED MEDICATION ADMINISTERED. PATIENT DENIES FURTHER NEEDS. CALL LIGHT IN REACH.
--- NOTE | 2025-02-16 22:59 | EKG ---
[facility] [address] [facility] [place] [address] Signed Normal sinus rhythm Low voltage QRS Borderline ECG When compared with ECG of 12-MAR-2024 09:38, No significant change was found Confirmed by Caridad Gates MD () on 02/16/2025 10:59:15 PM Electronically Signed By: CARIDAD GATES MD 02/16/25 2259 PATIENT NAME: PHOENIX MISHRA Electrocardiogram DATE OF : 69 PHYSICIAN: CARIDAD GATES MD REPORT #: [id number] REPORT IS CONFIDENTIAL AND NOT TO BE RELEASED WITHOUT AUTHORIZATION
--- NOTE | 2025-02-16 23:01 | NUR ---
SCHEDULED IV ABX INFUSING PER ORDER. PATIENT DENIES FURTHER NEEDS. CALL LIGHT IN REACH.
--- NOTE | 2025-02-16 23:22 | NUR ---
PATIENT GIVEN TYLENOL FOR PAIN IN HER LEFT LEG. PATIENT STATES THIS HAS HAPPENED BEFORE BUT NOT THIS BAD. PATIENT BECAME NAUSEATED, ZOFRAN ALSO GIVEN. PATIENT IS CRYING IN BED. PATIENTS PRIMARY NURSE ADVISED.
--- NOTE | 2025-02-16 23:40 | NUR ---
THIS RN TO ROOM. ICE PACK PLACED ON STUMP WITH LINEN BARRIER IN PLACE PER PATIENT REQUEST. PATIENT STATES SHE IS OK WITH LETTING THE TYLENOL TRY AND TAKE WAY HER STUMP PAIN FOR NOW. THIS RN EDUCATED PATIENT TO CALL IF SHE NEEDS ANYTHING. NO FURTHER NEEDS. CALL LIGHT IN REACH. NO WOUND NOTED ON STUMP. L STUMP SKIN APPEARS WNL.
[2025-02-17] VITALS (9 sets, daily range): BP systolic 110–134; BP diastolic 62–82
--- NOTE | 2025-02-17 00:21 | NUR ---
PATIENT HAVING 8/10 STUMP PAIN. MD GATES UPDATED BY TELEPHONE. NEW ORDERS RECEIVED. VERIFIED USING REPEAT BACK METHOD.
[2025-02-17] MEDS ORDERED: PROCHLORPERAZINE EDISYLATE 10 MG/2 ML VIAL IV PRN (00:30)
[2025-02-17] MEDS ORDERED: CYCLOBENZAPRINE HCL 10 MG TAB PO PRN (00:30)
--- NOTE | 2025-02-17 00:49 | NUR ---
PT C/O NAUSEA AND NERVE PAIN TO LEFT STUMP. PT TAKES FLEXERIL AT HOME FOR NERVE PAIN. PT MEDICATED WITH 5MG COMPAZINE AND 5MG FLEXERIL. PT INSTRUCTED TO CALL FOR ASSISTANCE, CALL BOX IN REACH, BED IN LOW POSITION AND LOCKED. SR UP X3
--- NOTE | 2025-02-17 01:00 | NUR ---
PATIENT RESTING IN BED. PRN BS OBTAINED AND RECORDED. PATIENT REPOSITIONED IN BED. NO FURTHER NEEDS AT THIS TIME. CALL LIGHT IN REACH.
--- NOTE | 2025-02-17 02:30 | NUR ---
PATIENT RESTING IN BED. REPORTS 7/10 L STUMP PAIN. PRN PAIN MEDICATION ADMINISTERED. PATIENT INCONTINENT OF STOOL. NEW NISSA, BREIF, AND PUREWICK PLACED AFTER PERICARE PROVIDED. PATIENT REPOSITIONED IN BED WITH PILLOWS PLACED UNDER BILAT HIPS AND PILLOW PLACED UNDER RIGHT LEG. PATIENT DENIES FURTHER NEEDS. CALL LIGHT IN REACH.
--- NOTE | 2025-02-17 03:33 | NUR ---
PATIENT RESTING IN BED WITH EYES CLOSED. RESPIRATIONS EVEN AND UNLABORED. CALL LIGHT IN REACH.
--- NOTE | 2025-02-17 05:37 | NUR ---
PATIENT RESTING IN BED. DENIES NEEDS AT THIS TIME. CALL LIGHT IN REACH.
[2025-02-17 05:39] LABS: BASOPHILS 0.6 % (0.1-1.2); EOSINOPHILS 5.2 % (0.7-5.8); LYMPHOCYTES 19.7 % (19.3-51.7); MCH 24.7 PG (25.6-32.2); MCHC 29.3 g/dL (32.2-35.5); MCV 84.1 fL (79.4-94.8); MONOCYTES 10.1 % (4.7-12.5); NEUTROPHILS 63.5 % (34.0-71.1); RBC 3.28 M/uL (3.93-5.22)
[2025-02-17 05:59] LABS: ALT (SGPT) 8.0 U/L (14-59); AST (SGOT) 7.0 U/L (15-37); GLOMERULAR FILTRATION RATE,EST 20.0 mL/min (>60); PROTEIN, TOTAL 6.3 g/dL (6.4-8.2); UREA NITROGEN 35.0 mg/dL (7-18)
--- NOTE | 2025-02-17 06:39 | NUR ---
PATIENT RESTING IN BED. SCHEDULED MEDICATION ADMINISTERED. PATENT DENIES FURTHER NEEDS. CALL LIGHT IN REACH.
--- NOTE | 2025-02-17 07:43 | NUR ---
MORNING REPORT RECIEVED FROM INDIRA ZULUAGA. PT SITTING UP IN BED WITH EYES CLOSED CHEST RISE EQUAL BILAT, PT APPEARS TO BE COMFORTABLE AT THIS TIME WITH CALL LIGHT IN REACH IF NEEDED.
--- NOTE | 2025-02-17 10:43 | NUR ---
PT ASLEEP IN BED WITH HER HEAD UP AND THE TV ON. PT HAS ICE WATER AND THE CALL LIGHT NEXT TO HER HAND ON THE BED. PT REPORTED NEEDING NOTHING MORE AT THIS TIME.
--- NOTE | 2025-02-17 10:46 | NUR ---
PT VERY SLEEPY, HAD DIFFICULTY STAYING AWAKE WHILE TAKING VITALS AND CHECKING DIAPER.
--- NOTE | 2025-02-17 11:15 | NUR ---
PT SITTING UP IN BED AWAKE AND ALERT, PT DENIES PAIN AT THIS TIME AND HAS CALL LIGHT IN REACH IF NEEDED.
[2025-02-17] MEDS ORDERED: MAGNESIUM SULFATE 2 GM/50 ML BAG IV SCH (11:30)
--- NOTE | 2025-02-17 13:10 | NUR ---
PT LAYING IN BED, 30% SITTING. TV ON, CALL LIGHT WITHIN REACH AND FRESH ICE WATER WITHIN REACH. PT REPORTS NEEDING NOTHING MORE AT THIS TIME.
--- NOTE | 2025-02-17 14:52 | NUR ---
PT SITTING UP IN BED, PT IV WAS PAINFUL AND LEAKING, PT FLUIDS CLAMPED AND BARBARA RN NOTIFIED THAT A US GUIDED IV IS NEEDED. PT AGREEABLE AND HAS CALL LIGHT IN REACH.
[2025-02-17] MEDS ORDERED: SODIUM CHLORIDE 0.9% 1,000 ML IV SCH (16:15)
--- NOTE | 2025-02-17 16:39 | NUR ---
PT SITTING UP IN BED AT THIS TIME, PT DENIES PAIN AND HAS NO CURRENT CONCERNS. PT HAS CALL LIGHT IN REACH AT THIS TIME WITH IV BOLUS IN PLACE. CALL LIGHT IN REACH.
--- NOTE | 2025-02-17 17:41 | NUR ---
PT SITTING UP IN BED, PT HAS NO CURRENT CONCERNS AT THIS TIME, PT DENIES ANY CURRENT PAIN AND HAS CALL LIGHT IN REACH.
--- NOTE | 2025-02-17 18:22 | NUR ---
PT IS SITTING UP IN BED - 35% ANGLE APPROX. PT WATCHING TV. CHANGED PT, CLEANED UP ROOM AND EMPTIED PUREWICK CONTAINER. PT HAS LEMONADE WITH ICE IN ONE CUP AND WATER IN ANOTHER. CALL LIGHT WITHIN REACH AND PT REQUESTED A WARM BLANKET. PT NEEDS NOTHING MORE AT THIS TIME.
--- NOTE | 2025-02-17 18:25 | NUR ---
PT HAD A PARTIAL BED BATH. GOT WARM BLANKET REQUESTED AND PUT LOTION ON PT'S BACK.
--- NOTE | 2025-02-17 19:15 | NUR ---
RECEIVED REPORT ON PT. CALL LIGHT WITH IN REACH. PT HAS NO NEEDS AT THIS TIME.
--- NOTE | 2025-02-17 20:16 | NUR ---
PATIENT IS LAYING IN BED. VITAL SIGNS AND I&OS WERE DONE. PATIENT DECLINED TO BRUSH TETTH STATED SHE WOULD DO IT IN THE MORNING. PATIENTS CALL LIGHT IS WITHIN REACH AND NO FURTHER NEEDS AT THIS TIME.
--- NOTE | 2025-02-17 22:02 | NUR ---
PT ASSESSMENT DONE. BED IN LOW POSITION, CALL LIGHT WITH IN REACH. PT HAS NO FURTHER NEEDS AT THIS TIME.
--- NOTE | 2025-02-17 22:26 | NUR ---
PATIENT LAYING IN BED. PATIENTS BRIEF AND PURWICK WAS CHANGED BY THIS CONSTRUCTION DRIVER AND RN PADMA. PATIENTS CALL LIGHT IS WITHIN REACH AND NO FURTHER NEEDS AT THIS TIME.
[2025-02-18] VITALS (9 sets, daily range): BP systolic 111–137; BP diastolic 60–81
--- NOTE | 2025-02-18 00:30 | NUR ---
PT RESTING EYES CLOSED. CALL LIGHT AND PERSONAL BELONGINGS WITH IN REACH.
--- NOTE | 2025-02-18 02:15 | NUR ---
IN TO CHECK ON PT, PT AWAKES AND REPORTS THAT SOMETHING FEELS WET. PT HAD KNOCKED OVER HER JUICE INTO HER BED. CLEANED PT UP WITH HELP FROM INDIRA ROUSE. CHANGED SHEET, CHUCKS PAD, AND GOWN. RETURNED BED TO LOW POSITION, CALL LIGHT AND BELONGINGS WITH IN REACH. PT HAS NO FUTHER NEEDS AT THIS TIME.
--- NOTE | 2025-02-18 04:17 | NUR ---
PT RESTING EYES CLOSED. BREATHING EVEN. CALL LIGHT WITH IN REACH.
--- NOTE | 2025-02-18 05:12 | NUR ---
PATIENT IN BED AT THIS TIME. THIS GEAR CUTTING MACHINE SET UP OPERATOR AND GEAR CUTTING MACHINE SET UP OPERATOR NITIN CHARTED VITALS AND I&O'S. BOTH GEAR CUTTING MACHINE SET UP OPERATOR CHANGED PUREWICK AT 0513. NO FURTHER NEEDS AT THIS TIME.
--- NOTE | 2025-02-18 05:51 | NUR ---
PT REQUESTING PAIN MEDICATION. DISCUSSED TOO EARLY FOR OXYCODONE. PT WOULD LIKE TYLENOL. PT GIVEN TYLENOL 650MG FOR PAIN 7/10 IN HANDS AND LOWER BACK. ASSESSMENT DONE. WATER REFILLED. CALL LIGHT WITH IN REACH. PT DENIES FURTHER NEEDS AT THIS TIME.
[2025-02-18 05:55] LABS: BASOPHILS 0.6 % (0.1-1.2); EOSINOPHILS 8.3 % (0.7-5.8); LYMPHOCYTES 25.3 % (19.3-51.7); MCH 24.9 PG (25.6-32.2); MCHC 29.6 g/dL (32.2-35.5); MCV 84.1 fL (79.4-94.8); MONOCYTES 14.1 % (4.7-12.5); NEUTROPHILS 50.4 % (34.0-71.1); RBC 3.21 M/uL (3.93-5.22)
[2025-02-18 06:21] LABS: ALT (SGPT) 6.0 U/L (14-59); AST (SGOT) 11.0 U/L (15-37); GLOMERULAR FILTRATION RATE,EST 21.0 mL/min (>60); PROTEIN, TOTAL 6.0 g/dL (6.4-8.2); UREA NITROGEN 31.0 mg/dL (7-18)
--- NOTE | 2025-02-18 07:03 | NUR ---
Pt report received from RNs Iza/Sia. Pt is resting supine in bed, eyes closed, breathing is regular, even, and non-labored. White board updated. Side rails up x4. Call light in reach.
--- NOTE | 2025-02-18 08:13 | NUR ---
GOT PT FRESH ICE WATER AND CLEANED ROOM. TRASH REMOVED. CALL LIGHT WITH PT. PT ASLEEP ON AND OFF IN BED WITH HEAD RAISED APPROXIMATELY 20%. PT REPORTED NEEDING NOTHING MORE AT THIS TIME.
--- NOTE | 2025-02-18 09:26 | NUR ---
PT IN BED WITH HEAD OF HEAD UP. PT AWAKE AND ALERT. WATCHING TV. CHECKED DIAPER, DRY TO THE TOUCH, PT WEARING PUREWICK - FUNCTIONING. PT HAS ICE WATER AND A COUPLE OTHER CUPS WITH LIQUID. PT REPORTED NEEDING NOTHING MORE AT THIS TIME. CALL LIGHT WITHIN REACH.
--- NOTE | 2025-02-18 11:05 | NUR ---
In with pt for IV med administration per emar. Pt is A&O. When offered, pt states she would like to have a shower today once her ABX have finished infusing. Pt denies further needs at this time.
--- NOTE | 2025-02-18 13:33 | NUR ---
PT SITTING UP IN BED FOLLOWING LUNCH. PT IS ALERT AND AWAKE. CALL LIGHT IS WITHIN REACH. THE KITCHEN BROUGHT PT UP A CRYSTAL LIGHT LEMONADE MIX, SO SHE HAS THAT WITH FRESH ICE. PT ALSO HAS A GLASS OF FRESH ICE WATER TO DRINK. PT REPORTS NEEDING NOTHING MORE AT THIS TIME.
--- NOTE | 2025-02-18 14:15 | NUR ---
In with pt for medication administration per emar. IV S/L for shower.
--- NOTE | 2025-02-18 14:58 | NUR ---
In with pt and aides in response to call light for assistance. They had attempted to assist the pt to transfer from the bed to the shower chair at bedside but the pt became painful when attempting to stand on her right leg (she has a Left BKA), stating it hurts in her ankle and her right leg is very weak. Pt then began to have a BM. Aides were in the process of cleaning up the pt when I entered. Sling placed underneath the pt with her assistance (she rolled and pushed as well as she could with her right leg) and the pt was hoyered into the shower chair then wheeled into the shower. Aidrodney Rose in with pt. linen change done at this time.
--- NOTE | 2025-02-18 15:48 | NUR ---
2 Person armani lift pt from shower chair back into bed, pt rolled from side to side for bedding and armani sling to be removed from beneath her. Fresh brief applied, elvin area powdered and dry, minimal redness noted. Pt requesting a breathing tx at this time. PC to RT Bruce to advise him of her request. Side rails up x4, call light in reach.
[2025-02-18] MEDS ORDERED: SODIUM CHLORIDE 0.9% 1,000 ML IV SCH (16:45)
--- NOTE | 2025-02-18 18:54 | NUR ---
THIS RN IN THE ROOM TO HELP PRIMARY RN WITH MED PASS. IV BOLUS ATTEMPTED TO BE STARTED, IV WOULD NOT FLUSH X2 ATTEMPTS, ADJUSTED AND PULLED BACK. PRIMARY RN NOTIFIED, PT HAD US START LASTNIGHT. INSULIN/MEDS GIVEN - SEE AUG. PT BEING CHANGED BY PNEUMATIC TESTER STAFF AT THIS TIME. PT C/O BURNING WITH URINATION THAT JUST STARTED A COUPLE HOURS, CURRENTLY ON IV ABX, PRIMARY RN NOTIFIED OF NEW SYMPTOMS WELL. ALL PT CARE NEEDS MET AT THIS TIME. C
--- NOTE | 2025-02-18 19:14 | NUR ---
PT HAD A BOWEL MOVEMENT AND URINATED WHEN WE LIFTED HER ONTO THE SHOWER CHAIR FROM HER BED. THE URINATION WAS NOT MEASURED BECAUSE SHE WAS NAKED - HEADED FOR THE SHOWER.
--- NOTE | 2025-02-18 19:19 | NUR ---
PT REPORTING A LOT OF PAIN IN HER CROTCH AREA - I CHANGED HER - REPLACED THE PUREWICK AND THE SKIN AND JUANA AREA IS NOT RED - PT REPORTS PAIN IS IN THE INSIDE. REPORTED PAIN TO NURSE. PT IS IN TEARS DUE TO PAIN - REPORTING FEELING LIKE THERE IS PRESSURE "DOWN THERE" AND "FEELS LIKE BURNING" WHEN SHE URINATES - OR CAN NOT URINATE.
--- NOTE | 2025-02-18 19:34 | NUR ---
RECEIVED REPORT ON PT. PT C/O PAIN WITH URINATION. PT'S URINE APPEARS PINK IN COLOR. PT ALSO REPORTS CONSTANT LOWER BACK PAIN. PT HAS PUREWICK IN PLACE. PT IS LAYING IN BED. DISCUSSED WITH PT WE WOULD NOTIFY THE DOCTOR OF PAIN WITH URINATION. CALL LIGHT WITH IN REACH.
[2025-02-18] MEDS ORDERED: BUDESONIDE 0.5 MG/2 ML VIAL INH SCH (20:00)
[2025-02-18] MEDS ORDERED: PHENAZOPYRIDINE HCL 100 MG TAB PO PRN (20:15)
--- NOTE | 2025-02-18 20:20 | NUR ---
PHONE CALL TO DR. GATES, NOTIFIED HIM OF INCREASED COMPLAINTS OF PAIN WITH URINATION, 10/10 URETHRA PAIN. PT'S URINE PINK IN COLOR, VOIDING QUANITY SUFFICIENT. REQUESTING PYRIDIUM. DOCTOR OKAY WITH THIS AND WILL ADD ORDER.
--- NOTE | 2025-02-18 21:13 | NUR ---
PT REPORTS 10/10 PAIN WITH URINATION AND LOW BACK PAIN. PRN ADMIN PER EMAR. URINE NOTED TO BE CLOUDY AND PINK TINGED. VS AND I&O OBTAINED. NO FURTHER NEEDS. CALL LIGHT IN REACH.
--- NOTE | 2025-02-18 21:58 | NUR ---
PT RESTING IN BED EYES OPEN. PT CONTINUES TO C/O URETHRAL PAIN. ASSESSMENT COMPLETE. NOTIFIED PT SHE IS TOO EARLY FOR HER OXYCODONE. PT OFFERED A SNACK. PT REQUESTING A GRANOLA BAR AND DIET CRANBERRY JUICE. REFILLED WATER. BED RETURNED TO LOW POSITION, CALL LIGHT WITH IN REACH. PT HAS NO NEEDS AT THIS TIME.
--- NOTE | 2025-02-18 22:40 | NUR ---
PATIENT CALLED. CHANGED ATTENDS AND PUREWICK AFTER CLEANED UP. PATIENT HAD SMALL HARD BM. WARM BLANKET PROVIDED. NO FURTHER NEEDS AT THIS TIME.
--- NOTE | 2025-02-18 23:50 | NUR ---
IN WITH PT, PT CONTINUES TO C/O URETHRAL PAIN. DISCUSSED WITH PT, DR. GATES WOULD LIKE TO GET A UA. PT IS WONDERING IF SHE IS DUE FOR TYLENOL. DISCUSSED WITH PT I WOULD REVIEW EMAR AND GET HER SOMETHING FOR PAIN IF DUE. PT AGREEABLE. CALL LIGHT WITH IN REACH.
[2025-02-19] VITALS (10 sets, daily range): BP systolic 108–139; BP diastolic 61–71
--- NOTE | 2025-02-19 01:13 | NUR ---
ADMINISTERED TYLENOL 650MG FOR URETHRAL PAIN 02/04. REPLACED PUREWICK, PROVIDED JUANA CARE, AND COLLECTED URINE SAMPLE. URINE SAMPLE SENT TO LAB. PT RESTING IN BED WATCHING TV. CALL LIGHT WITH IN REACH. PT HAS NO NEEDS AT THIS TIME.
[2025-02-19 01:21] LABS: BLOOD/HGB, URINE LARGE (Negative); KETONE, URINE NEGATIVE (Negative); LEUK ESTERASE, URINE MODERATE (negative); NITRITE, URINE POSITIVE (negative)
[2025-02-19 01:41] LABS: CRYSTALS, URINE NONE SEEN (0-1+); EPITHELIAL CELLS, URINE SQUAMOUS 2+ /lpf (0-1+)
[2025-02-19 01:42] LABS: BACTERIA, URINE 2+ /hpf (negative); CASTS, URINE NONE SEEN \\lpf; REFLEX CULTURE, URINE No (No)
--- NOTE | 2025-02-19 01:45 | NUR ---
PHONE CALL TO DR. GATES TO REPORT CONTINUED PAIN WITH URINATION AND NOW NAUSEA. DR. GATES WILL COME IN AND SEE PT.
[2025-02-19] MEDS ORDERED: HYDROmorphone HCL 1 MG/ML SYR IV PRN (02:15)
[2025-02-19 03:35] LABS: BASOPHILS 0.7 % (0.1-1.2); EOSINOPHILS 7.8 % (0.7-5.8); LYMPHOCYTES 24.5 % (19.3-51.7); MCH 24.7 PG (25.6-32.2); MCHC 29.3 g/dL (32.2-35.5); MCV 84.4 fL (79.4-94.8); MONOCYTES 12.8 % (4.7-12.5); NEUTROPHILS 51.7 % (34.0-71.1); RBC 3.20 M/uL (3.93-5.22)
--- NOTE | 2025-02-19 03:38 | NUR ---
PER DR. GATES'S ORDERS, ADMINISTERED 1MG DILAUDID FOR URETHRAL/ LOWER BACK PAIN. PT WAS TAKEN TO CT FOR CT ABDOMEN AND RETURNED TO ROOM. BLOOD DRAWN AND SENT TO LAB. PT RESTING IN HER BED WATCHING TV. PT GIVEN GRANOLA BAR REQUESTED. CALL LIGHT WITH IN REACH. PT HAS NO FURTHER NEEDS AT THIS TIME.
[2025-02-19 03:51] LABS: ALT (SGPT) 10.0 U/L (14-59); AST (SGOT) 8.0 U/L (15-37); GLOMERULAR FILTRATION RATE,EST 19.0 mL/min (>60); PROTEIN, TOTAL 6.1 g/dL (6.4-8.2); UREA NITROGEN 33.0 mg/dL (7-18)
--- NOTE | 2025-02-19 04:01 | NUR ---
DR. GATES NOTIFIED OF CT AND LAB RESULTS. PER DR. GATES HE WILL CHANGE ANTIBIOTICS AND REVIEW FURTHER.
--- NOTE | 2025-02-19 05:10 | NUR ---
PT RESTING WITH EYES CLOSED. CALL LIGHT WITH IN REACH.
--- NOTE | 2025-02-19 06:20 | NUR ---
ASSESSMENT COMPLETE. ADMINISTERED DILAUDID. PT RESTING IN BED WITH EYES CLOSED. CALL LIGHT WITH IN REACH.
--- NOTE | 2025-02-19 07:22 | NUR ---
MORNING REPORT RECIEVED FROM INDIRA ROUSE. PT LAYING IN BED WITH EYES CLOSED CHEST RISE EQUAL BILAT, PT HAS NO SIGNS OF DISTRESS AT THIS TIME AND HAS CALL LIGHT IN REACH.
--- NOTE | 2025-02-19 07:45 | NUR ---
faxed updates to [facility].
[2025-02-19] MEDS ORDERED: MEROPENEM 1,000 MG in SODIUM CHLORIDE 0.9% 100 ML IV SCH (09:00)
[2025-02-19] MEDS ORDERED: FLUCONAZOLE 200 MG TAB PO SCH (09:00)
--- NOTE | 2025-02-19 09:35 | NUR ---
INTO SEE PATIENT. PATIENT EATING BREAKFAST. LET PATIENT KNOW WE HAVE BEEN KEEPING [place] UPDATED. NO FUTHER NEEDS AT THIS TIME.
[2025-02-19 09:57] LABS: BLOOD/HGB, URINE LARGE (Negative); KETONE, URINE NEGATIVE (Negative); LEUK ESTERASE, URINE LARGE (negative); NITRITE, URINE POSITIVE (negative)
[2025-02-19 10:06] LABS: BACTERIA, URINE RARE /hpf (negative); CASTS, URINE NONE SEEN \\lpf; CRYSTALS, URINE NONE SEEN (0-1+); EPITHELIAL CELLS, URINE SQUAMOUS 1+ /lpf (0-1+); REFLEX CULTURE, URINE Yes (No)
--- NOTE | 2025-02-19 10:11 | NUR ---
PT SITTING UP IN BED, PT WAS COMPLAINING OF PAIN AND WAS GIVEN PRN DILAUDID (SEE EMAR). PT TOLERATED WELL AND URINE WAS COLLECTED VIA STRAIGHT CATH AND SENT TO LAB. PT HAS NO CONCERNS AND CALL LIGHT IN REACH.
--- NOTE | 2025-02-19 11:42 | NUR ---
PT SITTING UP IN BED, PT WAS HAVING TROUBLE USING PHONE, THIS RN DIALED NUMBER AND PT HAS NO OTHER CONCERNS, CALL LIGHT IN REACH.
--- NOTE | 2025-02-19 12:22 | NUR ---
PATIENT IS REPORTING 7/[address] GATES IN TO SEE PATIENT. STAT EKG. VITALS ARE STABLE.
--- NOTE | 2025-02-19 12:31 | NUR ---
DR. GATES REVIEWED PATIENT EKG. PATIENT GIVEN 5MG OXYCODONE AND 5MG FLEXERIL. LAB IN TO DRAW BLOOD.
--- NOTE | 2025-02-19 12:38 | NUR ---
PATIENT GIVEN PRN TUMS WITH LUNCH.
[2025-02-19] MEDS ORDERED: LIDOCAINE 2% VISCOUS 6 ML SYR TOP ONE (12:45)
--- NOTE | 2025-02-19 12:53 | NUR ---
DIET CHANGED TO LOW ACID. DR. GATES IN TO TALK TO PATIENT.
--- NOTE | 2025-02-19 13:19 | NUR ---
PT SITTING UP IN BED, PT HAS NO CURRENT CONCERNS AND MD GATES IN ROOM AND UPDATED PT ON POC, [facility]
--- NOTE | 2025-02-19 13:22 | NUR ---
VISITED DURING SPIRITUAL CARE ROUNDS. PT SHOWING SIGNS OF PAIN, GRIMMACING AND WINCING; CONFIRMED DISCOMFORT WHEN ASKED. SHORT VISIT. FLOOR COVERING LAYER PROVIDED SUPPORTIVE PRESENCE, HOSPITALITY, RITUAL ITEMS, PRAYER, ADVOCATED FOR PT BY INFORMING NURSING STAFF OF DISCOMFORT. PT EXPRESSED GRATITUDE, HOPE.
--- NOTE | 2025-02-19 14:48 | NUR ---
PT SITTING UP IN BED, PT HAS EYES CLOSED CHEST RISE EQUAL BILAT, PT EASILY AWOKEN, PT HAS NO CURRENT CONCERNS AND WANTS TO SHOWER SOON PIE FILLING MIXER IS AWARE, PT HAS CALL LIGHT IN REACH.
--- NOTE | 2025-02-19 15:00 | NUR ---
THE NURSE AND I PANCHO PATIENT TO THE SHOWER CHAIR THE NURSE HELPED ME PUT ROLL HER INTO THE BATHROOM. WASHED HER HAIR AND GAVE HER SHOWER. CHANGED BED LINENS CHANGED. WHEN WE WERE DONE WHEELED HER BACK OUT. BEFORE ASKING FOR HELP PATIENT GOT A PHONE CALL. THE NURSES CAME IN AND HELPED PANCHO HER BACK TO BED. PUT A NEW PUREWICK IN NEW TAPED ATTEND. NEW GOWN.
--- NOTE | 2025-02-19 15:50 | NUR ---
PT IS CURRENTLY BEING BATHED, PT WAS MOVED VIA PANCHO TO SHOWER CHAIR AND TOLERATED WELL, PT HAS DERMATOLOGY PHYSICIAN ASSISTANT CURRENTLY IN ROOM AT THIS TIME.
--- NOTE | 2025-02-19 18:49 | NUR ---
PT LAYING IN BED, PT STATES THE PAIN HAS DECREASED WITH THE PRN DILAUDED THAT WAS GIVEN, PT STATES " THE PAIN COMES BACK FAST". PT TOLD TO CONTACT THIS NURSE IF PAIN INCREASES AGAIN CALL LIGHT IN REACH.
[2025-02-19] MEDS ORDERED: LIDOCAINE HCL 4% 1 EACH PATCH TD SCH (19:16)
--- NOTE | 2025-02-19 19:33 | NUR ---
RECEIVED REPORT ON PT. PT RESTING EYES CLOSED. CALL LIGHT WITH IN REACH.
--- NOTE | 2025-02-19 20:42 | NUR ---
ADMINISTERED DILAUDID 1MG FOR PAIN 8/10 LOCATED IN LOWER BACK AND URETHRAL AREA.
[2025-02-19] MEDS ORDERED: LIDOCAINE PATCH REMOVAL 1 EA TD SCH (21:00)
--- NOTE | 2025-02-19 21:31 | NUR ---
ASSESSMENT COMPLETE. PT RESTING IN BED WATCHING TV. CALL LIGHT AND PERSONAL BELONGINGS WITH IN REACH.
--- NOTE | 2025-02-19 22:55 | NUR ---
ANSWERED CALL LIGHT, PT REQUESTING A PAIN MEDICATION AND A SNACK. ADMINISTERED OXYCODONE 5MG. PT GIVEN SNACK AND ICE FOR HER WATER. CALL LIGHT WITH IN REACH. PT HAS NO FURTHER NEEDS AT THIS TIME.
[2025-02-20] VITALS (10 sets, daily range): BP systolic 101–125; BP diastolic 59–86
--- NOTE | 2025-02-20 01:56 | NUR ---
PT RESTING EYES CLOSED. PULSE OX 96% ON RA. CALL LIGHT WITH IN REACH.
--- NOTE | 2025-02-20 03:13 | NUR ---
PT RESTING EYES CLOSED. CALL LIGHT WITH IN REACH.
--- NOTE | 2025-02-20 04:45 | NUR ---
PT RESTING EYES CLOSED. RESPIRATIONS 12. CALL LIGHT WITH IN REACH.
--- NOTE | 2025-02-20 06:44 | NUR ---
ASSESSMENT COMPLETE. JUANA CARE PROVIDED AND PUREWICK REPLACED. ADMINISTERED OXYCODONE 5MG FOR 7/10 PAIN LOCATED IN LOWER BACK AND URETHRAL AREA. CALL LIGHT AND PERSONAL BELONGINGS WITH IN REACH. PT HAS NO FURTHER NEEDS AT THIS TIME.
--- NOTE | 2025-02-20 07:40 | NUR ---
REPORT RECEEIVED FROM KIAH JACOBSON. PT LAYING IN BED, CALL LIGHT WITHIN REACH, NO REQUESTS AT THIS TIME.
[2025-02-20 08:15] LABS: BASOPHILS 0.5 % (0.1-1.2); EOSINOPHILS 8.7 % (0.7-5.8); LYMPHOCYTES 20.7 % (19.3-51.7); MCH 24.7 PG (25.6-32.2); MCHC 29.4 g/dL (32.2-35.5); MCV 84.0 fL (79.4-94.8); MONOCYTES 12.1 % (4.7-12.5); NEUTROPHILS 54.7 % (34.0-71.1); RBC 3.32 M/uL (3.93-5.22)
[2025-02-20 08:31] LABS: ALT (SGPT) 10.0 U/L (14-59); AST (SGOT) 12.0 U/L (15-37); GLOMERULAR FILTRATION RATE,EST 21.0 mL/min (>60); PROTEIN, TOTAL 6.3 g/dL (6.4-8.2); UREA NITROGEN 29.0 mg/dL (7-18)
--- NOTE | 2025-02-20 08:32 | NUR ---
PT REPOSITIONED TO SITTING UP IN BED FOR BREAKFAST. PT C/O PAIN TO ABD, GROIN, AND BACK 01/04. PAIN MED ADMINISTERED ORDERED. CALL LIGHT WITHIN REACH. NO OTHER REQUESTS AT THIS TIME.
--- NOTE | 2025-02-20 09:24 | NUR ---
PATIENT FINISHED BREAKFAST. PATIENT IS LAYING UP IN BED. ORAL CARE DONE BY PATIENT. VITALS SIGNS AND I&O'S TAKEN BY POWER BARKER OPERATOR'S ROMARIO AND JEFF. CALL LIGHT WITHIN REACH AND NO FURTHER NEEDS AT THIS TIME.
--- NOTE | 2025-02-20 09:26 | NUR ---
Spoke with Petra. She and her brother are living at [facility]. She feels things are going well. She denies any needs and plans on return to [place] on Dc.
--- NOTE | 2025-02-20 09:35 | NUR ---
PT NOT AVAILABLE FOR VISIT. PROVIDED PRAYER.
[2025-02-20] MEDS ORDERED: FUROSEMIDE 40 MG/4 ML VIAL IV ONE (09:45)
--- NOTE | 2025-02-20 09:50 | NUR ---
PT STATES PAIN HAS DECREASED TO 6/10 AND IS TOLERABLE AT THIS TIME. PT IS WATCHING TV AND PLAYING CARDS. CALL LIGHT WITHIN REACH, NO REQUESTS AT THIS TIME.
--- NOTE | 2025-02-20 11:13 | NUR ---
PT RESTING IN BED WATCHING TV AND PLAYING CARDS. PT REQUESTS PAIN MED FOR PAIN 12/05. MED ADMINISTERED ORDERED. CALL LIGHT WITHIN REACH.
[2025-02-20] MEDS ORDERED: MAGNESIUM SULFATE 2 GM/50 ML BAG IV ONE (11:30)
--- NOTE | 2025-02-20 11:40 | NUR ---
PT/OT IN ROOM WORKING WITH PATIENT. PT TRANSFERRED TO CHAIR WITH CHAIR ALARM ON AND CALL LIGHT WITHIN REACH.
--- NOTE | 2025-02-20 12:06 | NUR ---
PT SITTING UP IN BED EATING LUNCH. PT STATES PAIN IS 6/10, BUT IS TOLERABLE AT THIS TIME. CALL LIGHT WITHIN REACH.
--- NOTE | 2025-02-20 15:10 | NUR ---
PT BATHED, JUANA CARE DONE, AND PUREWICK CHANGED. PT TOLERATED WELL. PT REPOSITIONED ON L) SIDE. PT WATCHING TV, CALL LIGHT WITHIN REACH.
--- NOTE | 2025-02-20 16:44 | NUR ---
PT RESTING IN BED, STATES HAS INCREASED TO 02/04. MEDICATIONS GIVEN ORDERED. CALL LIGHT WITHIN REACH.
--- NOTE | 2025-02-20 17:06 | NUR ---
PT REPOSITIONED TO SITTING UP IN BED TO EAT DINNER. PT HAS NO ADDITIONAL REQUESTS AT THIS TIME. CALL LIGHT WITHIN REACH.
--- NOTE | 2025-02-20 18:32 | NUR ---
PT SITTING UP IN BED TALKING ON THE PHONE AND WATCHING TV. CALL LIGHT WITHIN REACH.
--- NOTE | 2025-02-20 23:24 | NUR ---
IN TO ADMINISTER ANTIBIOTICS. PT REQUESTS PAIN MEDICATION FOR HER LOW BACK AND URETHRAL PAIN. PT ALSO REPORTS HEADACHE WHICH SHE DESCRIBES ALL OVER HER HEAD. ADMINISTERED TYLENOL 650MG AND OXYCODONE 5MG. PT HAS NO FURTHER NEEDS AT THIS TIME. CALL LIGHT WITH IN REACH.
[2025-02-21] VITALS (10 sets, daily range): BP systolic 113–137; BP diastolic 63–83
--- NOTE | 2025-02-21 00:17 | NUR ---
PT RESTING EYES CLOSED. BREATHING EVEN. CALL LIGHT WITH IN REACH.
--- NOTE | 2025-02-21 02:07 | NUR ---
PT RESTING EYES CLOSED. CALL LIGHT WITH IN REACH.
--- NOTE | 2025-02-21 03:44 | NUR ---
PT RESTING EYES CLOSED. CALL LIGHT WITH IN REACH.
[2025-02-21 05:44] LABS: BASOPHILS 0.4 % (0.1-1.2); EOSINOPHILS 9.4 % (0.7-5.8); LYMPHOCYTES 21.5 % (19.3-51.7); MCH 25.6 PG (25.6-32.2); MCHC 30.3 g/dL (32.2-35.5); MCV 84.4 fL (79.4-94.8); MONOCYTES 11.5 % (4.7-12.5); NEUTROPHILS 53.4 % (34.0-71.1); RBC 3.01 M/uL (3.93-5.22)
[2025-02-21 06:01] LABS: GLOMERULAR FILTRATION RATE,EST 21.0 mL/min (>60); UREA NITROGEN 27.0 mg/dL (7-18)
--- NOTE | 2025-02-21 06:18 | NUR ---
ASSESSMENT COMPLETE. PUREWICK REPLACED. PT RESTING IN BED. CALL LIGHT AND PERSONAL BELONGINGS WITH IN REACH. PT HAS NO NEEDS AT THIS TIME.
--- NOTE | 2025-02-21 07:10 | NUR ---
REPORT RECEIVED FROM KIAH JACOBSON. PT AWAKE IN BED WATCHING TV. NO REQUESTS AT THIS TIME. CALL LIGHT WITHIN REACH.
--- NOTE | 2025-02-21 08:08 | NUR ---
PATIENT IN BED AT THIS TIME. AIR CHIEF MARSHAL CHARTED BLOOD SUGAR. CALL LIGHT WITHIN REACH, NO FURTHER NEEDS.
--- NOTE | 2025-02-21 08:55 | NUR ---
PT REPOSITIONED AFTER BREAKFAST. NO REQUESTS AT THIS TIME. CALL LIGHT WITHIN REACH
--- NOTE | 2025-02-21 09:43 | NUR ---
pt to nuc med via bed.
--- NOTE | 2025-02-21 10:55 | NUR ---
pt back to room from [facility]. call light within reach and no requests at this time.
--- NOTE | 2025-02-21 11:14 | NUR ---
PATIENT IN BED AT THIS TIME. PHLEBOTOMIST MEDICAL LAB ASSISTANT ASSISTED PATIENT IN ROLLING AND THIS PHLEBOTOMIST MEDICAL LAB ASSISTANT CHANGED PATIENTS BRIEF. PHLEBOTOMIST MEDICAL LAB ASSISTANT ALSO PROVIDED PATIENT WITH NEW PUREWICK AT 1100. CALL LIGHT WITHIN REACH, NO FURTHER NEEDS AT THIS TIME.
--- NOTE | 2025-02-21 12:21 | NUR ---
PT SITTING UP IN CHAIR EATING LUNCH. CALL LIGHT WITHIN REACH. NO REQUESTS AT THIS TIME.
--- NOTE | 2025-02-21 13:53 | NUR ---
UR CONCURRENT REVIEW: [facility] [place] CONSINUES TO MEET INPATIENT WITH ADDITION IF NEW UTI DIAGNOSIS [facility] INPT 02/14/25 @ 1952 UPDATED CLINICALS FAXED TO [facility] FOR REVIEW DISCHARGE TO HOME WHEN MEDICALLY STABLE. AWAITING NUC MED SCAN 02/26/25
[2025-02-21] MEDS ORDERED: OXYCODONE HCL 5 MG TAB PO PRN (14:00)
--- NOTE | 2025-02-21 14:12 | NUR ---
Spoke with ePtra. She has returned from her lasix test. She states she does not feel well and cont. to have abd. pain. She denies needs. Rn in the room.
--- NOTE | 2025-02-21 14:12 | NUR ---
CASE MANAGEMENT IN TO VISIT WITH PT.
--- NOTE | 2025-02-21 15:21 | NUR ---
PT TO SHOWER CHAIR VIA [facility] SHOWER. ROMARIO REILLY ASSISTING.
--- NOTE | 2025-02-21 16:15 | NUR ---
PT BACK TO BED FROM SHOWER VIA PANCHO. PT'S DRSG TO B) BUTTOCKS CHANGED ORDERED. PT'S DRSG TO UNDERSIDE OF L) BREAST CHANGED AFTER CLEANING WITH WOUND SENIOR MECHANICAL DESIGNER. PT TOLERATED WELL. NEW PUREWICK PLACED. NO OTHER REQUESTS AT THIS TIME. CALL LIGHT WITHIN REACH.
--- NOTE | 2025-02-21 16:46 | NUR ---
SCDs ON RLE ORDERED.
--- NOTE | 2025-02-21 17:25 | NUR ---
PT SITTING UP IN BED WATCHING TV AND EATING DINNER. NO REQUESTS AT THIS TIME. CALL LIGHT WITHIN REACH.
--- NOTE | 2025-02-21 18:25 | NUR ---
DR AGGARWAL IN PT'S ROOM SPEAKING ON THE PHONE WITH THE PT AND PT'S BROTHER REQUESTED BY THE PT.
--- NOTE | 2025-02-21 18:53 | NUR ---
URINE SAMPLE SENT TO LAB ORDERED.
[2025-02-21 19:00] LABS: SODIUM, RANDOM URINE 111.0 mmol/L (NOT ESTABLISHED)
--- NOTE | 2025-02-21 19:14 | NUR ---
PATIENT BRUSHED HER TEETH.
--- NOTE | 2025-02-21 19:34 | NUR ---
REPORT RECEIVED FROM DAY SHIFT RN. PT LYING IN RESTING WITH EYES CLOSED. AWAKENS EASILY. REQUESTING PRN FOR PAIN. NO OTHER NEEDS. WHITE BOARD UPDATED. CALL LIGHT IN REACH.
--- NOTE | 2025-02-21 20:08 | NUR ---
PT REPORTS RIGHT SIDE/LOW BACK/HAND PAIN /10 AND HEARTBURN. PRN'S ADMIN PER EMAR. WARM TEA PROVIDED. NO FURTHER NEEDS.
--- NOTE | 2025-02-21 21:50 | NUR ---
EVENING ASSESSMENT COMPLETE. SCHEDULED MEDS ADMIN PER EMAR. IV ABX INFUSING WNL. NEW PUREWICK PLACED AFTER JUANA CARE. PT VOIDING QS CLOUDY YELLOW URINE. VS AND I&O OBTAINED. LEFT UPPER ARM IV DC'D D/T REDNESS AND TENDERNESS. TIP INTACT. VS AND I&O OBTAINED. 2PA TO REPOSITION IN BED WITH PILLOWS. PT DENIES FURTHER NEEDS. CALL LIGHT IN REACH.
--- NOTE | 2025-02-21 23:38 | NUR ---
PT RESTING IN BED WITH EYES CLOSED. RESPIRATIONS EVEN. CALL LIGHT IN REACH.
--- NOTE | 2025-02-21 23:56 | NUR ---
Pt report received from INDIRA Stovall..
[2025-02-22 05:38] LABS: BASOPHILS 0.6 % (0.1-1.2); EOSINOPHILS 10.1 % (0.7-5.8); LYMPHOCYTES 24.3 % (19.3-51.7); MCH 25.2 PG (25.6-32.2); MCHC 29.7 g/dL (32.2-35.5); MCV 84.9 fL (79.4-94.8); MONOCYTES 8.5 % (4.7-12.5); NEUTROPHILS 52.6 % (34.0-71.1); RBC 3.05 M/uL (3.93-5.22)
[2025-02-22 05:51] LABS: GLOMERULAR FILTRATION RATE,EST 22.0 mL/min (>60); PHOSPHORUS, INORGANIC 5.2 mg/dL (2.5-4.9); UREA NITROGEN 29.0 mg/dL (7-18)
[2025-02-22 05:52] VITALS: BP 116/65
[2025-02-22 06:02] VITALS: BP 116/65
--- NOTE | 2025-02-22 07:25 | NUR ---
RECIEVED SHIFT REPORT. PT RESTING IN BED, BREATHING EVEN AND UNLABORED. CALL LIGHT IN REACH.
[2025-02-22] MEDS ORDERED: MAGNESIUM OXIDE 400 MG TABLET PO ONE (09:00)
--- NOTE | 2025-02-22 09:30 | NUR ---
Pt discussed in am meeting and will dc today. Notified Andrew at [facility]. She ok with any return time I can schedule the [facility]. Attempted to contact the [facility] and no answer.
--- NOTE | 2025-02-22 09:30 | NUR ---
MORNING ASSESSMENT COMPLETE. PT IS AWAKE IN BED, REQUESTING PAIN MEDICATION FOR GENERALIZED, ADMINISTERED (PER EMAR). DRESSING INTACT, DENIES NEEDS. CALL LIGHT IN REACH.
[2025-02-22 09:40] VITALS: BP 137/74
[2025-02-22 09:52] VITALS: BP 137/74
--- NOTE | 2025-02-22 09:52 | NUR ---
PATIENT IN BED AT THIS TIME. WOOD GRINDER CHARTED VITALS AND I&O'S. CALL LIGHT WITHIN REACH, NO FURTHER NEEDS.
--- NOTE | 2025-02-22 10:30 | NUR ---
I was able to reach [facility] at the van transport. Pt scheduled for 1:45. They will use our . Charge nurse and Dr. estrada. Orders printed for SNF.
--- NOTE | 2025-02-22 11:01 | NUR ---
PT REQUESTING PAIN MEDICATION FOR 7/10 ABD PAIN (SEE EMAR) NO FURTHER NEEDS AT THIS TIME.
[2025-02-22] MEDS ORDERED: BACTRIM DS TAB1 EACH PO (12:40)
[2025-02-22] MEDS ORDERED: FLUCONAZOLE200 MG PO (12:42)
--- NOTE | 2025-02-22 14:04 | NUR ---
REPORT CALLED TO [facility]. SPOKE TO INDIRA HERNANDEZ. ALL QUESTIONS ANSWERED.
--- NOTE | 2025-02-22 16:12 | NUR ---
URINE CULTURE AND SENSITIVITY SENT TO [facility].
--- NOTE | 2025-02-22 18:21 | EKG ---
[facility] [address] [facility] [place] [address] Signed Normal sinus rhythm Low voltage QRS Borderline ECG When compared with ECG of 14-FEB-2025 17:49, No significant change was found Confirmed by Farhat Aggarwal DO ([id number]) on 02/22/2025 6:21:12 PM Electronically Signed By: FARHAT AGGARWAL DO 02/22/251820 PATIENT NAME: CHINOROMYPHOENIX Electrocardiogram DATE OF : 69 PHYSICIAN: FARHAT AGGARWAL DO REPORT #: [id number] REPORT IS CONFIDENTIAL AND NOT TO BE RELEASED WITHOUT AUTHORIZATION
[2025-02-23 12:25] LABS: CREATININE,URINE - PER VOLUME 15 mg/dL (()); HOURS COLLECTED Random hr (()); URINE UREA NITROGEN - MG/DL 92 mg/dL (())
== END 2025-02-22 13:37 | DRG 689 ==
LOC: ED 17:31 → MS 19:52
PROVIDERS: Emergency Medicine; Student in an Organized Health Care Education/Training Program; ADMIT Family Medicine; ATTEND Family Medicine
DX: N13.6 Pyonephrosis (principal); J18.9 Pneumonia, unspecified organism; I20.0 Unstable angina; Z68.42 Body mass index [BMI] 45.0-49.9, adult; N17.9 Acute kidney failure, unspecified; E11.22 Type 2 diabetes mellitus with diabetic chronic kidney disease; I12.9 Hypertensive chronic kidney disease with stage 1 through stage 4 chronic kidney disease, or unspecified chronic kidney disease; N18.9 Chronic kidney disease, unspecified; E03.9 Hypothyroidism, unspecified; G25.81 Restless legs syndrome; N30.90 Cystitis, unspecified without hematuria; E11.40 Type 2 diabetes mellitus with diabetic neuropathy, unspecified; J45.909 Unspecified asthma, uncomplicated; G89.29 Other chronic pain; M54.9 Dorsalgia, unspecified; M25.551 Pain in right hip; E66.01 Morbid (severe) obesity due to excess calories; E83.42 Hypomagnesemia; E11.649 Type 2 diabetes mellitus with hypoglycemia without coma; R79.1 Abnormal coagulation profile; Z88.0 Allergy status to penicillin; Z88.8 Allergy status to other drugs, medicaments and biological substances; Z88.1 Allergy status to other antibiotic agents; Z88.7 Allergy status to serum and vaccine; Z87.891 Personal history of nicotine dependence; Z89.512 Acquired absence of left leg below knee; Z79.890 Hormone replacement therapy; Z79.84 Long term (current) use of oral hypoglycemic drugs; Z79.82 Long term (current) use of aspirin
CPT/HCPCS: 36415; 51702; 71045; 74176; 78709; 80048; 80053; 81001; 82550; 82570; 83036; 83605; 83735; 84100; 84300; 84484; 84550; 85025; 85379; 87040; 87077; 87088; 87186; 87502; 93005; 93010; 94640; 94667; 94668; 94760; 94799; 97162; 97167; 97530; 99285-25; A4311; A9270; A9562; J0780; J1171; J1644; J1815; J1938; J1956; J2185; J2405; J3475; J7030; J7070; U0002